=== PATIENT | male | born 1975 | race Caucasian/White ===

== ENCOUNTER → 2022-05-25 | Outpatient (CLI) | payer MEDICAID, SELFPAY ==
--- NOTE | 2022-05-25 08:06 | CPS ---
ATTEMPTED DLCO X SEVERAL ATTEMPTS BUT PT UNABLE TO PERFORM PROPER TECHNIQUE.
--- NOTE | 2022-05-25 12:24 | PFT ---
INTRODUCTION: The patient is a 46-year-old male that presents for pulmonary function studies secondary to a diagnosis of COPD. Respiratory therapy reported that the patient had difficulty with testing. Multiple attempts were made to obtain DLCO. However, that it was unable to be obtained. INTERPRETATION: Forced expiration spirometry demonstrated no evidence of a large airways obstructive ventilatory defect with a postbronchodilator FEV1/FVC of 73%. Spirograms are of suboptimal quality and terminate prior to 6 seconds, which could underestimate FVC. Body plethysmography was performed and revealed an elevated RV to 173% of predicted, indicative of underlying air trapping. Diffusing capacity was unable to be obtained. IMPRESSION: No obstruction based on spirometric values. However, there is evidence of air trapping. Diffusing capacity was unable to be obtained. Due to patient difficulty with testing, results should be viewed with caution.
== END | disposition home or self-care (01) ==
LOC: PSN 07:06
PROVIDERS: PCP Family Medicine; Referring Provider Internal Medicine; Visit Provider Internal Medicine
DX: J44.9 Chronic obstructive pulmonary disease, unspecified (principal); F17.200 Nicotine dependence, unspecified, uncomplicated
CPT/HCPCS: 94060; 94726

== ENCOUNTER → 2022-06-12 | Outpatient (CLI) | payer MEDICAID, SELFPAY | END | disposition home or self-care (01) | LOC: SL 20:08 | PROVIDERS: PCP Family Medicine; Referring Provider Internal Medicine; Visit Provider Internal Medicine | DX: G47.10 Hypersomnia, unspecified (principal) | CPT/HCPCS: 95810 ==

== ENCOUNTER → 2022-06-16 | Outpatient (CLI) | payer MEDICAID, SELFPAY ==
--- NOTE | 2022-06-16 19:10 | CT_ITS ---
STUDY: CTA HEAD AND NECK WITH CONTRAST REASON FOR EXAM: Male, 46 years old. Hemoptysis with negative bronchoscopy RADIATION DOSAGE (If Supplied By Facility): CTDIvol = ( 24.67 ) mGy, DLP = ( 1696.35 ) mGycm TECHNIQUE: CT angiography was performed with a multi-detector CT scanner. Data acquisition was obtained from the skull base through the vertex following intravenous administration of IV 75mL Isovue-370. MIP images were reconstructed from the axial data set. Post-processing of the angiographic images was performed, with multiplanar reformation and 3D reconstruction. Individualized dose optimization techniques were used for this CT. COMPARISON: No relevant priors. FINDINGS: Normal bilateral petrous carotid arteries. Normal right cavernous carotid artery with a normal supraclinoid bifurcation. Normal left cavernous carotid artery with a normal supraclinoid bifurcation. Normal right A1 segments of the anterior cerebral artery. Normal left A1 segments of the anterior cerebral artery. Normal intact anterior communicating artery (ACOM). Normal bilateral A2 segments of the anterior cerebral arteries. Normal right M1 and M2 segments of the middle cerebral arteries, with a normal M1 bifurcation. Normal left M1 and M2 segments of the middle cerebral arteries, with a normal M1 bifurcation. There is a persistent origin of the right posterior cerebral artery with absence of the posterior communicating artery (PCOM). Normal left posterior communicating artery (PCOM). Normal right vertebral artery. Hypoplastic left vertebral artery terminates as the left posterior inferior cerebellar artery. Normal basilar artery with a normal basilar bifurcation. The visualized bilateral superior cerebellar (SCA) arteries are normal. Normal bilateral P1, P2 and visualized P3 segments of the posterior cerebral arteries. There is no demonstrated aneurysm of the [place]. There is no demonstrated abnormality of the visualized brain. AORTIC ARCH: There is a bovine origin of the great vessels arising from the aortic arch with a common origin of the brachiocephalic and left common carotid artery. Normal origin of the left subclavian artery. Normal origins of the brachiocephalic, left common carotid, and left subclavian arteries. RIGHT CAROTID ARTERIES: Normal right common carotid artery (CCA). There is mild atherosclerotic plaque formation with minimal narrowing of the right carotid bulb. Normal origin of the right internal carotid (ICA) artery without a hemodynamically significant stenosis. Normal visualized cervical portion of the right internal carotid artery. Normal origin of the right external carotid artery (ECA). LEFT CAROTID ARTERIES: Normal left common carotid artery (CCA). There is mild atherosclerotic plaque formation with minimal narrowing of the left carotid bulb. Normal origin of the left internal carotid (ICA) artery without a hemodynamically significant stenosis. Normal visualized cervical portion of the left internal carotid artery. Normal origin of the left external carotid artery (ECA). VERTEBRAL ARTERIES: There is enhancement within the bilateral vertebral arteries with a small left vertebral artery, and a dominant right vertebral artery. CT/CTA Head AND Neck W/ Contrast IMPRESSION: Normal CTA Head and neck with contrast. Electronically Signed: Randy Mercer MD at 23:49 EDT ,
--- NOTE | 2022-06-16 19:10 | CT_ITS ---
INDICATION: Hemoptysis with negative bronchoscopy EXAMINATION: CT CHEST WITH CONTRAST - CT Chest W/ Contrast Injection TECHNIQUE: Helically acquired images were obtained of the chest following IV contrast. A radiation dose optimization technique was used for this scan. IV Contrast dosage and agent: COMPARISON: None. FINDINGS: LUNGS, PLEURA AND LARGE AIRWAYS: Mild emphysema. No noncalcified nodule or mass. No pleural effusion or thickening. No pneumothorax. THYROID: No thyroid lesions. HEART AND PERICARDIUM: Heart size is normal. No pericardial effusion. VESSELS: Thoracic aorta is not dilated. No aortic dissection. No obvious central pulmonary embolism although this study was not performed with the pulmonary embolism protocol. MEDIASTINUM AND KAMI: No mediastinal or hilar adenopathy. Esophagus is unremarkable. No hiatal hernia. UPPER ABDOMEN: No acute pathology. BONES: No suspicious lytic or blastic abnormality. CT/Chest WITH Contrast IMPRESSION: Mild emphysema without pneumonia, atelectasis, nodule, or mass. Electronically Signed: Randy Mercer MD at 23:41 EDT ,
[2022-06-16 19:41] LABS: EGFR FINGERSTICK > 60.0000 mL/min (>60)
== END | disposition home or self-care (01) ==
LOC: CT 19:09
PROVIDERS: PCP Family Medicine; Referring Provider Internal Medicine; Visit Provider Internal Medicine
DX: R04.2 Hemoptysis (principal); J44.9 Chronic obstructive pulmonary disease, unspecified; F17.200 Nicotine dependence, unspecified, uncomplicated; R06.83 Snoring
CPT/HCPCS: 70496; 70498; 71260; Q9967

== ENCOUNTER → 2022-06-16 | Outpatient (CLI) | payer MEDICAID, SELFPAY | END | disposition home or self-care (01) | LOC: PSN 19:08 | PROVIDERS: PCP Family Medicine; Referring Provider Internal Medicine; Visit Provider Internal Medicine | DX: J44.9 Chronic obstructive pulmonary disease, unspecified (principal) ==

== ENCOUNTER 2022-07-10 09:54 | Emergency (ER) | payer MEDICAID, SELFPAY ==
[2022-07-10 09:55] VITALS: BP 114/76; PULSE 97; RESP 18; TEMP 36.9; O2SAT 98; BMI 31.3
--- NOTE | 2022-07-10 11:30 | EKG12_ITS ---
Test Reason : GENERAL Blood Pressure : / mmHG Vent. Rate : 086 BPM Atrial Rate : 086 BPM P-R Int : 190 ms QRS Dur : 092 ms QT Int : 352 ms P-R-T Axes : 018 048 033 degrees QTc Int : 421 ms Normal sinus rhythm Normal ECG Confirmed by SIOBHAN BUSTILLOS, HENRI ([id number]), associate entertainment editor FAUSTO ARAUJO ([id number]) on 07/12/2022 2:12:32 PM Referred By: Confirmed By:HENRI MCCANN MD
[2022-07-10] MEDS: Ondansetron 4 MG/2 ML Vial IV (11:48)
[2022-07-10] MEDS: 0.9% Normal Saline 1,000 ML 1000 ML IV (11:49)
[2022-07-10 12:00] LABS: Absolute Neutrophil Count 7.6 X10^3/uL (2.0-7.7); Basophil# 0.03 X10^3/uL; Basophil% 0.3 % (0-1); Eosinophil# 0.06 X10^3/uL; Eosinophils% 0.7 % (0-5); Hematocrit 46.5 % (40-54); Hemoglobin 15.8 g/dL (13.0-16.5); Lymphocyte % 7.9 % (19-41); Mean Corpuscular Hgb 30.8 pg (27.0-32.0); Mean Corpuscular Volume 90.6 fL (80-94); Mean Platelet Vol. 8.2 fl (6.2-12.0); Monocyte# 0.45 X10^3/uL; Monocyte% 5.1 % (0-10); NRBC Flagged by Analyzer 0 % (0-5); Neutrophil # 7.57 X10^3/uL (2.7-7.7); Neutrophil % 85.5 % (47-70); Platelet Count 251 K/mm3 (150-450); RBC Distribution Width CV 13.7 % (11.6-14.6); RBC Distribution Width SD 45.4 fl (35.1-43.9); Red Blood Count 5.13 M/mm3 (4.6-6.2); White Blood Count 8.9 K/mm3 (4.4-11.0)
--- NOTE | 2022-07-10 12:15 | RAD_ITS ---
STUDY: X-RAY CHEST REASON FOR EXAM: Male, 47 years old. Fever and cough TECHNIQUE: Single AP portable view of the chest. COMPARISON: None. FINDINGS: The lungs are clear and expanded. There is no demonstrated pleural abnormality. Normal size heart. Normal mediastinum and shorty. Normal visualized pulmonary arteries. Normal visualized aortic arch and descending thoracic aorta. Normal visualized thoracic spine. Normal visualized ribs, clavicles, and shoulders. There is no demonstrated abnormality of the visualized soft tissue structures of the upper abdomen. RAD/Chest 1 View (Portable) IMPRESSION: No acute pulmonary process Electronically Signed: Shelton Ramon MD at 13:28 EDT ,
[2022-07-10 12:18] LABS: AST(SGOT) 19 U/L (15-37); Alanine Aminotransfer ALT/SGPT 32 U/L (16-61); Albumin, Serum 3.7 g/dL (3.2-5.0); Alkaline Phosphatase 94 U/L (45-117); Anion Gap 7 (5-15); BUN 17 mg/dL (7-18); Bilirubin, Direct 0.25 mg/dL (0.00-0.30); Calcium,Total 8.8 mg/dL (8.5-10.1); Chloride 102 mmol/L (98-107); Creatinine, Serum 1.21 mg/dL (0.70-1.30); EST Glomerular Filtration Rate 68 mL/min (>60); Est Glom Filt Rate - Afr Amer 82 mL/min (>60); Estimated Creatinine Clearance 81.95 ml/min; Globulin 3.8 g/dL (2.2-4.2); Glucose 106 mg/dL (74-106); Lipase 25 U/L (13-75); Potassium 3.5 mmol/L (3.5-5.1); Protein, Total 7.5 g/dL (6.4-8.2); Sodium Level 136 mmol/L (136-145); Troponin-I HS 3 pg/mL (3.0-78.0)
[2022-07-10 13:00] VITALS: RESP 18
[2022-07-10] MEDS: 0.9% Normal Saline 1,000 ML 150 ML IV (13:46)
[2022-07-10] MEDS: Ketorolac 30 MG/ML Syringe IV (14:13)
--- NOTE | 2022-07-10 14:49 | EX.ED.DYSGE1 ---
HPI History of Present Illness Chief Complaint: Nausea/Vomiting Informant: patient Onset/Context/Timing Onset: Yesterday Narrative Narrative: Patient presents secondary to nausea and vomiting. He states yesterday during the day he had left upper chest pain with shortness of breath. He states later yesterday afternoon he started with nausea and vomiting at that time his left upper chest pain seem to dissipate. He now has nausea, vomiting, and diarrhea that has been constant since yesterday. He states he has pain all over his body and is concerned he is dehydrated. 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) Essential hypertension Family history of ischemic heart disease and other diseases of the circulatory system GERD (gastroesophageal reflux disease) Hemoptysis Hyperlipidemia Nicotine addiction Nicotine dependence, cigarettes, uncomplicated Noncompliance with medications Old myocardial infarction Pneumonia Presence of stent in coronary artery (~02/01/22) Primary snoring Stroke Unspecified systolic (congestive) heart failure Home Medications albuterol sulfate 2.5 mg/3 mL (0.083 %) solution for nebulization 2.5 mg inhalation Q4H PRN 05/22/22 [History Last Taken Unknown] albuterol sulfate 90 mcg/actuation aerosol inhaler 2 puff inhalation Q4H PRN 05/22/22 [History Last Taken Unknown] aspirin 81 mg tablet,delayed release 81 mg PO DAILY 05/22/22 [History Last Taken Unknown] budesonide 0.5 mg/2 mL suspension for nebulization 0.5 mg inhalation BID 05/22/22 [History Last Taken Unknown] clopidogrel 75 mg tablet 75 mg PO DAILY 05/22/22 [History Last Taken Unknown] magnesium oxide 250 mg PO DAILY 05/22/22 [History Last Taken Unknown] nicotine 10 mg inhalation cartridge (Nicotrol) 1 inh inhalation ONCE PRN nicotine cravings #168 ea 05/22/22 [Rx Last Taken Unknown] omeprazole 40 mg capsule,delayed release 40 mg PO DAILY 05/22/22 [History Last Taken Unknown] rosuvastatin 10 mg tablet 10 mg PO DAILY 05/22/22 [History Last Taken Unknown] carvedilol phosphate 20 mg capsule,[id number] multiphase 20 mg PO DAILY 06/15/22 [History Last Taken Unknown] hydrochlorothiazide 25 mg tablet 25 mg PO DAILY #30 tabs 06/20/22 [Rx Last Taken Unknown] dicyclomine 20 mg tablet 20 mg PO BID PRN abdominal pain #14 tabs 07/10/22 [Rx Last Taken Unknown] ondansetron 4 mg disintegrating tablet 4 mg PO Q8H PRN PRN Nausea #10 tabs 07/10/22 [Rx Last Taken Unknown] Allergy/AdvReac Type Severity Reaction Status Date / Time amlodipine AdvReac Intermediate Severe Verified 06/20/22 11:30 headache Family History Mother Cancer Ovarian Grandmother Cancer breast cancer. Heart disease Myocardial infarction Grandfather Cancer Lung Fibromyalgia Father Cancer Surgical History H/O arthroscopic knee surgery H/O hand surgery H/O inguinal hernia repair History of left heart catheterization (LHC) (~08/03/16) Presence of coronary angioplasty implant and graft (~02/01/22) Social History Smoking Status: Current every day smoker tobacco type: cigarettes alcohol intake: never substance use type: does not use caffeine: Yes (8-12 servings per day) ROS ROS ED Constitutional Constitutional ED: Denies chills or fever(s) Eyes Eyes: Denies change in vision or discharge from eye(s) ENT ENT ED: Denies discharge from eye(s), rhinorrhea or sore throat Cardiovascular Cardiovascular: Reports chest pain; Denies palpitations Respiratory/Chest Respiratory/Chest: Reports dyspnea; Denies cough Gastrointestinal Gastrointestinal: Reports abdominal pain, diarrhea, nausea and vomiting Genitourinary Genitourinary ED: Denies dysuria Musculoskeletal Musculoskeletal: Reports myalgias; Denies back pain or extremity pain Integumentary Denies Abrasions or rash Neurologic Neurologic: Reports headache(s); Denies weakness Psychiatric Psychiatric: Denies anxiety or depression Allergic/Immunologic Allergic/Immunologic ED: Denies lip swelling or urticaria EXAM Physical Exam Const Vital Signs: 07/10/22 09:55 Temperature 98.5 F Temperature Source Temporal Pulse Rate 97 Respiratory Rate 18 Blood Pressure 114/76 Blood Pressure Mean 88 Pulse Ox 98 Oxygen Delivery Method Room Air Positive well nourished and well developed General Appearance ED: well developed HEENT Reports dry mucous membranes Mouth ED: Yes dry mucous membranes Mouth: dry mucous membranes Eyes EOMs intact bilaterally Chest Wall inspection of chest normal and palpation of chest normal Resp normal respiratory effort and clear to auscultation bilaterally Cardio regular rate and regular rhythm GI GI Narrative: Abdomen soft and nondistended. Mild diffuse tenderness. No guarding or rebound. Hypoactive bowel sounds. Extremity normal to inspection Neuro oriented x3 and no sensory deficits noted Motor Exam: strength 5/5 throughout Psych mental status grossly normal MDM MDM MDM Narrative Medical decision making narrative: Patient was given IV fluids along with Zofran. He was initially ordered morphine but declined it. Labwork obtained to evaluate for leukocytosis, anemia, and electrolyte derangement. EKG obtained to evaluate for cardiac arrhythmia/ischemia. Chest x-ray obtained to evaluate for acute lung pathology, cardiac size, or mediastinal abnormality. History & Record Review Discussion w/independent historian: Patient Additional record(s) reviewed:: Prior labs Lab Data Attestation: I reviewed the patient's lab results. Labs: Laboratory Results - last 24 hr 07/10/22 07/10/22 11:45 11:45 WBC 8.9 RBC 5.13 Hgb 15.8 Hct 46.5 MCV 90.6 MCH 30.8 MCHC 34.0 RDW Std Deviation 45.4 H RDW Coeff of Zuly 13.7 Plt Count 251 MPV 8.2 Immature Gran % (Auto) 0.500 Neut % (Auto) 85.5 H Lymph % (Auto) 7.9 L [place] % (Auto) 5.1 Eos % (Auto) 0.7 Baso % (Auto) 0.3 Absolute Neuts (auto) 7.6 Absolute Lymphs (auto) 0.70 L Nucleated RBC % 0 Sodium 136 Potassium 3.5 Chloride 102 Carbon Dioxide 27.0 Anion Gap 7 BUN 17 Creatinine 1.21 Estim Creat Clear Calc 81.95 Est GFR (MDRD) Af Amer 82 Est GFR (MDRD) Non-Af 68 BUN/Creatinine Ratio 14.0 Glucose 106 Calcium 8.8 Total Bilirubin 1.30 H Direct Bilirubin 0.25 AST 19 ALT 32 Alkaline Phosphatase 94 Troponin I High Sens 3 Total Protein 7.5 Albumin 3.7 Globulin 3.8 Lipase 25 Radiography Chest X-Ray - ED: 1 View, Read by ED Physician and No Acute Disease Diagnostic Testing: Clinical Impression(s) from Imaging Studies Chest X-Ray 07/10/22 12:15 IMPRESSION: No acute pulmonary process Electronically Signed: Shelton Ramon MD at 13:28 EDT Reading Location ID and State: [facility] / [place] , Service support , EKG Initial EKG: Attestation: I personally reviewed and interpreted this EKG as follows: Interpretation: Sinus Rhythm (Sinus 86 with no acute ischemia.) Treatment and Re-Evaluation :: CBC is unremarkable with normal white count. Hemoglobin is normal at 15.8. He does have a slight left shift with 85% neutrophils. Chemistry studies reveal a creatinine of 1.21. LFTs reveal total bili 1.30, otherwise values are normal. Lipase is 25. Troponin is normal at 3. After lab work does return with normal renal function patient is given a dose of Toradol. On repeat evaluation patient does feel improved. Prescription for Zofran and Bentyl will be sent to the pharmacy for him. Return instructions are given. Discharge Plan Triage Chief Complaint: Nausea/Vomiting ED Provider: Yanet Shea Dx/Rx/DC Orders Clinical Impression: Gastroenteritis Instructions: ED Gastroenteritis, Viral (Adult) Prescriptions: New ondansetron 4 mg tablet,disintegrating 4 mg PO Q8H PRN PRN (Reason: Nausea) Qty: 10 0RF dicyclomine 20 mg tablet 20 mg PO BID PRN (Reason: abdominal pain) Qty: 14 0RF No Action omeprazole 40 mg capsule,delayed release(DR/EC) 40 mg PO DAILY clopidogrel 75 mg tablet 75 mg PO DAILY rosuvastatin 10 mg tablet 10 mg PO DAILY albuterol sulfate 90 mcg/actuation HFA aerosol inhaler 2 puff inhalation Q4H PRN albuterol sulfate 2.5 mg /3 mL (0.083 %) solution for nebulization 2.5 mg inhalation Q4H PRN budesonide 0.5 mg/2 mL suspension for nebulization 0.5 mg inhalation BID magnesium oxide 250 mg magnesium tablet 250 mg PO DAILY aspirin 81 mg tablet,delayed release (DR/EC) 81 mg PO DAILY Nicotrol 10 mg cartridge 1 inh inhalation ONCE PRN (Reason: nicotine cravings) Qty: 168 8RF carvedilol phosphate 20 mg capsule, ER multiphase 24 hr 20 mg PO DAILY Rx Instructions: must administer with a meal/food hydrochlorothiazide 25 mg tablet 25 mg PO DAILY Qty: 30 11RF Primary Care Provider: Care Physician,No Primary Referrals: Denise Banks, [Med Staff - Industrial Health And Safety Professor] - As Needed Care Physician,No Primary [Primary Care Provider] - Disposition Disposition: Home, Self Care
[2022-07-10 15:03] VITALS: RESP 18
== END 2022-07-10 15:15 | disposition home or self-care (01) ==
PROVIDERS: Emergency Provider Emergency Medicine; Visit Provider Emergency Medicine
DX: K52.9 Noninfective gastroenteritis and colitis, unspecified (principal); J43.9 Emphysema, unspecified; I10 Essential (primary) hypertension; I25.10 Atherosclerotic heart disease of native coronary artery without angina pectoris; Z79.899 Other long term (current) drug therapy; F17.210 Nicotine dependence, cigarettes, uncomplicated; R07.9 Chest pain, unspecified; R06.00 Dyspnea, unspecified
CPT/HCPCS: 71045; 80048; 80076; 83690; 84484; 85025; 93005; 96361; 96374; 96375; 99284; J7030; J2405

== ENCOUNTER → 2022-07-10 | Outpatient (CLI) | payer MEDICAID, SELFPAY | END | disposition home or self-care (01) | LOC: SL 09:57 | PROVIDERS: PCP Family Medicine; Visit Provider Internal Medicine | DX: G47.10 Hypersomnia, unspecified (principal); R06.83 Snoring ==

== ENCOUNTER → 2022-07-12 | Outpatient (CLI) | payer MEDICAID, SELFPAY ==
[2022-07-12 15:31] LABS: Anion Gap 7 (5-15); BUN 12 mg/dL (7-18); Calcium,Total 9.5 mg/dL (8.5-10.1); Chloride 106 mmol/L (98-107); EST Glomerular Filtration Rate 69 mL/min (>60); Est Glom Filt Rate - Afr Amer 83 mL/min (>60); Glucose 98 mg/dL (74-106); Potassium 3.4 mmol/L (3.5-5.1); Sodium Level 140 mmol/L (136-145)
== END | disposition home or self-care (01) ==
LOC: LAB 13:26
PROVIDERS: Referring Provider Internal Medicine Cardiovascular Disease; Visit Provider Internal Medicine Cardiovascular Disease
DX: I11.0 Hypertensive heart disease with heart failure (principal); I50.20 Unspecified systolic (congestive) heart failure
CPT/HCPCS: 36415; 80048

== ENCOUNTER → 2022-07-18 | Outpatient (CLI) | payer MEDICAID, SELFPAY ==
--- NOTE | 2022-07-18 06:07 | ECHOD_ITS ---
Reason For Study: HEART DISEASE Procedure This was a 2D Doppler, Color Flow transthoracic echocardiogram. Exam performed in department. Left Ventricle Normal size and thickness. The left ventricular ejection fraction is 55 %. Normal diastololic function. Right Ventricle Normal right ventricle. Atria The left and right atria are normal. Mitral Valve The mitral valve is structurally normal. No prolapse or stenosis seen. Tricuspid Valve Trivial tricuspid valve insufficiency. Unable to estimate RV systolic pressure due to insufficient tricuspid regurgitant envelope. Aortic Valve Normal aortic valve. Pulmonic Valve The pulmonic valve is not well visualized. Great Vessels Normal sized aortic root. Pericardium/Pleural No pericardial effusion. MMode/2D Measurements & Calculations LVIDd: 4.9 cm IVSd: 0.90 cm Ao root diam: 3.1 cm LVIDs: 3.7 cm LVPWd: 1.0 cm RVDd: 2.6 cm FS: 25.0 % LAV(MOD-bp): 42.9 ml LVAd ap4: 34.6 cm2 SV(MOD-sp4): 52.1 ml LAV(MOD-bp) Indexed: 19.3 ml/m2 LVLd ap4: 9.2 cm LAV(MOD-sp2): 58.3 ml EDV(MOD-sp4): 108.1 ml LAV(MOD-sp4): 30.2 ml EDV(sp4-el): 110.2 ml LVAs ap4: 22.3 cm2 LVLs ap4: 7.7 cm ESV(MOD-sp4): 56.0 ml ESV(sp4-el): 55.2 ml EF(MOD-sp4): 48.2 % EF(sp4-el): 49.9 % SV(sp4-el): 55.1 ml LA A4 area: 13.9 cm2 LA dimension(2D): 3.0 cm RA A4 area: 14.5 cm2 TAPSE: 2.5 cm Time Measurements MV dec time: 0.20 sec Doppler Measurements & Calculations MV E max dale: 70.1 cm/sec Lat Peak E' [place]: 11.4 cm/sec Med Peak E' [place]: 7.7 cm/sec MV A max dale: 59.2 cm/sec E/E' lat: 6.1 E/E' med: 9.1 MV E/A: 1.2 MV V2 max: 94.8 cm/sec Ao V2 max: 119.1 cm/sec MV max P.6 mmHg MV dec slope: 360.1 cm/sec2 Ao max P.7 mmHg MV V2 mean: 61.3 cm/sec Ao V2 mean: 83.2 cm/sec MV mean P.6 mmHg Ao mean P.1 mmHg MV V2 VTI: 32.0 cm Ao V2 VTI: 25.3 cm AV (velocity ratio): 0.73 LV V1 max: 85.5 cm/sec PA V2 max: 92.4 cm/sec LV V1 max P.9 mmHg PA V2 mean: 59.8 cm/sec LV V1 mean P.6 mmHg LV V1 mean: 58.1 cm/sec LV V1 VTI: 18.6 cm ECHO/Echo Complete Interpretation Summary The left ventricular ejection fraction is 55 %. Ordering Physician: Bria Olsen Referring Physician: LUISA PCP Performed By: Debo Agarwal RCS
--- NOTE | 2022-07-18 09:06 | STRESSREP ---
Stress Test Report Date: 07/18/2022 Procedure: Pharmacologic stress nuclear imaging study Indications: Chest pain Consent: Per the patient Procedure: The patient underwent pharmacologic (Regadenoson 0.4mg ) evaluation with a peak heart rate of 86 beats per minute (50%predicted maximal heart rate) and a peak blood pressure of 124/74 mmHg. The baseline ECG demonstrated normal sinus rhythm. The peak pharmacologic ECG demonstrated no ischemic changes. The patient was initially walked on the treadmill according to the Rito protocol however the test was changed to Lexiscan after he failed to achieve the target heart rate. On the treadmill, he exercised according to the Rito protocol for 2 minutes and 42 seconds achieving a work level of 4.6 METS. The heart rate vinita to 137 bpm representing 79% of the maximal age-predicted heart rate. Resting blood pressure vinita to a maximum of 140/72 mmHg. The protocol was changed to Rito protocol secondary to dyspnea and failure to achieve target heart rate. There were no cardiac dysrhythmias pretest, during pharmacologic infusion, or recovery. The patient complained of mild chest tightness with infusion of Lexiscan. The patient was injected with 14.7 millicuries of technetium 99m Cardiolite and subsequently rest SPECT Cardiolite nuclear imaging was obtained in the horizontal long, vertical long, and short axis views. The patient underwent pharmacologic (Regadenoson) evaluation. The patient was injected with 44.1 millicuries of technetium 99m Cardiolite and subsequently stress SPECT Cardiolite nuclear imaging was obtained in the horizontal long, vertical long, and short axis views. A gated Cardiolite study at peak stress was obtained. The examination was stopped secondary to completion of protocol. Rest and stress SPECT Cardiolite nuclear imaging status post realignment, normalization, and attenuation correction demonstrate mildly decreased perfusion at the apex which remains unchanged. There is end systolic thickening and brightening. The gated Cardiolite study demonstrates myocardial thickening and inward wall motion. The reported LVEF is 59%. Impression: 1. Pharmacologic (Regadenoson) evaluation 2. Peak pharmacologic ECG with no ischemic changes. 3. There were no cardiac dysrhythmias pretest, during pharmacologic infusion, or recovery. 5. Mildly reduced tracer uptake at the apex both at rest as well as post pharmacologic infusion, likely representing apical thinning. 6. The gated Cardiolite study reports an LVEF of 59%. This note was generated with Dragon dictation software. It may contain incorrect words, spelling, and punctuation that were not noted in checking the note before signing.
== END | disposition home or self-care (01) ==
PROVIDERS: Visit Provider Internal Medicine Cardiovascular Disease
DX: I25.10 Atherosclerotic heart disease of native coronary artery without angina pectoris (principal); Z95.5 Presence of coronary angioplasty implant and graft; E78.5 Hyperlipidemia, unspecified; I10 Essential (primary) hypertension
CPT/HCPCS: 78452; 93017; 93306; A9500; A4216; J2785

== ENCOUNTER → 2022-08-14 | Outpatient (CLI) | payer MEDICAID, SELFPAY ==
--- NOTE | 2022-08-15 08:26 | PFT ---
INTRODUCTION: The patient is a 47-year-old male that presents for pulmonary function studies secondary to a diagnosis of COPD. Respiratory therapy reported that the patient was extremely short of breath and struggled to do most of the testing. He was unable to do DLCO. INTERPRETATION: Forced expiration spirometry demonstrated the presence of a severe obstructive ventilatory impairment based off of a postbronchodilator FEV1/FVC of 67% and a postbronchodilator FEV1 of 44% predicted. However, the patient gave variable, inconsistent effort with testing. Body plethysmography demonstrated a decreased TLC to 5.57 L, 76% of predicted, indicative of a mild restrictive ventilatory impairment. Diffusing capacity was unable to be obtained. IMPRESSION: Spirometry was suggestive of an obstructive ventilatory impairment. However, the patient gave inconsistent, variable effort with testing. Lung volumes was suggestive of a mild restrictive ventilatory impairment. Results should be viewed with caution.
== END | disposition home or self-care (01) ==
PROVIDERS: Referring Provider Internal Medicine; Visit Provider Internal Medicine
DX: J44.9 Chronic obstructive pulmonary disease, unspecified (principal)
CPT/HCPCS: 94060; 94726; 94729

== ENCOUNTER → 2022-09-13 | Outpatient (CLI) | payer MEDICAID, SELFPAY ==
[2022-09-13 13:30] LABS: Hematocrit 45.9 % (40-54); Hemoglobin 16.4 g/dL (13.0-16.5); Mean Corp Hgb Conc 35.7 g/dL (32-36); Mean Corpuscular Hgb 32.5 pg (27.0-32.0); Mean Corpuscular Volume 91.1 fL (80-94); Mean Platelet Vol. 8.3 fl (6.2-12.0); Platelet Count 299 K/mm3 (150-450); RBC Distribution Width CV 13.4 % (11.6-14.6); RBC Distribution Width SD 44.6 fl (35.1-43.9); Red Blood Count 5.04 M/mm3 (4.6-6.2)
[2022-09-13 13:44] LABS: Prothrombin Time (Protime)PT. 12.7 SECONDS (11.7-14.9)
[2022-09-13 13:45] LABS: Partial Thromboplast Time 30.4 Seconds (24.1-36.2)
[2022-09-13 14:17] LABS: Anion Gap 7 (5-15); BUN 15 mg/dL (7-18); BUN/Creat Ratio 11.9 RATIO (10-20); Calcium,Total 9.7 mg/dL (8.5-10.1); Chloride 105 mmol/L (98-107); Creatinine, Serum 1.26 mg/dL (0.70-1.30); EST Glomerular Filtration Rate 65 mL/min (>60); Est Glom Filt Rate - Afr Amer 79 mL/min (>60); Glucose 92 mg/dL (74-106); Potassium 3.9 mmol/L (3.5-5.1); Sodium Level 137 mmol/L (136-145)
== END | disposition home or self-care (01) ==
LOC: LAB 12:30
PROVIDERS: Referring Provider Internal Medicine Cardiovascular Disease; Visit Provider Internal Medicine Cardiovascular Disease
DX: I25.10 Atherosclerotic heart disease of native coronary artery without angina pectoris (principal); Z95.5 Presence of coronary angioplasty implant and graft; R07.9 Chest pain, unspecified
CPT/HCPCS: 36415; 80048; 85027; 85610; 85730

== ENCOUNTER → 2022-09-25 | Day surgery (SDC) | payer MEDICAID, SELFPAY ==
[2022-09-18 07:34] VITALS: BMI 31.1
--- NOTE | 2022-09-25 11:10 | CL.D_ITS ---
Patient Name: MARIBELL MAZARIEGOS Study Date: 09/25/2022 Performing: Griffin Howell MD Ht: 72 inches 182.88 cm : 1975 Wt: 230.01 lbs 104.33 kg Age: 47 Gender: male BSA: 2.26 PROCEDURE(S) PERFORMED [id number])LHC/COR/LV CLINICAL PROFILE AND INDICATIONS Indications: Stable Known CAD Heart Failure: None Stress/Imaging Stress/Image Study Performed: No CAD Presentations: Stable angina. CONCLUSIONS Known coronary artery disease previously stented LAD ramus intermedius and right coronary artery. Patent stents. No high-grade stenosis noted. Preserved ejection fraction. RECOMMENDATIONS Medical therapy DESCRIPTION OF PROCEDURE The patient arrived to the procedure lab. The risks and benefits of the procedure as well as a full description of our services here and current unavailability of surgical backup were fully explained to the patient and/or their significant other prior to the catheterization. The Timeout was completed, verifying the correct patient and procedure. The patient's procedural site was prepped and draped in the usual fashion. Local anesthetic was given subcutaneously to right groin region with Lidocaine 2%. Using a modified Seldinger technique, arterial access was obtained via the right radial artery, a 6Fr sheath was inserted. Left Coronary Artery selective angiography was performed in multiple views using a 5 Fr. 4.0 [place] catheter. Right Coronary Artery selective angiography was then performed in multiple views using a 5 Fr. 4.0 [place] catheter. Left Ventriculography was performed in MCCULLOUGH projection using a 5 Fr. Pigtail catheter. LV to AO pullback pressures were then recorded.The arterial sheath was pulled and a TR Band was applied for hemostasis - 15CC AIR CORONARY ANGIOGRAPHY DOMINANCE: Right Dominant LEFT HEART ASSESSMENT Left Ventricular Ejection Fraction: by LV Gram 60 % Normal LV wall motion Normal Left Ventricular systolic function LEFT MAIN: Angiographically normal LEFT ANTERIOR DESCENDING ARTERY: Mild luminal irregularities less than 30% CIRCUMFLEX ARTERY: Mild disease noted proximally and then an area of aneurysmal dilatation and then the vessel goes on with mild luminal irregularities present. RAMUS: Previously placed stent is patent. RIGHT CORONARY ARTERY: Previously stented vessel is patent with no evidence of significant stenosis and mild distal disease present. COMPLICATIONS No Complications PROCEDURE MEDICATIONS Fentanyl 50 mcg IV Versed 1 mg IV Versed 1 mg IV Fentanyl 25 mcg IV Oxygen: 2 L/min via nasal cannula Baby Aspirin (81mg) 1 Tabs PO @ 09/25/2022 07:37:36 Heparin given IA 09/25/2022 10:14:34 Plavix 75 mg PO 09/25/2022 07:37:24 Verapamil 2.5mg, Ntg 100mcgs, 3000 units of Heparin given IA 09/25/2022 10:14:34 SUMMARY OF HEMODYNAMIC DATA Time AIR REST ECG 07:36:52 AO 80/57 (68) SA 10:18:01 LV 105/7, 13 10:22:49 LV 99/1, 5 10:22:55 LV 104/3, 8 10:23:25 LVp 98/7, 8 10:23:27 LV 101/3, 8 10:23:31 AOp 100/54 (75) 10:23:32 Signed By Griffin Howell MD On 09/25/2022 11:09:59 Griffin Howell MD
== END | disposition home or self-care (01) ==
PROVIDERS: Referring Provider Internal Medicine Cardiovascular Disease; Visit Provider Internal Medicine Cardiovascular Disease
DX: I25.10 Atherosclerotic heart disease of native coronary artery without angina pectoris (principal); J44.9 Chronic obstructive pulmonary disease, unspecified; Z95.5 Presence of coronary angioplasty implant and graft; E78.5 Hyperlipidemia, unspecified; K21.9 Gastro-esophageal reflux disease without esophagitis; I10 Essential (primary) hypertension; F17.200 Nicotine dependence, unspecified, uncomplicated; F41.9 Anxiety disorder, unspecified; I25.2 Old myocardial infarction; Z86.73 Personal history of transient ischemic attack (TIA), and cerebral infarction without residual deficits; Z79.82 Long term (current) use of aspirin; Z82.49 Family history of ischemic heart disease and other diseases of the circulatory system
CPT/HCPCS: 93458; 99152; 99153; J7040; Q9967; C1769; C1894

== ENCOUNTER → 2022-10-05 | Outpatient (CLI) | payer MEDICAID, SELFPAY ==
[2022-10-05 09:56] LABS: Hematocrit 44.8 % (40-54); Hemoglobin 15.8 g/dL (13.0-16.5); Mean Corp Hgb Conc 35.3 g/dL (32-36); Mean Corpuscular Volume 90.9 fL (80-94); Mean Platelet Vol. 8.1 fl (6.2-12.0); Platelet Count 279 K/mm3 (150-450); RBC Distribution Width CV 13.5 % (11.6-14.6); RBC Distribution Width SD 44.8 fl (35.1-43.9); Red Blood Count 4.93 M/mm3 (4.6-6.2); White Blood Count 8.6 K/mm3 (4.4-11.0)
[2022-10-08 12:07] LABS: Alternaria alternata <0.10 kU/L (Class 0); Bermuda Grass <0.10 kU/L (Class 0); Bluegrass, Kentucky <0.10 kU/L (Class 0); Cat Hair/Dander, Standard <0.10 kU/L (Class 0); D farinae Mite <0.10 kU/L (Class 0); D pteronyssinus <0.10 kU/L (Class 0); Dog Epithelia <0.10 kU/L (Class 0); Elm, American White <0.10 kU/L (Class 0); Mouse Urine <0.10 kU/L (Class 0); Oak, White <0.10 kU/L (Class 0); Plantain, English <0.10 kU/L (Class 0); Ragweed, Short/Common <0.10 kU/L (Class 0)
[2022-10-08 21:07] LABS: Aspirgillus flavus Negative (Neg:<1:1); Aspirgillus fumigatus Negative (Neg:<1:1); Aspirgillus niger Negative (Neg:<1:1); Cytoplasmic Ab (C-ANCA) <1:20 titer (Neg:<1:20); Immunoglobulin E 22 IU/mL (6-495); Perinuclear Ab (P-ANCA) <1:20 titer (Neg:<1:20)
== END | disposition home or self-care (01) ==
PROVIDERS: Referring Provider Nurse Practitioner Acute Care; Visit Provider Nurse Practitioner Acute Care
DX: R05.3 Chronic cough (principal); J30.9 Allergic rhinitis, unspecified
CPT/HCPCS: 36415; 82785; 85027; 86003; 86256; 86606; 87070; 87205

== ENCOUNTER → 2022-11-10 | Outpatient (CLI) | payer MEDICAID, SELFPAY ==
--- NOTE | 2022-11-10 13:04 | VDUE_ITS ---
Reason For Study: Pain LUE Right Proximal Left Proximal Right subclavian vein is spontaneous, widely Left jugular vein is spontaneous, widely patent, phasic, with no intraluminal patent, phasic, with no intraluminal echogenicity noted. echogenicity noted. Left subclavian vein is spontaneous, widely patent, phasic, with no intraluminal echogenicity noted. Left Arm Left axillary vein is spontaneous, patent, phasic, competent, compressible and demonstrates augmentation. Left brachial vein is compressible. Left cephalic vein is compressible. Left basilic vein is compressible. Left Lower Arm Left radial vein is compressible. Left ulnar vein is compressible. VL/Venous Duplex US, Unilateral Interpretation Summary Deep veins of the left upper extremity are patent and compressible segmentally. There is no evidence of deep vein thrombosis. Superficial veins of the left upper extremity are patent and compressible segme ntally. There is no evidence of superficial vein thrombosis. Ordering Physician: Bria Olsen Referring Physician: Bria Olsen Performed By: Kanika Villegas, GARO, RVT ???
== END | disposition home or self-care (01) ==
LOC: CVS 13:04
PROVIDERS: Referring Provider Internal Medicine Cardiovascular Disease; Visit Provider Internal Medicine Cardiovascular Disease
DX: M79.602 Pain in left arm (principal); I25.10 Atherosclerotic heart disease of native coronary artery without angina pectoris; Z95.5 Presence of coronary angioplasty implant and graft
CPT/HCPCS: 93971

== ENCOUNTER → 2023-01-22 | Outpatient (CLI) | payer MEDICAID, SELFPAY ==
--- NOTE | 2023-01-22 14:33 | RAD_ITS ---
INDICATION: SOB, cough EXAMINATION/TECHNIQUE: X-RAY - XR Chest 2 Views COMPARISON: Prior study dated: 07/10/2022 FINDINGS: LINES/DEVICES: None. LUNGS: Mild linear atelectasis or scarring in the right lower lung. No focal infiltrate is seen. No evidence of pleural effusions. MEDIASTINUM AND CARDIOVASCULAR STRUCTURES: Cardiac silhouette not enlarged. Central airways and mediastinal contour are unremarkable. BONES AND SOFT TISSUES: Unremarkable. RAD/Chest PA and Lateral IMPRESSION: No radiographic evidence of acute cardiopulmonary disease. Electronically Signed: Glen Alston MD at 22:05 EST ,
[2023-01-22 14:55] LABS: Absolute Lymphocyte Count 2.43 X10^3/uL (0.83-4.51); Absolute Neutrophil Count 7.4 X10^3/uL (2.0-7.7); Basophil# 0.04 X10^3/uL; Basophil% 0.4 % (0-1); Eosinophil# 0.26 X10^3/uL; Eosinophils% 2.3 % (0-5); Hematocrit 43.9 % (40-54); Hemoglobin 14.8 g/dL (13.0-16.5); Lymphocyte # 2.43 X10^3/ul (0.83-4.51); Lymphocyte % 21.8 % (19-41); Mean Corp Hgb Conc 33.7 g/dL (32-36); Mean Corpuscular Hgb 30.8 pg (27.0-32.0); Mean Corpuscular Volume 91.3 fL (80-94); Monocyte# 0.96 X10^3/uL; Monocyte% 8.6 % (0-10); NRBC Flagged by Analyzer 0 % (0-5); Neutrophil # 7.41 X10^3/uL (2.7-7.7); Neutrophil % 66.5 % (47-70); Platelet Count 301 K/mm3 (150-450); RBC Distribution Width CV 13.2 % (11.6-14.6); RBC Distribution Width SD 44.1 fl (35.1-43.9); Red Blood Count 4.81 M/mm3 (4.6-6.2); White Blood Count 11.1 K/mm3 (4.4-11.0)
[2023-01-22 15:08] LABS: BNP,B-Type NATRIURETIC PEPTIDE 11.8 pg/mL (0-100)
[2023-01-22 15:12] LABS: Amylase 53 U/L (25-115); Anion Gap 5 (5-15); BUN 14 mg/dL (7-18); BUN/Creat Ratio 12.4 RATIO (10-20); Calcium,Total 9.2 mg/dL (8.5-10.1); Chloride 108 mmol/L (98-107); Creatinine, Serum 1.13 mg/dL (0.70-1.30); EST Glomerular Filtration Rate 73 mL/min (>60); Est Glom Filt Rate - Afr Amer 89 mL/min (>60); Glucose 85 mg/dL (74-106); Lipase 33 U/L (13-75); Magnesium 2.2 mg/dL (1.6-2.6); Potassium 3.9 mmol/L (3.5-5.1); Sodium Level 140 mmol/L (136-145); Troponin-I HS 7 pg/mL (3.0-78.0)
[2023-01-22 17:05] LABS: D-Dimer Quantitative (DVT/PE) < 0.27 FEU/ug/m (0.27-0.49)
== END | disposition home or self-care (01) ==
PROVIDERS: Referring Provider Nurse Practitioner Family; Visit Provider Nurse Practitioner Family
DX: R06.09 Other forms of dyspnea (principal); R07.9 Chest pain, unspecified; Z95.5 Presence of coronary angioplasty implant and graft
CPT/HCPCS: 71046; 80048; 82150; 83690; 83735; 83880; 84484; 85025; 85379

== ENCOUNTER 2023-01-24 01:57 | Emergency (ER) | payer MEDICAID, SELFPAY ==
[2023-01-24 01:58] VITALS: BP 128/67; PULSE 79; RESP 24; TEMP 36; O2SAT 99; BMI 31.4
--- NOTE | 2023-01-24 02:20 | CT_ITS ---
STUDY: CTA CHEST REASON FOR EXAM: Male, 47 years old with chest pain. TECHNIQUE: CT angiogram of chest was performed with the intravenous administration of 100 ml Isovue-370. Post-processing of the angiographic images was performed, with MIP and MPR reconstructions. Individualized dose optimization techniques were used for this CT. COMPARISON: Contrast enhanced chest CT from 06/16/2022 FINDINGS: PULMONARY ARTERIES: No pulmonary arterial filling defects identified. AORTA AND VISUALIZED GREAT VESSELS: Atherosclerosis with no thoracic aortic aneurysm or dissection. Great vessels are patent. HEART AND PERICARDIUM: Normal size heart with coronary arterial calcifications and stents. No significant pericardial effusion. MEDIASTINUM AND KAMI: No mediastinal or hilar adenopathy. Esophagus is unremarkable. LUNGS, PLEURA AND LARGE AIRWAYS: Moderate centrilobular and paraseptal emphysematous changes. Mild bilateral atelectatic changes. Mild scarring lingular segment left upper lobe. No pulmonary mass or consolidation. No pleural effusion or thickening. No pneumothorax. BONES: Intact with no suspicious osseous lesion. CHEST WALL: No chest wall mass or acute findings. VISUALIZED ABDOMEN: No acute findings. CT/CTA Chest W/WO Contrast IMPRESSION: 1. No pulmonary embolus identified. 2. Atherosclerotic disease and pulmonary emphysema. Electronically Signed: Malcom Corrales MD at 3:30 EST ,
[2023-01-24] MEDS: Ketorolac 30 MG/ML Syringe IV (02:26)
[2023-01-24] MEDS: 0.9% Normal Saline (1000mL) 1,000 ML 999 ML IV (02:26)
[2023-01-24 02:31] LABS: Absolute Lymphocyte Count 2.62 X10^3/uL (0.83-4.51); Absolute Neutrophil Count 7.3 X10^3/uL (2.0-7.7); Basophil# 0.04 X10^3/uL; Basophil% 0.4 % (0-1); Eosinophil# 0.22 X10^3/uL; Hematocrit 43.7 % (40-54); Hemoglobin 14.9 g/dL (13.0-16.5); Lymphocyte # 2.62 X10^3/ul (0.83-4.51); Lymphocyte % 23.9 % (19-41); Mean Corp Hgb Conc 34.1 g/dL (32-36); Mean Corpuscular Hgb 30.8 pg (27.0-32.0); Mean Corpuscular Volume 90.5 fL (80-94); Mean Platelet Vol. 9.4 fl (6.2-12.0); Monocyte# 0.75 X10^3/uL; Monocyte% 6.8 % (0-10); NRBC Flagged by Analyzer 0 % (0-5); Neutrophil # 7.27 X10^3/uL (2.7-7.7); Neutrophil % 66.4 % (47-70); POSITIVE COUNT YES; Platelet Count 274 K/mm3 (150-450); RBC Distribution Width SD 42.6 fl (35.1-43.9); Red Blood Count 4.83 M/mm3 (4.6-6.2)
[2023-01-24 02:35] VITALS: BP 128/79; PULSE 65; RESP 12; O2SAT 96
[2023-01-24 02:36] LABS: Differential Indicated SCAN CRITERIA MET
[2023-01-24 02:37] LABS: International Normalized Ratio 0.9; Partial Thromboplast Time 24.4 Seconds (24.1-36.2)
--- NOTE | 2023-01-24 02:38 | EDS_ITS ---
HPI History of Present Illness Chief Complaint: Chest Pain Informant: patient Narrative Narrative: Patient is a 47-year-old male with past medical history of hypertension hyperlipidemia and coronary artery disease status post stent placement. He reports that he has been having chest pain/discomfort for the past 3 weeks that seems to be worse at night when he tries to lay down and sleep. He had a heart cath in September of this year which showed clean coronaries and patent stents. He was evaluated by cardiology 2 days ago and had outpatient chest x-ray and basic blood work obtained which revealed no acute findings. 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) Essential hypertension Family history of ischemic heart disease and other diseases of the circulatory system GERD (gastroesophageal reflux disease) Hemoptysis Hyperlipidemia Mild sleep apnea Nicotine addiction Nicotine dependence Nicotine dependence, cigarettes, uncomplicated Noncompliance with medications Old myocardial infarction Pneumonia Presence of stent in coronary artery (~02/01/22) Primary snoring Stroke Unspecified systolic (congestive) heart failure Home Medications albuterol sulfate 2.5 mg/3 mL (0.083 %) solution for nebulization 2.5 mg inhal ation Q4H PRN shortness of breath or wheezing 05/22/22 [History Last Taken Unknown] albuterol sulfate 90 mcg/actuation aerosol inhaler 2 puff inhalation Q4H PRN shortness of breath or wheezing 05/22/22 [History Last Taken Unknown] aspirin 81 mg tablet,delayed release 81 mg PO DAILY 05/22/22 [History Last Taken Unknown] clopidogrel 75 mg tablet 75 mg PO DAILY 05/22/22 [History Last Taken Unknown] magnesium oxide 250 mg PO DAILY 05/22/22 [History Last Taken Unknown] omeprazole 40 mg capsule,delayed release 40 mg PO DAILY 05/22/22 [History Last Taken Unknown] rosuvastatin 10 mg tablet 10 mg PO DAILY 05/22/22 [History Last Taken Unknown] carvedilol phosphate 20 mg capsule,[id number] multiphase 20 mg PO DAILY 06/15/22 [History Last Taken Unknown] hydrochlorothiazide 25 mg tablet 25 mg PO DAILY #30 tabs 06/20/22 [Rx Last Taken Unknown] potassium chloride 20 mEq tablet,extended release 20 meq PO DAILY #30 tabs 07/18/22 [Rx Last Taken Unknown] bupropion HCl 150 mg 24 hr tablet, extended release 150 mg PO QAM 09/13/22 [History Last Taken Unknown] montelukast 10 mg tablet 10 mg PO QPM #90 tabs 01/08/23 [Rx Last Taken Unknown] budesonide-formoterol HFA 160 mcg-4.5 mcg/actuation aerosol inhaler (Symbicort) 2 puff inhalation BID #1 ea 01/22/23 [Rx Last Taken Unknown] tiotropium bromide 2.5 mcg/actuation mist for inhalation (Spiriva Respimat) 2 inh inhalation QDAY #1 ea 01/22/23 [Rx Last Taken Unknown] isosorbide mononitrate 30 mg tablet,extended release 24 hr 30 mg PO DAILY #30 tabs 01/23/23 [Rx Last Taken Unknown] budesonide 0.5 mg/2 mL suspension for nebulization 0.5 mg inhalation 01/24/23 [History Last Taken Unknown] potassium chloride 20 mEq tablet,extended release(part/cryst) 20 meq PO DAILY 01/24/23 [History Last Taken Unknown] Allergy/AdvReac Type Severity Reaction Status Date / Time amlodipine AdvReac Intermediate Severe Verified 01/24/23 02:03 headache Family History Mother Cancer Ovarian Grandmother Cancer breast cancer. Heart disease Myocardial infarction Grandfather Cancer Lung Fibromyalgia Father Cancer Surgical History H/O arthroscopic knee surgery H/O hand surgery H/O inguinal hernia repair History of left heart catheterization (LHC) (~09/25/22) Presence of coronary angioplasty implant and graft (~02/01/22) Social History Smoking Status: Current every day smoker tobacco type: cigarettes alcohol intake: never substance use type: does not use caffeine: Yes (8-12 servings per day) ROS ROS ED Constitutional Constitutional ED: Denies chills or fever(s) ENT ENT ED: Denies sore throat Cardiovascular Cardiovascular: Reports chest pain; Denies palpitations or racing heartbeat Respiratory/Chest Respiratory/Chest: Denies cough or dyspnea Gastrointestinal Gastrointestinal: Denies abdominal pain, diarrhea, nausea or vomiting Genitourinary Genitourinary ED: Denies dysuria Musculoskeletal Musculoskeletal: Denies myalgias Integumentary Denies rash Neurologic Neurologic: Denies headache(s) Hematologic/Lymphatic Hematologic/Lymphatic: Reports easy bleeding and easy bruising EXAM Physical Exam Const Vital Signs: 01/24/23 01:58 01/24/23 02:02 01/24/23 02:35 Temperature 96.8 F L Temperature Source Temporal Pulse Rate 79 65 Respiratory Rate 24 H 12 Respiratory Effort Normal Non-Labored Blood Pressure 128/67 H 128/79 H Blood Pressure Mean 87 95 Pulse Ox 99 96 Oxygen Delivery Method Room Air Room Air 01/24/23 03:34 Temperature Temperature Source Pulse Rate 76 Respiratory Rate 16 Respiratory Effort Blood Pressure 121/67 H Blood Pressure Mean 85 Pulse Ox 95 Oxygen Delivery Method Room Air Positive well nourished and well developed General Appearance ED: well developed; Negative for pallor HEENT HEENT Narrative: Normocephalic atraumatic Eyes PERRL and EOMs intact bilaterally General Eye ED: Negative for scleral icterus Neck supple and no JVD Neck Narrative: No nuchal rigidity or meningeal signs noted Chest Wall palpation of chest normal Chest Narrative: No bony deformity or crepitance palpated Resp normal respiratory effort Resp Narrative: Breath sounds are diminished throughout with faint expiratory wheeze in the bilateral lower lobes but no nasal flaring retractions tachypnea or accessory muscle use Cardio regular rate and regular rhythm Rate: other Other Details: Heart is regular rate and rhythm without murmurs rubs or gallops Radial and carotid pulses are equal and symmetric GI normal to inspection, nondistended, normoactive bowel sounds, non-tender, non- distended and no masses GI Narrative: No voluntary guarding or rigidity No pulsatile mass or fluid wave Auscultation: normoactive bowel sounds Palpation: soft Back/Spine Back/Spine Narrative: No overlying soft tissue changes to the back or chest wall to suggest infection or trauma Extremity normal to inspection Extremity Narrative: No asymmetric edema no pitting edema negative Homans' sign bilaterally Neuro oriented x3, CN's II-XII intact bilaterally and no sensory deficits noted Sensorium / Orientation: alert Motor Exam: strength 5/5 throughout Psych Psych Narrative: Patient has a nervous/anxious affect Skin no rashes or lesions noted General Skin Exam: Negative for jaundice or pallor MDM MDM MDM Narrative Medical decision making narrative: Patient presented to the ER with stable vitals and reported 3 weeks of persistent chest discomfort. He was recently seen by cardiology and had o utpatient labs and a chest x-ray which were reviewed and showed no acute findings. He also had a heart cath in September of this year which was reviewed and showed no signs of significant occlusion. Differential diagnosis for his persistent symptoms are acute coronary syndrome versus pulmonary embolus versus pneumonia versus pneumothorax or pneumomediastinum versus potential abdominal pathology such as biliary colic or acute pancreatitis. Basic blood work was obtained as well as a CTA of the chest as the patient had a recent normal chest x-ray. Lab work showed no clinically significant findings with a troponin of 4 which was similar nature to the 1 obtained 2 days ago at 7 indicating no signs of acute coronary syndrome. CTA also showed no signs of dissection pericardial effusion or pulmonary embolus. At this time the patient's vitals are stable his workup regarding acute coronary syndrome is negative and CTA does not show any type of thoracic pathology such as PE dissection pneumonia pneumothorax or pneumomediastinum. Therefore at this time as his workup is negative and his vitals are stable there is no need for admission to the hospital and he can have this worked up further on an outpatient basis History & Record Review Discussion w/independent historian: Patient Lab Data Attestation: I reviewed the patient's lab results. Labs: Laboratory Results - last 24 hr 01/24/23 02:11 WBC 11.0 RBC 4.83 Hgb 14.9 Hct 43.7 MCV 90.5 MCH 30.8 MCHC 34.1 RDW Std Deviation 42.6 RDW Coeff of Zuly 13.0 Plt Count 274 MPV 9.4 Immature Gran % (Auto) 0.500 Neut % (Auto) 66.4 Lymph % (Auto) 23.9 Cass % (Auto) 6.8 Eos % (Auto) 2.0 Baso % (Auto) 0.4 Absolute Neuts (auto) 7.3 Absolute Lymphs (auto) 2.62 Nucleated RBC % 0 Differential Comment SCANNED Platelet Estimate ADEQUATE PT 12.0 INR 0.9 APTT 24.4 Sodium 138 Potassium 4.1 Chloride 105 Carbon Dioxide 25.0 Anion Gap 8 BUN 18 Creatinine 1.16 Estim Creat Clear Calc 85.48 Est GFR (MDRD) Af Amer 86 Est GFR (MDRD) Non-Af 71 BUN/Creatinine Ratio 15.5 Glucose 119 H Calcium 9.0 Total Bilirubin 0.50 Direct Bilirubin 0.07 AST 22 ALT 21 Alkaline Phosphatase 96 Troponin I High Sens 4 Total Protein 7.6 Albumin 3.6 Globulin 4.0 Lipase 38 Radiography Diagnostic Testing: Clinical Impression(s) from Imaging Studies Chest CTA 01/24/23 02:20 IMPRESSION: 1. No pulmonary embolus identified. 2. Atherosclerotic disease and pulmonary emphysema. Electronically Signed: Malcom Corrales MD at 3:30 EST , Discharge Plan Triage Chief Complaint: Chest Pain ED Provider: Jose R Schmitz Dx/Rx/DC Orders Clinical Impression: Nonspecific chest pain, COPD (chronic obstructive pulmonary disease), CAD (coronary artery disease), Essential hypertension Instructions: COPD: Wheezing and Chest Tightness Prescriptions: No Action omeprazole 40 mg capsule,delayed release(DR/EC) 40 mg PO DAILY clopidogrel 75 mg tablet 75 mg PO DAILY rosuvastatin 10 mg tablet 10 mg PO DAILY albuterol sulfate 90 mcg/actuation HFA aerosol inhaler 2 puff inhalation Q4H PRN (Reason: shortness of breath or wheezing) albuterol sulfate 2.5 mg /3 mL (0.083 %) solution for nebulization 2.5 mg inhalation Q4H PRN (Reason: shortness of breath or wheezing) magnesium oxide 250 mg magnesium tablet 250 mg PO DAILY aspirin 81 mg tablet,delayed release (DR/EC) 81 mg PO DAILY carvedilol phosphate 20 mg capsule, ER multiphase 24 hr 20 mg PO DAILY Rx Instructions: must administer with a meal/food bupropion HCl 150 mg tablet extended release 24 hr 150 mg PO QAM montelukast 10 mg tablet 10 mg PO QPM Qty: 90 3RF budesonide 0.5 mg/2 mL suspension for nebulization 0.5 mg inhalation potassium chloride 20 mEq tablet,ER particles/crystals 20 meq PO DAILY hydrochlorothiazide 25 mg tablet 25 mg PO DAILY Qty: 30 11RF potassium chloride 20 mEq tablet extended release 20 meq PO DAILY Qty: 30 12RF budesonide-formoterol [Symbicort] 160-4.5 mcg/actuation HFA aerosol inhaler 2 puff inhalation BID Qty: 1 3RF Rx Instructions: administer with spacer, rinse mouth after each use Spiriva Respimat 2.5 mcg/actuation mist 2 inh inhalation QDAY Qty: 1 6RF Rx Instructions: administer at approximately the same time(s) each day isosorbide mononitrate 30 mg tablet extended release 24 hr 30 mg PO DAILY Qty: 30 11RF Primary Care Provider: LORI ALVARADO Referrals: LORI ALVARADO [Other] Activity Restrictions/Additional Instructions: Your workup today showed no sign of heart damage and no sign of blood clot. It did document lung changes consistent with COPD but no pneumonia or hole in your lung. Continue all of your medication as directed by your doctor and return to the ER should you have any further concerns Disposition Disposition: Home, Self Care
[2023-01-24 03:24] LABS: AST(SGOT) 22 U/L (15-37); Alanine Aminotransfer ALT/SGPT 21 U/L (16-61); Albumin, Serum 3.6 g/dL (3.2-5.0); Alkaline Phosphatase 96 U/L (45-117); Anion Gap 8 (5-15); BUN 18 mg/dL (7-18); BUN/Creat Ratio 15.5 RATIO (10-20); Bilirubin, Direct 0.07 mg/dL (0.00-0.30); Chloride 105 mmol/L (98-107); Creatinine, Serum 1.16 mg/dL (0.70-1.30); EST Glomerular Filtration Rate 71 mL/min (>60); Est Glom Filt Rate - Afr Amer 86 mL/min (>60); Estimated Creatinine Clearance 85.48 ml/min; Glucose 119 mg/dL (74-106); Lipase 38 U/L (13-75); Potassium 4.1 mmol/L (3.5-5.1); Protein, Total 7.6 g/dL (6.4-8.2); Sodium Level 138 mmol/L (136-145); Troponin-I HS 4 pg/mL (3.0-78.0)
[2023-01-24 03:27] LABS: Differential Comment SCANNED; Platelet Estimate ADEQUATE (ADEQ)
[2023-01-24 03:34] VITALS: BP 121/67; PULSE 76; RESP 16; O2SAT 95
[2023-01-24 03:58] VITALS: BP 118/74; PULSE 73; RESP 16; O2SAT 99
== END 2023-01-24 04:00 | disposition home or self-care (01) ==
PROVIDERS: Emergency Provider Emergency Medicine; Visit Provider Emergency Medicine
DX: R07.9 Chest pain, unspecified (principal); J44.9 Chronic obstructive pulmonary disease, unspecified; I11.0 Hypertensive heart disease with heart failure; I50.20 Unspecified systolic (congestive) heart failure; E78.5 Hyperlipidemia, unspecified; F17.210 Nicotine dependence, cigarettes, uncomplicated; I25.10 Atherosclerotic heart disease of native coronary artery without angina pectoris; Z95.5 Presence of coronary angioplasty implant and graft; I25.2 Old myocardial infarction; Z86.73 Personal history of transient ischemic attack (TIA), and cerebral infarction without residual deficits; Z79.899 Other long term (current) drug therapy; Z79.82 Long term (current) use of aspirin; Z79.02 Long term (current) use of antithrombotics/antiplatelets; K21.9 Gastro-esophageal reflux disease without esophagitis; F32.A Depression, unspecified; Z79.51 Long term (current) use of inhaled steroids
CPT/HCPCS: 71275; 80048; 80076; 83690; 84484; 85025; 85610; 85730; 93005; 96361; 96374; 99283; J7030; Q9967; A4216

== ENCOUNTER → 2023-04-25 | Outpatient (CLI) | payer MEDICAID, SELFPAY ==
[2023-04-25 12:47] VITALS: PULSE 86; PULSE 89; PULSE 90; PULSE 93; PULSE 95; PULSE 96; PULSE 98; O2SAT 95; O2SAT 96; O2SAT 97; O2SAT 98
--- OUTSIDE RECORDS SUMMARY | 2023-04-25 14:04 | XMS RPT_ITS | CCD ---
Author Name Unknown Address [address] [place] [address] Organization [facility] Care Team Providers Care Microwave Technician Name Role Phone Sherita, Dylan Unavailable Unavailable Sherita, Dylan Unavailable Unavailable Prashant Flores . Unavailable Unavailable Sherita, Dylan Unavailable Unavailable Sherita, Dylan Unavailable Unavailable Bowen, Nile Unavailable Unavailable NELLY, BETTY Unavailable Unavailable Sherita, Dylan Unavailable Unavailable Sherita, Dylan Unavailable Unavailable NO REFERRING DR Unavailable Unavailable [employer] Unavailable Unavailable UNKNOWN, PROVIDER Unavailable Unavailable Danilo Forrest DO Primary Care Provider [phone] MO GARAY MD Attending MO Torres MD Primary Care UnavailMO Van MD Admitting DANILO Morris DO Consulting Unavailable PROVIDER, UNKNOWN Consulting Unavailable CHRISTIANO BUSTILLOS, DR SANDOVAL Primary Care Physician Monroe Love Attending Unavailable MO GARAY MD Attending DR DANILO Morris MD Primary Care Unavailable JEANNIE GARNETT DO Attending Unavailable DR DANILO FORREST MD Primary Care Unavailable ELDA HUNTER MD Attending Unavailable DR DANILO FORREST MD Primary Care Unavailable Medications Current Medications Medication Drug Class(es) Dates Sig (Normalized) Sig (Original) Albuterol (6 sources) beta2-Adrenergic Agonist Start: 10-28-2021 albuterol Continuous Inhalation Soln See Instructions, 0 Refill(s), 99.8 Start Date: 10/28/21 Status: Ordered Completed/Discontinued Medications Medication Drug Class(es) Dates Sig (Normalized) Sig (Original) acetaminophen 650 mg oral tablet (4 sources) take 650 mg by mouth every four hours as needed ACETAMINOPHEN (TYLENOL ORAL) Take 650 mg by mouth every 4 hours as needed. 0 Active Problems Active Problems Problem Classification Problem Date Documented Date Episodic/Chronic Acute myocardial infarction (2 sources) ST elevation (STEMI) myocardial infarction of unspecified site; Translations: [ST elevation (STEMI) myocardial infarction of unsp site] Onset: 11-20-2016 Chronic Asthma (2 sources) Unspecified asthma, uncomplicated; Translations: [Unspecified asthma, uncomplicated] Onset: 11-20-2016 Chronic Chronic obstructive pulmonary disease and bronchiectasis (9 sources) Chronic obstructive pulmonary disease, unspecified; Translations: [Emphysema, unspecified] Onset: 11-20-2016 Chronic Coronary atherosclerosis and other heart disease (13 sources) Atherosclerotic heart disease of [place] coronary artery with unspecified angina pectoris; Translations: [Old myocardial infarction] Onset: 09-19-2016 Chronic Disorders of lipid metabolism (3 sources) Hyperlipidemia, unspecified; Translations: [Hyperlipidemia, unspecified] Onset: 08-06-2016 Chronic Esophageal disorders (2 sources) Gastro-esophageal reflux disease without esophagitis; Translations: [Gastro-esophageal reflux disease without esophagitis] Onset: 11-20-2016 Chronic Essential hypertension (4 sources) Essential (primary) hypertension; Translations: [Hypertensive disorder] Onset: 11-20-2016 12-29-2021 Chronic Other connective tissue disease (1 source) Pain in left arm; Translations: [Pain in left arm] Onset: 10-17-2022 Episodic Other hereditary and degenerative nervous system conditions (2 sources) Restless legs syndrome; Translations: [Restless legs syndrome] Onset: 11-20-2016 Chronic Other infections; including parasitic (5 sources) Personal history of other infectious and parasitic diseases; Translations: [History of 2019 novel coronavirus disease (COVID-19)] Onset: 08-31-2021 Episodic Other lower respiratory disease (5 sources) Hemoptysis; Translations: [Hemoptysis] Onset: 08-31-2021 Episodic Other lower respiratory disease (5 sources) Dyspnea on exertion; Translations: [Shortness of breath] Onset: 08-31-2021 Episodic Other male genital disorders (2 sources) Male erectile dysfunction, unspecified; Translations: [Male erectile dysfunction, unspecified] Onset: 11-20-2016 Chronic Other nervous system disorders (1 source) Paresthesia; Translations: [Paresthesia of skin] Onset: 10-17-2022 Episodic Residual codes; unclassified (5 sources) Tobacco user; Translations: [Tobacco use] Onset: 08-31-2021 Episodic Residual codes; unclassified (2 sources) Noncompliance with medication regimen 01-13-2020 Episodic Substance-related disorders (5 sources) Nicotine dependence, cigarettes, uncomplicated; Translations: [Nicotine dependence, unspecified, uncomplicated] Onset: 08-06-2016 Chronic Past or Other Problems Problem Classification Problem Date Documented Da te Episodic/Chronic Abdominal pain (3 sources) Right lower quadrant pain; Translations: [RIGHT LOWER QUADRANT MARILEE] Onset: 08-06-2016 Episodic Allergic reactions (2 sources) Allergy status to other drugs, medicaments and biological substances status; Translations: [Allergy status to oth drug/meds/biol subst status] Onset: 11-20-2016 Episodic Coronary atherosclerosis and other heart disease (4 sources) Coronary angioplasty status; Translations: [Presence of coronary angioplasty implant and graft] Onset: 09-19-2016 Episodic Nonspecific chest pain (4 sources) Chest pain, unspecified; Translations: [Other chest pain] Onset: 11-20-2016 Episodic Other aftercare (3 sources) 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; Translations: [Encounter for change or removal of surgical wound dressing] Onset: 08-06-2016 Episodic Unclassified (6 sources) Family history of other specified conditions; Translations: [Family history of ischemic heart disease and other diseases of the circulatory system] Onset: 09-19-2016 Episodic Results Test Name Value Interpretation Reference Range Facil ity Vital Signs Date Time Vital Sign Value Performing Clinician Facility 10-17-2022 20:13-0400 Body height 182.9 cm [facility] [employer] [facility] 10-17-2022 20:13-0400 Body temperature 98.24 [degF] [facility] [employer] [facility] 10-17-2022 20:13-0400 Body weight 103 kg [facility] [employer] [facility] 10-17-2022 20:13-0400 Diastolic Blood Pressure Non-Invasive 83 1 [facility] [employer] [facility] 10-17-2022 20:13-0400 Heart rate 76 /min [facility] 10-17-2022 20:13-0400 Respiratory rate 16 /min [facility] 10-17-2022 20:13-0400 Systolic Blood Pressure Non-Invasive 134 1 [facility] 02-01-2022 19:01-0500 Diastolic Blood Pressure Non-Invasive 60 1 MO GARAY MD [facility] 02-01-2022 19:01-0500 Heart rate 78 /min MO GARAY MD [facility] 02-01-2022 19:01-0500 Systolic Blood Pressure Non-Invasive 106 1 MO GARAY MD [facility] 02-01-2022 16:59-0500 Heart rate 77 /min MO GARAY MD [facility] 02-01-2022 15:12-0500 Heart rate 78 /min MO GARAY MD [facility] 02-01-2022 13:53-0500 Diastolic Blood Pressure Non-Invasive 60 1 MO GARAY MD [facility] 02-01-2022 13:53-0500 Systolic Blood Pressure Non-Invasive 101 1 MO GARAY MD [facility] 02-01-2022 13:17-0500 Diastolic Blood Pressure Non-Invasive 60 1 MO GARAY MD [facility] 02-01-2022 13:17-0500 Respiratory rate 16 /min MO GARAY MD [facility] 02-01-2022 13:17-0500 Systolic Blood Pressure Non-Invasive 103 1 MO GARAY MD [address] 02-01-2022 12:32-0500 Blood Pressure Cuff Size MO GARAY MD [address] [place] [address] 02-01-2022 12:32-0500 Blood Pressure Location MO GARAY MD [address] [place] [address] 02-01-2022 12:32-0500 Blood Pressure Method MO GARAY MD [address] [place] [address] 02-01-2022 12:32-0500 Reason For Taking VItal Signs MO GARAY MD [address] [place] [address] 02-01-2022 12:32-0500 Respiratory rate 16 /min MO GARAY MD [address] [place] [address] 02-01-2022 11:53-0500 Blood Pressure Cuff Size MO GARAY MD [address] [place] [address] 02-01-2022 11:53-0500 Blood Pressure Location MO GARAY MD [address] [place] [address] 02-01-2022 11:53-0500 Blood Pressure Method MO GARAY MD [address] [place] [address] 02-01-2022 11:53-0500 Reason For Taking VItal Signs MO GARAY MD [address] [place] [address] 02-01-2022 05:44-0500 Blood Pressure Cuff Size MO GARAY MD [address] 02-01-2022 05:44-0500 Blood Pressure Location MO GARAY MD [address] [place] [address] 02-01-2022 05:44-0500 Blood Pressure Method MO GARAY MD [facility] 02-01-2022 05:44-0500 Body height 185.4 cm MO GARAY MD [address] [place] [address] 02-01-2022 05:44-0500 Body temperature 97.88 [degF] MO GARAY MD [facility] 02-01-2022 05:44-0500 Body weight 96.8 kg MO GARAY MD [facility] 02-01-2022 05:44-0500 Body weight 28.16 kg/m2 MO GARAY MD [facility] 08-31-2021 12:11-0400 Body height 182.9 cm Yony Goodson DO Work Phone: [facility] 08-31-2021 12:11-0400 Body weight 100.7 kg Yony Goodson DO Work Phone: [facility] 08-31-2021 12:11-0400 Diastolic blood pressure 79 mm[Hg] Yony Goodson DO Work Phone: [facility] 08-31-2021 12:11-0400 Heart rate 84 /min Yony Goodson DO Work Phone: [facility] 08-31-2021 12:11-0400 SaO2% (BldA) [Mass fraction] 95 % Yony Goodson DO Work Phone: [facility] 08-31-2021 12:11-0400 Systolic blood pressure 118 mm[Hg] Yony Goodson DO Work Phone: [facility] Encounters Encounter Date Encounter Type Care Provider Facility Start: 10-17-2022 End: 10-17-2022 Emergency department patient visit JEANNIE GARNETT DO Facility:B Start: 10-17-2022 End: 10-17-2022 Emergency department patient visit JEANNIE GARNETT DO [facility] Start: 05-05-2022 ambulatory EDLA HUNTER MD Fac ility:B Start: 02-01-2022 End: 02-01-2022 ambulatory MO GARAY MD Facility:A Start: 02-01-2022 End: 02-01-2022 SAME DAY STAY MO GARAY MD [facility] Start: 01-26-2022 ambulatory Monroe Love Facility :[facility] Start: 01-16-2022 End: 01-16-2022 [facility]ulatory [facility] Start: 09-06-2021 End: 09-06-2021 Subsequent hospital visit by physician Provider [facility] Procedures Date Procedure Procedure Detail Performing Clinician Start: 08-03-2016 Cardiac catheterization MO GARAY MD Plan of Treatment Date Care Activity Detail Author Start: 10-20-2021 Influenza vaccination INFLUENZA (#1) [facility] Start: 08-07-2019 DIABETES SCREEN DIABETES SCREEN [facility] Start: 07-05-2019 COLOGUARD (FIT-DNA) COLOGUARD (FIT-DNA) [facility] Start: 07-05-2019 Colonoscopy COLONOSCOPY [facility] Start: 07-05-2019 COLORECTAL CANCER SCREENING COLORECTAL CANCER SCREENING [facility] Start: 07-05-[address] COLONOGRAPHY [facility] Start: 07-05-2019 FECAL OCCULT BLOOD FECAL OCCULT BLOOD [facility] Start: 07-05-2019 SIGMOIDOSCOPY SIGMOIDOSCOPY [facility] Start: 05-02-2019 LIPID SCREEN LIPID SCREEN [facility] Start: 05-02-2015 Hepatitis B surface antibody level LDL CHOLESTEROL [facility] Start: 1993 Urine microalbumin profile DTAP,TDAP,TD (1 - Tdap) [facility] Start: 1992 ANNUAL PCP TEAM CHRONIC DISEASE VISIT ANNUAL PCP TEAM CHRONIC DISEASE VISIT [facility] Start: 1992 HEPATITIS C SCREENING HEPATITIS C SCREENING [facility] Start: 1992 HIV SCREENING HIV SCREENING [facility] Start: 1992 SPIROMETRY SPIROMETRY [facility] Start: 1986 Adult depression screening assessment DEPRESSION SCREENING [facility] Start: 1980 PNEUMOCOCCAL (1 - PCV) PNEUMOCOCCAL (1 - PCV) [facility] Start: 01-04-1975 COVID-19 VACCINE (#1) COVID-19 VACCINE (#1) [facility] End: 09-30-2022 BRONCHOSCOPY BRONCHOSCOPY Endoscopy Routine Hemoptysis 1 Occurrences starting 08/31/2021 until 09/30/2022 [facility] Work Phone: Payers Date Payer Category Payer Unknown [id number] 2022 Self-pay 2022 Unknown [id number] 2021 Unknown [employer] P[employer] [id number] 2021-Present [phone] [address] [place] [address] PPO [id number] 1974 Unknown [id number] 1974 Unknown [id number] 1974 Unknown [id number] 1974 Unknown [id number] Unknown Unknown [id number] Social History Date Type Detail Facility [facility] Start: 02-20-1996 History of tobacco use Smoker [facility] Start: 08-31-2021 Cigarettes smoked current (pack per day) - Reported 2 [facility] Start: 08-31-2021 Tobacco use and exposure Smokeless tobacco non-user [facility] Start: 08-31-2021 Alcohol intake Ex-drinker (finding) [facility] Start: 08-31-2021 Tobacco Comment now down to 1. 5 packs daily 08/31/2021 [facility] Start: 1975 Sex Assigned At Not on file C [facility] Start: 08-21-2021 End: 08-31-2021 Exposure to SARS-CoV-2 (event) Not sure [facility] Start: 12-28-2021 Tobacco smoking status Heavy t obacco smoker (finding) [facility] Sex Assigned At Male [facility] Functional Status Date Assessment Result Facility 10-17-2022 Functional Status Standard Safet y ID band on, Call device within reach, Bed in low position, Wheels locked, Upper/Half-Length side-rails up, Bedside Cart Locked, Safety level maintained [facility] 02-01-2022 Functional Status Ambulating in bahena, Ambulating in room [facility] 02-01-2022 Functional Status [facility] 02-01-2022 Functional Status Standard Safet y Safety level maintained [facility] 02-01-2022 Functional Status [facility] 02-01-2022 Functional Status Maintained [facility] Mental Status Date Assessment Result [facility] 10-17-2022 Mental Status Orientation Oriented x 4 [facility] 02-01-2022 Mental Status Orientation Oriented x 4 [facility] 02-01-2022 Mental Status [facility] 02-01-2022 Mental Status [facility] Clinical Notes 08-31-2021 to 10-17-2022 Note Date & Type Note Facility 10-17-2022 Hospital Discharg e instructions Patient Education 10/17/2022 20:15:40 Paraesthesias Paraesthesias Paraesthesia is a burning or prickling sensation that is sometimes felt in the hands, arms, legs or feet. It can also occur in other parts of the body. It can also feel like tingling or numbness, skin crawling, or itching. The feeling is not comfortable, but it is not painful. (The pins and needles feeling that happens when a foot or hand falls asleep is a temporary paraesthesia.) Paraesthesias that last or come and go may be caused by medical issues that need to be treated. These include stroke, a bulging disk pressing on a nerve, a trapped nerve, vitamin deficiencies, uncontrolled diabetes, alcohol abuse, or even certain medicines. Tests are often done. These tests may include blood tests, X-ray, CT (computerized tomography) scan, nerve conduction studies (NCS), or a muscle test (electromyography). Depending on the cause, treatment may include physical therapy. Home care Tell your healthcare provider about all medicines you take. This includes prescription and yjhm-oib-julbpna medicines, vitamins, and herbs. Ask if any of the medicines may be causing your problems. Don't make any changes to prescription medicines without talking to your healthcare provider first. You may be prescribed medicines to help relieve the tingling feeling or for pain. Take all medicines as directed. A numb hand or foot may be more prone to injury. To help protect it: oAlways use oven mitts. oTest water with an unaffected hand or foot. oUse caution when trimming nails. File sharp areas. oWear shoes that fit well to avoid pressure points, blisters, and ulcers. oInspect your hands and feet carefully (including the soles of your feet and between your toes) daily. If you see red areas, sores, or other problems, tell your healthcare provider. Follow-up care Follow up with your doctor, or as advised. You may need further testing or evaluation. When to seek medical advice Call your healthcare provider right away if any of the following occur: Numbness or weakness of the face, one arm, or one leg Slurred speech, confusion, trouble speaking, walking, or seeing Severe headache, fainting spell, dizziness, or seizure Chest, arm, neck, or upper back pain Loss of bladder or bowel control Open wound with redness, swelling, or pus [phone] [employer]. [address] [place] [address]. All rights reserved. This information is not intended as a substitute for professional medical care. Always follow your healthcare professional's instructions. Follow Up Care 10/17/2022 20:03:40 With:Go to emergency room if symptoms worsen Address:Unknown When:2-4 days With:DANILO FORREST MD Address: [address] [place] [address]- When:2-4 days [facility] 10-17-2022 Emergency department Discharge summary Discharge Instructions Thank you for allowing [facility] to assist you with your healthcare needs. The following is important discharge information regarding your hospital visit. Diagnosis from Today's Visit Arm pain Pain in left arm Paresthesia What to Do Next Instructions from Your Care Team Take Tylenol and or Motrin as needed for pain. Not exceed the recommended dose. Take Flexeril only as needed for severe pain. Do not exceed the recommended dose. Do not take Flexeril before operating heavy machinery. Follow-up for ultrasound left arm to rule out blood clot. Follow-up with your primary care provider. If continued tingling may need follow-up with neurologist for EMG or further testing. Discharge ED Outpatient Vascular Lab - Ordered -- Test Requested: venous doppler left arm, Upper extremity, Left, Test Reason: Injury to arm, Mon-Fri 8am-4:30pm: Call [phone] at 7:30am to schedule a same day appointment for testing. Please be aware there may be a short wait time. Post Acute Orders No qualifying data available. You Need to Schedule the Following Appointments Follow Up with Go to emergency room if symptoms worsen When Within 2-4 days Follow Up with DANILO FORREST MD When Within 2-4 days Where: [address] [place] [address]- Allergies No Known Medication Allergies Medications Please ask your primary doctor or pharmacist before taking any other medication not listed, including over the counter drugs, herbal medications, vitamins and or supplements as they may interact with your home medications. What How Much When Instructions Last Dose New cyclobenzaprine (cyclobenzaprine 10 mg oral tablet) 1 tab(s) by mouth Three (3) times a day Duration: 5 Days Printed Prescription Unchanged albuterol (albuterol Continuous Inhalation Soln) See instructions Unchanged aspirin (aspirin 81 mg oral delayed release tablet) 1 tab(s) by mouth Every day Unchanged atorvastatin (atorvastatin 40 mg oral tablet) 1 tab(s) by mouth Once a day Unchanged budesonide/ formoterol/ glycopyrrolate (Breztri Aerosphere inhalation aerosol) 2 puff(s) by inhalation Two (2) times a day rinse mouth and throat after use Unchanged carvedilol (carvedilol 3.125 mg oral tablet) 1 tab(s) by mouth Twice daily with meals Unchanged clopidogrel (Plavix 75 mg oral tablet) 1 tab(s) by mouth Once a day Unchanged nitroGLYcerin (nitroglycerin 0.4 mg sublingual tablet) 1 tab(s) under the tongue Every 5 minutes as needed for for chest pain Unchanged omeprazole (omeprazole 40 mg oral delayed release capsule) 1 cap by mouth Once a day Please take this list to your next doctor s visit. Bring all medications you take, including over the counter medications, herbals and other supplements with you to your doctor s visit. Patients and families are reminded to discard old lists and to update any records with all medication providers or retail pharmacies. Education Materials Paraesthesias Paraesthesia is a burning or prickling sensation that is sometimes felt in the hands, arms, legs or feet. It can also occur in other parts of the body. It can also feel like tingling or numbness, skin crawling, or itching. The feeling is not comfortable, but it is not painful. (The pins and needles feeling that happens when a foot or hand falls asleep is a temporary paraesthesia.) Paraesthesias that last or come and go may be caused by medical issues that need to be treated. These include stroke, a bulging disk pressing on a nerve, a trapped nerve, vitamin deficiencies, uncontrolled diabetes, alcohol abuse, or even certain medicines. Tests are often done. These tests may include blood tests, X-ray, CT (computerized tomography) scan, nerve conduction studies (NCS), or a muscle test (electromyography). Depending on the cause, treatment may include physical therapy. Home care Tell your healthcare provider about all medicines you take. This includes prescription and ghak-mqd-vnwzwwy medicines, vitamins, and herbs. Ask if any of the medicines may be causing your problems. Don't make any changes to prescription medicines without talking to your healthcare provider first. You may be prescribed medicines to help relieve the tingling feeling or for pain. Take all medicines as directed. A numb hand or foot may be more prone to injury. To help protect it: oAlways use oven mitts. oTest water with an unaffected hand or foot. oUse caution when trimming nails. File sharp areas. oWear shoes that fit well to avoid pressure points, blisters, and ulcers. oInspect your hands and feet carefully (including the soles of your feet and between your toes) daily. If you see red areas, sores, or other problems, tell your healthcare provider. Follow-up care Follow up with your doctor, or as advised. You may need further testing or evaluation. When to seek medical advice Call your healthcare provider right away if any of the following occur: Numbness or weakness of the face, one arm, or one leg Slurred speech, confusion, trouble speaking, walking, or seeing Severe headache, fainting spell, dizziness, or seizure Chest, arm, neck, or upper back pain Loss of bladder or bowel control Open wound with redness, swelling, or pus [phone] [employer]. [address] [place] [address], [place] [address]. All rights reserved. This information is not intended as a substitute for professional medical care. Always follow your healthcare professional's instructions. Additional Information VACCINATE! IT SAVES LIVES! Members of the community who have not yet received the COVID-19 vaccine and would like to receive it can visit one of [facility] vaccine clinics. There are many vaccine clinic locations within the [facility]. For locations and available times, please visit [email or web address] [email or web address] It is important to note that some COVID mobile vaccine clinics are held outdoors and may be canceled in rainy or stormy conditions. To learn more about pediatric vaccinations (ages 5-11), we invite you to visit the [employer] [facility] webpage. https://[email or web address].org/p [email or web address]-Freq [email or web address]-Afqcfwzsz.html To learn more about the COVID-19 vaccine, we invite you to visit the CDC website for a list of frequently asked questions. https://www.cdc.gov/coronavirus/ 2019-ncov/vaccines/faq.html [facility] Patient Portal Access Instructions: Stay connected with your healthcare team and access your personal medical information anytime with the [facility] Patient Portal. If you would like a full copy of your medical records please contact the [facility] Medical Records Department Sunday through Sunday between 8a.m. and 4:30p.m. Please follow the directions below to access the portal: 1.Access the email account you provided upon registration to the hospital.2.Look for an invitation email from [facility].3.Open the email and access the invitation link: Accept Invitation to [facility].Fill in the required cosme to create your account. Sign into [email or web address] with your username and password that you created in the above steps to stay up to date. You can then view a summary of results, a summary of your visits, and the ability to download your summaries to your computer or send the information securely to a physician. Remember that your healthcare information is confidential, so carefully consider who you will allow to register on the [employer] Patient Portal for access to your information. You can also access the [employer] Patient Portal on the [employer] june. Simply click on Health Records under Health Data and then click on the V[employer] logo. HOW TO SAFELY DISPOSE OF PRESCRIPTION MEDICATIONS Please use one of the following methods to safely dispose of your unused medications. 1.Use a drug disposal kit: the drug disposal pouch allows you to safely discard your old and unused drugs. Ask your nurse to give you one when you are discharged.2.Visit a local take-back location: Many local pharmacies and police departments have programs that collect old and unwanted prescription drugs. Call your local pharmacy or go to http://Novatris.Forsitec/4U6Op6z to find one close to you.3.Make use of household items: Use cat litter or old coffee grounds to dispose medications if other options are not available. Mix your drugs with these household products, seal them in an airtight container and throw it into the garbage. Call [facility]: [phone] to be sure your drugs can be disposed of in this way. Some medicines may require a different approach.4.Never flush your medications down the toilet. IF YOU HAVE BEEN PRESCRIBED AN OPIOIDS FOR PAIN If you have been prescribed an opioid (such as hydrocodone, oxycodone or morphine), it is critical to understand the possible side effects and risks of opioid pain medications. Even when taken as directed, opioids can have several side effects including: Tolerance, meaning you might need to take more of a medication for the same pain relief. Nausea, vomiting and/or constipation. Sleepiness, dizziness, dry mouth, confusion, depression or itching. Physical dependence, meaning you have withdrawal symptoms when a medication is stopped ? this can develop within a few days. KNOW YOUR RESPONSIBILITIES It is important to know exactly how much and how often to take the opioid pain medications you are prescribed. Never take opioids in higher amounts or more often than prescribed. Do not combine opioids with alcohol or other drugs that cause drowsiness, such as benzodiazepines, also known as benzos, including diazepam and alprazolam, muscle relaxants or sleep aids. Never sell or share prescription opioids. This is illegal. Store opioids in a secure place and out of reach of others (including children, family, friends and visitors). The last page(s) of this document has been signed and retained as a CHART COPY Signatures Patient Education Materials Para[employer] Medication Leaflets My discharge plan and instructions have been reviewed and explained to me and I,MARIBELL MAZARIEGOS understand my current condition and have read and understand these discharge instructions. I have received a written copy of the plan/instructions. If I have questions, I am aware that I should contact my doctor. 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: Date/Time: Relationship to Patient: Witness Name/Signature: Date/Time: [facility] 02-01-2022 Hospital Discharg e instructions Patient Education 02/01/2022 18:22:07 3- Heart Cath/PCI groin (11/2017) (CUSTOM) HEART CATHETERIZATION/PCI (groin) Discharge Instructions DIET INSTRUCTIONS Drink plenty of fluids for the next 48 hours to help your kidneys flush the heart cath dye out of your system ACTIVITIES May go up and down stairs CAREFULLY Do not drive car FOR 24 HOURS No heavy lifting GREATER THAN 10 POUNDS or pushing or straining FOR 3 DAYS Someone must stay with you at home after the procedure until the morning. BATHING/SHOWERING May shower tomorrow May tub bathe in 1 week WOUND CARE You will go home with a dressing over your heart cath site. Keep a dressing on for the next 24 hours and then leave open to air. Some degree of bruising and tenderness is normal around the heart cath site. It will take a while for any bruising to completely resolve. Keep your site clean and dry. You need to report the following to your senior c software developer: Any draining or oozing from the site Any swelling at the site Any increased pain or tenderness at the site Any numbness in your leg where the procedure was done Any signs of infection IMPORTANT! CALL 911 FOR ANY BLEEDING OR SWELLING AT THE PROCEDURE SITE If there is any large amount of bleeding, you or someone else need to apply direct pressure to the site (just like the nurse did in the heart lab after your procedure). It is very important that you hold constant pressure. Do not release the pressure to check if the bleeding has stopped. You then need to be transported to the nearest emergency room. WATCH FOR SIGNS OF INFECTION (Usually appears 36-48 hours after surgery) A temperature above 100.5 Redness or swelling Increased pain Foul odor or drainage If you have any questions, please call your doctor at the number listed on your follow up instructions. Follow all instructions given to you by your physician Document Released: 02/05/2006 Document Revised: 01/22/2013 Document Reviewed: 02/06/2014 [facility] [place] Patient Information 2015 [employer]. This information is not intended to replace advice given to you by your health care provider. Make sure you discuss any questions you have with your health care provider. 02/01/2022 18:21:32 Moderate Conscious Sedation, Adult, Care After Moderate Conscious Sedation, Adult, Care After These instructions provide you with information about caring for yourself after your procedure. Your health care provider may also give you more specific instructions. Your treatment has been planned according to current medical practices, but problems sometimes occur. Call your health care provider if you have any problems or questions after your procedure. What can I expect after the procedure? After your procedure, it is common: To feel sleepy for several hours. To feel clumsy and have poor balance for several hours. To have poor judgment for several hours. To vomit if you eat too soon. Follow these instructions at home: For at least 24 hours after the procedure: Do not: ?Participate in activities where you could fall or become injured. ?Drive. ?Use heavy machinery. ?Drink alcohol. ?Take sleeping pills or medicines that cause drowsiness. ?Make important decisions or sign legal documents. ?Take care of children on your own. Rest. Eating and drinking Follow the diet recommended by your health care provider. If you vomit: ?Drink water, juice, or soup when you can drink without vomiting. ?Make sure you have little or no nausea before eating solid foods. General instructions Have a responsible adult stay with you until you are awake and alert. Take dhkj-wcb-nacqtgu and prescription medicines only as told by your health care provider. If you smoke, do not smoke without supervision. Keep all follow-up visits as told by your health care provider. This is important. Contact a health care provider if: You keep feeling nauseous or you keep vomiting. You feel light-headed. You develop a rash. You have a fever. Get help right away if: You have trouble breathing. This information is not intended to replace advice given to you by your health care provider. Make sure you discuss any questions you have with your health care provider. Document Released: 11/26/2013 Document Revised: 01/18/2018 Document Reviewed: 05/27/2016 [employer] Patient Education 2020 [employer]. Follow Up Care 01/27/2022 13:32:16 With:ELDA HUNTER MD Address: [address] [place] [address]- When:03/27/2022 15:30:00 Comments:THIS APPOINTMENT WILL BE WITH DR. GARAY [facility] 02-01-2022 Summary of episod e note Discharge Instructions Thank you for allowing [facility] to assist you with your healthcare needs. The following is important discharge information regarding your hospital visit. Your Care Team DANILO FORREST MD What to do next Scheduled Follow-Up Appointments Appointment Type When Where Contact InformationCV OV 03/27/2022 03:30 PM EST [facility] Follow Up Appointments Follow Up with ELDA HUNTER MD When 03/27/2022 03:30 PM EST Why: THIS APPOINTMENT WILL BE WITH DR. GARAY Where: [address] [place] [address]- The Following Activity and Diet Have Been Ordered for You Discharge Activity - Ordered -- Lifting Restricted less than 10 pounds, Follow the post-operative/post-procedure activity instructions provided by your physician's office., 02/01/22 17:07:00 EST Discharge Diet - Ordered -- Follow the post-operative/post-procedure diet instructions provided by your physician's office., 02/01/22 17:07:00 EST Allergies No Known Medication Allergies Medications Please ask your primary doctor or pharmacist before taking any other medication not listed, including over the counter drugs, herbal medications, vitamins and or supplements as they may interact with your home medications. What How Much When Instructions Last Dose New clopidogrel (Plavix 75 mg oral tablet) 1 tab(s) by mouth Once a day Refills: 11 Pickup at [facility] Unchanged albuterol (albuterol Continuous Inhalation Soln) See instructions Unchanged aspirin (aspirin 81 mg oral delayed release tablet) 1 tab(s) by mouth Every day Unchanged atorvastatin (atorvastatin 40 mg oral tablet) 1 tab(s) by mouth Once a day Unchanged budesonide/ formoterol/ glycopyrrolate (Breztri Aerosphere inhalation aerosol) 2 puff(s) by inhalation Two (2) times a day rinse mouth and throat after use Unchanged carvedilol (carvedilol 3.125 mg oral tablet) 1 tab(s) by mouth Twice daily with meals Unchanged nitroGLYcerin (nitroglycerin 0.4 mg sublingual tablet) 1 tab(s) under the tongue Every 5 minutes as needed for for chest pain Unchanged omeprazole (omeprazole 40 mg oral delayed release capsule) 1 cap by mouth Once a day Pharmacy Information [facility]: [id number] [id number] [phone] Please take this list to your next doctor s visit. Bring all medications you take, including over the counter medications, herbals and other supplements with you to your doctor s visit. Patients and families are reminded to discard old lists and to update any records with all medication providers or retail pharmacies. Medication Leaflets clopidogrel (kloe PID oh grel) Plavix What is the most important information I should know about clopidogrel? You should not use this medicine if you have any active bleeding such as a stomach ulcer or bleeding in the brain. Clopidogrel increases your risk of bleeding, which can be severe or life-threatening. Call your doctor or seek emergency medical attention if you have bleeding that will not stop, if you have blood in your urine, black or bloody stools, or if you cough up blood or vomit that looks like coffee grounds. Do not stop taking clopidogrel without first talking to your doctor, even if you have signs of bleeding. Stopping clopidogrel may increase your risk of a heart attack or stroke. What is clopidogrel? Clopidogrel is used to lower your risk of having a stroke, blood clot, or serious heart problem after you've had a heart attack, severe chest pain (angina), or circulation problems. Clopidogrel may also be used for purposes not listed in this medication guide. What should I discuss with my healthcare provider before taking clopidogrel? You should not use clopidogrel if you are allergic to it, or if you have: any active bleeding; or a stomach ulcer or bleeding in the brain (such as from a head injury). Tell your doctor if you have ever had: an ulcer in your stomach or intestines; or a bleeding disorder or blood clotting disorder. Clopidogrel may not work as well if you have certain genetic factors that affect the breakdown of this medicine in your body. Your doctor may perform a blood test to make sure clopidogrel is right for you. This medicine is not expected to harm an unborn baby. However, taking clopidogrel within 1 week before childbirth can cause bleeding in the mother. Tell your doctor if you are or plan to become . You should not breastfeed while using this medicine. How should I take clopidogrel? Follow all directions on your prescription label and read all medication guides or instruction sheets. Use these medicines exactly as directed. Clopidogrel can be taken with or without food. Clopidogrel is sometimes taken together with aspirin. Take aspirin only if your doctor tells you to. Clopidogrel keeps your blood from coagulating (clotting) and can make it easier for you to bleed, even from a minor injury. Contact your doctor or seek emergency medical attention if you have any bleeding that will not stop. You may need to stop using clopidogrel for a short time before a surgery, medical procedure, or dental work. Any healthcare provider who treats you should know that you are taking clopidogrel. Do not stop taking clopidogrel without first talking to your doctor, even if you have signs of bleeding. Stopping the medicine could increase your risk of a heart attack or stroke. Store at room temperature away from moisture and heat. What happens if I miss a dose? Take the medicine as soon as you can, but skip the missed dose if it is almost time for your next dose. Do not take two doses at one time. What happens if I overdose? Seek emergency medical attention or call the Poison Help line at . Overdose can cause excessive bleeding. What should I avoid while taking clopidogrel? Avoid alcohol. It can increase your risk of stomach bleeding. Avoid activities that may increase your risk of bleeding or injury. Use extra care to prevent bleeding while shaving or brushing your teeth. If you also take aspirin: Ask a doctor or pharmacist before using medicines for pain, fever, swelling, or cold/flu symptoms. They may contain ingredients similar to aspirin (such as salicylates, ibuprofen, ketoprofen, or naproxen). Taking these products together can increase your risk of bleeding. What are the possible side effects of clopidogrel? Get emergency medical help if you have signs of an allergic reaction: hives; difficult breathing; swelling of your face, lips, tongue, or throat. Clopidogrel increases your risk of bleeding, which can be severe or life-threatening. Call your doctor or seek emergency medical attention if you have bleeding that will not stop, if you have blood in your urine, black or bloody stools, or if you cough up blood or vomit that looks like coffee grounds. Also call your doctor at once if you have: nosebleeds, pale skin, easy bruising, purple spots under your skin or in your mouth; jaundice (yellowing of your skin or eyes); fast heartbeats, shortness of breath; headache, fever, weakness, feeling tired; little or no urination; a seizure; low blood sugar--headache, hunger, sweating, irritability, dizziness, fast heart rate, and feeling anxious or shaky; or signs of a blood clot--sudden numbness or weakness, confusion, problems with vision or speech. Common side effects may include: bleeding. This is not a complete list of side effects and others may occur. Call your doctor for medical advice about side effects. You may report side effects to FDA at 8-947-CUE-0644. What other drugs will affect clopidogrel? Sometimes it is not safe to use certain medications at the same time. Some drugs can affect your blood levels of other drugs you take, which may increase side effects or make the medications less effective. Tell your doctor about all your other medicines, especially: a stomach acid nurse aide such as omeprazole, Nexium, or Prilosec; an antidepressant such as citalopram, fluoxetine, sertraline, Cymbalta, Effexor, Lexapro, Pristiq, or Prozac; rifampin; a blood thinner--warfarin, Coumadin, Jantoven; or NSAIDs (nonsteroidal anti-inflammatory drugs)--aspirin, ibuprofen (Advil, Motrin), naproxen (Aleve), celecoxib, diclofenac, indomethacin, meloxicam, and others. This list is not complete. Other drugs may affect clopidogrel, including prescription and njqh-tzb-zdagniq medicines, vitamins, and herbal products. Not all possible drug interactions are listed here. Where can I get more information? Your pharmacist can provide more information about clopidogrel. Remember, keep this and all other medicines out of the reach of children, never share your medicines with others, and use this medication only for the indication prescribed. Every effort has been made to ensure that the information provided by [employer]. ('[employer]') is accurate, up-to-date, and complete, but no guarantee is made to that effect. Drug information contained herein may be time sensitive. [employer] information has been compiled for use by healthcare practitioners and consumers in the [place] and therefore [employer] does not warrant that uses outside of the [place] are appropriate, unless specifically indicated otherwise. [employer] drug information does not endorse drugs, diagnose patients or recommend therapy. [employer] drug information is an informational resource designed to assist licensed healthcare practitioners in caring for their patients and/or to serve consumers viewing this service as a supplement to, and not a substitute for, the expertise, skill, knowledge and judgment of healthcare practitioners. The absence of a warning for a given drug or drug combination in no way should be construed to indicate that the drug or drug combination is safe, effective or appropriate for any given patient. [employer] does not assume any responsibility for any aspect of healthcare administered with the aid of information [employer] provides. The information contained herein is not intended to cover all possible uses, directions, precautions, warnings, drug interactions, allergic reactions, or adverse effects. If you have questions about the drugs you are taking, check with your doctor, nurse or pharmacist. Copyright 1995-1320 [employer]. Version: 18.01. Revision Date: 05/19/2020. Education Materials HEART CATHETERIZATION/PCI (groin) Discharge Instructions DIET INSTRUCTIONS Drink plenty of fluids for the next 48 hours to help your kidneys flush the heart cath dye out of your system ACTIVITIES May go up and down stairs CAREFULLY Do not drive car FOR 24 HOURS No heavy lifting GREATER THAN 10 POUNDS or pushing or straining FOR 3 DAYS Someone must stay with you at home after the procedure until the morning. BATHING/SHOWERING May shower tomorrow May tub bathe in 1 week WOUND CARE You will go home with a dressing over your heart cath site. Keep a dressing on for the next 24 hours and then leave open to air. Some degree of bruising and tenderness is normal around the heart cath site. It will take a while for any bruising to completely resolve. Keep your site clean and dry. You need to report the following to your senior c software developer: Any draining or oozing from the site Any swelling at the site Any increased pain or tenderness at the site Any numbness in your leg where the procedure was done Any signs of infection IMPORTANT! CALL 911 FOR ANY BLEEDING OR SWELLING AT THE PROCEDURE SITE If there is any large amount of bleeding, you or someone else need to apply direct pressure to the site (just like the nurse did in the heart lab after your procedure). It is very important that you hold constant pressure. Do not release the pressure to check if the bleeding has stopped. You then need to be transported to the nearest emergency room. WATCH FOR SIGNS OF INFECTION (Usually appears 36-48 hours after surgery) A temperature above 100.5 Redness or swelling Increased pain Foul odor or drainage If you have any questions, please call your doctor at the number listed on your follow up instructions. Follow all instructions given to you by your physician Document Released: 02/05/2006 Document Revised: 01/22/2013 Document Reviewed: 02/06/2014 ExitCare Patient Information 2015 [email or web address], [employer]. This information is not intended to replace advice given to you by your health care provider. Make sure you discuss any questions you have with your health care provider. Moderate Conscious Sedation, Adult, Care After These instructions provide you with information about caring for yourself after your procedure. Your health care provider may also give you more specific instructions. Your treatment has been planned according to current medical practices, but problems sometimes occur. Call your health care provider if you have any problems or questions after your procedure. What can I expect after the procedure? After your procedure, it is common: To feel sleepy for several hours. To feel clumsy and have poor balance for several hours. To have poor judgment for several hours. To vomit if you eat too soon. Follow these instructions at home: For at least 24 hours after the procedure: Do not: ? Participate in activities where you could fall or become injured. ? Drive. ? Use heavy machinery. ? Drink alcohol. ? Take sleeping pills or medicines that cause drowsiness. ? Make important decisions or sign legal documents. ? Take care of children on your own. Rest. Eating and drinking Follow the diet recommended by your health care provider. If you vomit: ? Drink water, juice, or soup when you can drink without vomiting. ? Make sure you have little or no nausea before eating solid foods. General instructions Have a responsible adult stay with you until you are awake and alert. Take vecq-omh-ozoouyv and prescription medicines only as told by your health care provider. If you smoke, do not smoke without supervision. Keep all follow-up visits as told by your health care provider. This is important. Contact a health care provider if: You keep feeling nauseous or you keep vomiting. You feel light-headed. You develop a rash. You have a fever. Get help right away if: You have trouble breathing. This information is not intended to replace advice given to you by your health care provider. Make sure you discuss any questions you have with your health care provider. Document Released: 11/26/2013 Document Revised: 01/18/2018 Document Reviewed: 05/27/2016 [employer] Patient Education 2020 [employer]. Additional Information VACCINATE! IT SAVES LIVES! Members of the community who have not yet received the COVID-19 vaccine and would like to receive it can visit one of [facility] vaccine clinics. There are many vaccine clinic locations within the [facility]. For locations and available times, please visit [email or web address] It is important to note that some COVID mobile vaccine clinics are held outdoors and may be canceled in rainy or stormy conditions. To learn more about pediatric vaccinations (ages 5-11), we invite you to visit the [facility] webpage. [email or web address] [email or web address] To learn more about the COVID-19 vaccine, we invite you to visit the [facility] website for a list of frequently asked questions. [email or web address] [facility] Access Instructions: Stay connected with your healthcare team and access your personal medical information anytime with the [facility] Patient Portal.If you would like a full copy of your medical records, please contact the [facility] Medical Records Department, Sunday through Sunday between 8a.m. and 4:30p.m. Please follow the directions below to access the portal: 1.Access the email account you provided upon registration to the the [facility].2.Look for an invitation email from [facility].3.Open the email and access the invitation link: Accept Invitation to [facility]4.Fill in the required cosme to create your account. Sign into [email or web address] with your username and password that you created in the above steps to stay up to date. You can then view a summary of results, a summary of your visits, and the ability to download your summaries to your computer or send the information securely to a physician. Remember that your healthcare information is confidential, so carefully consider who you will allow to register on the [facility] Patient Portal for access to your information. You can also access the [facility] Patient Portal on the [employer] june. Simply click on Health Records under Health Data and then click on the [employer] logo. HOW TO SAFELY DISPOSE OF PRESCRIPTION MEDICATIONS Please use one of the following methods to safely dispose of your unused medications. 1.Use a drug disposal kit: the drug disposal pouch allows you to safely discard your old and unused drugs. Ask your nurse to give you one when you are discharged.2.Visit a local take-back location: Many local pharmacies and police departments have programs that collect old and unwanted prescription drugs. Call your local pharmacy or go to http://bit.Forsitec/8W5Hg3h to find one close to you.3.Make use of household items: Use cat litter or old coffee grounds to dispose medications if other options are not available. Mix your drugs with these household products, seal them in an airtight container and throw it into the garbage. Call [facility]: [phone] to be sure your drugs can be disposed of in this way. Some medicines may require a different approach.4.Never flush your medications down the toilet. IF YOU HAVE BEEN PRESCRIBED AN OPIOID FOR PAIN If you have been prescribed an opioid (such as hydrocodone, oxycodone or morphine), it is critical to understand the possible side effects and risks of opioid pain medications. Even when taken as directed, opioids can have several side effects including: Tolerance, meaning you might need to take more of a medication for the same pain relief. Nausea, vomiting and/or constipation. Sleepiness, dizziness, dry mouth, confusion, depression or itching. Physical dependence, meaning you have withdrawal symptoms when a medication is stopped, can develop within a few days. KNOW YOUR RESPONSIBILITIES It is important to know exactly how much and how often to take the opioid pain medications you are prescribed. Never take opioids in higher amounts or more often than prescribed. Do not combine opioids with alcohol or other drugs that cause drowsiness, such as benzodiazepines, also known as benzos, including diazepam and alprazolam, muscle relaxants or sleep aids. Never sell or share prescription opioids. This is illegal. Store opioids in a secure place and out of reach of others (including children, family, friends and visitors). The last page of this document has been signed and retained as a CHART COPY. Signatures Patient Education Materials 3- Heart Cath/PCI groin (11/2017) (CUSTOM) Moderate Conscious Sedation, Adult, Care After Medication Leaflets clopidogrel My discharge plan and instructions have been reviewed and explained to me and I,MARIBELL MAZARIEGOS understand my current condition and have read and understand these discharge instructions. I have received a written copy of the plan/instructions. If I have questions, I am aware that I should contact my doctor. 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 Currently denies having any chest pain. We will proceed with a left heart catheterization. Patient already had a bronchoscopy done that did not show any active bleeding. As per pulmonology is okay for dual antiplatelet therapy if needed. Addendum by ELDA HUNTER MD on February 01, 2022 12:00:54 EST I have personally seen, examined, and evaluated the patient on the encounter date. I have reviewed the fellow s documentation and agree with the fellow s findings and plan as documented, unless otherwise stated. Patient has baseline risk and benefits of catheterization possible coronary venture understands all the risk and benefits willing to proceed further decisions in patient's management based on results of heart catheterization. Future Appointments Appointment Date:03/27/2022 03:30:00 PM Scheduled Provider: Location:[facility] Appointment Type:[facility] Future Scheduled Tests Laboratory* Lipid Profile 12/28/21 Radiology* NM Myocardial Spect Rest/Stress 12/28/21 [facility] 12-14-2022 History and physical note Date of Service 02/01/22 Chief Complaint CP History of Present Illness Patient is a 46 year old male with history of CAD, tobacco use coming in for follow up He was 24 years old, he states he had CT presenting as chest heaviness and had PCI (likely LAD stent)in [place]. He then had another NSTEMI described as burning sensation in 2015 and had PCI of ramus in September and presented with angina in Jan, same year and had PCI of proximal RCA His last cath was in 07/2016 in [facility] for chest pain. He had patent RCA and LAD stents. Has 40% stenosis in Left circ and 40% in proximal RCA. iFR of RCA and left circ were within normal limits. EF was 50-55% with moderate hypokinesis of the anterolateral myocardium. He had visits then in the for chest pain that year but left AMA twice. He was started on nitro patch with minimal improvement of symptoms. Deemed chest pain was noncardiac in etiology. He was on aspirin clopidogrel, nitro patch, coreg and rosuvastatin which he all discontinued since 2016. He also continues to smoke 2 PPD. He established care with me in December 2019 and was ordered for stress test but lost to follow up and never had the stress test done He was last seen in May 2020 and complained of chest pain then. Stress test was negative for inducible ischemia but still had symptoms then, cath was scheduled but declined this. He states he had COVID in February and was intubated for 3 weeks. He was seen by Dr. Goodson in June for hemoptysis and for bronchoscopy. He did not have covid test required 3 days prior and so this procedure was not done Has constant chest pain that has been going on for several months now. It is there at rest and on exertion. It is always worse when laying dowon Has shortness of breath with stairs. No PND, orthopnea Never tested for sleep apnea. Still has hemoptysis. She states it is a lot but can't really quantify it. He was last seen in ED in [place] last month for chest pain. EKG showed NSR. Review of Systems Review of systems negative unless stated otherwise Physical Exam Vitals and Measurements T: 36.6 C (Oral) HR: 78 BP: 119/79 HT: 185.4 cm WT: 96.8 kg BMI: 28.16 BMI: 28.16 Weight Dosing Weight: 96.8 kg (02/01/22) General Appearance: Alert and oriented x3 Head: No visible trauma EENT: Bilateral equal pupil no ptosis Neck: No JVD on examination. Cardiac: S1-S2, regular rate and rhythm Lungs: Bilateral equal air entry Abdomen: Distended but not tender. Musculoskeletal: No complaints of muscular pain Extremities: No lower extremity edema Neurological: Alert and oriented no focal neurological deficit Skin: No rash Psychiatric: Mood is normal Lab Results 02/01 06:02 WBC: 10.2 Hgb: 14.4 Hct: 41.4 Platelet: 295 Neutrophil %: 70.1 Protime: 11.7 PT International Ratio: 1.0 Glucose Level: 109 Sodium Level: 137 Potassium Level: 4.3 BUN: 9.0 Creatinine Lvl (s): 1.04 Assessment/Plan #History of coronary artery disease #History of hemoptysis recent bronchoscopy did not show any bleeding #History of noncompliance with medication #Chest pain Plan -Patient came for left heart catheterization. Currently denies having any chest pain. We will proceed with a left heart catheterization. Patient already had a bronchoscopy done that did not show any active bleeding. As per pulmonology is okay for dual antiplatelet therapy if needed. Problem List/Past Medical History Ongoing CAD in [place] artery Hypertension Noncompliance with medications Historical No qualifying data Procedure/Surgical History Cardiac catheterization: 08/03/16 History of repair of inguinal hernia History of right total knee replacement Medications Home Medications (7) Active albuterol Continuous Inhalation Soln See Instructions aspirin 81 mg oral delayed release tablet 81 mg = 1 tab(s), Oral, Daily atorvastatin 40 mg oral tablet 40 mg = 1 tab(s), Oral, qDay Breztri Aerosphere inhalation aerosol 2 puff(s), Inhalation, BID carvedilol 3.125 mg oral tablet 3.125 mg = 1 tab(s), Oral, BIDM nitroglycerin 0.4 mg sublingual tablet 0.4 mg = 1 tab(s), PRN, Sublingual, q5min omeprazole 40 mg oral delayed release capsule 40 mg = 1 cap(s), Oral, qDay Allergies No Known Medication Allergies Social History Alcohol Use: None., 01/07/2020 Nutrition/Health Caffeine intake amount: 8-12 servings per day., 01/12/2020 Substance Abuse Use: Never., 01/07/2020 Tobacco Nicotine Use: 10 or more cigarettes (1/2 pack or more)/day in last 30 days. Type: Cigarettes. Tobacco use per day: 20., 12/28/2021 Family History Cancer: Father. Heart attack: Grandparent. Immunizations No qualifying data available. Code Status No qualifying data available. Digitally Signed by NETTIE BARNEY MD on 02/01/2022 08:15 AM [id number] History and physical note Date of Service 02/01/22 Chief Complaint CP History of Present Illness Patient is a 46 year old male with history of CAD, tobacco use coming in for follow up He was 24 years old, he states he had CT presenting as chest heaviness and had PCI (likely LAD stent)in [place]. He then had another NSTEMI described as burning sensation in 2015 and had PCI of ramus in September and presented with angina in Jan, same year and had PCI of proximal RCA His last cath was in 07/2016 in [facility] for chest pain. He had patent RCA and LAD stents. Has 40% stenosis in Left circ and 40% in proximal RCA. iFR of RCA and left circ were within normal limits. EF was 50-55% with moderate hypokinesis of the anterolateral myocardium. He had visits then in the for chest pain that year but left AMA twice. He was started on nitro patch with minimal improvement of symptoms. Deemed chest pain was noncardiac in etiology. He was on aspirin clopidogrel, nitro patch, coreg and rosuvastatin which he all discontinued since 2016. He also continues to smoke 2 PPD. He established care with me in December 2019 and was ordered for stress test but lost to follow up and never had the stress test done He was last seen in May 2020 and complained of chest pain then. Stress test was negative for inducible ischemia but still had symptoms then, cath was scheduled but declined this. He states he had COVID in February and was intubated for 3 weeks. He was seen by Dr. Goodson in June for hemoptysis and for bronchoscopy. He did not have covid test required 3 days prior and so this procedure was not done Has constant chest pain that has been going on for several months now. It is there at rest and on exertion. It is always worse when laying dowon Has shortness of breath with stairs. No PND, orthopnea Never tested for sleep apnea. Still has hemoptysis. She states it is a lot but can't really quantify it. He was last seen in ED in [place] last month for chest pain. EKG showed NSR. Review of Systems Review of systems negative unless stated otherwise Physical Exam Vitals and Measurements T: 36.6 C (Oral) HR: 78 BP: 119/79 HT: 185.4 cm WT: 96.8 kg BMI: 28.16 BMI: 28.16 Weight Dosing Weight: 96.8 kg (02/01/22) General Appearance: Alert and oriented x3 Head: No visible trauma EENT: Bilateral equal pupil no ptosis Neck: No JVD on examination. Cardiac: S1-S2, regular rate and rhythm Lungs: Bilateral equal air entry Abdomen: Distended but not tender. Musculoskeletal: No complaints of muscular pain Extremities: No lower extremity edema Neurological: Alert and oriented no focal neurological deficit Skin: No rash Psychiatric: Mood is normal Lab Results 02/01 06:02 WBC: 10.2 Hgb: 14.4 Hct: 41.4 Platelet: 295 Neutrophil %: 70.1 Protime: 11.7 PT International Ratio: 1.0 Glucose Level: 109 Sodium Level: 137 Potassium Level: 4.3 BUN: 9.0 Creatinine Lvl (s): 1.04 Assessment/Plan #History of coronary artery disease #History of hemoptysis recent bronchoscopy did not show any bleeding #History of noncompliance with medication #Chest pain Plan -Patient came for left heart catheterization. Currently denies having any chest pain. We will proceed with a left heart catheterization. Patient already had a bronchoscopy done that did not show any active bleeding. As per pulmonology is okay for dual antiplatelet therapy if needed. Problem List/Past Medical History Ongoing CAD in [place] artery Hypertension Noncompliance with medications Historical No qualifying data Procedure/Surgical History Cardiac catheterization: 08/03/16 History of repair of inguinal hernia History of right total knee replacement Medications Home Medications (7) Active albuterol Continuous Inhalation Soln See Instructions aspirin 81 mg oral delayed release tablet 81 mg = 1 tab(s), Oral, Daily atorvastatin 40 mg oral tablet 40 mg = 1 tab(s), Oral, qDay Breztri Aerosphere inhalation aerosol 2 puff(s), Inhalation, BID carvedilol 3.125 mg oral tablet 3.125 mg = 1 tab(s), Oral, BIDM nitroglycerin 0.4 mg sublingual tablet 0.4 mg = 1 tab(s), PRN, Sublingual, q5min omeprazole 40 mg oral delayed release capsule 40 mg = 1 cap(s), Oral, qDay Allergies No Known Medication Allergies Social History Alcohol Use: None., 01/07/2020 Nutrition/Health Caffeine intake amount: 8-12 servings per day., 01/12/2020 Substance Abuse Use: Never., 01/07/2020 Tobacco Nicotine Use: 10 or more cigarettes (1/2 pack or more)/day in last 30 days. Type: Cigarettes. Tobacco use per day: 20., 12/28/2021 Family History Cancer: Father. Heart attack: Grandparent. Immunizations No qualifying data available. Code Status No qualifying data available. Digitally Signed by NETTIE BARNEY MD on 02/01/2022 08:15 AM [facility] [id number] Evaluation + Plan note Future Scheduled Tests Laboratory* Lipid Profile 12/28/21 Radiology* NM Myocardial Spect Rest/Stress 12/28/21 [facility] 07-14-2022 Miscellaneous Notes* Telephone Encounter - Nadine Craig - 09/01/2021 4:35 PM EDT Patient notified * Telephone Encounter - Yolanda Cerda MA - 09/01/2021 4:23 PM EDT Attempted to call patient but there was no answer. Left a message on Zympi requesting a return call. Yolanda Cerda MA * Telephone Encounter - Yony Goodson DO - 09/01/2021 2:20 PM EDT I d/w ambulatory surgery. They will accept a pharmacy reported covid test result 3 days prior * Telephone Encounter - Yolanda Cerda MA - 09/01/2021 2:15 PM EDT Patient is still not agreeable. He states that he is not able to get the Covid test 3 days beforehand at all because he works and his only days off are Sunday and wednesdays. He would like to know if there is anything else testing reese he can do. Yolanda Cerda MA * Telephone Encounter - Yony Goodson DO - 09/01/2021 10:06 AM EDT Can reschedule, but will be ~2-3 weeks * Telephone Encounter - Yolanda Cerda MA - 09/01/2021 9:58 AM EDT Patient states that he will be out of town for the Covid test. He will be in [place]. Is there anything else he can do or should he be rescheduled? Please advise, thanks. Yolanda Cerda MA * Telephone Encounter - Yolanda Cerda MA - 09/01/2021 9:39 AM EDT Patient scheduled for Bronch on 09/06/2021 at 7:30 am. He has his Covid test on 09/03/2021 at 8:20 am at [facility] lab. Faxed orders. Left message for patient to call back. Can I get this Covid order signed? Thanks. Yolanda Cerda MA documented in [facility]22 Miscellaneous Notes* [facility] 3:36 PM EDT Smoking Cessation Navigation Outcome of contact: Left Message Comments: A voicemail has been left for this patient regarding Tobacco Cessation support options. If this patient has any further questions they can email us at [email or web address] or call us at [phone]. ealth Shuttle Driver/Smoking Cessation Navigator: Cristinse [facility] documented in this encounterAdena Health System07-13-2022 NoteHNO ID: [id number] Author: Yony Goodson, DO Service: ? Author Type: Physician Type: Progress Notes Filed: 08/31/2021 12:51 PM Note Text: [facility] Department of Pulmonary AND Sleep Medicine Yony Goodson DO Pulmonary Consult Note - Smoker SERVICE DATE: 08/31/2021 SERVICE TIME: 12:00 PM REASON FOR CONSULT: Hemoptysis. HISTORY OF PRESENT ILLNESS: Maribell Mazariegos is a 46 year old male, with a history of hemoptysis. Patient states that he has been coughing up blood since November/December of last year. Patient was not ill at that point in time. He was diagnosed with Covid in February and Covid pneumonia. He takes a baby aspirin daily. Patient did seek treatment for this, it took awhile because he did not have one at the time. Patient states that when he coughs it is in clots. His chest gets tight. He is diagnosed with COPD. Patient is a current smoker. At the heaviest he smoked 2 PPD, now he is down to 1.5 PPD. He is currently on nicotine patches, states they are not working. Agreeable to Chantix. Patient uses albuterol and Breztri along with a nebulizer. He doesn't feel any different with these. 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 No exotic animals. Denies any exposure to TB that he is aware of. History of lung cancer in his family with his father, aunt and uncle. He states that is is constantly short of breath. Will move forward with bronchoscopy. Follow up after. Advised to stop aspirin. No hemoptysis, chest pain, pleurisy, wasting syndrome or weight loss. I, Yolanda Cerda MA, transcribing for Yony Goodson DO. HISTORY PAST MEDICAL HISTORY Diagnosis Date - Anxiety state - Asthma - Benign essential hypertension - CAD (coronary artery disease) - Chest pain - COPD (chronic obstructive pulmonary disease) ([facility]) - Coronary arteriosclerosis NON -CRITICAL DISEASE - Depression - Dyspnea - Erectile dysfunction c/o - GERD (gastroesophageal reflux disease) - Heart attack ([facility]) - Hyperlipidemia - Neuropathy - Pneumonia, viral - Restless legs - Stroke (cerebrum) ([facility]) PAST SURGICAL HISTORY Procedure Laterality Date - HAND - INGUINAL HERNIA REPAIR HX - KNEE ARTHROSCOPY/SURGERY - RT/LT HEART CATHETERS Social History Tobacco Use - Smoking status: Current Every Day Smoker Packs/day: 2.00 Start date: 1996 - Smokeless tobacco: Never Used - Tobacco comment: now down to 1.5 packs daily 08/31/2021 Vaping Use - Vaping Use: Never used Substance Use Topics - Alcohol use: Not Currently - Drug use: Not Currently ALLERGIES: ALLERGIES No Known Allergies MEDICATIONS: Current Outpatient Medications Medication Sig - carvedilol (COREG) 3.125 mg tablet Take 6.25 mg by mouth. - ADULT LOW DOSE ASPIRIN ORAL Take 81 mg by mouth once daily. - ALBUTEROL SULFATE INHALATION Inhale 1-2 Puffs as instructed every 6 hours as needed. - atorvastatin (LIPITOR) 40 mg tablet Take 40 mg by mouth daily at bedtime. - metoprolol tartrate, short acting, (LOPRESSOR) 25 mg tablet Take 25 mg by mouth every 12 hours. - nicotine (NICODERM) 21 mg/24 hr Apply 1 Patch as directed every 24 hours. - nitroglycerin sublingual (NITROQUICK) 0.4 mg SL tablet Dissolve 0.4 mg under the tongue every 5 minutes as needed for Chest Pain. - ACETAMINOPHEN (TYLENOL ORAL) Take 650 mg by mouth every 4 hours as needed. - BREZTRI AEROSPHERE 160-9-4.8 mcg/actuation HFA aerosol inhaler INHALE 2 PUFFS INTO LUNGS TWICE DAILY - omeprazole (PRILOSEC) 40 mg capsule TAKE 1 CAPSULE BY MOUTH 30 MINUTES BEFORE MORNING MEAL ONCE DAILY - testosterone (ANDRODERM) 2 mg/24 hour Apply 1 Patch as directed once daily. (Patient not taking: Reported on 08/31/2021) - OMEGA-3 ACID ETHYL ESTERS (LOVAZA ORAL) Take by mouth once daily. (Patient not taking: Reported on 08/31/2021 ) - OMEPRAZOLE (PRILOSEC ORAL) Take by mouth once daily. (Patient not taking: Reported on 08/31/2021 ) - ROPINIROLE HCL (REQUIP ORAL) Take by mouth daily at bedtime. (Patient not taking: Reported on 08/31/2021 ) No current facility-administered medications for this visit. IMMUNIZATIONS: There is no immunization history on file for this patient. FAMILY HISTORY Problem Relation Age of Onset - Coronary Artery Disease Father - Heart Father - Coronary Artery Disease Paternal Grandmother - Heart Paternal Grandmother - Coronary Artery Disease Other uncle - Diabetes Other aunt - Diabetes Other uncle - Heart Other uncle I have personally reviewed the patients past medical history including social, family, surgical, diagnostics, and medications./WS REVIEW OF SYSTEMS Review of Systems Constitutional: Negative. HENT: Positive for congestion. Eyes: Negative. Respiratory: Positive for cough, chest tightness, shortness of breath and wheezing. Cardiovascular: Negative. Gastrointestinal: Negative. Endocrine: Negative. Genitourinary: Negative. Musculoskeletal: Negative. Sk (more content not included)...[facility]07-13-2022 Instructions* Patient Instructions* Yolanda Cerda MA - 08/31/2021 12:39 PM EDT Please hold you aspirin starting today (August 31, 2021). Will call with date and time of Lung scope (Bronchoscopy), will make follow up at this time. documented in this encounterAdena Health System07-13-2022 History of Present illness Narrative* Yony Goodson DO - 08/31/2021 12:00 PM EDT [facility] Department of Pulmonary & Sleep Medicine Yony Goodson DO Pulmonary Consult Note - Smoker SERVICE DATE: 08/31/2021 SERVICE TIME: 12:00 PM REASON FOR CONSULT: Hemoptysis. HISTORY OF PRESENT ILLNESS: Maribell Mazariegos is a 46 year old male, with a history of hemoptysis. Patient states that he has been coughing up blood since November/December of last year. Patient was not ill at that point in time. He was diagnosed with Covid in February and Covid pneumonia. He takes a baby aspirin daily. Patient did seek treatment for this, it took awhile because he did not have one at the time. Patient states that when he coughs it is in clots. His chest gets tight. He is diagnosed with COPD. Patient is a current smoker. At the heaviest he smoked 2 PPD, now he is down to 1.5 PPD. He iscurrently on nicotine patches, states they are not working. Agreeable to Chantix. Patient uses albut ambrocio and Breztri along with a nebulizer. He doesn't feel any different with these. 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 No exotic animals. Denies any exposure to TB that he is aware of. History of lung cancer in his family with his father, aunt and uncle. He states that is is constantly short of breath.Will move forward with bronchoscopy. Follow up after. Advised to stop aspirin. No hemoptysis, chestpain, pleurisy, wasting syndrome or weight loss. I, Yolanda Cerda MA, transcribing for Yony Goodson DO. HISTORY PAST MEDICAL HISTORY Diagnosis Date Anxiety state Asthma Benign essential hypertension CAD (coronary artery disease) Chest pain COPD (chronic obstructive pulmonary disease) (H[facility]) Coronary arteriosclerosis NON -CRITICAL DISEASE Depression Dyspnea Erectile dysfunction c/o GERD (gastroesophageal reflux disease) Heart attack (HCC) Hyperlipidemia Neuropathy Pneumonia, viral Restless legs Stroke (cerebrum) (HCC) PAST SURGICAL HISTORY Procedure Laterality Date HAND INGUINAL HERNIA REPAIR HX KNEE ARTHROSCOPY/SURGERY RT/LT HEART CATHETERS Social History Tobacco Use Smoking status: Current Every Day Smoker Packs/day: 2.00 Start date: 1996 Smokeless tobacco: Never Used Tobacco comment: now down to 1.5 packs daily 08/31/2021 Vaping Use Vaping Use: Never used Substance Use Topics Alcohol use: Not Currently Drug use: Not Currently ALLERGIES: ALLERGIES No Known Allergies MEDICATIONS: Current Outpatient Medications Medication Sig carvedilol (COREG) 3.125 mg tablet Take 6.25 mg by mouth. ADULT LOW DOSE ASPIRIN ORAL Take 81 mg by mouth once daily. ALBUTEROL SULFATE INHALATION Inhale 1-2 Puffs as instructed every 6 hours as needed. atorvastatin (LIPITOR) 40 mg tablet Take 40 mg by mouth daily at bedtime. metoprolol tartrate, short acting, (LOPRESSOR) 25 mg tablet Take 25 mg by mouth every 12 hours. nicotine (NICODERM) 21 mg/24 hr Apply 1 Patch as directed every 24 hours. nitroglycerin sublingual (NITROQUICK) 0.4 mg SL tablet Dissolve 0.4 mg under the tongue every 5 minutes as needed for Chest Pain. ACETAMINOPHEN (TYLENOL ORAL) Take 650 mg by mouth every 4 hours as needed. BREZTRI AEROSPHERE 160-9-4.8 mcg/actuation HFA aerosol inhaler INHALE 2 PUFFS INTO LUNGS TWICE DAILY omeprazole (PRILOSEC) 40 mg capsule TAKE 1 CAPSULE BY MOUTH 30 MINUTES BEFORE MORNING MEAL ONCE DAILY testosterone (ANDRODERM) 2 mg/24 hour Apply 1 Patch as directed once daily. (Patient not taking: Reported on 08/31/2021) OMEGA-3 ACID ETHYL ESTERS (LOVAZA ORAL) Take by mouth once daily. (Patient not taking: Reported on 08/31/2021 ) OMEPRAZOLE (PRILOSEC ORAL) Take by mouth once daily. (Patient not taking: Reported on 08/31/2021 ) ROPINIROLE HCL (REQUIP ORAL) Take by mouth daily at bedtime. (Patient not taking: Reported on 08/31/2021 ) No current facility-administered medications for this visit. IMMUNIZATIONS: There is no immunization history on file for this patient. FAMILY HISTORY Problem Relation Age of Onset Coronary Artery Disease Father Heart Father Coronary Artery Disease Paternal Grandmother Heart Paternal Grandmother Coronary Artery Disease Other uncle Diabetes Other aunt Diabetes Other uncle Heart Other uncle I have personally reviewed the patients past medical history including social, family, surgical, diagnostics, and medications./WS REVIEW OF SYSTEMS Review of Systems Constitutional: Negative. HENT: Positive for congestion. Eyes: Negative. Respiratory: Positive for cough, chest tightness, shortness of breath and wheezing. Cardiovascular: Negative. Gastrointestinal: Negative. Endocrine: Negative. Genitourinary: Negative. Musculoskeletal: Negative. Skin: Negative. Allergic/Immunologic: Negative. Neurological: Negative. Hematological: Negative. Psychiatric/Behavioral: Negative. Vital Signs: BP 118/79 Pulse 84 Ht 6' .008 (1.83m) Wt 222 lb (100.7kg) SpO2 95% BMI 30.10 kg/(m^2). SMOKING CESSATION COUNSELING Smoking cessation methods including Nicotine Replacement Therapies, Bupropion, Varenicline, and Behavior Modification were discussed with the patient and assistance offered. The medical conditions adversely affected by cigarette use include:Lung Cancer. The patient is currently ready to quit. I personally spent greater than 3 minutes in counseling. Quit date 08/31/22. PHYSICAL EXAM: Vitals: BP 118/79 Pulse 84 Ht 6' .008 (1.83m) Wt 222 lb (100.7kg) SpO2 95% BMI 30.10 kg/(m^2). Const: Appears appropriate for age, well-developed, well-hydrated, well- nourished and pleasant. No signs of acute distress present and no signs of respiratory distress present. Breasts are examined. External genitalia and rectal exams were not performed. Head/Face: Normal on inspection. Symmetric facies. Eyes: Pupils equal round and reactive to light and accommodation. Visual acuity grossly intact. ENMT: External ears wnl. Tympanic membranes translucent, with good landmarks bilaterally. Nasal mucosa is pink and moist. Septum is in the midline. Inferior turbinate hypertrophy. Scattered, poor teeth. Oropharynx: Appears normal. Tongue appears normal. Mallampati Score: Class III: Soft palate, base of uvula are wnl. No oral lesions, or candidiasis. Neck: Supple and symmetric. Palpation reveals no lymphadenopathy. Trachea midline. Thyroid is normal size. No JVD. Carotids: 2+upstroke and equal bilaterally, without bruits. Resp: AP diameter is unremarkable. Respiration rate is normal. No use of accessory muscles noted. No wheezing. Percussion is resonant and equal. Lungs are clear bilaterally. Voice resonance is clear.Chest is normal to inspection and palpation. No extranneous sounds, wheeze, rale, rhonchi, rub, dullness to percussion, or egophony. No bronchial breath sounds, or pectoriloquy. No laryngeal stridor. CV: S1 is normal. S2 is normal. No murmur, clicks, gallops or rub. Capillary refill is normal. No LV or RV heave. No gross pulse deficits. Abdomen: Positive bowel sounds. No bruits. No tenderness over the abdomen on percussion. No pulsatile masses present. No palpable hepatosplenomegaly. No pulsatile mass, bruit, and inguinal adenopathy, or femoral bruits. Lymph: No palpable or visual regional lymphadenopathy. Musculo: Upper Extremities: Normal muscle tone bilaterally. Normal ROM bilaterally. Lower Extremities: Normal muscle tone. Full ROM bilaterally. No digital clubbing, cyanosis , lymphedema, or pittingedema. Skin: Skin warm and dry with no evidence of unusual rashes or suspicious lesions. No obvious decubiti, or active synovitis. Neuro: Alert and oriented 3. Achilles and patellar DTR's are brisk and symmetrical. Coordination normal. Good mobility of all extremities. Cranial nerves grossly intact. Psych: Affect is normal. Thought process appears clear and appropriate. M.Obese. DATA REVIEW Chest X-rays: 03/03/2021 Bibasilar atelectasis or infiltrates slightly greater on the right. No pneumothorax or significant pleural effusion. Cardiac and mediastinal silhouettes unremarkable. No acute osseous abnormality. Telemetry leads overlie the chest. CTA chest: 03/03/2021 1. No pulmonary embolus. 2. Bibasilar atelectasis or infiltrates. Echo: 06/08/2020 EF 50-55%. Estimated right ventricular systolic pressure is 30 mm Hg. Spirometry here today shows a restrictive pattern: (Fev1=1.8L) Oximetry : 95% saturated at rest on room air. ASSESSMENT/PLAN: 1. Hemoptysis - ICD9: 786.30, ICD10: R04.2 (primary diagnosis) Hold aspirin. Bronchoscopy . 2. Tobacco use current - ICD9: 305.1, ICD10: Z72.0 - Cessation encouraged. - Physiologic and physical aspects of tobacco addiction as well as strategies for quitting were discussed. - Counseling was given focusing on the harmful effects of this addiction especially given the patient's medical condition(s) which will be worsened because of the chemicals in tobacco. - CONSULT TO SMOKING CESSATION 3. Chronic obstructive pulmonary disease, unspecified COPD type (HCC) - ICD9: 496, ICD10: J44.9 Breztri/Ventolin 4. SOB (shortness of breath) on exertion - ICD9: 786.05, ICD10: R06.02 5. 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 History of 2019 novel coronavirus disease (COVID-19) - ICD9: V12.09, ICD10: Z86.16 Yony Goodson (Electronically signed expedite mailing) FOLLOW UP: Return in about 2 weeks (around 09/14/2021). I have discussed the recommended treatment, alternative treatments and other treatment options in detail. I have discussed the risks, benefits and side effects of the recommended treatment in detail as well. I have attempted to answer all their questions to their satisfaction, and understanding of the explanation has been voiced. With approval we will pursue the recommended treatment. I, Yony Goodson, have reviewed and agree with the information in the medical record transcribed by Yolanda Cerda MA. 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 History of 2019 novel coronavirus disease (COVID-19) documented in this encounter [facility] course Narrative No data available for this section [facility] Note* SYSTEM: SIGN SYSTEM: SIGN, MODIFY SYSTEM: MODIFY, SIGN SYSTEM: SIGN, MODIFY SYSTEM: MODIFY, VERIFY Event Display: Cardiac Catheterization -CV Authored Date: [id number] [facility] Reason for referral (narrative)* Outpatient Procedure (Routine) - Pending Review Specialty Diagnoses / Procedures Referred By Sully lopez Ref[facility] Diagnoses SOB (shortness of breath) on exertion Procedures SPIROMETRY BASELINE ONLY SPMTRY W/VC EXPIRATORY ZACKARY W/WO MXML VOL VNTJ Hamzah Yony Trent, DO [address] [place] [id number] [facility] [address] [place] [address] Referral ID Status Reason Start Date Expiration Date Visits Requested Visits Authorized [id number] Pending Review Auto-Generat ed Referral 08/31/2021 09/30/2022 1 1 * Outpatient Procedure (Routine) - Pending Review Specialty Diagnoses / Procedures Referred By Sully lopez Referred To Contact [facility] Diagnoses Hemoptysis Procedures BRONCHOSCOPY BRNCC INCL FLUOR GDNCE DX W/CELL WASHG SPX Yony Goodson, DO [address] [place] [phone] [facility] [address] [place], [place] [phone] Referral ID Status Reason Start Date Expiration Date Visits Requested Visits Authorized [id number] Pending Review Auto-Generat ed Referral 08/31/2021 09/30/2022 1 1 [facility] Summary Purpose Family History No Family History Records FoundNo Family History Records FoundNo Family History Records FoundNo Family History Records FoundNo Family History Records FoundNo Family History Records Found No data available for this section No Family History Records Found Advance Directives No Advanced Directives Records FoundNo Advanced Directives Records FoundNo Advanced Directives Records FoundNo Advanced Directives Records FoundNo Advanced Directives Records FoundNo Advanced Directives Records FoundNo Advanced Directives Records Found Additional Source Comments (unrecognized sect ion and content) No Status Records FoundNo Status Records FoundNo Status Records FoundNo Status Records FoundNo Status Records FoundNo Status Records FoundNo Status Records Found INFORMATION SOURCE (unrecogn ized section and content) DATE CREATED AUTHOR AUTHOR'S ORGANIZ ATION 08/15/2017 [facility] DATE CREATED AUTHOR AUTHOR'S ORGANIZ ATION 05/13/2021 [facility] DATE CREATED AUTHOR AUTHOR'S ORGANIZ ATION 09/07/2021 [facility] DATE CREATED AUTHOR AUTHOR'S ORGANIZ ATION 01/16/2022 [facility] DATE CREATED AUTHOR AUTHOR'S ORGANIZ ATION 03/26/2022 [facility] DATE CREATED AUTHOR AUTHOR'S ORGANIZ ATION 10/18/2022 [facility] ([place]) Source Comments (unrecognize d section and content) In the event this informatio n is protected by the Federal Confidentiality of Alcohol and Drug Abuse Patient Records regulations: The Federal rules restrict any use of the information to criminally investigate or prosecute any alcohol or drug abuse patient.[facility] System[facility] the event this information is protected by the Federal Confidentiality of Alcohol and Drug Abuse Patient Records regulations: The Federal rules restrict any use of the information to criminally investigate or prosecute any alcohol or drug abuse patient.[facility] SystemIn the event this information is protected by the Federal Confidentiality of Alcohol and Drug Abuse Patient Records regulations: The Federal rules restrict any use of the information to criminally investigate or prosecute any alcohol or drug abuse patient.[facility] SystemIn the event this information is protected by the Federal Confidentiality of Alcohol and Drug Abuse Patient Records regulations: The Federal rules restrict any use of the information to criminally investigate or prosecute any alcohol or drug abuse patient.[facility] Reason for Visit (unrecogniz ed section and content) Reason Comments Smoking Cessation Reason Comments Procedure Care Teams (unrecognized sec tion and content) Microwave Technician Relationship Specialty Start Date End Date Danilo Forrest, [address] [address] PCP - General Family Practice 08/31/21 Microwave Technician Relationship Specialty Start Date End Date Danilo Forrest, [address] [address] PCP - General Family Practice 08/31/21 Microwave Technician Relationship Specialty Start Date End Date Danilo Forrest [address] [address] PCP - General Family Practice 08/31/21 Care Team (unrecognized sect ion and content) Care Team Personnel Name: DANILO FORREST MD Member Role: Primary Care Physician Address: Address: [address] [id number]- Care Team Related Persons Name: KO CHOWDHURY FOR RECORDS PERTAINING TO PATIENTS WHO ARE OR HAVE BEEN ENROLLED IN A CHEMICAL DEPENDENCY/SUBSTANCEABUSE PROGRAM, SOME INFORMATION MAY BE OMITTED. This clinical summary was aggregated from multiple sources. Caution should be exercised in using it in the provision of clinical care. This summary normalizes information from multiple sources, and as a consequence, information in this document may materially change the coding, format and clinical context of patient data. In addition, data may be omitted in some cases. CLINICAL DECISIONS SHOULD BE BASED ON THE PRIMARY CLINICAL RECORDS. [facility] [email or web address] [facility]. provides no warranty or guarantee of the accuracy or completeness of information in this document.
--- NOTE | 2023-04-26 08:56 | PCM.PSN.6M ---
PSN 6 Minute Walk Test 6 Minute Walk Test 6 Minute Walk Test: 6 Minute Walk Test PSN:6-Minute Walk Test Start: 04/25/23 12:47 Freq: Status: Active Protocol: RESP.6MINW Document 04/25/23 12:47 LINO (Rec: 04/25/23 12:50 LINO [id number]) 6 Minute Walk Test Date Performed 04/25/23 Time Performed 12:30 Height 6 ft Weight: 220 lb Weight in Pounds 220.[address]: Bahman Forrest Assistive device used: None Pre-test Oxygen Delivery Method Room Air Pulse Ox 95 Pulse Rate (60-100) 89 Dyspnea Fausto Scale (0-10) 2 Exertion Fausto Scale (6-20) 6 1st minute Oxygen Delivery Method Room Air Pulse Ox 97 Pulse Rate (60-100) 96 2nd minute Oxygen Delivery Method Room Air Pulse Ox 98 Pulse Rate (60-100) 98 Number of Rests Taken 1 Reported Symptoms Increased Work of Breathing, Dizziness 3rd minute Oxygen Delivery Method Room Air Pulse Ox 96 Pulse Rate (60-100) 90 4th minute Oxygen Delivery Method Room Air Pulse Ox 96 Pulse Rate (60-100) 96 5th minute Oxygen Delivery Method Room Air Pulse Ox 96 Pulse Rate (60-100) 93 6th minute Oxygen Delivery Method Room Air Pulse Ox 98 Pulse Rate (60-100) 95 Dyspnea Fausto Scale (0-10) 4 Exertion Fausto Scale (6-20) 14 Post-test Oxygen Delivery Method Room Air Pulse Ox 97 Pulse Rate (60-100) 86 Full Laps Walked 12 Partial Lap, Number of Tiles Walked 2 Total Distance Walked (ft) 710 Interpretation Interpretation: The patient ambulated 710 feet over the course of 6 minutes beginning on room air without assistive devices. Pretesting oxygen saturation was noted to be 95% on room air. With ambulation, the mustapha oxygen saturation was 96%. There was no significant exertional oxygen desaturation. Recommendations Recommendations: There is no indication for the use of supplemental oxygen at this time.
== END | disposition home or self-care (01) ==
LOC: PSN 12:32
PROVIDERS: Referring Provider Internal Medicine Critical Care Medicine; Visit Provider Internal Medicine Critical Care Medicine
DX: J44.9 Chronic obstructive pulmonary disease, unspecified (principal)
CPT/HCPCS: 94618

== ENCOUNTER 2023-06-20 07:58 | Outpatient (CLI) | payer MEDICAID, SELFPAY ==
--- NOTE | 2023-06-20 08:00 | ART_ITS ---
Reason For Study: BLE Pain Procedure A bilateral lower extremity continuous wave Doppler with analog waveform analysis and ankle brachial indexes. Left Segmental Pressures Left brachial= 135mmHg. Left posterior tibial artery = 154mmHg. Left dorsalis pedis artery = 157mmHg. Left digit = 143 mmHg. The left posterior tibial artery waveforms are triphasic. The left dorsalis pedis waveforms are triphasic. Right Segmental Pressures Right brachial= 138mmHg. Right posterior tibial artery = 163mmHg. Right dorsalis pedis artery = 160mmHg. Right digit = 117 mmHg. The right posterior tibial artery waveforms are triphasic. The right dorsalis pedis waveforms are triphasic. Indices The right ankle brachial index by the posterior tibial artery is 1.18. The right ankle brachial index by the dorsalis pedis is 1.16. The right digital-brachial index is 0.85. The left ankle brachial index by the posterior tibial artery is 1.12. The left ankle brachial index by the dorsalis pedis is 1.14. The left digital-brachial index is 1.04. VL/Ankle Brachial Index Interpretation Summary Triphasic Doppler waveforms are noted at ankle level bilaterally. Pulse-volume recordings appear satisfactory at ankle and digital levels bilaterally. Resting ankle-brachial in dices are normal bilaterally. Digital-brachial indices are normal bilaterally. There is no evidence of significant arterial occlusive disease in the lower ext remities bilaterally. Ordering Physician: LORI ALVARADO Referring Physician: Rona Olsen Performed By: Lyle Grove RVT and Student
== END 2023-06-20 23:59 | disposition home or self-care (01) ==
DX: M79.604 Pain in right leg (principal); M79.605 Pain in left leg
CPT/HCPCS: 93922

== ENCOUNTER → 2023-09-19 | Outpatient (CLI) | payer MEDICAID, SELFPAY ==
[2023-09-19 09:48] LABS: Absolute Lymphocyte Count 2.65 X10^3/uL (0.83-4.51); Absolute Neutrophil Count 7.7 X10^3/uL (2.0-7.7); Basophil# 0.06 X10^3/uL; Basophil% 0.5 % (0-1); Eosinophil# 0.25 X10^3/uL; Eosinophils% 2.2 % (0-5); Hematocrit 46.3 % (40-54); Hemoglobin 15.8 g/dL (13.0-16.5); Lymphocyte # 2.65 X10^3/ul (0.83-4.51); Lymphocyte % 22.9 % (19-41); Mean Corp Hgb Conc 34.1 g/dL (32-36); Mean Corpuscular Hgb 30.6 pg (27.0-32.0); Mean Corpuscular Volume 89.6 fL (80-94); Mean Platelet Vol. 8.2 fl (6.2-12.0); Monocyte# 0.92 X10^3/uL; Monocyte% 7.9 % (0-10); NRBC Flagged by Analyzer 0 % (0-5); Neutrophil # 7.67 X10^3/uL (2.7-7.7); Neutrophil % 66.2 % (47-70); Platelet Count 306 K/mm3 (150-450); RBC Distribution Width CV 13.4 % (11.6-14.6); RBC Distribution Width SD 43.7 fl (35.1-43.9); Red Blood Count 5.17 M/mm3 (4.6-6.2); White Blood Count 11.6 K/mm3 (4.4-11.0)
== END | disposition home or self-care (01) ==
LOC: PAVLAB 09:19
PROVIDERS: PCP Nurse Practitioner Family; Referring Provider Nurse Practitioner Acute Care; Visit Provider Nurse Practitioner Acute Care
DX: R05.3 Chronic cough (principal)
CPT/HCPCS: 36415; 85025

== ENCOUNTER → 2023-11-20 | Outpatient (CLI) | payer MEDICAID, SELFPAY ==
--- NOTE | 2023-11-20 06:47 | MRI_ITS ---
STUDY: MRI LUMBAR SPINE WITH AND WITHOUT CONTRAST REASON FOR EXAM: Male, 48 years old. LEG PAIN TECHNIQUE: Standardized fat and water weighted pulse sequences were obtained in the sagittal and axial planes. IV 19ml clariscan was administered for the contrast portion of the examination. COMPARISON: None FINDINGS: T12-L1: Normal endplates. Normal disc height, hydration and morphology. Normal bilateral facet joints. Normal central canal and bilateral lateral recesses. Normal bilateral intervertebral neural foramina. Normal lumbar lordosis. There is no substantial scoliosis. Normal conus medullaris that terminates at T12-L1 L1-2: Normal endplates. Normal disc height, hydration and morphology. Normal bilateral facet joints. Normal central canal and bilateral lateral recesses. Normal bilateral intervertebral neural foramina. L2-3: Normal endplates. Normal disc height, desiccation and normal morphology. Normal bilateral facet joints. Normal central canal and bilateral lateral recesses. Normal bilateral intervertebral neural foramina. L3-4: Normal endplates. Normal disc height, desiccation and tiny right foraminal disc protrusion. Normal bilateral facet joints. Normal central canal and bilateral lateral recesses. Mild right neural foraminal encroachment. L4-5: Schmorl''s node of the superior endplate of L5. Normal disc height, desiccation and small left foraminal disc protrusion. Mild facet arthropathy. Normal central canal and bilateral lateral recesses. Mild right neural foraminal encroachment and moderate narrowing of the left.. L5-S1: Normal endplates. Normal disc height, desiccation and minimal annular bulge with tiny central/left posterolateral disc protrusion impinging upon the descending left S1 nerve root.. Normal bilateral facet joints. Normal central canal and bilateral lateral recesses. Mild bilateral neural foraminal encroachment Normal visualized sacral ala. Normal visualized paraspinous soft tissue structures. MRI/Spine Lumbar W/WO Contrast IMPRESSION: No evidence for acute fracture is fixation.. Multilevel disc degeneration and spinal stenosis secondary to disc disease and facet arthropathy more pronounced on the left at L4-5 Findings as above Electronically Signed: Kurtsi Guzman MD at 23:08 EDT ,
[2023-11-20 07:17] LABS: CREATININE FINGERSTICK < 1.0 mg/dL (0.70-1.30); EGFR FINGERSTICK > 60.0000 mL/min (>60)
== END | disposition home or self-care (01) ==
LOC: MRI 06:43
PROVIDERS: PCP Nurse Practitioner Family
DX: M79.606 Pain in leg, unspecified (principal)
CPT/HCPCS: 72158; A9575

== ENCOUNTER → 2024-01-21 | Outpatient (CLI) | payer MEDICAID, SELFPAY ==
[2024-01-21 11:30] LABS: Amphetamine Urine VISTA NEGATIVE (<1000 ng/mL); Barbiturate Urine VISTA NEGATIVE (< 200 ng/mL); Benzodiazepine Urine VISTA NEGATIVE (< 200 ng/mL); Cocaine Urine VISTA NEGATIVE (< 300 ng/mL); Ecstacy Urine VISTA NEGATIVE (< 500 ng/mL); Methadone Urine VISTA NEGATIVE (< 300 ng/mL); PCP Urine VISTA NEGATIVE (< 25 ng/mL); THC Urine VISTA NEGATIVE (< 50 ng/mL); Vista UDS pH Range 5
== END | disposition home or self-care (01) ==
PROVIDERS: PCP Nurse Practitioner Family; Referring Provider Anesthesiology Pain Medicine; Visit Provider Anesthesiology Pain Medicine
DX: F11.20 Opioid dependence, uncomplicated (principal)
CPT/HCPCS: 80307

== ENCOUNTER → 2024-02-19 | Outpatient (CLI) | payer MEDICAID, SELFPAY ==
--- NOTE | 2024-02-19 13:33 | RAD_ITS ---
STUDY: X-RAY CHEST REASON FOR EXAM: Male, 48 years old. shortness of breath, history of COPD and asthma TECHNIQUE: PA and lateral views of the chest. COMPARISON: None. FINDINGS: The lungs are clear and expanded. There is no demonstrated pleural abnormality. Normal size heart. Normal mediastinum and shorty. Normal visualized pulmonary arteries. Normal visualized aortic arch and descending thoracic aorta. Normal visualized thoracic spine. Normal visualized ribs, clavicles, and shoulders. There is no demonstrated abnormality of the visualized soft tissue structures of the upper abdomen. RAD/Chest PA and Lateral IMPRESSION: Normal x-ray examination of the chest. Electronically Signed: Randy Mercer MD at 23:55 EST ,
== END | disposition home or self-care (01) ==
LOC: RAD 13:30
PROVIDERS: PCP Nurse Practitioner Family; Referring Provider Nurse Practitioner Family; Visit Provider Nurse Practitioner Family
DX: R06.02 Shortness of breath (principal)
CPT/HCPCS: 71046

== ENCOUNTER → 2024-02-21 | Outpatient (CLI) | payer MEDICAID, SELFPAY | END | disposition home or self-care (01) | LOC: PSN 08:45 | PROVIDERS: PCP Nurse Practitioner Family; Referring Provider Nurse Practitioner Family; Visit Provider Nurse Practitioner Family | DX: J43.9 Emphysema, unspecified (principal) | CPT/HCPCS: 94060; 94726 ==

== ENCOUNTER → 2024-02-26 | Outpatient (CLI) | payer MEDICAID, SELFPAY ==
--- NOTE | 2024-03-03 08:59 | STRESSREP_ITS ---
Stress Test Report Date: 02/26/2024 Procedure: Pharmacologic stress nuclear imaging study Indications: CAD Consent: Per the patient Procedure: The patient underwent pharmacologic (Regadenoson 0.4mg ) evaluation with a peak heart rate of 107 beats per minute (62%predicted maximal heart rate) and a peak blood pressure of 122/70 mmHg. The baseline ECG demonstrated sinus rhythm. The peak pharmacologic ECG demonstrated no ischemic changes. There were no cardiac dysrhythmias pretest, during pharmacologic infusion, or recovery. There was no complaint of chest discomfort during pharmacologic infusion or recovery. The patient was injected with 10.6 millicuries of technetium 99m Cardiolite and subsequently rest SPECT Cardiolite nuclear imaging was obtained in the horizontal long, vertical long, and short axis views. The patient underwent pharmacologic (Regadenoson) evaluation. The patient was injected with 36.0 millicuries of technetium 99m Cardiolite and subsequently stress SPECT Cardiolite nuclear imaging was obtained in the horizontal long, vertical long, and short axis views. A gated Cardiolite study at peak stress was obtained. The examination was stopped secondary to completion of protocol. Rest and stress SPECT Cardiolite nuclear imaging status post realignment, normalization, and attenuation correction demonstrate no fixed or reversible perfusion defects. There is end systolic thickening and brightening. The gated Cardiolite study demonstrates myocardial thickening and inward wall motion. The reported LVEF is 59%. Impression: 1. Pharmacologic (Regadenoson) evaluation 2. Peak pharmacologic ECG with no diagnostic ischemic changes. 3. There were no cardiac dysrhythmias pretest, during pharmacologic infusion, or recovery. 5. Rest and stress SPECT Cardiolite nuclear imaging demonstrate relative uniform tracer uptake and myocardial perfusion appearing within normal limits. 6. The gated Cardiolite study reports an LVEF of 59%. This note was generated with Detectentation software. It may contain incorrect words, spelling, and punctuation that were not noted in checking the note before signing.
== END | disposition home or self-care (01) ==
LOC: CVS 07:05
PROVIDERS: PCP Nurse Practitioner Family; Referring Provider Nurse Practitioner Family; Visit Provider Nurse Practitioner Family
DX: R06.09 Other forms of dyspnea (principal); Z95.5 Presence of coronary angioplasty implant and graft; R07.89 Other chest pain; I10 Essential (primary) hypertension; E78.2 Mixed hyperlipidemia
CPT/HCPCS: 78452; 93017; A9500; A4216; J2785

== ENCOUNTER → 2024-05-14 | Outpatient (CLI) | payer MEDICAID, SELFPAY ==
--- NOTE | 2024-05-14 11:59 | CT_ITS ---
PROCEDURE: CHEST WITHOUT CONTRAST 05/14/2024 REASON FOR EXAM: CHRONIC COUGH TECHNIQUE: Chest CT without contrast. Coronal and Sagittal reconstruction series were provided. One or more dose reduction techniques were used (e.g., Automated exposure control, adjustment of the mA and/or kV according to patient size, use of iterative reconstruction technique RADIATION DOSE SUMMARY: CTDlvol: 18.15 mGy DLP: 594.10 mGycm COMPARISON: 12/01/2023 FINDINGS: The central airways appear patent. Moderate centrilobular and paraseptal upper zone predominant pulmonary emphysema again noted. Bandlike area of scar at the lingula again seen. Bilateral dependent areas of atelectasis. No focal consolidation, pulmonary nodule or mass identified. No axillary, mediastinal, subcarinal or hilar adenopathy identified. The thoracic aorta appears within limits on noncontrast imaging. Mild atherosclerotic calcification of the arch. Three-vessel coronary calcification and/or stents appears greatest right coronary. No pericardial or pleural effusion. Limited images upper abdomen appear within limits. Cystic change at the lateral right humeral head possible related to calcific tendinosis again noted. Small sclerotic focus right humeral head also again noted, nonspecific, and unchanged, possible bone island. CT/Chest without Contrast IMPRESSION: The central airways appear patent. Moderate centrilobular and paraseptal upper zone predominant pulmonary emphysema again noted. Bandlike area of scar at the lingula again seen. Bilateral dependent areas of atelectasis. No focal consolidation, pulmonary nodule or mass identified. Presence of emphysematous change and a smoker may consider annual low-dose ches t CT screening. Three-vessel coronary calcification and/or stents appears greatest right ndiaye ry. Reading Location: [id number]
[2024-05-16 16:09] LABS: Angiotensin Convert Enzyme 73 U/L (14-82)
== END | disposition home or self-care (01) ==
LOC: CT 11:51
PROVIDERS: PCP Nurse Practitioner Family; Referring Provider Nurse Practitioner Family; Visit Provider Nurse Practitioner Family
DX: J43.9 Emphysema, unspecified (principal)
CPT/HCPCS: 36415; 71250; 82164

== ENCOUNTER 2024-09-04 05:30 | Day surgery (SDC) | payer OTHER, SELFPAY ==
--- NOTE | 2024-09-02 17:04 | PAT.ANE_ITS ---
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 When Was Last Pacemaker Check QUESTION #4 FULL TEXT: You/Your Family Experience fever (hyperthermia) with Anesthesia Last Oral Intake Last Oral intake: Last Oral Intake NPO since Meds taken in AM with sips of water? Meds patient instructed to take am of surgery PONV PONV - certified medical coding specialist: PONV - certified medical coding specialist Female No 09/02/24 09:31 HX of Motion Sickness No 09/02/24 09:31 HX of N/V After Surgery No 09/02/24 09:31 Non-Smoker No 09/02/24 09:31 Duration of Surgery greater No 09/02/24 09:31 than 60 minutes Number of Risk Factors PONV Score Height & Weight Height & Weight: Anesthesia: Height & Weight Height 6 ft 04/11/24 06:09 Respiratory Assessment Respiratory Assessment - certified medical coding specialist: Respiratory Tract Infection Hx - certified medical coding specialist Hx Respiratory Tract Infection No 09/02/24 09:31 STOP Sleep Apnea STOP Sleep Apnea - certified medical coding specialist: STOP Sleep Apnea - certified medical coding specialist Hx Hypertension Yes 09/02/24 09:31 Hx Sleep Apnea No 09/02/24 09:31 CPAP BIPAP Do you snore loudly (louder No 09/02/24 09:31 than talking or can be heard Do you often feel tired/ No 09/02/24 09:31 fatigued/ sleepy during daytime? Has anyone observed you stop No 09/02/24 09:31 breathing during sleep? STOP Results Negative 09/02/24 09:31 QUESTION #5 FULL TEXT : Do you snore loudly (louder than talking or can be heard through closed doors)? 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 Specify any problems Hx of Preganancy in last 3 N/A 09/02/24 09:31 Months Nurse Filling Out Transfusion VLEHMAN 09/02/24 09:31 & Questions: Date: 09/02/24 09/02/24 09:31 Time: 09:38 09/02/24 09:31 Patient unable to answer at this time (ie. confused, unrespo /Reproduction History /Reproductive History - certified medical coding specialist: /Reproductive Hx- certified medical coding specialist Hx Now No 09/02/24 09:31 Gestational Age (in weeks): EDC: Hx Hx Para Hx Section SAB No 09/02/24 09:31 [facility] Medical History (Updated 09/02/24 @ 09:38 by Soraya Freed) Wears dentures Wears glasses Arthritis High cholesterol Injury of head and neck Injury of back History of IBS Gastric reflux Smoker CPAP (continuous positive airway pressure) dependence Sleep apnea On home oxygen therapy Emphysema, unspecified Shortness of breath on exertion Cardiology follow-up encounter History of stress test History of irregular heartbeat RLQ abdominal pain GI bleed Mild sleep apnea Chronic cough Nicotine dependence Family history of ischemic heart disease and other diseases of the circulatory system Presence of stent in coronary artery (~02/01/22) Old myocardial infarction Primary snoring Nicotine addiction Hemoptysis Nicotine dependence, cigarettes, uncomplicated Abdominal distension (gaseous) Unspecified systolic (congestive) heart failure Hyperlipidemia Atherosclerosis of coronary artery of [place] heart without angina pectoris Chest pain Noncompliance with medications Essential hypertension Stroke Pneumonia GERD (gastroesophageal reflux disease) COPD (chronic obstructive pulmonary disease) Depression Anxiety Asthma Emphysema, unspecified CAD (coronary artery disease) Encounter for 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) Home Medications ?Medication ?Instructions ?Recorded ?Last Taken ?Type albuterol sulfate 2.5 mg/3 mL 2.5 mg inhalation Q4H VT N 05/22/22 Unknown History (0.083 %) solution for nebulization shortness of breat h or wheezing albuterol sulfate 90 mcg/actuation 2 puff inhalation Q 4H PRN 05/22/22 Unknown History aerosol inhaler shortness of breath or wheez ing aspirin 81 mg tablet,delayed 81 mg PO DAILY 05/22/22 U nknown History release magnesium oxide 250 mg PO DAILY 05/22/22 Unk nown History omeprazole 40 mg capsule,delayed 40 mg PO DAILY Unknown History release rosuvastatin 10 mg tablet 10 mg PO DAILY 05/22/22 Unkn own History carvedilol phosphate 20 mg 20 mg PO DAILY 06/15/22 Unk nown History capsule,[id number] multiphase montelukast 10 mg tablet 10 mg PO QPM #90 tabs Unknown Rx budesonide 0.5 mg/2 mL suspension 0.5 mg inhalation Q1 2H BREATHING 01/24/23 Unknown History for nebulization potassium chloride 20 mEq 20 meq PO DAILY 01/24/23 Unk nown History tablet,extended release(part/cryst) hydrochlorothiazide 25 mg tablet 25 mg PO DAILY #30 ta bs 05/25/23 Unknown Rx nitroglycerin 0.4 mg sublingual 0.4 mg sublingual Q5-1 5M PRN chest 09/17/23 Unknown History tablet pain ranolazine 500 mg tablet,extended 500 mg PO BID #60 ta bs 09/17/23 Unknown Rx release,12 hr benralizumab 30 mg/mL subcutaneous 30 mg subcut Q8W #1 mL 09/19/23 Unknown Rx auto-injector (Fasenra Pen) bupropion HCl (smoking deter) 150 150 mg PO BID #60 ta bs 11/06/23 Unknown Rx mg tablet,12 hr sustained-release(smoking deterrent) clopidogrel 75 mg tablet 75 mg PO DAILY #90 tabs 10/2008/31/24 Rx amantadine HCl (bulk) ea miscellaneous 01/14/24 Un known History ipratropium 0.5 mg-albuterol 3 mg 1.5 ml inhalation Q6 H BREATHING 01/14/24 Unknown History (2.5 mg base)/3 mL nebulization soln trazodone 100 mg tablet 100 mg PO QHS PRN insomnia # 30 tabs 02/19/24 Unknown Rx umeclidinium 62.5 mcg-vilanterol 1 inh inhalation Q24H #60 ea 03/12/24 Unknown Rx 25 mcg/actuation powdr for inhalation (Anoro Ellipta) prazosin 1 mg capsule 1 mg PO QHS #30 caps 5 Unknown Rx fluticasone furoate 200 1 inh inhalation Q24H #30 ea 04/28/24 Unknown Rx mcg/actuation blister powder for inhalation (Arnuity Ellipta) Allergy/AdvReac Type Severity Reaction Status Date / Time isosorbide Allergy Severe Severe Verified 09/02/24 09:24 headaches amlodipine AdvReac Intermediate Severe Verified 09/02/24 09:24 headache Family History Mother Cancer Ovarian Grandmother Cancer breast cancer. Heart disease Myocardial infarction Grandfather Cancer Lung Fibromyalgia Father Cancer Surgical History (Updated 09/02/24 @ 09:38 by Soraya Freed) History of cardiac catheterization History of left heart catheterization (LHC) (~09/25/22) Presence of coronary angioplasty implant and graft (~02/01/22) H/O inguinal hernia repair H/O arthroscopic knee surgery H/O hand surgery Social History Smoking Status: Current some day smoker tobacco type: cigarettes alcohol intake: never substance use type: does not use caffeine: Yes Type: coffee Number of servings: 3 Audit: Pertinent Findings Pertinent Findings EKG Perinent findings: January 24, 2023. Normal sinus rhythm. Stress test pertinent findings: 03/03/2024. EF of 59%. Rest and stress SPECT nuclear imaging demonstrate uniform tracer uptake and myocardial perfusion. Echo (EF%) pertinent findings: 07/18/2022. EF of 55%. No aortic stenosis noted. Heart catheterization pertinent findings: 09/25/2022. Previously stented ramus intermedius and right coronary artery?patent stents. No high-grade stenosis noted. EF of 60%. Consult pertinent findings: 03/28/2024. [facility] [employer]. 1. Dyspnea on exertion?chronic-feels this is baseline. Patient will follow-up with pulmonology for ongoing evaluation. Patient has goal to quit smoking. 2. Chest pain?chronic-most recent cardiac cath 10/11 Showed patent stents. And preserved ejection fraction. Last stress in 2024 was negative for ischemia. With ongoing chest pain it was discussed to repeat heart catheterization-he declines today. Consider if symptoms progress or worsen. 3. Stents x 2 in coronary arteries. Chronic. Continue aspirin, Plavix, carvedilol, Crestor. 4. Hypertension?chronic?well-controlled. Recommendation Anesthesia Recommendation Anesthesia recommendation: OPTIMIZED for anesthesia
[2024-09-04] VITALS (8 sets, daily range): BP systolic 94–108; BP diastolic 63–80; PULSE 71–77; RESP 16–18; TEMP 36.2–36.9; O2SAT 93–97; BMI 30.2
--- OUTSIDE RECORDS SUMMARY | 2024-09-04 05:37 | XMS RPT_ITS | CCD ---
Author Organization [facility] Care Team Providers Care Caterer Helper Name Role Phone Sherita, Dylan Unavailable Unavailable Sherita, Dylan Unavailable Unavailable Prashant Flores Unavailable Unavailable Sherita, Dylan Unavailable Unavailable Sherita, Dylan Unavailable Unavailable Bowen, Nile Unavailable Unavailable NELLY, MERLY Unavailable Unavailable Sherita, Dylan Unavailable Unavailable Sherita, Dylan Unavailable Unavailable NO REFERRING DR Unavailable Unavailable [facility] Unavailable Unavailable UNKNOWN, PROVIDER Unavailable Unavailable Danilo Alvarado DO Primary Care Provider [phone] [address] DANILO ALVARADO MD Primary Care Physician Monroe Love Attending Unavailable Dr. Jonh Boyd Attending Provider Justine Vaz Attending Provider Unavailable Dr. Jonh Boyd Referring Provider Dr. Jonh Boyd Other Provider Dr. Mark Alvarado Primary Care Provider Dr. Bahman Alvarado Attending Provider Dr. Mark Alvarado Referring Provider Dr. Bria Olsen Attending Provider Dr. Bria Olsen Other Provider DANILO ALVARADO Primary Care Provider DANILO ALVARADO Primary Care Provider DANILO ALVARADO Primary Care Provider Unavailpradip GARAY MD, [place] Attending UnavailDR DANILO Cox MD Primary Care Unavailable JEANNIE GARNETT DO Attending Unavailable DR DANILO ALVARADO MD Primary Care Unavailable ELDA HUNTER MD Attending Unavailable DR DANILO ALVARADO MD Primary Care Unavailable Shila CORPORATE TRAVEL MANAGER, CORPORATE TRAVEL MANAGER-C Frances Attending Provider [phone] Dr. Bria Olsen Attending Provider Dr. Estevan Dixon Attending Provider Dr. Bria Olsen Referring Provider Dr. Tim Alvarado Primary Care Provider Dr. Tim Alvarado Referring Provider [place] Doctor, Out of Primary Care Provider [facility] Doctor, Out of Referring Provider Unavailab le Roof CORPORATE TRAVEL MANAGER, CORPORATE TRAVEL MANAGER-C Elda Leal Attending Provider Shila CORPORATE TRAVEL MANAGER, CORPORATE TRAVEL MANAGER-C Frances Attending Provider Dr. Tim Alvarado Primary Care Provider Dr. Tim Alvarado Referring Provider [facility] Doctor, Out of Primary Care Provider [facility] Doctor, Out of Referring Provider Unavailab le Roof CORPORATE TRAVEL MANAGER, CORPORATE TRAVEL MANAGER-C Elda Leal Attending Provider DANILO ALVARADO Primary Care Provider Unavailabl e Dr. Bahman Alvarado Attending Provider Dr. Bahman Alvarado Referring Provider Dr. Bahman Alvarado Other Provider DANILO ALVARADO Primary Care Provider [facility] Doctor, Out of Referring Provider Unavailab le Roof CORPORATE TRAVEL MANAGER, CORPORATE TRAVEL MANAGER-C Elda Leal Attending Provider Dylan Magallon Primary Care Provider MUMTAZ HOLLEY DO Admitting Unavailable MUMTAZ HOLLEY DO Attending Unavailable MUMTAZ HOLLEY DO Primary Care Unavailable ELPIDIO OJEDA-JEWELRY FACER, JEANNIE Primary Care Physician DYLAN MAGALLON Primary Care Unavailable NONE, PCP Referring Unavailable ACACIA, KAMAL Admitting Unavailable ACACIA, KAMAL Attending Unavailable ELPIDIO INSTRUMENT SHOP SUPERVISOR-JEWELRY FACER, JEANNIE Primary Care Nevaeh WARREN INSTRUMENT SHOP SUPERVISOR-JEWELRY FACER, LAURA Attending Unavai lable ELPIDIO INSTRUMENT SHOP SUPERVISOR-JEWELRY FACER, JEANNIE Primary Care Unavai lable ELPIDIO INSTRUMENT SHOP SUPERVISOR-JEWELRY FACER, JEANNIE Attending Unavai lable ELPIDIO INSTRUMENT SHOP SUPERVISOR-JEWELRY FACER, JEANNIE Attending Unavai lable ELPIDIO INSTRUMENT SHOP SUPERVISOR-JEWELRY FACER, JEANNIE Primary Care Unavai lable ELPIDIO INSTRUMENT SHOP SUPERVISOR-JEWELRY FACER, JEANNIE Attending Unavai lable ELPIDIO INSTRUMENT SHOP SUPERVISOR-JEWELRY FACER, JEANNIE Primary Care Unavai lable ELPIDIO INSTRUMENT SHOP SUPERVISOR-JEWELRY FACER, JEANNIE Primary Care Unavai lable OSCAR INSTRUMENT SHOP SUPERVISOR - JEWELRY FACER, MICHELLE Almanza Attending U navailable ELPIDIO, JEANNIE Primary Care Unavailable ELPIDIO, JEANNIE Referring Unavailable Raina Orozco Attending Unavailable ELPIDIO, JEANNIE Primary Care Unavailable Alba Bernal Attending Unavailable Roof CORPORATE TRAVEL MANAGER, Elda Leal Consulting Unavailable ELPIDIO, JEANNIE Primary Care Unavailable Roof CORPORATE TRAVEL MANAGER, Elda Leal Referring Unavailable RaúlBria portillo Attending Unavailable ELPIDIO, JEANNIE Primary Care Unavailable Alba Bernal Attending Unavailable ELPIDIO, JEANNIE Primary Care Unavailable Roof CORPORATE TRAVEL MANAGER, Elda Leal Attending Unavailable ELPIDIO, JEANNIE Primary Care Unavailable Ra Romerohsaan Attending Unavailable ELPIDIO, JEANNIE Primary Care Unavailable Roof CORPORATE TRAVEL MANAGER, Edla Leal Referring Unavailable Roof CORPORATE TRAVEL MANAGER, Elda Leal Attending Unavailable ELPIDIO, JEANNIE Primary Care Unavailable ELPIDIO, JEANNIE Referring Unavailable Fuchs CORPORATE TRAVEL MANAGER, Frances Attending Unavailable ELPIDIO, JEANNIE Primary Care Unavailable Roof CORPORATE TRAVEL MANAGER, Elda Leal Referring Unavailable Bria Olsen Attending Unavailable Alba Bernal Attending Unavailable ELPIDIO, JEANNIE Primary Care Unavailable ELPIDIO, JEANNIE Referring Unavailable Roof CORPORATE TRAVEL MANAGER, Elda Leal Attending Unavailable ELPIDIO, JEANNIE Primary Care Unavailable ELPIDIO, JEANNIE Referring Unavailable Fuchs CORPORATE TRAVEL MANAGER, Frances Attending Unavailable ELPIDIO, JEANNIE Primary Care Unavailable ELPIDIO, JEANNIE Referring Unavailable Roof CORPORATE TRAVEL MANAGER, Elda Leal Attending Unavailable ELPIDIO, JEANNIE Primary Care Unavailable Alba Bernal Attending Unavailable ELPIDIO, JEANNIE Primary Care Unavailable ELPIDIO, JEANNIE Referring Unavailable Delores Pablo Attending Unavailable ELPIDIO, JEANNIE Primary Care Unavailable Delores Pablo Referring Unavailable Delores Pablo Attending Unavailable ELPIDIO, JEANNIE Primary Care Unavailable Elizabeth Azar Referring Unavailable Elizabeth Azar Attending Unavailable ELPIDIO, JEANNIE Primary Care Unavailable Fuchs CORPORATE TRAVEL MANAGER, Frances Referring Unavailable Shila CORPORATE TRAVEL MANAGER, Frances Attending Unavailable ELPIDIO, JEANNIE Primary Care Unavailable Delores Pablo Referring Unavailable Delores Palbo Attending Unavailable ELPIDIO, JEANNIE Primary Care Unavailable ELPIDIO, JEANNIE Referring Unavailable RuDelores haddad Attending Unavailable ELPIDIO, JEANNIE Primary Care Unavailable DEBI, ERI1 Referring Unavailable DEBI, ERI1 Attending Unavailable ELPIDIO, JEANNIE Primary Care Unavailable Delores Pablo Referring Unavailable Delores Pablo Attending Unavailable ELPIDIO, JEANNIE Primary Care Unavailable Alba Bernal Attending Unavailable ELPIDIO, JEANNIE Primary Care Unavailable ELPIDIO, JEANNIE Referring Unavailable Shila CORPORATE TRAVEL MANAGER, Frances Attending Unavailable ELPIDIO, JEANNIE Primary Care Unavailable Alba Bernal Attending Unavailable ELPIDIO, JEANNIE Primary Care Unavailable ELPIDIO, JEANNIE Referring Unavailable Delores Pablo Attending Unavailable Allergies Allergy Classification Reported Allergen(s) Allergy Type Date of Onset Reaction(s) Facility (11 sources) amLODIPine Drug Allergy 3 Severe headache [facility] (2 sources) atorvastatin Drug Allergy 7 Other [facility] (2 sources) Isosorbide Drug Allergy 7 Other [facility] (1 source) amLODIPine Drug Allergy 5 [facility] (1 source) Isosorbide Drug Allergy 5 [facility] Medications Current Medications Medication Drug Class(es) Dates Sig (Normalized) Sig (Original) Albuterol (Eqv-ProAir HFA) 90 mcg/inh inhalation aerosol (5 sources) Start: 06-13-2024 take 1 dose by inhalation every four hours as needed for wheezing Albuterol (Eqv-ProAir HFA) 90 mcg/inh inhalation aerosol Dose = 2 puff(s), Inhalation, q4h, PRN as needed for wheezing, # 54 gram(s), 3 Refill(s), Pharmacy: [facility], 181.5, cm, 03/19/24 8:27:00 EST, Height, kg, 03/19/24 8:27:00 EST, Dosing Weight Start Date: 06/13/24 Status: Ordered Quantity: 54.0 Unit: g Repeat number: 4 Start: 09-12-2023 take 1 dose by inhal ation every six hours as needed for wheezing Albuterol (Eqv-ProAir HFA) 90 mcg/inh inhalation aerosol Dose = 2 puff(s), Inhalation, q6hr, PRN as needed for wheezing, # 18 gram(s), 1 Refill(s), Pharmacy: [facility], 183, cm, 09/12/23 7:34:00 EDT, Height, kg, 09/12/23 7:34:00 EDT, Dosing Weight Start Date: 09/12/23 Status: Ordered albuterol 0.833 mg/ml / ipratropium bromide 0.167 mg/ml inhalation solution (5 sources) Anticholinergic, beta2-Adrenergic Agonist Start: 03-19-2024 End: 09-15-2024 albuterol-ipratropium 2.5 mg-0.5 mg/3 mL inhalation solution Dose = 3 mL, Nebulized, QID, PRN as needed for shortness of breath or wheezing, # 540 mL, 1 Refill(s), Pharmacy: [facility], 181.5, cm, 03/19/24 8:27:00 EST, Height, kg, 03/19/24 8:27:00 EST, Dosing Weight Start Date: 03/19/24 Stop Date: 09/15/24 Status: Ordered Quantity: 540.0 Unit: mL Repeat number: 2 Start: 09-12-2023 End: 03-10-2024 albuterol-ipratropium 2.5 mg -0.5 mg/3 mL inhalation solution Dose = 3 mL, Nebulized, QID, PRN as needed for shortness of breath or wheezing, # 90 mL, 1 Refill(s), Pharmacy: [facility], 183, cm, 09/12/23 7:34:00 EDT, Height, kg, 09/12/23 7:34:00 EDT, Dosing Weight Start Date: 09/12/23 Stop Date: 03/10/24 Status: Ordered Anoro Ellipta 62.5 mcg-25 mcg/inh inhalation powder (4 sources) Start: 03-19-2024 take 1 dose by inhalation once daily Anoro Ellipta 62.5 mcg-25 mcg/inh inhalation powder Dose = 1 puff(s), Inhalation, qDay, 0 Refill(s) Start Date: 03/19/24 Status: Ordered Repeat number: 1 Arnuity Ellipta 200 mcg inhalation powder (4 sources) Start: 03-19-2024 take 1 puff(s) by mouth every twenty-four hours Arnuity Ellipta 200 mcg inhalation powder INHALE 1 PUFF BY MOUTH EVERY 24 HOURS Start Date: 03/19/24 Status: Ordered Repeat number: 1 aspirin 81 mg delayed release oral tablet (20 sources) Platelet Aggregation Inhibitor, Nonsteroidal Anti-inflammatory Drug Start: 11-29-2023 End: 12-01-2023 aspirin 81 mg oral delayed release tablet Dose : 81 mg = 1 tab(s), Oral, Daily, # 90 tab(s), 3 Refill(s), Pharmacy: [facility], 183, cm, 09/12/23 7:34:00 EDT, Height, kg, 09/12/23 7:34:00 EDT, Dosing Weight Start Date: 11/29/23 Status: Ordered Quantity: 90.0 Unit: tab(s) Repeat number: 4 Start: 10-04-2020 take 81 mg by mouth once daily Aspirin Active 81 MG PO DAILY May 22, 2022 12:00am take 81 mg by mouth once daily A DULT LOW DOSE ASPIRIN ORAL Take 81 mg by mouth once daily. 0 Active Comment on above: Take 81 mg by mouth once daily. atorvastatin 40 mg oral tablet (6 sources) HMG-CoA Reductase Inhibitor Start: 10-28-2021 atorvastatin 40 mg oral tablet Dose : 40 mg = 1 tab(s), Oral, qDay, # 90 tab(s), 0 Refill(s) Start Date: 10/28/21 Status: Ordered take 1 tablet by rosie th once daily at bedtime atorvastatin (LIPITOR) 40 mg tablet Take 40 mg by mouth daily at bedtime. 0 Active Comment on above: Take 40 mg by mouth daily at bedtime. 1 ml benralizumab 30 mg/ml auto-injector (6 sources) Interleukin-5 Receptor alpha-directed Cytolytic Antibody Start: 03-19-2024 Fasenra Pen 30 mg/mL subcutaneous solution 0 Refill(s) Start Date: 03/19/24 Status: Ordered Repeat number: 1 benralizumab (Fa senra) 30 MG/ML injection Inject 30 mg under the skin every 8 (eight) weeks. Active Breztri Aerosphere 160 mcg-9 mcg-4.8 mcg/inh inhalation aerosol (1 source) Start: 12-03-2023 take 1 dose by mouth twice daily Breztri Aerosphere 160 mcg-9 mcg-4.8 mcg/inh inhalation aerosol Dose = 2 puff(s), Inhalation, BID, rinse mouth and throat after use, # 10.7 gram(s), 5 Refill(s), Pharmacy: [facility], History of COPD, 183, cm, 09/12/23 7:34:00 EDT, Height, kg, 09/12/23 7:34:00 EDT, Dosing Weight Start Date: 12/03/23 Status: Ordered Breztri Aerosphere inhalation aerosol (2 sources) Start: 10-28-2021 take 1 dose by mouth twice daily Breztri Aerosphere inhalation aerosol Dose = 2 puff(s), Inhalation, BID, rinse mouth and throat after use, # 5.9 gram(s), 0 Refill(s) Start Date: 10/28/21 Status: Ordered budesonide 0.25 mg/ml inhalation suspension (15 sources) Corticosteroid Start: 01-24-2023 Budesonide Act maia 0.5 MG INHALATION January 24, 2023 1:00am Start: 05-22-2022 End: 01-08-2023 take 0.5 mg by inhalation twice daily Budesonide Discontinued 0.5 MG INHALATION TWICE A DAY May 22, 2022 12:00am January 08, 2023 9:31am Budesonide-Formoterol (4 sources) Corticosteroid, beta2-Adrenergic Agonist Start: 01-22-2023 take 1 puff(s) by mouth twice daily Budesonide-Formoterol (Symbicort) 160-4.5 mcg/actuation HFA aerosol inhaler Active 2 PUFF INHALATION TWICE A DAY January 22, 2023 1:00am administer with spacer, rinse mouth after each use Start: 01-22-2023 take 1 puff(s) by mo ut twice daily Budesonide-Formoterol (Symbicort) 160-4.5 mcg/actuation HFA aerosol inhaler Active 2 PUFF INHALATION TWICE A DAY January 22, 2023 12:00am administer with spacer, rinse mouth after each use BUDESONIDE-FORMOTEROL FUMARATE IN (2 sources) Start: 01-22-2023 take 2 puff(s) by mouth in the morning BUDESONIDE-FORMOTEROL FUMARATE IN Take 2 puffs by mouth in the morning and 2 puffs in the evening. 01/22/2023 Active BuPROPion (Eqv-Wellbutrin SR) 150 mg/12 hours oral tablet, extended release (5 sources) Start: 03-19-2024 End: 09-15-2024 BuPROPion (Eqv-Wellbutrin SR) 150 mg/12 hours oral tablet, extended release Dose : 150 mg = 1 tab(s), Oral, BID, # 180 tab(s), 1 Refill(s), Pharmacy: [facility], 181.5, cm, 03/19/24 8:27:00 EST, Height, kg, 03/19/24 8:27:00 EST, Dosing Weight Start Date: 03/19/24 Stop Date: 09/15/24 Status: Ordered Quantity: 180.0 Unit: tab(s) Repeat number: 2 Start: 12-03-2023 End: 01-02-2024 BuPROPion (Eqv-Wellbutrin SR ) 150 mg/12 hours oral tablet, extended release Dose : 150 mg = 1 tab(s), Oral, BID, # 60 tab(s), 0 Refill(s), Pharmacy: [facility], 183, cm, 09/12/23 7:34:00 EDT, Height, kg, 09/12/23 7:34:00 EDT, Dosing Weight Start Date: 12/03/23 Stop Date: 01/02/24 Status: Ordered 24 hr carvedilol phosphate 20 mg extended release oral capsule (20 sources) alpha-Adrenergic Hola, beta-Adrenergic Hola Start: 03-19-2024 End: 09-15-2024 carvedilol 20 mg oral capsule, extended release Dose : 20 mg = 1 cap(s), Oral, qAM, # 90 cap(s), 1 Refill(s), Pharmacy: [facility], 181.5, cm, 03/19/24 8:27:00 EST, Height, kg, 03/19/24 8:27:00 EST, Dosing Weight Start Date: 03/19/24 Stop Date: 09/15/24 Status: Ordered Quantity: 90.0 Unit: cap(s) Repeat number: 2 Start: 12-03-2023 carvedilol 20 mg oral capsule, extended release Dose : 20 mg = 1 cap(s), Oral, qAM, # 30 cap(s), 0 Refill(s), Pharmacy: [facility], 183, cm, 09/12/23 7:34:00 EDT, Height, kg, 09/12/23 7:34:00 EDT, Dosing Weight Start Date: 12/03/23 Status: Ordered Start: 12-01-2023 End: 12-01-2023 Start: 06-15-2022 take 20 mg by mouth once daily at mealtime Carvedilol Phosphate Active 20 MG PO DAILY June 15, 2022 12:00am must administer with a meal/food Start: 05-22-2022 End: 06-15-2022 take 3.125 mg by mouth once at mealtime Carvedilol Discontinued 3.125 MG PO ONCE May 22, 2022 12:00am June 15, 2022 10:11am must administer with a meal/food Start: 10-28-2021 carvedilol 3.1 25 mg oral tablet Dose : 3.125 mg = 1 tab(s), Oral, BIDM, 0 Refill(s) Start Date: 10/28/21 Status: Ordered Start: 01-02-2017 carvedilol (CO REG) 3.125 mg tablet Take 6.25 mg by mouth. 0 01/02/2017 Active Comment on above: Take 6.25 mg by mout h. clopidogrel 75 mg oral tablet (20 sources) [id number] Platelet Inhibitor Start: 12-03-2023 Plavix 75 mg oral tablet Dose : 75 mg = 1 tab(s), Oral, qDay, # 30 tab(s), 11 Refill(s), Pharmacy: [facility], 183, cm, 09/12/23 7:34:00 EDT, Height, kg, 09/12/23 7:34:00 EDT, Dosing Weight Start Date: 12/03/23 Status: Ordered Quantity: 30.0 Unit: tab(s) Repeat number: 12 Start: 02-01-2022 End: 12-01-2023 cyclobenzaprine hydrochloride 5 mg oral tablet (3 sources) Muscle Relaxant Start: 12-01-2023 End: 12-11-2023 take 1 tablet by mouth three times daily as needed for muscle spasms cyclobenzaprine (Flexeril) 5 MG tablet Take 1 tablet (5 mg) by mouth 3 times daily as needed for muscle spasms for up to 10 days. 30 tablet 12/01/2023 12/11/2023 Active Start: 10-17-2022 End: 10-22-2022 cyclobenzaprine 10 mg oral t ablet Dose : 10 mg = 1 tab(s), Oral, TID, X 5 day(s), # 15 tab(s), 0 Refill(s), 10/22/22 8:16:00 PM EDT Start Date: 10/17/22 Stop Date: 10/22/22 Status: Ordered dexamethasone 6 mg oral tablet (1 source) Corticosteroid Start: 07-28-2024 End: 08-04-2024 dexAMETHasone 6 mg oral tablet Dose : 6 mg = 1 tab(s), Oral, qDay, X 7 day(s), # 7 tab(s), 0 Refill(s), 08/04/24 11:57:00 AM EDT, Pharmacy: [facility], COPD with exacerbation Wheezing on auscultation, 182, cm, 07/28/24 11:30:00 EDT, Height, kg, 07/28/24 11:30:00 EDT, Dosing Weight Start Date: 07/28/24 Stop Date: 08/04/24 Status: Ordered Quantity: 7.0 Unit: tab(s) Repeat number: 1 Indications: Wheezing; Chronic obstructive pulmonary disease with (acute) exacerbation; doxycycline hyclate 100 mg oral capsule (2 sources) Tetracycline-class Drug Start: 07-28-2024 End: 08-11-2024 doxycycline hyclate 100 mg oral capsule Dose : 100 mg = 1 cap(s), Oral, BID, X 14 day(s), # 28 cap(s), 0 Refill(s), 08/11/24 11:56:00 AM EDT, Pharmacy: [facility], Acute bronchitis, bacterial Pertussis pneumonia, 182, cm, 07/28/24 11:30:00 EDT, Height, 100.5, kg, 07/28/24 11:30:00 EDT, Dosing Weight Start Date: 07/28/24 Stop Date: 08/11/24 Status: Ordered Quantity: 28.0 Unit: cap(s) Repeat number: 1 Indications: Acute bronchitis due to other specified organisms; Whooping cough, unspecified species with pneumonia; Start: 12-19-2023 End: 12-29-2023 doxycycline monohydrate 100 mg oral capsule Dose : 100 mg = 1 cap(s), Oral, BID, X 10 day(s), # 20 cap(s), 0 Refill(s), 12/29/23 4:46:00 PM EST, Pharmacy: [facility], Bronchitis, 181.51, cm, 12/19/23 15:46:00 EDT, Height, 102.2, kg, 12/19/23 15:46:00 EDT, Dosing Weight Start Date: 12/19/23 Stop Date: 12/29/23 Status: Ordered 12 hr guaiFENesin 1200 mg extended release oral tablet (2 sources) Start: 07-28-2024 End: 08-07-2024 guaiFENesin 1200 mg oral tab let, extended release Dose : 1,200 mg = 1 tab(s), Oral, q12h, X 10 day(s), # 20 tab(s), 0 Refill(s), 08/07/24 11:57:00 AM EDT, Pharmacy: [facility], Cough productive of purulent sputum, 182, cm, 07/28/24 11:30:00 EDT, Height, kg, 07/28/24 11:30:00 EDT, Dosing Weight Start Date: 07/28/24 Stop Date: 08/07/24 Status: Ordered Quantity: 20.0 Unit: tab(s) Repeat number: 1 Indications: Other specified cough; Start: 12-19-2023 End: 12-29-2023 Mucinex 600 mg oral tablet, extended release Dose : 600 mg = 1 tab(s), Oral, q12h, X 10 day(s), # 20 tab(s), 0 Refill(s), 12/29/23 4:47:00 PM EST, Pharmacy: [facility], Bronchitis, 181.51, cm, 12/19/23 15:46:00 EDT, Height, kg, 12/19/23 15:46:00 EDT, Dosing Weight Start Date: 12/19/23 Stop Date: 12/29/23 Status: Ordered hydroCHLOROthiazide 25 mg oral tablet (19 sources) Thiazide Diuretic Start: 03-19-2024 End: 09-15-2024 hydroCHLOROthiazide 25 mg oral tablet Dose : 25 mg = 1 tab(s), Oral, qDay, # 90 tab(s), 1 Refill(s), Pharmacy: [facility], 181.5, cm, 03/19/24 8:27:00 EST, Height, kg, 03/19/24 8:27:00 EST, Dosing Weight Start Date: 03/19/24 Stop Date: 09/15/24 Status: Ordered Quantity: 90.0 Unit: tab(s) Repeat number: 2 Start: 12-03-2023 hydroCHLOROthi azide 25 mg oral tablet Dose : 25 mg = 1 tab(s), Oral, qDay, # 30 tab(s), 0 Refill(s), Pharmacy: [facility], 183, cm, 09/12/23 7:34:00 EDT, Height, kg, 09/12/23 7:34:00 EDT, Dosing Weight Start Date: 12/03/23 Status: Ordered Start: 12-01-2023 End: 12-01-2023 Start: 06-20-2022 End: 05-25-2023 take 25 mg by mouth once daily Hydrochlorothiazide Active 25 MG PO DAILY May 25, 2023 9:35am 24 hr isosorbide mononitrate 30 mg extended release oral tablet (9 sources) Nitrate Vasodilator Start: 02-18-2024 isosorbide mononitrate 30 mg oral tablet, extended release Dose : 30 mg = 1 tab(s), Oral, qAM, # 90 tab(s), 1 Refill(s), Pharmacy: [facility], 181.51, cm, 12/19/23 15:46:00 EDT, Height, kg, 12/19/23 15:46:00 EDT, Dosing Weight Start Date: 02/18/24 Status: Ordered Quantity: 90.0 Unit: tab(s) Repeat number: 2 Start: 12-03-2023 isosorbide mon onitrate 30 mg oral tablet, extended release Dose : 30 mg = 1 tab(s), Oral, qAM, # 30 tab(s), 0 Refill(s), Pharmacy: [facility], 183, cm, 09/12/23 7:34:00 EDT, Height, kg, 09/12/23 7:34:00 EDT, Dosing Weight Start Date: 12/03/23 Status: Ordered Start: 01-23-2023 take 30 mg by mouth once daily Isosorbide Mononitrate Active 30 MG PO DAILY January 23, 2023 1:00am Magnesium (2 sources) take 1 capsule by mouth once daily Magnesium 250 MG capsule Take 250 mg by mouth daily. Active magnesium oxide 250 mg oral tablet (16 sources) Start: 03-19-2024 End: 09-15-2024 Magnesium 250 mg tablet Dose : 250 mg = 1 tab(s), Oral, qDay, X 90 day(s), # 90 tab(s), 1 Refill(s), 09/15/24 9:32:00 AM EDT, Pharmacy: [facility], 181.5, cm, 03/19/24 8:27:00 EST, Height, kg, 03/19/24 8:27:00 EST, Dosing Weight Start Date: 03/19/24 Stop Date: 09/15/24 Status: Ordered Quantity: 90.0 Unit: tab(s) Repeat number: 2 Start: 05-22-2022 Magnesium 250 mg tablet Dose : 250 mg = 1 tab(s), Oral, qDay, 0 Refill(s) Start Date: 06/20/23 Status: Ordered montelukast 10 mg oral tablet (13 sources) Leukotriene Receptor Antagonist Start: 07-25-2024 End: 01-21-2025 Singulair 10 mg oral tablet Dose : 10 mg = 1 tab(s), Oral, qDay, # 90 tab(s), 1 Refill(s), Pharmacy: [facility], 182, cm, 07/25/24 11:13:00 EDT, Height, kg, 07/25/24 11:13:00 EDT, Dosing Weight Start Date: 07/25/24 Stop Date: 01/21/25 Status: Ordered Quantity: 90.0 Unit: tab(s) Repeat number: 2 Start: 12-01-2023 End: 12-01-2023 Start: 12-01-2023 End: 12-01-2023 Start: 01-08-2023 End: 03-10-2024 Singulair 10 mg oral tablet Dose : 10 mg = 1 tab(s), Oral, qDay, # 90 tab(s), 1 Refill(s), Pharmacy: [facility], 183, cm, 09/12/23 7:34:00 EDT, Height, kg, 09/12/23 7:34:00 EDT, Dosing Weight Start Date: 09/12/23 Stop Date: 03/10/24 Status: Ordered Quantity: 90.0 Unit: tab(s) Repeat number: 2 nicotine 4 mg inhalation solution (20 sources) Cholinergic Nicotinic Agonist Start: 03-19-2024 nicotine 10 mg inhalation device 10 mg Dose = 1 EA, Inhalation, q2h, PRN as needed for smoking cessation, # 1 EA, 3 Refill(s), Pharmacy: [facility], Smokes 1 pack of cigarettes per day, 181.5, cm, 03/19/24 8:27:00 EST, Height, kg, 03/19/24 8:27:00 EST, Dosing Weight Start Date: 03/19/24 Status: Ordered Quantity: 1.0 Unit: EA Repeat number: 4 Indications: Nicotine dependence, cigarettes, uncomplicated; Start: 03-19-2024 apply 1 dose transde rmal route once daily Nicoderm CQ patch 14-7mg TAPER (Disch Rx) Dose = 1 patch(es), Transdermal, Daily, # 56 patch(es), 0 Refill(s), see Order Comments for use directions, Pharmacy: [facility], Smokes 1 pack of cigarettes per day, 181.5, cm, 03/19/24 8:27:00 EST, Height, kg, 03/19/24 8:27:00 EST, Dosing Weight Start Date: 03/19/24 Status: Ordered Quantity: 56.0 Unit: patch(es) Repeat number: 1 Indications: Nicotine dependence, cigarettes, uncomplicated; Start: 12-01-2023 End: 12-01-2023 nicotine (Nicoderm, Step 1) 21 MG/24HR patch 1 patch Start: 05-22-2022 End: 09-22-2022 take 10 mg by inhalation once Nicotine (Nicotrol) 10 m g cartridge Discontinued 1 INH INHALATION ONCE 168 May 22, 2022 12:00am September 22, 2022 9:46am apply 1 dose transde rmal route every twenty-four hours nicotine (NICODERM) 21 mg/24 hr Apply 1 Patch as directed every 24 hours. 0 Active Comment on above: Apply 1 Patch as dir ected every 24 hours. nitroglycerin 0.4 mg sublingual tablet (13 sources) Nitrate Vasodilator Start: 03-24-2024 nitroglycerin 0.4 mg sublingual tablet 0.4 mg Dose = 1 tab(s), Sublingual, q5min, PRN for chest pain, # 25 tab(s), 3 Refill(s), Pharmacy: [facility], 181.5, cm, 03/19/24 8:27:00 EST, Height, kg, 03/19/24 8:27:00 EST, Dosing Weight Start Date: 03/24/24 Status: Ordered Quantity: 25.0 Unit: tab(s) Repeat number: 4 Start: 11-29-2023 nitroglycerin 0.4 mg sublingual tablet 0.4 mg Dose = 1 tab(s), Sublingual, q5min, PRN for chest pain, # 25 tab(s), 3 Refill(s), Pharmacy: [facility], 183, cm, 09/12/23 7:34:00 EDT, Height, kg, 09/12/23 7:34:00 EDT, Dosing Weight Start Date: 11/29/23 Status: Ordered Start: 12-28-2021 nitroglycerin 0.4 mg sublingual tablet 0.4 mg Dose = 1 tab(s), Sublingual, q5min, PRN for chest pain, # 450 tab(s), 3 Refill(s), Pharmacy: [facility], 182.9, cm, 12/28/21 16:06:00 EST, Height, kg, 12/28/21 16:06:00 EST, Dosing Weight Start Date: 12/28/21 Status: Ordered nitroglycerin (N itrostat) 0.[address] 0.4 mg under the tongue every 5 minutes as needed for chest pain. Active Comment on above: Dissolve 0.4 mg unde r the tongue every 5 minutes as needed for Chest Pain. omeprazole 40 mg delayed release oral capsule (20 sources) Proton Pump Inhibitor Start: 04-21-2024 omeprazole 40 mg oral delayed release capsule Dose : 40 mg = 1 cap(s), Oral, qDay, # 30 cap(s), 3 Refill(s), Pharmacy: [facility], 181.5, cm, 03/19/24 8:27:00 EST, Height, kg, 03/19/24 8:27:00 EST, Dosing Weight Start Date: 04/21/24 Status: Ordered Quantity: 30.0 Unit: cap(s) Repeat number: 4 Start: 12-03-2023 omeprazole 40 mg oral delayed release capsule Dose : 40 mg = 1 cap(s), Oral, qDay, # 30 cap(s), 0 Refill(s), Pharmacy: [facility], 183, cm, 09/12/23 7:34:00 EDT, Height, kg, 09/12/23 7:34:00 EDT, Dosing Weight Start Date: 12/03/23 Status: Ordered Start: 06-02-2021 take 40 mg by mouth once daily Omeprazole Active 40 MG PO DAILY May 22, 2022 12:00am OMEPRAZOLE (PRIL OSEC ORAL) Take by mouth once daily. 0 Active Comment on above: Take by mouth once d aily. TAKE 1 CAPSULE BY [facility] 30 MINUTES BEFORE MORNING MEAL ONCE DAILY oxyCODONE hydrochloride 5 mg oral tablet (4 sources) Opioid Agonist Start: 12-01-2023 End: 12-06-2023 take 1 tablet by mouth every six hours as needed for pain oxyCODONE (Roxicodone) 5 MG immediate release tablet Indications: Fall, initial encounter Take 1 tablet (5 mg) by mouth every 6 hours as needed for severe pain (7-10) for up to 5 days. 15 tablet 12/01/2023 12/06/2023 Active Start: 12-01-2023 End: 12-01-2023 take 1 tablet by mouth every four hours as needed for pain oxyCODONE (Roxicodone) immediate release tablet 2.5 mg Potassium Chloride (20 sources) Start: 03-19-2024 End: 09-15-2024 Potassium Chloride (Eqv-Klor -Con M20) 20 mEq oral tablet, extended release Dose : 20 mEq = 1 tab(s), Oral, qDay, # 90 tab(s), 1 Refill(s), Pharmacy: [facility], 181.5, cm, 03/19/24 8:27:00 EST, Height, kg, 03/19/24 8:27:00 EST, Dosing Weight Start Date: 03/19/24 Stop Date: 09/15/24 Status: Ordered Quantity: 90.0 Unit: tab(s) Repeat number: 2 Start: 12-03-2023 Potassium Chlo ride (Tgq-Xhdz-Hfe M20) 20 mEq oral tablet, extended release Dose : 20 mEq = 1 tab(s), Oral, qDay, # 30 tab(s), 0 Refill(s), Pharmacy: [facility], 183, cm, 09/12/23 7:34:00 EDT, Height, kg, 09/12/23 7:34:00 EDT, Dosing Weight Start Date: 12/03/23 Status: Ordered Start: 12-01-2023 End: 12-01-2023 Start: 01-24-2023 take 20 mEq by mouth once daily Potassium Chloride Active 20 MEQ PO DAILY January 24, 2023 1:00am Start: 07-18-2022 End: 03-01-2023 take 20 mEq by mouth once daily Potassium Chloride Discontinued 20 MEQ PO DAILY July 18, 2022 3:58pm March 01, 2023 3:02pm rosuvastatin calcium 40 mg oral tablet (20 sources) HMG-CoA Reductase Inhibitor Start: 07-25-2024 rosuvastatin 40 mg oral tablet Dose : 40 mg = 1 tab(s), Oral, qDay, # 90 tab(s), 0 Refill(s), Pharmacy: [facility], 182, cm, 07/25/24 11:13:00 EDT, Height, kg, 07/25/24 11:13:00 EDT, Dosing Weight Start Date: 07/25/24 Status: Ordered Quantity: 90.0 Unit: tab(s) Repeat number: 1 Start: 03-19-2024 End: 09-15-2024 rosuvastatin 10 mg oral tabl et Dose : 10 mg = 1 tab(s), Oral, qDay, # 90 tab(s), 1 Refill(s), Pharmacy: [facility], 181.5, cm, 03/19/24 8:27:00 EST, Height, kg, 03/19/24 8:27:00 EST, Dosing Weight Start Date: 03/19/24 Stop Date: 09/15/24 Status: Ordered Quantity: 90.0 Unit: tab(s) Repeat number: 2 Start: 05-22-2022 End: 03-10-2024 rosuvastatin 10 mg oral tabl et Dose : 10 mg = 1 tab(s), Oral, qDay, # 90 tab(s), 1 Refill(s), Pharmacy: [id number], 183, cm, 09/12/23 7:34:00 EDT, Height, kg, 09/12/23 7:34:00 EDT, Dosing Weight Start Date: 09/12/23 Stop Date: 03/10/24 Status: Ordered traZODone hydrochloride 50 mg oral tablet (9 sources) Serotonin Reuptake Inhibitor Start: 06-13-2024 traZODone 50 mg oral tablet Dose : 50 mg = 1 tab(s), Oral, qHS, # 30 tab(s), 3 Refill(s), Pharmacy: [facility], 181.5, cm, 03/19/24 8:27:00 EST, Height, kg, 03/19/24 8:27:00 EST, Dosing Weight Start Date: 06/13/24 Status: Ordered Quantity: 30.0 Unit: tab(s) Repeat number: 4 Start: 12-03-2023 traZODone 50 m g oral tablet Dose : 50 mg = 1 tab(s), Oral, qHS, # 30 tab(s), 0 Refill(s), Pharmacy: [facility], 183, cm, 09/12/23 7:34:00 EDT, Height, kg, 09/12/23 7:34:00 EDT, Dosing Weight Start Date: 12/03/23 Status: Ordered Start: 12-01-2023 End: 12-01-2023 Start: 12-01-2023 End: 12-01-2023 take 1 tablet by rosie th once daily traZODone (Desyrel) 50 MG tablet Take 50 mg by mouth Nightly. Active Completed/Discontinued Medications Medication Drug Class(es) Dates Sig (Normalized) Sig (Original) acetaminophen 500 mg oral tablet (8 sources) Start: 12-01-2023 End: 12-01-2023 take 1 dose by mouth four times daily, then take 4000 mg by mouth every twenty-four hours 1,000 mg, Oral, Every 6 hours scheduled (4 times per day), First dose on 12/01/23 at 1230, Maximum dose of acetaminophen is 4000 mg from all sources in 24 hours. Start: 12-01-2023 End: 12-01-2023 1,000 mg, Oral, Once, On 12/01/23 at 0650, For 1 dose, Maximum dose of acetaminophen is 4000 mg from all sources in 24 hours. take 650 mg by mouth every four hours as needed ACETAMINOPHEN (TYLENOL ORAL) Take 650 mg by mouth every 4 hours as needed. 0 Active Comment on above: Take 650 mg by mouth every 4 hours as needed. [id number] 200 actuat albuter ol 0.09 mg/actuat metered dose inhaler (20 sources) beta2-Adrenergic Agonist Start: 12-01-2023 End: 12-01-2023 Start: 05-22-2022 take 2.5 mg by inhal ation every four hours Albuterol Sulfate Active 2.5 MG INHALATION Q4H May 22, 2022 12:00am Start: 05-22-2022 take 1 puff(s) by in halation every four hours Albuterol Sulfate Active 2 PUFF INHALATION Q4H May 22, 2022 12:00am Start: 10-28-2021 albuterol Cont inuous Inhalation Soln See Instructions, 0 Refill(s), 99.8 Start Date: 10/28/21 Status: Ordered Repeat number: 1 Start: 10-28-2021 albuterol Cont inuous Inhalation Soln See Instructions, 0 Refill(s), 99.8 Start Date: 10/28/21 Status: Ordered take 2 puff(s) by in halation every six hours as needed albuterol 108 (90 Base) MCG/ACT inhaler Inhale 2 puffs every 6 hours as needed. Active take 1-2 puff(s) by inhalation every six hours as needed ALBUTEROL SULFATE INHALATION Inhale 1-2 Puffs as instructed every 6 hours as needed. 0 Active Comment on above: Inhale 1-2 Puffs as instructed every 6 hours as needed. amLODIPine 5 mg oral tablet (20 sources) Dihydropyridine Calcium Channel Hola Start: 06-16-19 End: 06-21-19 take 5 mg by mouth once daily Amlodipine Discontinued 5 MG PO DAILY June 15, 2022 10:40am June 20, 2022 11:29am bacitracin 0.5 unt/mg topical ointment (2 sources) Start: 12-01-19 End: 12-01-19 apply 1 dose topically once Topical, Once, On 12/01/23 at 0750, For 1 dose, Apply to right scalp abrasion Budesonide-Glycopy r-Formoterol (8 sources) Corticosteroid, beta2-Adrenergic Agonist Start: 01-09-20 End: 01-23-20 Budesonide-Glycopyr -Formoterol (Breztri Aerosphere) 160-9-4.8 mcg/actuation HFA aerosol inhaler Discontinued 2 INH INHALATION TWICE A DAY 10.January 08, 2023 1:00am January 22, 2023 2:37pm Start: 01-08-2023 End: 01-22-2023 Hwkkwqilne-Tselpwzj-Covtneos ol (Breztri Aerosphere) 160-9-4.8 mcg/actuation HFA aerosol inhaler Discontinued 2 INH INHALATION TWICE A DAY .January 08, 2023 12:00am January 22, 2023 1:37pm Start: 07-19-2021 take 2 puff(s) by inhalation twice daily BREZTRI AEROSPHERE 160-9-4.8 mcg/actuati on HFA aerosol inhaler INHALE 2 PUFFS INTO LUNGS TWICE DAILY 0 07/19/2021 Active Comment on above: INHALE 2 PUFFS INTO LUNGS TWICE DAILY 24 hr buPROPion hydrochloride 150 mg extended release oral tablet (10 sources) Aminoketone Start: 12-01-2023 End: 12-01-2023 take 150 mg by mouth once daily 150 mg, Oral, Daily, First dose on 12/01/23 at 1130, Do not crush, chew, or split. Start: 03-01-2023 take 150 mg by mouth once keri y Bupropion Hcl (Smoking Deter) Active 150 MG PO DAILY March 01, 2023 1:00am Start: 09-13-2022 End: 03-01-2023 take 150 mg by mouth once daily in the morning Bupropion Hcl Discontinued 150 MG PO EVERY MORNING September 13, 2022 12:00am March 01, 2023 3:00pm take 1 tablet by rosie th twice daily buPROPion SR (Wellbutrin SR) 150 MG 12 hr tablet Take 150 mg by mouth 2 times daily. Do not crush, chew, or split. Active cephalexin 500 mg oral capsule (4 sources) Cephalosporin Antibacterial Start: 10-20-2022 End: 01-08-2023 take 500 mg by mouth three times daily Cephalexin Discontinued 500 MG PO THREE TIMES A DAY October 20, 2022 12:00am January 08, 2023 8:51am dicyclomine hydrochloride 20 mg oral tablet (11 sources) Anticholinergic Start: 07-10-2022 End: 01-08-2023 take 20 mg by mouth twice daily Dicyclomine Discontinued 20 MG PO TWICE A DAY November 06, 2022 2:28pm January 08, 2023 8:51am 0.4 ml enoxaparin sodium 100 mg/ml prefilled syringe (2 sources) Low Molecular Weight Heparin Start: 12-01-2023 End: 12-01-2023 60 actuat formoterol fumarate 0.005 mg/actuat / mometasone furoate 0.2 mg/actuat metered dose inhaler (2 sources) Corticosteroid, beta2-Adrenergic Agonist Start: 12-01-2023 End: 12-01-2023 iopamidol (Isovue-370) 76 % injection 100 mL (2 sources) Start: 12-01-2023 End: 12-01-2023 take 100 mL intravenously once as needed 100 mL, IntraVENous, IMG once PRN, contrast, Starting on 12/01/23 at 0434, For 1 dose lidocaine 0.04 mg/mg medicated patch (2 sources) Antiarrhythmic, Amide Local Anesthetic Start: 12-01-2023 End: 12-01-2023 apply 1 dose transdermal route once daily, then apply 1 dose transdermal route every twelve hours 1 patch, TransDERmal, Administer over 12 Hours, Daily, First dose on 12/01/23 at 0900, Apply patch to where pain is most severe. Patch may remain in place for up to 12 hours in any 24 hour period. melatonin 3 mg oral tablet (2 sources) Start: 12-01-2023 End: 12-01-2023 10 ml methocarbamol 100 mg/ml injection (2 sources) Muscle Relaxant Start: 12-01-2023 End: 12-01-2023 1,000 mg, IntraVENous, Administer over 5 Minutes, Once, On 12/01/23 at 0650, For 1 dose, Maximum dose: 3 g/day for no more than 3 consecutive days metoprolol tartrate 25 mg oral tablet (4 sources) beta-Adrenergic Hola take 1 tablet by mouth every twelve hours metoprolol tartrate, short acting, (LOPRESSOR) 25 mg tablet Take 25 mg by mouth every 12 hours. 0 Active Comment on above: Take 25 mg by mouth every 12 hours. 1 ml naloxone hydrochloride 0.4 mg/ml injection (2 sources) Opioid Antagonist Start: 12-01-2023 End: 12-01-2023 0.4 mg, IntraVENous, Every 5 min PRN, opioid reversal, respiratory depression, Starting on 12/01/23 at 0907, +++ For RR nystatin 347110 unt/ml oral suspension (11 sources) Polyene Antifungal Start: 05-22-2022 End: 06-15-2022 take 1 [tsp_us] by mouth three times daily Nystatin Discontinued 1 ML PO THREE TIMES A DAY May 22, 2022 12:00am June 15, 2022 10:09am take 1 tsp swish, gargle and swallow by mouth, 3 times daily x 1 week. OMEGA-3 ACID ETHYL ESTERS (LOVAZA ORAL) (4 sources) OMEGA-3 ACID ETHYL ESTERS (LOVAZA ORAL) Take by mouth once daily. 0 Active Comment on above: Take by mouth once d aily. ondansetron 4 mg disintegrating oral tablet (7 sources) Serotonin-3 Receptor Antagonist Start: 07-10-2022 End: 11-20-2023 take 4 mg by mouth every eight hours as needed Ondansetron Discontinued 4 MG PO EVERY 8 HOURS NEEDED July 10, 2022 12:00am January 08, 2023 8:51am ondansetron ODT (Zofran-ODT) disintegrating tablet 4 mg (2 sources) Start: 12-01-2023 End: 12-01-2023 take 1 tablet by mouth every eight hours as needed for nausea and vomiting ondansetron ODT (Zofran-ODT) disintegrating tablet 4 mg pantoprazole 40 mg delayed release oral tablet (2 sources) Proton Pump Inhibitor Start: 12-01-2023 End: 12-01-2023 polyethylene glycol 3350 [id number] mg powder for oral solution (2 sources) Osmotic Laxative Start: 12-01-2023 End: 12-01-2023 take 17 g by mouth every twenty-four hours as needed for constipation prazosin 1 mg oral capsule (9 sources) alpha-Adrenergic Hola Start: 12-01-2023 End: 12-01-2023 Start: 12-01-2023 End: 12-01-2023 Start: 09-12-2023 prazosin 1 mg oral capsule 0 Refill(s) Start Date: 09/12/23 Status: Ordered Repeat number: 1 predniSONE 20 mg oral tablet (16 sources) Start: 08-28-2022 End: 09-13-2022 take 20 mg by mouth once daily Prednisone Discontinued 20 MG PO DAILY August 28, 2022 12:00am September 13, 2022 11:25am Start: 05-29-2022 End: 06-15-2022 take 4 tablets by mouth once daily in the morning, then take 3 tablets by mouth once daily, then take 2 tablets by mouth once daily, then take 1 tablet by mouth once daily Prednisone Discontinued 10 MG PO As Directed 48 May 29, 2022 12:00am June 15, 2022 10:09am Take 4 tablets daily in the morning by mouth x3 days, then 3 tablets daily for 3 days, then 2 tablets daily for 3 days, then 1 tablet daily until gone. 12 hr ranolazine 500 mg extended release oral tablet (4 sources) Anti-anginal Start: 12-01-2023 End: 12-01-2023 rOPINIRole (4 sources) Nonergot Dopamine Agonist ROPINIROLE HCL (REQUIP ORAL) Take by mouth daily at bedtime. 0 Active Comment on above: Take by mouth daily at bedtime. 24 hr testosterone 0.0833 mg/hr transdermal system (4 sources) Androgen apply 1 dose transdermal route once daily testosterone (ANDRODERM) 2 mg/24 hour Apply 1 Patch as directed once daily. 0 Active Comment on above: Apply 1 Patch as dir ected once daily. 10 actuat tiotropium 0.0025 mg/actuat inhalation spray (11 sources) Anticholinergic Start: 12-01-2023 End: 12-01-2023 Start: 01-22-2023 take 2.5 ug by inhal ation once daily Tiotropium [place] (Spiriva Respimat) 2.5 mcg/actuation mist Active 2 INH INHALATION daily January 22, 2023 1:00am administer at approximately the same time(s) each day Start: 08-28-2022 End: 10-05-2022 take 1 puff(s) by inhalation once daily Tiotropium [place] (Spiriva Respimat) 2.5 mcg/actuation mist Discontinued 2 PUFF INHALATION DAILY August 28, 2022 12:00am October 05, 2022 8:45am Start: 08-28-2022 End: 10-05-2022 take 1 puff(s) by inhalation once daily Tiotropium [place] (Spiriva Respimat) 2.5 mcg/actuation mist Discontinued 2 PUFF INHALATION DAILY August 27, 2022 11:00pm October 05, 2022 7:45am Start: 08-28-2022 take 1 puff(s) by in halation once daily Tiotropium [place] (Spiriva Respimat) 2.5 mcg/actuation mist Active 2 PUFF INHALATION DAILY August 28, 2022 12:00am varenicline 0.5 mg oral tablet (4 sources) Partial Cholinergic Nicotinic Agonist Start: 08-31-2021 take 1 tablet by mouth once daily varenicline (CHANTIX STARTING MONTH BOX) 0.5 mg (11)- 1 mg (42) tablet Indications: Tobacco use current Take 0.5 mg by mouth once daily on Days 1 through 3, THEN 0.5 mg twice daily on Days 4 through 7, THEN 1 mg twice daily on Day 8 and thereafter 53 tablet 0 08/31/2021 Active Comment on above: Take 0.5 mg by mouth once daily on Days 1 through 3, THEN 0.5 mg twice daily on Days 4 through 7, THEN 1 mg twice daily on Day 8 and thereafter Problems Active Problems Problem Classification Problem Date Documented Da te Episodic/Chronic Acute myocardial infarction (4 sources) ST elevation (STEMI) myocardial infarction of unspecified site; Translations: [Myocardial infarction] Onset: 6 12-05-2021 Chronic Anxiety disorders (20 sources) Anxiety; Translations: [Anxiety disorder, unspecified] 05-12-2022 Chronic Asthma (3 sources) Unspecified asthma, uncomplicated; Translations: [Unspecified asthma, uncomplicated] Onset: 7 Chronic Blindness and vision defects (2 sources) Blurring of visual image 07-25-2024 Episodic Chronic kidney disease (4 sources) Chronic kidney disease stage 3A 03-19-2024 Chronic Chronic obstructive pulmonary disease and bronchiectasis (20 sources) Chronic obstructive pulmonary disease, unspecified; Translations: [Emphysema, unspecified] Onset: 7 Chronic Congestive heart failure; nonhypertensive (11 sources) Congestive heart failure; Translations: [Unspecified systolic (congestive) heart failure] 05-19-2022 Chronic Coronary atherosclerosis and other heart disease (20 sources) Atherosclerotic heart disease of [place] coronary artery with unspecified angina pectoris; Translations: [Old myocardial infarction] Onset: 6 Chronic Disorders of lipid metabolism (20 sources) Hyperlipidemia, unspecified; Translations: [Hyperlipidemia] Onset: 7 05-19-2022 Chronic E Codes: Fall (10 sources) Fall; Translations: [Unspecified fall, initial encounter] Onset: 4 12-01-2023 Episodic Esophageal disorders (13 sources) Gastro-esophageal reflux disease without esophagitis; Translations: [Gastroesophageal reflux disease] Onset: 7 05-19-2022 Chronic Essential hypertension (20 sources) Essential (primary) hypertension; Translations: [Hypertensive disorder] Onset: 7 12-29-2021 Chronic Fluid and electrolyte disorders (4 sources) Hypokalemia 03-19-2024 Episodic Gastroduodenal ulcer (except hemorrhage) (5 sources) H/O: gastric ulcer 06-20-2023 Episodic Gastrointestinal hemorrhage (2 sources) Gastrointestinal hemorrhage, unspecified; Translations: [Melena] Onset: 5 Episodic Headache; including migraine (2 sources) Headache 07-25-2024 Episodic Intracranial injury (4 sources) Concussion injury of body structure; Translations: [Concussion] Onset: 4 12-01-2023 Episodic Malaise and fatigue (4 sources) Fatigue 03-19-2024 Episodic Mood disorders (11 sources) Depressive disorder; Translations: [Depression] 05-12-2022 Chronic Noninfectious gastroenteritis (7 sources) Gastroenteritis; Translations: [Noninfective gastroenteritis and colitis, unspecified] 07-18-2022 Episodic Other circulatory disease (5 sources) History of cerebrovascular accident 06-20-2023 Episodic Other connective tissue disease (5 sources) Pain in left arm; Translations: [Pain in left arm] Onset: 3 Episodic Other connective tissue disease (2 sources) Pain in left arm; Translations: [Pain in limb] 11-06-2022 Episodic Other connective tissue disease (5 sources) Pain in lower limb 06-20-2023 Episodic Other fractures (1 source) Collapsed vertebra, not elsewhere classified, lumbar region, initial encounter for fracture; Translations: [Collapsed vertebra, not elsewhere classified, lumbar region, initial encounter for fracture] Onset: 5 Episodic Other gastrointestinal disorders (1 source) Constipation, unspecified; Translations: [Constipation, unspecified] Onset: 5 Episodic Other hereditary and degenerative nervous system conditions (2 sources) Restless legs syndrome; Translations: [Restless legs syndrome] Onset: 7 Chronic Other hereditary and degenerative nervous system conditions (2 sources) Restless legs; Translations: [Restless legs syndrome] Onset: 5 12-05-2021 Chronic Other infections; including parasitic (5 sources) Personal history of other infectious and parasitic diseases; Translations: [History of 2019 novel coronavirus disease (COVID-19)] Onset: 2 Episodic Other lower respiratory disease (16 sources) Hemoptysis; Translations: [Hemoptysis] Onset: 2 Episodic Other lower respiratory disease (9 sources) Dyspnea on exertion; Translations: [Shortness of breath] Onset: 2 Episodic Other lower respiratory disease (11 sources) Snoring; Translations: [Snoring] 05-29-2022 Episodic Other lower respiratory disease (15 sources) Hemoptysis; Translations: [Hemoptysis, unspecified] 05-22-2022 Episodic Other lower respiratory disease (14 sources) Snoring; Translations: [Other respiratory abnormalities] 05-22-2022 Episodic Other lower respiratory disease (5 sources) History of chronic obstructive airway disease 06-20-2023 Episodic Other male genital disorders (5 sources) Male erectile dysfunction, unspecified; Translations: [Impotence of organic origin] Onset: 7 12-05-2021 Chronic Other nervous system disorders (2 sources) Neuropathy; Translations: [Polyneuropathy, unspecified] Onset: 5 12-05-2021 Chronic Other nervous system disorders (1 source) Paresthesia; Translations: [Paresthesia of skin] Onset: Episodic Other nutritional; endocrine; and metabolic disorders (5 sources) Body mass index 30+ - obesity 09-12-2023 Chronic Other nutritional; endocrine; and metabolic disorders (4 sources) Hypomagnesemia 03-19-2024 Chronic Other screening for suspected conditions (not mental disorders or infectious disease) (12 sources) Cardiovascular stress test abnormal; Translations: [Abnormal result of other cardiovascular function study] Onset: 5 05-24-2022 Episodic Peripheral and visceral atherosclerosis (1 source) Atherosclerosis of renal artery; Translations: [Atherosclerosis of renal artery] Onset: Chronic Residual codes; unclassified (5 sources) Sleep apnea; Translations: [Sleep apnea, unspecified] 08-28-2022 Chronic Residual codes; unclassified (1 source) Sleep apnea, unspecified; Translations: [Unspecified sleep apnea] 08-28-2022 Chronic Residual codes; unclassified (4 sources) Obstructive sleep apnea syndrome 03-19-2024 Chronic Residual codes; unclassified (7 sources) Noncompliance with medication regimen 01-13-2020 Episodic Residual codes; unclassified (11 sources) FH: Cardiovascular disease; Translations: [Family history of ischemic heart disease and other diseases of the circulatory system] 05-24-2022 Episodic Spondylosis; intervertebral disc disorders; other back problems (6 sources) Backache; Translations: [Dorsalgia, unspecified] Onset: 5 12-01-2023 Episodic Substance-related disorders (20 sources) Nicotine dependence, cigarettes, uncomplicated; Translations: [Nicotine dependence, unspecified, uncomplicated] Onset: 7 05-29-2022 Chronic Unclassified (5 sources) Patient encounter status 09-12-2023 Unclassified (1 source) Eosinophilia, unspecified; Translations: [Eosinophilia, unspecified] Onset: Past or Other Problems Problem Classification Problem Date Documented Da te Episodic/Chronic Abdominal pain (3 sources) Right lower quadrant pain; Translations: [RIGHT LOWER QUADRANT MARILEE] Onset: 08-06-2016 Episodic Administrative/social admission (12 sources) Administrative reason for encounter; Translations: [Encounter for other administrative examinations] Onset: 04-11-2024 05-19-2022 Episodic Allergic reactions (2 sources) Allergy status to other drugs, medicaments and biological substances status; Translations: [Allergy status to oth drug/meds/biol subst status] Onset: 11-20-2016 Episodic Coronary atherosclerosis and other heart disease (20 sources) Coronary angioplasty status; Translations: [Presence of coronary angioplasty implant and graft] Onset: 04-18-2016 05-24-2022 Episodic Nonspecific chest pain (20 sources) Chest pain, unspecified; Translations: [Other chest pain] Onset: 11-20-2016 05-19-2022 Episodic Other aftercare (3 sources) residential (current) use of aspirin; Translations: [Encounter for change or removal of surgical wound dressing] Onset: 08-06-2016 Episodic Other connective tissue disease (1 source) Pain in leg, unspecified; Translations: [Pain in leg, unspecified] Onset: 12-12-2023 Episodic Other lower respiratory disease (12 sources) Chronic cough; Translations: [Chronic cough] Onset: 04-11-2024 08-28-2022 Episodic Other lower respiratory disease (7 sources) Other forms of dyspnea; Translations: [Other respiratory abnormalities] Onset: 03-21-2024 01-22-2023 Episodic Other lower respiratory disease (1 source) Shortness of breath; Translations: [Shortness of breath] Onset: 03-13-2024 Episodic Other non-traumatic joint disorders (2 sources) Pain in elbow; Translations: [Pain in unspecified elbow] Onset: 10-02-2014 12-05-2021 Episodic Residual codes; unclassified (7 sources) Tobacco user; Translations: [Tobacco use] Onset: 10-26-2015 Episodic Residual codes; unclassified (11 sources) History of cardiac catheterization; Translations: [Other specified postprocedural states] Onset: 07-20-2016 05-24-2022 Episodic Unclassified (6 sources) Family history of other specified conditions; Translations: [Family history of ischemic heart disease and other diseases of the circulatory system] Onset: 09-19-2016 Episodic Results Test Name Value Interpretation Reference Range Facility XR CHEST 2 VIEWSon XR CHEST 2 VIEWS ORIGINAL EXAMINATION: TWO XRAY VIEWS OF THE CHEST 07/28/2024 12:47 pm COMPARISON: 12/19/2023 HISTORY: ORDERING SYSTEM PROVIDED HISTORY: Reason for Exam: Shortness of breath for 2 days. FINDINGS: The lungs are without acute focal process. There is no effusion or pneumothorax. The cardiomediastinal silhouette is without acute process. The osseous structures are without acute process. IMPRESSION: No acute process. Interpreted by: Diomedes Gracia DO Preliminary Report By: Diomedes Gracia DO Electronically signed By Diomedes Gracia DO Dictated Date: 08/01/2024 8:19:35 AM Prelim Date: 08/01/2024 8:20:59 AM Sign Date: 08/01/2024 8:20:59 AM Ordering Provider: MICHELLE Batista [facility] .Auto Diffon 07-28-2024 Basophil, Absolute 0.0 10 3/mcL Normal 0.0-0.3 [facility] Comment on above: Performed By: #### C MP, CRP, CBC, ANEU, GFR, ADIFF ####[facility] [place] [facility] [place], [place] [address] Basophils/100 WBC (Bld) 0.1 % Normal 0.0-2.5 [facility] Comment on above: Performed By: #### C MP, CRP, CBC, ANEU, GFR, ADIFF ####[facility] [place] [facility] [place], [place] [address] Eosinophil, Absolute 0.0 10 3/mcL Normal 0.0-0.7 [facility] Comment on above: Performed By: #### C MP, CRP, CBC, ANEU, GFR, ADIFF ####[address] [address] [address] Eosinophils/100 WBC (Bld) 0.1 % Normal 0.0-6.0 [facility] Comment on above: Performed By: #### C MP, CRP, CBC, ANEU, GFR, ADIFF ####[place] [address] [place], [place] [address] Lymphocyte, Absolute 2.4 10 3/mcL Normal 0.9-4.3 [facility] Comment on above: Performed By: #### C MP, CRP, CBC, ANEU, GFR, ADIFF ####[place] [address] [place], [place] [address] Lymphocytes/100 WBC (Bld) 20.4 % Normal 20.0-40.0 [facility] Comment on above: Performed By: #### C MP, CRP, CBC, ANEU, GFR, ADIFF ####[address] [address] Monocyte, Absolute 1.0 10 3/mcL Normal 0.1-1.4 [facility] Comment on above: Performed By: #### C MP, CRP, CBC, ANEU, GFR, ADIFF ####[address] [address] Monocytes/100 WBC (Bld) 8.6 % Normal 2.0-13.0 [facility] Comment on above: Performed By: #### C MP, CRP, CBC, ANEU, GFR, ADIFF ####[place] [address] [place], [place] [address] Neutrophils/100 WBC (Bld) 70.8 % Normal 50.0-75.0 [facility] Comment on above: Performed By: #### C MP, CRP, CBC, ANEU, GFR, ADIFF ####[address] [place], [place] [address] .GFRon 07-28-2024 Estimated Glomerular Filtration Rate 73 ml/min/1.73sqm Normal [facility] Comment on above: Result Comment: Stages of Chronic Kidney Disease (CKD) Stage Description eGFR(ml/min/1.73 sq.m.) CKD 1 Normal kidney function or >=90 normal kindney function with possible kidney damage (ex. Proteinuria) CKD 2 Kidney damage with mild loss 60-89 of kidney function CKD 3a Mild to moderate loss of kidney 45-59 function CKD 3b Moderate to severe loss of 30-44 of kindey function CKD 4 Severe loss of kidney function 15-29 CKD 5 Kidney failure <15 Note: (go live 2024) the eGFR calculation was updated to the 2020 CKD-EPI creatinine equation without a race factor to calculate the eGFR results. Performed By: #### C MP, CRP, CBC, ANEU, GFR, ADIFF ####[address] [address] [place], [place] [address] .NEUABSon 07-28-2024 Neutrophil, Absolute 8.5 10 3/mcL High 2.3-8.1 [facility] Comment on above: Performed By: #### C MP, CRP, CBC, ANEU, GFR, ADIFF ####[address] [address] CBCon 07-28-2024 Erythrocyte distribution width (RBC) [Ratio] 13.5 % Normal 11.5-15.5 [facility] Comment on above: Performed By: #### C MP, CRP, CBC, ANEU, GFR, ADIFF #### [address] [address] Hematocrit (Bld) [Volume fraction] 42.6 % Normal 40.0-52.0 [facility] Comment on above: Performed By: #### C MP, CRP, CBC, ANEU, GFR, ADIFF #### [address] [address] Hgb 14.7 G/dL Normal 13.0-17.5 [facility] Comment on above: Performed By: #### C MP, CRP, CBC, ANEU, GFR, ADIFF #### [address] [address] MCH (RBC) [Entitic mass] 30.9 pg Normal 27.0-33.0 [facility] Comment on above: Performed By: #### C MP, CRP, CBC, ANEU, GFR, ADIFF #### [address] [address] MCHC 34.5 G/dL Normal 32.0-36.0 [facility] Comment on above: Performed By: #### C MP, CRP, CBC, ANEU, GFR, ADIFF #### [address] [address] MCV (RBC) [Entitic vol] 89.6 fL Normal 81.0-100.0 [facility] Comment on above: Performed By: #### C MP, CRP, CBC, ANEU, GFR, ADIFF #### [address] [address] Platelet 341 10 3/mcL Normal 150-450 [facility] Comment on above: Performed By: #### C MP, CRP, CBC, ANEU, GFR, ADIFF #### [address] [address] Platelet mean volume (Bld) [Entitic vol] 6.3 fL Low 6.4-10.5 [facility] Comment on above: Performed By: #### C MP, CRP, CBC, ANEU, GFR, ADIFF #### [address] [address] RBC 4.76 10 6/mcL Normal 4.50-6.00 [facility] Comment on above: Performed By: #### C MP, CRP, CBC, ANEU, GFR, ADIFF #### [address] [address] WBC 12.0 10 3/mcL High 4.5-10.8 [facility] Comment on above: Performed By: #### C MP, CRP, CBC, ANEU, GFR, ADIFF #### [address] [address] CMPon 07-28-2024 Albumin Level 3.7 G/dL Normal 3.5-5.0 [facility] Comment on above: Performed By: #### C MP, CRP, CBC, ANEU, GFR, ADIFF ####[address] [address] Albumin/Globulin [Mass ratio] 0.9 {ratio} Low 1.1-2.5 [facility] Comment on above: Performed By: #### C MP, CRP, CBC, ANEU, GFR, ADIFF ####[address] [address] ALP [Catalytic activity/Vol] 122 U/L Normal 40-135 [facility] Comment on above: Performed By: #### C MP, CRP, CBC, ANEU, GFR, ADIFF ####[place] [address] ALT [Catalytic activity/Vol] 21 U/L Normal 16-63 [facility] Comment on above: Performed By: #### C MP, CRP, CBC, ANEU, GFR, ADIFF ####[place] [id number] AST [Catalytic activity/Vol] 13 U/L Normal 10-40 [facility] Comment on above: Performed By: #### C MP, CRP, CBC, ANEU, GFR, ADIFF ####[place] [address] Bili Total 0.6 mg/dL Normal 0.2-1.0 [facility] Comment on above: Result Comment: Use of this assay is not recommended for patients undergoing treatment with eltrombopag due to the potential for falsely elevated results. Performed By: #### C MP, CRP, CBC, ANEU, GFR, ADIFF ####[place] [id number] BUN/Creatinine Ratio 12 ratio Normal 7-27 [facility] Comment on above: Performed By: #### C MP, CRP, CBC, ANEU, GFR, ADIFF ####[place] [id number] Calcium [Mass/Vol] 9.8 mg/dL Normal 8.4-10.2 [facility] Comment on above: Performed By: #### C MP, CRP, CBC, ANEU, GFR, ADIFF ####[address] [address] Chloride [Moles/Vol] 103 mmol/L Normal 98-107 [facility] Comment on above: Performed By: #### C MP, CRP, CBC, ANEU, GFR, ADIFF ####[place] [id number] CO2 [Moles/Vol] 25 mmol/L Normal 22-29 [facility] Comment on above: Performed By: #### C MP, CRP, CBC, ANEU, GFR, ADIFF ####[place] [address] Creatinine [Mass/Vol] 1.21 mg/dL High 0.67-1.17 [facility] Comment on above: Performed By: #### C MP, CRP, CBC, ANEU, GFR, ADIFF ####[place] [address] Electrolyte Balance 12.0 mEq/L Normal 4.0-15.0 [facility] Comment on above: Performed By: #### C MP, CRP, CBC, ANEU, GFR, ADIFF ####[place] [address] Globulin 4.0 G/dL Normal 2.7-4.4 [facility] Comment on above: Performed By: #### C MP, CRP, CBC, ANEU, GFR, ADIFF ####[place] [address] Glucose [Mass/Vol] 96 mg/dL Normal 70-105 [facility] Comment on above: Performed By: #### C MP, CRP, CBC, ANEU, GFR, ADIFF ####[place] [address] Potassium [Moles/Vol] 4.2 mmol/L Normal 3.5-5.1 [facility] Comment on above: Performed By: #### C MP, CRP, CBC, ANEU, GFR, ADIFF ####[place] [address] Sodium [Moles/Vol] 140 mmol/L Normal 136-145 [facility] Comment on above: Performed By: #### C MP, CRP, CBC, ANEU, GFR, ADIFF ####[address] [place], [place] [address] Total Protein 7.7 G/dL Normal 6.4-8.2 [facility] Comment on above: Performed By: #### C MP, CRP, CBC, ANEU, GFR, ADIFF ####[address] [place], [place] [address] Urea nitrogen [Mass/Vol] 14 mg/dL Normal 7-18 [facility] Comment on above: Performed By: #### C MP, CRP, CBC, ANEU, GFR, ADIFF ####[address] [place], [place] [address] CRPon 07-28-2024 C-Reactive Protein 3.3 mg/dL High 0.0-0.3 [facility] Comment on above: Performed By: #### C MP, CRP, CBC, ANEU, GFR, ADIFF ####[facility] [place] [facility] [place], [place] [address] LABORATORYOrdered By: SYSTEM SYSTEM on 07-28-2024 Albumin BCP dye [Mass/Vol] 3.7 G/dL Normal 3 .5 - 5.0 G/dL AO ADM SS Albumin/Globulin [Mass ratio] 0.9 {ratio} Low 1.1 - 2.5 ratio AO ADM SS ALP [Catalytic activity/Vol] 122 U/L Normal 40 - 135 U/L AO ADM SS ALT With P-5'-P [Catalytic activity/Vol] 21 U/L Normal 16 - 63 U/L AO ADM SS AST With P-5'-P [Catalytic activity/Vol] 13 U/L Normal 10 - 40 U/L AO ADM SS Basophils (Bld) [#/Vol] 0.0 103/mcL Normal 0.0 - 0.3 10^3/mcL AO Workflow SS Basophils/100 WBC (Bld) 0.1 % Normal 0.0 - 2.5 % AO Workflow SS Bilirubin [Mass/Vol] 0.6 mg/dL Normal 0.2 - 1 .0 mg/dL AO ADM SS Comment on above: Interpretive Data: U se of this assay is not recommended for patients undergoing treatment with eltrombopag due to the potential for falsely elevated results. Calcium [Mass/Vol] 9.8 mg/dL Normal 8.4 - 10. 2 mg/dL AO ADM SS Chloride [Moles/Vol] 103 mmol/L Normal 98 - 10 7 mmol/L AO ADM SS CO2 [Moles/Vol] 25 mmol/L Normal 22 - 29 mmol/L AO ADM SS Creatinine [Mass/Vol] 1.21 mg/dL High 0.67 - 1.17 mg/dL AO ADM SS CRP [Mass/Vol] 3.3 mg/dL High 0.0 - 0.3 mg/dL AO ADM SS Electrolyte Balance 12.0 mEq/L Normal 4.0 - 15 .0 mEq/L AO ADM SS Eosinophil, Absolute 0.0 103/mcL Normal 0.0 - 0 .7 10^3/mcL AO Workflow SS Eosinophils/100 WBC (Bld) 0.1 % Normal 0. 0 - 6.0 % AO Workflow SS Erythrocyte distribution width (RBC) [Ratio] 13.5 % Normal 11.5 - 15.5 % AO Workflow SS Estimated Glomerular Filtration Rate 73 ml/min/1.73sqm Invalid Interpretation Code AO Chemistry S Comment on above: Interpretive Data: Stages of Chronic Kidney Disease (CKD) Stage Description eGFR(ml/min/1.73 sq.m.) CKD 1 Normal kidney function or >=90 normal kindney function with possible kidney damage (ex. Proteinuria) CKD 2 Kidney damage with mild loss 60-89 of kidney function CKD 3a Mild to moderate loss of kidney 45-59 function CKD 3b Moderate to severe loss of 30-44 of kindey function CKD 4 Severe loss of kidney function 15-29 CKD 5 Kidney failure <15 Note: (go live 2024) the eGFR calculation was updated to the 2020 CKD-EPI creatinine equation without a race factor to calculate the eGFR results. Globulin 4.0 G/dL Normal 2.7 - 4.4 G/dL AO ADM SS Glucose [Mass/Vol] 96 mg/dL Normal 70 - 105 mg/dL AO ADM SS Hematocrit (Bld) [Volume fraction] 42.6 % Normal 40.0 - 52.0 % AO Workflow SS Hemoglobin (Bld) [Mass/Vol] 14.7 G/dL Normal 13.0 - 17.5 G/dL AO Workflow SS Lymphocytes (Bld) [#/Vol] 2.4 103/mcL Normal 0. 9 - 4.3 10^3/mcL AO Workflow SS Lymphocytes/100 WBC (Bld) 20.4 % Normal 20 .0 - 40.0 % AO Workflow SS MCH (RBC) [Entitic mass] 30.9 pg Normal 27. 0 - 33.0 pg AO Workflow SS MCHC 34.5 G/dL Normal 32.0 - 36.0 G/dL AO Workflow SS MCV (RBC) [Entitic vol] 89.6 fL Normal 81.0 - 100.0 fL AO Workflow SS Monocytes (Bld) [#/Vol] 1.0 103/mcL Normal 0.1 - 1.4 10^3/mcL AO Workflow SS Monocytes/100 WBC (Bld) 8.6 % Normal 2.0 - 13.0 % AO Workflow SS Neutrophils (Bld) [#/Vol] 8.5 103/mcL High 2. 3 - 8.1 10^3/mcL AO Workflow SS Neutrophils/100 WBC (Bld) 70.8 % Normal 50 .0 - 75.0 % AO Workflow SS Platelet mean volume (Bld) [Entitic vol] 6.3 fL Low 6.4 - 10.5 fL AO Workflow SS Platelets (Bld) [#/Vol] 341 103/mcL Normal 150 - 450 10^3/mcL AO Workflow SS Potassium [Moles/Vol] 4.2 mmol/L Normal 3.5 - 5.1 mmol/L AO ADM SS Protein [Mass/Vol] 7.7 G/dL Normal 6.4 - 8.2 G/dL AO ADM SS RBC (Bld) [#/Vol] 4.76 106/mcL Normal 4.50 - 6.00 10^6/mcL AO Workflow SS Sodium [Moles/Vol] 140 mmol/L Normal 136 - 145 mmol/L AO ADM SS Urea nitrogen [Mass/Vol] 14 mg/dL Normal 7 - 18 mg/dL AO ADM SS Urea nitrogen/Creatinine [Mass ratio] 12 ratio Normal 7 - 27 ratio AO ADM SS WBC (Bld) [#/Vol] 12.0 103/mcL High 4.5 - 10.8 10^3/mcL AO Workflow SS CT HEAD OR BRAIN W/O CONTRAS Ton 07-25-2024 CT HEAD OR BRAIN W/O CONTRAST ORIGINAL HISTORY: TIA COMPARISON: No TECHNIQUE: Routine noncontrast head CT, with sagittal and coronal reconstructions. This exam was performed according to our departmental dose optimization program, and includes the following measures where applicable: automated exposure control, adjustment of the mAs and/or kVp according to patient size and/or exam, and an iterative reconstruction algorithm. FINDINGS: The ventricles and sulci are normal in size and configuration. There are no abnormal intra or extra-axial fluid collections. [place]-white matter differentiation is maintained. The calvaria and the bones of the base of the skull are intact. IMPRESSION: Negative. Interpreted by: Joel Romero MD Preliminary Report By: Joel Romero MD Electronically signed By Joel Romero MD Dictated Date: 07/25/2024 2:31:53 PM Prelim Date: 07/25/2024 2:32:39 PM Sign Date: 07/25/2024 2:32:39 PM Ordering Provider: JEANNIE Batista [facility] Gastroenterology Visit Repor [facility] 06-27-2024 Gastroenterology Visit Report [facility] Gastroenterology [address] [facility] [place] [address] OFFICE VISIT Date of Service: 06/27/24 MR#: [id number] Acct: [id number] Name: DONTAE PARRA Rep #: [id number] : 1975 Provider: JOEL vega Age/Sex: 48/M Location: [facility] [place] Status: Signed Intake Vital Signs 04/11/24 06:09 Height 6 ft Weight: 226 lb BMI 30.6 BP 135/81 H Blood Pressure Location Rt brachial Position Sitting Respiration 20 H Pulse 83 Pulse Source Monitor Temp 97.3 F L Pulse Oximetry (%) 97 Oxygen Delivery Method room air Intake Visit Reasons: GI Bleed Chief Complaint: Constipation, Rectal bleeding Allergies isosorbide Allergy (Severe, Verified 06/27/24 08:38) Severe headaches amlodipine Adverse Reaction (Intermediate, Verified 06/27/24 08:38) Severe headache Medications ???Medication ???Instructions ???Recorded ???Confirmed ???Type albuterol sulfate 2.5 mg/3 mL 2.5 mg inhalation Q4H PRN 05/22/22 06/26/24 History (0.083 %) solution for nebulization shortness of breath or wheezing albuterol sulfate 90 mcg/actuation 2 puff inhalation Q4H PRN 06/26/24 History aerosol inhaler shortness of breath or wheezing aspirin 81 mg tablet,delayed 81 mg PO DAILY 05/22/22 06/26/24 H istory release magnesium oxide 250 mg PO DAILY 05/22/22 06/26/24 History omeprazole 40 mg capsule,delayed 40 mg PO DAILY 05/22/22 06/26/24 H istory release rosuvastatin 10 mg tablet 10 mg PO DAILY 05/22/22 06/26/24 H istory carvedilol phosphate 20 mg 20 mg PO DAILY 06/15/22 06/26/24 H istory capsule,[id number] hr multiphase montelukast 10 mg tablet 10 mg PO QPM #90 tabs 01/08/2310/13 Rx budesonide 0.5 mg/2 mL suspension 0.5 mg inhalation 01/24/23 History for nebulization potassium chloride 20 mEq 20 meq PO DAILY 01/24/23 06/26/24 History tablet,extended release(part/cryst) hydrochlorothiazide 25 mg tablet 25 mg PO DAILY #30 tabs 05/25/23 0 06/27/24 Rx nitroglycerin 0.4 mg sublingual 0.4 mg sublingual Q5-15M 09/17/23 06/26/24 History tablet ranolazine 500 mg tablet,extended 500 mg PO BID #60 tabs 09/17/23 0 04/11/24 Rx release,12 hr benralizumab 30 mg/mL subcutaneous 30 mg subcut Q8W #1 mL 09/19/23 06/26/24 Rx auto-injector (Fasenra Pen) bupropion HCl (smoking deter) 150 150 mg PO BID #60 tabs 11/06/23 0 06/26/24 Rx mg tablet,12 hr sustained-release(smo usha deterrent) clopidogrel 75 mg tablet 75 mg PO DAILY #90 tabs 11/08/23 0 06/26/24 Rx amantadine HCl (bulk) ea miscellaneous 01/14/24 04/11/24 History ipratropium 0.5 mg-albuterol 3 mg ml inhalation 01/14/24 06/26/24 H istory (2.5 mg base)/3 mL nebulization soln sertraline 50 mg tablet 50 mg PO QDAY #30 tabs 02/19/24 Rx trazodone 100 mg tablet 100 mg PO QHS PRN insomnia #30 tab s 02/19/24 06/26/24 Rx prednisone 10 mg tablet 10 mg PO QDAY #30 tabs 02/29/24 Rx umeclidinium 62.5 mcg-vilanterol 1 inh inhalation Q24H #60 ea 03/1206/26/24 Rx 25 mcg/actuation powdr for inhalation (Anoro Ellipta) guaifenesin 1,200 mg tablet, 1,200 mg PO .QD #30 tabs 04/11/24 04/11/24 Rx extended release 12 hr (Mucinex) prazosin 1 mg capsule 1 mg PO QHS #30 caps 04/22/24 0510/13 Rx fluticasone furoate 200 1 inh inhalation Q24H #30 ea 04/2806/26/24 Rx mcg/actuation blister powder for inhalation (Arnuity Ellipta) isosorbide mononitrate 30 mg 30 mg PO QAM 06/26/24 06/26/24 His tory tablet,extended release 24 hr PFSH Medical History RLQ abdominal pain GI bleed Mild sleep apnea Chronic cough Nicotine dependence Family history of ischemic heart disease and other diseases of the circulatory system Presence of stent in coronary artery ( 02/01/22) Old myocardial infarction Primary snoring Nicotine addiction Hemoptysis Nicotine dependence, cigarettes, uncomplicated Abdominal distension (gaseous) Unspecified systolic (congestive) heart failure Hyperlipidemia Atherosclerosis of coronary artery of [place] heart without angina pectoris Chest pain Noncompliance with medications Essential hypertension Stroke Pneumonia GERD (gastroesophageal reflux disease) COPD (chronic obstructive pulmonary disease) Depression Anxiety Asthma Emphysema, unspecified CAD (coronary artery disease) Encounter for 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 Normal [facility] .Auto Diffon 06-19-2024 Basophil, Absolute 0.0 10 3/mcL Normal 0.0-0.3 [facility] Comment on above: Performed By: #### A ANTONIO CRUZ, CBC #### [address] [address] Lymphocyte, Absolute 2.8 10 3/mcL Normal 0.9-4.3 [facility] Comment on above: Performed By: #### A ANTONIO CRUZ, CBC #### [address] [address] Monocyte, Absolute 0.6 10 3/mcL Normal 0.1-1.4 [facility] Comment on above: Performed By: #### A ANTONIO CRUZ, CBC #### [address] [address] .Auto DiffOrdered By: SYSTEM SYSTEM on 06-19-2024 Basophils/100 WBC (Bld) 0.2 % Normal 0.0-2.5 A O Workflow SS Comment on above: Performed By: #### A ANTONIO CRUZ, CBC #### [address] [address] Eosinophil, Absolute 0.0 103/mcL Normal 0.0-0.7 AO Workflow SS Comment on above: Performed By: #### A ANTONIO CRUZ, CBC #### [address] [address] Eosinophils/100 WBC (Bld) 0.3 % Normal 0.0-6.0 AO Workflow SS Comment on above: Performed By: #### A ANTONIO CRUZ, CBC #### [address] [address] Lymphocytes/100 WBC (Bld) 27.2 % Normal 20.0-40.0 AO Workflow SS Comment on above: Performed By: #### A ANTONIO CRUZ, CBC #### [address] [address] Monocytes/100 WBC (Bld) 6.2 % Normal 2.0-13.0 A O Workflow SS Comment on above: Performed By: #### A ANTONIO CRUZ, CBC #### [address] [address] Neutrophils/100 WBC (Bld) 66.1 % Normal 50.0-75.0 AO Workflow SS Comment on above: Performed By: #### A ANTONIO CRUZ, CBC #### [address] [address] .NEUABSon 06-19-2024 Neutrophil, Absolute 6.9 10 3/mcL Normal 2.3-8.1 [facility] Comment on above: Performed By: #### A ANTONIO CRUZ, CBC #### [address] [address] CBCOrdered By: SYSTEM SYSTEM on 06-19-2024 Erythrocyte distribution width (RBC) [Ratio] 14.1 % Normal 11.5-15.5 AO Workflow SS Comment on above: Performed By: #### A ANTONIO CRUZ, CBC #### [address] [address] Hematocrit (Bld) [Volume fraction] 44.3 % Normal 40.0-52.0 AO Workflow SS Comment on above: Performed By: #### A ANTONIO CRUZ, CBC #### [address] [address] MCH (RBC) [Entitic mass] 31.1 pg Normal 27.0-33.0 AO Workflow SS Comment on above: Performed By: #### A ANTONIO CRUZ, CBC #### [address] [address] MCHC 34.7 G/dL Normal 32.0-36.0 AO Workflow SS Comment on above: Performed By: #### A ANTONIO CRUZ, CBC #### [address] [address] MCV (RBC) [Entitic vol] 89.6 fL Normal 81.0-100.0 A O Workflow SS Comment on above: Performed By: #### A ANTONIO CRUZ, CBC #### [address] [address] Platelet mean volume (Bld) [Entitic vol] 6.3 fL Low 6.4-10.5 AO Workflow SS Comment on above: Performed By: #### A ANTONIO CRUZ, CBC #### [address] [address] CBCon 06-19-2024 Hgb 15.4 G/dL Normal 13.0-17.5 [facility] Comment on above: Performed By: #### A ANTONIO CRUZ, CBC #### [address] [address] Platelet 315 10 3/mcL Normal 150-450 [facility] Comment on above: Performed By: #### A ANTONIO CRUZ, CBC #### [address] [address] RBC 4.94 10 6/mcL Normal 4.50-6.00 [facility] Comment on above: Performed By: #### A ANTONIO CRUZ, CBC #### [address] [address] WBC 10.4 10 3/mcL Normal 4.5-10.8 [facility] Comment on above: Performed By: #### A ANTONIO CRUZ, CBC #### [address] [address] LABORATORYOrdered By: SYSTEM SYSTEM on 06-19-2024 Basophils (Bld) [#/Vol] 0.0 103/mcL Normal 0.0 - 0.3 10^3/mcL AO Workflow SS Hemoglobin (Bld) [Mass/Vol] 15.4 G/dL Normal 13.0 - 17.5 G/dL AO Workflow SS Lymphocytes (Bld) [#/Vol] 2.8 103/mcL Normal 0. 9 - 4.3 10^3/mcL AO Workflow SS Monocytes (Bld) [#/Vol] 0.6 103/mcL Normal 0.1 - 1.4 10^3/mcL AO Workflow SS Neutrophils (Bld) [#/Vol] 6.9 103/mcL Normal 2. 3 - 8.1 10^3/mcL AO Workflow SS Platelets (Bld) [#/Vol] 315 103/mcL Normal 150 - 450 10^3/mcL AO Workflow SS RBC (Bld) [#/Vol] 4.94 106/mcL Normal 4.50 - 6.00 10^6/mcL AO Workflow SS WBC (Bld) [#/Vol] 10.4 103/mcL Normal 4.5 - 10.8 10^3/mcL AO Workflow SS .GFRon 06-18-2024 Estimated Glomerular Filtration Rate 84 ml/min/1.73sqm Normal [facility] Comment on above: Result Comment: Stages of Chronic Kidney Disease (CKD) Stage Description eGFR(ml/min/1.73 sq.m.) CKD 1 Normal kidney function or >=90 normal kindney function with possible kidney damage (ex. Proteinuria) CKD 2 Kidney damage with mild loss 60-89 of kidney function CKD 3a Mild to moderate loss of kidney 45-59 function CKD 3b Moderate to severe loss of 30-44 of kindey function CKD 4 Severe loss of kidney function 15-29 CKD 5 Kidney failure <15 Note: (go live 2024) the eGFR calculation was updated to the 2020 CKD-EPI creatinine equation without a race factor to calculate the eGFR results. Performed By: #### Anne Marie ROSS, CMP #### [address] [address] CMPon 06-18-2024 Albumin Level 4.1 G/dL Normal 3.5-5.0 [facility] Comment on above: Performed By: #### Anne Marie , CMP #### [address] [address] Albumin/Globulin [Mass ratio] 1.1 {ratio} Normal 1.1-2.5 [facility] Comment on above: Performed By: #### Anne Marie ROSS, CMP #### [address] [address] ALP [Catalytic activity/Vol] 118 U/L Normal 40-135 [facility] Comment on above: Performed By: #### Anne Marie ROSS, CMP #### [address] [address] ALT [Catalytic activity/Vol] 35 U/L Normal 16-63 [facility] Comment on above: Performed By: #### G , CMP #### [address] [address] AST [Catalytic activity/Vol] 17 U/L Normal 10-40 [facility] Comment on above: Performed By: #### G , CMP #### [address] [address] Bili Total 0.9 mg/dL Normal 0.2-1.0 [facility] Comment on above: Result Comment: Use of this assay is not recommended for patients undergoing treatment with eltrombopag due to the potential for falsely elevated results. Performed By: #### Anne Marie ROSS, CMP #### [place] [address] BUN/Creatinine Ratio 13 ratio Normal 7-27 [facility] Comment on above: Performed By: #### G , CMP #### [address] [address] Calcium [Mass/Vol] 9.8 mg/dL Normal 8.4-10.2 [facility] Comment on above: Performed By: #### G , CMP #### [address] [address] Chloride [Moles/Vol] 101 mmol/L Normal 98-107 [facility] Comment on above: Performed By: #### G FR, CMP #### [address] [address] CO2 [Moles/Vol] 28 mmol/L Normal 22-29 [facility] Comment on above: Performed By: #### G FR, CMP #### [address] [address] Creatinine [Mass/Vol] 1.08 mg/dL Normal 0.67-1.17 [facility] Comment on above: Performed By: #### G FR, CMP #### [address] [address] Electrolyte Balance 8.0 mEq/L Normal 4.0-15.0 [facility] Comment on above: Performed By: #### G FR, CMP #### [address] [address] Globulin 3.6 G/dL Normal 2.7-4.4 [facility] Comment on above: Performed By: #### G FR, CMP #### [address] [address] Glucose [Mass/Vol] 100 mg/dL Normal 70-105 [facility] Comment on above: Performed By: #### G FR, CMP #### [address] [address] Potassium [Moles/Vol] 3.8 mmol/L Normal 3.5-5.1 [facility] Comment on above: Performed By: #### G FR, CMP #### [address] [address] Sodium [Moles/Vol] 137 mmol/L Normal 136-145 [facility] Comment on above: Performed By: #### G FR, CMP #### [address] [address] Total Protein 7.7 G/dL Normal 6.4-8.2 [facility] Comment on above: Performed By: #### G FR, CMP #### [address] [address] Urea nitrogen [Mass/Vol] 14 mg/dL Normal 7-18 [facility] Comment on above: Performed By: #### G FR, CMP #### [address] [address] [address] ABD/PELVIS W/ IV CONTRAST ONLYon 06-18-2024 CT ABD/PELVIS W/ IV CONTRAST ONLY ORIGINAL EXAMINATION: CT OF THE ABDOMEN AND PELVIS WITH CONTRAST 06/18/2024 4:43 pm TECHNIQUE: CT of the abdomen and pelvis was performed with the administration of intravenous contrast. Multiplanar reformatted images are provided for review. Automated exposure control, iterative reconstruction, and/or weight based adjustment of the mA/kV was utilized to reduce the radiation dose to as low as reasonably achievable. COMPARISON: None. HISTORY: ORDERING SYSTEM PROVIDED HISTORY: Reason for Exam: Right lower quadrant pain, GI bleed FINDINGS: Lower Chest: Coronary calcifications and/or stents. Normal heart size. Dependent atelectasis bilaterally. No focal consolidation or pleural effusion. Organs: The liver appears mildly low density and possibly mildly nodular. And biliary tract appears normal. The spleen appears normal. The pancreas appears normal. The adrenal glands appear normal. The kidneys enhance symmetrically with no evidence of nephrolithiasis or hydronephrosis. GI/Bowel: There is no evidence of obstruction. The appendix is normal. Pelvis: The pelvic organs appear normal. Peritoneum/Retroperit oneum: There is no intraperitoneal free air or ascites. Atherosclerosis of the aorta and major branches without aneurysm is noted. The infrarenal aorta demonstrates ulcerated soft plaque. No lymphadenopathy is identified. Bones/Soft Tissues: Age-indeterminate compression deformity of the L1 vertebral body with approximately 50% height loss anteriorly. Degenerative changes are noted in the spine and sacroiliac joints.. No focal soft tissue abnormality is identified. IMPRESSION: 1. No acute intra-abdominal or pelvic abnormality. 2. Age-indeterminate compression deformity of the L1 vertebral body with approximately 50% height loss anteriorly. 3. The liver appears mildly low density and possibly mildly nodular. Steatosis and/or early cirrhosis not excluded. 4. Atherosclerotic disease including ulcerated soft plaque in the infrarenal aorta. Interpreted by: Levon Pascual Preliminary Report By: Levon Pascual Electronically signed By Levon Pascual Dictated Date: 06/18/2024 6:03:53 PM Prelim Date: 06/18/2024 6:15:42 PM Sign Date: 06/18/2024 6:15:42 PM Ordering Provider: JEANNIE Batista [facility] LABORATORYOrdered By: SYSTEM SYSTEM on 06-18-2024 Albumin BCP dye [Mass/Vol] 4.1 G/dL Normal 3 .5 - 5.0 G/dL AO ADM SS Albumin/Globulin [Mass ratio] 1.1 {ratio} Normal 1.1 - 2.5 ratio AO ADM SS ALP [Catalytic activity/Vol] 118 U/L Normal 40 - 135 U/L AO ADM SS ALT With P-5'-P [Catalytic activity/Vol] 35 U/L Normal 16 - 63 U/L AO ADM SS AST With P-5'-P [Catalytic activity/Vol] 17 U/L Normal 10 - 40 U/L AO ADM SS Bilirubin [Mass/Vol] 0.9 mg/dL Normal 0.2 - 1 .0 mg/dL AO ADM SS Comment on above: Interpretive Data: U se of this assay is not recommended for patients undergoing treatment with eltrombopag due to the potential for falsely elevated results. Calcium [Mass/Vol] 9.8 mg/dL Normal 8.4 - 10. 2 mg/dL AO ADM SS Chloride [Moles/Vol] 101 mmol/L Normal 98 - 10 7 mmol/L AO ADM SS CO2 [Moles/Vol] 28 mmol/L Normal 22 - 29 mmol/L AO ADM SS Creatinine [Mass/Vol] 1.08 mg/dL Normal 0.67 - 1.17 mg/dL AO ADM SS Electrolyte Balance 8.0 mEq/L Normal 4.0 - 15 .0 mEq/L AO ADM SS Estimated Glomerular Filtration Rate 84 ml/min/1.73sqm Invalid Interpretation Code AO Chemistry S Comment on above: Interpretive Data: Stages of Chronic Kidney Disease (CKD) Stage Description eGFR(ml/min/1.73 sq.m.) CKD 1 Normal kidney function or >=90 normal kindney function with possible kidney damage (ex. Proteinuria) CKD 2 Kidney damage with mild loss 60-89 of kidney function CKD 3a Mild to moderate loss of kidney 45-59 function CKD 3b Moderate to severe loss of 30-44 of kindey function CKD 4 Severe loss of kidney function 15-29 CKD 5 Kidney failure <15 Note: (go live 2024) the eGFR calculation was updated to the 2020 CKD-EPI creatinine equation without a race factor to calculate the eGFR results. Globulin 3.6 G/dL Normal 2.7 - 4.4 G/dL AO ADM SS Glucose [Mass/Vol] 100 mg/dL Normal 70 - 105 mg/dL AO ADM SS Potassium [Moles/Vol] 3.8 mmol/L Normal 3.5 - 5.1 mmol/L AO ADM SS Protein [Mass/Vol] 7.7 G/dL Normal 6.4 - 8.2 G/dL AO ADM SS Sodium [Moles/Vol] 137 mmol/L Normal 136 - 145 mmol/L AO ADM SS Urea nitrogen [Mass/Vol] 14 mg/dL Normal 7 - 18 mg/dL AO ADM SS Urea nitrogen/Creatinine [Mass ratio] 13 ratio Normal 7 - 27 ratio AO ADM SS Lipid Profileon 05-26-2024 TRIG Normal [facility] Comment on above: Result Comment: PT L EFT COMING BACK ANOTHER DAY The drugs N-Acetylcysteine and Metamizole may falsely depress this assay. Performed By: #### L 500.4100, L500.3400 ####[facility] [address] [place], [address] CHOL Normal <=200 [facility] Comment on above: Result Comment: PT L EFT COMING BACK ANOTHER DAY Performed By: #### L 500.4100, L500.3400 ####[facility] [address] [place], [address] CHOL:HDL Normal [facility] Comment on above: Result Comment: PT L EFT COMING BACK ANOTHER DAY Performed By: #### L 500.4100, L500.3400 ####[facility] [address] [place], [address] CLDL Normal [facility] Comment on above: Result Comment: PT L EFT COMING BACK ANOTHER DAY Performed By: #### L 500.4100, L500.3400 ####[facility] [address] [place], [address] HDL Normal [facility] Comment on above: Result Comment: PT L EFT COMING BACK ANOTHER DAY Performed By: #### L 500.4100, L500.3400 ####[facility] [address] [place], [address] VLDL Normal 5-40 [facility] Comment on above: Result Comment: PT L EFT COMING BACK ANOTHER DAY Performed By: #### L 500.4100, L500.3400 ####[facility] [address] [place], [address] Liver Profileon 05-26-2024 ALB Normal 3.5-5.0 [facility] Comment on above: Result Comment: PT L EFT COMING BACK ANOTHER DAY Performed By: #### L 500.4100, L500.3400 ####[facility] [address] [place], [address] ALK PHOS Normal 40-129 [facility] Comment on above: Result Comment: PT L EFT COMING BACK ANOTHER DAY Performed By: #### L 500.4100, L500.3400 ####[facility] [address] [place], [address] ALT Normal <=46 [facility] Comment on above: Result Comment: PT L EFT COMING BACK ANOTHER DAY Performed By: #### L 500.4100, L500.3400 ####[facility] [address] [place], [address] AST Normal <=37 [facility] Comment on above: Result Comment: PT L EFT COMING BACK ANOTHER DAY Performed By: #### L 500.4100, L500.3400 ####[facility] [address] [place], [address] D BILI Normal 0.00-0.30 [facility] Comment on above: Result Comment: PT L EFT COMING BACK ANOTHER DAY Performed By: #### L 500.4100, L500.3400 ####[facility] [address] [place], [address] T BILI Normal 0.00-1.30 [facility] Comment on above: Result Comment: PT L EFT COMING BACK ANOTHER DAY Performed By: #### L 500.4100, L500.3400 ####[facility] [address] [place], [address] T PROT Normal 5.9-8.4 [facility] Comment on above: Result Comment: PT L EFT COMING BACK ANOTHER DAY Performed By: #### L 500.4100, L500.3400 ####[facility] [address] [place], [place], [address] Angiotensin Convert Enzymeon 05-16-2024 ANGIOT-CONV.ENZ 73 U/L Normal 14-82 [facility] Comment on above: Result Comment: Perf ormed at: - [facility] [address] [id number] Miller Head Assistant Wet Process: Trent Live PhD, Phone: [phone] Performed By: #### L 310.6907 ####[facility] [address] [place], [place], [address] Chest without Contraston Chest without Contrast [facility] Imaging Services [address] [place], [place] [address] Chest without Contrast MR#: [id number] Acct: [id number] Name: DONTAE PARRA Rep #: [id number] : 1975 M 48 From: Jeyson Dahl MD PCP: JEANNIE HERNANDEZ CORPORATE TRAVEL MANAGER-Valery Status: REG CLI Study: Chest without Contrast Date of Exam: 05/14/24 Exam# [id number] Ordering Dr: Delores Pablo CORPORATE TRAVEL MANAGER- C PROCEDURE: CHEST WITHOUT CONTRAST 05/14/2024 REASON FOR EXAM: CHRONIC COUGH TECHNIQUE: Chest CT without contrast. Coronal and Sagittal reconstruction series were provided. One or more dose reduction techniques were used (e.g., Automated exposure control, adjustment of the mA and/or kV according to patient size, use of iterative reconstruction technique RADIATION DOSE SUMMARY: CTDlvol: 18.15 mGy DLP: 594.10 mGycm COMPARISON: 12/01/2023 FINDINGS: The central airways appear patent. Moderate centrilobular and paraseptal upper zone predominant pulmonary emphysema again noted. Bandlike area of scar at the lingula again seen. Bilateral dependent areas of atelectasis. No focal consolidation, pulmonary nodule or mass identified. No axillary, mediastinal, subcarinal or hilar adenopathy identified. The thoracic aorta appears within limits on noncontrast imaging. Mild atherosclerotic calcification of the arch. Three-vessel coronary calcification and/or stents appears greatest right coronary. No pericardial or pleural effusion. Limited images upper abdomen appear within limits. Cystic change at the lateral right humeral head possible related to calcific tendinosis again noted. Small sclerotic focus right humeral head also again noted, nonspecific, and unchanged, possible bone island. CT/Chest without Contrast IMPRESSION: The central airways appear patent. Moderate centrilobular and paraseptal upper zone predominant pulmonary emphysema again noted. Bandlike area of scar at the lingula again seen. Bilateral dependent areas of atelectasis. No focal consolidation, pulmonary nodule or mass identified. Presence of emphysematous change and a smoker may consider annual low-dose chest CT screening. Three-vessel coronary calcification and/or stents appears greatest right coronary. Reading Location: [id number] CC: JEANNIE MALDONADO ELPIDIO; Delores Pablo NP Equal Opportunity Officer: Signed Normal [facility] Pulmonary Visit Reporton Pulmonary Visit Report [facility] of [address] [place] [address] OFFICE VISIT Date of Service: 04/11/24 MR#: [id number] Acct: [id number] Name: DONTAE PARRA Rep #: [id number] : 1975 Provider: Delores Pablo NP Age/Sex: 48/M Location: [facility] Status: Signed Assessment and Plan Assessment and Plan (1) COPD (chronic obstructive pulmonary disease): Status: Chronic Qualifiers: COPD type: emphysema Emphysema type: unspecified Qualified Code(s): J43.9 - Emphysema, unspecified Comment: Severe asthma overlap syndrome Plan: The patient continues to be symptomatically suboptimally controlled. I plan to look for additional etiologies that would be contributing to current respiratory symptoms. Continue with use of triple therapy for now. (2) Nicotine dependence, cigarettes, uncomplicated: Status: Chronic Plan: Complete smoking cessation is recommended. I plan to reevaluate on follow-up as his quit date is planned for April 19. The patient does not want to proceed with pharmacological intervention to help with smoking cessation at this time. He understands that this practice is willing to assist him in this manner if he would like to proceed. (3) Chronic cough: Status: Chronic Plan: Await BRIAN and sputum for fungus on follow up, aspergillus has been negative and P-ANCA negative as well, sarcoidosis and non-Aspergillus fungi is in the differential. Planning for CT scan. Differential diagnosis includes tracheobronchomalacia , further testing may include bronchoscopy. I have added guaifenesin for the sputum that the patient is reporting as thick. The patient understands that he needs to increase his fluid status. I have recommended drink a full glass of water when he takes the guaifenesin. I have also recommended that he utilize this dose at bedtime. (4) Eosinophilia: Status: Acute Qualifiers: Eosinophilia type: unspecified eosinophilia Qualified Code(s): D72.10 - Eosinophilia, unspecified Comment: Total eosinophil count 255.2 Plan: Fasenra has helped improve cough noticed by others, at this point I recommend that he continue with this regimen. (5) Mild sleep apnea: Status: Chronic Comment: AHI of 8.6 with 20 during REM sleep and 16 during supine sleep. Plan: The patient understands that use of supplement oxygen alone does not adequately treat sleep apnea. For now, he is willing to use 2.5 L of supplemental oxygen at night. I have recommended adding humidification to his regimen. Orders: Orders Fungus Stain ([facility]) Today R05.3 - Chronic cough Angiotensin Convert Enzyme Today R05.3 - Chronic cough Chest without Contrast Today J43.9 - Emphysema, unspecified Medications: New guaifenesin ER (Mucinex) 1,200 mg PO .QD 30 tabs 5RF J43.9 - Emphysema, unspecified Plan Details Follow Up: 4 to 6 weeks (LMR) HPI HPI Comments Details: This 48-year-old male patient presents to the office today to follow up for COPD. He is ambulatory and currently on room air. He was treated with prednisone at last evaluation and reports that the prednisone was beneficial after he completed the course and that it improved his symptoms for approximately 1 week after and now his symptoms have worsened again. He continues to have shortness of breath and reports that his cough is worsening. He reports that he awakens in the morning with so much phlegm in my throat that I cannot get my air. He reports that he is forced to cough so hard that he will have emesis and this will allow for the air to move. He reports that he experiences chest tightness when he is unable to move air in and out of his chest. There are times where his cough is so forceful that his legs will feel wobbly, go numb and tingle. He denies sinus congestion. Cold air is a known trigger that worsens both shortness of breath and cough. Albuterol does improve his symptoms. He denies any fever, chills or body aches. He reports that his symptoms are so problematic that it causes him difficulty in being able to be physically active, he is able to recover when the activity is stopped, a few minutes after resting. He did trial Trelegy but the insurance would not pay for it so then he was placed on Anoro and Arnuity. He is uncertain whether this has given him any benefit. He does report rinsing his mouth out after each use. He denies any medication side effect such as sore throat or thrush. He is also compliant with Singulair daily. He is using albuterol rescue inhaler 3-4 times throughout the day, he does use a nebulizer with budesonide and albuterol as well. He reports use of budesonide nebulized 2-3 times per day. He continues on Fasenra and reports that this has been tolerated without side effect. He has had no injection site reaction. He does continue to smoke cigarettes and is currently smo (more content not included)... Normal [facility] Cardiology Visit Reporton Cardiology Visit Report [facility] [address] [place] [address] OFFICE VISIT Date of Service: 03/28/24 MR#: [id number] Acct: [id number] Name: DONTAE PARRA Rep #: [id number] : 1975 Provider: JOEL delcid Age/Sex: 48/M Location: [facility] Status: Signed HPI HPI History of Present Illness Details: This is a 48-year-old male who presents the office today for a cardiovascular outpatient follow-up. He has an extensive history of coronary artery disease with multiple percutaneous interventions. He has had stents placed to his LAD, ramus intermedius and right coronary artery. Echocardiogram on 07/18/2022 showed ejection fraction of 55% and no significant valvular abnormalities. Heart catheterization on 09/25/2022 via radial approach showed patent stents and no high-grade stenosis. Ejection fraction was preserved at 60%. He also has a past medical history of hypertension, hyperlipidemia, COPD, tobacco abuse, and PTSD. Last night he noted left sided chest pain while lying in bed. He noted numbness to his left hand. He vomited and symptoms improved. When he woke the pain was improve back to baseline. He acknowledges palpitations that he relates to anxiety. He describes this as fast. He acknowledges bilateral lower extremity edema. He denies claudication. He acknowledges shortness of breath with activity and shortness of breath at rest. He denies orthopnea, cough, or PND. He acknowledges lightheadedness when he first stands up. He denies dizziness, near-syncope, or syncope. He continues with fatigue. 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 Is patient in pain?: No Allergies isosorbide Allergy (Severe, Verified 03/28/24 09:55) Severe headaches amlodipine Adverse Reaction (Intermediate, Verified 03/28/24 09:55) Severe headache Medications ???Medication ???Instructions ???Recorded ???Confirmed ???Type albuterol sulfate 2.5 mg/3 mL 2.5 mg inhalation Q4H PRN 05/22/22 03/28/24 History (0.083 %) solution for nebulization shortness of breath or wheezing albuterol sulfate 90 mcg/actuation 2 puff inhalation Q4H PRN 03/28/24 History aerosol inhaler shortness of breath or wheezing aspirin 81 mg tablet,delayed 81 mg PO DAILY 05/22/22 03/28/24 H istory release magnesium oxide 250 mg PO DAILY 05/22/22 03/28/24 History omeprazole 40 mg capsule,delayed 40 mg PO DAILY 05/22/22 03/28/24 H istory release rosuvastatin 10 mg tablet 10 mg PO DAILY 05/22/22 03/28/24 H istory carvedilol phosphate 20 mg 20 mg PO DAILY 06/15/22 03/28/24 H istory capsule,[id number] hr multiphase montelukast 10 mg tablet 10 mg PO QPM #90 tabs 01/08/2309/12 Rx budesonide 0.5 mg/2 mL suspension 0.5 mg inhalation 01/24/23 History for nebulization potassium chloride 20 mEq 20 meq PO DAILY 01/24/23 03/28/24 History tablet,extended release(part/cryst) hydrochlorothiazide 25 mg tablet 25 mg PO DAILY #30 tabs 05/25/23 0 03/28/24 Rx nitroglycerin 0.4 mg sublingual 0.4 mg sublingual Q5-15M 09/17/23 03/28/24 History tablet ranolazine 500 mg tablet,extended 500 mg PO BID #60 tabs 09/17/23 0 03/28/24 Rx release,12 hr benralizumab 30 mg/mL subcutaneous 30 mg subcut Q8W #1 mL 09/19/23 03/28/24 Rx auto-injector (Fasenra Pen) bupropion HCl (smoking deter) 150 150 mg PO BID #60 tabs 11/06/23 0 03/28/24 Rx mg tablet,12 hr sustained-release(smo usha deterrent) clopidogrel 75 mg tablet 75 mg PO DAILY #90 tabs 11/08/23 0 03/28/24 Rx amantadine HCl (bulk) ea miscellaneous 01/14/24 03/28/24 History ipratropium 0.5 mg-albuterol 3 mg ml inhalation 01/14/24 03/28/24 H istory (2.5 mg base)/3 mL nebulization soln prazosin 1 mg capsule 1 mg PO QHS #30 caps 02/19/2409/12 Rx sertraline 50 mg tablet 50 mg PO QDAY #30 tabs 02/19/24 Rx trazodone 100 mg tablet 100 mg PO QHS PRN insomnia #30 tab s 02/19/24 03/28/24 Rx prednisone 10 mg tablet 10 mg PO QDAY #30 tabs 02/29/24 Rx fluticasone furoate 200 1 inh inhalation Q24H #30 ea 03/1203/28/24 Rx mcg/actuation blister powder for inhalation (Arnuity Ellipta) umeclidinium 62.5 mcg-vilanterol 1 inh inhalation Q24H #60 ea 03/1203/28/24 Rx 25 mcg/actuation powdr for inhalation (Anoro Ellipta) Nurse's Note: no medication list, patient has no idea what he is taking [facility] Medical History Mild sleep apnea Chronic (more content not included)... Normal [facility] Stress Reporton 03-03-2024 Stress Report [facility] [address] [place] [address] MR#: [id number] Acct: [id number] Name: DONTAE PARRA Rep #: [id number] : 1975 48 From: Bria Olsen MD Primary Care: JEANNIE HERNANDEZ CORPORATE TRAVEL MANAGER-C Status: REG CLI Referring Dr: Elda Villegas NP CORPORATE TRAVEL MANAGER-C Sex: M C Stress Test Report Date: 02/26/2024 Procedure: Pharmacologic stress nuclear imaging study Indications: CAD Consent: Per the patient Procedure: The patient underwent pharmacologic (Regadenoson 0.4mg ) evaluation with a peak heart rate of 107 beats per minute (62%predicted maximal heart rate) and a peak blood pressure of 122/70 mmHg. The baseline ECG demonstrated sinus rhythm. The peak pharmacologic ECG demonstrated no ischemic changes. There were no cardiac dysrhythmias pretest, during pharmacologic infusion, or recovery. There was no complaint of chest discomfort during pharmacologic infusion or recovery. The patient was injected with 10.6 millicuries of technetium 99m Cardiolite and subsequently rest SPECT Cardiolite nuclear imaging was obtained in the horizontal long, vertical long, and short axis views. The patient underwent pharmacologic (Regadenoson) evaluation. The patient was injected with 36.0 millicuries of technetium 99m Cardiolite and subsequently stress SPECT Cardiolite nuclear imaging was obtained in the horizontal long, vertical long, and short axis views. A gated Cardiolite study at peak stress was obtained. The examination was stopped secondary to completion of protocol. Rest and stress SPECT Cardiolite nuclear imaging status post realignment, normalization, and attenuation correction demonstrate no fixed or reversible perfusion defects. There is end systolic thickening and brightening. The gated Cardiolite study demonstrates myocardial thickening and inward wall motion. The reported LVEF is 59%. Impression: 1. Pharmacologic (Regadenoson) evaluation 2. Peak pharmacologic ECG with no diagnostic ischemic changes. 3. There were no cardiac dysrhythmias pretest, during pharmacologic infusion, or recovery. 5. Rest and stress SPECT Cardiolite nuclear imaging demonstrate relative uniform tracer uptake and myocardial perfusion appearing within normal limits. 6. The gated Cardiolite study reports an LVEF of 59%. This note was generated with Interactivo dictation software. It may contain incorrect words, spelling, and punctuation that were not noted in checking the note before signing. 03/03/24 0900 Date Bria Olsen MD CC: JOEL Villegas; JEANNIE MALDONADO ELPIDIO Date Dictated: 03/03/2459 Date Transcribed: 03/03/24858 Equal Opportunity Officer: JAIRO Signed Normal [facility] Pulmonary Visit Reporton Pulmonary Visit Report [facility] Pulmonary Medicine of [address] [place] [address] OFFICE VISIT Date of Service: 02/29/24 MR#: [id number] Acct: [id number] Name: DELILAHDONTAE MARVA Rep #: [id number] : 1975 Provider: Delores Pablo NP Age/Sex: 48/M Location: [facility].PMW Status: Signed Assessment and Plan Assessment and Plan (1) COPD (chronic obstructive pulmonary disease): Status: Chronic Qualifiers: COPD type: emphysema Emphysema type: unspecified Qualified Code(s): J43.9 - Emphysema, unspecified Comment: Severe asthma overlap syndrome Plan: Resolution of pneumonia per PA/Lat chest xray. NIOX was not a helpful indicator today as patient was not able to adequately complete the test as there was liquid detected in the device. COPD exace rbation with bronchospasm present and will treat with prednisone. Unfortunately PFT continues to show significant reversibility with beta agonist. I have discussed this case with Dr. Alvarado today. [facility]. Patient has been given samples and instruction for use. He has been educated on oral care. (2) Nicotine dependence, cigarettes, uncomplicated: Status: Chronic Plan: reassess cessation on follow up. Patient is strongly encouraged to plan a quit date and he reports he is ready to proceed. Encourage complete smoking cessation, this is likely contributing to symptoms. Patient declined pharmacological therapy for support. (3) Chronic cough: Status: Chronic Plan: I'm concerned that the cough syncopal episodes are not improving and have recommended stricter control of GERD. GERD needs to be optimized as patient is taking PPI in the evening with other medications. He understands that this should be taken 30 min prior to breakfast on an empty stomach. He has an increased vasovagal response which he is following with cardiology. Allergic rhinitis is not active. I will consider BRIAN and sputum for fungus on follow up, aspergillus has been negative and P-ANCA negative as well. On follow up I will consider repeating CT scan. Differential diagnosis includes tracheobronchomalacia , further testing may include bronchoscopy. (4) Eosinophilia: Status: Acute Qualifiers: Eosinophilia type: unspecified eosinophilia Qualified Code(s): D72.10 - Eosinophilia, unspecified Comment: Total eosinophil count 255.2 Plan: Fasenra has helped improve cough noticed by others, at this point I recommend that he continue with this regimen and will reassess on follow up. (5) Mild sleep apnea: Status: Chronic Comment: AHI of 8.6 with 20 during REM sleep and 16 during supine sleep. Plan: The patient understands that use of supplement oxygen alone does not adequately treat sleep apnea. For now, he has chosen to use 2.5 L of supplemental oxygen at night. This will improve his baseline saturation, as recent nocturnal oximetry was completed on room air. Orders: Orders NIOX 02/29/24 J43.9 - Emphysema, unspecified Medications: New fluticasone-umeclidin -vilanter 200-62.5-25 mcg (Trelegy Ellipta) 1 inh inhalation Q24H 60 ea 5RF J43.9 - Emphysema, unspecified prednisone take 4 tabs for three days, then 3 tabs for three days, then 2 tabs for three days, then 1 tab for 3 days 10 mg PO QDAY 30 tabs 0RF J43.9 - Emphysema, unspecified fluticasone-umeclidin -vilanter 200-62.5-25 mcg (Trelegy Ellipta) 1 inh inhalation Q24H 60 ea 5RF J43.9 - Emphysema, unspecified Discontinued fxafwkhfeh-gycsuswv-n ormoterol 160-9-4.8 mcg/actuation (Breztri Aerosphere) Discontinued Reason: Order Changed inhalation Plan Details Follow Up: 6 Weeks (LMR) HPI HPI Comments Details: This 48-year-old male patient presents to the office today for follow-up to discuss results of recent testing with a history of COPD. He is ambulatory and currently on room air. He has not needed prednisone or antibiotics since last follow up but reports that his respiratory symptoms have worsened since last evaluation. He has had worsening shortness of breath and cough. He has not been feeling well, his mom recently . He reports constant SOB, frequent wheezing, frequent dry and moist cough with thick yellow sputum no foul taste or smell. He reports having coughing fits with emesis. He indicates that with emesis he has significant sputum first and then particles. He has frequent CP and tightness, for which he is following with cardiology and reports a recent stress test. He is awaiting results. He has frequent headache. He denies sinus congestion. Cold air is a known trigger that worsens both shortness of breath and cough. He is experiencing left mid lumbar thoracic back pain for which he is following with [facility] for plan and management. He reports occasional chest tightness and wheezing. Albuterol does improve his symptoms. (more content not included)... [facility] Chest PA and Lateralon 02-18 Chest PA and Lateral [facility] Imaging Services [address] [place], [place] [id number] Chest PA and Lateral MR#: [id number] Acct: [id number] Name: DONTAE PARRA Rep #: [id number] : 1975 M 48 From: Michelle Mercer MD PCP: JEANNIE HERNANDEZ CORPORATE TRAVEL MANAGERGustavo Status: REG CLI Study: Chest PA and Lateral Date of Exam: 02/19/24 Exam# [id number] Ordering Dr: Delores Pablo [id number] STUDY: X-RAY CHEST REASON FOR EXAM: Male, 48 years old. shortness of breath, history of COPD and asthma TECHNIQUE: PA and lateral views of the chest. COMPARISON: None. FINDINGS: The lungs are clear and expanded. There is no demonstrated pleural abnormality. Normal size heart. Normal mediastinum and shorty. Normal visualized pulmonary arteries. Normal visualized aortic arch and descending thoracic aorta. Normal visualized thoracic spine. Normal visualized ribs, clavicles, and shoulders. There is no demonstrated abnormality of the visualized soft tissue structures of the upper abdomen. RAD/Chest PA and Lateral IMPRESSION: Normal x-ray examination of the chest. Electronically Signed: Michelle Mercer MD at 23:55 EST , CC: JEANNIE NIXONLER; Delores Pablo NP Equal Opportunity Officer: Signed [facility] MR/BMS.BPon 02-19-2024 MR/BMS.BP [facility], [address] [place] [id number] OFFICE VISIT Date of Service: 02/19/24 MR#: [id number] Acct: [id number] Name: DONTAE PARRA Rep #: [id number] : 1975 Provider: JOEL naranjo Age/Sex: 48/M Location: [facility]. Status: Signed Intake Vital Signs 01/08/24 14:09 01/14/24 09:29 02/19/24 12:49 Height 6 ft 6 ft 6 ft Weight: 226 lb 226 lb BMI 30.6 30.6 BP 153/83 H 125/81 H 114/74 Blood Pressure Location Rt brachial Lt brachial Lt brachial Position Sitting Sitting Sitting Respiration 16 18 16 Pulse 80 83 98 Pulse Source Monitor Monitor Monitor Temp 98.0 F Temperature Source Temporal Artery Pulse Oximetry (%) 97 Oxygen Delivery Method room air BP Intake Visit Reasons: 6wfu Accompanied by: Self Allergies isosorbide Allergy (Severe, Verified 02/19/24 12:55) Severe headaches amlodipine Adverse Reaction (Intermediate, Verified 02/19/24 12:55) Severe headache Medications ???Medication ???Instructions ???Recorded ???Confirmed ???Type albuterol sulfate 2.5 mg/3 mL 2.5 mg inhalation Q4H PRN 05/22/22 02/19/24 History (0.083 %) solution for nebulization shortness of breath or wheezing albuterol sulfate 90 mcg/actuation 2 puff inhalation Q4H PRN 05/22/22 02/19/24 History aerosol inhaler shortness of breath or wheezing aspirin 81 mg tablet,delayed 81 mg PO DAILY 05/22/22 02/19/24 History release magnesium oxide 250 mg PO DAILY 05/22/22 02/19/24 History omeprazole 40 mg capsule,delayed 40 mg PO DAILY 05/22/22 02/19/24 History release rosuvastatin 10 mg tablet 10 mg PO DAILY 05/22/22 02/19/24 History carvedilol phosphate 20 mg 20 mg PO DAILY 06/15/22 02/19/24 History capsule,ext.[id number] hr multiphase montelukast 10 mg tablet 10 mg PO QPM #90 tabs 01/08/23 02/19/24 Rx budesonide 0.5 mg/2 mL suspension 0.5 mg inhalation 01/24/23 02/19/24 History for nebulization potassium chloride 20 mEq 20 meq PO DAILY 01/24/23 02/19/24 History tablet,extended release(part/cryst) hydrochlorothiazide 25 mg tablet 25 mg PO DAILY #30 tabs 05/25/23 02/19/24 Rx nitroglycerin 0.4 mg sublingual 0.4 mg sublingual Q5-15M 09/17/23 02/19/24 History tablet ranolazine 500 mg tablet,extended 500 mg PO BID #60 tabs 09/17/23 02/19/24 Rx release,12 hr benralizumab 30 mg/mL subcutaneous 30 mg subcut Q8W #1 mL 09/19/23 02/19/24 Rx auto-injector (Fasenra Pen) bupropion HCl (smoking deter) 150 150 mg PO BID #60 tabs 11/06/23 02/19/24 Rx mg tablet,12 hr sustained-release(smo usha deterrent) clopidogrel 75 mg tablet 75 mg PO DAILY #90 tabs 11/08/23 02/19/24 Rx amantadine HCl (bulk) ea miscellaneous 01/14/24 02/19/24 History budesonide 160 mcg-glycopyr 9 inh inhalation 01/14/24 02/19/24 History mcg-formot 4.8 mcg/actuation HFA inhaler (Breztri Aerosphere) ipratropium 0.5 mg-albuterol 3 mg ml inhalation 01/14/24 02/19/24 History (2.5 mg base)/3 mL nebulization soln isosorbide mononitrate 30 mg 30 mg PO QDAY 01/14/24 02/19/24 History tablet,extended release 24 hr prazosin 1 mg capsule 1 mg PO QHS #30 caps 02/19/24 02/19/24 Rx sertraline 50 mg tablet 50 mg PO QDAY #30 tabs 02/19/24 02/19/24 Rx trazodone 100 mg tablet 100 mg PO QHS PRN insomnia #30 tabs 02/19/24 02/19/24 Rx PFSH Medical History Mild sleep apnea Chronic cough Nicotine dependence Family history of ischemic heart disease and other diseases of the circulatory system Presence of stent in coronary artery ( 02/01/22) Old myocardial infarction Primary snoring Nicotine addiction Hemoptysis Nicotine dependence, cigarettes, uncomplicated Abdominal distension (gaseous) Unspecified systolic (congestive) heart failure Hyperlipidemia Atherosclerosis of coronary artery of [place] heart without angina pectoris Chest pain Noncompliance with medications Essential hypertension Stroke Pneumonia GERD (gastroesophageal reflux disease) COPD (chronic obstructive pulmonary disease) Depression Anxiety Asthma Emphysema, unspecified CAD (coronary artery disease) 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 Heart disease Myocardial infarction Grandfather Cancer Lung Fibromyalgia Father Cancer Social History Smoking Status: Current every day smoker tobacc (more content not included)... Normal [facility] Urine Drug Screen (VISTA)on 01-21-2024 AMPHETAMINES Negative Normal <1000 ng/mL [facility] Comment on above: Order Comment: MEDTO X Performed By: #### L 505.5000 #### [facility] [address] [facility] [address] BARBITIURATES Negative Normal < 200 ng/mL [facility] Comment on above: Order Comment: MEDTO X Performed By: #### L 505.5000 #### [facility] [address] [facility] [address] BENZODIAZIPINE Negative Normal < 200 ng/mL [facility] Comment on above: Order Comment: MEDTO X Performed By: #### L 505.5000 #### [facility] [address] [facility] [address] COCAINE Negative Normal < 300 ng/mL [facility] Comment on above: Order Comment: MEDTO X Performed By: #### L 505.5000 #### [facility] [address] [facility] [address] ECSTACY Negative Normal < 500 ng/mL [facility] Comment on above: Order Comment: MEDTO X Performed By: #### L 505.5000 #### [facility] [address] [facility] [address] METHADONE Negative Normal < 300 ng/mL [facility] Comment on above: Order Comment: MEDTO X Performed By: #### L 505.5000 #### [facility] [address] [place], [address] OPIATES Negative Normal < 300 ng/mL [facility] Comment on above: Order Comment: MEDTO X Performed By: #### L 505.5000 #### [facility] [address] [place], [address] PCP Negative Normal < 25 ng/mL [facility] Comment on above: Order Comment: MEDTO X Performed By: #### L 505.5000 #### [facility] [address] [place], [address] THC Negative Normal < 50 ng/mL [facility] Comment on above: Order Comment: MEDTO X Performed By: #### L 505.5000 #### [facility] [address] [place], [address] VISTA UDS PH 5 Normal [facility] Comment on above: Order Comment: MEDTO X Performed By: #### L 505.5000 #### [facility] [address] [place], [address] Pulmonary Visit Reporton Pulmonary Visit Report [facility] Pulmonary Medicine of [address] [place] [address] OFFICE VISIT Date of Service: 01/14/24 MR#: [id number] Acct: [id number] Name: DONTAE PARRA Rep #: [id number] : 1975 Provider: Delores Pablo NP Age/Sex: 48/M [facility] Status: Signed Assessment and Plan Assessment and Plan (1) COPD (chronic obstructive pulmonary disease): Status: Chronic Qualifiers: COPD type: emphysema Emphysema type: unspecified Qualified Code(s): J43.9 - Emphysema, unspecified Comment: Severe asthma overlap syndrome Plan: Follow up PA and Lat chest xray to determine if pneumonia has resolved and to continue to evaluate for etiologies that would produce dyspnea. Jade PA/Lat xray to be pushed to [facility]. I did follow-up with Elda Villegas, Cardiology JEWELRY FACER who is planning to discuss a stress test with the patient. Continue with use of Breztri 2 inhalations twice daily. Continue with use of Fasenra. PFT on follow-up in 6 weeks. (2) Nicotine dependence, cigarettes, uncomplicated: Status: Chronic Plan: Encourage complete smoking cessation, this is likely contributing to symptoms. Patient decline pharmacological therapy for support. Patient understands the importance of smoking cessation. 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 I will consider BRIAN and sputum for fungus on follow up, pending PFT. Patient declined sputum culture today stating, that was already done. Sputum culture from 09/2022 showed 4+ gram positive cocci. Patient was recently on doxycycline which would cover gram positive cocci. (4) Eosinophilia: Status: Acute Qualifiers: Eosinophilia type: unspecified eosinophilia Qualified Code(s): D72.10 - Eosinophilia, unspecified Comment: Total eosinophil count 255.2 Plan: Fasenra has helped improve cough, await PFT and reassess in 6 weeks or less. Patient was offered prednisone taper today but has declined because I need to wait until it gets colder because my symptoms worsen then. (5) Mild sleep apnea: Status: Chronic Comment: AHI of 8.6 with 20 during REM sleep and 16 during supine sleep. Plan: Nocturnal oximetry on follow-up. He is encouraged to increase use of PAP therapy. Obtain compliance download for follow-up. Orders: Orders Influenza Immunization Today J43.9 - Emphysema, unspecified, J45.909 - Unspecified asthma, uncomplicated NIOX Today J43.9 - Emphysema, unspecified Pulmonary Function Test (Comp) 02/04/24 J43.9 - Emphysema, unspecified Chest PA and Lateral Today R06.09 - Other forms of dyspnea HPI HPI Comments Details: This patient presents to the office today for follow-up of his COPD. He is ambulatory and currently on room air. He was seen by PCP office on December 19, 2023 for sinusitis and was given doxycycline and Mucinex and a PA and lateral chest x-ray was ordered. Medrol Dosepak was available to the patient (by orthopedist) and he did utilize this. He tested negative for COVID. The patient indicated that the PA and lateral chest x-ray showed early signs of pneumonia. He reports that he is now back to his baseline. He continues with use of Breztri, 2 puffs twice daily. He does report rinsing his mouth out after each use. He denies any medication side effect such as sore throat or thrush. He is also compliant with Singulair daily. He is using albuterol rescue inhaler 3-4 times throughout the day, he does use a nebulizer with budesonide and albuterol as well. He reports use of budesonide nebulized 2-3 times per day. At last visit he was started on Fasenra and reports that this has been tolerated without side effect. He has had no injection site reaction. His last dose of Fasenra was December 06, and he will be due for the next dose January 31. He continues to experience a cough although using Fasenra has reduced the cough, specifically noticed by his family. Cold air is a known trigger that worsens both shortness of breath and cough. He continues to have shortness of breath with exertion. He is experiencing left mid lumbar thoracic back pain for which he is following with [facility] for plan and management. He reports an MRI was obtained this morning. The cough occurs several times throughout the day. Sometimes it is so severe it causes him to gag and at times even vomit, which he indicates occurred with last PFT. He reports that the cough is productive with clear to yellow sputum. He reports occasional sharp chest pain which is why I am on my heart medication -patient reports. He indicates that this is at baseline and has not worsened. He reports occasional chest tightness and wheezing. Albuterol does improve his symptoms. He denies any fever, chills or body aches. He reports that his symptoms are so problematic that it causes him difficulty in being able to b (more content not included)... Normal [facility] MR/BMS.BPon 01-08-2024 MR/BMS.BP [facility] [facility], [address] [place] [address] OFFICE VISIT Date of Service: 01/08/24 MR#: [id number] Acct: [id number] Name: DONTAE PARRA Rep #: [id number] : 1975 Provider: JOEL naranjo Age/Sex: 48/M Location: [facility].BP Status: Signed Intake Vital Signs 11/06/23 09:59 01/08/24 14:09 Height 6 ft 6 ft Weight: 226 lb 226 lb BMI 30.6 30.6 BP 129/79 H 153/83 H Blood Pressure Location Rt brachial Rt brachial Position Sitting Sitting Respiration 16 Pulse 77 80 Pulse Source Monitor Monitor Pulse Oximetry (%) 98 Oxygen Delivery Method room air BP Intake Visit Reasons: follow up Accompanied by: Self Allergies isosorbide Allergy (Severe, Verified 01/08/24 14:11) Severe headaches amlodipine Adverse Reaction (Intermediate, Verified 01/08/24 14:11) Severe headache Medications ???Medication ???Instructions ???Recorded ???Confirmed ???Type albuterol sulfate 2.5 mg/3 mL 2.5 mg inhalation Q4H PRN 05/22/22 01/08/24 History (0.083 %) solution for nebulization shortness of breath or wheezing albuterol sulfate 90 mcg/actuation 2 puff inhalation Q4H PRN 05/22/22 01/08/24 History aerosol inhaler shortness of breath or wheezing aspirin 81 mg tablet,delayed 81 mg PO DAILY 05/22/22 01/08/24 History release magnesium oxide 250 mg PO DAILY 05/22/22 01/08/24 History omeprazole 40 mg capsule,delayed 40 mg PO DAILY 05/22/22 01/08/24 History release rosuvastatin 10 mg tablet 10 mg PO DAILY 05/22/22 01/08/24 History carvedilol phosphate 20 mg 20 mg PO DAILY 06/15/22 01/08/24 History capsule,ext.[id number] hr multiphase montelukast 10 mg tablet 10 mg PO QPM #90 tabs 01/08/23 01/08/24 Rx budesonide 0.5 mg/2 mL suspension 0.5 mg inhalation 01/24/23 01/08/24 History for nebulization potassium chloride 20 mEq 20 meq PO DAILY 01/24/23 01/08/24 History tablet,extended release(part/cryst) hydrochlorothiazide 25 mg tablet 25 mg PO DAILY #30 tabs 05/25/23 01/08/24 Rx nitroglycerin 0.4 mg sublingual 0.4 mg sublingual Q5-15M 09/17/23 01/08/24 History tablet ranolazine 500 mg tablet,extended 500 mg PO BID #60 tabs 09/17/23 01/08/24 Rx release,12 hr benralizumab 30 mg/mL subcutaneous 30 mg subcut Q8W #1 mL 09/19/23 01/08/24 Rx auto-injector (Fasenra Pen) bupropion HCl (smoking deter) 150 150 mg PO BID #60 tabs 11/06/23 01/08/24 Rx mg tablet,12 hr sustained-release(smo usha deterrent) clopidogrel 75 mg tablet 75 mg PO DAILY #90 tabs 11/08/23 01/08/24 Rx prazosin 1 mg capsule 1 mg PO QHS #30 caps 01/08/24 01/08/24 Rx sertraline 50 mg tablet 50 mg PO QDAY #30 tabs 01/08/24 01/08/24 Rx trazodone 100 mg tablet 100 mg PO QHS PRN insomnia #30 tabs 01/08/24 01/08/24 Rx PFSH Medical History Mild sleep apnea Chronic cough Nicotine dependence Family history of ischemic heart disease and other diseases of the circulatory system Presence of stent in coronary artery ( 02/01/22) Old myocardial infarction Primary snoring Nicotine addiction Hemoptysis Nicotine dependence, cigarettes, uncomplicated Abdominal distension (gaseous) Unspecified systolic (congestive) heart failure Hyperlipidemia Atherosclerosis of coronary artery of [place] heart without angina pectoris Chest pain Noncompliance with medications Essential hypertension Stroke Pneumonia GERD (gastroesophageal reflux disease) COPD (chronic obstructive pulmonary disease) Depression Anxiety Asthma Emphysema, unspecified CAD (coronary artery disease) 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 Heart disease Myocardial infarction Grandfather Cancer Lung Fibromyalgia Father Cancer Social History Smoking Status: Current every day smoker tobacco type: cigarettes alcohol intake: never substance use type: does not use caffeine: Yes Type: coffee Number of servings: 3 HPI History of Present Illness History provided by: patient HPI: Dontae Parra is a 48 year old male patient presenting today for a follow up evaluation. Patient reports he is doing well but feels tired. Does feel more tired in the winter months. 3-4 hours per night on a good night. Does struggle more often to fall asleep than to stay asleep. Does not feel like he has energy. Does report a lack of motivation. Admits to fe (more content not included)... Normal [facility] XR CHEST 2 VIEWSon 4 XR CHEST 2 VIEWS ORIGINAL EXAMINATION: TWO XRAY VIEWS OF THE CHEST12/19/2023 5:04 pm CHEST AP/PA and LATERAL EXAM DESCRIPTION: COMPARISON: CTA chest, March 03, 2021 HISTORY: ORDERING SYSTEM PROVIDED HISTORY: Reason for Exam: Cough, chills FINDINGS: PA and lateral radiographs of the chest were obtained. The lungs are clear without evidence of focal consolidation, mass, pleural effusion, or pneumothorax. The cardiomediastinal silhouette is unremarkable. The bones and soft tissues are unremarkable. IMPRESSION: No acute cardiopulmonary disease. Interpreted by: Mumtaz Wise MD Preliminary Report By: Mumtaz Wise MD Electronically signed By Mumtaz Wise MD Dictated Date: 12/19/2023 5:22:00 PM Prelim Date: 12/19/2023 5:22:25 PM Sign Date: 12/19/2023 5:22:25 PM Ordering Provider: LAURA WARREN [facility] FACILITY CODING SUMMARYon FACILITY CODING SUMMARY Facility Coding Facility Coding Summary [address] [address] [id number] 11/30/2023 Patient: DONTAE PARRA Sex: Male : 1975 Age: 48y Providers: Mumtaz Holley D.O. DIAGNOSTIC WORKUP Chief Complaint BACK INJURY. -- Mumtaz Holley D.O. Fell out of a tree stand approximately 15 ft. Struck the right side of his head. Questionable loss of consciousness. Does complain of thoracic and lumbar region back pain. -- Mumtaz Holley D.O. Principal Diagnosis Acute traumatic thoracic back pain. -- Mumtaz Holley D.O. Fall from tree. -- Mumtaz Holley D.O. ICD-10 Codes M54.6: Pain in thoracic spine M54.9: Dorsalgia, unspecified W14.xxxA: Fall from tree, initial encounter PROCEDURES Procedures from Providers: EKG (Insufficient documentation to return CPT code.) -- Mumtaz Holley D.O. Procedures from Nurses/Facility: Blood Draw (CPT: 74198) 1 of 2 Facility Coding IV Hydration (CPT: 24251 X3) IV Push MORPHine IVP (CPT: 88914) IV Push Zofran IVP (CPT: 72374) IV Push Zofran IVP (CPT: 65317) IV Push Dilaudid IVP (CPT: 16842) IV Infusion CeFAZolin IVPB 1g/50ml PREMIX (CPT: 98534) SUPPLIES [facility] 66591-29 This is a partial abstract of information documented in the full record. Inside Sales Territory Manager must use independent judgment in selecting codes. CPT copyright 2022 [employer]. All Rights Reserved. 2 of 2 Normal [facility] MED ADMINISTRATION DETAILon 12-06-2023 MED ADMINISTRATION DETAIL [facility] Medication Administration Record [address] [address] [id number] 11/30/2023 Patient: DONTAE PARRA Sex: Male : 1975 Age: 48y MEASUREMENTS: Wt: 98.9 kg, Ht/Sae: 72.0 in, BMI: 29.57 ALLERGIES: isosorbide Medication Ordered Medication Administration Date/Time IV NS 0.9 % 1000 21:11/29 IV NS 0.9 % 1000 mL started in bag#1 1000 mL at Started mL (NOW x1) 999 mL/hr via Site# 1. Allergies verified and confirmed 5 rights. IV 21:11/30/2023 patency established. IV site checked: no pain, redness, or swelling. Lucas Escalante R.N. IV flushed thoroughly pre-medication administration. Information Stopped reviewed with patient. - 21:20 Suzanne AdamsNGabino 00:51 12/01/2023 Lucas Escalante R.NGabino 00:51 11/30 Medication Discontinued: bag #1 completed upon Scanned transfer. Total amount infused: 1000 mL. IV patency established. IV site checked: no pain, redness, or swelling. IV flushed thoroughly post-medication administration. - 01:16 Lucas Escalante R.Carson. CeFAZolin IVPB 21:22 10 CeFAZolin IVPB 1g/50ml PREMIX 1 g started at 100 Started 1g/50ml PREMIX 1 g mL/hr via Site# 1. Allergies verified and confirmed 5 rights. IV 21:22 11/30/2023 at 100 mL/hr (NOW patency established. IV site checked: no pain, redness, or swelling. Lucas Escalante R.N. x1) IV flushed thoroughly pre-medication administration. Information Stopped reviewed with patient. - 21:22 Lucas Escalante R.N. 21:56 11/30/2023 Lucas Escalante R.NGabino 21:56 11/29 Medication Discontinued: IV completed. Total amount Scanned infused: 50 mL. IV patency established. IV site checked: no pain, redness, or swelling. IV flushed thoroughly post-medication administration. - 22:12 Lucas Escalante R.N. 1 of 2 [place] [facility] Medication Ordered Medication Administration Date/Time Dilaudid IVP 1 mg 21:16 11/29 Dilaudid IVP 1 mg given via Site# 1. Confirmed 5 Given (NOW x1) rights. IV patency established. IV site checked: no pain, redness, or 21:16 11/30/2023 swelling. IV flushed thoroughly pre-medication administration. IVP Lucas Escalante R.NGabino given by nurse. Information reviewed with patient. - 21:17 Lucas Escalante R.Andre 21:57 11/29 Medication Response: Pain is improving. - 01:17 Lucas Escalante RKarlene Zofran IVP 4 mg 21:17 11/29 Zofran IVP 4 mg given via Site# 1. Allergies verified Given (NOW x1) and confirmed 5 rights. IV patency established. IV site checked: no 21:17 11/30/2023 pain, redness, or swelling. IV flushed thoroughly pre-medication Lucas Ava, R.N. administration. IVP given by nurse. Information reviewed with Scanned patient. - 21:17 Lucas Ava, R.N. MORPHine IVP 4 01:06 11/30 MORPHine IVP 4 mg given via Site# 1. Allergies Given mg (NOW x1, HIGH verified and confirmed 5 rights. IV patency established. IV site 01:06 12/01/2023 ALERT checked: no pain, redness, or swelling. IV flushed thoroughly Lucas Ava, R.N. MEDICATION) pre-medication administration. IVP given by nurse. Information Scanned reviewed with patient including sedative warning. - 01:08 Lucas Ava, R.N. Zofran IVP 4 mg 01:04 11/30 Zofran IVP 4 mg given via Site# 1. Allergies verified Given (NOW x1) and confirmed 5 rights. IV patency established. IV site checked: no 01:04 12/01/2023 pain, redness, or swelling. IV flushed thoroughly pre-medication Lucas Ava, R.N. administration. Information reviewed with patient. - 01:06 Lucas Scanned Ava, R.N. 2 of 2 Normal [facility] NURSES CLINICAL REPORT (NOTE S)on 12-06-2023 NURSES CLINICAL REPORT (NOTES) Nurse Narrative Nurse Clinical [address] [address] [id number] 11/30/2023 Patient: DONTAE PARRA Sex: Male : 1975 Age: 48y Disposition: Transfer to [facility] Disposition Decision Time: 00:02 12/01/2023 Departure Time: 01:25 12/01/2023 TRIAGE Measurements: 19:43 11/30/23 Wt: 98.9 kg, Ht/Sae: 72.0 in, BMI: 29.57 -- 19:43 11/30/23 EDT Lexii Huffman R.N. 19:39 11/30/23. Site #1 started prior to arrival by EMS via IV in the left antecubital space with an 18g angiocath; 1 attempt. Saline lock flushed with 5 mL saline. -- 19:39 11/30/23 JIM Huffman R.N. Medications: albuterol sulfate 90 mcg/actuation breath activated powder inhaler: as needed. -- 19:56 11/30/23 JIM Huffman R.N. Breztri Aerosphere 160 mcg-9mcg-4.8mcg/actua tion HFA aerosol inhaler: as needed. -- 19:56 11/30/23 JIM Huffman R.N. Fasenra Pen 30 mg/mL subcutaneous auto-injector: 30 mg weekly . -- 19:58 11/30/23 JIM Huffman R.N. nitroglycerin 0.4 mg sublingual tablet: as needed. -- 19:59 11/30/23 JIM Huffman R.N. traZODone 50 mg tablet: at bedtime . -- 19:59 11/30/23 JIM Huffman R.N. prazosin 1 mg capsule: once a day . -- 19:59 11/30/23 JIM Huffman R.N. montelukast 10 mg tablet: once a day . -- 20:00 11/30/23 JIM Huffman R.N. ranolazine ER 500 mg tablet,extended release,12 hr: 500 mg twice a day . -- 20:01 11/30/23 JIM Huffman R.N. potassium chloride 20 mEq oral packet: once a day . -- 20:01 11/30/23 JIM Huffman R.N. 1 of 6 Nurse Narrative hydroCHLOROthiazide 25 mg tablet: once a day . -- 20:02 11/30/23 JIM Huffman R.N. buPROPion HCL XL 150 mg 24 hr tablet, extended release: once a day . -- 20:02 11/30/23 JIM Huffman R.N. omeprazole 40 mg capsule,delayed release: once a day . -- 20:03 11/30/23 JIM Huffman R.N. clopidogreL 75 mg tablet: once a day . -- 20:03 11/30/23 JIM Huffman R.N. carvediloL 25 mg tablet: once a day . -- 20:03 11/30/23 EDT Lexii Huffman R.N. rosuvastatin 10 mg tablet: at bedtime . -- 20:04 11/30/23 EDT Lexii Huffman R.N. aspirin 81 mg capsule: once a day . -- 20:04 11/30/23 WAYNET Lexii Huffman R.N. Allergies: isosorbide -- 19:40 11/30/23 WAYNET Lexii Huffman R.N. Problems: Hypertension -- 19:40 11/30/23 WAYNET Lexii Huffman R.N. CVA - Cerebrovascular Accident -- 19:40 11/30/23 EDT Lexii Huffman R.N. Myocardial Infarction -- 19:41 11/30/23 EDT Lexii Huffman R.N. Asthma -- 19:55 11/30/23 WAYNET Lexii Huffman R.N. COPD - Chronic Obstructive Pulmonary Disease -- 19:55 11/30/23 EDT Lexii Huffman R.N. 19:36 11/30/23. Preferred pharmacy: [facility] -- 19:48 11/30/23 EDT Lexii Huffman R.N. ADDITIONAL SURGERIES: Cardiac Procedures -- 19:41 11/30/23 WAYNET Lexii Huffman R.N. Major Trauma History Arrived by EMS. Historian: patient. Acuity: LEVEL 2. 19:36 11/30/23. Triage time: 19:36 11/30/2023. Mechanism of injury: Fell: (from tree stand approx 17-15 feet). Occurred 18:30 11/30/2023. Patient is on anticoagulation (blood thinner) therapy: includes plavix. EMS Treatment CUSTOMER ASSOCIATE: 2 of 6 Nurse Narrative EMS report reviewed. See report. SOCIAL HX: History of tobacco use (02/20). No alcohol use or drug use. The patient has not traveled outside the [place] ABUSE ASSESSMENT: The patient answered yes to the question(s) Do you feel safe in your home? and no to the question(s) Are you afraid to go home?. Identification band and allergy band on patient. SELF HARM ASSESSMENT: Self harm assessment was performed. The patient answered no to the question(s) Have you recently felt down, depressed, or hopeless? and Do you have thoughts of harming or killing yourself?. FALL RISK ASSESSMENT: Fall risk assessment completed. Risk factors identified include severe pain. -- 19:48 11/30/23 EDT Lexii Huffman R.N. 19:49 11/30/23. SOCIAL HX: Current every day heavy tobacco smoker (cigarette)- 1-2 packs per day. The patient has not traveled outside the [place] Infectious disease exposure: No infectious disease exposure. -- 19:49 11/30/23 EDT Lexii Huffman R.N. Primary Survey: 19:36 11/30/23. Alert. No acute distress. ( pt fell approx 15-17ft from tree stand. pt did have loc. struck head, pt takes multiple blood thinners. unable to provide medication information on arrival). Airway patent. Breathing spontaneous. Pulses present. Skin color within normal limits and warm and dry to touch. Minimal external bleeding present. C-spine immobolized. Hard c-collar placed on arrival. Severe vertebral pain in mid C-spine. Patient alert. SEPSIS SCREEN: NEGATIVE. SIRS criteria negative. No possible sources of infection. -- 19:48 11/30/23 EDT Lexii Huffman R.N. 19:42 11/30/23. BP: 145/78 MAP: 100. HR: 92. RR: 18. O2 saturation: 96% Temperature: 98 F. Pain leve (more content not included)... Normal [facility] ORDER SHEET (CPOE ONLY)on ORDER SHEET (CPOE ONLY) Order Sheet Order Sheet [address] [address] [id number] 11/30/2023 Patient: DONTAE PARRA Sex: Male : 1975 Age: 48y MEASUREMENTS: Wt: 98.9 kg, Ht/Sae: 72.0 in, BMI: 29.57 ALLERGIES: isosorbide MEDICATION/IV/DRIP/FL UID ORDERS Order Description Priority Entered Acknowledged Completed IV NS 0.9 %1000 mL (NOW x1) 20:23 11/30/2023 20:57 21:20 Mumtaz Holley D.O. 11/30/2023 11/30/2023 Daija Adams, R.N. CeFAZolin IVPB 1g/50ml 20:23 11/30/2023 20:57 21:22 PREMIX1 g at 100 mL/hr (NOW Mumtaz Holley D.O. 11/30/2023 11/30/2023 x1) Daija Adams RGabinoN. Tdap IM DIPTH/TETANUS/PERT 20:25 11/30/2023 Cancelled: Treatment not > 7yr and older0.5 mL (NOW x1) Mumtaz Holley D.O. Indicated, pt UTD on Tdap 21:22 EDT Lucas Escalante R.N. Dilaudid IVP1 mg (NOW x1) 20:40 11/30/2023 20:57 21:17 Mumtaz Holley D.O. 11/30/2023 11/30/2023 Daija Adams R.N. Zofran IVP4 mg (NOW x1) 20:40 11/30/2023 20:57 21:17 Mumtaz Holley D.O. 11/30/2023 11/30/2023 Daija Adams, R.N. 1 of 4 Order Sheet Reason for ordering with alerts: Clinical consideration given --20:40 11/30/2023 Mumtaz Holley D.O. MORPHine IVP4 mg (NOW x1, 01:02 12/01/2023 01:02 01:08 HIGH ALERT MEDICATION) Mumtaz Holley D.O. 12/01/2023 12/01/2023 Daija Adams, R.N. Reason for ordering with alerts: Clinical consideration given --01:02 12/01/2023 Mumtaz Holley D.O. Zofran IVP4 mg (NOW x1) 01:02 12/01/2023 01:02 01:06 Mumtaz Holley D.O. 12/01/2023 12/01/2023 Daija Adams, R.N. Reason for ordering with alerts: Clinical consideration given --01:02 12/01/2023 Mumtaz Holley D.O. LAB ORDERS Order Description Priority Entered Acknowledged Collected Completed CBC w Diff Stat Stat 20:23 11/30/2023 20:47 11/30/2023 21:18 11/30/2023 Paul Lopez R.N. Seth Lapp R.NGabino CMP Stat Stat 20:23 11/30/2023 20:47 11/30/2023 21:18 11/30/2023 Paul Lopez R.N. Seth Lapp R.NGabino Urinalysis Stat Stat 20:23 11/30/2023 Cancelled: Unable to Collect Mumtaz Holley D.O. 01:14 EDT Lucas Escalante R.N. Lipase Stat Stat 20:23 11/30/2023 20:47 11/30/2023 21:18 11/30/2023 Paul Lopez R.N. Seth Lapp R.N. Troponin-I (Sched: q3h Stat 20:25 11/30/2023 20:47 11/30/2023 21:19 11/30/2023 X2); Stat 1 of 2 Paul Lopez R.N. Seth Lapp R.NGabino Troponin-I (Sched: q3h Stat 20:25 11/30/2023 20:47 11/30/2023 00:44 12/01/2023 X2); Stat 2 of 2 Paul Lopez R.N. Seth Lapp, R.NGabino 2 of 4 Order Sheet DIAGNOSTIC STUDY ORDERS Order Description Priority Entered Acknowledged Completed CT Brain wo IV Cont Stat Stat 20:23 11/30/2023 20:47 21:19 Mumtaz Holley D.O. 11/30/2023 11/30/2023 Daija Adams, R.N. Reason for Study: Head Injury CT C-Spine wo IV Cont Stat Stat 20:23 11/30/2023 20:47 21:19 Mumtaz Holley D.O. 11/30/2023 11/30/2023 Lucas Escalante R.N. Lucas Whaleyp, R.N. Reason for Study: Trauma/Injury CT CAP w IV Cont Stat Stat 20:23 11/30/2023 20:47 21:19 Mumtaz Holley D.O. 11/30/2023 11/30/2023 Lucas Escalante, RGabinoN. Lucas Whaleyp, R.N. Reason for Study: Trauma/Injury STAFF ORDERS Order Description Priority Entered Acknowledged Collected Completed Pulse Oximeter 20:23 11/30/2023 20:47 11/30/2023 21:18 11/30/2023 Paul Lopez, R.N. Lucas Escalante, R.N. Timber Management Professor 20:23 11/30/2023 20:47 11/30/2023 21:18 11/30/2023 Paul Lopez, SuzanneN. Lucas Escalante, R.N. Oxygen in ER 20:23 11/30/2023 20:47 11/30/2023 21:19 11/30/2023 Paul Lopez, RGabinoN. Lucas Whaleyp, R.N. EKG 20:25 11/30/2023 20:47 11/30/2023 21:19 11/30/2023 Paul Lopez, RGabinoN. Lucas Whaleyp, R.N. 3 of 4 Order Sheet [Electronically signed by Mumtaz Holley D.O. (12/06/2023 21:04 EDT)] 4 of 4 Normal [facility] PHYS CLINICAL REPORT AND ADD ENon 12-06-2023 PHYS CLINICAL REPORT AND ADDEN Narrative Physician Clinical [address] [address] [id number] 11/30/2023 Patient: DONTAE PARRA Sex: Male : 1975 Age: 48y Disposition: Transfer to [facility] Disposition Decision Time: 00:02 12/01/2023 Departure Time: 01:25 12/01/2023 Measurements Wt: 98.9 kg, Ht/Sae: 72.0 in, BMI: 29.57 Initial Vital Sign Measured Time BP MAP HR RR O2Sat ETCO2 Temp Pain GCS RTS 19:42 11/30/2023 145/78 100 92 18 96% 98.0 F 8 Time Seen: 21:29 11/30/2023. Arrived- By ambulance. HISTORY OF PRESENT ILLNESS Chief Complaint: BACK INJURY. Fell out of a tree stand approximately 15 ft. Struck the right side of his head. Questionable loss of consciousness. Does complain of thoracic and lumbar region back pain. It is described as being severe and in the area of the lower thoracic spine and upper lumbar spine. The quality is noted to be sharp. Onset was just prior to arrival and it is still present. No bladder dysfunction, bowel dysfunction, sensory loss or motor loss. Patient also notes injury to the head and neck. Similar symptoms previously. None. Recent medical care: Not recently seen/assessed. Narrative REVIEW OF SYSTEMS CVS: The patient has had chest pain. : No difficulty with urination, urinary frequency or hematuria. CONSTITUTIONAL: No fever or chills. THROAT: No sore throat. RESPIRATORY: No cough. The patient has had difficulty breathing. NEUROLOGICAL: The patient has had a headache. PSYCHIATRIC: No depression. GI: The patient has had abdominal pain and nausea. No vomiting, diarrhea or black stools. PAST HISTORY Hypertension. Heart disease. Lung disease. Asthma COPD - Chronic Obstructive Pulmonary Disease CVA - Cerebrovascular Accident Hypertension Myocardial Infarction Surgeries: Cardiac Procedures Medications: albuterol sulfate 90 mcg/actuation breath activated powder inhaler: as needed. aspirin 81 mg capsule: once a day . Breztri Aerosphere 160 mcg-9mcg-4.8mcg/actua tion HFA aerosol inhaler: as needed. buPROPion HCL XL 150 mg 24 hr tablet, extended release: once a day . carvediloL 25 mg tablet: once a day . clopidogreL 75 mg tablet: once a day . Fasenra Pen 30 mg/mL subcutaneous auto-injector: 30 mg weekly . hydroCHLOROthiazide 25 mg tablet: once a day . montelukast 10 mg tablet: once a day . nitroglycerin 0.4 mg sublingual tablet: as needed. omeprazole 40 mg capsule,delayed release: once a day . potassium chloride 20 mEq oral packet: once a day . prazosin 1 mg capsule: once a day . ranolazine ER 500 mg tablet,extended release,12 hr: 500 mg twice a day . rosuvastatin 10 mg tablet: at bedtime . traZODone 50 mg tablet: at bedtime . 2 of 14 Narrative Allergies: isosorbide SOCIAL HISTORY Heavy tobacco smoker (cigarette)- less than 1 pack per day. No alcohol use or drug use. Is a local resident. Resides in a house. The patient lives with spouse. ADDITIONAL NOTES The nursing notes have been reviewed. PHYSICAL EXAM Appearance: Alert. Anxious. Appears to be in pain. Patient in moderate distress. Eyes: Pupils equal, round and reactive to light. ENT: Ears normal. Pharynx normal. (Skin avulsion/ abrasion approximately 1 cm in length noted to the right parietal scalp. Bleeding controlled. Palpably tender.). Neck: Normal inspection. Neck nontender. Painless ROM. CVS: Heart sounds normal. Pulses normal. Respiratory: No respiratory distress. Painless inspiration. Breath sounds normal. Abdomen: No visible injury. Soft and nontender. Bowel sounds normal. No organomegaly. Femoral pulses equal. Back: Vertebral point tenderness. Soft tissue tenderness. Limited ROM in the back. Skin: Skin warm and dry. Normal skin color. Extremities: Extremities exhibit normal ROM. Extremities nontender. Neuro: Oriented X 3. Mood/affect normal. No motor deficit. No sensory deficit. LABS, X-RAYS, AND EKG 12-LEAD EKG: EKG time: 21:25 11/30/2023. No acute ischemia. Normal EKG. Normal sinus rhythm. Rate: 98. Normal P waves. Interpretation time: 21:26 11/30/2023. CT C-Spine: No acute findings. No fracture. CT Abdomen, Pelvis: Abdominal aortic aneurysm present (3.2 cm abdominal aortic aneurysm. Abdominal aorta intact.). No fracture. Note - Tests: (CT scan of the chest showed a contour abnormality of the aortic arch. Since there is no fracture I am assuming this is what is causing his back pain. CT scan of the brain showed no skull fracture. No acute intracranial hemorrhage.). 3 of 14 Narrative Laboratory Tests: CBC + DIFF Final WATSON: 11/30/2023 20:40:00 EDT MsgRcvd: 11/30/2023 21:46 EDT Lab Test Result Reference Status Received Comments 11/30/2023 21:46 CBC-COMPLETE CBC + DIFF Final EDT BLOOD COUNT 11/30/2023 21:46 WBC 10.6 x 10/UL 4.5 - 10.8 Final EDT 10 (more content not included)... [facility] PHYS CODING SUMMARY SLIME PLANT OPERATOR AB Pastor 12-06-2023 PHYS CODING SUMMARY SLIME PLANT OPERATOR ABST Coding Summary Coding Summary [place] [address] [place] [address] [id number] 11/30/2023 Patient: DONTAE PARRA Sex: Male : 1975 Age: 48y ICD-10 Codes M54.9: Dorsalgia, unspecified M54.6: Pain in thoracic spine W14.xxxA: Fall from tree, initial encounter CPT Codes EKG (Insufficient documentation to return CPT code.) This is a partial abstract of information documented in the full record. Inside Sales Territory Manager must use independent judgment in selecting codes. CPT copyright 2022 [employer]. All Rights Reserved. 1 of 1 Normal [facility] SUPER BILLon 12-06-2023 SUPER BILL [place] [id number] [facility] [place] [address] [id number] 11/30/2023 Patient: DONTAE PARRA Sex: Male : 1975 Age: 48y Facility Professional Category Item Description Code Code Quantity Fee Total Drugs Normal Saline 121009 1 $0.00 $0.00 1000cc (008264) Nurse/E/M EMERGENCY 124507 1 $0.00 $0.00 DEPT VISIT HIGH SEVERITYFUNCJ (44446-01) Nurse/IV/IM/Infusions Drip/IVPB initial 243378 1 $0.00 $0.00 (47931) Nurse/IV/IM/Infusions Hydration 615095 3 $0.00 $0.00 additional hour (33277) Nurse/IV/IM/Infusions IVP additional 406448 3 $0.00 $0.00 push (64055) Nurse/IV/IM/Infusions IVP same med 317018 1 $0.00 $0.00 (31 min apart) (72934) Grand $0.00 Total 1 of 2 [facility] Providers Mumtaz Holley D.O. Chief Complaint BACK INJURY. Fell out of a tree stand approximately 15 ft. Struck the right side of his head. Questionable loss of consciousness. Does complain of thoracic and lumbar region back pain. Principal Diagnosis Acute traumatic thoracic back pain. Fall from tree. ICD-10 Codes M54.9: Dorsalgia, unspecified M54.6: Pain in thoracic spine W14.xxxA: Fall from tree, initial encounter 2 of 2 Normal [facility] VISIT SUMMARYon 12-06-2023 VISIT SUMMARY Visit Overview Visit Overview [facility] [address] [place] [address] [phone] 11/30/2023 Patient: DONTAE PARRA Sex: Male : 1975 Age: 48y 12/06/2023 09:04 PM EDT ED Arrival:19:27 11/30/2023 EDT Status: Recent Travel:no Language:eng Adv Directive: Isolation Status: Ethnicity:N Fall Risk:risk Infectious Disease Exposure:no Measurements:6' / 182.9 Self-Harm Status:risk Sepsis Screen:negative cm 218.0 lb / 98.9 kg Chief Complaint: ALLERGIES isosorbide HOME MEDICATIONS albuterol sulfate 90 mcg/actuation breath activated powder inhaler: as needed. aspirin 81 mg capsule: once a day . Breztri Aerosphere 160 mcg-9mcg-4.8mcg/actua tion HFA aerosol inhaler: as needed. buPROPion HCL XL 150 mg 24 hr tablet, extended release: once a day . carvediloL 25 mg tablet: once a day . clopidogreL 75 mg tablet: once a day . Fasenra Pen 30 mg/mL subcutaneous auto-injector: 30 mg weekly . hydroCHLOROthiazide 25 mg tablet: once a day . 1 of 4 Visit Overview montelukast 10 mg tablet: once a day . nitroglycerin 0.4 mg sublingual tablet: as needed. omeprazole 40 mg capsule,delayed release: once a day . potassium chloride 20 mEq oral packet: once a day . prazosin 1 mg capsule: once a day . ranolazine ER 500 mg tablet,extended release,12 hr: 500 mg twice a day . rosuvastatin 10 mg tablet: at bedtime . traZODone 50 mg tablet: at bedtime . PAST MEDICAL HISTORY / PROBLEMS Asthma COPD - Chronic Obstructive Pulmonary Disease CVA - Cerebrovascular Accident Heart disease Hypertension Lung disease Myocardial Infarction PAST SURGICAL HISTORY Cardiac Procedures SOCIAL HISTORY Smoking status: Yes Alcohol use: No Drug use: No ED COURSE MEDICATIONS GIVEN IN EMERGENCY DEPARTMENT 21:16 11/30/23 Dilaudid IVP 1 mg 21:17 11/30/23 Zofran IVP 4 mg 21:19 11/30/23 IV NS 0.9 % 1000 mL 999 mL/hr 21:22 11/30/23 CeFAZolin IVPB 1g/50ml PREMIX 1 g 100 mL/hr 01:04 12/01/23 Zofran IVP 4 mg 01:06 12/01/23 MORPHine IVP 4 mg 2 of 4 Visit Overview IV SITE INFORMATION 19:39 11/30/23 Site #1 left AC, 18g. Saline lock. INTAKE OUTPUT Total Urine 200 mL TOTAL OUTPUT 200 mL REASSESMENT (most recent) 22:35 11/30/23. Overall patient status is the same- the patient states feels the same. VITAL SIGNS First Vitals Last Vitals Temp 19:42 11/30/23 98.0 F Temp 01:10 12/01/23 BP 19:42 11/30/23 145/78 BP 01:10 12/01/23 HR 19:42 11/30/23 92 HR 01:10 12/01/23 93 RR 19:42 11/30/23 18 RR 01:10 12/01/23 O2 Sat 19:42 11/30/23 96% O2 Sat 01:10 12/01/23 90% Pain 19:42 11/30/23 8 Pain 01:10 12/01/23 ETCO2 19:42 11/30/23 ETCO2 01:10 12/01/23 GCS 19:42 11/30/23 GCS 01:10 12/01/23 RTS 19:42 11/30/23 RTS 01:10 12/01/23 PROCEDURES NURSING INTERVENTIONS LABS / STUDIES LABS / STUDIES ORDERED CBC w Diff CMP CT Brain wo IV Cont CT C-Spine wo IV Cont CT CAP w IV Cont Lipase Troponin-I Troponin-I 3 of 4 Visit Overview CLINICAL IMPRESSION ACUTE TRAUMATIC THORACIC BACK PAIN FALL FROM TREE POSSIBLE THORACIC AORTIC ANEURYSM WITH DISSECTION POSSIBLE THORACIC AORTIC DISSECTION 4 of 4 Normal [facility] CBC W Auto Differential pane l (Bld)on 12-01-2023 Basophils (Bld) [#/Vol] 0.0 10*3/uL 0.0 - 0.2 10*3/uL [facility] Basophils/100 WBC (Bld) 0.1 % 0.0 - 2.0 % [facility] Eosinophils (Bld) [#/Vol] 0.0 10*3/uL 0. 0 - 0.5 10*3/uL [facility] Eosinophils/100 WBC (Bld) 0.3 % 0. 0 - 6.0 % [facility] Erythrocyte distribution width (RBC) [Ratio] 14.0 % 11.5 - 15.0 % [facility] Hematocrit (Bld) [Volume fraction] 38.9 % Low 40.0 - 52.0 % [facility] Hemoglobin (Bld) [Mass/Vol] 13.5 g/dL 13.0 - 18.0 g/dL [facility] Immature granulocytes (Bld) [#/Vol] 0.0 10*3/uL NINF - 0.1 10*3/uL [facility] Immature granulocytes/100 WBC (Bld) 0.4 % 0.0 - 2.0 % [facility] Interpretation and review of laboratory results Abnormal [place] [facility] Lymphocytes (Bld) [#/Vol] 1.3 10*3/uL 1. 0 - 4.3 10*3/uL [facility] Lymphocytes/100 WBC (Bld) 16.4 % 15 .0 - 45.0 % [facility] MCH (RBC) [Entitic mass] 30.8 pg 26. 0 - 34.0 pg [facility] MCHC (RBC) [Mass/Vol] 34.7 % 30.5 - 36.0 % [facility] MCV (RBC) [Entitic vol] 88.6 fL 77.0 - 99.0 fL [facility] Monocytes (Bld) [#/Vol] 0.6 10*3/uL 0.0 - 0.9 10*3/uL [facility] Monocytes/100 WBC (Bld) 7.4 % 5.0 - 13.0 % [facility] Neutrophils (Bld) [#/Vol] 5.8 10*3/uL 1. 8 - 7.5 10*3/uL [facility] Neutrophils/100 WBC (Bld) 75.4 % 38 .0 - 82.0 % [facility] Nucleated RBC/100 WBC (Bld) [Ratio] 0.0 % [facility] Platelet mean volume (Bld) [Entitic vol] 8.5 fL Low 9.0 - 12.7 fL [facility] Platelets (Bld) [#/Vol] 212 10*3/uL 140 - 440 10*3/uL [facility] RBC (Bld) [#/Vol] 4.39 10*6/uL Low 4.40 - 5.90 10*6/uL [facility] WBC (Bld) [#/Vol] 7.7 10*3/uL 3.6 - 10.7 10*3/uL [facility] CBC WITH AUTO DIFFERENTIALon 12-01-2023 Basophils (Bld) [#/Vol] 0.0 10*3/uL Normal 0.0-0.2 [facility] Comment on above: Performed By: #### L [id number] #### Shoelace Tipping Machine Operator: NEISHA DELGADO ([id number]) [facility] ([facility]) [address] [place] [address] Basophils/100 WBC (Bld) 0.1 % Normal 0.0-2.0 [facility] Comment on above: Performed By: #### L [id number] #### Shoelace Tipping Machine Operator: NEISHA DELGADO ([id number]) [facility] ([facility]) [address] [place] [address] [place] Eosinophils (Bld) [#/Vol] 0.0 10*3/uL Normal 0.0-0.5 [facility] Comment on above: Performed By: #### L [id number] #### Shoelace Tipping Machine Operator: NEISHA DELGADO ([id number]) [facility] ([facility]) [address] [place] [address] Eosinophils/100 WBC (Bld) 0.3 % Normal 0.0-6.0 [facility] Comment on above: Performed By: #### L [id number] #### Shoelace Tipping Machine Operator: NEISHA DELGADO ([id number]) [facility] ([facility]) [address] [place] [address] Erythrocyte distribution width (RBC) [Ratio] 14.0 % Normal 11.5-15.0 [facility] Comment on above: Performed By: #### L [id number] #### Shoelace Tipping Machine Operator: NEISHA DELGADO ([id number]) [facility]) [address] [place] [address] Hematocrit (Bld) [Volume fraction] 38.9 % Low 40.0-52.0 [facility] Comment on above: Performed By: #### L [id number] #### Shoelace Tipping Machine Operator: NEISHA DELGADO ([id number]) [facility] ([facility]) [address] [place] [address] Hemoglobin (Bld) [Mass/Vol] 13.5 g/dL Normal 13.0-18.0 [facility] Comment on above: Performed By: #### L [id number] #### Shoelace Tipping Machine Operator: NEISHA DELGADO ([id number]) [facility]) [address] [place] [address] IMMATURE GRANS % 0.4 % Normal 0.0-2.0 [facility] Comment on above: Performed By: #### L [id number] #### Shoelace Tipping Machine Operator: NEISHA DELGADO ([id number]) [facility]) [address] [place] [address] IMMATURE GRANS ABSOLUTE 0.0 10*3/uL Normal <0.1 [facility] Comment on above: Performed By: #### L [id number] #### Shoelace Tipping Machine Operator: NEISHA DELGADO ([id number]) [facility]) [address] [place] [address] Lymphocytes (Bld) [#/Vol] 1.3 10*3/uL Normal 1.0-4.3 [facility] Comment on above: Performed By: #### L [id number] #### Shoelace Tipping Machine Operator: NEISHA DELGADO ([id number]) [facility]) [address] [place] [address] Lymphocytes/100 WBC (Bld) 16.4 % Normal 15.0-45.0 [facility] Comment on above: Performed By: #### L [id number] #### Shoelace Tipping Machine Operator: NEISHA DELGADO ([id number]) [facility] ([facility]) [address] [place] [address] MCH (RBC) [Entitic mass] 30.8 pg Normal 26.0-34.0 [facility] Comment on above: Performed By: #### L [id number] #### Shoelace Tipping Machine Operator: NEISHA DELGADO ([id number]) [facility] ([facility]) [address] [place] [address] MCHC 34.7 % Normal 30.5-36.0 [facility] Comment on above: Performed By: #### L [id number] #### Shoelace Tipping Machine Operator: NEISHA DELGADO ([id number]) [facility] ([facility]) [address] [place] [address] MCV (RBC) [Entitic vol] 88.6 fL Normal 77.0-99.0 [facility] Comment on above: Performed By: #### L [id number] #### Shoelace Tipping Machine Operator: NEISHA DELGADO ([id number]) [facility] ([facility]) [address] [place] [address] Monocytes (Bld) [#/Vol] 0.6 10*3/uL Normal 0.0-0.9 [facility] Comment on above: Performed By: #### L [id number] #### Shoelace Tipping Machine Operator: NEISHA DELGADO ([id number]) [facility] ([facility]) [address] [place] [address] Monocytes/100 WBC (Bld) 7.4 % Normal 5.0-13.0 [facility] Comment on above: Performed By: #### L [id number] #### Shoelace Tipping Machine Operator: NEISHA DELGADO ([id number]) [facility] ([facility]) [address] [place] [address] NEUTROPHILS ABSOLUTE 5.8 10*3/uL Normal 1.8-7.5 [facility] Comment on above: Performed By: #### L [id number] #### Shoelace Tipping Machine Operator: NEISHA DELGADO ([id number]) [facility] ([facility]) [address] [place] [address] Neutrophils/100 WBC (Bld) 75.4 % Normal 38.0-82.0 [facility] Comment on above: Performed By: #### L [id number] #### Shoelace Tipping Machine Operator: NEISHA DELGADO ([id number]) [facility] ([facility]) [address] [place] [address] NRBC 0.0 /100 WBCs Normal 0.0-2.0 [facility] Comment on above: Performed By: #### L [id number] #### Shoelace Tipping Machine Operator: NEISHA DELGADO ([id number]) [facility] ([facility]) [address] [place] [address] Platelet mean volume (Bld) [Entitic vol] 8.5 fL Low 9.0-12.7 [facility] Comment on above: Performed By: #### L [id number] #### Shoelace Tipping Machine Operator: NEISHA DELGADO ([id number]) [facility] ([facility]) [address] [place] [address] Platelets (Bld) [#/Vol] 212 10*3/uL Normal 140-440 [facility] Comment on above: Performed By: #### L [id number] #### Shoelace Tipping Machine Operator: NEISHA DELGADO ([id number])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 documents including previous family medicine notes. Per chart review, patient has been followed for or diagnosed with COPD, HLD in the past. Will consider these factors in evaluation and management for today's care. Discussed plan with patient who agrees with current plan. Diagnostics interpreted by me: Per below I personally discussed the patient's management with other clinicians: Trauma consult, orthopedic consult End of visit medical decision making Patient was reassessed. Resting comfortably. No acute distress. Independently reviewed and interpreted the lab results which demonstrated the following: No significant leukocytosis, no significant anemia, all electrolytes within normal limits Independently reviewed the reports of other imaging which demonstrated the following: Marked thick plaque deposition abdominal aorta without aneurysm. 2. Unremarkable aortic arch except for atherosclerosis with bovine type branching pattern with no definite traumatic injury pattern (no mediastinal hematoma seen). Moderate bibasilar areas of infiltrate/atelectasi s with underlying marked centrilobular emphysema. Response to medical management provided in the ED: improving (Consults) Discussed care with: trauma, orthoedpics Discussed all results with patient and/or family members. They verbalize understanding. Offered admission for further management. Discussed risks, benefits and alternatives for further management in the hospital. Due to high risk of morbidity and mortality of the stated findings and results, patient will be admitted for further management and care. Patient is agreeable to the plan. Discussed patient, presentation and workup with admitting team. Admitting team is agreeable to current workup and evaluation. They will admit the patient and provide further care. Pending results to be followed by primary admitting team. Patient will need med level of care and not appropriate for lower acuity location of care due to risk of morbidity and mortality Patient's condition and/or care was impacted by recent fall, copd Patient's condition and/or care was significantly impacted by social determinants of health including: n/a All diagnostic, treatment, and disposition decisions were made by myself in conjunction with the Resident. I also supervised potter portions of any procedures performed by the Resident. For all further details of the patient's emergency department visit, please see their documentation. (Comment: Please note this report has been produced using speech recognition software and may contain errors related to that sys (more content not included)... [facility] Nursing Noteon 12-01-2023 Nursing Note Pt discharging at this time. All belongings collected. Discharge packet reviewed with all questions answered. [facility] XR Ankle - left 3 Viewson Patient Name: DONTAE PARRA : 1975 Exam Date/Time: 12/01/2023 05:57 Procedure: XR ANKLE 3+ VIEWS LEFT Ordering Provider: THOMAS AKASH Reason For Exam: Trauma HISTORY: Trauma three views left ankle shows no evidence of fracture. Report Dictated on Electronically Signed By: Yony Rogers MD Electronically Signed Date/Time: 12/01/2023 6:08 AM EDT [facility] Yony Rogers MD - 12/01/2023 Patient Name: DONTAE PARRA : 1975 Exam Date/Time: 12/01/2023 05:57 Procedure: XR ANKLE 3+ VIEWS LEFT Ordering Provider: THOMAS AKASH Reason For Exam: Trauma HISTORY: Trauma three views left ankle shows no evidence of fracture. Report Dictated on Electronically Signed By: Yony Rogers MD Electronically Signed Date/Time: 12/01/2023 6:08 AM EDT [facility] Radiology Study observation (narrative) [facility] XR Shoulder - right 2 Viewso n 12-01-2023 1. Negative examination of the right shoulder. Report Dictated on Electronically Signed By: Yony Rogers MD Electronically Signed Date/Time: 12/01/2023 6:08 AM EDT [facility] Patient Name: DONTAE PARRA : 1975 Exam Date/Time: 12/01/2023 05:56 Procedure: XR SHOULDER 2+ VIEWS RIGHT Ordering Provider: THOMAS AKASH Reason For Exam: Trauma CLINICAL INFORMATION: Trauma Frontal, axillary and Y views of the right shoulder were obtained. Bone density appears normal. No fracture or dislocation is noted. The joint spaces are within normal limits. There are no significant soft tissue abnormalities. [facility] Yony Rogers MD - 12/01/2023 [facility] Name: [facility] 1975 [id number] Exam Date/Time: 12/01/2023 05:56 Procedure: XR SHOULDER 2+ VIEWS RIGHT Ordering Provider: THOMAS AKASH Reason For Exam: Trauma CLINICAL INFORMATION: Trauma Frontal, axillary and Y views of the right shoulder were obtained. Bone density appears normal. No fracture or dislocation is noted. The joint spaces are within normal limits. There are no significant soft tissue abnormalities. IMPRESSION: 1. Negative examination of the right shoulder. Report Dictated on Electronically Signed By: Yony Rogers MD Electronically Signed Date/Time: 12/01/2023 6:08 AM EDT [facility] Radiology Study observation (narrative) [facility] CBC + DIFFon 11-30-2023 Baso # 0.03 x10EE3/UL Normal 0.00 - 0.10 [facility] Comment on above: Performed By: #### 2 [id number] ####[facility],[address] [place] [address] 19259 Basophils/100 WBC (Bld) 0.3 % Normal 0.0 - 2.0 [facility] Comment on above: Performed By: #### 2 59263 ####[facility],[address] [place] [address] 04635 CBC + DIFF Normal [facility] Comment on above: Result Comment: CBC- COMPLETE BLOOD COUNT Performed By: #### 2 20952 ####[facility],[address] [place] [address] 73275 EO # 0.04 x10EE3/UL Normal 0.00 - 0.50 [facility] Comment on above: Performed By: #### 2 73467 ####[facility],[address] [place] [address] 64112 Eosinophils/100 WBC (Bld) 0.4 % Normal 0.0 - 7.0 [facility] Comment on above: Performed By: #### 2 58341 ####[facility],[address] [place] [address] Erythrocyte distribution width (RBC) [Ratio] 13.5 % Normal 12.0 - 15.6 [facility] Comment on above: Performed By: #### 2 20018 ####[facility],[address] [place] [address] Hematocrit (Bld) [Volume fraction] 43.5 % Normal 40.0 - 52.0 [facility] Comment on above: Performed By: #### 2 38654 ####[facility],[address] [place] [address] Hemoglobin (Bld) [Mass/Vol] 14.7 g/dL Normal 13.0 - 17.5 [facility] Comment on above: Performed By: #### 2 81889 ####[place] [address] Lymph # 1.47 x10EE3/UL Normal 0.80 - 2.80 [facility] Comment on above: Performed By: #### 2 99623 ####[place] [address] Lymphocytes/100 WBC (Bld) 13.9 % Low 20 .0 - 45.0 [facility] Comment on above: Performed By: #### 2 67689 ####[place] [id number] MANUAL DIFF N/A Normal [facility] Comment on above: Performed By: #### 2 71028 ####[place] [id number] MCH (RBC) [Entitic mass] 31 pg Normal 27 - 33 [facility] Comment on above: Performed By: #### 2 47142 ####[place] [address] MCHC 34 X10 3 Normal 32 - 36 [facility] Comment on above: Performed By: #### 2 69418 ####[facility],[address] [place] [address] 14815 MCV (RBC) [Entitic vol] 91 fL Normal 81 - 98 [facility] Comment on above: Performed By: #### 2 37359 ####[facility],[address] [place] [address] 90278 Holmes # 0.70 x10EE3/UL Normal 0.20 - 1.00 [facility] Comment on above: Performed By: #### 2 00681 ####[facility],[address] [place] [address] 32761 MONOS % 6.6 % Normal 0.0 - 10.0 [facility] Comment on above: Performed By: #### 2 45730 ####[facility],[address] [place] [address] 81873 Morphology Nakul (Bld) [Interp] SEE BELOW Normal [facility] Comment on above: Performed By: #### 2 66353 ####[facility],[address] [place] [address] 76070 Neut # 8.37 x10EE3/UL High 1.50 - 7.10 [facility] Comment on above: Performed By: #### 2 11831 ####[facility],[address] [place] [address] 51759 Neutrophils/100 WBC (Bld) 78.9 % High 46 .0 - 76.0 [facility] Comment on above: Performed By: #### 2 70952 ####[facility],[address] [place] [address] 44090 PLATELET 236 x10EE3/UL Normal 150 - 450 [facility] Comment on above: Performed By: #### 2 59328 ####[facility],[address] [place] [address] 44896 Platelet mean volume (Bld) [Entitic vol] 6.1 fL Low 6.4 - 10.5 [facility] Comment on above: Result Comment: AUTO MATED DIFFERENTIAL Performed By: #### 2 09022 ####[facility],[address] [place] [address] 85819 PLT EST NORMAL Normal [facility] Comment on above: Performed By: #### 2 05571 ####[facility],[address] [place] [address] 87620 RBC 4.78 x 10EE6/UL Normal 4.50 - 6.00 [facility] Comment on above: Performed By: #### 2 77659 ####[facility],[address] [place] [address] 92974 WBC 10.6 x 10EE3/UL Normal 4.5 - 10.8 [facility] Comment on above: Performed By: #### 2 07844 ####[facility],[address] [place] [address] 30521 CMP with eGFRon 11-30-2023 AGE 48 years Normal [facility] Comment on above: Performed By: #### 2 95518 ####[facility],[address] [place] [address] 93333 Albumin [Mass/Vol] 3.7 g/dL Normal 3.4 - 5.0 [facility] Comment on above: Performed By: #### 2 40832 ####[facility],[address] [place] [address] 79762 Albumin/Globulin [Mass ratio] 1.1 {ratio} Normal 0.9 - 1.6 [facility] Comment on above: Performed By: #### 2 38905 ####[facility],[address] [place] [address] 70381 ALK PHOS 91 U/L Normal 46 - 116 [facility] Comment on above: Performed By: #### 2 42001 ####[facility],[address] [place] [address] 98176 ALT [Catalytic activity/Vol] 32 U/L Normal 16 - 63 [facility] Comment on above: Performed By: #### 2 37491 ####[facility],[address] [place] [address] 31645 Anion gap [Moles/Vol] 9 mmol/L Low 10 - 20 [facility] Comment on above: Performed By: #### 2 15685 ####[facility],[address] [place] [address] 94962 AST [Catalytic activity/Vol] 25 U/L Normal 15 - 37 [facility] Comment on above: Performed By: #### 2 66396 ####[facility],[address] [place] [address] 97217 B/C RATIO 13 ratio Normal 0 - 30 [facility] Comment on above: Performed By: #### 2 42668 ####[facility],[address] [place] [address] 71244 Bilirubin [Mass/Vol] 0.6 mg/dL Normal 0.2 - 1.0 [facility] Comment on above: Performed By: #### 2 84091 ####[facility],[address] [place] [address] 74968 Calcium [Mass/Vol] 9.0 mg/dL Normal 8.5 - 10.1 [facility] Comment on above: Performed By: #### 2 00251 ####[facility],[address] [place] [address] 99709 Chloride [Moles/Vol] 105 mmol/L Normal 98 - 107 [facility] Comment on above: Performed By: #### 2 73146 ####[facility],[address] [place] [address] 65449 CMP with eGFR Normal [facility] Comment on above: Result Comment: COMP REHENSIVE METABOLIC PANEL Performed By: #### 2 26361 ####[facility],[address] [place] [address] 35122 CO2 [Moles/Vol] 28.6 mmol/L Normal 21.0 - 32.0 [facility] Comment on above: Performed By: #### 2 74301 ####[facility],[address] [place] [address] 30414 Creatinine [Mass/Vol] 1.40 mg/dL High 0.70 - 1.30 [facility] Comment on above: Performed By: #### 2 37396 ####[facility],[address] [place] [address] 94669 eGFR 54 ML/MINUTE Low 60 - 999 [facility] Comment on above: Performed By: #### 2 10103 ####[facility],[address] [place] [address] 63880 GFR/1.73 sq M.predicted among non-blacks MDRD (S/P/Bld) [Vol rate/Area] mL/min/{1.73_m2} Normal 60 - 999 [facility] Comment on above: Result Comment: ACCO RDING TO THE NATIONAL KIDNEY DISEASE EDUCATION PROGRAM(NKDE), A NORMAL eGFR IS A VALUE GREATER THAN OR EQUAL TO 60 ML/MIN/1.73 SQ METERS. CHRONIC KIDNEY DISEASE: <60mL/MIN/1.73 SQ METERS KIDNEY FAILURE: <15mL/MIN/1.73 SQ METERS THIS TEST SHOULD ONLY BE USED FOR PATIENTS 18 YEARS OF AGE AND OLDER. Performed By: #### 2 20909 ####[facility],[address] [place] [address] 26084 Globulin (S) [Mass/Vol] 3.4 g/dL Normal 1.5 - 3.8 [facility] Comment on above: Performed By: #### 2 19004 ####[facility],[address] [place] [address] 24325 Glucose [Mass/Vol] 100 mg/dL Normal 74 - 106 [facility] Comment on above: Performed By: #### 2 50130 ####[facility],[address] [place] [address] 05713 Potassium [Moles/Vol] 3.8 mmol/L Normal 3.5 - 5.1 [facility] Comment on above: Performed By: #### 2 78205 ####[facility],[address] [place] [address] 15441 Protein [Mass/Vol] 7.1 g/dL Normal 6.4 - 8.2 [facility] Comment on above: Performed By: #### 2 75319 ####[facility],[address] [place] [address] 12453 Sodium [Moles/Vol] 139 mmol/L Normal 136 - 145 [facility] Comment on above: Performed By: #### 2 30687 ####[facility],[address] [place] [address] 77681 Urea nitrogen [Mass/Vol] 18 mg/dL Normal 7 - 18 [facility] Comment on above: Performed By: #### 2 02261 ####[facility],[address] [place], [place] [id number] CT BRAIN W/O CONTRAST 11-19 CT BRAIN W/O CONTRAST [place] [address] Patient: DONTAE PARRA Phone#: : 1975 Age: 48 Gender: M Pt. Type: ER Account: [id number] Location: [facility] Ordering: MUMTAZ HOLLEY Exam Date: 11/30/2023/20:55 Family Phys: Charge Code: [id number] Physician: Crook Order #: [id number] Dose#: [id number] PROCEDURE: CT BRAIN WITHOUT CONTRAST COMPARISON: None. INDICATIONS: trauma TECHNIQUE: CT images were obtained without contrast material. All CT scans at this facility use dose modulation, iterative reconstruction, and/or weight based dosing when appropriate to reduce radiation dose to as low as reasonably achievable. IV CONTRAST: No IV contrast used,ml TOTAL DOSE: 52.3 CTDIvol(mGy) FINDINGS: CEREBRUM: No edema, hemorrhage, mass, acute infarction, or inappropriate atrophy. CEREBELLUM: No edema, hemorrhage, mass, acute infarction, or inappropriate atrophy. BRAINSTEM: No edema, hemorrhage, mass, acute infarction, or inappropriate atrophy. CSF SPACES: Ventricles, cisterns, and sulci are appropriate for age. No hydrocephalus, subarachnoid hemorrhage, or mass. SKULL: THERE IS A RIGHT POSTERIOR PARIETAL SCALP HEMATOMA. SINUSES: Mucosal thickening in the sphenoid sinuses. ORBITS: Limited views are unremarkable. OTHER: Negative. CONCLUSION: 1. Of acute intracranial abnormality. Dictated by: Christina Londono MD on 12/02/2023 at 18:30 Approved by: Christina Londono MD on 12/02/2023 at 18:31 Normal [facility] CT CERVICAL W/O CONTRASTon 1 CT CERVICAL W/O CONTRAST [place] [address] Patient: DONTAE PARRA Phone#: : 1975 Age: 48 Gender: M Pt. Type: ER Account: [id number] Location: [facility] Ordering: MUMTAZ HOLLEY Exam Date: 11/30/2023/20:55 Family Phys: Charge Code: [id number] Physician: Crook Order #: [id number] Dose#: 14.7 PROCEDURE: CT CERVICAL WITHOUT CONTRAST COMPARISON: None. INDICATIONS: Trauma TECHNIQUE: Multi-planar CT images were created without intravenous contrast. All CT scans at this facility use dose modulation, iterative reconstruction, and/or weight-based dosing when appropriate to reduce radiation dose to as low as reasonably achievable. IV CONTRAST: No IV contrast used,ml TOTAL DOSE: 14.7 CTDIvol(mGy) FINDINGS: CRANIOCERVICAL AREA: Normal foramen magnum with no Chiari malformation. PARASPINAL AREA: Normal with no visible mass. BONES: No fracture, pars defect, or osseous lesion. CERVICAL DISC LEVELS: C2-C3: No significant disc/facet abnormality, spinal stenosis, or foraminal stenosis. C3-C4: Mild bony hypertrophy is present. There is foraminal narrowing. C4-C5: No significant disc/facet abnormality, spinal stenosis, or foraminal stenosis. C5-C6: Mild endplate hypertrophy. There is bilateral foraminal narrowing. C6-C7: No significant disc/facet abnormality, spinal stenosis, or foraminal stenosis. C7-T1: No significant disc/facet abnormality, spinal stenosis, or foraminal stenosis. CONCLUSION: 1. Mild degenerative changes are present. 2. There is no evidence of acute fracture or subluxation. Dictated by: Christina Londono MD on 12/02/2023 at 18:45 Approved by: Christina Londono MD on 12/02/2023 at 18:48 Normal [facility] CT CHEST/ABD/PELVIS C+on CT CHEST/ABD/PELVIS C+ [place] [address] Patient: DONTAE PARRA Phone#: : 1975 Age: 48 Gender: M Pt. Type: ER Account: [id number] Location: [facility] Ordering: MUMTAZ HOLLEY Exam Date: 11/30/2023/21:02 Family Phys: Charge Code: [id number] Physician: Crook Order #: [id number] Dose#: 31.4 PROCEDURE: CT CHEST/ABD/PELVIS W COMPARISON: None. INDICATIONS: Trauma TECHNIQUE: After obtaining the patient's consent, CT images were obtained with intravenous contrast material. All CT scans at this facility use dose modulation, iterative reconstruction, and/or weight based dosing when appropriate to reduce radiation dose to as low as reasonably achievable. IV CONTRAST: Omnipaque 350,80ml CHEST DOSE: 11.2 CTDIvol(mGy) ABDOMEN DOSE: 20.20 CTDIvol(mGy) FINDINGS: LUNGS: A few bulla are present in the apices. No visible pulmonary disease. VASCULATURE: Normal. No visible pulmonary arterial thrombus or attenuation. SHORTY: Normal. No mass or adenopathy. MEDIASTINUM: Nonspecific paratracheal lymph nodes are present. CARDIAC: Coronary artery calcification is present. PLEURA: Normal. No mass or effusion. CHEST WALL: Normal. No mass or axillary adenopathy. LIVER: Normal. No enlargement, atrophy, abnormal density, or significant focal lesion. BILIARY: Normal. No visible dilatation or calcification. PANCREAS: Normal. No lesion, fluid collection, ductal dilatation, or atrophy. SPLEEN: Normal. No enlargement or focal lesion. KIDNEYS: Normal. No mass, obstruction, or calcification. ADRENALS: Normal. No mass or enlargement. AORTA/VASCULAR: There is no evidence of aneurysmal dilatation or dissection. However at the arch there is contour abnormality laterally, series 2/image 18, and is of questionable etiology. It is uncertain if this represents acute versus chronic Continued Report - Page 2 of 2 Patient: DONTAE PARRA Phone#: : 1975 Age: 48 Gender: M Pt. Type: ER Account: [id number] Location: 052 Ordering: MUMTAZ HOLLEY Exam Date: 11/30/2023/21:02 Family Phys: Charge Code: [id number] Physician: Crook Order #: [id number] Dose#: 31.4 etiology. At the L3-4 level circumferential thrombus is present with aortic dimensions of 2.8 x 3.3 centimeters. RETROPERITONEUM: Normal. No mass or adenopathy. BOWEL/MESENTERY: Normal. No visible mass, obstruction, or bowel wall thickening. ABDOMINAL WALL: Normal. No mass or hernia. URINARY BLADDER: Normal. No visible focal wall thickening, lesion, or calculus. PELVIC NODES: Normal. No adenopathy. PELVIC ORGANS: Normal. No visible mass. Pelvic organs appropriate for patient age. BONES: Mild degenerative changes of the spine are present.. No bony lesion or fracture. OTHER: Negative. CONCLUSION: 1. Focal contour abnormality involving the lateral aorta at the arch and is of questionable etiology. 2. Mild aneurysmal dilatation of the aorta at the L3-4 level with diameter 3.3 centimeters. 3. No other acute thoracic, abdominal pelvic abnormality is identified. Dictated by: Christina Londono MD on 12/03/2023 at 10:54 Approved by: Christina Londono MD on 12/03/2023 at 11:03 Normal [facility] LIPASEon 11-30-2023 Lipase [Catalytic activity/Vol] 26.0 U/L Normal 15.0 - 78.0 [facility] Comment on above: Result Comment: *PLE ASE NOTE THAT RANGES FOR LIPASE HAVE CHANGED OF 02/16/23 DUE TO AN ASSAY UPDATE BY THE COMPLIANCE MONITOR.THE NEW ASSAY RANGE IS 6-250 U/L, WITH A REFERENCE RANGE OF 16-77 U/L. Performed By: #### 2 [id number] #### [facility],[address] [place] [address] TROPONINon 11-30-2023 HS TROPONIN <4.0 Normal 0.0 - 76.2 [facility] Comment on above: Performed By: #### 2 37557 #### [facility],[address] [place] [address] CREATININE FINGERSTICKon CREATININE WB < 1.0 Normal 0.70-1.30 [facility] Comment on above: Performed By: #### L 9100.0200 #### [facility] [address] [place], [address] EGFR WB > 60.0000 Normal >60 [facility] Comment on above: Performed By: #### L 9100.0200 #### [facility] [address] [place], [address] Spine Lumbar W/WO Contraston 11-20-2023 Spine Lumbar W/WO Contrast [facility] Services [address] [place] [address] Spine Lumbar W/WO Contrast MR#: [id number] Acct: [id number] Name: DONTAE PARRA MARVA Rep #: [id number] : 1975 M 48 From: Kurtis Guzman MD PCP: JEANNIE HERNANDEZ 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 LEG PAIN TECHNIQUE: Standardized fat and water weighted pulse sequences were obtained in the sagittal and axial planes. IV 19ml clariscan was administered for the contrast portion of the examination. COMPARISON: None FINDINGS: T12-L1: Normal endplates. Normal disc height, hydration and morphology. Normal bilateral facet joints. Normal central canal and bilateral lateral recesses. Normal bilateral intervertebral neural foramina. Normal lumbar lordosis. There is no substantial scoliosis. Normal conus medullaris that terminates at T12-L1 L1-2: Normal endplates. Normal disc height, hydration and morphology. Normal bilateral facet joints. Normal central canal and bilateral lateral recesses. Normal bilateral intervertebral neural foramina. L2-3: Normal endplates. Normal disc height, desiccation and normal morphology. Normal bilateral facet joints. Normal central canal and bilateral lateral recesses. Normal bilateral intervertebral neural foramina. L3-4: Normal endplates. Normal disc height, desiccation and tiny right foraminal disc protrusion. Normal bilateral facet joints. Normal central canal and bilateral lateral recesses. Mild right neural foraminal encroachment. L4-5: Schmorl''s node of the superior endplate of L5. Normal disc height, desiccation and small left foraminal disc protrusion. Mild facet arthropathy. Normal central canal and bilateral lateral recesses. Mild right neural foraminal encroachment and moderate narrowing of the left.. L5-S1: Normal endplates. Normal disc height, desiccation and minimal annular bulge with tiny central/left posterolateral disc protrusion impinging upon the descending left S1 nerve root.. Normal bilateral facet joints. Normal central canal and bilateral lateral recesses. Mild bilateral neural foraminal encroachment Normal visualized sacral ala. Normal visualized paraspinous soft tissue structures. MRI/Spine Lumbar W/WO Contrast IMPRESSION: No evidence for acute fracture is fixation.. Multilevel disc degeneration and spinal stenosis secondary to disc disease and facet arthropathy more pronounced on the left at L4-5 Findings as above Electronically Signed: Kurtis Guzman MD at 23:08 EDT Reading Location ID and State: [facility] / [place] Tel , Service support , CC: JEANNIE HERNANDEZ; JOSE NAPIER Equal Opportunity Officer: Signed Normal [facility] MR/BMS.BPon 11-06-2023 MR/BMS.BP [facility] [address], [address] [place] [address] OFFICE VISIT Date of Service: 11/06/23 MR#: [id number] Acct: [id number] Name: DONTAE PARRA Rep #: [id number] : 1975 Provider: JOEL naranjo Age/Sex: 48/M Location: [facility].BP Status: Signed Intake Vital Signs 10/08/23 10:58 10/11/23 13:40 11/06/23 09:59 Height 6 ft 6 ft 6 ft Weight: 226 lb BMI 30.6 BP 129/79 H Blood Pressure Location Rt brachial Position Sitting Pulse 77 Pulse Source Monitor Pulse Oximetry (%) 98 Oxygen Delivery Method room air BP Intake Visit Reasons: 4wfu Is patient in pain?: Yes (Generalized) Allergies isosorbide Allergy (Severe, Verified 11/06/23 10:04) Severe headaches amlodipine Adverse Reaction (Intermediate, Verified 11/06/23 10:04) Severe headache Medications ???Medication ???Instructions ???Recorded ???Confirmed ???Type albuterol sulfate 2.5 mg/3 mL 2.5 mg inhalation Q4H PRN 05/22/22 11/06/23 History (0.083 %) solution for nebulization shortness of breath or wheezing albuterol sulfate 90 mcg/actuation 2 puff inhalation Q4H PRN 05/22/22 11/06/23 History aerosol inhaler shortness of breath or wheezing aspirin 81 mg tablet,delayed 81 mg PO DAILY 05/22/22 11/06/23 History release clopidogrel 75 mg tablet 75 mg PO DAILY 05/22/22 11/06/23 History magnesium oxide 250 mg PO DAILY 05/22/22 11/06/23 History omeprazole 40 mg capsule,delayed 40 mg PO DAILY 05/22/22 11/06/23 History release rosuvastatin 10 mg tablet 10 mg PO DAILY 05/22/22 11/06/23 History carvedilol phosphate 20 mg 20 mg PO DAILY 06/15/22 11/06/23 History capsule,ext.[id number] hr multiphase montelukast 10 mg tablet 10 mg PO QPM #90 tabs 01/08/23 11/06/23 Rx budesonide 0.5 mg/2 mL suspension 0.5 mg inhalation 01/24/23 11/06/23 History for nebulization potassium chloride 20 mEq 20 meq PO DAILY 01/24/23 11/06/23 History tablet,extended release(part/cryst) hydrochlorothiazide 25 mg tablet 25 mg PO DAILY #30 tabs 05/25/23 11/06/23 Rx nitroglycerin 0.4 mg sublingual 0.4 mg sublingual Q5-15M 09/17/23 11/06/23 History tablet ranolazine 500 mg tablet,extended 500 mg PO BID #60 tabs 09/17/23 11/06/23 Rx release,12 hr benralizumab 30 mg/mL subcutaneous 30 mg subcut Q8W #1 mL 09/19/23 11/06/23 Rx auto-injector (Fasenra Pen) bupropion HCl (smoking deter) 150 150 mg PO BID #60 tabs 11/06/23 11/06/23 Rx mg tablet,12 hr sustained-release(smo usha deterrent) prazosin 2 mg capsule 2 mg PO QHS #30 caps 11/06/23 11/06/23 Rx trazodone 50 mg tablet 50 mg PO QHS PRN insomnia #30 tabs 11/06/23 11/06/23 Rx Nurse's Note: Stopped lexapro d/t interaction with blood thinner and bupropion. Pt unaware of who initially prescribed lexapro. [facility] Medical History Mild sleep apnea Chronic cough Nicotine dependence Family history of ischemic heart disease and other diseases of the circulatory system Presence of stent in coronary artery ( 02/01/22) Old myocardial infarction Primary snoring Nicotine addiction Hemoptysis Nicotine dependence, cigarettes, uncomplicated Abdominal distension (gaseous) Unspecified systolic (congestive) heart failure Hyperlipidemia Atherosclerosis of coronary artery of [place] heart without angina pectoris Chest pain Noncompliance with medications Essential hypertension Stroke Pneumonia GERD (gastroesophageal reflux disease) COPD (chronic obstructive pulmonary disease) Depression Anxiety Asthma Emphysema, unspecified CAD (coronary artery disease) 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 Heart disease Myocardial infarction Grandfather Cancer Lung Fibromyalgia Father Cancer Social History Smoking Status: Current every day smoker tobacco type: cigarettes alcohol intake: never substance use type: does not use caffeine: Yes Type: coffee Number of servings: 3 HPI History of Present Illness History provided by: patient HPI: Dontae Parra is a 48 year old male patient presenting today for a follow up evaluation. Did feel he was tired all the time and was nauseous and throwing up while he was taking escitalopram. Patient has discontinued use of escitalopram since seeing someone in pulmonology who recommended he discontinued use. Still is struggling with feelin (more content not included)... Normal [facility] Office Visit Reporton 2023 Office Visit Report [facility] [address] [place] [address] OFFICE VISIT Date of Service: 10/11/23 MR#: [id number] Acct: [id number] Patient: DONTAE PARRA Rep #: [id number] : 1975 Provider: JOEL Fuchs Age/Sex: 48/M Location: [facility] Status: Signed Intake Vital Signs 10/08/23 10:58 10/11/23 13:40 10/11/23 14:15 10/11/23 14:54 10/11/23 15:37 Height 6 ft 6 ft Weight: 221 lb BMI 29.9 BP 121/76 H 128/83 H 117/72 116/65 119/70 Blood Pressure Location Rt brachial Rt brachial Rt brachial Rt brachial Rt brachial Position Sitting Sitting Sitting Sitting Sitting Respiration 18 18 18 18 Pulse 79 73 79 74 73 Pulse Source Monitor Monitor Monitor Monitor Monitor Temp 97.4 F L 97.5 F L 97.8 F 97.2 F L Temp Source Temporal Temporal Temporal Temporal Pulse Oximetry (%) 95 97 95 96 Oxygen Delivery Method room air room air room air room air Intake Visit Reasons: Asthma follow-up Senior Maintenance Mechanic Required: No Accompanied by: Self Is patient in pain?: No Allergies isosorbide Allergy (Severe, Verified 10/11/23 13:42) Severe headaches amlodipine Adverse Reaction (Intermediate, Verified 10/11/23 13:42) Severe headache Medications ???Medication ???Instructions ???Recorded ???Confirmed ???Type albuterol sulfate 2.5 mg/3 mL 2.5 mg inhalation Q4H PRN 05/22/22 10/11/23 History (0.083 %) solution for nebulization shortness of breath or wheezing albuterol sulfate 90 mcg/actuation 2 puff inhalation Q4H PRN 05/22/22 10/11/23 History aerosol inhaler shortness of breath or wheezing aspirin 81 mg tablet,delayed 81 mg PO DAILY 05/22/22 10/11/23 History release clopidogrel 75 mg tablet 75 mg PO DAILY 05/22/22 10/11/23 History magnesium oxide 250 mg PO DAILY 05/22/22 10/11/23 History omeprazole 40 mg capsule,delayed 40 mg PO DAILY 05/22/22 10/11/23 History release rosuvastatin 10 mg tablet 10 mg PO DAILY 05/22/22 10/11/23 History carvedilol phosphate 20 mg 20 mg PO DAILY 06/15/22 10/11/23 History capsule,ext.[id number] hr multiphase montelukast 10 mg tablet 10 mg PO QPM #90 tabs 01/08/23 10/11/23 Rx budesonide 0.5 mg/2 mL suspension 0.5 mg inhalation 01/24/23 10/11/23 History for nebulization potassium chloride 20 mEq 20 meq PO DAILY 01/24/23 10/11/23 History tablet,extended release(part/cryst) hydrochlorothiazide 25 mg tablet 25 mg PO DAILY #30 tabs 05/25/23 10/11/23 Rx prazosin 1 mg capsule 1 mg PO QHS #30 caps 09/10/23 10/11/23 Rx trazodone 50 mg tablet 50 mg PO QHS PRN insomnia #30 tabs 09/10/23 10/11/23 Rx bupropion HCl (smoking deter) 150 150 mg PO BID 09/17/23 10/11/23 History mg tablet,12 hr sustained-release(smo usha deterrent) nitroglycerin 0.4 mg sublingual 0.4 mg sublingual Q5-15M 09/17/23 10/11/23 History tablet ranolazine 500 mg tablet,extended 500 mg PO BID #60 tabs 09/17/23 10/11/23 Rx release,12 hr benralizumab 30 mg/mL subcutaneous 30 mg subcut Q8W #1 mL 09/19/23 10/11/23 Rx auto-injector (Fasenra Pen) escitalopram oxalate 5 mg tablet 5 mg PO QDAY 10/08/23 10/11/23 History Have you fallen in the past year?: No Office Procedures Asthma Injection Procedure: Details:: Patient presented for Fasenra injection. Patient tolerated treatment well. The patient was monitored for 120 minutes after treatment. Patient shows no signs of adverse reaction. Reviewed signs and symptoms of reaction. Patient instructed to call the office with new or worsening symptoms. Patient advised to report to the emergency department during after hours if necessary. Patient departed from the office with no signs of distress. patient was instructed and demonstrated how to safely/properly administer medication to do home injections. voiced understanding. Injections Medication Given: Yes Is this a patient provided medication?: Yes Office Meds benralizumab 30 mg/mL subcutaneous syringe Performing Provider: Frances Fuchs CORPORATE TRAVEL MANAGER, CORPORATE TRAVEL MANAGER-C Performing Location: [facility] Administered by: Chely Yang on 10/11/23 14:05 Dose Route Admin Location Dispensed Lot Number Expiration Date NDC Man ufacturer 30 mg subcut right arm 1 mL [id number] 10/20/25 0289-2991-72 [employer] Assessment and Plan Assessment and Plan (1) Asthma: Orders: Orders Fasenra Injection Today D72.10 - Eosinophilia, unspecified Clinical Quality Measures Falls Risk Screening/Assistive Devices Have you fallen in the past year?: No 10/11/23 1546 Date Frances Gillespie Signature: Date (if applicable) CC: Normal [facility] MR/BMS.BPon 10-08-2023 MR/BMS.BP [place] [address], [address] [place] [id number] OFFICE VISIT Date of Service: 10/08/23 MR#: [id number] Acct: [id number] Name: DONTAE PARRA Rep #: [id number] : 1975 Provider: JOEL naranjo Age/Sex: 48/M Location: [facility].BP Status: Signed Intake Vital Signs 09/10/23 11:14 09/19/23 07:37 10/08/23 10:56 10/08/23 10:58 Height 6 ft 6 ft 6 ft 6 ft Weight: 225 lb BMI 30.5 BP 128/85 H 121/76 H Blood Pressure Location Lt brachial Rt brachial Position Sitting Sitting Respiration 16 Pulse 71 79 Pulse Source Monitor Monitor Temp 97.3 F L Temperature Source Temporal Artery Pulse Oximetry (%) 95 Oxygen Delivery Method room air BP Intake Visit Reasons: 1 M FU Senior Maintenance Mechanic Required: No Accompanied by: Self Is patient in pain?: No Allergies isosorbide Allergy (Severe, Verified 10/08/23 10:59) Severe headaches amlodipine Adverse Reaction (Intermediate, Verified 10/08/23 10:59) Severe headache Medications ???Medication ???Instructions ???Recorded ???Confirmed ???Type albuterol sulfate 2.5 mg/3 mL 2.5 mg inhalation Q4H PRN 05/22/22 10/08/23 History (0.083 %) solution for nebulization shortness of breath or wheezing albuterol sulfate 90 mcg/actuation 2 puff inhalation Q4H PRN 05/22/22 10/08/23 History aerosol inhaler shortness of breath or wheezing aspirin 81 mg tablet,delayed 81 mg PO DAILY 05/22/22 10/08/23 History release clopidogrel 75 mg tablet 75 mg PO DAILY 05/22/22 10/08/23 History magnesium oxide 250 mg PO DAILY 05/22/22 10/08/23 History omeprazole 40 mg capsule,delayed 40 mg PO DAILY 05/22/22 10/08/23 History release rosuvastatin 10 mg tablet 10 mg PO DAILY 05/22/22 10/08/23 History carvedilol phosphate 20 mg 20 mg PO DAILY 06/15/22 10/08/23 History capsule,ext.[id number] hr multiphase montelukast 10 mg tablet 10 mg PO QPM #90 tabs 01/08/23 10/08/23 Rx budesonide 0.5 mg/2 mL suspension 0.5 mg inhalation 01/24/23 10/08/23 History for nebulization potassium chloride 20 mEq 20 meq PO DAILY 01/24/23 10/08/23 History tablet,extended release(part/cryst) hydrochlorothiazide 25 mg tablet 25 mg PO DAILY #30 tabs 05/25/23 10/08/23 Rx prazosin 1 mg capsule 1 mg PO QHS #30 caps 09/10/23 10/08/23 Rx trazodone 50 mg tablet 50 mg PO QHS PRN insomnia #30 tabs 09/10/23 10/08/23 Rx bupropion HCl (smoking deter) 150 150 mg PO BID 09/17/23 10/08/23 History mg tablet,12 hr sustained-release(smo usha deterrent) nitroglycerin 0.4 mg sublingual 0.4 mg sublingual Q5-15M 09/17/23 10/08/23 History tablet ranolazine 500 mg tablet,extended 500 mg PO BID #60 tabs 09/17/23 10/08/23 Rx release,12 hr benralizumab 30 mg/mL subcutaneous 30 mg subcut Q8W #1 mL 09/19/23 10/08/23 Rx auto-injector (Fasenra Pen) escitalopram oxalate 5 mg tablet 5 mg PO QDAY 10/08/23 10/08/23 History Current gender identity: male Nurse's Note: Presents to the office today for follow up. [facility] Medical History Mild sleep apnea Chronic cough Nicotine dependence Family history of ischemic heart disease and other diseases of the circulatory system Presence of stent in coronary artery ( 02/01/22) Old myocardial infarction Primary snoring Nicotine addiction Hemoptysis Nicotine dependence, cigarettes, uncomplicated Abdominal distension (gaseous) Unspecified systolic (congestive) heart failure Hyperlipidemia Atherosclerosis of coronary artery of [place] heart without angina pectoris Chest pain Noncompliance with medications Essential hypertension Stroke Pneumonia GERD (gastroesophageal reflux disease) COPD (chronic obstructive pulmonary disease) Depression Anxiety Asthma Emphysema, unspecified CAD (coronary artery disease) 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 Heart disease Myocardial infarction Grandfather Cancer Lung Fibromyalgia Father Cancer Social History Smoking Status: Current every day smoker tobacco type: cigarettes alcohol intake: never substance use type: does not use caffeine: Yes Type: coffee Number of servings: 3 HPI History of Present Illness History provided by: patient HPI: Dontae Parra is a 48 year old male patient presenting today for a follow up evaluation. Feels sleep is hit or miss. Feels average is still the same and is get (more content not included)... Normal [facility] CBC W/Diff, Automatedon 08-21 Absolute Lymph 2.65 X10 3/uL Normal 0.83-4.51 [facility] Comment on above: Performed By: #### L 100.0100 #### [facility] [address] [place], [address] Absolute Neut 7.7 X10 3/uL Normal 2.0-7.7 [facility] Comment on above: Performed By: #### L 100.0100 #### [facility] [address] [place], [address] Basophils/100 WBC (Bld) 0.5 % Normal 0-1 [facility] Comment on above: Performed By: #### L 100.0100 #### [facility] [address] [place], [address] Eosinophils/100 WBC (Bld) 2.2 % Normal 0-5 [facility] Comment on above: Performed By: #### L 100.0100 #### [facility] [address] [place], [address] Erythrocyte distribution width (RBC) [Ratio] 13.4 % Normal 11.6-14.6 [facility] Comment on above: Performed By: #### L 100.0100 #### [facility] [address] [place], [address] Hematocrit (Bld) [Volume fraction] 46.3 % Normal 40-54 [facility] Comment on above: Performed By: #### L 100.0100 #### [facility] [address] [place], [address] Hemoglobin (Bld) [Mass/Vol] 15.8 g/dL Normal 13.0-16.5 [facility] Comment on above: Performed By: #### L 100.0100 #### [facility] [address] [place], [address] IG% 0.300 Normal 0.0-0.9 [facility] Comment on above: Result Comment: IG% - Immature Granulocytes (promyelocytes, myelocytes and metamyelocytes) > 1% indicates that a LEFT SHIFT is Present. Performed By: #### L 100.0100 #### [facility] [address] [place], [address] Lymphocytes/100 WBC (Bld) 22.9 % Normal 19-41 [facility] Comment on above: Performed By: #### L 100.0100 #### [facility] [address] [place], [address] MCH (RBC) [Entitic mass] 30.6 pg Normal 27.0-32.0 [facility] Comment on above: Performed By: #### L 100.0100 #### [facility] [address] [place], [address] MCHC (RBC) [Mass/Vol] 34.1 g/dL Normal 32-36 [facility] Comment on above: Performed By: #### L 100.0100 #### [facility] [address] [place], [address] MCV (RBC) [Entitic vol] 89.6 fL Normal 80-94 [facility] Comment on above: Performed By: #### L 100.0100 #### [facility] [address] [place], [address] Monocytes/100 WBC (Bld) 7.9 % Normal 0-10 [facility] Comment on above: Performed By: #### L 100.0100 #### [facility] [address] [place], [address] Neutrophils/100 WBC (Bld) 66.2 % Normal 47-70 [facility] Comment on above: Performed By: #### L 100.0100 #### [facility] [address] [place], [address] Nucleated RBC (Bld) [#/Vol] 0 10*3/uL Normal 0-5 [facility] Comment on above: Performed By: #### L 100.0100 #### [facility] [address] [place], [address] Platelet mean volume (Bld) [Entitic vol] 8.2 fL Normal 6.2-12.0 [facility] Comment on above: Performed By: #### L 100.0100 #### [facility] [address] [place], [address] Platelets (Bld) [#/Vol] 306 10*3/uL Normal 150-450 [facility] Comment on above: Performed By: #### L 100.0100 #### [facility] [address] [place], [address] RBC (Bld) [#/Vol] 5.17 10*6/uL Normal 4.6-6.2 [facility] Comment on above: Performed By: #### L 100.0100 #### [facility] [address] [place], [address] RDW SD 43.7 fl Normal 35.1-43.9 [facility] Comment on above: Performed By: #### L 100.0100 #### [facility] [address] [place], [address] WBC (Bld) [#/Vol] 11.6 10*3/uL High 4.4-11.0 [facility] Comment on above: Performed By: #### L 100.0100 #### [facility] [address] [place], [address] Pulmonary Visit Reporton Pulmonary Visit Report [facility] [place] [address] [place], [place] [address] OFFICE VISIT Date of Service: 09/19/23 MR#: [id number] Acct: [id number] Name: PARRADONTAE Angela MARVA Rep #: [id number] : 1975 Provider: JOEL Fuchs Age/Sex: 48/M Location: [facility] Status: Signed Assessment and Plan Assessment and Plan (1) COPD (chronic obstructive pulmonary disease): Status: Chronic Qualifiers: COPD type: emphysema Emphysema type: unspecified Qualified Code(s): J43.9 - Emphysema, unspecified Plan: On triple therapy. Not ordering antibiotics or steroids today. Will proceed with trying to optimize his care by placing him on Fasenra for severe asthma overlap syndrome. Follow-up in 3 [facility] to evaluate response to therapy. (2) Nicotine dependence, cigarettes, uncomplicated: Status: Chronic Plan: Encourage complete smoking cessation. 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 (4) Eosinophilia: Status: Acute Qualifiers: Eosinophilia type: unspecified eosinophilia Qualified Code(s): D72.10 - Eosinophilia, unspecified Comment: Total eosinophil count 255.2 Plan: Likely the cause of the chronic cough. Blood work today reveals elevated eosinophil count at 255.2. I believe the patient would benefit from a biologic to reduce the number of eosinophils. Beginning the process to have the patient approved for Fasenra. He is agreeable with this plan. Follow-up in the office in 3 months to evaluate his response to therapy. Orders: Orders CBC W/Diff, Automated Today R05.3 - Chronic cough Medications: New benralizumab (Fasenra Pen) 30 mg subcut Q8W 1 mL 6RF D72.10 - Eosinophilia, unspecified benralizumab (Fasenra Pen) x3 doses for loading 30 mg subcut Q4W 1 mL 0RF D72.10 - Eosinophilia, unspecified Plan Details Follow Up: 3 Months ([facility]) HPI 6 M FU Chief Complaint: Routine follow-up HPI Comments Details: This patient presents to the office today for follow-up of his COPD. He is ambulatory and currently on room air. He has not recently been seen in the ED or urgent care for any respiratory illness. Has not required any antibiotics or prednisone for any breathing problems. He reports that his primary care doctor recently put him back on Breztri. He started Breztri 2 days ago. He is compliant with 2 puffs twice daily. He does report rinsing his mouth out after each use. He does not believe he has any medication side effect such as sore throat or thrush. He is also compliant with Singulair daily. He is using albuterol rescue inhaler frequently daily. He continues to experience a persistent dry cough. He cannot describe any particular trigger that causes the cough. The cough occurs several times throughout the day. Sometimes it is so severe it causes him to gag and at times even vomit. He denies any difficulty with chest tightness or chest pain. He does have occasional wheezing. He also notices shortness of breath. He denies any fever, chills or body aches. He reports that his symptoms are so problematic that it causes him difficulty in being able to run and enjoy my children. Test results personally with patient: Walking oximetry completed on April 25, 2023. Patient was able to ambulate total of 710 feet over the course of 6 minutes. He did not become hypoxic and does not currently require any supplemental oxygen. Intake Vital Signs 03/21/23 06:21 09/17/23 08:37 09/19/23 07:37 Height 6 ft 6 ft 6 ft Weight: 225 lb BMI 30.5 BP 128/85 H Blood Pressure Location Lt brachial Position Sitting Respiration 16 Pulse 71 Pulse Source Monitor Temp 97.3 F L Temperature Source Temporal Artery Pulse Oximetry (%) 95 Oxygen Delivery Method room air Intake Visit Reasons: 6 M FU Chief Complaint: Routine FU Senior Maintenance Mechanic Required: No DME Vendor: ANA CRISTINA Accompanied by: Self Is patient in pain?: No Allergies isosorbide Allergy (Severe, Verified 09/19/23 08:48) Severe headaches amlodipine Adverse Reaction (Intermediate, Verified 09/19/23 08:48) Severe headache Medications ???Medication ???Instructions ???Recorded ???Confirmed ???Type albuterol sulfate 2.5 mg/3 mL 2.5 mg inhalation Q4H PRN 05/22/22 09/19/23 History (0.083 %) solution for nebulization shortness of breath or wheezing albuterol sulfate 90 mcg/actuation 2 puff inhalation Q4H PRN 05/22/22 09/19/23 History aerosol inhaler shortness of breath or wheezing aspirin 81 mg tablet,delayed 81 mg PO DAILY 05/22/22 09/19/23 History release clopidogrel 75 mg tablet 75 mg PO DAILY 05/22/22 09/19/23 History magnesium oxide 250 mg PO DAILY 05/22/22 09/19/23 History omeprazole 40 mg capsule,delayed 40 mg PO DAILY 05/22/22 09/19/23 History release rosuvastatin 10 mg t (more content not included)... Normal [facility] Cardiology Visit Reporton Cardiology Visit Report [facility] [address] [place] [address] OFFICE VISIT Date of Service: 09/17/23 MR#: [id number] Acct: [id number] Name: DONTAE PARRA Rep #: [id number] : 1975 Provider: JOEL delcid Age/Sex: 48/M Location: [facility] Status: Signed [facility] History of Present Illness Details: This is a 48-year-old male who presents the office today for a cardiovascular outpatient follow-up. He has an extensive history of coronary artery disease with multiple percutaneous interventions. He has had stents placed to his LAD, ramus intermedius and right coronary artery. Echocardiogram on 07/18/2022 showed ejection fraction of 55% and no significant valvular abnormalities. Heart catheterization on 09/25/2022 showed patent stents and no high-grade stenosis. Ejection fraction was preserved at 60%. He also has a past medical history of hypertension, hyperlipidemia, COPD, tobacco abuse, and PTSD. He acknowledges continuous sharp chest discomfort. This is located left side of his chest. He acknowledges palpitations that he relates to anxiety. He describes this as fast. He acknowledges bilateral lower extremity edema. He denies claudication. He acknowledges shortness of breath with activity and shortness of breath at rest. He denies orthopnea, cough, or PND. He acknowledges lightheadedness when he first stands up. He denies dizziness, near-syncope, or syncope. He continues with fatigue. Intake Vital Signs 03/01/23 13:58 04/25/23 12:47 09/10/23 11:14 09/17/23 08:35 09/17/23 08:37 Height 6 ft 6 ft 6 ft 6 ft 6 ft Weight: 222 lb BMI 30.1 BP 116/65 Blood Pressure Location Lt brachial Position Sitting Respiration 16 Pulse 67 Pulse Source NIBP Intake Visit Reasons: 6 M FU Senior Maintenance Mechanic Required: No Is patient in pain?: Yes Allergies isosorbide Allergy (Severe, Verified 09/17/23 08:46) Severe headaches amlodipine Adverse Reaction (Intermediate, Verified 09/17/23 08:46) Severe headache Medications ???Medication ???Instructions ???Recorded ???Confirmed ???Type albuterol sulfate 2.5 mg/3 mL 2.5 mg inhalation Q4H PRN 05/22/22 09/17/23 History (0.083 %) solution for nebulization shortness of breath or wheezing albuterol sulfate 90 mcg/actuation 2 puff inhalation Q4H PRN 05/22/22 09/17/23 History aerosol inhaler shortness of breath or wheezing aspirin 81 mg tablet,delayed 81 mg PO DAILY 05/22/22 09/17/23 History release clopidogrel 75 mg tablet 75 mg PO DAILY 05/22/22 09/17/23 History magnesium oxide 250 mg PO DAILY 05/22/22 09/17/23 History omeprazole 40 mg capsule,delayed 40 mg PO DAILY 05/22/22 09/17/23 History release rosuvastatin 10 mg tablet 10 mg PO DAILY 05/22/22 09/17/23 History carvedilol phosphate 20 mg 20 mg PO DAILY 06/15/22 09/17/23 History capsule,[id number] hr multiphase montelukast 10 mg tablet 10 mg PO QPM #90 tabs 01/08/23 09/17/23 Rx budesonide-formoterol HFA 160 2 puff inhalation BID #1 ea 01/22/23 09/17/23 Rx mcg-4.5 mcg/actuation aerosol inhaler (Symbicort) tiotropium bromide 2.5 2 inh inhalation QDAY #1 ea 01/22/23 09/17/23 Rx mcg/actuation mist for inhalation (Spiriva Respimat) budesonide 0.5 mg/2 mL suspension 0.5 mg inhalation 01/24/23 09/17/23 History for nebulization potassium chloride 20 mEq 20 meq PO DAILY 01/24/23 09/17/23 History tablet,extended release(part/cryst) hydrochlorothiazide 25 mg tablet 25 mg PO DAILY #30 tabs 05/25/23 09/17/23 Rx prazosin 1 mg capsule 1 mg PO QHS #30 caps 09/10/23 09/17/23 Rx trazodone 50 mg tablet 50 mg PO QHS PRN insomnia #30 tabs 09/10/23 09/17/23 Rx bupropion HCl (smoking deter) 150 150 mg PO BID 09/17/23 09/17/23 History mg tablet,12 hr sustained-release(smo usha deterrent) nitroglycerin 0.4 mg sublingual 0.4 mg sublingual Q5-15M 09/17/23 09/17/23 History tablet ranolazine 500 mg tablet,extended 500 mg PO BID #60 tabs 09/17/23 09/17/23 Rx release,12 hr Ejection fraction %: 55 Have you fallen in the past year?: No PFSH Medical History Mild sleep apnea Chronic cough Nicotine dependence Family history of ischemic heart disease and other diseases of the circulatory system Presence of stent in coronary artery ( 02/01/22) Old myocardial infarction Primary snoring Nicotine addiction Hemoptysis Nicotine dependence, cigarettes, uncomplicated Abdominal distension (gaseous) Unspecified systolic (congestive) heart failure Hyperlipidemia Atherosclerosis of coronary artery of [place] heart without angina pectoris Chest pain Noncompliance with medications Essential hypertension Stroke Pneumonia GERD (gastroesophageal reflux disease) COPD (chronic obstructive pulmonary disease) Depression Anxiety Asthma Emp (more content not included)... Normal [facility] MR/BMS.BPon 09-10-2023 MR/BMS.BP [address], [address] [place] [address] OFFICE VISIT Date of Service: 09/10/23 MR#: [id number] Acct: [id number] Name: DONTAE PARRA Rep #: [id number] : 1975 Provider: JOEL naranjo Age/Sex: 48/M Location: 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 Accompanied by: Self Is patient in pain?: No Allergies amlodipine Adverse Reaction (Intermediate, Verified 09/10/23 11:14) Severe headache Medications ???Medication ???Instructions ???Recorded ???Confirmed ???Type albuterol sulfate 2.5 mg/3 mL 2.5 mg inhalation Q4H PRN 05/22/22 09/10/23 History (0.083 %) solution for nebulization shortness of breath or wheezing albuterol sulfate 90 mcg/actuation 2 puff inhalation Q4H PRN 05/22/22 09/10/23 History aerosol inhaler shortness of breath or wheezing aspirin 81 mg tablet,delayed 81 mg PO DAILY 05/22/22 09/10/23 History release clopidogrel 75 mg tablet 75 mg PO DAILY 05/22/22 09/10/23 History magnesium oxide 250 mg PO DAILY 05/22/22 09/10/23 History omeprazole 40 mg capsule,delayed 40 mg PO DAILY 05/22/22 09/10/23 History release rosuvastatin 10 mg tablet 10 mg PO DAILY 05/22/22 09/10/23 History carvedilol phosphate 20 mg 20 mg PO DAILY 06/15/22 09/10/23 History capsule,[id number] hr multiphase montelukast 10 mg tablet 10 mg PO QPM #90 tabs 01/08/23 09/10/23 Rx budesonide-formoterol HFA 160 2 puff inhalation BID #1 ea 01/22/23 09/10/23 Rx mcg-4.5 mcg/actuation aerosol inhaler (Symbicort) tiotropium bromide 2.5 2 inh inhalation QDAY #1 ea 01/22/23 09/10/23 Rx mcg/actuation mist for inhalation (Spiriva Respimat) isosorbide mononitrate 30 mg 30 mg PO DAILY #30 tabs 01/23/23 09/10/23 Rx tablet,extended release 24 hr budesonide 0.5 mg/2 mL suspension 0.5 mg inhalation 01/24/23 09/10/23 History for nebulization potassium chloride 20 mEq 20 meq PO DAILY 01/24/23 09/10/23 History tablet,extended release(part/cryst) bupropion HCl (smoking deter) 150 150 mg PO DAILY 03/01/23 09/10/23 History mg tablet,12 hr sustained-release(smo usha deterrent) hydrochlorothiazide 25 mg tablet 25 mg PO DAILY #30 tabs 05/25/23 09/10/23 Rx prazosin 1 mg capsule 1 mg PO QHS #30 caps 09/10/23 09/10/23 Rx trazodone 50 mg tablet 50 mg PO QHS PRN insomnia #30 tabs 09/10/23 09/10/23 Rx Current gender identity: male Nurse's Note: Presents to the office today to establish new patient care. [facility] Medical History Mild sleep apnea Chronic cough Nicotine dependence Family history of ischemic heart disease and other diseases of the circulatory system Presence of stent in coronary artery ( 02/01/22) Old myocardial infarction Primary snoring Nicotine addiction Hemoptysis Nicotine dependence, cigarettes, uncomplicated Abdominal distension (gaseous) Unspecified systolic (congestive) heart failure Hyperlipidemia Atherosclerosis of coronary artery of [place] heart without angina pectoris Chest pain Noncompliance with medications Essential hypertension Stroke Pneumonia GERD (gastroesophageal reflux disease) COPD (chronic obstructive pulmonary disease) Depression Anxiety Asthma Emphysema, unspecified CAD (coronary artery disease) 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 Heart disease Myocardial infarction Grandfather Cancer Lung Fibromyalgia Father Cancer Social History Smoking Status: Current every day smoker tobacco type: cigarettes alcohol intake: never substance use type: does not use caffeine: Yes (1-3) HPI History of Present Illness History provided by: patient Chief complaint: PTSD HPI: Dontae Parra is a 48 year old male patient presenting today for an intake evaluation. Is struggling with sleep and has a nightmare every night. Feels his health is deteriorating and will cough until he passes out and can't work because of this. Sleep: Struggles to sleep due to nightmares. Is getting 2-3 hours per night. Denies napping. Is able to fall asleep asleep but unab (more content not included)... Normal [facility] Absolute lymphocyte countOrd ered By: Jose R Schmitz on 01-24-2023 Lymphocytes Auto (Unsp spec) [#/Vol] 2.62 10*3/uL 0.83-4.51 [facility] Basophil percentageOrdered B y: Jose R Schmitz on 01-24-2023 Basophils/100 WBC (Bld) 0.4 % 0-1 [facility] Bilirubin [Mass/Vol] 0.50 mg/dL 0.20-1.00 [facility] Comment on above: For patients on eltr ombopag therapy, use of Dimension Mantador TBIL is not recommended. Chloride [Moles/Vol] 105 mmol/L 98-107 [facility] Eosinophils/100 WBC (Bld) 2.0 % 0-5 [facility] Glucose [Mass/Vol] 119 mg/dL 74-106 [facility] Comment on above: Fasting Glucose resu lt from 100 to 125 mg/dL suggests IMPAIRED HOMEOSTASIS per A.D.A. criteria. Neutrophils (Bld) [#/Vol] 7.3 10*3/uL 2.0-7.7 [facility] Neutrophils/100 WBC (Bld) 66.4 % 47-70 [facility] Potassium [Moles/Vol] 4.1 mmol/L 3.5-5.1 [facility] Comment on above: Moderate Hemolysis, Result may be falsely increased. Protein [Mass/Vol] 7.6 g/dL 6.4-8.2 [facility] Sodium [Moles/Vol] 138 mmol/L 136-145 [facility] WBC (Bld) [#/Vol] 11.0 10*3/uL 4.4-11.0 [facility] Blood erythrocytes count (nu mber/volume)Ordered By: Jose R Schmitz on 01-24-2023 RBC (Bld) [#/Vol] 4.83 10*6/uL 4.6-6.2 [facility] Blood hemoglobin measurement (mass/volume)Ordered By: Jose R Schmitz on 01-24-2023 Hemoglobin (Bld) [Mass/Vol] 14.9 g/dL 13.0-16.5 [facility] Blood lymphocytes/100 leukoc ytesOrdered By: Jose R Schmitz on 01-24-2023 Lymphocytes/100 WBC (Bld) 23.9 % 19-41 [facility] Blood manual differential co mment interpretation (narrative result)Ordered By: Jose R Schmitz on 01-24-2023 Manual differential comment Nakul (Bld) [Interp] SCANNED [facility] Blood monocytes/100 leukocyt esOrdered By: Jose R Schmitz on 01-24-2023 Monocytes/100 WBC (Bld) 6.8 % 0-10 [facility] Blood platelet adequacy dete ction by light microscopyOrdered By: Jose R Schmitz on 01-24-2023 Platelets LM Ql (Bld) ADEQUATE ADEQ [facility] Blood platelet mean volumeOr dered By: Jose R Schmitz on 01-24-2023 Platelet mean volume (Bld) [Entitic vol] 9.4 fL 6.2-12.0 [facility] Determination of erythrocyte mean corpuscular volume (MCV)Ordered By: Jose R Schmitz on 01-24-2023 MCV (RBC) [Entitic vol] 90.5 fL 80-94 [facility] Direct bilirubinOrdered By: Jose R Schmitz on 01-24-2023 Bilirubin.direct [Mass/Vol] 0.07 mg/dL 0.00-0.30 [facility] Hematocrit Auto (Bld) [Volum e fraction]Ordered By: Jose R Schmitz on 01-24-2023 Hematocrit (Bld) [Volume fraction] 43.7 % 40-54 [facility] INR in Blood by Coagulation assayOrdered By: Jose R Schmitz on 01-24-2023 INR Coag (Bld) [Relative time] 0.9 {INR} [facility] - Chemistry and C hemistry - challengeOrdered By: Jose R Schmitz on 01-24-2023 ALP [Catalytic activity/Vol] 96 U/L 45-117 [facility] ALT [Catalytic activity/Vol] 21 U/L 16-61 [facility] CO2 [Moles/Vol] 25.0 mmol/L 21.0-32.0 [facility] Globulin (S) [Mass/Vol] 4.0 g/dL 2.2-4.2 [facility] Lipase [Catalytic activity/Vol] 38 U/L 13-75 [facility] Comment on above: Please note:LIPASE r evised reference range effective 22. New Lipase methodology. Expected to produce lower values than the previous assay method. NEW Reference Range: 13 - 75 U/L Urea nitrogen/Creatinine [Mass ratio] 15.5 mg/mg 10-20 [facility] - CoagulationOrde red By: Jose R Schmitz on 01-24-2023 aPTT Coag (Bld) [Time] 24.4 s 24.1-36.2 [facility] PT Coag (PPP) [Time] 12.0 s 11.7-14.9 [facility] - Hematology and Cell countsOrdered By: Jose R Schmitz on 01-24-2023 Erythrocyte distribution width (RBC) [Entitic vol] 42.6 fL 35.1-43.9 [facility] Erythrocyte distribution width (RBC) [Ratio] 13.0 % 11.6-14.6 [facility] Immature granulocytes/100 WBC (Bld) 0.500 % 0.0-0.9 [facility] Comment on above: IG% - Immature Granu locytes (promyelocytes, myelocytes and metamyelocytes) > 1% indicates that a LEFT SHIFT is Present. MCH (RBC) [Entitic mass] 30.8 pg 27.0-32.0 [facility] Nucleated RBC/100 WBC (Bld) [Ratio] 0 % 0-5 [facility] MCHC Auto (RBC) [Mass/Vol]Or dered By: Jose R Schmitz on 01-24-2023 MCHC (RBC) [Mass/Vol] 34.1 g/dL 32-36 [facility] No Panel InformationOrdered By: Jose R Schmitz on 01-24-2023 Estimated Creatinine Clearance Calc 85.48 ml/min [facility] Estimated GFR (MDRD) Amer 86 mL/min >60 [facility] Comment on above: GFR Calc Estimated GFR (MDRD) Non-Af Amer 71 mL/min >60 [facility] Comment on above: Non- GFR Calc Troponin I High Sensitivity 4 pg/mL 3.0-78.0 [facility] Comment on above: Please Note: New Rajni t Units and Gender Specific Reference Ranges. For more information see Policy Stat Procedure [facility] High Sensitivity Troponin (TNIH) and attachments. Platelets bldOrdered By: Alireza Schmitz on 01-24-2023 Platelets (Bld) [#/Vol] 274 10*3/uL 150-450 [facility] Serum or plasma albumin sherwin urement (mass/volume)Ordered By: Jose R Schmitz on 01-24-2023 Albumin [Mass/Vol] 3.6 g/dL 3.2-5.0 [facility] Serum or plasma calcium sherwin urement (mass/volume)Ordered By: Jose R Schmitz on 01-24-2023 Calcium [Mass/Vol] 9.0 mg/dL 8.5-10.1 [facility] Serum or plasma creatinine m easurement (mass/volume)Ordered By: Jose R Schmitz on 01-24-2023 Creatinine [Mass/Vol] 1.16 mg/dL 0.70-1.30 [facility] Comment on above: The validity of the calculated GFR & GFRAA in patients over 70 years has not been determined. Clinical correlation is essential. Serum or plasma urea nitroge n measurement (mass/volume)Ordered By: Jose R Schmitz on 01-24-2023 Urea nitrogen [Mass/Vol] 18 mg/dL 7-18 [facility] Thin prep Papanicolaou smear with manual screeningOrdered By: Jose R Schmitz on 01-24-2023 Thin prep Papanicolaou smear with manual screening 22 U/L 15-37 [facility] Comment on above: Moderate Hemolysis, Result may be falsely increased. Thin prep Papanicolaou smear with manual screening 8 5-15 [facility] Absolute lymphocyte countOrd ered By: Elda Villegas on 01-22-2023 Lymphocytes Auto (Unsp spec) [#/Vol] 2.43 10*3/uL 0.83-4.51 [facility] Basophil percentageOrdered B y: Elda Villegas on 01-22-2023 Amylase [Catalytic activity/Vol] 53 U/L 25-115 [facility] Basophils/100 WBC (Bld) 0.4 % 0-1 [facility] Chloride [Moles/Vol] 108 mmol/L 98-107 [facility] Eosinophils/100 WBC (Bld) 2.3 % 0-5 [facility] Glucose [Mass/Vol] 85 mg/dL 74-106 [facility] Neutrophils (Bld) [#/Vol] 7.4 10*3/uL 2.0-7.7 [facility] Neutrophils/100 WBC (Bld) 66.5 % 47-70 [facility] Potassium [Moles/Vol] 3.9 mmol/L 3.5-5.1 [facility] Sodium [Moles/Vol] 140 mmol/L 136-145 [facility] WBC (Bld) [#/Vol] 11.1 10*3/uL 4.4-11.0 [facility] Blood erythrocytes count (nu mber/volume)Ordered By: Elda Villegas on 01-22-2023 RBC (Bld) [#/Vol] 4.81 10*6/uL 4.6-6.2 [facility] Blood hemoglobin measurement (mass/volume)Ordered By: Elda Villegas on 01-22-2023 Hemoglobin (Bld) [Mass/Vol] 14.8 g/dL 13.0-16.5 [facility] Blood lymphocytes/100 leukoc ytesOrdered By: Elda Villegas on 01-22-2023 Lymphocytes/100 WBC (Bld) 21.8 % 19-41 [facility] Blood monocytes/100 leukocyt esOrdered By: Elda Villegas on 01-22-2023 Monocytes/100 WBC (Bld) 8.6 % 0-10 [facility] Blood platelet mean volumeOr dered By: Elda Villegas on 01-22-2023 Platelet mean volume (Bld) [Entitic vol] 8.0 fL 6.2-12.0 [facility] Determination of erythrocyte mean corpuscular volume (MCV)Ordered By: Elda Villegas on 01-22-2023 MCV (RBC) [Entitic vol] 91.3 fL 80-94 [facility] Hematocrit Auto (Bld) [Volum e fraction]Ordered By: Elda Villegas on 01-22-2023 Hematocrit (Bld) [Volume fraction] 43.9 % 40-54 [facility] Laboratory - Chemistry and C hemistry - challengeOrdered By: Elda Villegas on 01-22-2023 CO2 [Moles/Vol] 27.0 mmol/L 21.0-32.0 [facility] Lipase [Catalytic activity/Vol] 33 U/L 13-75 [facility] Comment on above: Please note:LIPASE r evised reference range effective 22. New Lipase methodology. Expected to produce lower values than the previous assay method. NEW Reference Range: 13 - 75 U/L Magnesium [Mass/Vol] 2.2 mg/dL 1.6-2.6 [facility] Natriuretic peptide B (Bld) [Mass/Vol] 11.8 pg/mL 0-100 [facility] Urea nitrogen/Creatinine [Mass ratio] 12.4 mg/mg 10-20 [facility] Laboratory - Hematology and Cell countsOrdered By: Elda Villegas on 01-22-2023 Erythrocyte distribution width (RBC) [Entitic vol] 44.1 fL 35.1-43.9 [facility] Erythrocyte distribution width (RBC) [Ratio] 13.2 % 11.6-14.6 [facility] Immature granulocytes/100 WBC (Bld) 0.400 % 0.0-0.9 [facility] Comment on above: IG% - Immature Granu locytes (promyelocytes, myelocytes and metamyelocytes) > 1% indicates that a LEFT SHIFT is Present. MCH (RBC) [Entitic mass] 30.8 pg 27.0-32.0 [facility] Nucleated RBC/100 WBC (Bld) [Ratio] 0 % 0-5 [facility] MCHC Auto (RBC) [Mass/Vol]Or dered By: Elda Villegas on 01-22-2023 MCHC (RBC) [Mass/Vol] 33.7 g/dL 32-36 [facility] No Panel InformationOrdered By: Elda Villegas on 01-22-2023 D-Dimer Quantitative (PE/DVT) < 0.27 FEU/ug/m 0.27-0.49 [facility] Comment on above: NORMAL D-Dimer level (<0.50) indicates no DVT or PE. Estimated GFR (MDRD) Amer 89 mL/min >60 [facility] Comment on above: GFR Calc Estimated GFR (MDRD) Non-Af Amer 73 mL/min >60 [facility] Comment on above: Non- GFR Calc Troponin I High Sensitivity 7 pg/mL 3.0-78.0 [facility] Comment on above: Please Note: New Rajni t Units and Gender Specific Reference Ranges. For more information see Policy Stat Procedure [facility] High Sensitivity Troponin (TNIH) and attachments. Platelets bldOrdered By: Jatin Villegas on 01-22-2023 Platelets (Bld) [#/Vol] 301 10*3/uL 150-450 [facility] Serum or plasma calcium sherwin urement (mass/volume)Ordered By: Elda Villegas on 12-04-2023 Calcium [Mass/Vol] 9.2 mg/dL 8.5-10.1 [facility] Serum or plasma creatinine m easurement (mass/volume)Ordered By: Elda Villegas on 01-22-2023 Creatinine [Mass/Vol] 1.13 mg/dL 0.70-1.30 [facility] Comment on above: The validity of the calculated GFR & GFRAA in patients over 70 years has not been determined. Clinical correlation is essential. Serum or plasma urea nitroge n measurement (mass/volume)Ordered By: Elda Villegas on 01-22-2023 Urea nitrogen [Mass/Vol] 14 mg/dL 7-18 [facility] Thin prep Papanicolaou smear with manual screeningOrdered By: Elda Villegas on 01-22-2023 Thin prep Papanicolaou smear with manual screening 5 5-15 [facility] Alternaria alternata IgE ser umOrdered By: Frances Fuchs on 10-05-2022 A. alternata IgE Qn (S) <0.10 kU/L Class 0 [facility] Atypical perinuclear antineu trophil cytoplasmic antibodies measurementOrdered By: Frances Fuchs on 10-05-2022 Neutrophil cytoplasmic Ab.perinuclear.atypical IF (S) [Titer] <1:20 titer Neg:<1:20 [facility] Comment on above: The atypical pANCA p attern has been observed in asignificant percentage of patients with ulcerative colitis,primary sclerosing cholangitis and autoimmune hepatitis. Basophil percentageOrdered B y: Frances Fuchs on 10-05-2022 WBC (Bld) [#/Vol] 8.6 10*3/uL 4.4-11.0 [facility] Blood erythrocytes count (nu mber/volume)Ordered By: Frances Fuchs on 10-05-2022 RBC (Bld) [#/Vol] 4.93 10*6/uL 4.6-6.2 [facility] Blood hemoglobin measurement (mass/volume)Ordered By: Frances Fuchs on 10-05-2022 Hemoglobin (Bld) [Mass/Vol] 15.8 g/dL 13.0-16.5 [facility] Blood platelet mean volumeOr dered By: Frances Fuchs on 10-05-2022 Platelet mean volume (Bld) [Entitic vol] 8.1 fL 6.2-12.0 [facility] Determination of erythrocyte mean corpuscular volume (MCV)Ordered By: Frances Fuchs on 10-05-2022 MCV (RBC) [Entitic vol] 90.9 fL 80-94 [facility] Gram stain for investigation of transfusion reactionOrdered By: Frances Fuchs on 10-05-2022 Microscopic observation Gram stain Nom (Unsp spec) [facility] Hematocrit Auto (Bld) [Volum e fraction]Ordered By: Frances Fuchs on 10-05-2022 Hematocrit (Bld) [Volume fraction] 44.8 % 40-54 [facility] Laboratory - Hematology and Cell countsOrdered By: Frances Fuchs on 10-05-2022 Erythrocyte distribution width (RBC) [Entitic vol] 44.8 fL 35.1-43.9 [facility] Erythrocyte distribution width (RBC) [Ratio] 13.5 % 11.6-14.6 [facility] MCH (RBC) [Entitic mass] 32.0 pg 27.0-32.0 [facility] Laboratory - Miscellaneous t estsOrdered By: Frances Fuchs on 10-05-2022 Service comment (Unsp spec) [Interp] Comment . [facility] Comment on above: Levels of Specific I gE Class Description of Class ----- < 0.10 0 Negative 0.10 - 0.31 0/I Equivocal/Low 0.32 - 0.55 I Low 0.56 - 1.40 II Moderate 1.41 - 3.90 III High 3.91 - 19.00 IV Very High 19.01 - 100.00 V Very High >100.00 [facility] MCHC Auto (RBC) [Mass/Vol]Or dered By: Frances Fuchs on 10-05-2022 MCHC (RBC) [Mass/Vol] 35.3 g/dL 32-36 [facility] Microbial respiratory cultur eOrdered By: Frances Fuchs on 10-05-2022 Bacteria identified Respiratory culture Nom (Unsp spec) [facility] No Panel InformationOrdered By: Frances Fuchs on 10-05-2022 Common Ragweed (Short) Allergen <0.10 kU/L Class 0 [facility] Slovak Plantain Allergen (RAST) <0.10 kU/L Class 0 [facility] Immunoglobulin E 22 IU/mL 6-495 [facility] Comment on above: Performed at: [employer] [id number] [place], [place] [id number] Director: Trent Live PhD, Phone: [phone] at: [employer] [facility] [address] [id number] Director: Court Thorpe MD, Phone: [phone] Mouse Urine Allergen IgE Antibody <0.10 kU/L Class 0 [facility] Comment on above: Performed at: [facility] [address] [id number] Director: Court Thorpe MD, Phone: [phone] Platelets bldOrdered By: Kristin Fuchs on 10-05-2022 Platelets (Bld) [#/Vol] 279 10*3/uL 150-450 [facility] Serum Aspergillus flavus ant ibody detection by immunodiffusionOrdered By: Frances Fuchs on 10-05-2022 A. flavus Ab Immune diff Ql (S) Negative Neg:<1:1 [facility] Serum Aspergillus fumigatus antibody detection by immunodiffusionOrdered By: Frances Fuchs on 10-05-2022 A. fumigatus Ab Immune diff Ql (S) Negative Neg:<1:1 [facility] Serum Aspergillus niger anti body detection by immunodiffusionOrdered By: Frances Fuchs on 10-05-2022 A. niger Ab Immune diff Ql (S) Negative Neg:<1:1 [facility] Serum Bermuda grass IgE anti body assay (units/volume)Ordered By: Frances Fuchs on 10-05-2022 Bermuda grass IgE Qn (S) <0.10 kU/L Class 0 [facility] Serum Dermatophagoides farin ae specific IgE antibody assay (units/volume)Ordered By: Frances Fuchs on 10-05-2022 Martiniquais house dust mite IgE Qn (S) <0.10 kU/L Class 0 [facility] Serum house dust mi te IgE antibody assay (units/volume)Ordered By: Frances Fuchs on 10-05-2022 house dust mite IgE Qn (S) <0.10 kU/L Class 0 [facility] Serum [place] blue grass Ig E antibody assay (units/volume)Ordered By: Frances Fuchs on 10-05-2022 [place] blue grass IgE Qn (S) <0.10 kU/L Class 0 [facility] Serum cat dander IgE antibod y assay (units/volume)Ordered By: Frances Fuchs on 10-05-2022 Cat dander IgE Qn (S) <0.10 kU/L Class 0 [facility] Serum classic neutrophil cyt oplasmic antibody assay (units/volume)Ordered By: Frances Fuchs on 10-05-2022 Neutrophil cytoplasmic Ab.classic Qn (S) <1:20 titer Neg:<1:20 [facility] Serum dog epithelium IgE ant ibody assay (units/volume)Ordered By: Frances Fuchs on 10-05-2022 Dog epithelium IgE Qn (S) <0.10 kU/L Class 0 [facility] Serum perinuclear neutrophil cytoplasmic antibody titer by immunofluorescenceOrdered By: Frances Fuchs on 10-05-2022 Neutrophil cytoplasmic Ab.perinuclear IF (S) [Titer] <1:20 titer Neg:<1:20 [facility] Comment on above: The presence of posi tive fluorescence exhibiting P-ANCA orC-ANCA patterns alone is not specific for the diagnosis ofWegener's Granulomatosis (WG) or microscopic polyangiitis.Decisions about treatment should not be based solely onANCA IFA results. The International ANCA Group Consensusrecommends follow up testing of positive sera with both SC-3 and MPO-ANCA enzyme immunoassays. As many as 5% serumsamples are positive only by EIA. Ref. AM J Clin [id number];111:507-513. Serum white elm IgE antibody assay (units/volume)Ordered By: Frances Fuchs on 10-05-2022 White Elm IgE Qn (S) <0.10 kU/L Class 0 [facility] Serum white oak IgE antibody assay (units/volume)Ordered By: Frances Fuchs on 10-05-2022 Inkom IgE Qn (S) <0.10 kU/L Class 0 [facility] Basophil percentageOrdered B y: Dr. Olsen on 07-12-2022 Chloride [Moles/Vol] 106 mmol/L 98-107 [facility] Glucose [Mass/Vol] 98 mg/dL 74-106 [facility] Potassium [Moles/Vol] 3.4 mmol/L 3.5-5.1 [facility] Sodium [Moles/Vol] 140 mmol/L 136-145 [facility] Laboratory - Chemistry and C hemistry - challengeOrdered By: Dr. Olsen on 07-12-2022 CO2 [Moles/Vol] 27.0 mmol/L 21.0-32.0 [facility] Urea nitrogen/Creatinine [Mass ratio] 10.0 mg/mg 10-20 [facility] No Panel InformationOrdered By: Dr. Olsen on 07-12-2022 Estimated GFR (MDRD) Amer 83 mL/min >60 [facility] Comment on above: GFR Calc Estimated GFR (MDRD) Non-Af Amer 69 mL/min >60 [facility] Comment on above: Non- GFR Calc Serum or plasma calcium sherwin urement (mass/volume)Ordered By: Dr. Olsen on 07-12-2022 Calcium [Mass/Vol] 9.5 mg/dL 8.5-10.1 [facility] Serum or plasma creatinine m easurement (mass/volume)Ordered By: Dr. Olsen on 07-12-2022 Creatinine [Mass/Vol] 1.20 mg/dL 0.70-1.30 [facility] Comment on above: The validity of the calculated GFR & GFRAA in patients over 70 years has not been determined. Clinical correlation is essential. Serum or plasma urea nitroge n measurement (mass/volume)Ordered By: Dr. Olsen on 07-12-2022 Urea nitrogen [Mass/Vol] 12 mg/dL 7-18 [facility] Thin prep Papanicolaou smear with manual screeningOrdered By: Dr. Olsen on 07-12-2022 Thin prep Papanicolaou smear with manual screening 7 5-15 [facility] Absolute lymphocyte countOrd ered By: Dr. Shea on 07-10-2022 Lymphocytes Auto (Unsp spec) [#/Vol] 0.70 10*3/uL 0.83-4.51 [facility] Basophil percentageOrdered B y: Dr. Shea on 07-10-2022 Basophils/100 WBC (Bld) 0.3 % 0-1 [facility] Bilirubin [Mass/Vol] 1.30 mg/dL 0.20-1.00 [facility] Comment on above: For patients on eltr ombopag therapy, use of Dimension [facility] TBIL is not recommended. Chloride [Moles/Vol] 102 mmol/L 98-107 [facility] Eosinophils/100 WBC (Bld) 0.7 % 0-5 [facility] Glucose [Mass/Vol] 106 mg/dL 74-106 [facility] Comment on above: Fasting Glucose resu lt from 100 to 125 mg/dL suggests IMPAIRED HOMEOSTASIS per A.D.A. criteria. Neutrophils (Bld) [#/Vol] 7.6 10*3/uL 2.0-7.7 [facility] Neutrophils/100 WBC (Bld) 85.5 % 47-70 [facility] Potassium [Moles/Vol] 3.5 mmol/L 3.5-5.1 [facility] Protein [Mass/Vol] 7.5 g/dL 6.4-8.2 [facility] Sodium [Moles/Vol] 136 mmol/L 136-145 [facility] WBC (Bld) [#/Vol] 8.9 10*3/uL 4.4-11.0 [facility] Blood erythrocytes count (nu mber/volume)Ordered By: Dr. Shea on 07-10-2022 RBC (Bld) [#/Vol] 5.13 10*6/uL 4.6-6.2 [facility] Blood hemoglobin measurement (mass/volume)Ordered By: Dr. Shea on 07-10-2022 Hemoglobin (Bld) [Mass/Vol] 15.8 g/dL 13.0-16.5 [facility] Blood lymphocytes/100 leukoc ytesOrdered By: Dr. Shea on 07-10-2022 Lymphocytes/100 WBC (Bld) 7.9 % 19-41 [facility] Blood monocytes/100 leukocyt esOrdered By: Dr. Shea on 07-10-2022 Monocytes/100 WBC (Bld) 5.1 % 0-10 [facility] Blood platelet mean volumeOr dered By: Dr. Shea on 07-10-2022 Platelet mean volume (Bld) [Entitic vol] 8.2 fL 6.2-12.0 [facility] Determination of erythrocyte mean corpuscular volume (MCV)Ordered By: Dr. Shea on 07-10-2022 MCV (RBC) [Entitic vol] 90.6 fL 80-94 [facility] Direct bilirubinOrdered By: Dr. Shea on 07-10-2022 Bilirubin.direct [Mass/Vol] 0.25 mg/dL 0.00-0.30 [facility] Hematocrit Auto (Bld) [Volum e fraction]Ordered By: Dr. Shea on 07-10-2022 Hematocrit (Bld) [Volume fraction] 46.5 % 40-54 [facility] Laboratory - Chemistry and C hemistry - challengeOrdered By: Dr. Shea on 07-10-2022 ALP [Catalytic activity/Vol] 94 U/L 45-117 [facility] ALT [Catalytic activity/Vol] 32 U/L 16-61 [facility] CO2 [Moles/Vol] 27.0 mmol/L 21.0-32.0 [facility] Globulin (S) [Mass/Vol] 3.8 g/dL 2.2-4.2 [facility] Lipase [Catalytic activity/Vol] 25 U/L 13-75 [facility] Comment on above: Please note:LIPASE r evised reference range effective 22. New Lipase methodology. Expected to produce lower values than the previous assay method. NEW Reference Range: 13 - 75 U/L Urea nitrogen/Creatinine [Mass ratio] 14.0 mg/mg 10-20 [facility] Laboratory - Hematology and Cell countsOrdered By: Dr. Shea on 07-10-2022 Erythrocyte distribution width (RBC) [Entitic vol] 45.4 fL 35.1-43.9 [facility] Erythrocyte distribution width (RBC) [Ratio] 13.7 % 11.6-14.6 [facility] Immature granulocytes/100 WBC (Bld) 0.500 % 0.0-0.9 [facility] Comment on above: IG% - Immature Granu locytes (promyelocytes, myelocytes and metamyelocytes) > 1% indicates that a LEFT SHIFT is Present. MCH (RBC) [Entitic mass] 30.8 pg 27.0-32.0 [facility] Nucleated RBC/100 WBC (Bld) [Ratio] 0 % 0-5 [facility] MCHC Auto (RBC) [Mass/Vol]Or dered By: Dr. Shea on 07-10-2022 MCHC (RBC) [Mass/Vol] 34.0 g/dL 32-36 [facility] No Panel InformationOrdered By: Dr. Shea on 07-10-2022 Estimated Creatinine Clearance Calc 81.95 ml/min [facility] Estimated GFR (MDRD) Amer 82 mL/min >60 [facility] Comment on above: GFR Calc Estimated GFR (MDRD) Non-Af Amer 68 mL/min >60 [facility] Comment on above: Non- GFR Calc Troponin I High Sensitivity 3 pg/mL 3.0-78.0 [facility] Comment on above: Please Note: New Rajni t Units and Gender Specific Reference Ranges. For more information see Policy Stat Procedure [facility] High Sensitivity Troponin (TNIH) and attachments. Platelets bldOrdered By: Dr. Shea on 07-10-2022 Platelets (Bld) [#/Vol] 251 10*3/uL 150-450 [facility] Serum or plasma albumin sherwin urement (mass/volume)Ordered By: Dr. Shea on 07-10-2022 Albumin [Mass/Vol] 3.7 g/dL 3.2-5.0 [facility] Serum or plasma calcium sherwin urement (mass/volume)Ordered By: Dr. Shea on 07-10-2022 Calcium [Mass/Vol] 8.8 mg/dL 8.5-10.1 [facility] Serum or plasma creatinine m easurement (mass/volume)Ordered By: Dr. Shea on 07-10-2022 Creatinine [Mass/Vol] 1.21 mg/dL 0.70-1.30 [facility] Comment on above: The validity of the calculated GFR & GFRAA in patients over 70 years has not been determined. Clinical correlation is essential. Serum or plasma urea nitroge n measurement (mass/volume)Ordered By: Dr. hSea on 07-10-2022 Urea nitrogen [Mass/Vol] 17 mg/dL 7-18 [facility] Thin prep Papanicolaou smear with manual screeningOrdered By: Dr. Shea on 07-10-2022 Thin prep Papanicolaou smear with manual screening 19 U/L 15-37 [facility] Thin prep Papanicolaou smear with manual screening 7 5-15 [facility] Basophil percentageOrdered B y: Dr. Boyd on 06-16-2022 Creatinine [Mass/Vol] 1.0 mg/dL 0.70-1.30 [facility] No Panel InformationOrdered By: Dr. Boyd on 06-16-2022 Bedside Estimated GFR (eGFR) > 60.0000 mL/min >60 [facility] .Auto Diffon 02-01-2022 Basophil, Absolute 0.1 10 3/mcL Normal 0.0-0.3 [facility] ([place]) Comment on above: Performed By: #### P RO, GFR, BMP #### [address] [address] Basophils/100 WBC (Bld) 0.5 % Normal 0.0-2.5 [facility] ([place]) Comment on above: Performed By: #### P RO, GFR, BMP #### [address] [address] Eosinophil, Absolute 0.3 10 3/mcL Normal 0.0-0.7 [facility] ([place]) Comment on above: Performed By: #### P RO, GFR, BMP #### [address] [address] Eosinophils/100 WBC (Bld) 2.9 % Normal 0.0-6.0 [facility] ([place]) Comment on above: Performed By: #### P RO, GFR, BMP #### [address] [address] Lymphocyte, Absolute 1.9 10 3/mcL Normal 0.9-4.3 [facility] ([place]) Comment on above: Performed By: #### P RO, GFR, BMP #### [address] [address] Lymphocytes/100 WBC (Bld) 18.5 % Low 20.0-40.0 [facility] ([place]) Comment on above: Performed By: #### P RO, GFR, BMP #### [address] [address] Monocyte, Absolute 0.8 10 3/mcL Normal 0.1-1.4 [facility] ([place]) Comment on above: Performed By: #### P RO, GFR, BMP #### [address] [address] Monocytes/100 WBC (Bld) 8.0 % Normal 2.0-13.0 [facility] ([place]) Comment on above: Performed By: #### P RO, GFR, BMP #### [address] [address] Neutrophils/100 WBC (Bld) 70.1 % Normal 50.0-75.0 [facility] ([place]) Comment on above: Performed By: #### P RO, GFR, BMP #### [address] [address] .GFRon 02-01-2022 GFR Non- >60 Normal [facility] ([place]) Comment on above: Result Comment: GFR Population mean for , Non- Americans Ages 20-29 = 116 mL/min/1.73 sq.m. Ages 30-39 = 107 mL/min/1.73 sq.m. Ages 40-49 = 99 mL/min/1.73 sq.m. Ages 50-59 = 93 mL/min/1.73 sq.m. Ages 60-69 = 85 mL/min/1.73 sq.m. Ages 70+ = 75 mL/min/1.73 sq.m. Chronic Kidney Disease: Less than 60 mL/min/1.73 square meters End Stage Renal Disease: Less than 15 mL/min/1.73 square meters Performed By: #### P RO, GFR, BMP #### [address] [address] GFR >60 Normal [facility] ([place]) Comment on above: Result Comment: GFR Population mean for , Non- Americans Ages 20-29 = 116 mL/min/1.73 sq.m. Ages 30-39 = 107 mL/min/1.73 sq.m. Ages 40-49 = 99 mL/min/1.73 sq.m. Ages 50-59 = 93 mL/min/1.73 sq.m. Ages 60-69 = 85 mL/min/1.73 sq.m. Ages 70+ = 75 mL/min/1.73 sq.m. Chronic Kidney Disease: Less than 60 mL/min/1.73 square meters End Stage Renal Disease: Less than 15 mL/min/1.73 square meters Performed By: #### P RO, GFR, BMP #### [address] [address] .NEUABSon 02-01-2022 Neutrophil, Absolute 7.1 10 3/mcL Normal 2.3-8.1 [facility] ([place]) Comment on above: Performed By: #### P RO, GFR, BMP #### [place] [id number] BMPon 02-01-2022 BUN/Creatinine Ratio 8.7 ratio Low 10.0-22.0 [facility] ([place]) Comment on above: Performed By: #### P RO, GFR, BMP #### [place] [address] Calcium [Mass/Vol] 10.0 mg/dL Normal 8.7-10.4 [facility] ([place]) Comment on above: Performed By: #### P RO, GFR, BMP #### [address] [address] Chloride [Moles/Vol] 107 mmol/L Normal 98-110 [facility] ([place]) Comment on above: Performed By: #### P RO, GFR, BMP #### [address] [address] CO2 [Moles/Vol] 29 mmol/L Normal 22-32 [facility] ([place]) Comment on above: Performed By: #### P RO, GFR, BMP #### [place] [id number] Creatinine [Mass/Vol] 1.04 mg/dL Normal 0.60-1.40 [facility] ([place]) Comment on above: Performed By: #### P RO, GFR, BMP #### [address] [address] Electrolyte Balance 1.0 mEq/L Low 4.0-15.0 [facility] ([place]) Comment on above: Performed By: #### P RO, GFR, BMP #### [address] [address] Glucose [Mass/Vol] 109 mg/dL Normal 70-110 [facility] ([place]) Comment on above: Performed By: #### P RO, GFR, BMP #### [address] [address] Potassium [Moles/Vol] 4.3 mmol/L Normal 3.5-5.0 [facility] ([place]) Comment on above: Performed By: #### P RO, GFR, BMP #### [address] [address] Sodium [Moles/Vol] 137 mmol/L Normal 136-145 [facility] ([place]) Comment on above: Performed By: #### P RO, GFR, BMP #### [address] [address] Urea nitrogen [Mass/Vol] 9.0 mg/dL Normal 8.0-22.0 [facility] ([place]) Comment on above: Performed By: #### P RO, GFR, BMP #### [address] [address] CBCon 02-01-2022 Erythrocyte distribution width (RBC) [Ratio] 13.7 % Normal 11.5-15.5 [facility] ([place]) Comment on above: Performed By: #### P RO, GFR, BMP #### [address] [address] Hematocrit (Bld) [Volume fraction] 41.4 % Normal 40.0-52.0 [facility] ([place]) Comment on above: Performed By: #### P RO, GFR, BMP #### [address] [address] Hgb 14.4 G/dL Normal 13.0-17.5 [facility] ([place]) Comment on above: Performed By: #### P RO, GFR, BMP #### [place] [id number] MCH (RBC) [Entitic mass] 31.4 pg Normal 27.0-33.0 [facility] ([place]) Comment on above: Performed By: #### P RO, GFR, BMP #### [place] [id number] MCHC 34.7 G/dL Normal 32.0-36.0 [facility] ([place]) Comment on above: Performed By: #### P RO, GFR, BMP #### [place] [address] MCV (RBC) [Entitic vol] 90.6 fL Normal 81.0-100.0 A [facility] ([place]) Comment on above: Performed By: #### P RO, GFR, BMP #### [place] [address] Platelet 295 10 3/mcL Normal 150-450 [facility] ([place]) Comment on above: Performed By: #### P RO, GFR, BMP #### [place] [address] Platelet mean volume (Bld) [Entitic vol] 6.5 fL Normal 6.4-10.5 [facility] ([place]) Comment on above: Performed By: #### P RO, GFR, BMP #### [place] [address] RBC 4.57 10 6/mcL Normal 4.50-6.00 [facility] ([place]) Comment on above: Performed By: #### P RO, GFR, BMP #### [place] [id number] WBC 10.2 10 3/mcL Normal 4.5-10.8 [facility] ([place]) Comment on above: Performed By: #### P RO, GFR, BMP #### [place] [id number] Histoplasma Galactomannan AG on 02-01-2022 Histoplasma galacto source Bronchial wash Normal () [facility] Comment on above: Performed By: #### H ISTO GAL #### [facility] [address] [place], [place] [address] Histoplasma galactomannan AG 0.80 ng/mL Abnormal () [facility] Comment on above: Result Comment: Refe rence Interval: None Detected Reportable Range: Positive Results reported in ng/mL from 0.20 ng/mL to 20.00 ng/mL Positive results above 20.00 ng/mL are reported as Above the Limit of Quantification This test was developed and its performance characteristics determined by [facility]. It has not been cleared or approved by the FDA; however, FDA clearance or approval is not currently required for clinical use. The results are not intended to be used as the sole means for clinical diagnosis or patient management decisions. This document contains confidential privileged information. The recipient of the information is prohibited from disclosing the contents to another libertarian without authorization. If you are not the intended recipient, you are hereby notified that the disclosure of the contents is strictly prohibited. Please notify [facility] immediately if you received this information in error. Freight Associate: Mandie Silverman MD, [place] [address] Cross-reactions occur with Blastomyces spp., Coccidioides spp., and Paracoccidioides brasiliensis. ALQ = Above the limit of Quantification Performed At: [facility] [address] [place] [address] Shoelace Tipping Machine Operator: Mandie Silverman [place] Number: [id number] Performed By: #### H ISTO GAL #### [facility] [employer] [address] [place], [place] [address] LABORATORYOrdered By: SYSTEM SYSTEM on 02-01-2022 Basophils (Bld) [#/Vol] 0.1 103/mcL Invalid Interpretation Code 0.0 - 0.3 10^3/mcL AH Workflow SS Basophils/100 WBC (Bld) 0.5 % Invalid Interpretation Code 0.0 - 2.5 % Workflow SS Calcium [Mass/Vol] 10.0 mg/dL Invalid Interpretation Code 8.7 - 10.4 mg/dL ADM SS Chloride [Moles/Vol] 107 mmol/L Invalid Interpretation Code 98 - 110 mEq/L ADM SS CO2 [Moles/Vol] 29 mmol/L Invalid Interpretation Code 22 - 32 mEq/L ADM SS Creatinine [Mass/Vol] 1.04 mg/dL Invalid Interpretation Code 0.60 - 1.40 mg/dL ADM SS Electrolyte Balance 1.0 mEq/L Invalid Interpretation Code 4.0 - 15.0 mEq/L ADM SS Eosinophils (Bld) [#/Vol] 0.3 103/mcL Invali d Interpretation Code 0.0 - 0.7 10^3/mcL Workflow SS Eosinophils/100 WBC (Bld) 2.9 % Invali d Interpretation Code 0.0 - 6.0 % Workflow SS Erythrocyte distribution width (RBC) [Ratio] 13.7 % Invalid Interpretation Code 11.5 - 15.5 % Workflow SS GFR/1.73 sq M.predicted among blacks MDRD (S/P/Bld) [Vol rate/Area] ml/min/1.73sqm Invalid Interpretation Code Chemistry S GFR/1.73 sq M.predicted among non-blacks MDRD (S/P/Bld) [Vol rate/Area] ml/min/1.73sqm Invalid Interpretation Code Chemistry S Glucose [Mass/Vol] 109 mg/dL Invalid Interpretation Code 70 - 110 mg/dL ADM SS Hematocrit (Bld) [Volume fraction] 41.4 % Invalid Interpretation Code 40.0 - 52.0 % Workflow SS Hemoglobin (Bld) [Mass/Vol] 14.4 G/dL Invalid Interpretation Code 13.0 - 17.5 G/dL Workflow SS Lymphocytes (Bld) [#/Vol] 1.9 103/mcL Invali d Interpretation Code 0.9 - 4.3 10^3/mcL Workflow SS Lymphocytes/100 WBC (Bld) 18.5 % Invali d Interpretation Code 20.0 - 40.0 % Workflow SS MCH (RBC) [Entitic mass] 31.4 pg Invalid Interpretation Code 27.0 - 33.0 pg Workflow SS MCHC 34.7 G/dL Invalid Interpretation Code 32.0 - 36.0 G/dL AH Workflow SS MCV (RBC) [Entitic vol] 90.6 fL Invalid Interpretation Code 81.0 - 100.0 fL AH Workflow SS Monocytes (Bld) [#/Vol] 0.8 103/mcL Invalid Interpretation Code 0.1 - 1.4 10^3/mcL AH Workflow SS Monocytes/100 WBC (Bld) 8.0 % Invalid Interpretation Code 2.0 - 13.0 % AH Workflow SS Neutrophils (Bld) [#/Vol] 7.1 103/mcL Invali d Interpretation Code 2.3 - 8.1 10^3/mcL AH Workflow SS Neutrophils/100 WBC (Bld) 70.1 % Invali d Interpretation Code 50.0 - 75.0 % AH Workflow SS Platelet mean volume (Bld) [Entitic vol] 6.5 fL Invalid Interpretation Code 6.4 - 10.5 fL AH Workflow SS Platelets (Bld) [#/Vol] 295 103/mcL Invalid Interpretation Code 150 - 450 10^3/mcL AH Workflow SS Potassium [Moles/Vol] 4.3 mmol/L Invalid Interpretation Code 3.5 - 5.0 mEq/L ADM SS RBC (Bld) [#/Vol] 4.57 106/mcL Invalid Interpretation Code 4.50 - 6.00 10^6/mcL AH Workflow SS Sodium [Moles/Vol] 137 mmol/L Invalid Interpretation Code 136 - 145 mEq/L AH ADM SS Urea nitrogen [Mass/Vol] 9.0 mg/dL Invalid Interpretation Code 8.0 - 22.0 mg/dL AH ADM SS Urea nitrogen/Creatinine [Mass ratio] 8.7 ratio Invalid Interpretation Code 10.0 - 22.0 ratio AH ADM SS WBC (Bld) [#/Vol] 10.2 103/mcL Invalid Interpretation Code 4.5 - 10.8 10^3/mcL AH Workflow SS LABORATORYOrdered By: Daniel Escobar on 02-01-2022 INR Coag (PPP) [Relative time] 1.0 {INR} Invalid Interpretation Code AH Auto Coag SS PT Coag (PPP) [Time] 11.7 s Invalid Interpretation Code 9.0 - 14.9 seconds AH Auto Coag SS PROon 02-01-2022 INR Coag (PPP) [Relative time] 1.0 {INR} Normal [facility] ([place]) Comment on above: Result Comment: The [employer] (CHEST, 1992, 102:312S-25S) recommended therapeutic range for oral anticoagulant therapy is: LOW RISK: Prophylaxis of venous thrombosis INR: 2.0-3.0 Treatment of pulmonary embolism 2.0-3.0 Prevention of systemic embolism 2.0-3.0 HIGH RISK: Mechanical prosthetic valves 2.5-3.5 Performed By: #### P RO, GFR, BMP #### [facility] [address] [place] [address] PT Coag (PPP) [Time] 11.7 s Normal 9.0-14.9 [facility] ([place]) Comment on above: Result Comment: Effe ctive 09/03/07, Protime results may be affected by some antibiotics (i.e. Ciprofloxacin, Azithromycin, Bactrim) which may potentiate the action of oral anticoagulants, with further increases in Protime/INR. Performed By: #### P RO, GFR, BMP #### [place] [address] [place] [address] AFB DIRECT SMEARon 2 AFB DIRECT SMEAR - -------- RUN DATE: 01/27/22 Laboratory LIVE PAGE 1 RUN TIME: 1347 Specimen Inquiry RUN USER: INTERFACE -------- [facility] Department of Laboratories [address] [place], [place] [id number] PATIENT: DONTAE PARRA LOC: [facility] #: [id number] HOME PHONE: AGE/SX: 46/M ROOM: RE01/26/[address]: Monroe Love : 73 BED: DIS: STATUS: REG REF LAB O/S: -------- Specimen: [id number] Collected: 01/26/22- Status: COMP Req#: [id number] Received: 01/27/22 Source: BRONCH Sp Desc: BRONCHIAL Subm Dr: Monroe Love Ordered: AFB DIRECT SMR -------- Procedure Result Verified -------- > AFB DIRECT SMEAR Final 01/27/22 FLUORESCENT ACID FAST STAIN: NO AFB SEEN ON UNCONCENTRATED SMEAR VIA FLUORESCENT METHOD -------- END OF REPORT Normal [facility] Comment on above: Performed By: #### S ESTHER #### [facility] [address] [address] FUNGUS SMEAR (PAOLO)on FUNGUS SMEAR (PAOLO) - -------- RUN DATE: 01/27/22 Laboratory LIVE PAGE 1 RUN TIME: 1332 Specimen Inquiry RUN USER: INTERFACE -------- [facility] Department of Laboratories [address] [place], [place] [id number] PATIENT: DONTAE PARRA LOC: [facility] U #: [id number] HOME PHONE: AGE/SX: 46/M ROOM: RE01/26/[address]: Monroe Love D.O.B.: 73 BED: DIS: STATUS: REG REF LAB O/S: -------- Specimen: [id number] Collected: 01/26/22-UNK Status: COMP Req#: [id number] Received: 01/27/22-1199 Source: BRONCH Sp Desc: BRONCHIAL Subm Dr: Monroe Love Ordered: MONE SMR (PAOLO) -------- Procedure Result Verified -------- > FUNGUS SMEAR (PAOLO) Final 01/27/22 NO FUNGAL ELEMENTS FOUND ON DIRECT PAOLO PREP -------- END OF REPORT Normal [facility] Comment on above: Performed By: #### S JOSUE #### [facility] [address] [address] Fungal Cultureon 01-26-2022 Fungal Culture - -------- RUN DATE: 03/26/22 Laboratory LIVE PAGE 1 RUN TIME: 100 Specimen Inquiry RUN USER: INTERFACE -------- [facility] Department of Laboratories [address] [place] [address] PATIENT: DONTAE PARRA LOC: [facility] U #: [id number] HOME PHONE: AGE/SX: 46/M ROOM: RE01/26/[address]: Monroe Love : 73 BED: DIS: STATUS: REG REF LAB O/S: -------- Specimen: [id number] Collected: 01/26/22-UNK Status: COMP Req#: [id number] Received: 01/27/22 Source: BRONCH Sp Desc: BRONCHIAL Subm Dr: Monroe Love Ordered: AFB Cult/Stain, Fungal Culture -------- Procedure Result Verified -------- > AFB Stain Final 03/26/22 SEE NOTE Negative for Acid Fast Bacteria. > Acid-Fast Bacillus Cult Final 03/26/22 SEE NOTE Culture negative for acid fast bacilli Performed By: [facility] [address] [place] [address] Freight Associate: Cuong Wray MD, PHD > Fungal Culture Final 02/27/22 SEE NOTE Culture POSITIVE for Yeast not Cryptococcus species No further workup Performed By: [facility] [address] [place] [address] Freight Associate: Cuong Wray MD, PHD -------- END OF REPORT Normal [facility] Comment on above: Performed By: #### C SUJATHA #### [facility] [address] [address] GRAM STAINon 01-26-2022 Microscopic observation Gram stain Nom (Unsp spec) -------- RUN DATE: 01/29/22 Laboratory LIVE PAGE 1 RUN TIME: 942 Specimen Inquiry RUN USER: INTERFACE -------- [facility] Department of Laboratories [address] [place] [address] PATIENT: DONTAE PARRA LOC: [facility] U #: [id number] HOME PHONE: AGE/SX: 46/M ROOM: RE01/26/[address]: Monroe Love : 73 BED: DIS: STATUS: REG REF LAB O/S: -------- Specimen: [id number] Collected: 01/26/22-UNK Status: COMP Req#: [id number] Received: 01/27/22 Source: BRONCH Sp Desc: BRONCHIAL Subm Dr: Monroe Love Ordered: GRAM STAIN, RESPIRATORY CUL -------- Procedure Result Verified -------- > GRAM STAIN Final 01/27/22-1409 FEW SEGMENTED WBC'S MODERATE GRAM POSITIVE COCCI > RESPIRATORY CULTURE Final 01/29/22-0943 MODERATE GROWTH OF NORMAL MCKINLEY -------- END OF REPORT Normal [facility] Comment on above: Performed By: #### S MAXINE DICKEY #### [facility] [address] [address] NONGYN CYTOLOGYon 01-26-2022 NONGYN CYTOLOGY - -------- RUN DATE: 01/30/22 Laboratory LIVE PAGE 1 RUN TIME: 1333 Specimen Inquiry RUN USER: INTERFACE -------- [facility] Department of Laboratories [address] [place] [address] PATIENT: DONTAE PARRA LOC: [facility] Sol #: [id number] HOME PHONE: AGE/SX: 46/M ROOM: RE01/26/[address] [facility] [address]: Monroe Love : 73 BED: DIS: STATUS: REG REF LAB O/S: -------- Specimen : [id number] Date Collected: 01/26/22 Surgeon : Monroe Love Date Received : 01/27/22 Date Reported : 01/30/22 Physician : Danilo Alvarado DIAGNOSIS 1. LUNG, BILATERAL, THINPREP, BRONCHIAL WASHINGS: NO MALIGNANT CELLS IDENTIFIED. PAUCICELLULAR SPECIMEN CONSISTS OF RARE ALVEOLAR MACROPHAGES, RARE BRONCHIAL EPITHELIAL CELLS, SQUAMOUS CELLS, AND MIXED INFLAMMATORY CELLS. GMS STAIN IS NEGATIVE FOR FUNGAL ORGANISMS. 2. LUNG, RIGHT LOWER LOBE, THINPREP, BRONCHIAL BRUSHING: NO MALIGNANT CELLS IDENTIFIED. SPECIMEN CONSISTS OF ALVEOLAR MACROPHAGES, BRONCHIAL EPITHELIAL CELLS, SQUAMOUS CELLS, AND SCATTERED GIANT CELLS. Britt Swenson M.D. Pathologist 01/30/22 COMMENT: @ OP BW SPECIMEN: BRONCHIAL WASHINGS - BILATERAL LUNG WASHINGS AND RIGHT LOWER LOBE BRUSHINGS, LUNG CONTINUED ON NEXT PAGE -------- RUN DATE: 01/30/22 Laboratory LIVE PAGE 2 RUN TIME: 1333 Specimen Inquiry RUN USER: INTERFACE -------- SPEC #: [id number] PATIENT: DONTAE PARRA Wayne #[id number] (Continued) -------- Specimen : [id number] Date Collected: 01/26/22 Surgeon : Monroe Love Date Received : 01/27/22 Date Reported : 01/30/22 Physician : Danilo Alvarado SPECIMEN DESCRIPTION: Number of slides: 2 1. The specimen is labeled bilateral lung washings and consists of approximately 5ml red tinged mucoid fluid. 2. The specimen is labeled right lower lobe brushings and consists of one cytobrush received in approximately 30ml cytolyt fixative. CLINICAL DIAGNOSIS: HEMOPTYSIS Signed-Out: Britt Swenson (signature on file) 01/30/22 My electronic signature is attestation that I have personally reviewed the submitted material(s) and the final report reflects that evaluation. -------- END OF REPORT Normal [facility] Comment on above: Performed By: #### N G #### [facility] [place] [id number] [facility] 09-01-2021 CNPN Telephone ([facility]) DONTAE PARRA ([id number]) 1975 M Date Time Provider Department 09/01/21 [facility] During your visit today, we recorded the following information about you: Sabra Chapman MA 09/01/2021 9:49 AM Signed Patient scheduled for Bronch on 09/06/2021 at 7:30 am. He has his Covid test on 09/03/2021 at 8:20 am at [facility] lab. Faxed orders. Left message for patient to call back. Can I get this Covid order signed? Thanks. NADIA Linn MA 09/01/2021 9:59 AM Signed Patient states that he will be out of town for the Covid test. He will be in [place]. Is there anything else he can do or should he be rescheduled? Please advise, thanks. NADIA Linn DO 09/01/2021 10:06 AM Signed Can reschedule, but will be ~2-3 weeks Sabra Chapman MA 09/01/2021 2:16 PM Signed Patient is still not agreeable. He states that he is not able to get the Covid test 3 days beforehand at all because he works and his only days off are Sunday and wednesdays. He would like to know if there is anything else testing reese he can do. NADIA Linn DO 09/01/2021 2:25 PM Signed I d/w ambulatory surgery. They will accept a pharmacy reported covid test result 3 days prior Sabra Chapman MA 09/01/2021 4:23 PM Signed Attempted to call patient but there was no answer. Left a message on [employer] requesting a return call. NADIA Linn 09/01/2021 4:36 PM Signed Patient notified Allergies As of Date: 09/01/2021 (No Known Allergies) Date Reviewed: 08/31/2021 Reviewed by: Yony Frias DO - Fully Assessed Reason for Visit: Procedure [88] Prescriptions as of 09/02/2021 - BREZTRI AEROSPHERE 160-9-4.8 mcg/actuation HFA aerosol inhaler INHALE 2 PUFFS INTO LUNGS TWICE DAILY - carvedilol (COREG) 3.125 mg tablet Take 6.25 mg by mouth. - omeprazole (PRILOSEC) 40 mg capsule TAKE 1 CAPSULE BY MOUTH 30 MINUTES BEFORE MORNING MEAL ONCE DAILY - varenicline (CHANTIX STARTING MONTH BOX) 0.5 mg (11)- 1 mg (42) tablet Take 0.5 mg by mouth once daily on Days 1 through 3, THEN 0.5 mg twice daily on Days 4 through 7, THEN 1 mg twice daily on Day 8 and thereafter - ADULT LOW DOSE ASPIRIN ORAL Take 81 mg by mouth once daily. - ALBUTEROL SULFATE INHALATION Inhale 1-2 Puffs as instructed every 6 hours as needed. - testosterone (ANDRODERM) 2 mg/24 hour Apply 1 Patch as directed once daily. - atorvastatin (LIPITOR) 40 mg tablet Take 40 mg by mouth daily at bedtime. - OMEGA-3 ACID ETHYL ESTERS (LOVAZA ORAL) Take by mouth once daily. - metoprolol tartrate, short acting, (LOPRESSOR) 25 mg tablet Take 25 mg by mouth every 12 hours. - nicotine (NICODERM) 21 mg/24 hr Apply 1 Patch as directed every 24 hours. - nitroglycerin sublingual (NITROQUICK) 0.4 mg SL tablet Dissolve 0.4 mg under the tongue every 5 minutes as needed for Chest Pain. - OMEPRAZOLE (PRILOSEC ORAL) Take by mouth once daily. - ROPINIROLE HCL (REQUIP ORAL) Take by mouth daily at bedtime. - ACETAMINOPHEN (TYLENOL ORAL) Take 650 mg by mouth every 4 hours as needed. Problem List As Of Date 09/01/2021 Noted Resolved Hemoptysis [R04.2] 08/31/2021 Tobacco use current [Z72.0] 08/31/2021 Chronic obstructive pulmonary disease (HCC) [J4*08/31/2021 SOB (shortness of breath) on exertion [R06.02] 08/31/2021 Coronary artery disease involving [place] ndiaye*08/31/2021 History of 2019 novel coronavirus disease (COVI*08/31/2021 Encounter Status:Closed by SABRA CHAPMAN [facility] DONTAE PARRA ([id number]) 1975 M Date Time Provider Department 09/01/21 SHANEL RAMIREZ During your visit today, we recorded the following information about you[facility] 3[facility]37 PM Signed Smoking Cessation Navigation Outcome of contact: Left Message Comments: A voicemail has been left for this patient regarding Tobacco Cessation support options. If this patient has any further questions they can email us at or call us at [phone]. [employer]iju Curriculum Director/Smoking Cessation Navigator: [facility] Allergies As of Date: 09/01/2021 (No Known Allergies) Date Reviewed: 08/31/2021 Reviewed by: Yony Frias DO - Fully Assessed Reason for Visit: Smoking Cessation [1387] Prescriptions as of 09/01/2021 - BREZTRI AEROSPHERE 160-9-4.8 mcg/actuation HFA aerosol inhaler INHALE 2 PUFFS INTO LUNGS TWICE DAILY - carvedilol (COREG) 3.125 mg tablet Take 6.25 mg by mouth. - omeprazole (PRILOSEC) 40 mg capsule TAKE 1 CAPSULE BY MOUTH 30 MINUTES BEFORE MORNING MEAL ONCE DAILY - varenicline (CHANTIX STARTING MONTH BOX) 0.5 mg (11)- 1 mg (42) tablet Take 0.5 mg by mouth once daily on Days 1 through 3, THEN 0.5 mg twice daily on Days 4 through 7, THEN 1 mg twice daily on Day 8 and thereafter - ADULT LOW DOSE ASPIRIN ORAL Take 81 mg by mouth once daily. - ALBUTEROL SULFATE INHALATION Inhale 1-2 Puffs as instructed every 6 hours as needed. - testosterone (ANDRODERM) 2 mg/24 hour Apply 1 Patch as directed once daily. - atorvastatin (LIPITOR) 40 mg tablet Take 40 mg by mouth daily at bedtime. - OMEGA-3 ACID ETHYL ESTERS (LOVAZA ORAL) Take by mouth once daily. - metoprolol tartrate, short acting, (LOPRESSOR) 25 mg tablet Take 25 mg by mouth every 12 hours. - nicotine (NICODERM) 21 mg/24 hr Apply 1 Patch as directed every 24 hours. - nitroglycerin sublingual (NITROQUICK) 0.4 mg SL tablet Dissolve 0.4 mg under the tongue every 5 minutes as needed for Chest Pain. - OMEPRAZOLE (PRILOSEC ORAL) Take by mouth once daily. - ROPINIROLE HCL (REQUIP ORAL) Take by mouth daily at bedtime. - ACETAMINOPHEN (TYLENOL ORAL) Take 650 mg by mouth every 4 hours as needed. Problem List As Of Date 09/01/2021 Noted Resolved Hemoptysis [R04.2] 08/31/2021 Tobacco use current [Z72.0] 08/31/2021 Chronic obstructive pulmonary disease (HCC) [J4*08/31/2021 SOB (shortness of breath) on exertion [R06.02] 08/31/2021 Coronary artery disease involving [place] ndiaye*08/31/2021 History of 2019 novel coronavirus disease (COVI*08/31/2021 Encounter Status:Closed by SHANEL RAMIREZ on 09/01/21 Normal [facility] CNOVon 08-31-2021 CNOV Office Visit (P[facility] ) DONTAE PARRA ([id number]) 1975 M Date Time Provider Department 08/31/21 12:00 PM YONY FRIAS [facility] During your visit today, we recorded the following information about you: Pulse Blood pressure Weight Height 84/minute 118/79 100.7 kg 1.829 m Yony Frias DO 08/31/2021 12:51 PM Signed [facility] Department of Pulmonary AND Sleep Medicine Yony Frias DO Pulmonary Consult Note - Smoker SERVICE DATE: 08/31/2021 SERVICE TIME: 12:00 PM REASON FOR CONSULT: Hemoptysis. HISTORY OF PRESENT ILLNESS: Dontae Parra is a 46 year old male, with a history of hemoptysis. Patient states that he has been coughing up blood since of last year. Patient was not ill [...] pleurisy, wasting syndrome or weight loss. I, Sabra Chapman MA, transcribing for Yony Frias DO. HISTORY PAST MEDICAL HISTORY Diagnosis Date - Anxiety state - Asthma - Benign essential hypertension - CAD (coronary artery disease) - Chest pain - COPD (chronic obstructive pulmonary disease) ([facility]) - Coronary arteriosclerosis NON -CRITICAL DISEASE - Depression - Dyspnea - Erectile dysfunction c/o - GERD (gastroesophageal reflux disease) - Heart attack ([facility]) - Hyperlipidemia - Neuropathy - Pneumonia, viral - Restless legs - Stroke (cerebrum) ([facility]) PAST SURGICAL HISTORY Procedure Laterality Date - [...] of Systems Constitutional: Negative. HENT: Positive for (more content not included)... Normal [facility] CBC w/Auto Differentialon Basophils Abs. # 0.02 K/uL Normal 0.00-0.10 [facility] Comment on above: Performed By: #### C BCS #### [facility] [address] [place] [address] Basophils/100 WBC (Bld) 0.2 % Normal 0.2-1.0 C [facility] Comment on above: Performed By: #### C BCS #### [facility] [address] [place] [address] Eosinophils (Bld) [#/Vol] 0.10 10*3/uL Normal 0.00-0.2 0 [facility] Comment on above: Performed By: #### C BCS #### [facility] [address] [place] [address] Eosinophils/100 WBC (Bld) 1.3 % Normal 0.9-2.9 [facility] Comment on above: Performed By: #### C BCS #### [place] [id number] [place] [address] Erythrocyte distribution width (RBC) [Ratio] 13.5 % Normal 11.5-14.5 [facility] Comment on above: Performed By: #### C BCS #### [place] [id number] [place] [address] Hematocrit (Bld) [Volume fraction] 44.2 % Normal 36.7-50.6 [facility] Comment on above: Performed By: #### C BCS #### [facility] [address] [place] [address] Hemoglobin (Bld) [Mass/Vol] 14.9 g/dL Normal 12.4-17.3 [facility] Comment on above: Performed By: #### C BCS #### [facility] [address] [place] [address] Imm Grans % 0.40 % Normal 0.00-1.00 [facility] Comment on above: Performed By: #### C BCS #### [place] [address] [place] [address] Imm Grans Absolute # 0.04 K/uL Normal 0.00-0.10 [facility] Comment on above: Performed By: #### C BCS #### [facility] [address] [place] [address] Lymphocytes (Bld) [#/Vol] 2.30 10*3/uL Normal 1.30-2.9 0 [facility] Comment on above: Performed By: #### C BCS #### [facility] [address] [place] [address] Lymphocytes/100 WBC (Bld) 23.9 % Normal 17.0-45.5 [facility] Comment on above: Performed By: #### C BCS #### [facility] [address] [place] [address] MCH (RBC) [Entitic mass] 30.7 pg Normal 27.0-31.0 [facility] Comment on above: Performed By: #### C BCS #### [facility] [address] [place] [address] MCHC (RBC) [Mass/Vol] 33.7 g/dL Normal 33.0-37.0 [facility] Comment on above: Performed By: #### C BCS #### [facility] [address] [place] [address] MCV (RBC) [Entitic vol] 90.9 fL Normal 80.0-94.0 [facility] Comment on above: Performed By: #### C BCS #### [facility] [address] [place] [address] Monocytes (Bld) [#/Vol] 0.50 10*3/uL Normal 0.30-0.80 [facility] Comment on above: Performed By: #### C BCS #### [facility] [address] [place] [address] Monocytes/100 WBC (Bld) 5.3 % Low 5.5-11.7 [facility] Comment on above: Performed By: #### C BCS #### [facility] [address] [facility] [place] [address] Neutrophils Abs. # 6.48 K/uL High 2.20-4.80 [facility] Comment on above: Performed By: #### C BCS #### [facility] [address] [facility] [place] [address] Neutrophils/100 WBC (Bld) 68.9 % High 43.0-65.0 [facility] [facility] Comment on above: Performed By: #### C BCS #### [facility] [address] [facility] [place] [address] Platelet mean volume (Bld) [Entitic vol] 8.3 fL Normal 7.4-10.4 [facility] Comment on above: Performed By: #### C BCS #### [facility] [address] [facility] [place] [address] Platelets (Bld) [#/Vol] 204 10*3/uL Normal 148-402 [facility] Comment on above: Performed By: #### C BCS #### [facility] [address] [place] [address] RBC (Bld) [#/Vol] 4.86 10*6/uL Normal 4.13-5.69 [facility] Comment on above: Performed By: #### C BCS #### [facility] [address] [place] [address] WBC (Bld) [#/Vol] 9.4 10*3/uL Normal 3.6-10.8 [facility] Comment on above: Performed By: #### C BCS #### [facility] [address] [place] [address] CHEST APon 03-03-2021 CHEST AP EXAMINATION: ONE XRAY VIEW OF THE CHEST 03/03/2021 11:53 am COMPARISON: February 22, 2021 HISTORY: ORDERING SYSTEM PROVIDED HISTORY: covid/dyspnea FINDINGS: Bibasilar atelectasis or infiltrates slightly greater on the right. No pneumothorax or significant pleural effusion. Cardiac and mediastinal silhouettes unremarkable. No acute osseous abnormality. Telemetry leads overlie the chest. IMPRESSION: Bibasilar atelectasis or infiltrates. Normal [facility] CTA CHEST Won 03-03-2021 CTA CHEST W EXAMINATION: CTA OF THE CHEST 03/03/2021 1:07 pm TECHNIQUE: CTA of the chest was performed after the administration of intravenous contrast. Multiplanar reformatted images are provided for review. MIP images are provided for review. Dose modulation, iterative reconstruction, and/or weight based adjustment of the mA/kV was utilized to reduce the radiation dose to as low as reasonably achievable. COMPARISON: None. HISTORY: ORDERING SYSTEM PROVIDED HISTORY: dyspnea/covid FINDINGS: Pulmonary Arteries: Pulmonary arteries are adequately opacified for evaluation. No evidence of intraluminal filling defect to suggest pulmonary embolism. Main pulmonary artery is normal in caliber. Mediastinum: No evidence of mediastinal lymphadenopathy. The heart and pericardium demonstrate no acute abnormality. There is no acute abnormality of the thoracic aorta. Lungs/pleura: Moderate centrilobular emphysema. Bibasilar atelectasis or infiltrates. No pneumothorax or pleural effusion. Upper Abdomen: Limited images of the upper abdomen are unremarkable. Soft Tissues/Bones: No acute bone or soft tissue abnormality. IMPRESSION: 1. No pulmonary embolus. 2. Bibasilar atelectasis or infiltrates. RECOMMENDATIONS: Unavailable Normal [facility] Comprehensive Metabolic Pane shilo 03-03-2021 Albumin [Mass/Vol] 3.5 g/dL Normal 3.4-5.0 [facility] Comment on above: Performed By: #### C MP #### [place] [address] [address] Albumin/Globulin [Mass ratio] 1.1 {ratio} Normal 1.1-2.5 [facility] Comment on above: Result Comment: CO RRECTED REPORT: Previous result was 1.0 at 12:02 on 03/03/21 Performed By: #### C MP #### [facility] [address] [facility] [place] [address] ALP [Catalytic activity/Vol] 93 U/L Normal 54-112 [facility] Comment on above: Performed By: #### C MP #### [facility] [address] [place] [address] ALT [Catalytic activity/Vol] 48 U/L Normal 13-66 [facility] Comment on above: Performed By: #### C MP #### [facility] [address] [place] [address] Anion gap [Moles/Vol] 11.8 mmol/L Normal 8.0-16.0 [facility] Comment on above: Performed By: #### C MP #### [facility] [address] [place] [address] AST [Catalytic activity/Vol] 21 U/L Normal 3-39 [facility] Comment on above: Performed By: #### C MP #### [facility] [address] [place] [address] Bilirubin [Mass/Vol] 0.92 mg/dL Normal 0.00-0.99 [facility] Comment on above: Performed By: #### C MP #### [facility] [address] [place] [address] Calcium [Mass/Vol] 8.3 mg/dL Normal 8.2-10.0 [facility] Comment on above: Performed By: #### C MP #### [facility] [address] [place] [address] Chloride [Moles/Vol] 106 mmol/L Normal 94-110 [facility] Comment on above: Performed By: #### C MP #### [facility] [address] [place] [address] CO2 [Moles/Vol] 26 mmol/L Normal 21-34 [facility] Comment on above: Performed By: #### C MP #### [facility] [address] [place] [address] Creatinine [Mass/Vol] 0.93 mg/dL Normal 0.50-1.17 [facility] Comment on above: Performed By: #### C MP #### [facility] [address] [place] [address] EGFR Other Races >60 Normal >60 [facility] Comment on above: Performed By: #### C MP #### [facility] [address] [place] [address] GFR/1.73 sq M.predicted among blacks MDRD (S/P/Bld) [Vol rate/Area] mL/min/{1.73_m2} Normal >60 [facility] Comment on above: Result Comment: Clinical Project Manager ceci Kidney Disease less than 60 mL/min/1.73 m2 Kidney Failure less than 15 mL/min/1.73 m2 Average estimated GFR by age: 40-49 years 99 mL/min/1.73 m2 Performed By: #### C MP #### [facility] [address] [place] [address] Globulin (S) [Mass/Vol] 3.3 g/dL Normal 1.5-4.5 [facility] Comment on above: Performed By: #### C MP #### [facility] [address] [place] [address] Glucose [Mass/Vol] 124 mg/dL High 65-100 [facility] Comment on above: Performed By: #### C MP #### [facility] [address] [place] [address] Potassium [Moles/Vol] 3.8 mmol/L Normal 3.3-5.1 [facility] Comment on above: Performed By: #### C MP #### [facility] [address] [place] [address] Protein [Mass/Vol] 6.8 g/dL Normal 6.1-8.2 [facility] Comment on above: Performed By: #### C MP #### [facility] [address] [place] [address] Sodium [Moles/Vol] 140 mmol/L Normal 132-145 [facility] Comment on above: Performed By: #### C MP #### [facility] [address] [place] [address] Urea nitrogen [Mass/Vol] 13.4 mg/dL Normal 3.2-26.9 [facility] Comment on above: Performed By: #### C MP #### [facility] [address] [place] [address] Urea nitrogen/Creatinine [Mass ratio] 14 mg/mg Normal 6-20 [facility] Comment on above: Performed By: #### C MP #### [facility] [address] [place] [address] D-Dimeron 03-03-2021 D-Dimer 0.28 mg/L FEU Normal 0.00-0.49 [facility] Comment on above: Result Comment: Nega tive Predictive Value = <0.50 mg/L FEU This D-dimer assay may be used in conjunction with a non-high clinical pretest probability (PTP) assessment model to exclude pulmonary embolism (PE) disease. In addition, it is indicated as an aid in the exclusion of deep vein thrombosis (DVT). The measurement of D-dimer should not be used as an aid in the diagnosis of venous thromboembolism (VTE), in a patients with: -Therapeutic dose anticoagulant therapy > 24 hours -Fibrinolytic therapy within previous 7 days -Trauma or surgery within previous 4 weeks -Disseminated malignancies -Aortic aneurysm -Sepsis, severe infections, pneumonia, severe skin infections -Liver cirrhosis - Performed By: #### D [facility] #### [facility] [address] [address] EMERGENCY DEPARTMENTon 03-03 EMERGENCY DEPARTMENT [address] [address] HEALTH INFORMATION MANAGEMENT EMERGENCY DEPARTMENT : [phone] Signed Patient: DONTAE PARRA Acct:[id number] MRUN: M [id number] : 1975 Sex: M Loc: ED ADM Date: Room/Bed: DISC Date: History of Present Illness - General Chief Complaint: Short of Breath Stated Complaint: SOB COVID + Symptom onset: 3 days HPI: PATIENT STATES COVID POSITIVE ON SUNDAY. MAIA BEEN SHORT OF BREATH FOR 3 DAYS NOW. I JUST FEEL LIKE I CANT GET A FULL BREATH IN AND I CANT GET MY HEAD RIGHT. PATIENT ALSO REPORTS DIZZINESS. Denies any injury or fall. No chest pain. No pain or swelling of extremities. Not vaccinated for COVID. Sick contacts at home with COVID. No congestion/fever/chil ls/rash. No blood in stool/vomitus or urine. NO LOC/Syncope. No headache/neck pain/chest pain or abdominal pain. No s peech or vision problems. No numbness/tingling or paresthesia. No unilateral weakness in face or ext remities Time Seen by Provider: 03/03/21 11:18 Mode of Transport: Wheelchair - History of Present Illness C O Chest Pain?: No - Related Data Home Medications Medication Instructions Recorded Confirmed Albuterol Sulfate [Proair Hfa] 8.5 gm IH QID #1 hfa.aer.ad 02/22/21 Azithromycin [Zithromax 250 mg 250 mg PO DAILY #4 tablet 02/22/21 Tablet] Dexamethasone [Decadron 4 mg 8 mg PO DAILY #10 tablet 02/22/21 Tablet] Albuterol Sulfate [Ventolin (Pro 8.5 gm IH QID PRN #1 aero 03/03/21 Air) Hfa Inhaler] Amoxicillin/Potassium Clav 1 each PO BID #20 tablet 03/03/21 [Augmentin 875-125 Tablet] Prednisone [Prednisone 20 mg 60 mg PO DAILY #15 tablet 03/03/21 Tablet] Review of System - Constitutional Constitutional: Present: see HPI, Well developed, Well nourished, Non-toxic, malaise. Absent: chills, diaphoresis, fever, weakness, Lethargic - Nose,Throat,Mouth Nose (ROS): Present: congestion. Absent: pain Throat: Present: no symptoms reported. Absent: pain, swelling, discharge Mouth: Present: no symptoms reported. Absent: pain, swelling - Respiratory Respiratory: Present: see HPI, cough, short of breath. Absent: sputum, orthopnea, stridor, wheezing, hemoptysis, night sweats - CV Cardiology: Present: no symptoms reported. Absent: chest pain, edema - GI Gastrointestinal/Abdo carmen: Present: no symptoms reported. Absent: abdominal pain, diarrhea, nausea, vomiting - Genitourinary Symptoms: Present: no symptoms reported. Absent: dysuria - Neuro Neurological: Present: no symptoms reported. Absent: headache, weakness - Muskuloskeletal Musculoskeletal: Present: no symptoms reported. Absent: back pain, joint pain, joint swelling - Integumentary Skin: Absent: lesions, rash - Allergic/Immunologic Immunological/Allergi c: Present: no symptoms reported - Hematologic Hematologic/Lymphatic : Absent: easy bleeding, easy bruising, swollen glands - Endocrine Endocrine: Present: no symptoms reported - Psychiatric Psychiatric: Present: Normal Affect, Normal Mood. Absent: Depressed - All Others/Exceptions All Other Systems: Reviewed and Negative Except Where Noted in Documentation ED PMH/Social HX/Family HX - Respiratory Hx Respiratory Disorders: No - Cardiovascular Hx Cardiac Disorders: Yes PMH--Cardiovascular: Heart Attack, HTN, Hypercholesterolemia PSH-Cardiac: Stent Other CV PSH: stent x3 - Neurological Hx Neurological Disorder: No - Endocrine Hx Endocrine Disorders: No - Gastrointestinal Hx Gastrointestinal Disorders: No - Genitourinary Hx Genitourinary Disorders: No - Musculoskeletal Hx Musculoskeletal Disorders: No - Psychological Hx Psychosocial Problems: No - HEENT Hx Ear, Nose Throat Disorders: No - Cancer Hx Cancer: No - Social History Able to Read: Yes Able to Write: Yes Smoking Status: Heavy Smoker (>10 cig/day) Hx Chewing Tobacco Use: No Alcohol Use: Never Any recreational drug use reported?: No Feels Threatened In Home Environment: No Feels Threatened In a Relationship: No - [place]/Gender ID What is your current Gender Identity? Choose all that Apply: Male - [place]-Suicide Severity Rating Scale 1) Wish to be :: No 2) Suicidal Thoughts:: No 3) Suicidal Thoughts with Method:: No 4) Suicidal Intent (WITHOUT Specific Plan):: No 5) Suicidal Intent (WITH Specific Plan):: No 6) Suicidal Behavior Question (A): LIFETIME: No 6) Suicidal Behavior Question (B): PAST 3 MONTHS: No Patient Safety Strategies Initiated?: No General Exam - General Limitations: Complains of: no limitations Constitutional: Present: Well developed, Well nourished, well hydrated, Non-toxic. Absent: chills, diaphoresis, fever, malaise, weakness, Lethargic - Head (more content not included)... Normal [facility] High Sensitivity TNIon 03-03 Abs Change hsTnI 1 ng/L Normal [facility] Comment on above: Performed By: #### H STNI #### [facility] [address] [place], [place] [id number] [place] % hsTnI 8 % Normal [facility] Comment on above: Performed By: #### H STNI #### [facility] [address] [place] [address] High Sensitivity TNI 13 ng/L Normal 0-76 [facility] Comment on above: Result Comment: Inte rpretation comment: High-sensitivity troponin I (hsTnI) assay can reliably detect low troponin concentrations relative to conventional troponin assays. It is the preferred marker of myocardial necrosis as recommended by the Fourth [place] Definition of Myocardial Infarction Guidelines. The diagnosis of acute myocardial infarction (AMI) is made based on a rise or fall of troponin with at least one measurement exceeding the laboratory's upper limit of normal (indicating myocardial injury), in the context of reasonable suspicion for coronary ischemia (e.g. typical symptoms, changes on ECG, evidence for loss of myocardial infarction or demonstration of obstructive coronary artery disease). Note: Although abnormal hsTnI values reflect injury to myocardial cells, an elevated hsTnI does not indicate the cause of injury (i.e. ischemia versus non-ischemic disease). In some cases, myocardial injury is chronic and relatively stable such that hsTnI values remain elevated but do not change substantially over hours to days (examples include chronic kidney disease, heart failure or advanced patient age). When determining whether there has been a significant rise or fall of troponin on serial sampling, absolute change in troponin concentration has greater diagnostic accuracy for AMI then relative change criteria. A change of >7 ng/L over a 2-hour interval or a change of >10 ng/L over a 3-hour interval is suggested as a significant change. If the initial hsTnI is below or at the 99th percentile upper reference limit, a 50% change from the baseline is considered significant. If the initial hsTnI is above the 99th percentile upper reference limit, a 20% change from the baseline value is considered significant. Performed By: #### H STNI #### [address] [address] High Sensitivity TNI 12 ng/L Normal 0-76 [facility] Comment on above: Result Comment: Inte rpretation comment: High-sensitivity troponin I (hsTnI) assay can reliably detect low troponin concentrations relative to conventional troponin assays. It is the preferred marker of myocardial necrosis as recommended by the Fourth [place] Definition of Myocardial Infarction Guidelines. The diagnosis of acute myocardial infarction (AMI) is made based on a rise or fall of troponin with at least one measurement exceeding the laboratory's upper limit of normal (indicating myocardial injury), in the context of reasonable suspicion for coronary ischemia (e.g. typical symptoms, changes on ECG, evidence for loss of myocardial infarction or demonstration of obstructive coronary artery disease). Note: Although abnormal hsTnI values reflect injury to myocardial cells, an elevated hsTnI does not indicate the cause of injury (i.e. ischemia versus non-ischemic disease). In some cases, myocardial injury is chronic and relatively stable such that hsTnI values remain elevated but do not change substantially over hours to days (examples include chronic kidney disease, heart failure or advanced patient age). When determining whether there has been a significant rise or fall of troponin on serial sampling, absolute change in troponin concentration has greater diagnostic accuracy for AMI then relative change criteria. A change of >7 ng/L over a 2-hour interval or a change of >10 ng/L over a 3-hour interval is suggested as a significant change. If the initial hsTnI is below or at the 99th percentile upper reference limit, a 50% change from the baseline is considered significant. If the initial hsTnI is above the 99th percentile upper reference limit, a 20% change from the baseline value is considered significant. Performed By: #### H STNI ####[facility] [place] [address] NT Pro-BNPon 03-03-2021 Natriuretic peptide B (Bld) [Mass/Vol] 45 pg/mL Normal 0-125 [facility] Comment on above: Result Comment: NOTE -Dietary supplements containing high biotin levels may cause significant interference with affected lab tests, including cardiovascular diagnostic tests and hormone tests that use biotin technology. Incorrect test results may be generated if there is biotin in the patients specimen. Performed By: #### P BNPG #### [facility] [address] [place], [place] [id number] PTTon 03-03-2021 aPTT Coag (Bld) [Time] 24.7 s Normal 19.5-32.1 [facility] Comment on above: Result Comment: New Reference Ranges effective 2017. Performed By: #### P TT #### [facility] [address] [place], [place] [id number] Prothrombin Timeon INR Coag (PPP) [Relative time] 0.93 {INR} Normal [facility] Comment on above: Result Comment: 2.0 - 3.0 Group A 2.5 - 3.5 Group B Group A indications: Prophylaxis and treatment of venous thrombosis. Treatment of pulmonary embolism. Prevention of systemic embolism. Tissue heart valves. Acute myocardial infarction. Valvular heart disease. Atrial fibrillation. Group B indications: Mechanical prosthetic valves. . Performed By: #### P T ####[facility] [address] [place] [address] PT Coag (PPP) [Time] 9.0 s Normal 8.9-12.2 [facility] Comment on above: Result Comment: New Reference Ranges effective 2017. Performed By: #### P T ####[facility] [place] [address] 2018 Novel Coronavirus (CoVI D-19), NAAon 02-23-2021 SARS-CoV-2 (COVID-19) RNA [place]+probe Ql (Unsp spec) Detected Abnormal Not Detected [facility] Comment on above: Result Comment: Stefanie ents who have a positive COVID-19 test result may now have treatment options. Treatment options are available for patients with mild to moderate symptoms and for hospitalized patients. Visit our website at [email or web address] for resources and information. This nucleic acid amplification test was developed and its performance characteristics determined by [employer]. Nucleic acid amplification tests include RT-PCR and TMA. This test has not been FDA cleared or approved. This test has been authorized by FDA under an Emergency Use Authorization (EUA). This test is only authorized for the duration of time the declaration that circumstances exist justifying the authorization of the emergency use of in vitro diagnostic tests for detection of SARS-CoV-2 virus and/or diagnosis of COVID-19 infection under section 564(b)(1) of the Act, 21 U.S.C. 360bbb-3(b) (1), unless the authorization is terminated or revoked sooner. When diagnostic testing is negative, the possibility of a false negative result should be considered in the context of a patient's recent exposures and the presence of clinical signs and symptoms consistent with COVID-19. An individual without symptoms of COVID-19 and who is not shedding SARS-CoV-2 virus would expect to have a negative (not detected) result in this assay. Performed at: [facility] [address], [place], [place] [id number] Miller Head Assistant Wet Process: [employer] PhD, Phone: [phone] Performed By: #### L COV #### [place] [address] CHEST APon 02-22-2021 CHEST AP EXAMINATION: ONE XRAY VIEW OF THE CHEST 02/22/2021 11:50 am COMPARISON: None. HISTORY: ORDERING SYSTEM PROVIDED HISTORY: cough FINDINGS: Cardiomediastinal silhouette: No cardiomegaly or obvious acute process is identified. Lungs/pleura: No acute pulmonary infiltrate, pleural effusion, or pneumothorax is identified. Other: No additional acute abnormality. IMPRESSION: No acute cardiopulmonary process is identified by PA chest x-ray. Normal [facility] EMERGENCY DEPARTMENTon 02-22 [place] [address] HEALTH INFORMATION MANAGEMENT EMERGENCY DEPARTMENT : [phone] Signed Patient: DONTAE PARRA Acct:[id number] MRUN: Lolly [id number] : 1975 Sex: M Loc: ED ADM Date: Room/Bed: DISC Date: HPI - General Chief Complaint: Respiratory Distress Stated Complaint: COVID + SOB FEVER HEADACHE Symptom onset: onset last at 2100 vomiting general malaise fatigue fever painful inspira HPI: stated he feels like he is unable to takea deep breath also stated he feels as if his throat will not realx and allow him to breathe Time Seen by Provider: 02/22/21 11:26 Nurses Notes Reviewed and Agreed With?: Yes Source: Patient Mode of Transport: Ambulatory - History of Present Illness Initial Comments: 45-year-old male who presents with cough congestion. Patient states he recently had a Covid test done which was a home-based and it was positive. Patient wants retested. Patient states he is unable to take deep breath states he feels like his throat will not relax and allow him to breathe. Patient is a smoker. Patient denies any chest pain. Patient has productive cough. Patient denies any loss of taste or smell. Patient is unvaccinated. Onset/Timin -: days(s) Associated S/S: chills, fever questionable, headache, lightheadedness, myalgias, nasal congestion, pain-other, shortness of breath, sore throat, vomiting, wheezing. denies: chest pain, dizziness, earache, facial pain Pain severity: mild, moderate Pain severity scale: 5 Pain quality: aching Pain consistency: intermittent Cough quality/degree: moderate, dry cough, non-productive Context: getting worse, Hx COPD, illness exposure, smoke exposure, unknown cause Treatments CUSTOMER ASSOCIATE: none - Related Data Home medications and allergies reviewed: Yes Review of System - Constitutional Constitutional: Present: see HPI, Well developed, Well nourished, Non-toxic, chills, fever, malaise, other (cough/covid) - Nose,Throat,Mouth Nose (ROS): Present: see HPI, congestion. Absent: pain Throat: Present: see HPI, pain. Absent: swelling, discharge Mouth: Present: no symptoms reported. Absent: pain, swelling - Respiratory Respiratory: Present: see HPI, cough, short of breath, wheezing. Absent: sputum - CV Cardiology: Present: see HPI. Absent: chest pain, edema - GI Gastrointestinal/Abdo carmen: Present: see HPI, nausea, vomiting. Absent: abdominal pain, other - Genitourinary Symptoms: Absent: dysuria, pain - Neuro Neurological: Present: see HPI, anxiety - Muskuloskeletal Musculoskeletal: Absent: back pain, joint pain, joint swelling - Integumentary Skin: Absent: lesions, rash - Allergic/Immunologic Immunological/Allergi c: Present: no symptoms reported - Hematologic Hematologic/Lymphatic : Absent: easy bleeding, easy bruising, swollen glands - Endocrine Endocrine: Present: no symptoms reported - Psychiatric Psychiatric: Present: Normal Affect, Normal Mood, Anxious, Oriented. Absent: Depressed - All Others/Exceptions All Other Systems: Reviewed and Negative Except Where Noted in Documentation ED PMH/Social HX/Family HX - Respiratory Hx Respiratory Disorders: No - Cardiovascular PMH--Cardiovascular: Heart Attack, HTN, Hypercholesterolemia - Neurological Hx Neurological Disorder: No - Gastrointestinal Hx Gastrointestinal Disorders: No - Genitourinary Hx Genitourinary Disorders: No - Musculoskeletal Hx Musculoskeletal Disorders: No - Psychological Hx Psychosocial Problems: No - HEENT Hx Ear, Nose Throat Disorders: No - Cancer Hx Cancer: No - Social History Able to Read: Yes Able to Write: Yes Smoking Status: Heavy Smoker (>10 cig/day) Hx Chewing Tobacco Use: No Alcohol Use: Never Any recreational drug use reported?: No Feels Threatened In Home Environment: No Feels Threatened In a Relationship: No - [place]/Gender ID What is your current Gender Identity? Choose all that Apply: Male - [place]-Suicide Severity Rating Scale 1) Wish to be :: No 2) Suicidal Thoughts:: No 6) Suicidal Behavior Question (A): LIFETIME: No 6) Suicidal Behavior Question (B): PAST 3 MONTHS: No General Exam - General Limitations: Complains of: no limitations Constitutional: Present: see HPI, Well developed, Well nourished, well hydrated, Non-toxic, chills, fever, malaise, other (cough/covid) - Head Head exam: Present: atraumatic, normocephalic, normal inspection - Eye Eye exam: Present: normal apperance, normal accomodation, EOMI Pupils: Present: PERRL - ENT ENT exam: Present: normal orophraynx, TMs clear w/ good light reflex, mucous membranes moist, No Nasal Discharge, normal external ear exam, Posterior Pharynx Erethemetous - Nec (more content not included)... Normal [facility] SARS Antigen (Rapid)on 02-22 SARS Antigen Negative Normal Negative [facility] Comment on above: Result Comment: The Gala 2 SARS Antigen [place] is a lateral flow immunofluorescent sandwich assay that is used with the Gala 2 instrument intended for the qualitative detection of the nucleocapsid protein antigen from SARS-CoV-2 in nasopharyngeal (CORPORATE TRAVEL MANAGER) and nasal (NS) swab specimens directly or after the swabs have been added to viral transport media from individuals who are suspected of COVID-19 by their healthcare provider. Testing is limited to laboratories certified under the Clinical Laboratory Improvement Amendments of 1988 (CLIA), 42 U.S.C. ?263a, that meet the requirements to perform moderate, high or waived complexity tests. This test is authorized for use at the Point of Care (POC), i.e., in patient care settings operating under a CLIA Certificate of Waiver, Certificate of Compliance, or Certificate of Accreditation. The SARS Antigen [place] does not differentiate between SARS-CoV and SARS-CoV-2. Results are for the identification of SARS-CoV-2 nucleocapsid protein antigen. Antigen is generally detectable in upper respiratory specimens during the acute phase of infection. Positive results indicate the presence of viral antigens, but clinical correlation with patient history and other diagnostic information is necessary to determine infection status. Positive results do not rule out bacterial infection or co-infection with other viruses. The agent detected may not be the definite cause of disease. Negative results should be treated as presumptive and confirmed with a molecular assay, if necessary for patient management. Negative results do not rule out COVID-19 and should not be used as the sole basis for treatment or patient management decisions, including infection control decisions. Negative results should be considered in the context of a patient?s recent exposures, history and the presence of clinical signs and symptoms consistent with COVID-19. Performed By: #### [facility] #### [place] [address] Echo Stress Echo w/wo Jovanny pastor 12-20-2016 Echo Stress Echo w/wo Contrast Patient Name: DONTAE PARRA Ultrasound Exam Date/Time 12/20/2016 14:13:30 EDT Exam Echo Stress Echo w/wo Contrast Ordering Physician VAUGHN VILLEGAS CAYLA Accession Number [id number] Reason For Exam angina Report STRESS ECHOCARDIOGRAM Rito Protocol PATIENT: Dontae Parra STUDY DATE: 12/20/2016 : 1975 AGE: 41 HT/WT: 182.9 cm (72 98.9 kg in) (217.5 lb) GENDER: M BP: LOCATION: [facility] and PATIENT Outpatient [place] STATUS: *ORDERING PHYSICIAN: * Merly Villegas *SUPERVISING PHYSICIAN: * Jimbo *RN: * Mike Howard RN Olinger, Redle, MD Debra *READING PHYSICIAN: * Jimbo Butler MD *EDUCATIONAL SPEECH LANGUAGE CLINICIAN: * Rosalva Mack --- INDICATIONS: Angina decubitus (I20.8). --- HISTORY: Dyslipidemia. Asthma. Chronic obstructive pulmonary disease. Myocardial infarction. Palpitations and chest pain with exertion resolves with rest and/or SL NTG Tobacco use current CAD, GERD Hypertension treated The last beta hola was taken by the patient on 12/20/2016 06:00 AM. Medications: Aspirin. Carvedilol (Coreg). Clopidogrel (Plavix). Lisinopril (Zestril). Pravastatin (Crestor, Pravachol). Omeprazole (Prilosec). Allergies: Atorvastatin, Isosorbide Patient is NPO per policy. Catheterization (2016). There was a stenosis which was treated with a stent. --- CONCLUSIONS SUMMARY: 1. Left ventricle: Systolic function is normal by visual assessment. The estimated ejection fraction is 60%. 2. Stress: Functional capacity is good. 13 METS achieved. 3. Stress ECG conclusions: Degroot scoring: exercise time of 12 min; maximum ST deviation of 0 mm; angina present but did not limit exercise; resulting score is 8. This score predicts a low risk of cardiac events. 4. Stress echo: Left ventricular ejection fraction was normal at rest and with stress. There is no evidence for stress-induced ischemia. 5. Normal study after maximal exercise. --- STUDY DATA: Stress echocardiogram. Procedure: Initial setup. A baseline ECG was recorded. Surface ECG leads and blood pressure measurements were monitored. Treadmill exercise testing was performed using the Rito protocol. The patient exercised for 12 min, to a maximal work rate of 13 mets. Exercise was terminated due to moderate chest discomfort and moderate fatigue. Post-stress images were obtained within 90 seconds of peak stress. Transthoracic stress echocardiography. Images were captured at baseline and peak exercise. Exercise was terminated when the patient's Fausto scale was 17. M-mode, limited 2D, limited spectral Doppler, and color flow Doppler images were acquired and archived for permanent storage and are available for subsequent review. Study status: Routine. Patient status: Outpatient. Pre pain assessment is 0 out of 10. Post pain assessment is 0 out of 10. Location: Echo laboratory. Consent: The procedure was reviewed with the patient and the patient voices understanding. Study completion: The patient tolerated the procedure well. There were no complications. Discharge: Discharge instructions given The patient was discharged to homewhile ambulatory. --- FINDINGS LEFT VENTRICLE: The cavity size is normal. Wall thickness is normal. Systolic function is normal by visual assessment. The estimated ejection fraction is 60%. RIGHT VENTRICLE: The cavity size is normal. Wall thickness is normal. Systolic function is normal. Right ventricular systolic pressure is within the normal range. MITRAL VALVE: Structurally normal valve. Doppler: There is no regurgitation. AORTIC VALVE: Structurally normal valve. Trileaflet. Doppler: There is no regurgitation. TRICUSPID VALVE: Structurally normal valve. Doppler: There is trivial, less than 1+ regurgitation. PERICARDIUM: There is no pericardial effusion. BASELINE ECG: Normal sinus rhythm. STRESS PROTOCOL: + +---+-- + +-- --------+ !Stage !HR !BP (mmHg) !Symptoms !Comments ! + +---+-- + +-- --------+ !Rest !83 !118/80 (93) !None !O2 sat 98%! + +---+-- + +-- --------+ !Peak stress !179!166/92 (117)!3 out of 10 chest discomfort! ! + +---+-- + +-- --------+ !Recovery !133!160/80 (107)!Subsiding ! ! + +---+-- + +-- --------+ !Late recovery!100!132/78 (96) !None ! ! + +---+-- + +-- --------+ STRESS RESULTS: Peak heart rate during stress was 179 bpm (101% of maximal predicted heart rate). The maximal predicted heart rate was 178 bpm.The target heart rate was achieved. The heart rate recovery at one minute is normal. The heart rate at 1 minute into recovery was 133 bpm. The heart rate response to stress was normal. There is an appropriate response to stress. The rate-pressure product for the peak heart rate and blood pressure was 26034 mm Hg/min. 3 out of 10 stress-induced chest pain which resolved spontaneously. Functional capacity is good. STRESS ECG: Degroot scoring: exercise time of 12 min; maximum ST deviation of 0 mm; angina present but did not limit exercise; resulting score is 8. This score predicts a low risk of cardiac events. No stress induced ECG changes suggestive of ischemia. Baseline: LV size is normal. LV global systolic function is normal. Normal wall motion; no LV regional wall motion abnormalities. Wall motion score: 1.00. Peak stress: LV size is normal. LV global systolic function is normal. Normal wall motion; no LV regional wall motion abnormalities. No evidence for new LV regional wall motion abnormalities. Wall motion score: 1.00. STRESS ECHO RESULTS: Left ventricular ejection fraction was normal at rest and with stress. There is no evidence for stress-induced ischemia. --- Measurements Left ventricle Value 10/20/2015 Reference LV ID, ED 4.9 cm 4.7 4.2 - 5.9 LV ID, ES 3.6 cm 3.6 --------- LV PW thickness, ED 0.6 cm 0.9 0.6 - 1.0 LV end-diastolic volume, 1-p A4C 150 ml 141 67 - 155 LV end-systolic volume, 1-p A4C 49 ml 80 22 - 58 LV end-diastolic volume, 2-p 132 ml 144 67 - 155 LV end-systolic volume, 2-p 52 ml 65 22 - 58 LV ejection fraction, 2-p 60 % 50 >=55 Ventricular septum Value 10/20/2015 Reference IVS thickness, ED 0.9 cm 1.0 0.6 - 1.0 Legend: (L) and (H) malcom values outside specified reference range. Electronically signed by Jimbo Butler MD 12/20/2016 16:36 Final Dictated: 12/20/2016 4:36 pm Dictating Physician: JIMBO BUTLER Signed Date and Time: 12/20/2016 4:36 pm Signed by: JIMBO BUTLER [facility] CR Chest Portableon 11-21-19 CR Chest Portable Patient Name: DONTAE PARRA Diagnostic Radiology Exam Date/Time 11/20/2016 21:47:24 EDT Exam CR Chest Portable Ordering Physician BERTO CALERO SCOTT Accession Number [id number] CPT4 Codes 44574 () Reason For Exam chest pain Report Indication: Chest pain. A frontal view of the chest timed 2130 is compared to the study dated 09/19/2016. The heart is not enlarged. The mediastinum and pulmonary vascularity are within normal limits. Mild atelectatic changes are identified in the bilateral lower lungs. There are no areas of consolidation. There are no pleural effusions. IMPRESSION: 1. No evidence of consolidation. Mild bibasilar atelectatic changes. Report Dictated on Final Dictated: 11/20/2016 9:54 pm Dictating Physician: DO MITCHELL ANTHONY Signed Date and Time: 11/20/2016 9:55 pm Signed by: DO MITCHELL ANTHONY Transcribed Date and Time: 11/20/2016 9:54 Normal [facility] CTA Chest/Abdomen/Pelvis w/ + w/o contraon 11-20-2016 CTA Chest/Abdomen/Pelvis w/ + w/o contra Patient Name: DONTAE PARRA CT Exam Date/Time 11/20/2016 20:56:40 EDT Exam CTA Chest/Abdomen/Pelvis w/ + w/o contra Ordering Physician MD JANET, MURPHY Accession Number [id number] CPT4 Codes Q9967 (), 64098 (), 84620 () Reason For Exam chest/abdominal pain. concern for dissection Report CLINICAL INFORMATION: Chest and abdominal pain. Evaluate for aortic dissection. CTA CHEST WITH INTRAVENOUS CONTRAST WITH 3-D RECONSTRUCTIONS: Contrast: Isovue-370, [address] images were obtained from the thoracic inlet to the upper abdomen in the usual fashion before and following intravenous contrast administration with axial, sagittal and coronal 2-D reconstructions. Additional 3-D survey surface shaded images of the thoracic aorta and pulmonary arteries were concurrently generated by me on the [employer] workstation to better visualize gross vascular anatomy. No filling defects are seen in the main, right or left pulmonary arteries or their major branches. There is no evidence of pulmonary embolic disease. No mediastinal or hilar mass or lymphadenopathy is seen. There are irregular parenchymal densities in the dependent portions of both lower lobes most likely dependent atelectasis. There are centrilobular emphysematous changes throughout both lungs with multiple small subpleural blebs or small bulla in the periphery of both upper lobes. There are additional irregular parenchymal densities in both lower lobes most likely chronic fibrosis. There is no evidence of thoracic aortic aneurysm or dissection. IMPRESSION: 1. No evidence of thoracic aortic aneurysm or dissection. 2. No evidence of pulmonary embolic disease. 3. Centrilobular emphysematous changes with multiple bilateral upper lobe subpleural blebs or small bulla. Number four irregular parenchymal densities in both lower lobes most likely scarring and dependent atelectasis. CTA ABDOMEN AND PELVIS WITH INTRAVENOUS CONTRAST WITH 3-D RECONSTRUCTIONS: Contrast: Omnipaque 350, 75 mL. ABDOMEN: Volume acquisition CT images are obtained from diaphragm to iliac crests following intravenous contrast administration with axial, coronal and sagittal 2-D reconstructions. Additional multiprojection surface shaded 3-D images of the abdominal aorta were generated by me on the [employer] workstation. There is no evidence for abdominal aortic aneurysm or dissection. There is mild minimally calcified atherosclerotic plaque of the distal abdominal aorta. No fluid or blood is seen in the retroperitoneum. The liver, spleen, pancreas and kidneys are grossly unremarkable in size, configuration and density. There is no hydronephrosis. There is no gross abnormality of the gallbladder. No ascites or retroperitoneal lymphadenopathy is seen. No focal mass, fluid collection or inflammatory changes are identified. PELVIS: Volume acquisition CT images were obtained from the iliac crests to the symphysis pubis following intravenous contrast administration with axial, coronal and sagittal 2-D reconstructions. Additional multiprojection surface shaded 3-D images of the distal abdominal aorta and iliac arteries were generated by me on the [employer] workstation. There is no evidence for common, internal or external iliac artery aneurysm. There is no evidence of pelvic hematoma. No free fluid or blood is seen within the pelvis. There is an incompletely distended unopacified urinary bladder without gross abnormality. No focal mass or fluid collection is seen. There is no iliac or inguinal lymphadenopathy. No inflammatory changes are identified. IMPRESSION: 1. No evidence for abdominal aortic aneurysm or dissection. 2. No evidence of iliac artery aneurysm or dissection. 3. Mild minimally calcified distal abdominal aortic atherosclerotic plaque. 4. No evidence of mass, lymphadenopathy or inflammatory changes. Report Dictated on Final Dictated: 11/20/2016 9:54 pm Dictating Physician: MD WASHINGTON HARLAN Signed Date and Time: 11/20/2016 10:03 pm Signed by: MD WASHINGTON HARLAN Transcribed Date and Time: 11/20/2016 9:54 Normal [facility] Comp Metabolic Panelon 11-20 Anion gap 10 mmol/L Normal [facility] Comment on above: Performed By: #### H DOEG CMP3, TROPN ####[address] [address] Alkaline phosphatase (ALP) 92 U/L Normal 45-117 [facility] Comment on above: Performed By: #### H LESLY CMP3, TROPN ####[address] [address] Protein 7.0 g/dL Normal 6.4-8.2 [facility] Comment on above: Performed By: #### H CATHY GRACE3, TROPN ####[address] [place] [address] Bilirubin (total) 0.6 mg/dL Normal 0.2-1.0 [facility] Comment on above: Performed By: #### H CATHY GRACE3, TROPN ####[address] [place] [address] Alanine aminotransferase (ALT) 22 U/L Normal 12-78 [facility] Comment on above: Performed By: #### H CATHY GRACE3, TROPN ####[address] [place] [address] Aspartate aminotransferase (AST) 13 U/L Low 15-37 [facility] Comment on above: Result Comment: Slig htly hemolysed, interpret with caution. Performed By: #### H CTAHY GRACE3, TROPN ####[address] [place] [address] Creatinine 1.09 mg/dL Normal 0.55-1.40 [facility] Comment on above: Performed By: #### H CATHY GRACE3, TROPN ####[address] [place] [address] eGFR (black) mL/min/{1.73_m2} Normal >60 [facility] Comment on above: Performed By: #### H CATHY GRACE3, TROPN ####[address] [place] [address] eGFR (non-black) mL/min/{1.73_m2} Normal >60 [facility] Comment on above: Result Comment: Sour ce- MDRD equation with creatinine calibration to IDMS(NKDEP)eGFR not recommended for drug dose adjustment Performed By: #### H LESLY CMP3, TROPN ####[address] [place] [address] Albumin 3.7 g/dL Normal 3.4-5.0 [facility] Comment on above: Performed By: #### H EMOAnne Marie, CMP3, TROPN ####[place] [place] [place] [address] Chloride 106 mmol/L Normal 98-109 [facility] Comment on above: Performed By: #### H EMOG, CMP3, TROPN ####[address] [place] [address] Glucose mass conc 160 mg/dL High 70-100 [facility] Comment on above: Performed By: #### H EMOAnne Marie, CMP3, TROPN ####[address] [place] [address] Potassium molar conc 3.5 mmol/L Normal 3.5-5.1 [facility] Comment on above: Result Comment: Slig htly hemolysed, interpret with caution. Performed By: #### H LESLY, CMP3, TROPN ####[address] [place] [address] Sodium 142 mmol/L Normal 135-145 [facility] Comment on above: Performed By: #### H LESLY CMP3, TROPN ####[address] [place] [address] Urea nitrogen 14 mg/dL Normal 7-25 [facility] Comment on above: Performed By: #### H EMOAnne Marie, CMP3, TROPN ####[address] [place] [address] Calcium 9.0 mg/dL Normal 8.2-10.1 [facility] Comment on above: Performed By: #### H LESLY CMP3, TROPN ####[address] [place] [address] CO2 26 mmol/L Normal 21-32 [facility] Comment on above: Performed By: #### H EMOAnne Marie CMP3, TROPN ####[address] [place] [address] Hemogramon 11-20-2016 Erythrocyte distribution width Auto Ratio (RBC) 13.4 % Normal 11.5-14.5 [facility] Comment on above: Performed By: #### H EMOAnne Marie CMP3, TROPN ####[address] [address] Erythrocytes (RBC) 5.01 10*6/uL Normal 4.40-5.90 [facility] Comment on above: Performed By: #### H EMOG, CMP3, TROPN ####[address] [address] Hematocrit (HCT) 44.6 % Normal 40.0-52.[address] [facility] Comment on above: Performed By: #### H EMOG, CMP3, TROPN ####[address] [address] Hemoglobin mass conc (Bld) 15.3 g/dL Normal 13.0-18.0 [facility] Comment on above: Performed By: #### H EMOAnne Marie, CMP3, TROPN ####[address] [address] MCH 30.5 pg Normal 26.0-34.0 [facility] Comment on above: Performed By: #### H EMOG, CMP3, TROPN ####[address] [address] MCHC mass conc (RBC) 34.3 % Normal 32.0-36.0 [facility] Comment on above: Performed By: #### H EMOG, CMP3, TROPN ####[address] [address] MCV 88.9 fL Normal 80.0-98.0 [facility] Comment on above: Performed By: #### H EMOG, CMP3, TROPN ####[address] [address] Platelet mean volume (PMV) 6.8 fL Low 7.4-10.4 [facility] Comment on above: Performed By: #### H EMOG, CMP3, TROPN ####[address] [address] Platelets 323 10*3/uL Normal 140-440 [facility] Comment on above: Performed By: #### H EMOG, CMP3, TROPN ####[place] [address] WBC (Leukocytes) 8.9 10*3/uL Normal 3.6-10.7 [facility] Comment on above: Performed By: #### H EMOAnne Marie CMP3, TROPN ####[place] [address] Troponin Ion 11-20-2016 Troponin I.cardiac mass conc ng/mL Normal 0.000-0.04 5 [facility] Comment on above: Result Comment: 0.04 6 - 0.400 = Indeterminate> 0.400 = Consider Myocardial Injury Performed By: #### H LESLY CMP3, TROPN ####[place] [address] Basic Metabolic Panelon 08-0 Anion gap 9 mmol/L Normal [facility] Comment on above: Performed By: #### H EMDF, BMP3, TROPN ####[place] [address] Creatinine 1.14 mg/dL Normal 0.55-1.40 [facility] Comment on above: Performed By: #### H EMDF, BMP3, TROPN ####[place] [address] eGFR (black) mL/min/{1.73_m2} Normal >60 [facility] Comment on above: Performed By: #### H EMDF, BMP3, TROPN ####[place] [address] eGFR (non-black) mL/min/{1.73_m2} Normal >60 [facility] Comment on above: Result Comment: Sour ce- MDRD equation with creatinine calibration to IDMS(NKDEP)eGFR not recommended for drug dose adjustment Performed By: #### H EMDF, BMP3, TROPN ####[place] [address] Glucose mass conc 98 mg/dL Normal 70-100 [facility] Comment on above: Performed By: #### H EMDF, BMP3, TROPN ####[address] [address] CO2 27 mmol/L Normal 21-32 [facility] Comment on above: Performed By: #### H EMDF, BMP3, TROPN ####[address] [address] Urea nitrogen 11 mg/dL Normal 7-25 [facility] Comment on above: Performed By: #### H EMDF, BMP3, TROPN ####[address] [address] Calcium 9.4 mg/dL Normal 8.2-10.1 [facility] Comment on above: Performed By: #### H EMDF, BMP3, TROPN ####[address] [address] Chloride 106 mmol/L Normal 98-109 [facility] Comment on above: Performed By: #### H EMDF, BMP3, TROPN ####[address] [address] Potassium molar conc 3.8 mmol/L Normal 3.5-5.1 [facility] Comment on above: Result Comment: Slig htly hemolysed, interpret with caution. Performed By: #### H EMDF, BMP3, TROPN ####[address] [address] Sodium 142 mmol/L Normal 135-145 [facility] Comment on above: Performed By: #### H EMDF, BMP3, TROPN ####[address] [address] CR Chest PA/LATon 09-19-2016 CR Chest PA/LAT Patient Name: DONTAE PARRA Diagnostic Radiology Exam Date/Time 09/19/2016 09:05:22 EDT Exam CR Chest PA/LAT Ordering Physician NESSA NGUYEN, CARLY Accession Number [id number] CPT4 Codes 75489 () Reason For Exam CP Report Clinical indication: Chest pain Comparison: 04/09/2016 The cardiac silhouette and mediastinal contours are not enlarged. The lungs are clear. No pleural effusions are noted. The osseous structures appear grossly intact. IMPRESSION: NO ACUTE RADIOGRAPHIC ABNORMALITY IS NOTED IN THE CHEST. Report Dictated on Final Dictated: 09/19/2016 9:41 am Dictating Physician: MD DHILLON DIANE Signed Date and Time: 09/19/2016 9:42 am Signed by: MD DHILLON DIANE Transcribed Date and Time: 09/19/2016 9:41 Normal [facility] Hemogram w/ Autodiffon 09-19 Abs Baso Cnt 0.0 10*3/uL Normal 0.0-0.2 [facility] Comment on above: Performed By: #### H EMDF BMP3, TROPN ####[address] [address] Basophils/100 WBC Auto (Bld) 0.5 % Normal [facility] Comment on above: Performed By: #### H EMDF, BMP3, TROPN ####[address] [address] Eosinophils 0.1 10*3/uL Normal 0.0-0.5 [facility] Comment on above: Performed By: #### H EMDF, BMP3, TROPN ####[address] [address] Eosinophils/100 leukocytes 1.9 % Normal [facility] Comment on above: Performed By: #### H EMDF, BMP3, TROPN ####[address] [address] Erythrocyte distribution width Auto Ratio (RBC) 13.3 % Normal 11.5-14.5 [facility] Comment on above: Performed By: #### H EMDF, BMP3, TROPN ####[address] [address] Erythrocytes (RBC) 5.06 10*6/uL Normal 4.40-5.90 [facility] Comment on above: Performed By: #### H EMDF, BMP3, TROPN ####[address] [address] Granulocytes/100 WBC (Bld) 68.6 % Normal [facility] Comment on above: Performed By: #### H EMDF, BMP3, TROPN ####[place] [address] Hematocrit (HCT) 44.5 % Normal 40.0-52.0 [facility] Comment on above: Performed By: #### H EMDF, BMP3, TROPN ####[place] [address] Hemoglobin mass conc (Bld) 15.2 g/dL Normal 13.0-18.0 [facility] Comment on above: Performed By: #### H EMDF, BMP3, TROPN ####[place] [address] Lymphocytes 1.8 10*3/uL Normal 1.0-4.3 [facility] Comment on above: Performed By: #### H EMDF, BMP3, TROPN ####[place] [address] Lymphocytes/100 leukocytes 22.6 % Normal [facility] Comment on above: Performed By: #### H EMDF, BMP3, TROPN ####[place] [address] MCH 30.1 pg Normal 26.0-34.0 [facility] Comment on above: Performed By: #### H EMDF, BMP3, TROPN ####[place] [address] MCHC mass conc (RBC) 34.2 % Normal 32.0-36.0 [facility] Comment on above: Performed By: #### H EMDF, BMP3, TROPN ####[place] [address] MCV 87.9 fL Normal 80.0-98.0 [facility] Comment on above: Performed By: #### H EMDF, BMP3, TROPN ####[place] [address] Monocytes 0.5 10*3/uL Normal 0.0-0.8 [facility] Comment on above: Performed By: #### H EMDF, BMP3, TROPN ####[address] [place] [address] Monocytes/100 leukocytes 6.4 % Normal [facility] Comment on above: Performed By: #### H EMDF, BMP3, TROPN ####[address] [place] [address] Neutrophils 5.5 10*3/uL Normal 1.8-7.0 [facility] Comment on above: Performed By: #### H EMDF, BMP3, TROPN ####[address] [place] [address] Platelet mean volume (PMV) 6.7 fL Low 7.4-10.4 [facility] Comment on above: Performed By: #### H EMDF, BMP3, TROPN ####[address] [address] Platelets 281 10*3/uL Normal 140-440 [facility] Comment on above: Performed By: #### H EMDF, BMP3, TROPN ####[address] [place] [address] WBC (Leukocytes) 8.1 10*3/uL Normal 3.6-10.7 [facility] Comment on above: Performed By: #### H EMDF, BMP3, TROPN ####[address] [place] [address] Troponin Ion 09-19-2016 Troponin I.cardiac mass conc 0.061 ng/mL High 0.000-0.04 5 [facility] Comment on above: Result Comment: 0.04 6 - 0.400 = Indeterminate> 0.400 = Consider Myocardial Injury Performed By: #### H EMDF, BMP3, TROPN ####[address] [place] [address] Vital Signs Date Time Vital Sign Value Performing Clinician Facility 12-01-2023 11:28-0400 SaO2% (BldA) [Mass fraction] 92 % Cabrera Thomas DO Work Phone: [facility] 12-01-2023 10:30-0400 Body temperature 98.4 [degF] Cabrera Thomas DO Work Phone: [facility] [employer] 12-01-2023 10:30-0400 Diastolic blood pressure 69 mm[Hg] Cabrera Thomas DO Work Phone: [facility] [employer] 12-01-2023 10:30-0400 Heart rate 78 /min Cabrera Thomas DO Work Phone: [facility] [employer] 12-01-2023 10:30-0400 Systolic blood pressure 116 mm[Hg] Cabrera Thomas DO Work Phone: [facility] [employer] 12-01-2023 08:12-0400 Respiratory rate 20 /min Cabrera Thomas DO Work Phone: [facility] [employer] 12-01-2023 02:57-0400 Body height 182.9 cm Cabrera Thomas DO Work Phone: [facility] [employer] 12-01-2023 02:57-0400 Body mass index (BMI) [Ratio] 29.16 kg/m2 Cabrera Thomas DO Work Phone: [facility] [employer] 12-01-2023 02:57-0400 Body weight 97.52 kg Cabrera Thomas DO Work Phone: [facility] 04-25-2023 12:47-0500 Body height 182.[address] Tim Alvarado Work Phone: [facility] 04-25-2023 12:47-0500 Body weight 99.[address] Tim Alvarado Work Phone: [facility] 04-25-2023 12:47-0500 Heart rate 89 /min Dr. Tim Alvarado Work Phone: [facility] 04-25-2023 12:47-0500 SaO2% (BldA) [Mass fraction] 95 % Dr. Tim Alvarado Work Phone: [facility] 03-21-2023 06:21-0500 Body mass index (BMI) [Ratio] 30.9 kg/m2 Dr. Tim Alvarado Work Phone: [facility] 03-21-2023 06:21-0500 Body temperature 97.1 [degF] Dr. Tim Alvarado Work Phone: [facility] 03-21-2023 06:21-0500 Body weight 103.[address] Tim Alvarado Work Phone: [facility] 03-21-2023 06:21-0500 Diastolic blood pressure 81 mm[Hg] Dr. Tim Alvarado Work Phone: [facility] 03-21-2023 06:21-0500 Heart rate 80 /min Dr. Tim Alvarado Work Phone: [facility] 03-21-2023 06:21-0500 Respiratory rate 20 /min Dr. Tim Alvarado Work Phone: [facility] 03-21-2023 06:21-0500 SaO2% (BldA) [Mass fraction] 94 % Dr. Tim Alvarado Work Phone: [facility] 03-21-2023 06:21-0500 Systolic blood pressure 123 mm[Hg] Dr. Tim Alvarado Work Phone: [facility] 03-01-2023 13:55-0500 Body mass index (BMI) [Ratio] 31.4 kg/m2 Dr. Tim Alvarado Work Phone: [facility] 03-01-2023 13:55-0500 Body weight 105.[address] Tim Alvarado Work Phone: [facility] 03-01-2023 13:55-0500 Diastolic blood pressure 69 mm[Hg] Dr. Tim Alvarado Work Phone: [facility] 03-01-2023 13:55-0500 Heart rate 82 /min Dr. Tim Alvarado Work Phone: [facility] 03-01-2023 13:55-0500 Respiratory rate 18 /min Dr. Tim Alvarado Work Phone: [facility] 03-01-2023 13:55-0500 Systolic blood pressure 116 mm[Hg] Dr. Tim Alvarado Work Phone: [facility] 01-24-2023 03:58-0500 Diastolic blood pressure 74 mm[Hg] Dr. Bria Olsen Work Phone: [facility] 01-24-2023 03:58-0500 Heart rate 73 /min Dr. Bria Olsen Work Phone: [facility] 01-24-2023 03:58-0500 Respiratory rate 16 /min Dr. Bria Olsen Work Phone: [facility] 01-24-2023 03:58-0500 SaO2% (BldA) [Mass fraction] 99 % Dr. Bria Olsen Work Phone: [facility] 01-24-2023 03:58-0500 Systolic blood pressure 118 mm[Hg] Dr. Bria Olsen Work Phone: [facility] 01-24-2023 01:58-0500 Body height 182.[address] Bria Olsen Work Phone: [facility] 01-24-2023 01:58-0500 Body mass index (BMI) [Ratio] 31.4 kg/m2 Dr. Bria Olsen Work Phone: [facility] 01-24-2023 01:58-0500 Body temperature 96.8 [degF] Dr. Bria Olsen Work Phone: [facility] 01-24-2023 01:58-0500 Body weight [address] Bria Olsen Work Phone: [facility] 01-22-2023 13:32-0500 Body mass index (BMI) [Ratio] 31.7 kg/m2 Dr. Bria Olsen Work Phone: [facility] 01-22-2023 13:32-0500 Body weight 106.[address] Bria Olsen Work Phone: [facility] 01-22-2023 13:32-0500 Diastolic blood pressure 80 mm[Hg] Dr. Bria Olsen Work Phone: [facility] 01-22-2023 13:32-0500 Heart rate 88 /min Dr. Bria lOsen Work Phone: [facility] 01-22-2023 13:32-0500 Respiratory rate 20 /min Dr. Bria Olsen Work Phone: [facility] 01-22-2023 13:32-0500 Systolic blood pressure 125 mm[Hg] Dr. Bria Olsen Work Phone: [facility] 01-08-2023 07:43-0500 Body mass index (BMI) [Ratio] 30.7 kg/m2 Dr. Bria Olsen Work Phone: [facility] 01-08-2023 07:43-0500 Body temperature 97.4 [degF] Dr. Bria Olsen Work Phone: [facility] 01-08-2023 07:43-0500 Body weight 102.[address] Bria Olsen Work Phone: [facility] 01-08-2023 07:43-0500 Diastolic blood pressure 76 mm[Hg] Dr. Bria Olsen Work Phone: [facility] 01-08-2023 07:43-0500 Heart rate 74 /min Dr. Bria Olsen Work Phone: [facility] 01-08-2023 07:43-0500 Respiratory rate 28 /min Dr. Bria Olsen Work Phone: [facility] 01-08-2023 07:43-0500 SaO2% (BldA) [Mass fraction] 96 % Dr. Bria Olsen Work Phone: [facility] 01-08-2023 07:43-0500 Systolic blood pressure 112 mm[Hg] Dr. Bria Olsen Work Phone: [facility] 11-06-2022 14:27-0400 Body mass index (BMI) [Ratio] 31.4 kg/m2 Dr. Bria Olsen Work Phone: [facility] 11-06-2022 14:27-0400 Body weight 105.[address] Bria Olsen Work Phone: [facility] 11-06-2022 14:27-0400 Diastolic blood pressure 84 mm[Hg] Dr. Bria Olsen Work Phone: [facility] 11-06-2022 14:27-0400 Heart rate 91 /min Dr. Bria Olsen Work Phone: [facility] 11-06-2022 14:27-0400 Respiratory rate 18 /min Dr. Bria Olsen Work Phone: [facility] 11-06-2022 14:27-0400 Systolic blood pressure 136 mm[Hg] Dr. Bria Olsen Work Phone: [facility] 10-17-2022 20:13-0400 Body height 182.9 cm JEANNIE REICHFIELD DO [facility] 10-17-2022 20:13-0400 Body temperature 98.24 [degF] JEANNIE REICHFIELD DO [facility] 10-17-2022 20:13-0400 Body weight 103 kg JEANNIE REICHFIELD DO [facility] 10-17-2022 20:13-0400 Diastolic Blood Pressure Non-Invasive 83 1 JEANNIE REICHFIELD DO [facility] 10-17-2022 20:13-0400 Heart rate 76 /min JEANNIE REICHFIELD DO [facility] 10-17-2022 20:13-0400 Respiratory rate 16 /min JEANNIE REICHFIELD DO [facility] 10-17-2022 20:13-0400 Systolic Blood Pressure Non-Invasive 134 1 JEANNIE GARNETT DO [facility] 10-05-2022 08:23-0400 Body mass index (BMI) [Ratio] 31.1 kg/m2 Dr. Bria Olsen Work Phone: [facility] 10-05-2022 08:23-0400 Body temperature 97.5 [degF] Dr. Bria Olsen Work Phone: [facility] 10-05-2022 08:23-0400 Body weight 104.[address] Bria Olsen Work Phone: [facility] 10-05-2022 08:23-0400 Diastolic blood pressure 77 mm[Hg] Dr. Bria Olsen Work Phone: [facility] 10-05-2022 08:23-0400 Heart rate 74 /min Dr. Bria Olsen Work Phone: [facility] 10-05-2022 08:23-0400 Respiratory rate 18 /min Dr. Bria Olsen Work Phone: [facility] 10-05-2022 08:23-0400 SaO2% (BldA) [Mass fraction] 96 % Dr. Bria Olsen Work Phone: [facility] 10-05-2022 08:23-0400 Systolic blood pressure 119 mm[Hg] Dr. Bria Olsen Work Phone: [facility] 08-28-2022 10:43-0400 Body height 182.[address] Jonh Boyd Work Phone: [facility] 08-28-2022 10:40-0400 Body mass index (BMI) [Ratio] 31.6 kg/m2 Dr. Jonh Boyd Work Phone: [facility] 08-28-2022 10:40-0400 Body temperature 98.4 [degF] Dr. Jonh Boyd Work Phone: [facility] 08-28-2022 10:40-0400 Body weight 105.[address] Jonh Boyd Work Phone: [facility] 08-28-2022 10:40-0400 Diastolic blood pressure 72 mm[Hg] Dr. Jonh Boyd Work Phone: [facility] 08-28-2022 10:40-0400 Heart rate 74 /min Dr. Jonh Boyd Work Phone: [facility] 08-28-2022 10:40-0400 Respiratory rate 22 /min Dr. Jonh Boyd Work Phone: [facility] 08-28-2022 10:40-0400 SaO2% (BldA) [Mass fraction] 95 % Dr. Jonh Boyd Work Phone: [facility] 08-28-2022 10:40-0400 Systolic blood pressure 116 mm[Hg] Dr. Jonh Boyd Work Phone: [facility] 07-10-2022 15:03-0400 Respiratory rate 18 /min Dr. Jonh Boyd Work Phone: [facility] 07-10-2022 09:55-0400 Body height 182.[address] Jonh Boyd Work Phone: [facility] 07-10-2022 09:55-0400 Body mass index (BMI) [Ratio] 31.3 kg/m2 Dr. Jonh Boyd Work Phone: [facility] 07-10-2022 09:55-0400 Body temperature 98.5 [degF] Dr. Jonh Boyd Work Phone: [facility] 07-10-2022 09:55-0400 Body weight 104.[address] Jonh Boyd Work Phone: [facility] 07-10-2022 09:55-0400 Diastolic blood pressure 76 mm[Hg] Dr. Jonh Boyd Work Phone: [facility] 07-10-2022 09:55-0400 Heart rate 97 /min Dr. Jonh Boyd Work Phone: [facility] 07-10-2022 09:55-0400 SaO2% (BldA) [Mass fraction] 98 % Dr. Jonh Boyd Work Phone: [facility] 07-10-2022 09:55-0400 Systolic blood pressure 114 mm[Hg] Dr. Jonh Boyd Work Phone: [facility] 06-15-2022 10:07-0400 Body height 182.[address] Jonh Boyd Work Phone: [facility] 06-15-2022 10:07-0400 Body mass index (BMI) [Ratio] 31.6 kg/m2 Dr. Jonh Boyd Work Phone: [facility] 06-15-2022 10:07-0400 Body weight 105.[address] Jonh Boyd Work Phone: [facility] 06-15-2022 10:07-0400 Diastolic blood pressure 77 mm[Hg] Dr. Jonh Boyd Work Phone: [facility] 06-15-2022 10:07-0400 Heart rate 74 /min Dr. Jonh Boyd Work Phone: [facility] 06-15-2022 10:07-0400 Respiratory rate 16 /min Dr. Jonh Boyd Work Phone: [facility] 06-15-2022 10:07-0400 Systolic blood pressure 126 mm[Hg] Dr. Jonh Boyd Work Phone: [facility] 05-29-2022 10:16-0400 Body height 182.[address] Jonh Boyd Work Phone: [facility] 05-29-2022 10:13-0400 Body mass index (BMI) [Ratio] 30.9 kg/m2 Dr. Jonh Boyd Work Phone: [facility] 05-29-2022 10:13-0400 Body temperature 97.4 [degF] Dr. Jonh Boyd Work Phone: [facility] 05-29-2022 10:13-0400 Body weight 103.[address] Jonh Boyd Work Phone: [facility] 05-29-2022 10:13-0400 Diastolic blood pressure 81 mm[Hg] Dr. Jonh Boyd Work Phone: [facility] 05-29-2022 10:13-0400 Heart rate 79 /min Dr. Jonh Boyd Work Phone: [facility] 05-29-2022 10:13-0400 Respiratory rate 22 /min Dr. Jonh Boyd Work Phone: [facility] 05-29-2022 10:13-0400 SaO2% (BldA) [Mass fraction] 97 % Dr. Jonh Boyd Work Phone: [facility] 05-29-2022 10:13-0400 Systolic blood pressure 133 mm[Hg] Dr. Jonh Boyd Work Phone: [facility] 05-22-2022 09:06-0400 SaO2% (BldA) [Mass fraction] 98 % Dr. Jonh Boyd Work Phone: [facility] 05-22-2022 07:58-0400 Body mass index (BMI) [Ratio] 30.1 kg/m2 Dr. Jonh Boyd Work Phone: [facility] 05-22-2022 07:58-0400 Body temperature 97.6 [degF] Dr. Jonh Boyd Work Phone: [facility] 05-22-2022 07:58-0400 Body weight 100.[address] Jonh Boyd Work Phone: [facility] 05-22-2022 07:58-0400 Diastolic blood pressure 74 mm[Hg] Dr. Jonh Boyd Work Phone: [facility] 05-22-2022 07:58-0400 Heart rate 77 /min Dr. Jonh Boyd Work Phone: [facility] 05-22-2022 07:58-0400 Respiratory rate 18 /min Dr. Jonh Boyd Work Phone: [facility] 05-22-2022 07:58-0400 Systolic blood pressure 107 mm[Hg] Dr. Jonh Boyd Work Phone: [facility] 02-01-2022 19:01-0500 Diastolic Blood Pressure Non-Invasive 60 1 MO GARAY MD [address] 02-01-2022 19:01-0500 Heart rate 78 /min MO GARAY MD [address] 02-01-2022 19:01-0500 Systolic Blood Pressure Non-Invasive 106 1 MO GARAY MD [facility] 02-01-2022 16:59-0500 Heart rate 77 /min MO GARAY MD [facility] 02-01-2022 15:12-0500 Heart rate 78 /min MO GARAY MD [facility] 02-01-2022 13:53-0500 Diastolic Blood Pressure Non-Invasive 60 1 MO GARAY MD [facility] 02-01-2022 13:53-0500 Systolic Blood Pressure Non-Invasive 101 1 MO GARAY MD [facility] 02-01-2022 13:17-0500 Diastolic Blood Pressure Non-Invasive 60 1 MO GARAY MD [facility] 02-01-2022 13:17-0500 Respiratory rate 16 /min MO GARAY MD [address] 02-01-2022 13:17-0500 Systolic Blood Pressure Non-Invasive 103 1 MO GARAY MD [address] [place] [address] 02-01-2022 12:32-0500 Blood Pressure Cuff Size MO GARAY MD [address] [place] [address] 02-01-2022 12:32-0500 Blood Pressure Location MO GARAY MD [address] 02-01-2022 12:32-0500 Blood Pressure Method MO GARAY MD [address] [place] [address] 02-01-2022 12:32-0500 Reason For Taking VItal Signs MO GARAY MD [address] [place] [address] 02-01-2022 12:32-0500 Respiratory rate 16 /min MO GARAY MD [address] [place] [address] 02-01-2022 11:53-0500 Blood Pressure Cuff Size MO GARAY MD [address] 02-01-2022 11:53-0500 Blood Pressure Location MO GARAY MD [address] [place] [address] 02-01-2022 11:53-0500 Blood Pressure Method MO GARAY MD [address] [place] [address] 02-01-2022 11:53-0500 Reason For Taking VItal Signs MO GARAY MD [address] 02-01-2022 05:44-0500 Blood Pressure Cuff Size MO GARAY MD [address] 02-01-2022 05:44-0500 Blood Pressure Location MO GARAY MD [address] [place] [address] 02-01-2022 05:44-0500 Blood Pressure Method MO GARAY MD [address] [place] [address] 02-01-2022 05:44-0500 Body height 185.4 cm MO GARAY MD [facility] 02-01-2022 05:44-0500 Body temperature 97.88 [degF] MO GARAY MD [facility] 02-01-2022 05:44-0500 Body weight 96.8 kg MO GARAY MD [facility] 02-01-2022 05:44-0500 Body weight 28.16 kg/m2 MO GARAY MD [facility] 08-31-2021 12:11-0400 Body height 182.9 cm Yony Spencerr DO Work Phone: [facility] 08-31-2021 12:11-0400 Body weight 100.7 kg Oyny Swoger DO Work Phone: [facility] 08-31-2021 12:11-0400 Diastolic blood pressure 79 mm[Hg] Yony Swoger DO Work Phone: [facility] 08-31-2021 12:11-0400 Heart rate 84 /min Yony Swoger DO Work Phone: [facility] 08-31-2021 12:11-0400 SaO2% (BldA) [Mass fraction] 95 % Yony Swoger DO Work Phone: [facility] 08-31-2021 12:11-0400 Systolic blood pressure 118 mm[Hg] Yony Swoger DO Work Phone: [facility] Encounters Encounter Date Encounter Type Care Provider Facility Start: 09-04-2024 ambulatory JEANNIE HERNANDEZ Facilit y:[facility] Start: 07-28-2024 End: 07-28-2024 ambulatory JEANNIE HERNANDEZ [employer] Facility:[facility] Start: 07-28-2024 End: 07-28-2024 Patient encounter procedure MICHELLE MOORE [employer]UMENT [employer] [facility] Start: 07-25-2024 End: 07-25-2024 ambulatory JEANNIE ELPIDIO [employer] Facility:[facility] Start: 07-25-2024 End: 07-25-2024 Patient encounter procedure JEANNIE ELPIDIO [employer]UMENT [employer]EL[employer] [facility] Start: 06-27-2024 End: 06-27-2024 ambulatory JEANNIE ELPIDIO Facility:[facility] Start: 06-19-2024 End: 06-19-2024 ambulatory JEANNIE ELPIDIO [employer] Facility:[facility] Start: 06-19-2024 End: 06-19-2024 Patient encounter procedure JEANNIE ELPIDIO [employer] [facility] Start: 06-18-2024 End: 06-18-2024 ambulatory JEANNIE ELPIDIO [employer] Facility:[facility] Start: 06-18-2024 End: 06-18-2024 Patient encounter procedure JEANNIE ELPIDIO [employer] [facility] Start: 05-14-2024 End: 05-14-2024 ambulatory JEANNIE ELPIDIO Facility:[facility] Start: 04-17-2024 ambulatory JEANNIE ELPIDIO Facilit y:[facility] Start: 04-11-2024 End: 04-11-2024 ambulatory JEANNIE ELPIDIO Facility:[facility] Start: 04-09-2024 ambulatory JEANNIE ELPIDIO Facilit y:[facility] Start: 03-28-2024 End: 03-28-2024 ambulatory JEANNIE ELPIDIO Facility:[facility] Start: 03-03-2024 ambulatory Elda Villegas NP Facility :[facility] Start: 02-29-2024 End: 02-29-2024 ambulatory JEANNIE ELPIDIO Facility:[facility] Start: 02-26-2024 End: 02-26-2024 ambulatory JEANNIE ELPIDIO Facility:[facility] Start: 02-21-2024 End: 02-21-2024 ambulatory JEANNIE ELPIDIO Facility:[facility] Start: 02-19-2024 End: 02-19-2024 ambulatory JEANNIE ELPIDIO Facility:[facility] Start: 02-19-2024 End: 02-19-2024 ambulatory JEANNIE ELPIDIO Facility:[facility] Start: 01-21-2024 End: 01-21-2024 ambulatory JEANNIE ELPIDIO Facility:[facility] Start: 01-14-2024 End: 01-14-2024 ambulatory JEANNIE ELPIDIO Facility:[facility] Start: 01-08-2024 End: 01-08-2024 ambulatory JEANNIE ELPIDIO Facility:[facility] Start: 12-25-2023 ambulatory JEANNIE ELPIDIO Facilit y:[facility] Start: 12-19-2023 End: 12-19-2023 ambulatory JEANNIE ELPIDIO [employer] Facility:[facility] Start: 12-19-2023 End: 12-19-2023 Patient encounter procedure LAURA WARREN [employer]UMENT [employer] [facility] Start: 12-01-2023 End: 12-01-2023 Evaluation and management of inpatient Cabrera Thomas DO Work Phone: [facility] Respiratory Unit 7W Comment on above: Fall, initial encoun ter (Primary Dx) Start: 11-30-2023 End: 12-01-2023 Emergency department patient visit MUMTAZ ESCALANTE [facility] Start: 11-20-2023 End: 11-20-2023 ambulatory JEANNIE ELPIDIO Facility:[facility] Start: 11-06-2023 End: 11-06-2023 ambulatory JEANNIE ELPIDIO Facility:[facility] Start: 10-11-2023 End: 10-11-2023 ambulatory JEANNIE ELPIDIO Facility:[facility] Start: 10-08-2023 End: 10-08-2023 ambulatory JEANNIE ELPIDIO Facility:[facility] Start: 09-19-2023 End: 09-19-2023 ambulatory JEANNIE ELPIDIO Facility:[facility] Start: 09-19-2023 End: 09-19-2023 ambulatory JEANNIE ELPIDIO Facility:[facility] Start: 09-17-2023 End: 09-17-2023 ambulatory JEANNIE ELPIDIO Facility:[facility] Start: 09-10-2023 End: 09-10-2023 ambulatory [facility] Facility:[facility] Start: 06-20-2023 End: 06-20-2023 ambulatory Out of Town Doctor [facility] Work Phone: Start: 06-20-2023 End: 06-20-2023 Patient encounter procedure Out Town Doctor [facility] Work Phone: Start: 04-26-2023 Non-patient / Non-visit Dr. Ortega Work Phone: [facility] Start: 04-25-2023 End: 04-25-[address] Tim Alvarado Work Phone: [facility] Work Phone: Start: 04-25-2023 End: 04-25-[address] Tim Alvarado Work Phone: [facility]Pulmonary Services/Neurology Work Phone: Start: 03-21-2023 End: 03-21-[address] Tim Alvarado Work Phone: [facility] Work Phone: Start: 03-01-2023 End: 03-01-[address] Tim Alvarado Work Phone: [facility] Work Phone: Start: 01-24-2023 End: 01-24-2023 Emergency department patient visit Dr. Bria Olsen Work Phone: [facility]Emergency Department Work Phone: Start: 01-22-2023 End: 01-22-[address] Bria Olsen Work Phone: [facility] Work Phone: Start: 01-22-2023 End: 01-22-[address] Bria Olsen Work Phone: [facility]-Radiology, [facility] Work Phone: Start: 01-08-2023 End: 01-08-[address] [facility] Work Phone: Start: 11-10-2022 Non-patient / Non-visit Dr. Jairo Olsen Work Phone: [facility] Start: 11-10-2022 End: 11-10-[address] [facility] Start: 11-06-2022 End: 11-06-[address] Bria Olsen Work Phone: [facility] Work Phone: Start: 10-17-2022 End: 10-17-2022 Emergency department patient visit [facility] Facility:[facility] Start: 10-17-2022 End: 10-17-2022 Emergency department patient visit [facility] Start: 10-05-2022 End: 10-05-[address] Bria [facility]lsen [facility] Work Phone: Start: 08-28-2022 End: 08-28-[address] Jonh Boyd [facility] Work Phone: Start: 08-15-2022 Non-patient / Non-visit Dr. Frazier Work Phone: [facility] Start: 08-14-2022 End: 08-14-[address] Jonh Boyd Work Phone: [facility] Work Phone: Start: 08-14-2022 End: 08-14-[address] Jonh Boyd Work Phone: [facility]-Pulmonary Services/Neurology Work Phone: Start: 07-18-2022 Non-patient / Non-visit Dr. Frazier Work Phone: [facility] Start: 07-18-2022 End: 07-18-[address] Jonh Boyd Work Phone: [facility] Work Phone: Start: 07-18-2022 End: 07-18-[address] Jonh Boyd Work Phone: [facility]-Cardiovascula r Services Start: 07-12-2022 End: 07-12-[address] Jnoh Boyd Work Phone: [facility] Work Phone: Start: 07-12-2022 End: 07-12-[address] Jonh Boyd Work Phone: [facility]-Laboratory Start: 07-10-2022 End: 07-10-[address] Jonh Boyd Work Phone: [facility]-Sleep Lab Start: 07-10-2022 End: 07-10-2022 Emergency department patient visit Dr. Jonh Boyd Work Phone: [facility]-Emergency Department Start: 06-16-2022 End: 06-16-[address] Jonh Boyd Work Phone: [facility] Work Phone: Start: 06-16-2022 End: 06-16-[address] Jonh Boyd Work Phone: [facility]-Pulmonary Services/Neurology Start: 06-15-2022 End: 06-15-[address] Jonh Boyd Work Phone: [facility] Start: 06-12-2022 End: 06-12-[address] Jonh Boyd Work Phone: [facility] Work Phone: Start: 06-12-2022 End: 06-12-[address] Jonh Boyd Work Phone: [facility]-Sleep Lab Start: 05-29-2022 End: 05-29-[address] [facility] Start: 05-25-2022 Non-patient / Non-visit Dr. Frazier Work Phone: [facility] Start: 05-25-2022 End: 05-25-[address] Jonh Boyd Work Phone: [facility] Work Phone: Start: 05-25-2022 End: 05-25-[address] Jonh Boyd Work Phone: [facility]-Pulmonary Services/Neurology Start: 05-24-2022 Non-patient / Non-visit Dr. Frazier Work Phone: [facility] Start: 05-22-2022 End: 05-22-[address] [facility] Start: 05-05-2022 ambulatory ELDA HUNTER MD Fac ility:B Start: 02-01-2022 End: 02-01-2022 ambulatory MO GARAY MD Facility:A Start: 02-01-2022 End: 02-01-2022 SAME DAY STAY MO GARAY MD [facility] Start: 01-26-2022 ambulatory Monroe Saludes Facility :[facility] Start: 09-06-2021 End: 09-06-2021 Subsequent hospital visit by physician Provider [facility] Comment on above: HEMOPTYSIS, CHRONIC OBSTRUCTIVE PULMONARY DISEASE Start: 09-01-2021 Telephone encounter Shanel Xena [facility] [place] Comment on above: Smoking Cessation Procedure Start: 08-31-2021 End: 08-31-2021 Patient encounter procedure Yony Newman Kjliamtl DO Work Phone: [facility] Pulmonary/Sleep/[facility] Comment on above: Hemoptysis (Primary Dx); Tobacco use current; Chronic obstructive pulmonary disease, unspecified COPD type (HCC); SOB (shortness of breath) on exertion; Coronary artery disease involving [place] coronary artery of [place] heart without angina pectoris; History of 2019 novel coronavirus disease (COVID-19) Start: 12-20-2016 Ambulatory MERLY NELLY [facility] Start: 11-20-2016 Ambulatory Dylan Sherita [facility] Start: 09-19-2016 Ambulatory Dylan Sherita [facility] Start: 08-06-2016 End: 08-07-2016 Emergency department patient visit NO REFERRING DR Facility:[facility] Procedures Date Procedure Procedure Detail Performing Clinician Start: 12-01-2023 Comprehensive metabo lic panel Tonya Perkins DO Work Phone: Start: 12-01-2023 End: 12-01-2023 Radex shoulder complete minimum 2 views Ranyd Benavidez MD Work Phone: Start: 12-01-2023 Ct angio abd&plvis c ntrst mtrl w/wo cntrst img Missy Jones DO Work Phone: Start: 01-24-2023 CT angiography of ch est with contrast Dr. Bria Olsen Work Phone: Start: 01-22-2023 Plain chest X-ray Dr. Wayne Olsen Work Phone: Start: 10-05-2022 Investigation of tra nsfusion reaction Dr. Bria Olsen Work Phone: Start: 10-05-2022 Respiratory microbia l culture Dr. Bria Olsen Work Phone: Start: 07-18-2022 Cardiovascular stres s test using pharmacologic stress agent Dr. Jonh Boyd Work Phone: Start: 07-10-2022 Plain chest X-ray Dr. Amy Boyd Work Phone: Start: 06-16-2022 CT angiography of he ad and neck Dr. Jonh Boyd Work Phone: Start: 06-16-2022 CT of thorax with contrast Dr. Jonh Boyd Work Phone: Start: 08-03-2016 Cardiac catheterization MO GARAY MD Comment on above: Has 8 stents per PCP note History of repair of inguinal hernia MO GARAY MD History of right tot al knee replacement MO GARAY MD Plan of Treatment Date Care Activity Detail Author Start: 2034 RSV Immunization age d 60 or older (1 - 1-dose 60+ series) RSV Immunization aged 60 or older (1 - 1-dose 60+ series) [facility] [employer] Start: 11-30-2024 Creatinine measurement Creatinine Le laura [facility] [employer] Start: 11-30-2024 Potassium measurement Potassium Leve l [facility] [employer] Start: 2024 Zoster Vaccines (1 of 2) Zoste r Vaccines (1 of 2) [facility] [employer] Start: 10-21-2023 COVID-19 Vaccine ( season) COVID-19 Vaccine ( season) [facility] [employer] Start: 10-21-2023 Influenza vaccination Influenza Vacc ine (#1) [facility] Start: 01-24-2023 [facility] Start: 10-20-2021 Influenza vaccination INFLUENZA (#1) [facility] Start: 02-10-2020 Pneumococcal Vaccine : Pediatrics (0 to 5 Years) and At-Risk Patients (6 to 64 Years) (2 of 2 - PPSV23 or PCV20) Pneumococcal Vaccine: Pediatrics (0 to 5 Years) and At-Risk Patients (6 to 64 Years) (2 of 2 - PPSV23 or PCV20) [facility] Start: 08-07-2019 DIABETES SCREEN DIABETES SCREEN [facility] Start: 07-05-2019 COLOGUARD (FIT-DNA) COLOGUARD (FIT-D NA) [facility] Start: 07-05-2019 Colonoscopy COLONOSCOPY [facility] Start: 07-05-2019 COLORECTAL CANCER SCREENING COLORECTAL CANCER SCREENING [facility] Start: 07-05-[address] COLONOGRAPHY [facility] Start: 07-05-2019 FECAL OCCULT BLOOD FECAL OCCULT BLOO D [facility] Start: 07-05-2019 SIGMOIDOSCOPY SIGMOIDOSCOPY [facility] Start: 05-02-2019 LIPID SCREEN LIPID SCREEN [facility] Start: 05-02-2015 Hepatitis B surface antibody level LDL CHOLESTEROL [facility] Start: 1993 DTaP/Tdap/Td Vaccine s (1 - Tdap) DTaP/Tdap/Td Vaccines (1 - Tdap) [facility] Start: 1993 Hepatitis B Vaccines (1 of 3 - 19+ 3-dose series) Hepatitis B Vaccines (1 of 3 - 19+ 3-dose series) [facility] Start: 1993 Urine microalbumin profile DTAP,TDAP ,TD (1 - Tdap) [facility] Start: 1992 ANNUAL PCP TEAM NBA [employer]ER CECI DISEASE VISIT ANNUAL PCP TEAM CHRONIC DISEASE VISIT [facility] Start: 1992 Diabetes mellitus screening Diabetes Screening [facility] Start: 1992 HEPATITIS C SCREENING HEPATITIS C [facility] Start: 1992 Hepatitis C screening Hepatitis C [facility] Start: 1992 HIV SCREENING HIV SCREENING [facility] Start: 1992 SPIROMETRY SPIROMETRY [facility] Start: 1986 Adult depression scr eening assessment DEPRESSION SCREENING [facility] Start: 1986 Depression Monitoring Depression [facility] Start: 1980 PNEUMOCOCCAL (1 - PCV) PNEUMOCOCCAL (1 - PCV) [facility] Start: 07-05-1975 MMR Vaccines (1 of 1 - Standard series) MMR Vaccines (1 of 1 - Standard series) [facility] Start: 01-04-1975 COVID-19 VACCINE (#1) COVID-19 VACCI NE (#1) [facility] Start: 1974 Echocardiography Echocardiogram [facility] Start: 1974 HIV screening HIV Screening [facility] Start: 1974 Lip[address]id Panel [facility] Start: 1974 Screening for malign ant neoplasm of colon [facility] End: 09-30-2022 BRONCHOSCOPY BRONCHOSCOPY Endoscopy Routine Hemoptysis 1 Occurrences starting 08/31/2021 until 09/30/2022 [facility] Work Phone: Comment on above: 1 Occurrences starti ng 08/31/2021 until 09/30/2022 CT Chest W contrast [facility] CTA Head vessels and Neck vessels W contrast IV [facility] Inhalation challenge test report Document --W methacholine inhaled [facility] Patient Education [facility] Work Phone: Patient referral [facility] Work Phone: Radionuclide imaging of perfusion of myocardium under exercise stress [facility] End: 09-30-2022 SPIROMETRY BASELINE ONLY SPIROMETRY BASELINE ONLY PFT Routine SOB (shortness of breath) on exertion 1 Occurrences starting 08/31/2021 until 09/30/2022 [facility] Work Phone: Comment on above: 1 Occurrences starti ng 08/31/2021 until 09/30/2022 Tobacco use cessatio n education [facility] Immunizations Immunization Date Immunization Notes Care Provider Klaudia lai 12-02-2023 influenza vaccine tiss-cult subunt (Flucelvax) STANDARD-DOSE injection 0.5 mL [employer] DO Work Phone: [facility] [employer] 12-16-2019 influenza virus vacc ine, unspecified formulation [employer] DO Work Phone: [facility] [employer] Payers Date Payer Category Payer Medicare [id number] 2024 Private Health Insurance [id number] 2024 Medicare [id number] 2024 Private Health Insurance [id number] 2023 Unknown 2022 Self-pay 2022 Medicaid [id number] 2022 Medicaid [id number] 2022 Unknown [id number] 2021 Unknown [employer] PPO [id number] 2021-Present [phone] [address] [place] [address] PPO [id number] 1974 Unknown [id number] 2.16.840.1.230285.3.579.2.6 27 1974 Unknown [id number] 2.16.840.1.685051.3.579.2.6 27 1974 Unknown [id number] 2.16.840.1.187941.3.579.2.6 27 1974 Unknown [id number] 2.16.840.1.819276.3.579.2.6 1974 Unknown [id number] 2.16.840.1.406343.3.579.2.6 27 1974 Unknown [id number] 2.16.840.1.624028.3.579.2.6 27 1974 Unknown [id number] 2.16.840.1.244570.3.579.2.6 27 1974 Unknown [id number] 2.16.840.1.019846.3.579.2.6 1974 Unknown [id number] 2.16.840.1.341556.3.579.2.6 27 Unknown [id number] Unknown [id number] 2.16.840.1.642998.3.579.2.4 62 Unknown [id number] 2.16.840.1.408194.3.579.2.4 62 Unknown [id number] 2.16.840.1.655640.3.579.2.4 62 Unknown [id number] 2.16.840.1.157426.3.579.2.4 62 Unknown [id number] 2.16.840.1.282303.3.579.2.4 62 Unknown [id number] 2.16.840.1.290347.3.579.2.4 62 Unknown [id number] 2.16.840.1.010998.3.579.2.4 62 Unknown [id number] 2.16.840.1.026175.3.579.2.4 62 Unknown [id number] 2.16.840.1.248024.3.579.2.4 62 Unknown [id number] 2.16.840.1.154578.3.579.2.4 62 Unknown [id number] 2.16.840.1.220875.3.579.2.4 62 Unknown [id number] 2.16.840.1.157291.3.579.2.4 62 Unknown [id number] 2.16.840.1.327326.3.579.2.4 62 Unknown [id number] 2.16.840.1.245263.3.579.2.4 62 Unknown [id number] 2.16.840.1.235457.3.579.2.4 62 Unknown [id number] 2.16.840.1.014771.3.579.2.4 62 Unknown [id number] 2.16.840.1.479257.3.579.2.4 62 Unknown [id number] 2.16.840.1.368357.3.579.2.4 62 Unknown [id number] 2.16.840.1.638860.3.579.2.4 62 Unknown [id number] 2.16.840.1.992412.3.579.2.4 62 Unknown [id number] 2.16.840.1.854704.3.579.2.4 62 Unknown [id number] 2.16.840.1.268737.3.579.2.4 62 Unknown [id number] 2.16.840.1.307940.3.579.2.4 62 Unknown [id number] 2.16.840.1.496624.3.579.2.4 62 Unknown [id number] 2.16.840.1.009324.3.579.2.4 62 Unknown [id number] 2.16.840.1.794576.3.579.2.4 62 Social History Date Type Detail Facility Start: 02-20-1996 Tobacco smoking stat us NDIS Smokes tobacco daily [facility] Start: 02-20-1996 History of tobacco use Smoker [facility] Start: 08-31-2021 End: 12-01-2023 Cigarettes smoked current (pack per day) - Reported 2 [facility] Start: 08-31-2021 Tobacco use and exposure Smokeless tobacco non-user [facility] Start: 08-31-2021 Alcohol intake Ex-drinker (finding) [facility] Start: 08-31-2021 Tobacco Comment now down to 1. 5 packs daily 08/31/2021 [facility] Start: 1975 Sex Assigned At Not on file [facility] Start: 08-21-2021 End: 08-31-2021 Exposure to SARS-CoV-2 (event) Not sure [facility] Start: 12-28-2021 Tobacco smoking status Heavy t obacco smoker (finding) [facility] Start: 1975 Sex Assigned At Male A [facility] Start: 05-29-2022 End: 03-21-2023 Tobacco smoking status NHIS Unknown if ever smoked [facility] End: 10-19-2015 History of tobacco use Cigarette Smoker [facility] [employer] Start: 01-02-2017 Alcoholic beverage intake Current non-drinker of alcohol (finding) [facility] [employer] Start: 12-01-2023 [facility] Utilities Lillie Luevano [facility] Has the [employer], [employer], [email or web address], or water company threatened to shut off services in your home in past 12Mo No [facility] How often to you hav e a drink containing alcohol? Never [facility] How many standard drinks containing alcohol do you have on a typical day? Patient does not drink [facility] (I/We) worried whe er (my/our) food would run out before (I/we) got money to buy more. Never true [facility] Tobacco Nicotine Use: 1 pack daily. Type: Cigarettes. Tobacco use per day: 20. [facility] Tobacco smoking status [facility] Start: 03-12-2019 Sex Male (finding) [facility] Functional Status Date Assessment Result Facility 10-17-2022 Functional Status Standard Safet y ID band on, Call device within reach, Bed in low position, Wheels locked, Upper/Half-Length side-rails up, Bedside Cart Locked, Safety level maintained [facility] 02-01-2022 Functional Status Ambulating in bahena, Ambulating in room [facility] 02-01-2022 Functional Status [facility] 02-01-2022 Functional Status Standard Safet y Safety level maintained [facility] 02-01-2022 Functional Status [facility] 02-01-2022 Functional Status Maintained [facility] Mental Status Date Assessment Result Facility 01-24-2023 Cognitive function Voice/Name [facility] Work Phone: 10-17-2022 Mental Status Orientation Oriented x 4 [facility] 02-01-2022 Mental Status Orientation Oriented x 4 [facility] 02-01-2022 Mental Status [facility] 02-01-2022 Mental Status [facility] Clinical Notes 08-31-2021 to 07-25-2024 Note Date & Type Note Facility 07-25-2024 Note Exam Date Time Procedure Performing Provider Status 07/25/24 1:[address] Head or Brain w/o Contrast NIVIA ROMERO MD; Auth (Verified) [id number] ORIGINAL HISTORY: TIA COMPARISON: No TECHNIQUE: Routine noncontrast head CT, with sagittal and coronal reconstructions. This exam was performed according to our departmental dose optimization program, and includes the following measures where applicable: automated exposure control, adjustment of the mAs and/or kVp according to patient size and/or exam, and an iterative reconstruction algorithm. FINDINGS: The ventricles and sulci are normal in size and configuration. There are no abnormal intra or extra-axial fluid collections. [place]-white matter differentiation is maintained. The calvaria and the bones of the base of the skull are intact. IMPRESSION: Negative. Interpreted by: Joel Romero MD Preliminary Report By: Joel Romero MD Electronically signed By Joel Romero MD Dictated Date: 07/25/2024 2:31:53 PM Prelim Date: 07/25/2024 2:32:39 PM Sign Date: 07/25/2024 2:32:39 PM Ordering Provider: [facility]04-30-2025 Note* Exam Date Time Procedure Performing Provider Status 06/18/24 4:[address] Abd/Pelvis w/ IV Contrast Only LEVON PASCUAL MD; Auth (Verified) [id number] ORIGINAL EXAMINATION: CT OF THE ABDOMEN AND PELVIS WITH CONTRAST 06/18/2024 4:43 pm TECHNIQUE: CT of the abdomen and pelvis was performed with the administration of intravenous contrast. Multiplanar reformatted images are provided for review. Automated exposure control, iterative reconstruction, and/or weight based adjustment of the mA/kV was utilized to reduce the radiation dose to as low as reasonably achievable. COMPARISON: None. HISTORY: ORDERING SYSTEM PROVIDED HISTORY: Reason for Exam: Right lower quadrant pain, GI bleed FINDINGS: Lower Chest: Coronary calcifications and/or stents. Normal heart size. Dependent atelectasis bilaterally. No focal consolidation or pleural effusion. Organs: The liver appears mildly low density and possibly mildly nodular. And biliary tract appears normal. The spleen appears normal. The pancreas appears normal. The adrenal glands appear normal. The kidneys enhance symmetrically with no evidence of nephrolithiasis or hydronephrosis. GI/Bowel: There is no evidence of obstruction. The appendix is normal. Pelvis: The pelvic organs appear normal. Peritoneum/Retroperitoneum: There is no intraperitoneal free air or ascites. Atherosclerosis of the aorta and major branches without aneurysm is noted. The infrarenal aorta demonstrates ulcerated soft plaque. No lymphadenopathy is identified. Bones/Soft Tissues: Age-indeterminate compression deformity of the L1 vertebral body with approximately 50% height loss anteriorly. Degenerative changes are noted in the spine and sacroiliac joints.. No focal soft tissue abnormality is identified. IMPRESSION: 1. No acute intra-abdominal or pelvic abnormality. 2. Age-indeterminate compression deformity of the L1 vertebral body with approximately 50% height loss anteriorly. 3. The liver appears mildly low density and possibly mildly nodular. Steatosis and/or early cirrhosis not excluded. 4. Atherosclerotic disease including ulcerated soft plaque in the infrarenal aorta. Interpreted by: Levon Pascual Preliminary Report By: Levon Pascual Electronically signed By Levon Pascual Dictated Date: 06/18/2024 6:03:53 PM Prelim Date: 06/18/2024 6:15:42 PM Sign Date: 06/18/2024 6:15:42 PM Ordering Provider: JEANNIE HERNANDEZ [facility]10-30-2024 Note ORIGINAL EXAMINATION: TWO XRAY VIEWS OF THE CHEST12/19/2023 5:04 pm CHEST AP/PA and LATERAL EXAM DESCRIPTION: COMPARISON: CTA chest, March 03, 2021 HISTORY: ORDERING SYSTEM PROVIDED HISTORY: Reason for Exam: Cough, chills FINDINGS: PA and lateral radiographs of the chest were obtained. The lungs are clear without evidence of focal consolidation, mass, pleural effusion, or pneumothorax. The cardiomediastinal silhouette is unremarkable. The bones and soft tissues are unremarkable. IMPRESSION: No acute cardiopulmonary disease. Interpreted by: Mumtaz Wise MD Preliminary Report By: Mumtaz Wise MD Electronically signed By Mumtaz Wise MD Dictated Date: 12/19/2023 5:22:00 PM Prelim Date: 12/19/2023 5:22:25 PM Sign Date: 12/19/2023 5:22:25 PM Ordering Provider: LAURA [facility]10-17-2024 NoteDischarge Instructions Discharge Summary [address] [place] [address] [id number] 11/30/2023 Patient: DONTAE PARRA Sex: Male : 1975 Age: 48y Thank you for visiting [facility]. You have been evaluated today by Mumtaz Holley D.O. for the following condition(s): Principal Diagnosis Acute traumatic thoracic back pain. Fall from tree. Patient Signature Facility Program Rep Date/Time General Instructions with ExitWriter [facility] [address] [place] [address] [id number] 11/30/2023 Patient: DONTAE PARRA Sex: Male : 1975 Age: 48y Thank you for visiting [facility]. You have been evaluated today by Mumtaz Holley D.O. for the following condition(s): 1 of 2 Discharge Instructions Principal Diagnosis Acute traumatic thoracic back pain. Fall from tree. [address]10-12-2024 Nurse Note* Maurilio Johnston RN - 12/01/2023 2:34 PM EDT Pt discharging at this time. All belongings collected. Discharge packet reviewed with all questionsanswered. [id number]* Maurilio Johnston RN - 12/01/2023 2:34 PM EDT Pt discharging at this time. All belongings collected. Discharge packet reviewed with all questionsanswered. documented in this [facility]10-12-2024 Note Attestation with edits by Julio Cesar Alaniz MD at 01/10/2024 2:55 PM Patient seen & examined on day of discharge. >30 minutes was spent coordinating this discharge. Please refer to note dated on the day of discharge (12/01/2023) for associated attestation, exam, and plan. My personal highlights or additions below noted in Green. Internal Medicine: Med Team Discharge Summary Dontae Parra : 1975 ADMIT DATE: 12/01/2023 DISCHARGE DATE: 12/01/23 PCP: Dylan Magallon Visit Status: Observation Code Status: FULL CODE Primary Discharge Diagnosis: 15 foot fall with suspected concussion Secondary Discharge Diagnoses: RUBIA - resolved COPD Emphysema CAD s/p PCI w/ RICHY to mid and proximal RCA (2015) HTN HLD Reason for Admission & Hospital Course: Dontae Parra is a 48 y.o. male that presented to [facility] on 12/01/2023 and was admitted for pain control after a fall Patient reportedly fell ~ 15 feet while putting up a tree stand. Fall was mechanical in nature with no concern for syncopal event. Unclear if patient lost consciousness on impact, states he was just very out of it afterwards. Was noted at [facility] to have possible aortic aneurysm vs trauma so was transferred to [facility] for further management. EKG, CT head, and C spine were unremarkable. CTA chest performed at [facility] did not show any evidence of aortic injury or aneurysm. Patient was started on pain regimen and was well controlled. Shared decision making was utilized between our team, patient, and , as patient was requesting to leave today. Prescriptions for short term oxycodone and flexeril sent to pharmacy, -and plans were to monitor by family closely for any recurring symptoms and close follow up with outpatient providers. Disposition: Home Activity: No restriction. Diet: No diet orders on file Discharge Medications: Medication List START taking these medications cyclobenzaprine 5 MG tablet Commonly known as: Flexeril Take 1 tablet (5 mg) by mouth 3 times daily as needed for muscle spasms for up to 10 days. oxyCODONE 5 MG immediate release tablet Commonly known as: Roxicodone Take 1 tablet (5 mg) by mouth every 6 hours as needed for severe pain (7-10) for up to 5 days. CONTINUE taking these medications albuterol 108 (90 Base) MCG/ACT inhaler benralizumab 30 MG/ML injection Commonly known as: Fasenra BUDESONIDE-FORMOTEROL FUMARATE IN buPROPion SR 150 MG 12 hr tablet Commonly known as: Wellbutrin SR carvedilol CR 20 MG 24 hr capsule Commonly known as: Coreg CR clopidogrel 75 MG tablet Commonly known as: Plavix hydroCHLOROthiazide 25 MG tablet Commonly known as: HYDRODiuril Magnesium 250 MG capsule montelukast 10 MG tablet Commonly known as: Singulair nitroglycerin 0.4 MG SL tablet Commonly known as: Nitrostat omeprazole [address] capsule Commonly known as: PriLOSEC potassium chloride CR 20 MEQ ER tablet Commonly known as: Klor-Con M20 prazosin 1 MG capsule Commonly known as: Minipress ranolazine 500 MG 12 hr tablet Commonly known as: Ranexa rosuvastatin 10 MG tablet Commonly known as: Crestor traZODone 50 MG tablet Commonly known as: Desyrel Where to Get Your Medications These medications were sent to [facility]/pharmacy [id number] [place] [address] AT ACROSS FROM [place] [address] Hours: 24-hours cyclobenzaprine 5 MG tablet oxyCODONE 5 MG immediate release tablet Notable Medication Changes & Reasoning: N/a Consultants PT/OT Procedures Performed N/a Significant Laboratory/Radiographic Data: Creatinine 1.4 on admission, improved to 1.1 by next AM with baseline ~ 1 Pending Results at Time of Discharge N/a Follow Up Appointment(s): Follow up with PCP within 1 week Items to Address at Followup Visit: Symptom resolution Abrasion healing [facility]10-12-2024 Emergency department Note* Jaz Ayoub RN - 12/01/2023 9:52 AM EDT Patient ambulatory to bathroom with steady gait Jaz Ayoub RN 12/01/23 0952 [id number] Emergency department Note* Jza Ayoub RN - 12/01/2023 9:52 AM EDT Patient ambulatory to bathroom with steady gait Jaz Ayoub RN 12/01/23 0952 * Jaz Ayoub RN - 12/01/2023 8:34 AM EDT Provider at bedside for eval Jaz Ayoub RN 12/01/23 0834 * Jaz Ayoub RN - 12/01/2023 8:04 AM EDT Patient sat up eating breakfast at this time, provided with extra juice per request, family at bedside, denies current needs at this time, call bernal within reach, care is ongoing Jaz Ayoub RN 12/01/23 0805 * Jaz Ayoub RN - 12/01/2023 7:[address] Jones at bedside Jaz Ayoub RN 12/01/23 0742 * Missy Jones DO - 12/01/2023 2:48 AM EDT EMERGENCY DEPARTMENT ENCOUNTER Pt Name: Dontae Parra Birthdate 1975 Date of evaluation: 12/01/2023 ED Provider: Missy Jones DO CHIEF COMPLAINT Chief Complaint Patient presents with Abdominal Injury Transfer from [place] for trauma consult. Fall from tree stand 15-17 feet. 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 I wore appropriate PPE for the entirety of this encounter. HPI Dontae Parra is a 48 y.o. who presents to the emergency department as a transfer from outside emergency department with concern for fall and aortic arch abnormality on imaging. Patient fell from a tree stand which was approximately 15 to 17 feet from the ground in the evening of 11/29. He confirms back pain. Nursing Notes were reviewed. Limitations to history: None Outside historians: None REVIEW OF SYSTEMS Review of Systems Pertinent positives and negatives as per HPI. PAST MEDICAL HISTORY Past Medical History: Diagnosis Date Acid reflux Asthma CAD (coronary artery disease) COPD (chronic obstructive pulmonary disease) ([facility]) Emphysema of lung ([facility]) 2010 Erectile dysfunction GERD (gastroesophageal reflux disease) History of echocardiogram 10/20/2015 EF 50%, trivial MR History of percutaneous coronary intervention 02/11/2016 RICHY - prox RCA, RICHY - mid RCA, patent ramus stent, EF 50-55% Hyperlipidemia Hypertension Hypotestosteronism Presence of stent in coronary artery Restless leg STEMI (ST elevation myocardial infarction) ([facility]) 09/2015 posterior wall Tobacco use disorder SURGICAL HISTORY Past Surgical History: Procedure Laterality Date CARDIAC CATHETERIZATION Left 08/03/2016 CORONARY ANGIOPLASTY 10/19/2015 RICHY to proximal ramus CORONARY ANGIOPLASTY 02/11/2016 RICHY to prox & mid RCA HAND SURGERY HERNIA REPAIR KNEE SURGERY CURRENT MEDICATIONS Previous Medications ALBUTEROL 108 (90 BASE) MCG/ACT INHALER Inhale 2 puffs every 6 hours as needed. BENRALIZUMAB (FASENRA) 30 MG/ML INJECTION Inject 30 mg under the skin every 8 (eight) weeks. BUDESONIDE-FORMOTEROL FUMARATE IN Take 2 puffs by mouth in the morning and 2 puffs in the evening. BUPROPION SR (WELLBUTRIN SR) 150 MG 12 HR TABLET Take 150 mg by mouth 2 times daily. Do not crush, chew, or split. CARVEDILOL CR (COREG CR) 20 MG 24 HR CAPSULE Take 20 mg by mouth daily. Do not crush or chew. CLOPIDOGREL (PLAVIX) 75 MG TABLET Take 75 mg by mouth daily. HYDROCHLOROTHIAZIDE (HYDRODIURIL) 25 MG TABLET Take 25 mg by mouth daily. MAGNESIUM 250 MG CAPSULE Take 250 mg by mouth daily. MONTELUKAST (SINGULAIR) 10 MG TABLET Take 10 mg by mouth Nightly. NITROGLYCERIN (NITROSTAT) 0.[address] 0.4 mg under the tongue every 5 minutes as needed for chest pain. OMEPRAZOLE (PRILOSEC) [address] CAPSULE Take 40 mg by mouth every morning (before breakfast). Do notcrush or chew. POTASSIUM CHLORIDE CR (KLOR-CON M20) 20 MEQ ER TABLET Take 20 mEq by mouth daily. Do not crush or chew. PRAZOSIN (MINIPRESS) 1 MG CAPSULE Take 1 mg by mouth Nightly. RANOLAZINE (RANEXA) 500 MG 12 HR TABLET Take 500 mg by mouth 2 times daily. Do not crush, chew, or split. ROSUVASTATIN (CRESTOR) 10 MG TABLET Take 10 mg by mouth daily. TRAZODONE (DESYREL) 50 MG TABLET Take 50 mg by mouth Nightly. ALLERGIES Amlodipine, Atorvastatin, and Isosorbide FAMILY HISTORY Family History Problem Relation Name Age of Onset No Known Problems Mother Cancer Father Heart attack Maternal Grandmother SOCIAL HISTORY Social History Socioeconomic History Marital status: Tobacco Use Smoking status: Every Day Current packs/day: 0.00 Types: Cigarettes Last attempt to quit: 10/19/2015 Years since quittin.1 Smokeless tobacco: Never Tobacco comments: Quit smoking: He continues to smoke 1ppd. He plans to start Chantix soon Substance and Sexual Activity Alcohol use: No Drug use: No SCREENINGS PHYSICAL EXAM ED Triage Vitals [12/01/23 0257] Temp Heart Rate Resp BP 36.6 C (97.9 F) 83 18 108/66 SpO2 Temp Source Heart Rate Source Patient Position 94 % Oral -- -- BP Location FiO2 (%) -- -- Physical Exam PRIMARY SURVEY: Vital signs: reviewed, as documented Airway: patent, patient talking, no hoarse or muffled voice Pulmonary: spontaneous respiration, bilateral breath sounds Cardiovascular: Regular rate, peripheral pulses intact Disability: GCS 15 gross motor intact upper and lower extremities gross sensory intact upper and lower extremities SECONDARY SURVEY: General: Awake and alert, oriented x3 Head: normocephalic, small superficial abrasion, no cephalohematoma or lacerations, no facial deformity Eyes: PERRL, pupils 3 mm b/l, EOMI, no signs of trauma Ears: Grossly normal Nose: no blood in nares bilaterally, no fluid drainage, no septal hematoma Face: midface stable and nontender Mouth: oropharynx clear, no fractured teeth Neck: cervical collar in place, trachea midline with no masses, no midline tenderness Chest: nontender, no crepitance, lungs CTA bilaterally Abdomen: soft, non-tender, non-distended Pelvis: stable to compression and nontender Musculoskeletal: Right Arm: no obvious deformity, strength and sensation grossly intact, distal pulses intact Left Arm: no obvious deformity, strength and sensation grossly intact, distal pulses intact Right Leg: no obvious deformity, strength and sensation grossly intact, distal pulses intact Left Leg: no obvious deformity, strength and sensation grossly intact, distal pulses intact Back: Midline T-spine tenderness without bony step-offs or deformities, no midline tenderness, no step-offs Integumentary: warm, dry DIAGNOSTIC RESULTS RADIOLOGY (Per Emergency Physician): Interpretation per the Radiologist below, if available at the time of this note: XR ankle 3+ views left Final Result XR shoulder 2+ views right Final Result 1. Negative examination of the right shoulder. Report Dictated on Electronically Signed By: Yony Rogers MD Electronically Signed Date/Time: 12/01/2023 6:08 AM EDT CTA chest abdomen pelvis angiogram w and/or wo contrast Final Result 1. Marked thick plaque deposition abdominal aorta without aneurysm. 2. Unremarkable aortic arch except for atherosclerosis with bovine type branching pattern with no definite traumatic injury pattern (no mediastinal hematoma seen). Moderate bibasilar areas of infiltrate/atelectasis with underlying marked centrilobular emphysema. Report Dictated on Electronically Signed By: Yony Rogers MD Electronically Signed Date/Time: 12/01/2023 5:02 AM EDT LABS: Labs Reviewed - No data to display All other labs were within normal range or not returned as of this dictation. EMERGENCY DEPARTMENT COURSE and DIFFERENTIAL DIAGNOSIS/MDM: Vitals: Vitals: 12/01/23 0257 12/01/23 0547 12/01/23 0649 BP: 108/66 120/68 111/67 Pulse: 83 85 78 Resp: 18 18 21 Temp: 36.6 C (97.9 F) TempSrc: Oral SpO2: 94% 95% 94% Weight: 97.5 kg (215 lb) Height: 1.829 m (6') The patient presented with a chief complaint of fall. Vitals reviewed. The differential diagnosis associated with this patient's presentation includes acute fracture or dislocation, aortic abnormality. Our workup consisted of ordering/reviewing imaging obtained at outside hospital as well as CTA chest abdomen pelvis obtained here. CTA here shows plaque deposition of abdominal aorta and unremarkable aortic arch. Trauma surgery saw and evaluated the patient at bedside and consulted orthopedic surgery with concern for T-spine tenderness on exam. Orthopedic surgery recommending no acute surgical intervention or further imaging. Given Tylenol, lidocaine patch, and Robaxin in the emergency department. He was given IV narcotics at outside hospital prior to transfer as well. Of note, patient states he sees pulmonology and his oxygen saturation runs in the 70s to 80s at baseline and he was supposed to start supplemental oxygen but does not have access at home currently. He is on 4 L nasal cannula here satting 94%. To be admitted for further evaluation and management. Patient understands and is in agreement with this plan. ED Course as of 12/01/23728 Sat Dec 01, 2023 0711 [place] to see. Medical admission for pain control and chronic hypoxic respiratory failure. [RP] ED Course User Index [RP] Beatriz Wilson MD Diagnoses as of 12/01/23728 Fall, initial encounter External records reviewed: Outside hospital notes and imaging Diagnostics interpreted by me: none Discussions with other clinicians: [facility] trauma surgery Chronic conditions impacting care: none Social determinants of health affecting care: none ED Medications managed: Medications Lidocaine 4 % patch 1 patch (has no administration in time range) iopamidol (Isovue-370) 76 % injection 100 mL (100 mL IntraVENous Given 12/01/23 0435) acetaminophen (Tylenol) tablet 1,000 mg (1,000 mg Oral Given 12/01/23656) methocarbamol (Robaxin) injection 1,000 mg (1,000 mg IntraVENous Given 12/01/23656) Prescription drugs considered: None PROCEDURES: Unless otherwise noted below, none Procedures FINAL IMPRESSION 1. Fall, initial encounter DISPOSITION Admit PATIENT REFERRED TO: [facility] - [address] [facility] [address] Schedule an appointment as soon as possible for a visit As needed Dylan Farooqore [address] [place] [address] Schedule an appointment as soon as possible for a visit Timi Valderrama MD [address] [facility] [place] [address] [facility] [address] Follow up in 2 week(s) Hospital Follow Up DISCHARGE MEDICATIONS: New Prescriptions No medications on file (Comment: Please note this report has been produced using speech recognition software and may contain errors related to that system including errors in grammar, punctuation, and spelling, as well as words and phrases that may be inappropriate. If there are any questions or concerns please feel freeto contact the dictating provider for clarification.) Missy Jones DO (electronically signed) Emergency Medicine Provider Missy Jones DO Resident 12/01/23 0731 * Cabrera Thomas DO - 12/01/2023 2:48 AM EDT Emergency Department Encounter [facility] Patient: Dontae Parra : 1975 Date of Evaluation: 12/01/2023 ED Supervising Physician: Cabrera Thomas DO I personally evaluated Dontae Parra and made/approved the management plan and take responsibility for the patient management. This will serve as my Supervisory note and shared attestation. I did perform a substantive portion of the visit including all aspects of the Medical Decision Making. I wore appropriate PPE for the entirety of this encounter. In brief, Dontae Parra is a 48 y.o. that presents to the emergency department with complaints of back pain. Patient was transferred here from outside hospital. Patient fell 15 to 17 feet, landed on his back, positive head strike, negative loss of consciousness. Patient was worked up at outside facility showed no acute traumatic injury on CT imaging however cortical irregularity to the aortic arch.Patient was transferred here for further evaluation. Additionally patient continues to have back pain. Denies any loss of bladder or bowel control, saddle anesthesia, vision changes, chest pain, shortness of breath, dysuria, hematuria. Focused exam: On exam, vitals stable. Gen: Nontoxic appearing. Head: NC, abrasion to the posterior right scalp with hemostasis CV: RRR. Resp: CTA bilaterally. Abd: Abd soft and notender. Back: Generalized tenderness to palpation Ext: No obvious deformity or abnormalities of bilat UE and LE, Pulses 2+ bilateral UE and LE. Neuro: No focal neurologic deficit. Skin: No obvious rashes, warm, dry Brief ED course/MDM: Patient with presents to the ED with a chief complaint of back pain. Additional information found above and also refer to susie/resident note for further details. On exam, vitals stable. Per above. Otherwise per above Additional information found above and also refer to susie/resident note for further details. (Differential diagnosis) With consideration of age, sex/gender, risk factors, to evaluate patient for high risk causes of morbidity and mortality such as, but not limited to, fracture vs strain vs contusion vs other Today we will obtain repeat CT angio for further evaluation of aortic arch Diagnostic tests considered but not performed: n/a Independently reviewed external documents including previous family medicine notes. Per chart review, patient has been followed for or diagnosed with COPD, HLD in the past. Will consider these factors in evaluation and management for today's care. Discussed plan with patient who agrees with current plan. Diagnostics interpreted by me: Per below I personally discussed the patient's management with other clinicians: Trauma consult, orthopedic consult End of visit medical decision making Patient was reassessed. Resting comfortably. No acute distress. Independently reviewed and interpreted the lab results which demonstrated the following: No significant leukocytosis, no significant anemia, all electrolytes within normal limits Independently reviewed the reports of other imaging which demonstrated the following: Marked thick plaque deposition abdominal aorta without aneurysm. 2. Unremarkable aortic arch except for atherosclerosis with bovine type branching pattern with no definite traumatic injury pattern (no mediastinal hematoma seen). Moderate bibasilar areas of infiltrate/atelectasis with underlying marked centrilobular emphysema. Response to medical management provided in the ED: improving (Consults) Discussed care with: trauma, orthoedpics Discussed all results with patient and/or family members. They verbalize understanding. Offered admission for further management. Discussed risks, benefits and alternatives for further management in the hospital. Due to high risk of morbidity and mortality of the stated findings and results, patient will be admitted for further management and care. Patient is agreeable to the plan. Discussed patient, presentation and workup with admitting team. Admitting team is agreeable to current workup and evaluation. They will admit the patient and provide further care. Pending results to be followed by primary admitting team. Patient will need med level of care and not appropriate for lower acuity location of care due to risk of morbidity and mortality Patient's condition and/or care was impacted by recent fall, copd Patient's condition and/or care was significantly impacted by social determinants of health including: n/a All diagnostic, treatment, and disposition decisions were made by myself in conjunction with the Resident. I also supervised potter portions of any procedures performed by the Resident. For all further details of the patient's emergency department visit, please see their documentation. (Comment: Please note this report has been produced using speech recognition software and may contain errors related to that system including errors in grammar, punctuation, and spelling, as well as words and phrases that may be inappropriate. If there are any questions or concerns please feel freeto contact the dictating provider for clarification.) Cabrera Thomas DO Acute Care [facility] Cabrera Thomas DO 12/01/23 6360 documented in this [facility]10-12-2024 Emergency department Note* Jaz Ayoub RN - 12/01/2023 8:34 AM EDT Provider at bedside for eval Jaz Ayoub RN 12/01/23 0834 [id number] Emergency department Note* Jaz Ayoub RN - 12/01/2023 8:04 AM EDT Patient sat up eating breakfast at this time, provided with extra juice per request, family at bedside, denies current needs at this time, call bernal within reach, care is ongoing Jaz Ayoub RN 12/01/23 0805 [id number] Emergency department Note* Jaz Ayoub RN - 12/01/2023 7:[address] Jones at bedside Jaz Ayoub RN 12/01/23 0742 [id number] History and physical note* Tonya Perkins, - 12/01/2023 7:20 AM EDT Internal Medicine: Med Team Initial History and Physical Dontae Parra : 1975(48 y.o.) Date: December 01, 2023 TEAM: Julio César Attending: Dr. Alaniz Subjective: Chief Complaint: fall from tree stand HPI Dontae Parra is a 48 y.o. male with PMH CAD with hx of STEMI with PCI with RICHY in proximal RCA and mid RCA (2015), HTN, COPD/emphysema, HLD that presented to [facility] on 12/01/2023 from outside facility ([facility]) Patient reportedly fell from tree stand to the ground, about 15-17 feet. Unclear how fall happened,but came to consciousness on the ground and had landed on his back and hit the R side of his head. Son and found him and felt he seemed concussed on scene. CT with no acute intracranial process.Underwent CT chest at [place] which showed possible aortic aneurysm vs trauma and was transferred to [facility] for further workup In ED, CTA performed which does not show any aortic arch aneurysm. Labs at [place] include CBC andCMP, both of which are grossly unremarkable besides a creatinine of 1.4 (most recent in our system is 0.93 in 02/2021). Patient with no new motor deficits, does have prior sensory and motor deficits to bilateral ring and pinky fingers due to a prior accident. Cleared by ortho and trauma, ED requesting medical admit for pain control. Patient saturating mid 90s on 2L, per has been trying to getO2 set up at home but has been unsuccessful On eval, patient has just received dose of robaxin and is very sleepy after this. Majority of history gathered from . Per , he was setting up tree stand and fell off of ladder, fall sounds mechanical in nature. Unclear if there was true loss of consciousness, states he was just very out of it afterwards. Discussed that this admission will likely be guided by how he is feeling. Patient would like to be full code at this time. Agree with resident/student history, independently interviewed, in addition: I saw Mr. Parra in the ER after Dr. Perkins. At this time, both and son at bedside. Mr. Parra is slightly sleepy (received IV muscle relaxer) but is able to answer questions. also provides collateral history. and son and talked and the mechanism of the fall was mechanical, in that he had reach to place something on the tree spot to place a harness and lost his balance. Denies cardiopulmonary symptoms, does not feel short of breath, and does not have any neurological deficits. I did speak and examine Mr. Parra later in the afternoon, please see separate documentation in the attestation. Review of Systems Respiratory: Negative for shortness of breath. Cardiovascular: Negative for chest pain. Gastrointestinal: Negative for abdominal distention and abdominal pain. Skin: Positive for wound (abrasion on back of R side of head). Agree with resident/student ROS, independently interviewed. Past Medical History: Diagnosis Date Acid reflux Asthma CAD (coronary artery disease) COPD (chronic obstructive pulmonary disease) ([facility]) Emphysema of lung ([facility]) 2010 Erectile dysfunction GERD (gastroesophageal reflux disease) History of echocardiogram 10/20/2015 EF 50%, trivial MR History of percutaneous coronary intervention 02/11/2016 RICHY - prox RCA, RICHY - mid RCA, patent ramus stent, EF 50-55% Hyperlipidemia Hypertension Hypotestosteronism Presence of stent in coronary artery Restless leg STEMI (ST elevation myocardial infarction) ([facility]) 09/2015 posterior wall Tobacco use disorder Past Surgical History: Procedure Laterality Date CARDIAC CATHETERIZATION Left 08/03/2016 CORONARY ANGIOPLASTY 10/19/2015 RICHY to proximal ramus CORONARY ANGIOPLASTY 02/11/2016 RICHY to prox & mid RCA HAND SURGERY HERNIA REPAIR KNEE SURGERY Family History Problem Relation Name Age of Onset No Known Problems Mother Cancer Father Heart attack Maternal Grandmother Social History Tobacco Use Smoking Status Every Day Current packs/day: 0.00 Types: Cigarettes Last attempt to quit: 10/19/2015 Years since quittin.1 Smokeless Tobacco Never Tobacco Comments Quit smoking: He continues to smoke 1ppd. He plans to start Chantix soon Social History Substance and Sexual Activity Alcohol Use No Social History Substance and Sexual Activity Drug Use No Allergies Allergen Reactions Amlodipine Other Reaction(s): Severe headache Atorvastatin Other Myalgias and diarrhea Isosorbide Other Severe headache Prior to Admission medications Medication Sig Start Date End Date Taking? Authorizing Provider BUDESONIDE-FORMOTEROL FUMARATE IN Take 2 puffs by mouth in the morning and 2 puffs in the evening. 01/22/23 Yes Historical Provider, montelukast (Singulair) 10 MG tablet Take 10 mg by mouth Nightly. 01/08/23 Yes Historical Provider, albuterol 108 (90 Base) MCG/ACT inhaler Inhale 2 puffs every 6 hours as needed. Historical Provider, benralizumab (Fasenra) 30 MG/ML injection Inject 30 mg under the skin every 8 (eight) weeks. Historical Provider, buPROPion SR (Wellbutrin SR) 150 MG 12 hr tablet Take 150 mg by mouth 2 times daily. Do not crush, chew, or split. Historical Provider, carvedilol CR (Coreg CR) 20 MG 24 hr capsule Take 20 mg by mouth daily. Do not crush or chew. Historical Provider, clopidogrel (Plavix) 75 MG tablet Take 75 mg by mouth daily. Historical Provider, hydroCHLOROthiazide (HYDRODiuril) 25 MG tablet Take 25 mg by mouth daily. Historical Provider, Magnesium 250 MG capsule Take 250 mg by mouth daily. Historical Provider, nitroglycerin (Nitrostat) 0.[address] 0.4 mg under the tongue every 5 minutes as needed for chest pain. Historical Provider, omeprazole (PriLOSEC) [address] capsule Take 40 mg by mouth every morning (before breakfast). Do notcrush or chew. Historical Provider, potassium chloride CR (Klor-Con M20) 20 MEQ ER tablet Take 20 mEq by mouth daily. Do not crush or chew. Historical Provider, prazosin (Minipress) 1 MG capsule Take 1 mg by mouth Nightly. Historical Provider, ranolazine (Ranexa) 500 MG 12 hr tablet Take 500 mg by mouth 2 times daily. Do not crush, chew, or split. Historical Provider, rosuvastatin (Crestor) 10 MG tablet Take 10 mg by mouth daily. Historical Provider, traZODone (Desyrel) 50 MG tablet Take 50 mg by mouth Nightly. Historical Provider, Objective: Vitals: 12/01/23 0257 12/01/23 0547 12/01/23 0649 BP: 108/66 120/68 111/67 Pulse: 83 85 78 Resp: 18 18 21 Temp: 36.6 C (97.9 F) TempSrc: Oral SpO2: 94% 95% 94% Weight: 215 lb (97.5 kg) Height: 6' (1.829 m) Physical Exam Constitutional: General: He is sleeping. HENT: Head: Abrasion (posterior R side) present. Eyes: Pupils: Pupils are equal, round, and reactive to light. Cardiovascular: Rate and Rhythm: Normal rate and regular rhythm. Pulses: Normal pulses. Heart sounds: Normal heart sounds. Pulmonary: Effort: Pulmonary effort is normal. Breath sounds: Normal breath sounds. Abdominal: General: Bowel sounds are normal. Palpations: Abdomen is soft. Tenderness: There is no abdominal tenderness. Musculoskeletal: General: No signs of injury. Skin: General: Skin is warm and dry. Neurological: Mental Status: He is easily aroused. Agree with resident/student physical, independently examined, in addition: Nonfocal neuro exam, normal cardiopulmonary exam with no acute respiratory distress. [facility] within last 24 hours No results found for: WBC, HGB, HCT, PLT, MCV No results found for: NA, K, CL, CO2, BUN, CREATININE, GLUCOSE, CALCIUM, MG, PHOS No results found for: AST, ALT, PROT, BILITOT, ALKPHOS, INR, APTT, LIPASE No results found for: CKTOTAL, CKMB, TROPONINI No results found for: PROCAL, CHOL, TRIG, HDL, TSH, VITD25, HGBA1C, VANCOTROUGH Assessment and Plan: Active Problems: Concussion Back pain Fall Fall from 15 feet ? Concussion - CT head + C spine at [place] clear - CTA at [facility] with no evidence of aortic aneurysm that was seen on CT chest at [place] [facility] - Continue to monitor mental status, avoid sedating drugs as much as possible - 1000mg Tylenol q6h scheduled for pain control - 2.5mg/5mg oxycodone q4h PRN - Can add muscle relaxer if still having significant pain as patient got a lot of relief from this in the ED, but would like to avoid this if possible as patient was also very sedated after receivingRobaxin - PT/OT to see, discharge likely pending their recs ? RUBIA vs CKD - creatinine 1.4 at [place], unknown baseline - Last creatinine in our system is 0.9 from 02/2021 - Will recheck CMP this AM and see if it has improved COPD/emphysema - Continue home albuterol PRN, singulair 10mg nightly - Will replace Breztri with spiriva/dulera as we do not have Breztri on formulary - CTA showing severe emphysema - May need home O2 eval prior to discharge CAD s/p PCI w/ RICHY to mid + proximal RCA (2015) - Continue daily aspirin/plavix - Continue ranolaxine 500mg BID HTN - BP well controlled so far on admission - Coreg 12.5mg BID substituted for 20mg ER daily - Continue home hydrochlorothiazide 25mg daily - Continue prazosin 1mg nightly HLD - Continue Crestor 10mg daily - Goals of Care: FULL CODE - DVT Prophylaxis: Lovenox 40 q24hr - CrCl >30 - GI Prophylaxis: Not Indicated - Diet: General - BMI Classification: Body mass index is 29.16 kg/m . Overweight (BMI 25-29.9) - Disposition: Admit to F. - Given the signs and symptoms associated with his primary diagnosis in the setting of his comorbidconditions, he is expected to require >48 hrs of hospital care (i.e. inpatient level care). Associated attestation - Julio Cesar Alaniz MD - 12/01/2023 1:58 PM EDT Attending Physician Statement I have discussed the care of Dontae Parra, including pertinent history and exam findings, with the resident/student. I have seen and examined the patient and the potter elements of all parts of the encounter have been performed by me. I agree with the resident/student note with my corrections and additions (in blue). (GC Modifier) I had a discussion with Mr. Parra and family on the afternoon of November 30, on the floor after he had been admitted. At this time Mr. Parra was much more awake and was asking to be discharged, adamantly. Bedside RN was also present. We discussed Mr. Parra's fall, both sons are present and and all agreed that this was a mechanical fall due to tripping and he has had no cardiopulmonary symptoms or neurological deficits. We discussed negative workup at outside hospital as well as here,. We alsodiscussed lab work which initially showed an RUBIA but on repeat check was normalized. I did a neurological and cardiopulmonary exam at bedside which did not show any new findings. He has also been ambu lating and O2 sats have much improved and he is no longer requiring oxygen. I talked to Mr. Parra and explained that although he is medically stable, his fall was a significantone and it would be recommended to watch him overnight to ensure he does not develop any new neurological issues from likely concussion or any other uncontrolled medical problems. Both Mr. Parra and family feel that it would be best for him to go home, as he is ambulating fine and does not have any issues. They are asking for some medications to help with pain and muscle aches which we will be able to provide. I discussed shared decision making that if Mr. Parra were to develop any changes to hismental status, severe headache, neurological deficits, cardiopulmonary symptoms, or vision changes,this would be a reason to call 911 and bring him back to the hospital right away. They are understanding of this and are planning to watch him very closely for at least the next 24 hours if not longer. I discussed concussion safety including following up with his primary care doctor and avoiding any possible repeat injuries and watching out for severe headache. They are understanding of this planand elect for discharge today. Mr. Parra reports he has had a tetanus shot in the last 5 years, so declines repeat immunization. Medications were sent to nearby open pharmacy. [facility] [id number] Note Attestation with edits by Julio Cesar Alaniz MD at 12/01/2023 1:58 PM Attending Physician Statement I have discussed the care of Dontae Parra, including pertinent history and exam findings, with the resident/student. I have seen and examined the patient and the potter elements of all parts of the encounter have been performed by me. I agree with the resident/student note with my corrections and additions (in blue). (GC Modifier) I had a discussion with Mr. Parra and family on the afternoon of November 30, on the floor after he had been admitted. At this time Mr. Parra was much more awake and was asking to be discharged, adamantly. Bedside RN was also present. We discussed Mr. Parra's fall, both sons are present and and all agreed that this was a mechanical fall due to tripping and he has had no cardiopulmonary symptoms or neurological deficits. We discussed negative workup at outside hospital as well as here,. We also discussed lab work which initially showed an RUBIA but on repeat check was normalized. I did a neurological and cardiopulmonary exam at bedside which did not show any new findings. He has also been ambulating and O2 sats have much improved and he is no longer requiring oxygen. I talked to Mr. Parra and explained that although he is medically stable, his fall was a significant one and it would be recommended to watch him overnight to ensure he does not develop any new neurological issues from likely concussion or any other uncontrolled medical problems. Both Mr. Parra and family feel that it would be best for him to go home, as he is ambulating fine and does not have any issues. They are asking for some medications to help with pain and muscle aches which we will be able to provide. I discussed shared decision making that if Mr. Parra were to develop any changes to his mental status, severe headache, neurological deficits, cardiopulmonary symptoms, or vision changes, this would be a reason to call 911 and bring him back to the hospital right away. They are understanding of this and are planning to watch him very closely for at least the next 24 hours if not longer. I discussed concussion safety including following up with his primary care doctor and avoiding any possible repeat injuries and watching out for severe headache. They are understanding of this plan and elect for discharge today. Mr. Parra reports he has had a tetanus shot in the last 5 years, so declines repeat immunization. Medications were sent to nearby open pharmacy. Internal Medicine: Med Team Initial History and Physical Dontae Parra : 1975(48 y.o.) Date: December 01, 2023 TEAM: Julio César Attending: Dr. Alaniz Subjective: Chief Complaint: fall from tree stand HPI Dontae Parra is a 48 y.o. male with PMH CAD with hx of STEMI with PCI with RICHY in proximal RCA and mid RCA (2015), HTN, COPD/emphysema, HLD that presented to [facility] on 12/01/2023 from outside facility ([facility]) Patient reportedly fell from tree stand to the ground, about 15-17 feet. Unclear how fall happened, but came to consciousness on the ground and had landed on his back and hit the R side of his head. Son and found him and felt he seemed concussed on scene. CT with no acute intracranial process. Underwent CT chest at [place] which showed possible aortic aneurysm vs trauma and was transferred to [facility] for further workup In ED, CTA performed which does not show any aortic arch aneurysm. Labs at [place] include CBC and CMP, both of which are grossly unremarkable besides a creatinine of 1.4 (most recent in our system is 0.93 in 02/2021). Patient with no new motor deficits, does have prior sensory and motor deficits to bilateral ring and pinky fingers due to a prior accident. Cleared by ortho and trauma, ED requesting medical admit for pain control. Patient saturating mid 90s on 2L, per has been trying to get O2 set up at home but has been unsuccessful On eval, patient has just received dose of robaxin and is very sleepy after this. Majority of history gathered from . Per , he was setting up tree stand and fell off of ladder, fall sounds mechanical in nature. Unclear if there was true loss of consciousness, states he was just very out of it afterwards. Discussed that this admission will likely be guided by how he is feeling. Patient would like to be full code at this time. Agree with resident/student history, independently interviewed, in addition: I saw Mr. Parra in the ER after Dr. Perkins. At this time, both and son at bedside. Mr. Parra is slightly sleepy (received IV muscle relaxer) but is able to answer questions. also provides collateral history. and son and celestina (more content not included)...[id number] History and physical note* Tonya Perkins, DO - 12/01/2023 7:20 AM EDT Internal Medicine: Med Team Initial History and Physical Dontae Parra : 1975(48 y.o.) Date: December 01, 2023 TEAM: Julio César Attending: Dr. Alaniz Subjective: Chief Complaint: fall from tree stand HPI Dontae Parra is a 48 y.o. male with PMH CAD with hx of STEMI with PCI with RICHY in proximal RCA and mid RCA (2015), HTN, COPD/emphysema, HLD that presented to [facility] on 12/01/2023 from outside facility ([facility]) Patient reportedly fell from tree stand to the ground, about 15-17 feet. Unclear how fall happened,but came to consciousness on the ground and had landed on his back and hit the R side of his head. Son and found him and felt he seemed concussed on scene. CT with no acute intracranial process.Underwent CT chest at [place] which showed possible aortic aneurysm vs trauma and was transferred to [facility] for further workup In ED, CTA performed which does not show any aortic arch aneurysm. Labs at [place] include CBC andCMP, both of which are grossly unremarkable besides a creatinine of 1.4 (most recent in our system is 0.93 in 02/2021). Patient with no new motor deficits, does have prior sensory and motor deficits to bilateral ring and pinky fingers due to a prior accident. Cleared by ortho and trauma, ED requesting medical admit for pain control. Patient saturating mid 90s on 2L, per has been trying to getO2 set up at home but has been unsuccessful On eval, patient has just received dose of robaxin and is very sleepy after this. Majority of history gathered from . Per , he was setting up tree stand and fell off of ladder, fall sounds mechanical in nature. Unclear if there was true loss of consciousness, states he was just very out of it afterwards. Discussed that this admission will likely be guided by how he is feeling. Patient would like to be full code at this time. Agree with resident/student history, independently interviewed, in addition: I saw Mr. Parra in the ER after Dr. Perkins. At this time, both and son at bedside. Mr. Parra is slightly sleepy (received IV muscle relaxer) but is able to answer questions. also provides collateral history. and son and talked and the mechanism of the fall was mechanical, in that he had reach to place something on the tree spot to place a harness and lost his balance. Denies cardiopulmonary symptoms, does not feel short of breath, and does not have any neurological deficits. I did speak and examine Mr. Parra later in the afternoon, please see separate documentation in the attestation. Review of Systems Respiratory: Negative for shortness of breath. Cardiovascular: Negative for chest pain. Gastrointestinal: Negative for abdominal distention and abdominal pain. Skin: Positive for wound (abrasion on back of R side of head). Agree with resident/student ROS, independently interviewed. Past Medical History: Diagnosis Date Acid reflux Asthma CAD (coronary artery disease) COPD (chronic obstructive pulmonary disease) ([facility]) Emphysema of lung ([facility]) 2010 Erectile dysfunction GERD (gastroesophageal reflux disease) History of echocardiogram 10/20/2015 EF 50%, trivial MR History of percutaneous coronary intervention 02/11/2016 RICHY - prox RCA, RICHY - mid RCA, patent ramus stent, EF 50-55% Hyperlipidemia Hypertension Hypotestosteronism Presence of stent in coronary artery Restless leg STEMI (ST elevation myocardial infarction) ([facility]) 09/2015 posterior wall Tobacco use disorder Past Surgical History: Procedure Laterality Date CARDIAC CATHETERIZATION Left 08/03/2016 CORONARY ANGIOPLASTY 10/19/2015 RICHY to proximal ramus CORONARY ANGIOPLASTY 02/11/2016 RICHY to prox & mid RCA HAND SURGERY HERNIA REPAIR KNEE SURGERY Family History Problem Relation Name Age of Onset No Known Problems Mother Cancer Father Heart attack Maternal Grandmother Social History Tobacco Use Smoking Status Every Day Current packs/day: 0.00 Types: Cigarettes Last attempt to quit: 10/19/2015 Years since quittin.1 Smokeless Tobacco Never Tobacco Comments Quit smoking: He continues to smoke 1ppd. He plans to start Chantix soon Social History Substance and Sexual Activity Alcohol Use No Social History Substance and Sexual Activity Drug Use No Allergies Allergen Reactions Amlodipine Other Reaction(s): Severe headache Atorvastatin Other Myalgias and diarrhea Isosorbide Other Severe headache Prior to Admission medications Medication Sig Start Date End Date Taking? Authorizing Provider BUDESONIDE-FORMOTEROL FUMARATE IN Take 2 puffs by mouth in the morning and 2 puffs in the evening. 01/22/23 Yes Historical Provider, montelukast (Singulair) 10 MG tablet Take 10 mg by mouth Nightly. 01/08/23 Yes Historical Provider, albuterol 108 (90 Base) MCG/ACT inhaler Inhale 2 puffs every 6 hours as needed. Historical Provider, benralizumab (Fasenra) 30 MG/ML injection Inject 30 mg under the skin every 8 (eight) weeks. Historical Provider, buPROPion SR (Wellbutrin SR) 150 MG 12 hr tablet Take 150 mg by mouth 2 times daily. Do not crush, chew, or split. Historical Provider, carvedilol CR (Coreg CR) 20 MG 24 hr capsule Take 20 mg by mouth daily. Do not crush or chew. Historical Provider, clopidogrel (Plavix) 75 MG tablet Take 75 mg by mouth daily. Historical Provider, hydroCHLOROthiazide (HYDRODiuril) 25 MG tablet Take 25 mg by mouth daily. Historical Provider, Magnesium 250 MG capsule Take 250 mg by mouth daily. Historical Provider, nitroglycerin (Nitrostat) 0.[address] 0.4 mg under the tongue every 5 minutes as needed for chest pain. Historical Provider, omeprazole (PriLOSEC) [address] capsule Take 40 mg by mouth every morning (before breakfast). Do notcrush or chew. Historical Provider, potassium chloride CR (Klor-Con M20) 20 MEQ ER tablet Take 20 mEq by mouth daily. Do not crush or chew. Historical Provider, prazosin (Minipress) 1 MG capsule Take 1 mg by mouth Nightly. Historical Provider, ranolazine (Ranexa) 500 MG 12 hr tablet Take 500 mg by mouth 2 times daily. Do not crush, chew, or split. Historical Provider, rosuvastatin (Crestor) 10 MG tablet Take 10 mg by mouth daily. Historical Provider, traZODone (Desyrel) 50 MG tablet Take 50 mg by mouth Nightly. Historical Provider, Objective: Vitals: 12/01/23 0257 12/01/23 0547 12/01/23 0649 BP: 108/66 120/68 111/67 Pulse: 83 85 78 Resp: 18 18 21 Temp: 36.6 C (97.9 F) TempSrc: Oral SpO2: 94% 95% 94% Weight: 215 lb (97.5 kg) Height: 6' (1.829 m) Physical Exam Constitutional: General: He is sleeping. HENT: Head: Abrasion (posterior R side) present. Eyes: Pupils: Pupils are equal, round, and reactive to light. Cardiovascular: Rate and Rhythm: Normal rate and regular rhythm. Pulses: Normal pulses. Heart sounds: Normal heart sounds. Pulmonary: Effort: Pulmonary effort is normal. Breath sounds: Normal breath sounds. Abdominal: General: Bowel sounds are normal. Palpations: Abdomen is soft. Tenderness: There is no abdominal tenderness. Musculoskeletal: General: No signs of injury. Skin: General: Skin is warm and dry. Neurological: Mental Status: He is easily aroused. Agree with resident/student physical, independently examined, in addition: Nonfocal neuro exam, normal cardiopulmonary exam with no acute respiratory distress. [facility] within last 24 hours No results found for: WBC, HGB, HCT, PLT, MCV No results found for: NA, K, CL, CO2, BUN, CREATININE, GLUCOSE, CALCIUM, MG, PHOS No results found for: AST, ALT, PROT, BILITOT, ALKPHOS, INR, APTT, LIPASE No results found for: CKTOTAL, CKMB, TROPONINI No results found for: PROCAL, CHOL, TRIG, HDL, TSH, VITD25, HGBA1C, VANCOTROUGH Assessment and Plan: Active Problems: Concussion Back pain Fall Fall from 15 feet ? Concussion - CT head + C spine at [place] clear - CTA at [facility] with no evidence of aortic aneurysm that was seen on CT chest at [place] -EKG without acute changes from [place] - Continue to monitor mental status, avoid sedating drugs as much as possible - 1000mg Tylenol q6h scheduled for pain control - 2.5mg/5mg oxycodone q4h PRN - Can add muscle relaxer if still having significant pain as patient got a lot of relief from this in the ED, but would like to avoid this if possible as patient was also very sedated after receivingRobaxin - PT/OT to see, discharge likely pending their recs ? RUBIA vs CKD - creatinine 1.4 at [place], unknown baseline - Last creatinine in our system is 0.9 from 02/2021 - Will recheck CMP this AM and see if it has improved COPD/emphysema - Continue home albuterol PRN, singulair 10mg nightly - Will replace Breztri with spiriva/dulera as we do not have Breztri on formulary - CTA showing severe emphysema - May need home O2 eval prior to discharge CAD s/p PCI w/ RICHY to mid + proximal RCA (2015) - Continue daily aspirin/plavix - Continue ranolaxine 500mg BID HTN - BP well controlled so far on admission - Coreg 12.5mg BID substituted for 20mg ER daily - Continue home hydrochlorothiazide 25mg daily - Continue prazosin 1mg nightly HLD - Continue Crestor 10mg daily - Goals of Care: FULL CODE - DVT Prophylaxis: Lovenox 40 q24hr - CrCl >30 - GI Prophylaxis: Not Indicated - Diet: General - BMI Classification: Body mass index is 29.16 kg/m . Overweight (BMI 25-29.9) - Disposition: Admit to F. - Given the signs and symptoms associated with his primary diagnosis in the setting of his comorbidconditions, he is expected to require >48 hrs of hospital care (i.e. inpatient level care). Associated attestation - Julio Cesar Alaniz MD - 12/01/2023 1:58 PM EDT Attending Physician Statement I have discussed the care of Dontae Parra, including pertinent history and exam findings, with the resident/student. I have seen and examined the patient and the potter elements of all parts of the encounter have been performed by me. I agree with the resident/student note with my corrections and additions (in blue). (GC Modifier) I had a discussion with Mr. Parra and family on the afternoon of November 30, on the floor after he had been admitted. At this time Mr. Parra was much more awake and was asking to be discharged, adamantly. Bedside RN was also present. We discussed Mr. Parra's fall, both sons are present and and all agreed that this was a mechanical fall due to tripping and he has had no cardiopulmonary symptoms or neurological deficits. We discussed negative workup at outside hospital as well as here,. We alsodiscussed lab work which initially showed an RUBIA but on repeat check was normalized. I did a neurological and cardiopulmonary exam at bedside which did not show any new findings. He has also been ambu lating and O2 sats have much improved and he is no longer requiring oxygen. I talked to Mr. Parra and explained that although he is medically stable, his fall was a significantone and it would be recommended to watch him overnight to ensure he does not develop any new neurological issues from likely concussion or any other uncontrolled medical problems. Both Mr. Parra and family feel that it would be best for him to go home, as he is ambulating fine and does not have any issues. They are asking for some medications to help with pain and muscle aches which we will be able to provide. I discussed shared decision making that if Mr. Parra were to develop any changes to hismental status, severe headache, neurological deficits, cardiopulmonary symptoms, or vision changes,this would be a reason to call 911 and bring him back to the hospital right away. They are understanding of this and are planning to watch him very closely for at least the next 24 hours if not longer. I discussed concussion safety including following up with his primary care doctor and avoiding any possible repeat injuries and watching out for severe headache. They are understanding of this planand elect for discharge today. Mr. Parra reports he has had a tetanus shot in the last 5 years, so declines repeat immunization. Medications were sent to nearby open pharmacy. documented in this [place] [id number] Hospital Discharge instructions* Discharge Instructions* Baldo Gastelum MD - 12/01/2023 6:27 AM EDT Images from the original note were not included. Orthopaedic Surgery Discharge Instructions: -Weight bearing as tolerated -Activity as tolerated, except avoid heavy lifting/pulling/otherwise strenuous activity -Follow-up outpatient with Dr. Akins. The office contact information is provided in your paperwork. -IF you experience SEVERE worsening of pain in short period of time and/or significant numbness/weakness in extremities or new loss of bowel or bladder function please call the office or return to the emergency department -Take medications as prescribed by the hospital doctors * Discharge Instr - Other Orders* Kathya Crockett APRN - JEWELRY FACER - 12/01/2023 6:29 AM EDT Behavioral Health Resources for Trauma Survivors After experiencing a traumatic event, some people may find that they experience psychological distress that can impact their daily functioning and relationships. Common reactions to traumatic events include having unwanted memories or dreams of the event, feeling upset when reminded of the event, tr fanny to avoid things that may remind you of the event, or experiencing changes in your thinking, relationships, and behaviors that negatively impact your life. There are resources, including counseling and medications, that can help you to talk about and adjust to the traumatic event and limit its impact on your life. Please consider calling one of the following behavioral health agencies for support: [facility] [address], [facility] [phone] [facility] [address], [facility] [phone] [facility] [address], [facility] [phone] Should you be out of the [facility] area, you can use this resource to locate local mental health agencies: Find[employer] Victim Assistance Program- provides resources and support to victims of violent crimes, offers victim advocates for those involved in legal proceedings [phone] Should you need immediate help in coping with symptoms or should you feel at risk of harming yourself or others, please use the following crisis resources: Crisis Hotline: 306 Crisis Text Helpine: Text 4HOPE to 677896 Call 911 or go to your nearest emergency department * Discharge Instr - DANTE* Maurilio Johnston RN - 12/01/2023 2:10 PM EDT * Attachments The following attachments cannot be sent through Care Everywhere. * Concussion Discharge Instructions, Adult (Slovak) documented in this [facility]10-12-2024 Consult note* Jimbo Calvillo MD - 12/01/2023 5:40 AM EDTAssociated Order(s): IP CONSULT TO ORTHOPAEDIC SURGERY Images from the original note were not included. Ortho Spine Consult Patient: Dontae Parra Date of : 1975 Acct: [id number] PCP: Dylan Magallon Date of Admission: 12/01/2023 Date of Service: Pt seen/examined on 12/01/2023 Chief Complaint: Low back pain History Of Present Illness: 48 y.o. male who presents with low back pain after a fall of 15 feet off of a ladder while putting his tree stand up. His son is present and states that a lot of the patients weight fell onto him before the patient hit the ground. The patient does not remember the circumstances of the fall. The son states that when the patient fell he landed mostly on his low back andbutt. At this time the patient is endorsing some midline low back pain as well as pain in the lumbar paraspinal musculature. He denies any new numbness and tingling. He states that he has previous sensory and motor deficits to his ring and pinky fingers on both hands from previous accidents and has no new upper extremity symptoms. He states that he feels a little weaker in his legs but that he thinks it is because of the pain in his back. He does have chronic left lower extremity radicular pain that is largely unchanged since his fall. His main complaint is his low back. He denies any bowel incontinence or urinary retention. Denies saddle anesthesia. Prior to falling he notes chronic back pain. His back mostly hurts when initially starting to walk but then loosens up. Patient denies alcohol or drug use. He states he does smoke cigarettes. He has a significant heart history with multiple stenting procedures. Hx from chart and/or Pt. Patient ambulation status: no difficulty. Antiplatelets/Anticoagulation includes: Aspirin and Plavix . Past Medical History: Past Medical History: Diagnosis Date Acid reflux Asthma CAD (coronary artery disease) COPD (chronic obstructive pulmonary disease) ([facility]) Emphysema of lung ([facility]) 2010 Erectile dysfunction GERD (gastroesophageal reflux disease) History of echocardiogram 10/20/2015 EF 50%, trivial MR History of percutaneous coronary intervention 02/11/2016 RICHY - prox RCA, RICHY - mid RCA, patent ramus stent, EF 50-55% Hyperlipidemia Hypertension Hypotestosteronism Presence of stent in coronary artery Restless leg STEMI (ST elevation myocardial infarction) ([facility]) 09/2015 posterior wall Tobacco use disorder Past Surgical History: Recent Surgeries in Orthopedic Surgery No cases to display Home Medications: Prior to Admission medications Medication Sig Start Date End Date Taking? Authorizing Provider BUDESONIDE-FORMOTEROL FUMARATE IN Take 2 puffs by mouth in the morning and 2 puffs in the evening. 01/22/23 Yes Historical Provider, montelukast (Singulair) 10 MG tablet Take 10 mg by mouth Nightly. 01/08/23 Yes Historical Provider, albuterol 108 (90 Base) MCG/ACT inhaler Inhale 2 puffs every 6 hours as needed. Historical Provider, benralizumab (Fasenra) 30 MG/ML injection Inject 30 mg under the skin every 8 (eight) weeks. Historical Provider, nitroglycerin (Nitrostat) 0.[address] 0.4 mg under the tongue every 5 minutes as needed for chest pain. Historical Provider, prazosin (Minipress) 1 MG capsule Take 1 mg by mouth Nightly. Historical Provider, ranolazine (Ranexa) 500 MG 12 hr tablet Take 500 mg by mouth 2 times daily. Do not crush, chew, or split. Historical Provider, traZODone (Desyrel) 50 MG tablet Take 50 mg by mouth Nightly. Historical Provider, Current Hospital Medications: No current facility-administered medications for this encounter. Current Outpatient Medications: BUDESONIDE-FORMOTEROL FUMARATE IN, Take 2 puffs by mouth in the morning and 2 puffs in the evening., Disp: , Rfl: montelukast (Singulair) 10 MG tablet, Take 10 mg by mouth Nightly., Disp: , Rfl: albuterol 108 (90 Base) MCG/ACT inhaler, Inhale 2 puffs every 6 hours as needed., Disp: , Rfl: benralizumab (Fasenra) 30 MG/ML injection, Inject 30 mg under the skin every 8 (eight) weeks., Disp: , Rfl: nitroglycerin (Nitrostat) 0.4 MG SL tablet, Place 0.4 mg under the tongue every 5 minutes as neededfor chest pain., Disp: , Rfl: prazosin (Minipress) 1 MG capsule, Take 1 mg by mouth Nightly., Disp: , Rfl: ranolazine (Ranexa) 500 MG 12 hr tablet, Take 500 mg by mouth 2 times daily. Do not crush, chew, orsplit., Disp: , Rfl: traZODone (Desyrel) 50 MG tablet, Take 50 mg by mouth Nightly., Disp: , Rfl: Allergies: Amlodipine, Atorvastatin, and Isosorbide Social History: Social History Socioeconomic History Marital status: Spouse name: Not on file Number of children: Not on file Years of education: Not on file Highest education level: Not on file Occupational History Not on file Tobacco Use Smoking status: Every Day Current packs/day: 0.00 Types: Cigarettes Last attempt to quit: 10/19/2015 Years since quittin.1 Smokeless tobacco: Never Tobacco comments: Quit smoking: He continues to smoke 1ppd. He plans to start Chantix soon Substance and Sexual Activity Alcohol use: No Drug use: No Sexual activity: Not on file Other Topics Concern Not on file Social History Narrative Not on file Social Determinants of Health Financial Resource Strain: Not on file Food Insecurity: Not on file Transportation Needs: Not on file Physical Activity: Not on file Stress: Not on file Social Connections: Not on file Intimate Partner Violence: Not on file Housing Stability: Not on file Family History: Family History Problem Relation Name Age of Onset No Known Problems Mother Cancer Father Heart attack Maternal Grandmother Further Family History is noncontributory to this injury. REVIEW OF SYSTEMS: Review of Systems - General ROS: negative for - chills, fatigue, fever, malaise or night sweats Psychological ROS: negative Ophthalmic ROS: negative ENT ROS: negative for - headaches or sore throat Hematological and Lymphatic ROS: negative for - bleeding problems or blood clots Respiratory ROS: no cough, shortness of breath, or wheezing Cardiovascular ROS: no chest pain or dyspnea on exertion Gastrointestinal ROS: negative Musculoskeletal ROS: See HPI Neurological ROS: See HPI All other systems reviewed and are negative PHYSICAL EXAM: BP 108/66 Pulse 83 Temp 36.6 C (97.9 F) (Oral) Resp 18 Ht 1.829 m (6') Wt 97.5 kg (215 lb) SpO2 94% BMI 29.16 kg/m GENERAL APPEARANCE: Awake and oriented x3. No acute distress, except appropriate to injury. MOOD AND AFFECT: Appropriate to situation GAIT AND STATION: Patient is in bed and unable to ambulate secondary to known injury. COORDINATION and BALANCE: Patient is grossly coordinated unable to ambulate secondary to known injury. Spine Exam: * Exam was limited due to pain: Yes, int he lower extremities Direct Spine Inspection: TTP was present in lumbar spine and the lumbar paraspinal musculature SA EF WE EE WF GS HI RUE 5 5 5 5 5 5 4 Sensation: Intact C3-T1 with normal sensation in all distributions except the C8 and T1 dermatomes in the hand. This is a chronic deficit from previous accident. Radial pulse: Palpable TTP in the following areas: Shoulder. Hand intrinsic strength decreased in the little and ring fingers from previous accident. SA EF WE EE WF GS HI LUE 5 5 5 5 5 5 4 Sensation: Intact C3-T1 with normal sensation in all distributions except the C8 and T1 dermatomes in the hand. This is a chronic deficit from previous accident. Radial pulse: Palpable TTP in the following areas: nontender throughout extremity. Hand intrinsic strength decreased in the little and ring fingers from previous accident. HF KE DF EHL PF RLE 4 4 5 4 4 Motor exam limited by low back pain Sensation: Intact L2-S1 with normal sensation Pulses: DP Palpable TTP in the following areas: Nontender throughout remainder of extremity Pain w Straight leg raise: Yes HF KE DF EHL PF LLE 4 4 5 4 4 Motor exam limited by low back pain Sensation: Intact L2-S1 with normal sensation Pulses: DP Palpable TTP in the following areas: Tender over the lateral mall Pain w Straight leg raise: Yes Deep Tendon Reflexes: Right Bicep: 2+ Left Bicep: 2+ Right Brachioradialis: 2+ Left Brachioradialis: 2+ Antonio: absent Right Knee: 2+ Left Knee: 2+ Right Ankle: 2+ Left Ankle: 2+ Right Ankle Clonus: absent Left Ankle Clonus: absent Babinski: downgoing Rectal Exam: Tone: present Sensation present Able to differentiate sharp/dull: present Labs: No results for input(s): WBC, HGB, HCT, PLT in the last 72 hours. No results for input(s): NA, K, CL, CO2, BUN, CREATININE, CALCIUM, PHOS in the last72 hours. No lab exists for component: MAGNES No results for input(s): INR in the last 72 hours. No results for input(s): SEDRATE, CRP in the last 72 hours. No results for input(s): HCG in the last 72 hours. The above labs were reviewed by me. Radiology: The following images were independently reviewed and interpreted XR: Left ankle No acute fracture or dislocation. Degenerative changes noted Right shoulder No acute fracture or dislocation. CT: C-spine No acute fracture or dislocation. Vertebral body heights are well-maintained. Mild cervical spondylosis noted. Facet joints are congruent bilaterally. Significant on bilateral are patent. Chest abdomen pelvis No acute fracture or dislocation of the visualized rectal lumbar spine. Facet joints are congruent bilaterally. Central canal is patent. Bilateral foramen are patent. No fractures about the pelvis. No fractures about the femoral necks. MRI: N/A Radiology report reviewed. ASSESSMENT: 48 y.o. male with acute on chronic low/mid back pain with left lower extremity radiculopathy s/p fall from tree stand PLAN: -wD/W Dr. Akins -No acute surgical intervention as he is neurointact without fracture -Bracing not required -WBAT -Activity as tolerated -Neurovascular checks -Skin checks -Follow-up outpatient -Dispo per ED -Orthopaedic surgery will sign off. Please page monotype mechanic orthopaedic resident for questions or concerns. Baldo Gastelum MD PGY-2 Orthopedic Surgery 12/01/2023 7:14 AM Jimbo Calvillo MD Orthopaedic Surgery, PGY-3 12/01/2023 7:21 AM [facility] Work Phone: [phone] 816-769110-12-2024 Consult note* Jimbo Calvillo MD - 12/01/2023 5:40 AM EDTAssociated Order(s): IP CONSULT TO ORTHOPAEDIC SURGERY Images from the original note were not included. Ortho Spine Consult Patient: Dontae Parra Date of : 1975 Acct: [id number] PCP: Dylan Magallon Date of Admission: 12/01/2023 Date of Service: Pt seen/examined on 12/01/2023 Chief Complaint: Low back pain History Of Present Illness: 48 y.o. male who presents with low back pain after a fall of 15 feet off of a ladder while putting his tree stand up. His son is present and states that a lot of the patients weight fell onto him before the patient hit the ground. The patient does not remember the circumstances of the fall. The son states that when the patient fell he landed mostly on his low back andbutt. At this time the patient is endorsing some midline low back pain as well as pain in the lumbar paraspinal musculature. He denies any new numbness and tingling. He states that he has previous sensory and motor deficits to his ring and pinky fingers on both hands from previous accidents and has no new upper extremity symptoms. He states that he feels a little weaker in his legs but that he thinks it is because of the pain in his back. He does have chronic left lower extremity radicular pain that is largely unchanged since his fall. His main complaint is his low back. He denies any bowel incontinence or urinary retention. Denies saddle anesthesia. Prior to falling he notes chronic back pain. His back mostly hurts when initially starting to walk but then loosens up. Patient denies alcohol or drug use. He states he does smoke cigarettes. He has a significant heart history with multiple stenting procedures. Hx from chart and/or Pt. Patient ambulation status: no difficulty. Antiplatelets/Anticoagulation includes: Aspirin and Plavix . Past Medical History: Past Medical History: Diagnosis Date Acid reflux Asthma CAD (coronary artery disease) COPD (chronic obstructive pulmonary disease) ([facility]) Emphysema of lung ([facility]) 2010 Erectile dysfunction GERD (gastroesophageal reflux disease) History of echocardiogram 10/20/2015 EF 50%, trivial MR History of percutaneous coronary intervention 02/11/2016 RICHY - prox RCA, RICHY - mid RCA, patent ramus stent, EF 50-55% Hyperlipidemia Hypertension Hypotestosteronism Presence of stent in coronary artery Restless leg STEMI (ST elevation myocardial infarction) ([facility]) 09/2015 posterior wall Tobacco use disorder Past Surgical History: Recent Surgeries in Orthopedic Surgery No cases to display Home Medications: Prior to Admission medications Medication Sig Start Date End Date Taking? Authorizing Provider BUDESONIDE-FORMOTEROL FUMARATE IN Take 2 puffs by mouth in the morning and 2 puffs in the evening. 01/22/23 Yes Historical Provider, montelukast (Singulair) 10 MG tablet Take 10 mg by mouth Nightly. 01/08/23 Yes Historical Provider, albuterol 108 (90 Base) MCG/ACT inhaler Inhale 2 puffs every 6 hours as needed. Historical Provider, benralizumab (Fasenra) 30 MG/ML injection Inject 30 mg under the skin every 8 (eight) weeks. Historical Provider, nitroglycerin (Nitrostat) 0.[address] 0.4 mg under the tongue every 5 minutes as needed for chest pain. Historical Provider, prazosin (Minipress) 1 MG capsule Take 1 mg by mouth Nightly. Historical Provider, ranolazine (Ranexa) 500 MG 12 hr tablet Take 500 mg by mouth 2 times daily. Do not crush, chew, or split. Historical Provider, traZODone (Desyrel) 50 MG tablet Take 50 mg by mouth Nightly. Historical Provider, Current Hospital Medications: No current facility-administered medications for this encounter. Current Outpatient Medications: BUDESONIDE-FORMOTEROL FUMARATE IN, Take 2 puffs by mouth in the morning and 2 puffs in the evening., Disp: , Rfl: montelukast (Singulair) 10 MG tablet, Take 10 mg by mouth Nightly., Disp: , Rfl: albuterol 108 (90 Base) MCG/ACT inhaler, Inhale 2 puffs every 6 hours as needed., Disp: , Rfl: benralizumab (Fasenra) 30 MG/ML injection, Inject 30 mg under the skin every 8 (eight) weeks., Disp: , Rfl: nitroglycerin (Nitrostat) 0.4 MG SL tablet, Place 0.4 mg under the tongue every 5 minutes as neededfor chest pain., Disp: , Rfl: prazosin (Minipress) 1 MG capsule, Take 1 mg by mouth Nightly., Disp: , Rfl: ranolazine (Ranexa) 500 MG 12 hr tablet, Take 500 mg by mouth 2 times daily. Do not crush, chew, orsplit., Disp: , Rfl: traZODone (Desyrel) 50 MG tablet, Take 50 mg by mouth Nightly., Disp: , Rfl: Allergies: Amlodipine, Atorvastatin, and Isosorbide Social History: Social History Socioeconomic History Marital status: Spouse name: Not on file Number of children: Not on file Years of education: Not on file Highest education level: Not on file Occupational History Not on file Tobacco Use Smoking status: Every Day Current packs/day: 0.00 Types: Cigarettes Last attempt to quit: 10/19/2015 Years since quittin.1 Smokeless tobacco: Never Tobacco comments: Quit smoking: He continues to smoke 1ppd. He plans to start Chantix soon Substance and Sexual Activity Alcohol use: No Drug use: No Sexual activity: Not on file Other Topics Concern Not on file Social History Narrative Not on file Social Determinants of Health Financial Resource Strain: Not on file Food Insecurity: Not on file Transportation Needs: Not on file Physical Activity: Not on file Stress: Not on file Social Connections: Not on file Intimate Partner Violence: Not on file Housing Stability: Not on file Family History: Family History Problem Relation Name Age of Onset No Known Problems Mother Cancer Father Heart attack Maternal Grandmother Further Family History is noncontributory to this injury. REVIEW OF SYSTEMS: Review of Systems - General ROS: negative for - chills, fatigue, fever, malaise or night sweats Psychological ROS: negative Ophthalmic ROS: negative ENT ROS: negative for - headaches or sore throat Hematological and Lymphatic ROS: negative for - bleeding problems or blood clots Respiratory ROS: no cough, shortness of breath, or wheezing Cardiovascular ROS: no chest pain or dyspnea on exertion Gastrointestinal ROS: negative Musculoskeletal ROS: See HPI Neurological ROS: See HPI All other systems reviewed and are negative PHYSICAL EXAM: BP 108/66 Pulse 83 Temp 36.6 C (97.9 F) (Oral) Resp 18 Ht 1.829 m (6') Wt 97.5 kg (215 lb) SpO2 94% BMI 29.16 kg/m GENERAL APPEARANCE: Awake and oriented x3. No acute distress, except appropriate to injury. MOOD AND AFFECT: Appropriate to situation GAIT AND STATION: Patient is in bed and unable to ambulate secondary to known injury. COORDINATION and BALANCE: Patient is grossly coordinated unable to ambulate secondary to known injury. Spine Exam: * Exam was limited due to pain: Yes, int he lower extremities Direct Spine Inspection: TTP was present in lumbar spine and the lumbar paraspinal musculature SA EF WE EE WF GS HI RUE 5 5 5 5 5 5 4 Sensation: Intact C3-T1 with normal sensation in all distributions except the C8 and T1 dermatomes in the hand. This is a chronic deficit from previous accident. Radial pulse: Palpable TTP in the following areas: Shoulder. Hand intrinsic strength decreased in the little and ring fingers from previous accident. SA EF WE EE WF GS HI LUE 5 5 5 5 5 5 4 Sensation: Intact C3-T1 with normal sensation in all distributions except the C8 and T1 dermatomes in the hand. This is a chronic deficit from previous accident. Radial pulse: Palpable TTP in the following areas: nontender throughout extremity. Hand intrinsic strength decreased in the little and ring fingers from previous accident. HF KE DF EHL PF RLE 4 4 5 4 4 Motor exam limited by low back pain Sensation: Intact L2-S1 with normal sensation Pulses: DP Palpable TTP in the following areas: Nontender throughout remainder of extremity Pain w Straight leg raise: Yes HF KE DF EHL PF LLE 4 4 5 4 4 Motor exam limited by low back pain Sensation: Intact L2-S1 with normal sensation Pulses: DP Palpable TTP in the following areas: Tender over the lateral mall Pain w Straight leg raise: Yes Deep Tendon Reflexes: Right Bicep: 2+ Left Bicep: 2+ Right Brachioradialis: 2+ Left Brachioradialis: 2+ Antonio: absent Right Knee: 2+ Left Knee: 2+ Right Ankle: 2+ Left Ankle: 2+ Right Ankle Clonus: absent Left Ankle Clonus: absent Babinski: downgoing Rectal Exam: Tone: present Sensation present Able to differentiate sharp/dull: present Labs: No results for input(s): WBC, HGB, HCT, PLT in the last 72 hours. No results for input(s): NA, K, CL, CO2, BUN, CREATININE, CALCIUM, PHOS in the last72 hours. No lab exists for component: MAGNES No results for input(s): INR in the last 72 hours. No results for input(s): SEDRATE, CRP in the last 72 hours. No results for input(s): HCG in the last 72 hours. The above labs were reviewed by me. Radiology: The following images were independently reviewed and interpreted XR: Left ankle No acute fracture or dislocation. Degenerative changes noted Right shoulder No acute fracture or dislocation. CT: C-spine No acute fracture or dislocation. Vertebral body heights are well-maintained. Mild cervical spondylosis noted. Facet joints are congruent bilaterally. Significant on bilateral are patent. Chest abdomen pelvis No acute fracture or dislocation of the visualized rectal lumbar spine. Facet joints are congruent bilaterally. Central canal is patent. Bilateral foramen are patent. No fractures about the pelvis. No fractures about the femoral necks. MRI: N/A Radiology report reviewed. ASSESSMENT: 48 y.o. male with acute on chronic low/mid back pain with left lower extremity radiculopathy s/p fall from tree stand PLAN: -wD/W Dr. Akins -No acute surgical intervention as he is neurointact without fracture -Bracing not required -WBAT -Activity as tolerated -Neurovascular checks -Skin checks -Follow-up outpatient -Dispo per ED -Orthopaedic surgery will sign off. Please page monotype mechanic orthopaedic resident for questions or concerns. Baldo Gastelum MD PGY-2 Orthopedic Surgery 12/01/2023 7:14 AM Jimbo Calvillo MD Orthopaedic Surgery, PGY-3 12/01/2023 7:21 AM documented in this [facility]10-12-2024 Physician Emergency department Note* Missy Jones DO - 12/01/2023 2:48 AM EDT EMERGENCY DEPARTMENT ENCOUNTER Pt Name: Dontae Parra Birthdate 1975 Date of evaluation: 12/01/2023 ED Provider: Missy Jones DO CHIEF COMPLAINT Chief Complaint Patient presents with Abdominal Injury Transfer from [place] for trauma consult. Fall from tree stand 15-17 feet. 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 I wore appropriate PPE for the entirety of this encounter. HPI Dontae Parra is a 48 y.o. who presents to the emergency department as a transfer from outside emergency department with concern for fall and aortic arch abnormality on imaging. Patient fell from a tree stand which was approximately 15 to 17 feet from the ground in the evening of 11/29. He confirms back pain. Nursing Notes were reviewed. Limitations to history: None Outside historians: None REVIEW OF SYSTEMS Review of Systems Pertinent positives and negatives as per HPI. PAST MEDICAL HISTORY Past Medical History: Diagnosis Date Acid reflux Asthma CAD (coronary artery disease) COPD (chronic obstructive pulmonary disease) ([facility]) Emphysema of lung ([facility]) 2010 Erectile dysfunction GERD (gastroesophageal reflux disease) History of echocardiogram 10/20/2015 EF 50%, trivial MR History of percutaneous coronary intervention 02/11/2016 RICHY - prox RCA, RICHY - mid RCA, patent ramus stent, EF 50-55% Hyperlipidemia Hypertension Hypotestosteronism Presence of stent in coronary artery Restless leg STEMI (ST elevation myocardial infarction) ([facility]) 09/2015 posterior wall Tobacco use disorder SURGICAL HISTORY Past Surgical History: Procedure Laterality Date CARDIAC CATHETERIZATION Left 08/03/2016 CORONARY ANGIOPLASTY 10/19/2015 R[facility]Y to proximal ramus CORONARY ANGIOPLASTY 02/11/2016 R[facility]Y to prox & mid RCA HAND SURGERY HERNIA REPAIR KNEE SURGERY CURRENT MEDICATIONS Previous Medications ALBUTEROL 108 (90 BASE) MCG/ACT INHALER Inhale 2 puffs every 6 hours as needed. BENRALIZUMAB (FASENRA) 30 MG/ML INJECTION Inject 30 mg under the skin every 8 (eight) weeks. BUDESONIDE-FORMOTEROL FUMARATE IN Take 2 puffs by mouth in the morning and 2 puffs in the evening. BUPROPION SR (WELLBUTRIN SR) 150 MG 12 HR TABLET Take 150 mg by mouth 2 times daily. Do not crush, chew, or split. CARVEDILOL CR (COREG CR) 20 MG 24 HR CAPSULE Take 20 mg by mouth daily. Do not crush or chew. CLOPIDOGREL (PLAVIX) 75 MG TABLET Take 75 mg by mouth daily. HYDROCHLOROTHIAZIDE (HYDRODIURIL) 25 MG TABLET Take 25 mg by mouth daily. MAGNESIUM 250 MG CAPSULE Take 250 mg by mouth daily. MONTELUKAST (SINGULAIR) 10 MG TABLET Take 10 mg by mouth Nightly. NITROGLYCERIN (NITROSTAT) 0.[address] 0.4 mg under the tongue every 5 minutes as needed for chest pain. OMEPRAZOLE (PRILOSEC) [address] CAPSULE Take 40 mg by mouth every morning (before breakfast). Do notcrush or chew. POTASSIUM CHLORIDE CR (KLOR-CON M20) 20 MEQ ER TABLET Take 20 mEq by mouth daily. Do not crush or chew. PRAZOSIN (MINIPRESS) 1 MG CAPSULE Take 1 mg by mouth Nightly. RANOLAZINE (RANEXA) 500 MG 12 HR TABLET Take 500 mg by mouth 2 times daily. Do not crush, chew, or split. ROSUVASTATIN (CRESTOR) 10 MG TABLET Take 10 mg by mouth daily. TRAZODONE (DESYREL) 50 MG TABLET Take 50 mg by mouth Nightly. ALLERGIES Amlodipine, Atorvastatin, and Isosorbide FAMILY HISTORY Family History Problem Relation Name Age of Onset No Known Problems Mother Cancer Father Heart attack Maternal Grandmother SOCIAL HISTORY Social History Socioeconomic History Marital status: Tobacco Use Smoking status: Every Day Current packs/day: 0.00 Types: Cigarettes Last attempt to quit: 10/19/2015 Years since quittin.1 Smokeless tobacco: Never Tobacco comments: Quit smoking: He continues to smoke 1ppd. He plans to start Chantix soon Substance and Sexual Activity Alcohol use: No Drug use: No SCREENINGS PHYSICAL EXAM ED Triage Vitals [12/01/23 0257] Temp Heart Rate Resp BP 36.6 C (97.9 F) 83 18 108/66 SpO2 Temp Source Heart Rate Source Patient Position 94 % Oral -- -- BP Location FiO2 (%) -- -- Physical Exam PRIMARY SURVEY: Vital signs: reviewed, as documented Airway: patent, patient talking, no hoarse or muffled voice Pulmonary: spontaneous respiration, bilateral breath sounds Cardiovascular: Regular rate, peripheral pulses intact Disability: GCS 15 gross motor intact upper and lower extremities gross sensory intact upper and lower extremities SECONDARY SURVEY: General: Awake and alert, oriented x3 Head: normocephalic, small superficial abrasion, no cephalohematoma or lacerations, no facial deformity Eyes: PERRL, pupils 3 mm b/l, EOMI, no signs of trauma Ears: Grossly normal Nose: no blood in nares bilaterally, no fluid drainage, no septal hematoma Face: midface stable and nontender Mouth: oropharynx clear, no fractured teeth Neck: cervical collar in place, trachea midline with no masses, no midline tenderness Chest: nontender, no crepitance, lungs CTA bilaterally Abdomen: soft, non-tender, non-distended Pelvis: stable to compression and nontender Musculoskeletal: Right Arm: no obvious deformity, strength and sensation grossly intact, distal pulses intact Left Arm: no obvious deformity, strength and sensation grossly intact, distal pulses intact Right Leg: no obvious deformity, strength and sensation grossly intact, distal pulses intact Left Leg: no obvious deformity, strength and sensation grossly intact, distal pulses intact Back: Midline T-spine tenderness without bony step-offs or deformities, no midline tenderness, no step-offs Integumentary: warm, dry DIAGNOSTIC RESULTS RADIOLOGY (Per Emergency Physician): Interpretation per the Radiologist below, if available at the time of this note: XR ankle 3+ views left Final Result XR shoulder 2+ views right Final Result 1. Negative examination of the right shoulder. Report Dictated on Electronically Signed By: Yony Rogers MD Electronically Signed Date/Time: 12/01/2023 6:08 AM EDT CTA chest abdomen pelvis angiogram w and/or wo contrast Final Result 1. Marked thick plaque deposition abdominal aorta without aneurysm. 2. Unremarkable aortic arch except for atherosclerosis with bovine type branching pattern with no definite traumatic injury pattern (no mediastinal hematoma seen). Moderate bibasilar areas of infiltrate/atelectasis with underlying marked centrilobular emphysema. Report Dictated on Electronically Signed By: Yony Rogers MD Electronically Signed Date/Time: 12/01/2023 5:02 AM EDT LABS: Labs Reviewed - No data to display All other labs were within normal range or not returned as of this dictation. EMERGENCY DEPARTMENT COURSE and DIFFERENTIAL DIAGNOSIS/MDM: Vitals: Vitals: 12/01/23 0257 12/01/23 0547 12/01/23 0649 BP: 108/66 120/68 111/67 Pulse: 83 85 78 Resp: 18 18 21 Temp: 36.6 C (97.9 F) TempSrc: Oral SpO2: 94% 95% 94% Weight: 97.5 kg (215 lb) Height: 1.829 m (6') The patient presented with a chief complaint of fall. Vitals reviewed. The differential diagnosis associated with this patient's presentation includes acute fracture or dislocation, aortic abnormality. Our workup consisted of ordering/reviewing imaging obtained at outside hospital as well as CTA chest abdomen pelvis obtained here. CTA here shows plaque deposition of abdominal aorta and unremarkable aortic arch. Trauma surgery saw and evaluated the patient at bedside and consulted orthopedic surgery with concern for T-spine tenderness on exam. Orthopedic surgery recommending no acute surgical intervention or further imaging. Given Tylenol, lidocaine patch, and Robaxin in the emergency department. He was given IV narcotics at outside hospital prior to transfer as well. Of note, patient states he sees pulmonology and his oxygen saturation runs in the 70s to 80s at baseline and he was supposed to start supplemental oxygen but does not have access at home currently. He is on 4 L nasal cannula here satting 94%. To be admitted for further evaluation and management. Patient understands and is in agreement with this plan. ED Course as of 12/01/23728 Sat Dec 01, 2023 0711 [place] to see. Medical admission for pain control and chronic hypoxic respiratory failure. [RP] ED Course User Index [RP] Beatriz Wilson MD Diagnoses as of 12/01/23728 Fall, initial encounter External records reviewed: Outside hospital notes and imaging Diagnostics interpreted by me: none Discussions with other clinicians: [facility] trauma surgery Chronic conditions impacting care: none Social determinants of health affecting care: none ED Medications managed: Medications Lidocaine 4 % patch 1 patch (has no administration in time range) iopamidol (Isovue-370) 76 % injection 100 mL (100 mL IntraVENous Given 12/01/23 0435) acetaminophen (Tylenol) tablet 1,000 mg (1,000 mg Oral Given 12/01/23656) methocarbamol (Robaxin) injection 1,000 mg (1,000 mg IntraVENous Given 12/01/23656) Prescription drugs considered: None PROCEDURES: Unless otherwise noted below, none Procedures FINAL IMPRESSION 1. Fall, initial encounter DISPOSITION Admit PATIENT REFERRED TO: [facility] - [address] [facility] [address] Schedule an appointment as soon as possible for a visit As needed Dylan Magallon [address] [place] [phone] Schedule an appointment as soon as possible for a visit Timi Valderrama MD [address] [place] [address] Follow up in 2 week(s) Hospital Follow Up DISCHARGE MEDICATIONS: New Prescriptions No medications on file (Comment: Please note this report has been produced using speech recognition software and may contain errors related to that system including errors in grammar, punctuation, and spelling, as well as words and phrases that may be inappropriate. If there are any questions or concerns please feel freeto contact the dictating provider for clarification.) Missy Jones DO (electronically signed) Emergency Medicine Provider Missy Jones DO Resident 12/01/23 0731 [facility] Phone: 1(148) 828-886110-12-2024 Physician Emergency department Note* Cabrera Thomas DO - 12/01/2023 2:48 AM EDT Emergency Department Encounter [facility] Patient: Dontae Parra : 1975 Date of Evaluation: 12/01/2023 ED Supervising Physician: Cabrera Thomas DO I personally evaluated Dontae Parra and made/approved the management plan and take responsibility for the patient management. This will serve as my Supervisory note and shared attestation. I did perform a substantive portion of the visit including all aspects of the Medical Decision Making. I wore appropriate PPE for the entirety of this encounter. In brief, Dontae Parra is a 48 y.o. that presents to the emergency department with complaints of back pain. Patient was transferred here from outside hospital. Patient fell 15 to 17 feet, landed on his back, positive head strike, negative loss of consciousness. Patient was worked up at outside facility showed no acute traumatic injury on CT imaging however cortical irregularity to the aortic arch.Patient was transferred here for further evaluation. Additionally patient continues to have back pain. Denies any loss of bladder or bowel control, saddle anesthesia, vision changes, chest pain, shortness of breath, dysuria, hematuria. Focused exam: On exam, vitals stable. Gen: Nontoxic appearing. Head: NC, abrasion to the posterior right scalp with hemostasis CV: RRR. Resp: CTA bilaterally. Abd: Abd soft and notender. Back: Generalized tenderness to palpation Ext: No obvious deformity or abnormalities of bilat UE and LE, Pulses 2+ bilateral UE and LE. Neuro: No focal neurologic deficit. Skin: No obvious rashes, warm, dry Brief ED course/MDM: Patient with presents to the ED with a chief complaint of back pain. Additional information found above and also refer to susie/resident note for further details. On exam, vitals stable. Per above. Otherwise per above Additional information found above and also refer to susie/resident note for further details. (Differential diagnosis) With consideration of age, sex/gender, risk factors, to evaluate patient for high risk causes of morbidity and mortality such as, but not limited to, fracture vs strain vs contusion vs other Today we will obtain repeat CT angio for further evaluation of aortic arch Diagnostic tests considered but not performed: n/a Independently reviewed external documents including previous family medicine notes. Per chart review, patient has been followed for or diagnosed with COPD, HLD in the past. Will consider these factors in evaluation and management for today's care. Discussed plan with patient who agrees with current plan. Diagnostics interpreted by me: Per below I personally discussed the patient's management with other clinicians: Trauma consult, orthopedic consult End of visit medical decision making Patient was reassessed. Resting comfortably. No acute distress. Independently reviewed and interpreted the lab results which demonstrated the following: No significant leukocytosis, no significant anemia, all electrolytes within normal limits Independently reviewed the reports of other imaging which demonstrated the following: Marked thick plaque deposition abdominal aorta without aneurysm. 2. Unremarkable aortic arch except for atherosclerosis with bovine type branching pattern with no definite traumatic injury pattern (no mediastinal hematoma seen). Moderate bibasilar areas of infiltrate/atelectasis with underlying marked centrilobular emphysema. Response to medical management provided in the ED: improving (Consults) Discussed care with: trauma, orthoedpics Discussed all results with patient and/or family members. They verbalize understanding. Offered admission for further management. Discussed risks, benefits and alternatives for further management in the hospital. Due to high risk of morbidity and mortality of the stated findings and results, patient will be admitted for further management and care. Patient is agreeable to the plan. Discussed patient, presentation and workup with admitting team. Admitting team is agreeable to current workup and evaluation. They will admit the patient and provide further care. Pending results to be followed by primary admitting team. Patient will need med level of care and not appropriate for lower acuity location of care due to risk of morbidity and mortality Patient's condition and/or care was impacted by recent fall, copd Patient's condition and/or care was significantly impacted by social determinants of health including: n/a All diagnostic, treatment, and disposition decisions were made by myself in conjunction with the Resident. I also supervised potter portions of any procedures performed by the Resident. For all further details of the patient's emergency department visit, please see their documentation. (Comment: Please note this report has been produced using speech recognition software and may contain errors related to that system including errors in grammar, punctuation, and spelling, as well as words and phrases that may be inappropriate. If there are any questions or concerns please feel freeto contact the dictating provider for clarification.) Cabrera Thomas DO [employer] Cabrera Thomas DO 12/01/232239 [facility] [employer] Phone: [phone] Procedure [facility] 10-17-2022 Hospital Discharge instructions Patient Education 10/17/2022 20:15:40 Paraesthesias Paraesthesias Paraesthesia is a burning or prickling sensation that is sometimes felt in the hands, arms, legs orfeet. It can also occur in other parts [...] medicines you take. This includes prescription and itjb-dyd-eqfaddf medicines, vitamins, and herbs. Ask if any [...] Open wound with redness, swelling, or pus [id number] [employer]. [address] [place] [address]. All rights reserved. This information is not intended as a substitute for professional medical care. Always follow yourhealthcare professional's instructions. Follow Up Care 10/17/2022 20:03:40 With:Go to emergency room if symptoms worsen Address:Unknown When:2-4 days With:DANILO ALVARADO MD Address: [address] [place] [address]- When:2-4 days [facility] 08-29-2023 Emergency department Discharge summary Discharge Instructions Thank you for allowing [facility] to assist you with your healthcare needs. The following is importantdischarge information regarding your hospital visit. Diagnosis from Today's Visit Arm pain Pain in left arm Paresthesia What to Do Next Instructions from Your Care Team Take Tylenol and or Motrin as needed for pain. Not exceed the recommended dose. Take Flexeril only as needed for severe pain. Do not exceed the recommended dose. Do not take Flexeril before operatingheavy machinery. Follow-up for ultrasound left arm to rule out blood clot. Follow-up with your primary care provider. If continued tingling may need follow-up with neurologist for EMG or further testing. Discharge ED Outpatient Vascular Lab - Ordered -- Test Requested: venous doppler left arm, Upper extremity, Left, Test Reason: Injury to arm, Mon-Fri 8am-4:30pm: Call [phone] at 7:30am to schedule a same day appointment for testing. Please be aware there may be a short wait time. Post Acute Orders No qualifying data available. You Need to Schedule the Following Appointments Follow Up with Go to emergency room if symptoms worsen When Within 2-4 days Follow Up with DANILO ALVARADO MD When Within 2-4 days Where: [address] [place] [address]- Allergies No Known Medication Allergies Medications Please ask your primary doctor or pharmacist before taking any other medication not listed, including over the counter drugs, herbal medications, vitamins and or supplements as they may interact withyour home medications. What How Much When Instructions [...] sometimes felt in the hands, arms, legs orfeet. It can also occur in other parts [...] medicines you take. This includes prescription and jtfc-upf-gbfsvqs medicines, vitamins, and herbs. Ask if any [...] Open wound with redness, swelling, or pus [phone] [employer]. [address] [place] [address]. All rights reserved. This information is not intended as a substitute for professional medical care. Always follow yourhealthcare professional's instructions. Additional Information VACCINATE! IT SAVES LIVES! Members of the community who have not yet received the COVID-19 vaccine and would like to receive it can visit one of [facility] vaccine clinics. There are many vaccine clinic locations within the [facility]. For locations and available times, please visit www.gettheshot.coronavirus.[place].gov/. It is important to note that some COVID mobile vaccine clinics are held outdoors and may be canceled in rainy or stormy conditions. To learn more about pediatric vaccinations (ages 5-11), we invite you to visit the [facility] webpage. https://www.[facility].org/pages/2603-Enhns-Dxtyzesqyjx-Kgbmfvlgqw-Axgid-Xow stions.htmlTo learn more about the COVID-19 vaccine, we invite you to visit the CDC website for a list of frequently asked questions. https://www.cdc.gov/coronavirus/2019-ncov/vaccines/faq.html [facility] Access Instructions: Stay connected with your healthcare team and access your personal medical information anytime with the [facility] Patient Portal. If you would like a full copy of your medical records please contact the [facility] Medical Records Department Sunday through Sunday between 8a.m. and 4:30p.m. Please follow the directions below to access the portal: 1.Access the email account you provided upon registration to the [facility].2.Look for an invitation email from [facility].3.Open the email and access the invitation link: Accept Invitation to [email or web address].Fill in the required cosme to create your account. Sign into [email or web address] with your username and password that you [...] you will allow to register on the [facility] Patient Portal for access to your information. You can also access the [email or web address] Patient Portal on the Rewarding Return. Simply click on Health Records under [employer]Sw[employer] and then click on the [facility] logo. HOW TO SAFELY DISPOSE OF PRESCRIPTION MEDICATIONS Please use one of the following methods to safely dispose of your unused medications. 1.Use a drug disposal kit: the drug disposal pouch allows you to safely discard your old and unuseddrugs. Ask your nurse to give you one when you are discharged.2.Visit a local take-back location: Many local pharmacies and police departments have programs that collect old and unwanted prescriptiondrugs. Call your local pharmacy or go to http://Crystalplex.Knottykart/0U3Ao5c to find one close to you.3.Make use of household items: Use cat litter or old coffee grounds to dispose medications if other options arenot available. Mix your drugs with these household products, seal them in an airtight container andthrow it into the garbage. Call [facility]: [phone] to be sure your drugs can be [...] drowsiness, such as benzodiazepines, also known as benzos,including diazepam and alprazolam, muscle relaxants or sleep aids. Never sell or share prescriptionopioids. This is illegal. Store opioids in a secure place and out of reach of others (including children, family, friends and visitors). The last page(s) of this document has been signed and retained as a CHART COPY Signatures Patient Education Materials Paraesthesias Medication Leaflets My discharge plan and instructions have been reviewed and explained to me and I,DONTAE PARRA understand my current condition and have read and understand these discharge instructions. I have received awritten copy of the plan/instructions. If I have questions, I am aware that I should contact my doctor. Patient/Program Rep Signature: Date/Time: Relationship to Patient: Witness Name/Signature: Date/Time: [facility]06-27-2023 Procedure [facility]04-06-2023 Procedure [facility]12-14-2022 Hospital Discharge instructions Patient Education 02/01/2022 18:22:07 3- Heart [...] need to report the following to your fine craft artist: Any draining or oozing from the site [...] Document Reviewed: 02/06/2014 [employer]Care Patient Information 2015 [employer]. This information is not intended to replace advicegiven to you by your health care provider. Make sure you discuss any questions you have with your health care provider. 02/01/2022 18:21:32 Moderate Conscious Sedation, Adult, Care After Moderate Conscious Sedation, Adult, Care After These instructions provide you with information about caring for yourself after your procedure. Your health care provider may also give you more specific instructions. Your treatment has been plannedaccording to current medical practices, but problems sometimes [...] until you are awake and alert. Take pqtb-ctr-jcbogcx and prescription medicines only as told by [...] 11/26/2013 Document Revised: 01/18/2018 Document Reviewed: 05/27/2016 [employer] Patient Education 2020 [employer]. Follow Up Care 01/27/2022 13:32:16 With:ELDA HUNTER MD [address] [place] [address]- When:03/27/2022 15:30:00 Comments:THIS APPOINTMENT WILL BE WITH DR. TANISHA Hansen [facility] 12-14-2022 Summary of episode note Discharge Instructions Thank you for allowing [facility] to assist you with your healthcare needs. The following is importantdischarge information regarding your hospital visit. Your Care Team DANILO ALVARADO MD What to do next Scheduled Follow-Up Appointments Appointment Type When Where Contact InformationCV OV 03/27/2022 03:30 PM EST [facility] Follow Up Appointments Follow Up with ELDA HUNTER MD When 03/27/2022 03:30 PM EST Why: THIS APPOINTMENT WILL BE WITH DR. GARAY Where: [address] [facility] [place] [address]- The Following Activity and Diet Have Been Ordered for You Discharge Activity - Ordered -- Lifting Restricted less than 10 pounds, Follow the post-operative/post-procedure activity instructions provided by your physician's office., 02/01/22 17:07:00 EST Discharge Diet - Ordered -- Follow the post-operative/post-procedure diet instructions provided by your physician's office.,02/01/22 17:07:00 EST Allergies No Known Medication Allergies Medications Please ask your primary doctor or pharmacist before taking any other medication not listed, including over the counter drugs, herbal medications, vitamins and or supplements as they may interact withyour home medications. What How Much When Instructions Last Dose New clopidogrel (Plavix 75 mg oral tablet) 1 tab(s) by mouth Once a day Refills: 11 Pickup at [facility] Unchanged albuterol (albuterol Continuous Inhalation Soln) [...] by mouth Once a day Pharmacy Information [facility] [address]: [address] [place] [phone] Please take this list to your next [...] of bleeding, which can be severe or life- threatening. Call your doctor or seek emergency medical [...] Poison Help line at . Overdose can causeexcessive bleeding. What should I avoid while taking [...] of bleeding, which can be severe or life- threatening. Call your doctor or seek emergency medical [...] may report side effects to FDA at 1-615-AXF-1088. What other drugs will affect clopidogrel? Sometimes it is not safe to use certain medications at the same time. Some drugs can affect your blood levels of other drugs you take, which may increase side effects or make the medications less effective. Tell your doctor about all your other medicines, especially: a stomach acid commercial solar sales consultant such as omeprazole, Nexium, or Prilosec; an antidepressant such as citalopram, fluoxetine, sertraline, Cymbalta, Effexor, Lexapro, Pristiq, or Prozac; rifampin; a blood thinner--warfarin, Coumadin, Jantoven; or NSAIDs (nonsteroidal anti-inflammatory drugs)--aspirin, ibuprofen (Advil, Motrin), naproxen (Aleve), celecoxib, diclofenac, indomethacin, meloxicam, and others. This list is not complete. Other drugs may affect clopidogrel, including prescription and ylqk-kfx-euaubis medicines, vitamins, and herbal products. Not all [...] to ensure that the information provided by scroll kit. ('[employer]ator[employer]') is accurate, up-to-date, and complete, but no guarantee is made to that effect. Drug information contained herein may be time sensitive. The [employer] information has been compiled for use by healthcare practitioners and consumers in the [place] and therefore The [employer] does not warrant that uses outside of the [place] are appropriate, unless specifically indicated otherwise. [employer] drug information does not endorse drugs, diagnose patients or recommend therapy. [employer] drug information isan informational resource designed to assist licensed healthcare practitioners in caring for their p atients and/or to serve consumers viewing this service as a supplement to, and not a substitute for, the expertise, skill, knowledge and judgment of healthcare practitioners. The absence of a warningfor a given drug or drug combination in no way should be construed to indicate that the drug or drug combination is safe, effective or appropriate for any given patient. [employer] does not assume any responsibility for any aspect of healthcare administered with the aid of information The [employer] provides. The information contained herein is not intended to cover all possible uses, directions, precautions, warnings, drug interactions, allergic reactions, or adverse effects. If you have questions about the drugs you are taking, check with your doctor, nurse or pharmacist. Copyright 8023-6657 scroll kit. Version: 18.01. Revision Date: 05/19/2020. Education Materials [...] need to report the following to your fine craft artist: Any draining or oozing from the site [...] Document Reviewed: 02/06/2014 ExitCare Patient Information 2015 REQQI. This information is not intended to replace advicegiven to you by your health care provider. Make sure you discuss any questions you have with your health care provider. Moderate Conscious Sedation, Adult, Care After These instructions provide you with information about caring for yourself after your procedure. Your health care provider may also give you more specific instructions. Your treatment has been plannedaccording to current medical practices, but problems sometimes [...] until you are awake and alert. Take zvss-kvv-difsbzz and prescription medicines only as told by [...] 11/26/2013 Document Revised: 01/18/2018 Document Reviewed: 05/27/2016 Elsevier Patient Education 2020 [employer] Additional Information VACCINATE! IT SAVES LIVES! Members of the community who have not yet received the COVID-19 vaccine and would like to receive it can visit one of [facility] vaccine clinics. There are many vaccine clinic locations within the [facility]. For locations and available times, please visit [email or web address]/. It is important to note that some COVID mobile vaccine clinics are held outdoors and may be canceled in rainy or stormy conditions. To learn more about pediatric vaccinations (ages 5-11), we invite you to visit the [facility] webpage. [email or web address]/[email or web address]-Pjzfe-Knsmngbkbit-Ogldpjjssl-Euiuk-Dzr stions.htmlTo learn more about the COVID-19 vaccine, we invite you to visit the [employer] website for a list of frequently asked questions. [email or web address]-[email or web address]-Itnmxwn-Kvizubhoip _[email or web address]-Questions.pdf [email or web address] Patient Portal Access Instructions: Stay connected with your healthcare team and access your personal medical information anytime with the [email or web address] Patient Portal.If you would like a full copy of your medical records, please contact the [facility] Medical Records Department, Sunday through Sunday between 8a.m. and 4:30p.m. Please follow the directions below to access the portal: 1.Access the email account you provided upon registration to the [facility].2.Look for an invitation email from [facility].3.Open the email and access the invitation link: Accept Invitation to [email or web address].Fill in the required cosme to create your account. Sign into [email or web address] with your username and password that you [...] you will allow to register on the [email or web address] Patient Portal for access to your information. You can also access the [email or web address] Patient Portal on the [place] susie. Simply click on Health Records under HipSwap and then click on the [facility]ade logo. HOW TO SAFELY DISPOSE OF PRESCRIPTION MEDICATIONS Please use one of the following methods to safely dispose of your unused medications. 1.Use a drug disposal kit: the drug disposal pouch allows you to safely discard your old and unuseddrugs. Ask your nurse to give you one when you are discharged.2.Visit a local take-back location: Many local pharmacies and police departments have programs that collect old and unwanted prescriptiondrugs. Call your local pharmacy or go to http://Crystalplex.Knottykart/5A6Ac3v to find one close to you.3.Make use of household items: Use cat litter or old coffee grounds to dispose medications if other options arenot available. Mix your drugs with these household products, seal them in an airtight container andthrow it into the garbage. Call [facility]: [phone] to be sure your drugs can be [...] been reviewed and explained to me and IDELILAH SEAN understand my current condition and have read and understand these discharge instructions. I have received awritten copy of the plan/instructions. If I have questions, I am aware that I should contact my doctor. Patient/Program Rep Signature: Date/Time: Relationship to Patient: Witness Name/Signature: Date/Time: [id number] Evaluation + Plan noteExtracted from: Title:History and Physical Author:GUS BARNEY MD Date:02/01/22 #History of coronary artery disease #History of [...] Appointments Appointment Date:03/27/2022 03:30:00 PM Scheduled Provider: Location:[facility] Appointment Type:CV OV Future Scheduled Tests Laboratory* Lipid Profile 12/28/21 Radiology* NM Myocardial Spect Rest/Stress 12/28/21 [facility] 12-14-2022 History and physical note Date of Service 02/01/22 Chief Complaint CP History of Present Illness Patient is a 46 year old male with history of CAD, tobacco use coming in for follow up He was 24 years old, he states he had SD presenting as chest heaviness and had PCI (likely LAD stent)in [place]. He then had another NSTEMI described as burning sensation in 2015 and had PCI of ramus in September and presented with angina in Jan, same year and had PCI of proximal RCA His last cath was in 07/2016 in [facility] for chest pain. He had patent RCA [...] 3 weeks. He was seen by Dr. Frias in June for hemoptysis and for bronchoscopy. [...] He was last seen in ED in [place] last month for chest pain. EKG showed [...] Problem List/Past Medical History Ongoing CAD in [place] artery Hypertension Noncompliance with medications Historical No [...] NETTIE BARNEY MD on 02/01/2022 08:15 AM [facility] [id number] History and physical note Date of Service 02/01/22 Chief Complaint CP History of Present Illness Patient is a 46 year old male with history of CAD, tobacco use coming in for follow up He was 24 years old, he states he had SD presenting as chest heaviness and had PCI (likely LAD stent)in [place]. He then had another NSTEMI described as burning sensation in 2015 and had PCI of ramus in September and presented with angina in Jan, same year and had PCI of proximal RCA His last cath was in 07/2016 in [facility] for chest pain. He had patent RCA [...] 3 weeks. He was seen by Dr. Frias in June for hemoptysis and for bronchoscopy. [...] He was last seen in ED in [place] last month for chest pain. EKG showed [...] Problem List/Past Medical History Ongoing CAD in [place] artery Hypertension Noncompliance with medications Historical No [...] NETTIE BARNEY MD on 02/01/2022 08:15 AM [facility] [id number] Evaluation note* Diagnosis Onset Date Resolution Status Chest pain chronic Dyspnea on exertion chronic Essential hypertension chron ic Hyperlipidemia chronic Presence of stent in coronary artery January, chronic COPD (chronic obstructive pulmonary disease) chronic Nicotine dependence, cigarettes, uncomplicated chronic [facility] Work Phone: [phone]) 132-477711-09-2022 Evaluation + Plan note Future Scheduled Tests Laboratory* Lipid Profile 12/28/21 Radiology* NM Myocardial Spect Rest/Stress 12/28/21 [facility] 07-14-2022 Miscellaneous Notes* Telephone Encounter - Nadine Craig - 09/01/2021 4:35 PM EDT Patient notified * Telephone Encounter - Sabra Chapman MA - 09/01/2021 4:23 PM EDT Attempted to call patient but there was no answer. Left a message on [employer] Mediam[employer] requesting a return call. Sabra Chapman MA * Telephone Encounter - Yony Frias DO - 09/01/2021 2:20 PM EDT I d/w ambulatory surgery. They will accept a pharmacy reported covid test result 3 days prior * Telephone Encounter - Sabra Chapman MA - 09/01/2021 2:15 PM EDT Patient is still not agreeable. He states that he is not able to get the Covid test 3 days beforehand at all because he works and his only days off are Sunday and wednesdays. He would like to know if there is anything else testing reese he can do. Sabra Chapman MA * Telephone Encounter - Yony Frias DO - 09/01/2021 10:06 AM EDT Can reschedule, but will be ~2-3 weeks * Telephone Encounter - Sabra Chapman MA - 09/01/2021 9:58 AM EDT Patient states that he will be out of town for the Covid test. He will be in [place]. Is there anything else he can do or should he be rescheduled? Please advise, thanks. Sabra Chapman MA * Telephone Encounter - Sabra Chapman MA - 09/01/2021 9:39 AM EDT Patient scheduled for Bronch on 09/06/2021 at 7:30 am. He has his Covid test on 09/03/2021 at 8:20 am at [facility] lab. Faxed orders. Left message for patient to call back. Can I get this Covid order signed? Thanks. Sabra Chapman MA documented [facility] Miscellaneous Notes* [facility] 09/01/2021 3:36 PM EDT Smoking Cessation Navigation Outcome of contact: Left Message Comments: A voicemail has been left for this patient regarding Tobacco Cessation support options. If this patient has any further questions they can email us at or call us at [phone]. DEQealth Curriculum Director/Smoking Cessation Navigator: [facility] Electronically signed by [facility] at 09/01/2021 3:37 PM EDT documented in this encounterMari[facility]07-13-2022 NoteHNO ID: [id number] Author: Yony Frias DO Service: ? Author Type: Physician Type: Progress Notes Filed: 08/31/2021 12:51 PM Note Text: [facility] Department of Pulmonary AND Sleep Medicine Yony Frias DO Pulmonary Consult Note - Smoker SERVICE DATE: 08/31/2021 SERVICE TIME: 12:00 PM REASON FOR CONSULT: Hemoptysis. HISTORY OF PRESENT ILLNESS: Dontae Parra is a 46 year old male, with [...] pain, pleurisy, wasting syndrome or weight loss. Sabra Kunz MA, transcribing for Yony Frias DO. HISTORY PAST MEDICAL HISTORY Diagnosis Date - Anxiety state - Asthma - Benign essential hypertension - CAD (coronary artery disease) - Chest pain - COPD (chronic obstructive pulmonary disease) ([facility]) - Coronary arteriosclerosis NON -CRITICAL DISEASE - Depression - Dyspnea - Erectile dysfunction c/o - GERD (gastroesophageal reflux disease) - Heart attack ([facility]) - Hyperlipidemia - Neuropathy - Pneumonia, viral - Restless legs - Stroke (cerebrum) ([facility]) PAST SURGICAL HISTORY Procedure Laterality Date - [...] Negative. Musculoskeletal: Negative. Sk (more content not included)...[facility]07-13-2022 Instructions* Patient Instructions* Sabra Chapman MA - 08/31/2021 12:39 PM EDT Please hold you aspirin starting today (August 31, 2021). Will call with date and time of Lung scope (Bronchoscopy), will make follow up at this time. documented in this encounterMari[facility]07-13-2022 History of Present illness Narrative* Yony Frias DO - 08/31/2021 12:00 PM EDT [facility] Department of Pulmonary & Sleep Medicine Yony Frias DO Pulmonary Consult Note - Smoker SERVICE DATE: 08/31/2021 SERVICE TIME: 12:00 PM REASON FOR CONSULT: Hemoptysis. HISTORY OF PRESENT ILLNESS: Dontae Parra is a 46 year old male, with [...] pleurisy, wasting syndrome or weight loss. I, Sabra Chapman MA, transcribing for Yony Frias DO. HISTORY PAST MEDICAL HISTORY Diagnosis Date [...] ICD10: R06.02 5. Coronary artery disease involving [place] coronary artery of [place] heart without angina pectoris- ICD9: 414.01, ICD10: I25.10 6. History of 2019 novel coronavirus disease (COVID-19) - ICD9: V12.09, ICD10: Z86.16 Yony Frias (Electronically signed expedite mailing) FOLLOW UP: Return [...] will pursue the recommended treatment. I, Yony Frias, have reviewed and agree with the information in the medical record transcribed by Sabra Chapman MA. Yony Frias DO documented in this encounterM[facility] ClinicD[facility] summary Author Jose R Schmitz [facility] January 24, 2023 3:53am Note Date/Time January 24, 2023 2 :43am [facility] Medical Records Department [address] [address] Emergency Department Summary 01/24/23 MR#: [id number] Acct: [id number] Name: DONTAE PARRA Rep #:[id number] : 1975 47 From: Jose R Schmitz DO PCP: DANILO ALVARADO Status:REG ER Location: ED HPI History of Present Illness Chief Complaint: Chest Pain Informant: patient Narrative Narrative: Patient is a 47-year-old male with past medical history of hypertension hyperlipidemia and coronary artery disease status post stent placement. He reports that he has been having chest pain/discomfort for the past 3 weeks that seems to be worse at night when he tries to lay down and sleep. He had a heart cath in September of this year which showed clean coronaries and patent stents. Hewas evaluated by cardiology 2 days ago and had outpatient chest x-ray and basic blood work obtained which revealed no acute findings. 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) Essential hypertension Family history of ischemic heart disease and other diseases of the circulatory system GERD (gastroesophageal reflux disease) Hemoptysis Hyperlipidemia Mild sleep apnea Nicotine addiction Nicotine dependence Nicotine dependence, cigarettes, uncomplicated Noncompliance with medications Old myocardial infarction Pneumonia Presence of stent in coronary artery (~02/01/22) Primary snoring Stroke Unspecified systolic (congestive) heart failure Home Medications albuterol sulfate 2.5 mg/3 mL (0.083 %) solution for nebulization 2.5 mg inhalation Q4H PRN shortness of breath or wheezing 05/22/22 [History Last Taken Unknown] albuterol sulfate 90 mcg/actuation aerosol inhaler 2 puff inhalation Q4H PRN shortness of breath or wheezing 05/22/22 [History Last Taken Unknown] aspirin 81 mg tablet,delayed release 81 mg PO DAILY 05/22/22 [History Last Taken Unknown] clopidogrel 75 mg tablet 75 mg PO DAILY 05/22/22 [History Last Taken Unknown] magnesium oxide 250 mg PO DAILY 05/22/22 [History Last Taken Unknown] omeprazole 40 mg capsule,delayed release 40 mg PO DAILY 05/22/22 [History Last Taken Unknown] rosuvastatin 10 mg tablet 10 mg PO DAILY 05/22/22 [History Last Taken Unknown] carvedilol phosphate 20 mg capsule,ext.bjvvkit08gm multiphase 20 mg PO DAILY 06/15/22 [History Last Taken Unknown] hydrochlorothiazide 25 mg tablet 25 mg PO DAILY #30 tabs 06/20/22 [Rx Last Taken Unknown] potassium chloride 20 mEq tablet,extended release 20 meq PO DAILY #30 tabs 07/18/22 [Rx Last Taken Unknown] bupropion HCl 150 mg 24 hr tablet, extended release 150 mg PO QAM 09/13/22 [History Last Taken Unknown] montelukast 10 mg tablet 10 mg PO QPM #90 tabs 01/08/23 [Rx Last Taken Unknown] budesonide-formoterol HFA 160 mcg-4.5 mcg/actuation aerosol inhaler (Symbicort) 2 puff inhalation BID #1 ea 01/22/23 [Rx Last Taken Unknown] tiotropium bromide 2.5 mcg/actuation mist for inhalation (Spiriva Respimat) 2 inh inhalation QDAY #1 ea 01/22/23 [Rx Last Taken Unknown] isosorbide mononitrate 30 mg tablet,extended release 24 hr 30 mg PO DAILY #30 tabs 01/23/23 [Rx Last Taken Unknown] budesonide 0.5 mg/2 mL suspension for nebulization 0.5 mg inhalation 01/24/23 [History Last Taken Unknown] potassium chloride 20 mEq tablet,extended release(part/cryst) 20 meq PO DAILY 01/24/23 [History Last Taken Unknown] Allergy/AdvReac Type Severity Reaction Status Date / Time amlodipine AdvReac Intermediate Severe Verified 01/24/23 02:03 headache Family History Mother Cancer Ovarian Grandmother Cancer breast cancer. Heart disease Myocardial infarction Grandfather Cancer Lung Fibromyalgia Father Cancer Surgical History H/O arthroscopic knee surgery H/O hand surgery H/O inguinal hernia repair History of left heart catheterization (LHC) (~09/25/22) Presence of coronary angioplasty implant and graft (~02/01/22) Social History Smoking Status: Current every day smoker tobacco type: cigarettes alcohol intake: never substance use type: does not use caffeine: Yes (8-12 servings per day) ROS ROS ED Constitutional Constitutional ED: Denies chills or fever(s) ENT ENT ED: Denies sore throat Cardiovascular Cardiovascular: Reports chest pain; Denies palpitations or racing heartbeat Respiratory/Chest Respiratory/Chest: Denies cough or dyspnea Gastrointestinal Gastrointestinal: Denies abdominal pain, diarrhea, nausea or vomiting Genitourinary Genitourinary ED: Denies dysuria Musculoskeletal Musculoskeletal: Denies myalgias Integumentary Denies rash Neurologic Neurologic: Denies headache(s) Hematologic/Lymphatic Hematologic/Lymphatic: Reports easy bleeding and easy bruising EXAM Physical Exam Const Vital Signs: 01/24/23 01:58 01/24/23 02:02 01/24/23 02:35 Temperature 96.8 F L Temperature Source Temporal Pulse Rate 79 65 Respiratory Rate 24 H 12 Respiratory Effort Normal Non-Labored Blood Pressure 128/67 H 128/79 H Blood Pressure Mean 87 95 Pulse Ox 99 96 Oxygen Delivery Method Room Air Room Air 01/24/23 03:34 Temperature Temperature Source Pulse Rate 76 Respiratory Rate 16 Respiratory Effort Blood Pressure 121/67 H Blood Pressure Mean 85 Pulse Ox 95 Oxygen Delivery Method Room Air Positive well nourished and well developed General Appearance ED: well developed; Negative for pallor HEENT HEENT Narrative: Normocephalic atraumatic Eyes PERRL and EOMs intact bilaterally General Eye ED: Negative for scleral icterus Neck supple and no JVD Neck Narrative: No nuchal rigidity or meningeal signs noted Chest Wall palpation of chest normal Chest Narrative: No bony deformity or crepitance palpated Resp normal respiratory effort Resp Narrative: Breath sounds are diminished throughout with faint expiratory wheeze in the bilateral lower lobes but no nasal flaring retractions tachypnea or accessory muscle use Cardio regular rate and regular rhythm Rate: other Other Details: Heart is regular rate and rhythm without murmurs rubsor gallops Radial and carotid pulses are equal and symmetric GI normal to inspection, nondistended, normoactive bowel sounds, non-tender, non-distended and no masses GI Narrative: No voluntary guarding or rigidity No pulsatile mass or fluid wave Auscultation: normoactive bowel sounds Palpation: soft Back/Spine Back/Spine Narrative: No overlying soft tissue changes to the back or chest wall to suggest infection or trauma Extremity normal to inspection Extremity Narrative: No asymmetric edema no pitting edema negative Homans' sign bilaterally Neuro oriented x3, CN's II-XII intact bilaterally and no sensory deficits noted Sensorium / Orientation: alert Motor Exam: strength 5/5 throughout Psych Psych Narrative: Patient has a nervous/anxious affect Skin no rashes or lesions noted General Skin Exam: Negative for jaundice or pallor MDM MDM MDM Narrative Medical decision making narrative: Patient presented to the ER with stable vitals and reported 3 weeks of persistent chest discomfort. He was recently seen by cardiology and had outpatient labs and a chest x-ray which were reviewed and showed no acute findings. He also had a heart cath in September of this year which was reviewed and showed no signs of significant occlusion. Differential diagnosis for his persistent symptoms are acute coronary syndrome versus pulmonary embolus versus pneumonia versus pneumothorax or pneumomediastinum versus potential abdominal pathology such as biliary colic or acute pancreatitis. Basic blood work was obtained as well as a CTA of the chest as the patient had a recent normal chest x-ray. Lab work showed no clinically significant findings with a troponin of 4 which was similar nature to the 1 obtained 2 days ago at 7 indicating no signs of acute coronary syndrome. CTA also showed no signs of dissection pericardial effusion or pulmonary embolus. At this time the patient's vitals are stable hisworkup regarding acute coronary syndrome is negative and CTA does not show any type of thoracic pathology such as PE dissection pneumonia pneumothorax or pneumomediastinum. Therefore at this time as his workup is negative and his vitalsare stable there is no need for admission to the hospital and he can have this worked up further on an outpatient basis History & Record Review Discussion w/independent historian: Patient Lab Data Attestation: I reviewed the patient's lab results. Labs: Laboratory Results - last 24 hr 01/24/23 02:11 WBC 11.0 RBC 4.83 Hgb 14.9 Hct 43.7 MCV 90.5 MCH 30.8 MCHC 34.1 RDW Std Deviation 42.6 RDW Coeff of Zuly 13.0 Plt Count 274 MPV 9.4 Immature Gran % (Auto) 0.500 Neut % (Auto) 66.4 Lymph % (Auto) 23.9 Holmes % (Auto) 6.8 Eos % (Auto) 2.0 Baso % (Auto) 0.4 Absolute Neuts (auto) 7.3 Absolute Lymphs (auto) 2.62 Nucleated RBC % 0 Differential Comment SCANNED Platelet Estimate ADEQUATE PT 12.0 INR 0.9 APTT 24.4 Sodium 138 Potassium 4.1 Chloride 105 Carbon Dioxide 25.0 Anion Gap 8 BUN 18 Creatinine 1.16 Estim Creat Clear Calc 85.48 Est GFR (MDRD) Af Amer 86 Est GFR (MDRD) Non-Af 71 BUN/Creatinine Ratio 15.5 Glucose 119 H Calcium 9.0 Total Bilirubin 0.50 Direct Bilirubin 0.07 AST 22 ALT 21 Alkaline Phosphatase 96 Troponin I High Sens 4 Total Protein 7.6 Albumin 3.6 Globulin 4.0 Lipase 38 Radiography Diagnostic Testing: Clinical Impression(s) from Imaging Studies Chest CTA 01/24/23 02:20 IMPRESSION: 1. No pulmonary embolus identified. 2. Atherosclerotic disease and pulmonary emphysema. Electronically Signed: Malcom Corrales MD at 3:30 EST , Discharge Plan Triage Chief Complaint: Chest Pain ED Provider: Jose R Schmitz Dx/Rx/DC Orders Clinical Impression: Nonspecific chest pain, COPD (chronic obstructive pulmonary disease), CAD (coronary artery disease), Essential hypertension Instructions: COPD: Wheezing and Chest Tightness Prescriptions: No Action omeprazole 40 mg capsule,delayed release(DR/EC) 40 mg PO DAILY clopidogrel 75 mg tablet 75 mg PO DAILY rosuvastatin 10 mg tablet 10 mg PO DAILY albuterol sulfate 90 mcg/actuation HFA aerosol inhaler 2 puff inhalation Q4H PRN (Reason: shortness of breath or wheezing) albuterol sulfate 2.5 mg /3 mL (0.083 %) solution for nebulization 2.5 mg inhalation Q4H PRN (Reason: shortness of breath or wheezing) magnesium oxide 250 mg magnesium tablet 250 mg PO DAILY aspirin 81 mg tablet,delayed release (DR/EC) 81 mg PO DAILY carvedilol phosphate 20 mg capsule, ER multiphase 24 hr 20 mg PO DAILY Rx Instructions: must administer with a meal/food bupropion HCl 150 mg tablet extended release 24 hr 150 mg PO QAM montelukast 10 mg tablet 10 mg PO QPM Qty: 90 3RF budesonide 0.5 mg/2 mL suspension for nebulization 0.5 mg inhalation potassium chloride 20 mEq tablet,ER particles/crystals 20 meq PO DAILY hydrochlorothiazide 25 mg tablet 25 mg PO DAILY Qty: 30 11RF potassium chloride 20 mEq tablet extended release 20 meq PO DAILY Qty: 30 12RF budesonide-formoterol [Symbicort] 160-4.5 mcg/actuation HFA aerosol inhaler 2 puff inhalation BID Qty: 1 3RF Rx Instructions: administer with spacer, rinse mouth after each use Spiriva Respimat 2.5 mcg/actuation mist 2 inh inhalation QDAY Qty: 1 6RF Rx Instructions: administer at approximately the same time(s) each day isosorbide mononitrate 30 mg tablet extended release 24 hr 30 mg PO DAILY Qty: 30 11RF Primary Care Provider: DANILO ALVARADO Referrals: DANILO ALVARADO [Other] Activity Restrictions/Additional Instructions: Your workup today showed no sign of heart damage and no sign of blood clot. It did document lung changes consistent with COPD but no pneumonia or hole in your lung. Continue all of your medication as directed by your doctor and return to the ER should you have any further concerns Disposition Disposition: Home, Self Care What to do if you have Problems For any increased pain, shortness of breath, bleeding, nausea or vomiting, chest pain, or any unexpected problems, contact your Primary Care Provider. Call [facility] ([phone]) or report to the closest Emergency Room. Call 911 if necessary. 01/24/23 0353 <Electronically signed by Jose R Schmitz DO> Cosigner Signature (if applicable): CC: DANILO CHRISTIANO ~ Signed [facility] Work Phone: Evaluation + Plan note Future Appointments Appointment Date:03/19/2024 07:00:00 AM Scheduled Provider:JEANNIE HERNANDEZ APRNGenVaultVAUGHN Location:[facility] Appointment Type:PC OV Future Scheduled Tests Laboratory* Lipid Profile 03/14/24 * Lipid Profile 09/20/23 * Albumin/Creatinine Ratio, Random Urine 09/12/23 * Complete Metabolic Panel 03/14/24 * Complete Metabolic Panel 09/20/23 [facility] Evaluation + Plan note Future Appointments Appointment Date:09/17/2024 09:00:00 AM Scheduled Provider:JEANNIE HERNANDEZ [employer]AU[facility]N Location:[facility] Appointment Type:PC OV Future Scheduled Tests Laboratory* Magnesium Level 09/16/24 * Testosterone Level Total 09/16/24 * Lipid Profile 03/14/24 * Lipid Profile 09/20/23 * Lipid Profile 09/16/24 * Albumin/Creatinine Ratio, Random Urine 09/12/23 * Albumin/Creatinine Ratio, Random Urine 09/16/24 * Complete Metabolic Panel 03/14/24 * Complete Metabolic Panel 09/20/23 * Complete Metabolic Panel 09/16/24 [facility] Evaluation + Plan note Future Appointments Appointment Date:09/17/2024 09:00:00 AM Scheduled Provider:JEANNIE HERNANDEZ [employer] Location:[facility] Appointment Type:PC OV Future Scheduled Tests Laboratory* Magnesium Level 09/16/24 * Testosterone Level Total 09/16/24 * Complete Blood Count 12/18/24 * Lipid Profile 03/14/24 * Lipid Profile 09/20/23 * Lipid Profile 09/16/24 * Albumin/Creatinine Ratio, Random Urine 09/12/23 * Albumin/Creatinine Ratio, Random Urine 09/16/24 * Complete Metabolic Panel 03/14/24 * Complete Metabolic Panel 09/20/23 * Complete Metabolic Panel 09/16/24 [facility] Evaluation + Plan note Future Appointments Appointment Date:09/17/2024 09:00:00 AM Scheduled Provider:JEANNIE HERNANDEZ Location:[facility] Appointment Type:PC OV Future Scheduled Tests Laboratory* Throat Culture 07/28/24 * Magnesium Level 09/16/24 * Testosterone Level Total 09/16/24 * Lipid Profile 03/14/24 * Lipid Profile 09/20/23 * Lipid Profile 09/16/24 * Albumin/Creatinine Ratio, Random Urine 09/12/23 * Albumin/Creatinine Ratio, Random Urine 09/16/24 * Complete Metabolic Panel 03/14/24 * Complete Metabolic Panel 09/20/23 * Complete Metabolic Panel 09/16/24 * COVID/FLU/RSV PCR Screen 07/28/24 [facility] Evaluation note* Diagnosis Hemoptysis- Primary Hemoptysis, unspecified Tobacco use current Chronic obstructive pulmonary disease, unspecified COPD type (HCC) SOB (shortness of breath) on exertion Shortness of breath Coronary artery disease involving [place] coronary artery of [place] heart without angina pectoris History of 2019 novel coronavirus disease (COVID-19) [facility] Diagnosis Onset Date Resolution Status Hemoptysis acute Nicotine addiction acute Primary snoring acute Atherosclerosis of coronary artery of [place] heart without angina pectoris chronic COPD (chronic obstructive pulmonary disease) chronic Hemoptysis acute Nicotine addiction acute Primary snoring acute COPD (chronic obstructive pulmonary disease) [facility] Work Phone: Evaluation note* Diagnosis Onset Date Resolution Status Hemoptysis acute Nicotine addiction acute Primary snoring acute Atherosclerosis of coronary artery of [place] heart without angina pectoris chronic COPD (chronic obstructive pulmonary disease) chronic Hemoptysis acute Nicotine addiction acute Primary snoring acute COPD (chronic obstructive pulmonary disease) chronic Anxiety chronic CAD (coronary artery disease) chronic COPD (chronic obstructive pulmonary disease) chronic Essential hypertension chron ic Hyperlipidemia chronic Nicotine dependence chronic Presence of stent in coronary artery January, [facility] Work Phone: Evaluation note* Diagnosis Onset Date Resolution Status Primary snoring acute Atherosclerosis of coronary artery of [place] heart without angina pectoris chronic COPD (chronic obstructive pulmonary disease) chronic Hemoptysis chronic Nicotine addiction chronic Primary snoring acute COPD (chronic obstructive pulmonary disease) chronic Hemoptysis chronic Nicotine addiction chronic Anxiety chronic CAD (coronary artery disease) chronic COPD (chronic obstructive pulmonary disease) chronic Essential hypertension chron ic Hyperlipidemia chronic Nicotine dependence chronic Presence of stent in coronary artery January, chronic Mild sleep apnea acute Chronic cough chronic Hemoptysis chronic Nicotine addiction [facility] Work Phone: Evaluation note* Diagnosis Onset Date Resolution Status Chronic cough chronic Left arm pain acute Anxiety chronic CAD (coronary artery disease) chronic COPD (chronic obstructive pulmonary disease) chronic Essential hypertension chron ic Hyperlipidemia chronic Nicotine dependence chronic Presence of stent in coronary artery January, chronic Chronic cough chronic COPD (chronic obstructive pulmonary disease) chronic Chest pain acute Dyspnea on exertion acute Essential hypertension chron ic Hyperlipidemia chronic Presence of stent in coronary artery January, [facility] Work Phone: Evaluation note* Diagnosis Onset Date Resolution Status Chronic cough chronic COPD (chronic obstructive pulmonary disease) chronic Chest pain chronic Dyspnea on exertion chronic Essential hypertension chron ic Hyperlipidemia chronic Presence of stent in coronary artery January, chronic Chest pain chronic Dyspnea on exertion chronic Essential hypertension chron ic Hyperlipidemia chronic Presence of stent in coronary artery January, chronic COPD (chronic obstructive pulmonary disease) chronic Nicotine dependence, cigarettes, uncomplicated chronic [facility] Work Phone: Evaluation note* Diagnosis Fall, initial encounter- Primary Fall, initial encounter Concussion Unspecified concussion Back pain Unspecified backache [facility] Narrative No data available for this section [facility] Hospital Discharge instructions Additional Instructions Your workup today showed no sign of heart damage and no sign of blood clot. It did document lung changes consistent with COPD but no pneumonia or hole in your lung. Continue all of your medication as directed by your doctor and return to the ER should [facility] have any [facility] Hospital Discharge instructions No data available for this section [facility] Note* SYSTEM: SIGN SYSTEM: SIGN, MODIFY SYSTEM: MODIFY, SIGN SYSTEM: SIGN, MODIFY SYSTEM: MODIFY, VERIFY Event Display: Cardiac Catheterization -CV Authored Date: [id number] [facility] Progress note No data available for this section [facility] Reason for referral (narrative)* Outpatient Procedure (Routine) - Pending Review Specialty Diagnoses / Procedures Referred By Contac t Referred To Contact [facility] Diagnoses SOB (shortness of breath) on exertion Procedures SPIROMETRY BASELINE ONLY SPMTRY W/VC EXPIRATORY ZACKARY W/WO MXML VOL VNTJ Yony Frias, [place] [address] [facility] [place] [address] [place], [place] [id number] Referral ID Status Reason Start Date Expiration Date Visits Requested Visits Authorized [id number] Pending Review Auto-Generat ed Referral 08/31/2021 09/30/2022 1 1 * Outpatient Procedure (Routine) - Pending Review Specialty Diagnoses / Procedures Referred By Contac t Referred To Contact [facility] Diagnoses Hemoptysis Procedures [facility]OSCOPY [facility] INCL FLUOR GDNCE DX W/CELL WASHG SPX Yony Frias, [place] [address] [facility] [place] [address] [place] [address] Referral ID Status Reason Start Date Expiration Date Visits Requested Visits Authorized [id number] Pending Review Auto-Generat ed Referral 08/31/2021 09/30/2022 1 1 [facility] Summary Purpose Family History No Family History Records Found Relationship Condition Age at Onset Recorded Date/T milind mother Malignant neoplasm Unknown grandmother Malignant neoplasm Unknown Cardiac disease Unknown Myocardial infarction Unknown grandfather Malignant neoplasm Unknown Fibromyalgia Unknown father Malignant neoplasm Unknown Advance Directives No Advanced Directives Records Found Advance Directive Response Recorded Date/ Time Living Will No July 10, 2022 1 1:29am Power of Loan Review Analyst No July 10, 2022 11:29am Advance Directive Response Recorded Date/ Time Advance Directives No September 25, 2 023 6:35am Living Will No January 24 2:02am Power of Loan Review Analyst No January 24, 2023 2:02am Advance Directive Response Recorded Date/ Time Advance Directives No September 25, 2 023 7:35am Living Will No January 24 3:02am Power of Loan Review Analyst No January 24, 2023 3:02am Documents on File Type Date Recorded Patient Program Rep Expl anation Code Documentation 10/19/2015 Date Activated Date Inactivated Comments 12/01/2023 9:01 AM 12/01/2023 4:57 PM Chief Complaint and Reason for Visit Chief Complaint COPD Amb Documentation COPD COPD 1 W FU Reason for Visit Hemoptysis Nicotine addiction Primary snoring Atherosclerosis of coronary artery of [place] heart without angina pectoris COPD (chronic obstructive pulmonary disease) Hemoptysis Nicotine addiction Primary snoring COPD (chronic obstructive pulmonary disease) Chief Complaint COPD Amb Documentation COPD COPD 1 W FU Hypersomnia, unspecified SD,STENTS (SELF REF) Reason for Visit Hemoptysis Nicotine addiction Primary snoring Atherosclerosis of coronary artery of [place] heart without angina pectoris COPD (chronic obstructive pulmonary disease) Hemoptysis Nicotine addiction Primary snoring COPD (chronic obstructive pulmonary disease) Anxiety CAD (coronary artery disease) COPD (chronic obstructive pulmonary disease) Essential hypertension Hyperlipidemia Nicotine dependence Presence of stent in coronary artery Chief Complaint COPD Amb Documentation COPD COPD 1 W FU Hypersomnia, unspecified SD,STENTS (SELF REF) COPD COPD/HEMOPTYSIS Reason for Visit Hemoptysis Nicotine addiction Primary snoring Atherosclerosis of coronary artery of [place] heart without angina pectoris COPD (chronic obstructive pulmonary disease) Hemoptysis Nicotine addiction Primary snoring COPD (chronic obstructive pulmonary disease) Anxiety CAD (coronary artery disease) COPD (chronic obstructive pulmonary disease) Essential hypertension Hyperlipidemia Nicotine dependence Presence of stent in coronary artery Chief Complaint COPD Amb Documentation COPD COPD 1 W FU Hypersomnia, unspecified SD,STENTS (SELF REF) COPD COPD/HEMOPTYSIS nv DHARMESH; AUTO CPAP *DEVICE TAGGED INT LABS HEART DISEASE HEART DISEASE Reason for Visit Hemoptysis Nicotine addiction Primary snoring Atherosclerosis of coronary artery of [place] heart without angina pectoris COPD (chronic obstructive pulmonary disease) Hemoptysis Nicotine addiction Primary snoring COPD (chronic obstructive pulmonary disease) Anxiety CAD (coronary artery disease) COPD (chronic obstructive pulmonary disease) Essential hypertension Hyperlipidemia Nicotine dependence Presence of stent in coronary artery Chief Complaint COPD Amb Documentation COPD COPD 1 W FU Hypersomnia, unspecified SD,STENTS (SELF REF) COPD COPD/HEMOPTYSIS nv DHARMESH; AUTO CPAP *DEVICE TAGGED INT LABS HEART DISEASE HEART DISEASE COPD COPD Reason for Visit Hemoptysis Nicotine addiction Primary snoring Atherosclerosis of coronary artery of [place] heart without angina pectoris COPD (chronic obstructive pulmonary disease) Hemoptysis Nicotine addiction Primary snoring COPD (chronic obstructive pulmonary disease) Anxiety CAD (coronary artery disease) COPD (chronic obstructive pulmonary disease) Essential hypertension Hyperlipidemia Nicotine dependence Presence of stent in coronary artery Chief Complaint COPD Amb Documentation COPD COPD 1 W FU Hypersomnia, unspecified SD,STENTS (SELF REF) COPD COPD/HEMOPTYSIS nv DHARMESH; AUTO CPAP *DEVICE TAGGED INT LABS HEART DISEASE HEART DISEASE COPD COPD 3 M FU Reason for Visit Primary snoring Atherosclerosis of coronary artery of [place] heart without angina pectoris COPD (chronic obstructive pulmonary disease) Hemoptysis Nicotine addiction Primary snoring COPD (chronic obstructive pulmonary disease) Hemoptysis Nicotine addiction Anxiety CAD (coronary artery disease) COPD (chronic obstructive pulmonary disease) Essential hypertension Hyperlipidemia Nicotine dependence Presence of stent in coronary artery Mild sleep apnea Chronic cough Hemoptysis Nicotine addiction Chief Complaint Follow up after Pred nisone 6 wk FU Pain in left arm 2 M FU Chest tightness, HTN L.Maurilio MELENDEZ cp Reason for Visit Chronic cough Left arm pain Anxiety CAD (coronary artery disease) COPD (chronic obstructive pulmonary disease) Essential hypertension Hyperlipidemia Nicotine dependence Presence of stent in coronary artery Chronic cough COPD (chronic obstructive pulmonary disease) Chest pain Dyspnea on exertion Essential hypertension Hyperlipidemia Presence of stent in coronary artery Chief Complaint 2 M FU Chest tightness, HTN L.Maurilio MELENDEZ cp 4 wk fu per [facility] 2 M FU CHRONIC OBSTRUCTIVE PULMONARY DISEASE CHRONIC OBSTRUCTIVE PULMONARY DISEASE Reason for Visit Chronic cough COPD (chronic obstructive pulmonary disease) Chest pain Dyspnea on exertion Essential hypertension Hyperlipidemia Presence of stent in coronary artery Chest pain Dyspnea on exertion Essential hypertension Hyperlipidemia Presence of stent in coronary artery COPD (chronic obstructive pulmonary disease) Nicotine dependence, cigarettes, uncomplicated Chief Complaint 4 wk fu per [facility] 2 M FU CHRONIC OBSTRUCTIVE PULMONARY DISEASE CHRONIC OBSTRUCTIVE PULMONARY DISEASE R/L LEG PAIN Reason for Visit Chest pain Dyspnea on exertion Essential hypertension Hyperlipidemia Presence of stent in coronary artery COPD (chronic obstructive pulmonary disease) Nicotine dependence, cigarettes, uncomplicated Additional Source Comments (unrecognized sect ion and content) No Status Records FoundNo Status Records FoundNo Status Records FoundNo Status Records FoundNo Status Records FoundNo Status Records FoundNo Status Records FoundNo Status Records FoundNo Status Records FoundNo Status Records Found INFORMATION SOURCE (unrecogn ized section and content) DATE CREATED AUTHOR 08/14/2017 [facility] DATE CREATED AUTHOR AUTHOR'S ORGANIZ ATION 08/15/2017 [facility] DATE CREATED AUTHOR AUTHOR'S ORGANIZ ATION 05/13/2021 [facility] DATE CREATED AUTHOR AUTHOR'S ORGANIZ ATION 09/07/2021 [facility] DATE CREATED AUTHOR AUTHOR'S ORGANIZ ATION 03/26/2022 [facility] DATE CREATED AUTHOR AUTHOR'S ORGANIZ ATION 10/18/2022 [facility] ([place] DATE CREATED AUTHOR AUTHOR'S ORGANIZ ATION 12/09/2023 [facility] DATE CREATED AUTHOR AUTHOR'S ORGANIZ ATION 01/13/2024 [facility] DATE CREATED AUTHOR AUTHOR'S ORGANIZ ATION 08/04/2024 [facility] DATE CREATED AUTHOR AUTHOR'S ORGANIZ ATION 09/01/2024 [facility] Source Comments (unrecognize d section and content) In the event this informatio n is protected by the Federal Confidentiality of Alcohol and Drug Abuse Patient Records regulations: The Federal rules restrict any use of the information to criminally investigate or prosecute any alcohol or drug abuse patient.[facility] the event this information is protected by the Federal Confidentiality of Alcohol and Drug Abuse Patient Records regulations: The Federal rules restrict any use of the information to criminally investigate or prosecute any alcohol or drug abuse patient.[facility] the event this information is protected by the Federal Confidentiality of Alcohol and Drug Abuse Patient Records regulations: The Federal rules restrict any use of the information to criminally investigate or prosecute any alcohol or drug abuse patient.[facility] the event this information is protected by the Federal Confidentiality of Alcohol and Drug Abuse Patient Records regulations: The Federal rules restrict any use of the information to criminally investigate or prosecute any alcohol or drug abuse patient.[facility] Reason for Visit (unrecogniz ed section and content) Reason Comments New Patient Reason Comments Smoking Cessation Reason Comments Procedure Reason Comments Abdominal Injury Transfer from [facility] for trauma consult. Fall from tree stand 15-17 feet. 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 Julio Cesar Alaniz MD [address] [address] [address] [place] [address] Referral ID Status Reason Start Date Expiration Date Visits Re quested Visits Authorized [id number] 1 1 Care Teams (unrecognized sec tion and content) Team Status: Active Member Role Status Dates DANILO ALVARADO Primary Care Provider Active Team Status: Inactive Member Role Status Dates Dr. Jonh Boyd MD Attending Provider Active Team Status: Inactive Member Role Status Dates Dr. Bria Olsen MD Attending Provider Active Dr. Mark Alvarado MD Primary Care Provider, Referring Provider Active Team Status: Inactive Member Role Status Dates Dr. Jonh Boyd MD Attending Provider Active Dr. Mark Alvarado MD Primary Care Provider, Referring Provider Active Team Status: Active Member Role Status Dates Justine Vaz Attending Provider Active Team Status: Active Member Role Status Dates Dr. Jonh Boyd MD Referring Provider, Other Pro vider Active Dr. Mark Alvarado MD Primary Care Provider Active Dr. Bahman Alvarado DO Attending Provider Active Team Status: Active Member Role Status Dates Dr. Bria Olsen MD Attending Provider, Other Provid er Active CHRISTIANO SANDOVAL Primary Care Provider Active Team Status: Inactive Member Role Status Dates Dr. Jonh Boyd MD Attending Provider, Referring Provider Active Dr. Mark Alvarado MD Primary Care Provider Active Team Status: Inactive Member Role Status Dates Dr. Mark Alvarado MD Primary Care Provider Active Dr. Jonh Boyd MD Attending Provider, Referring Provider Active Team Status: Active Member Role Status Dates Dr. Bria Olsen MD Attending Provider Active CHRISTIANO SANDOVAL Primary Care Provider Active Team Status: Inactive Member Role Status Dates Dr. Mark Alvarado MD Primary Care Provider Active Dr. Jonh Boyd MD Attending Provider Active Team Status: Inactive Member Role Status Dates Dr. Yanet Seha MD Attending Provider, Emergency Provider Active SUNDEEP SANDOVAL Primary Care Provider Active Team Status: Inactive Member Role Status Dates SUNDEEP SANDOVAL Primary Care Provider Active Dr. Bria Olsen MD Attending Provider, Referring Pr ovider Active Caterer Helper Relationship Specialty Start Date End Date Danilo Alvarado [address] [address] PCP - General Family Practice 08/31/21 Caterer Helper Relationship Specialty Start Date End Date Danilo Alvarado [address] [address] PCP - General Family Practice 08/31/21 Caterer Helper Relationship Specialty Start Date End Date Danilo Alvarado DO [address] [place] [address] PCP - General Family Practice 08/31/21 Caterer Helper Relationship Specialty Start Date End Date Danilo Alvarado DO [address] [place] [address] PCP - General Family Practice 08/31/21 Team Status: Active Member Role Status Dates Dr. Mark Alvarado MD Primary Care Provider Active Team Status: Active Member Role Status Dates Dr. Mark Alvarado MD Primary Care Provider Active Dr. Jonh Boyd MD Attending Provider, Referring Provider Active Team Status: Active Member Role Status Dates Dr. Jonh Boyd MD Referring Provider, Other Pro vider Active DANILO [facility] Primary Care Provider Active Dr. Bahman Alvarado DO Attending Provider Active Team Status: Inactive Member Role Status Dates Dr. Jonh Boyd MD Attending Provider, Referring Provider Active [facility] Primary Care Provider Active Team Status: Inactive Member Role Status Dates Dr. Mark Alvarado MD Referring Provider Active Dr. Jonh Boyd MD Attending Provider [facility] Active Team Status: Inactive Member Role Status Dates Dr. Bria Olsen MD Attending Provider Active [facility] Primary Care Provider Active Team Status: Inactive Member Role Status Dates Frances Fuchs CORPORATE TRAVEL MANAGER, CORPORATE TRAVEL MANAGER-C Attending Provider Active Team Status: Inactive Member Role Status Dates Frances Fuchs CORPORATE TRAVEL MANAGER, CORPORATE TRAVEL MANAGER-C Attending Provider Active Dr. Tim Alvarado DO Primary Care Provider, Referr ing Provider Active Team Status: Inactive Member Role Status Dates Dr. Bria Olsen MD Attending Provider Active Team Status: Active Member Role Status Dates Dr. Estevan Dixon MD Attending Provider Active Dr. Bria Olesn MD Referring Provider Active Team Status: Inactive Member Role Status Dates Out of [facility] Doctor Primary Care Provider, Referring Pr ovider Active Elda Villegas CORPORATE TRAVEL MANAGER, CORPORATE TRAVEL MANAGER-C Attending Provider Active Team Status: Inactive Member Role Status Dates Frances Fuchs CORPORATE TRAVEL MANAGER, CORPORATE TRAVEL MANAGER-C Attending Provider, Referrin g Provider Active DANILO, [facility] Primary Care Provider Active Team Status: Inactive Member Role Status Dates Dr. Bria Olsen MD Attending Provider, Referring Pr ovider Active Team Status: Active Member Role Status Dates Elda Villegas CORPORATE TRAVEL MANAGER, CORPORATE TRAVEL MANAGER-C Attending Provider, Referring Pro vider Active CHRISTIANO SANDOVAL Primary Care Provider Active Team Status: Inactive Member Role Status Dates Dr. Jose R Schmitz DO Emergency Provider Active CHRISTIANO SANDOVAL Primary Care Provider Active Team Status: Inactive Member Role Status Dates Elda Villegas CORPORATE TRAVEL MANAGER, CORPORATE TRAVEL MANAGER-C Attending Provider, Referring Pro vider Active CHRISTIANO SANDOVAL Primary Care Provider Active Team Status: Inactive Member Role Status Dates Out of [facility] Doctor Referring Provider Active Dr. Bahman Alvarado DO Attending Provider Active Team Status: Inactive Member Role Status Dates Out of [facility] Doctor Referring Provider Active Elda Villegas CORPORATE TRAVEL MANAGER, CORPORATE TRAVEL MANAGER-C Attending Provider Active CHRISTIANO SANDOVAL Primary Care Provider Active Team Status: Active Member Role Status Dates Dr. Bahman Alvarado DO Attending Provider, Referring Provider, Other Provider Active CHRISTIANO SANDOVAL Primary Care Provider Active Team Status: Inactive Member Role Status Dates Dr. Jose R Schmitz DO Attending Provider, Emergency Pr ovider Active CHRISTIANO SANDOVAL Primary Care Provider Active Team Status: Inactive Member Role Status Dates Dr. Bahman Alvarado DO Attending Provider, Referring Pro vider Active CHRISTIANO SANDOVAL Primary Care Provider Active Team Status: Inactive Member Role Status Dates CHRISTIANO SANDOVAL Primary Care Provide r, Attending Provider, Referring Provider Active Caterer Helper Relationship Specialty Start Date End Date SheritaDylan arreola [address] [facility] [address] [place] [address] PCP - General 04/18/16 Care Team (unrecognized sect ion and content) Care Team Personnel Name: DANILO ALVARADO MD Member Role: Primary Care Physician Address: Address: [address] Care Team Related Persons Name: KO CHOWDHURY Goals (unrecognized section and content) Goals may be documented in a n alternate section Scheduled Active and Recently Administ ered Medications (unrecognized section and content) Medication Order 11/29/2023 11/30/2023 12/01/2023 acetaminophen (Tylenol) tablet 1,000 mg (COMPLETED) 1,000 mg, Oral, Once, On 12/01/23 at 0650, For 1 dose, Maximum dose of acetaminophen is 4000 mg from all sources in 24 hours. 0657 (Given - Provid er: Thu Calvo RN) acetaminophen (Tylenol) tablet 1,000 mg 1,000 mg, Oral, Every 6 hours scheduled (4 times per day), First dose on 12/01/23 at 1230, Maximum dose of acetaminophen is 4000 mg from all sources in 24 hours. 1301 (Given - Provid er: Maurilio Johnston RN) aspirin EC tablet 81 mg 81 mg, Oral, Daily, First dose on 12/01/23 at 1045, Do not crush, chew, or split. bacitracin ointment (COMPLETED) Topical, Once, On 12/01/23 at 0750, For 1 dose, Apply to right scalp abrasion 0753 (Given - Provid er: Jaz Ayoub RN) buPROPion XL (Wellbutrin XL) 24 hr tablet 150 mg 150 mg, Oral, Daily, First dose on 12/01/23 at 1130, Do not crush, chew, or split. carvedilol (Coreg) tablet 12.5 mg 12.5 mg, Oral, 2 times daily with meals, First dose on 12/01/23 at 1200, Substituted for Carvedilol ER (COREG CR) 1200 (Not Given - Pr ovider: Maurilio Johnston RN - Reason: Patient/family refused - Comment: Pt states he takes his medication at [facility]. states she will bring in home meds if he ends up staying) clopidogrel (Plavix) tablet 75 mg 75 mg, Oral, Daily, First dose on 12/01/23 at 1045 enoxaparin (Lovenox) syringe 40 mg 40 mg, SubCUTAneous, Every 24 hours scheduled (Daily), First dose on 12/01/23 at 1045, Indication of Use: Prophylaxis-DVT/PE, Indications: Prophylaxis of Venous Thromboembolism 1045 (Not Given - Pr ovider: Maurilio Johnston RN - Reason: Patient/family refused) hydroCHLOROthiazide (HYDRODiuril) tablet 25 mg 25 mg, Oral, Daily, First dose on 12/01/23 at 1045 influenza vaccine tiss-cult subunt (Flucelvax) STANDARD-DOSE injection 0.5 mL 0.5 mL, IntraMUSCular, Once, On 12/02/23 at 0900, For 1 dose Lidocaine 4 % patch 1 patch 1 patch, TransDERmal, Administer over 12 Hours, Daily, First dose on 12/01/23 at 0900, Apply patch to where pain is most severe. Patch may remain in place for up to 12 hours in any 24 hour period. 0757 (Medication Susie lied - Provider: Jaz Ayoub RN)1452 (Due: Medication Removed - Provider: Automatic Discharge Provider - Comment: Time automatically adjusted from order being discontinued) methocarbamol (Robaxin) injection 1,000 mg (COMPLETED) 1,000 mg, IntraVENous, Administer over 5 Minutes, Once, On 12/01/23 at 0650, For 1 dose, Maximum dose: 3 g/day for no more than 3 consecutive days 0657 (Given - Provid er: Thu Calvo RN) mometasone-formoterol (Dulera 200) 200-5 MCG/ACT inhaler 2 puff 2 puff, Inhalation, 2 times daily, First dose on 12/01/23 at 0905, Rinse mouth with water after use to reduce aftertaste and incidence of candidiasis. Do not swallow. 09 (Not Given - Pr ovider: Jaz Ayoub RN - Reason: Medication not available) montelukast (Singulair) tablet 10 mg 10 mg, Oral, Nightly, First dose on 12/01/23 at 2100 nicotine (Nicoderm, Step 1) 21 MG/24HR patch 1 patch(Linked Group 1) 1 patch, TransDERmal, Administer over 24 Hours, Daily, First dose on 12/01/23 at 0905, For 42 days, Apply new patch to nonhairy, clean, dry skin on the upper body or upper outer arm. Rotate patch sites. Notify Pharmacy if patient or provider prefers patch to be removed at bedtime and replaced in the morning. 09 (Not Given - Pr ovider: Maurilio Johnston RN - Reason: Patient/family refused) nicotine (Nicoderm, Step 2) 14 MG/24HR patch 1 patch(Linked Group 1) 1 patch, TransDERmal, Administer over 24 Hours, Daily, First dose on 01/12/24 at 0900, For 14 days, Apply new patch to nonhairy, clean, dry skin on the upper body or upper outer arm. Rotate patch sites. Notify Pharmacy if patient or provider prefers patch to be removed at bedtime and replaced in the morning. nicotine (Nicoderm, Step 3) 7 MG/24HR patch 1 patch(Linked Group 1) 1 patch, TransDERmal, Administer over 24 Hours, Daily, First dose on 01/26/24 at 0900, For 14 days, Apply new patch to nonhairy, clean, dry skin on the upper body or upper outer arm. Rotate patch sites. Notify Pharmacy if patient or provider prefers patch to be removed at bedtime and replaced in the morning. pantoprazole (ProtoNix) EC tablet 40 mg 40 mg, Oral, Daily before breakfast, First dose on 12/01/23 at 1100, Substituted for omeprazole (Prilosec). Do not crush, chew, or split. 1100 (Not Given - Pr ovider: Maurilio Johnston RN - Reason: Patient/family refused) potassium chloride CR (Klor-Con M10) ER tablet 20 mEq 20 mEq, Oral, Daily, First dose on 12/01/23 at 1045, Best given with food and plenty of water to minimize gastric irritation. Do not crush or chew. prazosin (Minipress) capsule 1 mg 1 mg, Oral, Nightly, First dose on 12/01/23 at 2100 ranolazine (Ranexa) 12 hr tablet 500 mg 500 mg, Oral, 2 times daily, First dose on 12/01/23 at 1045, Do not crush, chew, or split. 1045 (Not Given - Pr ovider: Maurilio Johnston RN - Reason: Patient/family refused - Comment: Says he only takes once at night) rosuvastatin (Crestor) tablet 10 mg 10 mg, Oral, Daily, First dose on 12/01/23 at 1045 tiotropium (Spiriva Respimat) 2.5 MCG/ACT inhaler 2 puff 2 puff, Inhalation, Daily, First dose on 12/01/23 at 1045, Instruct to hold breath for 10 seconds after each inhalation. Before first use, prime inhaler by actuating until aerosal cloud is seen, then actuating 3 more times. 1045 (Not Given - Pr ovider: Maurilio Johnston RN - Reason: Patient/family refused - Comment: Pt states they are not on this) traZODone (Desyrel) tablet 50 mg 50 mg, Oral, Nightly, First dose on 12/01/23 at 2100 PRN Medication Order 11/29/2023 11/30/2023 12/01/2023 albuterol 108 (90 Base) MCG/ACT inhaler 2 puff 2 puff, Inhalation, Every 6 hours PRN, shortness of breath, Starting on 12/01/23 at 1032 iopamidol (Isovue-370) 76 % injection 100 mL (COMPLETED) 100 mL, IntraVENous, IMG once PRN, contrast, Starting on 12/01/23 at 0434, For 1 dose 0435 (Given - Provid er: Heydi Vallejo, Learning Coach) melatonin tablet 3 mg 3 mg, Oral, Nightly PRN, sleep, Starting on 12/01/23 at 0901 naloxone (Narcan) injection 0.4 mg 0.4 mg, IntraVENous, Every 5 min PRN, opioid reversal, respiratory depression, Starting on 12/01/23 at 0907, +++ For RR <10, pinpoint pupils, over sedation for opioid reversal - MUST notify monotype mechanic provider immediately after first dose, may give IM or SQ if no IV access +++ ondansetron (Zofran) injection 4 mg(Linked Group 2) 4 mg, IntraVENous, Every 6 hours PRN, nausea, vomiting, Starting on 12/01/23 at 0901, 1st Line. Give IV if patient is unable to take orally. If inadequate response within 60 minutes, proceed to next-line agent or contact provider if no further options ordered. ondansetron ODT (Zofran-ODT) disintegrating tablet 4 mg(Linked Group 2) 4 mg, Oral, Every 8 hours PRN, nausea, vomiting, Starting on 12/01/23 at 0901, 1st Line. If inadequate response within 60 minutes, proceed to next-line agent or contact provider if no further options ordered. Patient should allow tablet to dissolve on tongue. Do not remove from blister pack until just before administering. oxyCODONE (Roxicodone) immediate release tablet 2.5 mg(Linked Group 3) 2.5 mg, Oral, Every 4 hours PRN, moderate pain (4-6), Starting on 12/01/23 at 0901 oxyCODONE (Roxicodone) immediate release tablet 5 mg(Linked Group 3) 5 mg, Oral, Every 4 hours PRN, severe pain (7-10), Starting on 12/01/23 at 0901 polyethylene glycol (PEG) 3350 (Miralax) packet 17 g 17 g, Oral, Daily PRN, constipation, Starting on 12/01/23 at 0901, 1st line for treatment of constipation - give scheduled if no bowel movement in past 24 hours. Linked Groups Order Group 1: nicotine (Nicoderm, Step 1) 21 MG/24HR patch 1 patchJump to med 1 patch, TransDERmal, Administer over 24 Hours, Daily, First dose on 12/01/23 at 0905, For 42 days, Apply new patch to nonhairy, clean, dry skin on the upper body or upper outer arm. Rotate patch sites. Notify Pharmacy if patient or provider prefers patch to be removed at bedtime and replaced in the morning. Followed by nicotine (Nicoderm, Step 2) 14 MG/24HR patch 1 patchJump to med 1 patch, TransDERmal, Administer over 24 Hours, Daily, First dose on 01/12/24 at 0900, For 14 days, Apply new patch to nonhairy, clean, dry skin on the upper body or upper outer arm. Rotate patch sites. Notify Pharmacy if patient or provider prefers patch to be removed at bedtime and replaced in the morning. Followed by nicotine (Nicoderm, Step 3) 7 MG/24HR patch 1 patchJump to med 1 patch, TransDERmal, Administer over 24 Hours, Daily, First dose on 01/26/24 at 0900, For 14 days, Apply new patch to nonhairy, clean, dry skin on the upper body or upper outer arm. Rotate patch sites. Notify Pharmacy if patient or provider prefers patch to be removed at bedtime and replaced in the morning. Group 2: ondansetron ODT (Zofran-ODT) disintegrating tablet 4 mgJump to med 4 mg, Oral, Every 8 hours PRN, nausea, vomiting, Starting on 12/01/23 at 0901, 1st Line. If inadequate response within 60 minutes, proceed to next-line agent or contact provider if no further options ordered. Patient should allow tablet to dissolve on tongue. Do not remove from blister pack until just before administering. Or ondansetron (Zofran) injection 4 mgJump to med 4 mg, IntraVENous, Every 6 hours PRN, nausea, vomiting, Starting on 12/01/23 at 0901, 1st Line. Give IV if patient is unable to take orally. If inadequate response within 60 minutes, proceed to next-line agent or contact provider if no further options ordered. Group 3: oxyCODONE (Roxicodone) immediate release tablet 2.5 mgJump to med 2.5 mg, Oral, Every 4 hours PRN, moderate pain (4-6), Starting on 12/01/23 at 0901 Or oxyCODONE (Roxicodone) immediate release tablet 5 mgJump to med 5 mg, Oral, Every 4 hours PRN, severe pain (7-10), Starting on 12/01/23 at 0901 FOR RECORDS PERTAINING TO PATIENTS WHO ARE [...] BE BASED ON THE PRIMARY CLINICAL RECORDS. [facility]ly [facility]. provides no warranty or guarantee of the accuracy or completeness of information in this document.
[2024-09-04] MEDS: Lactated Ringers 1,000 ML 15 ML IV (06:08)
--- NOTE | 2024-09-04 06:27 | PRE.ANES_ITS ---
ASA Classification* ASA Classification ASA Classification: 3 Assessment & Plan Anesthesia* Anesthesia Assessment Anesthesia Assessment: Discussed sedation and/or anesthesia options, risks, benefits, and alternatives with patient/parents/legal guardian/POA. Questions invited. The patient/parents/legal guardian/POA seems to understand and agrees to proceed with anesthesia plan. Reviewed the physical assessment, medical history, allergy history and patient home medications list prior to surgery/procedure/anesthetic and documented any changes. Performed airway and anesthesia risk assessments. Anesthesia Type Anesthesia Type: MAC History Source History Obtained from:: Patient, Chart and Significant Other Anesthesia Focused Assessment* Temperature: 98.4 F Pulse Rate: 72 Blood Pressure: 108/63 Respiratory Rate: 16 Pulse Ox: 96 Oxygen Delivery Method: Room Air Airway Assessment Mouth opens: >3 cm Mallampati Score: II Teeth Condition: Chipped/Broken (No upper teeth. Lower teeth few missing and poor shape. Denies loose teeth ) Neck Range of motion (ROM): Full ROM Labs Anesthesia Preop lab: CBC WBC 11.6 K/mm3 (4.4-11.0) H 09/19/23 09:24 4 RBC 5.17 M/mm3 (4.6-6.2) 09/19/23 09:24 09/19/23 Hgb 15.8 g/dL (13.0-16.5) 09/19/23 09:24 09/19/23 Hct 46.3 % (40-54) 09/19/23 09:24 09/19/23 Plt Count 306 K/mm3 (150-450) 09/19/23 09:24 09/19/23 CHEMISTRY Potassium 4.1 mmol/L (3.5-5.1) 01/24/23 02:11 01/24/23 Sodium 138 mmol/L (136-145) 01/24/23 02:11 01/24/23 Magnesium 2.2 mg/dL (1.6-2.6) 01/22/23 14:43 01/22/23 BUN 18 mg/dL (7-18) 01/24/23 02:11 01/24/23 Creatinine 1.16 mg/dL (0.70-1.30) 01/24/23 02:11 01/24/23 Glucose 119 mg/dL (74-106) H 01/24/23 02:11 01/24/23 COAG PT 12.0 SECONDS (11.7-14.9) 01/24/23 02:11 Pre-Assessment Diagnosis/Proposed Procedure Planned Operative Procedure(s): COLONOSCOPY Anesthesia History Anesthesia History - 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 When Was Last Pacemaker Check QUESTION #4 FULL TEXT: You/Your Family Experience fever (hyperthermia) with Anesthesia Last Oral Intake Last Oral intake: Last Oral Intake NPO since 02:30 09/04/24 06:04 Meds taken in AM with sips of No 09/04/24 06:04 water? Meds patient instructed to take am of surgery PONV PONV - non destructive testing technician: PONV - non destructive testing technician Female No 09/02/24 09:31 HX of Motion Sickness No 09/02/24 09:31 HX of N/V After Surgery No 09/02/24 09:31 Non-Smoker No 09/02/24 09:31 Duration of Surgery greater No 09/02/24 09:31 than 60 minutes Number of Risk Factors PONV Score Height & Weight Height & Weight: Anesthesia: Height & Weight Height 6 ft 09/04/24 06:04 Weight: 100.9 kg 09/04/24 06:04 Body Mass Index (BMI) 30.2 09/04/24 06:04 Respiratory Assessment Respiratory Assessment - non destructive testing technician: Respiratory Tract Infection Hx - non destructive testing technician Hx Respiratory Tract Infection No 09/02/24 09:31 STOP Sleep Apnea STOP Sleep Apnea - non destructive testing technician: STOP Sleep Apnea - non destructive testing technician Hx Hypertension Yes 09/02/24 09:31 Hx Sleep Apnea No 09/02/24 09:31 CPAP BIPAP Do you snore loudly (louder No 09/02/24 09:31 than talking or can be heard Do you often feel tired/ No 09/02/24 09:31 fatigued/ sleepy during daytime? Has anyone observed you stop No 09/02/24 09:31 breathing during sleep? STOP Results Negative 09/02/24 09:31 QUESTION #5 FULL TEXT : Do you snore loudly (louder than talking or can be heard through closed doors)? 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 Specify any problems Hx of Preganancy in last 3 N/A 09/02/24 09:31 Months Nurse Filling Out Transfusion [place] 09/02/24 09:31 & Questions: Date: 09/02/24 09/02/24 09:31 Time: 09:38 09/02/24 09:31 Patient unable to answer at this time (ie. confused, unrespo /Reproduction History /Reproductive History - non destructive testing technician: /Reproductive Hx- non destructive testing technician Hx Now No 09/02/24 09:31 Gestational Age (in weeks): EDC: Hx Hx Para Hx Section SAB No 09/02/24 09:31 Active Medications Active Medications: Current Medications Generic Name Dose Route Start Last Admin Trade Name Freq PRN Reason Stop Dose Admin Lactated Ringer's 1,000 mls @ 15 mls/hr 09/04/24 05:45 09/04/24 06:08 IV 15 mls/hr .Q48H RENNY Administration PFSH Medical History (Updated 09/02/24 @ 09:38 by Soraya Freed) Wears dentures Wears glasses Arthritis High cholesterol Injury of head and neck Injury of back History of IBS Gastric reflux Smoker CPAP (continuous positive airway pressure) dependence Sleep apnea On home oxygen therapy Emphysema, unspecified Shortness of breath on exertion Cardiology follow-up encounter History of stress test History of irregular heartbeat RLQ abdominal pain GI bleed Mild sleep apnea Chronic cough Nicotine dependence Family history of ischemic heart disease and other diseases of the circulatory system Presence of stent in coronary artery (~02/01/22) Old myocardial infarction Primary snoring Nicotine addiction Hemoptysis Nicotine dependence, cigarettes, uncomplicated Abdominal distension (gaseous) Unspecified systolic (congestive) heart failure Hyperlipidemia Atherosclerosis of coronary artery of [place] heart without angina pectoris Chest pain Noncompliance with medications Essential hypertension Stroke Pneumonia GERD (gastroesophageal reflux disease) COPD (chronic obstructive pulmonary disease) Depression Anxiety Asthma Emphysema, unspecified CAD (coronary artery disease) Encounter for 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) Home Medications ?Medication ?Instructions ?Recorded ?Last Taken ?Type albuterol sulfate 2.5 mg/3 mL 2.5 mg inhalation Q4H IN N 05/22/22 Unknown History (0.083 %) solution for nebulization shortness of breat h or wheezing albuterol sulfate 90 mcg/actuation 2 puff inhalation Q 4H PRN 05/22/22 Unknown History aerosol inhaler shortness of breath or wheez ing aspirin 81 mg tablet,delayed 81 mg PO DAILY 05/22/22 U nknown History release magnesium oxide 250 mg PO DAILY 05/22/22 Unk nown History omeprazole 40 mg capsule,delayed 40 mg PO DAILY Unknown History release rosuvastatin 10 mg tablet 10 mg PO DAILY 05/22/22 Unkn own History carvedilol phosphate 20 mg 20 mg PO DAILY 06/15/22 Unk nown History capsule,[id number] multiphase montelukast 10 mg tablet 10 mg PO QPM #90 tabs Unknown Rx budesonide 0.5 mg/2 mL suspension 0.5 mg inhalation Q1 2H BREATHING 01/24/23 Unknown History for nebulization potassium chloride 20 mEq 20 meq PO DAILY 01/24/23 Unk nown History tablet,extended release(part/cryst) hydrochlorothiazide 25 mg tablet 25 mg PO DAILY #30 ta bs 05/25/23 Unknown Rx nitroglycerin 0.4 mg sublingual 0.4 mg sublingual Q5-1 5M PRN chest 09/17/23 Unknown History tablet pain ranolazine 500 mg tablet,extended 500 mg PO BID #60 ta bs 09/17/23 Unknown Rx release,12 hr benralizumab 30 mg/mL subcutaneous 30 mg subcut Q8W #1 mL 09/19/23 Unknown Rx auto-injector (Fasenra Pen) bupropion HCl (smoking deter) 150 150 mg PO BID #60 ta bs 11/06/23 Unknown Rx mg tablet,12 hr sustained-release(smoking deterrent) clopidogrel 75 mg tablet 75 mg PO DAILY #90 tabs 10/2008/31/24 Rx amantadine HCl (bulk) ea miscellaneous 01/14/24 Un known History ipratropium 0.5 mg-albuterol 3 mg 1.5 ml inhalation Q6 H BREATHING 01/14/24 Unknown History (2.5 mg base)/3 mL nebulization soln trazodone 100 mg tablet 100 mg PO QHS PRN insomnia # 30 tabs 02/19/24 Unknown Rx umeclidinium 62.5 mcg-vilanterol 1 inh inhalation Q24H #60 ea 03/12/24 Unknown Rx 25 mcg/actuation powdr for inhalation (Anoro Ellipta) prazosin 1 mg capsule 1 mg PO QHS #30 caps 5 Unknown Rx fluticasone furoate 200 1 inh inhalation Q24H #30 ea 04/28/24 Unknown Rx mcg/actuation blister powder for inhalation (Arnuity Ellipta) Allergy/AdvReac Type Severity Reaction Status Date / Time isosorbide Allergy Severe Severe Verified 09/04/24 06:02 headaches amlodipine AdvReac Intermediate Severe Verified 09/04/24 06:02 headache Family History Mother Cancer Ovarian Grandmother Cancer breast cancer. Heart disease Myocardial infarction Grandfather Cancer Lung Fibromyalgia Father Cancer Surgical History (Updated 09/02/24 @ 09:38 by Soraya Freed) History of cardiac catheterization History of left heart catheterization (LHC) (~09/25/22) Presence of coronary angioplasty implant and graft (~02/01/22) H/O inguinal hernia repair H/O arthroscopic knee surgery H/O hand surgery Social History Smoking Status: Current some day smoker tobacco type: cigarettes alcohol intake: never substance use type: does not use caffeine: Yes Type: coffee Number of servings: 3 Review of Systems (Anesthesia) ROS Narrative System reviewed and no additional complaints, except as documented.
--- NOTE | 2024-09-04 06:30 | COLBX_PTH ---
PATIENT: MARIBELL MAZARIEGOS LOC: [facility] U#:[id number] AGE/SX: 49/M ROOM: RE09/04/[address]: Dr. Calvin Jasso DO : 1975 BED: DIS: 09/04/2024 SPEC #: [id number] RECD: 09/04/24 09:34 STATUS: MIKE ECTOR #: [id number] WATSON: 09/04/24 06:[address]: Calvin Jasso DEPT: SURGICAL PATHOLOGY RECD BY: Ester Arrieta ENTERED: 09/04/24 10:11 SP TYPE: COLON BX TASHA DR: JEANNIE MAGALLANES, GSE MECHANIC-Valery Tissues: Sigmoid colon biopsy Procedures: Surgery Specimen Level IV HEADER OPERATION: Colonoscopy, Biopsy PRE-OP DIAGNOSIS: Hematochezia, Acute Constipation TISSUE SUBMITTED: Sigmoid Colon Biopsy MICROSCOPIC DIAGNOSIS A. Colon, sigmoid, biopsy: - No specific pathologic change. MICROSCOPIC DESCRIPTION Slides are reviewed. GROSS DESCRIPTION A. Received in formalin labeled with the patient's name and date of . Designated as sigmoid colon BX are 2 [place] tissue fragments, 0.2 cm and 0.3 cm. Entirely submitted in 1 cassette. [place] 09/04/2024 CPT: 24075
--- NOTE | 2024-09-04 06:52 | HP.PCM_ITS ---
[facility] - General General Date of Admission: 09/04/24 Date of Service: 09/04/24 Chief Complaint: Screening colonoscopy, change in bowel habits and lower GI bleeding [facility] Narrative MARIBELL MAZARIEGOS, is a 49 M who presents with the Chief Complaint: Constipation, Rectal bleeding Hx of tobacco use, HLD, stroke, PNA, GERD, COPD, anx/dep, asthma, CAD, emphysema, HTN, eosinophilia. He reports constipation for 5 days with abdominal distention and pain; tried Miralax without results; saw his PCP who recommended magnesium citrate. He said he didn't care at that point and just took the whole bottle in one shot on Sunday night and by Sunday at 2a he had to get up to have a BM. He denied the stool being of significant caliber at the beginning, it was mostly like water with a lot of blood in it. He provided a picture from Sunday morning of very small drips of bright blood in the toilet water. He denies bleeding since. He reports sharp lower abdominal cramping that signals his need for BM and once BM is complete the cramp goes away. He denies rectal pressure and tenesmus. He states that his BMs are daily and complete now. He reports taking omeprazole 40mg daily for reflux and heartburn and without it he has severe nausea. He denies difficulty chewing and swallowing, throat clearing, sinus drainage, emesis, abdominal bloating, diarrhea, and melena. He denies knowing pertinent family history regarding colon cancer and autoimmune disorders . He reports nightly use of oxygen at 3 lpm. COUNTS INCLUDE 234 BEDS AT THE [facility] Medical History Wears dentures Wears glasses Arthritis High cholesterol Injury of head and neck Injury of back History of IBS Gastric reflux Smoker CPAP (continuous positive airway pressure) dependence Sleep apnea On home oxygen therapy Emphysema, unspecified Shortness of breath on exertion Cardiology follow-up encounter History of stress test History of irregular heartbeat RLQ abdominal pain GI bleed Mild sleep apnea Chronic cough Nicotine dependence Family history of ischemic heart disease and other diseases of the circulatory system Presence of stent in coronary artery (~02/01/22) Old myocardial infarction Primary snoring Nicotine addiction Hemoptysis Nicotine dependence, cigarettes, uncomplicated Abdominal distension (gaseous) Unspecified systolic (congestive) heart failure Hyperlipidemia Atherosclerosis of coronary artery of inupiat heart without angina pectoris Chest pain Noncompliance with medications Essential hypertension Stroke Pneumonia GERD (gastroesophageal reflux disease) COPD (chronic obstructive pulmonary disease) Depression Anxiety Asthma Emphysema, unspecified CAD (coronary artery disease) Encounter for 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) Home Medications ?Medication ?Instructions ?Recorded ?Last Taken ?Type albuterol sulfate 2.5 mg/3 mL 2.5 mg inhalation Q4H IL N 05/22/22 Unknown History (0.083 %) solution for nebulization shortness of breat h or wheezing albuterol sulfate 90 mcg/actuation 2 puff inhalation Q 4H PRN 05/22/22 Unknown History aerosol inhaler shortness of breath or wheez ing aspirin 81 mg tablet,delayed 81 mg PO DAILY 05/22/22 U nknown History release magnesium oxide 250 mg PO DAILY 05/22/22 Unk nown History omeprazole 40 mg capsule,delayed 40 mg PO DAILY Unknown History release rosuvastatin 10 mg tablet 10 mg PO DAILY 05/22/22 Unkn own History carvedilol phosphate 20 mg 20 mg PO DAILY 06/15/22 Unk nown History capsule,[id number] multiphase montelukast 10 mg tablet 10 mg PO QPM #90 tabs Unknown Rx budesonide 0.5 mg/2 mL suspension 0.5 mg inhalation Q1 2H BREATHING 01/24/23 Unknown History for nebulization potassium chloride 20 mEq 20 meq PO DAILY 01/24/23 Unk nown History tablet,extended release(part/cryst) hydrochlorothiazide 25 mg tablet 25 mg PO DAILY #30 ta bs 05/25/23 Unknown Rx nitroglycerin 0.4 mg sublingual 0.4 mg sublingual Q5-1 5M PRN chest 09/17/23 Unknown History tablet pain ranolazine 500 mg tablet,extended 500 mg PO BID #60 ta bs 09/17/23 Unknown Rx release,12 hr benralizumab 30 mg/mL subcutaneous 30 mg subcut Q8W #1 mL 09/19/23 Unknown Rx auto-injector (Fasenra Pen) bupropion HCl (smoking deter) 150 150 mg PO BID #60 ta bs 11/06/23 Unknown Rx mg tablet,12 hr sustained-release(smoking deterrent) clopidogrel 75 mg tablet 75 mg PO DAILY #90 tabs 10/2008/31/24 Rx amantadine HCl (bulk) ea miscellaneous 01/14/24 Un known History ipratropium 0.5 mg-albuterol 3 mg 1.5 ml inhalation Q6 H BREATHING 01/14/24 Unknown History (2.5 mg base)/3 mL nebulization soln trazodone 100 mg tablet 100 mg PO QHS PRN insomnia # 30 tabs 02/19/24 Unknown Rx umeclidinium 62.5 mcg-vilanterol 1 inh inhalation Q24H #60 ea 03/12/24 Unknown Rx 25 mcg/actuation powdr for inhalation (Anoro Ellipta) prazosin 1 mg capsule 1 mg PO QHS #30 caps 5 Unknown Rx fluticasone furoate 200 1 inh inhalation Q24H #30 ea 04/28/24 Unknown Rx mcg/actuation blister powder for inhalation (Arnuity Ellipta) Allergy/AdvReac Type Severity Reaction Status Date / Time isosorbide Allergy Severe Severe Verified 09/04/24 06:02 headaches amlodipine AdvReac Intermediate Severe Verified 09/04/24 06:02 headache Family History Mother Cancer Ovarian Grandmother Cancer breast cancer. Heart disease Myocardial infarction Grandfather Cancer Lung Fibromyalgia Father Cancer Surgical History History of cardiac catheterization History of left heart catheterization (LHC) (~09/25/22) Presence of coronary angioplasty implant and graft (~02/01/22) H/O inguinal hernia repair H/O arthroscopic knee surgery H/O hand surgery Social History Smoking Status: Current some day smoker tobacco type: cigarettes alcohol intake: never substance use type: does not use caffeine: Yes Type: coffee Number of servings: 3 ROS Constitutional Constitutional: Denies fatigue, fever(s), poor appetite, weight gain or weight loss Gastrointestinal Gastrointestinal: Denies belching, bloating, change in bowel habits, change in stool character, chewing difficulty, coffee ground emesis, constipation, cramping, diarrhea, dyspepsia, dysphagia, early satiety, excessive flatus, fecal incontinence, heartburn, hematemesis, hematochezia, hemorrhoids, loose stools, melena, nausea, odynophagia, rectal bleeding, tenesmus, vomiting or weight changes Vital Signs Vital Signs Vital Signs: 09/04/24 06:04 09/04/24 06:04 09/04/24 06:35 Temperature 98.4 F 98.4 F Temperature Source Temporal Pulse Rate 72 72 Respiratory Rate 16 16 Respiratory Pattern Normal Blood Pressure 108/63 108/63 Blood Pressure Mean 78 Blood Pressure Source Monitor Blood Pressure Position Sitting Blood Pressure Location Right Arm Pulse Ox 96 96 Oxygen Delivery Method Room Air Room Air Weight Weight: 222 lb 7.143 oz Body Mass Index (BMI) 30.2 Physical Exam Const alert, oriented x3, no apparent distress and healthy appearing General Appearance: cooperative GI normal to inspection, nondistended, normoactive bowel sounds, soft to palpation, non-tender and non-distended Percussion: normal to percussion Rectal Exam: deferred Assessment & Plan Assessment/Plan (1) Constipation: QUALIFIERS: Constipation type: unspecified constipation type Qualified Code(s): K59.00 - Constipation, unspecified (2) Hematochezia: PLAN: Assessment and Plan Assessment and Plan (1) Hematochezia: Status: Acute (2) Constipation: Status: Acute Qualifiers: Constipation type: unspecified constipation type Qualified Code(s): K59.00 - Constipation, unspecified Plan MARIBELL MAZARIEGOS, is a 48 M who presents to the office today for establishment with [facility] for concerns of lower GI bleeding and sudden constipation. Differential diagnoses include: IBS, idiopathic constipation, IBD. Discussed care plan with him. Advised for large amounts of melissa rectal bleeding with associated increased fatigue, shortness of breath, dizzy or lightheadedness to seek care at nearest ER. * schedule colonoscopy * psyllium husk 1tsp PO daily * polyethylene glycol powder 17gm PO QHS PRN constipation * office FU for results
--- NOTE | 2024-09-04 07:29 | OP.COLON_ITS ---
Patient Name: Dontae Parra Procedure Date: 09/04/2024 6:59 AM Date of : 1975 Age: 49 Procedure: Colonoscopy Indications: Hematochezia Providers: Calvin Jasso DO Referring MD: Jesse Love Medicines: Monitored Anesthesia Care Patient Profile: This is a 49 year old male. Refer to note in patient chart for documentation of history and physical. Last Colonoscopy: more than 10 years ago. Complications: No immediate complications. Procedure: Pre-Anesthesia Assessment: - Prior to the procedure, a History and Physical was performed, and patient medications and allergies were reviewed. The patient is competent. The risks and benefits of the procedure and the sedation options and risks were discussed with the patient. All questions were answered and informed consent was obtained. Patient identification and proposed procedure were verified by the physician in the pre-procedure area. Mental Status Examination: alert and oriented. Airway Examination: normal oropharyngeal airway and neck mobility. Respiratory Examination: clear to auscultation. CV Examination: normal. Prophylactic Antibiotics: The patient does not require prophylactic antibiotics. Prior Anticoagulants: The patient has taken no anticoagulant or antiplatelet agents. ASA Grade Assessment: II - A patient with mild systemic disease. After reviewing the risks and benefits, the patient was deemed in satisfactory condition to undergo the procedure. The anesthesia plan was to use moderate sedation / analgesia (conscious sedation). Immediately prior to administration of medications, the patient was re-assessed for adequacy to receive sedatives. The heart rate, respiratory rate, oxygen saturations, blood pressure, adequacy of pulmonary ventilation, and response to care were monitored throughout the procedure. The physical status of the patient was re-assessed after the procedure. After I obtained informed consent, the scope was passed under direct vision. Throughout the procedure, the patient's blood pressure, pulse, and oxygen saturations were monitored continuously. The colonoscope was introduced through the anus and advanced to the terminal ileum. The colonoscopy was performed without difficulty. The patient tolerated the procedure well. The quality of the bowel preparation was adequate. The terminal ileum, ileocecal valve, appendiceal orifice, and rectum were photographed. Scope In: 7:05:09 AM Scope Withdrawal Time 0 hours 9 minutes 29 seconds Scope Out: 7:20:06 AM Total Procedure Duration Time 0 hours 14 minutes 57 seconds Findings: An area of mildly congested mucosa was found in the recto-sigmoid colon. Biopsies were taken with a cold forceps for histology. Verification of patient identification for the specimen was done. Estimated blood loss was minimal. Semi-liquid stool was found at the splenic flexure and in the transverse colon, precluding visualization. Non-bleeding external and internal hemorrhoids were found during retroflexion and during perianal exam. The hemorrhoids were Grade II (internal hemorrhoids that prolapse but reduce spontaneously). Impression: - Congested mucosa in the recto-sigmoid colon. Biopsied. - Stool at the splenic flexure and in the transverse colon. Recommendation: - Discharge patient to home. - Resume previous diet. - Continue present medications. - Await pathology results. - Repeat colonoscopy in 5 years for surveillance. Procedure Code(s): --- Professional --- 33900, Colonoscopy, flexible; with biopsy, single or multiple CPT copyright 2021 [employer]. All rights reserved. The codes documented in this report are preliminary and upon medical lab assistant review may be revised to meet current compliance requirements. Calvin Jasso DO 09/04/2024 7:28:35 AM This report has been signed electronically. Number of Addenda: 0 Note Initiated On: 09/04/2024 6:59 AM
--- NOTE | 2024-09-04 07:29 | OP.CCLET_ITS ---
09/04/2024 Jesse Love Re : Colonoscopy procedure for Dontae Parra Dear David This procedure was performed on August. My impressions and recommendations are as follows: Impressions : - Congested mucosa in the recto-sigmoid colon. Biopsied. - Stool at the splenic flexure and in the transverse colon. Recommendations : - Discharge patient to home. - Resume previous diet. - Continue present medications. - Await pathology results. - Repeat colonoscopy in 5 years for surveillance. My findings are described in the full procedure note, which is enclosed. If I can be of further assistance, please feel free to contact me at . Sincerely, Calvin Jasso, 09/04/2024 7:28:35 AM This report has been signed electronically.
--- NOTE | 2024-09-04 07:30 | PCM.POST.ANE ---
Anesthesia: Postop Eval I Current Vital Signs Temperature: 97.2 F Pulse Rate: 77 Blood Pressure: 94/71 Respiratory Rate: 18 Pulse Ox: 95 Oxygen Delivery Method: Room Air Assessment Airway patent: Yes Spontaneous unlabored respirations: Yes Mental status: Asleep nausea: No Vomiting: No Anesthesia Complication: No Fluid Hydration Crystalloid volume administer (ml): 700 Total IV fluid infused: 700 Progress Note Anesthesia document: Postop Eval 1 completed: Yes
--- NOTE | 2024-09-04 09:52 | PCM.POSTANE2 ---
Anesthesia Postop Eval I Sum Postop Eval Completion status Anesthesia document: Postop Eval 1 completed: Yes Anesthesia Postop Eval I Summary Anesthesia Postop Eval I Summary: Anesthesia Postop Eval I: Assessment Summary Airway patent Yes 09/04/24 07:32 [email or web address] Spontaneous unlabored Yes 09/04/24 07:32 [email or web address] respirations Mental status Asleep 09/04/24 07:32 [email or web address] nausea No 09/04/24 07:32 [email or web address] Vomiting No 09/04/24 07:32 [email or web address] Anesthesia Postop Eval I: Fluid Summary Crystalloid volume administer 700 09/04/24 07:32 [email or web address] (ml) Colloids volume administered ( ml) Blood Product volume administered (ml) Total IV fluid infused 700 09/04/24 07:32 [email or web address] Anesthesia Postop Eval I: Summary Notes Anesthesia Complication No 09/04/24 07:32 [email or web address] Anesthesia Complication Comment: Post-operative progress note Anesthesia: Postop Eval II Evaluation Mental status: Awake and Calm Pain Level: 1 nausea: No Vomiting: No
== END 2024-09-04 08:15 | disposition home or self-care (01) ==
LOC: EN 05:33 → AC 05:35
PROVIDERS: PCP Nurse Practitioner Family; Referring Provider Nurse Practitioner Family; Visit Provider Internal Medicine Gastroenterology
PROC: 0DJD8ZZ Inspection of Lower Intestinal Tract, Via Natural or Artificial Opening Endoscopic (ICD-10-PCS; CPT 45378; principal; 2024-09-04 06:25)
DX: Z12.11 Encounter for screening for malignant neoplasm of colon (principal); I11.0 Hypertensive heart disease with heart failure; I50.20 Unspecified systolic (congestive) heart failure; J82.81 Chronic eosinophilic pneumonia; J44.9 Chronic obstructive pulmonary disease, unspecified; Z79.51 Long term (current) use of inhaled steroids; K64.1 Second degree hemorrhoids; K59.00 Constipation, unspecified; K21.9 Gastro-esophageal reflux disease without esophagitis; Z79.899 Other long term (current) drug therapy; K62.5 Hemorrhage of anus and rectum; I25.10 Atherosclerotic heart disease of native coronary artery without angina pectoris; Z79.02 Long term (current) use of antithrombotics/antiplatelets; Z86.73 Personal history of transient ischemic attack (TIA), and cerebral infarction without residual deficits; E78.00 Pure hypercholesterolemia, unspecified; I25.2 Old myocardial infarction; Z79.82 Long term (current) use of aspirin; F32.A Depression, unspecified; Z98.61 Coronary angioplasty status; F17.210 Nicotine dependence, cigarettes, uncomplicated; K31.89 Other diseases of stomach and duodenum; Z99.89 Dependence on other enabling machines and devices
CPT/HCPCS: 45380; 88305; J2405

== ENCOUNTER → 2024-11-04 | Outpatient (CLI) | payer OTHER, SELFPAY ==
--- NOTE | 2024-11-04 17:05 | MRI_ITS ---
PROCEDURE: SPINE CERVICAL (ROUTINE) 11/04/2024 REASON FOR EXAM: WORSENING DEXTERITY X3 MONTHS TECHNIQUE: Procedure Code: MRISP Modality: MR Procedure: SPINE CERVICAL (ROUTINE) Multiplanar and multisequence images were obtained without IV contrast administration. COMPARISON: Cervical spine x-ray 11/30/2023. FINDINGS: Vertebrae: Cervical vertebral body heights are preserved. Bone marrow signal is unremarkable. Alignment: Normal. No spondylolisthesis. Spinal Cord: Cervical spinal cord is of normal size and signal intensities. Structures at the foramen magnum are unremarkable. C2-3: Facet joints arthropathy. A 2 mm disc osteophyte complex. No foraminal or canal stenosis. C3-4: Disc osteophyte complex. Facet joint arthropathy. Left uncovertebral hypertrophy. Severe left and mild right foramina stenosis. No significant canal stenosis. C4-5: Disc osteophyte complex. Uncovertebral hypertrophy. Moderate bilateral foramina stenosis. Mild canal stenosis. C5-6: Disc osteophyte complex. Uncovertebral hypertrophy. Facet joint arthropathy. Mild bilateral foramina stenosis. Moderate canal stenosis. C6-7: No significant foraminal or canal stenosis. A 2 mm disc osteophyte complex. C7-T1: Unremarkable MRI/Spine Cervical (Routine) IMPRESSION: Degenerate changes predominantly at C4-C5 where there is moderate bilateral for roel stenosis and mild canal stenosis. Severe left foramina stenosis at C3-C4 from facet joint arthropathy and ligamen terrell flavum hypertrophy. Reading Location: [facility]
--- OUTSIDE RECORDS SUMMARY | 2024-11-04 23:14 | XMS RPT_ITS | CCD ---
Author Organization [facility] Care Team Providers Care Certified Master Safecracker Name Role Phone Sherita, Dylan Unavailable Unavailable Sherita, Dylan Unavailable Unavailable Prashant Flores Unavailable Unavailable Sherita, Dylan Unavailable Unavailable Sherita, Dylan Unavailable Unavailable Bowen, Nile Unavailable Unavailable NELLY, MERLY Unavailable Unavailable Sherita, Dylan Unavailable Unavailable Sherita, Dylan Unavailable Unavailable NO REFERRING Unavailable Unavailable [facility] Unavailable Unavailable UNKNOWN, PROVIDER Unavailable Unavailable Danilo Alvarado DO Primary Care Provider DR DANILO ALVARADO MD Primary Care Physician [...] Care Provider DANILO ALVARADO Primary Care Provider UnavailMO Van MD Attending UnavailDR DANILO Cox MD Primary Care Unavailable JEANNIE GARNETT DO Attending Unavailable DR DANILO ALVARADO MD Primary Care Unavailable ELDA HUNTER MD Attending Unavailable DR DANILO ALVARADO MD Primary Care Unavailable Shila BIOLOGICAL TECHNICAL OFFICER, BIOLOGICAL TECHNICAL OFFICER-C Frances Attending Provider Dr. Bria Olsen Attending Provider Dr. Estevan Dixon Attending Provider Dr. Bria Olsen Referring Provider Dr. Tim Alvarado Primary Care Provider Dr. Tim Alvarado Referring Provider [facility] Doctor, Out of Primary Care Provider [facility] Doctor, Out of Referring Provider Unavailab le Roof BIOLOGICAL TECHNICAL OFFICER, BIOLOGICAL TECHNICAL OFFICER-Valery Leal Attending Provider Shila SZYMANSKI, BIOLOGICAL TECHNICAL OFFICER-C Frances Attending Provider Dr. Tim Alvarado Primary Care Provider Dr. Tim Alvarado Referring Provider [facility] Doctor, Out of Primary Care Provider [facility] Doctor, Out of Referring Provider Unavailab le Roof BIOLOGICAL TECHNICAL OFFICER, BIOLOGICAL TECHNICAL OFFICER-Valery Leal Attending Provider ADNILO ALVARADO Primary Care Provider Unavailabl e Dr. Bahman Alvarado Attending Provider Dr. Bahman Alvarado Referring Provider Dr. Bahman Alvarado Other Provider [facility] Primary Care Provider [phone] [facility] Doctor, Out of Referring Provider Unavailab le Roof BIOLOGICAL TECHNICAL OFFICER, BIOLOGICAL TECHNICAL OFFICER-Valery Leal Attending Provider [phone] Dylan Magallon Primary Care Provider MUMTAZ HOLLEY DO Admitting Unavailable DIDMUMTAZ TRUJILLO DO Attending Unavailable MUMTAZ HOLLEY DO Primary Care Unavailable ELPIDIO HARVESTING MANAGER-BANQUET HOUSEPERSON, JEANNIE Primary Care Physician DYLAN MAGALLON Primary Care Unavailable NONE, PCP Referring Unavailable ACACIA, KAMAL Admitting Unavailable ACACIA, KAMAL Attending Unavailable Delores Pablo Attending Unavailable ELPIDIO, JEANNIE Referring Unavailable ELPIDIO, JEANNIE Primary Care Unavailable Delores Pablo Attending Unavailable ELPIDIO, JEANNIE Primary Care Unavailable ELPIDIO, JEANNIE Referring Unavailable Roof BIOLOGICAL TECHNICAL OFFICER, Elda Leal Attending Unavailable ELPIDIO, JEANNIE Primary Care Unavailable ELPIDIO, JEANNIE Referring Unavailable ELPIDIO, JEANNIE Referring Unavailable RuDelores haddad Attending Unavailable ELPIDIO, JEANNIE Primary Care Unavailable Roof BIOLOGICAL TECHNICAL OFFICER, Elda Leal Referring Unavailable Roof BIOLOGICAL TECHNICAL OFFICER, Elda Leal Attending Unavailable ELPIDIO, JEANNIE Primary Care Unavailable Bria Olsen Attending Unavailable Roof BIOLOGICAL TECHNICAL OFFICER, Elda Leal Consulting Unavailable Roof BIOLOGICAL TECHNICAL OFFICER, Elda Leal Referring Unavailable ELPIDIO, JEANNIE Primary Care Unavailable ELPIDIO, JEANNIE Referring Unavailable Friend, Calvin Attending Unavailable Friend, Calvin Consulting Unavailable ELPIDIO, JEANNIE Primary Care Unavailable ELPIDIO, JEANNIE Primary Care Unavailable Alba Bernal Attending Unavailable ELPIDIO, JEANNIE Primary Care Unavailable Alba Bernal Attending Unavailable ELPIDIO, JEANNIE Referring Unavailable Roof BIOLOGICAL TECHNICAL OFFICER, Elda Leal Attending Unavailable ELPIDIO, JEANNIE Primary Care Unavailable AnikaMacrina Referring Unavailable AnikaMacrina Attending Unavailable ELPIDIO, JEANNIE Primary Care Unavailable WANGELAL Referring Unavailable WANGCLEVELANDYAN Attending Unavailable ELPIDIO, JEANNIE Primary Care Unavailable Delores Pablo Attending Unavailable Delores Pablo Referring Unavailable ELPIDIO, JEANNIE Primary Care Unavailable Delores Pablo Attending Unavailable Delores Pablo Referring Unavailable ELPIDIO, JEANNIE Primary Care Unavailable ELPIDIO, JEANNIE Referring Unavailable Macrina Donaldson Attending Unavailable ELPIDIO, JEANNIE Primary Care Unavailable Griffin Howell Attending Unavailable ELPIDIO, JEANNIE Primary Care Unavailable ELPIDIO, JEANNIE Referring Unavailable Frances Fuchs Attending Unavailable ELPIDIO, JEANNIE Primary Care Unavailable ELPIDIO, JEANNIE Primary Care Unavailable Elizabeth Azar Referring Unavailable Elizabeth Azar Attending Unavailable FriendCalvin Attending Unavailable ELPIDIO, JEANNIE Referring Unavailable ELPIDIO, JEANNIE Primary Care Unavailable Delores Pablo Referring Unavailable Delores Pablo Attending Unavailable ELPIDIO, JEANNIE Primary Care Unavailable Roof BIOLOGICAL TECHNICAL OFFICER, Elda Leal Attending Unavailable ELPIDIO, JEANNIE Primary Care Unavailable ELPIDIO, JEANNIE Referring Unavailable RufenDelores simms Attending Unavailable ELPIDIO, JEANNIE Primary Care Unavailable ELPIDIO, JEANNIE Referring Unavailable ELPIDIO, JEANNIE Primary Care Unavailable Raina Orozco Attending Unavailable ELPIDIO, JEANNIE Primary Care Unavailable Alba Bernal Attending Unavailable ELPIDIO, JEANNIE Referring Unavailable ELPIDIO, JEANNIE Primary Care Unavailable Frances Fuchs Attending Unavailable ELPIDIO, JEANNIE Primary Care Unavailable Alba Bernal Attending Unavailable Bria Olsen Attending Unavailable Roof Elda SZYMANSKI Referring Unavailable ELPIDIO, JEANNIE Primary Care Unavailable Delores Pablo Attending Unavailable ELPIDIO, JEANNIE Primary Care Unavailable ELPIDIO, JEANNIE Referring Unavailable ELPIDIO HARVESTING MANAGER-BANQUET HOUSEPERSON, JEANNIE Primary Care Unavai lable ELPIDOI HARVESTING MANAGER-BANQUET HOUSEPERSON, JEANNIE Attending Unavai lable BRIANA HARVESTING MANAGER-BANQUET HOUSEPERSON, LAURA Attending Unavai lable ELPIDIO HARVESTING MANAGER-BANQUET HOUSEPERSON, JEANNIE Primary Care Unavai lable ELPIDIO HARVESTING MANAGER-BANQUET HOUSEPERSON, JEANNIE Attending Unavai lable ELPIDIO HARVESTING MANAGER-BANQUET HOUSEPERSON, JEANNIE Primary Care Unavai lable ELPIDIO HARVESTING MANAGER-BANQUET HOUSEPERSON, JEANNIE Attending Unavai lable ELPIDIO HARVESTING MANAGER-BANQUET HOUSEPERSON, JEANNIE Primary Care Unavai lable ELPIDIO HARVESTING MANAGER-BANQUET HOUSEPERSON, JEANNIE Attending Unavai lable ELPIDIO HARVESTING MANAGER-BANQUET HOUSEPERSON, JEANNIE Primary Care Unavai lable ELPIDIO HARVESTING MANAGER-BANQUET HOUSEPERSON, JEANNIE Primary Care Unavai lable OSCAR HARVESTING MANAGER - BANQUET HOUSEPERSON, MICHELLE Almanza Attending U rosy Allergies Allergy Classification Reported Allergen(s) Allergy Type Date of Onset Reaction(s) Facility (11 sources) amLODIPine Drug Allergy 3 Severe headache [facility] (2 sources) atorvastatin Drug Allergy 7 Other [facility] (2 sources) Isosorbide Drug Allergy 7 Other [facility] (1 source) amLODIPine Drug Allergy 5 [facility] (1 source) Isosorbide Drug Allergy 5 [facility] Medications Current Medications Medication Drug Class(es) Dates Sig (Normalized) Sig (Original) Albuterol (Eqv-ProAir HFA) 90 mcg/inh inhalation aerosol (6 sources) Start: 06-13-2024 take 1 dose by inhalation every four hours as needed for wheezing Albuterol (Eqv-ProAir HFA) 90 mcg/inh inhalation aerosol Dose = 2 puff(s), Inhalation, q4h, PRN as needed for wheezing, # 54 gram(s), 3 Refill(s), Pharmacy: [facility], 181.5, cm, 03/19/24 8:27:00 EST, Height, kg, 03/19/24 8:27:00 EST, Dosing Weight Start Date: 06/13/24 Status: Ordered Medication Dispense Status: Completed Quantity: 54.0 Unit: g Total Allowed Fills: 4 Fills Dispensed: 0 Start: 06-13-2024 take 1 dose by inhal ation every four hours as needed for wheezing Albuterol (Eqv-ProAir HFA) 90 mcg/inh inhalation aerosol Dose = 2 puff(s), Inhalation, q4h, PRN as needed for wheezing, # 54 gram(s), 3 Refill(s), Pharmacy: [facility], 181.5, cm, 03/19/24 8:27:00 EST, [...] wheezing, # 18 gram(s), 1 Refill(s), Pharmacy: [facility], 183, cm, 09/12/23 7:34:00 EDT, Height, kg, 09/12/23 7:34:00 EDT, Dosing Weight Start Date: 09/12/23 Status: Ordered Anoro Ellipta 62.5 mcg-25 mcg/inh inhalation powder (5 sources) Start: 09-17-2024 End: 03-11-2026 take 1 dose by inhalation once daily Anoro Ellipta 62.5 mcg-25 mcg/inh inhalation powder Dose = 1 puff(s), Inhalation, qDay, # 1 EA, 5 Refill(s), Pharmacy: [facility], 182, cm, 09/17/24 9:01:00 EDT, Height, kg, 09/17/24 9:01:00 EDT, Dosing Weight Start Date: 09/17/24 Stop Date: 03/11/26 Status: Ordered Medication Dispense Status: Completed Quantity: 1.0 Unit: EA Total Allowed Fills: 6 Fills Dispensed: 0 Start: 03-19-2024 take 1 dose by inhal ation once daily Anoro Ellipta 62.5 mcg-25 mcg/inh [...] Platelet Aggregation Inhibitor, Nonsteroidal Anti-inflammatory Drug Start: 09-17-2024 aspirin 81 mg oral delayed release tablet Dose : 81 mg = 1 tab(s), Oral, Daily, # 90 tab(s), 1 Refill(s), Pharmacy: [facility], 182, cm, 09/17/24 9:01:00 EDT, Height, kg, 09/17/24 9:01:00 EDT, Dosing Weight Start Date: 09/17/24 Status: Ordered Medication Dispense Status: Completed Quantity: 90.0 Unit: tab(s) Total Allowed Fills: 2 Fills Dispensed: 0 Start: 11-29-2023 End: 12-01-2023 aspirin 81 mg oral delayed r elease tablet Dose : 81 mg = 1 tab(s), Oral, Daily, # 90 tab(s), 3 Refill(s), Pharmacy: [facility], 183, cm, 09/12/23 7:34:00 EDT, [...] Status: Ordered take 1 tablet by rosie once daily at bedtime atorvastatin (LIPITOR) 40 [...] use, # 10.7 gram(s), 5 Refill(s), Pharmacy: [facility], History of COPD, 183, cm, [...] Start: 01-22-2023 take 1 puff(s) by mo uth twice daily Budesonide-Formoterol (Symbicort) 160-4.5 mcg/actuation HFA [...] 150 mg/12 hours oral tablet, extended release (6 sources) Start: 09-17-2024 End: 03-16-2025 BuPROPion (Eqv-Wellbutrin SR) 150 mg/12 hours oral tablet, extended release Dose : 150 mg = 1 tab(s), Oral, BID, # 180 tab(s), 1 Refill(s), Pharmacy: [facility], 182, cm, 09/17/24 9:01:00 EDT, Height, kg, 09/17/24 9:01:00 EDT, Dosing Weight Start Date: 09/17/24 Stop Date: 03/16/25 Status: Ordered Medication Dispense Status: Completed Quantity: 180.0 Unit: tab(s) Total Allowed Fills: 2 Fills Dispensed: 0 Start: 03-19-2024 End: 09-15-2024 BuPROPion (Eqv-Wellbutrin SR ) 150 mg/12 hours oral tablet, extended release Dose : 150 mg = 1 tab(s), Oral, BID, # 180 tab(s), 1 Refill(s), Pharmacy: [facility], 181.5, cm, 03/19/24 8:27:00 EST, Height, kg, 03/19/24 8:27:00 EST, Dosing Weight Start Date: 03/19/24 Stop Date: 09/15/24 Status: Ordered Quantity: 180.0 Unit: tab(s) Repeat number: 2 Start: 12-03-2023 End: 01-02-2024 BuPROPion (Eqv-Wellbutrin SR ) 150 mg/12 hours oral tablet, extended release Dose : 150 mg = 1 tab(s), Oral, BID, # 60 tab(s), 0 Refill(s), Pharmacy: [facility], 183, cm, 09/12/23 7:34:00 EDT, Height, kg, 09/12/23 7:34:00 EDT, Dosing Weight Start Date: 12/03/23 Stop Date: 01/02/24 Status: Ordered 24 hr carvedilol phosphate 20 mg extended release oral capsule (20 sources) alpha-Adrenergic Hola, beta-Adrenergic Hola Start: 09-17-2024 End: 03-16-2025 carvedilol 20 mg oral capsule, extended release Dose : 20 mg = 1 cap(s), Oral, qAM, # 90 cap(s), 1 Refill(s), Pharmacy: [facility], 182, cm, 09/17/24 9:01:00 EDT, Height, kg, 09/17/24 9:01:00 EDT, Dosing Weight Start Date: 09/17/24 Stop Date: 03/16/25 Status: Ordered Medication Dispense Status: Completed Quantity: 90.0 Unit: cap(s) Total Allowed Fills: 2 Fills Dispensed: 0 Start: 03-19-2024 End: 09-15-2024 carvedilol 20 mg oral capsul e, extended release Dose : 20 mg = 1 cap(s), Oral, qAM, # 90 cap(s), 1 Refill(s), Pharmacy: [facility], 181.5, cm, 03/19/24 8:27:00 EST, Height, kg, 03/19/24 8:27:00 EST, Dosing Weight Start Date: 03/19/24 Stop Date: 09/15/24 Status: Ordered Quantity: 90.0 Unit: cap(s) Repeat number: 2 Start: 12-03-2023 carvedilol 20 mg oral capsule, extended release Dose : 20 mg = 1 cap(s), Oral, qAM, # 30 cap(s), 0 Refill(s), Pharmacy: [facility], 183, cm, 09/12/23 7:34:00 EDT, [...] tablet (20 sources) [id number] Platelet Inhibitor Start: 09-17-2024 End: 03-16-2025 Plavix 75 mg oral tablet Dose : 75 mg = 1 tab(s), Oral, qDay, # 90 tab(s), 1 Refill(s), Pharmacy: [facility], 182, cm, 09/17/24 9:01:00 EDT, Height, kg, 09/17/24 9:01:00 EDT, Dosing Weight Start Date: 09/17/24 Stop Date: 03/16/25 Status: Ordered Medication Dispense Status: Completed Quantity: 90.0 Unit: tab(s) Total Allowed Fills: 2 Fills Dispensed: 0 Start: 12-03-2023 Plavix 75 mg o ral tablet Dose : 75 mg = 1 tab(s), Oral, qDay, # 30 tab(s), 11 Refill(s), Pharmacy: [facility], 183, cm, 09/12/23 7:34:00 EDT, [...] 0 Refill(s), 08/04/24 11:57:00 AM EDT, Pharmacy: [facility], COPD with exacerbation Wheezing on auscultation, 182, [...] 0 Refill(s), 08/11/24 11:56:00 AM EDT, Pharmacy: [facility], Acute bronchitis, bacterial Pertussis pneumonia, 182, cm, [...] 0 Refill(s), 12/29/23 4:46:00 PM EST, Pharmacy: [facility], Bronchitis, 181.51, cm, 12/19/23 15:46:00 [...] 0 Refill(s), 08/07/24 11:57:00 AM EDT, Pharmacy: [facility], Cough productive of purulent sputum, [...] 0 Refill(s), 12/29/23 4:47:00 PM EST, Pharmacy: [facility], Bronchitis, 181.51, cm, 12/19/23 15:46:00 EDT, Height, kg, 12/19/23 15:46:00 EDT, Dosing Weight Start Date: 12/19/23 Stop Date: 12/29/23 Status: Ordered 24 hr isosorbide mononitrate 30 mg extended release oral tablet (9 sources) Nitrate Vasodilator Start: 02-18-2024 isosorbide mononitrate 30 mg oral tablet, extended release Dose : 30 mg = 1 tab(s), Oral, qAM, # 90 tab(s), 1 Refill(s), Pharmacy: [facility], 181.51, cm, 12/19/23 15:46:00 EDT, Height, kg, 12/19/23 15:46:00 EDT, Dosing Weight Start Date: 02/18/24 Status: Ordered Quantity: 90.0 Unit: tab(s) Repeat number: 2 Start: 12-03-2023 isosorbide mon onitrate 30 mg oral tablet, extended release Dose : 30 mg = 1 tab(s), Oral, qAM, # 30 tab(s), 0 Refill(s), Pharmacy: [facility], 183, cm, 09/12/23 7:34:00 EDT, [...] 1 Refill(s), 09/15/24 9:32:00 AM EDT, Pharmacy: [facility], 181.5, cm, 03/19/24 8:27:00 EST, Height, kg, 03/19/24 8:27:00 EST, Dosing Weight Start Date: 03/19/24 Stop Date: 09/15/24 Status: Ordered Quantity: 90.0 Unit: tab(s) Repeat number: 2 Start: 05-22-2022 Magnesium 250 mg tablet Dose : 250 mg = 1 tab(s), Oral, qDay, 0 Refill(s) Start Date: 06/20/23 Status: Ordered montelukast 10 mg oral tablet (14 sources) Leukotriene Receptor Antagonist Start: 07-25-2024 End: 03-16-2025 Singulair 10 mg oral tablet Dose : 10 mg = 1 tab(s), Oral, qDay, # 90 tab(s), 1 Refill(s), Pharmacy: [facility], 182, cm, 09/17/24 9:01:00 EDT, Height, kg, 09/17/24 9:01:00 EDT, Dosing Weight Start Date: 09/17/24 Stop Date: 03/16/25 Status: Ordered Medication Dispense Status: Completed Quantity: 90.0 Unit: tab(s) Total Allowed Fills: 2 Fills Dispensed: 0 Start: 12-01-2023 End: 12-01-2023 Start: 12-01-2023 End: 12-01-2023 Start: 01-08-2023 End: 03-10-2024 Singulair 10 mg oral tablet Dose : 10 mg = 1 tab(s), Oral, qDay, # 90 tab(s), 1 Refill(s), Pharmacy: [facility], 183, cm, 09/12/23 7:34:00 EDT, Height, kg, [...] cessation, # 1 EA, 3 Refill(s), Pharmacy: [facility], Smokes 1 pack of cigarettes [...] see Order Comments for use directions, Pharmacy: [facility], Smokes 1 pack of cigarettes [...] 24 hours. nitroglycerin 0.4 mg sublingual tablet (14 sources) Nitrate Vasodilator Start: 03-24-2024 nitroglycerin 0.4 mg sublingual tablet 0.4 mg Dose = 1 tab(s), Sublingual, q5min, PRN for chest pain, # 25 tab(s), 3 Refill(s), Pharmacy: [facility], 181.5, cm, 03/19/24 8:27:00 EST, Height, kg, 03/19/24 8:27:00 EST, Dosing Weight Start Date: 03/24/24 Status: Ordered Medication Dispense Status: Completed Quantity: 25.0 Unit: tab(s) Total Allowed Fills: 4 Fills Dispensed: 0 Start: 11-29-2023 nitroglycerin 0.4 mg sublingual tablet 0.4 mg Dose = 1 tab(s), Sublingual, q5min, PRN for chest pain, # 25 tab(s), 3 Refill(s), Pharmacy: [facility], 183, cm, 09/12/23 7:34:00 EDT, Height, kg, 09/12/23 7:34:00 EDT, Dosing Weight Start Date: 11/29/23 Status: Ordered Start: 12-28-2021 nitroglycerin 0.4 mg sublingual tablet 0.4 mg Dose = 1 tab(s), Sublingual, q5min, PRN for chest pain, # 450 tab(s), 3 Refill(s), Pharmacy: [facility], 182.9, cm, 12/28/21 16:06:00 EST, [...] capsule (20 sources) Proton Pump Inhibitor Start: 09-17-2024 End: 03-16-2025 omeprazole 40 mg oral delayed release capsule Dose : 40 mg = 1 cap(s), Oral, qDay, # 90 cap(s), 1 Refill(s), Pharmacy: [facility], 182, cm, 09/17/24 9:01:00 EDT, Height, kg, 09/17/24 9:01:00 EDT, Dosing Weight Start Date: 09/17/24 Stop Date: 03/16/25 Status: Ordered Medication Dispense Status: Completed Quantity: 90.0 Unit: cap(s) Total Allowed Fills: 2 Fills Dispensed: 0 Start: 04-21-2024 omeprazole 40 mg oral delayed release capsule Dose : 40 mg = 1 cap(s), Oral, qDay, # 30 cap(s), 3 Refill(s), Pharmacy: [facility], 181.5, cm, 03/19/24 8:27:00 EST, Height, kg, 03/19/24 8:27:00 EST, Dosing Weight Start Date: 04/21/24 Status: Ordered Quantity: 30.0 Unit: cap(s) Repeat number: 4 Start: 12-03-2023 omeprazole 40 mg oral delayed release capsule Dose : 40 mg = 1 cap(s), Oral, qDay, # 30 cap(s), 0 Refill(s), Pharmacy: [facility], 183, cm, 09/12/23 7:34:00 EDT, Height, kg, 09/12/23 7:34:00 EDT, Dosing Weight Start Date: 12/03/23 Status: Ordered Start: 06-02-2021 take 40 mg by mouth once daily Omeprazole Active 40 MG PO DAILY May 22, 2022 12:00am OMEPRAZOLE (PRIL OSEC ORAL) Take by mouth once daily. 0 Active Comment on above: Take by mouth once d aily. TAKE [address] [facility] 30 MINUTES BEFORE MORNING MEAL ONCE DAILY [...] 2.5 mg Potassium Chloride (20 sources) Start: 09-17-2024 End: 03-16-2025 Potassium Chloride (Eqv-Klor -Con M20) 20 mEq oral tablet, extended release Dose : 20 mEq = 1 tab(s), Oral, qDay, # 90 tab(s), 1 Refill(s), Pharmacy: [facility], 182, cm, 09/17/24 9:01:00 EDT, Height, kg, 09/17/24 9:01:00 EDT, Dosing Weight Start Date: 09/17/24 Stop Date: 03/16/25 Status: Ordered Medication Dispense Status: Completed Quantity: 90.0 Unit: tab(s) Total Allowed Fills: 2 Fills Dispensed: 0 Start: 03-19-2024 End: 09-15-2024 Potassium Chloride (Eqv-Klor -Con M20) 20 mEq oral tablet, extended release Dose : 20 mEq = 1 tab(s), Oral, qDay, # 90 tab(s), 1 Refill(s), Pharmacy: [facility], 181.5, cm, 03/19/24 8:27:00 EST, Height, kg, 03/19/24 8:27:00 EST, Dosing Weight Start Date: 03/19/24 Stop Date: 09/15/24 Status: Ordered Quantity: 90.0 Unit: tab(s) Repeat number: 2 Start: 12-03-2023 Potassium Chlo ride (Xiw-Xtmt-Oez M20) 20 mEq oral tablet, extended release Dose : 20 mEq = 1 tab(s), Oral, qDay, # 30 tab(s), 0 Refill(s), Pharmacy: [facility], 183, cm, 09/12/23 7:34:00 EDT, [...] tablet (20 sources) HMG-CoA Reductase Inhibitor Start: 09-17-2024 rosuvastatin 40 mg oral tablet Dose : 40 mg = 1 tab(s), Oral, qDay, # 90 tab(s), 1 Refill(s), Pharmacy: [facility], 182, cm, 09/17/24 9:01:00 EDT, Height, kg, 09/17/24 9:01:00 EDT, Dosing Weight Start Date: 09/17/24 Status: Ordered Medication Dispense Status: Completed Quantity: 90.0 Unit: tab(s) Total Allowed Fills: 2 Fills Dispensed: 0 Start: 07-25-2024 rosuvastatin 4 0 mg oral tablet Dose : 40 mg = 1 tab(s), Oral, qDay, # 90 tab(s), 0 Refill(s), Pharmacy: [facility], 182, cm, 07/25/24 11:13:00 EDT, Height, kg, 07/25/24 11:13:00 EDT, Dosing Weight Start Date: 07/25/24 Status: Ordered Quantity: 90.0 Unit: tab(s) Repeat number: 1 Start: 03-19-2024 End: 09-15-2024 rosuvastatin 10 mg oral tabl et Dose : 10 mg = 1 tab(s), Oral, qDay, # 90 tab(s), 1 Refill(s), Pharmacy: [facility], 181.5, cm, 03/19/24 8:27:00 EST, Height, kg, 03/19/24 8:27:00 EST, Dosing Weight Start Date: 03/19/24 Stop Date: 09/15/24 Status: Ordered Quantity: 90.0 Unit: tab(s) Repeat number: 2 Start: 05-22-2022 End: 03-10-2024 rosuvastatin 10 mg oral tabl et Dose : 10 mg = 1 tab(s), Oral, qDay, # 90 tab(s), 1 Refill(s), Pharmacy: [facility], 183, cm, 09/12/23 7:34:00 EDT, Height, kg, 09/12/23 7:34:00 EDT, Dosing Weight Start Date: 09/12/23 Stop Date: 03/10/24 Status: Ordered traZODone hydrochloride 50 mg oral tablet (9 sources) Serotonin Reuptake Inhibitor Start: 06-13-2024 traZODone 50 mg oral tablet Dose : 50 mg = 1 tab(s), Oral, qHS, # 30 tab(s), 3 Refill(s), Pharmacy: [facility], 181.5, cm, 03/19/24 8:27:00 EST, Height, kg, 03/19/24 8:27:00 EST, Dosing Weight Start Date: 06/13/24 Status: Ordered Quantity: 30.0 Unit: tab(s) Repeat number: 4 Start: 12-03-2023 traZODone 50 m g oral tablet Dose : 50 mg = 1 tab(s), Oral, qHS, # 30 tab(s), 0 Refill(s), Pharmacy: [facility], 183, cm, 09/12/23 7:34:00 EDT, [...] by mouth every 4 hours as needed. [id number] 200 actuat albuter ol 0.09 mg/actuat metered [...] as instructed every 6 hours as needed. albuterol 0.833 mg/ml / ipratropium bromide 0.167 mg/ml inhalation solution (6 sources) Anticholinergic, beta2-Adrenergic Agonist Start: 03-19-2024 End: 09-15-2024 albuterol-ipratropium 2.5 mg-0.5 mg/3 mL inhalation solution Dose = 3 mL, Nebulized, QID, PRN as needed for shortness of breath or wheezing, # 540 mL, 1 Refill(s), Pharmacy: [facility], 181.5, cm, 03/19/24 8:27:00 EST, Height, kg, 03/19/24 8:27:00 EST, Dosing Weight Start Date: 03/19/24 Stop Date: 09/15/24 Status: Ordered Medication Dispense Status: Completed Quantity: 540.0 Unit: mL Total Allowed Fills: 2 Fills Dispensed: 0 Start: 09-12-2023 End: 03-10-2024 albuterol-ipratropium 2.5 mg -0.5 mg/3 mL inhalation solution Dose = 3 mL, Nebulized, QID, PRN as needed for shortness of breath or wheezing, # 90 mL, 1 Refill(s), Pharmacy: [facility], 183, cm, 09/12/23 7:34:00 EDT, Height, kg, 09/12/23 7:34:00 EDT, Dosing Weight Start Date: 09/12/23 Stop Date: 03/10/24 Status: Ordered amLODIPine 5 mg oral tablet (20 sources) Dihydropyridine Calcium Channel Hola Start: 06-15-2022 End: 06-20-2022 take 5 mg by mouth once daily Amlodipine Discontinued 5 MG PO DAILY June 15, 2022 10:40am June 20, 2022 11:29am bacitracin 0.5 unt/mg topical ointment (2 sources) Start: 12-01-2023 End: 12-01-2023 apply 1 dose topically once Topical, Once, On 12/01/23 at 0750, For 1 dose, Apply to right scalp abrasion Budesonide-Glyco pyr-Formoterol (8 sources) Corticosteroid, beta2-Adrenergic Agonist Start: 01-08-2023 End: 01-22-2023 Budesonide-Glycop yr-Formoterol (Breztri Aerosphere) 160-9-4.8 mcg/actuation HFA aerosol inhaler Discontinued 2 INH INHALATION TWICE A DAY 10.7 January 08, 2023 1:00am January 22, 2023 2:37pm Start: 01-08-2023 End: 01-22-2023 Btlihpmglf-Kudlqbxb-Zcqjnlet ol (Breztri Aerosphere) 160-9-4.8 mcg/actuation HFA aerosol inhaler Discontinued 2 INH INHALATION TWICE A DAY 10.7 January 08, 2023 12:00am January 22, 2023 1:37pm [...] Corticosteroid, beta2-Adrenergic Agonist Start: 12-01-2023 End: 12-01-2023 hydroCHLOROthiazide 25 mg oral tablet (20 sources) Thiazide Diuretic Start: 03-19-2024 End: 09-15-2024 hydroCHLOROthiazide 25 mg oral tablet Dose : 25 mg = 1 tab(s), Oral, qDay, # 90 tab(s), 1 Refill(s), Pharmacy: [facility], 181.5, cm, 03/19/24 8:27:00 EST, Height, kg, 03/19/24 8:27:00 EST, Dosing Weight Start Date: 03/19/24 Stop Date: 09/15/24 Status: Ordered Medication Dispense Status: Completed Quantity: 90.0 Unit: tab(s) Total Allowed Fills: 2 Fills Dispensed: 0 Start: 12-03-2023 hydroCHLOROthi azide 25 mg oral tablet Dose : 25 mg = 1 tab(s), Oral, qDay, # 30 tab(s), 0 Refill(s), Pharmacy: [facility], 183, cm, 09/12/23 7:34:00 EDT, Height, kg, 09/12/23 7:34:00 EDT, Dosing Weight Start Date: 12/03/23 Status: Ordered Start: 12-01-2023 End: 12-01-2023 Start: 06-20-2022 End: 05-25-2023 take 25 mg by mouth once daily Hydrochlorothiazide Active 25 MG PO DAILY May 25, 2023 9:35am iopamidol (Isovue-370) 76 % injection 100 mL [...] 12/01/23 at 0907, +++ For RR nystatin 134301 unt/ml oral suspension (11 sources) Polyene Antifungal Start: 05-22-2022 End: 06-15-2022 take 1 [tsp_us] by mouth three times daily Nystatin Discontinued 1 ML PO THREE TIMES A DAY May 22, 2022 12:00am June 15, 2022 10:09am take 1 tsp swish, gargle and swallow by mouth, 3 times daily x 1 week. OMEGA-3 ACID ETHYL ESTERS (LOVAZA ORAL) (4 sources) OMEGA-3 ACID ETH YL ESTERS (LOVAZA ORAL) Take by mouth once daily. 0 Active Comment on above: Take by mouth once d aily. ondansetron 4 mg disintegrating oral tablet (7 sources) Serotonin-3 Receptor Antagonist Start: 07-10-2022 End: 01-08-2023 take 4 mg by mouth every eight [...] Start: 12-01-2023 End: 12-01-2023 polyethylene glycol 3350 53652 mg powder for oral solution (2 sources) Osmotic Laxative Start: 12-01-2023 End: 12-01-2023 take 17 g by mouth every twenty-four hours as needed for constipation prazosin 1 mg oral capsule (9 sources) alpha-Adrenergi c Hola Start: 12-01-2023 End: 12-01-2023 Start: 12-01-2023 [...] Prednisone Discontinued 10 MG PO As Directed May 29, 2022 12:00am June 15, 2022 [...] ug by inhal ation once daily Tiotropium Perry (Spiriva Respimat) 2.5 mcg/actuation mist Active 2 INH INHALATION daily January 22, 2023 1:00am administer at approximately the same time(s) each day Start: 08-28-2022 End: 10-05-2022 take 1 puff(s) by inhalation once daily Tiotropium Perry (Spiriva Respimat) 2.5 mcg/actuation mist Discontinued 2 PUFF INHALATION DAILY August 28, 2022 12:00am October 05, 2022 8:45am Start: 08-28-2022 End: 10-05-2022 take 1 puff(s) by inhalation once daily Tiotropium Perry (Spiriva Respimat) 2.5 mcg/actuation mist Discontinued 2 PUFF INHALATION DAILY August 27, 2022 11:00pm October 05, 2022 7:45am Start: 08-28-2022 take 1 puff(s) by in halation once daily Tiotropium Perry (Spiriva Respimat) 2.5 mcg/actuation mist Active 2 [...] of unspecified site; Translations: [Myocardial infarction] Onset: 01-26-2016 12-05-2021 Chronic Anxiety disorders (20 sources) Anxiety; Translations: [Anxiety disorder, unspecified] 05-12-2022 Chronic Asthma (4 sources) Unspecified asthma, uncomplicated; Translations: [Severe persistent asthma, uncomplicated] Onset: 11-20-2016 Chronic Blindness and vision defects (3 sources) Blurring of visual image 07-25-2024 Episodic Chronic kidney disease (5 sources) Chronic kidney disease stage 3A 03-19-2024 Chronic Chronic kidney disease (2 sources) Chronic kidney disease; Translations: [Chronic kidney disease, stage 3a] Onset: 10-28-2024 Chronic obstructive pulmonary disease and bronchiectasis (20 sources) Chronic obstructive pulmonary disease, unspecified; Translations: [Emphysema, unspecified] Onset: 02-25-2016 Chronic Congestive heart failure; nonhypertensive (11 sources) Congestive heart failure; Translations: [Unspecified systolic (congestive) heart failure] 05-19-2022 Chronic Coronary atherosclerosis and other heart disease (20 sources) Atherosclerotic heart disease of [place] coronary artery with unspecified angina pectoris; Translations: [Old myocardial infarction] Onset: 10-26-2015 Chronic Coronary atherosclerosis and other heart disease (20 sources) Coronary angioplasty status; Translations: [Presence of coronary angioplasty implant and graft] Onset: 04-18-2016 05-24-2022 Episodic Disorders of lipid metabolism (20 sources) Hyperlipidemia, unspecified; Translations: [Hyperlipidemia] Onset: 02-25-2016 05-19-2022 Chronic E Codes: Fall (10 sources) Fall; Translations: [Unspecified fall, initial encounter] Onset: 12-01-2023 12-01-2023 Episodic Esophageal disorders (13 sources) Gastro-esophageal reflux disease without esophagitis; Translations: [Gastroesophageal reflux disease] Onset: 11-20-2016 05-19-2022 Chronic Essential hypertension (20 sources) Essential (primary) hypertension; Translations: [Hypertensive disorder] Onset: 04-18-2016 12-29-2021 Chronic Fluid and electrolyte disorders (7 sources) Hypokalemia; Translations: [Hypokalemia] Onset: 10-28-2024 03-19-2024 Episodic Gastroduodenal ulcer (except hemorrhage) (6 sources) H/O: gastric ulcer 06-20-2023 Episodic Headache; including migraine (3 sources) Headache 07-25-2024 Episodic Intracranial injury (4 sources) Concussion injury of body structure; Translations: [Concussion] Onset: 12-01-2023 12-01-2023 Episodic Malaise and fatigue (7 sources) Fatigue; Translations: [Other fatigue] Onset: 10-28-2024 03-19-2024 Episodic Mood disorders (11 sources) Depressive disorder; Translations: [Depression] 05-12-2022 Chronic Noninfectious gastroenteritis (7 sources) Gastroenteritis; Translations: [Noninfective gastroenteritis and colitis, unspecified] 07-18-2022 Episodic Other circulatory disease (6 sources) History of cerebrovascular accident 06-20-2023 Episodic Other connective tissue disease (5 sources) Pain in left arm; Translations: [Pain in left arm] Onset: 10-17-2022 Episodic Other connective tissue disease (2 sources) Pain in left arm; Translations: [Pain in limb] 11-06-2022 Episodic Other connective tissue disease (6 sources) Pain in lower limb 06-20-2023 Episodic Other gastrointestinal disorders (2 sources) Constipation, unspecified; Translations: [Constipation, unspecified] Onset: 07-09-2024 Episodic Other hereditary and degenerative nervous system conditions (2 sources) Restless legs syndrome; Translations: [Restless legs syndrome] Onset: 11-20-2016 Chronic Other hereditary and degenerative nervous system conditions (2 sources) Restless legs; Translations: [Restless legs syndrome] Onset: 10-02-2014 12-05-2021 Chronic Other infections; including parasitic (5 sources) Personal history of other infectious and parasitic diseases; Translations: [History of 2019 novel coronavirus disease (COVID-19)] Onset: 08-31-2021 Episodic Other lower respiratory disease (16 sources) Hemoptysis; Translations: [Hemoptysis] Onset: 08-31-2021 Episodic Other lower respiratory disease (9 sources) Dyspnea on exertion; Translations: [Shortness of breath] Onset: 08-31-2021 Episodic Other lower respiratory disease (11 sources) Snoring; Translations: [Snoring] 05-29-2022 Episodic Other lower respiratory disease (15 sources) Hemoptysis; Translations: [Hemoptysis, unspecified] 05-22-2022 Episodic Other lower respiratory disease (14 sources) Snoring; Translations: [Other respiratory abnormalities] 05-22-2022 Episodic Other lower respiratory disease (12 sources) Chronic cough; Translations: [Chronic cough] Onset: 09-05-2024 08-28-2022 Episodic Other lower respiratory disease (6 sources) History of chronic obstructive airway disease 06-20-2023 Episodic Other male genital disorders (5 sources) Male erectile dysfunction, unspecified; Translations: [Impotence of organic origin] Onset: 04-18-2016 12-05-2021 Chronic Other nervous system disorders (2 sources) Neuropathy; Translations: [Polyneuropathy, unspecified] Onset: 10-02-2014 12-05-2021 Chronic Other nervous system disorders (1 source) Disease of spinal cord, unspecified; Translations: [Disease of spinal cord, unspecified] Onset: 10-31-2024 Chronic Other nervous system disorders (1 source) Paresthesia; Translations: [Paresthesia of skin] Onset: 10-17-2022 Episodic Other nutritional; endocrine; and metabolic disorders (6 sources) Body mass index 30+ - obesity 09-12-2023 Chronic Other nutritional; endocrine; and metabolic disorders (6 sources) Hypomagnesemia; Translations: [Hypomagnesemia] Onset: 10-28-2024 03-19-2024 Chronic Other nutritional; endocrine; and metabolic disorders (1 source) Hypomagnesemia; Translations: [Hypomagnesemia] Onset: 10-28-2024 Chronic Peripheral and visceral atherosclerosis (1 source) Atherosclerosis of renal artery; Translations: [Atherosclerosis of renal artery] Onset: 06-18-2024 Chronic Residual codes; unclassified (5 sources) Sleep apnea; Translations: [Sleep apnea, unspecified] 08-28-2022 Chronic Residual codes; unclassified (1 source) Sleep apnea, unspecified; Translations: [Unspecified sleep apnea] 08-28-2022 Chronic Residual codes; unclassified (5 sources) Obstructive sleep apnea syndrome 03-19-2024 Chronic Residual codes; unclassified (8 sources) Noncompliance with medication regimen 01-13-2020 Episodic Residual codes; unclassified (11 sources) FH: Cardiovascular disease; Translations: [Family history of ischemic heart disease and other diseases of the circulatory system] 05-24-2022 Episodic Residual codes; unclassified (1 source) Increased body mass index 09-17-2024 Episodic Spondylosis; intervertebral disc disorders; other back problems (8 sources) Backache; Translations: [Dorsalgia, unspecified] Onset: 10-02-2014 12-01-2023 Episodic Substance-related disorders (20 sources) Nicotine dependence, cigarettes, uncomplicated; Translations: [Nicotine dependence, unspecified, uncomplicated] Onset: 04-18-2016 05-29-2022 Chronic Unclassified (6 sources) Patient encounter status 09-12-2023 Past or Other Problems Problem Classification Problem [...] oth drug/meds/biol subst status] Onset: 11-20-2016 Episodic Gastrointestinal hemorrhage (3 sources) Melena; Translations: [Gastrointestinal hemorrhage, unspecified] Onset: 06-19-2024 Episodic Nonspecific chest pain (20 sources) Chest pain, unspecified; Translations: [Other chest pain] Onset: 11-20-2016 05-19-2022 Episodic Other aftercare (3 sources) intermediate manager (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) use of aspirin; Translations: [Encounter for change or removal of surgical wound dressing] Onset: 08-06-2016 Episodic Other connective tissue disease (1 source) Pain in leg, unspecified; Translations: [Pain in leg, unspecified] Onset: 12-12-2023 Episodic Other fractures (1 source) Collapsed vertebra, not elsewhere classified, lumbar region, initial encounter for fracture; Translations: [Collapsed vertebra, not elsewhere classified, lumbar region, initial encounter for fracture] Onset: 06-18-2024 Episodic Other lower respiratory disease (7 sources) Other forms of dyspnea; Translations: [Other respiratory abnormalities] Onset: 03-21-2024 01-22-2023 Episodic Other lower respiratory disease (1 source) Shortness of breath; Translations: [Shortness of breath] Onset: 03-13-2024 Episodic Other non-traumatic joint disorders (2 sources) Pain in elbow; Translations: [Pain in unspecified elbow] Onset: 10-02-2014 12-05-2021 Episodic Other screening for suspected conditions (not mental disorders or infectious disease) (13 sources) Cardiovascular stress test abnormal; Translations: [Abnormal result of other cardiovascular function study] Onset: 06-18-2024 05-24-2022 Episodic Residual codes; unclassified (7 sources) Tobacco [...] Test Name Value Interpretation Reference Range Facility Pulmonary Visit Reporton Pulmonary Visit Report [facility] Pulmonary Medicine [address] [place] [address] OFFICE VISIT Date of Service: 10/31/24 MR#: [id number] Acct: [id number] Name: DELILAHDONTAECarson DURHAM Rep #: [id number] : 1975 Provider: Delores Pablo NP Age/Sex: 49/M Location: [facility] Status: Signed Assessment and Plan Assessment and Plan (1) COPD (chronic obstructive pulmonary disease): Status: Chronic Qualifiers: COPD type: emphysema Emphysema type: unspecified Qualified Code(s): J43.9 - Emphysema, unspecified Comment: Severe asthma overlap syndrome Plan: He has returned to baseline after recent exacerbation. Biologic change has occurred and he is now using Nucala. He has received 1 injection and the next injection is due next week. Await response to this therapy. He should continue with compliant use of Anoro and Arnuity. His symptoms have improved since he has restarted his inhaled therapy. He should notify this practice if he has worsening respiratory symptoms. I have discussed the importance of smoking cessation at this time. It is impacting his chronic respiratory symptoms. (2) Nicotine dependence, cigarettes, uncomplicated: Status: Chronic Plan: Complete smoking cessation is recommended and encouraged today. (3) Chronic cough: Status: Chronic Plan: Await EGD and response to Nucala and oral prednisone. Sarcoidosis and non-Aspergillus fungi are in the differential along with tracheobronchomalacia , further testing may include bronchoscopy. [...] unspecified Comment: Total eosinophil count 255.2 Plan: Nucala has been initiated. It appears that the patient had some localized response which can be expected. It is unclear whether there were systemic side effects to this biologic. I have recommended that he continue with this regimen and he should notify this practice if the symptoms continue to occur with biologic use. I am suspecting that the symptoms that he was experiencing the day that the biologic was given were due to other factors such as no dietary intake. (5) Mild sleep apnea: Status: Chronic Comment: AHI of 8.6 with 20 during REM sleep and 16 during supine sleep. Plan: The patient understands that use of supplement oxygen alone does not adequately treat sleep apnea. He has chosen not to use PAP therapy and also to increase his supplemental oxygen to 3 L/min instead of 2.5 L/min of nocturnal use. (6) Smoking greater than 40 pack years: Status: Acute Plan: Current smoker. LDCT is recommended in April 2025. He fits the criteria for the screening program. The CT was previously ordered. Plan I am concerned that the patient has suboptimal control of GERD symptoms and have recommended that he follow-up with GI at this time. I have discussed the correlation between active GI symptoms and uncontrolled asthma. Plan Details Follow Up: April 2025 (LMR) HPI HPI Comments Details: This 49-year-old male patient presents to the office today to follow up for COPD. He is ambulatory and currently on room air. He has not had recent respiratory illness requiring prednisone or antibiotics since the last time he was evaluated at this practice and received a oral prednisone burst. He reports that it was helpful to him. He did use Mucinex during that illness and it did not help with his chest symptoms as well. He did complete a colonoscopy but has not had an EGD. He reports that he struggles with acid reflux symptoms to the point that he has to induce vomiting. Shortness of breath will occur with exposure to cold air. He reports that this has been occurring especially in the morning since the weather has changed. A cough is present with yellow sputum. He reports that he is always wheezing . He indicates that he has chest tightness. The recommendation was for him to utilize 2-1/2 L of supplemental oxygen at night but he has increased it to 3 L to feel the flow and reports that this does improve his respiratory symptoms in the morning. He reports that he has been using Anoro and Arnuity. He does report rinsing his mouth out after each use. He denies any medication side effect such as sore throat or thrush. He is also compliant with Singulair daily. He is using albuterol rescue inhaler 3-4 times throughout the day, he does use a nebulizer with budesonide and albuterol as well. He did receive his first Nucala injection. He reported that it felt like a bee sting . He had some re (more content not included)... Normal [facility] .GFRon 10-28-2024 Estimated Glomerular Filtration Rate 86 ml/min/1.73sqm Normal [facility] Comment on above: Result Comment: Stages [...] calculate the eGFR results. Performed By: #### G , LIPID, CMP, MG #### [address] [address] #### TESTO #### [address] [address] CMPon 10-28-2024 Albumin Level 3.8 G/dL Normal 3.5-5.0 [facility] Comment on above: Performed By: #### G FR, LIPID, CMP, MG #### [place] [address] #### TESTO #### [address] [address] Albumin/Globulin [Mass ratio] 1.1 {ratio} Normal 1.1-2.5 [facility] Comment on above: Performed By: #### G FR, LIPID, CMP, MG #### [place] [address] #### TESTO #### [address] [address] ALP [Catalytic activity/Vol] 119 U/L Normal 40-135 [facility] Comment on above: Performed By: #### G FR, LIPID, CMP, MG #### [place] [address] #### TESTO #### [address] [address] ALT [Catalytic activity/Vol] 25 U/L Normal 16-63 [facility] Comment on above: Performed By: #### G FR, LIPID, CMP, MG #### [address] [address] #### TESTO #### [address] [address] AST [Catalytic activity/Vol] 14 U/L Normal 10-40 [facility] Comment on above: Performed By: #### G FR, LIPID, CMP, MG #### [address] [address] #### TESTO #### [address] [address] Bili Total 0.6 mg/dL Normal 0.2-1.0 [facility] Comment on above: Result Comment: Use of this assay is not recommended for patients undergoing treatment with eltrombopag due to the potential for falsely elevated results. Performed By: #### G FR, LIPID, CMP, MG #### [place] [address] #### TESTO #### [place] [address] BUN/Creatinine Ratio 8 ratio Normal 7-27 [facility] Comment on above: Performed By: #### G FR, LIPID, CMP, MG #### [place] [address] #### TESTO #### [place] [address] Calcium [Mass/Vol] 9.7 mg/dL Normal 8.4-10.2 [facility] Comment on above: Performed By: #### G FR, LIPID, CMP, MG #### [place] [address] #### TESTO #### [place] [id number] Chloride [Moles/Vol] 105 mmol/L Normal 98-107 [facility] Comment on above: Performed By: #### G FR, LIPID, CMP, MG #### [place] [address] #### TESTO #### [address] [address] CO2 [Moles/Vol] 30 mmol/L High 22-29 [facility] Comment on above: Performed By: #### G FR, LIPID, CMP, MG #### [place] [address] #### TESTO #### [address] [address] Creatinine [Mass/Vol] 1.06 mg/dL Normal 0.67-1.17 [facility] Comment on above: Performed By: #### G FR, LIPID, CMP, MG #### [address] [address] #### TESTO #### [address] [address] Electrolyte Balance 8.0 mEq/L Normal 4.0-15.0 [facility] Comment on above: Performed By: #### G FR, LIPID, CMP, MG #### [address] [address] #### TESTO #### [address] [address] Globulin 3.6 G/dL Normal 2.7-4.4 [facility] Comment on above: Performed By: #### G FR, LIPID, CMP, MG #### [address] [address] #### TESTO #### [address] [address] Glucose [Mass/Vol] 119 mg/dL High 70-105 [facility] Comment on above: Performed By: #### G FR, LIPID, CMP, MG #### [address] [address] #### TESTO #### [address] [address] Potassium [Moles/Vol] 4.3 mmol/L Normal 3.5-5.1 [facility] Comment on above: Performed By: #### G FR, LIPID, CMP, MG #### [address] [address] #### TESTO #### [address] [address] Sodium [Moles/Vol] 143 mmol/L Normal 136-145 [facility] Comment on above: Performed By: #### G FR, LIPID, CMP, MG #### [address] [address] #### TESTO #### [address] [address] Total Protein 7.4 G/dL Normal 6.4-8.2 [facility] Comment on above: Performed By: #### G FR, LIPID, CMP, MG #### [address] [address] #### TESTO #### [facility] [address] [place] [address] Urea nitrogen [Mass/Vol] 8 mg/dL Normal 7-18 [facility] Comment on above: Performed By: #### G FR, LIPID, CMP, MG #### [place] [address] [place], [place] [address] #### TESTO #### [facility] [address] [place] [id number] LABORATORYOrdered By: SYSTEM SYSTEM on 10-28-2024 Albumin BCP dye [Mass/Vol] 3.8 G/dL Normal 3 .5 - 5.0 G/dL AO ADM SS Albumin/Globulin [Mass ratio] 1.1 {ratio} Normal 1.1 - 2.5 ratio AO ADM SS ALP [Catalytic activity/Vol] 119 U/L Normal 40 - 135 U/L AO ADM SS ALT With P-5'-P [Catalytic activity/Vol] 25 U/L Normal 16 - 63 U/L AO ADM SS AST With P-5'-P [Catalytic activity/Vol] 14 U/L Normal 10 - 40 U/L AO ADM SS Bilirubin [Mass/Vol] 0.6 mg/dL Normal 0.2 - 1 .0 mg/dL AO ADM SS Comment on above: Interpretive Data: U se of this assay is not recommended for patients undergoing treatment with eltrombopag due to the potential for falsely elevated results. Calcium [Mass/Vol] 9.7 mg/dL Normal 8.4 - 10. 2 mg/dL AO ADM SS Chloride [Moles/Vol] 105 mmol/L Normal 98 - 10 7 mmol/L AO ADM SS CO2 [Moles/Vol] 30 mmol/L High 22 - 29 mmol/L AO ADM SS Creatinine [Mass/Vol] 1.06 mg/dL Normal 0.67 - 1.17 mg/dL AO ADM SS Electrolyte Balance 8.0 mEq/L Normal 4.0 - 15 .0 mEq/L AO ADM SS Estimated Glomerular Filtration Rate 86 ml/min/1.73sqm Invalid Interpretation Code AO Chemistry S [...] 4.4 G/dL AO ADM SS Glucose [Mass/Vol] 119 mg/dL High 70 - 105 mg/dL AO ADM SS Magnesium [Mass/Vol] 2.0 mg/dL Normal 1.8 - 2 .4 mg/dL AO ADM SS Potassium [Moles/Vol] 4.3 mmol/L Normal 3.5 - 5.1 mmol/L AO ADM SS Protein [Mass/Vol] 7.4 G/dL Normal 6.4 - 8.2 G/dL AO ADM SS Sodium [Moles/Vol] 143 mmol/L Normal 136 - 145 mmol/L AO ADM SS Testosterone [Mass/Vol] 440.88 ng/dL Normal 86.9 8 - 780.10 ng/dL AH ADM SS Comment on above: Interpretive Data: N ormal Reference Ranges for Females: Female Premenopause [id number] ng/dL Female Postmenopause [id number]<7.00-45.62 ng/dL Urea nitrogen [Mass/Vol] 8 mg/dL Normal 7 - 18 mg/dL AO ADM SS Urea nitrogen/Creatinine [Mass ratio] 8 ratio Normal 7 - 27 ratio AO ADM SS LABORATORYOrdered By: Nazia lCifford on 10-28-2024 Cholesterol [Mass/Vol] 252 mg/dL High 0 - 2 00 mg/dL AO ADM SS Comment on above: Interpretive Data: C holesterol Reference Interval: Less than 200 Desirable 200-239 Borderline high risk 240 and above High risk Cholesterol in HDL [Mass/Vol] 30 mg/dL Low 40 - 60 mg/dL AO ADM SS Cholesterol in LDL [Mass/Vol] 159 mg/dL High 0 - 130 mg/dL AO ADM SS Triglyceride [Mass/Vol] 317 mg/dL High 0 - 150 mg/dL AO ADM SS Comment on above: Interpretive Data: T riglyceride Reference Interval: Less than 150 Normal 150-199 Borderline high risk 200-499 High risk 500 or higher Very high risk LIPIDon 10-28-2024 Cholesterol [Mass/Vol] 252 mg/dL High 0-200 [facility] Comment on above: Result Comment: Chol esterol Reference Interval: Less than 200 Desirable 200-239 Borderline high risk 240 and above High risk Performed By: #### G FR, LIPID, CMP, MG #### [address] [address] #### TESTO #### [address] [address] Cholesterol in HDL [Mass/Vol] 30 mg/dL Low 40-60 [facility] Comment on above: Performed By: #### G FR, LIPID, CMP, MG #### [address] [address] #### TESTO #### [address] [address] Cholesterol in LDL [Mass/Vol] 159 mg/dL High 0-130 [facility] Comment on above: Performed By: #### G FR, LIPID, CMP, MG #### [address] [address] #### TESTO #### [address] [address] Triglyceride [Mass/Vol] 317 mg/dL High 0-150 [facility] Comment on above: Result Comment: Trig lyceride Reference Interval: Less than 150 Normal 150-199 Borderline high risk 200-499 High risk 500 or higher Very high risk Performed By: #### G FR, LIPID, CMP, MG #### [address] [address] #### TESTO #### [address] [address] MGon 10-28-2024 Magnesium [Mass/Vol] 2.0 mg/dL Normal 1.8-2.4 [facility] Comment on above: Performed By: #### G FR, LIPID, CMP, MG #### [address] [place], [place] [address] #### TESTO #### [address] [address] TESTOon 10-28-2024 Testosterone Lvl 440.88 ng/dL Normal 86.98-780. 10 [facility] Comment on above: Result Comment: Norm al Reference Ranges for Females: Female Premenopause Age 21-60 9.01-47.94 ng/dL Female Postmenopause Age 45-89 <7.00-45.62 ng/dL Performed By: #### G FR, LIPID, CMP, MG #### [address] [address] #### TESTO #### [address] [address] Office Visit Reporton 2024 Office Visit Report [facility] [address] [place] [address] OFFICE VISIT Date of Service: 10/08/24 MR#: [id number] Acct: [id number] Patient: DONTAE PRARA Rep #: [id number] : 1975 Provider: JOEL Fuchs Age/Sex: 49/M Location[place] [facility] Status: Signed Intake Vital Signs 09/29/24 08:34 10/08/24 09:14 10/08/24 09:50 10/08/24 10:27 10/08/24 11:00 Height 6 ft 6 ft 6 ft 6 ft 6 ft Weight: 222 lb 223 lb BMI 30.1 30.2 BP 117/72 114/73 109/73 106/71 Blood Pressure Location Rt brachial Lt brachial Lt brachial Lt brachial Position Sitting Sitting Sitting Sitting Respiration 18 18 18 18 Pulse 76 76 64 70 Pulse Source Monitor Monitor Monitor Monitor Temp 97.3 F L 97.4 F L 97.4 F L 97.4 F L Temp Source Temporal Temporal Temporal Temporal Pulse Oximetry (%) 96 96 97 97 Oxygen Delivery Method room air room air room air room air Intake Visit Reasons: Asthma- Severe Persistent Asthma , Injection administration 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 Required: No Accompanied by: Self Allergies isosorbide Allergy (Severe, Verified 10/08/24 09:24) Severe headaches amlodipine Adverse Reaction (Intermediate, Verified 10/08/24 09:24) Severe headache Medications ???Medication ???Instructions ???Recorded ???Confirmed ???Type albuterol sulfate 2.5 mg/3 mL 2.5 mg inhalation Q4H PRN 05/22/22 10/08/24 History (0.083 %) solution for nebulization shortness of breath or wheezing aspirin 81 mg tablet,delayed 81 mg PO DAILY 05/22/22 10/08/24 H istory release magnesium oxide 250 mg PO DAILY 05/22/22 10/08/24 History omeprazole 40 mg capsule,delayed 40 mg PO DAILY 05/22/22 10/08/24 H istory release carvedilol phosphate 20 mg 20 mg PO DAILY 06/15/22 10/08/24 H istory capsule,ext. hr multiphase potassium chloride 20 mEq 20 meq PO DAILY 01/24/23 10/08/24 History tablet,extended release(part/cryst) hydrochlorothiazide 25 mg tablet 25 mg PO DAILY #30 tabs 05/25/23 0 10/08/24 Rx nitroglycerin 0.4 mg sublingual 0.4 mg sublingual Q5-15M PRN chest 09/17/23 10/08/24 History tablet pain ranolazine 500 mg tablet,extended 500 mg PO BID #60 tabs 09/17/23 0 10/08/24 Rx release,12 hr bupropion HCl (smoking deter) 150 150 mg PO BID #60 tabs 11/06/23 0 10/08/24 Rx mg tablet,12 hr sustained-release(smo usha deterrent) clopidogrel 75 mg tablet 75 mg PO DAILY #90 tabs 11/08/23 0 10/08/24 Rx prazosin 1 mg capsule 1 mg PO QHS #30 caps 04/22/24 08/ Rx albuterol sulfate 90 mcg/actuation 2 puff inhalation Q4H PRN 10/08/24 Rx aerosol inhaler shortness of breath or wheezing #8.5 grams budesonide 0.5 mg/2 mL suspension 0.5 mg (2 mL) inhalation Q12H 10/08/24 Rx for nebulization BREATHING #60 mL fluticasone furoate 200 1 inh inhalation Q24H #30 ea 09/0510/08/24 Rx mcg/actuation blister powder for inhalation (Arnuity Ellipta) ipratropium 0.5 mg-albuterol 3 mg 3 ml inhalation Q6H BREATHING #18 0 09/05/24 10/08/24 Rx (2.5 mg base)/3 mL nebulization mL soln mepolizumab 100 mg/mL subcutaneous 100 mg subcut Q4W #1 mL 09/05/24 10/08/24 Rx auto-injector (Nucala) montelukast 10 mg tablet 10 mg PO QPM #90 tabs 09/05/24 Rx prednisone 10 mg tablet 10 mg PO QDAY #30 tabs 09/05/24 Rx umeclidinium 62.5 mcg-vilanterol 1 inh inhalation Q24H #60 ea 09/0510/08/24 Rx 25 mcg/actuation powdr for inhalation (Anoro Ellipta) rosuvastatin 40 mg tablet 40 mg PO QDAY 10/08/24 10/08/24 [facility] Office Procedures Asthma Injection Procedure: Details:: Patient presented for Nucala injection. Patient tolerated treatment well. The patient was monitored for 120 minutes after treatment. Patient shows no signs of adverse reaction. Reviewed signs and symptoms of reaction. Patient instructed to call the office with new or worsening symptoms. Patient advised to report to the emergency department during after hours if necessary. Patient departed from the office with no signs of distress. Patient provided via specialty pharmacy. Injections Procedure performed by: Raina Briggs Site of injection: Sub-Q (right arm) Medication Given: Yes Is this a patient provided medication?: Yes Office Meds Nucala 100 mg subcutaneous solution Performing Provider: Frances Fuchs BIOLOGICAL TECHNICAL OFFICER, BIOLOGICAL TECHNICAL OFFICER-C Performing Location: [facility] Administered by: Raina Briggs LPN on 10/08/24 09:28 Dose Route Admin Location Dispensed Lot Number Expiration Date [facility] Man ufacturer 100 mg subcut Right arm 1 ea AS6S 11/18/26 9874-4343-16 MIKEDayron NINI Mel NDIAYE Assessment and Plan Assessment and Plan Orders: Orders Nucala Injection Today J45.50 - Severe persistent asthma, uncomplicated 10/08/24 1544 Date (more content not included)... Normal [facility] Cerv Spine 4 or 5 Viewson Cerv Spine 4 or 5 Views [facility] [address] [place] [address] Cerv Spine 4 or 5 Views MR#: [id number] Acct: [id number] Name: DONTAE PARRA Rep #: [id number] : 1975 M 49 From: Joseph Morillo MD PCP: JOEL CANTOR Status: [facility] Study: Cerv Spine 4 or 5 Views Date of Exam: 09/29/24 Exam# [id number] Ordering Dr: Macrina Donaldson PROCEDURE: CERV SPINE 4 OR 5 VIEWS 09/29/2024 REASON FOR EXAM: NECK PAIN TECHNIQUE: CERV SPINE 4 OR 5 VIEWS COMPARISON: CTA neck 06/16/2022. FINDINGS: No evidence of fracture or subluxation. Vertebral body heights are preserved. No abnormal movement elicited on flexion and extension maneuvers. Mild multilevel spondylotic changes with endplate sclerosis and small anterior endplate osteophytes, and hypertrophic facet arthropathy. No prevertebral soft tissue swelling. Carotid artery atherosclerotic calcifications in the neck laterally. RAD/Cerv Spine 4 or 5 Views IMPRESSION: No evidence of fracture or malalignment. Mild spondylotic changes. Reading Location: [id number] CC: BIOLOGICAL TECHNICAL OFFICER-C JEANNIE HERNANDEZ; BERTO Austin Administrative Assistant Data Entry: Signed Normal [facility] L/S Spine Min 4 Viewson 09-19 L/S Spine Min 4 Views [facility] Services [address] [place] [address] L/S Spine Min 4 Views MR#: [id number] Acct: [id number] Name: DONTAE PARRA Rep #: [id number] : 1975 M 49 From: Jenifer Padgett PCP: JOEL CANTOR Status: DEP [facility] Study: L/S Spine Min 4 Views Date of Exam: 09/29/24 Exam# [id number] Ordering Dr: Macrina Donaldson PROCEDURE: L/S SPINE MIN 4 VIEWS 09/29/2024 REASON FOR EXAM: BACK PAIN TECHNIQUE: L/S SPINE MIN 4 VIEWS COMPARISON: None FINDINGS: Four views of the lumbosacral spine were obtained and demonstrate very mild diffuse osteopenia of the osseous structures are There are 5 lumbar-type vertebral bodies below the last set of paired ribs. There is a decrease in height of the anterior aspect of the L1 vertebral body by a proximally 15%. This most likely represents an osteoporotic compression fracture. The age of which is indeterminate. There is slight increased sclerosis of the anterior superior endplate of the L4 vertebral body. Remaining vertebral heights and alignment are within normal limits. There is no spondylolisthesis. Mild spondylosis is noted involving the lumbar spine. The intervertebral disc spaces appear to be well-maintained with the exception of very slight narrowing of the posterior aspect of the L1-L2 and L5-S1 disc space. There appears to be minimal bony encroachment on the neural foramina at these levels. No sacral fractures are seen. A moderate amount of stool and gas is present throughout a nondistended colon. Psoas muscles are well outlined. Renal outlines are partially obscured by overlying bowel gas and fecal material within the colon. RAD/L/S Spine Min 4 Views IMPRESSION: Slight decrease in height of the L1 vertebral body as described above. This may be related to an osteoporotic compression fracture. Degenerative disease involving the L1-L2 and L5-S1 discs. Reading Location: [facility] CC: JOEL HERNANDEZ; BERTO Austin Administrative Assistant Data Entry: Signed Normal [facility] Orthopedic Visit Reporton Orthopedic Visit Report [facility] [address] [place] [address] [place] [address] OFFICE VISIT Date of Service: 09/29/24 MR#: [id number] Acct: [id number] Name: DONTAE PARRA Rep #: [id number] : 1975 Provider: BERTO Austin Age/Sex: 49/M Location: [facility] Status: Signed Intake Vital Signs 09/05/24 05:07 09/25/24 09:11 09/29/24 08:34 Height 6 ft 6 ft 6 ft Weight: 226 lb 222 lb 222 lb BMI 30.6 30.1 30.1 BP 119/75 115/78 Blood Pressure Location Rt brachial Lt brachial Position Sitting Sitting Respiration 16 16 Pulse 75 71 Pulse Source Monitor NIBP Temp 97.5 F L Pulse Oximetry (%) 97 Oxygen Delivery Method room air Intake Visit Reasons: LUMABR SPINE Chief Complaint: lumbar spine Accompanied by: Self Is patient in pain?: Yes (lumbar spine) Pain scale (1-10): 7 Allergies isosorbide Allergy (Severe, Verified 09/29/24 08:35) Severe headaches amlodipine Adverse Reaction (Intermediate, Verified 09/29/24 08:35) Severe headache Medications ???Medication ???Instructions ???Recorded ???Confirmed ???Type albuterol sulfate 2.5 mg/3 mL 2.5 mg inhalation Q4H PRN 05/22/22 09/29/24 History (0.083 %) solution for nebulization shortness of breath or wheezing aspirin 81 mg tablet,delayed 81 mg PO DAILY 05/22/22 09/29/24 H istory release magnesium oxide 250 mg PO DAILY 05/22/22 09/29/24 History omeprazole 40 mg capsule,delayed 40 mg PO DAILY 05/22/22 09/29/24 H istory release rosuvastatin 10 mg tablet 10 mg PO DAILY 05/22/22 09/29/24 H istory carvedilol phosphate 20 mg 20 mg PO DAILY 06/15/22 09/29/24 H istory capsule,ext. hr multiphase potassium chloride 20 mEq 20 meq PO DAILY 01/24/23 09/29/24 History tablet,extended release(part/cryst) hydrochlorothiazide 25 mg tablet 25 mg PO DAILY #30 tabs 05/25/23 0 09/29/24 Rx nitroglycerin 0.4 mg sublingual 0.4 mg sublingual Q5-15M PRN chest 09/17/23 09/29/24 History tablet pain ranolazine 500 mg tablet,extended 500 mg PO BID #60 tabs 09/17/23 0 09/29/24 Rx release,12 hr bupropion HCl (smoking deter) 150 150 mg PO BID #60 tabs 11/06/23 0 09/29/24 Rx mg tablet,12 hr sustained-release(smo usha deterrent) clopidogrel 75 mg tablet 75 mg PO DAILY #90 tabs 11/08/23 0 09/29/24 Rx prazosin 1 mg capsule 1 mg PO QHS #30 caps 04/22/2409/19 Rx albuterol sulfate 90 mcg/actuation 2 puff inhalation Q4H PRN 09/29/24 Rx aerosol inhaler shortness of breath or wheezing #8.5 grams budesonide 0.5 mg/2 mL suspension 0.5 mg (2 mL) inhalation Q12H 09/29/24 Rx for nebulization BREATHING #60 mL fluticasone furoate 200 1 inh inhalation Q24H #30 ea 09/0509/29/24 Rx mcg/actuation blister powder for inhalation (Arnuity Ellipta) ipratropium 0.5 mg-albuterol 3 mg 3 ml inhalation Q6H BREATHING #18 0 09/05/24 09/29/24 Rx (2.5 mg base)/3 mL nebulization mL soln mepolizumab 100 mg/mL subcutaneous 100 mg subcut Q4W #1 mL 09/05/24 09/29/24 Rx auto-injector (Nucala) montelukast 10 mg tablet 10 mg PO QPM #90 tabs 09/05/2401/13 Rx prednisone 10 mg tablet 10 mg PO QDAY #30 tabs 09/05/24 Rx umeclidinium 62.5 mcg-vilanterol 1 inh inhalation Q24H #60 ea 09/0509/29/24 Rx 25 mcg/actuation powdr for inhalation (Anoro Ellipta) [facility] Medical History Wears dentures Wears glasses Arthritis High cholesterol Injury of head and neck Injury of back History of IBS Gastric reflux Smoker CPAP (continuous positive airway pressure) dependence Sleep apnea On home oxygen therapy Emphysema, unspecified Shortness of breath on exertion Cardiology follow-up encounter History of stress test History of irregular heartbeat RLQ abdominal pain GI bleed Mild sleep apnea Chronic cough Nicotine dependence Family history of ischemic heart disease and other diseases of the circulatory system Presence of stent in coronary artery ( 02/01/22) Old myocardial infarction Primary snoring Nicotine addiction Hemoptysis Nicotine dependence, cigarettes, uncomplicated Abdominal distension (gaseous) Unspecified systolic (congestive) heart failure Hyperlipidemia Atherosclerosis of coronary artery of [place] heart without angina pectoris Chest pain Noncompliance with medications Essential hypertension Stroke Pneumonia GERD (gastroesophageal reflux disease) COPD (chronic obstructive pulmonary disease) Depression Anxiety Asthma Emphysema, unspecified CAD (coronary artery disease) Encounter for 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 Normal [facility] Cardiology Visit Reporton Cardiology Visit Report [facility] [address] [place] [address] OFFICE VISIT Date of Service: 09/25/24 MR#: [id number] Acct: [id number] Name: DONTAE PARRA Rep #: [id number] : 1975 Provider: JOEL delcid Age/Sex: 49/M Location: [facility] Status: Signed HPI HPI History of Present Illness Details: This is a 49-year-old male who presents the office today for [...] COPD, tobacco abuse, and PTSD. He acknowledges random midsternal and left-sided chest discomfort. He describes this as a sharp and pressure sensation. This occurs a few days per week. There is no specific aggravating factor. This can occur with activity and occur at rest. This improves with position changes and at times nitroglycerin. He denies palpitations or bilateral lower extreme edema. He continues with shortness of breath at rest, shortness with activity, and orthopnea. He denies PND. He denies lightheadedness, dizziness, near-syncope, or weakness. He continues with fatigue that is unchanged from previous. 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 Required: No Is patient in pain?: No Allergies isosorbide Allergy (Severe, Verified 09/25/24 09:14) Severe headaches amlodipine Adverse Reaction (Intermediate, Verified 09/25/24 09:14) Severe headache Medications ???Medication ???Instructions ???Recorded ???Confirmed ???Type albuterol sulfate 2.5 mg/3 mL 2.5 mg inhalation Q4H PRN 05/22/22 09/25/24 History (0.083 %) solution for nebulization shortness of breath or wheezing aspirin 81 mg tablet,delayed 81 mg PO DAILY 05/22/22 09/25/24 H istory release magnesium oxide 250 mg PO DAILY 05/22/22 09/25/24 History omeprazole 40 mg capsule,delayed 40 mg PO DAILY 05/22/22 09/25/24 H istory release rosuvastatin 10 mg tablet 10 mg PO DAILY 05/22/22 09/25/24 H istory carvedilol phosphate 20 mg 20 mg PO DAILY 06/15/22 09/25/24 H istory capsule,[id number] hr multiphase potassium chloride 20 mEq 20 meq PO DAILY 01/24/23 09/25/24 History tablet,extended release(part/cryst) hydrochlorothiazide 25 mg tablet 25 mg PO DAILY #30 tabs 05/25/23 0 09/25/24 Rx nitroglycerin 0.4 mg sublingual 0.4 mg sublingual Q5-15M PRN chest 09/17/23 09/25/24 History tablet pain ranolazine 500 mg tablet,extended 500 mg PO BID #60 tabs 09/17/23 0 09/25/24 Rx release,12 hr bupropion HCl (smoking deter) 150 150 mg PO BID #60 tabs 11/06/23 0 09/25/24 Rx mg tablet,12 hr sustained-release(smo usha deterrent) clopidogrel 75 mg tablet 75 mg PO DAILY #90 tabs 11/08/23 0 09/25/24 Rx prazosin 1 mg capsule 1 mg PO QHS #30 caps 04/22/24 0809/12 Rx albuterol sulfate 90 mcg/actuation 2 puff inhalation Q4H PRN 09/25/24 Rx aerosol inhaler shortness of breath or wheezing #8.5 grams budesonide 0.5 mg/2 mL suspension 0.5 mg (2 mL) inhalation Q12H 09/25/24 Rx for nebulization BREATHING #60 mL fluticasone furoate 200 1 inh inhalation Q24H #30 ea 09/0509/25/24 Rx mcg/actuation blister powder for inhalation (Arnuity Ellipta) ipratropium 0.5 mg-albuterol 3 mg 3 ml inhalation Q6H BREATHING #18 0 09/05/24 09/25/24 Rx (2.5 mg base)/3 mL nebulization mL soln mepolizumab 100 mg/mL subcutaneous 100 mg subcut Q4W #1 mL 09/05/24 09/25/24 Rx auto-injector (Nucala) montelukast 10 mg tablet 10 mg PO QPM #90 tabs 09/05/2409/12 Rx prednisone 10 mg tablet 10 mg PO QDAY #30 tabs 09/05/24 Rx umeclidinium 62.5 mcg-vilanterol 1 inh inhalation Q24H #60 ea 09/0509/25/24 Rx 25 mcg/actuation powdr for inhalation (Anoro Ellipta) Ejection fraction %: 55 Have you fallen in the past year?: Yes [facility] Medical History Wears dentures Wears glasses Arthritis High cholesterol Injury of head and neck Injury of back History of IBS Gastric reflux Smoker CPAP (continuous positive airway pressure) dependence Sleep apnea On home oxygen therapy Emphysema, unspecified (more content not included)... Normal [facility] Pulmonary Visit Reporton Pulmonary Visit Report [facility] [address] [place] [address] OFFICE VISIT Date of Service: 09/05/24 MR#: [id number] Acct: [id number] Name: DONTAE PARRA Rep #: [id number] : 1975 Provider: Delores Pablo NP Age/Sex: 49/M Location[place] [facility] Status: Signed Assessment and Plan Assessment and Plan (1) COPD (chronic obstructive pulmonary disease): Status: Chronic Qualifiers: COPD type: emphysema Emphysema type: unspecified Qualified Code(s): J43.9 - Emphysema, unspecified Comment: Severe asthma overlap syndrome Plan: Exacerbating, uncontrolled. Patient should begin a course of oral prednisone. Biologic change is warranted. I do believe that he is exacerbating due to environmental factors and gap in inhaled therapy. The patient has been prescribed with his maintenance and as needed inhalers and solutions. He should continue with compliant use of our Anoro and Arnuity. Even without a gap in this maintenance therapy the patient was suboptimally controlled. He is to follow-up in 8 weeks. (2) Nicotine dependence, cigarettes, uncomplicated: Status: Chronic Plan: Complete smoking cessation is recommended and encouraged today. Recent CT imaging did not show evidence of nodules or masses. There is atelectasis present and I believe that this could be due to the poorly controlled asthma/COPD lung disease that is present. (3) Chronic cough: Status: Chronic Plan: Await EGD and response to Nucala and oral prednisone. Sarcoidosis and non-Aspergillus fungi are in the differential along with tracheobronchomalacia , further testing may include bronchoscopy. [...] Fasenra has helped improve cough noticed by others but it did not maintain the same consistent benefit until the next dosing was needed. I have recommended that he transition to Nucala at this time. The patient is agreeable to this. He understands that he will need to be monitored for 2 hours at this practice with his first injection. Nucala will be a monthly injection. (5) Mild sleep apnea: Status: Chronic Comment: AHI of 8.6 with 20 during REM sleep and 16 during supine sleep. Plan: The patient understands that use of supplement oxygen alone does not adequately treat sleep apnea. He has chosen not to use PAP therapy. 2.5 L of supplemental oxygen is being used at night. (6) Smoking greater than 40 pack years: Status: Acute Plan: Current smoker. LDCT is recommended in April 2025. He fits the criteria for the screening program. Orders: Orders NIOX Today R05.3 - Chronic cough Low Dose CT Lung Screening 04/20/25 F17.210 - Nicotine dependence, cigarettes, uncomplicated Medications: New albuterol sulfate 90 mcg/actuation 2 puffs inhalation Q4H PRN 8.5 grams 0RF shortness of breath or wheezing R05.3 - Chronic cough budesonide 0.5 mg (2 mL) inhalation Q12H 60 mL 11RF BREATHING R05.3 - Chronic cough ipratropium-albuterol 0.5 mg-3 mg(2.5 mg base)/3 mL 1.5 mL inhalation Q6H 180 mL 5RF BREATHING R05.3 - Chronic cough mepolizumab (Nucala) 100 mg subcut Q4W 1 mL 11RF R05.3 - Chronic cough prednisone take 4 tabs for three days, then 3 tabs for three days, then 2 tabs for three days, then 1 tab for 3 days 10 mg PO QDAY 30 tabs 0RF guaifenesin ER (Mucinex) 1,200 mg PO BID 60 tabs 3RF R05.9 - Cough, unspecified Changed From ipratropium-albuterol 0.5 mg-3 mg(2.5 mg base)/3 mL 1.5 mL inhalation Q6H 180 mL 5RF BREATHING R05.3 - Chronic cough To ipratropium-albuterol 0.5 mg-3 mg(2.5 mg base)/3 mL 3 mL inhalation Q6H 180 mL 5RF BREATHING R05.3 - Chronic cough Refilled fluticasone furoate 200 mcg/actuation (Arnuity Ellipta) 1 inh inhalation Q24H 30 ea 11RF R05.3 - Chronic cough umeclidinium-vilanter ol 62.5-25 mcg/actuation (Anoro Ellipta) 1 inh inhalation Q24H 60 ea 5RF R05.3 - Chronic cough montelukast 10 mg PO QPM 90 tabs 3RF R05.3 - Chronic cough umeclidinium-vilanter ol 62.5-25 mcg/actuation (Anoro Ellipta) 1 inh inhalation Q24H 60 ea 5RF R05.3 - Chronic cough montelukast 10 mg PO QPM 90 tabs 3RF R05.3 - Chronic cough fluticasone furoate 200 mcg/actuation (Arnuity Ellipta) 1 inh inhalation Q24H 30 ea 11RF R05.3 - Chronic cough albuterol sulfate 90 mcg/actuation 2 puffs inhalation Q4H PRN 8.5 grams 0RF shortness of breath or wheezing R05.3 - Chronic cough budesonide 0.5 mg (2 mL) inhalation Q12H 6 (more content not included)... Normal [facility] Colonoscopy Reporton 025 Colonoscopy Report [facility] Medical Records Department [address] [place] [address] Colonoscopy Report MR#: [id number] Acct: [id number] Name: DONTAE PARRA Rep #: [id number] : 1975 49 From: Calvin Jasso DO PCP: JOEL CANTOR Status:[facility] Patient Name: Dontae Parra Procedure Date: 09/04/2024 6:59 AM Date of : 1975 Age: 49 Procedure: Colonoscopy Indications: Hematochezia Providers: Calvin Jasso DO Referring MD: Joel Cantor Medicines: Monitored Anesthesia Care Patient Profile: This is a 49 year old male. Refer to note in patient chart for documentation of history and physical. Last Colonoscopy: more than 10 years ago. Complications: No immediate complications. Procedure: Pre-Anesthesia Assessment: - Prior to the procedure, a History and Physical was performed, and patient medications and allergies were reviewed. The patient is competent. The risks and benefits of the procedure and the sedation options and risks were discussed with the patient. All questions were answered and informed consent was obtained. Patient identification and proposed procedure were verified by the physician in the pre-procedure area. Mental Status Examination: alert and oriented. Airway Examination: normal oropharyngeal airway and neck mobility. Respiratory Examination: clear to auscultation. CV Examination: normal. Prophylactic Antibiotics: The patient does not require prophylactic antibiotics. Prior Anticoagulants: The patient has taken no anticoagulant or antiplatelet agents. ASA Grade Assessment: II - A patient with mild systemic disease. After reviewing the risks and benefits, the patient was deemed in satisfactory condition to undergo the procedure. The anesthesia plan was to use moderate sedation / analgesia (conscious sedation). Immediately prior to administration of medications, the patient was re-assessed for adequacy to receive sedatives. The heart rate, respiratory rate, oxygen saturations, blood pressure, adequacy of pulmonary ventilation, and response to care were monitored throughout the procedure. The physical status of the patient was re-assessed after the procedure. After I obtained informed consent, the scope was passed under direct vision. Throughout the procedure, the patient's blood pressure, pulse, and oxygen saturations were monitored continuously. The colonoscope was introduced through the anus and advanced to the terminal ileum. The colonoscopy was performed without difficulty. The patient tolerated the procedure well. The quality of the bowel preparation was adequate. The terminal ileum, ileocecal valve, appendiceal orifice, and rectum were photographed. Scope In: 7:05:09 AM Scope Withdrawal Time 0 hours 9 minutes 29 seconds Scope Out: 7:20:06 AM Total Procedure Duration Time 0 hours 14 minutes 57 seconds Findings: An area of mildly congested mucosa was found in the recto-sigmoid colon. Biopsies were taken with a cold forceps for histology. Verification of patient identification for the specimen was done. Estimated blood loss was minimal. Semi-liquid stool was found at the splenic flexure and in the transverse colon, precluding visualization. Non-bleeding external and internal hemorrhoids were found during retroflexion and during perianal exam. The hemorrhoids were Grade II (internal hemorrhoids that prolapse but reduce spontaneously). Impression: - Congested mucosa in the recto-sigmoid colon. Biopsied. - Stool at the splenic flexure and in the transverse colon. Recommendation: - Discharge patient to home. - Resume previous diet. - Continue present medications. - Await pathology results. - Repeat colonoscopy in 5 years for surveillance. Procedure Code(s): --- Professional --- 16436, Colonoscopy, flexible; with biopsy, single or multiple CPT copyright 2021 [employer]. All rights reserved. The codes documented in this report are preliminary and upon toy assembly supervisor review may be revised to meet current compliance requirements. Calvin Jasso DO 09/04/2024 7:28:35 AM This report has been signed electronically. Number of Addenda: 0 Note Initiated On: 09/04/2024 6:59 AM 09/04/24728 Date Calvin Jasso DO Cosigner Signature: Date (if indicated) CC: JOEL Jasso DO Date Dictated: 09/04/2459 Date Transcribed: Administrative Assistant Data Entry: LUIS Signed [facility] MR/POSTOP.SNEHA 09-04-2024 MR/POSTOP.[facility] Medical Records Department [address] [place] [address] Anesthesia Postop Eval I 09/04/24729 MR#: [id number] Acct: [id number] Name: DONTAE PARRA Rep #: [id number] : 1975 49 From: Mike Melgar PCP: JOEL CANTOR Status:REG SDC Y Race: C Location: [place] [address] Anesthesia: Postop Eval I Current Vital Signs Temperature: 97.2 F Pulse Rate: 77 Blood Pressure: 94/71 Respiratory Rate: 18 Pulse Ox: 95 Oxygen Delivery Method: Room Air Assessment Airway patent: Yes Spontaneous unlabored respirations: Yes Mental status: Asleep nausea: No Vomiting: No Anesthesia Complication: No Fluid Hydration Crystalloid volume administer (ml): 700 Total IV fluid infused: 700 Progress Note Anesthesia document: Postop Eval 1 completed: Yes 09/04/24 07 Date Mike Gillespie Signature: Date CC: Signed Normal [facility] MR/[id number] 09-04-2024 [facility] Medical Records Department [address] [facility] [place] [address] Anesthesia Postop Eval II 09/04/24 0952 MR#: [id number] Acct: [id number] Name: DONTAE PARRA Rep #: [id number] : 1975 49 From: Brian Griffiths MD PCP: JOEL CANTOR Status:[facility] Y Race: C Location: [place] Anesthesia Postop Eval I Sum Postop Eval Completion status Anesthesia document: Postop Eval 1 completed: Yes Anesthesia Postop Eval I Summary Anesthesia Postop Eval I Summary: Anesthesia Postop Eval I: Assessment Summary Airway patent Yes 09/04/24 07:32 [email or web address] Spontaneous unlabored Yes 09/04/24 07:32 [email or web address] respirations Mental status Asleep 09/04/24 07:32 [email or web address] nausea No 09/04/24 07:32 [email or web address] Vomiting No 09/04/24 07:32 [email or web address] Anesthesia Postop Eval I: Fluid Summary Crystalloid volume administer 700 09/04/24 07:32 [email or web address] (ml) Colloids volume administered ( ml) Blood Product volume administered (ml) Total IV fluid infused 700 09/04/24 07:32 [email or web address] Anesthesia Postop Eval I: Summary Notes Anesthesia Complication No 09/04/24 07:32 [email or web address] Anesthesia Complication Comment: Post-operative progress note Anesthesia: Postop Eval II Evaluation Mental status: Awake and Calm Pain Level: 1 nausea: No Vomiting: No 09/04/24951 Date Brian Griffiths MD Cosign Signature: CC: Signed Normal [facility] Surgery Specimen Level Ben 09-04-2024 Surgery Specimen Level IV ------- -------- Patient Age/Sex Location Account Attending Physician -------- DONTAE PARRA 49/M EN [id number] Calvin Jasso, DO -------- Specimen: [id number] Received: 09/04/24 Status: MIKE Tomas Num: [id number] Spec Type: COLON BX Subm Dr: Calvin Jasso DO HEADER OPERATION: Colonoscopy, Biopsy PRE-OP DIAGNOSIS: Hematochezia, Acute Constipation TISSUE SUBMITTED: Sigmoid Colon Biopsy -------- MICROSCOPIC DIAGNOSIS A. Colon, sigmoid, biopsy: - No specific pathologic change. MICROSCOPIC DESCRIPTION Slides are reviewed. GROSS DESCRIPTION A. Received in formalin labeled with the patient's name and date of . Designated as sigmoid colon BX are 2 [place] tissue fragments, 0.2 cm and 0.3 cm. Entirely submitted in 1 cassette. TN 09/04/2024 CPT: 51558 -------- Patient Age/Sex Location Account Attending Physician -------- DONTAE PARRA/M EN [id number] Calvin Jasso DO -------- Signed (signature on file) Dr. Roseann Farias MD 09/05/24 1556 -------- Normal [facility] Comment on above: Performed By: #### P SUIV ####[facility] [address] [place], [address] MR/PATPerla 09-02-2024 MR/PAT.[facility] Medical Records Department [address] [place] [address] PAT - Anesthesia 09/02/24 1704 MR#: [id number] Acct: [id number] Name: DONTAE PARRA Rep #: [id number] : 1975 49 From: Rush Lal MD PCP: JOEL CANTOR Status:PRE [facility] Y Race: C Location: EN Pre-Assessment Diagnosis/Proposed Procedure Planned Operative Procedure(s): COLONOSCOPY Anesthesia History 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 When Was Last Pacemaker Check QUESTION #4 FULL TEXT: You/Your Family Experience fever (hyperthermia) with Anesthesia Last Oral Intake Last Oral intake: Last Oral Intake NPO since Meds taken in AM with sips of water? Meds patient instructed to take am of surgery PONV PONV - radio division officer: PONV - radio division officer Female No 09/02/24 09:31 HX of Motion Sickness No 09/02/24 09:31 HX of N/V After Surgery No 09/02/24 09:31 Non-Smoker No 09/02/24 09:31 Duration of Surgery greater No 09/02/24 09:31 than 60 minutes Number of Risk Factors PONV Score Height Weight Height Weight: Anesthesia: Height Weight Height 6 ft 04/11/24 06:09 Respiratory Assessment Respiratory Assessment - radio division officer: Respiratory Tract Infection Hx - radio division officer Hx Respiratory Tract Infection No 09/02/24 09:31 STOP Sleep Apnea STOP Sleep Apnea - radio division officer: STOP Sleep Apnea - radio division officer Hx Hypertension Yes 09/02/24 09:31 Hx Sleep Apnea No 09/02/24 09:31 CPAP BIPAP Do you snore loudly (louder No 09/02/24 09:31 than talking or can be heard Do you often feel tired/ No 09/02/24 09:31 fatigued/ sleepy during daytime? Has anyone observed you stop No 09/02/24 09:31 breathing during sleep? STOP Results Negative 09/02/24 09:31 QUESTION #5 FULL TEXT : Do you snore loudly (louder than talking or can be heard through closed doors)? 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 Specify any problems Hx of Preganancy in last 3 N/A 09/02/24 09:31 Months Nurse Filling Out Transfusion APURVA 09/02/24 09:31 Questions: Date: 09/02/24 09/02/24 09:31 Time: 09:38 09/02/24 09:31 Patient unable to answer at this time (ie. confused, unrespo /Reproductio n History /Reproductiv e History - radio division officer: /Reproductiv e Hx- radio division officer Hx Now No 09/02/24 09:31 Gestational Age (in weeks): EDC: Hx Hx Para Hx Section SAB No 09/02/24 09:31 [facility] Medical History (Updated 09/02/24 @ 09:38 by Soraya Freed) Wears dentures Wears glasses Arthritis High cholesterol Injury of head and neck Injury of back History of IBS Gastric reflux Smoker CPAP (continuous positive airway pressure) dependence Sleep apnea On home oxygen therapy Emphysema, unspecified Shortness of breath on exertion Cardiology follow-up encounter History of stress test History of irregular heartbeat RLQ abdominal pain GI bleed Mild sleep apnea Chronic cough Nicotine dependence Family history of ischemic heart disease and other diseases of the circulatory system Presence of stent in coronary artery ( 02/01/22) Old myocardial infarction Primary snoring Nicotine addiction Hemoptysis Nicotine dependence, cigarettes, uncomplicated Abdominal distension (gaseous) Unspecified systolic (congestive) heart failure Hyperlipidemia Atherosclerosis of coronary artery of [place] heart without angina pectoris Chest pain Noncompliance with medications Essential hypertens (more content not included)... Normal [facility] XR CHEST 2 VIEWSon XR CHEST 2 [...] Date: 08/01/2024 8:20:59 AM Ordering Provider: MICHELLE MOORE Normal [facility] .Auto Diffon 07-28-2024 Basophil, Absolute 0.0 10 3/mcL Normal 0.0-0.3 [facility] Comment on above: Performed By: #### C MP, CRP, CBC, ANEU, GFR, ADIFF ####[place] [address] [address] Basophils/100 WBC (Bld) 0.1 % Normal 0.0-2.5 [facility] Comment on above: Performed By: #### C MP, CRP, CBC, ANEU, GFR, ADIFF ####[address] [address] Eosinophil, Absolute 0.0 10 3/mcL Normal 0.0-0.7 [facility] Comment on above: Performed By: #### C MP, CRP, CBC, ANEU, GFR, ADIFF ####[address] [address] Eosinophils/100 WBC (Bld) 0.1 % Normal 0.0-6.0 [facility] Comment on above: Performed By: #### C MP, CRP, CBC, ANEU, GFR, ADIFF ####[address] [address] Lymphocyte, Absolute 2.4 10 3/mcL Normal 0.9-4.3 [facility] Comment on above: Performed By: #### C MP, CRP, CBC, ANEU, GFR, ADIFF ####[address] [address] Lymphocytes/100 WBC (Bld) 20.4 % Normal 20.0-40.0 [facility] Comment on above: Performed By: #### C MP, CRP, CBC, ANEU, GFR, ADIFF ####[address] [address] Monocyte, Absolute 1.0 10 3/mcL Normal 0.1-1.4 [facility] Comment on above: Performed By: #### C MP, CRP, CBC, ANEU, GFR, ADIFF ####[address] [address] Monocytes/100 WBC (Bld) 8.6 % Normal 2.0-13.0 [facility] Comment on above: Performed By: #### C MP, CRP, CBC, ANEU, GFR, ADIFF ####[place] [address] [place], [place] [address] Neutrophils/100 WBC (Bld) 70.8 % Normal 50.0-75.0 [facility] Comment on above: Performed By: #### C MP, CRP, CBC, ANEU, GFR, ADIFF ####[facility] [place], [place] [address] .GFRon 07-28-2024 Estimated Glomerular Filtration Rate 73 ml/min/1.73sqm Normal [facility] Comment on above: Result Comment: Stages [...] C MP, CRP, CBC, ANEU, GFR, ADIFF ####[facility] [place], [place] [address] .NEUABSon 07-28-2024 Neutrophil, Absolute 8.5 10 3/mcL High 2.3-8.1 [facility] Comment on above: Performed By: #### C MP, CRP, CBC, ANEU, GFR, ADIFF ####[facility] [place], [place] [address] CBCon 07-28-2024 Erythrocyte distribution width (RBC) [Ratio] 13.5 % Normal 11.5-15.5 [facility] Comment on above: Performed By: #### C MP, CRP, CBC, ANEU, GFR, ADIFF ####[facility] [place], [place] [address] Hematocrit (Bld) [Volume fraction] 42.6 % Normal 40.0-52.0 [facility] Comment on above: Performed By: #### C MP, CRP, CBC, ANEU, GFR, ADIFF ####[address] [address] Hgb 14.7 G/dL Normal 13.0-17.5 [facility] Comment on above: Performed By: #### C MP, CRP, CBC, ANEU, GFR, ADIFF ####[address] [address] MCH (RBC) [Entitic mass] 30.9 pg Normal 27.0-33.0 [facility] Comment on above: Performed By: #### C MP, CRP, CBC, ANEU, GFR, ADIFF ####[place] [address] [place] [address] MCHC 34.5 G/dL Normal 32.0-36.0 [facility] Comment on above: Performed By: #### C MP, CRP, CBC, ANEU, GFR, ADIFF ####[address] [address] MCV (RBC) [Entitic vol] 89.6 fL Normal 81.0-100.0 [facility] Comment on above: Performed By: #### C MP, CRP, CBC, ANEU, GFR, ADIFF ####[address] [address] Platelet 341 10 3/mcL Normal 150-450 [facility] Comment on above: Performed By: #### C MP, CRP, CBC, ANEU, GFR, ADIFF ####[address] [address] Platelet mean volume (Bld) [Entitic vol] 6.3 fL Low 6.4-10.5 [facility] Comment on above: Performed By: #### C MP, CRP, CBC, ANEU, GFR, ADIFF ####[address] [address] RBC 4.76 10 6/mcL Normal 4.50-6.00 [facility] Comment on above: Performed By: #### C MP, CRP, CBC, ANEU, GFR, ADIFF ####[address] [place], [place] [address] WBC 12.0 10 3/mcL High 4.5-10.8 [facility] Comment on above: Performed By: #### C MP, CRP, CBC, ANEU, GFR, ADIFF ####[address] [place], [place] [address] CMPon 07-28-2024 Albumin Level 3.7 G/dL Normal 3.5-5.0 [facility] Comment on above: Performed By: #### C MP, CRP, CBC, ANEU, GFR, ADIFF ####[place] [address] [place], [place] [address] Albumin/Globulin [Mass ratio] 0.9 {ratio} Low 1.1-2.5 [facility] Comment on above: Performed By: #### C MP, CRP, CBC, ANEU, GFR, ADIFF ####[address] [address] ALP [Catalytic activity/Vol] 122 U/L Normal 40-135 [facility] Comment on above: Performed By: #### C MP, CRP, CBC, ANEU, GFR, ADIFF ####[place] [address] [place], [place] [address] ALT [Catalytic activity/Vol] 21 U/L Normal 16-63 [facility] Comment on above: Performed By: #### C MP, CRP, CBC, ANEU, GFR, ADIFF ####[address] [place], [place] [address] AST [Catalytic activity/Vol] 13 U/L Normal 10-40 [facility] Comment on above: Performed By: #### C MP, CRP, CBC, ANEU, GFR, ADIFF ####[place] [address] [place], [place] [address] Bili Total 0.6 mg/dL Normal 0.2-1.0 [facility] Comment on above: Result Comment: Use of this assay is not recommended for patients undergoing treatment with eltrombopag due to the potential for falsely elevated results. Performed By: #### C MP, CRP, CBC, ANEU, GFR, ADIFF ####[address] [address] BUN/Creatinine Ratio 12 ratio Normal 7-27 [facility] Comment on above: Performed By: #### C MP, CRP, CBC, ANEU, GFR, ADIFF ####[address] [address] Calcium [Mass/Vol] 9.8 mg/dL Normal 8.4-10.2 [facility] Comment on above: Performed By: #### C MP, CRP, CBC, ANEU, GFR, ADIFF ####[place] [address] Chloride [Moles/Vol] 103 mmol/L Normal 98-107 [facility] Comment on above: Performed By: #### C MP, CRP, CBC, ANEU, GFR, ADIFF ####[place] [address] CO2 [Moles/Vol] 25 mmol/L Normal 22-29 [facility] Comment on above: Performed By: #### C MP, CRP, CBC, ANEU, GFR, ADIFF ####[place] [id number] Creatinine [Mass/Vol] 1.21 mg/dL High 0.67-1.17 [facility] Comment on above: Performed By: #### C MP, CRP, CBC, ANEU, GFR, ADIFF ####[address] [address] Electrolyte Balance 12.0 mEq/L Normal 4.0-15.0 [facility] Comment on above: Performed By: #### C MP, CRP, CBC, ANEU, GFR, ADIFF ####[address] [address] Globulin 4.0 G/dL Normal 2.7-4.4 [facility] Comment on above: Performed By: #### C MP, CRP, CBC, ANEU, GFR, ADIFF ####[address] [place], [place] [address] Glucose [Mass/Vol] 96 mg/dL Normal 70-105 [facility] Comment on above: Performed By: #### C MP, CRP, CBC, ANEU, GFR, ADIFF ####[address] [place], [place] [address] Potassium [Moles/Vol] 4.2 mmol/L Normal 3.5-5.1 [facility] Comment on above: Performed By: #### C MP, CRP, CBC, ANEU, GFR, ADIFF ####[address] [address] [place], [place] [address] Sodium [Moles/Vol] 140 mmol/L Normal 136-145 [facility] Comment on above: Performed By: #### C MP, CRP, CBC, ANEU, GFR, ADIFF ####[address] [address] [place], [place] [address] Total Protein 7.7 G/dL Normal 6.4-8.2 [facility] Comment on above: Performed By: #### C MP, CRP, CBC, ANEU, GFR, ADIFF ####[address] [address] [place], [place] [address] Urea nitrogen [Mass/Vol] 14 mg/dL Normal 7-18 [facility] Comment on above: Performed By: #### C MP, CRP, CBC, ANEU, GFR, ADIFF ####[address] [place], [place] [address] CRPon 07-28-2024 C-Reactive Protein 3.3 mg/dL High 0.0-0.3 [facility] Comment on above: Performed By: #### C MP, CRP, CBC, ANEU, GFR, ADIFF ####[address] [address] [place], [place] [address] LABORATORYOrdered By: SYSTEM SYSTEM on 07-28-2024 Albumin [...] 07/25/2024 2:32:39 PM Ordering Provider: JEANNIE Batista [facility] Gastroenterology Visit Repor ton 06-27-2024 Gastroenterology Visit Report [facility] Gastroenterology [address] [place] [address] OFFICE VISIT Date of Service: 06/27/24 MR#: [id number] Acct: [id number] Name: DONTAE PARRA Rep #: [id number] : 1975 Provider: JOEL vega Age/Sex: 48/M Location[place] [facility] Status: Signed Intake Vital Signs 04/11/24 06:09 [...] mg PO DAILY 06/15/22 06/26/24 H istory capsule,ext.[id number] hr multiphase montelukast 10 mg tablet 10 [...] 1 mg PO QHS #30 caps 04/22/24 05/10/13 Rx fluticasone furoate 200 1 inh inhalation [...] failure Hyperlipidemia Atherosclerosis of coronary artery of [place] heart without angina pectoris Chest pain Noncompliance [...] 06/27/24 @ (more content not included)... Normal [facility] .Auto Diffon 06-19-2024 Basophil, Absolute 0.0 10 3/mcL Normal 0.0-0.3 [facility] Comment on above: Performed By: #### C BC, ANEU, ADIFF ####[facility] [place], [place] [address] Lymphocyte, Absolute 2.8 10 3/mcL Normal 0.9-4.3 [facility] Comment on above: Performed By: #### C BC, ANEU, ADIFF ####[place] [address] [place], [place] [address] Monocyte, Absolute 0.6 10 3/mcL Normal 0.1-1.4 [facility] Comment on above: Performed By: #### C BC, ANEU, ADIFF ####[facility] [place], [place] [address] .Auto DiffOrdered By: SYSTEM SYSTEM on 06-19-2024 Basophils/100 WBC (Bld) 0.2 % Normal 0.0-2.5 [facility] Comment on above: Performed By: #### C BC, ANEU, ADIFF ####[address] [place], [place] [address] Eosinophil, Absolute 0.0 103/mcL Normal 0.0-0.7 [facility] Comment on above: Performed By: #### C BC, ANEU, ADIFF ####[address] [place], [place] [address] Eosinophils/100 WBC (Bld) 0.3 % Normal 0.0-6.0 [facility] Comment on above: Performed By: #### C BC, ANEU, ADIFF ####[address] [place], [place] [address] Lymphocytes/100 WBC (Bld) 27.2 % Normal 20.0-40.0 [facility] Comment on above: Performed By: #### C BC, ANEU, ADIFF ####[address] [place], [place] [address] Monocytes/100 WBC (Bld) 6.2 % Normal 2.0-13.0 [facility] Comment on above: Performed By: #### C BC, ANEU, ADIFF ####[address] [place], [place] [address] Neutrophils/100 WBC (Bld) 66.1 % Normal 50.0-75.0 [facility] Comment on above: Performed By: #### C BC, ANEU, ADIFF ####[address] [place], [place] [address] .NEUABSon 06-19-2024 Neutrophil, Absolute 6.9 10 3/mcL Normal 2.3-8.1 [facility] Comment on above: Performed By: #### C BC, ANEU, ADIFF ####[address] [place], [place] [address] CBCOrdered By: SYSTEM SYSTEM on 06-19-2024 Erythrocyte distribution width (RBC) [Ratio] 14.1 % Normal 11.5-15.5 [facility] Comment on above: Performed By: #### C BC, ANEU, ADIFF #### [address] [place], [place] [address] Hematocrit (Bld) [Volume fraction] 44.3 % Normal 40.0-52.0 [facility] Comment on above: Performed By: #### C BC, ANEU, ADIFF #### [address] [place], [place] [address] MCH (RBC) [Entitic mass] 31.1 pg Normal 27.0-33.0 [facility] Comment on above: Performed By: #### C BCBRAXTON, ADIFF #### [address] [address] MCHC 34.7 G/dL Normal 32.0-36.0 [facility] Comment on above: Performed By: #### C BRAXTON GAVIRIA, ADIFF #### [address] [address] MCV (RBC) [Entitic vol] 89.6 fL Normal 81.0-100.0 [facility] Comment on above: Performed By: #### C BRAXTON GAVIRIA ADIFF #### [address] [address] Platelet mean volume (Bld) [Entitic vol] 6.3 fL Low 6.4-10.5 [facility] Comment on above: Performed By: #### C BRAXTON GAVIRIA, ADIFF #### [address] [address] CBCon 06-19-2024 Hgb 15.4 G/dL Normal 13.0-17.5 [facility] Comment on above: Performed By: #### C BRAXTON GAVIRIA, ADIFF #### [address] [address] Platelet 315 10 3/mcL Normal 150-450 [facility] Comment on above: Performed By: #### C BCBRAXTON, ADIFF #### [address] [address] RBC 4.94 10 6/mcL Normal 4.50-6.00 [facility] Comment on above: Performed By: #### C BRAXTON GAVIRIA, ADIFF #### [address] [address] WBC 10.4 10 3/mcL Normal 4.5-10.8 [facility] Comment on above: Performed By: #### C BRAXTON GAVIRIA, ADIFF #### [address] [address] LABORATORYOrdered By: SYSTEM SYSTEM on 06-19-2024 Basophils [...] Estimated Glomerular Filtration Rate 84 ml/min/1.73sqm Normal [facility] Comment on above: Result Comment: Stages [...] eGFR results. Performed By: #### C MP, GFR ####[address] [place], [place] [address] CMPon 06-18-2024 Albumin Level 4.1 G/dL Normal 3.5-5.0 [facility] Comment on above: Performed By: #### C MP, GFR ####[place] [address] [place], [place] [address] Albumin/Globulin [Mass ratio] 1.1 {ratio} Normal 1.1-2.5 [facility] Comment on above: Performed By: #### C MP, GFR ####[address] [place], [place] [address] ALP [Catalytic activity/Vol] 118 U/L Normal 40-135 [facility] Comment on above: Performed By: #### C MP, GFR ####[address] [place], [place] [address] ALT [Catalytic activity/Vol] 35 U/L Normal 16-63 [facility] Comment on above: Performed By: #### C MP, GFR ####[place] [address] [place], [place] [address] AST [Catalytic activity/Vol] 17 U/L Normal 10-40 [facility] Comment on above: Performed By: #### C MP, GFR ####[place] [address] [place], [place] [address] Bili Total 0.9 mg/dL Normal 0.2-1.0 [facility] Comment on above: Result Comment: Use of this assay is not recommended for patients undergoing treatment with eltrombopag due to the potential for falsely elevated results. Performed By: #### C MP, GFR ####[address] [place], [place] [address] BUN/Creatinine Ratio 13 ratio Normal 7-27 [facility] Comment on above: Performed By: #### C MP, GFR ####[address] [place], [place] [address] Calcium [Mass/Vol] 9.8 mg/dL Normal 8.4-10.2 [facility] Comment on above: Performed By: #### C MP, GFR ####[place] [address] [place], [place] [address] Chloride [Moles/Vol] 101 mmol/L Normal 98-107 [facility] Comment on above: Performed By: #### C MP, GFR ####[address] [address] [place], [place] [address] CO2 [Moles/Vol] 28 mmol/L Normal 22-29 [facility] Comment on above: Performed By: #### C MP, GFR ####[address] [place], [place] [address] Creatinine [Mass/Vol] 1.08 mg/dL Normal 0.67-1.17 [facility] Comment on above: Performed By: #### C MP, GFR ####[address] [place], [place] [address] Electrolyte Balance 8.0 mEq/L Normal 4.0-15.0 [facility] Comment on above: Performed By: #### C MP, GFR ####[address] [address] [place], [place] [address] Globulin 3.6 G/dL Normal 2.7-4.4 [facility] Comment on above: Performed By: #### C MP, GFR ####[address] [place], [place] [address] Glucose [Mass/Vol] 100 mg/dL Normal 70-105 [facility] Comment on above: Performed By: #### C MP, GFR ####[address] [place], [place] [address] Potassium [Moles/Vol] 3.8 mmol/L Normal 3.5-5.1 [facility] Comment on above: Performed By: #### C MP, GFR ####[address] [place], [place] [address] Sodium [Moles/Vol] 137 mmol/L Normal 136-145 [facility] Comment on above: Performed By: #### C MP, GFR ####[place] [address] [place], [place] [address] Total Protein 7.7 G/dL Normal 6.4-8.2 [facility] Comment on above: Performed By: #### C MP, GFR ####[address] [place], [place] [address] Urea nitrogen [Mass/Vol] 14 mg/dL Normal 7-18 [facility] Comment on above: Performed By: #### C MP, GFR ####[facility] [place], [place] [address] CT ABD/PELVIS W/ IV CONTRAST ONLYon 06-18-2024 [...] 06/18/2024 6:15:42 PM Ordering Provider: JEANNIE Batista [facility] LABORATORYOrdered By: SYSTEM SYSTEM on 06-18-2024 [...] ADM SS Lipid Profileon 05-26-2024 TRIG Normal [facility] Comment on above: Result Comment: PT L EFT COMING BACK ANOTHER DAY The drugs N-Acetylcysteine and Metamizole may falsely depress this assay. Performed By: #### L 500.4100, L500.3400 ####[facility] [address] [place], [address] CHOL Normal <=200 [facility] Comment on above: Result Comment: PT L EFT COMING BACK ANOTHER DAY Performed By: #### L 500.4100, L500.3400 ####[facility] [address] [place], [address] CHOL:HDL Normal [facility] Comment on above: Result Comment: PT L EFT COMING BACK ANOTHER DAY Performed By: #### L 500.4100, L500.3400 ####[facility] [address] [place], [address] CLDL Normal [facility] Comment on above: Result Comment: PT L EFT COMING BACK ANOTHER DAY Performed By: #### L 500.4100, L500.3400 ####[facility] [address] [place], [address] HDL Normal [facility] Comment on above: Result Comment: PT L EFT COMING BACK ANOTHER DAY Performed By: #### L 500.4100, L500.3400 ####[facility] [address] [place], [address] VLDL Normal 5-40 [facility] Comment on above: Result Comment: PT L EFT COMING BACK ANOTHER DAY Performed By: #### L 500.4100, L500.3400 ####[facility] [address] [place], [address] Liver Profileon 05-26-2024 ALB Normal 3.5-5.0 [facility] Comment on above: Result Comment: PT L EFT COMING BACK ANOTHER DAY Performed By: #### L 500.4100, L500.3400 #### [facility] [address] [place], [address] ALK PHOS Normal 40-129 [facility] Comment on above: Result Comment: PT L EFT COMING BACK ANOTHER DAY Performed By: #### L 500.4100, L500.3400 #### [facility] [address] [place], [address] ALT Normal <=46 [facility] Comment on above: Result Comment: PT L EFT COMING BACK ANOTHER DAY Performed By: #### L 500.4100, L500.3400 #### [facility] [address] [place], [address] AST Normal <=37 [facility] Comment on above: Result Comment: PT L EFT COMING BACK ANOTHER DAY Performed By: #### L 500.4100, L500.3400 #### [facility] [address] [place], [address] D BILI Normal 0.00-0.30 [facility] Comment on above: Result Comment: PT L EFT COMING BACK ANOTHER DAY Performed By: #### L 500.4100, L500.3400 #### [facility] [address] [place], [address] T BILI Normal 0.00-1.30 [facility] Comment on above: Result Comment: PT L EFT COMING BACK ANOTHER DAY Performed By: #### L 500.4100, L500.3400 #### [facility] [address] [place], [address] T PROT Normal 5.9-8.4 [facility] Comment on above: Result Comment: PT L EFT COMING BACK ANOTHER DAY Performed By: #### L 500.4100, L500.3400 #### [facility] [address] [place], [address] Angiotensin Convert Enzymeon 05-16-2024 ANGIOT-CONV.ENZ 73 U/L Normal 14-82 [facility] Comment on above: Result Comment: Perf ormed at: CB - [facility] [address] [id number] Judge: Trent Live PhD, Phone: [phone] Performed By: #### L 2214.1234 #### [facility] [address] [place], [address] Chest without Contraston Chest without Contrast [facility] Imaging Services [address] [place] [address] Chest without Contrast MR#: [id number] Acct: [id number] Name: DONTAE PARRA Rep #: [id number] : 1975 M 48 From: Jeyson Dahl MD PCP: JEANNIE HERNANDEZ BIOLOGICAL TECHNICAL OFFICERGustavo Status: REG CLI Study: Chest without Contrast Date of Exam: 05/14/24 Exam# [id number] Ordering Dr: Delores Pablo BIOLOGICAL TECHNICAL OFFICER- C PROCEDURE: CHEST WITHOUT CONTRAST 05/14/2024 REASON [...] stents appears greatest right coronary. Reading Location: [id number] CC: JEANNIE MALDONADO ELPIDIO; Delores Pablo NP Administrative Assistant Data Entry: Signed Normal [facility] Pulmonary Visit Reporton Pulmonary Visit Report [facility] Pulmonary Medicine of [address] [place] [address] OFFICE VISIT Date of Service: 04/11/24 MR#: [id number] Acct: [id number] Name: DONTAE PARRA Rep #: [id number] : 1975 Provider: Delores Pablo NP Age/Sex: 48/M Location[place] [facility] Status: Signed Assessment and Plan Assessment and [...] to his regimen. Orders: Orders Fungus Stain ([facility]) Today R05.3 - Chronic cough Angiotensin [...] currently smo (more content not included)... Normal [facility] Cardiology Visit Reporton Cardiology Visit Report [facility] 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 hr multiphase montelukast 10 mg tablet 10 [...] 1 mg PO QHS #30 caps 02/19/24 02/09/12 Rx sertraline 50 mg tablet 50 mg [...] has no idea what he is taking [facility] Medical History Mild sleep apnea Chronic (more content not included)... Normal [facility] Stress Reporton 03-03-2024 Stress Report [facility] Cardiovascular Services [address] [place] [address] MR#: [id number] Acct: [id number] Name: PARRADONTAE MARVA Rep #: [id number] : 1975 48 From: Bria Olsen MD Primary Care: JEANNIE HERNANDEZ BIOLOGICAL TECHNICAL OFFICER-C Status: REG CLI Referring Dr: Elda Villegas NP BIOLOGICAL TECHNICAL OFFICER-C Sex: M C Stress Test Report Date: [...] of 59%. This note was generated with 3VRation software. It may contain incorrect words, spelling, and punctuation that were not noted in checking the note before signing. 03/03/24 0900 Date Bria Olsen MD CC: JOEL MALDONADO ELPIDIO Date Dictated: 03/03/24858 Date Transcribed: 03/03/24858 Administrative Assistant Data Entry: JOSE Signed Normal [facility] Pulmonary Visit Reporton Pulmonary Visit Report [facility] Pulmonary Medicine of [address] [place] [address] OFFICE VISIT Date of Service: 02/29/24 MR#: [id number] Acct: [id number] Name: DONTAE PARRA Rep #: [id number] : 1975 Provider: Delores Pablo NP Age/Sex: 48/M Location[place] [facility] Status: Signed Assessment and Plan Assessment and [...] today. I have also recommended transitioning to Trelegy from [facility]. Patient has been given samples [...] ea 5RF J43.9 - Emphysema, unspecified Discontinued nibchtmrkz-xmpzxoqz-w ormoterol 160-9-4.8 mcg/actuation ([employer]) Discontinued Reason: [...] pain for which he is following with [facility] for plan and management. He reports occasional chest tightness and wheezing. Albuterol does improve his symptoms. (more content not included)... Normal [facility] Chest PA and Lateralon 02-18 Chest PA and Lateral [facility] Imaging Services [address] [place] [address] Chest PA and Lateral MR#: [id number] Acct: [id number] Name: DONTAE PARRA Rep #: [id number] : 1975 M 48 From: Michelle Mercer MD PCP: JEANNIE HERNANDEZ Status: REG CLI Study: Chest PA and Lateral Date of Exam: 02/19/24 Exam# [id number] Ordering Dr: Delores Pablo [id number] STUDY: X-RAY CHEST REASON FOR EXAM: Male, [...] MD at 23:55 EST , CC: JEANNIE Pablo NP Administrative Assistant Data Entry: Signed Normal [facility] MR/BMS.BPon 02-19-2024 MR/BMS.BP [facility] [address], [address] [place] [address] OFFICE VISIT Date of Service: 02/19/24 MR#: [id number] Acct: [id number] Name: DONTAE PARRA Rep #: [id number] : 1975 Provider: JOEL naranjo Age/Sex: 48/M Location: [facility] Status: Signed Intake Vital Signs 01/08/24 14:09 [...] 20 mg PO DAILY 06/15/22 02/19/24 History capsule,ext.xjjgpif89 hr multiphase montelukast 10 mg tablet 10 [...] failure Hyperlipidemia Atherosclerosis of coronary artery of [place] heart without angina pectoris Chest pain Noncompliance [...] smoker tobacc (more content not included)... Normal [facility] Urine Drug Screen (VISTA)on 01-21-2024 AMPHETAMINES Negative Normal <1000 ng/mL [facility] Comment on above: Order Comment: MEDTO X Performed By: #### L 505.5000 ####[facility] [address] [place], [place], [id number] BARBITIURATES Negative Normal < 200 ng/mL [facility] Comment on above: Order Comment: MEDTO X Performed By: #### L 505.5000 ####[facility] [address] [place], [place], [id number] BENZODIAZIPINE Negative Normal < 200 ng/mL [facility] Comment on above: Order Comment: MEDTO X Performed By: #### L 505.5000 ####[facility] [address] [place], [address] COCAINE Negative Normal < 300 ng/mL [facility] Comment on above: Order Comment: MEDTO X Performed By: #### L 505.5000 ####[facility] [address] [place], [address] ECSTACY Negative Normal < 500 ng/mL [facility] Comment on above: Order Comment: MEDTO X Performed By: #### L 505.5000 ####[facility] [address] [place], [address] METHADONE Negative Normal < 300 ng/mL [facility] Comment on above: Order Comment: MEDTO X Performed By: #### L 505.5000 ####[facility] [address] [facility] [address] OPIATES Negative Normal < 300 ng/mL [facility] Comment on above: Order Comment: MEDTO X Performed By: #### L 505.5000 ####[facility] [address] [place], [address] PCP Negative Normal < 25 ng/mL [facility] Comment on above: Order Comment: MEDTO X Performed By: #### L 505.5000 ####[facility] [address] [facility] [address] THC Negative Normal < 50 ng/mL [facility] Comment on above: Order Comment: MEDTO X Performed By: #### L 505.5000 ####[facility] [address] [place], [address] VISTA UDS PH 5 Normal [facility] Comment on above: Order Comment: MEDTO X Performed By: #### L 505.5000 ####[facility] [address] [place], [address] Pulmonary Visit Reporton Pulmonary Visit Report [facility] of [place] [address] [place] [address] OFFICE VISIT Date of Service: 01/14/24 MR#: [id number] Acct: [id number] Name: DONTAE PARRA Rep #: [id number] : 1975 Provider: Delores Pablo NP Age/Sex: 48/M Location: [facility] Status: Signed Assessment and Plan Assessment and [...] Jade PA/Lat xray to be pushed to [facility]. I did follow-up with Elda Villegas, Cardiology [employer] HOUSEPERSON who is planning to discuss a stress [...] pain for which he is following with [facility] for plan and management. He reports [...] to b (more content not included)... Normal [facility] MR/BMS.BPon 01-08-2024 MR/BMS.BP [place] [address] [facility], [address] [place] [address] OFFICE VISIT Date of Service: 01/08/24 MR#: [id number] Acct: [id number] Name: DONTAE PARRA Rep #: [id number] : 1975 Provider: JOEL naranjo Age/Sex: 48/M Location: [facility]BP Status: Signed Intake Vital Signs 11/06/23 09:59 [...] 20 mg PO DAILY 06/15/22 01/08/24 History capsule,ext. hr multiphase montelukast 10 mg tablet 10 [...] failure Hyperlipidemia Atherosclerosis of coronary artery of [place] heart without angina pectoris Chest pain Noncompliance [...] to fe (more content not included)... Normal [facility] XR CHEST 2 VIEWSon 4 XR CHEST [...] 12/19/2023 5:22:25 PM Ordering Provider: LAURA WARREN [facility] FACILITY CODING SUMMARYon FACILITY CODING SUMMARY Facility Coding Facility Coding Summary [facility] [address] [place] [phone] 11/30/2023 Patient: DONTAE PARRA Sex: Male : [...] D.O. Procedures from Nurses/Facility: Blood Draw (CPT: 70141) 1 of 2 Facility Coding IV Hydration (CPT: 13530 X3) IV Push MORPHine IVP (CPT: 39117) IV Push Zofran IVP (CPT: 71879) IV Push Zofran IVP (CPT: 20179) IV Push Dilaudid IVP (CPT: 46590) IV Infusion CeFAZolin IVPB 1g/50ml PREMIX (CPT: 94458) SUPPLIES ELEVEL 78106-67 This is a partial abstract of information documented in the full record. [employer] must use independent judgment in selecting codes. CPT copyright 2022 [employer]. All Rights Reserved. 2 of 2 [facility] MED ADMINISTRATION DETAILon 12-06-2023 MED ADMINISTRATION DETAIL Cigar Packer Medication Administration Record [place] [address] [place] [phone] 11/30/2023 Patient: DONTAE PARRA Sex: Male : 1975 Age: 48y MEASUREMENTS: Wt: 98.9 kg, Ht/Sae: 72.0 in, BMI: 29.57 ALLERGIES: isosorbide Medication Ordered Medication Administration Date/Time IV NS 0.9 % 1000 21:11/29 IV NS 0.9 % 1000 mL started in bag#1 1000 mL at Started mL (NOW x1) 999 mL/hr via Site# 1. Allergies verified and confirmed 5 rights. IV 21:19 11/30/2023 patency established. IV site checked: no pain, redness, or swelling. Lucas Escalante R.N. IV flushed thoroughly pre-medication administration. Information Stopped reviewed with patient. - 21:20 Lucas Escalante R.N. 00:51 12/01/2023 Lucas Escalante, R.N. 00:51 11/30 Medication Discontinued: bag #1 completed upon Scanned transfer. Total amount infused: 1000 mL. IV patency established. IV site checked: no pain, redness, or swelling. IV flushed thoroughly post-medication administration. - 01:16 Lucas Escalante, R.N. CeFAZolin IVPB 21:11/29 CeFAZolin IVPB 1g/50ml PREMIX 1 g started at 100 Started 1g/50ml PREMIX 1 g mL/hr via Site# 1. Allergies verified and confirmed 5 rights. IV 21:11/30/2023 at 100 mL/hr (NOW patency established. IV site checked: no pain, redness, or swelling. Lucas Escalante, R.N. x1) IV flushed thoroughly pre-medication administration. Information Stopped reviewed with patient. - 21:22 Lucas Escalante R.N. 21:56 11/30/2023 Lucas Escalante R.N. 21:56 11/29 Medication Discontinued: IV completed. Total amount Scanned infused: 50 mL. IV patency established. IV site checked: no pain, redness, or swelling. IV flushed thoroughly post-medication administration. - 22:12 Lucas Escalante, R.N. 1 of 2 Cigar Packer Medication Ordered Medication Administration Date/Time Dilaudid IVP 1 mg 21:16 11/29 Dilaudid IVP 1 mg given via Site# 1. Confirmed 5 Given (NOW x1) rights. IV patency established. IV site checked: no pain, redness, or 21:16 11/30/2023 swelling. IV flushed thoroughly pre-medication administration. IVP Lucas Ava, R.N. given by nurse. Information reviewed with patient. - 21:17 Lucas Scanned Ava, R.N. 21:57 11/29 Medication Response: Pain is improving. - 01:17 Lucas Ava, R.N. Zofran IVP 4 mg 21:17 11/29 Zofran [...] Scanned Ava, R.N. 2 of 2 Normal [facility] NURSES CLINICAL REPORT (NOTE S)on 12-06-2023 NURSES CLINICAL REPORT (NOTES) Nurse Narrative Nurse Clinical [address] [place] [phone] 11/30/2023 Patient: PARRA, DONTAE Sex: Male : 1975 Age: 48y Disposition: Transfer to [facility] Disposition Decision Time: 00:02 12/01/2023 Departure Time: 01:25 12/01/2023 TRIAGE Measurements: 19:43 11/30/23 Wt: 98.9 kg, Ht/Sae: 72.0 in, BMI: 29.57 -- 19:43 11/30/23 JIM Huffman R.N. 19:39 11/30/23. Site #1 started [...] once a day . -- 20:01 11/30/23 WAYNET Lexii Huffman R.N. 1 of 6 Nurse Narrative hydroCHLOROthiazide 25 mg tablet: once a day . -- 20:02 11/30/23 WAYNET Lexii Huffman R.N. buPROPion HCL XL 150 mg 24 hr tablet, extended release: once a day . -- 20:02 11/30/23 WAYNET Lexii Huffman R.N. omeprazole 40 mg capsule,delayed release: once a day . -- 20:03 11/30/23 JIM Huffman R.N. clopidogreL 75 mg tablet: once a day . -- 20:03 11/30/23 WAYNET Lexii Huffman R.N. carvediloL 25 mg tablet: once a day . -- 20:03 11/30/23 WAYNET Lexii Huffman R.N. rosuvastatin 10 mg tablet: at bedtime . -- 20:04 11/30/23 WAYNET Lexii Huffman R.N. aspirin 81 mg capsule: once a day . -- 20:04 11/30/23 JIM Huffman R.N. Allergies: isosorbide -- 19:40 11/30/23 WAYNET Lexii Huffman R.N. Problems: Hypertension -- 19:40 11/30/23 JIM Huffman R.N. CVA - Cerebrovascular Accident -- 19:40 11/30/23 WAYNET Lexii Huffman R.N. Myocardial Infarction -- 19:41 11/30/23 WAYNET Lexii Huffman R.N. Asthma -- 19:55 11/30/23 JIM Huffman R.N. COPD - Chronic Obstructive Pulmonary Disease -- 19:55 11/30/23 WAYNET Lexii Huffman R.N. 19:36 11/30/23. Preferred pharmacy: [facility] -- 19:48 11/30/23 JIM Huffman R.N. ADDITIONAL SURGERIES: Cardiac Procedures -- 19:41 11/30/23 WAYNET Lexii Huffman R.N. Major Trauma History Arrived by EMS. Historian: patient. Acuity: LEVEL 2. 19:36 11/30/23. Triage time: 19:36 11/30/2023. Mechanism of injury: Fell: (from tree stand approx 17-15 feet). Occurred 18:30 11/30/2023. Patient is on anticoagulation (blood thinner) therapy: includes plavix. 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 -- 19:48 11/30/23 JIM Huffman R.N. 19:49 11/30/23. SOCIAL HX: Current every day heavy tobacco smoker (cigarette)- 1-2 packs per day. The patient has not traveled outside the [place] Infectious disease exposure: No infectious disease exposure. -- 19:49 11/30/23 JIM Huffman R.N. Primary Survey: 19:36 11/30/23. Alert. [...] possible sources of infection. -- 19:48 11/30/23 JIM Huffman R.N. 19:42 11/30/23. BP: 145/78 MAP: 100. HR: 92. RR: 18. O2 saturation: 96% Temperature: 98 F. Pain leve (more content not included)... Normal [facility] ORDER SHEET (CPOE ONLY)on ORDER SHEET (CPOE ONLY) Order Sheet Order Sheet [facility] [address] [place] [id number] 11/30/2023 Patient: DONTAE PARRA Sex: Male : [...] Mumtaz Holley D.O. 11/30/2023 11/30/2023 x1) Daija Adams, R.N. Tdap IM DIPTH/TETANUS/PERT 20:25 11/30/2023 Cancelled: Treatment not > 7yr and older0.5 mL (NOW x1) Mumtaz Holley D.O. Indicated, pt UTD on Tdap 21:22 EDT Lucas Escalante R.N. Dilaudid IVP1 mg (NOW x1) 20:40 11/30/2023 20:57 21:17 Mumtaz Holley D.O. 11/30/2023 11/30/2023 Suzanne AdamsNGabino Escalante, R.N. Zofran IVP4 mg (NOW x1) 20:40 11/30/2023 20:57 21:17 Mumtaz Holley D.O. 11/30/2023 11/30/2023 Daija Adams, R.N. 1 of 4 Order Sheet Reason for ordering with alerts: Clinical consideration given --20:40 11/30/2023 Mumtaz Holley D.O. MORPHine IVP4 mg (NOW x1, 01:02 12/01/2023 01:02 01:08 HIGH ALERT MEDICATION) Mumtaz Holley D.O. 12/01/2023 12/01/2023 Daija Adams R.N. Reason for ordering with alerts: Clinical consideration given --01:02 12/01/2023 Mumtaz Holley D.O. Zofran IVP4 mg (NOW x1) 01:02 12/01/2023 01:02 01:06 Mumtaz Holley D.O. 12/01/2023 12/01/2023 Daija Adams R.NGabino Reason for ordering with alerts: Clinical consideration given --01:02 12/01/2023 Mumtaz Holley D.O. LAB ORDERS Order Description Priority Entered Acknowledged Collected Completed CBC w Diff Stat Stat 20:23 11/30/2023 20:47 11/30/2023 21:18 11/30/2023 Paul Lopez R.N. Seth Lapp, R.N. CMP Stat Stat 20:23 11/30/2023 20:47 11/30/2023 21:18 11/30/2023 Paul Lopez R.N. Seth Lapp, R.N. Urinalysis Stat Stat 20:23 11/30/2023 Cancelled: Unable to Collect Mumtaz Holley D.O. 01:14 EDT Lucas Escalante R.N. Lipase Stat Stat 20:23 11/30/2023 20:47 11/30/2023 21:18 11/30/2023 Paul Lopez R.N. Seth Lapp RGabinoNGabino Troponin-I (Sched: q3h Stat 20:25 11/30/2023 20:47 11/30/2023 21:19 11/30/2023 X2); Stat 1 of 2 Paul Lopez R.N. Seth Lapp, R.NGabino Troponin-I (Sched: q3h Stat 20:25 11/30/2023 20:47 11/30/2023 00:44 12/01/2023 X2); Stat 2 of 2 Paul Lopez, RGabinoN. Lucas Escalante, R.N. 2 of 4 Order Sheet DIAGNOSTIC STUDY ORDERS Order Description Priority Entered Acknowledged Completed CT Brain wo IV Cont Stat Stat 20:23 11/30/2023 20:47 21:19 Mumtaz Holley D.O. 11/30/2023 11/30/2023 Lucas Escalante, R.N. Lucas Whaleyp, R.N. Reason for Study: Head Injury CT C-Spine wo IV Cont Stat Stat 20:23 11/30/2023 20:47 21:19 Mumtaz Holley D.O. 11/30/2023 11/30/2023 Lucas Escalante, R.N. Lucas Whaleyp, R.N. Reason for Study: Trauma/Injury CT CAP w IV Cont Stat Stat 20:23 11/30/2023 20:47 21:19 Mumtaz Holley D.O. 11/30/2023 11/30/2023 Lucas Escalante, R.N. Lucas Whaleyp, R.N. Reason for Study: Trauma/Injury STAFF ORDERS Order Description Priority Entered Acknowledged Collected Completed Pulse Oximeter 20:23 11/30/2023 20:47 11/30/2023 21:18 11/30/2023 Paul Lopez, R.N. Lucas Escalante, R.N. Neuropsychology Medical Consultant 20:23 11/30/2023 20:47 11/30/2023 21:18 11/30/2023 Paul Lopez, R.N. Lucas Escalante, R.N. Oxygen in ER 20:23 11/30/2023 20:47 11/30/2023 21:19 11/30/2023 Paul Lopez, RGabinoN. Lucas Escalante, R.N. EKG 20:25 11/30/2023 20:47 11/30/2023 21:19 11/30/2023 Paul Lopez, R.N. Lucas Escalante, R.N. 3 of 4 Order Sheet [Electronically signed by Mumtaz Holley D.O. (12/06/2023 21:04 EDT)] 4 of 4 Normal [facility] PHYS CLINICAL REPORT AND ADD ENon 12-06-2023 PHYS CLINICAL REPORT AND ANIYAH Narrative Physician Clinical Narrative [facility] [address] [place] [address] [id number] 11/30/2023 Patient: DONTAE PARRA Sex: Male : 1975 Age: 48y Disposition: Transfer to [facility] Disposition Decision Time: 00:02 12/01/2023 Departure Time: [...] None. Recent medical care: Not recently seen/assessed. 1 of 14 Narrative REVIEW OF SYSTEMS CVS: The patient [...] Final EDT 10 (more content not included)... Normal [facility] PHYS CODING SUMMARY IRON HANDLER AB Pastor 12-06-2023 PHYS CODING SUMMARY IRON HANDLER ABSVenkata Coding Summary Coding Summary [address] [address] [id number] 11/30/2023 Patient: DONTAE PARRA Sex: Male : 1975 Age: 48y ICD-10 Codes M54.9: Dorsalgia, unspecified M54.6: Pain in thoracic spine W14.xxxA: Fall from tree, initial encounter CPT Codes EKG (Insufficient documentation to return CPT code.) This is a partial abstract of information documented in the full record. [employer] must use independent judgment in selecting codes. CPT copyright 2022 [employer]. All Rights Reserved. 1 of 1 Normal [facility] SUPER BILLon 12-06-2023 [facility]ILL [facility] [address] [address] [id number] 11/30/2023 Patient: DONTAE PARRA Sex: Male : 1975 Age: 48y Facility Professional Category Item Description Code Code Quantity Fee Total Drugs Normal Saline 136625 1 $0.00 $0.00 1000cc (547655) Nurse/E/M EMERGENCY 617158 1 $0.00 $0.00 DEPT VISIT HIGH SEVERITYFUNCJ (17915-32) Nurse/IV/IM/Infusions Drip/IVPB initial 036925 1 $0.00 $0.00 (23899) Nurse/IV/IM/Infusions Hydration 182684 3 $0.00 $0.00 additional hour (99916) Nurse/IV/IM/Infusions IVP additional 549884 3 $0.00 $0.00 push (73488) Nurse/IV/IM/Infusions IVP same med 060956 1 $0.00 $0.00 (31 min apart) (00188) Grand $0.00 Total 1 of 2 [facility] Providers Mumtaz Holley D.O. Chief Complaint [...] tree, initial encounter 2 of 2 Normal [facility] VISIT SUMMARYon 12-06-2023 VISIT SUMMARY Visit Overview Visit Overview [address] [address] [id number] 11/30/2023 Patient: DONTAE PARRA Sex: Male : [...] THORACIC AORTIC DISSECTION 4 of 4 Normal [facility] CBC W Auto Differential pane l (Bld)on 12-01-2023 Basophils (Bld) [#/Vol] 0.0 10*3/uL 0.0 - 0.2 10*3/uL [employer] Basophils/100 WBC (Bld) 0.1 % 0.0 - 2.0 % [facility] [employer] Eosinophils (Bld) [#/Vol] 0.0 10*3/uL 0. 0 - 0.5 10*3/uL [facility] Eosinophils/100 WBC (Bld) 0.3 % 0. 0 - 6.0 % [facility] [employer] Erythrocyte distribution width (RBC) [Ratio] 14.0 % 11.5 - 15.0 % [facility] [employer] Hematocrit (Bld) [Volume fraction] 38.9 % Low 40.0 - 52.0 % [facility] Hemoglobin (Bld) [Mass/Vol] 13.5 g/dL 13.0 - 18.0 g/dL [facility] [employer] Immature granulocytes (Bld) [#/Vol] 0.0 10*3/uL NINF - 0.1 10*3/uL [facility] Immature granulocytes/100 WBC (Bld) 0.4 % 0.0 - 2.0 % [facility] [employer] Interpretation and review of laboratory results [facility]normal [facility] Lymphocytes (Bld) [#/Vol] 1.3 10*3/uL 1. 0 - 4.3 10*3/uL [facility] Lymphocytes/100 WBC (Bld) 16.4 % 15 .0 - 45.0 % [facility] MCH (RBC) [Entitic mass] 30.8 pg 26. 0 - 34.0 pg [facility] MCHC (RBC) [Mass/Vol] 34.7 % 30.5 - 36.0 % [facility] MCV (RBC) [Entitic vol] 88.6 fL 77.0 - 99.0 fL [facility] Monocytes (Bld) [#/Vol] 0.6 10*3/uL 0.0 - 0.9 10*3/uL [facility] Monocytes/100 WBC (Bld) 7.4 % 5.0 - 13.0 % [facility] Neutrophils (Bld) [#/Vol] 5.8 10*3/uL 1. 8 - 7.5 10*3/uL [facility] Neutrophils/100 WBC (Bld) 75.4 % 38 .0 - 82.0 % [facility] Nucleated RBC/100 WBC (Bld) [Ratio] 0.0 % [facility] Platelet mean volume (Bld) [Entitic vol] 8.5 fL Low 9.0 - 12.7 fL [facility] Platelets (Bld) [#/Vol] 212 10*3/uL 140 - 440 10*3/uL [facility] RBC (Bld) [#/Vol] 4.39 10*6/uL Low 4.40 - 5.90 10*6/uL [facility] WBC (Bld) [#/Vol] 7.7 10*3/uL 3.6 - 10.7 10*3/uL [facility] CBC WITH AUTO DIFFERENTIALon 12-01-2023 Basophils (Bld) [#/Vol] 0.0 10*3/uL Normal 0.0-0.2 [facility] Comment on above: Performed By: #### L AB17 #### [employer] Drafter: NEISHA DELGADO ([id number]) [facility] ([facility]) [address] [place] [address] Basophils/100 WBC (Bld) 0.1 % Normal 0.0-2.0 [facility] Comment on above: Performed By: #### L AB17 #### [employer] Drafter: NEISHA DELGADO ([id number]) [facility] [address] [place] [address] Eosinophils (Bld) [#/Vol] 0.0 10*3/uL Normal 0.0-0.5 [facility] Comment on above: Performed By: #### L AB17 #### [employer] Drafter: NEISHA DELGADO ([id number]) [facility]) [address] [place] [address] Eosinophils/100 WBC (Bld) 0.3 % Normal 0.0-6.0 [facility] Comment on above: Performed By: #### L AB17 #### [employer]fter: NEISHA DELGADO ([id number]) [facility]) [address] [place] [address] Erythrocyte distribution width (RBC) [Ratio] 14.0 % Normal 11.5-15.0 [facility] Comment on above: Performed By: #### L AB17 #### [employer]fter: NEISHA DELGADO ([id number]) [facility]) [address] [place] [address] Hematocrit (Bld) [Volume fraction] 38.9 % Low 40.0-52.0 [facility] Comment on above: Performed By: #### L AB17 #### [employer]fter: NEISHA DELGADO ([id number]) [facility]) [address] [place] [address] Hemoglobin (Bld) [Mass/Vol] 13.5 g/dL Normal 13.0-18.0 [facility] Comment on above: Performed By: #### L AB17 #### [employer]fter: NEISHA DELGADO ([id number]) [facility]) [address] [place] [address] IMMATURE GRANS % 0.4 % Normal 0.0-2.0 [facility] Comment on above: Performed By: #### L AB17 #### [employer] Drafter: NEISHA DELGADO ([id number]) [facility]) [address] [place] [address] IMMATURE GRANS ABSOLUTE 0.0 10*3/uL Normal <0.1 [facility] Comment on above: Performed By: #### L AB17 #### [employer] Drafter: NEISHA DELGADO ([id number]) [facility]) [address] [place] [address] Lymphocytes (Bld) [#/Vol] 1.3 10*3/uL Normal 1.0-4.3 [facility] Comment on above: Performed By: #### L AB17 #### [employer]fter: NEISHA DELGADO ([id number]) [facility]) [address] [place] [address] Lymphocytes/100 WBC (Bld) 16.4 % Normal 15.0-45.0 [facility] Comment on above: Performed By: #### L AB17 #### [employer]fter: NEISHA DELGADO ([id number]) [facility]) [address] [place] [address] MCH (RBC) [Entitic mass] 30.8 pg Normal 26.0-34.0 [facility] Comment on above: Performed By: #### L AB17 #### [employer]fter: NEISHA DELGADO ([id number]) [facility] ([facility]) [address] [place] [address] MCHC 34.7 % Normal 30.5-36.0 [facility] Comment on above: Performed By: #### L AB17 #### [employer] Drafter: NEISHA DELGADO ([id number]) [facility]) [address] [place] [address] MCV (RBC) [Entitic vol] 88.6 fL Normal 77.0-99.0 [facility] Comment on above: Performed By: #### L AB17 #### [employer] Drafter: NEISHA DELGADO ([id number]) [facility]) [address] [place] [address] Monocytes (Bld) [#/Vol] 0.6 10*3/uL Normal 0.0-0.9 [facility] Comment on above: Performed By: #### L AB17 #### [employer] Drafter: NEISHA DELGADO ([id number]) [facility] [address] [place] [address] [place] Monocytes/100 WBC (Bld) 7.4 % Normal 5.0-13.0 [facility] Comment on above: Performed By: #### L AB17 #### [employer] Drafter: NEISHA DELGADO ([id number]) [facility] [address] [place] [address] NEUTROPHILS ABSOLUTE 5.8 10*3/uL Normal 1.8-7.5 [facility] Comment on above: Performed By: #### L AB17 #### [employer] Drafter: NEISHA DELGADO ([id number]) [facility] ([facility]) [address] [place] [address] Neutrophils/100 WBC (Bld) 75.4 % Normal 38.0-82.0 [facility] Comment on above: Performed By: #### L [id number] #### [employer] Drafter: NEISHA DELGADO ([id number]) [facility] [address] [place] [address] NRBC 0.0 /100 WBCs Normal 0.0-2.0 [facility] Comment on above: Performed By: #### L AB17 #### [employer]fter: NEISHA DELGADO ([id number]) [facility] ([facility]) [address] [place] [address] Platelet mean volume (Bld) [Entitic vol] 8.5 fL Low 9.0-12.7 [facility] Comment on above: Performed By: #### L [id number] #### [employer]fter: NEISHA DELGADO ([id number]) [facility] [address] [place] [address] [place] Platelets (Bld) [#/Vol] 212 10*3/uL Normal 140-440 [facility] Comment on above: Performed By: #### L AB17 #### [employer] Drafter: NEISHA DELGADO ([id number]) [facility] ([facility]) [address] [place] [address] [place] RBC (Bld) [#/Vol] 4.39 10*6/uL Low 4.40-5.90 [facility] Comment on above: Performed By: #### L [id number] #### [employer]fter: NEISHA DELGADO ([id number]) [facility]) [address] [place] [address] WBC (Bld) [#/Vol] 7.7 10*3/uL Normal 3.6-10.7 [facility] Comment on above: Performed By: #### L AB17 #### [employer]fter: NEISHA DELGADO ([id number]) [facility]) [address] [place] [address] COMPREHENSIVE METABOLIC PANE Shilo 12-01-2023 Albumin [Mass/Vol] 4.2 g/dL Normal 3.5-5.0 [facility] Comment on above: Performed By: #### L [id number] #### [employer]fter: NEISHA DELGADO ([id number]) [facility]) [address] [place] [address] ALP [Catalytic activity/Vol] 55 U/L Normal 38-126 [facility] Comment on above: Performed By: #### L [id number] #### [employer] Drafter: NEISHA DELGADO ([id number]) [facility]) [address] [place] [address] ALT [Catalytic activity/Vol] 25 U/L Normal 0-49 [facility] Comment on above: Performed By: #### L [id number] #### [employer]fter: NEISHA DELGADO ([id number]) [facility]) [address] [place] [address] Anion gap [Moles/Vol] 7 mmol/L Normal 3-13 [facility] Comment on above: Performed By: #### L AB17 #### [employer] Drafter: NEISHA DELGADO ([id number]) [facility]) [address] [place] [address] AST [Catalytic activity/Vol] 32 U/L Normal 15-46 [facility] Comment on above: Performed By: #### L [id number] #### [employer] Drafter: NEISHA DELGADO ([id number]) [facility] ([facility]) [address] [place] [address] [place] Bilirubin [Mass/Vol] 1.7 mg/dL High 0.2-1.3 [facility] Comment on above: Performed By: #### L AB17 #### [employer]fter: NEISHA DELGADO ([id number]) [facility] ([facility]) [address] [place] [address] Calcium [Mass/Vol] 9.2 mg/dL Normal 8.4-10.4 [facility] Comment on above: Performed By: #### L AB17 #### [employer]fter: NEISHA DELGADO ([id number]) [facility] [address] [place] [address] Chloride [Moles/Vol] 104 mmol/L Normal 98-107 [facility] Comment on above: Performed By: #### L AB17 #### [employer]fter: NEISHA DELGADO ([id number]) [facility] ([facility]) [address] [place] [address] CO2 [Moles/Vol] 24 mmol/L Normal 22-30 [facility] Comment on above: Performed By: #### L AB17 #### [employer] Drafter: NEISHA DELGADO ([id number]) [facility] ([facility]) [address] [place] [address] Creatinine [Mass/Vol] 1.11 mg/dL Normal 0.66-1.25 [facility] Comment on above: Performed By: #### L AB17 #### [employer] Drafter: NEISHA DELGADO ([id number]) [facility] ([facility]) [address] [place] [address] [place] GLOMERULAR FILTRATION RATE ML/MIN/1.73 SQ M.PREDICTED 81.4 mL/min/1.73m*2 Normal >60.0 [facility] Comment on above: Result Comment: Calc ulation based on the Chronic Kidney Disease Epidemiology Collaboration (CKD-EPI) equation refit without adjustment for race ORDER COMMENTS: Slightly Hemolyzed. Interpret ALBUMIN, ALKALINE PHOSPHATASE, AST, POTASSIUM, and TOTAL PROTEIN with caution. Performed By: #### L AB17 #### [employer]fter: NEISHA DELGADO ([id number]) [facility] [address] [place] [address] Glucose [Mass/Vol] 121 mg/dL High 70-100 [facility] Comment on above: Performed By: #### L AB17 #### [employer]fter: NEISHA DELGADO ([id number]) [facility] ([facility]) [address] [place] [address] Potassium [Moles/Vol] 4.1 mmol/L Normal 3.5-5.1 [facility] Comment on above: Performed By: #### L AB17 #### [employer]fter: NEISHA DELGADO ([id number]) [facility]) [address] [place] [address] Protein [Mass/Vol] 7.2 g/dL Normal 6.3-8.2 [facility] Comment on above: Performed By: #### L AB17 #### [employer]fter: NEISHA DELGADO ([id number]) [facility] ([facility]) [address] [place] [address] Sodium [Moles/Vol] 135 mmol/L Normal 135-145 [facility] Comment on above: Performed By: #### L AB17 #### [employer]: NEISHA DELGADO ([id number]) [facility]) [address] [place] [address] Urea nitrogen [Mass/Vol] 15 mg/dL Normal 9-20 [facility] Comment on above: Performed By: #### L AB17 #### [employer]fter: NEISHA DELGADO ([id number]) [facility] ([facility]) [address] [place] [address] CT Abdomen and Pelvis W cont rast [...] Electronically Signed Date/Time: 12/01/2023 5:02 AM EDT [facility] Name[facility]E [facility] 1975 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 Noncontrast CT chest is first performed with some residual contrast gallbladder and kidneys. Comparison CTA 2016. CT scan was performed by bolus contrast-enhanced scans of the chest, abdomen and pelvis. CT angiographic studies of the thoracic aorta, abdominal aorta, ileo femoral, and major visceral vessels was performed following the acquisition of high resolution helical CT data during the bolus contrast infusion. The data set was then post processed by myself on the [employer] workstation, with reconstructed 3D volume rendered and [...] areas of infiltrate/atelectasi s. Mild fatty liver. [facility] Yony Rogers MD - 12/01/2023 Patient [...] residual contrast gallbladder and kidneys. Comparison CTA 2016. CT scan was performed by bolus contrast-enhanced scans of the chest, abdomen and pelvis. CT angiographic studies of the thoracic aorta, abdominal aorta, ileo femoral, and major visceral vessels was performed following the acquisition of high resolution helical CT data during the bolus contrast infusion. The data set was then post processed by myself on the [employer] workstation, with reconstructed 3D volume rendered and [...] Electronically Signed Date/Time: 12/01/2023 5:02 AM EDT [facility] Radiology Study observation (narrative) [facility] CT Abdomen and Pelvis W cont rast IVOrdered By: Yony Rogers on 12-01-2023 [employer] Work Phone: CT CHEST ABDOMEN PELVIS RASHID OGRAM W AND/OR WO CONTRASTon 12-01-2023 CT CHEST ABDOMEN PELVIS ANGIOGRAM W AND/OR WO CONTRAST Patient Name: DONTAE PARRA [facility] 1975 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 Noncontrast CT chest is first performed with some residual contrast gallbladder and kidneys. Comparison CTA 2016. CT scan was performed by bolus contrast-enhanced scans of the chest, abdomen and pelvis. CT angiographic studies of the thoracic aorta, abdominal aorta, ileo femoral, and major visceral vessels was performed following the acquisition of high resolution helical CT data during the bolus contrast infusion. The data set was then post processed by myself on the [employer] workstation, with reconstructed 3D volume rendered and [...] phase, repeated just the chest region. Normal [facility] Comprehensive metabolic 1998 panelon 12-01-2023 Albumin [Mass/Vol] 4.2 g/dL 3.5 - 5.0 g/dL [facility] ALP [Catalytic activity/Vol] 55 U/L 38 - 126 U/L [facility] ALT [Catalytic activity/Vol] 25 U/L 0 - 49 U/L [facility] Anion gap [Moles/Vol] 7 mmol/L 3 - 13 mmol/L [facility] AST [Catalytic activity/Vol] 32 U/L 15 - 46 U/L [facility] Bilirubin [Mass/Vol] 1.7 mg/dL High 0.2 - 1 .3 mg/dL [facility] Calcium [Mass/Vol] 9.2 mg/dL 8.4 - 10. 4 mg/dL [facility] Chloride [Moles/Vol] 104 mmol/L 98 - 10 7 mmol/L [facility] CO2 [Moles/Vol] 24 mmol/L 22 - 30 mmol/L [facility] Creatinine [Mass/Vol] 1.11 mg/dL 0.66 - 1.25 mg/dL [facility] GFR/1.73 sq M.predicted (S/P/Bld) [Vol rate/Area] 81.4 mL/min - PINF [facility] Comment on above: Calculation based on the Chronic Kidney Disease Epidemiology Collaboration (CKD-EPI) equation refit without adjustment for race Glucose [Mass/Vol] 121 mg/dL High 70 - 100 mg/dL [facility] Interpretation and review of laboratory results Abnormal [facility] Potassium [Moles/Vol] 4.1 mmol/L 3.5 - 5.1 mmol/L [facility] Protein [Mass/Vol] 7.2 g/dL 6.3 - 8.2 g/dL [facility] Sodium [Moles/Vol] 135 mmol/L 135 - 145 mmol/L [facility] Urea nitrogen [Mass/Vol] 15 mg/dL 9 - 20 mg/dL [facility] Slightly Hemolyzed. Interpret ALBUMIN, ALKALINE PHOSPHATASE, AST, POTASSIUM, and TOTAL PROTEIN with caution. [facility] Consulton 12-01-2023 Consult Ortho Spine Consult Patient: Dontae Parra Date of : 1975 Acct: [id number] PCP: Dylan Magallon Date of Admission: 12/01/2023 [...] artery disease) COPD (chronic obstructive pulmonary disease) ([facility]) Emphysema of lung ([facility]) 2010 Erectile dysfunction GERD (gastroesophageal reflux disease) History of echocardiogram 10/20/2015 EF 50%, trivial MR History of percutaneous coronary intervention 02/11/2016 RICHY - prox RCA, RICHY - mid RCA, patent ramus stent, EF 50-55% Hyperlipidemia Hypertension Hypotestosteronism Presence of stent in coronary artery Restless leg STEMI (ST elevation myocardial infarction) ([facility]) 09/2015 posterior wall Tobacco use disorder Past [...] Tobacco comments: (more content not included)... Normal [facility] ED Nursing Noteon 12-01-2023 ED Nursing Note Patient ambulatory t o bathroom with steady gait Jaz Ayoub RN 12/01/23 7236 Normal [facility] ED Nursing Note Provider at bedside for marita Jaz Ayoub RN 12/01/23 7960 Normal [facility] ED Nursing Note Patient sat up eatin g breakfast at this time, provided with extra juice per request, family at bedside, denies current needs at this time, call bernal within reach, care is ongoing Jaz Ayoub RN 12/01/23 0836 [facility] ED Nursing Note Dr. Jones at bedside Jaz Ayoub RN 12/01/23 0742 [facility] ED Provider Noteon ED Provider Note EMERGENCY DEPARTMENT ENCOUNTER Pt Name: Dontae Parra Birthdate 1975 Date of evaluation: 12/01/2023 ED Provider: Missy Jones DO CHIEF COMPLAINT Chief Complaint Patient presents with Abdominal Injury Transfer from [place] for trauma consult. Fall from tree stand 15-17 feet. 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) Emphysema of lung ([facility]) 2010 Erectile dysfunction GERD (gastroesophageal reflux disease) History of echocardiogram 10/20/2015 EF 50%, trivial MR History of percutaneous coronary intervention 02/11/2016 RICHY - prox RCA, RICHY - mid RCA, patent ramus stent, EF 50-55% Hyperlipidemia Hypertension Hypotestosteronism Presence of stent in coronary artery Restless leg STEMI (ST elevation myocardial infarction) ([facility]) 09/2015 posterior wall Tobacco use disorder SURGICAL [...] fluid drai (more content not included)... Normal [facility] ED Provider Note Emergency Department Encounter [facility] [...] to that sys (more content not included)... Normal [facility] Nursing Noteon 12-01-2023 Nursing Note Pt discharging at this time. All belongings collected. Discharge packet reviewed with all questions answered. Normal [facility] XR Ankle - left 3 Viewson Patient Name: DONTAE PARRA : 1975 Exam Date/Time: 12/01/2023 05:57 Procedure: XR ANKLE 3+ VIEWS LEFT Ordering Provider: THOMAS AKASH Reason For Exam: Trauma HISTORY: Trauma three views left ankle shows no evidence of fracture. Report Dictated on Electronically Signed By: Yony Rogers MD Electronically Signed Date/Time: 12/01/2023 6:08 AM EDT [facility] Yony Rogers MD - 12/01/2023 Patient Name: DONTAE PARRA : 1975 Exam Date/Time: 12/01/2023 05:57 Procedure: XR ANKLE 3+ VIEWS LEFT Ordering Provider: THOMAS AKASH Reason For Exam: Trauma HISTORY: Trauma three views left ankle shows no evidence of fracture. Report Dictated on Electronically Signed By: Yony Rogers MD Electronically Signed Date/Time: 12/01/2023 6:08 AM EDT [facility] Radiology Study observation (narrative) Oraliawayne lopez XR Shoulder - right 2 Viewso n 12-01-2023 1. Negative examination of the right shoulder. Report Dictated on Electronically Signed By: Yony Rogers MD Electronically Signed Date/Time: 12/01/2023 6:08 AM EDT [facility] Patient Name: DONTAE PARRA : 1975 Exam Date/Time: 12/01/2023 05:56 Procedure: XR SHOULDER 2+ VIEWS RIGHT Ordering Provider: THOMAS AKASH Reason For Exam: Trauma CLINICAL INFORMATION: Trauma Frontal, axillary and Y views of the right shoulder were obtained. Bone density appears normal. No fracture or dislocation is noted. The joint spaces are within normal limits. There are no significant soft tissue abnormalities. [facility] Yony Rogers MD - 12/01/2023 Patient [...] Signed Date/Time: 12/01/2023 6:08 AM EDT [facility] Radiology Study observation (narrative) [facility] alth CBC + DIFFon 11-30-2023 Baso # 0.03 x10EE3/UL Normal 0.00 - 0.10 [facility] Comment on above: Performed By: #### 2 37289 ####[place] [address] Basophils/100 WBC (Bld) 0.3 % Normal 0.0 - 2.0 [facility] Comment on above: Performed By: #### 2 16575 ####[place] [address] CBC + DIFF Normal [facility] Comment on above: Result Comment: CBC- COMPLETE BLOOD COUNT Performed By: #### 2 92655 ####[facility],[address] [place] [address] EO # 0.04 x10EE3/UL Normal 0.00 - 0.50 [facility] Comment on above: Performed By: #### 2 64674 ####[facility],[address] [place] [address] Eosinophils/100 WBC (Bld) 0.4 % Normal 0.0 - 7.0 [facility] Comment on above: Performed By: #### 2 31414 ####[facility],[address] [place] [address] Erythrocyte distribution width (RBC) [Ratio] 13.5 % Normal 12.0 - 15.6 [facility] Comment on above: Performed By: #### 2 88743 ####[facility],[address] [place] [address] Hematocrit (Bld) [Volume fraction] 43.5 % Normal 40.0 - 52.0 [facility] Comment on above: Performed By: #### 2 06725 ####[facility],[address] [place] [address] Hemoglobin (Bld) [Mass/Vol] 14.7 g/dL Normal 13.0 - 17.5 [facility] Comment on above: Performed By: #### 2 49626 ####[facility],[address] [place] [address] Lymph # 1.47 x10EE3/UL Normal 0.80 - 2.80 [facility] Comment on above: Performed By: #### 2 21796 ####[facility],[address] [place], [place] [address] Lymphocytes/100 WBC (Bld) 13.9 % Low 20 .0 - 45.0 [facility] Comment on above: Performed By: #### 2 22200 ####[facility],[address] [place] [address] MANUAL DIFF N/A Normal [facility] Comment on above: Performed By: #### 2 28477 ####[facility],[address] [place] [address] MCH (RBC) [Entitic mass] 31 pg Normal 27 - 33 [facility] Comment on above: Performed By: #### 2 72077 ####[facility],[address] [place] [address] MCHC 34 X10 3 Normal 32 - 36 [facility] Comment on above: Performed By: #### 2 51407 ####[facility],[address] [place] [address] MCV (RBC) [Entitic vol] 91 fL Normal 81 - 98 [facility] Comment on above: Performed By: #### 2 49854 ####[facility],[address] [place] [address] [place] # 0.70 x10EE3/UL Normal 0.20 - 1.00 [facility] Comment on above: Performed By: #### 2 50695 ####[facility],[address] [place] [address] MONOS % 6.6 % Normal 0.0 - 10.0 [facility] Comment on above: Performed By: #### 2 60767 ####[facility],[address] [place] [address] Morphology Nakul (Bld) [Interp] SEE BELOW Normal [facility] Comment on above: Performed By: #### 2 09639 ####[facility],[address] [place] [address] Neut # 8.37 x10EE3/UL High 1.50 - 7.10 [facility] Comment on above: Performed By: #### 2 42832 ####[facility],[address] [place] [address] 31258 Neutrophils/100 WBC (Bld) 78.9 % High 46 .0 - 76.0 [facility] Comment on above: Performed By: #### 2 72873 ####[facility],[address] [place] [address] 46906 PLATELET 236 x10EE3/UL Normal 150 - 450 [facility] Comment on above: Performed By: #### 2 20732 ####[facility],[address] [place] [address] 62690 Platelet mean volume (Bld) [Entitic vol] 6.1 fL Low 6.4 - 10.5 [facility] Comment on above: Result Comment: AUTO MATED DIFFERENTIAL Performed By: #### 2 44787 ####[facility],[address] [place] [address] 72447 PLT EST NORMAL Normal [facility] Comment on above: Performed By: #### 2 35511 ####[facility],[address] [place] [address] 78321 RBC 4.78 x 10EE6/UL Normal 4.50 - 6.00 [facility] Comment on above: Performed By: #### 2 68826 ####[facility],[address] [place] [address] 66946 WBC 10.6 x 10EE3/UL Normal 4.5 - 10.8 [facility] Comment on above: Performed By: #### 2 03357 ####[facility],[address] [place] [address] 07540 CMP with eGFRon 11-30-2023 AGE 48 years Normal [facility] Comment on above: Performed By: #### 2 87336 ####[facility],[address] [place] [address] 63390 Albumin [Mass/Vol] 3.7 g/dL Normal 3.4 - 5.0 [facility] Comment on above: Performed By: #### 2 27585 ####[facility],[address] [place] [address] 29584 Albumin/Globulin [Mass ratio] 1.1 {ratio} Normal 0.9 - 1.6 [facility] Comment on above: Performed By: #### 2 86204 ####[facility],[address] [place] [address] 82235 ALK PHOS 91 U/L Normal 46 - 116 [facility] Comment on above: Performed By: #### 2 51116 ####[facility],[address] [place] [address] 06234 ALT [Catalytic activity/Vol] 32 U/L Normal 16 - 63 [facility] Comment on above: Performed By: #### 2 23762 ####[facility],[address] [place] [address] 01347 Anion gap [Moles/Vol] 9 mmol/L Low 10 - 20 [facility] Comment on above: Performed By: #### 2 91960 ####[facility],[address] [place] [address] 43421 AST [Catalytic activity/Vol] 25 U/L Normal 15 - 37 [facility] Comment on above: Performed By: #### 2 62766 ####[facility],[address] [place] [address] 68963 B/C RATIO 13 ratio Normal 0 - 30 [facility] Comment on above: Performed By: #### 2 83634 ####[facility],[address] [place] [address] 24932 Bilirubin [Mass/Vol] 0.6 mg/dL Normal 0.2 - 1.0 [facility] Comment on above: Performed By: #### 2 31978 ####[facility],[address] [place] [address] 29705 Calcium [Mass/Vol] 9.0 mg/dL Normal 8.5 - 10.1 [facility] Comment on above: Performed By: #### 2 10177 ####[facility],[address] [place] [address] 38199 Chloride [Moles/Vol] 105 mmol/L Normal 98 - 107 [facility] Comment on above: Performed By: #### 2 68972 ####[facility],[address] [place] [address] 83886 CMP with eGFR Normal [facility] Comment on above: Result Comment: COMP REHENSIVE METABOLIC PANEL Performed By: #### 2 69195 ####[facility],[address] [place] [address] 09131 CO2 [Moles/Vol] 28.6 mmol/L Normal 21.0 - 32.0 [facility] Comment on above: Performed By: #### 2 80770 ####[facility],[address] [place] [address] 64049 Creatinine [Mass/Vol] 1.40 mg/dL High 0.70 - 1.30 [facility] Comment on above: Performed By: #### 2 75670 ####[facility],[address] [place] [address] 81423 eGFR 54 ML/MINUTE Low 60 - 999 [facility] Comment on above: Performed By: #### 2 38037 ####[facility],[address] [place] [address] 77498 GFR/1.73 sq M.predicted among non-blacks MDRD (S/P/Bld) [Vol rate/Area] mL/min/{1.73_m2} Normal 60 - 999 [facility] Comment on above: Result Comment: ACCO RDING TO THE NATIONAL KIDNEY DISEASE EDUCATION PROGRAM(NKDE), A NORMAL eGFR IS A VALUE GREATER THAN OR EQUAL TO 60 ML/MIN/1.73 SQ METERS. CHRONIC KIDNEY DISEASE: <60mL/MIN/1.73 SQ METERS KIDNEY FAILURE: <15mL/MIN/1.73 SQ METERS THIS TEST SHOULD ONLY BE USED FOR PATIENTS 18 YEARS OF AGE AND OLDER. Performed By: #### 2 60543 ####[facility],[address] [place] [address] 00731 Globulin (S) [Mass/Vol] 3.4 g/dL Normal 1.5 - 3.8 [facility] Comment on above: Performed By: #### 2 82924 ####[facility],[address] [place] [address] 91040 Glucose [Mass/Vol] 100 mg/dL Normal 74 - 106 [facility] Comment on above: Performed By: #### 2 00015 ####[facility],[address] [place] [address] 00765 Potassium [Moles/Vol] 3.8 mmol/L Normal 3.5 - 5.1 [facility] Comment on above: Performed By: #### 2 92201 ####[facility],[address] [place] [address] 57185 Protein [Mass/Vol] 7.1 g/dL Normal 6.4 - 8.2 [facility] Comment on above: Performed By: #### 2 02423 ####[facility],[address] [place] [address] 89679 Sodium [Moles/Vol] 139 mmol/L Normal 136 - 145 [facility] Comment on above: Performed By: #### 2 80215 ####[facility],[address] [place] [address] 19277 Urea nitrogen [Mass/Vol] 18 mg/dL Normal 7 - 18 [facility] Comment on above: Performed By: #### 2 73773 ####[facility],[address] [place] [address] BRAIN W/O CONTRAST 11-19 CT BRAIN W/O CONTRAST [place] [address] Patient: DONTAE PARRA Phone#: : 1975 Age: 48 Gender: M Pt. Type: ER Account: [id number] Location: 052 Ordering: MUMATZ HOLLEY Exam Date: 11/30/2023/20:55 Family Phys: Charge Code: 039165 Physician: Kent Order #: [id number] Dose#: 52.3 PROCEDURE: CT BRAIN WITHOUT CONTRAST [...] Londono MD on 12/02/2023 at 18:31 Normal [facility] CT CERVICAL W/O CONTRASTon 1 CT CERVICAL W/O CONTRAST [place] [address] Patient: DONTAE PARRA Phone#: : 1975 Age: 48 Gender: M Pt. Type: ER Account: [id number] Location: 052 Ordering: MUMTAZ HOLLEY Exam Date: 11/30/2023/20:55 Family Phys: Charge Code: 138231 Physician: Kent Order #: [id number] Dose#: 14.7 PROCEDURE: CT CERVICAL WITHOUT CONTRAST [...] Londono MD on 12/02/2023 at 18:48 Normal [facility] CT CHEST/ABD/PELVIS C+on CT CHEST/ABD/PELVIS C+ [place] [address] Patient: DONTAE PARRA Phone#: : 1975 Age: 48 Gender: M Pt. Type: ER Account: [id number] Location: [facility] Ordering: MUMTAZ HOLLEY Exam Date: 11/30/2023/21:02 Family Phys: Charge Code: 789274 Physician: Kent Order #: [id number] Dose#: 31.4 PROCEDURE: CT CHEST/ABD/PELVIS W COMPARISON: [...] 48 Gender: M Pt. Type: ER Account: [id number] Location: [facility] Ordering: MUMTAZ HOLLEY Exam Date: 11/30/2023/21:02 Family Phys: Charge Code: 366019 Physician: Kent Order #: [id number] Dose#: 31.4 etiology. At the L3-4 level [...] MD on 12/03/2023 at 10:54 Approved by: Chrisitna Londono MD on 12/03/2023 at 11:03 Normal [facility] LIPASEon 11-30-2023 Lipase [Catalytic activity/Vol] 26.0 U/L Normal 15.0 - 78.0 [facility] Comment on above: Result Comment: *PLE ASE NOTE THAT RANGES FOR LIPASE HAVE CHANGED OF 02/16/23 DUE TO AN ASSAY UPDATE BY THE SPOOL CLEANER HAND.THE NEW ASSAY RANGE IS 6-250 U/L, WITH A REFERENCE RANGE OF 16-77 U/L. Performed By: #### 2 32291 #### [facility],[address] [place] [address] 74909 TROPONINon 11-30-2023 HS TROPONIN <4.0 Normal 0.0 - 76.2 [facility] Comment on above: Performed By: #### 2 24478 #### [facility],[address] [place] [address] 10538 CREATININE FINGERSTICKon CREATININE WB < 1.0 Normal 0.70-1.30 [facility] Comment on above: Performed By: #### L 9100.0200 #### [facility] [address] [place], [place], [address] EGFR WB > 60.0000 Normal >60 [facility] Comment on above: Performed By: #### L 9100.0200 #### [facility] [address] [place], [address] Spine Lumbar W/WO Contraston 11-20-2023 Spine Lumbar W/WO Contrast [facility] [address] [place], [place] [address] Spine Lumbar W/WO Contrast MR#: [id number] Acct: [id number] Name: DONTAE PARRA Rep #: [id number] : 1975 M 48 From: Kurtis Guzman MD PCP: JEANNIE HERNANDEZ Status: REG CLI Study: Spine Lumbar W/WO Contrast Date of Exam: 03/14 Exam# [id number] Ordering Dr: JOSE NAPIER [id number] STUDY: MRI LUMBAR SPINE WITH AND WITHOUT [...] 23:08 EDT Reading Location ID and State: [facility] / [place] Tel , Service support , CC: JEANNIE HERNANDEZ; JOSE NAPIER Administrative Assistant Data Entry: Signed Normal [facility] MR/BMS.BPon 11-06-2023 MR/BMS.BP [address], [address] [place] [address] OFFICE VISIT Date of Service: 11/06/23 MR#: [id number] Acct: [id number] Name: DONTAE PARRA Rep #: [id number] : 1975 Provider: JOEL naranjo Age/Sex: 48/M Location: [facility] Status: Signed Intake Vital Signs 10/08/23 10:58 [...] 20 mg PO DAILY 06/15/22 11/06/23 History capsule,ext.[id number] hr multiphase montelukast 10 mg tablet 10 [...] Pt unaware of who initially prescribed lexapro. PFSH Medical History Mild sleep apnea Chronic cough Nicotine dependence Family history of ischemic heart disease and other diseases of the circulatory system Presence of stent in coronary artery ( 02/01/22) Old myocardial infarction Primary snoring Nicotine addiction Hemoptysis Nicotine dependence, cigarettes, uncomplicated Abdominal distension (gaseous) Unspecified systolic (congestive) heart failure Hyperlipidemia Atherosclerosis of coronary artery of [place] heart without angina pectoris Chest pain Noncompliance [...] with feelin (more content not included)... Normal [facility] Absolute lymphocyte countOrd ered By: Jose R Schmitz on 01-24-2023 Lymphocytes Auto (Unsp spec) [#/Vol] 2.62 10*3/uL 0.83-4.51 [facility] Basophil percentageOrdered B y: Jose R Schmitz on 01-24-2023 Basophils/100 WBC (Bld) 0.4 % 0-1 [facility] Bilirubin [Mass/Vol] 0.50 mg/dL 0.20-1.00 [facility] Comment on above: For patients on eltr ombopag therapy, use of Dimension [place] TBIL is not recommended. Chloride [Moles/Vol] 105 mmol/L 98-107 [facility] Eosinophils/100 WBC (Bld) 2.0 % 0-5 [facility] Glucose [Mass/Vol] 119 mg/dL 74-106 [facility] Comment on above: Fasting Glucose resu lt from 100 to 125 mg/dL suggests IMPAIRED HOMEOSTASIS per A.D.A. criteria. Neutrophils (Bld) [#/Vol] 7.3 10*3/uL 2.0-7.7 [facility] Neutrophils/100 WBC (Bld) 66.4 % 47-70 [facility] Potassium [Moles/Vol] 4.1 mmol/L 3.5-5.1 [facility] Comment on above: Moderate Hemolysis, Result may be falsely increased. Protein [Mass/Vol] 7.6 g/dL 6.4-8.2 [facility] Sodium [Moles/Vol] 138 mmol/L 136-145 [facility] WBC (Bld) [#/Vol] 11.0 10*3/uL 4.4-11.0 [facility] Blood erythrocytes count (nu mber/volume)Ordered By: Jose R Schmitz on 01-24-2023 RBC (Bld) [#/Vol] 4.83 10*6/uL 4.6-6.2 [facility] Blood hemoglobin measurement (mass/volume)Ordered By: Jose R Schmitz on 01-24-2023 Hemoglobin (Bld) [Mass/Vol] 14.9 g/dL 13.0-16.5 [facility] Blood lymphocytes/100 leukoc ytesOrdered By: Jose R Schmitz on 01-24-2023 Lymphocytes/100 WBC (Bld) 23.9 % 19-41 [facility] Blood manual differential co mment interpretation (narrative result)Ordered By: Jose R Schmitz on 01-24-2023 Manual differential comment Nakul (Bld) [Interp] SCANNED [place] [facility] Blood monocytes/100 leukocyt esOrdered By: Jose R Schmitz on 01-24-2023 Monocytes/100 WBC (Bld) 6.8 % 0-10 [facility] Blood platelet adequacy dete ction by light microscopyOrdered By: Jose R Schmitz on 01-24-2023 Platelets LM Ql (Bld) ADEQUATE ADEQ [facility] Blood platelet mean volumeOr dered By: Jose R Schmitz on 01-24-2023 Platelet mean volume (Bld) [Entitic vol] 9.4 fL 6.2-12.0 [facility] Determination of erythrocyte mean corpuscular volume (MCV)Ordered By: Jose R Schmitz on 01-24-2023 MCV (RBC) [Entitic vol] 90.5 fL 80-94 [facility] Direct bilirubinOrdered By: Jose R Schmitz on 01-24-2023 Bilirubin.direct [Mass/Vol] 0.07 mg/dL 0.00-0.30 [facility] Hematocrit Auto (Bld) [Volum e fraction]Ordered By: Jose R Schmitz on 01-24-2023 Hematocrit (Bld) [Volume fraction] 43.7 % 40-54 [facility] INR in Blood by Coagulation assayOrdered By: Jose R Schmitz on 01-24-2023 INR Coag (Bld) [Relative time] 0.9 {INR} [facility] Laboratory - Chemistry and C hemistry - challengeOrdered By: Jose R Schmitz on 01-24-2023 ALP [Catalytic activity/Vol] 96 U/L 45-117 [facility] ALT [Catalytic activity/Vol] 21 U/L 16-61 [facility] CO2 [Moles/Vol] 25.0 mmol/L 21.0-32.0 [facility] Globulin (S) [Mass/Vol] 4.0 g/dL 2.2-4.2 [facility] Lipase [Catalytic activity/Vol] 38 U/L 13-75 [facility] Comment on above: Please note:LIPASE r evised reference range effective 22. New Lipase methodology. Expected to produce lower values than the previous assay method. NEW Reference Range: 13 - 75 U/L Urea nitrogen/Creatinine [Mass ratio] 15.5 mg/mg 10-20 [facility] Laboratory - CoagulationOrde red By: Jose R Schmitz on 01-24-2023 aPTT Coag (Bld) [Time] 24.4 s 24.1-36.[address] [facility] PT Coag (PPP) [Time] 12.0 s 11.7-14.9 [facility] - Hematology and Cell countsOrdered By: Jose R Schmitz on 01-24-2023 Erythrocyte distribution width (RBC) [Entitic vol] 42.6 fL 35.1-43.9 [facility] Erythrocyte distribution width (RBC) [Ratio] 13.0 % 11.6-14.6 [facility] Immature granulocytes/100 WBC (Bld) 0.500 % 0.0-0.9 [facility] Comment on above: IG% - Immature Granu locytes (promyelocytes, myelocytes and metamyelocytes) > 1% indicates that a LEFT SHIFT is Present. MCH (RBC) [Entitic mass] 30.8 pg 27.0-32.0 [facility] Nucleated RBC/100 WBC (Bld) [Ratio] 0 % 0-5 [facility] MCHC Auto (RBC) [Mass/Vol]Or dered By: Jose R Schmitz on 01-24-2023 MCHC (RBC) [Mass/Vol] 34.1 g/dL 32-36 [facility] No Panel InformationOrdered By: Jose R Schmitz on 01-24-2023 Estimated Creatinine Clearance Calc 85.48 ml/min [facility] Estimated GFR (MDRD) Amer 86 mL/min >60 [facility] Comment on above: GFR Calc Estimated GFR (MDRD) Non-Af Amer 71 mL/min >60 [facility] Comment on above: Non- GFR Calc Troponin I High Sensitivity 4 pg/mL 3.0-78.0 [facility] Comment on above: Please Note: New Rajni t Units and Gender Specific Reference Ranges. For more information see Policy Stat Procedure [place] High Sensitivity Troponin (TNIH) and attachments. Platelets bldOrdered By: Alireza Schmitz on 01-24-2023 Platelets (Bld) [#/Vol] 274 10*3/uL 150-450 [facility] Serum or plasma albumin sherwin urement (mass/volume)Ordered By: Jose R Schmitz on 01-24-2023 Albumin [Mass/Vol] 3.6 g/dL 3.2-5.0 [facility] Serum or plasma calcium sherwin urement (mass/volume)Ordered By: Jose R Schmitz on 01-24-2023 Calcium [Mass/Vol] 9.0 mg/dL 8.5-10.1 [facility] Serum or plasma creatinine m easurement (mass/volume)Ordered By: Jose R Schmitz on 01-24-2023 Creatinine [Mass/Vol] 1.16 mg/dL 0.70-1.30 [facility] Comment on above: The validity of the calculated GFR & GFRAA in patients over 70 years has not been determined. Clinical correlation is essential. Serum or plasma urea nitroge n measurement (mass/volume)Ordered By: Jose R Schmitz on 01-24-2023 Urea nitrogen [Mass/Vol] 18 mg/dL 7-18 [facility] Thin prep Papanicolaou smear with manual screeningOrdered By: Jose R Schmitz on 01-24-2023 Thin prep Papanicolaou smear with manual screening 22 U/L 15-37 [facility] Comment on above: Moderate Hemolysis, Result may be falsely increased. Thin prep Papanicolaou smear with manual screening 8 5-15 [facility] Absolute lymphocyte countOrd ered By: Elda Villegas on 01-22-2023 Lymphocytes Auto (Unsp spec) [#/Vol] 2.43 10*3/uL 0.83-4.51 [facility] Basophil percentageOrdered B y: Elda Villegas on 01-22-2023 Amylase [Catalytic activity/Vol] 53 U/L 25-115 [facility] Basophils/100 WBC (Bld) 0.4 % 0-1 [facility] Chloride [Moles/Vol] 108 mmol/L 98-107 [facility] Eosinophils/100 WBC (Bld) 2.3 % 0-5 [facility] Glucose [Mass/Vol] 85 mg/dL 74-106 [facility] Neutrophils (Bld) [#/Vol] 7.4 10*3/uL 2.0-7.7 [facility] Neutrophils/100 WBC (Bld) 66.5 % 47-70 [facility] Potassium [Moles/Vol] 3.9 mmol/L 3.5-5.1 [facility] Sodium [Moles/Vol] 140 mmol/L 136-145 [facility] WBC (Bld) [#/Vol] 11.1 10*3/uL 4.4-11.0 [facility] Blood erythrocytes count (nu mber/volume)Ordered By: Elda Villegas on 01-22-2023 RBC (Bld) [#/Vol] 4.81 10*6/uL 4.6-6.2 [facility] Blood hemoglobin measurement (mass/volume)Ordered By: Elda Villegas on 01-22-2023 Hemoglobin (Bld) [Mass/Vol] 14.8 g/dL 13.0-16.5 [facility] Blood lymphocytes/100 leukoc ytesOrdered By: Elda Villegas on 01-22-2023 Lymphocytes/100 WBC (Bld) 21.8 % 19-41 [facility] Blood monocytes/100 leukocyt esOrdered By: Elda Villegas on 01-22-2023 Monocytes/100 WBC (Bld) 8.6 % 0-10 [facility] Blood platelet mean volumeOr dered By: Elda Villegas on 01-22-2023 Platelet mean volume (Bld) [Entitic vol] 8.0 fL 6.2-12.0 [facility] Determination of erythrocyte mean corpuscular volume (MCV)Ordered By: Elda Villegas on 01-22-2023 MCV (RBC) [Entitic vol] 91.3 fL 80-94 [facility] Hematocrit Auto (Bld) [Volum e fraction]Ordered By: Elda Villegas on 01-22-2023 Hematocrit (Bld) [Volume fraction] 43.9 % 40-54 [facility] Laboratory - Chemistry and C hemistry - challengeOrdered By: Elda Villegas on 01-22-2023 CO2 [Moles/Vol] 27.0 mmol/L 21.0-32.0 [facility] Lipase [Catalytic activity/Vol] 33 U/L 13-75 [facility] Comment on above: Please note:LIPASE r evised reference range effective 22. New Lipase methodology. Expected to produce lower values than the previous assay method. NEW Reference Range: 13 - 75 U/L Magnesium [Mass/Vol] 2.2 mg/dL 1.6-2.6 [facility] Natriuretic peptide B (Bld) [Mass/Vol] 11.8 pg/mL 0-100 [facility] Urea nitrogen/Creatinine [Mass ratio] 12.4 mg/mg 10-20 [facility] Laboratory - Hematology and Cell countsOrdered By: Elda Villegas on 01-22-2023 Erythrocyte distribution width (RBC) [Entitic vol] 44.1 fL 35.1-43.9 [facility] Erythrocyte distribution width (RBC) [Ratio] 13.2 % 11.6-14.6 [facility] Immature granulocytes/100 WBC (Bld) 0.400 % 0.0-0.9 [facility] Comment on above: IG% - Immature Granu locytes (promyelocytes, myelocytes and metamyelocytes) > 1% indicates that a LEFT SHIFT is Present. MCH (RBC) [Entitic mass] 30.8 pg 27.0-32.0 [facility] Nucleated RBC/100 WBC (Bld) [Ratio] 0 % 0-5 [facility] [facility] MCHC Auto (RBC) [Mass/Vol]Or dered By: Elda Villegas on 01-22-2023 MCHC (RBC) [Mass/Vol] 33.7 g/dL 32-36 [facility] No Panel InformationOrdered By: Elda Villegas on 01-22-2023 D-Dimer Quantitative (PE/DVT) < 0.27 FEU/ug/m 0.27-0.49 [facility] Comment on above: NORMAL D-Dimer level (<0.50) indicates no DVT or PE. Estimated GFR (MDRD) Amer 89 mL/min >60 [facility] Comment on above: GFR Calc Estimated GFR (MDRD) Non-Af Amer 73 mL/min >60 [facility] Comment on above: Non- GFR Calc Troponin I High Sensitivity 7 pg/mL 3.0-78.0 [facility] Comment on above: Please Note: New Rajni t Units and Gender Specific Reference Ranges. For more information see Policy Stat Procedure [place] High Sensitivity Troponin (TNIH) and attachments. Platelets bldOrdered By: Jatin Villegas on 01-22-2023 Platelets (Bld) [#/Vol] 301 10*3/uL 150-450 [facility] Serum or plasma calcium sherwin urement (mass/volume)Ordered By: Elda Villegas on 01-22-2023 Calcium [Mass/Vol] 9.2 mg/dL 8.5-10.1 [facility] Serum or plasma creatinine m easurement (mass/volume)Ordered By: Elda Villegas on 01-22-2023 Creatinine [Mass/Vol] 1.13 mg/dL 0.70-1.30 [facility] Comment on above: The validity of the calculated GFR & GFRAA in patients over 70 years has not been determined. Clinical correlation is essential. Serum or plasma urea nitroge n measurement (mass/volume)Ordered By: Elda Villegas on 01-22-2023 Urea nitrogen [Mass/Vol] 14 mg/dL 7-18 [facility] Thin prep Papanicolaou smear with manual screeningOrdered By: Elda Villegas on 01-22-2023 Thin prep Papanicolaou smear with manual screening 5 5-15 [facility] Alternaria alternata IgE ser umOrdered By: Frances Fuchs on 10-05-2022 A. alternata IgE Qn (S) <0.10 kU/L Class 0 [facility] Atypical perinuclear antineu trophil cytoplasmic antibodies measurementOrdered By: Frances Fuchs on 10-05-2022 Neutrophil cytoplasmic Ab.perinuclear.atypical IF (S) [Titer] <1:20 titer Neg:<1:20 [facility] Comment on above: The atypical pANCA p attern has been observed in asignificant percentage of patients with ulcerative colitis,primary sclerosing cholangitis and autoimmune hepatitis. Basophil percentageOrdered B y: Frances Fuchs on 10-05-2022 WBC (Bld) [#/Vol] 8.6 10*3/uL 4.4-11.0 [facility] Blood erythrocytes count (nu mber/volume)Ordered By: Frances Fuchs on 10-05-2022 RBC (Bld) [#/Vol] 4.93 10*6/uL 4.6-6.2 [facility] Blood hemoglobin measurement (mass/volume)Ordered By: Frances Fuchs on 10-05-2022 Hemoglobin (Bld) [Mass/Vol] 15.8 g/dL 13.0-16.5 [facility] Blood platelet mean volumeOr dered By: Frances Fuchs on 10-05-2022 Platelet mean volume (Bld) [Entitic vol] 8.1 fL 6.2-12.0 [facility] Determination of erythrocyte mean corpuscular volume (MCV)Ordered By: Frances Fuchs on 10-05-2022 MCV (RBC) [Entitic vol] 90.9 fL 80-94 [facility] Gram stain for investigation of transfusion reactionOrdered By: Frances Fuchs on 10-05-2022 Microscopic observation Gram stain Nom [facility] Hematocrit Auto (Bld) [Volum e fraction]Ordered By: Frances Fuchs on 10-05-2022 Hematocrit (Bld) [Volume fraction] 44.8 % 40-54 [facility] Laboratory - Hematology and Cell countsOrdered By: Frances Fuchs on 10-05-2022 Erythrocyte distribution width (RBC) [Entitic vol] 44.8 fL 35.1-43.9 [facility] Erythrocyte distribution width (RBC) [Ratio] 13.5 % 11.6-14.6 [facility] MCH (RBC) [Entitic mass] 32.0 pg 27.0-32.0 [facility] Laboratory - Miscellaneous t estsOrdered By: Frances Fuchs on 10-05-2022 Service comment ([facility] spec) [Interp] Comment . [facility] Comment on above: Levels of Specific I [...] 10-05-2022 MCHC (RBC) [Mass/Vol] 35.3 g/dL 32-36 [facility] Microbial respiratory cultur eOrdered By: Frances Fuchs on 10-05-2022 Bacteria identified Respiratory culture Nom (Unsp spec) [facility] No Panel InformationOrdered By: Frances Fuchs on 10-05-2022 Common Ragweed (Short) Allergen <0.10 kU/L Class 0 [facility] Greek Plantain Allergen (RAST) <0.10 kU/L Class 0 [facility] Immunoglobulin E 22 IU/mL 6-495 [facility] Comment on above: Performed at: [facility] [address] [id number] Director: Trent Live PhD, Phone: [phone] at: [employer] [id number] Director: Court Thorpe MD, Phone: [phone] Mouse Urine Allergen IgE Antibody <0.10 kU/L Class 0 [facility] Comment on above: Performed at: [employer] [address] [id number] Director: Court Thorpe MD, Phone: [phone] Platelets bldOrdered By: Kristin Fuchs on 10-05-2022 Platelets (Bld) [#/Vol] 279 10*3/uL 150-450 [facility] Serum Aspergillus flavus ant ibody detection by immunodiffusionOrdered By: Frances Fuchs on 10-05-2022 A. flavus Ab Immune diff Ql (S) Negative Neg:<1:1 [facility] Serum Aspergillus fumigatus antibody detection by immunodiffusionOrdered By: Frances Fuchs on 10-05-2022 A. fumigatus Ab Immune diff Ql (S) Negative Neg:<1:1 [facility] Serum Aspergillus niger anti body detection by immunodiffusionOrdered By: Frances Fuchs on 10-05-2022 A. niger Ab Immune diff Ql (S) Negative Neg:<1:1 [facility] Serum Bermuda grass IgE anti body assay (units/volume)Ordered By: Frances Fuchs on 10-05-2022 Bermuda grass IgE Qn (S) <0.10 kU/L Class 0 [facility] Serum Dermatophagoides farin ae specific IgE antibody assay (units/volume)Ordered By: Frances Fuchs on 10-05-2022 Greek house dust mite IgE Qn (S) <0.10 kU/L Class 0 [facility] Serum house dust mi te IgE antibody assay (units/volume)Ordered By: Frances Fuchs on 10-05-2022 house dust mite IgE Qn (S) <0.10 kU/L Class 0 [facility] Serum [place] blue grass Ig E antibody assay (units/volume)Ordered By: Frances Fuchs on 10-05-2022 [place] blue grass IgE Qn (S) <0.10 kU/L Class 0 [facility] Serum cat dander IgE antibod y assay (units/volume)Ordered By: Frances Fuchs on 10-05-2022 Cat dander IgE Qn (S) <0.10 kU/L Class 0 [facility] Serum classic neutrophil cyt oplasmic antibody assay (units/volume)Ordered By: Frances Fuchs on 10-05-2022 Neutrophil cytoplasmic Ab.classic Qn (S) <1:20 titer Neg:<1:20 [facility] Serum dog epithelium IgE ant ibody assay (units/volume)Ordered By: Frances Fuchs on 10-05-2022 Dog epithelium IgE Qn (S) <0.10 kU/L Class 0 [facility] Serum perinuclear neutrophil cytoplasmic antibody titer by immunofluorescenceOrdered By: Frances Fuchs on 10-05-2022 Neutrophil cytoplasmic Ab.perinuclear IF (S) [Titer] <1:20 titer Neg:<1:20 [facility] Comment on above: The presence of posi tive fluorescence exhibiting P-ANCA orC-ANCA patterns alone is not specific for the diagnosis ofWegener's Granulomatosis (WG) or microscopic polyangiitis.Decisions about treatment should not be based solely onANCA IFA results. The International ANCA Group Consensusrecommends follow up testing of positive sera with both DC-3 and MPO-ANCA enzyme immunoassays. As many as 5% serumsamples are positive only by EIA. Ref. AM J Clin Zuehel0498;111:507-513. Serum white elm IgE antibody assay (units/volume)Ordered By: Frances Fuchs on 10-05-2022 [place] IgE Qn (S) <0.10 kU/L Class 0 [facility] Serum white oak IgE antibody assay (units/volume)Ordered By: Frances Fuchs on 10-05-2022 [place] IgE Qn (S) <0.10 kU/L Class 0 [facility] Basophil percentageOrdered B y: Dr. Olsen on 07-12-2022 Chloride [Moles/Vol] 106 mmol/L 98-107 [facility] Glucose [Mass/Vol] 98 mg/dL 74-106 [facility] Potassium [Moles/Vol] 3.4 mmol/L 3.5-5.1 [facility] Sodium [Moles/Vol] 140 mmol/L 136-145 [facility] Laboratory - Chemistry and C hemistry - challengeOrdered By: Dr. Olsen on 07-12-2022 CO2 [Moles/Vol] 27.0 mmol/L 21.0-32.0 [facility] Urea nitrogen/Creatinine [Mass ratio] 10.0 mg/mg 10-20 [facility] No Panel InformationOrdered By: Dr. Olsen on 07-12-2022 Estimated GFR (MDRD) Amer 83 mL/min >60 [facility] Comment on above: GFR Calc Estimated GFR (MDRD) Non-Af Amer 69 mL/min >60 [facility] Comment on above: Non- GFR Calc Serum or plasma calcium sherwin urement (mass/volume)Ordered By: Dr. Olsen on 07-12-2022 Calcium [Mass/Vol] 9.5 mg/dL 8.5-10.1 [facility] Serum or plasma creatinine m easurement (mass/volume)Ordered By: Dr. Olsen on 07-12-2022 Creatinine [Mass/Vol] 1.20 mg/dL 0.70-1.30 [facility] Comment on above: The validity of the calculated GFR & GFRAA in patients over 70 years has not been determined. Clinical correlation is essential. Serum or plasma urea nitroge n measurement (mass/volume)Ordered By: Dr. Olsen on 07-12-2022 Urea nitrogen [Mass/Vol] 12 mg/dL 7-18 [facility] Thin prep Papanicolaou smear with manual screeningOrdered By: Dr. Olsen on 07-12-2022 Thin prep Papanicolaou smear with manual screening 7 5-15 [facility] Absolute lymphocyte countOrd ered By: Dr. Ndiaye on 07-10-2022 Lymphocytes Auto (Unsp spec) [#/Vol] 0.70 10*3/uL 0.83-4.51 [facility] Basophil percentageOrdered B y: Dr. Ndiaye on 07-10-2022 Basophils/100 WBC (Bld) 0.3 % 0-1 [facility] Bilirubin [Mass/Vol] 1.30 mg/dL 0.20-1.00 [facility] Comment on above: For patients on eltr ombopag therapy, use of Dimension [place] TBIL is not recommended. Chloride [Moles/Vol] 102 mmol/L 98-107 [facility] Eosinophils/100 WBC (Bld) 0.7 % 0-5 [facility] Glucose [Mass/Vol] 106 mg/dL 74-106 [facility] Comment on above: Fasting Glucose resu lt from 100 to 125 mg/dL suggests IMPAIRED HOMEOSTASIS per A.D.A. criteria. Neutrophils (Bld) [#/Vol] 7.6 10*3/uL 2.0-7.7 [facility] Neutrophils/100 WBC (Bld) 85.5 % 47-70 [facility] Potassium [Moles/Vol] 3.5 mmol/L 3.5-5.1 [facility] Protein [Mass/Vol] 7.5 g/dL 6.4-8.2 [facility] Sodium [Moles/Vol] 136 mmol/L 136-145 [facility] WBC (Bld) [#/Vol] 8.9 10*3/uL 4.4-11.0 [facility] Blood erythrocytes count (nu mber/volume)Ordered By: Dr. Ndiaye on 07-10-2022 RBC (Bld) [#/Vol] 5.13 10*6/uL 4.6-6.2 [facility] Blood hemoglobin measurement (mass/volume)Ordered By: Dr. Ndiaye on 07-10-2022 Hemoglobin (Bld) [Mass/Vol] 15.8 g/dL 13.0-16.5 [facility] Blood lymphocytes/100 leukoc ytesOrdered By: Dr. Ndiaye on 07-10-2022 Lymphocytes/100 WBC (Bld) 7.9 % 19-41 [facility] Blood monocytes/100 leukocyt esOrdered By: Dr. Ndiaye on 07-10-2022 Monocytes/100 WBC (Bld) 5.1 % 0-10 [facility] Blood platelet mean volumeOr dered By: Dr. Ndiaye on 07-10-2022 Platelet mean volume (Bld) [Entitic vol] 8.2 fL 6.2-12.0 [facility] Determination of erythrocyte mean corpuscular volume (MCV)Ordered By: Dr. Ndiaye on 07-10-2022 MCV (RBC) [Entitic vol] 90.6 fL 80-94 [facility] Direct bilirubinOrdered By: Dr. Ndiaye on 07-10-2022 Bilirubin.direct [Mass/Vol] 0.25 mg/dL 0.00-0.30 [facility] Hematocrit Auto (Bld) [Volum e fraction]Ordered By: Dr. Ndiaye on 07-10-2022 Hematocrit (Bld) [Volume fraction] 46.5 % 40-54 [facility] Laboratory - Chemistry and C hemistry - challengeOrdered By: Dr. Ndiaye on 07-10-2022 ALP [Catalytic activity/Vol] 94 U/L 45-117 [facility] ALT [Catalytic activity/Vol] 32 U/L 16-61 [facility] CO2 [Moles/Vol] 27.0 mmol/L 21.0-32.0 [facility] Globulin (S) [Mass/Vol] 3.8 g/dL 2.2-4.2 [facility] Lipase [Catalytic activity/Vol] 25 U/L 13-75 [facility] Comment on above: Please note:LIPASE r evised reference range effective 22. New Lipase methodology. Expected to produce lower values than the previous assay method. NEW Reference Range: 13 - 75 U/L Urea nitrogen/Creatinine [Mass ratio] 14.0 mg/mg 10-20 [facility] Laboratory - Hematology and Cell countsOrdered By: Dr. Ndiaye on 07-10-2022 Erythrocyte distribution width (RBC) [Entitic vol] 45.4 [facility]L 35[facility]1-[facility] (RBC) [Ratio] 13.7 % 11.6-14.6 [facility] Immature granulocytes/100 WBC (Bld) 0.500 % 0.0-0.9 [facility] Comment on above: IG% - Immature Granu locytes (promyelocytes, myelocytes and metamyelocytes) > 1% indicates that a LEFT SHIFT is Present. MCH (RBC) [Entitic mass] 30.8 pg 27.0-32.0 [facility] Nucleated RBC/100 WBC (Bld) [Ratio] 0 % 0-5 [facility] MCHC Auto (RBC) [Mass/Vol]Or dered By: Dr. Ndiaye on 07-10-2022 MCHC (RBC) [Mass/Vol] 34.0 g/dL 32-36 [facility] No Panel InformationOrdered By: Dr. Ndiaye on 07-10-2022 Estimated Creatinine Clearance Calc 81.95 ml/min [facility] Estimated GFR (MDRD) Amer 82 mL/min >60 [facility] Comment on above: GFR Calc Estimated GFR (MDRD) Non-Af Amer 68 mL/min >60 [facility] Comment on above: Non- GFR Calc Troponin I High Sensitivity 3 pg/mL 3.0-78.0 [facility] Comment on above: Please Note: New Rajni t Units and Gender Specific Reference Ranges. For more information see Policy Stat Procedure [place] High Sensitivity Troponin (TNIH) and attachments. Platelets bldOrdered By: Dr. Ndiaye on 07-10-2022 Platelets (Bld) [#/Vol] 251 10*3/uL 150-450 [facility] Serum or plasma albumin sherwin urement (mass/volume)Ordered By: Dr. Ndiaye on 07-10-2022 Albumin [Mass/Vol] 3.7 g/dL 3.2-5.0 [facility] Serum or plasma calcium sherwin urement (mass/volume)Ordered By: Dr. Ndiaye on 07-10-2022 Calcium [Mass/Vol] 8.8 mg/dL 8.5-10.1 [facility] Serum or plasma creatinine m easurement (mass/volume)Ordered By: Dr. Ndiaye on 07-10-2022 Creatinine [Mass/Vol] 1.21 mg/dL 0.70-1.30 [facility] Comment on above: The validity of the calculated GFR & GFRAA in patients over 70 years has not been determined. Clinical correlation is essential. Serum or plasma urea nitroge n measurement (mass/volume)Ordered By: Dr. Ndiaye on 07-10-2022 Urea nitrogen [Mass/Vol] 17 mg/dL 7-18 [facility] Thin prep Papanicolaou smear with manual screeningOrdered By: Dr. Ndiaye on 07-10-2022 Thin prep Papanicolaou smear with manual screening 19 U/L 15-37 [facility] Thin prep Papanicolaou smear with manual screening 7 5-15 [facility] Basophil percentageOrdered B y: Dr. Boyd on 06-16-2022 Creatinine [Mass/Vol] 1.0 mg/dL 0.70-1.30 [facility] No Panel InformationOrdered By: Dr. Boyd on 06-16-2022 Bedside Estimated GFR (eGFR) > 60.0000 mL/min >60 [facility] .Auto Diffon 02-01-2022 Basophil, Absolute 0.1 10 3/mcL Normal 0.0-0.3 [facility] ([place]) Comment on above: Performed By: #### P RO, GFR, BMP #### [address] [address] Basophils/100 WBC (Bld) 0.5 % Normal 0.0-2.5 [facility] ([place]) Comment on above: Performed By: #### P RO, GFR, BMP #### [address] [address] Eosinophil, Absolute 0.3 10 3/mcL Normal 0.0-0.7 [facility] ([place]) Comment on above: Performed By: #### P RO, GFR, BMP #### [address] [address] Eosinophils/100 WBC (Bld) 2.9 % Normal 0.0-6.0 [facility] ([place]) Comment on above: Performed By: #### P RO, GFR, BMP #### [address] [address] Lymphocyte, Absolute 1.9 10 3/mcL Normal 0.9-4.3 [facility] ([place]) Comment on above: Performed By: #### P RO, GFR, BMP #### [address] [address] Lymphocytes/100 WBC (Bld) 18.5 % Low 20.0-40.0 [facility] ([place] Comment on above: Performed By: #### P RO, GFR, BMP #### [address] [address] Monocyte, Absolute 0.8 10 3/mcL Normal 0.1-1.4 [facility] ([place]) Comment on above: Performed By: #### P RO, GFR, BMP #### [address] [address] Monocytes/100 WBC (Bld) 8.0 % Normal 2.0-13.0 [facility] ([place]) Comment on above: Performed By: #### P RO, GFR, BMP #### [address] [address] Neutrophils/100 WBC (Bld) 70.1 % Normal 50.0-75.0 [facility] ([place] Comment on above: Performed By: #### P RO, GFR, BMP #### [address] [address] .GFRon 02-01-2022 GFR Non- >60 Normal [facility] ([place] Comment on above: Result Comment: GFR Population [...] By: #### P RO, GFR, BMP #### [address] [address] GFR >60 Normal [facility] ([place]) Comment on above: Result Comment: GFR Population [...] By: #### P RO, GFR, BMP #### [address] [address] .NEUABSon 02-01-2022 Neutrophil, Absolute 7.1 10 3/mcL Normal 2.3-8.1 [facility] ([place] Comment on above: Performed By: #### P RO, GFR, BMP #### [address] [address] BMPon 02-01-2022 BUN/Creatinine Ratio 8.7 ratio Low 10.0-22.0 [facility] ([place] Comment on above: Performed By: #### P RO, GFR, BMP #### [address] [address] Calcium [Mass/Vol] 10.0 mg/dL Normal 8.7-10.4 [facility] Comment on above: Performed By: #### P RO, GFR, BMP #### [address] [address] Chloride [Moles/Vol] 107 mmol/L Normal 98-110 [facility] ([place] Comment on above: Performed By: #### P RO, GFR, BMP #### [address] [address] CO2 [Moles/Vol] 29 mmol/L Normal 22-32 [facility] ([place] Comment on above: Performed By: #### P RO, GFR, BMP #### [address] [address] Creatinine [Mass/Vol] 1.04 mg/dL Normal 0.60-1.40 [facility] Comment on above: Performed By: #### P RO, GFR, BMP #### [address] [address] Electrolyte Balance 1.0 mEq/L Low 4.0-15.0 [facility] ([place]) Comment on above: Performed By: #### P RO, GFR, BMP #### [address] [address] Glucose [Mass/Vol] 109 mg/dL Normal 70-110 [facility] [place] Comment on above: Performed By: #### P RO, GFR, BMP #### [address] [address] Potassium [Moles/Vol] 4.3 mmol/L Normal 3.5-5.0 [facility] Comment on above: Performed By: #### P RO, GFR, BMP #### [address] [address] Sodium [Moles/Vol] 137 mmol/L Normal 136-145 [facility] [place] Comment on above: Performed By: #### P RO, GFR, BMP #### [address] [address] Urea nitrogen [Mass/Vol] 9.0 mg/dL Normal 8.0-22.0 [facility] ([place] Comment on above: Performed By: #### P RO, GFR, BMP #### [address] [address] CBCon 02-01-2022 Erythrocyte distribution width (RBC) [Ratio] 13.7 % Normal 11.5-15.5 [facility] ([place] Comment on above: Performed By: #### P RO, GFR, BMP #### [address] [address] Hematocrit (Bld) [Volume fraction] 41.4 % Normal 40.0-52.0 [facility] ([place] Comment on above: Performed By: #### P RO, GFR, BMP #### [place] [address] Hgb 14.4 G/dL Normal 13.0-17.5 [facility] ([place] Comment on above: Performed By: #### P RO, GFR, BMP #### [place] [address] MCH (RBC) [Entitic mass] 31.4 pg Normal 27.0-33.0 [facility] ([place] Comment on above: Performed By: #### P RO, GFR, BMP #### [place] [address] MCHC 34.7 G/dL Normal 32.0-36.0 [facility] ([place] Comment on above: Performed By: #### P RO, GFR, BMP #### [place] [address] MCV (RBC) [Entitic vol] 90.6 fL Normal 81.0-100.0 [facility] ([place]) Comment on above: Performed By: #### P RO, GFR, BMP #### [place] [address] Platelet 295 10 3/mcL Normal 150-450 [facility] ([place] Comment on above: Performed By: #### P RO, GFR, BMP #### [place] [address] Platelet mean volume (Bld) [Entitic vol] 6.5 fL Normal 6.4-10.5 [facility] ([place] Comment on above: Performed By: #### P RO, GFR, BMP #### [place] [address] RBC 4.57 10 6/mcL Normal 4.50-6.00 [facility] ([place] Comment on above: Performed By: #### P RO, GFR, BMP #### [place] [address] WBC 10.2 10 3/mcL Normal 4.5-10.8 [facility] ([place]) Comment on above: Performed By: #### P RO, GFR, BMP #### [facility] [address] [place] [address] Histoplasma Galactomannan AG on 02-01-2022 Histoplasma galacto source Bronchial wash Normal () [facility] Comment on above: Performed By: #### H ISTO GAL #### [facility] [address] [place], [place] [id number] Histoplasma galactomannan AG 0.80 ng/mL Abnormal () [facility] Comment on above: Result Comment: Refe rence Interval: None Detected Reportable Range: Positive Results reported in ng/mL from 0.20 ng/mL to 20.00 ng/mL Positive results above 20.00 ng/mL are reported as Above the Limit of Quantification This test was developed and its performance characteristics determined by [facility]. It has not been cleared or approved by the FDA; however, FDA clearance or approval is not currently required for clinical use. The results are not intended to be used as the sole means for clinical diagnosis or patient management decisions. This document contains confidential privileged information. The recipient of the information is prohibited from disclosing the contents to another constitution party without authorization. If you are not the intended recipient, you are hereby notified that the disclosure of the contents is strictly prohibited. Please notify [facility] immediately if you received this information in error. Trust Operations Assistant: Mandie Silverman [place], [place]([facility]) [address] [place] [address] Cross-reactions occur with Blastomyces spp., Coccidioides spp., and Paracoccidioides brasiliensis. ALQ = Above the limit of Quantification Performed At: [facility] [address] [place] [address] [employer] Drafter: Mandie MCCLENDON Number: [id number] Performed By: #### H ISTO GAL #### [facility] [address] [place], [place] [address] LABORATORYOrdered By: SYSTEM SYSTEM on 02-01-2022 Basophils (Bld) [#/Vol] 0.1 103/mcL Invalid Interpretation Code 0.0 - 0.3 10^3/mcL Workflow SS Basophils/100 WBC (Bld) 0.5 % Invalid Interpretation Code 0.0 - 2.5 % AH Workflow SS Calcium [Mass/Vol] 10.0 mg/dL Invalid [...] Invalid Interpretation Code 27.0 - 33.0 pg AH Workflow SS MCHC 34.7 G/dL Invalid Interpretation [...] Invalid Interpretation Code 3.5 - 5.0 mEq/L AH ADM SS RBC (Bld) [#/Vol] 4.57 106/mcL [...] Coag (PPP) [Relative time] 1.0 {INR} Normal [facility] ([place]) Comment on above: Result Comment: The [employer] (CHEST, 1992, 102:312S-[id number]) recommended therapeutic range for oral anticoagulant therapy is: LOW RISK: Prophylaxis of venous thrombosis INR: 2.0-3.0 Treatment of pulmonary embolism 2.0-3.0 Prevention of systemic embolism 2.0-3.0 HIGH RISK: Mechanical prosthetic valves 2.5-3.5 Performed By: #### P RO, GFR, BMP #### [facility] [address] [place] [id number] PT Coag (PPP) [Time] 11.7 s Normal 9.0-14.9 [facility] ([place]) Comment on above: Result Comment: Effe ctive 09/03/07, Protime results may be affected by some antibiotics (i.e. Ciprofloxacin, Azithromycin, Bactrim) which may potentiate the action of oral anticoagulants, with further increases in Protime/INR. Performed By: #### P RO, GFR, BMP #### [facility] [address] [place] [address] AFB DIRECT SMEARon 2 AFB DIRECT SMEAR - -------- RUN DATE: 01/27/22 Laboratory LIVE PAGE 1 RUN TIME: 1347 Specimen Inquiry RUN USER: INTERFACE -------- [facility] Department of Laboratories [address] [place] [address] PATIENT: DONTAE PARRA LOC: ENOC U #: [id number] HOME PHONE: AGE/SX: 46/M ROOM: RE01/26/[address]: Monroe LoveO.B.: [birth year] BED: DIS: STATUS: REG REF LAB O/S: -------- Specimen: [id number] Collected: 01/26/22-UNK Status: COMP Req#: [id number] Received: 01/27/22 Source: BRONCH Sp Desc: BRONCHIAL Subm Dr: Monroe Love Ordered: AFB DIRECT SMR -------- Procedure Result Verified -------- > AFB DIRECT SMEAR Final 01/27/22 FLUORESCENT ACID FAST STAIN: NO AFB SEEN ON UNCONCENTRATED SMEAR VIA FLUORESCENT METHOD -------- END OF REPORT Normal [facility] Comment on above: Performed By: #### S ESTHER #### [facility] [address] [address] FUNGUS SMEAR (PAOLO)on FUNGUS SMEAR (PAOLO) - -------- RUN DATE: 01/27/22 Laboratory LIVE PAGE 1 RUN TIME: 1334 Specimen Inquiry RUN USER: INTERFACE -------- [facility] Department of Laboratories [address] [place] [address] PATIENT: DONTAE PARRA LOC: ENOC U #: [id number] HOME PHONE: AGE/SX: 46/M ROOM: RE01/26/[address]: Monroe Love D.O.B.: 73 BED: DIS: STATUS: REG REF LAB O/S: -------- Specimen: [id number] Collected: 01/26/22- Status: JOSE LUIS Relynette#: [id number] Received: 01/27/22-1200 Source: BRONCH Sp Desc: BRONCHIAL Subm Dr: Monroe Love Ordered: MONE SMR (PAOLO) -------- Procedure Result Verified -------- > FUNGUS SMEAR (PAOLO) Final 01/27/22 NO FUNGAL ELEMENTS FOUND ON DIRECT PAOLO PREP -------- END OF REPORT Normal [facility] Comment on above: Performed By: #### S JOSUE #### [facility] [address] [address] Fungal Cultureon 01-26-2022 Fungal Culture - -------- RUN DATE: 03/26/22 Laboratory LIVE PAGE 1 RUN TIME: 100 Specimen Inquiry RUN USER: INTERFACE -------- [facility] Department of Laboratories [address] [place] [address] PATIENT: DONTAE PARRA LOC: ENOC U #: [id number] HOME PHONE: AGE/SX: 46/M ROOM: RE01/26/22 [facility] DR: Monroe Love : 73 BED: DIS: STATUS: REG REF LAB O/S: -------- Specimen: [id number] Collected: 01/26/22-UNK Status: COMP Req#: [id number] Received: 01/27/22 Source: BRONCH Sp Desc: BRONCHIAL Subm Dr: Monroe Love Ordered: AFB Cult/Stain, Fungal Culture -------- Procedure Result Verified -------- > AFB Stain Final 03/26/22 SEE NOTE Negative for Acid Fast Bacteria. > Acid-Fast Bacillus Cult Final 03/26/22 SEE NOTE Culture negative for acid fast bacilli Performed By: [facility] [address] [place] [address] Trust Operations Assistant: Cuong Wray MD, PHD > Fungal Culture Final 02/27/22 SEE NOTE Culture POSITIVE for Yeast not Cryptococcus species No further workup Performed By: [facility] [address] [place] [address] Trust Operations Assistant: Cuong Wray MD, PHD -------- END OF REPORT Normal [facility] Comment on above: Performed By: #### C SUJATHA #### [facility] [address] [address] GRAM STAINon 01-26-2022 Microscopic observation Gram stain Nom (Unsp spec) -------- RUN DATE: 01/29/22 Laboratory LIVE PAGE 1 RUN TIME: 942 Specimen Inquiry RUN USER: INTERFACE -------- [facility] Department of Laboratories [address] [place] [address] PATIENT: DONTAE PARRA LOC: ENOC U #: [id number] HOME PHONE: AGE/SX: 46/M ROOM: RE01/26/[address]: Monroe Love : 73 BED: DIS: STATUS: REG REF LAB O/S: -------- Specimen: [id number] Collected: 01/26/22- Status: COMP Req#: [id number] Received: 01/27/22 Source: BRONCH Sp Desc: BRONCHIAL Subm Dr: Monroe Love Ordered: GRAM STAIN, RESPIRATORY CUL -------- Procedure Result Verified -------- > GRAM STAIN Final 01/27/22-1409 FEW SEGMENTED WBC'S MODERATE GRAM POSITIVE COCCI > RESPIRATORY CULTURE Final 01/29/22-942 MODERATE GROWTH OF NORMAL MCKINLEY -------- END OF REPORT Normal [facility] Comment on above: Performed By: #### S MAXINE DICKEY #### [facility] [place] [id number] NONGYN CYTOLOGYon 01-26-2022 NONGYN CYTOLOGY - -------- RUN DATE: 01/30/22 Laboratory LIVE PAGE 1 RUN TIME: 8553 Specimen Inquiry RUN USER: INTERFACE -------- [facility] Department of Laboratories [address] [place] [address] PATIENT: DONTAE PARRA LOC: ENOC Sol #: [id number] HOME PHONE: AGE/SX: 46/M ROOM: RE01/26/22 [facility] DR: Monroe Love : 73 BED: [...] -------- SPEC #: [id number] PATIENT: DONTAE PARRA #[id number] (Continued) -------- Specimen : [id number] Date Collected: [...] evaluation. -------- END OF REPORT Normal [facility] Comment on above: Performed By: #### N G #### [facility] [place] [id number] Radha 09-01-2021 DAVID Telephone (PULKAMILA) DONTAE PARRA ([id number]) 1975 M Date Time Provider Department 09/01/21 YONY FRIAS During your visit today, we recorded the following information about you: Sabra Chapman MA 09/01/2021 9:49 AM Signed Patient scheduled for Bronch on 09/06/2021 at 7:30 am. He has his Covid test on 09/03/2021 at 8:20 am at [facility] lab. Faxed orders. Left message for patient to call back. Can I get this Covid order signed? Thanks. NADIA Linn MA 09/01/2021 9:59 AM Signed Patient states that he will be out of town for the Covid test. He will be in [place]. Is there anything else he can do [...] was no answer. Left a message on [employer]almic [employer] requesting a return call. 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 If this patient has any further questions they can email us at or call us at [phone]. eal Cardiology Technologist/Smoking Cessation Navigator: [facility] Allergies As of Date: 09/01/2021 (No Known [...] exertion [R06.02] 08/31/2021 Coronary artery disease involving chickahominy indian tribe ndiaye*08/31/2021 History of 2019 novel coronavirus disease (COVI*08/31/2021 Encounter Status:Closed by SHANEL RAMIREZ on 09/01/[address] [facility] CNOVon 08-31-2021 CNOV Office Visit (PULMUP ) DONTAE PARRA ([id number]) 1975 M Date Time Provider Department 08/31/21 12:00 PM YONY FRIAS PULMUP During your visit today, we recorded the following information about you: Pulse Blood pressure Weight Height 84/minute 118/79 100.7 kg 1.829 m Yony Frias DO 08/31/2021 12:51 PM Signed [facility] Department of Pulmonary AND Sleep [...] pain - COPD (chronic obstructive pulmonary disease) ([facility]) - Coronary arteriosclerosis NON -CRITICAL DISEASE - Depression - Dyspnea - Erectile dysfunction c/o - GERD (gastroesophageal reflux disease) - Heart attack ([facility]) - Hyperlipidemia - Neuropathy - Pneumonia, viral - Restless legs - Stroke (cerebrum) ([facility]) PAST SURGICAL HISTORY Procedure Laterality Date - [...] Positive for (more content not included)... Normal [facility] CBC w/Auto Differentialon Basophils Abs. # 0.02 K/uL Normal 0.00-0.10 [facility] Comment on above: Performed By: #### C BCS #### [facility] [address] [place] [address] Basophils/100 WBC (Bld) 0.2 % Normal 0.2-1.0 C [facility] Comment on above: Performed By: #### C BCS #### [facility] [place] [address] [facility] [place] [address] Eosinophils (Bld) [#/Vol] 0.10 10*3/uL Normal 0.00-0.2 0 [facility] Comment on above: Performed By: #### C BCS #### [facility] [address] [place] [address] Eosinophils/100 WBC (Bld) 1.3 % Normal 0.9-2.9 [facility] Comment on above: Performed By: #### C BCS #### [facility] [address] [place] [address] Erythrocyte distribution width (RBC) [Ratio] 13.5 % Normal 11.5-14.5 [facility] Comment on above: Performed By: #### C BCS #### [facility] [address] [place] [address] Hematocrit (Bld) [Volume fraction] 44.2 % Normal 36.7-50.6 [facility] Comment on above: Performed By: #### C BCS #### [facility] [address] [place] [address] Hemoglobin (Bld) [Mass/Vol] 14.9 g/dL Normal 12.4-17.3 [facility] Comment on above: Performed By: #### C BCS #### [facility] [address] [place] [address] Imm Grans % 0.40 % Normal 0.00-1.00 [facility] Comment on above: Performed By: #### C BCS #### [facility] [address] [place] [address] Imm Grans Absolute # 0.04 K/uL Normal 0.00-0.10 [facility] Comment on above: Performed By: #### C BCS #### [facility] [address] [place] [address] Lymphocytes (Bld) [#/Vol] 2.30 10*3/uL Normal 1.30-2.9 0 [facility] Comment on above: Performed By: #### C BCS #### [facility] [address] [place] [address] Lymphocytes/100 WBC (Bld) 23.9 % Normal 17.0-45.5 [facility] Comment on above: Performed By: #### C BCS #### [facility] [address] [place] [address] MCH (RBC) [Entitic mass] 30.7 pg Normal 27.0-31.0 [facility] Comment on above: Performed By: #### C BCS #### [facility] [address] [place] [address] MCHC (RBC) [Mass/Vol] 33.7 g/dL Normal 33.0-37.0 [facility] Comment on above: Performed By: #### C BCS #### [facility] [address] [place] [address] MCV (RBC) [Entitic vol] 90.9 fL Normal 80.0-94.0 [facility] Comment on above: Performed By: #### C BCS #### [facility] [address] [place] [address] Monocytes (Bld) [#/Vol] 0.50 10*3/uL Normal 0.30-0.80 [facility] Comment on above: Performed By: #### C BCS #### [facility] [address] [place] [address] Monocytes/100 WBC (Bld) 5.3 % Low 5.5-11.7 C [facility] Comment on above: Performed By: #### C BCS #### [facility] [place] [address] [facility] [place] [address] Neutrophils Abs. # 6.48 K/uL High 2.20-4.80 [facility] Comment on above: Performed By: #### C BCS #### [facility] [place] [address] [facility] [place] [address] Neutrophils/100 WBC (Bld) 68.9 % High 43.0-65.0 [facility] Comment on above: Performed By: #### C BCS #### [facility] [place] [address] [facility] [place] [address] Platelet mean volume (Bld) [Entitic vol] 8.3 fL Normal 7.4-10.4 [facility] Comment on above: Performed By: #### C BCS #### [facility] [place] [address] [facility] [place] [address] Platelets (Bld) [#/Vol] 204 10*3/uL Normal 148-402 [facility] Comment on above: Performed By: #### C BCS #### [facility] [place] [address] [facility] [place] [address] RBC (Bld) [#/Vol] 4.86 10*6/uL Normal 4.13-5.69 [facility] Comment on above: Performed By: #### C BCS #### [facility] [place] [address] [facility] [place] [address] WBC (Bld) [#/Vol] 9.4 10*3/uL Normal 3.6-10.8 [facility] Comment on above: Performed By: #### C BCS #### [facility]ri[facility] [address] [address] CHEST APon 03-03-2021 CHEST AP EXAMINATION: ONE XRAY VIEW OF THE CHEST 03/03/2021 11:53 am COMPARISON: February 22, 2021 HISTORY: ORDERING SYSTEM PROVIDED HISTORY: covid/dyspnea FINDINGS: Bibasilar atelectasis or infiltrates slightly greater on the right. No pneumothorax or significant pleural effusion. Cardiac and mediastinal silhouettes unremarkable. No acute osseous abnormality. Telemetry leads overlie the chest. IMPRESSION: Bibasilar atelectasis or infiltrates. Normal [facility] CTA CHEST Won 03-03-2021 CTA CHEST W [...] Bibasilar atelectasis or infiltrates. RECOMMENDATIONS: Unavailable Normal [facility] Comprehensive Metabolic Pane shilo 03-03-2021 Albumin [Mass/Vol] 3.5 g/dL Normal 3.4-5.0 [facility] Comment on above: Performed By: #### C MP #### [address] [address] Albumin/Globulin [Mass ratio] 1.1 {ratio} Normal 1.1-2.5 [facility] Comment on above: Result Comment: CO RRECTED REPORT: Previous result was 1.0 at 12:02 on 03/03/21 Performed By: #### C MP #### [facility] [place] [address] [facility] [place] [address] ALP [Catalytic activity/Vol] 93 U/L Normal 54-112 [facility] Comment on above: Performed By: #### C MP #### [facility] [place] [address] [facility] [place] [address] ALT [Catalytic activity/Vol] 48 U/L Normal 13-66 [facility] Comment on above: Performed By: #### C MP #### [facility] [place] [address] [facility] [place] [address] Anion gap [Moles/Vol] 11.8 mmol/L Normal 8.0-16.0 [facility] Comment on above: Performed By: #### C MP #### [facility] [place] [address] [facility] [place] [address] AST [Catalytic activity/Vol] 21 U/L Normal 3-39 [facility] Comment on above: Performed By: #### C MP #### [facility] [place] [address] [facility] [place] [address] Bilirubin [Mass/Vol] 0.92 mg/dL Normal 0.00-0.99 [facility] Comment on above: Performed By: #### C MP #### [facility] [place] [address] [facility] [address] Calcium [Mass/Vol] 8.3 mg/dL Normal 8.2-10.0 [facility] Comment on above: Performed By: #### C MP #### [facility] [place] [address] [facility] [place] [address] Chloride [Moles/Vol] 106 mmol/L Normal 94-110 [facility] Comment on above: Performed By: #### C MP #### [facility] [address] [place] [address] CO2 [Moles/Vol] 26 mmol/L Normal 21-34 [facility] Comment on above: Performed By: #### C MP #### [facility] [address] [place] [address] Creatinine [Mass/Vol] 0.93 mg/dL Normal 0.50-1.17 [facility] Comment on above: Performed By: #### C MP #### [facility] [address] [place] [address] EGFR Other Races >60 Normal >60 [facility] Comment on above: Performed By: #### C MP #### [facility] [address] [place] [address] GFR/1.73 sq M.predicted among blacks MDRD (S/P/Bld) [Vol rate/Area] mL/min/{1.73_m2} Normal >60 [facility] Comment on above: Result Comment: Metal Gauge Maker ceci Kidney Disease less than 60 mL/min/1.73 m2 Kidney Failure less than 15 mL/min/1.73 m2 Average estimated GFR by age: 40-49 years 99 mL/min/1.73 m2 Performed By: #### C MP #### [facility] [address] [place] [address] Globulin (S) [Mass/Vol] 3.3 g/dL Normal 1.5-4.5 [facility] Comment on above: Performed By: #### C MP #### [facility] [address] [place] [address] Glucose [Mass/Vol] 124 mg/dL High 65-100 [facility] Comment on above: Performed By: #### C MP #### [facility] [address] [place] [address] Potassium [Moles/Vol] 3.8 mmol/L Normal 3.3-5.1 [facility] Comment on above: Performed By: #### C MP #### [facility] [address] [place] [address] Protein [Mass/Vol] 6.8 g/dL Normal 6.1-8.2 [facility] Comment on above: Performed By: #### C MP #### [facility] [address] [place] [address] Sodium [Moles/Vol] 140 mmol/L Normal 132-145 [facility] Comment on above: Performed By: #### C MP #### [facility] [address] [place] [address] Urea nitrogen [Mass/Vol] 13.4 mg/dL Normal 3.2-26.9 [facility] Comment on above: Performed By: #### C MP #### [facility] [address] [place] [address] Urea nitrogen/Creatinine [Mass ratio] 14 mg/mg Normal 6-20 [facility] Comment on above: Performed By: #### C MP #### [facility] [address] [place] [address] D-Dimeron 03-03-2021 D-Dimer 0.28 mg/L FEU Normal 0.00-0.49 [facility] Comment on above: Result Comment: Nega tive [...] -Liver cirrhosis - Performed By: #### D [facility] #### [facility] [address] [address] EMERGENCY DEPARTMENTon 03-03 EMERGENCY DEPARTMENT [address] [address] HEALTH INFORMATION MANAGEMENT EMERGENCY DEPARTMENT : [phone] Signed Patient: DONTAE PARRA Acct:[id number] MRUN: Lolly [id number] : 1975 Sex: M Loc: ED ADM [...] Feels Threatened In a Relationship: No - [place]/Gender ID What is your current Gender Identity? Choose all that Apply: Male - [place]-Suicide Severity Rating Scale 1) Wish to be [...] - Head (more content not included)... Normal [facility] High Sensitivity TNIon 03-03 Abs Change hsTnI 1 ng/L Normal [facility] Comment on above: Performed By: #### H STNI #### [facility] [address] [place] [address] Delta % hsTnI 8 % Normal [facility] Comment on above: Performed By: #### H STNI #### [facility] [address] [place] [address] High Sensitivity TNI 13 ng/L Normal 0-76 [facility] Comment on above: Result Comment: Inte rpretation comment: High-sensitivity troponin I (hsTnI) assay can reliably detect low troponin concentrations relative to conventional troponin assays. It is the preferred marker of myocardial necrosis as recommended by the Fourth [place] Definition of Myocardial Infarction Guidelines. The diagnosis [...] significant. Performed By: #### H STNI #### [facility] [address] [place] [address] High Sensitivity TNI 12 ng/L Normal 0-76 [facility] Comment on above: Result Comment: Inte rpretation comment: High-sensitivity troponin I (hsTnI) assay can reliably detect low troponin concentrations relative to conventional troponin assays. It is the preferred marker of myocardial necrosis as recommended by the Fourth [place] Definition of Myocardial Infarction Guidelines. The diagnosis [...] considered significant. Performed By: #### H STNI ####[facility] [place], [place] [id number] NT Pro-BNPon 03-03-2021 Natriuretic peptide B (Bld) [Mass/Vol] 45 pg/mL Normal 0-125 [facility] Comment on above: Result Comment: NOTE -Dietary supplements containing high biotin levels may cause significant interference with affected lab tests, including cardiovascular diagnostic tests and hormone tests that use biotin technology. Incorrect test results may be generated if there is biotin in the patients specimen. Performed By: #### P BNPG #### [facility] [address] [place], [place] [address] PTTon 03-03-2021 aPTT Coag (Bld) [Time] 24.7 s Normal 19.5-32.1 [facility] Comment on above: Result Comment: New Reference Ranges effective 2017. Performed By: #### P TT #### [facility] [address] [place] [address] Prothrombin Timeon 2 INR Coag (PPP) [Relative time] 0.93 {INR} Normal [facility] Comment on above: Result Comment: 2.0 - 3.0 Group A 2.5 - 3.5 Group B Group A indications: Prophylaxis and treatment of venous thrombosis. Treatment of pulmonary embolism. Prevention of systemic embolism. Tissue heart valves. Acute myocardial infarction. Valvular heart disease. Atrial fibrillation. Group B indications: Mechanical prosthetic valves. . Performed By: #### P T ####[facility] [place] [address] PT Coag (PPP) [Time] 9.0 s Normal 8.9-12.2 [facility] Comment on above: Result Comment: New Reference Ranges effective 2017. Performed By: #### P T ####[facility] [place] [address] 2018 Novel Coronavirus (CoVI D-19), NAAon 02-23-2021 SARS-CoV-2 (COVID-19) RNA [place]+probe Ql (Unsp spec) Detected Abnormal Not Detected [facility] Comment on above: Result Comment: Stefanie ents who have a positive COVID-19 test result may now have treatment options. Treatment options are available for patients with mild to moderate symptoms and for hospitalized patients. Visit our website at [email or web address] for resources and information. This nucleic acid amplification test was developed and its performance characteristics determined by [employer]. Nucleic acid amplification tests include RT-PCR and [...] detected) result in this assay. Performed at: [facility] [id number] Judge: Trent Live PhD, Phone: [phone] Performed By: #### L COV #### [facility] [address] [address] CHEST APon 02-22-2021 CHEST AP EXAMINATION: ONE XRAY VIEW OF THE CHEST 02/22/2021 11:50 am COMPARISON: None. HISTORY: ORDERING SYSTEM PROVIDED HISTORY: cough FINDINGS: Cardiomediastinal silhouette: No cardiomegaly or obvious acute process is identified. Lungs/pleura: No acute pulmonary infiltrate, pleural effusion, or pneumothorax is identified. Other: No additional acute abnormality. IMPRESSION: No acute cardiopulmonary process is identified by PA chest x-ray. 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 Choose all that Apply: Male - [place]-Suicide Severity Rating Scale 1) Wish to be [...] - Nec (more content not included)... Normal [facility] SARS Antigen (Rapid)on 02-22 SARS Antigen Negative Normal Negative [facility] Comment on above: Result Comment: The Gala 2 SARS Antigen [place] is a lateral flow immunofluorescent sandwich assay that is used with the Gala 2 instrument intended for the qualitative detection of the nucleocapsid protein antigen from SARS-CoV-2 in nasopharyngeal (BIOLOGICAL TECHNICAL OFFICER) and nasal (NS) swab specimens directly or [...] consistent with COVID-19. Performed By: #### C OVAG #### [address] [address] Echo Stress Echo w/wo Jovanny pastor 12-20-2016 Echo Stress Echo w/wo Contrast Patient Name: DONTAE PARRA Ultrasound Exam Date/Time 12/20/2016 14:13:30 EDT Exam Echo Stress Echo w/wo Contrast Ordering Physician VAUGHN VILLEGAS CAYLA Accession Number [id number] Reason For Exam angina Report STRESS ECHOCARDIOGRAM Rito Protocol PATIENT: Dontae Parra STUDY DATE: 12/20/2016 : 1975 AGE: 41 HT/WT: 182.9 cm (72 98.9 kg in) (217.5 lb) GENDER: M BP: LOCATION: [facility] and PATIENT Outpatient [place] STATUS: *ORDERING PHYSICIAN: * Merly Villegas *SUPERVISING PHYSICIAN: * Jimbo *RN: * Mike Howard RN Olinger, Redle, MD Debra *READING PHYSICIAN: * Jimbo Butler MD *TRAPPER ANIMAL: * Rosalva Mack --- INDICATIONS: Angina decubitus [...] peak heart rate and blood pressure was 33891 mm Hg/min. 3 out of 10 stress-induced [...] 12/20/2016 4:36 pm Signed by: JIMBO BUTLER [facility] CR Chest Portableon 11-21-19 CR Chest Portable Patient Name: DONTAE PARRA Diagnostic Radiology Exam Date/Time 11/20/2016 21:47:24 EDT Exam CR Chest Portable Ordering Physician BERTO CALERO SCOTT Accession Number [id number] CPT4 Codes 75714 () Reason For Exam chest pain Report [...] Transcribed Date and Time: 11/20/2016 9:54 Normal [facility] CTA Chest/Abdomen/Pelvis w/ + w/o contraon 11-20-2016 CTA Chest/Abdomen/Pelvis w/ + w/o contra Patient Name: DONTAE PARRA CT Exam Date/Time 11/20/2016 20:56:40 EDT Exam CTA Chest/Abdomen/Pelvis w/ + w/o contra Ordering Physician MD JANET, JEFFERSON Accession Number [id number] CPT4 Codes Q9967 (), 84002 (), 42707 () Reason For Exam chest/abdominal pain. concern [...] and pulmonary arteries were concurrently generated by ks on the [employer] workstation to better visualize gross vascular anatomy. [...] aorta were generated by me on the [employer] workstation. There is no evidence for abdominal [...] arteries were generated by me on the [employer] workstation. There is no evidence for common, [...] Transcribed Date and Time: 11/20/2016 9:54 Normal [facility] Comp Metabolic Panelon 11-20 Anion gap 10 mmol/L Normal [facility] Comment on above: Performed By: #### H EMOG, CMP3, TROPN ####[place] [address] Alkaline phosphatase (ALP) 92 U/L Normal 45-117 [facility] Comment on above: Performed By: #### H EMOG, CMP3, TROPN ####[address] [address] Protein 7.0 g/dL Normal 6.4-8.2 [facility] Comment on above: Performed By: #### H EMOG, CMP3, TROPN ####[address] [address] Bilirubin (total) 0.6 mg/dL Normal 0.2-1.0 [facility] Comment on above: Performed By: #### H EMOG, CMP3, TROPN ####[address] [address] Alanine aminotransferase (ALT) 22 U/L Normal 12-78 [facility] Comment on above: Performed By: #### H EMOG, CMP3, TROPN ####[address] [address] Aspartate aminotransferase (AST) 13 U/L Low 15-37 [facility] Comment on above: Result Comment: Slig htly hemolysed, interpret with caution. Performed By: #### H EMOAnne Marie, CMP3, TROPN ####[address] [address] Creatinine 1.09 mg/dL Normal 0.55-1.40 [facility] Comment on above: Performed By: #### H EMOAnne Marie, CMP3, TROPN ####[address] [address] eGFR (black) mL/min/{1.73_m2} Normal >60 [facility] Comment on above: Performed By: #### H EMOG, CMP3, TROPN ####[address] [address] eGFR (non-black) mL/min/{1.73_m2} Normal >60 [facility] Comment on above: Result Comment: Sour ce- MDRD equation with creatinine calibration to IDMS(NKDEP)eGFR not recommended for drug dose adjustment Performed By: #### H EMOG, CMP3, TROPN ####[address] [address] [place] [address] Albumin 3.7 g/dL Normal 3.4-5.0 [facility] Comment on above: Performed By: #### H CATHY GRACE3, TROPN ####[address] [address] [place] [address] Chloride 106 mmol/L Normal 98-109 [facility] Comment on above: Performed By: #### H LESLY CMP3, TROPN ####[address] [address] [place] [address] Glucose mass conc 160 mg/dL High 70-100 [facility] Comment on above: Performed By: #### H CATHY GRACE3, TROPN ####[address] [address] [place] [address] Potassium molar conc 3.5 mmol/L Normal 3.5-5.1 [facility] Comment on above: Result Comment: Slig htly hemolysed, interpret with caution. Performed By: #### H LESLY CMP3, TROPN ####[address] [address] [place] [address] Sodium 142 mmol/L Normal 135-145 [facility] Comment on above: Performed By: #### H LESLY CMP3, TROPN ####[address] [address] [place] [address] Urea nitrogen 14 mg/dL Normal 7-25 [facility] Comment on above: Performed By: #### H LESLY CMP3, TROPN ####[address] [address] [place] [address] Calcium 9.0 mg/dL Normal 8.2-10.1 [facility] Comment on above: Performed By: #### H LESLY CMP3, TROPN ####[address] [address] [place] [address] CO2 26 mmol/L Normal 21-32 [facility] Comment on above: Performed By: #### H LESLY CMP3, TROPN ####[address] [address] [place] [address] Hemogramon 11-20-2016 Erythrocyte distribution width Auto Ratio (RBC) 13.4 % Normal 11.5-14.5 [facility] Comment on above: Performed By: #### H CATHY GRACE3, TROPN ####[address] [address] Erythrocytes (RBC) 5.01 10*6/uL Normal 4.40-5.90 [facility] Comment on above: Performed By: #### H CATHY GRACE3, TROPN ####[address] [address] Hematocrit (HCT) 44.6 % Normal 40.0-52.0 [facility] Comment on above: Performed By: #### H CATHY GRACE3, TROPN ####[address] [address] Hemoglobin mass conc (Bld) 15.3 g/dL Normal 13.0-18.0 [facility] Comment on above: Performed By: #### H LESLY CMP3, TROPN ####[address] [address] MCH 30.5 pg Normal 26.0-34.0 [facility] Comment on above: Performed By: #### H CATHY GRACE3, TROPN ####[address] [address] MCHC mass conc (RBC) 34.3 % Normal 32.0-36.0 [facility] Comment on above: Performed By: #### H LESLY CMP3, TROPN ####[address] [address] MCV 88.9 fL Normal 80.0-98.0 [facility] Comment on above: Performed By: #### H LESLY CMP3, TROPN ####[address] [address] Platelet mean volume (PMV) 6.8 fL Low 7.4-10.4 [facility] Comment on above: Performed By: #### H LESLY CMP3, TROPN ####[address] [place] [address] Platelets 323 10*3/uL Normal 140-440 [facility] Comment on above: Performed By: #### H CATHY GRACE3, TROPN ####[place] [address] WBC (Leukocytes) 8.9 10*3/uL Normal 3.6-10.7 [facility] Comment on above: Performed By: #### H LESLY CMP3, TROPN ####[place] [address] Troponin Ion 11-20-2016 Troponin I.cardiac mass conc ng/mL Normal 0.000-0.04 5 [facility] Comment on above: Result Comment: 0.04 6 - 0.400 = Indeterminate> 0.400 = Consider Myocardial Injury Performed By: #### H CATHY GRACE3, TROPN ####[place] [address] Basic Metabolic Panelon 08-0 Anion gap 9 mmol/L Normal [facility] Comment on above: Performed By: #### H EMDF BMP3, TROPN ####[place] [address] Creatinine 1.14 mg/dL Normal 0.55-1.40 [facility] Comment on above: Performed By: #### H EMDF BMP3, TROPN ####[place] [address] eGFR (black) mL/min/{1.73_m2} Normal >60 [facility] Comment on above: Performed By: #### H EMDF, BMP3, TROPN ####[place] [address] eGFR (non-black) mL/min/{1.73_m2} Normal >60 [facility] Comment on above: Result Comment: Sour ce- MDRD equation with creatinine calibration to IDMS(NKDEP)eGFR not recommended for drug dose adjustment Performed By: #### H EMDF, BMP3, TROPN ####[place] [address] Glucose mass conc 98 mg/dL Normal 70-100 [facility] Comment on above: Performed By: #### H EMDF, BMP3, TROPN ####[address] [address] CO2 27 mmol/L Normal 21-32 [facility] Comment on above: Performed By: #### H EMDF, BMP3, TROPN ####[address] [place] [address] Urea nitrogen 11 mg/dL Normal 7-25 [facility] Comment on above: Performed By: #### H EMDF, BMP3, TROPN ####[address] [address] Calcium 9.4 mg/dL Normal 8.2-10.1 [facility] Comment on above: Performed By: #### H EMDF, BMP3, TROPN ####[address] [address] Chloride 106 mmol/L Normal 98-109 [facility] Comment on above: Performed By: #### H EMDF, BMP3, TROPN ####[address] [address] Potassium molar conc 3.8 mmol/L Normal 3.5-5.1 [facility] Comment on above: Result Comment: Slig htly hemolysed, interpret with caution. Performed By: #### H EMDF, BMP3, TROPN ####[address] [place] [address] Sodium 142 mmol/L Normal 135-145 [facility] Comment on above: Performed By: #### H EMDF, BMP3, TROPN ####[address] [address] CR Chest PA/LATon 09-19-2016 CR Chest PA/LAT Patient Name: DONTAE PARRA Diagnostic Radiology Exam Date/Time 09/19/2016 09:05:22 EDT Exam CR Chest PA/LAT Ordering Physician NESSA NGUYEN, PERRY SEPULVEDA Accession Number [id number] CPT4 Codes 99046 () Reason For Exam CP Report Clinical [...] Transcribed Date and Time: 09/19/2016 9:41 Normal [facility] Hemogram w/ Autodiffon 09-19 Abs Baso Cnt 0.0 10*3/uL Normal 0.0-0.2 [facility] Comment on above: Performed By: #### H EMDF, BMP3, TROPN ####[address] [address] Basophils/100 WBC Auto (Bld) 0.5 % Normal [facility] Comment on above: Performed By: #### H EMDF, BMP3, TROPN ####[address] [address] Eosinophils 0.1 10*3/uL Normal 0.0-0.5 [facility] Comment on above: Performed By: #### H EMDF, BMP3, TROPN ####[address] [address] Eosinophils/100 leukocytes 1.9 % Normal [facility] Comment on above: Performed By: #### H EMDF, BMP3, TROPN ####[address] [address] Erythrocyte distribution width Auto Ratio (RBC) 13.3 % Normal 11.5-14.5 [facility] Comment on above: Performed By: #### H EMDF, BMP3, TROPN ####[address] [address] Erythrocytes (RBC) 5.06 10*6/uL Normal 4.40-5.90 [facility] Comment on above: Performed By: #### H EMDF, BMP3, TROPN ####[address] [address] Granulocytes/100 WBC (Bld) 68.6 % Normal [facility] Comment on above: Performed By: #### H EMDF, BMP3, TROPN ####[address] [address] Hematocrit (HCT) 44.5 % Normal 40.0-52.0 [facility] Comment on above: Performed By: #### H EMDF, BMP3, TROPN ####[address] [address] Hemoglobin mass conc (Bld) 15.2 g/dL Normal 13.0-18.0 [facility] Comment on above: Performed By: #### H EMDF, BMP3, TROPN ####[address] [address] Lymphocytes 1.8 10*3/uL Normal 1.0-4.3 [facility] Comment on above: Performed By: #### H EMDF, BMP3, TROPN ####[address] [address] Lymphocytes/100 leukocytes 22.6 % Normal [facility] Comment on above: Performed By: #### H EMDF, BMP3, TROPN ####[address] [address] MCH 30.1 pg Normal 26.0-34.0 [facility] Comment on above: Performed By: #### H EMDF, BMP3, TROPN ####[address] [address] MCHC mass conc (RBC) 34.2 % Normal 32.0-36.0 [facility] Comment on above: Performed By: #### H EMDF, BMP3, TROPN ####[address] [address] MCV 87.9 fL Normal 80.0-98.0 [facility] Comment on above: Performed By: #### H EMDF, BMP3, TROPN ####[address] [address] Monocytes 0.5 10*3/uL Normal 0.0-0.8 [facility] Comment on above: Performed By: #### H EMDF, BMP3, TROPN ####[address] [address] Monocytes/100 leukocytes 6.4 % Normal [facility] Comment on above: Performed By: #### H EMDF, BMP3, TROPN ####[address] [address] Neutrophils 5.5 10*3/uL Normal 1.8-7.0 [facility] Comment on above: Performed By: #### H EMDF, BMP3, TROPN ####[address] [address] Platelet mean volume (PMV) 6.7 fL Low 7.4-10.4 [facility] Comment on above: Performed By: #### H EMDF, BMP3, TROPN ####[address] [address] Platelets 281 10*3/uL Normal 140-440 [facility] Comment on above: Performed By: #### H EMDF, BMP3, TROPN ####[address] [address] WBC (Leukocytes) 8.1 10*3/uL Normal 3.6-10.7 [facility] Comment on above: Performed By: #### H EMDF, BMP3, TROPN ####[address] [address] Troponin Ion 09-19-2016 Troponin I.cardiac mass conc 0.061 ng/mL High 0.000-0.04 5 [facility] Comment on above: Result Comment: 0.04 6 - 0.400 = Indeterminate> 0.400 = Consider Myocardial Injury Performed By: #### H EMDF, BMP3, TROPN ####[address] [address] Vital Signs Date Time Vital Sign Value Performing Clinician Facility 12-01-2023 11:28-0400 SaO2% (BldA) [Mass fraction] 92 % Cabrera Thomas DO Work Phone: [facility] 12-01-2023 10:30-0400 Body temperature 98.4 [degF] Cabrera Thomas DO Work Phone: [facility] 12-01-2023 10:30-0400 Diastolic blood pressure 69 mm[Hg] Cabrera Thomas DO Work Phone: [facility] 12-01-2023 10:30-0400 Heart rate 78 /min Cabrera Thomas DO Work Phone: [facility] 12-01-2023 10:30-0400 Systolic blood pressure 116 mm[Hg] Cabrera Thomas DO Work Phone: [facility] 12-01-2023 08:12-0400 Respiratory rate 20 /min Cabrera Thomas DO Work Phone: [facility] 12-01-2023 02:57-0400 Body height 182.9 cm Cabrera Thomas DO Work Phone: [facility] 12-01-2023 02:57-0400 Body mass index (BMI) [Ratio] 29.16 kg/m2 Cabrera Thomas DO Work Phone: [facility] 12-01-2023 02:57-0400 Body weight 97.52 kg Cabrera Thomas DO Work Phone: [facility] 04-25-2023 12:47-0500 Body height 182.[address] Tim Alvarado Work Phone: [facility] 04-25-2023 12:47-0500 Body weight 99.[address] Tim Alvarado Work Phone: [facility] 04-25-2023 12:47-0500 Heart rate 89 /min Dr. Tim Alvarado Work Phone: [facility] 04-25-2023 12:47-0500 SaO2% (BldA) [Mass fraction] 95 % Dr. Tim Alvarado Work Phone: [facility] 03-21-2023 06:21-0500 Body mass index (BMI) [Ratio] 30.9 kg/m2 Dr. Tim Alvarado Work Phone: [facility] 03-21-2023 06:21-0500 Body temperature 97.1 [degF] Dr. Tim Alvarado Work Phone: [facility] 03-21-2023 06:21-0500 Body weight 103.[address] Tim Alvarado Work Phone: [facility] 03-21-2023 06:21-0500 Diastolic blood pressure 81 mm[Hg] Dr. Tim Alvarado Work Phone: [facility] 03-21-2023 06:21-0500 Heart rate 80 /min Dr. Tim Alvarado Work Phone: [facility] 03-21-2023 06:21-0500 Respiratory rate 20 /min Dr. Tim Alvarado Work Phone: [facility] 03-21-2023 06:21-0500 SaO2% (BldA) [Mass fraction] 94 % Dr. Tim Alvarado Work Phone: [facility] 03-21-2023 06:21-0500 Systolic blood pressure 123 mm[Hg] Dr. Tim Alvarado Work Phone: [facility] 03-01-2023 13:55-0500 Body mass index (BMI) [Ratio] 31.4 kg/m2 Dr. Tim Alvarado Work Phone: [facility] 03-01-2023 13:55-0500 Body weight 105.[address] Tim Alvarado Work Phone: [facility] 03-01-2023 13:55-0500 Diastolic blood pressure 69 mm[Hg] Dr. Tim Alvarado Work Phone: [facility] 03-01-2023 13:55-0500 Heart rate 82 /min Dr. Tim Alvarado Work Phone: [facility] 03-01-2023 13:55-0500 Respiratory rate 18 /min Dr. Tim Alvarado Work Phone: [facility] 03-01-2023 13:55-0500 Systolic blood pressure 116 mm[Hg] Dr. Tim Alvarado Work Phone: [facility] 01-24-2023 03:58-0500 Diastolic blood pressure 74 mm[Hg] Dr. Bria Olsen Work Phone: [facility] 01-24-2023 03:58-0500 Heart rate 73 /min Dr. Bria Olsen Work Phone: [facility] 01-24-2023 03:58-0500 Respiratory rate 16 /min Dr. Bria Olsen Work Phone: [facility] 01-24-2023 03:58-0500 SaO2% (BldA) [Mass fraction] 99 % Dr. Bria Olsen Work Phone: [facility] 01-24-2023 03:58-0500 Systolic blood pressure 118 mm[Hg] Dr. Bria Olsen Work Phone: [facility] 01-24-2023 01:58-0500 Body height 182.[address] Bria Olsen Work Phone: [facility] 01-24-2023 01:58-0500 Body mass index (BMI) [Ratio] 31.4 kg/m2 Dr. Bria Olsen Work Phone: [facility] 01-24-2023 01:58-0500 Body temperature 96.8 [degF] Dr. Bria Olsen Work Phone: [facility] 01-24-2023 01:58-0500 Body weight [address] Bria Olsen Work Phone: [facility] 01-22-2023 13:32-0500 Body mass index (BMI) [Ratio] 31.7 kg/m2 Dr. Bria Olsen Work Phone: [facility] 01-22-2023 13:32-0500 Body weight 106.[address] Bria Olsen Work Phone: [facility] 01-22-2023 13:32-0500 Diastolic blood pressure 80 mm[Hg] Dr. Bria Olsen Work Phone: [facility] 01-22-2023 13:32-0500 Heart rate 88 /min Dr. Bria Olsen Work Phone: [facility] 01-22-2023 13:32-0500 Respiratory rate 20 /min Dr. Bria Olsen Work Phone: [facility] 01-22-2023 13:32-0500 Systolic blood pressure 125 mm[Hg] Dr. Bria Olsen Work Phone: [facility] 01-08-2023 07:43-0500 Body mass index (BMI) [Ratio] 30.7 kg/m2 Dr. Bria Olsen Work Phone: [facility] 01-08-2023 07:43-0500 Body temperature 97.4 [degF] Dr. Bria Olsen Work Phone: [facility] 01-08-2023 07:43-0500 Body weight 102.[address] Bria Olsen Work Phone: [facility] 01-08-2023 07:43-0500 Diastolic blood pressure 76 mm[Hg] Dr. Bria Olsen Work Phone: [facility] 01-08-2023 07:43-0500 Heart rate 74 /min Dr. Bria Olsen Work Phone: [facility] 01-08-2023 07:43-0500 Respiratory rate 28 /min Dr. Bria Olsen Work Phone: [facility] 01-08-2023 07:43-0500 SaO2% (BldA) [Mass fraction] 96 % Dr. Bria Olsen Work Phone: [facility] 01-08-2023 07:43-0500 Systolic blood pressure 112 mm[Hg] Dr. Bria Olsen Work Phone: [facility] 11-06-2022 14:27-0400 Body mass index (BMI) [Ratio] 31.4 kg/m2 Dr. Bria Olsen Work Phone: [facility] 11-06-2022 14:27-0400 Body weight 105.[address] Bria Olsen Work Phone: [facility] 11-06-2022 14:27-0400 Diastolic blood pressure 84 mm[Hg] Dr. Bria Olsen Work Phone: [facility] 11-06-2022 14:27-0400 Heart rate 91 /min Dr. Bria Olsen Work Phone: [facility] 11-06-2022 14:27-0400 Respiratory rate 18 /min Dr. Bria Olsen Work Phone: [facility] 11-06-2022 14:27-0400 Systolic blood pressure 136 mm[Hg] Dr. Bria Olsen Work Phone: [facility] 10-17-2022 20:13-0400 Body height 182.9 cm [employer] DO [facility] 10-17-2022 20:13-0400 Body temperature 98.24 [degF] JEANNIE REICHPhyscient DO [facility] 10-17-2022 20:13-0400 Body weight 103 kg JEANNIE REICHPhyscient DO [facility] 10-17-2022 20:13-0400 Diastolic Blood Pressure Non-Invasive 83 1 JEANNIE REICHPhyscient DO [facility] 10-17-2022 20:13-0400 Heart rate 76 /min JEANNIE REICHPhyscient DO [facility] 10-17-2022 20:13-0400 Respiratory rate 16 /min JEANNIE GARNETT DO [facility] 10-17-2022 20:13-0400 Systolic Blood Pressure Non-Invasive 134 1 [facility] 10-05-2022 08:23-0400 Body mass index (BMI) [Ratio] 31.1 kg/m2 Dr. Bria Olsen Work Phone: [facility] 10-05-2022 08:23-0400 Body temperature 97.5 [degF] Dr. Bria Olsen Work Phone: [facility] 10-05-2022 08:23-0400 Body weight 104.[address] Bria Olsen Work Phone: [facility] 10-05-2022 08:23-0400 Diastolic blood pressure 77 mm[Hg] Dr. Bria Olsen Work Phone: [facility] 10-05-2022 08:23-0400 Heart rate 74 /min Dr. Bria Olsen Work Phone: [facility] 10-05-2022 08:23-0400 Respiratory rate 18 /min Dr. Bria Olsen Work Phone: [facility] 10-05-2022 08:23-0400 SaO2% (BldA) [Mass fraction] 96 % Dr. Bria Olsen Work Phone: [facility] 10-05-2022 08:23-0400 Systolic blood pressure 119 mm[Hg] Dr. Bria Olsen Work Phone: [facility] 08-28-2022 10:43-0400 Body height 182.[address] Jonh Boyd Work Phone: [facility] 08-28-2022 10:40-0400 Body mass index (BMI) [Ratio] 31.6 kg/m2 Dr. Jonh Boyd Work Phone: [facility] 08-28-2022 10:40-0400 Body temperature 98.4 [degF] Dr. Jonh Boyd Work Phone: [facility] 08-28-2022 10:40-0400 Body weight 105.[address] Jonh Boyd Work Phone: [facility] 08-28-2022 10:40-0400 Diastolic blood pressure 72 mm[Hg] Dr. Jonh Boyd Work Phone: [facility] 08-28-2022 10:40-0400 Heart rate 74 /min Dr. Jonh Boyd Work Phone: [facility] 08-28-2022 10:40-0400 Respiratory rate 22 /min Dr. Jonh Boyd Work Phone: [facility] 08-28-2022 10:40-0400 SaO2% (BldA) [Mass fraction] 95 % Dr. Jonh Boyd Work Phone: [facility] 08-28-2022 10:40-0400 Systolic blood pressure 116 mm[Hg] Dr. Jonh Boyd Work Phone: [facility] 07-10-2022 15:03-0400 Respiratory rate 18 /min Dr. Jonh Boyd Work Phone: [facility] 07-10-2022 09:55-0400 Body height 182.[address] Jonh Boyd Work Phone: [facility] 07-10-2022 09:55-0400 Body mass index (BMI) [Ratio] 31.3 kg/m2 Dr. Jonh Boyd Work Phone: [facility] 07-10-2022 09:55-0400 Body temperature 98.5 [degF] Dr. Jonh Boyd Work Phone: [facility] 07-10-2022 09:55-0400 Body weight 104.[address] Jonh Boyd Work Phone: [facility] 07-10-2022 09:55-0400 Diastolic blood pressure 76 mm[Hg] Dr. Jonh Boyd Work Phone: [facility] 07-10-2022 09:55-0400 Heart rate 97 /min Dr. Jonh Boyd Work Phone: [facility] 07-10-2022 09:55-0400 SaO2% (BldA) [Mass fraction] 98 % Dr. Jonh Boyd Work Phone: [facility] 07-10-2022 09:55-0400 Systolic blood pressure 114 mm[Hg] Dr. Jonh Boyd Work Phone: [facility] 06-15-2022 10:07-0400 Body height 182.[address] Jonh Boyd Work Phone: [facility] 06-15-2022 10:07-0400 Body mass index (BMI) [Ratio] 31.6 kg/m2 Dr. Jonh Boyd Work Phone: [facility] 06-15-2022 10:07-0400 Body weight 105.[address] Jonh Boyd Work Phone: [facility] 06-15-2022 10:07-0400 Diastolic blood pressure 77 mm[Hg] Dr. Jonh Boyd Work Phone: [facility] 06-15-2022 10:07-0400 Heart rate 74 /min Dr. Jonh Boyd Work Phone: [facility] 06-15-2022 10:07-0400 Respiratory rate 16 /min Dr. Jonh Boyd Work Phone: [facility] 06-15-2022 10:07-0400 Systolic blood pressure 126 mm[Hg] Dr. Jonh Boyd Work Phone: [facility] 05-29-2022 10:16-0400 Body height 182.[address] Jonh Boyd Work Phone: [facility] 05-29-2022 10:13-0400 Body mass index (BMI) [Ratio] 30.9 kg/m2 Dr. Jonh Boyd Work Phone: [facility] 05-29-2022 10:13-0400 Body temperature 97.4 [degF] Dr. Jonh Boyd Work Phone: [facility] 05-29-2022 10:13-0400 Body weight 103.[address] Jonh Boyd Work Phone: [facility] 05-29-2022 10:13-0400 Diastolic blood pressure 81 mm[Hg] Dr. Jonh Boyd Work Phone: [facility] 05-29-2022 10:13-0400 Heart rate 79 /min Dr. Jonh Boyd Work Phone: [facility] 05-29-2022 10:13-0400 Respiratory rate 22 /min Dr. Jonh Boyd Work Phone: [facility] 05-29-2022 10:13-0400 SaO2% (BldA) [Mass fraction] 97 % Dr. Jonh Boyd Work Phone: [facility] 05-29-2022 10:13-0400 Systolic blood pressure 133 mm[Hg] Dr. Jonh Boyd Work Phone: [facility] 05-22-2022 09:06-0400 SaO2% (BldA) [Mass fraction] 98 % Dr. Jonh Boyd Work Phone: [facility] 05-22-2022 07:58-0400 Body mass index (BMI) [Ratio] 30.1 kg/m2 Dr. Jonh Boyd Work Phone: [facility] 05-22-2022 07:58-0400 Body temperature 97.6 [degF] Dr. Jonh Boyd Work Phone: [facility] 05-22-2022 07:58-0400 Body weight 100.[address] Jonh Boyd Work Phone: [facility] 05-22-2022 07:58-0400 Diastolic blood pressure 74 mm[Hg] Dr. Jonh Boyd Work Phone: [facility] 05-22-2022 07:58-0400 Heart rate 77 /min Dr. Jonh Boyd Work Phone: [facility] 05-22-2022 07:58-0400 Respiratory rate 18 /min Dr. Jonh Boyd Work Phone: [facility] 05-22-2022 07:58-0400 Systolic blood pressure 107 mm[Hg] Dr. Jonh Boyd Work Phone: [facility] 02-01-2022 19:01-0500 Diastolic Blood Pressure Non-Invasive 60 1 MO GARAY MD [facility] 02-01-2022 19:01-0500 Heart rate 78 /min MO GARAY MD [facility] 02-01-2022 19:01-0500 Systolic Blood Pressure Non-Invasive 106 1 MO GARAY MD [facility] 02-01-2022 16:59-0500 Heart rate 77 /min MO GARAY MD [facility] 02-01-2022 15:12-0500 Heart rate 78 /min MO GARAY MD [facility] 02-01-2022 13:53-0500 Diastolic Blood Pressure Non-Invasive 60 1 MO GARAY MD [facility] 02-01-2022 13:53-0500 Systolic Blood Pressure Non-Invasive 101 1 MO GARAY MD [facility] 02-01-2022 13:17-0500 Diastolic Blood Pressure Non-Invasive 60 1 MO GARAY MD [address] 02-01-2022 13:17-0500 Respiratory rate 16 /min MO GARAY MD [address] [place] [address] 02-01-2022 13:17-0500 Systolic Blood Pressure Non-Invasive 103 1 MO GARAY MD [address] [place] [address] 02-01-2022 12:32-0500 Blood Pressure Cuff Size OM GARAY MD [address] 02-01-2022 12:32-0500 Blood Pressure Location MO GARAY MD [address] [place] [address] 02-01-2022 12:32-0500 Blood Pressure Method MO GARAY MD [address] [place] [address] 02-01-2022 12:32-0500 Reason For Taking VItal Signs MO GARAY MD [address] 02-01-2022 12:32-0500 Respiratory rate 16 /min MO GARAY MD [address] [place] [address] 02-01-2022 11:53-0500 Blood Pressure Cuff Size MO GARAY MD [address] [place] [address] 02-01-2022 11:53-0500 Blood Pressure Location MO GARAY MD [address] 02-01-2022 11:53-0500 Blood Pressure Method MO GARAY MD [address] 02-01-2022 11:53-0500 Reason For Taking VItal Signs MO GARAY MD [address] 02-01-2022 05:44-0500 Blood Pressure Cuff Size MO GARAY MD [address] 02-01-2022 05:44-0500 Blood Pressure Location MO GARAY MD [address] 02-01-2022 05:44-0500 Blood Pressure Method MO GARAY MD [facility] 02-01-2022 05:44-0500 Body height 185.4 cm MO GARAY MD [facility] 02-01-2022 05:44-0500 Body temperature 97.88 [degF] MO GARAY MD [facility] 02-01-2022 05:44-0500 Body weight 96.8 kg MO GARAY MD [facility] 02-01-2022 05:44-0500 Body weight 28.16 kg/m2 MO GARAY MD [facility] 08-31-2021 12:11-0400 Body height 182.9 cm Yony Frias DO Work Phone: [place] 08-31-2021 12:11-0400 Body weight 100.7 kg Yony Frias DO Work Phone: [place] 08-31-2021 12:11-0400 Diastolic blood pressure 79 mm[Hg] Yony Frias DO Work Phone: [place] 08-31-2021 12:11-0400 Heart rate 84 /min Yony Frias DO Work Phone: [place] 08-31-2021 12:11-0400 SaO2% (BldA) [Mass fraction] 95 % Yony Frias DO Work Phone: [place] 08-31-2021 12:11-0400 Systolic blood pressure 118 mm[Hg] Yony Frias DO Work Phone: [place] Encounters Encounter Date Encounter Type Care Provider Facility Start: 10-31-2024 End: 10-31-2024 ambulatory JEANNIE ELPIDIO Facility:[facility] Start: 10-28-2024 End: 11-01-2024 ambulatory JEANNIE ELPIDIO HARVESTING MANAGER-BANQUET HOUSEPERSON Facility:[facility] Start: 10-28-2024 End: 11-01-2024 Outreach Lab JEANNIE ELPIDIO HARVESTING MANAGER-BANQUET HOUSEPERSON [facility] Start: 10-08-2024 End: 10-08-2024 ambulatory JEANNIE ELPIDIO Facility:[facility] Start: 09-29-2024 End: 09-29-2024 ambulatory JEANNIE ELPIDIO Facility:[facility] Start: 09-25-2024 End: 09-25-2024 ambulatory JEANNIE ELPIDIO Facility:[facility] Start: 09-05-2024 End: 09-05-2024 ambulatory JEANNIE ELPIDIO Facility:[facility] Start: 09-04-2024 ambulatory JEANNIE ELPIDIO Facilit y:[facility] Start: 09-04-2024 End: 09-04-2024 ambulatory Calvin Friend Facility:[facility] Start: 07-28-2024 End: 07-28-2024 ambulatory JEANNIE ELPIDIO HARVESTING MANAGER-BANQUET HOUSEPERSON [facility] Start: 07-28-2024 End: 07-28-2024 Patient encounter procedure MICHELLE MOORE HARVESTING MANAGER - BANQUET HOUSEPERSON [facility] Start: 07-25-2024 End: 07-25-2024 ambulatory JEANNIE ELPIDIO HARVESTING MANAGER-BANQUET HOUSEPERSON [facility] Start: 07-25-2024 End: 07-25-2024 Patient encounter procedure JEANNIE ELPIDIO HARVESTING MANAGER-BANQUET HOUSEPERSON [facility] Start: 06-27-2024 End: 06-27-2024 ambulatory JEANNIE ELPIDIO Facility:[facility] Start: 06-19-2024 End: 06-19-2024 ambulatory JEANNIE ELPIDIO HARVESTING MANAGER-BANQUET HOUSEPERSON [facility] Start: 06-19-2024 End: 06-19-2024 Patient encounter procedure JEANNIE ELPIDIO HARVESTING MANAGER-BANQUET HOUSEPERSON [facility] Start: 06-18-2024 End: 06-18-2024 ambulatory JEANNIE ELPIDIO HARVESTING MANAGER-BANQUET HOUSEPERSON [facility] Start: 06-18-2024 End: 06-18-2024 Patient encounter procedure JEANNIE ELPIDIO HARVESTING MANAGER-BANQUET HOUSEPERSON [facility] Start: 05-14-2024 End: 05-14-2024 ambulatory Delores Pablo Facility:[facility] Start: 04-17-2024 ambulatory Elda Villegas BIOLOGICAL TECHNICAL OFFICER Facility :[facility] Start: 04-11-2024 End: 04-11-2024 ambulatory Delores Pablo Facility:[facility] Start: 04-09-2024 ambulatory JEANNIE ELPIDIO Facilit y:[facility] Start: 03-28-2024 End: 03-28-2024 ambulatory Elda H Roof BIOLOGICAL TECHNICAL OFFICER Facility:[facility] Start: 03-03-2024 ambulatory Bria Olsen [facility] Start: 02-29-2024 End: 02-29-2024 ambulatory Delores Pablo Facility:[facility] Start: 02-26-2024 End: 02-26-2024 ambulatory Elda H Nelly BIOLOGICAL TECHNICAL OFFICER Facility:[facility] Start: 02-21-2024 End: 02-21-2024 ambulatory Delores Pablo Facility:[facility] Start: 02-19-2024 End: 02-19-2024 ambulatory JEANNIE ELPIDIO Facility:[facility] Start: 02-19-2024 End: 02-19-2024 ambulatory Delores Pablo Facility:[facility] Start: 01-21-2024 End: 01-21-2024 ambulatory JEANNIE ELPIDIO Facility:[facility] Start: 01-14-2024 End: 01-14-2024 ambulatory Delores Pablo Facility:[facility] Start: 01-08-2024 End: 01-08-2024 ambulatory JEANNIE ELPIDIO Facility:[facility] Start: 12-25-2023 ambulatory JEANNIE ELPIDIO Facilit y:[facility] Start: 12-19-2023 End: 12-19-2023 ambulatory LAURA WARREN HARVESTING MANAGER-BANQUET HOUSEPERSON Facility:[facility] Start: 12-19-2023 End: 12-19-2023 Patient encounter procedure LAURA WARREN HARVESTING MANAGER-BANQUET HOUSEPERSON [facility] Start: 12-01-2023 End: 12-01-2023 Evaluation and management of inpatient Cabrera Thomas DO Work Phone: [facility] Res[facility] Unit 7W Comment on above: Fall, initial encoun ter (Primary Dx) Start: 11-30-2023 End: 12-01-2023 Emergency department patient visit MUMTAZ BERMUDEZ LEYDI [facility] Start: 11-20-2023 End: 11-20-2023 ambulatory SATHYANARAYAN WANG Facility:[facility] Start: 11-06-2023 End: 11-06-2023 ambulatory JEANNIE HERNANDEZ [facility] Start: 06-20-2023 End: 06-20-2023 ambulatory Out of Town Doctor [facility] Work Phone: Start: 06-20-2023 End: 06-20-2023 Patient encounter procedure Out Town Doctor [facility]-Cardiovascul ar Services Work Phone: Start: 04-26-2023 Non-patient / Non-visit Dr. Tim Alvarado Work Phone: [facility] Start: 04-25-2023 End: 04-25-[address] Tim Alvarado Work Phone: [facility] Work Phone: Start: 04-25-2023 End: 04-25-[address] Tim Alvarado Work Phone: [facility]-Pulmonary Services/Neurology Work Phone: Start: 03-21-2023 End: 03-21-[address] Tim Alvarado Work Phone: [facility]-Pulmonary Medicine [facility] Work Phone: Start: 03-01-2023 End: 03-01-[address] Tim Alvarado Work Phone: [facility] Work Phone: Start: 01-24-2023 End: 01-24-2023 Emergency department patient visit Dr. Bria Olsen Work Phone: [facility]-Emergency Department Work Phone: Start: 01-22-2023 End: 01-22-[address] Bria Olsen Work Phone: [facility] Work Phone: Start: 01-22-2023 End: 01-22-[address] Bria Olsen Work Phone: [facility]-Radiology, [facility] Work Phone: Start: 01-08-2023 End: 01-08-[address] Bria Olsen Work Phone: [facility]-Pulmonary Medicine [facility] Work Phone: Start: 11-10-2022 Non-patient / Non-visit Dr. Bria Olsen Work Phone: [facility] Start: 11-10-2022 End: 11-10-[address] Bria Olsen Work Phone: [facility]Cardiovascul [facility] Services Work Phone: Start: 11-06-2022 End: 11-06-[address] Bria Olsen Work Phone: [facility] Work Phone: Start: 10-17-2022 End: 10-17-2022 Emergency department patient visit [facility] Facility:[facility] Start: 10-17-2022 End: 10-17-2022 Emergency department patient visit [facility] Start: 10-05-2022 End: 10-05-[address] Bria Olsen Work Phone: [facility] Work Phone: Start: 08-28-2022 End: 08-28-[address] Jonh Boyd Work Phone: [facility] Work Phone: Start: 08-15-2022 Non-patient / Non-visit Dr. Jonh Boyd Work Phone: [facility] Start: 08-14-2022 End: 08-14-[address] Jonh Boyd Work Phone: [facility] Work Phone: Start: 08-14-2022 End: 08-14-[address] Jonh Boyd Work Phone: [facility]-Pulmonary Services/Neurology Work Phone: Start: 07-18-2022 Non-patient / Non-visit Dr. Jonh Boyd Work Phone: [facility] Start: 07-18-2022 End: 07-18-[address] Jonh Boyd Work Phone: [facility] Work Phone: Start: 07-18-2022 End: 07-18-[address] Jonh Boyd Work Phone: [facility]Cardiovascul [facility] Services Start: 07-12-2022 End: 07-12-[address] Jonh Boyd Work Phone: [facility] Work Phone: Start: 07-12-2022 End: 07-12-[address] Jonh Boyd Work Phone: [facility]-Laboratory Start: 07-10-2022 End: 07-10-[address] Jonh Boyd Work Phone: [facility]-Sleep Lab Start: 07-10-2022 End: 07-10-2022 Emergency department patient visit Dr. John Boyd Work Phone: [facility]-Emergency Department Start: 06-16-2022 End: 06-16-[address] Jonh Boyd Work Phone: [facility] Work Phone: Start: 06-16-2022 End: 06-16-[address] Jonh Boyd Work Phone: [facility]-Pulmonary Services/Neurology Start: 06-15-2022 End: 06-15-[address] Jonh Boyd Work Phone: [facility] Start: 06-12-2022 End: 06-12-[address] Jonh Boyd Work Phone: [facility] Work Phone: Start: 06-12-2022 End: 06-12-[address] Jonh Boyd Work Phone: [facility]-Sleep Lab Start: 05-29-2022 End: 05-29-[address] [facility] Start: 05-25-2022 Non-patient / Non-visit Dr. Jonh Boyd Work Phone: [facility] Start: 05-25-2022 End: 05-25-[address] Jonh Boyd Work Phone: [facility] Work Phone: Start: 05-25-2022 End: 05-25-[address] Jonh Boyd Work Phone: [facility]-Pulmonary Services/Neurology Start: 05-24-2022 Non-patient / Non-visit Dr. Jonh Boyd Work Phone: [facility] Start: 05-22-2022 End: 05-22-[address] Jonh Boyd Work Phone: [facility]-Pulmonary Medicine [facility] Start: 05-05-2022 ambulatory ELDA HUNTER MD Fac ility:[facility] Start: 02-01-2022 End: 02-01-2022 ambulatory MO GARAY MD Facility:[facility] Start: 02-01-2022 End: 02-01-2022 SAME DAY STAY MO GARAY MD [facility] Start: 01-26-2022 [facility] Start: 09-06-2021 End: 09-06-2021 Subsequent hospital visit by physician Provider [facility] Comment on above: HEMOPTYSIS, CHRONIC OBSTRUCTIVE PULMONARY DISEASE Start: 09-01-2021 [facility] Comment on above: Smoking Cessation Procedure Start: 08-31-2021 End: 08-31-2021 Patient encounter procedure Yony Frias DO Work Phone: [facility]monary/[facility] Comment on above: Hemoptysis (Primary Dx); Tobacco use current; Chronic obstructive pulmonary disease, unspecified COPD type (HCC); SOB (shortness of breath) on exertion; Coronary artery disease involving [place] coronary artery of [place] tribe heart without angina pectoris; History of 2019 novel coronavirus disease (COVID-19) Start: 12-20-2016 Ambulatory MERLY VILLEGAS [facility] Start: 11-20-2016 Ambulatory Dylan Sherita [facility] Start: 09-19-2016 Ambulatory Dylan Sherita [facility] Start: 08-06-2016 End: 08-07-2016 Emergency department patient visit NO REFERRING DR Facility:[facility] Procedures Date Procedure Procedure Detail Performing Clinician Start: 12-01-2023 Comprehensive metabo lic panel Tonya Perkins DO Work Phone: Start: 12-01-2023 End: 12-01-2023 Radex shoulder complete minimum 2 views Randy Benavidez MD Work Phone: Start: 12-01-2023 Ct [...] or older (1 - 1-dose 60+ series) [employer] Start: 11-30-2024 Creatinine measurement Creatinine Le laura [employer] Start: 11-30-2024 Potassium measurement Potassium Leve l [employer] Start: 11-04-2024 ambulatory Ambulatory Facility:[facility] Start: 2024 Zoster Vaccines (1 of 2) Zoste r Vaccines (1 of 2) [facility] Start: 10-21-2023 COVID-19 Vaccine ( season) COVID-19 Vaccine ( season) [facility] Start: 10-21-2023 Influenza vaccination Influenza Vacc ine (#1) [facility] Start: 01-24-2023 [facility] Start: 10-20-2021 Influenza vaccination INFLUENZA (#1) [place] Start: 02-10-2020 Pneumococcal Vaccine : Pediatrics (0 to 5 Years) and At-Risk Patients (6 to 64 Years) (2 of 2 - PPSV23 or PCV20) Pneumococcal Vaccine: Pediatrics (0 to 5 Years) and At-Risk Patients (6 to 64 Years) (2 of 2 - PPSV23 or PCV20) [facility] Start: 08-07-2019 DIABETES SCREEN DIABETES SCREEN [facility] Start: 07-05-2019 COLOGUARD (FIT-DNA) COLOGUARD (FIT-D NA) [place] Start: 07-05-2019 Colonoscopy COLONOSCOPY [place] Start: 07-05-2019 COLORECTAL CANCER SCREENING COLORECTAL CANCER SCREENING [place] Start: 07-05-[address] COLONOGRAPHY [facility] Start: 07-05-2019 FECAL OCCULT BLOOD FECAL OCCULT BLOO D [place] Start: 07-05-2019 SIGMOIDOSCOPY SIGMOIDOSCOPY [facility] Start: 05-02-2019 LIPID SCREEN LIPID SCREEN [place] Start: 05-02-2015 Hepatitis B surface antibody level LDL CHOLESTEROL [place] Start: 1993 DTaP/Tdap/Td Vaccine s (1 - Tdap) DTaP/Tdap/Td Vaccines (1 - Tdap) [facility] Start: 1993 Hepatitis B Vaccines (1 of 3 - 19+ 3-dose series) Hepatitis B Vaccines (1 of 3 - 19+ 3-dose series) [facility] Start: 1993 Urine microalbumin profile DTAP,TDAP ,TD (1 - Tdap) [place] Start: 1992 ANNUAL PCP TEAM LOAD OUT PERSON CECI DISEASE VISIT ANNUAL PCP TEAM CHRONIC DISEASE VISIT [place] Start: 1992 Diabetes mellitus screening Diabetes Screening [facility] Start: 1992 HEPATITIS C SCREENING HEPATITIS C SC [facility] Start: 1992 Hepatitis C screening Hepatitis C [facility] Start: 1992 HIV SCREENING HIV SCREENING [facility] Start: 1992 SPIROMETRY SPIROMETRY [place] Start: 1986 Adult depression scr eening assessment DEPRESSION SCREENING [place] Start: 1986 Depression Monitoring Depression Mon itoring [facility] Start: 1980 PNEUMOCOCCAL (1 - PCV) PNEUMOCOCCAL (1 - PCV) [place] Start: 07-05-1975 MMR Vaccines (1 of 1 - Standard series) MMR Vaccines (1 of 1 - Standard series) [facility] Start: 01-04-1975 COVID-19 VACCINE (#1) COVID-19 VACCI NE (#1) [place] Start: 1974 Echocardiography Echocardiogram [facility] Start: 1974 HIV screening HIV Screening [facility] Start: 1974 Lipid panel Lipid Panel [facility] Start: 1974 Screening for malign ant neoplasm of colon [facility] End: 09-30-2022 BRONCHOSCOPY BRONCHOSCOPY Endoscopy Routine Hemoptysis 1 Occurrences starting 08/31/2021 until 09/30/2022 [facility] Work Phone: Comment on above: 1 Occurrences starti ng 08/31/2021 until 09/30/2022 CT Chest W contrast IV [facility] CTA Head vessels and Neck vessels W contrast IV [facility] Inhalation challenge test report Document --W methacholine inhaled [facility] Patient Education [facility] Work Phone: Patient referral [facility] Work Phone: Radionuclide imaging of perfusion of myocardium under exercise stress [facility] End: 09-30-2022 SPIROMETRY BASELINE ONLY SPIROMETRY BASELINE ONLY PFT Routine SOB (shortness of breath) on exertion 1 Occurrences starting 08/31/2021 until 09/30/2022 [facility] Work Phone: Comment on above: 1 Occurrences starti ng 08/31/2021 until 09/30/2022 Tobacco use cessatio n education [facility] US Heart [facility] Immunizations Immunization Date Immunization Notes Care Provider Klaudia lai 12-02-2023 influenza vaccine tiss-cult subunt (Flucelvax) STANDARD-DOSE injection 0.5 mL Cabrera Thomas DO Work Phone: [employer] 12-16-2019 influenza virus vacc ine, unspecified formulation Cabrera Thomas DO Work Phone: [facility] [employer] Payers Date Payer Category Payer Medicare [id number] 2024 Private Health Insurance [id number] 2024 Private Health Insurance [id number] 2023 Unknown 2022 Self-pay 2022 Medicaid [id number] 2022 Medicaid [id number] 2022 Unknown [id number] 2021 Unknown [employer] PPO [id number] 2021-Present [phone] [address] [place] [address] PPO [id number] 1974 Unknown [id number] 2.840.1.323805.3.579.2.6 27 1974 Unknown [id number] 2.16840.1.062019.3.579.2.6 27 1974 Unknown [id number] 2.16.840.1.217397.3.579.2.6 27 1974 Unknown [id number] 2.16840.1.640689.3.579.2.6 51 1974 Unknown [id number] 2.16.840.1.121317.3.579.2.6 27 1974 Unknown [id number] 2.16.840.1.697298.3.579.2.6 27 1974 Unknown [id number] 2.16.840.1.006606.3.579.2.6 27 1974 Unknown [id number] 2..840.1.332143.3.579.2.6 27 1974 Unknown [id number] 2.16.840.1.135792.3.579.2.6 27 1974 Unknown [id number] 2..840.1.716622.3.579.2.6 27 Unknown [id number] Unknown [id number] 2..840.1.536548.3.579.2.4 62 Unknown [id number] 2..840.1.330382.3.579.2.4 62 Unknown [id number] 2.16.840.1.655442.3.579.2.4 62 Unknown [id number] 2..840.1.016904.3.579.2.4 62 Unknown [id number] 2..840.1.401763.3.579.2.4 62 Unknown [id number] 2..840.1.407901.3.579.2.4 62 Unknown [id number] 2.16.840.1.153632.3.579.2.4 62 Unknown [id number] 2.16.840.1.981731.3.579.2.4 62 Unknown [id number] 2.16.840.1.851608.3.579.2.4 62 Unknown [id number] 2.16.840.1.761782.3.579.2.4 62 Unknown [id number] 2.16.840.1.251716.3.579.2.4 62 Unknown [id number] 2.16.840.1.333458.3.579.2.4 62 Unknown [id number] 2.16.840.1.476520.3.579.2.4 62 Unknown [id number] 2.16.840.1.251796.3.579.2.4 62 Unknown [id number] 2.16.840.1.939511.3.579.2.4 62 Unknown [id number] 2.16.840.1.359041.3.579.2.4 62 Unknown [id number] 2.16.840.1.432512.3.579.2.4 62 Unknown [id number] 2.16.840.1.574732.3.579.2.4 62 Unknown [id number] 2.16.840.1.164817.3.579.2.4 62 Unknown [id number] 2.16.840.1.903173.3.579.2.4 62 Unknown [id number] 2.16.840.1.490523.3.579.2.4 62 Unknown [id number] 2.16.840.1.936417.3.579.2.4 62 Unknown [id number] 2.16.840.1.073027.3.579.2.4 62 Unknown [id number] 2.16.840.1.797206.3.579.2.4 62 Unknown [id number] 2.16.840.1.522785.3.579.2.4 62 Unknown [id number] 2.16.840.1.925559.3.579.2.4 62 Unknown [id number] 2.16.840.1.687472.3.579.2.4 62 Unknown [id number] 2.16.840.1.221935.3.579.2.4 62 Social History Date Type Detail Facility [facility] [place] Start: 02-20-1996 History of tobacco use Smoker [place] Start: 08-31-2021 End: 12-01-2023 Cigarettes smoked current (pack per day) - Reported 2 [facility] Start: 08-31-2021 Tobacco use and exposure Smokeless tobacco non-user [place] Start: 08-31-2021 Alcohol intake Ex-drinker (finding) [place] Start: 08-31-2021 Tobacco Comment now down to 1. 5 packs daily 08/31/2021 [place] Start: 1975 Sex Assigned At Not on file C [facility] Start: 08-21-2021 End: 08-31-2021 Exposure to SARS-CoV-2 (event) Not sure [place] Start: 12-28-2021 Tobacco smoking status Heavy t obacco smoker (finding) [facility] Start: 1975 Sex Assigned At Male A [facility] Start: 05-29-2022 End: 03-21-2023 Tobacco smoking status NHIS Unknown if ever smoked [facility] End: 10-19-2015 History of tobacco use Cigarette Smoker [facility] Start: 01-02-2017 Alcoholic beverage intake Current non-drinker of alcohol (finding) [facility] Start: 12-01-2023 [facility] Utilities [facility] Has the [employer], [employer], [employer], or water company threatened to shut off services in your home in past 12Mo No [facility] How often to you hav e a drink containing alcohol? Never [facility] How many standard drinks containing alcohol do you have on a typical day? Patient does not drink [facility] (I/We) worried reynold er (my/our) food would run out before (I/we) got money to buy more. Never true [facility] Tobacco Nicotine Use: 1 pack daily. Type: Cigarettes. Tobacco use per day: 20. [facility] Tobacco smoking status [facility] Start: 03-12-2019 Sex Male (finding) [facility] Functional Status Date Assessment Result Facility 10-17-2022 Functional Status Standard Safet y ID band on, Call device within reach, Bed in low position, Wheels locked, Upper/Half-Length side-rails up, Bedside Cart Locked, Safety level maintained [facility] 02-01-2022 Functional Status Ambulating in bahena, Ambulating in room [facility] 02-01-2022 Functional Status [facility] 02-01-2022 Functional Status Standard Safet y Safety level maintained [facility] 02-01-2022 Functional Status [facility] 02-01-2022 Functional Status Maintained [facility] Mental Status Date Assessment Result Facility 01-24-2023 Cognitive function Voice/Name [facility] Work Phone: 10-17-2022 Mental Status Orientation Oriented x 4 [facility] 02-01-2022 Mental Status Orientation Oriented x 4 [facility] 02-01-2022 Mental Status [facility] 02-01-2022 Mental Status [facility] Clinical Notes 08-31-2021 to 09-04-2024 Note Date & Type Note Facility 09-04-2024 Note [facility] Medical Records Department [address] [place] [address] History Physical Exam 09/04/24 0652 MR#: [id number] Acct: [id number] Name: DONTAE PARRA Rep #: [id number] : 1975 49 From: Calvin Jasso DO PCP: JOEL CATNOR Status:[facility] Location: [place] [address] HPI - General General Date of Admission: 09/04/24 Date of Service: 09/04/24 Chief Complaint: Screening colonoscopy, change in bowel habits and lower GI bleeding HPI Narrative DONTAE PARRA, is a 49 M who presents with the Chief Complaint: Constipation, Rectal bleeding Hx of tobacco use, HLD, stroke, PNA, GERD, COPD, anx/dep, asthma, CAD, emphysema, HTN, eosinophilia. He reports constipation for 5 days with abdominal distention and pain; tried Miralax without results; saw his PCP who recommended magnesium citrate. He said he didn't care at that point and just took the whole bottle in one shot on Sunday night and by Sunday at 2a he had to get up to have a BM. He denied the stool being of significant caliber at the beginning, it was mostly like water with a lot of blood in it. He provided a picture from Sunday morning of very small drips of bright blood in the toilet water. He denies bleeding since. He reports sharp lower abdominal cramping that signals his need for BM and once BM is complete the cramp goes away. He denies rectal pressure and tenesmus. He states that his BMs are daily and complete now. He reports taking omeprazole 40mg daily for reflux and heartburn and without it he has severe nausea. He denies difficulty chewing and swallowing, throat clearing, sinus drainage, emesis, abdominal bloating, diarrhea, and melena. He denies knowing pertinent family history regarding colon cancer and autoimmune disorders. He reports nightly use of oxygen at 3 lpm. [facility] Medical History Wears dentures Wears glasses Arthritis High cholesterol Injury of head and neck Injury of back History of IBS Gastric reflux Smoker CPAP (continuous positive airway pressure) dependence Sleep apnea On home oxygen therapy Emphysema, unspecified Shortness of breath on exertion Cardiology follow-up encounter History of stress test History of irregular heartbeat RLQ abdominal pain GI bleed Mild sleep apnea Chronic cough Nicotine dependence Family history of ischemic heart disease and other diseases of the circulatory system Presence of stent in coronary artery ( 02/01/22) Old myocardial infarction Primary snoring Nicotine addiction Hemoptysis Nicotine dependence, cigarettes, uncomplicated Abdominal distension (gaseous) Unspecified systolic (congestive) heart failure Hyperlipidemia Atherosclerosis of coronary artery of [place] heart without angina pectoris Chest pain Noncompliance with medications Essential hypertension Stroke Pneumonia GERD (gastroesophageal reflux disease) COPD (chronic obstructive pulmonary disease) Depression Anxiety Asthma Emphysema, unspecified CAD (coronary artery disease) Encounter for 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) Home Medications ???Medication ???Instructions ???Recorded ???Last Taken ???Type albuterol sulfate 2.5 mg/3 mL 2.5 mg inhalation Q4H PRN 05/22/22 Unknown History (0.083 %) solution for nebulization shortness of breath or wheezing albuterol sulfate 90 mcg/actuation 2 puff inhalation Q4H PRN Unknown History aerosol inhaler shortness of breath or wheezing aspirin 81 mg tablet,delayed 81 mg PO DAILY 05/22/22 Unknown Hi story release magnesium oxide 250 mg PO DAILY 05/22/22 Unknown H istory omeprazole 40 mg capsule,delayed 40 mg PO DAILY 05/22/22 Unknown Hi story release rosuvastatin 10 mg tablet 10 mg PO DAILY 05/22/22 Unknown Hi story carvedilol phosphate 20 mg 20 mg PO DAILY 06/15/22 Unknown Hi story capsule,ext.keonpaf97vy multiphase montelukast 10 mg tablet 10 mg PO QPM #90 tabs 01/08/23 Unk nown Rx budesonide 0.5 mg/2 mL suspension 0.5 mg inhalation Q12H BREATHING 01/24/23 Unknown History for nebulization potassium chloride 20 mEq 20 meq PO DAILY 01/24/23 Unknown H istory tablet,extended release(part/cryst) hydrochlorothiazide 25 mg tablet 25 mg PO DAILY #30 tabs 05/25/23 U nknown Rx nitroglycerin 0.4 mg sublingual 0.4 mg sublingual Q5-15M PRN chest 09/17/23 Unknown History tablet pain ranolazine 500 mg tablet,extended 500 mg PO BID #60 tabs 09/17/23 U nknown Rx release,12 hr benralizumab 30 mg/mL subcutaneous 30 mg subcut Q8W #1 mL 09/19/23 Unknown Rx auto-injector (Fasenra Pen) bupropion HCl (smoking deter) 150 150 mg PO BID #60 tabs 11/06/23 U nknown Rx mg tablet,12 hr sustained-release(smoking deterrent) clopidogrel 75 mg tablet 75 mg PO DAILY #90 tabs 11/08/23 (more content not included)... [facility] 07-25-2024 Note Exam Date Time Procedure Performing Provider Status 07/25/24 1:[address] Head or Brain w/o Contrast NIVIA ROMERO MD; Auth (Verified) [id number] ORIGINAL HISTORY: TIA COMPARISON: No TECHNIQUE: Routine [...] Date: 07/25/2024 2:32:39 PM Ordering Provider: JEANNIE [facility]04-30-2025 Note* Exam Date Time Procedure Performing Provider Status 06/18/24 4:[address] Abd/Pelvis w/ IV Contrast Only LEVON PASCUAL MD; Auth (Verified) [id number] ORIGINAL EXAMINATION: CT OF THE ABDOMEN AND [...] 06/18/2024 6:15:42 PM Ordering Provider: JEANNIE HERNANDEZ [facility]10-30-2024 Note ORIGINAL EXAMINATION: TWO XRAY VIEWS [...] Sign Date: 12/19/2023 5:22:25 PM Ordering Provider: [facility]10-17-2024 NoteDischarge Instructions Discharge Summary [address] [address] [id number] 11/30/2023 Patient: DONTAE PARRA Sex: Male : 1975 Age: 48y Thank you for visiting [facility]. You have been evaluated today by Mumtaz Holley D.O. for the following condition(s): Principal Diagnosis Acute traumatic thoracic back pain. Fall from tree. 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 You have been evaluated today by Mumtaz Holley D.O. for the following condition(s): 1 of 2 Discharge Instructions Principal Diagnosis Acute traumatic thoracic back pain. Fall from tree. [address] [place], [place] 4638210-12-2024 Nurse Note* Maurilio Johnston RN - 12/01/2023 2:34 PM EDT Pt discharging at this time. All belongings collected. Discharge packet reviewed with all questionsanswered. [id number] Nurse Note* Maurilio Johnston RN - 12/01/2023 2:34 PM EDT Pt discharging at this time. All belongings collected. Discharge packet reviewed with all questionsanswered. documented in this [facility]10-12-2024 Note Attestation with edits by Julio Cesar [...] a 48 y.o. male that presented to [facility] on 12/01/2023 and was admitted for pain control after a fall Patient reportedly fell ~ 15 feet while putting up a tree stand. Fall was mechanical in nature with no concern for syncopal event. Unclear if patient lost consciousness on impact, states he was just very out of it afterwards. Was noted at [facility] to have possible aortic aneurysm vs trauma so was transferred to [facility] for further management. EKG, CT head, and C spine were unremarkable. CTA chest performed at [facility] did not show any evidence of aortic [...] Your Medications These medications were sent to [facility]/pharmacy #[id number] - [place], [place] - [address] [address] FROM [address] [address] Hours: 24-hours cyclobenzaprine 5 MG tablet oxyCODONE [...] at Followup Visit: Symptom resolution Abrasion healing [facility]10-12-2024 Emergency department Note* Jaz Ayoub RN - 12/01/2023 9:52 AM EDT Patient ambulatory to bathroom with steady gait Jaz Ayoub RN 12/01/23 0952 [id number] Emergency department Note* Jaz Ayoub RN - [...] Jaz Ayoub RN 12/01/23 0742 * Missy Jnoes DO - 12/01/2023 2:48 AM EDT EMERGENCY DEPARTMENT ENCOUNTER Pt Name: Dontae Parra Birthdate 1975 Date of evaluation: 12/01/2023 ED Provider: Missy Jones DO CHIEF COMPLAINT Chief Complaint Patient presents with Abdominal Injury Transfer from [place] for trauma consult. Fall from tree stand 15-17 feet. 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) Emphysema of lung ([facility]) 2010 Erectile dysfunction GERD (gastroesophageal reflux disease) History of echocardiogram 10/20/2015 EF 50%, trivial MR History of percutaneous coronary intervention 02/11/2016 RICHY - prox RCA, RICHY - mid RCA, patent ramus stent, EF 50-55% Hyperlipidemia Hypertension Hypotestosteronism Presence of stent in coronary artery Restless leg STEMI (ST elevation myocardial infarction) (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 Chronic conditions impacting care: none [...] initial encounter DISPOSITION Admit PATIENT REFERRED TO: [facility] Trauma - [address] [facility] [address] Schedule an appointment as soon as possible for a visit As needed Dylan Magallon [address] [facility] [address] [facility] [phone] Schedule an appointment as soon as possible for a visit Tiim Valderrama MD [address] [facility] [address] Follow up in 2 week(s) Hospital [...] Jones DO (electronically signed) Emergency Medicine Provider iMssy Jones DO Resident 12/01/23 0731 * Cabrera Thomas DO - 12/01/2023 2:48 AM EDT Emergency Department Encounter [facility] Patient: Dontae Parra : [...] DO [employer] Cabrera Thomas DO 12/01/23 2240 documented in this [facility]10-12-2024 Emergency department Note* Jaz Ayoub RN - 12/01/2023 8:34 AM EDT Provider at bedside for constanzaal Jaz Ayoub RN 12/01/23 0834 [id number] Emergency department Note* Jaz Ayoub RN - 12/01/2023 8:04 AM EDT Patient sat up eating breakfast at this time, provided with extra juice per request, family at bedside, denies current needs at this time, call bernal within reach, care is ongoing Jaz Ayoub RN 12/01/23 0805 [id number] Emergency department Note* Jaz Ayoub RN - 12/01/2023 7:[address] Jones at bedside Jaz Ayoub RN 12/01/23 0742 [address]Viiqwe01-99-0198 History and physical note* Tonya Perkins DO - 12/01/2023 7:20 AM EDT Internal [...] (2015), HTN, COPD/emphysema, HLD that presented to [facility] on 12/01/2023 from outside facility ([facility]) Patient reportedly fell from tree stand to the ground, about 15-17 feet. Unclear how fall happened,but came to consciousness on the ground and had landed on his back and hit the R side of his head. Son and found him and felt he seemed concussed on scene. CT with no acute intracranial process.Underwent CT chest at [place] which showed possible aortic aneurysm vs trauma and was transferred to [facility] for further workup In ED, CTA performed which does not show any aortic arch aneurysm. Labs at [facility] include CBC andCMP, both of which are [...] artery disease) COPD (chronic obstructive pulmonary disease) ([facility]) Emphysema of lung ([facility]) 2010 Erectile dysfunction GERD (gastroesophageal reflux disease) History of echocardiogram 10/20/2015 EF 50%, trivial MR History of percutaneous coronary intervention 02/11/2016 RICHY - prox RCA, RICHY - mid RCA, patent ramus stent, EF 50-55% Hyperlipidemia Hypertension Hypotestosteronism Presence of stent in coronary artery Restless leg STEMI (ST elevation myocardial infarction) ([facility]) 09/2015 posterior wall Tobacco use disorder Past [...] - CT head + C spine at [place] clear - CTA at [facility] with no evidence of aortic aneurysm that was seen on CT chest at [place] -EKG without acute changes from [facility] - Continue to monitor mental status, avoid [...] RUBIA vs CKD - creatinine 1.4 at [place], unknown baseline - Last creatinine in our [...] Medications were sent to nearby open pharmacy. [facility] [id number] Note Attestation with edits by Julio Cesar [...] (2015), HTN, COPD/emphysema, HLD that presented to [facility] on 12/01/2023 from outside facility ([facility]) Patient reportedly fell from tree stand to the ground, about 15-17 feet. Unclear how fall happened, but came to consciousness on the ground and had landed on his back and hit the R side of his head. Son and found him and felt he seemed concussed on scene. CT with no acute intracranial process. Underwent CT chest at [place] which showed possible aortic aneurysm vs trauma and was transferred to [facility] for further workup In ED, CTA performed which does not show any aortic arch aneurysm. Labs at [place] include CBC and CMP, both of which [...] and son and celestina (more content not included)...[facility]10-12-2024 History and physical note* Tonya Perkins, DO - 12/01/2023 7:20 AM EDT Internal Medicine: Med Team Initial History and Physical Dontae Parra : 1975(48 y.o.) Date: December 01, 2023 TEAM: B Attending: Dr. Alaniz Subjective: Chief Complaint: fall from tree stand HPI Dontae Parra is a 48 y.o. male with PMH CAD with hx of STEMI with PCI with RICHY in proximal RCA and mid RCA (2015), HTN, COPD/emphysema, HLD that presented to [facility] on 12/01/2023 from outside facility ([facility]) Patient reportedly fell from tree stand to the ground, about 15-17 feet. Unclear how fall happened,but came to consciousness on the ground and had landed on his back and hit the R side of his head. Son and found him and felt he seemed concussed on scene. CT with no acute intracranial process.Underwent CT chest at [place] which showed possible aortic aneurysm vs trauma and was transferred to [facility] for further workup In ED, CTA performed which does not show any aortic arch aneurysm. Labs at [place] include CBC andCMP, both of which are [...] time, both and son at bedside. Mr. Prara is slightly sleepy (received IV muscle relaxer) [...] artery disease) COPD (chronic obstructive pulmonary disease) ([facility]) Emphysema of lung ([facility]) 2010 Erectile dysfunction GERD (gastroesophageal reflux disease) History of echocardiogram 10/20/2015 EF 50%, trivial MR History of percutaneous coronary intervention 02/11/2016 RICHY - prox RCA, RICHY - mid RCA, patent ramus stent, EF 50-55% Hyperlipidemia Hypertension Hypotestosteronism Presence of stent in coronary artery Restless leg STEMI (ST elevation myocardial infarction) ([facility]) 09/2015 posterior wall Tobacco use disorder Past [...] - CT head + C spine at [place] clear - CTA at [facility] with no evidence of aortic aneurysm that was seen on CT chest at [place] -EKG without acute changes from [facility] - Continue to monitor mental status, avoid [...] RUBIA vs CKD - creatinine 1.4 at [place], unknown baseline - Last creatinine in our [...] to nearby open pharmacy. documented in this [facility]10-12-2024 Hospital Discharge instructions* Discharge Instructions* Baldo Gastelum [...] doctors * Discharge Instr - Other Orders* LYNETTE López CNP - 12/01/2023 6:29 AM EDT Behavioral Health [...] the following behavioral health agencies for support: [facility] [address] [facility] [address], [facility] [address] [facility] [address] [facility] [address], [facility] [phone] [address], [facility] [phone] Should you be out of the [facility] area, you can use this resource to locate local mental health agencies: Findtreatment[employer]gov Victim Assistance Program- provides resources and support to victims of violent crimes, offers victim advocates for those involved in legal proceedings 489-489-9924 Should you need immediate help in coping with symptoms or should you feel at risk of harming yourself or others, please use the following crisis resources: Crisis Hotline: 988 Crisis Text Helpine: Text 9DUCD to 749730 Call 911 or go to your nearest emergency department * Discharge Instr - DANTE* Maurilio Johnston RN - 12/01/2023 2:10 PM EDT * Attachments The following attachments cannot be sent through Care Everywhere. * Concussion Discharge Instructions, Adult (Greek) documented in this [facility]10-12-2024 Consult note* Jimbo Calvillo MD - 12/01/2023 5:40 AM EDTAssociated Order(s): IP CONSULT TO ORTHOPAEDIC SURGERY Images from the original note were not included. Ortho Spine Consult Patient: Dontae Parra Date of : 1975 Acct: [id number] PCP: Dylan Magallon Date of Admission: 12/01/2023 [...] artery disease) COPD (chronic obstructive pulmonary disease) (HCC) Emphysema of lung ([facility]) 2010 Erectile dysfunction GERD (gastroesophageal reflux disease) History of echocardiogram 10/20/2015 EF 50%, trivial MR History of percutaneous coronary intervention 02/11/2016 RICHY - prox RCA, RICHY - mid RCA, patent ramus stent, EF 50-55% Hyperlipidemia Hypertension Hypotestosteronism Presence of stent in coronary artery Restless leg STEMI (ST elevation myocardial infarction) ([facility]) 09/2015 posterior wall Tobacco use disorder Past [...] last72 hours. No lab exists for component: ROLY No results for input(s): INR in the [...] -Orthopaedic surgery will sign off. Please page stoner hand orthopaedic resident for questions or concerns. Baldo Gastelum MD PGY-2 Orthopedic Surgery 12/01/2023 7:14 AM Jimbo Calvillo MD Orthopaedic Surgery, PGY-3 12/01/2023 7:21 AM [employer] Phone: 1(380) 882-260310-12-2024 Consult note* Jimbo Calvillo MD - 12/01/2023 5:40 AM EDTAssociated Order(s): IP CONSULT TO ORTHOPAEDIC SURGERY Images from the original note were not included. Ortho Spine Consult Patient: Dontae Parra Date of : 1975 Acct: [id number] PCP: Dylan Magallon Date of Admission: 12/01/2023 [...] artery disease) COPD (chronic obstructive pulmonary disease) ([facility]) Emphysema of lung ([facility]) 2010 Erectile dysfunction GERD (gastroesophageal reflux disease) History of echocardiogram 10/20/2015 EF 50%, trivial MR History of percutaneous coronary intervention 02/11/2016 RICHY - prox RCA, RICHY - mid RCA, patent ramus stent, EF 50-55% Hyperlipidemia Hypertension Hypotestosteronism Presence of stent in coronary artery Restless leg STEMI (ST elevation myocardial infarction) ([facility]) 09/2015 posterior wall Tobacco use disorder Past [...] -Orthopaedic surgery will sign off. Please page stoner hand orthopaedic resident for questions or concerns. Baldo Gastelum MD PGY-2 Orthopedic Surgery 12/01/2023 7:14 AM Jimbo Calvillo MD Orthopaedic Surgery, PGY-3 12/01/2023 7:21 AM documented in this [facility]10-12-2024 Physician Emergency department Note* Missy Jones DO - 12/01/2023 2:48 AM EDT EMERGENCY DEPARTMENT ENCOUNTER Pt Name: Dontae Parra Birthdate 1975 Date of evaluation: 12/01/2023 ED Provider: Missy Jones DO CHIEF COMPLAINT Chief Complaint Patient presents with Abdominal Injury Transfer from [place] for trauma consult. Fall from tree stand 15-17 feet. 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) Emphysema of lung ([facility]) 2010 Erectile dysfunction GERD (gastroesophageal reflux disease) History of echocardiogram 10/20/2015 EF 50%, trivial MR History of percutaneous coronary intervention 02/11/2016 RICHY - prox RCA, RICHY - mid RCA, patent ramus stent, EF 50-55% Hyperlipidemia Hypertension Hypotestosteronism Presence of stent in coronary artery Restless leg STEMI (ST elevation myocardial infarction) (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 Chronic conditions impacting care: none [...] initial encounter DISPOSITION Admit PATIENT REFERRED TO: [facility] Trauma - [place] [address] [facility] [address] Schedule an appointment as soon as possible for a visit As needed Dylan Magallon [address] [facility] [address] [place] [phone] Schedule an appointment as soon as possible for a visit Timi Valderrama MD [address] [facility] [address] [facility] [address] Follow up in 2 week(s) Hospital [...] Provider Missy Jones DO Resident 12/01/23 0731 [employer] Phone: 1(913) 133-873510-12-2024 Physician Emergency department Note* Cabrera Thomas DO [...] DO [employer] Cabrera Thomas DO 12/01/23 4498 [facility] Phone: 1(327) 668-264303-07-2024 Procedure [facility] 10-17-2022 Hospital Discharge instructions Patient Education 10/17/2022 [...] medicines you take. This includes prescription and gxmp-uin-kesmoih medicines, vitamins, and herbs. Ask if any [...] Open wound with redness, swelling, or pus [phone] [employer]. [address] [place] [address]. All rights reserved. This information is not intended as a substitute for professional medical care. Always follow yourhealthcare professional's instructions. Follow Up Care 10/17/2022 20:03:40 With:Go to emergency room if symptoms worsen Address:Unknown When:2-4 days With:DANILO ALVARADO MD Address: [address] [place] [address]- When:2-4 days [facility] [facility] 08[facility]23 Emergency department Discharge summary Discharge Instructions Thank you for allowing [facility] to assist you with your healthcare needs. [...] Reason: Injury to arm, Mon-Fri 8am-4:30pm: Call [phone] at 7:30am to schedule a same day appointment for testing. Please be aware there may be a short wait time. Post Acute Orders No qualifying data available. You Need to Schedule the Following Appointments Follow Up with Go to emergency room if symptoms worsen When Within 2-4 days Follow Up with DANILO ALVARADO MD When Within 2-4 days Where: [address] [place] [address]- Allergies No Known Medication Allergies Medications Please [...] medicines you take. This includes prescription and fxvj-ywt-khoqhjd medicines, vitamins, and herbs. Ask if any [...] Open wound with redness, swelling, or pus [id number] [employer]. [address] [place] [address], [place] [address]. All rights reserved. This information is not intended as a substitute for professional medical care. Always follow yourhealthcare professional's instructions. Additional Information VACCINATE! IT SAVES LIVES! Members of the community who have not yet received the COVID-19 vaccine and would like to receive it can visit one of [facility] vaccine clinics. There are many vaccine clinic locations within the [facility]. For locations and available times, please visit www.gettheshot.coronavirus.[place].gov/. It is important to note that some COVID mobile vaccine clinics are held outdoors and may be canceled in rainy or stormy conditions. To learn more about pediatric vaccinations (ages 5-11), we invite you to visit the [facility] webpage. https://www.[facility].org/pages/3143-Vhnzy-Xyhmuinftsp-Uisyauuwja-Gocey-Wsn stions.htmlTo learn more about the COVID-19 vaccine, we invite you to visit the CDC website for a list of frequently asked questions. https://www.cdc.gov/coronavirus/2019-ncov/vaccines/faq.html [facility] Patient Portal Access Instructions: Stay connected with your healthcare team and access your personal medical information anytime with the [facility] Patient Portal. If you would like a full copy of your medical records please contact the [facility] Medical Records Department Sunday through Sunday between 8a.m. and 4:30p.m. Please follow the directions below to access the portal: 1.Access the email account you provided upon registration to the hospital.2.Look for an invitation email from [facility].3.Open the email and access the invitation link: Accept Invitation to [facility]4.Fill in the required cosme to create your account. Sign into www.BigTent [employer] with your username and password that you [...] you will allow to register on the [email or web address] Patient Portal for access to your information. You can also access the [facility] Patient Portal on the [employer] susie. Simply click on Health Records under CyberX and then click on the SeoPult logo. HOW TO SAFELY DISPOSE OF PRESCRIPTION [...] Call your local pharmacy or go to http://CompBlue.Stylistpick/2Q0Fo1p to find one close to you.3.Make use of household items: Use cat litter or old coffee grounds to dispose medications if other options arenot available. Mix your drugs with these household products, seal them in an airtight container andthrow it into the garbage. Call [facility]: [phone] to be sure your drugs can be [...] aware that I should contact my doctor. 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 This information is not intended to replace [...] until you are awake and alert. Take igkg-hhg-zgiahzb and prescription medicines only as told by [...] 11/26/2013 Document Revised: 01/18/2018 Document Reviewed: 05/27/2016 [employer] Patient Education 2020 [employer]. Follow Up Care 01/27/2022 13:32:16 With:ELDA HUNTER MD Address: [address] [place] [address]- When:03/27/2022 15:30:00 Comments:THIS APPOINTMENT WILL BE WITH DR. GARAY [facility] 12-14-2022 Summary of episode note Discharge Instructions Thank you for allowing [facility] to assist you with your healthcare needs. The following is importantdischarge information regarding your hospital visit. Your Care Team DANILO ALVARADO MD What to do next Scheduled Follow-Up Appointments Appointment Type When Where Contact InformationCV OV 03/27/2022 03:30 PM EST [facility] Follow Up Appointments Follow Up with ELDA HUNTER MD When 03/27/2022 03:30 PM EST Why: THIS APPOINTMENT WILL BE WITH DR. GARAY Where: [address] [place] [address]- The Following Activity and Diet Have Been Ordered for You Discharge Activity - Ordered -- Lifting Restricted less than 10 pounds, Follow the post-operative/post-procedure activity instructions provided by your physician's office., 02/01/22 17:07:00 EST Discharge Diet - Ordered -- Follow the post-operative/post-procedure diet instructions provided by your physician's office.,12/14/22 17:07:00 EST Allergies No Known Medication Allergies [...] Once a day Refills: 11 Pickup at [facility] 1937 Unchanged albuterol (albuterol Continuous Inhalation Soln) [...] by mouth Once a day Pharmacy Information [facility] 1937: [address] [place], [place] [id number] [phone] Please take this list to your next [...] may report side effects to FDA at 2-055-FGU-2010. What other drugs will affect clopidogrel? Sometimes it is not safe to use certain medications at the same time. Some drugs can affect your blood levels of other drugs you take, which may increase side effects or make the medications less effective. Tell your doctor about all your other medicines, especially: a stomach acid computer compositor such as omeprazole, Nexium, or Prilosec; an antidepressant such as citalopram, fluoxetine, sertraline, Cymbalta, Effexor, Lexapro, Pristiq, or Prozac; rifampin; a blood thinner--warfarin, Coumadin, Jantoven; or NSAIDs (nonsteroidal anti-inflammatory drugs)--aspirin, ibuprofen (Advil, Motrin), naproxen (Aleve), celecoxib, diclofenac, indomethacin, meloxicam, and others. This list is not complete. Other drugs may affect clopidogrel, including prescription and wmbk-jcs-amspluz medicines, vitamins, and herbal products. Not all [...] to ensure that the information provided by [facility]. ('[employer]') is accurate, up-to-date, and complete, but no guarantee is made to that effect. Drug information contained herein may be time sensitive. [employer]Share information has been compiled for use by healthcare practitioners and consumers in the [place] and therefore [employer]Share does not warrant that uses outside of the [place] are appropriate, unless specifically indicated otherwise. [employer] drug information does not endorse drugs, diagnose patients or recommend therapy. [employer] drug information isan informational resource designed to [...] effective or appropriate for any given patient. [employer] does not assume any responsibility for any aspect of healthcare administered with the aid of information MarketShare provides. The information contained herein is not intended to cover all possible uses, directions, precautions, warnings, drug interactions, allergic reactions, or adverse effects. If you have questions about the drugs you are taking, check with your doctor, nurse or pharmacist. Copyright 6572-4755 [facility]. Version: 18.. Revision Date: 05/19/2020. Education Materials HEART CATHETERIZATION/PCI [...] need to report the following to your scientist/engineer: Any draining or oozing from the site [...] 02/05/2006 Document Revised: 01/22/2013 Document Reviewed: 02/06/2014 [facility] Patient Information 2015 [employer]. This information is not intended to replace [...] until you are awake and alert. Take zcfb-qqa-hsoevhq and prescription medicines only as told by [...] 11/26/2013 Document Revised: 01/18/2018 Document Reviewed: 05/27/2016 Whooch Patient Education 2020 [employer]. Additional Information VACCINATE! IT SAVES LIVES! Members of the community who have not yet received the COVID-19 vaccine and would like to receive it can visit one of [facility] vaccine clinics. There are many vaccine clinic locations within the [facility]. For locations and available times, please visit https://gettheshot.coronavirus.[place].gov/. It is important to note that some COVID mobile vaccine clinics are held outdoors and may be canceled in rainy or stormy conditions. To learn more about pediatric vaccinations (ages 5-11), we invite you to visit the [facility] webpage. https://www.[facility].org/pages/1025-Hlvbz-Thkrelbkglz-Xwvsproqxe-Kaqim-Cur stions.htmlTo learn more about the COVID-19 vaccine, we invite you to visit the [employer] website for a list of frequently asked questions. https://[employer].Vaimicom/assets/Fzuvwhcw-lem-Wpxyidap/nwdct-Pmbvbqe-Ogctyonkcs _Asked-Questions.pdf [facility] Patient Portal Access Instructions: Stay connected with your healthcare team and access your personal medical information anytime with the [facility] Patient Portal.If you would like a full copy of your medical records, please contact the [facility] Medical Records Department, Sunday through Sunday between 8a.m. and 4:30p.m. Please follow the directions below to access the portal: 1.Access the email account you provided upon registration to the [facility].2.Look for an invitation email from [facility].3.Open the email and access the invitation link: Accept Invitation to [facility]4.Fill in the required cosme to create your account. Sign into www.BigTent Design with your username and password that you [...] you will allow to register on the [facility] Patient Portal for access to your information. You can also access the [facility] Patient Portal on the [employer] susie. Simply click on Health Records under SMS Assistta and then click on the [facility] logo. [...] Call your local pharmacy or go to http://bit.ly/3O4Ji4k to find one close to you.3.Make use of household items: Use cat litter or old coffee grounds to dispose medications if other options arenot available. Mix your drugs with these household products, seal them in an airtight container andthrow it into the garbage. Call [facility]: [phone] to be sure your drugs can be [...] aware that I should contact my doctor. 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: Date/Time: Relationship to Patient: Witness Name/Signature: Date/Time: [id number] Evaluation + Plan noteExtracted from: Title:History and [...] Appointments Appointment Date:03/27/2022 03:30:00 PM [facility]uled [facility] Type[facility] Future Scheduled Tests Laboratory* Lipid Profile 12/28/21 Radiology* NM Myocardial Spect Rest/Stress 12/28/21 [facility] 12-14-2022 History and physical note Date of Service 02/01/22 Chief Complaint CP History of Present Illness Patient is a 46 year old male with history of CAD, tobacco use coming in for follow up He was 24 years old, he states he had [place] presenting as chest heaviness and had PCI (likely LAD stent)in [place]. He then had another NSTEMI described as burning sensation in 2015 and had PCI of ramus in September and presented with angina in Jan, same year and had PCI of proximal RCA His last cath was in 07/2016 in [facility] for chest pain. He had [...] He was last seen in ED in [place] last month for chest pain. EKG showed [...] Problem List/Past Medical History Ongoing CAD in chick[place]om[place] ind[place] tribe artery Hypertension Noncompliance with medications Historical No [...] NETTIE BARNEY MD on 02/01/2022 08:15 AM [id number] History and physical note Date of Service 02/01/22 Chief Complaint CP History of Present Illness Patient is a 46 year old male with history of CAD, tobacco use coming in for follow up He was 24 years old, he states he had [place] presenting as chest heaviness and had PCI (likely LAD stent)in [place]. He then had another NSTEMI described as burning sensation in 2015 and had PCI of ramus in September and presented with angina in Jan, same year and had PCI of proximal RCA His last cath was in 07/2016 in [facility] for chest pain. He had [...] smoke 2 PPD. He established care with [facility] in December 2019 and was ordered for [...] He was last seen in ED in [place] last month for chest pain. EKG showed [...] rash Psychiatric: Mood is normal Lab Results 12/14 06:02 WBC: 10.2 Hgb: 14.4 Hct: 41.4 [...] Problem List/Past Medical History Ongoing CAD in [place]om[place] ind[place] tribe artery Hypertension Noncompliance with medications Historical No [...] NETTIE BARNEY MD on 02/01/2022 08:15 AM [facility] [id number] Evaluation note* Diagnosis Onset Date Resolution Status Chest pain chronic Dyspnea on exertion chronic Essential hypertension chron ic Hyperlipidemia chronic Presence of stent in coronary artery January, chronic COPD (chronic obstructive pulmonary disease) chronic Nicotine dependence, cigarettes, uncomplicated chronic [facility] Work Phone: [phone] 335-480111-09-2022 Evaluation + Plan note Future Scheduled Tests Laboratory* Lipid Profile 12/28/21 Radiology* NM Myocardial Spect Rest/Stress 12/28/21 [facility] 07-14-2022 Miscellaneous Notes* Telephone Encounter - Nadine Craig - 09/01/2021 4:35 PM EDT Patient notified * Telephone Encounter - Sabra Chapman MA - 09/01/2021 4:23 PM EDT Attempted to call patient but there was no answer. Left a message on Primordialil requesting a return call. Sabra Chapman MA [...] the Covid test. He will be in [place]. Is there anything else he can do or should he be rescheduled? Please advise, thanks. Sabra Chapman MA * Telephone Encounter - Sabra Chapman MA - 09/01/2021 9:39 AM EDT Patient scheduled for Bronch on 09/06/2021 at 7:30 am. He has his Covid test on 09/03/2021 at 8:20 am at [facility] lab. Faxed orders. Left message for patient to call back. Can I get this Covid order signed? Thanks. Sabra Chapman MA documented in this [place]Centerville07-14-2022 Miscellaneous Notes* [facility]01/[facility]21 3:36 PM EDT Smoking Cessation Navigation Outcome of contact: Left Message Comments: A voicemail has been left for this patient regarding Tobacco Cessation support options. If this patient has any further questions they can email us at [email or web address] or call us at [phone]. [facility] Cardiology Technologist/Smoking Cessation Navigator: Shanel Reynolds [facility] documented in this encounterCenterville07-13-2022 NoteHNO ID: [id number] Author: Yony Frias DO Service: ? Author Type: Physician Type: Progress Notes Filed: 08/31/2021 12:51 PM Note Text: [facility] Department of Pulmonary AND Sleep [...] pain - COPD (chronic obstructive pulmonary disease) (HCC) - Coronary arteriosclerosis NON -CRITICAL DISEASE - Depression - Dyspnea - Erectile dysfunction c/o - GERD (gastroesophageal reflux disease) - Heart attack (HCC) - Hyperlipidemia - Neuropathy - Pneumonia, viral - Restless legs - Stroke (cerebrum) (HCC) PAST SURGICAL HISTORY Procedure Laterality Date - [...] Negative. Musculoskeletal: Negative. Sk (more content not included)...[facility]07-13-2022 Instructions* Patient Instructions* Sabra Chapman MA - 08/31/2021 12:39 PM EDT Please hold you aspirin starting today (August 31, 2021). Will call with date and time of Lung scope (Bronchoscopy), will make follow up at this time. documented in this encounterCenterville07-13-2022 History of Present illness Narrative* Yony Frias DO - 08/31/2021 12:00 PM EDT [facility] Department of Pulmonary & Sleep [...] ICD10: R06.02 5. Coronary artery disease involving chickahom[place] indian tribe coronary artery of chick[place]ominy indian tribe heart without angina pectoris- ICD9: 414.01, ICD10: [...] MA. Yony Frias DO documented in this encounterCentervilleDiscooley [facility] summary Author Jose R Schmitz [facility] January 24, 2023 3:53am Note Date/Time January 24, 2023 2 :43am [facility] Medical Records Department [address] [place] [address] Emergency Department Summary 01/24/23 MR#: [id number] Acct: [id number] Name: DONTAE PARRA Rep #:[id number] : 1975 47 From: Jose R Schmitz [...] secondary to this comes in for evaluation [facility] Medical History Abdominal distension (gaseous) Anxiety Asthma Atherosclerosis of coronary artery of chickahominy indian tribe heart without angina pectoris CAD (coronary artery [...] Last Taken Unknown] carvedilol phosphate 20 mg capsule,ext.ruegvlw79la multiphase 20 mg PO DAILY 06/15/22 [History [...] % (Auto) 66.4 Lymph % (Auto) 23.9 [place] % (Auto) 6.8 Eos % (Auto) 2.0 [...] your Primary Care Provider. Call [facility] ([phone]) or report to the closest Emergency Room. Call 911 if necessary. 01/24/23 0353 <Electronically signed by Jose R Schmitz DO> Cosigner Signature (if applicable): CC: DANILO ALVARADO ~ Signed [facility] Work Phone: Evaluation + Plan note Future Appointments Appointment Date:03/19/2024 07:00:00 AM Scheduled Provider:JEANNIE HERNANDEZ Location:[facility] Appointment Type:PC OV Future Scheduled Tests Laboratory* Lipid Profile 03/14/24 * Lipid Profile 09/20/23 * Albumin/Creatinine Ratio, Random Urine 09/12/23 * Complete Metabolic Panel 03/14/24 * Complete Metabolic Panel 09/20/23 [facility] Evaluation + Plan note Future Appointments Appointment Date:09/17/2024 09:00:00 AM Scheduled Provider:JEANNIE HERNANDEZ APRNApplitoolsVAUGHN Location:[email or web address] Appointment Type:PC OV Future Scheduled Tests Laboratory* Magnesium Level 09/16/24 * Testosterone Level Total 09/16/24 * Lipid Profile 03/14/24 * Lipid Profile 09/20/23 * Lipid Profile 09/16/24 * Albumin/Creatinine Ratio, Random Urine 09/12/23 * Albumin/Creatinine Ratio, Random Urine 09/16/24 * Complete Metabolic Panel 03/14/24 * Complete Metabolic Panel 09/20/23 * Complete Metabolic Panel 09/16/24 [facility] Evaluation + Plan note Future Appointments Appointment Date:09/17/2024 09:00:00 AM Scheduled Provider:JEANNIE HERNANDEZ APRNBestcake Location:[email or web address] Appointment Type: OV Future Scheduled Tests Laboratory* Magnesium Level 09/16/24 * Testosterone Level Total 09/16/24 * Complete Blood Count 12/18/24 * Lipid Profile 03/14/24 * Lipid Profile 09/20/23 * Lipid Profile 09/16/24 * Albumin/Creatinine Ratio, Random Urine 09/12/23 * Albumin/Creatinine Ratio, Random Urine 09/16/24 * Complete Metabolic Panel 03/14/24 * Complete Metabolic Panel 09/20/23 * Complete Metabolic Panel 09/16/24 [facility] Evaluation + Plan note Future Appointments Appointment Date:09/17/2024 09:00:00 AM Scheduled Provider:JEANNIE HERNANDEZ APRNApplitoolsVAUGHN Location:[email or web address] Appointment Type:PC OV Future Scheduled Tests [...] Panel 09/16/24 * COVID/FLU/RSV PCR Screen 07/28/24 [facility] Evaluation + Plan note Future Appointments Appointment Date:03/18/2025 08:30:00 AM Scheduled Provider:JEANNIE HERNANDEZ Location:[facility] Appointment Type: OV Future Scheduled Tests Laboratory* TSH with Reflex to FT4 10/29/24 * Throat Culture 07/28/24 * Lipid Profile 03/14/24 * Albumin/Creatinine Ratio, Random Urine 09/16/24 * Vitamin D Level 10/29/24 * Complete Metabolic Panel 03/14/24 * COVID/FLU/RSV PCR Screen 07/28/24 [facility] Evaluation note* Diagnosis Hemoptysis- Primary Hemoptysis, unspecified Tobacco use current Chronic obstructive pulmonary disease, unspecified COPD type (HCC) SOB (shortness of breath) on exertion Shortness of breath Coronary artery disease involving chick[place]om[place] indian tribe coronary artery of chick[place]om[place]ian tribe heart without angina pectoris History of 2019 novel coronavirus disease (COVID-19) documented in this encounter [place] note* Diagnosis Onset Date Resolution Status Hemoptysis acute Nicotine addiction acute Primary snoring acute Atherosclerosis of coronary artery of chick[place]om[place] indian tribe heart without angina pectoris chronic COPD (chronic obstructive pulmonary disease) chronic Hemoptysis acute Nicotine addiction acute Primary snoring acute COPD (chronic obstructive pulmonary disease) [facility] Work Phone: Evaluation note* Diagnosis Onset Date Resolution Status Hemoptysis acute Nicotine addiction acute Primary snoring acute Atherosclerosis of coronary artery of chick[place]ian tribe heart without angina pectoris chronic COPD (chronic obstructive pulmonary disease) chronic Hemoptysis acute Nicotine addiction acute Primary snoring acute COPD (chronic obstructive pulmonary disease) chronic Anxiety chronic CAD (coronary artery disease) chronic COPD (chronic obstructive pulmonary disease) chronic Essential hypertension chron ic Hyperlipidemia chronic Nicotine dependence chronic Presence of stent in coronary artery January, [facility] Work Phone: Evaluation note* Diagnosis Onset Date Resolution Status Primary snoring acute Atherosclerosis of coronary artery of chick[place] tribe heart without angina pectoris chronic COPD (chronic [...] Chronic cough chronic Hemoptysis chronic Nicotine addiction [facility] Work Phone: Evaluation note* Diagnosis Onset [...] Presence of stent in coronary artery January, [facility] Work Phone: Evaluation note* Diagnosis Onset [...] disease) chronic Nicotine dependence, cigarettes, uncomplicated chronic [facility] Work Phone: Evaluation note* Diagnosis Fall, initial encounter- Primary Fall, initial encounter Concussion Unspecified concussion Back pain Unspecified backache [facility] Narrative No data available for this section [facility] Hospital Discharge instructions Additional Instructions Your workup today showed no sign of heart damage and no sign of blood clot. It did document lung changes consistent with COPD but no pneumonia or hole in your lung. Continue all of your medication as directed by your doctor and return to the ER should you have any [facility] Work Phone: Hospital Discharge instructions No data available for this section [facility] Note* SYSTEM: SIGN SYSTEM: SIGN, MODIFY SYSTEM: MODIFY, SIGN SYSTEM: SIGN, MODIFY SYSTEM: MODIFY, VERIFY Event Display: Cardiac Catheterization -CV Authored Date: [id number] [facility] Progress note No data available for this section [facility] Reason for referral (narrative)* Outpatient Procedure (Routine) - Pending Review Specialty Diagnoses / Procedures Referred By Sully lopez Referred To [facility] Diagnoses SOB (shortness of breath) on exertion Procedures SPIROMETRY BASELINE ONLY SPMTRY W/VC EXPIRATORY ZACKARY W/WO MXML VOL VNTJ Yony Frias, [address] [address] [facility] [place] [address] [place] [address] Referral ID Status Reason Start Date Expiration Date Visits Requested Visits Authorized [id number] Pending Review Auto-Generat ed Referral 08/31/2021 09/30/2022 1 1 * Outpatient Procedure (Routine) - Pending Review Specialty Diagnoses / Procedures Referred By Sully lopez Referred To Contact [facility] Diagnoses Hemoptysis Procedures BRONCHOSCOPY BRNCHSC INCL FLUOR GDNCE DX W/CELL WASHG SPX Yony Frias, [address] [address] [facility] [address] [place] [address] Referral ID Status Reason Start Date Expiration Date Visits Requested Visits Authorized [id number] Pending Review Auto-Generat ed Referral 08/31/2021 09/30/2022 1 1 [place] Summary Purpose Family History No Family History [...] July 10, 2022 1 1:29am Power of Pharmacy Ancillary No July 10, 2022 11:29am Advance Directive Response Recorded Date/ Time Advance Directives No September 25, 2 023 6:35am Living Will No January 24 2:02am Power of Pharmacy Ancillary No January 24, 2023 2:02am Advance Directive Response Recorded Date/ Time Advance Directives No September 25, 2 023 7:35am Living Will No January 24 3:02am Power of Pharmacy Ancillary No January 24, 2023 3:02am Documents on File Type Date 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 Documentation 10/19/2015 Date Activated Date Inactivated Comments 12/01/2023 9:01 AM 12/01/2023 4:57 PM Chief Complaint and Reason for Visit Chief Complaint COPD Amb Documentation COPD COPD 1 W FU Reason for Visit Hemoptysis Nicotine addiction Primary snoring Atherosclerosis of coronary artery of [place] heart without angina pectoris COPD (chronic obstructive pulmonary disease) Hemoptysis Nicotine addiction Primary snoring COPD (chronic obstructive pulmonary disease) Chief Complaint COPD Amb Documentation COPD COPD 1 W FU Hypersomnia, unspecified [place],STENTS (SELF REF) Reason for Visit Hemoptysis Nicotine addiction Primary snoring Atherosclerosis of coronary artery of [place] heart without angina pectoris COPD (chronic obstructive pulmonary disease) Hemoptysis Nicotine addiction Primary snoring COPD (chronic obstructive pulmonary disease) Anxiety CAD (coronary artery disease) COPD (chronic obstructive pulmonary disease) Essential hypertension Hyperlipidemia Nicotine dependence Presence of stent in coronary artery Chief Complaint COPD Amb Documentation COPD COPD 1 W FU Hypersomnia, unspecified [place],STENTS (SELF REF) COPD COPD/HEMOPTYSIS Reason for Visit Hemoptysis Nicotine addiction Primary snoring Atherosclerosis of coronary artery of [place] heart without angina pectoris COPD (chronic obstructive pulmonary disease) Hemoptysis Nicotine addiction Primary snoring COPD (chronic obstructive pulmonary disease) Anxiety CAD (coronary artery disease) COPD (chronic obstructive pulmonary disease) Essential hypertension Hyperlipidemia Nicotine dependence Presence of stent in coronary artery Chief Complaint COPD Amb Documentation COPD COPD 1 W FU Hypersomnia, unspecified [place],STENTS (SELF REF) COPD COPD/HEMOPTYSIS nv DHARMESH; AUTO CPAP *DEVICE TAGGED INT LABS HEART DISEASE HEART DISEASE Reason for Visit Hemoptysis Nicotine addiction Primary snoring Atherosclerosis of coronary artery of [place] heart without angina pectoris COPD (chronic obstructive pulmonary disease) Hemoptysis Nicotine addiction Primary snoring COPD (chronic obstructive pulmonary disease) Anxiety CAD (coronary artery disease) COPD (chronic obstructive pulmonary disease) Essential hypertension Hyperlipidemia Nicotine dependence Presence of stent in coronary artery Chief Complaint COPD Amb Documentation COPD COPD 1 W FU Hypersomnia, unspecified [place],STENTS (SELF REF) COPD COPD/HEMOPTYSIS nv DHARMESH; AUTO CPAP *DEVICE TAGGED INT LABS HEART DISEASE HEART DISEASE COPD COPD Reason for Visit Hemoptysis Nicotine addiction Primary snoring Atherosclerosis of coronary artery of [place] heart without angina pectoris COPD (chronic obstructive pulmonary disease) Hemoptysis Nicotine addiction Primary snoring COPD (chronic obstructive pulmonary disease) Anxiety CAD (coronary artery disease) COPD (chronic obstructive pulmonary disease) Essential hypertension Hyperlipidemia Nicotine dependence Presence of stent in coronary artery Chief Complaint COPD Amb Documentation COPD COPD 1 W FU Hypersomnia, unspecified [place],STENTS (SELF REF) COPD COPD/HEMOPTYSIS nv DHARMESH; AUTO CPAP *DEVICE TAGGED INT LABS HEART DISEASE HEART DISEASE COPD COPD 3 M FU Reason for Visit Primary snoring Atherosclerosis of coronary artery of [place] heart without angina pectoris COPD (chronic obstructive [...] arm 2 M FU Chest tightness, HTN LAlexey MELENDEZ cp Reason for Visit Chronic cough Left arm pain Anxiety CAD (coronary artery disease) COPD (chronic obstructive pulmonary disease) Essential hypertension Hyperlipidemia Nicotine dependence Presence of stent in coronary artery Chronic cough COPD (chronic obstructive pulmonary disease) Chest pain Dyspnea on exertion Essential hypertension Hyperlipidemia Presence of stent in coronary artery Chief Complaint 2 M FU Chest tightness, HTN Christopher MELENDEZ cp 4 wk fu per [facility] [...] section and content) DATE CREATED AUTHOR 08/14/2017 [facility] DATE CREATED AUTHOR AUTHOR'S ORGANIZ ATION 08/15/2017 [facility] DATE CREATED AUTHOR AUTHOR'S ORGANIZ ATION 05/13/2021 [facility] DATE CREATED AUTHOR AUTHOR'S ORGANIZ ATION 09/07/2021 [facility] DATE CREATED AUTHOR AUTHOR'S ORGANIZ ATION 03/26/2022 [facility] DATE CREATED AUTHOR AUTHOR'S ORGANIZ ATION 10/18/[address] [facility] ([facility]) DATE CREATED AUTHOR AUTHOR'S ORGANIZ ATION 12/09/2023 [facility] DATE CREATED AUTHOR AUTHOR'S ORGANIZ ATION 01/13/2024 [facility] [employer] [facility] DATE CREATED AUTHOR AUTHOR'S ORGANIZ ATION 11/02/2024 [facility] DATE CREATED AUTHOR AUTHOR'S ORGANIZ ATION 11/03/2024 [facility] Source Comments (unrecognize d section and content) In the event this informatio n is protected by the Federal Confidentiality of Alcohol and Drug Abuse Patient Records regulations: The Federal rules restrict any use of the information to criminally investigate or prosecute any alcohol or drug abuse patient.[place] the event this information is protected by the Federal Confidentiality of Alcohol and Drug Abuse Patient Records regulations: The Federal rules restrict any use of the information to criminally investigate or prosecute any alcohol or drug abuse patient.[place] the event this information is protected by the Federal Confidentiality of Alcohol and Drug Abuse Patient Records regulations: The Federal rules restrict any use of the information to criminally investigate or prosecute any alcohol or drug abuse patient.[place] the event this information is protected by the Federal Confidentiality of Alcohol and Drug Abuse Patient Records regulations: The Federal rules restrict any use of the information to criminally investigate or prosecute any alcohol or drug abuse patient.[place] Reason for Visit (unrecogniz ed section and content) Reason Comments New Patient Reason Comments Smoking Cessation Reason Comments Procedure Reason Comments Abdominal Injury Transfer from [facility] for trauma consult. Fall from tree stand 15-17 feet. 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 Julio Cesar Alaniz MD [address] [address] [address] [place] [address] Referral ID Status Reason Start Date Expiration Date Visits Re quested Visits Authorized [id number] 1 1 Care Teams (unrecognized sec tion and content) Team Status: Active Member Role Status Dates DANILO ALVARADO Primary Care Provider Active Team Status: Inactive Member Role Status Dates Dr. Jonh Boyd MD Attending Provider Active Team Status: Inactive Member Role Status Dates Dr. Bria Olsen MD Attending Provider Active Dr. Makr Alvarado MD Primary Care Provider, Referring Provider [...] Inactive Member Role Status Dates Dr. Yanet Ndiaye MD Attending Provider, Emergency Provider Active SUNDEEP SANDOVAL Primary Care Provider Active Team Status: Inactive Member Role Status Dates SUNDEEP SANDOVAL Primary Care Provider Active Dr. Bria Olsen MD Attending Provider, Referring Pr ovider Active Certified Master Safecracker Relationship Specialty Start Date End Date Danilo Alvarado [address] [address] PCP - General Family Practice 08/31/21 Certified Master Safecracker Relationship Specialty Start Date End Date Xiomara Alvaradort Harleen [address] [address] PCP - General Family Practice 08/31/21 Certified Master Safecracker Relationship Specialty Start Date End Date Danilo Alvarado DO [address] [place] [address] PCP - General Family Practice 08/31/21 Certified Master Safecracker Relationship Specialty Start Date End Date Danilo Alvarado DO [address] [place] [address] PCP - General Family Practice 08/31/21 Team Status: Active Member Role Status Dates Dr. Mark Alvarado MD Primary Care Provider Active Team Status: Active Member Role Status Dates Dr. Mark Alvarado MD Primary Care Provider Active Dr. Jonh Boyd MD Attending Provider, Referring Provider Active Team Status: Active Member Role Status Dates Dr. Jonh Boyd MD Referring Provider, Other Pro vider Active CHRISTIANO SANDOVAL Primary Care Provider Active Dr. Bahman Alvarado DO Attending Provider Active Team Status: Inactive Member Role Status Dates Dr. Jonh Boyd MD Attending Provider, Referring Provider Active DANILOCHRISTIANO BOSE Primary Care Provider Active Team Status: Inactive Member Role Status Dates Dr. Mark Alvarado MD Referring Provider Active Dr. Jonh Boyd MD Attending Provider Active CHRISTIANO SANDOVAL Primary Care Provider Active Team Status: Inactive Member Role Status Dates Dr. Bria Olsen MD Attending Provider Active CHRISTIANO SANDOVAL Primary Care Provider Active Team Status: Inactive Member Role Status Dates Frances Fuchs BIOLOGICAL TECHNICAL OFFICER, BIOLOGICAL TECHNICAL OFFICER-C Attending Provider Active Team Status: Inactive Member Role Status Dates Frances Fucsh BIOLOGICAL TECHNICAL OFFICER, BIOLOGICAL TECHNICAL OFFICER-C Attending Provider Active Dr. Tim Alvarado DO Primary Care Provider, Referr ing Provider Active Team Status: Inactive Member Role Status Dates Dr. Bria Olsen MD Attending Provider Active Team Status: Active Member Role Status Dates Dr. Estevan Dixon MD Attending Provider Active Dr. Bria Olsen MD Referring Provider Active Team Status: Inactive Member Role Status Dates Out of Town Doctor Primary Care Provider, Referring Pr ovider Active Elda Villegas BIOLOGICAL TECHNICAL OFFICER, BIOLOGICAL TECHNICAL OFFICER-C Attending Provider Active Team Status: Inactive Member Role Status Dates Frances Fuchs BIOLOGICAL TECHNICAL OFFICER, BIOLOGICAL TECHNICAL OFFICER-C Attending Provider, Referrin g Provider Active CHRISTIANO SANDOVAL Primary Care Provider Active Team Status: Inactive Member Role Status Dates Dr. Bria Olsen MD Attending Provider, Referring Pr ovider Active Team Status: Active Member Role Status Dates Elda Villegas BIOLOGICAL TECHNICAL OFFICER, BIOLOGICAL TECHNICAL OFFICER-C Attending Provider, Referring Pro vider Active CHRISTIANO SANDOVAL Primary Care Provider Active Team Status: Inactive Member Role Status Dates Dr. Jose R Schmitz DO Emergency Provider Active CHRISTIANO SANDOVAL Primary Care Provider Active Team Status: Inactive Member Role Status Dates Elda Villegas BIOLOGICAL TECHNICAL OFFICER, BIOLOGICAL TECHNICAL OFFICER-C Attending Provider, Referring Pro vider Active CHRISTIANO SANDOVAL Primary Care Provider Active Team Status: Inactive Member Role Status Dates Out of [facility] Doctor Referring Provider Active Dr. Bahman Alvarado DO Attending Provider Active Team Status: Inactive Member Role Status Dates Out [facility] Doctor Referring Provider Active Elda Villegas BIOLOGICAL TECHNICAL OFFICER, BIOLOGICAL TECHNICAL OFFICER-C Attending Provider Active CHRISTIANO SANDOVAL Primary Care [...] Provide r, Attending Provider, Referring Provider Active Certified Master Safecracker Relationship Specialty Start Date End Date Dylan Magallon [address] [facility] [address] [place] [address] PCP - General 04/18/16 Care Team (unrecognized sect ion and content) Care Team Personnel Name: DANILO ALVARADO MD Member Role: Primary Care Physician Address: Address: [address] [place] [address]- Care Team Related Persons Name: KO CHOWDHURY [...] 0.5 mL 0.5 mL, IntraMUSCular, Once, On 12/01/24 at 0900, For 1 dose Lidocaine 4 [...] and incidence of candidiasis. Do not swallow. 904 (Not Given - Pr ovider: Jaz Ayoub [...] at bedtime and replaced in the morning. 904 (Not Given - Pr ovider: Maurilio Johnston [...] 0435 (Given - Provid er: Heydi Vallejo, Algology Teacher) melatonin tablet 3 mg 3 mg, Oral, Nightly PRN, sleep, Starting on 12/01/23 at 0901 naloxone (Narcan) injection 0.4 mg 0.4 mg, IntraVENous, Every 5 min PRN, opioid reversal, respiratory depression, Starting on 12/01/23 at 0907, +++ For RR <10, pinpoint pupils, over sedation for opioid reversal - MUST notify stoner hand provider immediately after first dose, may give [...] BE BASED ON THE PRIMARY CLINICAL RECORDS. [employer] [facility]. provides no warranty or guarantee of the accuracy or completeness of information in this document.
== END | disposition home or self-care (01) ==
LOC: MRI 16:59
PROVIDERS: PCP Nurse Practitioner Family; Referring Provider Student in an Organized Health Care Education/Training Program; Visit Provider Student in an Organized Health Care Education/Training Program
DX: G95.9 Disease of spinal cord, unspecified (principal)
CPT/HCPCS: 72141

== ENCOUNTER 2024-12-15 06:38 | Day surgery (SDC) | payer OTHER, SELFPAY ==
--- NOTE | 2024-12-12 15:46 | PAT.ANESEVAL ---
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 When Was Last Pacemaker Check QUESTION #4 FULL TEXT: You/Your Family Experience fever (hyperthermia) with Anesthesia Last Oral Intake Last Oral intake: Last Oral Intake NPO since Meds taken in AM with sips of water? Meds patient instructed to take am of surgery PONV PONV - distribution engineer: PONV - distribution engineer Female No 12/12/24 09:50 HX of Motion Sickness No 12/12/24 09:50 HX of N/V After Surgery No 12/12/24 09:50 Non-Smoker No 12/12/24 09:50 Duration of Surgery greater No 12/12/24 09:50 than 60 minutes Number of Risk Factors PONV Score Height & Weight Height & Weight: Anesthesia: Height & Weight Height 6 ft 10/31/24 05:43 Respiratory Assessment Respiratory Assessment - distribution engineer: Respiratory Tract Infection Hx - distribution engineer Hx Respiratory Tract Infection No 12/12/24 09:50 STOP Sleep Apnea STOP Sleep Apnea - distribution engineer: STOP Sleep Apnea - distribution engineer Hx Hypertension Yes: CONTROLLED WITH MED 12/12/24 09:50 Hx Sleep Apnea Yes 12/12/24 09:50 CPAP Yes: NONCOMPLIANT/O2 3L AT 12/12/24 09:50 NIGHT BIPAP No 12/12/24 09:50 Do you snore loudly (louder No 12/12/24 09:50 than talking or can be heard Do you often feel tired/ No 12/12/24 09:50 fatigued/ sleepy during daytime? Has anyone observed you stop No 12/12/24 09:50 breathing during sleep? STOP Results Positive 12/12/24 09:50 QUESTION #5 FULL TEXT : Do you snore loudly (louder than talking or can be heard through closed doors)? Tobacco Use History Tobacco Use History - distribution engineer: Tobacco Use History - distribution engineer Tobacco Use Smoking Status Current some day smoker 12/12/24 09:50 Hx Tobacco Use Yes 12/12/24 09:50 Years Smoking Packs Smoked per Day Smoking Cessation Date was within the last 15 years Hx Smoking Cessation Date Hx Smoking Cessation No 12/12/24 09:50 Counseling Hematologic Medial History Hematologic Hx - distribution engineer: Hematologic Medical Hx - product assurance engineer Hx of Blood Transfusion No 12/12/24 09:50 Hx of Transfusion in last 3 No 12/12/24 09:50 Months Date of Last Transfusion (if within last 3 months) Ever experience any problems No 12/12/24 09:50 with transfusion(s)? Specify any problems Hx of Preganancy in last 3 N/A 12/12/24 09:50 Months Nurse Filling Out Transfusion DSCHRIBER 12/12/24 09:50 & Questions: Date: 12/12/24 12/12/24 09:50 Time: 09:51 12/12/24 09:50 Patient unable to answer at this time (ie. confused, unrespo /Reproduction History /Reproductive History - distribution engineer: /Reproductive Hx- distribution engineer Hx Now No 12/12/24 09:50 Gestational Age (in weeks): EDC: Hx Hx Para Hx Section SAB No 12/12/24 09:50 PFSH Medical History (Updated 12/12/24 @ 09:56 by Kourtney Mckeon) History of echocardiogram Wears dentures Wears glasses Arthritis High cholesterol Injury of head and neck Injury of back History of IBS Gastric reflux Smoker CPAP (continuous positive airway pressure) dependence On home oxygen therapy Emphysema, unspecified Shortness of breath on exertion Cardiology follow-up encounter History of stress test History of irregular heartbeat RLQ abdominal pain GI bleed Chronic cough Family history of ischemic heart disease and other diseases of the circulatory system Presence of stent in coronary artery (~02/01/22) Old myocardial infarction Nicotine addiction Abdominal distension (gaseous) Unspecified systolic (congestive) heart failure Atherosclerosis of coronary artery of [place] heart without angina pectoris Noncompliance with medications Essential hypertension COPD (chronic obstructive pulmonary disease) Asthma CAD (coronary artery disease) Home Medications Medication Instructions Recorded Last Taken Type albuterol sulfate 2.5 mg/3 mL 2.5 mg inhalation Q4H PRN 05/22/22 Unknown History (0.083 %) solution for nebulization shortness of breath or wheezing aspirin 81 mg tablet,delayed 81 mg PO DAILY 05/22/22 12/10/24 History release magnesium oxide 250 mg PO DAILY 05/22/22 Unknown History omeprazole 40 mg capsule,delayed 40 mg PO DAILY 05/22/22 Unknown History release carvedilol phosphate 20 mg 20 mg PO DAILY 06/15/22 Unknown History capsule,[id number] multiphase potassium chloride 20 mEq 20 meq PO DAILY 01/24/23 Unknown History tablet,extended release(part/cryst) hydrochlorothiazide 25 mg tablet 25 mg PO DAILY #30 tabs 05/25/23 Unknown Rx nitroglycerin 0.4 mg sublingual 0.4 mg sublingual Q5-15M PRN chest 09/17/23 Unknown History tablet pain ranolazine 500 mg tablet,extended 500 mg PO BID #60 tabs 09/17/23 Unknown Rx release,12 hr bupropion HCl (smoking deter) 150 150 mg PO BID #60 tabs 11/06/23 Unknown Rx mg tablet,12 hr sustained-release(smoking deterrent) clopidogrel 75 mg tablet 75 mg PO DAILY #90 tabs 11/08/23 12/10/24 Rx prazosin 1 mg capsule 1 mg PO QHS #30 caps 04/22/24 Unknown Rx albuterol sulfate 90 mcg/actuation 2 puff inhalation Q4H PRN 09/05/24 Unknown Rx aerosol inhaler shortness of breath or wheezing #8.5 grams budesonide 0.5 mg/2 mL suspension 0.5 mg (2 mL) inhalation Q12H 09/05/24 Unknown Rx for nebulization BREATHING #60 mL fluticasone furoate 200 1 inh inhalation Q24H #30 ea 09/05/24 Unknown Rx mcg/actuation blister powder for inhalation (Arnuity Ellipta) ipratropium 0.5 mg-albuterol 3 mg 3 ml inhalation Q6H BREATHING #180 09/05/24 Unknown Rx (2.5 mg base)/3 mL nebulization mL soln mepolizumab 100 mg/mL subcutaneous 100 mg subcut Q4W #1 mL 09/05/24 Unknown Rx auto-injector (Nucala) montelukast 10 mg tablet 10 mg PO QPM #90 tabs 09/05/24 Unknown Rx umeclidinium 62.5 mcg-vilanterol 1 inh inhalation Q24H #60 ea 09/05/24 Unknown Rx 25 mcg/actuation powdr for inhalation (Anoro Ellipta) rosuvastatin 40 mg tablet 40 mg PO QDAY 10/08/24 Unknown History Allergy/AdvReac Type Severity Reaction Status Date / Time isosorbide Allergy Severe Severe Verified 12/12/24 09:47 headaches amlodipine AdvReac Intermediate Severe Verified 12/12/24 09:47 headache Family History Mother Cancer Ovarian Grandmother Cancer breast cancer. Heart disease Myocardial infarction Grandfather Cancer Lung Fibromyalgia Father Cancer Surgical History (Updated 12/12/24 @ 09:56 by Kourtney Mckeon) H/O colonoscopy History of cardiac catheterization History of left heart catheterization (LHC) (~09/25/22) Presence of coronary angioplasty implant and graft (~02/01/22) H/O inguinal hernia repair H/O arthroscopic knee surgery H/O hand surgery Social History Smoking Status: Current some day smoker tobacco type: cigarettes quit status: has quit before alcohol intake: never substance use type: does not use caffeine: Yes Type: coffee Number of servings: 3 Audit: Pertinent Findings Pertinent Findings EKG Perinent findings: January 24, 2023. Normal sinus rhythm. Stress test pertinent findings: 03/03/2024. EF of 59%. Uniform uptake in the rest and stress nuclear imaging. Echo (EF%) pertinent findings: 07/18/2022. EF of 55%. No aortic stenosis noted. Heart catheterization pertinent findings: 09/25/2022. Known CAD with previously stented LAD ramus intermedius and RCA. Patent stents. No high-grade stenosis noted. Preserved EF of 60%. Recommend medical therapy. Consult pertinent findings: 09/25/2024. Nelly RUDDC. 1. Dyspnea on exertion-patient feels this is baseline. Follow-up with pulmonology. Patient continues to smoke. 2. Chest pain-last cath in September 2022 showed patent stents and preserved ejection fraction. Last stress March 15 negative for ischemia. Patient declines further assessment with cardiac cath at this time. 3. Coronary artery stents-RICHY in the proximal RCA and mid distal RCA. RICHY to the proximal ramus. Patent as of cath 2022. Continue meds Plavix carvedilol and Crestor. 4. [id number] Recommendation Anesthesia Recommendation Anesthesia recommendation: OPTIMIZED for anesthesia
[2024-12-15] VITALS (8 sets, daily range): BP systolic 98–120; BP diastolic 67–77; PULSE 77–90; RESP 14–16; TEMP 36.1–36.3; O2SAT 93–98; BMI 29.8
--- OUTSIDE RECORDS SUMMARY | 2024-12-15 06:44 | XMS RPT_ITS | CCD ---
Author Organization [facility] Care Team Providers Care Talent Scout Name Role Phone Sherita, Dylan Unavailable Unavailable Sherita, Dylan Unavailable Unavailable Prashant Flores Unavailable Unavailable Sherita, Dylan Unavailable Unavailable Sherita, Dylan Unavailable Unavailable Bowen, Nile Unavailable Unavailable NELLY, MERLY Unavailable Unavailable Sherita, Dylan Unavailable Unavailable Sherita, Dylan Unavailable Unavailable NO REFERRING DR Unavailable Unavailable [facility] Unavailable Unavailable UNKNOWN, PROVIDER Unavailable Unavailable Danilo Alvarado DO Primary Care Provider [phone] DR DANILO ALVARADO MD Primary Care Physician Monroe Love Attending Unavailable Dr. Jonh Boyd Attending Provider Justine Vaz Attending Provider Unavailable Dr. Jonh Boyd Referring Provider [phone] Dr. Jonh Boyd Other Provider Dr. Mark Alvarado Primary Care Provider Dr. Bahman Alvarado Attending Provider Dr. Mark Alvarado Referring Provider Dr. Bria Olsen Attending Provider Dr. Bria Olsen Other Provider DANILO ALVARADO Primary Care Provider DANILO ALVARADO Primary Care Provider [phone] DANILO ALVARADO Primary Care Provider Unavailpradip GARAY MD, [place] Attending UnavailDR DANILO Cox MD Primary Care Unavailable JEANNIE GARNETT DO Attending Unavailable DR DANILO ALVARADO MD Primary Care Unavailable ELDA HUNTER MD Attending Unavailable DR DANILO ALVARADO MD Primary Care Unavailable Shila PHOTOGRAPH PRINTER, PHOTOGRAPH PRINTER-C Frances Attending Provider Dr. Bria Olsen Attending Provider Dr. Estevan Dixon Attending Provider Dr. Bria Olsen Referring Provider Dr. Tim Alvarado Primary Care Provider Dr. Tim Alvarado Referring Provider [facility] Doctor, Out of Primary Care Provider [facility] Doctor, Out of Referring Provider Unavailab le Roof PHOTOGRAPH PRINTER, PHOTOGRAPH PRINTER-C Elda Leal Attending Provider Shila PHOTOGRAPH PRINTER, PHOTOGRAPH PRINTER-C Frances Attending Provider Dr. Tim Alvarado Primary Care Provider Dr. Tim Alvarado Referring Provider [facility] Doctor, Out of Primary Care Provider [facility] Doctor, Out of Referring Provider Unavailab le Roof PHOTOGRAPH PRINTER, PHOTOGRAPH PRINTER-C Elda Leal Attending Provider DANILO ALVARADO Primary Care Provider Unavailabl e Dr. Bahman Alvarado Attending Provider Dr. Bahman Alvarado Referring Provider Dr. Bahman Alvarado Other Provider DANILO ALVARADO Primary Care Provider [phone] [facility] Doctor, Out of Referring Provider Unavailab le Roof PHOTOGRAPH PRINTER, PHOTOGRAPH PRINTER-C Elda Leal Attending Provider Dylan Magallon Primary Care Provider MUMTAZ HOLLEY DO Admitting Unavailable DIDMUMTAZ TRUJILLO DO Attending Unavailable MUMTAZ HOLLEY DO Primary Care Unavailable ELPIDIO METER/RELAY CRAFTSMAN-BABBITT SPINNER, JEANNIE Primary Care Physician DYLAN MAGALLON Primary Care Unavailable NONE, PCP Referring Unavailable ACACIA, KAMAL Admitting Unavailable ACACIA, KAMAL Attending Unavailable ELPIDIO METER/RELAY CRAFTSMAN-BABBITT SPINNER, JEANNIE Primary Care Nevaeh HERNANDEZ METER/RELAY CRAFTSMAN-BABBITT SPINNER, JEANNIE Attending Nevaeh WARREN METER/RELAY CRAFTSMAN-BABBITT SPINNER, LAURA Attending Unavai lable ELPIDIO METER/RELAY CRAFTSMAN-BABBITT SPINNER, JEANNIE Primary Care Unavai lable ELPIDIO METER/RELAY CRAFTSMAN-BABBITT SPINNER, JEANNIE Attending Unavai lable ELPIDIO METER/RELAY CRAFTSMAN-BABBITT SPINNER, JEANNIE Primary Care Unavai lable ELPIDIO METER/RELAY CRAFTSMAN-BABBITT SPINNER, JEANNIE Attending Unavai lable ELPIDIO METER/RELAY CRAFTSMAN-BABBITT SPINNER, JEANNIE Primary Care Unavai lable ELPIDIO METER/RELAY CRAFTSMAN-BABBITT SPINNER, JEANNIE Attending Unavai lable ELPIDIO METER/RELAY CRAFTSMAN-BABBITT SPINNER, JEANNIE Primary Care Unavai lable ELPIDIO METER/RELAY CRAFTSMAN-BABBITT SPINNER, JEANNIE Primary Care Unavai lable OSCAR METER/RELAY CRAFTSMAN - BABBITT SPINNER, MICHELLE Almanza Attending U Delores Mccallum Attending Unavailable ELPIDIO, JEANNIE Referring Unavailable ELPIDIO, JEANNIE Primary Care Unavailable Roof PHOTOGRAPH PRINTER, Elda Leal Attending Unavailable ELPIDIO, JEANNIE Referring Unavailable ELPIDIO, JEANNIE Primary Care Unavailable Bria Olsen Attending Unavailable Roof PHOTOGRAPH PRINTER, Elda Leal Consulting Unavailable Roof PHOTOGRAPH PRINTER, Elda Leal Referring Unavailable ELPIDIO, JEANNIE Primary Care Unavailable Friend, Calvin Attending Unavailable FriendCalvin Consulting Unavailable ELPIDIO, JEANNIE Primary Care Unavailable ELPIDIO, JEANNIE Referring Unavailable ELPIDIO, JEANNIE Primary Care Unavailable Macrina Donaldson Attending Unavailable Macrina Donaldson Referring Unavailable Roof PHOTOGRAPH PRINTER, Elda Leal Attending Unavailable ELPIDIO, JEANNIE Primary Care Unavailable ELPIDIO, JEANNIE Referring Unavailable Friend, Calvin Attending Unavailable ELPIDIO, JEANNIE Primary Care Unavailable FriendCalvin Attending Unavailable ELPIDIO, JEANNIE Primary Care Unavailable ELPIDIO, JEANNIE Referring Unavailable Delores Pablo Attending Unavailable Delores Pablo Referring Unavailable ELPIDIO, JEANNIE Primary Care Unavailable ELPIDIO, JEANNIE Referring Unavailable Delores Pablo Attending Unavailable ELPIDIO, JEANNIE Primary Care Unavailable ELPIDIO, JEANNIE Referring Unavailable ELPIDIO, JEANNIE Primary Care Unavailable Macrina Donaldson Attending Unavailable ELPIDIO, JEANNIE Referring Unavailable Roof PHOTOGRAPH PRINTER, Elda Leal Attending Unavailable ELPIDIO, JEANNIE Primary Care Unavailable ELPIDIO, JEANNIE Primary Care Unavailable Elizabeth Azar Attending Unavailable Elizabeth Azar Referring Unavailable Delores Pablo Attending Unavailable Delores Pablo Referring Unavailable ELPIDIO, JEANNIE Primary Care Unavailable Roof PHOTOGRAPH PRINTER, Elda H Referring Unavailable Roof PHOTOGRAPH PRINTER, Elda Leal Attending Unavailable ELPIDIO, JEANNIE Primary Care Unavailable Delores Pablo Referring Unavailable Delores Pablo Attending Unavailable ELPIDIO, JEANNIE Primary Care Unavailable Raina Orozco Attending Unavailable ELPIDIO, JEANNIE Primary Care Unavailable ELPIDIO, JEANNIE Referring Unavailable ELPIDIO, JEANNIE Referring Unavailable ELPIDIO, JEANNIE Primary Care Unavailable Jenna Munroe Attending Unavailable ELPIDIO, JEANNIE Referring Unavailable RufenDelores simms Attending Unavailable ELPIDIO, JEANNIE Primary Care Unavailable RufenerDelores Attending Unavailable ELPIDIO, JEANNIE Primary Care Unavailable ELPIDIO, JEANNIE Referring Unavailable RufenDelores simms Attending Unavailable ELPIDIO, JEANNIE Primary Care Unavailable ELPIDIO, JEANNIE Referring Unavailable ELPIDIO, JEANNIE Primary Care Unavailable Alba Bernal Attending Unavailable ELPIDIO, JEANNIE Primary Care Unavailable Frances Fuchs NP Attending Unavailable ELPIDIO, JEANNIE Referring Unavailable Alba Bernal Attending Unavailable ELPIDIO, JEANNIE Primary Care Unavailable Bria Olsen Attending Unavailable Roof PHOTOGRAPH PRINTER, Elda Leal Referring Unavailable ELPIDIO, JEANNIE Primary Care Unavailable ELPIDIO, JEANNIE Primary Care Unavailable Alba Bernal Attending Unavailable ELPIDIO, JEANNIE Referring Unavailable ELPIDIO, JEANNIE Primary Care Unavailable Shila SZYMANSKI, Frances Attending Unavailable ELPIDIO, JEANNIE Primary Care Unavailable Lynda, [place] Attending Unavailable Allergies Allergy Classification Reported Allergen(s) Allergy Type Date of Onset Reaction(s) Facility (11 sources) amLODIPine Drug Allergy 3 Severe headache [facility] (2 sources) atorvastatin Drug Allergy 7 Other [facility] (2 sources) Isosorbide Drug Allergy 7 Other [facility] (1 source) amLODIPine Drug Allergy 5 [facility] Repository (1 source) Isosorbide Drug Allergy 5 [facility] Repository Medications Current Medications Medication Drug Class(es) Dates Sig (Normalized) Sig (Original) Albuterol (Eqv-ProAir HFA) 90 mcg/inh inhalation aerosol (6 sources) Start: 06-13-2024 take 1 dose by inhalation every four hours as needed for wheezing Albuterol (Eqv-ProAir HFA) 90 mcg/inh inhalation aerosol Dose = 2 puff(s), Inhalation, q4h, PRN as needed for wheezing, # 54 gram(s), 3 Refill(s), Pharmacy: [facility], 181.5, cm, 03/19/24 8:27:00 EST, [...] wheezing, # 54 gram(s), 3 Refill(s), Pharmacy: [facility], 181.5, cm, 03/19/24 8:27:00 EST, [...] wheezing, # 18 gram(s), 1 Refill(s), Pharmacy: [facility], 183, cm, 09/12/23 7:34:00 EDT, Height, kg, 09/12/23 7:34:00 EDT, Dosing Weight Start Date: 09/12/23 Status: Ordered Anoro Ellipta 62.5 mcg-25 mcg/inh inhalation powder (5 sources) Start: 09-17-2024 End: 03-11-2026 take 1 dose by inhalation once daily Anoro Ellipta 62.5 mcg-25 mcg/inh inhalation powder Dose = 1 puff(s), Inhalation, qDay, # 1 EA, 5 Refill(s), Pharmacy: [facility], 182, sam, 09/17/24 9:01:00 EDT, Height, kg, 09/17/24 9:01:00 [...] Daily, # 90 tab(s), 1 Refill(s), Pharmacy: [facility], 182, sam, 09/17/24 9:01:00 EDT, Height, kg, 09/17/24 9:01:00 EDT, Dosing Weight Start Date: 09/17/24 Status: Ordered Medication Dispense Status: Completed Quantity: 90.0 Unit: tab(s) Total Allowed Fills: 2 Fills Dispensed: 0 Start: 11-29-2023 End: 12-01-2023 aspirin 81 mg oral delayed r elease tablet Dose : 81 mg = 1 tab(s), Oral, Daily, # 90 tab(s), 3 Refill(s), Pharmacy: [facility], 183, sam, 09/12/23 7:34:00 EDT, Height, kg, 09/12/23 7:34:00 [...] use, # 10.7 gram(s), 5 Refill(s), Pharmacy: [facility], History of COPD, 183, cm, [...] BID, # 180 tab(s), 1 Refill(s), Pharmacy: [facility], 182, cm, 09/17/24 9:01:00 EDT, Height, [...] BID, # 180 tab(s), 1 Refill(s), Pharmacy: [facility], 181.5, cm, 03/19/24 8:27:00 EST, Height, kg, 03/19/24 8:27:00 EST, Dosing Weight Start Date: 03/19/24 Stop Date: 09/15/24 Status: Ordered Quantity: 180.0 Unit: tab(s) Repeat number: 2 Start: 12-03-2023 End: 01-02-2024 BuPROPion (Eqv-Wellbutrin SR ) 150 mg/12 hours oral tablet, extended release Dose : 150 mg = 1 tab(s), Oral, BID, # 60 tab(s), 0 Refill(s), Pharmacy: [facility], 183, cm, 09/12/23 7:34:00 EDT, [...] qAM, # 90 cap(s), 1 Refill(s), Pharmacy: [facility], 182, cm, 09/17/24 9:01:00 EDT, Height, kg, 09/17/24 9:01:00 EDT, Dosing Weight Start Date: 09/17/24 Stop Date: 03/16/25 Status: Ordered Medication Dispense Status: Completed Quantity: 90.0 Unit: cap(s) Total Allowed Fills: 2 Fills Dispensed: 0 Start: 03-19-2024 End: 09-15-2024 carvedilol 20 mg oral capsul e, extended release Dose : 20 mg = 1 cap(s), Oral, qAM, # 90 cap(s), 1 Refill(s), Pharmacy: [facility], 181.5, cm, 03/19/24 8:27:00 EST, Height, kg, 03/19/24 8:27:00 EST, Dosing Weight Start Date: 03/19/24 Stop Date: 09/15/24 Status: Ordered Quantity: 90.0 Unit: cap(s) Repeat number: 2 Start: 12-03-2023 carvedilol 20 mg oral capsule, extended release Dose : 20 mg = 1 cap(s), Oral, qAM, # 30 cap(s), 0 Refill(s), Pharmacy: [facility], 183, cm, 09/12/23 7:34:00 EDT, [...] qDay, # 90 tab(s), 1 Refill(s), Pharmacy: [facility], 182, cm, 09/17/24 9:01:00 EDT, Height, kg, 09/17/24 9:01:00 EDT, Dosing Weight Start Date: 09/17/24 Stop Date: 03/16/25 Status: Ordered Medication Dispense Status: Completed Quantity: 90.0 Unit: tab(s) Total Allowed Fills: 2 Fills Dispensed: 0 Start: 12-03-2023 Plavix 75 mg o ral tablet Dose : 75 mg = 1 tab(s), Oral, qDay, # 30 tab(s), 11 Refill(s), Pharmacy: [facility], 183, cm, 09/12/23 7:34:00 EDT, [...] 0 Refill(s), 08/04/24 11:57:00 AM EDT, Pharmacy: [facility], COPD with exacerbation Wheezing [...] 0 Refill(s), 08/11/24 11:56:00 AM EDT, Pharmacy: [facility], Acute bronchitis, bacterial Pertussis [...] 0 Refill(s), 12/29/23 4:46:00 PM EST, Pharmacy: [facility], Bronchitis, 181.51, cm, 12/19/23 [...] 0 Refill(s), 08/07/24 11:57:00 AM EDT, Pharmacy: [facility], Cough productive of purulent sputum, 182, cm, [...] 0 Refill(s), 12/29/23 4:47:00 PM EST, Pharmacy: [facility], Bronchitis, 181.51, cm, 12/19/23 15:46:00 EDT, Height, kg, 12/19/23 15:46:00 EDT, Dosing Weight Start Date: 12/19/23 Stop Date: 12/29/23 Status: Ordered 24 hr isosorbide mononitrate 30 mg extended release oral tablet (9 sources) Nitrate Vasodilator Start: 02-18-2024 isosorbide mononitrate 30 mg oral tablet, extended release Dose : 30 mg = 1 tab(s), Oral, qAM, # 90 tab(s), 1 Refill(s), Pharmacy: [facility], 181.51, cm, 12/19/23 15:46:00 EDT, Height, kg, 12/19/23 15:46:00 EDT, Dosing Weight Start Date: 02/18/24 Status: Ordered Quantity: 90.0 Unit: tab(s) Repeat number: 2 Start: 12-03-2023 isosorbide mon onitrate 30 mg oral tablet, extended release Dose : 30 mg = 1 tab(s), Oral, qAM, # 30 tab(s), 0 Refill(s), Pharmacy: [facility], 183, cm, 09/12/23 7:34:00 EDT, [...] 1 Refill(s), 09/15/24 9:32:00 AM EDT, Pharmacy: [facility], 181.5, cm, 03/19/24 8:27:00 EST, [...] qDay, # 90 tab(s), 1 Refill(s), Pharmacy: [facility], 182, cm, 09/17/24 9:01:00 EDT, Height, [...] qDay, # 90 tab(s), 1 Refill(s), Pharmacy: [facility], 183, cm, 09/12/23 7:34:00 [...] cessation, # 1 EA, 3 Refill(s), Pharmacy: [facility], Smokes 1 pack of [...] see Order Comments for use directions, Pharmacy: [facility], Smokes 1 pack of [...] pain, # 25 tab(s), 3 Refill(s), Pharmacy: [facility], 181.5, cm, 03/19/24 8:27:00 EST, Height, kg, 03/19/24 8:27:00 EST, Dosing Weight Start Date: 03/24/24 Status: Ordered Medication Dispense Status: Completed Quantity: 25.0 Unit: tab(s) Total Allowed Fills: 4 Fills Dispensed: 0 Start: 11-29-2023 nitroglycerin 0.4 mg sublingual tablet 0.4 mg Dose = 1 tab(s), Sublingual, q5min, PRN for chest pain, # 25 tab(s), 3 Refill(s), Pharmacy: [facility], 183, cm, 09/12/23 7:34:00 EDT, Height, kg, 09/12/23 7:34:00 EDT, Dosing Weight Start Date: 11/29/23 Status: Ordered Start: 12-28-2021 nitroglycerin 0.4 mg sublingual tablet 0.4 mg Dose = 1 tab(s), Sublingual, q5min, PRN for chest pain, # 450 tab(s), 3 Refill(s), Pharmacy: [facility], 182.9, cm, 12/28/21 16:06:00 [...] qDay, # 90 cap(s), 1 Refill(s), Pharmacy: [facility], 182, cm, 09/17/24 9:01:00 EDT, Height, kg, 09/17/24 9:01:00 EDT, Dosing Weight Start Date: 09/17/24 Stop Date: 03/16/25 Status: Ordered Medication Dispense Status: Completed Quantity: 90.0 Unit: cap(s) Total Allowed Fills: 2 Fills Dispensed: 0 Start: 04-21-2024 omeprazole 40 mg oral delayed release capsule Dose : 40 mg = 1 cap(s), Oral, qDay, # 30 cap(s), 3 Refill(s), Pharmacy: [facility], 181.5, cm, 03/19/24 8:27:00 EST, Height, kg, 03/19/24 8:27:00 EST, Dosing Weight Start Date: 04/21/24 Status: Ordered Quantity: 30.0 Unit: cap(s) Repeat number: 4 Start: 12-03-2023 omeprazole 40 mg oral delayed release capsule Dose : 40 mg = 1 cap(s), Oral, qDay, # 30 cap(s), 0 Refill(s), Pharmacy: [facility], 183, cm, 09/12/23 7:34:00 EDT, Height, kg, 09/12/23 7:34:00 EDT, Dosing Weight Start Date: 12/03/23 Status: Ordered Start: 06-02-2021 take 40 mg by mouth once daily Omeprazole Active 40 MG PO DAILY May 22, 2022 12:00am OMEPRAZOLE (PRIL OSEC ORAL) Take by mouth once daily. 0 Active Comment on above: Take by mouth once d aily. TAKE 1 CAPSULE BY [facility] 30 MINUTES BEFORE MORNING MEAL ONCE [...] qDay, # 90 tab(s), 1 Refill(s), Pharmacy: [facility], 182, cm, 09/17/24 9:01:00 EDT, Height, [...] qDay, # 90 tab(s), 1 Refill(s), Pharmacy: [facility], 181.5, cm, 03/19/24 8:27:00 EST, Height, kg, 03/19/24 8:27:00 EST, Dosing Weight Start Date: 03/19/24 Stop Date: 09/15/24 Status: Ordered Quantity: 90.0 Unit: tab(s) Repeat number: 2 Start: 12-03-2023 Potassium Chlo ride (Zka-Acpi-Bso M20) 20 mEq oral tablet, extended release Dose : 20 mEq = 1 tab(s), Oral, qDay, # 30 tab(s), 0 Refill(s), Pharmacy: [facility], 183, cm, 09/12/23 7:34:00 EDT, [...] qDay, # 90 tab(s), 1 Refill(s), Pharmacy: [facility], 182, cm, 09/17/24 9:01:00 EDT, Height, kg, 09/17/24 9:01:00 EDT, Dosing Weight Start Date: 09/17/24 Status: Ordered Medication Dispense Status: Completed Quantity: 90.0 Unit: tab(s) Total Allowed Fills: 2 Fills Dispensed: 0 Start: 07-25-2024 rosuvastatin 4 0 mg oral tablet Dose : 40 mg = 1 tab(s), Oral, qDay, # 90 tab(s), 0 Refill(s), Pharmacy: [facility], 182, cm, 07/25/24 11:13:00 EDT, Height, kg, 07/25/24 11:13:00 EDT, Dosing Weight Start Date: 07/25/24 Status: Ordered Quantity: 90.0 Unit: tab(s) Repeat number: 1 Start: 03-19-2024 End: 09-15-2024 rosuvastatin 10 mg oral tabl et Dose : 10 mg = 1 tab(s), Oral, qDay, # 90 tab(s), 1 Refill(s), Pharmacy: [facility], 181.5, cm, 03/19/24 8:27:00 EST, Height, kg, 03/19/24 8:27:00 EST, Dosing Weight Start Date: 03/19/24 Stop Date: 09/15/24 Status: Ordered Quantity: 90.0 Unit: tab(s) Repeat number: 2 Start: 05-22-2022 End: 03-10-2024 rosuvastatin 10 mg oral tabl et Dose : 10 mg = 1 tab(s), Oral, qDay, # 90 tab(s), 1 Refill(s), Pharmacy: [facility], 183, cm, 09/12/23 7:34:00 EDT, Height, kg, 09/12/23 7:34:00 EDT, Dosing Weight Start Date: 09/12/23 Stop Date: 03/10/24 Status: Ordered traZODone hydrochloride 50 mg oral tablet (9 sources) Serotonin Reuptake Inhibitor Start: 06-13-2024 traZODone 50 mg oral tablet Dose : 50 mg = 1 tab(s), Oral, qHS, # 30 tab(s), 3 Refill(s), Pharmacy: [facility], 181.5, cm, 03/19/24 8:27:00 EST, Height, kg, 03/19/24 8:27:00 EST, Dosing Weight Start Date: 06/13/24 Status: Ordered Quantity: 30.0 Unit: tab(s) Repeat number: 4 Start: 12-03-2023 traZODone 50 m g oral tablet Dose : 50 mg = 1 tab(s), Oral, qHS, # 30 tab(s), 0 Refill(s), Pharmacy: [facility], 183, cm, 09/12/23 7:34:00 EDT, [...] by mouth every 4 hours as needed. [id number] 200 actuat albuter ol 0.09 mg/actuat metered [...] wheezing, # 540 mL, 1 Refill(s), Pharmacy: [facility], 181.5, cm, 03/19/24 8:27:00 EST, [...] wheezing, # 90 mL, 1 Refill(s), Pharmacy: [facility], 183, cm, 09/12/23 7:34:00 [...] 22, 2023 2:37pm Start: 01-08-2023 End: 01-22-2023 Suodxdyzix-Dlkblgdu-Kldtxqrn ol (Breztri Aerosphere) 160-9-4.8 mcg/actuation HFA aerosol [...] 2023 3:00pm take 1 tablet by rosie twice daily buPROPion SR (Wellbutrin SR) 150 [...] qDay, # 90 tab(s), 1 Refill(s), Pharmacy: [facility], 181.5, cm, 03/19/24 8:27:00 EST, Height, kg, 03/19/24 8:27:00 EST, Dosing Weight Start Date: 03/19/24 Stop Date: 09/15/24 Status: Ordered Medication Dispense Status: Completed Quantity: 90.0 Unit: tab(s) Total Allowed Fills: 2 Fills Dispensed: 0 Start: 12-03-2023 hydroCHLOROthi azide 25 mg oral tablet Dose : 25 mg = 1 tab(s), Oral, qDay, # 30 tab(s), 0 Refill(s), Pharmacy: [facility], 183, cm, 09/12/23 7:34:00 EDT, [...] 12/01/23 at 0907, +++ For RR nystatin [id number] unt/ml oral suspension (11 sources) Polyene Antifungal [...] Start: 12-01-2023 End: 12-01-2023 polyethylene glycol 3350 [id number] mg powder for oral solution (2 sources) [...] ug by inhal ation once daily Tiotropium [place] (Spiriva Respimat) 2.5 mcg/actuation mist Active 2 INH INHALATION daily January 22, 2023 1:00am administer at approximately the same time(s) each day Start: 08-28-2022 End: 10-05-2022 take 1 puff(s) by inhalation once daily Tiotropium [place] (Spiriva Respimat) 2.5 mcg/actuation mist Discontinued 2 PUFF INHALATION DAILY August 28, 2022 12:00am October 05, 2022 8:45am Start: 08-28-2022 End: 10-05-2022 take 1 puff(s) by inhalation once daily Tiotropium [place] (Spiriva Respimat) 2.5 mcg/actuation mist Discontinued 2 PUFF INHALATION DAILY August 27, 2022 11:00pm October 05, 2022 7:45am Start: 08-28-2022 take 1 puff(s) by in halation once daily Tiotropium [place] (Spiriva Respimat) 2.5 mcg/actuation mist Active 2 [...] uncomplicated; Translations: [Severe persistent asthma, uncomplicated] Onset: 7 Chronic Blindness and vision defects (3 sources) Blurring of visual image 07-25-2024 Episodic Chronic kidney disease (5 sources) Chronic kidney disease stage 3A 03-19-2024 Chronic Chronic kidney disease (2 sources) Chronic kidney disease; Translations: [Chronic kidney disease, stage 3a] Onset: 5 Chronic obstructive pulmonary disease and bronchiectasis (20 sources) Chronic obstructive pulmonary disease, unspecified; Translations: [Emphysema, unspecified] Onset: 7 Chronic Congestive heart failure; nonhypertensive (11 sources) Congestive heart failure; Translations: [Unspecified systolic (congestive) heart failure] 05-19-2022 Chronic Coronary atherosclerosis and other heart disease (20 sources) Atherosclerotic heart disease of [place] coronary artery with unspecified angina pectoris; Translations: [Old myocardial infarction] Onset: 6 Chronic Coronary atherosclerosis and other heart disease (20 sources) Coronary angioplasty status; Translations: [Presence of coronary angioplasty implant and graft] Onset: 7 05-24-2022 Episodic Disorders of lipid metabolism (20 [...] 7 12-29-2021 Chronic Fluid and electrolyte disorders (7 sources) Hypokalemia; Translations: [Hypokalemia] Onset: 5 03-19-2024 Episodic Gastroduodenal ulcer (except hemorrhage) (6 sources) H/O: gastric ulcer 06-20-2023 Episodic Gastrointestinal hemorrhage (3 sources) Gastrointestinal hemorrhage, unspecified; Translations: [Melena] Onset: 5 Episodic Headache; including migraine (3 sources) Headache 07-25-2024 Episodic Intracranial injury (4 sources) Concussion injury of body structure; Translations: [Concussion] Onset: 4 12-01-2023 Episodic Malaise and fatigue (7 sources) Fatigue; Translations: [Other fatigue] Onset: 5 03-19-2024 Episodic Mood disorders (11 sources) Depressive [...] sources) Constipation, unspecified; Translations: [Constipation, unspecified] Onset: 5 [...] abnormalities] 05-22-2022 Episodic Other lower respiratory disease (6 sources) [...] Translations: [Disease of spinal cord, unspecified] Onset: 5 Chronic Other nervous system disorders (1 source) Paresthesia; Translations: [Paresthesia of skin] Onset: 3 Episodic Other nutritional; endocrine; and metabolic disorders (6 sources) Body mass index 30+ - obesity 09-12-2023 Chronic Other nutritional; endocrine; and metabolic disorders (6 sources) Hypomagnesemia; Translations: [Hypomagnesemia] Onset: 5 03-19-2024 Chronic Other nutritional; endocrine; and metabolic disorders (1 source) Hypomagnesemia; Translations: [Hypomagnesemia] Onset: 5 Chronic Other screening for suspected conditions (not [...] (8 sources) Backache; Translations: [Dorsalgia, unspecified] Onset: 5 12-01-2023 Episodic Substance-related disorders (20 sources) Nicotine dependence, cigarettes, uncomplicated; Translations: [Nicotine dependence, unspecified, uncomplicated] Onset: 7 05-29-2022 Chronic Unclassified (6 sources) Patient encounter status 09-12-2023 Past or Other Problems Problem Classification Problem Date Documented Date Episodic/Chronic Abdominal pain (3 sources) Right lower quadrant pain; Translations: [RIGHT LOWER QUADRANT MARILEE] Onset: 08-06-2016 Episodic Administrative/social admission (12 sources) Administrative reason for encounter; Translations: [Encounter for other administrative examinations] Onset: 04-11-2024 05-19-2022 Episodic Allergic reactions (2 sources) Allergy status to other drugs, medicaments and biological substances status; Translations: [Allergy status to oth drug/meds/biol subst status] Onset: 11-20-2016 Episodic Nonspecific chest pain (20 sources) Chest pain, unspecified; Translations: [Other chest pain] Onset: 11-20-2016 05-19-2022 Episodic Other aftercare (3 sources) longterm (current) use of aspirin; Translations: [Encounter for change or removal of surgical wound dressing] Onset: 08-06-2016 Episodic Other fractures (1 source) Collapsed vertebra, not elsewhere classified, lumbar region, initial encounter for fracture; Translations: [Collapsed vertebra, not elsewhere classified, lumbar region, initial encounter for fracture] Onset: 06-18-2024 Episodic Other lower respiratory disease (12 sources) Chronic cough; Translations: [Chronic cough] Onset: 09-05-2024 08-28-2022 Episodic Other lower respiratory disease (7 [...] Test Name Value Interpretation Reference Range Facility MR/PAT.SNEHAnixon 12-12-2024 MR/PAT.SNEHA [facility] Medical Records Department [address] [place] [address] PAT - Anesthesia 12/12/24 1546 MR#: [id number] Acct: [id number] Name: DONTAE PARRA Rep #: [id number] : 1975 49 From: Rush Lal MD PCP: JOEL CANTOR Status:PRE [facility] Y Race: C Location: EN Pre-Assessment Diagnosis/Proposed Procedure Planned Operative Procedure(s): EGD Anesthesia History Anesthesia History - active directory administrator: Anesthesia History - active directory administrator Hx Hospitalization No 12/12/24 09:50 Any Problems With Anesthesia No 12/12/24 09:50 Cholinesterase deficiency No 12/12/24 09:50 You/Your Family Experience No 12/12/24 09:50 fever (hyperthermia) with Relationship Recent Exposure to Contagious No 09/04/24 06:04 Disease Does patient have nerve No 12/12/24 09:50 stimulator Patient instructed to have device shut off --Does patient have Pacemaker or ICD? When Was Last Pacemaker Check QUESTION #4 FULL TEXT: You/Your Family Experience fever (hyperthermia) with Anesthesia Last Oral Intake Last Oral intake: Last Oral Intake NPO since Meds taken in AM with sips of water? Meds patient instructed to take am of surgery PONV PONV - active directory administrator: PONV - active directory administrator Female No 12/12/24 09:50 HX of Motion Sickness No 12/12/24 09:50 HX of N/V After Surgery No 12/12/24 09:50 Non-Smoker No 12/12/24 09:50 Duration of Surgery greater No 12/12/24 09:50 than 60 minutes Number of Risk Factors PONV Score Height Weight Height Weight: Anesthesia: Height Weight Height 6 ft 10/31/24 05:43 Respiratory Assessment Respiratory Assessment - active directory administrator: Respiratory Tract Infection Hx - active directory administrator Hx Respiratory Tract Infection No 12/12/24 09:50 STOP Sleep Apnea STOP Sleep Apnea - active directory administrator: STOP Sleep Apnea - active directory administrator Hx Hypertension Yes: CONTROLLED WITH MED 12/12/24 09:50 Hx Sleep Apnea Yes 12/12/24 09:50 CPAP Yes: NONCOMPLIANT/O2 3L AT 12/12/24 09:50 NIGHT BIPAP No 12/12/24 09:50 Do you snore loudly (louder No 12/12/24 09:50 than talking or can be heard Do you often feel tired/ No 12/12/24 09:50 fatigued/ sleepy during daytime? Has anyone observed you stop No 12/12/24 09:50 breathing during sleep? STOP Results Positive 12/12/24 09:50 QUESTION #5 FULL TEXT : Do you snore loudly (louder than talking or can be heard through closed doors)? Tobacco Use History Tobacco Use History - active directory administrator: Tobacco Use History - active directory administrator Tobacco Use Smoking Status Current some day smoker 12/12/24 09:50 Hx Tobacco Use Yes 12/12/24 09:50 Years Smoking Packs Smoked per Day Smoking Cessation Date was within the last 15 years Hx Smoking Cessation Date Hx Smoking Cessation No 12/12/24 09:50 Counseling Hematologic Medial History Hematologic Hx - active directory administrator: Hematologic Medical Hx - documentation lead Hx of Blood Transfusion No 12/12/24 09:50 Hx of Transfusion in last 3 No 12/12/24 09:50 Months Date of Last Transfusion (if within last 3 months) Ever experience any problems No 12/12/24 09:50 with transfusion(s)? Specify any problems Hx of Preganancy in last 3 N/A 12/12/24 09:50 Months Nurse Filling Out Transfusion DSCHRIBER 12/12/24 09:50 Questions: Date: 12/12/24 12/12/24 09:50 Time: 09:51 12/12/24 09:50 Patient unable to answer at this time (ie. confused, unrespo /Reproductio n History /Reproductiv e History - active directory administrator: /Reproductiv e Hx- active directory administrator Hx Now No 12/12/24 09:50 Gestational Age (in weeks): EDC: Hx Hx Para Hx Section SAB No 12/12/24 09:50 [facility] Medical History (Updated 12/12/24 @ 09:56 by Kourtney Mckeon) History of echocardiogram Wears dentures Wears glasses Arthritis High cholesterol Injury of head and neck Injury of back History of IBS Gastric reflux Smoker CPAP (continuous positive airway pressure) dependence On home oxygen therapy Emphysema, unspecified Shortness of breath on exertion Cardiology follow-up encounter History of stress test History of irregular heartbeat RLQ abdominal pain GI bleed Chronic cough Family history of ischemic heart disease and other diseases of the circulatory system Presence of stent in coronary artery ( 02/01/22) Old myocardial infarction Nicotine addiction Abdominal distension (gaseous) Unspecified systolic (congestive) heart failure Atherosclerosis of coronary artery of [place] heart without angina pectoris Noncompliance with medications Essential hypertension COPD (chronic obstructive pul (more content not included)... Normal [facility] Gastroenterology Visit Repor ton 11-18-2024 Gastroenterology Visit Report [facility] Gastroenterology [address] [place] [address] OFFICE VISIT Date of Service: 11/18/24 MR#: [id number] Acct: [id number] Name: DONTAE PARRA Rep #: [id number] : 1975 Provider: BERTO Oquendo Age/Sex: 49/M Location: [facility] Status: Signed Intake Vital Signs 10/31/24 05:43 Height 6 ft Weight: 225 lb BMI 30.5 BP 128/77 H Blood Pressure Location Lt brachial Position Sitting Respiration 18 Pulse 79 Pulse Source Monitor Temp 97.4 F L Pulse Oximetry (%) 95 Oxygen Delivery Method room air Intake Visit Reasons: FU-Constipation Chief Complaint: GERD Parking Control Officer Required: No Accompanied by: Is patient in pain?: No Allergies isosorbide Allergy (Severe, Verified 11/18/24 11:02) Severe headaches amlodipine Adverse Reaction (Intermediate, Verified 11/18/24 11:02) Severe headache Medications ???Medication ???Instructions ???Recorded ???Confirmed ???Type albuterol sulfate 2.5 mg/3 mL 2.5 mg inhalation Q4H PRN 05/22/22 11/18/24 History (0.083 %) solution for nebulization shortness of breath or wheezing aspirin 81 mg tablet,delayed 81 mg PO DAILY 05/22/22 11/18/24 H istory release magnesium oxide 250 mg PO DAILY 05/22/22 11/18/24 History omeprazole 40 mg capsule,delayed 40 mg PO DAILY 05/22/22 11/18/24 H istory release carvedilol phosphate 20 mg 20 mg PO DAILY 06/15/22 11/18/24 H istory capsule,ext. hr multiphase potassium chloride 20 mEq 20 meq PO DAILY 01/24/23 11/18/24 History tablet,extended release(part/cryst) hydrochlorothiazide 25 mg tablet 25 mg PO DAILY #30 tabs 05/25/23 0 11/18/24 Rx nitroglycerin 0.4 mg sublingual 0.4 mg sublingual Q5-15M PRN chest 09/17/23 11/18/24 History tablet pain ranolazine 500 mg tablet,extended 500 mg PO BID #60 tabs 09/17/23 0 11/18/24 Rx release,12 hr bupropion HCl (smoking deter) 150 150 mg PO BID #60 tabs 11/06/23 0 11/18/24 Rx mg tablet,12 hr sustained-release(smo usha deterrent) clopidogrel 75 mg tablet 75 mg PO DAILY #90 tabs 11/08/23 0 11/18/24 Rx prazosin 1 mg capsule 1 mg PO QHS #30 caps 04/22/2410/22 Rx albuterol sulfate 90 mcg/actuation 2 puff inhalation Q4H PRN 11/18/24 Rx aerosol inhaler shortness of breath or wheezing #8.5 grams budesonide 0.5 mg/2 mL suspension 0.5 mg (2 mL) inhalation Q12H 11/18/24 Rx for nebulization BREATHING #60 mL fluticasone furoate 200 1 inh inhalation Q24H #30 ea 09/0511/18/24 Rx mcg/actuation blister powder for inhalation (Arnuity Ellipta) ipratropium 0.5 mg-albuterol 3 mg 3 ml inhalation Q6H BREATHING #18 0 09/05/24 11/18/24 Rx (2.5 mg base)/3 mL nebulization mL soln mepolizumab 100 mg/mL subcutaneous 100 mg subcut Q4W #1 mL 09/05/24 11/18/24 Rx auto-injector (Nucala) montelukast 10 mg tablet 10 mg PO QPM #90 tabs 09/05/24 Rx umeclidinium 62.5 mcg-vilanterol 1 inh inhalation Q24H #60 ea 09/0511/18/24 Rx 25 mcg/actuation powdr for inhalation (Anoro Ellipta) rosuvastatin 40 mg tablet 40 mg PO QDAY 10/08/24 11/18/24 Hi story PFSH Medical History Wears dentures Wears glasses Arthritis [...] failure Hyperlipidemia Atherosclerosis of coronary artery of [place] heart without angina pectoris Chest pain Noncompliance with medications Essential hypertension Stroke Pneumonia GERD (gastroesophageal reflux disease) COPD (chronic obstructive pulmonary disease) Depression Anxiety Asthma Emphysema, unspecified CAD (coronary artery disease) Encounter for 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) Surgical History H/O colonoscopy History of cardiac catheterization History of left heart catheterization (LHC) ( 09/25/22) Presence of coronary angioplasty implant and graft ( 02/01/22) H/O inguinal hernia repair H/O arthroscopic knee surgery H/O hand surgery Family (more content not included)... Normal [facility] Spine Cervical (Routine)on 0 11-04-2024 Spine Cervical (Routine) [facility] Imaging Services [address] [place], [place] [id number] Spine Cervical (Routine) MR#: [id number] Acct: [id number] Name: DONTAE PARRA Rep #: [id number] : 1975 M 49 From: Manjinder Valdovinos MD PCP: JOEL CANTOR Status: REG CLI Study: Spine Cervical (Routine) Date of Exam: Exam# [id number] Ordering Dr: Macrina Donaldson PROCEDURE: SPINE CERVICAL (ROUTINE) 11/04/2024 REASON FOR EXAM: WORSENING DEXTERITY X3 MONTHS TECHNIQUE: Procedure Code: MRISP Modality: MR Procedure: SPINE CERVICAL (ROUTINE) Multiplanar and multisequence images were obtained without IV contrast administration. COMPARISON: Cervical spine x-ray 11/30/2023. FINDINGS: Vertebrae: Cervical vertebral body heights are preserved. Bone marrow signal is unremarkable. Alignment: Normal. No spondylolisthesis. Spinal Cord: Cervical spinal cord is of normal size and signal intensities. Structures at the foramen magnum are unremarkable. C2-3: Facet joints arthropathy. A 2 mm disc osteophyte complex. No foraminal or canal stenosis. C3-4: Disc osteophyte complex. Facet joint arthropathy. Left uncovertebral hypertrophy. Severe left and mild right foramina stenosis. No significant canal stenosis. C4-5: Disc osteophyte complex. Uncovertebral hypertrophy. Moderate bilateral foramina stenosis. Mild canal stenosis. C5-6: Disc osteophyte complex. Uncovertebral hypertrophy. Facet joint arthropathy. Mild bilateral foramina stenosis. Moderate canal stenosis. C6-7: No significant foraminal or canal stenosis. A 2 mm disc osteophyte complex. C7-T1: Unremarkable MRI/Spine Cervical (Routine) IMPRESSION: Degenerate changes predominantly at C4-C5 where there is moderate bilateral foramina stenosis and mild canal stenosis. Severe left foramina stenosis at C3-C4 from facet joint arthropathy and ligamentum flavum hypertrophy. Reading Location: [facility] CC: JEOL HERNANDEZ; BERTO Austin Converting Technician: Signed Normal [facility] Pulmonary Visit Reporton Pulmonary Visit Report [facility] [place] [address] [place] [address] OFFICE VISIT Date of Service: 10/31/24 MR#: [id number] Acct: [id number] Name: DONTAE PARRA Rep #: [id number] : 1975 Provider: Delores Pablo NP Age/Sex: 49/M Location: [facility] Status: Signed Assessment and Plan Assessment and [...] yellow sputum. He reports that he is "always wheezing ". He indicates that he has chest tightness. [...] that it felt like a bee sting ". He had some re (more content not included)... Normal [facility] .GFRon 10-28-2024 Estimated Glomerular Filtration Rate 86 ml/min/1.73sqm Normal [facility] Comment on above: Result Comment: Stages of [...] the eGFR results. Performed By: #### G FR, LIPID, CMP, MG #### [place] [address] [place], [place] [address] #### TESTO #### [facility] [place] [address] [place] [address] [facility] Albumin Level 3.8 G/dL Normal 3.5-5.0 [facility] Comment on above: Performed By: #### G FR, LIPID, CMP, MG #### [place] [address] #### TESTO #### [address] [address] Albumin/Globulin [Mass ratio] 1.1 {ratio} Normal 1.1-2.5 [facility] Comment on above: Performed By: #### G FR, LIPID, CMP, MG #### [place] [address] #### TESTO #### [address] [address] ALP [Catalytic activity/Vol] 119 U/L Normal 40-135 [facility] Comment on above: Performed By: #### G FR, LIPID, CMP, MG #### [place] [address] #### TESTO #### [place] [address] ALT [Catalytic activity/Vol] 25 U/L Normal 16-63 [facility] Comment on above: Performed By: #### G FR, LIPID, CMP, MG #### [place] [address] #### TESTO #### [place] [address] AST [Catalytic activity/Vol] 14 U/L Normal 10-40 [facility] Comment on above: Performed By: #### G FR, LIPID, CMP, MG #### [place] [address] #### TESTO #### [place] [address] Bili Total 0.6 mg/dL Normal 0.2-1.0 [facility] Comment on above: Result Comment: Use of this assay is not recommended for patients undergoing treatment with eltrombopag due to the potential for falsely elevated results. Performed By: #### G FR, LIPID, CMP, MG #### [place] [address] #### TESTO #### [place] [address] BUN/Creatinine Ratio 8 ratio Normal 7-27 [facility] Comment on above: Performed By: #### G FR, LIPID, CMP, MG #### [place] [address] #### TESTO #### [address] [address] Calcium [Mass/Vol] 9.7 mg/dL Normal 8.4-10.2 [facility] Comment on above: Performed By: #### G FR, LIPID, CMP, MG #### [place] [address] #### TESTO #### [place] [address] Chloride [Moles/Vol] 105 mmol/L Normal 98-107 [facility] Comment on above: Performed By: #### G FR, LIPID, CMP, MG #### [place] [address] #### TESTO #### [place] [address] CO2 [Moles/Vol] 30 mmol/L High 22-29 [facility] Comment on above: Performed By: #### G FR, LIPID, CMP, MG #### [place] [address] #### TESTO #### [address] [address] Creatinine [Mass/Vol] 1.06 mg/dL Normal 0.67-1.17 [facility] Comment on above: Performed By: #### G FR, LIPID, CMP, MG #### [place] [address] #### TESTO #### [address] [address] Electrolyte Balance 8.0 mEq/L Normal 4.0-15.0 [facility] Comment on above: Performed By: #### G FR, LIPID, CMP, MG #### [place] [address] #### TESTO #### [address] [address] Globulin 3.6 G/dL Normal 2.7-4.4 [facility] Comment on above: Performed By: #### G FR, LIPID, CMP, MG #### [address] [address] #### TESTO #### [address] [address] Glucose [Mass/Vol] 119 mg/dL High 70-105 [facility] Comment on above: Performed By: #### G FR, LIPID, CMP, MG #### [place] [address] #### TESTO #### [address] [address] Potassium [Moles/Vol] 4.3 mmol/L Normal 3.5-5.1 [facility] Comment on above: Performed By: #### G FR, LIPID, CMP, MG #### [place] [address] #### TESTO #### [address] [address] Sodium [Moles/Vol] 143 mmol/L Normal 136-145 [facility] Comment on above: Performed By: #### G FR, LIPID, CMP, MG #### [place] [address] #### TESTO #### [address] [address] Total Protein 7.4 G/dL Normal 6.4-8.2 [facility] Comment on above: Performed By: #### G FR, LIPID, CMP, MG #### [address] [address] #### TESTO #### [address] [address] Urea nitrogen [Mass/Vol] 8 mg/dL Normal 7-18 [facility] Comment on above: Performed By: #### G FR, LIPID, CMP, MG #### [place] [address] [place], [place] [address] #### TESTO #### [address] [address] LABORATORYOrdered By: SYSTEM SYSTEM on 10-28-2024 Albumin [...] ormal Reference Ranges for Females: Female Premenopause Mjp16-399.01-47.94 ng/dL Female Postmenopause Hui92-55<7.00-45.62 ng/dL Urea nitrogen [Mass/Vol] 8 mg/dL Normal 7 - 18 mg/dL AO ADM SS Urea nitrogen/Creatinine [Mass ratio] 8 ratio Normal 7 - 27 ratio AO ADM SS LABORATORYOrdered By: Nazia Clifford on 10-28-2024 Cholesterol [Mass/Vol] 252 mg/dL High [...] 10-28-2024 Cholesterol [Mass/Vol] 252 mg/dL High 0-200 [facility] Comment on above: Result Comment: Chol esterol Reference Interval: Less than 200 Desirable 200-239 Borderline high risk 240 and above High risk Performed By: #### G FR, LIPID, CMP, MG #### [address] [address] #### TESTO #### [address] [address] Cholesterol in HDL [Mass/Vol] 30 mg/dL Low 40-60 [facility] Comment on above: Performed By: #### G FR, LIPID, CMP, MG #### [place] [address] #### TESTO #### [address] [address] Cholesterol in LDL [Mass/Vol] 159 mg/dL High 0-130 [facility] Comment on above: Performed By: #### G FR, LIPID, CMP, MG #### [place] [address] #### TESTO #### [address] [address] Triglyceride [Mass/Vol] 317 mg/dL High 0-150 [facility] Comment on above: Result Comment: Trig lyceride Reference Interval: Less than 150 Normal 150-199 Borderline high risk 200-499 High risk 500 or higher Very high risk Performed By: #### G FR, LIPID, CMP, MG #### [place] [address] #### TESTO #### [address] [address] MGon 10-28-2024 Magnesium [Mass/Vol] 2.0 mg/dL Normal 1.8-2.4 [facility] Comment on above: Performed By: #### G FR, LIPID, CMP, MG #### [place] [address] #### TESTO #### [address] [address] TESTOon 10-28-2024 Testosterone Lvl 440.88 ng/dL Normal 86.98-780. 10 [facility] Comment on above: Result Comment: Norm al Reference Ranges for Females: Female Premenopause Age 21-60 9.01-47.94 ng/dL Female Postmenopause Age 45-89 <7.00-45.62 ng/dL Performed By: #### G FR, LIPID, CMP, MG #### [facility] [address] [place], [place] [address] #### TESTO #### [facility] [address] [place] [address] Office Visit Reporton 2024 Office Visit Report [facility] [address] [place] [address] OFFICE VISIT Date of Service: 10/08/24 MR#: [id number] Acct: [id number] Patient: DONTAE PARRA Rep #: [id number] : 1975 Provider: JOEL Fuchs Age/Sex: 49/M Location: [facility] Status: Signed Intake Vital Signs 09/29/24 08:34 [...] , Injection administration Chief Complaint: lumbar spine Parking Control Officer Required: No Accompanied by: Self Allergies isosorbide [...] mg PO DAILY 06/15/22 10/08/24 H istory capsule,ext.snrlamo63 hr multiphase potassium chloride 20 mEq 20 [...] tablet 40 mg PO QDAY 10/08/24 10/08/24 Hi story Office Procedures Asthma Injection Procedure: Details:: Patient [...] mg subcutaneous solution Performing Provider: Frances Fuchs PHOTOGRAPH PRINTER, PHOTOGRAPH PRINTER-C Performing Location: [facility] Administered by: Raina Briggs LPN on 10/08/24 09:28 Dose Route Admin Location Dispensed Lot Number Expiration Date [facility] Man ufacturer 100 mg subcut Right arm 1 ea AS6S 11/18/26 3044-4265-26 [facility] Assessment and Plan Assessment and Plan Orders: Orders Nucala Injection Today J45.50 - Severe persistent asthma, uncomplicated 10/08/24 1544 Date (more content not included)... Normal [facility] Cerv Spine 4 or 5 Viewson Cerv Spine 4 or 5 Views [facility] Imaging Services [address] [place] [address] Cerv Spine 4 or 5 Views MR#: [id number] Acct: [id number] Name: DONTAE PARRA Rep #: [id number] : 1975 M 49 From: Joseph Morillo MD PCP: JOEL CANTOR Status: DEP AMB Study: Cerv Spine 4 or 5 Views Date of Exam: 09/29/24 Exam# [id number] Ordering Dr: Macrina Donaldson PROCEDURE: CERV SPINE [...] or malalignment. Mild spondylotic changes. Reading Location: [id number] CC: JOEL HERNANDEZ; BERTO Austin Converting Technician: Signed Normal [facility] L/S Spine Min 4 Viewson 09-19 L/S Spine Min 4 Views [facility] Imaging Services [address] [place] [id number] L/S Spine Min 4 Views MR#: [id number] Acct: [id number] Name: DONTAE PARRA Rep #: [id number] : 1975 M 49 From: Jenifer Padgett PCP: JOEL CANTOR Status: DEP AMB Study: L/S Spine Min 4 Views Date of Exam: 09/29/24 Exam# [id number] Ordering Dr: Macrina Donaldson PROCEDURE: L/S SPINE [...] the L1-L2 and L5-S1 discs. Reading Location: [id number] CC: JOEL HERNANDEZ; BERTO Austin Converting Technician: Signed Normal [facility] Orthopedic Visit Reporton Orthopedic Visit Report [facility] [address] [place] [address] OFFICE VISIT Date of Service: 09/29/24 MR#: [id number] Acct: [id number] Name: DONTAE PARRA MARVA Rep #: [id number] : 1975 Provider: BERTO Austin Age/Sex: 49/M Location: [facility] Status: Signed Intake Vital Signs 09/05/24 05:07 [...] mg PO DAILY 06/15/22 09/29/24 H istory capsule,ext.vapvmpr52 hr multiphase potassium chloride 20 mEq 20 [...] 25 mcg/actuation powdr for inhalation (Anoro Ellipta) PFSH Medical History Wears dentures Wears glasses Arthritis [...] failure Hyperlipidemia Atherosclerosis of coronary artery of [place] heart without angina pectoris Chest pain Noncompliance with medications Essential hypertension Stroke Pneumonia GERD (gastroesophageal reflux disease) COPD (chronic obstructive pulmonary disease) Depression Anxiety Asthma Emphysema, unspecified CAD (coronary artery disease) Encounter for 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 Normal [facility] Cardiology Visit Reporton Cardiology Visit Report [facility] [address] [place] [address] OFFICE VISIT Date of Service: 09/25/24 MR#: [id number] Acct: [id number] Name: DONTAE PARRA Rep #: [id number] : 1975 Provider: JOEL delcid Age/Sex: 49/M Location: [facility] [place] Status: Signed HPI HPI History of Present [...] Intake Vital Signs 03/28/24 09:55 09/05/24 05:07 08/07/25 09:11 Height 6 ft 6 ft 6 ft Weight: 222 lb BMI 30.1 BP 115/78 Blood Pressure Location Lt brachial Position Sitting Respiration 16 Pulse 71 Pulse Source NIBP Intake Visit Reasons: 6 M FU Parking Control Officer Required: No Is patient in pain?: No [...] mg PO DAILY 06/15/22 09/25/24 H istory capsule,ext.swsnpow00 hr multiphase potassium chloride 20 mEq 20 [...] 1 mg PO QHS #30 caps 04/22/24 08/09/12 Rx albuterol sulfate 90 mcg/actuation 2 puff [...] you fallen in the past year?: Yes [facility] Medical History Wears dentures Wears glasses Arthritis High cholesterol Injury of head and neck Injury of back History of IBS Gastric reflux Smoker CPAP (continuous positive airway pressure) dependence Sleep apnea On home oxygen therapy Emphysema, unspecified (more content not included)... Normal [facility] Pulmonary Visit Reporton Pulmonary Visit Report [facility] [place] [address] [place] [address] OFFICE VISIT Date of Service: 09/05/24 MR#: [id number] Acct: [id number] Name: DONTAE PARRA Rep #: [id number] : 1975 Provider: Delores Pablo NP Age/Sex: 49/M [facility]: [facility] [facility] Status: Signed Assessment and Plan Assessment and [...] Q12H 6 (more content not included)... Normal [facility] Colonoscopy Reporton 025 Colonoscopy Report [facility] Medical Records Department [address] [place] [address] Colonoscopy Report MR#: [id number] Acct: [id number] Name: DONTAE PARRA Rep #: [id number] : 1975 49 From: Calvin Jasso DO PCP: JOEL CANTOR Status:REG MDC Patient Name: Dontae Parra Procedure Date: 09/04/2024 [...] for surveillance. Procedure Code(s): --- Professional --- 32897, Colonoscopy, flexible; with biopsy, single or multiple CPT copyright 2021 [employer]. All rights reserved. The codes documented in this report are preliminary and upon computer information systems instructor review may be revised to meet current compliance requirements. Calvin Jasso DO 09/04/2024 7:28:35 AM This report has been signed electronically. Number of Addenda: 0 Note Initiated On: 09/04/2024 6:59 AM 09/04/24728 Date Calvin Andrade Signature: Date (if indicated) CC: PHOTOGRAPH PRINTERGustavo HERNANDEZ; Calvin Jasso DO Date Dictated: 09/04/2459 Date Transcribed: Converting Technician: LUIS Signed [facility] MR/POSTOP.[facility] 09-04-2024 MR/POSTOP.[facility] Medical Records Department [address] [place] [address] Anesthesia Postop Eval I 09/04/24729 MR#: [id number] Acct: [id number] Name: DONTAE PARRA MARVA Rep #: [id number] : 1975 49 From: Mike Melgar PCP: JOEL CANTOR Status:REG SDC Y Race: C Location: [place] [address] Anesthesia: Postop Eval I Current Vital Signs [...] Anesthesia document: Postop Eval 1 completed: Yes 09/04/24731 Date Mike Gillespie Signature: Date CC: Signed Normal [facility] MR/[id number] 09-04-2024 MR/POSTOPAN2 [facility] Medical Records Department [address] [place] [address] Anesthesia Postop Eval II 09/04/24951 MR#: [id number] Acct: [id number] Name: DONTAE PARRA Rep #: [id number] : 1975 49 From: Brian Griffiths MD PCP: JOEL CANTOR Status:[facility] Y Race: C Location: [place] Anesthesia Postop [...] Vomiting: No 09/04/24951 Date Brian Griffiths MD Cosigner Signature: Date CC: Signed Normal [facility] Surgery Specimen Level Ben 09-04-2024 Surgery Specimen Level IV ------- -------- Patient Age/Sex Location Account Attending Physician -------- DONTAE PARRA 49/M EN [id number] Calvin Jasso DO -------- Specimen: [id number] Received: 09/04/24 Status: MIKE Tomas Num: [id number] Spec Type: COLON BX Subm Dr: Calvin Jasso, DO HEADER OPERATION: Colonoscopy, Biopsy PRE-OP DIAGNOSIS: Hematochezia, Acute Constipation TISSUE SUBMITTED: Sigmoid Colon Biopsy -------- MICROSCOPIC DIAGNOSIS A. Colon, sigmoid, biopsy: - No specific pathologic change. MICROSCOPIC DESCRIPTION Slides are reviewed. GROSS DESCRIPTION A. Received in formalin labeled with the patient's name and date of . Designated as " sigmoid colon BX" are 2 [place] tissue fragments, 0.2 cm and 0.3 cm. Entirely submitted in 1 cassette. DC 09/04/2024 CPT: 47372 -------- Patient Age/Sex Location Account Attending Physician -------- DONTAE PARRA 49/M EN [id number] Calvin Jasso DO -------- Signed (signature on file) Dr. Roseann Farias MD 09/05/24 1556 -------- Normal [facility] Comment on above: Performed By: #### P SUIV ####[facility] [address] [place], [address] MR/PAT.SNEHAon 09-02-2024 MR/PAT.SNEHA [facility] Medical Records Department [address] [place] [address] PAT - Anesthesia 09/02/24 1704 MR#: [id number] Acct: [id number] Name: DONTAE PARRA Rep #: [id number] : 1975 49 From: Rush Lal MD PCP: JOEL CANTOR Status:PRE [facility] Y Race: C Location: EN Pre-Assessment Diagnosis/Proposed Procedure Planned Operative Procedure(s): COLONOSCOPY Anesthesia History Anesthesia History - active directory administrator: Anesthesia History - active directory administrator Hx Hospitalization No 09/02/24 09:31 Any Problems [...] take am of surgery PONV PONV - active directory administrator: PONV - active directory administrator Female No 09/02/24 09:31 HX of Motion Sickness No 09/02/24 09:31 HX of N/V After Surgery No 09/02/24 09:31 Non-Smoker No 09/02/24 09:31 Duration of Surgery greater No 09/02/24 09:31 than 60 minutes Number of Risk Factors PONV Score Height Weight Height Weight: Anesthesia: Height Weight Height 6 ft 04/11/24 06:09 Respiratory Assessment Respiratory Assessment - active directory administrator: Respiratory Tract Infection Hx - active directory administrator Hx Respiratory Tract Infection No 09/02/24 09:31 STOP Sleep Apnea STOP Sleep Apnea - active directory administrator: STOP Sleep Apnea - active directory administrator Hx Hypertension Yes 09/02/24 09:31 Hx Sleep [...] Tobacco Use History Tobacco Use History - active directory administrator: Tobacco Use History - active directory administrator Tobacco Use Smoking Status Current some day smoker 09/02/24 09:31 Hx Tobacco Use Yes 09/02/24 09:31 Years Smoking Packs Smoked per Day Smoking Cessation Date was within the last 15 years Hx Smoking Cessation Date Hx Smoking Cessation No 09/02/24 09:31 Counseling Hematologic Medial History Hematologic Hx - active directory administrator: Hematologic Medical Hx - documentation lead Hx of Blood Transfusion No 09/02/24 09:31 Hx of Transfusion in last 3 No 09/02/24 09:31 Months Date of Last Transfusion (if within last 3 months) Ever experience any problems No 09/02/24 09:31 with transfusion(s)? Specify any problems Hx of Preganancy in last 3 N/A 09/02/24 09:31 Months Nurse Filling Out Transfusion [facility] 09/02/24 09:31 Questions: Date: 09/02/24 09/02/24 09:31 Time: 09:38 09/02/24 09:31 Patient unable to answer at this time (ie. confused, unrespo /Reproductio n History /Reproductiv e History - active directory administrator: /Reproductiv e Hx- active directory administrator Hx Now No 09/02/24 09:31 Gestational Age (in weeks): EDC: Hx Hx Para Hx Section SAB No 09/02/24 09:31 PFS Medical History (Updated 09/02/24 @ 09:38 by [...] failure Hyperlipidemia Atherosclerosis of coronary artery of [place] heart without angina pectoris Chest pain Noncompliance with medications Essential hypertens (more content not included)... Normal [facility] XR CHEST 2 VIEWSon XR CHEST 2 [...] by: Diomedes Gracia DO Preliminary Report By: Diomdees Gracia DO Electronically signed By Diomedes Gracia DO Dictated Date: 08/01/2024 8:19:35 AM Prelim Date: 08/01/2024 8:20:59 AM Sign Date: 08/01/2024 8:20:59 AM Ordering Provider: MICHELLE MOORE Normal [facility] .Auto Diffon 07-28-2024 Basophil, Absolute 0.0 10 3/mcL Normal 0.0-0.3 [facility] Comment on above: Performed By: #### C MP, CRP, CBC, ANEU, GFR, ADIFF ####[place] [address] [place], [place] [address] Basophils/100 WBC (Bld) 0.1 % Normal 0.0-2.5 [facility] Comment on above: Performed By: #### C MP, CRP, CBC, ANEU, GFR, ADIFF ####[place] [place], [place] [address] Eosinophil, Absolute 0.0 10 3/mcL Normal 0.0-0.7 [facility] Comment on above: Performed By: #### C MP, CRP, CBC, ANEU, GFR, ADIFF ####[place] [address] [place], [place] [address] Eosinophils/100 WBC (Bld) 0.1 % Normal 0.0-6.0 [facility] Comment on above: Performed By: #### C MP, CRP, CBC, ANEU, GFR, ADIFF ####[place] [address] [place], [place] [address] Lymphocyte, Absolute 2.4 10 3/mcL Normal 0.9-4.3 [facility] Comment on above: Performed By: #### C MP, CRP, CBC, ANEU, GFR, ADIFF ####[place] [address] [place], [place] [address] Lymphocytes/100 WBC (Bld) 20.4 % Normal 20.0-40.0 [facility] Comment on above: Performed By: #### C MP, CRP, CBC, ANEU, GFR, ADIFF ####[place] [address] [place], [place] [address] Monocyte, Absolute 1.0 10 3/mcL Normal 0.1-1.4 [facility] Comment on above: Performed By: #### C MP, CRP, CBC, ANEU, GFR, ADIFF ####[facility] [place] [address] Monocytes/100 WBC (Bld) 8.6 % Normal 2.0-13.0 [facility] Comment on above: Performed By: #### C MP, CRP, CBC, ANEU, GFR, ADIFF ####[address] [address] Neutrophils/100 WBC (Bld) 70.8 % Normal 50.0-75.0 [facility] Comment on above: Performed By: #### C MP, CRP, CBC, ANEU, GFR, ADIFF ####[facility] [place], [place] [address] .GFRon 07-28-2024 Estimated Glomerular Filtration Rate 73 ml/min/1.73sqm Normal [facility] Comment on above: Result Comment: Stages of [...] C MP, CRP, CBC, ANEU, GFR, ADIFF ####[place] [address] [place], [place] [address] .NEUABSon 07-28-2024 Neutrophil, Absolute 8.5 10 3/mcL High 2.3-8.1 [facility] Comment on above: Performed By: #### C MP, CRP, CBC, ANEU, GFR, ADIFF ####[place] [address] [place], [place] [address] CBCon 07-28-2024 Erythrocyte distribution width (RBC) [Ratio] 13.5 % Normal 11.5-15.5 [facility] Comment on above: Performed By: #### C MP, CRP, CBC, ANEU, GFR, ADIFF ####[address] [address] Hematocrit (Bld) [Volume fraction] 42.6 % Normal 40.0-52.0 [facility] Comment on above: Performed By: #### C MP, CRP, CBC, ANEU, GFR, ADIFF ####[address] [address] Hgb 14.7 G/dL Normal 13.0-17.5 [facility] Comment on above: Performed By: #### C MP, CRP, CBC, ANEU, GFR, ADIFF ####[address] [address] MCH (RBC) [Entitic mass] 30.9 pg Normal 27.0-33.0 [facility] Comment on above: Performed By: #### C MP, CRP, CBC, ANEU, GFR, ADIFF ####[facility] [place], [place] [address] MCHC 34.5 G/dL Normal 32.0-36.0 [facility] Comment on above: Performed By: #### C MP, CRP, CBC, ANEU, GFR, ADIFF ####[place] [address] [place], [place] [address] MCV (RBC) [Entitic vol] 89.6 fL Normal 81.0-100.0 [facility] Comment on above: Performed By: #### C MP, CRP, CBC, ANEU, GFR, ADIFF ####[address] [address] Platelet 341 10 3/mcL Normal 150-450 [facility] Comment on above: Performed By: #### C MP, CRP, CBC, ANEU, GFR, ADIFF ####[address] [address] Platelet mean volume (Bld) [Entitic vol] 6.3 fL Low 6.4-10.5 [facility] Comment on above: Performed By: #### C MP, CRP, CBC, ANEU, GFR, ADIFF ####[place] [place], [place] [address] RBC 4.76 10 6/mcL Normal 4.50-6.00 [facility] Comment on above: Performed By: #### C MP, CRP, CBC, ANEU, GFR, ADIFF ####[address] [address] WBC 12.0 10 3/mcL High 4.5-10.8 [facility] Comment on above: Performed By: #### C MP, CRP, CBC, ANEU, GFR, ADIFF ####[place] [place], [place] [address] CMPon 07-28-2024 Albumin Level 3.7 G/dL Normal 3.5-5.0 [facility] Comment on above: Performed By: #### C MP, CRP, CBC, ANEU, GFR, ADIFF ####[address] [address] Albumin/Globulin [Mass ratio] 0.9 {ratio} Low 1.1-2.5 [facility] Comment on above: Performed By: #### C MP, CRP, CBC, ANEU, GFR, ADIFF ####[address] [address] ALP [Catalytic activity/Vol] 122 U/L Normal 40-135 [facility] Comment on above: Performed By: #### C MP, CRP, CBC, ANEU, GFR, ADIFF ####[address] [address] ALT [Catalytic activity/Vol] 21 U/L Normal 16-63 [facility] Comment on above: Performed By: #### C MP, CRP, CBC, ANEU, GFR, ADIFF ####[address] [address] AST [Catalytic activity/Vol] 13 U/L Normal 10-40 [facility] Comment on above: Performed By: #### C MP, CRP, CBC, ANEU, GFR, ADIFF ####[address] [address] Bili Total 0.6 mg/dL Normal 0.2-1.0 [facility] Comment on above: Result Comment: Use of this assay is not recommended for patients undergoing treatment with eltrombopag due to the potential for falsely elevated results. Performed By: #### C MP, CRP, CBC, ANEU, GFR, ADIFF ####[address] [address] BUN/Creatinine Ratio 12 ratio Normal 7-27 [facility] Comment on above: Performed By: #### C MP, CRP, CBC, ANEU, GFR, ADIFF ####[address] [address] Calcium [Mass/Vol] 9.8 mg/dL Normal 8.4-10.2 [facility] Comment on above: Performed By: #### C MP, CRP, CBC, ANEU, GFR, ADIFF ####[address] [address] Chloride [Moles/Vol] 103 mmol/L Normal 98-107 [facility] Comment on above: Performed By: #### C MP, CRP, CBC, ANEU, GFR, ADIFF ####[place] [address] [address] CO2 [Moles/Vol] 25 mmol/L Normal 22-29 [facility] Comment on above: Performed By: #### C MP, CRP, CBC, ANEU, GFR, ADIFF ####[place] [address] [place], [place] [address] Creatinine [Mass/Vol] 1.21 mg/dL High 0.67-1.17 [facility] Comment on above: Performed By: #### C MP, CRP, CBC, ANEU, GFR, ADIFF ####[address] [address] Electrolyte Balance 12.0 mEq/L Normal 4.0-15.0 [facility] Comment on above: Performed By: #### C MP, CRP, CBC, ANEU, GFR, ADIFF ####[place] [address] [address] Globulin 4.0 G/dL Normal 2.7-4.4 [facility] Comment on above: Performed By: #### C MP, CRP, CBC, ANEU, GFR, ADIFF ####[place] [address] Glucose [Mass/Vol] 96 mg/dL Normal 70-105 [facility] Comment on above: Performed By: #### C MP, CRP, CBC, ANEU, GFR, ADIFF ####[address] [address] Potassium [Moles/Vol] 4.2 mmol/L Normal 3.5-5.1 [facility] Comment on above: Performed By: #### C MP, CRP, CBC, ANEU, GFR, ADIFF ####[facility] [place], [place] [address] Sodium [Moles/Vol] 140 mmol/L Normal 136-145 [facility] Comment on above: Performed By: #### C MP, CRP, CBC, ANEU, GFR, ADIFF ####[place] [address] [place] [id number] Total Protein 7.7 G/dL Normal 6.4-8.2 [facility] Comment on above: Performed By: #### C MP, CRP, CBC, ANEU, GFR, ADIFF ####[place] [address] [place] [id number] Urea nitrogen [Mass/Vol] 14 mg/dL Normal 7-18 [facility] Comment on above: Performed By: #### C MP, CRP, CBC, ANEU, GFR, ADIFF ####[address] [place], [place] [address] CRPon 07-28-2024 C-Reactive Protein 3.3 mg/dL High 0.0-0.3 [facility] Comment on above: Performed By: #### C MP, CRP, CBC, ANEU, GFR, ADIFF ####[address] [place] [place], [place] [address] LABORATORYOrdered By: SYSTEM SYSTEM on 07-28-2024 Albumin [...] 07/25/2024 2:32:39 PM Ordering Provider: JEANNIE Batista [facility] Gastroenterology Visit Repor ton 06-27-2024 Gastroenterology Visit Report [facility] Gastroenterology [address] [place] [address] OFFICE VISIT Date of Service: 06/27/24 MR#: [id number] Acct: [id number] Name: DONTAE PARRA Rep #: [id number] : 1975 Provider: JOEL vega Age/Sex: 48/M Location: [facility] Status: Signed Intake Vital Signs 04/11/24 06:09 [...] mg PO DAILY 06/15/22 06/26/24 H istory capsule,ext.[id number] hr multiphase montelukast 10 mg tablet 10 [...] 1 mg PO QHS #30 caps 04/22/24 05/0 10/13 Rx fluticasone furoate 200 1 inh inhalation [...] failure Hyperlipidemia Atherosclerosis of coronary artery of [place] heart without angina pectoris Chest pain Noncompliance [...] 06/27/24 @ (more content not included)... Normal [facility] .Auto Diffon 06-19-2024 Basophil, Absolute 0.0 10 3/mcL Normal 0.0-0.3 [facility] Comment on above: Performed By: #### C BC, ANEU, ADIFF ####[place] [address] [place], [place] [address] Lymphocyte, Absolute 2.8 10 3/mcL Normal 0.9-4.3 [facility] Comment on above: Performed By: #### C BC ANEU, ADIFF ####[place] [address] [place], [place] [address] Monocyte, Absolute 0.6 10 3/mcL Normal 0.1-1.4 [facility] Comment on above: Performed By: #### C BC, ANEU, ADIFF ####[place] [address] [place], [place] [address] .Auto DiffOrdered By: SYSTEM SYSTEM on 06-19-2024 Basophils/100 WBC (Bld) 0.2 % Normal 0.0-2.5 [facility] Comment on above: Performed By: #### C BC, ANEU, ADIFF ####[place] [address] [place], [place] [address] Eosinophil, Absolute 0.0 103/mcL Normal 0.0-0.7 [facility] Comment on above: Performed By: #### C BC, ANEU, ADIFF ####[place] [address] [place], [place] [address] Eosinophils/100 WBC (Bld) 0.3 % Normal 0.0-6.0 [facility] Comment on above: Performed By: #### C BC, ANEU, ADIFF ####[place] [address] [place], [place] [address] Lymphocytes/100 WBC (Bld) 27.2 % Normal 20.0-40.0 [facility] Comment on above: Performed By: #### C BCBRAXTON, ADIFF ####[place] [address] [address] Monocytes/100 WBC (Bld) 6.2 % Normal 2.0-13.0 [facility] Comment on above: Performed By: #### C BCBRAXTON, ADIFF ####[place] [address] [address] Neutrophils/100 WBC (Bld) 66.1 % Normal 50.0-75.0 [facility] Comment on above: Performed By: #### C BCBRAXTON, ADIFF ####[address] [address] .NEUABSon 06-19-2024 Neutrophil, Absolute 6.9 10 3/mcL Normal 2.3-8.1 [facility] Comment on above: Performed By: #### C BRAXTON GAVIRIA, ADIFF ####[address] [address] CBCOrdered By: SYSTEM SYSTEM on 06-19-2024 Erythrocyte distribution width (RBC) [Ratio] 14.1 % Normal 11.5-15.5 [facility] Comment on above: Performed By: #### C BCBRAXTON, ADIFF #### [place] [address] [address] Hematocrit (Bld) [Volume fraction] 44.3 % Normal 40.0-52.0 [facility] Comment on above: Performed By: #### C BCBRAXTON, ADIFF #### [place] [address] [address] MCH (RBC) [Entitic mass] 31.1 pg Normal 27.0-33.0 [facility] Comment on above: Performed By: #### C BCBRAXTON, ADIFF #### [place] [address] [address] MCHC 34.7 G/dL Normal 32.0-36.0 [facility] Comment on above: Performed By: #### C BCBRAXTON, ADIFF #### [address] [address] MCV (RBC) [Entitic vol] 89.6 fL Normal 81.0-100.0 [facility] Comment on above: Performed By: #### C BRAXTON GAVIRIA, ADIFF #### [address] [address] Platelet mean volume (Bld) [Entitic vol] 6.3 fL Low 6.4-10.5 [facility] Comment on above: Performed By: #### C BRAXTON GAVIRIA, ADIFF #### [address] [address] CBCon 06-19-2024 Hgb 15.4 G/dL Normal 13.0-17.5 [facility] Comment on above: Performed By: #### C BRAXTON GAVIRIA, ADIFF #### [address] [address] Platelet 315 10 3/mcL Normal 150-450 [facility] Comment on above: Performed By: #### C BRAXTON GAVIRIA, ADIFF #### [address] [address] RBC 4.94 10 6/mcL Normal 4.50-6.00 [facility] Comment on above: Performed By: #### C BRAXTON GAVIRIA, ADIFF #### [address] [address] WBC 10.4 10 3/mcL Normal 4.5-10.8 [facility] Comment on above: Performed By: #### C BRAXTON GAVIRIA, ADIFF #### [address] [address] LABORATORYOrdered By: SYSTEM SYSTEM on 06-19-2024 Basophils [...] Estimated Glomerular Filtration Rate 84 ml/min/1.73sqm Normal [facility] Comment on above: Result Comment: Stages of [...] results. Performed By: #### C MP, GFR ####[place] [address] [place], [place] [address] CMPon 06-18-2024 Albumin Level 4.1 G/dL Normal 3.5-5.0 [facility] Comment on above: Performed By: #### C MP, GFR ####[place] [address] [place], [place] [address] Albumin/Globulin [Mass ratio] 1.1 {ratio} Normal 1.1-2.5 [facility] Comment on above: Performed By: #### C MP, GFR ####[facility] [place], [place] [address] ALP [Catalytic activity/Vol] 118 U/L Normal 40-135 [facility] Comment on above: Performed By: #### C MP, GFR ####[place] [address] [place], [place] [address] ALT [Catalytic activity/Vol] 35 U/L Normal 16-63 [facility] Comment on above: Performed By: #### C MP, GFR ####[place] [address] [place], [place] [address] AST [Catalytic activity/Vol] 17 U/L Normal 10-40 [facility] Comment on above: Performed By: #### C MP, GFR ####[place] [address] [place], [place] [address] Bili Total 0.9 mg/dL Normal 0.2-1.0 [facility] Comment on above: Result Comment: Use of this assay is not recommended for patients undergoing treatment with eltrombopag due to the potential for falsely elevated results. Performed By: #### C MP, GFR ####[place] [address] [place], [place] [address] BUN/Creatinine Ratio 13 ratio Normal 7-27 [facility] Comment on above: Performed By: #### C MP, GFR ####[place] [address] [place], [place] [address] Calcium [Mass/Vol] 9.8 mg/dL Normal 8.4-10.2 [facility] Comment on above: Performed By: #### C MP, GFR ####[place] [address] [place], [place] [address] Chloride [Moles/Vol] 101 mmol/L Normal 98-107 [facility] Comment on above: Performed By: #### C MP, GFR ####[place] [address] [place], [place] [address] CO2 [Moles/Vol] 28 mmol/L Normal 22-29 [facility] Comment on above: Performed By: #### C MP, GFR ####[place] [address] [place], [place] [address] Creatinine [Mass/Vol] 1.08 mg/dL Normal 0.67-1.17 [facility] Comment on above: Performed By: #### C MP, GFR ####[place] [address] [place], [place] [address] Electrolyte Balance 8.0 mEq/L Normal 4.0-15.0 [facility] Comment on above: Performed By: #### C MP, GFR ####[place] [address] [place], [place] [address] Globulin 3.6 G/dL Normal 2.7-4.4 [facility] Comment on above: Performed By: #### C MP, GFR ####[place] [address] [place], [place] [address] Glucose [Mass/Vol] 100 mg/dL Normal 70-105 [facility] Comment on above: Performed By: #### C MP, GFR ####[place] [address] [place], [place] [address] Potassium [Moles/Vol] 3.8 mmol/L Normal 3.5-5.1 [facility] Comment on above: Performed By: #### C MP, GFR ####[place] [address] [place], [place] [address] Sodium [Moles/Vol] 137 mmol/L Normal 136-145 [facility] Comment on above: Performed By: #### C MP, GFR ####[place] [place], [place] [address] Total Protein 7.7 G/dL Normal 6.4-8.2 [facility] Comment on above: Performed By: #### C MP, GFR ####[place] [address] [place], [place] [address] Urea nitrogen [Mass/Vol] 14 mg/dL Normal 7-18 [facility] Comment on above: Performed By: #### C MP, GFR ####[place] [address] [place], [place] [address] CT ABD/PELVIS W/ IV CONTRAST ONLYon 06-18-2024 [...] 06/18/2024 6:15:42 PM Ordering Provider: JEANNIE Batista [facility] LABORATORYOrdered By: SYSTEM SYSTEM on 06-18-2024 Albumin [...] ADM SS Lipid Profileon 05-26-2024 TRIG Normal [facility] Comment on above: Result Comment: PT L EFT COMING BACK ANOTHER DAY The drugs N-Acetylcysteine and Metamizole may falsely depress this assay. Performed By: #### L 500.4100, L500.3400 ####[facility] [address] [place], [address] CHOL Normal <=200 [facility] Comment on above: Result Comment: PT L EFT COMING BACK ANOTHER DAY Performed By: #### L 500.4100, L500.3400 ####[facility] [address] [place], [address] CHOL:HDL Normal [facility] Comment on above: Result Comment: PT L EFT COMING BACK ANOTHER DAY Performed By: #### L 500.4100, L500.3400 ####[facility] [address] [place], [address] CLDL Normal [facility] Comment on above: Result Comment: PT L EFT COMING BACK ANOTHER DAY Performed By: #### L 500.4100, L500.3400 ####[facility] [address] [place], [address] HDL Normal [facility] Comment on above: Result Comment: PT L EFT COMING BACK ANOTHER DAY Performed By: #### L 500.4100, L500.3400 ####[facility] [address] [place], [address] VLDL Normal 5-40 [facility] Comment on above: Result Comment: PT L EFT COMING BACK ANOTHER DAY Performed By: #### L 500.4100, L500.3400 ####[facility] [address] [place], [address] Liver Profileon 05-26-2024 ALB Normal 3.5-5.0 [facility] Comment on above: Result Comment: PT L EFT COMING BACK ANOTHER DAY Performed By: #### L 500.4100, L500.3400 #### [facility] Laboratory [address] [place], [address] ALK PHOS Normal 40-129 [facility] Comment on above: Result Comment: PT L EFT COMING BACK ANOTHER DAY Performed By: #### L 500.4100, L500.3400 #### [facility] [address] [place], [address] ALT Normal <=46 [facility] Comment on above: Result Comment: PT L EFT COMING BACK ANOTHER DAY Performed By: #### L 500.4100, L500.3400 #### [facility] Laboratory [address] [place], [address] AST Normal <=37 [facility] Comment on above: Result Comment: PT L EFT COMING BACK ANOTHER DAY Performed By: #### L 500.4100, L500.3400 #### [facility] [address] [place], [address] D BILI Normal 0.00-0.30 [facility] Comment on above: Result Comment: PT L EFT COMING BACK ANOTHER DAY Performed By: #### L 500.4100, L500.3400 #### [facility] Laboratory [address] [place], [address] T BILI Normal 0.00-1.30 [facility] Comment on above: Result Comment: PT L EFT COMING BACK ANOTHER DAY Performed By: #### L 500.4100, L500.3400 #### [facility] Laboratory [address] [place], [address] T PROT Normal 5.9-8.4 [facility] Comment on above: Result Comment: PT L EFT COMING BACK ANOTHER DAY Performed By: #### L 500.2480, L500.6960 #### [facility] Laboratory [address] [place], [place], [address] Angiotensin Convert Enzymeon 05-16-2024 ANGIOT-CONV.ENZ 73 U/L Normal 14-82 [facility] Comment on above: Result Comment: Perf ormed at: CB - [facility] [address] [id number] Caregiver Services Home: Trent Live PhD, Phone: [phone] Performed By: #### L 4902.7392 #### [facility] Laboratory [address] [place], [place], [address] Chest without Contraston Chest without Contrast [facility] Imaging Services [address] [place], [place] [address] Chest without Contrast MR#: [id number] Acct: [id number] Name: DONTAE PARRA Rep #: [id number] : 1975 M 48 From: Jeyson Dahl MD PCP: JEANNIE HERNANDEZ PHOTOGRAPH PRINTERGustavo Status: REG CLI Study: Chest without Contrast Date of Exam: 05/14/24 Exam# [id number] Ordering Dr: Delores Pablo PHOTOGRAPH PRINTER- C PROCEDURE: CHEST WITHOUT CONTRAST 05/14/2024 REASON [...] stents appears greatest right coronary. Reading Location: [id number] CC: JEANNIE MALDONADO ELPIDIO; Delores Pablo NP Converting Technician: Signed Normal [facility] Pulmonary Visit Reporton Pulmonary Visit Report [facility] [place] [address] [place] [address]. [address] [place] [address] OFFICE VISIT Date of Service: 04/11/24 MR#: [id number] Acct: [id number] Name: DONTAE PARRA Rep #: [id number] : 1975 Provider: Delores Pablo NP Age/Sex: 48/M Location: [facility] Status: Signed Assessment and Plan Assessment and [...] to his regimen. Orders: Orders Fungus Stain ([facility]) Today R05.3 - Chronic cough Angiotensin Convert [...] that he awakens in the morning with "so much phlegm in my throat that I cannot get my air". He reports that he is forced to cough so hard that he will have emesis and this will allow for the air to move. He reports that he experiences chest tightness when he is unable to move air in and out of his chest. There are times where his cough is so forceful that his legs will "feel wobbly, go numb and tingle". He denies sinus congestion. Cold air is [...] currently smo (more content not included)... Normal [facility] Cardiology Visit Reporton Cardiology Visit Report [facility] 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 Normal [facility] Stress Reporton 03-03-2024 Stress Report [facility] Cardiovascular Services [address] [place] [address] MR#: [id number] Acct: [id number] Name: DONTAE PARRA Rep #: [id number] : 1975 48 From: Bria Olsen MD Primary Care: JEANNIE HERNANDEZ PHOTOGRAPH PRINTER-C Status: REG CLI Referring Dr: Elda Villegas PHOTOGRAPH PRINTER PHOTOGRAPH PRINTER-C Sex: M C Stress Test Report Date: [...] of 59%. This note was generated with Guomaiation software. It may contain incorrect words, spelling, and punctuation that were not noted in checking the note before signing. 03/03/24 0900 Date Bria Olsen MD CC: JOEL HERNANDEZ Date Dictated: 03/03/24858 Date Transcribed: 03/03/24858 Converting Technician: JAIRO Signed Normal [facility] Pulmonary Visit Reporton Pulmonary Visit Report [facility] Pulmonary Medicine of [address] [place] [address] OFFICE VISIT Date of Service: 02/29/24 MR#: [id number] Acct: [id number] Name: DELILAHDONTAECarson DURHAM Rep #: [id number] : 1975 Provider: Delores Pablo NP Age/Sex: 48/M Location: [facility] Status: Signed Assessment and Plan Assessment and [...] today. I have also recommended transitioning to [facility] from [facility]. Patient has been given samples [...] ea 5RF J43.9 - Emphysema, unspecified Discontinued wwusmbymgi-utbznuvi-x ormoterol 160-9-4.8 mcg/actuation ([employer]) Discontinued Reason: [...] pain for which he is following with [place] [facility] for plan and management. He reports occasional chest tightness and wheezing. Albuterol does improve his symptoms. (more content not included)... Normal [facility] Chest PA and Lateralon 02-18 Chest PA and Lateral [facility] Imaging Services [address] [place] [address] Chest PA and Lateral MR#: [id number] Acct: [id number] Name: DONTAE PARRA Rep #: [id number] : 1975 M 48 From: Michelle Mercer MD PCP: JEANNIE HERNANDEZ Status: REG CLI Study: Chest PA and Lateral Date of Exam: 02/19/24 Exam# [id number] Ordering Dr: Delores Pablo [id number] STUDY: X-RAY CHEST REASON FOR EXAM: Male, [...] 23:55 EST , CC: JEANNIE Pablo NP Converting Technician: Signed Normal [facility] MR/BMS.BPon 02-19-2024 MR/BMS.BP [address], [address] [place] [address] OFFICE VISIT Date of Service: 02/19/24 MR#: [id number] Acct: [id number] Name: DELILAHDONTAE Rep #: [id number] : 1975 Provider: JOEL naranjo Age/Sex: 48/M Location: [facility].BP Status: Signed Intake Vital Signs 01/08/24 14:09 [...] 20 mg PO DAILY 06/15/22 02/19/24 History capsule,ext.irsyttz23 hr multiphase montelukast 10 mg tablet 10 [...] failure Hyperlipidemia Atherosclerosis of coronary artery of [place] heart without angina pectoris Chest pain Noncompliance [...] smoker tobacc (more content not included)... Normal [facility] Urine Drug Screen (VISTA)on 01-21-2024 AMPHETAMINES Negative Normal <1000 ng/mL [facility] Comment on above: Order Comment: MEDTO X Performed By: #### L 505.5000 ####[facility] [address] [place], [address] BARBITIURATES Negative Normal < 200 ng/mL [facility] Comment on above: Order Comment: MEDTO X Performed By: #### L 505.5000 ####[facility] [address] [place], [address] BENZODIAZIPINE Negative Normal < 200 ng/mL [facility] Comment on above: Order Comment: MEDTO X Performed By: #### L 505.5000 ####[facility] [address] [place], [address] COCAINE Negative Normal < 300 ng/mL [facility] Comment on above: Order Comment: MEDTO X Performed By: #### L 505.5000 ####[facility] [address] [place], [address] ECSTACY Negative Normal < 500 ng/mL [facility] Comment on above: Order Comment: MEDTO X Performed By: #### L 505.5000 ####[facility] [address] [place], [address] METHADONE Negative Normal < 300 ng/mL [facility] Comment on above: Order Comment: MEDTO X Performed By: #### L 505.5000 ####[facility] [address] [place], [address] OPIATES Negative Normal < 300 ng/mL [facility] Comment on above: Order Comment: MEDTO X Performed By: #### L 505.5000 ####[facility] [address] [place], [address] PCP Negative Normal < 25 ng/mL [facility] Comment on above: Order Comment: MEDTO X Performed By: #### L 505.5000 ####[facility] [address] [facility] [address] THC Negative Normal < 50 ng/mL [facility] Comment on above: Order Comment: MEDTO X Performed By: #### L 505.5000 ####[facility] [address] [place], [address] VISTA UDS PH 5 Normal [facility] Comment on above: Order Comment: MEDTO X Performed By: #### L 505.5000 ####[facility] [address] [place], [address] Pulmonary Visit Reporton Pulmonary Visit Report [facility] [place] [address] [place] [address] OFFICE VISIT Date of Service: 01/14/24 MR#: [id number] Acct: [id number] Name: DONTAE PARRA Rep #: [id number] : 1975 Provider: Delores Pablo NP Age/Sex: 48/M Location: [facility] Status: Signed Assessment and Plan Assessment and Plan (1) COPD (chronic obstructive pulmonary disease): Status: Chronic Qualifiers: COPD type: emphysema Emphysema type: unspecified Qualified Code(s): J43.9 - Emphysema, unspecified Comment: Severe asthma overlap syndrome Plan: Follow up PA and Lat chest xray to determine if pneumonia has resolved and to continue to evaluate for etiologies that would produce dyspnea. Lona PA/Lat xray to be pushed to [facility]. I did follow-up with Elda Villegas, Cardiology [employer] who is planning to discuss a stress [...] sputum culture today stating, that was already done". Sputum culture from 09/2022 showed 4+ gram [...] prednisone taper today but has declined because "I need to wait until it gets colder because my symptoms worsen then". (5) Mild sleep apnea: Status: Chronic Comment: [...] pain for which he is following with [place] [facility] for plan and management. He reports an MRI was obtained this morning. The cough occurs several times throughout the day. Sometimes it is so severe it causes him to gag and at times even vomit, which he indicates occurred with last PFT. He reports that the cough is productive with clear to yellow sputum. He reports occasional sharp chest pain "which is why I am on my heart medication "-patient reports. He indicates that this is at baseline and has not worsened. He reports occasional chest tightness and wheezing. Albuterol does improve his symptoms. He denies any fever, chills or body aches. He reports that his symptoms are so problematic that it causes him difficulty in being able to b (more content not included)... Normal [facility] MR/BPon 01-08-2024 MR/BMS.BP [facility] [address] [facility] [place], [address] [place] [address] OFFICE VISIT Date of Service: 01/08/24 MR#: [id number] Acct: [id number] Name: DONTAE PARRA Rep #: [id number] : 1975 Provider: JOEL naranjo Age/Sex: 48/M Location: [facility].BP Status: Signed Intake Vital Signs 11/06/23 09:59 [...] 20 mg PO DAILY 06/15/22 01/08/24 History capsule,ext.wofgkdc69 hr multiphase montelukast 10 mg tablet 10 [...] failure Hyperlipidemia Atherosclerosis of coronary artery of [place] heart without angina pectoris Chest pain Noncompliance [...] to fe (more content not included)... Normal [facility] XR CHEST 2 VIEWSon XR CHEST 2 [...] 12/19/2023 5:22:25 PM Ordering Provider: LAURA WARREN [facility] FACILITY CODING SUMMARYon FACILITY CODING SUMMARY Facility Coding Facility Coding Summary [address] [address] [id number] 11/30/2023 Patient: DONTAE PARRA Sex: Male : [...] D.O. Procedures from Nurses/Facility: Blood Draw (CPT: 97748) 1 of 2 Facility Coding IV Hydration (CPT: 23843 X3) IV Push MORPHine IVP (CPT: 89969) IV Push Zofran IVP (CPT: 48907) IV Push Zofran IVP (CPT: 62718) IV Push Dilaudid IVP (CPT: 37229) IV Infusion CeFAZolin IVPB 1g/50ml PREMIX (CPT: 18073) SUPPLIES [facility] [address]-51 This is a partial abstract of information documented in the full record. Human Resources Benefits Manager must use independent judgment in selecting codes. CPT copyright 2022 [employer]. All Rights Reserved. 2 of 2 Normal [facility] MED ADMINISTRATION DETAILon 12-06-2023 MED ADMINISTRATION DETAIL Handkerchief Presser Medication Administration Record [address] [place] [address] [id number] 11/30/2023 Patient: DONTAE PARRA Sex: Male : 1975 Age: 48y MEASUREMENTS: Wt: 98.9 kg, Ht/Sae: 72.0 in, BMI: 29.57 ALLERGIES: isosorbide Medication Ordered Medication Administration Date/Time IV NS 0.9 % 1000 21:19 11/29 IV NS 0.9 % 1000 mL started in bag#1 1000 mL at Started mL (NOW x1) 999 mL/hr via Site# 1. Allergies verified and confirmed 5 rights. IV 21:19 11/30/2023 patency established. IV site checked: no pain, redness, or swelling. Javier Adams.Andre IV flushed thoroughly pre-medication administration. Information Stopped reviewed with patient. - 21:20 Javier Adams.NGabino 00:51 12/01/2023 Javier Adams.NGabino 00:51 10 Medication Discontinued: bag #1 completed upon Scanned transfer. Total amount infused: 1000 mL. IV patency established. IV site checked: no pain, redness, or swelling. IV flushed thoroughly post-medication administration. - 01:16 Lucas Escalante R.N. CeFAZolin IVPB 21:22 11/29 CeFAZolin IVPB 1g/50ml PREMIX 1 g started [...] 22:12 Lucas Escalante R.N. 1 of 2 Handkerchief Presser Medication Ordered Medication Administration Date/Time Dilaudid IVP 1 mg 21:16 11/29 Dilaudid IVP 1 mg given via Site# 1. Confirmed 5 Given (NOW x1) rights. IV patency established. IV site checked: no pain, redness, or 21:16 11/30/2023 swelling. IV flushed thoroughly pre-medication administration. IVP Suzanne AdamsNGabino given by nurse. Information reviewed with patient. - 21:17 Lucas Escalante R.N. 21:57 11/29 Medication Response: Pain is improving. - 01:17 Javier Adams.N. Zofran IVP 4 mg 21:17 11/29 Zofran [...] Scanned Ava, R.N. 2 of 2 Normal [facility] NURSES CLINICAL REPORT (NOTE S)on 12-06-2023 NURSES CLINICAL REPORT (NOTES) Nurse Narrative Nurse Clinical [address] [address] [phone] 11/30/2023 Patient: DONTAE PARRA Sex: Male : 1975 Age: 48y Disposition: Transfer to [facility] Disposition Decision Time: 00:02 12/01/2023 Departure Time: [...] 30 mg weekly . -- 19:58 11/30/23 IJM Huffman R.N. nitroglycerin 0.4 mg sublingual tablet: [...] -- 20:03 11/30/23 EDT Lexii Huffman R.N. clopidogreL 75 mg tablet: once a day . -- 20:03 11/30/23 EDT Lexii Huffman R.N. carvediloL 25 mg tablet: once a day . -- 20:03 11/30/23 EDT Lexii Huffman R.N. rosuvastatin 10 mg tablet: at bedtime . -- 20:04 11/30/23 EDT Lexii Huffman R.N. aspirin 81 mg capsule: once a day . -- 20:04 11/30/23 EDT Lexii Huffman R.N. Allergies: isosorbide -- 19:40 11/30/23 EDT Lexii Huffman R.N. Problems: Hypertension -- 19:40 11/30/23 WAYNET Lexii Huffman R.N. CVA - Cerebrovascular Accident -- 19:40 11/30/23 EDT Lexii Huffman R.N. Myocardial Infarction -- 19:41 11/30/23 EDT Lexii Huffman R.N. Asthma -- 19:55 11/30/23 EDT Lexii Huffman R.N. COPD - Chronic Obstructive Pulmonary Disease -- 19:55 11/30/23 EDT Lexii Huffman R.N. 19:36 11/30/23. Preferred pharmacy: [facility] -- 19:48 11/30/23 EDT Lexii Huffman R.N. ADDITIONAL SURGERIES: Cardiac Procedures -- 19:41 11/30/23 EDT Lexii Huffman R.N. Major Trauma History Arrived by EMS. Historian: patient. Acuity: LEVEL 2. 19:36 11/30/23. Triage time: 19:36 11/30/2023. Mechanism of injury: Fell: (from tree stand approx 17-15 feet). Occurred 18:30 11/30/2023. Patient is on anticoagulation (blood thinner) therapy: includes plavix. EMS Treatment PRIMARY CLASS TEACHER: 2 of 6 Nurse Narrative EMS report reviewed. See report. SOCIAL HX: History of tobacco use (02/20). No alcohol use or drug use. The patient has not traveled outside the [place] ABUSE ASSESSMENT: The patient answered "yes" to the question(s) "Do you feel safe in your home?" and "no" to the question(s) "Are you afraid to go home?". Identification band and allergy band on patient. SELF HARM ASSESSMENT: Self harm assessment was performed. The patient answered "no" to the question(s) "Have you recently felt down, depressed, or hopeless?" and "Do you have thoughts of harming or killing yourself?". FALL RISK ASSESSMENT: Fall risk assessment completed. [...] Pain leve (more content not included)... Normal [facility] ORDER SHEET (CPOE ONLY)on ORDER SHEET (CPOE ONLY) Order Sheet Order Sheet [address] [place] [address] [id number] 11/30/2023 Patient: DONTAE PARRA Sex: Male : 1975 Age: 48y MEASUREMENTS: Wt: 98.9 kg, Ht/Sae: 72.0 in, BMI: 29.57 ALLERGIES: isosorbide MEDICATION/IV/DRIP/FL UID ORDERS Order Description Priority Entered Acknowledged Completed IV NS 0.9 %1000 mL (NOW x1) 20:23 11/30/2023 20:57 21:20 Mumtaz Holley D.O. 11/30/2023 11/30/2023 Daija Adams R.N. CeFAZolin IVPB 1g/50ml 20:23 11/30/2023 20:57 21:22 PREMIX1 g at 100 mL/hr (NOW Mumtaz Holley D.O. 11/30/2023 11/30/2023 x1) Daija Adams RGabinoNGabino Tdap IM DIPTH/TETANUS/PERT 20:25 11/30/2023 Cancelled: Treatment not > 7yr and older0.5 mL (NOW x1) Mumtaz Holley D.O. Indicated, pt UTD on Tdap 21:22 EDT Lucas Escalante RGabinoNGabino Dilaudid IVP1 mg (NOW x1) 20:40 11/30/2023 20:57 21:17 Mumtaz Holley D.O. 11/30/2023 11/30/2023 Daija Adams RGabinoNGabino Zofran IVP4 mg (NOW x1) 20:40 11/30/2023 20:57 21:17 Mumtaz Holley D.O. 11/30/2023 11/30/2023 Daija Adams, R.NGabino 1 of 4 Order Sheet Reason for ordering with alerts: Clinical consideration given --20:40 11/30/2023 Mumtaz Holley D.O. MORPHine IVP4 mg (NOW x1, 01:02 12/01/2023 01:02 01:08 HIGH ALERT MEDICATION) Mumtaz Holley D.O. 12/01/2023 12/01/2023 Daija Adams, R.NGabino Reason for ordering with alerts: Clinical [...] 21:18 11/30/2023 Paul Lopez R.N. Seth Lapp RKarlene Urinalysis Stat Stat 20:23 11/30/2023 Cancelled: Unable to Collect Mumtaz Holley D.O. 01:14 EDT Lucas Escalante R.N. Lipase Stat Stat 20:23 11/30/2023 20:47 11/30/2023 21:18 11/30/2023 Paul Lopez R.N. Seth Lapp RKarlene Troponin-I (Sched: q3h Stat 20:25 11/30/2023 20:47 11/30/2023 21:19 11/30/2023 X2); Stat 1 of 2 Paul Lopez R.N. Seth Lapp RGabinoNGabino Troponin-I (Sched: q3h Stat 20:25 11/30/2023 20:47 11/30/2023 00:44 12/01/2023 X2); Stat 2 of 2 Paul Lopez R.N. Seth Lapp, R.N. 2 of 4 Order Sheet DIAGNOSTIC STUDY ORDERS Order Description Priority Entered Acknowledged Completed CT Brain wo IV Cont Stat Stat 20:23 11/30/2023 20:47 21:19 Mumtaz Holley D.O. 11/30/2023 11/30/2023 Lucas Ava, R.N. Lucas Ava, R.N. Reason for Study: Head Injury CT C-Spine wo IV Cont Stat Stat 20:23 11/30/2023 20:47 21:19 Mumtaz Holley D.O. 11/30/2023 11/30/2023 Lucas Escalante, R.N. Lucas Ava, R.N. Reason for Study: Trauma/Injury CT CAP w IV Cont Stat Stat 20:23 11/30/2023 20:47 21:19 Mumtaz Holley D.O. 11/30/2023 11/30/2023 Lucas Escalante, R.N. Lucas Ava, R.N. Reason for Study: Trauma/Injury STAFF ORDERS Order Description Priority Entered Acknowledged Collected Completed Pulse Oximeter 20:23 11/30/2023 20:47 11/30/2023 21:18 11/30/2023 Paul Lopez, R.N. Lucas Whaleyp, R.N. Slip Mixer 20:23 11/30/2023 20:47 11/30/2023 21:18 11/30/2023 Paul Lopez, R.N. Lucas Whaleyp, R.N. Oxygen in ER 20:23 11/30/2023 20:47 11/30/2023 21:19 11/30/2023 Paul Lopez, R.N. Lucas Whaleyp, R.N. EKG 20:25 11/30/2023 20:47 11/30/2023 21:19 11/30/2023 Paul Lopez, R.N. Lucas Escalante, R.N. 3 of 4 Order Sheet [Electronically signed by Mumtaz Holley D.O. (12/06/2023 21:04 EDT)] 4 of 4 Normal [facility] PHYS CLINICAL REPORT AND ADD ENon 12-06-2023 PHYS CLINICAL REPORT AND ADDEN Narrative Physician Clinical Narrative [facility] [address] [place] [address] [id number] 11/30/2023 Patient: DONTAE PARRA Sex: Male : 1975 Age: 48y Disposition: Transfer to [facility] Disposition Decision Time: 00:02 12/01/2023 Departure Time: [...] EDT 10 (more content not included)... Normal [facility] PHYS CODING SUMMARY GUEST SERVICE AGENT AB Pastor 12-06-2023 PHYS CODING SUMMARY GUEST SERVICE AGENT ABST Coding Summary Coding Summary [address] [address] [id number] 11/30/2023 Patient: DONTAE PARRA Sex: Male : 1975 Age: 48y ICD-10 Codes M54.9: Dorsalgia, unspecified M54.6: Pain in thoracic spine W14.xxxA: Fall from tree, initial encounter CPT Codes EKG (Insufficient documentation to return CPT code.) This is a partial abstract of information documented in the full record. Human Resources Benefits Manager must use independent judgment in selecting codes. CPT copyright 2022 [employer]. All Rights Reserved. 1 of 1 Normal [facility] SUPER BILLon 12-06-2023 SUPER BILL [address] [address] [id number] 11/30/2023 Patient: DONTAE PARRA Sex: Male : 1975 Age: 48y Facility Professional Category Item Description Code Code Quantity Fee Total Drugs Normal Saline 143004 1 $0.00 $0.00 1000cc (318175) Nurse/E/M EMERGENCY 320551 1 $0.00 $0.00 DEPT VISIT HIGH SEVERITYFUNCJ (21813-14) Nurse/IV/IM/Infusions Drip/IVPB initial 775937 1 $0.00 $0.00 (50591) Nurse/IV/IM/Infusions Hydration 876838 3 $0.00 $0.00 additional hour (54214) Nurse/IV/IM/Infusions IVP additional 872099 3 $0.00 $0.00 push (48993) Nurse/IV/IM/Infusions IVP same med 780985 1 $0.00 $0.00 (31 min apart) (99635) Grand $0.00 Total 1 of 2 Superbill Providers Mumtaz Holley D.O. Chief Complaint BACK [...] from tree, initial encounter 2 of 2 [facility] VISIT SUMMARYon 12-06-2023 VISIT SUMMARY Visit Overview Visit Overview [address] [place] [address] [id number] 11/30/2023 Patient: DONTAE PARRA Sex: Male : [...] THORACIC AORTIC DISSECTION 4 of 4 Normal [facility] [place] CBC W Auto Differential pane l (Bld)on 12-01-2023 Basophils (Bld) [#/Vol] 0.0 10*3/uL 0.0 - 0.2 10*3/uL [facility] Basophils/100 WBC (Bld) 0.1 % 0.0 - 2.0 % [facility] Eosinophils (Bld) [#/Vol] 0.0 10*3/uL 0. 0 - 0.5 10*3/uL [facility] Eosinophils/100 WBC (Bld) 0.3 % 0. 0 - 6.0 % [facility] Erythrocyte distribution width (RBC) [Ratio] 14.0 % 11.5 - 15.0 % [facility] Hematocrit (Bld) [Volume fraction] 38.9 % Low 40.0 - 52.0 % [facility] Hemoglobin (Bld) [Mass/Vol] 13.5 g/dL 13.0 - 18.0 g/dL [facility] Immature granulocytes (Bld) [#/Vol] 0.0 10*3/uL NINF - 0.1 10*3/uL [facility] Immature granulocytes/100 WBC (Bld) 0.4 % 0.0 - 2.0 % [facility] Interpretation and review of laboratory results Abnormal [facility] th Lymphocytes (Bld) [#/Vol] 1.3 10*3/uL 1. 0 - 4.3 10*3/uL [facility] Lymphocytes/100 WBC (Bld) 16.4 % 15 .0 - 45.0 % [facility] MCH (RBC) [Entitic mass] 30.8 pg 26. 0 - 34.0 pg [facility] MCHC (RBC) [Mass/Vol] 34.7 % 30.5 - 36.0 % [facility] MCV (RBC) [Entitic vol] 88.6 fL 77.0 - 99.0 fL [facility] Monocytes (Bld) [#/Vol] 0.6 10*3/uL 0.0 - 0.9 10*3/uL [facility] Monocytes/100 WBC (Bld) 7.4 % 5.0 - 13.0 % [facility] Neutrophils (Bld) [#/Vol] 5.8 10*3/uL 1. 8 - 7.5 10*3/uL [facility] Neutrophils/100 WBC (Bld) 75.4 % 38 .0 - 82.0 % [facility] Nucleated RBC/100 WBC (Bld) [Ratio] 0.0 % [facility] Platelet mean volume (Bld) [Entitic vol] 8.5 fL Low 9.0 - 12.7 fL [facility] Platelets (Bld) [#/Vol] 212 10*3/uL 140 - 440 10*3/uL [facility] RBC (Bld) [#/Vol] 4.39 10*6/uL Low 4.40 - 5.90 10*6/uL [facility] WBC (Bld) [#/Vol] 7.7 10*3/uL 3.6 - 10.7 10*3/uL [facility] CBC WITH AUTO DIFFERENTIALon 12-01-2023 Basophils (Bld) [#/Vol] 0.0 10*3/uL Normal 0.0-0.2 [facility] Comment on above: Performed By: #### L [id number] #### Forensics Team Director: NEISHA DELGADO ([id number]) [facility] ([facility]) [address] [place] [address] Basophils/100 WBC (Bld) 0.1 % Normal 0.0-2.0 [facility] Comment on above: Performed By: #### L [id number] #### Forensics Team Director: NEISHA DELGADO ([id number]) [facility] ([facility]) [address] [place] [address] [place] Eosinophils (Bld) [#/Vol] 0.0 10*3/uL Normal 0.0-0.5 [facility] Comment on above: Performed By: #### L [id number] #### Forensics Team Director: NEISHA DELGADO ([id number]) [facility] [address] [place] [address] [place] Eosinophils/100 WBC (Bld) 0.3 % Normal 0.0-6.0 [facility] Comment on above: Performed By: #### L [id number] #### Forensics Team Director: NEISHA DELGADO ([id number]) [facility]) [address] [place] [address] Erythrocyte distribution width (RBC) [Ratio] 14.0 % Normal 11.5-15.0 [facility] Comment on above: Performed By: #### L [id number] #### Forensics Team Director: NEISHA DELGADO ([id number]) [facility]) [address] [place] [address] Hematocrit (Bld) [Volume fraction] 38.9 % Low 40.0-52.0 [facility] Comment on above: Performed By: #### L [id number] #### Forensics Team Director: NEISHA DELGADO ([id number]) [address] Hemoglobin (Bld) [Mass/Vol] 13.5 g/dL Normal 13.0-18.0 [facility] Comment on above: Performed By: #### L [id number] #### Forensics Team Director: NEISHA DELGADO ([id number]) [facility]) [address] [place] [address] IMMATURE GRANS % 0.4 % Normal 0.0-2.0 [facility] Comment on above: Performed By: #### L [id number] #### Forensics Team Director: NEISHA DELGADO ([id number]) [facility]) [address] [place] [address] IMMATURE GRANS ABSOLUTE 0.0 10*3/uL Normal <0.1 [facility] Comment on above: Performed By: #### L AB17 #### Forensics Team Director: NEISHA DELGADO ([id number]) [facility]) [address] [place] [address] Lymphocytes (Bld) [#/Vol] 1.3 10*3/uL Normal 1.0-4.3 [facility] Comment on above: Performed By: #### L AB17 #### Forensics Team Director: NEISHA DELGADO ([id number]) [facility] ([facility]) [address] [place] [address] Lymphocytes/100 WBC (Bld) 16.4 % Normal 15.0-45.0 [facility] Comment on above: Performed By: #### L [id number] #### Forensics Team Director: NEISHA DELGADO ([id number]) [facility] ([facility]) [address] [place] [address] MCH (RBC) [Entitic mass] 30.8 pg Normal 26.0-34.0 [facility] Comment on above: Performed By: #### L [id number] #### Forensics Team Director: NEISHA DELGADO ([id number]) [facility]) [address] [place] [address] MCHC 34.7 % Normal 30.5-36.0 [facility] Comment on above: Performed By: #### L AB17 #### Forensics Team Director: NEISHA DELGADO ([id number]) [facility] ([facility]) [address] [place] [address] MCV (RBC) [Entitic vol] 88.6 fL Normal 77.0-99.0 [facility] Comment on above: Performed By: #### L [id number] #### Forensics Team Director: NEISHA DELGADO ([id number]) [facility]) [address] [place] [address] Monocytes (Bld) [#/Vol] 0.6 10*3/uL Normal 0.0-0.9 [facility] Comment on above: Performed By: #### L AB17 #### Forensics Team Director: NEISHA DELGADO ([id number]) [facility] ([facility]) [address] [place] [address] Monocytes/100 WBC (Bld) 7.4 % Normal 5.0-13.0 [facility] Comment on above: Performed By: #### L AB17 #### Forensics Team Director: NEISHA DELGADO ([id number]) [facility] ([facility]) [address] [place] [address] NEUTROPHILS ABSOLUTE 5.8 10*3/uL Normal 1.8-7.5 [facility] Comment on above: Performed By: #### L AB17 #### Forensics Team Director: NEISHA DELGADO ([phone]) [facility] ([facility]) [address] [place] [address] Neutrophils/100 WBC (Bld) 75.4 % Normal 38.0-82.0 [facility] Comment on above: Performed By: #### L [id number] #### Forensics Team Director: NEISHA DELGADO ([id number]) [facility] ([facility]) [address] [place] [address] NRBC 0.0 /100 WBCs Normal 0.0-2.0 [facility] Comment on above: Performed By: #### L [id number] #### Forensics Team Director: NEISHA DELGADO ([id number]) [facility] ([facility]) [address] [place] [address] Platelet mean volume (Bld) [Entitic vol] 8.5 fL Low 9.0-12.7 [facility] Comment on above: Performed By: #### L [id number] #### Forensics Team Director: NEISHA DELGADO ([id number]) [facility] ([facility]) [address] [place] [address] [place] Platelets (Bld) [#/Vol] 212 10*3/uL Normal 140-440 [facility] Comment on above: Performed By: #### L AB17 #### Forensics Team Director: NEISHA DELGADO ([id number]) [facility] ([facility]) [address] [place] [address] [place] RBC (Bld) [#/Vol] 4.39 10*6/uL Low 4.40-5.90 [facility] Comment on above: Performed By: #### L [id number] #### Forensics Team Director: NEISHA DELGADO ([id number]) [facility] ([facility]) [address] [place] [address] WBC (Bld) [#/Vol] 7.7 10*3/uL Normal 3.6-10.7 [facility] Comment on above: Performed By: #### L [id number] #### Forensics Team Director: NEISHA DELGADO ([id number]) [facility] ([facility]) [address] [place] [address] COMPREHENSIVE METABOLIC PANE Shilo 12-01-2023 Albumin [Mass/Vol] 4.2 g/dL Normal 3.5-5.0 [facility] Comment on above: Performed By: #### L [id number] #### Forensics Team Director: NEISHA DELGADO ([id number]) [facility]) [address] [place] [address] ALP [Catalytic activity/Vol] 55 U/L Normal 38-126 [facility] Comment on above: Performed By: #### L [id number] #### Forensics Team Director: NEISHA DELGADO ([id number]) [facility] ([facility]) [address] [place] [address] ALT [Catalytic activity/Vol] 25 U/L Normal 0-49 [facility] Comment on above: Performed By: #### L [id number] #### Forensics Team Director: NEISHA DELGADO ([id number]) [facility] ([facility]) [address] [place] [address] Anion gap [Moles/Vol] 7 mmol/L Normal 3-13 [facility] Comment on above: Performed By: #### L [id number] #### Forensics Team Director: NEISHA DELGADO ([id number]) [facility] ([facility]) [address] [place] [address] AST [Catalytic activity/Vol] 32 U/L Normal 15-46 [facility] Comment on above: Performed By: #### L [id number] #### Forensics Team Director: NEISHA DELGADO ([id number]) [facility] ([facility]) [address] [place] [address] Bilirubin [Mass/Vol] 1.7 mg/dL High 0.2-1.3 [facility] Comment on above: Performed By: #### L [id number] #### Forensics Team Director: NEISHA DELGADO ([id number]) [facility] ([facility]) [address] [place] [address] [place] Calcium [Mass/Vol] 9.2 mg/dL Normal 8.4-10.4 [facility] Comment on above: Performed By: #### L [id number] #### Forensics Team Director: NEISHA DELGADO ([id number]) [facility] [address] [place] [address] Chloride [Moles/Vol] 104 mmol/L Normal 98-107 [facility] Comment on above: Performed By: #### L AB17 #### Forensics Team Director: NEISHA DELGADO ([id number]) [facility]) [address] [place] [address] CO2 [Moles/Vol] 24 mmol/L Normal 22-30 [facility] Comment on above: Performed By: #### L AB17 #### Forensics Team Director: NEISHA DELGADO ([id number]) [facility]) [address] [place] [address] Creatinine [Mass/Vol] 1.11 mg/dL Normal 0.66-1.25 [facility] Comment on above: Performed By: #### L AB17 #### Forensics Team Director: NEISHA DELGADO ([id number]) [facility] ([facility]) [address] [place] [address] GLOMERULAR FILTRATION RATE ML/MIN/1.73 SQ M.PREDICTED 81.4 mL/min/1.73m*2 Normal >60.0 [facility] Comment on above: Result Comment: Calc ulation based on the Chronic Kidney Disease Epidemiology Collaboration (CKD-EPI) equation refit without adjustment for race ORDER COMMENTS: Slightly Hemolyzed. Interpret ALBUMIN, ALKALINE PHOSPHATASE, AST, POTASSIUM, and TOTAL PROTEIN with caution. Performed By: #### L [id number] #### Forensics Team Director: NEISHA DELGADO ([id number]) [facility] [address] [place] [address] [place] Glucose [Mass/Vol] 121 mg/dL High 70-100 [facility] Comment on above: Performed By: #### L AB17 #### Forensics Team Director: NEISHA [id number]) [facility] [address] [place] [address] Potassium [Moles/Vol] 4.1 mmol/L Normal 3.5-5.1 [facility] Comment on above: Performed By: #### L AB17 #### Forensics Team Director: NEISHA DELGADO ([id number]) [facility] ([facility]) [address] [place] [address] Protein [Mass/Vol] 7.2 g/dL Normal 6.3-8.2 [facility] Comment on above: Performed By: #### L AB17 #### Forensics Team Director: NEISHA DELGADO ([id number]) [facility] ([facility]) [address] [place] [address] Sodium [Moles/Vol] 135 mmol/L Normal 135-145 [facility] Comment on above: Performed By: #### L AB17 #### Forensics Team Director: NEISHA DELGADO ([id number]) [facility] [address] [place] [address] Urea nitrogen [Mass/Vol] 15 mg/dL Normal 9-20 [facility] Comment on above: Performed By: #### L [id number] #### Forensics Team Director: NEISHA DELGADO ([id number]) [facility] ([facility]) [address] [place] [address] CT Abdomen and Pelvis W cont rast [...] MD Electronically Signed Date/Time: 12/01/2023 5:02 AM [facility] Patient Name: DONTAE PARRA : 1975 [...] then post processed by myself on the [employer] workstation, with reconstructed 3D volume rendered and [...] 12/01/2023 [facility] 1975 [id number] Exam Date/Time: 12/01/2023 04:44 Procedure: CT CHEST [...] then post processed by myself on the [employer] workstation, with reconstructed 3D volume rendered and [...] Electronically Signed Date/Time: 12/01/2023 5:02 AM EDT [facility] Radiology Study observation (narrative) [facility] CT Abdomen and Pelvis W cont rast IVOrdered By: Yony Rogers on 12-01-2023 [facility] [employer] Work Phone: CT CHEST ABDOMEN PELVIS RASHID [...] then post processed by myself on the [employer] workstation, with reconstructed 3D volume rendered and [...] phase, repeated just the chest region. Normal [facility] Comprehensive metabolic 1998 panelon 12-01-2023 Albumin [Mass/Vol] 4.2 g/dL 3.5 - 5.0 g/dL [facility] ALP [Catalytic activity/Vol] 55 U/L 38 - 126 U/L [facility] ALT [Catalytic activity/Vol] 25 U/L 0 - 49 U/L [facility] Anion gap [Moles/Vol] 7 mmol/L 3 - 13 mmol/L [facility] AST [Catalytic activity/Vol] 32 U/L 15 - 46 U/L [facility] Bilirubin [Mass/Vol] 1.7 mg/dL High 0.2 - 1 .3 mg/dL [facility] Calcium [Mass/Vol] 9.2 mg/dL 8.4 - 10. 4 mg/dL [facility] Chloride [Moles/Vol] 104 mmol/L 98 - 10 7 mmol/L [facility] CO2 [Moles/Vol] 24 mmol/L 22 - 30 mmol/L [facility] Creatinine [Mass/Vol] 1.11 mg/dL 0.66 - 1.25 mg/dL [facility] GFR/1.73 sq M.predicted (S/P/Bld) [Vol rate/Area] 81.4 mL/min - PINF [facility] Comment on above: Calculation based on the Chronic Kidney Disease Epidemiology Collaboration (CKD-EPI) equation refit without adjustment for race Glucose [Mass/Vol] 121 mg/dL High 70 - 100 mg/dL [facility] Interpretation and review of laboratory results Abnormal [facility] Potassium [Moles/Vol] 4.1 mmol/L 3.5 - 5.1 mmol/L [facility] Protein [Mass/Vol] 7.2 g/dL 6.3 - 8.2 g/dL [facility] Sodium [Moles/Vol] 135 mmol/L 135 - 145 mmol/L [facility] Urea nitrogen [Mass/Vol] 15 mg/dL 9 - 20 mg/dL [facility] Slightly Hemolyzed. Interpret ALBUMIN, ALKALINE PHOSPHATASE, AST, POTASSIUM, and TOTAL PROTEIN with caution. [facility] Consulton 12-01-2023 Consult Ortho Spine Consult Patient: Dontae Parra Date of : 1975 Acct: [id number] PCP: Dylan Magallon Date of Admission: 12/01/2023 [...] landed mostly on his low back and butt". At this time the patient is endorsing [...] artery disease) COPD (chronic obstructive pulmonary disease) ([facility]) Emphysema of lung ([facility]) 2010 Erectile dysfunction GERD (gastroesophageal reflux disease) History of echocardiogram 10/20/2015 EF 50%, trivial MR History of percutaneous coronary intervention 02/11/2016 RICHY - prox RCA, RICHY - mid RCA, patent ramus stent, EF 50-55% Hyperlipidemia Hypertension Hypotestosteronism Presence of stent in coronary artery Restless leg STEMI (ST elevation myocardial infarction) ([facility]) 09/2015 posterior wall Tobacco use disorder Past [...] Tobacco comments: (more content not included)... Normal [facility] ED Nursing Noteon 12-01-2023 ED Nursing Note Patient ambulatory t o bathroom with steady gait Jaz Ayoub RN 12/01/23 0952 [facility] ED Nursing Note Provider at bedside for constanzaal Jaz Ayoub RN 12/01/23 0834 [facility] ED Nursing Note Patient sat up eatin g breakfast at this time, provided with extra juice per request, family at bedside, denies current needs at this time, call bernal within reach, care is ongoing Jaz Ayoub RN 12/01/23 0805 [facility] ED Nursing Note Dr. Jones at bedside Jaz Ayoub RN 12/01/23 0742 [facility] ED Provider Noteon ED Provider Note EMERGENCY DEPARTMENT ENCOUNTER Pt Name: Dontae Parra Birthdate 1975 Date of evaluation: 12/01/2023 ED Provider: Missy Jones DO CHIEF COMPLAINT Chief Complaint Patient presents with Abdominal Injury Transfer from [place] for trauma consult. Fall from tree stand 15-17 feet. 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 [facility] HISTORY OF PRESENT ILLNESS (Location/Symptom, Timing/Onset, Context/Setting, [...] artery disease) COPD (chronic obstructive pulmonary disease) ([facility]) Emphysema of lung ([facility]) 2010 Erectile dysfunction GERD (gastroesophageal reflux disease) History of echocardiogram 10/20/2015 EF 50%, trivial MR History of percutaneous coronary intervention 02/11/2016 RICHY - prox RCA, RICHY - mid RCA, patent ramus stent, EF 50-55% Hyperlipidemia Hypertension Hypotestosteronism Presence of stent in coronary artery Restless leg STEMI (ST elevation myocardial infarction) ([facility]) 09/2015 posterior wall Tobacco use disorder SURGICAL [...] fluid drai (more content not included)... Normal [facility] ED Provider Note Emergency Department Encounter [...] that sys (more content not included)... Normal [facility] Nursing Noteon 12-01-2023 Nursing Note Pt discharging at this time. All belongings collected. Discharge packet reviewed with all questions answered. Normal [facility] XR Ankle - left 3 Viewson Patient Name: DONTAE PARRA : 1975 Exam Date/Time: 12/01/2023 05:57 Procedure: XR ANKLE 3+ VIEWS LEFT Ordering Provider: THOMAS AKASH Reason For Exam: Trauma HISTORY: Trauma three views left ankle shows no evidence of fracture. Report Dictated on Electronically Signed By: Yoyn Rogers MD Electronically Signed Date/Time: 12/01/2023 6:08 AM T [facility] Yony Rogers MD - 12/01/2023 Patient Name: DONTAE PARRA : 1975 Exam Date/Time: 12/01/2023 05:57 Procedure: XR ANKLE 3+ VIEWS LEFT Ordering Provider: THOMAS AKASH Reason For Exam: Trauma HISTORY: Trauma three views left ankle shows no evidence of fracture. Report Dictated on Electronically Signed By: Yony Rogers MD Electronically Signed Date/Time: 12/01/2023 6:08 AM T [facility] Radiology Study observation (narrative) [facility] XR Shoulder - right 2 Viewso n 12-01-2023 1. Negative examination of the right shoulder. Report Dictated on Electronically Signed By: Yony Rogers MD Electronically Signed Date/Time: 12/01/2023 6:08 AM T [facility] Patient Name: DONTAE PARRA : [...] 12/01/2023 [facility] Name: [facility] 1975 [id number] Exam Date/Time: 12/01/2023 05:56 Procedure: XR SHOULDER [...] Electronically Signed Date/Time: 12/01/2023 6:08 AM EDT [facility] Radiology Study observation (narrative) [facility] CBC + DIFFon 11-30-2023 Baso # 0.03 x10EE3/UL Normal 0.00 - 0.10 [facility] [place] Comment on above: Performed By: #### 2 [id number] ####[facility] [place],[address] [place] [address]65[address] Basophils/100 WBC (Bld) 0.3 % Normal 0.0 - 2.0 [facility] Comment on above: Performed By: #### 2 [id number] ####[facility] [place],[address] [place] [address] 27171 CBC + DIFF Normal [facility] Comment on above: Result Comment: CBC- COMPLETE BLOOD COUNT Performed By: #### 2 [id number] ####[facility] [place],[address] [place] [address] 36485 EO # 0.04 x10EE3/UL Normal 0.00 - 0.50 [facility] Comment on above: Performed By: #### 2 [id number] ####[facility] [place],[address] [place], [place] [id number] Eosinophils/100 WBC (Bld) 0.4 % Normal 0.0 - 7.0 [facility] Comment on above: Performed By: #### 2 [id number] ####[facility] [place],[address] [place] [address] Erythrocyte distribution width (RBC) [Ratio] 13.5 % Normal 12.0 - 15.6 [facility] Comment on above: Performed By: #### 2 55534 ####[place] [address] Hematocrit (Bld) [Volume fraction] 43.5 % Normal 40.0 - 52.0 [facility] Comment on above: Performed By: #### 2 49005 ####[place] [address] Hemoglobin (Bld) [Mass/Vol] 14.7 g/dL Normal 13.0 - 17.5 [facility] Comment on above: Performed By: #### 2 35298 ####[place] [address] Lymph # 1.47 x10EE3/UL Normal 0.80 - 2.80 [facility] Comment on above: Performed By: #### 2 97257 ####[place] [address] Lymphocytes/100 WBC (Bld) 13.9 % Low 20 .0 - 45.0 [facility] Comment on above: Performed By: #### 2 06151 ####[place] [address] MANUAL DIFF N/A Normal [facility] Comment on above: Performed By: #### 2 81916 ####[place] [address] MCH (RBC) [Entitic mass] 31 pg Normal 27 - 33 [facility] Comment on above: Performed By: #### 2 92023 ####[facility] [place],[address] [place] [address]33 MCHC 34 X10 3 Normal 32 - 36 [facility] Comment on above: Performed By: #### 2 67774 ####[facility] [place],[address] [place] [address] 45367 MCV (RBC) [Entitic vol] 91 fL Normal 81 - 98 [facility] Comment on above: Performed By: #### 2 79884 ####[facility] [place],[address] [place] [address]83 [place] # 0.70 x10EE3/UL Normal 0.20 - 1.00 [facility] Comment on above: Performed By: #### 2 13978 ####[facility] [place],[address] [place] [address]138 MONOS % 6.6 % Normal 0.0 - 10.0 [facility] Comment on above: Performed By: #### 2 93516 ####[facility] [place],[address] [place] [address] 69203 Morphology Nakul (Bld) [Interp] SEE BELOW Normal [facility] Comment on above: Performed By: #### 2 74258 ####[facility] [place],[address] [place] [address] [id number] Neut # 8.37 x10EE3/UL High 1.50 - 7.10 [facility] [place] Comment on above: Performed By: #### 2 [id number] ####[facility] [place],[address] [place] [address] 83351 Neutrophils/100 WBC (Bld) 78.9 % High 46 .0 - 76.0 [facility] [place] Comment on above: Performed By: #### 2 65074 ####[facility] [place],[address] [place] [address] 76088 PLATELET 236 x10EE3/UL Normal 150 - 450 [facility] Comment on above: Performed By: #### 2 92762 ####[facility] [place],[address] [place] [address] 77146 Platelet mean volume (Bld) [Entitic vol] 6.1 fL Low 6.4 - 10.5 [facility] [place] Comment on above: Result Comment: AUTO MATED DIFFERENTIAL Performed By: #### 2 19085 ####[facility] [place],[address] [place] [address] 97582 PLT EST NORMAL Normal [facility] [place] Comment on above: Performed By: #### 2 16554 ####[facility] [place],[address] [place] [address] 06414 RBC 4.78 x 10EE6/UL Normal 4.50 - 6.00 [facility] [place] Comment on above: Performed By: #### 2 67668 ####[facility] [place],[address] [place] [address] 48218 WBC 10.6 x 10EE3/UL Normal 4.5 - 10.8 [facility] Comment on above: Performed By: #### 2 31484 ####[facility] [place],[address] [place] [address] 31650 CMP with eGFRon 11-30-2023 AGE 48 years Normal [facility] [place] Comment on above: Performed By: #### 2 68885 ####[facility] [place],[address] [place] [address] 81824 Albumin [Mass/Vol] 3.7 g/dL Normal 3.4 - 5.0 [facility] Comment on above: Performed By: #### 2 88404 ####[facility] [place],[address] [place] [address] 82437 Albumin/Globulin [Mass ratio] 1.1 {ratio} Normal 0.9 - 1.6 [facility] [place] Comment on above: Performed By: #### 2 60748 ####[facility] [place],[address] [place] [address] 57001 ALK PHOS 91 U/L Normal 46 - 116 [facility] [place] Comment on above: Performed By: #### 2 24955 ####[facility] [place],[address] [place] [address] 11568 ALT [Catalytic activity/Vol] 32 U/L Normal 16 - 63 [facility] [place] Comment on above: Performed By: #### 2 67478 ####[facility] [place],[address] [place] [address] 35781 Anion gap [Moles/Vol] 9 mmol/L Low 10 - 20 [facility] Comment on above: Performed By: #### 2 17015 ####[facility] [place],[address] [place] [address] 30562 AST [Catalytic activity/Vol] 25 U/L Normal 15 - 37 [facility] [place] Comment on above: Performed By: #### 2 77239 ####[facility] [place],[address] [place] [address] 80943 B/C RATIO 13 ratio Normal 0 - 30 [facility] [place] Comment on above: Performed By: #### 2 65224 ####[facility] [place],[address] [place] [address] 51126 Bilirubin [Mass/Vol] 0.6 mg/dL Normal 0.2 - 1.0 [facility] [place] Comment on above: Performed By: #### 2 45558 ####[facility] [place],[address] [place] [address] 62387 Calcium [Mass/Vol] 9.0 mg/dL Normal 8.5 - 10.1 [facility] Comment on above: Performed By: #### 2 05366 ####[facility] [place],[address] [place] [address] 00129 Chloride [Moles/Vol] 105 mmol/L Normal 98 - 107 [facility] [place] Comment on above: Performed By: #### 2 10834 ####[facility] [place],[address] [place] [address] 38800 CMP with eGFR Normal [facility] Comment on above: Result Comment: COMP REHENSIVE METABOLIC PANEL Performed By: #### 2 15978 ####[facility] [place],[address] [place] [address] 53426 CO2 [Moles/Vol] 28.6 mmol/L Normal 21.0 - 32.0 [facility] [place] Comment on above: Performed By: #### 2 01204 ####[facility] [place],[address] [place] [address] 40890 Creatinine [Mass/Vol] 1.40 mg/dL High 0.70 - 1.30 [facility] [place] Comment on above: Performed By: #### 2 87692 ####[facility] [place],[address] [place] [address] 39031 eGFR 54 ML/MINUTE Low 60 - 999 [facility] Comment on above: Performed By: #### 2 79036 ####[address] [address] GFR/1.73 sq M.predicted among non-blacks MDRD (S/P/Bld) [Vol rate/Area] mL/min/{1.73_m2} Normal 60 - 999 [facility] [place] Comment on above: Result Comment: ACCO RDING TO THE NATIONAL KIDNEY DISEASE EDUCATION PROGRAM(NKDE), A NORMAL eGFR IS A VALUE GREATER THAN OR EQUAL TO 60 ML/MIN/1.73 SQ METERS. CHRONIC KIDNEY DISEASE: <60mL/MIN/1.73 SQ METERS KIDNEY FAILURE: <15mL/MIN/1.73 SQ METERS THIS TEST SHOULD ONLY BE USED FOR PATIENTS 18 YEARS OF AGE AND OLDER. Performed By: #### 2 19065 ####[facility] [place],[address] [place] [address] 12242 Globulin (S) [Mass/Vol] 3.4 g/dL Normal 1.5 - 3.8 [facility] Comment on above: Performed By: #### 2 71151 ####[facility] [place],[address] [place] [address] 89716 Glucose [Mass/Vol] 100 mg/dL Normal 74 - 106 [facility] Comment on above: Performed By: #### 2 18240 ####[facility] [place],[address] [place] [address] 32854 Potassium [Moles/Vol] 3.8 mmol/L Normal 3.5 - 5.1 [facility] Comment on above: Performed By: #### 2 41834 ####[facility] [place],[address] [place] [address] 79814 Protein [Mass/Vol] 7.1 g/dL Normal 6.4 - 8.2 [facility] Comment on above: Performed By: #### 2 06877 ####[facility] [place],[address] [place] [address] 15677 Sodium [Moles/Vol] 139 mmol/L Normal 136 - 145 [facility] Comment on above: Performed By: #### 2 72759 ####[facility] [place],[address] [place] [address] 13199 Urea nitrogen [Mass/Vol] 18 mg/dL Normal 7 - 18 [facility] [place] Comment on above: Performed By: #### 2 64275 ####[facility] [place],[address] [place] [address] BRAIN W/O CONTRAST 11-19 CT BRAIN W/O CONTRAST [place] [address] Patient: DONTAE PARRA Phone#: : 1975 Age: 48 Gender: M Pt. Type: ER Account: [id number] Location: 052 Ordering: MUMTAZ HOLLEY Exam Date: 11/30/2023/20:55 Family Phys: Charge Code: [id number] Physician: [place] Order #: [id number] Dose#: 52.3 PROCEDURE: CT BRAIN WITHOUT CONTRAST [...] Londono MD on 12/02/2023 at 18:31 Normal [facility] [place] CT CERVICAL W/O CONTRASTon 1 CT CERVICAL W/O CONTRAST [place] [address] Patient: DONTAE PARRA Phone#: : 1975 Age: 48 Gender: M Pt. Type: ER Account: [id number] Location: [facility] Ordering: MUMTAZ HOLLEY Exam Date: 11/30/2023/20:55 Family Phys: Charge Code: [id number] Physician: [place] Order #: [id number] Dose#: 14.7 PROCEDURE: CT CERVICAL WITHOUT CONTRAST [...] Londono MD on 12/02/2023 at 18:48 Normal [facility] [place] CT CHEST/ABD/PELVIS C+on CT CHEST/ABD/PELVIS C+ [place] [address] Patient: DONTAE PARRA Phone#: : 1975 Age: 48 Gender: M Pt. Type: ER Account: [id number] Location: [facility] Ordering: MUMTAZ HOLLEY Exam Date: 11/30/2023/21:02 Family Phys: Charge Code: [id number] Physician: Prince [place] Order #: [id number] Dose#: 31.4 PROCEDURE: CT CHEST/ABD/PELVIS W COMPARISON: [...] 48 Gender: M Pt. Type: ER Account: [id number] Location: [facility] Ordering: MUMTAZ HOLLEY Exam Date: 11/30/2023/21:02 Family Phys: Charge Code: [id number] Physician: Prince [place] Order #: [id number] Dose#: 31.4 etiology. At the L3-4 level [...] Londono MD on 12/03/2023 at 11:03 Normal [facility] 11-30-2023 Lipase [Catalytic activity/Vol] 26.0 U/L Normal 15.0 - 78.0 [facility] [place] Comment on above: Result Comment: *PLE ASE NOTE THAT RANGES FOR LIPASE HAVE CHANGED OF 02/16/23 DUE TO AN ASSAY UPDATE BY THE PANTRY ATTENDANT.THE NEW ASSAY RANGE IS 6-250 U/L, WITH A REFERENCE RANGE OF 16-77 U/L. Performed By: #### 2 [id number] #### [facility] [place],[address] [place], [place] [id number] TROPONINon 11-30-2023 HS TROPONIN <4.0 Normal 0.0 - 76.2 [facility] [place] Comment on above: Performed By: #### 2 91000 #### [facility] [place],[address] [place], [place] [id number] Absolute lymphocyte countOrd ered By: Jose R Schmitz on 01-24-2023 Lymphocytes Auto (Unsp spec) [#/Vol] 2.62 10*3/uL 0.83-4.51 [facility] Basophil percentageOrdered B y: Jose R Schmitz on 01-24-2023 Basophils/100 WBC (Bld) 0.4 % 0-1 [facility] Bilirubin [Mass/Vol] 0.50 mg/dL 0.20-1.00 [facility] Comment on above: For patients on eltr ombopag therapy, use of Dimension [place] TBIL is not recommended. Chloride [Moles/Vol] 105 mmol/L 98-107 [facility] Eosinophils/100 WBC (Bld) 2.0 % 0-5 [facility] Glucose [Mass/Vol] 119 mg/dL 74-106 [facility] Comment on above: Fasting Glucose resu lt from 100 to 125 mg/dL suggests IMPAIRED HOMEOSTASIS per A.D.A. criteria. Neutrophils (Bld) [#/Vol] 7.3 10*3/uL 2.0-7.7 [facility] Neutrophils/100 WBC (Bld) 66.4 % 47-70 [facility] Potassium [Moles/Vol] 4.1 mmol/L 3.5-5.1 [facility] Comment on above: Moderate Hemolysis, Result may be falsely increased. Protein [Mass/Vol] 7.6 g/dL 6.4-8.2 [facility] Sodium [Moles/Vol] 138 mmol/L 136-145 [facility] WBC (Bld) [#/Vol] 11.0 10*3/uL 4.4-11.0 [facility] Blood erythrocytes count (nu mber/volume)Ordered By: Jose R Schmitz on 01-24-2023 RBC (Bld) [#/Vol] 4.83 10*6/uL 4.6-6.2 [facility] Blood hemoglobin measurement (mass/volume)Ordered By: Jose R Schmitz on 01-24-2023 Hemoglobin (Bld) [Mass/Vol] 14.9 g/dL 13.0-16.5 [facility] Blood lymphocytes/100 leukoc ytesOrdered By: Jose R Schmitz on 01-24-2023 Lymphocytes/100 WBC (Bld) 23.9 % 19-41 [facility] Blood manual differential co mment interpretation (narrative result)Ordered By: Jose R Schmitz on 01-24-2023 Manual differential comment Naklu (Bld) [Interp] SCANNED [facility] Blood monocytes/100 leukocyt esOrdered By: Jose R Schmitz on 01-24-2023 Monocytes/100 WBC (Bld) 6.8 % 0-10 [facility] Blood platelet adequacy dete ction by light microscopyOrdered By: Jose R Schmitz on 01-24-2023 Platelets LM Ql (Bld) ADEQUATE ADEQ [facility] Blood platelet mean volumeOr dered By: Jose R Schmitz on 01-24-2023 Platelet mean volume (Bld) [Entitic vol] 9.4 fL 6.2-12.0 [facility] Determination of erythrocyte mean corpuscular volume (MCV)Ordered By: Jose R Schmitz on 01-24-2023 MCV (RBC) [Entitic vol] 90.5 fL 80-94 [facility] Direct bilirubinOrdered By: Jose R Schmitz on 01-24-2023 Bilirubin.direct [Mass/Vol] 0.07 mg/dL 0.00-0.30 [facility] Hematocrit Auto (Bld) [Volum e fraction]Ordered By: Jose R Schmitz on 01-24-2023 Hematocrit (Bld) [Volume fraction] 43.7 % 40-54 [facility] INR in Blood by Coagulation assayOrdered By: Jose R Schmitz on 01-24-2023 INR Coag (Bld) [Relative time] 0.9 {INR} [facility] Laboratory - Chemistry and C hemistry - challengeOrdered By: Jose R Schmitz on 01-24-2023 ALP [Catalytic activity/Vol] 96 U/L 45-117 [facility] ALT [Catalytic activity/Vol] 21 U/L 16-61 [facility] CO2 [Moles/Vol] 25.0 mmol/L 21.0-32.0 [facility] Globulin (S) [Mass/Vol] 4.0 g/dL 2.2-4.2 [facility] Lipase [Catalytic activity/Vol] 38 U/L 13-75 [facility] Comment on above: Please note:LIPASE r evised reference range effective 22. New Lipase methodology. Expected to produce lower values than the previous assay method. NEW Reference Range: 13 - 75 U/L Urea nitrogen/Creatinine [Mass ratio] 15.5 mg/mg 10-20 [facility] Laboratory - CoagulationOrde red By: JoseR Schmitz on 01-24-2023 aPTT Coag (Bld) [Time] 24.4 s 24.1-36.2 [facility] PT Coag (PPP) [Time] 12.0 s 11.7-14.9 [facility] Laboratory - Hematology and Cell countsOrdered By: Jose R Schmitz on 01-24-2023 Erythrocyte distribution width (RBC) [Entitic vol] 42.6 fL 35.1-43.9 [facility] Erythrocyte distribution width (RBC) [Ratio] 13.0 % 11.6-14.6 [facility] Immature granulocytes/100 WBC (Bld) 0.500 % 0.0-0.9 [facility] Comment on above: IG% - Immature Granu locytes (promyelocytes, myelocytes and metamyelocytes) > 1% indicates that a LEFT SHIFT is Present. MCH (RBC) [Entitic mass] 30.8 pg 27.0-32.0 [facility] Nucleated RBC/100 WBC (Bld) [Ratio] 0 % 0-5 [facility] ([facility]BC) [Mass/Vol]Or dered By: Jose R Schmitz on 01-24-2023 MCHC (RBC) [Mass/Vol] 34.1 g/dL 32-36 [facility] No Panel InformationOrdered By: Jose R Schmitz on 01-24-2023 Estimated Creatinine Clearance Calc 85.48 ml/min [facility] Estimated GFR (MDRD) Amer 86 mL/min >60 [facility] Comment on above: GFR Calc Estimated GFR (MDRD) Non-Af Amer 71 mL/min >60 [facility] Comment on above: Non- GFR Calc Troponin I High Sensitivity 4 pg/mL 3.0-78.0 [facility] Comment on above: Please Note: New Rajni t Units and Gender Specific Reference Ranges. For more information see Policy Stat Procedure [place] High Sensitivity Troponin (TNIH) and attachments. Platelets bldOrdered By: Alireza Schmitz on 01-24-2023 Platelets (Bld) [#/Vol] 274 10*3/uL 150-450 [facility] Serum or plasma albumin sherwin urement (mass/volume)Ordered By: Jose R Schmitz on 01-24-2023 Albumin [Mass/Vol] 3.6 g/dL 3.2-5.0 [facility] Serum or plasma calcium sherwin urement (mass/volume)Ordered By: Jose R Schmitz on 01-24-2023 Calcium [Mass/Vol] 9.0 mg/dL 8.5-10.1 [facility] Serum or plasma creatinine m easurement (mass/volume)Ordered By: Jose R Schmitz on 01-24-2023 Creatinine [Mass/Vol] 1.16 mg/dL 0.70-1.30 [facility] Comment on above: The validity of the calculated GFR & GFRAA in patients over 70 years has not been determined. Clinical correlation is essential. Serum or plasma urea nitroge n measurement (mass/volume)Ordered By: Jose R Schmitz on 01-24-2023 Urea nitrogen [Mass/Vol] 18 mg/dL 7-18 [facility] Thin prep Papanicolaou smear with manual screeningOrdered By: Jose R Schmitz on 01-24-2023 Thin prep Papanicolaou smear with manual screening 22 U/L 15-37 [facility] Comment on above: Moderate Hemolysis, Result may be falsely increased. Thin prep Papanicolaou smear with manual screening 8 5-15 [facility] Absolute lymphocyte countOrd ered By: Elda Villegas on 01-22-2023 Lymphocytes Auto (Unsp spec) [#/Vol] 2.43 10*3/uL 0.83-4.51 [facility] Basophil percentageOrdered B y: Elda Villegas on 01-22-2023 Amylase [Catalytic activity/Vol] 53 U/L 25-115 [facility] Basophils/100 WBC (Bld) 0.4 % 0-1 [facility] Chloride [Moles/Vol] 108 mmol/L 98-107 [facility] Eosinophils/100 WBC (Bld) 2.3 % 0-5 [facility] Glucose [Mass/Vol] 85 mg/dL 74-106 [facility] Neutrophils (Bld) [#/Vol] 7.4 10*3/uL 2.0-7.7 [facility] Neutrophils/100 WBC (Bld) 66.5 % 47-70 [facility] Potassium [Moles/Vol] 3.9 mmol/L 3.5-5.1 [facility] Sodium [Moles/Vol] 140 mmol/L 136-145 [facility] WBC (Bld) [#/Vol] 11.1 10*3/uL 4.4-11.0 [facility] Blood erythrocytes count (nu mber/volume)Ordered By: Elda Villegas on 01-22-2023 RBC (Bld) [#/Vol] 4.81 10*6/uL 4.6-6.2 [facility] Blood hemoglobin measurement (mass/volume)Ordered By: Elda Villegas on 01-22-2023 Hemoglobin (Bld) [Mass/Vol] 14.8 g/dL 13.0-16.5 [facility] Blood lymphocytes/100 leukoc ytesOrdered By: Elda Villegas on 01-22-2023 Lymphocytes/100 WBC (Bld) 21.8 % 19-41 [facility] Blood monocytes/100 leukocyt esOrdered By: Elda Villegas on 12-04-2023 Monocytes/100 WBC (Bld) 8.6 % 0-10 [facility] Blood platelet mean volumeOr dered By: Elda Villegas on 01-22-2023 Platelet mean volume (Bld) [Entitic vol] 8.0 fL 6.2-12.0 [facility] Determination of erythrocyte mean corpuscular volume (MCV)Ordered By: Elda Villegas on 01-22-2023 MCV (RBC) [Entitic vol] 91.3 fL 80-94 [facility] Hematocrit Auto (Bld) [Volum e fraction]Ordered By: Elda Villegas on 01-22-2023 Hematocrit (Bld) [Volume fraction] 43.9 % 40-54 [facility] Laboratory - Chemistry and C hemistry - challengeOrdered By: Elda Villegas on 01-22-2023 CO2 [Moles/Vol] 27.0 mmol/L 21.0-32.0 [facility] Lipase [Catalytic activity/Vol] 33 U/L 13-75 [facility] Comment on above: Please note:LIPASE r evised reference range effective 22. New Lipase methodology. Expected to produce lower values than the previous assay method. NEW Reference Range: 13 - 75 U/L Magnesium [Mass/Vol] 2.2 mg/dL 1.6-2.6 [facility] Natriuretic peptide B (Bld) [Mass/Vol] 11.8 pg/mL 0-100 [facility] Urea nitrogen/Creatinine [Mass ratio] 12.4 mg/mg 10-20 [facility] Laboratory - Hematology and Cell countsOrdered By: Elda Villegas on 01-22-2023 Erythrocyte distribution width (RBC) [Entitic vol] 44.1 fL 35.1-43.9 [facility] Erythrocyte distribution width (RBC) [Ratio] 13.2 % 11.6-14.6 [facility] Immature granulocytes/100 WBC (Bld) 0.400 % 0.0-0.9 [facility] Comment on above: IG% - Immature Granu locytes (promyelocytes, myelocytes and metamyelocytes) > 1% indicates that a LEFT SHIFT is Present. MCH (RBC) [Entitic mass] 30.8 pg 27.0-32.0 [facility] Nucleated RBC/100 WBC (Bld) [Ratio] 0 % 0-5 [facility] Auto (RBC) [Mass/Vol]Or dered By: Elda Villegas on 01-22-2023 MCHC (RBC) [Mass/Vol] 33.7 g/dL 32-36 [facility] No Panel InformationOrdered By: Elda Villegas on 01-22-2023 D-Dimer Quantitative (PE/DVT) < 0.27 FEU/ug/m 0.27-0.49 [facility] Comment on above: NORMAL D-Dimer level (<0.50) indicates no DVT or PE. Estimated GFR (MDRD) Amer 89 mL/min >60 [facility] Comment on above: GFR Calc Estimated GFR (MDRD) Non-Af Amer 73 mL/min >60 [facility] Comment on above: Non- GFR Calc Troponin I High Sensitivity 7 pg/mL 3.0-78.0 [facility] Comment on above: Please Note: New Rajni t Units and Gender Specific Reference Ranges. For more information see Policy Stat Procedure [place] High Sensitivity Troponin (TNIH) and attachments. Platelets bldOrdered By: Jatin Villegas on 01-22-2023 Platelets (Bld) [#/Vol] 301 10*3/uL 150-450 [facility] Serum or plasma calcium sherwin urement (mass/volume)Ordered By: Elad Villegas on 01-22-2023 Calcium [Mass/Vol] 9.2 mg/dL 8.5-10.1 [facility] Serum or plasma creatinine m easurement (mass/volume)Ordered By: Elda Villegas on 01-22-2023 Creatinine [Mass/Vol] 1.13 mg/dL 0.70-1.30 [facility] Comment on above: The validity of the calculated GFR & GFRAA in patients over 70 years has not been determined. Clinical correlation is essential. Serum or plasma urea nitroge n measurement (mass/volume)Ordered By: Elda Villegas on 01-22-2023 Urea nitrogen [Mass/Vol] 14 mg/dL 7-18 [facility] Thin prep Papanicolaou smear with manual screeningOrdered By: Elda Villegas on 01-22-2023 Thin prep Papanicolaou smear with manual screening 5 5-15 [facility] Alternaria alternata IgE ser umOrdered By: Frances Fuchs on 10-05-2022 A. alternata IgE Qn (S) <0.10 kU/L Class 0 W [facility] Atypical perinuclear antineu trophil cytoplasmic antibodies measurementOrdered By: Frances Fuchs on 10-05-2022 Neutrophil cytoplasmic Ab.perinuclear.atypical IF (S) [Titer] <1:20 titer Neg:<1:20 [facility] Comment on above: The atypical pANCA p attern has been observed in asignificant percentage of patients with ulcerative colitis,primary sclerosing cholangitis and autoimmune hepatitis. Basophil percentageOrdered B y: Frances Fuchs on 10-05-2022 WBC (Bld) [#/Vol] 8.6 10*3/uL 4.4-11.0 [facility] Blood erythrocytes count (nu mber/volume)Ordered By: Frances Fuchs on 10-05-2022 RBC (Bld) [#/Vol] 4.93 10*6/uL 4.6-6.2 [facility] Blood hemoglobin measurement (mass/volume)Ordered By: Frances Fuchs on 10-05-2022 Hemoglobin (Bld) [Mass/Vol] 15.8 g/dL 13.0-16.5 [facility] Blood platelet mean volumeOr dered By: Frances Fuchs on 10-05-2022 Platelet mean volume (Bld) [Entitic vol] 8.1 fL 6.2-12.0 [facility] Determination of erythrocyte mean corpuscular volume (MCV)Ordered By: Frances Fuchs on 10-05-2022 MCV (RBC) [Entitic vol] 90.9 fL 80-94 [facility] Gram stain for investigation of transfusion reactionOrdered By: Frances Fuchs on 10-05-2022 Microscopic observation Gram stain Nom (Unsp spec) [facility] Hematocrit Auto (Bld) [Volum e fraction]Ordered By: Frances Fuchs on 10-05-2022 Hematocrit (Bld) [Volume fraction] 44.8 % 40-54 [facility] Laboratory - Hematology and Cell countsOrdered By: Frances Fuchs on 10-05-2022 Erythrocyte distribution width (RBC) [Entitic vol] 44.8 fL 35.1-43.9 [facility] Erythrocyte distribution width (RBC) [Ratio] 13.5 % 11.6-14.6 [facility] MCH (RBC) [Entitic mass] 32.0 pg 27.0-32.0 [facility] Laboratory - Miscellaneous t estsOrdered By: Frances Fuchs on 10-05-2022 Service comment (Unsp spec) [Interp] Comment . [facility] Comment on above: Levels of Specific I [...] 10-05-2022 MCHC (RBC) [Mass/Vol] 35.3 g/dL 32-36 [facility] Microbial respiratory cultur eOrdered By: Frances Fuchs on 10-05-2022 Bacteria identified Respiratory culture Nom (Unsp spec) [facility] No Panel InformationOrdered By: Frances Fuchs on 10-05-2022 Common Ragweed (Short) Allergen <0.10 kU/L Class 0 [facility] Pashto Plantain Allergen (RAST) <0.10 kU/L Class 0 [facility] Immunoglobulin E 22 IU/mL 6-495 [facility] Comment on above: Performed at: [facility] [address] [id number] Director: Trent Live PhD, Phone: [phone] at: [email or web address] [id number] Director: Court Thorpe MD, Phone: [phone] Mouse Urine Allergen IgE Antibody <0.10 kU/L Class 0 [facility] Comment on above: Performed at: [facility] [address] [id number] Director: Court Thorpe MD, Phone: [phone] Platelets bldOrdered By: Kristin gina Shila on 10-05-2022 Platelets (Bld) [#/Vol] 279 10*3/uL 150-450 [facility] Serum Aspergillus flavus ant ibody detection by immunodiffusionOrdered By: Frances Fuchs on 10-05-2022 A. flavus Ab Immune diff Ql (S) Negative Neg:<1:1 [facility] Serum Aspergillus fumigatus antibody detection by immunodiffusionOrdered By: Frances Fuchs on 10-05-2022 A. fumigatus Ab Immune diff Ql (S) Negative Neg:<1:1 [facility] Serum Aspergillus niger anti body detection by immunodiffusionOrdered By: Frances Fuchs on 10-05-2022 A. niger Ab Immune diff Ql (S) Negative Neg:<1:1 [facility] Serum Bermuda grass IgE anti body assay (units/volume)Ordered By: Frances Fuchs on 10-05-2022 Bermuda grass IgE Qn (S) <0.10 kU/L Class 0 [facility] Serum Dermatophagoides farin ae specific IgE antibody assay (units/volume)Ordered By: Frances Fuchs on 10-05-2022 [place] house dust mite IgE Qn (S) <0.10 kU/L Class 0 [facility] Serum house dust mi te IgE antibody assay (units/volume)Ordered By: Frances Fuchs on 10-05-2022 house dust mite IgE Qn (S) <0.10 kU/L Class 0 [facility] Serum [place] blue grass Ig E antibody assay (units/volume)Ordered By: Frances Fuchs on 10-05-2022 [place] blue grass IgE Qn (S) <0.10 kU/L Class 0 [facility] Serum cat dander IgE antibod y assay (units/volume)Ordered By: Frances Fuchs on 10-05-2022 Cat dander IgE Qn (S) <0.10 kU/L Class 0 [facility] Serum classic neutrophil cyt oplasmic antibody assay (units/volume)Ordered By: Frances Fuchs on 10-05-2022 Neutrophil cytoplasmic Ab.classic Qn (S) <1:20 titer Neg:<1:20 [facility] Serum dog epithelium IgE ant ibody assay (units/volume)Ordered By: Frances Fuchs on 10-05-2022 Dog epithelium IgE Qn (S) <0.10 kU/L Class 0 [facility] Serum perinuclear neutrophil cytoplasmic antibody titer by immunofluorescenceOrdered By: Frances Fuchs on 10-05-2022 Neutrophil cytoplasmic Ab.perinuclear IF (S) [Titer] <1:20 titer Neg:<1:20 [facility] Comment on above: The presence of posi tive fluorescence exhibiting P-ANCA orC-ANCA patterns alone is not specific for the diagnosis ofWegener's Granulomatosis (WG) or microscopic polyangiitis.Decisions about treatment should not be based solely onANCA IFA results. The International ANCA Group Consensusrecommends follow up testing of positive sera with both IL-3 and MPO-ANCA enzyme immunoassays. As many as 5% serumsamples are positive only by EIA. Ref. AM J Clin Abxsym4960;111:507-513. Serum white elm IgE antibody assay (units/volume)Ordered By: Frances Fuchs on 10-05-2022 White Elm IgE Qn (S) <0.10 kU/L Class 0 [facility] Serum white oak IgE antibody assay (units/volume)Ordered By: Frances Fuchs on 10-05-2022 [place] IgE Qn (S) <0.10 kU/L Class 0 [facility] Basophil percentageOrdered B y: Dr. Olsen on 07-12-2022 Chloride [Moles/Vol] 106 mmol/L 98-107 [facility] Glucose [Mass/Vol] 98 mg/dL 74-106 [facility] Potassium [Moles/Vol] 3.4 mmol/L 3.5-5.1 [facility] Sodium [Moles/Vol] 140 mmol/L 136-145 [facility] Laboratory - Chemistry and C hemistry - challengeOrdered By: Dr. Olsen on 07-12-2022 CO2 [Moles/Vol] 27.0 mmol/L 21.0-32.0 [facility] Urea nitrogen/Creatinine [Mass ratio] 10.0 mg/mg 10-20 [facility] No Panel InformationOrdered By: Dr. Olsen on 07-12-2022 Estimated GFR (MDRD) Amer 83 mL/min >60 [facility] Comment on above: GFR Calc Estimated GFR (MDRD) Non-Af Amer 69 mL/min >60 [facility] Comment on above: Non- GFR Calc Serum or plasma calcium sherwin urement (mass/volume)Ordered By: Dr. Olsen on 07-12-2022 Calcium [Mass/Vol] 9.5 mg/dL 8.5-10.1 [facility] Serum or plasma creatinine m easurement (mass/volume)Ordered By: Dr. Olsen on 07-12-2022 Creatinine [Mass/Vol] 1.20 mg/dL 0.70-1.30 [facility] Comment on above: The validity of the calculated GFR & GFRAA in patients over 70 years has not been determined. Clinical correlation is essential. Serum or plasma urea nitroge n measurement (mass/volume)Ordered By: Dr. Olsen on 07-12-2022 Urea nitrogen [Mass/Vol] 12 mg/dL 7-18 [facility] Thin prep Papanicolaou smear with manual screeningOrdered By: Dr. Olsen on 07-12-2022 Thin prep Papanicolaou smear with manual screening 7 5-15 [facility] Absolute lymphocyte countOrd ered By: Dr. Ndiaye on 07-10-2022 Lymphocytes Auto (Unsp spec) [#/Vol] 0.70 10*3/uL 0.83-4.51 [facility] Basophil percentageOrdered B y: Dr. Ndiaye on 07-10-2022 Basophils/100 WBC (Bld) 0.3 % 0-1 W [facility] Bilirubin [Mass/Vol] 1.30 mg/dL 0.20-1.00 [facility] Comment on above: For patients on eltr ombopag therapy, use of Dimension [place] TBIL is not recommended. Chloride [Moles/Vol] 102 mmol/L 98-107 [facility] Eosinophils/100 WBC (Bld) 0.7 % 0-5 [facility] Glucose [Mass/Vol] 106 mg/dL 74-106 [facility] Comment on above: Fasting Glucose resu lt from 100 to 125 mg/dL suggests IMPAIRED HOMEOSTASIS per A.D.A. criteria. Neutrophils (Bld) [#/Vol] 7.6 10*3/uL 2.0-7.7 [facility] Neutrophils/100 WBC (Bld) 85.5 % 47-70 [facility] Potassium [Moles/Vol] 3.5 mmol/L 3.5-5.1 [facility] Protein [Mass/Vol] 7.5 g/dL 6.4-8.2 [facility] Sodium [Moles/Vol] 136 mmol/L 136-145 [facility] WBC (Bld) [#/Vol] 8.9 10*3/uL 4.4-11.0 [facility] Blood erythrocytes count (nu mber/volume)Ordered By: Dr. Ndiaye on 07-10-2022 RBC (Bld) [#/Vol] 5.13 10*6/uL 4.6-6.2 [facility] Blood hemoglobin measurement (mass/volume)Ordered By: Dr. Ndiaye on 07-10-2022 Hemoglobin (Bld) [Mass/Vol] 15.8 g/dL 13.0-16.5 [facility] Blood lymphocytes/100 leukoc ytesOrdered By: Dr. Ndiaye on 07-10-2022 Lymphocytes/100 WBC (Bld) 7.9 % 19-41 [facility] Blood monocytes/100 leukocyt esOrdered By: Dr. Ndiaye on 07-10-2022 Monocytes/100 WBC (Bld) 5.1 % 0-10 W [facility] Blood platelet mean volumeOr dered By: Dr. Ndiaye on 07-10-2022 Platelet mean volume (Bld) [Entitic vol] 8.2 fL 6.2-12.0 [facility] Determination of erythrocyte mean corpuscular volume (MCV)Ordered By: Dr. Ndiaye on 07-10-2022 MCV (RBC) [Entitic vol] 90.6 fL 80-94 W [facility] Direct bilirubinOrdered By: Dr. Ndiaye on 07-10-2022 Bilirubin.direct [Mass/Vol] 0.25 mg/dL 0.00-0.30 [facility] Hematocrit Auto (Bld) [Volum e fraction]Ordered By: Dr. Ndiaye on 07-10-2022 Hematocrit (Bld) [Volume fraction] 46.5 % 40-54 [facility] Laboratory - Chemistry and C hemistry - challengeOrdered By: Dr. Ndiaye on 07-10-2022 ALP [Catalytic activity/Vol] 94 U/L 45-117 [facility] ALT [Catalytic activity/Vol] 32 U/L 16-61 [facility] CO2 [Moles/Vol] 27.0 mmol/L 21.0-32.0 [facility] Globulin (S) [Mass/Vol] 3.8 g/dL 2.2-4.2 W [facility] Lipase [Catalytic activity/Vol] 25 U/L 13-75 [facility] Comment on above: Please note:LIPASE r evised reference range effective 22. New Lipase methodology. Expected to produce lower values than the previous assay method. NEW Reference Range: 13 - 75 U/L Urea nitrogen/Creatinine [Mass ratio] 14.0 mg/mg 10-20 [facility] Laboratory - Hematology and Cell countsOrdered By: Dr. Ndiaye on 07-10-2022 Erythrocyte distribution width (RBC) [Entitic vol] 45.4 fL 35.1-43.9 [facility] Erythrocyte distribution width (RBC) [Ratio] 13.7 % 11.6-14.6 [facility] Immature granulocytes/100 WBC (Bld) 0.500 % 0.0-0.9 [facility] Comment on above: IG% - Immature Granu locytes (promyelocytes, myelocytes and metamyelocytes) > 1% indicates that a LEFT SHIFT is Present. MCH (RBC) [Entitic mass] 30.8 pg 27.0-32.0 [facility] Nucleated RBC/100 WBC (Bld) [Ratio] 0 % 0-5 [facility] MCHC Auto (RBC) [Mass/Vol]Or dered By: Dr. Ndiaye on 07-10-2022 MCHC (RBC) [Mass/Vol] 34.0 g/dL 32-36 [facility] No Panel InformationOrdered By: Dr. Ndiaye on 07-10-2022 Estimated Creatinine Clearance Calc 81.95 ml/min [facility] Estimated GFR (MDRD) Amer 82 mL/min >60 [facility] Comment on above: GFR Calc Estimated GFR (MDRD) Non-Af Amer 68 mL/min >60 [facility] Comment on above: Non- GFR Calc Troponin I High Sensitivity 3 pg/mL 3.0-78.0 [facility] Comment on above: Please Note: New Rajni t Units and Gender Specific Reference Ranges. For more information see Policy Stat Procedure [place] High Sensitivity Troponin (TNIH) and attachments. Platelets bldOrdered By: Dr. Ndiaye on 07-10-2022 Platelets (Bld) [#/Vol] 251 10*3/uL 150-450 [facility] Serum or plasma albumin sherwin urement (mass/volume)Ordered By: Dr. Ndiaye on 07-10-2022 Albumin [Mass/Vol] 3.7 g/dL 3.2-5.0 [facility] Serum or plasma calcium sherwin urement (mass/volume)Ordered By: Dr. Ndiaye on 07-10-2022 Calcium [Mass/Vol] 8.8 mg/dL 8.5-10.1 [facility] Serum or plasma creatinine m easurement (mass/volume)Ordered By: Dr. Ndiaye on 07-10-2022 Creatinine [Mass/Vol] 1.21 mg/dL 0.70-1.30 [facility] Comment on above: The validity of the calculated GFR & GFRAA in patients over 70 years has not been determined. Clinical correlation is essential. Serum or plasma urea nitroge n measurement (mass/volume)Ordered By: Dr. Ndiaye on 07-10-2022 Urea nitrogen [Mass/Vol] 17 mg/dL 7-18 [facility] Thin prep Papanicolaou smear with manual screeningOrdered By: Dr. Ndiaye on 07-10-2022 Thin prep Papanicolaou smear with manual screening 19 U/L 15-37 [facility] Thin prep Papanicolaou smear with manual screening 7 5-15 [facility] Basophil percentageOrdered B y: Dr. Boyd on 06-16-2022 Creatinine [Mass/Vol] 1.0 mg/dL 0.70-1.30 [facility] No Panel InformationOrdered By: Dr. Boyd on 06-16-2022 Bedside Estimated GFR (eGFR) > 60.0000 mL/min >60 [facility] .Auto Diffon 02-01-2022 Basophil, Absolute 0.1 10 3/mcL Normal 0.0-0.3 [facility] ([place]) Comment on above: Performed By: #### P RO, GFR, BMP #### [address] [address] Basophils/100 WBC (Bld) 0.5 % Normal 0.0-2.5 [facility] ([place]) Comment on above: Performed By: #### P RO, GFR, BMP #### [address] [address] Eosinophil, Absolute 0.3 10 3/mcL Normal 0.0-0.7 [facility] ([place]) Comment on above: Performed By: #### P RO, GFR, BMP #### [address] [address] Eosinophils/100 WBC (Bld) 2.9 % Normal 0.0-6.0 [facility] ([place]) Comment on above: Performed By: #### P RO, GFR, BMP #### [address] [address] Lymphocyte, Absolute 1.9 10 3/mcL Normal 0.9-4.3 [facility] ([place] Comment on above: Performed By: #### P RO, GFR, BMP #### [address] [address] Lymphocytes/100 WBC (Bld) 18.5 % Low 20.0-40.0 [facility] ([place] Comment on above: Performed By: #### P RO, GFR, BMP #### [address] [address] Monocyte, Absolute 0.8 10 3/mcL Normal 0.1-1.4 [facility] ([place] Comment on above: Performed By: #### P RO, GFR, BMP #### [address] [address] Monocytes/100 WBC (Bld) 8.0 % Normal 2.0-13.0 [facility] ([place] Comment on above: Performed By: #### P RO, GFR, BMP #### [address] [address] Neutrophils/100 WBC (Bld) 70.1 % Normal 50.0-75.0 [facility] ([place] Comment on above: Performed By: #### P RO, GFR, BMP #### [address] [address] .GFRon 02-01-2022 GFR Non- >60 Normal [facility] ([place] Comment on above: Result Comment: GFR Population [...] By: #### P RO, GFR, BMP #### [address] [address] GFR >60 Normal [facility] ([place] Comment on above: Result Comment: GFR Population [...] By: #### P RO, GFR, BMP #### [address] [address] .NEUABSon 02-01-2022 Neutrophil, Absolute 7.1 10 3/mcL Normal 2.3-8.1 [facility] ([place] Comment on above: Performed By: #### P RO, GFR, BMP #### [address] [address] BMPon 02-01-2022 BUN/Creatinine Ratio 8.7 ratio Low 10.0-22.0 [facility] ([place] Comment on above: Performed By: #### P RO, GFR, BMP #### [address] [address] Calcium [Mass/Vol] 10.0 mg/dL Normal 8.7-10.4 [facility] ([place]) Comment on above: Performed By: #### P RO, GFR, BMP #### [address] [address] Chloride [Moles/Vol] 107 mmol/L Normal 98-110 [facility] ([place] Comment on above: Performed By: #### P RO, GFR, BMP #### [address] [address] CO2 [Moles/Vol] 29 mmol/L Normal 22-32 [facility] ([place] Comment on above: Performed By: #### P RO, GFR, BMP #### [address] [address] Creatinine [Mass/Vol] 1.04 mg/dL Normal 0.60-1.40 [facility] ([place]) Comment on above: Performed By: #### P RO, GFR, BMP #### [address] [address] Electrolyte Balance 1.0 mEq/L Low 4.0-15.0 On license of [facility] ([place]) Comment on above: Performed By: #### P RO, GFR, BMP #### [address] [address] Glucose [Mass/Vol] 109 mg/dL Normal 70-110 [facility] ([place] Comment on above: Performed By: #### P RO, GFR, BMP #### [address] [address] Potassium [Moles/Vol] 4.3 mmol/L Normal 3.5-5.0 [facility] ([place] Comment on above: Performed By: #### P RO, GFR, BMP #### [place] [id number] Sodium [Moles/Vol] 137 mmol/L Normal 136-145 [facility] ([place]) Comment on above: Performed By: #### P RO, GFR, BMP #### [place] [address] Urea nitrogen [Mass/Vol] 9.0 mg/dL Normal 8.0-22.0 [facility] ([place] Comment on above: Performed By: #### P RO, GFR, BMP #### [place] [address] CBCon 02-01-2022 Erythrocyte distribution width (RBC) [Ratio] 13.7 % Normal 11.5-15.5 [facility] ([place] Comment on above: Performed By: #### P RO, GFR, BMP #### [place] [address] Hematocrit (Bld) [Volume fraction] 41.4 % Normal 40.0-52.0 [facility] ([place] Comment on above: Performed By: #### P RO, GFR, BMP #### [place] [address] Hgb 14.4 G/dL Normal 13.0-17.5 [facility] ([place] Comment on above: Performed By: #### P RO, GFR, BMP #### [place] [address] MCH (RBC) [Entitic mass] 31.4 pg Normal 27.0-33.0 [facility] ([place] Comment on above: Performed By: #### P RO, GFR, BMP #### [place] [address] MCHC 34.7 G/dL Normal 32.0-36.0 [facility] ([place] Comment on above: Performed By: #### P RO, GFR, BMP #### [place] [address] MCV (RBC) [Entitic vol] 90.6 fL Normal 81.0-100.0 [facility] ([place]) Comment on above: Performed By: #### P RO, GFR, BMP #### [address] [address] Platelet 295 10 3/mcL Normal 150-450 [facility] ([place] Comment on above: Performed By: #### P RO, GFR, BMP #### [address] [address] Platelet mean volume (Bld) [Entitic vol] 6.5 fL Normal 6.4-10.5 [facility] ([place] Comment on above: Performed By: #### P RO, GFR, BMP #### [address] [address] RBC 4.57 10 6/mcL Normal 4.50-6.00 [facility] ([place] Comment on above: Performed By: #### P RO, GFR, BMP #### [address] [address] WBC 10.2 10 3/mcL Normal 4.5-10.8 [facility] ([place] Comment on above: Performed By: #### P RO, GFR, BMP #### [address] [address] Histoplasma Galactomannan AG on 02-01-2022 Histoplasma galacto source Bronchial wash Normal () [facility] Comment on above: Performed By: #### H ISTO GAL #### [facility] [address] [place], [place] [id number] Histoplasma galactomannan AG 0.80 ng/mL Abnormal () [facility] Comment on above: Result Comment: Refe rence Interval: None Detected Reportable Range: Positive Results reported in ng/mL from 0.20 ng/mL to 20.00 ng/mL Positive results above 20.00 ng/mL are reported as "Above the Limit of Quantification" This test was developed and its performance characteristics determined by [employer] It has not been cleared or approved by the FDA; however, FDA clearance or approval is not currently required for clinical use. The results are not intended to be used as the sole means for clinical diagnosis or patient management decisions. This document contains confidential privileged information. The recipient of the information is prohibited from disclosing the contents to another democrat without authorization. If you are not the intended recipient, you are hereby notified that the disclosure of the contents is strictly prohibited. Please notify [employer] immediately if you received this information in error. Academic Affairs Manager: Mandie Silverman MD, [place] [address] Cross-reactions occur with Blastomyces spp., Coccidioides spp., and Paracoccidioides brasiliensis. ALQ = Above the limit of Quantification Performed At: [employer] [address] [place] [address] Forensics Team Director: Mandie Silverman [facility] Number: [id number] Performed By: #### H ISTO GAL #### [facility] [address] [place] [id number] LABORATORYOrdered By: SYSTEM SYSTEM on 02-01-2022 [...] Invalid Interpretation Code 22 - 32 mEq/L AH ADM SS Creatinine [Mass/Vol] 1.04 mg/dL Invalid Interpretation Code 0.60 - 1.40 mg/dL AH ADM SS Electrolyte Balance 1.0 mEq/L Invalid Interpretation Code 4.0 - 15.0 mEq/L AH ADM SS Eosinophils (Bld) [#/Vol] 0.3 103/mcL Invali d Interpretation Code 0.0 - 0.7 10^3/mcL AH Workflow SS Eosinophils/100 WBC (Bld) 2.9 % Invali d Interpretation Code 0.0 - 6.0 % AH Workflow SS Erythrocyte distribution width (RBC) [Ratio] 13.7 % Invalid Interpretation Code 11.5 - 15.5 % AH Workflow SS GFR/1.73 sq M.predicted among blacks [...] Invalid Interpretation Code 32.0 - 36.0 G/dL Workflow SS MCV (RBC) [Entitic vol] 90.6 fL Invalid Interpretation Code 81.0 - 100.0 fL Workflow SS Monocytes (Bld) [#/Vol] 0.8 103/mcL Invalid Interpretation Code 0.1 - 1.4 10^3/mcL Workflow SS Monocytes/100 WBC (Bld) 8.0 % Invalid Interpretation Code 2.0 - 13.0 % Workflow SS Neutrophils (Bld) [#/Vol] 7.1 103/mcL Invali d Interpretation Code 2.3 - 8.1 10^3/mcL AH Workflow SS Neutrophils/100 WBC (Bld) 70.1 % Invali d Interpretation Code 50.0 - 75.0 % Workflow SS Platelet mean volume (Bld) [Entitic [...] Invalid Interpretation Code 4.5 - 10.8 10^3/mcL Workflow SS LABORATORYOrdered By: Daniel Escobar on 02-01-2022 INR Coag (PPP) [Relative time] 1.0 {INR} Invalid Interpretation Code AH Auto Coag SS PT Coag (PPP) [Time] 11.7 s Invalid Interpretation Code 9.0 - 14.9 seconds AH Auto Coag SS PROon 02-01-2022 INR Coag (PPP) [Relative time] 1.0 {INR} Normal [facility] ([place] Comment on above: Result Comment: The [place] [employer] (CHEST, 1992, 102:312S-25S) recommended therapeutic range for oral anticoagulant therapy is: LOW RISK: Prophylaxis of venous thrombosis INR: 2.0-3.0 Treatment of pulmonary embolism 2.0-3.0 Prevention of systemic embolism 2.0-3.0 HIGH RISK: Mechanical prosthetic valves 2.5-3.5 Performed By: #### P RO, GFR, BMP #### [place] [address] PT Coag (PPP) [Time] 11.7 s Normal 9.0-14.9 [facility] ([place] Comment on above: Result Comment: Effe ctive 09/03/07, Protime results may be affected by some antibiotics (i.e. Ciprofloxacin, Azithromycin, Bactrim) which may potentiate the action of oral anticoagulants, with further increases in Protime/INR. Performed By: #### P RO, GFR, BMP #### [place] [address] AFB DIRECT SMEARon 2 AFB DIRECT SMEAR - -------- RUN DATE: 01/27/22 Laboratory LIVE PAGE 1 RUN TIME: 1347 Specimen Inquiry RUN USER: INTERFACE -------- [facility] Department of Laboratories [address] [place] [address] PATIENT: DONTAE PARRA LOC: [facility] Sol #: [id number] HOME PHONE: AGE/SX: 46/M ROOM: RE01/26/[address]: Monroe Love : 73 BED: DIS: STATUS: REG REF LAB O/S: -------- Specimen: [id number] Collected: 01/26/22-UNK Status: COMP Req#: [id number] Received: 01/27/22 Source: BRONCH Sp Desc: BRONCHIAL Subm Dr: Monroe Love Ordered: AFB DIRECT SMR -------- Procedure Result Verified -------- > AFB DIRECT SMEAR Final 01/27/22-134 FLUORESCENT ACID FAST STAIN: NO AFB SEEN ON UNCONCENTRATED SMEAR VIA FLUORESCENT METHOD -------- END OF REPORT Normal [facility] Comment on above: Performed By: #### S ESTHER #### [facility] [address] [address] FUNGUS SMEAR (PAOLO)on FUNGUS SMEAR (PAOLO) - -------- RUN DATE: 01/27/22 Laboratory LIVE PAGE 1 RUN TIME: 9979 Specimen Inquiry RUN USER: INTERFACE -------- [facility] [address] [place] [address] PATIENT: ODNTAE PARRA LOC: [facility] U #: [id number] HOME PHONE: AGE/SX: 46/M ROOM: RE01/26/[address]: Monroe Love : 73 BED: DIS: STATUS: REG REF LAB O/S: -------- Specimen: [id number] Collected: 01/26/22- Status: COMP Req#: [id number] Received: 01/27/22 Source: BRONCH Sp Desc: BRONCHIAL Subm Dr: Monroe Love Ordered: MONE SALMON (PAOLO) -------- Procedure Result Verified -------- > FUNGUS SMEAR (PAOLO) Final 01/27/22 NO FUNGAL ELEMENTS FOUND ON DIRECT PAOLO PREP -------- END OF REPORT Normal [facility] Comment on above: Performed By: #### S JOSUE #### CAROLYNL [address] [address] Fungal Cultureon 01-26-2022 Fungal Culture - -------- RUN DATE: 03/26/22 Laboratory LIVE PAGE 1 RUN TIME: 100 Specimen Inquiry RUN USER: INTERFACE -------- [facility] Department of Laboratories [address] [place] [address] PATIENT: DONTAE PARRA LOC: ENOC Sol #: [id number] HOME PHONE: AGE/SX: 46/M ROOM: RE01/26/[address]: Monroe Love : 73 BED: DIS: STATUS: REG REF LAB O/S: -------- Specimen: [id number] Collected: 01/26/22-K Status: JOSE LUIS Req#: [id number] Received: 01/27/22 Source: BRONCH Sp Desc: BRONCHIAL Subm Dr: Monroe Love Ordered: AFB Cult/Stain, Fungal Culture -------- Procedure Result Verified -------- > AFB Stain Final 03/26/22 SEE NOTE Negative for Acid Fast Bacteria. > Acid-Fast Bacillus Cult Final 03/26/22 SEE NOTE Culture negative for acid fast bacilli Performed By: [facility] [address] [place] [address] Academic Affairs Manager: Cuong Wray MD, PHD > Fungal Culture Final 02/27/22 SEE NOTE Culture POSITIVE for Yeast not Cryptococcus species No further workup Performed By: [facility] [address] [place] [id number] Academic Affairs Manager: Cuong Wray MD, PHD -------- END OF REPORT Normal [facility] Comment on above: Performed By: #### C SUJATHA #### TWL [address] [address] GRAM STAINon 01-26-2022 Microscopic observation Gram stain Nom (Unsp spec) -------- RUN DATE: 01/29/22 Laboratory LIVE PAGE 1 RUN TIME: 942 Specimen Inquiry RUN USER: INTERFACE -------- [facility] Department of Laboratories [address] [place] [id number] PATIENT: DONTAE PARRA LOC: ENOC U #: [id number] HOME PHONE: AGE/SX: 46/M ROOM: RE01/26/[address]: Monroe LoveO.B.: [birth year] BED: DIS: STATUS: REG REF LAB O/S: -------- Specimen: [id number] Collected: 01/26/22 Status: COMP Req#: [id number] Received: 01/27/22-1199 Source: BRONCH Sp Desc: BRONCHIAL Subm Dr: Monroe Love Ordered: GRAM STAIN, RESPIRATORY CUL -------- Procedure Result Verified -------- > GRAM STAIN Final 01/27/22-140 FEW SEGMENTED WBC'S MODERATE GRAM POSITIVE COCCI > RESPIRATORY CULTURE Final 01/29/22-942 MODERATE GROWTH OF NORMAL MCKINLEY -------- END OF REPORT Normal [employer] [facility] Comment on above: Performed By: #### S MAXINE DICKEY #### TWL [place] [id number] NONGYN CYTOLOGYon 01-26-2022 NONGYN CYTOLOGY - -------- RUN DATE: 01/30/22 Laboratory LIVE PAGE 1 RUN TIME: 1333 Specimen Inquiry RUN USER: INTERFACE -------- [facility] Department of Laboratories [address] [place] [address] PATIENT: DONTAE PARRA LOC: ENOC U #: [id number] HOME PHONE: AGE/SX: 46/M ROOM: RE01/26/[address] [facility] [address]: Monroe LoveO.B.: 73 BED: DIS: STATUS: [...] 01/30/22 Laboratory LIVE PAGE 2 RUN TIME: 6133 Specimen Inquiry RUN USER: INTERFACE -------- SPEC #: [id number] PATIENT: DONTAE PARRA #[id number] ([facility]) -------- Specimen : [id number] Date Collected: 01/26/22 [...] that evaluation. -------- END OF REPORT Normal [facility] Comment on above: Performed By: #### N G #### TWL [address] [address] Radha 09-01-2021 DAVID Telephone (PULMUP) PARRASIMEON AngelaN ([id number]) 1975 M Date Time Provider Department 09/01/21 YONY FRIAS PULKAMILA During your visit today, we recorded the following information about you: Sabra Chapman MA 09/01/2021 9:49 AM Signed Patient scheduled for Bronch on 09/06/2021 at 7:30 am. He has his Covid test on 09/03/2021 at 8:20 am at [facility] lab. Faxed orders. Left message for patient [...] was no answer. Left a message on voiceOppexil requesting a return call. Sabra Chapman NADIA Craig 09/01/2021 4:36 PM Signed Patient notified Allergies [...] exertion [R06.02] 08/31/2021 Coronary artery disease involving sokaogon ndiaye*08/31/2021 History of 2019 novel coronavirus disease (COVI*08/31/2021 Encounter Status:Closed by SABRA CHAPMAN on 09/02/21 [facility] Telephone (WIQ) DONTAE PARRA ([id number]) 1975 M Date Time Provider Department 09/01/21 SHANEL RAMIREZ During your visit today, we recorded the following information about you: [facility] 09/01/2021 3:37 PM Signed Smoking Cessation Navigation Outcome of contact: Left Message Comments: A voicemail has been left for this patient regarding Tobacco Cessation support options. If this patient has any further questions they can email us at or call us at [phone]. [employer] [facility] [facility] Generalist/Smoking Cessation Navigator: Shanel LoveFormerly [facility] Allergies As of Date: 09/01/2021 (No Known [...] exertion [R06.02] 08/31/2021 Coronary artery disease involving sokaogon ndiaye*08/31/2021 History of 2019 novel coronavirus disease (COVI*08/31/2021 Encounter Status:Closed by SHANEL RAMIREZ on 09/01/21 [facility] 08-31-2021 CNOV Office Visit (PULMUP ) DONTAE PARRA ([id number]) 1975 M Date Time Provider Department 08/31/21 12:00 PM YONY FRIAS During your visit today, we recorded the following information about you: Pulse Blood pressure Weight Height 84/minute 118/79 100.7 kg 1.829 m Yony Frias DO 08/31/2021 12:51 PM Signed [facility] Department of Pulmonary AND Sleep Medicine Yony [...] viral - Restless legs - Stroke (cerebrum) ([facility]) PAST SURGICAL HISTORY Procedure Laterality Date - [...] Positive for (more content not included)... Normal [facility] CBC w/Auto Differentialon Basophils Abs. # 0.02 K/uL Normal 0.00-0.10 [facility] Comment on above: Performed By: #### C BCS #### [facility] [address] [place] [address] Basophils/100 WBC (Bld) 0.2 % Normal 0.2-1.0 [facility] Comment on above: Performed By: #### C BCS #### [facility] [address] [place] [address] Eosinophils (Bld) [#/Vol] 0.10 10*3/uL Normal 0.00-0.2 0 [facility] Comment on above: Performed By: #### C BCS #### [facility] [address] [place] [address] Eosinophils/100 WBC (Bld) 1.3 % Normal 0.9-2.9 [facility] Comment on above: Performed By: #### C BCS #### [facility] [address] [place] [address] Erythrocyte distribution width (RBC) [Ratio] 13.5 % Normal 11.5-14.5 [facility] Comment on above: Performed By: #### C BCS #### [facility] [address] [place] [address] Hematocrit (Bld) [Volume fraction] 44.2 % Normal 36.7-50.6 [facility] Comment on above: Performed By: #### C BCS #### [facility] [address] [place] [address] Hemoglobin (Bld) [Mass/Vol] 14.9 g/dL Normal 12.4-17.3 [facility] Comment on above: Performed By: #### C BCS #### [facility] [address] [place] [address] Imm Grans % 0.40 % Normal 0.00-1.00 [facility] Comment on above: Performed By: #### C BCS #### [place] [address] [place] [address] Imm Grans Absolute # 0.04 K/uL Normal 0.00-0.10 [facility] Comment on above: Performed By: #### C BCS #### [facility] [address] [place] [address] Lymphocytes (Bld) [#/Vol] 2.30 10*3/uL Normal 1.30-2.9 0 [facility] Comment on above: Performed By: #### C BCS #### [place] [address] [place] [address] Lymphocytes/100 WBC (Bld) 23.9 % Normal 17.0-45.5 [facility] Comment on above: Performed By: #### C BCS #### [place] [address] [place] [address] MCH (RBC) [Entitic mass] 30.7 pg Normal 27.0-31.0 [facility] Comment on above: Performed By: #### C BCS #### [facility] [address] [place] [address] MCHC (RBC) [Mass/Vol] 33.7 g/dL Normal 33.0-37.0 [facility] Comment on above: Performed By: #### C BCS #### [facility] [address] [facility] [place] [address] MCV (RBC) [Entitic vol] 90.9 fL Normal 80.0-94.0 [facility] Comment on above: Performed By: #### C BCS #### [facility] [address] [facility] [place] [address] Monocytes (Bld) [#/Vol] 0.50 10*3/uL Normal 0.30-0.80 [facility] Comment on above: Performed By: #### C BCS #### [facility] [address] [facility] [place] [address] Monocytes/100 WBC (Bld) 5.3 % Low 5.5-11.7 [facility] Comment on above: Performed By: #### C BCS #### [facility] [address] [facility] [place] [address] Neutrophils Abs. # 6.48 K/uL High 2.20-4.80 [facility] Comment on above: Performed By: #### C BCS #### [facility] [address] [facility] [place] [address] Neutrophils/100 WBC (Bld) 68.9 % High 43.0-65.0 [facility] Comment on above: Performed By: #### C BCS #### [facility] [address] [facility] [place] [address] Platelet mean volume (Bld) [Entitic vol] 8.3 fL Normal 7.4-10.4 [facility] Comment on above: Performed By: #### C BCS #### [facility] [address] [place] [address] Platelets (Bld) [#/Vol] 204 10*3/uL Normal 148-402 [facility] Comment on above: Performed By: #### C BCS #### [facility] [address] [place] [address] RBC (Bld) [#/Vol] 4.86 10*6/uL Normal 4.13-5.69 [facility] Comment on above: Performed By: #### C BCS #### [facility] [address] [place] [address] WBC (Bld) [#/Vol] 9.4 10*3/uL Normal 3.6-10.8 [facility] Comment on above: Performed By: #### C BCS #### [facility] [address] [place] [address] CHEST APon 03-03-2021 CHEST AP EXAMINATION: ONE XRAY VIEW OF THE CHEST 03/03/2021 11:53 am COMPARISON: February 22, 2021 HISTORY: ORDERING SYSTEM PROVIDED HISTORY: covid/dyspnea FINDINGS: Bibasilar atelectasis or infiltrates slightly greater on the right. No pneumothorax or significant pleural effusion. Cardiac and mediastinal silhouettes unremarkable. No acute osseous abnormality. Telemetry leads overlie the chest. IMPRESSION: Bibasilar atelectasis or infiltrates. Normal [facility] CTA CHEST Won 03-03-2021 CTA CHEST W [...] Bibasilar atelectasis or infiltrates. RECOMMENDATIONS: Unavailable Normal [facility] Comprehensive Metabolic Pane shilo 03-03-2021 Albumin [Mass/Vol] 3.5 g/dL Normal 3.4-5.0 [facility] Comment on above: Performed By: #### C MP #### [facility] [address] [place], [place] [id number] Albumin/Globulin [Mass ratio] 1.1 {ratio} Normal 1.1-2.5 [facility] Comment on above: Result Comment: CO RRECTED REPORT: Previous result was 1.0 at 12:02 on 03/03/21 Performed By: #### C MP #### [facility] [address] [place] [address] ALP [Catalytic activity/Vol] 93 U/L Normal 54-112 [facility] Comment on above: Performed By: #### C MP #### [facility] [address] [place] [address] ALT [Catalytic activity/Vol] 48 U/L Normal 13-66 [facility] Comment on above: Performed By: #### C MP #### [facility] [address] [place] [address] Anion gap [Moles/Vol] 11.8 mmol/L Normal 8.0-16.0 [facility] Comment on above: Performed By: #### C MP #### [facility] [address] [place] [address] AST [Catalytic activity/Vol] 21 U/L Normal 3-39 [facility] Comment on above: Performed By: #### C MP #### [facility] [address] [place] [address] Bilirubin [Mass/Vol] 0.92 mg/dL Normal 0.00-0.99 [facility] Comment on above: Performed By: #### C MP #### [facility] [address] [place] [address] Calcium [Mass/Vol] 8.3 mg/dL Normal 8.2-10.0 [facility] Comment on above: Performed By: #### C MP #### [facility] [address] [place] [address] Chloride [Moles/Vol] 106 mmol/L Normal 94-110 [facility] Comment on above: Performed By: #### C MP #### [facility] [address] [place] [address] CO2 [Moles/Vol] 26 mmol/L Normal 21-34 [facility] Comment on above: Performed By: #### C MP #### [facility] [address] [place] [address] Creatinine [Mass/Vol] 0.93 mg/dL Normal 0.50-1.17 [facility] Comment on above: Performed By: #### C MP #### [facility] [address] [place] [address] EGFR Other Races >60 Normal >60 [facility] Comment on above: Performed By: #### C MP #### [facility] [address] [place] [address] GFR/1.73 sq M.predicted among blacks MDRD (S/P/Bld) [Vol rate/Area] mL/min/{1.73_m2} Normal >60 [facility] Comment on above: Result Comment: [employer] Delivery Driver ceci Kidney Disease less than 60 mL/min/1.73 m2 Kidney Failure less than 15 mL/min/1.73 m2 Average estimated GFR by age: 40-49 years 99 mL/min/1.73 m2 Performed By: #### C MP #### [facility] [address] [place] [address] Globulin (S) [Mass/Vol] 3.3 g/dL Normal 1.5-4.5 [facility] Comment on above: Performed By: #### C MP #### [facility] [address] [place] [address] Glucose [Mass/Vol] 124 mg/dL High 65-100 [facility] Comment on above: Performed By: #### C MP #### [facility] [address] [place] [address] Potassium [Moles/Vol] 3.8 mmol/L Normal 3.3-5.1 [facility] Comment on above: Performed By: #### C MP #### [facility] [address] [place] [address] Protein [Mass/Vol] 6.8 g/dL Normal 6.1-8.2 [facility] Comment on above: Performed By: #### C MP #### [facility] [address] [place] [address] Sodium [Moles/Vol] 140 mmol/L Normal 132-145 [facility] Comment on above: Performed By: #### C MP #### [facility] [address] [place], [place] 0[address] Urea nitrogen [Mass/Vol] 13.4 mg/dL Normal 3.2-26.9 [facility] Comment on above: Performed By: #### C MP #### [facility] [address] [place], [place] [address] Urea nitrogen/Creatinine [Mass ratio] 14 mg/mg Normal 6-20 [facility] Comment on above: Performed By: #### C MP #### [facility] [address] [place], [place] [id number] D-Dimeron 03-03-2021 D-Dimer 0.28 mg/L FEU Normal 0.00-0.49 [facility] Comment on above: Result Comment: Nega tive [...] -Liver cirrhosis - Performed By: #### D RUBEN #### [facility] [address] [place], [place] [id number] EMERGENCY DEPARTMENTon 03-03 EMERGENCY DEPARTMENT [place] [id number] HEALTH INFORMATION MANAGEMENT EMERGENCY DEPARTMENT : [phone] Signed Patient: DONTAE PARRA Acct:[id number] MRUN: Lolly [id number] : 1975 Sex: M Loc: ED ADM [...] IN AND I CANT GET MY HEAD RIGHT." PATIENT ALSO REPORTS DIZZINESS. Denies any injury [...] Feels Threatened In a Relationship: No - Childs/Gender ID What is your current Gender Identity? Choose all that Apply: Male - Wilson-Suicide Severity Rating Scale 1) Wish to be [...] - Head (more content not included)... Normal [facility] High Sensitivity TNIon 03-03 Abs Change hsTnI 1 ng/L Normal [facility] Comment on above: Performed By: #### H STNI #### [facility] [address] [place], [place] [id number] Delta % hsTnI 8 % Normal [facility] Comment on above: Performed By: #### H STNI #### [facility] [address] [place], [place] [address] High Sensitivity TNI 13 ng/L Normal 0-76 [facility] Comment on above: Result Comment: Inte rpretation comment: High-sensitivity troponin I (hsTnI) assay can reliably detect low troponin concentrations relative to conventional troponin assays. It is the preferred marker of myocardial necrosis as recommended by the Fourth [place] Definition of Myocardial Infarction Guidelines. The diagnosis [...] significant. Performed By: #### H STNI #### [facility] [address] [place] [address] High Sensitivity TNI 12 ng/L Normal 0-76 [facility] Comment on above: Result Comment: Inte rpretation comment: High-sensitivity troponin I (hsTnI) assay can reliably detect low troponin concentrations relative to conventional troponin assays. It is the preferred marker of myocardial necrosis as recommended by the Fourth [place] Definition of Myocardial Infarction Guidelines. The diagnosis [...] considered significant. Performed By: #### H STNI ####[facility] [place] [address] NT Pro-BNPon 03-03-2021 Natriuretic peptide B (Bld) [Mass/Vol] 45 pg/mL Normal 0-125 [facility] Comment on above: Result Comment: NOTE -Dietary supplements containing high biotin levels may cause significant interference with affected lab tests, including cardiovascular diagnostic tests and hormone tests that use biotin technology. Incorrect test results may be generated if there is biotin in the patients specimen. Performed By: #### P BNPG #### [facility] [address] [place] [address] PTTon 03-03-2021 aPTT Coag (Bld) [Time] 24.7 s Normal 19.5-32.1 [facility] Comment on above: Result Comment: New Reference Ranges effective 2017. Performed By: #### P TT #### [address] [address] Prothrombin Timeon 2 INR Coag (PPP) [Relative time] 0.93 {INR} Normal [facility] Comment on above: Result Comment: 2.0 - 3.0 Group A 2.5 - 3.5 Group B Group A indications: Prophylaxis and treatment of venous thrombosis. Treatment of pulmonary embolism. Prevention of systemic embolism. Tissue heart valves. Acute myocardial infarction. Valvular heart disease. Atrial fibrillation. Group B indications: Mechanical prosthetic valves. . Performed By: #### P T ####[place] [address] [place] [address] PT Coag (PPP) [Time] 9.0 s Normal 8.9-12.2 [facility] Comment on above: Result Comment: New Reference Ranges effective 2017. Performed By: #### P T ####[facility] [place] [address] 2019 Novel Coronavirus (CoVI D-19), NAAon 02-23-2021 SARS-CoV-2 (COVID-19) RNA [place]+probe Ql (Unsp spec) Detected Abnormal Not Detected [facility] Comment on above: Result Comment: Stefanie ents who have a positive COVID-19 test result may now have treatment options. Treatment options are available for patients with mild to moderate symptoms and for hospitalized patients. Visit our website at [email or web address] for resources and information. This nucleic acid amplification test was developed and its performance characteristics determined by [employer]. Nucleic acid amplification tests include RT-PCR and [...] detected) result in this assay. Performed at: [address] [id number] [facility] Home: Trent Live PhD, Phone: [phone] Performed By: #### L COV #### [facility] [address] [address] CHEST APon 02-22-2021 CHEST AP EXAMINATION: ONE XRAY VIEW OF THE CHEST 02/22/2021 11:50 am COMPARISON: None. HISTORY: ORDERING SYSTEM PROVIDED HISTORY: cough FINDINGS: Cardiomediastinal silhouette: No cardiomegaly or obvious acute process is identified. Lungs/pleura: No acute pulmonary infiltrate, pleural effusion, or pneumothorax is identified. Other: No additional acute abnormality. IMPRESSION: No acute cardiopulmonary process is identified by PA chest x-ray. Normal [facility] EMERGENCY DEPARTMENTon 02-22 EMERGENCY DEPARTMENT [place] [address] [place] [address] HEALTH INFORMATION MANAGEMENT EMERGENCY DEPARTMENT : [phone] Signed Patient: DONTAE PARRA Acct:[id number] MRUN: Lolly [id number] : 1975 Sex: M Loc: ED ADM [...] illness exposure, smoke exposure, unknown cause Treatments PRIMARY CLASS TEACHER: none - Related Data Home medications and [...] Feels Threatened In a Relationship: No - Childs/Gender ID What is your current Gender Identity? Choose all that Apply: Male - Wilson-Suicide Severity Rating Scale 1) Wish to be [...] - Nec (more content not included)... Normal [facility] SARS Antigen (Rapid)on 02-22 SARS Antigen Negative Normal Negative [facility] Comment on above: Result Comment: The Gala 2 SARS Antigen [place] is a lateral flow immunofluorescent sandwich assay that is used with the Gala 2 instrument intended for the qualitative detection of the nucleocapsid protein antigen from SARS-CoV-2 in nasopharyngeal (PHOTOGRAPH PRINTER) and nasal (NS) swab specimens directly or [...] COVID-19. Performed By: #### C OVAG #### [address] [address] Echo Stress Echo w/wo Contra ston 12-20-2016 Echo Stress Echo w/wo Contrast Patient Name: DONTAE PARRA Ultrasound Exam Date/Time 12/20/2016 14:13:30 EDT Exam Echo Stress Echo w/wo Contrast Ordering Physician VAUGHN VILLEGAS CAYLA Accession Number [id number] Reason For Exam angina Report STRESS ECHOCARDIOGRAM Rito Protocol PATIENT: Dontae Parra STUDY DATE: 12/20/2016 : 1975 AGE: 41 HT/WT: 182.9 cm (72 98.9 kg in) (217.5 lb) GENDER: M BP: LOCATION: [facility] and PATIENT Outpatient [facility] STATUS: *ORDERING PHYSICIAN: * Merly Villegas *SUPERVISING PHYSICIAN: * Jimbo *RN: * Mike Howard RN Olinger, Redle, MD Debra *READING PHYSICIAN: Omid Butler MD *SURVEILLANCE AGENT: * Rosalva Mack --- INDICATIONS: Angina decubitus [...] Isosorbide Patient is NPO per policy. Catheterization (2015). There was a stenosis which was treated [...] peak heart rate and blood pressure [place] [address] mm Hg/min. 3 out of 10 stress-induced [...] 12/20/2016 4:36 pm Signed by: JIMBO BUTLER [facility] CR Chest Portableon 11-21-19 CR Chest Portable Patient Name: DONTAE PARRA Diagnostic Radiology Exam Date/Time 11/20/2016 21:47:24 EDT Exam CR Chest Portable Ordering Physician BERTO CALERO SCOTT Accession Number [id number] CPT4 Codes 71866 () Reason For Exam chest pain Report [...] ANTHONY Transcribed Date and Time: 11/20/2016 9:54 [facility] CTA Chest/Abdomen/Pelvis w/ + w/o contraon 11-20-2016 CTA Chest/Abdomen/Pelvis w/ + w/o contra Patient Name: DONTAE PARRA CT Exam Date/Time 11/20/2016 20:56:40 EDT Exam CTA Chest/Abdomen/Pelvis w/ + w/o contra Ordering Physician MD FLORES AUSTIN Accession Number [id number] CPT4 Codes Q9967 (), 99238 (), 05054 () Reason For Exam chest/abdominal pain. concern [...] were concurrently generated by me on the [employer] workstation to better visualize gross vascular anatomy. [...] of the abdominal aorta were generated by on the [employer] workstation. There is no evidence for abdominal [...] arteries were generated by me on the [employer] workstation. There is no evidence for common, [...] Transcribed Date and Time: 11/20/2016 9:54 Normal [facility] Comp Metabolic Panelon 11-20 Anion gap 10 mmol/L Normal [facility] Comment on above: Performed By: #### H LESLY CMP3, TROPN ####[address] [address] Alkaline phosphatase (ALP) 92 U/L Normal 45-117 [facility] Comment on above: Performed By: #### H LESLY CMP3, TROPN ####[address] [address] Protein 7.0 g/dL Normal 6.4-8.2 [facility] Comment on above: Performed By: #### H EMOAnne Marie CMP3, TROPN ####[address] [address] Bilirubin (total) 0.6 mg/dL Normal 0.2-1.0 [facility] System Comment on above: Performed By: #### H EMOG, CMP3, TROPN ####[address] [address] Alanine aminotransferase (ALT) 22 U/L Normal 12-78 [facility] Comment on above: Performed By: #### H EMOG, CMP3, TROPN ####[address] [address] Aspartate aminotransferase (AST) 13 U/L Low 15-37 [facility] Comment on above: Result Comment: Slig htly hemolysed, interpret with caution. Performed By: #### H CATHY GRACE3, TROPN ####[address] [place] [address] Creatinine 1.09 mg/dL Normal 0.55-1.40 [facility] Comment on above: Performed By: #### H LESLY CMP3, TROPN ####[address] [place] [address] eGFR (black) mL/min/{1.73_m2} Normal >60 [facility] Comment on above: Performed By: #### H CATHY GRACE3, TROPN ####[address] [place] [address] eGFR (non-black) mL/min/{1.73_m2} Normal >60 [facility] Comment on above: Result Comment: Sour ce- MDRD equation with creatinine calibration to IDMS(NKDEP)eGFR not recommended for drug dose adjustment Performed By: #### H LESLY CMP3, TROPN ####[address] [place] [address] Albumin 3.7 g/dL Normal 3.4-5.0 [facility] Comment on above: Performed By: #### H LESLY CMP3, TROPN ####[address] [place] [address] Chloride 106 mmol/L Normal 98-109 [facility] Comment on above: Performed By: #### H LESLY CMP3, TROPN ####[address] [place] [address] Glucose mass conc 160 mg/dL High 70-100 [facility] Comment on above: Performed By: #### H LESLY CMP3, TROPN ####[address] [place] [address] Potassium molar conc 3.5 mmol/L Normal 3.5-5.1 [facility] Comment on above: Result Comment: Slig htly hemolysed, interpret with caution. Performed By: #### H LESLY CMP3, TROPN ####[address] [place] [address] Sodium 142 mmol/L Normal 135-145 [facility] Comment on above: Performed By: #### H EMOG, CMP3, TROPN ####[address] [place] [address] Urea nitrogen 14 mg/dL Normal 7-25 [facility] Comment on above: Performed By: #### H EMOG, CMP3, TROPN ####[address] [place] [address] Calcium 9.0 mg/dL Normal 8.2-10.1 [facility] Comment on above: Performed By: #### H EMOAnne Marie CMP3, TROPN ####[address] [place] [address] CO2 26 mmol/L Normal 21-32 [facility] Comment on above: Performed By: #### H EMOAnne Marie CMP3, TROPN ####[address] [place] [address] Hemogramon 11-20-2016 Erythrocyte distribution width Auto Ratio (RBC) 13.4 % Normal 11.5-14.5 [facility] Comment on above: Performed By: #### H EMOAnne Marie, CMP3, TROPN ####[address] [place] [address] Erythrocytes (RBC) 5.01 10*6/uL Normal 4.40-5.90 [facility] Comment on above: Performed By: #### H EMOG, CMP3, TROPN ####[address] [place] [address] Hematocrit (HCT) 44.6 % Normal 40.0-52.0 [facility] Comment on above: Performed By: #### H EMOAnne Marie, CMP3, TROPN ####[address] [place] [address] Hemoglobin mass conc (Bld) 15.3 g/dL Normal 13.0-18.0 [facility] Comment on above: Performed By: #### H EMOG, CMP3, TROPN ####[address] [address] MCH 30.5 pg Normal 26.0-34.0 [facility] Comment on above: Performed By: #### H LESLY CMP3, TROPN ####[address] [address] MCHC mass conc (RBC) 34.3 % Normal 32.0-36.0 [facility] Comment on above: Performed By: #### H LESLY CMP3, TROPN ####[address] [address] MCV 88.9 fL Normal 80.0-98.0 [facility] Comment on above: Performed By: #### H CATHY GRACE3, TROPN ####[address] [address] Platelet mean volume (PMV) 6.8 fL Low 7.4-10.4 [facility] Comment on above: Performed By: #### H LESLY CMP3, TROPN ####[address] [address] Platelets 323 10*3/uL Normal 140-440 [facility] Comment on above: Performed By: #### H LESLY CMP3, TROPN ####[address] [address] WBC (Leukocytes) 8.9 10*3/uL Normal 3.6-10.7 [facility] Comment on above: Performed By: #### H LESLY CMP3, TROPN ####[address] [address] Troponin Ion 11-20-2016 Troponin I.cardiac mass conc ng/mL Normal 0.000-0.04 5 [facility] Comment on above: Result Comment: 0.04 6 - 0.400 = Indeterminate> 0.400 = Consider Myocardial Injury Performed By: #### H LESLY CMP3, TROPN ####[address] [address] Basic Metabolic Panelon 08-0 Anion gap 9 mmol/L Normal [facility] Comment on above: Performed By: #### H EMDF, BMP3, TROPN ####[address] [place] [address] Creatinine 1.14 mg/dL Normal 0.55-1.40 [facility] Comment on above: Performed By: #### H EMDF, BMP3, TROPN ####[address] [place] [address] eGFR (black) mL/min/{1.73_m2} Normal >60 [facility] Comment on above: Performed By: #### H EMDF, BMP3, TROPN ####[address] [place] [address] eGFR (non-black) mL/min/{1.73_m2} Normal >60 [facility] Comment on above: Result Comment: Sour ce- MDRD equation with creatinine calibration to IDMS(NKDEP)eGFR not recommended for drug dose adjustment Performed By: #### H EMDF, BMP3, TROPN ####[address] [place] [address] Glucose mass conc 98 mg/dL Normal 70-100 [facility] Comment on above: Performed By: #### H EMDF, BMP3, TROPN ####[address] [place] [address] CO2 27 mmol/L Normal 21-32 [facility] Comment on above: Performed By: #### H EMDF, BMP3, TROPN ####[address] [place] [address] Urea nitrogen 11 mg/dL Normal 7-25 [facility] Comment on above: Performed By: #### H EMDF, BMP3, TROPN ####[address] [place] [address] Calcium 9.4 mg/dL Normal 8.2-10.1 [facility] Comment on above: Performed By: #### H EMDF, BMP3, TROPN ####[address] [place] [address] Chloride 106 mmol/L Normal 98-109 [facility] Comment on above: Performed By: #### H EMDF, BMP3, TROPN ####[address] [place] [address] Potassium molar conc 3.8 mmol/L Normal 3.5-5.1 [facility] Comment on above: Result Comment: Slig htly hemolysed, interpret with caution. Performed By: #### H EMDF, BMP3, TROPN ####[address] [place] [address] Sodium 142 mmol/L Normal 135-145 [facility] Comment on above: Performed By: #### H EMDF, BMP3, TROPN ####[address] [address] CR Chest PA/LATon 09-19-2016 CR Chest PA/LAT Patient Name: DONTAE PARRA Diagnostic Radiology Exam Date/Time 09/19/2016 09:05:22 EDT Exam CR Chest PA/LAT Ordering Physician NESSA NGUYEN, PERRY SEPULVEDA Accession Number [id number] CPT4 Codes 74789 () Reason For Exam CP Report Clinical [...] Transcribed Date and Time: 09/19/2016 9:41 Normal [facility] Hemogram w/ Autodiffon 09-19 Abs Baso Cnt 0.0 10*3/uL Normal 0.0-0.2 [facility] Comment on above: Performed By: #### H EMDF, BMP3, TROPN ####[address] [place] [address] Basophils/100 WBC Auto (Bld) 0.5 % Normal [facility] Comment on above: Performed By: #### H EMDF, BMP3, TROPN ####[address] [address] Eosinophils 0.1 10*3/uL Normal 0.0-0.5 [facility] Comment on above: Performed By: #### H EMDF, BMP3, TROPN ####[address] [address] Eosinophils/100 leukocytes 1.9 % Normal [facility] Comment on above: Performed By: #### H EMDF, BMP3, TROPN ####[address] [address] Erythrocyte distribution width Auto Ratio (RBC) 13.3 % Normal 11.5-14.5 [facility] Comment on above: Performed By: #### H EMDF, BMP3, TROPN ####[place] [address] Erythrocytes (RBC) 5.06 10*6/uL Normal 4.40-5.90 [facility] Comment on above: Performed By: #### H EMDF, BMP3, TROPN ####[address] [address] Granulocytes/100 WBC (Bld) 68.6 % Normal [facility] Comment on above: Performed By: #### H EMDF, BMP3, TROPN ####[place] [address] Hematocrit (HCT) 44.5 % Normal 40.0-52.0 [facility] Comment on above: Performed By: #### H EMDF, BMP3, TROPN ####[address] [address] Hemoglobin mass conc (Bld) 15.2 g/dL Normal 13.0-18.0 [facility] Comment on above: Performed By: #### H EMDF, BMP3, TROPN ####[address] [address] Lymphocytes 1.8 10*3/uL Normal 1.0-4.3 [facility] Comment on above: Performed By: #### H EMDF, BMP3, TROPN ####[address] [place] [address] Lymphocytes/100 leukocytes 22.6 % Normal [facility] Comment on above: Performed By: #### H EMDF, BMP3, TROPN ####[address] [place] [address] MCH 30.1 pg Normal 26.0-34.0 [facility] Comment on above: Performed By: #### H EMDF, BMP3, TROPN ####[address] [place] [address] MCHC mass conc (RBC) 34.2 % Normal 32.0-36.0 [facility] Comment on above: Performed By: #### H EMDF, BMP3, TROPN ####[address] [place] [address] MCV 87.9 fL Normal 80.0-98.0 [facility] Comment on above: Performed By: #### H EMDF, BMP3, TROPN ####[address] [place] [address] Monocytes 0.5 10*3/uL Normal 0.0-0.8 [facility] Comment on above: Performed By: #### H EMDF, BMP3, TROPN ####[address] [place] [address] Monocytes/100 leukocytes 6.4 % Normal [facility] Comment on above: Performed By: #### H EMDF, BMP3, TROPN ####[address] [place] [address] Neutrophils 5.5 10*3/uL Normal 1.8-7.0 [facility] Comment on above: Performed By: #### H EMDF, BMP3, TROPN ####[address] [place] [address] Platelet mean volume (PMV) 6.7 fL Low 7.4-10.4 [facility] Comment on above: Performed By: #### H EMDF, BMP3, TROPN ####[address] [place] [address] Platelets 281 10*3/uL Normal 140-440 [facility] [employer] [facility] Comment on above: Performed By: #### H EMDF, BMP3, TROPN ####[address] [address] WBC (Leukocytes) 8.1 10*3/uL Normal 3.6-10.7 [facility] Comment on above: Performed By: #### H EMDF, BMP3, TROPN ####[address] [place] [address] Troponin Ion 09-19-2016 Troponin I.cardiac mass conc 0.061 ng/mL High 0.000-0.04 5 [facility] Comment on above: Result Comment: 0.04 6 - 0.400 = Indeterminate> 0.400 = Consider Myocardial Injury Performed By: #### H EMDF, BMP3, TROPN ####[address] [place] [address] Vital Signs Date Time Vital Sign Value Performing Clinician Facility 12-01-2023 11:28-0400 SaO2% (BldA) [Mass fraction] 92 % [email or web address] Thomas DO Work Phone[facility] 12-01-2023 10:30-0400 Body temperature 98.4 [degF] [email or web address] Thomas DO Work Phone: [facility] 12-01-2023 10:30-0400 Diastolic blood pressure 69 mm[Hg] [email or web address] Thomas DO Work Phone: [facility] 12-01-2023 10:30-0400 Heart rate 78 /min [email or web address] Thomas DO Work Phone: [employer] 12-01-2023 10:30-0400 Systolic blood pressure 116 mm[Hg] [email or web address] Thomas DO Work Phone: [facility] 12-01-2023 08:12-0400 Respiratory rate 20 /min [employer] DO Work Phone: [facility] 12-01-2023 02:57-0400 Body height 182.9 cm Cabrera Whitakerel DO Work Phone: [facility] 12-01-2023 02:57-0400 Body mass index (BMI) [Ratio] 29.16 kg/m2 Cabrera Thomas DO Work Phone: [facility] 12-01-2023 02:57-0400 Body weight 97.52 kg Cabrera Whitakerel DO Work Phone: [facility] 04-25-2023 12:47-0500 Body height 182.[address] Tim Alvarado Work Phone: [facility] 04-25-2023 12:47-0500 Body weight 99.[address] Tim Alvarado Work Phone: [facility] 04-25-2023 12:47-0500 Heart rate 89 /min Dr. Tim Alvarado Work Phone: [facility] 04-25-2023 12:47-0500 SaO2% (BldA) [Mass fraction] 95 % Dr. Tim Alvarado Work Phone: [facility] 03-21-2023 06:21-0500 Body mass index (BMI) [Ratio] 30.9 kg/m2 Dr. Tim Alvarado Work Phone: [facility] 03-21-2023 06:21-0500 Body temperature 97.1 [degF] Dr. Tim Alvarado Work Phone: [facility] 03-21-2023 06:21-0500 Body weight 103.[address] Tim Alvarado Work Phone: [facility] 03-21-2023 06:21-0500 Diastolic blood pressure 81 mm[Hg] Dr. Tim Alvarado Work Phone: [facility] 03-21-2023 06:21-0500 Heart rate 80 /min Dr. Tim Alvarado Work Phone: [facility] 03-21-2023 06:21-0500 Respiratory rate 20 /min Dr. Tim Alvarado Work Phone: [facility] 03-21-2023 06:21-0500 SaO2% (BldA) [Mass fraction] 94 % Dr. Tim Alvarado Work Phone: [facility] 03-21-2023 06:21-0500 Systolic blood pressure 123 mm[Hg] Dr. Tim Alvarado Work Phone: [facility] 03-01-2023 13:55-0500 Body mass index (BMI) [Ratio] 31.4 kg/m2 Dr. Tim Alvarado Work Phone: [facility] 03-01-2023 13:55-0500 Body weight 105.[address] Tim Alvarado Work Phone: [facility] 03-01-2023 13:55-0500 Diastolic blood pressure 69 mm[Hg] Dr. Tim Alvarado Work Phone: [facility] 03-01-2023 13:55-0500 Heart rate 82 /min Dr. Tim Alvarado Work Phone: [facility] 03-01-2023 13:55-0500 Respiratory rate 18 /min Dr. Tim Alvarado Work Phone: [facility] 03-01-2023 13:55-0500 Systolic blood pressure 116 mm[Hg] Dr. Tim Alvarado Work Phone: [facility] 01-24-2023 03:58-0500 Diastolic blood pressure 74 mm[Hg] Dr. Bria Olsen Work Phone: [facility] 01-24-2023 03:58-0500 Heart rate 73 /min Dr. Bria Olsen Work Phone: [facility] 01-24-2023 03:58-0500 Respiratory rate 16 /min Dr. Bria Olsen Work Phone: [facility] 01-24-2023 03:58-0500 SaO2% (BldA) [Mass fraction] 99 % Dr. Bria Olsen Work Phone: [facility] 01-24-2023 03:58-0500 Systolic blood pressure 118 mm[Hg] Dr. Bria Olsen Work Phone: [facility] 01-24-2023 01:58-0500 Body height 182.[address] Bria Olsen Work Phone: [facility] 01-24-2023 01:58-0500 Body mass index (BMI) [Ratio] 31.4 kg/m2 Dr. Bria Olsen Work Phone: [facility] 01-24-2023 01:58-0500 Body temperature 96.8 [degF] Dr. Bria Olsen Work Phone: [facility] 01-24-2023 01:58-0500 Body weight [address] Bria Olsen Work Phone: [facility] 01-22-2023 13:32-0500 Body mass index (BMI) [Ratio] 31.7 kg/m2 Dr. Bria Olsen Work Phone: [facility] 01-22-2023 13:32-0500 Body weight 106.[address] Bria Olsen Work Phone: [facility] 01-22-2023 13:32-0500 Diastolic blood pressure 80 mm[Hg] Dr. Bria Olsen Work Phone: [facility] 01-22-2023 13:32-0500 Heart rate 88 /min Dr. Bria Olsen Work Phone: [facility] 01-22-2023 13:32-0500 Respiratory rate 20 /min Dr. Bria Olsen Work Phone: [facility] 01-22-2023 13:32-0500 Systolic blood pressure 125 mm[Hg] Dr. Bria Olsen Work Phone: [facility] 01-08-2023 07:43-0500 Body mass index (BMI) [Ratio] 30.7 kg/m2 Dr. Bria Olsen Work Phone: [facility] 01-08-2023 07:43-0500 Body temperature 97.4 [degF] Dr. Bria Olsen Work Phone: [facility] 01-08-2023 07:43-0500 Body weight 102.[address] Bria Olsen Work Phone: [facility] 01-08-2023 07:43-0500 Diastolic blood pressure 76 mm[Hg] Dr. Bria Olsen Work Phone: [facility] 01-08-2023 07:43-0500 Heart rate 74 /min Dr. Bria Olsen Work Phone: [facility] 01-08-2023 07:43-0500 Respiratory rate 28 /min Dr. Bria Olsen Work Phone: [facility] 01-08-2023 07:43-0500 SaO2% (BldA) [Mass fraction] 96 % Dr. Bria Olsen Work Phone: [facility] 01-08-2023 07:43-0500 Systolic blood pressure 112 mm[Hg] Dr. Bria Olsen Work Phone: [facility] 11-06-2022 14:27-0400 Body mass index (BMI) [Ratio] 31.4 kg/m2 Dr. Bria Olsen Work Phone: [facility] 11-06-2022 14:27-0400 Body weight 105.[address] Bria Olsen Work Phone: [facility] 11-06-2022 14:27-0400 Diastolic blood pressure 84 mm[Hg] Dr. Bria Olsen Work Phone: [facility] 11-06-2022 14:27-0400 Heart rate 91 /min Dr. Bria Olsen Work Phone: [facility] 11-06-2022 14:27-0400 Respiratory rate 18 /min Dr. Bria Olsen Work Phone: [facility] 11-06-2022 14:27-0400 Systolic blood pressure 136 mm[Hg] Dr. Bria Olsen Work Phone: [facility] 10-17-2022 20:13-0400 Body height 182.9 cm JEANNIE REICHFIELD DO [facility] 10-17-2022 20:13-0400 Body temperature 98.24 [degF] JEANNIE REICHFIELD DO [facility] 10-17-2022 20:13-0400 Body weight 103 kg JEANNIE REICHFIELD DO [facility] 10-17-2022 20:13-0400 Diastolic Blood Pressure Non-Invasive 83 1 JEANNIE REICHFIELD DO [facility] 10-17-2022 20:13-0400 Heart rate 76 /min JEANNIE REICHFIELD DO [facility] 10-17-2022 20:13-0400 Respiratory rate 16 /min JEANNIE REICHFIELD DO [facility] 10-17-2022 20:13-0400 Systolic Blood Pressure Non-Invasive 134 1 JEANNIE REICHFIELD DO [facility] 10-05-2022 08:23-0400 Body mass index (BMI) [Ratio] 31.1 kg/m2 Dr. Bria Olsen Work Phone: [facility] 10-05-2022 08:23-0400 Body temperature 97.5 [degF] Dr. Bria Olsen Work Phone: [facility] 10-05-2022 08:23-0400 Body weight 104.[address] Bria Olsen Work Phone: [facility] 08-17-2023 08:23-0400 Diastolic blood pressure 77 mm[Hg] Dr. Bria Olsen Work Phone: [facility] 10-05-2022 08:23-0400 Heart rate 74 /min Dr. Bria Olsen Work Phone: [facility] 10-05-2022 08:23-0400 Respiratory rate 18 /min Dr. Bria Olsen Work Phone: [facility] 10-05-2022 08:23-0400 SaO2% (BldA) [Mass fraction] 96 % Dr. Bria Olsen Work Phone: [facility] 10-05-2022 08:23-0400 Systolic blood pressure 119 mm[Hg] Dr. Bria Olsen Work Phone: [facility] 08-28-2022 10:43-0400 Body height 182.[address] Jonh Boyd Work Phone: [facility] 08-28-2022 10:40-0400 Body mass index (BMI) [Ratio] 31.6 kg/m2 Dr. Jonh Boyd Work Phone: [facility] 08-28-2022 10:40-0400 Body temperature 98.4 [degF] Dr. Jonh Boyd Work Phone: [facility] 08-28-2022 10:40-0400 Body weight 105.[address] Jonh Boyd Work Phone: [facility] 08-28-2022 10:40-0400 Diastolic blood pressure 72 mm[Hg] Dr. Jonh Boyd Work Phone: [facility] 08-28-2022 10:40-0400 Heart rate 74 /min Dr. Jonh Boyd Work Phone: [facility] 08-28-2022 10:40-0400 Respiratory rate 22 /min Dr. Jonh Boyd Work Phone: [facility] 08-28-2022 10:40-0400 SaO2% (BldA) [Mass fraction] 95 % Dr. Jonh Boyd Work Phone: [facility] 08-28-2022 10:40-0400 Systolic blood pressure 116 mm[Hg] Dr. Jonh Boyd Work Phone: [facility] 07-10-2022 15:03-0400 Respiratory rate 18 /min Dr. Jonh Boyd Work Phone: [facility] 07-10-2022 09:55-0400 Body height 182.[address] Jonh Boyd Work Phone: [facility] 07-10-2022 09:55-0400 Body mass index (BMI) [Ratio] 31.3 kg/m2 Dr. Jonh Boyd Work Phone: [facility] 07-10-2022 09:55-0400 Body temperature 98.5 [degF] Dr. Jonh Boyd Work Phone: [facility] 07-10-2022 09:55-0400 Body weight 104.[address] Jonh Boyd Work Phone: [facility] 07-10-2022 09:55-0400 Diastolic blood pressure 76 mm[Hg] Dr. Jnoh Boyd Work Phone: [facility] 07-10-2022 09:55-0400 Heart rate 97 /min Dr. Jonh Boyd Work Phone: [facility] 07-10-2022 09:55-0400 SaO2% (BldA) [Mass fraction] 98 % Dr. Jonh Boyd Work Phone: [facility] 07-10-2022 09:55-0400 Systolic blood pressure 114 mm[Hg] Dr. Jonh Boyd Work Phone: [facility] 06-15-2022 10:07-0400 Body height 182.[address] Jonh Boyd Work Phone: [facility] 06-15-2022 10:07-0400 Body mass index (BMI) [Ratio] 31.6 kg/m2 Dr. Jonh Boyd Work Phone: [facility] 06-15-2022 10:07-0400 Body weight 105.[address] Jonh Boyd Work Phone: [facility] 06-15-2022 10:07-0400 Diastolic blood pressure 77 mm[Hg] Dr. Jonh Boyd Work Phone: [facility] 06-15-2022 10:07-0400 Heart rate 74 /min Dr. Jonh Boyd Work Phone: [facility] 06-15-2022 10:07-0400 Respiratory rate 16 /min Dr. Jonh Boyd Work Phone: [facility] 06-15-2022 10:07-0400 Systolic blood pressure 126 mm[Hg] Dr. Jonh Boyd Work Phone: [facility] 05-29-2022 10:16-0400 Body height 182.[address] Jonh Boyd Work Phone: [facility] 05-29-2022 10:13-0400 Body mass index (BMI) [Ratio] 30.9 kg/m2 Dr. Jonh Boyd Work Phone: [facility] 05-29-2022 10:13-0400 Body temperature 97.4 [degF] Dr. Jonh Boyd Work Phone: [facility] 05-29-2022 10:13-0400 Body weight 103.[address] Jonh Boyd Work Phone: [facility] 05-29-2022 10:13-0400 Diastolic blood pressure 81 mm[Hg] Dr. Jonh Boyd Work Phone: [facility] 05-29-2022 10:13-0400 Heart rate 79 /min Dr. Jonh Boyd Work Phone: [facility] 05-29-2022 10:13-0400 Respiratory rate 22 /min Dr. Jonh Boyd Work Phone: [facility] 05-29-2022 10:13-0400 SaO2% (BldA) [Mass fraction] 97 % Dr. Jonh Boyd Work Phone: [facility] 05-29-2022 10:13-0400 Systolic blood pressure 133 mm[Hg] Dr. Jonh Boyd Work Phone: [facility] 05-22-2022 09:06-0400 SaO2% (BldA) [Mass fraction] 98 % Dr. Jonh Boyd Work Phone: [facility] 05-22-2022 07:58-0400 Body mass index (BMI) [Ratio] 30.1 kg/m2 Dr. Jonh Boyd Work Phone: [facility] 05-22-2022 07:58-0400 Body temperature 97.6 [degF] Dr. Jonh Boyd Work Phone: [facility] 05-22-2022 07:58-0400 Body weight 100.[address] Jonh Boyd Work Phone: [facility] 05-22-2022 07:58-0400 Diastolic blood pressure 74 mm[Hg] Dr. Jonh Boyd Work Phone: [facility] 05-22-2022 07:58-0400 Heart rate 77 /min Dr. Jonh Boyd Work Phone: [facility] 05-22-2022 07:58-0400 Respiratory rate 18 /min Dr. Jonh Boyd Work Phone: [facility] 05-22-2022 07:58-0400 Systolic blood pressure 107 mm[Hg] Dr. Jonh Boyd Work Phone: [facility] 02-01-2022 19:01-0500 Diastolic Blood Pressure Non-Invasive 60 1 MO GARAY MD [address] 02-01-2022 19:01-0500 Heart rate 78 /min MO GARAY MD [address] 02-01-2022 19:01-0500 Systolic Blood Pressure Non-Invasive 106 1 MO GARAY MD [address] [place] [address] 02-01-2022 16:59-0500 Heart rate 77 /min MO GARAY MD [address] [place] [address] 02-01-2022 15:12-0500 Heart rate 78 /min MO GARAY MD [address] [place] [address] 02-01-2022 13:53-0500 Diastolic Blood Pressure Non-Invasive 60 1 MO GARAY MD [address] [place] [address] 02-01-2022 13:53-0500 Systolic Blood Pressure Non-Invasive 101 1 MO GARAY MD [address] [place] [address] 02-01-2022 13:17-0500 Diastolic Blood Pressure Non-Invasive 60 1 MO GARAY MD [address] [place] [address] 02-01-2022 13:17-0500 Respiratory rate 16 /min MO GARAY MD [address] [place] [address] 02-01-2022 13:17-0500 Systolic Blood Pressure Non-Invasive 103 1 MO GARAY MD [address] [place] [address] 02-01-2022 12:32-0500 Blood Pressure Cuff Size MO GARAY MD [address] 02-01-2022 12:32-0500 Blood Pressure Location MO GARAY MD [address] [place] [address] 02-01-2022 12:32-0500 Blood Pressure Method MO GARAY MD [address] [place] [address] 02-01-2022 12:32-0500 Reason For Taking VItal Signs MO GARAY MD [address] [place] [address] 02-01-2022 12:32-0500 Respiratory rate 16 /min MO GARAY MD [address] [place] [address] 02-01-2022 11:53-0500 Blood Pressure Cuff Size MO GARAY MD [address] [place] [address] 02-01-2022 11:53-0500 Blood Pressure Location MO GARAY MD [address] [place] [address] 02-01-2022 11:53-0500 Blood Pressure Method MO GARAY MD [address] [place] [address] 02-01-2022 11:53-0500 Reason For Taking VItal Signs MO GARAY MD [address] [place] [address] 02-01-2022 05:44-0500 Blood Pressure Cuff Size MO GARAY MD [address] [place] [address] 02-01-2022 05:44-0500 Blood Pressure Location MO GARAY MD [address] [place] [address] 02-01-2022 05:44-0500 Blood Pressure Method MO GARAY MD [address] [place] [address] 02-01-2022 05:44-0500 Body height 185.4 cm MO GARAY MD [address] [place] [address] 02-01-2022 05:44-0500 Body temperature 97.88 [degF] MO GARAY MD [address] [place] [address] 02-01-2022 05:44-0500 Body weight 96.8 kg MO GARAY MD [address] [place] [address] 02-01-2022 05:44-0500 Body weight 28.16 kg/m2 MO GARAY MD [address] [place] [address] 08-31-2021 12:11-0400 Body height 182.9 cm Yony Frias DO Work Phone: [facility] 08-31-2021 12:11-0400 Body weight 100.7 kg Yony Frias DO Work Phone: [facility] 08-31-2021 12:11-0400 Diastolic blood pressure 79 mm[Hg] Yony Frias DO Work Phone: [facility] 08-31-2021 12:11-0400 Heart rate 84 /min Yony Frias DO Work Phone: [facility] 08-31-2021 12:11-0400 SaO2% (BldA) [Mass fraction] 95 % Yony Frias DO Work Phone: [facility] 08-31-2021 12:11-0400 Systolic blood pressure 118 mm[Hg] Yony Frias DO Work Phone: [facility] Encounters Encounter Date Encounter Type Care Provider Facility Start: 12-15-2024 ambulatory JEANNIE ELPIDIO Facilit y:[facility] Start: 11-18-2024 End: 11-18-2024 ambulatory JEANNIE ELPIDIO Facility:[facility] Start: 11-04-2024 End: 11-04-2024 ambulatory JEANNIE ELPIDIO Facility:[facility] Start: 10-31-2024 End: 10-31-2024 ambulatory JEANNIE ELPIDIO Facility:[facility] Start: 10-28-2024 End: 11-01-2024 ambulatory JEANNIE ELPIDIO METER/RELAY [employer]NER Facility:[facility] Start: 10-28-2024 End: 11-01-2024 Outreach Lab JEANNIE ELPIDIO METER/RELAY [employer]SM[employer] Start: 10-08-2024 End: 10-08-2024 ambulatory JEANNIE ELPIDIO Facility:[facility] Start: 09-29-2024 End: 09-29-2024 ambulatory JEANNIE ELPIDIO Facility:[facility] Start: 09-25-2024 End: 09-25-2024 ambulatory JEANNIE ELPIDIO Facility:[facility] Start: 09-05-2024 End: 09-05-2024 ambulatory JEANNIE ELPIDIO Facility:[facility] Start: 09-04-2024 ambulatory Calvin Jasso Facility :[facility] Start: 09-04-2024 End: 09-04-2024 ambulatory Calvin Jasso Facility:[facility] Start: 07-28-2024 End: 07-28-2024 ambulatory JEANNIE ELPIDIO METER/[employer]LAY [employer]NER Facility:[facility] Start: 07-28-2024 End: 07-28-2024 Patient encounter procedure MICHELLE MOORE METER/RELAY CRA[employer] - [employer] [facility] Start: 07-25-2024 End: 07-25-2024 ambulatory JEANNIE ELPIDIO METER/[employer]LAY [employer]NER Facility:[facility] Start: 07-25-2024 End: 07-25-2024 Patient encounter procedure JEANNIE ELPIDIO METER/[employer]LAY [employer]NER [facility] Start: 06-27-2024 End: 06-27-2024 ambulatory Raina Orozco Facility:[facility] Start: 06-19-2024 End: 06-19-2024 ambulatory JEANNIE ELPIDIO METER/[employer]LAY [employer]INNER Facility:[facility] Start: 06-19-2024 End: 06-19-2024 Patient encounter procedure JEANNIE ELPIDIO METER/[employer]LAY [employer]NER [facility] Start: 06-18-2024 End: 06-18-2024 ambulatory JEANNIE ELPIDIO METER/[employer]LAY [employer]NER Facility:[facility] Start: 06-18-2024 End: 06-18-2024 Patient encounter procedure JEANNIE ELPIDIO METER/[employer]LAY [employer]NER [facility] Start: 05-14-2024 End: 05-14-2024 ambulatory Delores Pablo Facility:[facility] Start: 04-17-2024 ambulatory Elda Villegas NP Facility :[facility] Start: 04-11-2024 End: 04-11-2024 ambulatory Delores Pablo Facility:[facility] Start: 04-09-2024 ambulatory Alba Bernal Facility: [facility] Start: 03-28-2024 End: 03-28-2024 ambulatory Elda Villegas NP Facility:[facility] Start: 03-03-2024 ambulatory Bria Olsen [facility] Start: 02-29-2024 End: 02-29-2024 ambulatory Delores Pablo Facility:[facility] Start: 02-26-2024 End: 02-26-2024 ambulatory Elda Villegas PHOTOGRAPH PRINTER Facility:[facility] Start: 02-21-2024 End: 02-21-2024 ambulatory Delores Pablo Facility:[facility] Start: 02-19-2024 End: 02-19-2024 ambulatory JEANNIE ZHANGETLER Facility:[facility] Start: 02-19-2024 End: 02-19-2024 ambulatory Delores Pablo Facility:[facility] Start: 01-21-2024 End: 01-21-2024 ambulatory JEANNIE ELPIDIO Facility:[facility] Start: 01-14-2024 End: 01-14-2024 ambulatory Delores Pablo Facility:[facility] Start: 01-08-2024 End: 01-08-2024 ambulatory JEANNIE ELPIDIO Facility:[facility] Start: 12-25-2023 ambulatory JEANNIE ELPIDIO Facilit y:[facility] Start: 12-19-2023 End: 12-19-2023 ambulatory LAURA WARREN METER/[employer]LAY [employer]NER Facility:[facility] Start: 12-19-2023 End: 12-19-2023 Patient encounter procedure LAURA LOPEZARCADIO METER/RELAY [employer]NER [facility] Start: 12-01-2023 End: 12-01-2023 Evaluation and management of inpatient Cabrera Thomas DO Work Phone: [facility] Respiratory Unit 7W Comment on above: Fall, initial encoun ter (Primary Dx) Start: 11-30-2023 End: 12-01-2023 Emergency department patient visit MUMTAZ ESCALANTE [facility] Start: 06-20-2023 End: 06-20-2023 ambulatory Out of Town Doctor [facility] Work Phone: Start: 06-20-2023 End: 06-20-2023 Patient encounter procedure [facility] Work Phone: Start: 04-26-2023 Non-patient / Non-visit Dr. Ortega Work Phone: [facility] Start: 04-25-2023 End: 04-25-[address] Tim Alvarado Work Phone: [facility] Work Phone: Start: 04-25-2023 End: 04-25-[address] Tim Alvarado Work Phone: [facility]-Pulmonary Services/Neurology Work Phone: Start: 03-21-2023 End: 03-21-[address] [facility] Work Phone: Start: 03-01-2023 End: 03-01-[address] Tim Alvarado Work Phone: [facility] Work Phone: Start: 01-24-2023 End: 01-24-2023 Emergency department patient visit Dr. Bria Olsen Work Phone: [facility]-Emergency Department Work Phone: Start: 01-22-2023 End: 01-22-[address] Bria Olsen Work Phone: [facility] Work Phone: Start: 01-22-2023 End: 01-22-[address] Bria Olsen Work Phone: [facility]-Radiology, [facility] Work Phone: Start: 01-08-2023 End: 01-08-[address] [facility] Work Phone: Start: 11-10-2022 Non-patient / Non-visit Dr. Jairo Olsen Work Phone: [facility] Start: 11-10-2022 End: 11-10-[address] Bria Olsen Work Phone: [facility]-Cardiovascula [facility] Services Work Phone: Start: 11-06-2022 End: 11-06-[address] Bria Olsen Work Phone: [facility] Work Phone: Start: 10-17-2022 End: 10-17-2022 [facility] Start: 10-17-2022 End: 10-17-2022 Emergency department patient visit [facility] Start: 10-05-2022 End: 10-05-[address] Bria [facility]lsen [facility] Work Phone: Start: 08-28-2022 End: 08-28-[address] Jonh Boyd [facility] Work Phone: Start: 08-15-2022 Non-patient / Non-visit Dr. Frazier Work Phone: [facility] Start: 08-14-2022 End: 08-14-[address] Jonh Boyd Work Phone: [facility] Work Phone: Start: 08-14-2022 End: 08-14-[address] Jonh Boyd Work Phone: [facility]-Pulmonary Services/Neurology Work Phone: Start: 07-18-2022 Non-patient / Non-visit Dr. Frazier Work Phone: [facility] Start: 07-18-2022 End: 07-18-[address] Jnoh Boyd Work Phone: [facility] Work Phone: Start: 07-18-2022 End: 07-18-[address] Jonh Boyd Work Phone: [facility]-Cardiovascula r Services Start: 07-12-2022 End: 07-12-[address] Jonh Boyd Work Phone: [facility] Work Phone: Start: 07-12-2022 End: 07-12-[address] Jonh Boyd Work Phone: [facility]-Laboratory Start: 07-10-2022 End: 07-10-[address] Jonh Boyd Work Phone: [facility]-Sleep Lab Start: 07-10-2022 End: 07-10-2022 Emergency department patient visit Dr. Jonh Boyd Work Phone: [facility]-Emergency Department Start: 06-16-2022 End: 06-16-[address] Jonh Boyd Work Phone: [facility] Work Phone: Start: 06-16-2022 End: 06-16-[address] Jonh Boyd Work Phone: [facility]-Pulmonary Services/Neurology Start: 06-15-2022 End: 06-15-[address] Jonh Boyd Work Phone: [facility] [facility] Start: 06-12-2022 End: 06-12-[address] Jonh Boyd Work Phone: [facility] Work Phone: Start: 06-12-2022 End: 06-12-[address] Jonh Boyd Work Phone: [facility]-Sleep Lab Start: 05-29-2022 End: 05-29-[address] [facility] Start: 05-25-2022 Non-patient / Non-visit Dr. Frazier Work Phone: [facility] Start: 05-25-2022 End: 05-25-[address] Jonh Boyd Work Phone: [facility] Work Phone: Start: 05-25-2022 End: 05-25-[address] Jonh Boyd Work Phone: [facility]-Pulmonary Services/Neurology Start: 05-24-2022 Non-patient / Non-visit Dr. Frazier Work Phone: [facility] Start: 05-22-2022 End: 05-22-[address] Jonh Boyd [facility] Start: 05-05-2022 ambulatory ELDA HUNTER MD Fac ility:[facility] Start: 02-01-2022 End: 02-01-2022 ambulatory MO GARAY MD Facility:[facility] Start: 02-01-2022 End: 02-01-2022 SAME DAY STAY MO GARAY MD [facility] Start: 01-26-2022 ambulatory Monroe Love Facility :[facility] Start: 09-06-2021 End: 09-06-2021 Subsequent hospital visit by physician Provider [facility] Comment on above: HEMOPTYSIS, CHRONIC OBSTRUCTIVE PULMONARY DISEASE Start: 09-01-2021 [facility] [place] Comment on above: Smoking Cessation Procedure Start: 08-31-2021 End: 08-31-2021 Patient encounter procedure Yony Frias DO Work Phone: [facility] Pulmonary/Sleep/[facility] Comment on above: Hemoptysis (Primary Dx); Tobacco use current; Chronic obstructive pulmonary disease, unspecified COPD type (HCC); SOB (shortness of breath) on exertion; Coronary artery disease involving sokaogon coronary artery of sokaogon heart without angina pectoris; History of 2019 novel coronavirus disease (COVID-19) Start: 12-20-2016 Ambulatory MERLY NELLY [facility] Start: 11-20-2016 Ambulatory Dylan Sherita [facility] Start: 09-19-2016 Ambulatory Dylan Sherita [facility] Start: 08-06-2016 End: 08-07-2016 Emergency department patient visit NO REFERRING DR Facility:[facility] Procedures Date Procedure Procedure Detail Performing [...] agent Dr. Jonh Boyd Work Phone: Start: 05-22-2023 Plain chest X-ray Dr. Amy Boyd Work Phone: Start: 06-16-2022 CT angiography of he ad and neck Dr. Jonh Body Work Phone: Start: 06-16-2022 CT of thorax [...] or older (1 - 1-dose 60+ series) [facility] Start: 11-30-2024 Creatinine measurement Creatinine Le laura [facility] Start: 11-30-2024 Potassium measurement Potassium Leve l [facility] Start: 2024 Zoster Vaccines (1 of 2) Zoste r Vaccines (1 of 2) [facility] Start: 10-21-2023 COVID-19 Vaccine ( season) COVID-19 Vaccine ( season) [facility] Start: 10-21-2023 Influenza vaccination Influenza Vacc ine (#1) [facility] Start: 01-24-2023 [facility] Start: 10-20-2021 Influenza vaccination INFLUENZA (#1) [facility] Start: 02-10-2020 Pneumococcal Vaccine : Pediatrics (0 to 5 Years) and At-Risk Patients (6 to 64 Years) (2 of 2 - PPSV23 or PCV20) Pneumococcal Vaccine: Pediatrics (0 to 5 Years) and At-Risk Patients (6 to 64 Years) (2 of 2 - PPSV23 or PCV20) [facility] Start: 08-07-2019 DIABETES SCREEN DIABETES SCREEN [facility] Start: 07-05-2019 COLOGUARD (FIT-DNA) COLOGUARD (FIT-D NA) [facility] Start: 07-05-2019 Colonoscopy COLONOSCOPY [facility] Start: 07-05-2019 COLORECTAL CANCER SCREENING COLORECTAL CANCER SCREENING [facility] Start: 07-05-[address] COLONOGRAPHY [facility] Start: 07-05-2019 FECAL OCCULT BLOOD FECAL OCCULT BLOO D [facility] Start: 07-05-2019 SIGMOIDOSCOPY SIGMOIDOSCOPY [facility] Start: 05-02-2019 LIPID SCREEN LIPID SCREEN [facility] Start: 05-02-2015 Hepatitis B surface antibody level LDL CHOLESTEROL [facility] Start: 1993 DTaP/Tdap/Td Vaccine s (1 - Tdap) DTaP/Tdap/Td Vaccines (1 - Tdap) [facility] Start: 1993 Hepatitis B Vaccines (1 of 3 - 19+ 3-dose series) Hepatitis B Vaccines (1 of 3 - 19+ 3-dose series) [facility] Start: 1993 Urine microalbumin profile DTAP,TDAP ,TD (1 - Tdap) [facility] Start: 1992 ANNUAL PCP TEAM HISTORIOGRAPHER CECI DISEASE VISIT ANNUAL PCP TEAM CHRONIC DISEASE VISIT [facility] Start: 1992 Diabetes mellitus screening Diabetes Screening [facility] Start: 1992 HEPATITIS C SCREENING HEPATITIS C [facility] Start: 1992 Hepatitis C screening Hepatitis C [facility] Start: 1992 HIV SCREENING HIV SCREENING [facility] Start: 1992 SPIROMETRY SPIROMETRY [facility] Start: 1986 Adult depression scr eening assessment DEPRESSION SCREENING [facility] Start: 1986 Depression Monitoring Depression Mon itoring [facility] Start: 1980 PNEUMOCOCCAL (1 - PCV) PNEUMOCOCCAL (1 - PCV) [facility] Start: 07-05-1975 MMR Vaccines (1 of 1 - Standard series) MMR Vaccines (1 of 1 - Standard series) [facility] Start: 01-04-1975 COVID-19 VACCINE (#1) COVID-19 VACCI NE (#1) [facility] Start: 1974 Echocardiography Echocardiogram [facility] Start: 1974 HIV screening HIV Screening [facility] Start: 1974 Lipid panel Lipid Panel [facility] Start: 1974 Screening for malign ant neoplasm of colon [facility] End: 09-30-2022 BRONCHOSCOPY BRONCHOSCOPY Endoscopy Routine Hemoptysis 1 Occurrences starting 08/31/2021 until 09/30/2022 [facility] Work Phone: Comment on above: 1 Occurrences starti ng 08/31/2021 until 09/30/2022 CT Chest W contrast IV [facility] CTA Head vessels and Neck vessels W contrast IV [facility] Inhalation challenge test report Document --W methacholine inhaled [facility] Patient Education [facility] Work Phone: Patient referral [facility] Work Phone: Radionuclide imaging of perfusion of myocardium under exercise stress [facility] End: 09-30-2022 SPIROMETRY BASELINE ONLY SPIROMETRY BASELINE ONLY PFT Routine SOB (shortness of breath) on exertion 1 Occurrences starting 08/31/2021 until 09/30/2022 [facility] Work Phone: Comment on above: 1 Occurrences starti ng 08/31/2021 until 09/30/2022 Tobacco use cessatio n education [facility] US Heart [facility] Immunizations Immunization Date Immunization Notes Care Provider Klaudia lai 12-02-2023 influenza vaccine tiss-cult subunt (Flucelvax) STANDARD-DOSE injection 0.5 mL Top Rops DO Work Phone: [employer] 12-16-2019 influenza virus vacc ine, unspecified formulation Qualysel DO Work Phone: [facility] [employer] Payers Date Payer Category Payer Medicare [id number] 2024 Private Health Insurance [id number] 2024 Private Health Insurance [id number] 2023 Unknown 2022 Self-pay 2022 Medicaid [id number] 2022 Medicaid [id number] 2022 Unknown [id number] 2021 Unknown [employer] PPO [id number] 2021-Present [phone] [address] [place] [address] PPO [id number] 1974 Unknown [id number] 2.16.840.1.135105.3.579.2.6 27 1974 Unknown [id number] 2.16.840.1.425668.3.579.2.6 27 1974 Unknown [id number] 2.16.840.1.503968.3.579.2.6 27 1974 Unknown [id number] 2.16.840.1.217219.3.579.2.6 51 1974 Unknown [id number] 2.16.840.1.715482.3.579.2.6 27 1974 Unknown [id number] 2.16.840.1.670366.3.579.2.6 27 1974 Unknown [id number] 2.16.840.1.244641.3.579.2.6 27 1974 Unknown [id number] 2.16.840.1.401757.3.579.2.6 27 1974 Unknown [id number] 2.16.840.1.344633.3.579.2.6 27 1974 Unknown [id number] 2.16.840.1.965590.3.579.2.6 27 Unknown [id number] Unknown [id number] 2.16.840.1.717932.3.579.2.4 62 Unknown [id number] 2.16.840.1.470443.3.579.2.4 62 Unknown [id number] 2.16.840.1.391149.3.579.2.4 62 Unknown [id number] 2.16.840.1.294844.3.579.2.4 62 Unknown [id number] 2.16.840.1.446045.3.579.2.4 62 Unknown [id number] 2.16.840.1.549314.3.579.2.4 62 Unknown [id number] 2.16.840.1.584729.3.579.2.4 62 Unknown [id number] 2.16.840.1.932553.3.579.2.4 62 Unknown [id number] 2.16.840.1.580383.3.579.2.4 62 Unknown [id number] 2.16.840.1.124434.3.579.2.4 62 Unknown [id number] 2.16.840.1.923414.3.579.2.4 62 Unknown [id number] 2.16.840.1.882859.3.579.2.4 62 Unknown [id number] 2.16.840.1.649607.3.579.2.4 62 Unknown [id number] 2.16.840.1.046620.3.579.2.4 62 Unknown [id number] 2.16.840.1.507537.3.579.2.4 62 Unknown [id number] 2.16.840.1.634050.3.579.2.4 62 Unknown [id number] 2.16.840.1.092864.3.579.2.4 62 Unknown [id number] 2.16.840.1.809721.3.579.2.4 62 Unknown [id number] 2.16.840.1.236002.3.579.2.4 62 Unknown [id number] 2.16.840.1.808391.3.579.2.4 62 Unknown [id number] 2.16.840.1.999162.3.579.2.4 62 Unknown [id number] 2.16.840.1.501974.3.579.2.4 62 Unknown [id number] 2.16.840.1.887322.3.579.2.4 62 Unknown [id number] 2.16.840.1.694235.3.579.2.4 62 Unknown [id number] 2.16.840.1.021639.3.579.2.4 62 Unknown [id number] 2.16.840.1.050244.3.579.2.4 62 Unknown [id number] 2.16.840.1.025441.3.579.2.4 62 Unknown [id number] 2.16.840.1.730794.3.579.2.4 62 Social History Date Type Detail Facility Start: 02-20-1996 Tobacco smoking stat us MOIS Smokes tobacco daily [facility] Start: 02-20-1996 History of tobacco use Smoker [facility] Start: 08-31-2021 End: 12-01-2023 Cigarettes smoked current (pack per day) - Reported 2 [facility] Start: 08-31-2021 Tobacco use and exposure Smokeless tobacco non-user [facility] Start: 08-31-2021 Alcohol intake Ex-drinker (finding) [facility] Start: 08-31-2021 Tobacco Comment now down to 1. 5 packs daily 08/31/2021 [facility] Start: 1975 Sex Assigned At Not on file C [facility] Start: 08-21-2021 End: 08-31-2021 Exposure to SARS-CoV-2 (event) Not sure [facility] Start: 12-28-2021 Tobacco smoking status Heavy t obacco smoker (finding) [facility] Start: 1975 Sex Assigned At Male A [facility] Start: 05-29-2022 End: 03-21-2023 Tobacco smoking status NHIS Unknown if ever smoked [facility] End: 10-19-2015 History of tobacco use Cigarette Smoker [facility] Start: 01-02-2017 Alcoholic beverage intake Current non-drinker of alcohol (finding) [facility]: 12-01-[address] [facility] Utilities Lillie Luevano [facility] Has the [employer], [employer], [employer], or water company threatened to shut off services in your home in past 12Mo No [facility] How often to you hav e a drink containing alcohol? Never [facility] How many standard drinks containing alcohol do you have on a typical day? Patient does not drink [facility] (I/We) worried wheth er (my/our) food would run out before (I/we) got money to buy more. Never true [facility] Tobacco Nicotine Use: 1 pack daily. Type: Cigarettes. Tobacco use per day: 20. [facility] Tobacco smoking status [facility] Start: 03-12-2019 Sex Male (finding) [facility] Functional Status Date Assessment Result Facility 10-17-2022 Functional Status Standard Safet y ID band on, Call device within reach, Bed in low position, Wheels locked, Upper/Half-Length side-rails up, Bedside Cart Locked, Safety level maintained [facility] 02-01-2022 Functional Status Ambulating in bahena, Ambulating in room [facility] 02-01-2022 Functional Status [facility] 02-01-2022 Functional Status Standard Safet y Safety level maintained [facility] 02-01-2022 Functional Status [facility] 02-01-2022 Functional Status Maintained [facility] Mental Status Date Assessment Result Facility 01-24-2023 Cognitive function Voice/Name [facility] Work Phone: 10-17-2022 Mental Status Orientation Oriented x 4 [facility] 02-01-2022 Mental Status Orientation Oriented x 4 [facility] 02-01-2022 Mental Status [facility] 02-01-2022 Mental Status [facility] Clinical Notes 08-31-2021 to 09-04-2024 Note Date & Type Note Facility 09-04-2024 Note [facility] Medical Records Department [address] [place] [address] History Physical Exam 09/04/24 0652 MR#: [id number] Acct: [id number] Name: DONTAE PARRA Rep #: [id number] : 1975 49 From: Calvin Jasso DO PCP: JOEL CANTOR Status:REG [facility] Location: [place] [address] HPI - General General Date of Admission: [...] just took the whole bottle in one shot" on Sunday night and by Sunday at 2a he had to get up to have a BM. He denied the stool being of significant caliber at the beginning, "it was mostly like water with a lot of blood in it." He provided a picture from Sunday morning [...] nightly use of oxygen at 3 lpm. [facility] Medical History Wears dentures Wears glasses Arthritis [...] failure Hyperlipidemia Atherosclerosis of coronary artery of [place] heart without angina pectoris Chest pain Noncompliance [...] mg PO DAILY 06/15/22 Unknown Hi story capsule,ext.xxzoqil60ft multiphase montelukast 10 mg tablet 10 mg [...] tablet,extended 500 mg PO BID #60 tabs 07/29/24 U nknown Rx release,12 hr benralizumab 30 mg/mL subcutaneous 30 mg subcut Q8W #1 mL 09/19/23 Unknown Rx auto-injector (Fasenra Pen) bupropion HCl (smoking deter) 150 150 mg PO BID #60 tabs 11/06/23 U nknown Rx mg tablet,12 hr sustained-release(smoking deterrent) clopidogrel 75 mg tablet 75 mg PO DAILY #90 tabs 11/08/23 (more content not included)... [facility] 07-25-2024 Note Exam Date Time Procedure Performing Provider Status 07/25/24 1:[address] Head or Brain w/o Contrast NIVIA ROMERO MD; Auth (Verified) [id number] ORIGINAL HISTORY: TIA COMPARISON: No TECHNIQUE: Routine [...] Sign Date: 07/25/2024 2:32:39 PM Ordering Provider: [facility]04-30-2025 Note* Exam Date Time Procedure Performing Provider Status 06/18/24 4:[address] Abd/Pelvis w/ IV Contrast Only LEVON PASCUAL MD; Auth (Verified) [id number] ORIGINAL EXAMINATION: CT OF THE ABDOMEN AND [...] 06/18/2024 6:15:42 PM Ordering Provider: JEANNIE HERNANDEZ [facility]10-30-2024 Note ORIGINAL EXAMINATION: TWO XRAY VIEWS [...] Sign Date: 12/19/2023 5:22:25 PM Ordering Provider: [facility]10-17-2024 NoteDischarge Instructions Discharge Summary [address] [address] [id number] 11/30/2023 Patient: DONTAE PARRA Sex: Male : 1975 Age: 48y Thank you for visiting [facility]. You have been evaluated today by Mumtaz Holley D.O. for the following condition(s): Principal Diagnosis Acute traumatic thoracic back pain. Fall from tree. 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 You have been evaluated today by Mumtaz Holley D.O. for the following condition(s): 1 of 2 Discharge Instructions Principal Diagnosis Acute traumatic thoracic back pain. Fall from tree. [address]10-12-2024 Nurse Note* Maurilio Johnston RN - 12/01/2023 2:34 PM EDT Pt discharging at this time. All belongings collected. Discharge packet reviewed with all questionsanswered. [id number] Nurse Note* Maurilio Johnston RN - 12/01/2023 2:34 PM EDT Pt discharging at this time. All belongings collected. Discharge packet reviewed with all questionsanswered. documented in this [facility]10-12-2024 Note Attestation with edits by Julio [...] w/ RICHY to mid and proximal RCA (2016) HTN HLD Reason for Admission & Hospital Course: Dontae Parra is a 48 y.o. male that presented to [facility] on 12/01/2023 and was admitted for pain control after a fall Patient reportedly fell ~ 15 feet while putting up a tree stand. Fall was mechanical in nature with no concern for syncopal event. Unclear if patient lost consciousness on impact, states he was just very out of it afterwards. Was noted at [facility] to have possible aortic aneurysm vs trauma so was transferred to [facility] for further management. EKG, CT head, and C spine were unremarkable. CTA chest performed at [facility] did not show any evidence of aortic [...] Medications These medications were sent to [facility]/pharmacy #[id number] - [place], [place] - [address] [facility] [address] [place] [id number] Hours: 24-hours cyclobenzaprine 5 MG tablet oxyCODONE [...] at Followup Visit: Symptom resolution Abrasion healing [facility]10-12-2024 Emergency department Note* Jaz Ayoub RN - 12/01/2023 9:52 AM EDT Patient ambulatory to bathroom with steady gait Jaz Ayoub RN 12/01/23 0952 [id number] Emergency department Note* Jaz Ayoub RN - [...] Patient presents with Abdominal Injury Transfer from [place] for trauma consult. Fall from tree stand 15-17 feet. 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 [facility] HISTORY OF PRESENT ILLNESS (Location/Symptom, Timing/Onset, Context/Setting, [...] artery disease) COPD (chronic obstructive pulmonary disease) ([facility]) Emphysema of lung ([facility]) 2010 Erectile dysfunction GERD (gastroesophageal reflux disease) History of echocardiogram 10/20/2015 EF 50%, trivial MR History of percutaneous coronary intervention 02/11/2016 RICHY - prox RCA, RICHY - mid RCA, patent ramus stent, EF 50-55% Hyperlipidemia Hypertension Hypotestosteronism Presence of stent in coronary artery Restless leg STEMI (ST elevation myocardial infarction) ([facility]) 09/2015 posterior wall Tobacco use disorder SURGICAL [...] by me: none Discussions with other clinicians: Internet 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 Fall, initial encounter DISPOSITION Admit PATIENT REFERRED TO: [facility] Trauma - [place] [address] [facility] [address] Schedule an appointment as soon as possible for a visit As needed Dylan Magallon [address] [facility] [address] [place] [phone] Schedule an appointment as soon as possible for a visit Timi Valderrama MD [address] [facility] [address] Follow up [...] [employer] Cabrera Thomas DO 12/01/23 8430 documented in this [facility]10-12-2024 Emergency department Note* Jaz Ayoub RN - 12/01/2023 8:34 AM EDT Provider at bedside for marita Ayoub RN 12/01/23 3772 [facility] [id number] Emergency department Note* Jaz Ayoub RN - 12/01/2023 8:04 AM EDT Patient sat up eating breakfast at this time, provided with extra juice per request, family at bedside, denies current needs at this time, call bernal within reach, care is ongoing Jaz Ayoub RN 12/01/23 0805 [facility] [id number] Emergency department Note* Jaz Ayoub RN - 12/01/2023 7:[address] Jones at bedside Jaz Ayoub RN 12/01/23 0742 [facility] [id number] History and physical note* Tonya Perkins, - [...] (2015), HTN, COPD/emphysema, HLD that presented to [facility] on 12/01/2023 from outside facility ([facility]) Patient reportedly fell from tree stand to the ground, about 15-17 feet. Unclear how fall happened,but came to consciousness on the ground and had landed on his back and hit the R side of his head. Son and found him and felt he seemed concussed on scene. CT with no acute intracranial process.Underwent CT chest at [place] which showed possible aortic aneurysm vs trauma and was transferred to [facility] for further workup In ED, CTA performed which does not show any aortic arch aneurysm. Labs at [place] include CBC andCMP, both of which are [...] artery disease) COPD (chronic obstructive pulmonary disease) ([facility]) Emphysema of lung ([facility]) 2010 Erectile dysfunction GERD (gastroesophageal reflux disease) History of echocardiogram 10/20/2015 EF 50%, trivial MR History of percutaneous coronary intervention 02/11/2016 RICHY - prox RCA, RICHY - mid RCA, patent ramus stent, EF 50-55% Hyperlipidemia Hypertension Hypotestosteronism Presence of stent in coronary artery Restless leg STEMI (ST elevation myocardial infarction) ([facility]) 09/2015 posterior wall Tobacco use disorder Past [...] last 24 hours No results found for: "WBC", "HGB", "HCT", "PLT", "MCV" No results found for: "NA", "K", "CL", "CO2", "BUN", "CREATININE", "GLUCOSE", "CALCIUM", "MG", "PHOS" No results found for: "AST", "ALT", "PROT", "BILITOT", "ALKPHOS", "INR", "APTT", "LIPASE" No results found for: "CKTOTAL", "CKMB", "TROPONINI" No results found for: "PROCAL", "CHOL", "TRIG", "HDL", "TSH", "VITD25", "HGBA1C", "VANCOTROUGH" Assessment and Plan: Active Problems: Concussion Back pain Fall Fall from 15 feet ? Concussion - CT head + C spine at [place] clear - CTA at [facility] with no evidence of aortic aneurysm that was seen on CT chest at [place] -EKG without acute changes from [facility] - Continue to monitor mental status, avoid [...] RUBIA vs CKD - creatinine 1.4 at [place], unknown baseline - Last creatinine in our [...] Medications were sent to nearby open pharmacy. [facility] [id number] Note Attestation with edits by Julio Cesar [...] (2015), HTN, COPD/emphysema, HLD that presented to [facility] on 12/01/2023 from outside facility ([facility]) Patient reportedly fell from tree stand to the ground, about 15-17 feet. Unclear how fall happened, but came to consciousness on the ground and had landed on his back and hit the R side of his head. Son and found him and felt he seemed concussed on scene. CT with no acute intracranial process. Underwent CT chest at [place] which showed possible aortic aneurysm vs trauma and was transferred to [facility] for further workup In ED, CTA performed which does not show any aortic arch aneurysm. Labs at [place] include CBC and CMP, both of which [...] and son and celestina (more content not included)...[facility]10-12-2024 History and physical note* Tonya Perkins, [...] (2015), HTN, COPD/emphysema, HLD that presented to [facility] on 12/01/2023 from outside facility ([facility]) Patient reportedly fell from tree stand to the ground, about 15-17 feet. Unclear how fall happened,but came to consciousness on the ground and had landed on his back and hit the R side of his head. Son and found him and felt he seemed concussed on scene. CT with no acute intracranial process.Underwent CT chest at [place] which showed possible aortic aneurysm vs trauma and was transferred to [facility] for further workup In ED, CTA performed which does not show any aortic arch aneurysm. Labs at [place] include CBC andCMP, both of which are [...] artery disease) COPD (chronic obstructive pulmonary disease) ([facility]) Emphysema of lung ([facility]) 2010 Erectile dysfunction GERD (gastroesophageal reflux disease) History of echocardiogram 10/20/2015 EF 50%, trivial MR History of percutaneous coronary intervention 02/11/2016 RICHY - prox RCA, RICHY - mid RCA, patent ramus stent, EF 50-55% Hyperlipidemia Hypertension Hypotestosteronism Presence of stent in coronary artery Restless leg STEMI (ST elevation myocardial infarction) ([facility]) 09/2015 posterior wall Tobacco use disorder Past [...] Take 75 mg by mouth daily. Historical ProviderMD hydroCHLOROthiazide (HYDRODiuril) 25 MG tablet Take 25 mg by mouth daily. Historical ProviderMD Magnesium 250 MG capsule Take 250 mg by mouth daily. Historical ProviderMD nitroglycerin (Nitrostat) 0.[address] 0.4 mg under the tongue every 5 minutes as needed for chest pain. Historical ProviderMD omeprazole (PriLOSEC) [address] capsule Take 40 mg by mouth every morning (before breakfast). Do notcrush or chew. Historical ProviderMD potassium chloride CR (Klor-Con M20) 20 MEQ ER tablet Take 20 mEq by mouth daily. Do not crush or chew. Historical ProviderMD prazosin (Minipress) 1 MG capsule Take 1 mg by mouth Nightly. Historical ProviderMD ranolazine (Ranexa) 500 MG 12 hr tablet Take 500 mg by mouth 2 times daily. Do not crush, chew, or split. Historical ProviderMD rosuvastatin (Crestor) 10 MG tablet Take 10 mg by mouth daily. Historical ProviderMD traZODone (Desyrel) 50 MG tablet Take 50 mg by mouth Nightly. Historical ProviderMD Objective: Vitals: 12/01/23 0257 12/01/23 0547 12/01/23 [...] last 24 hours No results found for: "WBC", "HGB", "HCT", "PLT", "MCV" No results found for: "NA", "K", "CL", "CO2", "BUN", "CREATININE", "GLUCOSE", "CALCIUM", "MG", "PHOS" No results found for: "AST", "ALT", "PROT", "BILITOT", "ALKPHOS", "INR", "APTT", "LIPASE" No results found for: "CKTOTAL", "CKMB", "TROPONINI" No results found for: "PROCAL", "CHOL", "TRIG", "HDL", "TSH", "VITD25", "HGBA1C", "VANCOTROUGH" Assessment and Plan: Active Problems: Concussion Back pain Fall Fall from 15 feet ? Concussion - CT head + C spine at [place] clear - CTA at [facility] with no evidence of aortic aneurysm that was seen on CT chest at [place] -EKG without acute changes from [facility] - Continue to monitor mental status, avoid [...] RUBIA vs CKD - creatinine 1.4 at [place], unknown baseline - Last creatinine in our [...] to nearby open pharmacy. documented in this [facility]10-12-2024 Hospital Discharge instructions* Discharge Instructions* Baldo [...] - Other Orders* Kathya Crockett APRN - VAUGHN - 12/01/2023 6:29 AM EDT Behavioral Health [...] the following behavioral health agencies for support: [facility] [address] [facility] [address], [facility] [phone] [facility] [address] [facility] [address], [facility] [phone] [facility] [address] [facility], [facility] [phone] Should you be out of the [facility] [place] area, you can use this resource to locate local mental health agencies: [employer] Victim Assistance Program- provides resources and support to victims of violent crimes, offers victim advocates for those involved in legal proceedings 386-562-8916 Should you need immediate help in coping with symptoms or should you feel at risk of harming yourself or others, please use the following crisis resources: Crisis Hotline: 988 Crisis Text Helpine: Text "4HOPE" to 912976 Call 911 or go to your nearest emergency department * Discharge Instr - DANTE* Maurilio Johnston RN - 12/01/2023 2:10 PM EDT * Attachments The following attachments cannot be sent through Care Everywhere. * Concussion Discharge Instructions, Adult (Pashto) documented in this [facility]10-12-2024 Consult note* Jimbo Calvillo MD - 12/01/2023 5:40 AM EDTAssociated Order(s): IP CONSULT TO ORTHOPAEDIC SURGERY Images from the original note were not included. Ortho Spine Consult Patient: Dontae Parra Date of : 1975 Acct: [id number] PCP: Dylan Magallon Date of Admission: 12/01/2023 [...] that when the patient fell he landed "mostly on his low back andbutt". At this time the patient is endorsing [...] artery disease) COPD (chronic obstructive pulmonary disease) ([facility]) Emphysema of lung ([facility]) 2010 Erectile dysfunction GERD (gastroesophageal reflux disease) History of echocardiogram 10/20/2015 EF 50%, trivial MR History of percutaneous coronary intervention 02/11/2016 RICHY - prox RCA, RICHY - mid RCA, patent ramus stent, EF 50-55% Hyperlipidemia Hypertension Hypotestosteronism Presence of stent in coronary artery Restless leg STEMI (ST elevation myocardial infarction) ([facility]) 09/2015 posterior wall Tobacco use disorder Past [...] sharp/dull: present Labs: No results for input(s): "WBC", "HGB", "HCT", "PLT" in the last 72 hours. No results for input(s): "NA", "K", "CL", "CO2", "BUN", "CREATININE", "CALCIUM", "PHOS" in the last72 hours. No lab exists for component: "MAGNES" No results for input(s): "INR" in the last 72 hours. No results for input(s): "SEDRATE", "CRP" in the last 72 hours. No results for input(s): "HCG" in the last 72 hours. The above [...] -Orthopaedic surgery will sign off. Please page director construction services orthopaedic resident for questions or concerns. Baldo Gastelum MD PGY-2 Orthopedic Surgery 12/01/2023 7:14 AM Jimbo Calvillo MD Orthopaedic Surgery, PGY-3 12/01/2023 7:21 AM [facility] Phone: 1(443) 242-664210-12-2024 Consult note* Jimbo Calvillo MD - 12/01/2023 5:40 AM EDTAssociated Order(s): IP CONSULT TO ORTHOPAEDIC SURGERY Images from the original note were not included. Ortho Spine Consult Patient: Dontae Parra Date of : 1975 Acct: [id number] PCP: Dylan Magallon Date of Admission: 12/01/2023 [...] that when the patient fell he landed "mostly on his low back andbutt". At this time the patient is endorsing [...] artery disease) COPD (chronic obstructive pulmonary disease) ([facility]) Emphysema of lung ([facility]) 2010 Erectile dysfunction GERD (gastroesophageal reflux disease) History of echocardiogram 10/20/2015 EF 50%, trivial MR History of percutaneous coronary intervention 02/11/2016 RICHY - prox RCA, RICHY - mid RCA, patent ramus stent, EF 50-55% Hyperlipidemia Hypertension Hypotestosteronism Presence of stent in coronary artery Restless leg STEMI (ST elevation myocardial infarction) ([facility]) 09/2015 posterior wall Tobacco use disorder Past [...] sharp/dull: present Labs: No results for input(s): "WBC", "HGB", "HCT", "PLT" in the last 72 hours. No results for input(s): "NA", "K", "CL", "CO2", "BUN", "CREATININE", "CALCIUM", "PHOS" in the last72 hours. No lab exists for component: "MAGNES" No results for input(s): "INR" in the last 72 hours. No results for input(s): "SEDRATE", "CRP" in the last 72 hours. No results for input(s): "HCG" in the last 72 hours. The above [...] -Orthopaedic surgery will sign off. Please page director construction services orthopaedic resident for questions or concerns. Baldo Gastelum MD PGY-2 Orthopedic Surgery 12/01/2023 7:14 AM Jimbo Calvillo MD Orthopaedic Surgery, PGY-3 12/01/2023 7:21 AM documented in this [facility]10-12-2024 Physician Emergency department Note* Missy Jones DO - 12/01/2023 2:48 AM EDT EMERGENCY DEPARTMENT ENCOUNTER Pt Name: Dontae Parra Birthdate 1975 Date of evaluation: 12/01/2023 ED Provider: Missy Jones DO CHIEF COMPLAINT Chief Complaint Patient presents with Abdominal Injury Transfer from [place] for trauma consult. Fall from tree stand 15-17 feet. 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 [facility] HISTORY OF PRESENT ILLNESS (Location/Symptom, Timing/Onset, Context/Setting, [...] artery disease) COPD (chronic obstructive pulmonary disease) ([facility]) Emphysema of lung ([facility]) 2010 Erectile dysfunction GERD (gastroesophageal reflux disease) History of echocardiogram 10/20/2015 EF 50%, trivial MR History of percutaneous coronary intervention 02/11/2016 RICHY - prox RCA, RICHY - mid RCA, patent ramus stent, EF 50-55% Hyperlipidemia Hypertension Hypotestosteronism Presence of stent in coronary artery Restless leg STEMI (ST elevation myocardial infarction) ([facility]) 09/2015 posterior wall Tobacco use disorder SURGICAL [...] by me: none Discussions with other clinicians: Internet Assessor trauma surgery Chronic conditions impacting care: none [...] initial encounter DISPOSITION Admit PATIENT REFERRED TO: [facility] Tra[facility] - [address] [facility] [address] Schedule an appointment as soon as possible for a visit As needed Dylan Magallon [address] [facility] [address] [facility] [phone] Schedule an appointment as soon as possible for a visit Timi Valderrama MD [address] [facility] [address] Follow up [...] Provider Missy Jones DO Resident 12/01/23 0731 [facility] Work Phone: 1(257) 385-981910-12-2024 Physician Emergency department Note* Cabrera Thomas DO [...] DO [employer] Cabrera Thomas DO 12/01/230 [employer] Phone: 1(672) 100-933703-07-2024 [facility] 10-17-2022 Hospital Discharge instructions Patient Education 10/17/2022 20:15:40 Paraesthesias Paraesthesias Paraesthesia is a burning or prickling sensation that is sometimes felt in the hands, arms, legs orfeet. It can also occur in other parts of the body. It can also feel like tingling or numbness, skin crawling, or itching. The feeling is not comfortable, but it is not painful. (The "pins and needles" feeling that happens when a foot or hand "falls asleep" is a temporary paraesthesia.) Paraesthesias that last [...] medicines you take. This includes prescription and fprl-isx-jjmzfjo medicines, vitamins, and herbs. Ask if any [...] Open wound with redness, swelling, or pus 2015-5067 [employer]. [address] [place] [address]. All rights reserved. This information is not intended as a substitute for professional medical care. Always follow yourhealthcare professional's instructions. Follow Up Care 10/17/2022 20:03:40 With:Go to emergency room if symptoms worsen Address:Unknown When:2-4 days With:DANILO ALVARADO MD Address: [address] [place] [address]- When:2-4 days [facility] 08-29-2023 Emergency department Discharge summary Discharge Instructions Thank you for allowing [facility] to assist you with your healthcare needs. [...] Reason: Injury to arm, Mon-Fri 8am-4:30pm: Call [phone] at 7:30am to schedule a same day appointment for testing. Please be aware there may be a short wait time. Post Acute Orders No qualifying data available. You Need to Schedule the Following Appointments Follow Up with Go to emergency room if symptoms worsen When Within 2-4 days Follow Up with DANILO ALVARADO MD When Within 2-4 days Where: [address] [place] [address]- Allergies No Known Medication Allergies Medications Please [...] comfortable, but it is not painful. (The "pins and needles" feeling that happens when a foot or hand "falls asleep" is a temporary paraesthesia.) Paraesthesias that last [...] medicines you take. This includes prescription and rdsv-gfe-geqgczj medicines, vitamins, and herbs. Ask if any [...] Open wound with redness, swelling, or pus 5541-2180 [employer]. [address] [place] [address], [place] [address]. All rights reserved. This information is not intended as a substitute for professional medical care. Always follow yourhealthcare professional's instructions. Additional Information VACCINATE! IT SAVES LIVES! Members of the community who have not yet received the COVID-19 vaccine and would like to receive it can visit one of [facility] vaccine clinics. There are many vaccine clinic locations within the [facility]. For locations and available times, please visit www.gettheshot.coronavirus.[place].gov/. It is important to note that some COVID mobile vaccine clinics are held outdoors and may be canceled in rainy or stormy conditions. To learn more about pediatric vaccinations (ages 5-11), we invite you to visit the [facility] webpage. https://www.[employer].org/pages/9757-Nnmee-Esgvxxwtmje-Mqpkfhafok-Qgdjt-Fik stions.htmlTo learn more about the COVID-19 vaccine, we invite you to visit the CDC website for a list of frequently asked questions. https://www.cdc.gov/coronavirus/2019-ncov/vaccines/faq.html [email or web address] Patient Portal Access Instructions: Stay connected with your healthcare team and access your personal medical information anytime with the [email or web address] Patient Portal. If you would like a full copy of your medical records please contact the [facility] Medical Records Department Sunday through Sunday between 8a.m. and 4:30p.m. Please follow the directions below to access the portal: 1.Access the email account you provided upon registration to the hospital.2.Look for an invitation email from [facility].3.Open the email and access the invitation link: Accept Invitation to [email or web address].Fill in the required cosme to create your account. Sign into [email or web address] with your username and password that you [...] you will allow to register on the [email or web address] Patient Portal for access to your information. You can also access the [email or web address] Patient Portal on the [place]. Simply click on "Health Records" under "HealthData" and then click on the BitMethod logo. HOW TO SAFELY DISPOSE OF PRESCRIPTION [...] Call your local pharmacy or go to http://InvenQuery.Puddle/7B4Dw5l to find one close to you.3.Make use of household items: Use cat litter or old coffee grounds to dispose medications if other options arenot available. Mix your drugs with these household products, seal them in an airtight container andthrow it into the garbage. Call [facility]: [phone] to be sure your drugs can be [...] been reviewed and explained to me and I,DELILAH DONTAE understand my current condition and have read and understand these discharge instructions. I have received awritten copy of the plan/instructions. If I have questions, I am aware that I should contact my doctor. 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 This information is not intended to replace [...] until you are awake and alert. Take qfsn-kac-fadcfbw and prescription medicines only as told by [...] 11/26/2013 Document Revised: 01/18/2018 Document Reviewed: 05/27/[address] Patient Education [employer]. Follow Up Care 01/27/2022 13:32:16 With:ELDA HUNTER MD Address: [address] [place] [address]- When:03/27/2022 15:30:00 Comments:THIS APPOINTMENT WILL BE WITH DR. GARAY [facility] 12-14-2022 Summary of episode note Discharge Instructions Thank you for allowing [facility] to assist you with your healthcare needs. The following is importantdischarge information regarding your hospital visit. Your Care Team DANILO ALVARADO MD What to do next Scheduled Follow-Up Appointments Appointment Type When Where Contact InformationCV OV 03/27/2022 03:30 PM EST [facility] Follow Up Appointments Follow Up with ELDA HUNTER MD When 03/27/2022 03:30 PM EST Why: THIS APPOINTMENT WILL BE WITH DR. GARAY Where: [address] [place] [address]- The Following Activity and Diet Have Been [...] and or supplements as they may interact [facility] medications. What How Much When Instructions Last Dose New clopidogrel (Plavix 75 mg oral tablet) 1 tab(s) by mouth Once a day Refills: 11 Pickup at [facility] 1936 Unchanged albuterol (albuterol Continuous Inhalation Soln) [...] by mouth Once a day Pharmacy Information [facility] 1936: [address] [place], [place] [id number] [phone] Please take this list to your next [...] may report side effects to FDA at 2-493-GLI-0301. What other drugs will affect clopidogrel? Sometimes it is not safe to use certain medications at the same time. Some drugs can affect your blood levels of other drugs you take, which may increase side effects or make the medications less effective. Tell your doctor about all your other medicines, especially: a stomach acid metal numerical tool programmer such as omeprazole, Nexium, or Prilosec; an antidepressant such as citalopram, fluoxetine, sertraline, Cymbalta, Effexor, Lexapro, Pristiq, or Prozac; rifampin; a blood thinner--warfarin, Coumadin, Jantoven; or NSAIDs (nonsteroidal anti-inflammatory drugs)--aspirin, ibuprofen (Advil, Motrin), naproxen (Aleve), celecoxib, diclofenac, indomethacin, meloxicam, and others. This list is not complete. Other drugs may affect clopidogrel, including prescription and equd-eua-epiolsk medicines, vitamins, and herbal products. Not all [...] to ensure that the information provided by [employer]. ('[employer]') is accurate, up-to-date, and complete, but no guarantee is made to that effect. Drug information contained herein may be time sensitive. [employer]healthrecord information has been compiled for use by healthcare practitioners and consumers in the [place] and therefore UShealthrecord does not warrant that uses outside of the [place] are appropriate, unless specifically indicated otherwise. [facility] drug information does not endorse drugs, diagnose patients or recommend therapy. [facility] drug information isan informational resource designed to [...] effective or appropriate for any given patient. [employer] does not assume any responsibility for any aspect of healthcare administered with the aid of information [employer]healthrecord provides. The information contained herein is not intended to cover all possible uses, directions, precautions, warnings, drug interactions, allergic reactions, or adverse effects. If you have questions about the drugs you are taking, check with your doctor, nurse or pharmacist. Copyright 7747-5781 [employer]. Version: 18.01. Revision Date: 05/19/2020. Education Materials [...] need to report the following to your fruit and vegetable packer: Any draining or oozing from the site [...] Document Reviewed: 02/06/2014 ExitCare Patient Information 2015 [employer]. This information is not intended to replace [...] until you are awake and alert. Take eujm-gtf-puqtkgt and prescription medicines only as told by [...] 11/26/2013 Document Revised: 01/18/2018 Document Reviewed: 05/27/[address] Patient Education [address] [employer] Additional Information VACCINATE! IT SAVES LIVES! Members of the community who have not yet received the COVID-19 vaccine and would like to receive it can visit one of [facility] vaccine clinics. There are many vaccine clinic locations within the [facility]. For locations and available times, please visit https://gettheshot.coronavirus.[place].gov/. It is important to note that some COVID mobile vaccine clinics are held outdoors and may be canceled in rainy or stormy conditions. To learn more about pediatric vaccinations (ages 5-11), we invite you to visit the [facility] webpage. https://www.[email or web address].org/pages/2588-Npgtu-Qkzruhjesvu-Qmnmmmbstt-Nswqv-Ewr stions.htmlTo learn more about the COVID-19 vaccine, we invite you to visit the [employer] website for a list of frequently asked questions. https://[email or web address]/Sdheqmjf-wua-Kcoozfmo/lssai-Uaxzyiq-Gtlqykushz _Asked-Questions.pdf [facility] Patient Portal Access Instructions: Stay connected with your healthcare team and access your personal medical information anytime with the [email or web address] Patient Portal.If you would like a full copy of your medical records, please contact the [facility] Medical Records Department, Sunday through Sunday between 8a.m. and 4:30p.m. Please follow the directions below to access the portal: 1.Access the email account you provided upon registration to the [facility].2.Look for an invitation email from [facility].3.Open the email and access the invitation link: Accept Invitation to [email or web address]4.Fill in the required cosme to create your account. Sign into [email or web address] with your username and password that you [...] you will allow to register on the [email or web address] Patient Portal for access to your information. You can also access the [email or web address] Patient Portal on the [place]. Simply click on "Health Records" under "HealthData" and then click on the BitMethod logo. HOW TO SAFELY DISPOSE OF PRESCRIPTION [...] Call your local pharmacy or go to http://InvenQuery.Puddle/6N5Ql7b to find one close to you.3.Make use of household items: Use cat litter or old coffee grounds to dispose medications if other options arenot available. Mix your drugs with these household products, seal them in an airtight container andthrow it into the garbage. Call [facility]: [phone] to be sure your drugs can be [...] aware that I should contact my doctor. 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: Date/Time: Relationship to Patient: Witness Name/Signature: Date/Time: [id number] Evaluation + Plan noteExtracted from: Title:History and [...] Appointment Date:03/27/2022 03:30:00 PM Scheduled Provider: Location:[facility] Appointment Type:CV OV Future Scheduled Tests Laboratory* Lipid Profile 12/28/21 Radiology* NM Myocardial Spect Rest/Stress 12/28/21 [facility] 12-14-2022 History and physical note Date of Service 02/01/22 Chief Complaint CP History of Present Illness Patient is a 46 year old male with history of CAD, tobacco use coming in for follow up He was 24 years old, he states he had NE presenting as chest heaviness and had PCI (likely LAD stent)in [place]. He then had another NSTEMI described as burning sensation in 2015 and had PCI of ramus in September and presented with angina in Jan, same year and had PCI of proximal RCA His last cath was in 07/2016 in [facility] for chest pain. He had [...] He was last seen in ED in [place] last month for chest pain. EKG showed [...] Problem List/Past Medical History Ongoing CAD in sokaogon artery Hypertension Noncompliance with medications Historical No [...] NETTIE BARNEY MD on 02/01/2022 08:15 AM [id number] History and physical note Date of Service 02/01/22 Chief Complaint CP History of Present Illness Patient is a 46 year old male with history of CAD, tobacco use coming in for follow up He was 24 years old, he states he had NE presenting as chest heaviness and had PCI (likely LAD stent)in [place]. He then had another NSTEMI described as burning sensation in 2015 and had PCI of ramus in September and presented with angina in Jan, same year and had PCI of proximal RCA His last cath was in 07/2016 in [facility] for chest pain. He had patent RCA and LAD stents. Has 40% stenosis in Left circ and 40% in proximal RCA. iFR of RCA and left circ were within normal limits. EF was 50-55% with moderate hypokinesis of the anterolateral myocardium. He had visits then in theED for chest pain that year but left AMA twice. He was started on nitro patch with minimal improvement of symptoms. Deemed chest pain was noncardiac in etiology. He was on aspirin clopidogrel, nitro patch, coreg and rosuvastatin which he all discontinued since 2016. He also continues to smoke 2 PPD. He established care with md in December 2019 and was ordered for [...] He was last seen in ED in [place] last month for chest pain. EKG showed [...] Problem List/Past Medical History Ongoing CAD in sokaogon artery Hypertension Noncompliance with medications Historical No [...] NETTIE BARNEY MD on 02/01/2022 08:15 AM [id number] Evaluation note* Diagnosis Onset Date Resolution Status Chest pain chronic Dyspnea on exertion chronic Essential hypertension chron ic Hyperlipidemia chronic Presence of stent in coronary artery January, chronic COPD (chronic obstructive pulmonary disease) chronic Nicotine dependence, cigarettes, uncomplicated chronic [facility] Work Phone: [phone]) 286-660911-09-2022 Evaluation + Plan note Future Scheduled Tests Laboratory* Lipid Profile 12/28/21 Radiology* NM Myocardial Spect Rest/Stress 12/28/21 [facility] 07-14-2022 Miscellaneous Notes* Telephone Encounter - Nadine Craig - 09/01/2021 4:35 PM EDT Patient notified * Telephone Encounter - Sabra Chapman MA - 09/01/2021 4:23 PM EDT Attempted to call patient but there was no answer. Left a message on [employer] requesting a return call. Sabra Chapman MA [...] test on 09/03/2021 at 8:20 am at [facility] lab. Faxed orders. Left message for patient to call back. Can I get this Covid order signed? Thanks. Sabra Chapman MA documented [facility] Miscellaneous Notes* [facility] - [facility]01/[facility]21 3:36 PM EDT Smoking Cessation Navigation Outcome of contact: Left Message Comments: A voicemail has been left for this patient regarding Tobacco Cessation support options. If this patient has any further questions they can email us at [email or web address] or call us at [phone]. [facility]ilingual Hr Generalist/Smoking Cessation Navigator: Shanel LoveFormerly [facility] Electronically signed by Shanel LoveFormerly [facility] at 09/01/2021 3:37 PM EDT documented in this encounterMercy [facility]07-13-2022 NoteHNO ID: [id number] Author: Yony Frias DO Service: ? Author Type: Physician Type: Progress Notes Filed: 08/31/2021 12:51 PM Note Text: [facility] Department of Pulmonary AND Sleep Medicine Yony [...] viral - Restless legs - Stroke (cerebrum) ([facility]) PAST SURGICAL HISTORY Procedure Laterality Date - [...] Negative. Musculoskeletal: Negative. Sk (more content not included)...[facility]07-13-2022 Instructions* Patient Instructions* Sabra Chapman MA - 08/31/2021 12:39 PM EDT Please hold you aspirin starting today (August 31, 2021). Will call with date and time of Lung scope (Bronchoscopy), will make follow up at this time. documented in this encounterMercy [facility]07-13-2022 History of Present illness Narrative* Yony Frias DO - 08/31/2021 12:00 PM EDT [facility] Department of Pulmonary & Sleep Medicine Yony [...] Signs: BP 118/79 Pulse 84 Ht 6' .008" (1.83m) Wt 222 lb (100.7kg) SpO2 95% [...] Vitals: BP 118/79 Pulse 84 Ht 6' .008" (1.83m) Wt 222 lb (100.7kg) SpO2 95% [...] ICD10: R06.02 5. Coronary artery disease involving sokaogon coronary artery of sokaogon heart without angina pectoris- ICD9: 414.01, ICD10: [...] MA. Yony Frias DO documented in this encounterMercy [facility] Defiance HospitalDiswil[address] hospitalr summary Author Jose R Schmitz [facility] January 24, 2023 3:53am Note Date/Time January 24, 2023 2 :43am [facility] Medical Records Department [address] [place] [address] Emergency Department Summary 01/24/23 MR#: [id number] Acct: [id number] Name: DONTAE PARRA Rep #:[id number] : 1975 47 From: Jose R Schmitz [...] secondary to this comes in for evaluation [facility] Medical History Abdominal distension (gaseous) Anxiety Asthma Atherosclerosis of coronary artery of sokaogon heart without angina pectoris CAD (coronary artery [...] Last Taken Unknown] carvedilol phosphate 20 mg capsule,ext.ergxsmj73uv multiphase 20 mg PO DAILY 06/15/22 [History [...] RDW Std Deviation 42.6 RDW Coeff of Uzly 13.0 Plt Count 274 MPV 9.4 Immature Gran % (Auto) 0.500 Neut % (Auto) 66.4 Lymph % (Auto) 23.9 [place] % (Auto) 6.8 Eos % (Auto) 2.0 [...] your Primary Care Provider. Call [facility] ([phone]) or report to the closest Emergency Room. Call 911 if necessary. 01/24/23 0353 <Electronically signed by Jose R Schmitz DO> Cosigner Signature (if applicable): CC: DANILO ALVARDAO ~ Signed [facility] Work Phone: Evaluation + Plan note Future Appointments Appointment Date:03/19/2024 07:00:00 AM Scheduled Provider:JEANNIE HERNANDEZ Location:[facility] Appointment Type:PC OV Future Scheduled Tests Laboratory* Lipid Profile 03/14/24 * Lipid Profile 09/20/23 * Albumin/Creatinine Ratio, Random Urine 09/12/23 * Complete Metabolic Panel 03/14/24 * Complete Metabolic Panel 09/20/23 [facility] Evaluation + Plan note Future Appointments Appointment Date:09/17/2024 09:00:00 AM Scheduled Provider:JEANNIE HERNANDEZ Location:[facility] Appointment Type:PC OV Future Scheduled Tests Laboratory* Magnesium Level 09/16/24 * Testosterone Level Total 09/16/24 * Lipid Profile 03/14/24 * Lipid Profile 09/20/23 * Lipid Profile 09/16/24 * Albumin/Creatinine Ratio, Random Urine 09/12/23 * Albumin/Creatinine Ratio, Random Urine 09/16/24 * Complete Metabolic Panel 03/14/24 * Complete Metabolic Panel 09/20/23 * Complete Metabolic Panel 09/16/24 [facility] Evaluation + Plan note Future Appointments Appointment Date:09/17/2024 09:00:00 AM Scheduled Provider:JEANNIE HERNANDEZ Location:[facility] Appointment Type:PC OV Future Scheduled Tests Laboratory* Magnesium Level 09/16/24 * Testosterone Level Total 09/16/24 * Complete Blood Count 12/18/24 * Lipid Profile 03/14/24 * Lipid Profile 09/20/23 * Lipid Profile 09/16/24 * Albumin/Creatinine Ratio, Random Urine 09/12/23 * Albumin/Creatinine Ratio, Random Urine 09/16/24 * Complete Metabolic Panel 03/14/24 * Complete Metabolic Panel 09/20/23 * Complete Metabolic Panel 09/16/24 [facility] Evaluation + Plan note Future Appointments Appointment Date:09/17/2024 09:00:00 AM Scheduled Provider:JEANNIE HERNANDEZ Location:[facility] Appointment Type:PC OV Future Scheduled Tests [...] Panel 09/16/24 * COVID/FLU/RSV PCR Screen 07/28/24 [facility] evaluation + Plan note Future Appointments Appointment Date:03/18/2025 08:30:00 AM Scheduled Provider:JEANNIE HERNANDEZ Location:[facility] Appointment Type: OV Future Scheduled Tests Laboratory* TSH with Reflex to FT4 10/29/24 * Throat Culture 07/28/24 * Lipid Profile 03/14/24 * Albumin/Creatinine Ratio, Random Urine 09/16/24 * Vitamin D Level 10/29/24 * Complete Metabolic Panel 03/14/24 * COVID/FLU/RSV PCR Screen 07/28/24 [facility] Evaluation note* Diagnosis Hemoptysis- Primary Hemoptysis, unspecified Tobacco use current Chronic obstructive pulmonary disease, unspecified COPD type (HCC) SOB (shortness of breath) on exertion Shortness of breath Coronary artery disease involving sokaogon coronary artery of sokaogon heart without angina pectoris History of 2019 novel coronavirus disease (COVID-19) documented in this encounter [facility]* Diagnosis Onset Date Resolution Status Hemoptysis acute Nicotine addiction acute Primary snoring acute Atherosclerosis of coronary artery of sokaogon heart without angina pectoris chronic COPD (chronic obstructive pulmonary disease) chronic Hemoptysis acute Nicotine addiction acute Primary snoring acute COPD (chronic obstructive pulmonary disease) [facility] Work Phone: Evaluation note* Diagnosis Onset Date Resolution Status Hemoptysis acute Nicotine addiction acute Primary snoring acute Atherosclerosis of coronary artery of sokaogon heart without angina pectoris chronic COPD (chronic obstructive pulmonary disease) chronic Hemoptysis acute Nicotine addiction acute Primary snoring acute COPD (chronic obstructive pulmonary disease) chronic Anxiety chronic CAD (coronary artery disease) chronic COPD (chronic obstructive pulmonary disease) chronic Essential hypertension chron ic Hyperlipidemia chronic Nicotine dependence chronic Presence of stent in coronary artery January, [facility] Work Phone: Evaluation note* Diagnosis Onset Date Resolution Status Primary snoring acute Atherosclerosis of coronary artery of sokaogon heart without angina pectoris chronic COPD (chronic [...] Chronic cough chronic Hemoptysis chronic Nicotine addiction [facility] Work Phone: Evaluation note* Diagnosis Onset [...] Presence of stent in coronary artery January, [facility] Work Phone: Evaluation note* Diagnosis Onset [...] disease) chronic Nicotine dependence, cigarettes, uncomplicated chronic [facility] Work Phone: Evaluation note* Diagnosis Fall, initial encounter- Primary Fall, initial encounter Concussion Unspecified concussion Back pain Unspecified backache [facility] Narrative No data available for this section [facility] Hospital Discharge instructions Additional Instructions Your workup today showed no sign of heart damage and no sign of blood clot. It did document lung changes consistent with COPD but no pneumonia or hole in your lung. Continue all of your medication as directed by your doctor and return to the ER should you have any further concernsWAvita Health [facility] Work Phone: Hospital Discharge instructions No data available for this section [facility] Note* SYSTEM: SIGN SYSTEM: SIGN, MODIFY SYSTEM: MODIFY, SIGN SYSTEM: SIGN, MODIFY SYSTEM: MODIFY, VERIFY Event Display: Cardiac Catheterization -CV Authored Date: [id number] [facility] [place] Progress note No data available for this section [facility] Reason for referral (narrative)* Outpatient Procedure (Routine) - Pending Review Specialty Diagnoses / Procedures Referred By Contac t Referred To Contact [facility] Diagnoses SOB (shortness of breath) on exertion Procedures SPIROMETRY BASELINE ONLY SPMTRY W/VC EXPIRATORY ZACKARY W/WO MXML VOL VNTJ Yony Frias, DO [address] [place] [id number] [facility] [place] [address] [place], [place] [id number] Referral ID Status Reason Start Date Expiration Date Visits Requested Visits Authorized [id number] Pending Review Auto-Generat ed Referral 08/31/2021 09/30/2022 1 1 * Outpatient Procedure (Routine) - Pending Review Specialty Diagnoses / Procedures Referred By Contac t Referred To Contact [facility] Diagnoses Hemoptysis Procedures [facility] INCL FLUOR GDNCE DX W/CELL WASHG SPX Yony Frias, DO [address] [place] [id number] [facility] [place] [address] [place] [phone] Referral ID Status Reason Start Date Expiration Date Visits Requested Visits Authorized [id number] Pending Review Auto-Generat ed Referral 08/31/2021 09/30/2022 1 1 [facility] Summary Purpose Family History No Family History [...] July 10, 2022 1 1:29am Power of Trial Mgr No July 10, 2022 11:29am Advance Directive Response Recorded Date/ Time Advance Directives No September 25, 2 023 6:35am Living Will No January 24 2:02am Power of Trial Mgr No January 24, 2023 2:02am Advance Directive Response Recorded Date/ Time Advance Directives No September 25, 2 023 7:35am Living Will No January 24 3:02am Power of Trial Mgr No January 24, 2023 3:02am Documents on File Type Date 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 Documentation 10/19/2015 Date Activated Date Inactivated Comments 12/01/2023 9:01 AM 12/01/2023 4:57 PM Chief Complaint and Reason for Visit Chief Complaint COPD Amb Documentation COPD COPD 1 W FU Reason for Visit Hemoptysis Nicotine addiction Primary snoring Atherosclerosis of coronary artery of [place] heart without angina pectoris COPD (chronic obstructive pulmonary disease) Hemoptysis Nicotine addiction Primary snoring COPD (chronic obstructive pulmonary disease) Chief Complaint COPD Amb Documentation COPD COPD 1 W FU Hypersomnia, unspecified NE,STENTS (SELF REF) Reason for Visit Hemoptysis Nicotine addiction Primary snoring Atherosclerosis of coronary artery of [place] heart without angina pectoris COPD (chronic obstructive pulmonary disease) Hemoptysis Nicotine addiction Primary snoring COPD (chronic obstructive pulmonary disease) Anxiety CAD (coronary artery disease) COPD (chronic obstructive pulmonary disease) Essential hypertension Hyperlipidemia Nicotine dependence Presence of stent in coronary artery Chief Complaint COPD Amb Documentation COPD COPD 1 W FU Hypersomnia, unspecified NE,STENTS (SELF REF) COPD COPD/HEMOPTYSIS Reason for Visit Hemoptysis Nicotine addiction Primary snoring Atherosclerosis of coronary artery of [place] heart without angina pectoris COPD (chronic obstructive pulmonary disease) Hemoptysis Nicotine addiction Primary snoring COPD (chronic obstructive pulmonary disease) Anxiety CAD (coronary artery disease) COPD (chronic obstructive pulmonary disease) Essential hypertension Hyperlipidemia Nicotine dependence Presence of stent in coronary artery Chief Complaint COPD Amb Documentation COPD COPD 1 W FU Hypersomnia, unspecified NE,STENTS (SELF REF) COPD COPD/HEMOPTYSIS nv DHARMESH; AUTO CPAP *DEVICE TAGGED INT LABS HEART DISEASE HEART DISEASE Reason for Visit Hemoptysis Nicotine addiction Primary snoring Atherosclerosis of coronary artery of [place] heart without angina pectoris COPD (chronic obstructive pulmonary disease) Hemoptysis Nicotine addiction Primary snoring COPD (chronic obstructive pulmonary disease) Anxiety CAD (coronary artery disease) COPD (chronic obstructive pulmonary disease) Essential hypertension Hyperlipidemia Nicotine dependence Presence of stent in coronary artery Chief Complaint COPD Amb Documentation COPD COPD 1 W FU Hypersomnia, unspecified NE,STENTS (SELF REF) COPD COPD/HEMOPTYSIS nv DHARMESH; AUTO CPAP *DEVICE TAGGED INT LABS HEART DISEASE HEART DISEASE COPD COPD Reason for Visit Hemoptysis Nicotine addiction Primary snoring Atherosclerosis of coronary artery of [place] heart without angina pectoris COPD (chronic obstructive pulmonary disease) Hemoptysis Nicotine addiction Primary snoring COPD (chronic obstructive pulmonary disease) Anxiety CAD (coronary artery disease) COPD (chronic obstructive pulmonary disease) Essential hypertension Hyperlipidemia Nicotine dependence Presence of stent in coronary artery Chief Complaint COPD Amb Documentation COPD COPD 1 W FU Hypersomnia, unspecified NE,STENTS (SELF REF) COPD COPD/HEMOPTYSIS nv DHARMESH; AUTO CPAP *DEVICE TAGGED INT LABS HEART DISEASE HEART DISEASE COPD COPD 3 M FU Reason for Visit Primary snoring Atherosclerosis of coronary artery of [place] heart without angina pectoris COPD (chronic obstructive [...] section and content) DATE CREATED AUTHOR 08/14/2017 [facility] DATE CREATED AUTHOR AUTHOR'S ORGANIZ ATION 08/15/2017 [facility] DATE CREATED AUTHOR AUTHOR'S ORGANIZ ATION 05/13/2021 [facility] DATE CREATED AUTHOR AUTHOR'S ORGANIZ ATION 09/07/2021 [facility] DATE CREATED AUTHOR AUTHOR'S ORGANIZ ATION 03/26/2022 [facility] DATE CREATED AUTHOR AUTHOR'S ORGANIZ ATION 10/18/2022 [facility] [place] DATE CREATED AUTHOR AUTHOR'S ORGANIZ ATION 12/09/2023 [facility] DATE CREATED AUTHOR AUTHOR'S ORGANIZ ATION 01/13/2024 [facility] DATE CREATED AUTHOR AUTHOR'S ORGANIZ ATION 11/03/2024 [facility] DATE CREATED AUTHOR AUTHOR'S ORGANIZ ATION 12/14/[address] [facility] Source Comments (unrecognize d section and content) In the event this informatio n is protected by the Federal Confidentiality of Alcohol and Drug Abuse Patient Records regulations: The Federal rules restrict any use of the information to criminally investigate or prosecute any alcohol or drug abuse patient.[facility] the event this information is protected by the Federal Confidentiality of Alcohol and Drug Abuse Patient Records regulations: The Federal rules restrict any use of the information to criminally investigate or prosecute any alcohol or drug abuse patient.[facility] Hospital[facility] the event this information is protected by the Federal Confidentiality of Alcohol and Drug Abuse Patient Records regulations: The Federal rules restrict any use of the information to criminally investigate or prosecute any alcohol or drug abuse patient.[facility] Hospital[facility] the event this information is protected by the Federal Confidentiality of Alcohol and Drug Abuse Patient Records regulations: The Federal rules restrict any use of the information to criminally investigate or prosecute any alcohol or drug abuse patient.[facility] Reason for Visit (unrecogniz ed section and content) Reason Comments New Patient Reason Comments Smoking Cessation Reason Comments Procedure Reason Comments Abdominal Injury Transfer from [facility] for trauma consult. Fall from tree stand 15-17 feet. 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 Julio Cesar Alaniz MD [address] [place] [address] [address] [address] [place] [address] Referral ID Status Reason Start Date Expiration Date Visits Re quested Visits Authorized [id number] 1 1 Care Teams (unrecognized sec tion and content) Team Status: Active Member Role Status Dates DANILO ALVARADO Primary Care Provider Active Team Status: Inactive Member Role Status Dates Dr. Jonh Boyd MD Attending Provider Active Team Status: Inactive Member Role Status Dates Dr. Bria Olesn MD Attending Provider Active Dr. Mark Alvarado [...] MD Attending Provider, Referring Pr ovider Active Talent Scout Relationship Specialty Start Date End Date [facility], [address] [phone] PCP - General Family Practice 08/31/21 Talent Scout Relationship Specialty Start Date End Date [facility] Harleen [address] [phone] PCP - General Family Practice 08/31/21 Talent Scout Relationship Specialty Start Date End Date Christiano Danilo K, [address] [place] [address] PCP - General Family Practice 08/31/21 Talent Scout Relationship Specialty Start Date End Date Danilo Alvarado DO [address] [place] [address] PCP - General Family Practice 08/31/21 Team Status: Active Member Role Status Dates Dr. Mark Alvarado MD Primary Care Provider Active Team Status: Active Member Role Status Dates Dr. Mark Alvarado MD Primary Care Provider Active Dr. Jonh Boyd MD Attending Provider, Referring Provider Active Team Status: Active Member Role Status Dates Dr. Jonh Boyd MD Referring Provider, Other Pro vider Active [facility] Primary Care Provider Active Dr. Bahman Alvarado DO Attending Provider Active Team Status: Inactive Member Role Status Dates Dr. Jonh Boyd MD Attending Provider, Referring Provider Active [facility] Primary Care Provider Active Team Status: Inactive Member Role Status Dates Dr. Mark Alvarado MD Referring Provider Active Dr. Jonh Boyd MD Attending Provider Active [facility] Primary Care Provider Active Team Status: Inactive Member Role Status Dates Dr. Bria Olsen MD Attending Provider Active [facility] Primary Care Provider Active Team Status: Inactive Member Role Status Dates Frances Fuchs PHOTOGRAPH PRINTER, PHOTOGRAPH PRINTER-C Attending Provider Active Team Status: Inactive Member Role Status Dates Frances Fuchs PHOTOGRAPH PRINTER, PHOTOGRAPH PRINTER-C Attending Provider Active Dr. Tim Alvarado DO Primary Care Provider, Referr ing Provider Active Team Status: Inactive Member Role Status Dates Dr. Bria Olsen MD Attending Provider Active Team Status: Active Member Role Status Dates Dr. Estevan Dixon MD Attending Provider Active Dr. Bria Olsen MD Referring Provider Active Team Status: Inactive Member Role Status Dates Out of [facility] Doctor Primary Care Provider, Referring Pr ovider Active Elda Villegas PHOTOGRAPH PRINTER, PHOTOGRAPH PRINTER-C Attending Provider Active Team Status: Inactive Member Role Status Dates Frances Fuchs PHOTOGRAPH PRINTER, PHOTOGRAPH PRINTER-C Attending Provider, Referrin g Provider Active [facility] Primary Care Provider Active Team Status: Inactive Member Role Status Dates Dr. Bria Olsen MD Attending Provider, Referring Pr ovider Active Team Status: Active Member Role Status Dates Elad Villegas PHOTOGRAPH PRINTER, PHOTOGRAPH PRINTER-C Attending Provider, Referring Pro vider Active [facility] Primary Care Provider Active Team Status: Inactive Member Role Status Dates Dr. Jose R Schmitz DO Emergency Provider Active [facility] SANDOVAL Primary Care Provider Active Team Status: Inactive Member Role Status Dates Elda Villegas PHOTOGRAPH PRINTER, PHOTOGRAPH PRINTER-C Attending Provider, Referring Pro vider Active CHRISTIANO SANDOVAL Primary Care Provider Active Team Status: Inactive Member Role Status Dates Out of [facility] Doctor Referring Provider Active Dr. Bahman Alvarado DO Attending Provider Active Team Status: Inactive Member Role Status Dates Out of [facility] Doctor Referring Provider Active Elda Villegas PHOTOGRAPH PRINTER, PHOTOGRAPH PRINTER-C Attending Provider Active [facility]RISTIANO SANDOVAL Primary Care [...] Provide r, Attending Provider, Referring Provider Active Talent Scout Relationship Specialty Start Date End Date Dylan Magallon [address] [facility] [address] [place] [address] PCP - General 04/18/16 Care Team (unrecognized sect ion and content) Care Team Personnel Name: DANILO ALVARADO MD Member Role: Primary Care Physician Address: Address: [address] Care Team Related Persons Name: KO [...] 0.5 mL 0.5 mL, IntraMUSCular, Once, On Sun12/02/23 at 0900, For 1 dose Lidocaine 4 [...] 0435 (Given - Provid er: Heydi Vallejo, Procurement Engineer) melatonin tablet 3 mg 3 mg, Oral, Nightly PRN, sleep, Starting on 12/01/23 at 0901 naloxone (Narcan) injection 0.4 mg 0.4 mg, IntraVENous, Every 5 min PRN, opioid reversal, respiratory depression, Starting on 12/01/23 at 0907, +++ For RR <10, pinpoint pupils, over sedation for opioid reversal - MUST notify director construction services provider immediately after first dose, may give [...] BE BASED ON THE PRIMARY CLINICAL RECORDS. [employer] provides no warranty or guarantee of the accuracy or completeness of information in this document.
--- NOTE | 2024-12-15 07:00 | EGD_PTH ---
PATIENT: MARIBELL MAZARIEGOS LOC: [facility] U#:[id number] AGE/SX: 49/M ROOM: RE12/15/[address]: Dr. Calvin Jasso DO : 1975 BED: DIS: 12/15/2024 SPEC #: [id number] RECD: 12/15/24 09:33 STATUS: MIKE ECTOR #: [id number] WATSON: 12/15/24 07:[address]: Calvin Jasso DEPT: SURGICAL PATHOLOGY RECD BY: Adryan Tucker ENTERED: 12/15/24 10:33 SP TYPE: EGD BIOPSY OT DR: JEANNIE MAGALLANES, [employer] Tissues: A - Gastric mucous membrane B - Esophagus, NOS Procedures: Immunohistochemical Stains Surgery Specimen Level IV HEADER OPERATION: EGD with biopsy PRE-OP DIAGNOSIS: GERD, dysphagia TISSUE SUBMITTED: A- Gastric body biopsy, B- Distal esophagus biopsy MICROSCOPIC DIAGNOSIS A. Gastric body, biopsy: - Oxyntic mucosa with slight chronic inflammation. - IHC negative for H. pylori organisms. B. Distal esophagus, biopsy: - Squamous mucosa with reactive changes. - Columnar mucosa negative for unequivocal goblet cell metaplasia. MICROSCOPIC DESCRIPTION Slides are reviewed. All matched controls reacted appropriately. These tests were developed and their performance characteristics determined by [facility]. They may not have been cleared or approved by the U.S. Food and Drug Administration. The FDA has determined that such clearance or approval is not necessary. The above immunohistochemical markers and/or special stains have been reviewed by the Pathologist. GROSS DESCRIPTION A. Received in fixative is one container labeled with the patient's name and designated "Gastric body biopsy." The specimen consists of four irregular fragments of [place] tissue that measure 0.1 to 0.5 cm. The specimen is totally submitted in one cassette. B. Received in fixative is one container labeled with the patient's name and designated "Distal esophagus biopsy." The specimen consists of four irregular fragments of [place] tissue that measure <0.1 to 0.6 cm. Smallest fragment unlikely to survive processing. The specimen is totally submitted in one cassette. [place] 12/15/2024 CPT:[id number]
[2024-12-15] MEDS: Lactated Ringers 1,000 ML 15 ML IV (07:01)
--- NOTE | 2024-12-15 07:11 | PRE.ANES_ITS ---
ASA Classification* ASA Classification ASA Classification: 3 Assessment & Plan Anesthesia* Anesthesia Assessment Anesthesia Assessment: Discussed sedation and/or anesthesia options, risks, benefits, and alternatives with patient/parents/legal guardian/POA. Questions invited. The patient/parents/legal guardian/POA seems to understand and agrees to proceed with anesthesia plan. Reviewed the physical assessment, medical history, allergy history and patient home medications list prior to surgery/procedure/anesthetic and documented any changes. Performed airway and anesthesia risk assessments. Anesthesia Type Anesthesia Type: MAC History Source History Obtained from:: Patient and Chart Anesthesia Focused Assessment* Temperature: 97.4 F Pulse Rate: 80 Blood Pressure: 120/77 Respiratory Rate: 16 Pulse Ox: 98 Oxygen Delivery Method: Room Air Airway Assessment Mouth opens: >3 cm Mallampati Score: I Teeth Condition: Dentures (Full top dentures are out.) and Missing (Patient is missing couple of bottom teeth. Rest of the teeth are tight.) Neck Range of motion (ROM): Limited ROM (Slight Decrease) Labs Anesthesia Preop lab: CBC WBC, (4.4-11.0) 11.6 K/mm3 H 09/19/23, 09:24 RBC, (4.6-6.2) 5.17 M/mm3 09/19/23, 09:24 Hgb, (13.0-16.5) 15.8 g/dL 09/19/23, 09:24 Hct, (40-54) 46.3 % 09/19/23, 09:24 Plt Count, (150-450) 306 K/mm3 09/19/23, 09:24 CHEMISTRY Potassium, (3.5-5.1) 4.1 mmol/L 01/24/23, 02:11 Sodium, (136-145) 138 mmol/L 01/24/23, 02:11 Magnesium, (1.6-2.6) 2.2 mg/dL 01/22/23, 14:43 BUN, (7-18) 18 mg/dL 01/24/23, 02:11 Creatinine, (0.70-1.30) 1.16 mg/dL 01/24/23, 02:11 Glucose, (74-106) 119 mg/dL H 01/24/23, 02:11 COAG PT, (11.7-14.9) 12.0 SECONDS 01/24/23, 02:11 Pre-Assessment Diagnosis/Proposed Procedure Planned Operative Procedure(s): EGD Anesthesia History Anesthesia History - automatic lump making machine tender: Anesthesia History - automatic lump making machine tender Hx Hospitalization No 12/12/24 09:50 Any Problems With Anesthesia No 12/12/24 09:50 Cholinesterase deficiency No 12/12/24 09:50 You/Your Family Experience No 12/12/24 09:50 fever (hyperthermia) with Relationship Recent Exposure to Contagious No 12/15/24 06:52 Disease Does patient have nerve No 12/12/24 09:50 stimulator Patient instructed to have device shut off --Does patient have Pacemaker No 12/15/24 06:52 or ICD? When Was Last Pacemaker Check QUESTION #4 FULL TEXT: You/Your Family Experience fever (hyperthermia) with Anesthesia Last Oral Intake Last Oral intake: Last Oral Intake NPO since 22:00 12/15/24 06:52 Meds taken in AM with sips of No 12/15/24 06:52 water? Meds patient instructed to take am of surgery PONV PONV - automatic lump making machine tender: PONV - automatic lump making machine tender Female No 12/12/24 09:50 HX of Motion Sickness No 12/12/24 09:50 HX of N/V After Surgery No 12/12/24 09:50 Non-Smoker No 12/12/24 09:50 Duration of Surgery greater No 12/12/24 09:50 than 60 minutes Number of Risk Factors PONV Score Height & Weight Height & Weight: Anesthesia: Height & Weight Height 6 ft 12/15/24 06:52 Weight: 99.9 kg 12/15/24 06:52 Body Mass Index (BMI) 29.8 12/15/24 06:52 Respiratory Assessment Respiratory Assessment - automatic lump making machine tender: Respiratory Tract Infection Hx - automatic lump making machine tender Hx Respiratory Tract Infection No 12/12/24 09:50 STOP Sleep Apnea STOP Sleep Apnea - automatic lump making machine tender: STOP Sleep Apnea - automatic lump making machine tender Hx Hypertension Yes: CONTROLLED WITH MED 12/12/24 09:50 Hx Sleep Apnea Yes 12/12/24 09:50 CPAP Yes: NONCOMPLIANT/O2 3L AT 12/12/24 09:50 NIGHT BIPAP No 12/12/24 09:50 Do you snore loudly (louder No 12/12/24 09:50 than talking or can be heard Do you often feel tired/ No 12/12/24 09:50 fatigued/ sleepy during daytime? Has anyone observed you stop No 12/12/24 09:50 breathing during sleep? STOP Results Positive 12/12/24 09:50 QUESTION #5 FULL TEXT : Do you snore loudly (louder than talking or can be heard through closed doors)? 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 Specify any problems Hx of Preganancy in last 3 N/A 12/12/24 09:50 Months Nurse Filling Out Transfusion DSCHRIBER 12/12/24 09:50 & Questions: Date: 12/12/24 12/12/24 09:50 Time: 09:51 12/12/24 09:50 Patient unable to answer at this time (ie. confused, unrespo /Reproduction History /Reproductive History - automatic lump making machine tender: /Reproductive Hx- automatic lump making machine tender Hx Now No 12/12/24 09:50 Gestational Age (in weeks): EDC: Hx Hx Para Hx Section SAB No 12/12/24 09:50 Active Medications Active Medications: Current Medications Generic Name Dose Route Start Last Admin Trade Name Freq PRN Reason Stop Dose Admin Lactated Ringer's 1,000 mls @ 15 mls/hr 12/15/24 07:00 12/15/24 07:01 IV 15 mls/hr .Q48H RENNY Administration PFSH Medical History History of echocardiogram Wears dentures Wears glasses Arthritis High cholesterol Injury of head and neck Injury of back History of IBS Gastric reflux Smoker CPAP (continuous positive airway pressure) dependence On home oxygen therapy Emphysema, unspecified Shortness of breath on exertion Cardiology follow-up encounter History of stress test History of irregular heartbeat RLQ abdominal pain GI bleed Chronic cough Family history of ischemic heart disease and other diseases of the circulatory system Presence of stent in coronary artery (~02/01/22) Old myocardial infarction Nicotine addiction Abdominal distension (gaseous) Unspecified systolic (congestive) heart failure Atherosclerosis of coronary artery of [place] heart without angina pectoris Noncompliance with medications Essential hypertension COPD (chronic obstructive pulmonary disease) Asthma CAD (coronary artery disease) Home Medications Medication Instructions Recorded Last Taken Type albuterol sulfate 2.5 mg/3 mL 2.5 mg inhalation Q4H ND N 05/22/22 Unknown History (0.083 %) solution for nebulization shortness of breat h or wheezing aspirin 81 mg tablet,delayed 81 mg PO DAILY 05/22/22 1 History release magnesium oxide 250 mg PO DAILY 05/22/22 Unk nown History omeprazole 40 mg capsule,delayed 40 mg PO DAILY Unknown History release carvedilol phosphate 20 mg 20 mg PO DAILY 06/15/22 Unk nown History capsule,[id number] multiphase potassium chloride 20 mEq 20 meq PO DAILY 01/24/23 Unk nown History tablet,extended release(part/cryst) hydrochlorothiazide 25 mg tablet 25 mg PO DAILY #30 ta bs 05/25/23 Unknown Rx nitroglycerin 0.4 mg sublingual 0.4 mg sublingual Q5-1 5M PRN chest 09/17/23 Unknown History tablet pain ranolazine 500 mg tablet,extended 500 mg PO BID #60 ta bs 09/17/23 Unknown Rx release,12 hr bupropion HCl (smoking deter) 150 150 mg PO BID #60 ta bs 11/06/23 Unknown Rx mg tablet,12 hr sustained-release(smoking deterrent) clopidogrel 75 mg tablet 75 mg PO DAILY #90 tabs 10/2012/10/24 Rx prazosin 1 mg capsule 1 mg PO QHS #30 caps 5 Unknown Rx albuterol sulfate 90 mcg/actuation 2 puff inhalation Q 4H PRN 09/05/24 12/15/24 Rx aerosol inhaler shortness of breath or wheez ing #8.5 grams budesonide 0.5 mg/2 mL suspension 0.5 mg (2 mL) inhala tion Q12H 09/05/24 Unknown Rx for nebulization BREATHING #60 mL fluticasone furoate 200 1 inh inhalation Q24H #30 ea 09/05/24 Unknown Rx mcg/actuation blister powder for inhalation (Arnuity Ellipta) ipratropium 0.5 mg-albuterol 3 mg 3 ml inhalation Q6H BREATHING #180 09/05/24 Unknown Rx (2.5 mg base)/3 mL nebulization mL soln mepolizumab 100 mg/mL subcutaneous 100 mg subcut Q4W # 1 mL 09/05/24 Unknown Rx auto-injector (Nucala) montelukast 10 mg tablet 10 mg PO QPM #90 tabs Unknown Rx umeclidinium 62.5 mcg-vilanterol 1 inh inhalation Q24H #60 ea 09/05/24 Unknown Rx 25 mcg/actuation powdr for inhalation (Anoro Ellipta) rosuvastatin 40 mg tablet 40 mg PO QDAY 10/08/24 Unkno wn History Allergy/AdvReac Type Severity Reaction Status Date / Time isosorbide Allergy Severe Severe Verified 12/15/24 06:50 headaches amlodipine AdvReac Intermediate Severe Verified 12/15/24 06:50 headache Family History Mother Cancer Ovarian Grandmother Cancer breast cancer. Heart disease Myocardial infarction Grandfather Cancer Lung Fibromyalgia Father Cancer Surgical History H/O colonoscopy History of cardiac catheterization History of left heart catheterization (LHC) (~09/25/22) Presence of coronary angioplasty implant and graft (~02/01/22) H/O inguinal hernia repair H/O arthroscopic knee surgery H/O hand surgery Social History Smoking Status: Current some day smoker tobacco type: cigarettes quit status: has quit before alcohol intake: never substance use type: does not use caffeine: Yes Type: coffee Number of servings: 3 Review of Systems (Anesthesia) ROS Narrative System reviewed and no additional complaints, except as documented.
--- NOTE | 2024-12-15 07:15 | PCM.HP.STD ---
HPI - General General Date of Admission: 12/15/24 Date of Service: 12/15/24 HPI Narrative MARIBELL MAZARIEGOS, is a 49 M who presents [Chief Complaint: GERD Details: MARIBELL MAZARIEGOS is a 49 M who presents to the office today for follow-up. I established 06/27/2024 with concerns for lower GI bleeding and constipation. Past medical history of tobacco use, hyperlipidemia, stroke, GERD, COPD, asthma, coronary disease, hypertension. Patient with 5 days of constipation and pain. Patient tried MiraLAX and mag citrate. This produced a bowel movement that was mostly water with blood in it. Colonoscopy 09/04/2024 - Congested mucosa in the recto-sigmoid colon. Biopsied. - Stool at the splenic flexure and in the transverse colo Pathology: No specific pathologic change OV 11/18/2024 patient no longer having blood in his stool. Patient was advised to follow-up with GI for uncontrolled GERD possibly exacerbating his pulmonary disease. Patient endorsing history of GERD for many years. He has been on a omeprazole 40 mg daily for many years. He continues to have heartburn almost daily. He has vomiting after eating and when he has an episode of coughing. Last EGD was about 6 years ago where they "scraped "his throat. Patient having difficulty swallowing solids and liquids. He is unsure how often. [facility] Medical History History of echocardiogram Wears dentures Wears glasses Arthritis High cholesterol Injury of head and neck Injury of back History of IBS Gastric reflux Smoker CPAP (continuous positive airway pressure) dependence On home oxygen therapy Emphysema, unspecified Shortness of breath on exertion Cardiology follow-up encounter History of stress test History of irregular heartbeat RLQ abdominal pain GI bleed Chronic cough Family history of ischemic heart disease and other diseases of the circulatory system Presence of stent in coronary artery (~02/01/22) Old myocardial infarction Nicotine addiction Abdominal distension (gaseous) Unspecified systolic (congestive) heart failure Atherosclerosis of coronary artery of [place] heart without angina pectoris Noncompliance with medications Essential hypertension COPD (chronic obstructive pulmonary disease) Asthma CAD (coronary artery disease) Home Medications Medication Instructions Recorded Last Taken Type albuterol sulfate 2.5 mg/3 mL 2.5 mg inhalation Q4H PRN 05/22/22 Unknown History (0.083 %) solution for nebulization shortness of breath or wheezing aspirin 81 mg tablet,delayed 81 mg PO DAILY 05/22/22 12/10/24 History release magnesium oxide 250 mg PO DAILY 05/22/22 Unknown History omeprazole 40 mg capsule,delayed 40 mg PO DAILY 05/22/22 Unknown History release carvedilol phosphate 20 mg 20 mg PO DAILY 06/15/22 Unknown History capsule,[id number] multiphase potassium chloride 20 mEq 20 meq PO DAILY 01/24/23 Unknown History tablet,extended release(part/cryst) hydrochlorothiazide 25 mg tablet 25 mg PO DAILY #30 tabs 05/25/23 Unknown Rx nitroglycerin 0.4 mg sublingual 0.4 mg sublingual Q5-15M PRN chest 09/17/23 Unknown History tablet pain ranolazine 500 mg tablet,extended 500 mg PO BID #60 tabs 09/17/23 Unknown Rx release,12 hr bupropion HCl (smoking deter) 150 150 mg PO BID #60 tabs 11/06/23 Unknown Rx mg tablet,12 hr sustained-release(smoking deterrent) clopidogrel 75 mg tablet 75 mg PO DAILY #90 tabs 11/08/23 12/10/24 Rx prazosin 1 mg capsule 1 mg PO QHS #30 caps 04/22/24 Unknown Rx albuterol sulfate 90 mcg/actuation 2 puff inhalation Q4H PRN 09/05/24 12/15/24 Rx aerosol inhaler shortness of breath or wheezing #8.5 grams budesonide 0.5 mg/2 mL suspension 0.5 mg (2 mL) inhalation Q12H 09/05/24 Unknown Rx for nebulization BREATHING #60 mL fluticasone furoate 200 1 inh inhalation Q24H #30 ea 09/05/24 Unknown Rx mcg/actuation blister powder for inhalation (Arnuity Ellipta) ipratropium 0.5 mg-albuterol 3 mg 3 ml inhalation Q6H BREATHING #180 09/05/24 Unknown Rx (2.5 mg base)/3 mL nebulization mL soln mepolizumab 100 mg/mL subcutaneous 100 mg subcut Q4W #1 mL 09/05/24 Unknown Rx auto-injector (Nucala) montelukast 10 mg tablet 10 mg PO QPM #90 tabs 09/05/24 Unknown Rx umeclidinium 62.5 mcg-vilanterol 1 inh inhalation Q24H #60 ea 09/05/24 Unknown Rx 25 mcg/actuation powdr for inhalation (Anoro Ellipta) rosuvastatin 40 mg tablet 40 mg PO QDAY 10/08/24 Unknown History Allergy/AdvReac Type Severity Reaction Status Date / Time isosorbide Allergy Severe Severe Verified 12/15/24 06:50 headaches amlodipine AdvReac Intermediate Severe Verified 12/15/24 06:50 headache Family History Mother Cancer Ovarian Grandmother Cancer breast cancer. Heart disease Myocardial infarction Grandfather Cancer Lung Fibromyalgia Father Cancer Surgical History H/O colonoscopy History of cardiac catheterization History of left heart catheterization (LHC) (~09/25/22) Presence of coronary angioplasty implant and graft (~02/01/22) H/O inguinal hernia repair H/O arthroscopic knee surgery H/O hand surgery Social History Smoking Status: Current some day smoker tobacco type: cigarettes quit status: has quit before alcohol intake: never substance use type: does not use caffeine: Yes Type: coffee Number of servings: 3 ROS Constitutional Constitutional: Denies fatigue, fever(s), poor appetite, weight gain or weight loss Gastrointestinal Gastrointestinal: Denies belching, bloating, change in bowel habits, change in stool character, chewing difficulty, coffee ground emesis, constipation, cramping, diarrhea, dyspepsia, dysphagia, early satiety, excessive flatus, fecal incontinence, heartburn, hematemesis, hematochezia, hemorrhoids, loose stools, melena, nausea, odynophagia, rectal bleeding, tenesmus, vomiting or weight changes Vital Signs Vital Signs Vital Signs: 12/15/24 06:52 12/15/24 06:52 Temperature 97.4 F L Temperature Source Temporal Pulse Rate 80 Respiratory Rate 16 Respiratory Pattern Normal Blood Pressure 120/77 Blood Pressure Mean 91 Blood Pressure Source Monitor Blood Pressure Position Semi-Fowlers Blood Pressure Location Right Arm Pulse Ox 98 Oxygen Delivery Method Room Air Weight Weight: 220 lb 3.869 oz Body Mass Index (BMI) 29.8 Physical Exam Const alert, oriented x3, no apparent distress and healthy appearing General Appearance: cooperative GI normal to inspection, nondistended, normoactive bowel sounds, soft to palpation, non-tender and non-distended Percussion: normal to percussion Rectal Exam: deferred Assessment & Plan Assessment/Plan (1) GERD (gastroesophageal reflux disease): (2) Dysphagia: PLAN: Assessment and Plan Assessment and Plan (1) GERD (gastroesophageal reflux disease): Status: Chronic Plan: Maribell is a 49-year-old male patient who established with GI office for rectal bleeding in June 2024. Colonoscopy was with normal findings. He did have internal hemorrhoids. Patient no longer having bleeding at this time. Patient was advised to follow-up with GI by his pulmonary CLINICAL TRIAL LEADER Delores Vaz for symptoms of uncontrolled GERD. Patient endorses a long history of GERD with last EGD being 6 years ago. Patient is currently on omeprazole 40 mg daily but does not completely control his symptoms. Patient also admits to difficulty swallowing both solids and liquids at times although he is unable to say how often. Patient will undergo EGD at this time to assess his upper GI tract. We will consider increasing his omeprazole or switching therapies pending results. - EGD - Consider switching PPI or increasing dosage - Follow-up after procedure
--- NOTE | 2024-12-15 07:45 | OP.PROVAT_ITS ---
12/15/2024 Jesse Love Re : Upper GI endoscopy procedure for Dontae Parra Dear David This procedure was performed on Sunday, December 15, 2024. My impressions and recommendations are as follows: Impressions : - LA Grade A reflux esophagitis with no bleeding. Biopsied. - Erythematous mucosa in the gastric body. Biopsied. - No gross lesions in the entire examined duodenum. Recommendations : - Await pathology results. - Continue present medications. My findings are described in the full procedure note, which is enclosed. If I can be of further assistance, please feel free to contact me at . Sincerely, Calvin Jasso, 12/15/2024 7:44:21 AM This report has been signed electronically.
--- NOTE | 2024-12-15 07:45 | OP.EGD_ITS ---
Patient Name: Dontae Parra Procedure Date: 12/15/2024 7:22 AM Date of : 1975 Age: 49 Procedure: Upper GI endoscopy Indications: Acute post hemorrhagic anemia, Peptic ulcer Providers: Calvin Jasso DO Referring MD: Jesse Love Medicines: Monitored Anesthesia Care Patient Profile: This is a 49 year old male. Refer to note in patient chart for documentation of history and physical. Patient has symptoms of acute epigastric abdominal pain. Complications: No immediate complications. Procedure: Pre-Anesthesia Assessment: - Prior to the procedure, a History and Physical was performed, and patient medications and allergies were reviewed. The patient is competent. The risks and benefits of the procedure and the sedation options and risks were discussed with the patient. All questions were answered and informed consent was obtained. Patient identification and proposed procedure were verified by the physician in the pre-procedure area. Mental Status Examination: alert and oriented. Airway Examination: normal oropharyngeal airway and neck mobility. Respiratory Examination: clear to auscultation. CV Examination: normal. ASA Grade Assessment: II - A patient with mild systemic disease. After reviewing the risks and benefits, the patient was deemed in satisfactory condition to undergo the procedure. The anesthesia plan was to use monitored anesthesia care (MAC). Immediately prior to administration of medications, the patient was re-assessed for adequacy to receive sedatives. The heart rate, respiratory rate, oxygen saturations, blood pressure, adequacy of pulmonary ventilation, and response to care were monitored throughout the procedure. The physical status of the patient was re-assessed after the procedure. After obtaining informed consent, the endoscope was passed under direct vision. Throughout the procedure, the patient's blood pressure, pulse, and oxygen saturations were monitored continuously. The gastroscope was introduced through the mouth, and advanced to the third part of the duodenum. Small bowel enteroscopy was deemed necessary. The upper GI endoscopy was accomplished without difficulty. The patient tolerated the procedure well. Scope In: 7:30:06 AM Scope Out: 7:35:20 AM Total Procedure Duration Time 0 hours 5 minutes 14 seconds Findings: LA Grade A (one or more mucosal breaks less than 5 mm, not extending between tops of 2 mucosal folds) esophagitis with no bleeding was found 38 to 40 cm from the incisors. Biopsies were taken with a cold forceps for histology. Verification of patient identification for the specimen was done. Estimated blood loss was minimal. Patchy mildly erythematous mucosa without bleeding was found in the gastric body. Biopsies were taken with a cold forceps for histology. Biopsies were taken with a cold forceps for Helicobacter pylori testing. No gross lesions were noted in the entire examined duodenum. Impression: - LA Grade A reflux esophagitis with no bleeding. Biopsied. - Erythematous mucosa in the gastric body. Biopsied. - No gross lesions in the entire examined duodenum. Recommendation: - Await pathology results. - Continue present medications. Procedure Code(s): --- Professional --- 79640, Small intestinal endoscopy, enteroscopy beyond second portion of duodenum, not including ileum; with biopsy, single or multiple CPT copyright 2021 [employer] [employer]. All rights reserved. The codes documented in this report are preliminary and upon office services specialist review may be revised to meet current compliance requirements. Calvin Jasso DO 12/15/2024 7:44:21 AM This report has been signed electronically. Number of Addenda: 0 Note Initiated On: 12/15/2024 7:22 AM
--- NOTE | 2024-12-15 07:46 | PCM.POST.ANE ---
Anesthesia: Postop Eval I Current Vital Signs Temperature: 97.4 F Pulse Rate: 88 Blood Pressure: 104/71 Respiratory Rate: 14 Pulse Ox: 93 Oxygen Delivery Method: Room Air Assessment Airway patent: Yes Spontaneous unlabored respirations: Yes Mental status: Asleep nausea: No Vomiting: No Anesthesia Complication: No Fluid Hydration Crystalloid volume administer (ml): 400 Total IV fluid infused: 400 Progress Note Anesthesia document: Postop Eval 1 completed: Yes
--- NOTE | 2024-12-15 12:09 | PCM.POSTANE2 ---
Anesthesia Postop Eval I Sum Postop Eval Completion status Anesthesia document: Postop Eval 1 completed: Yes Anesthesia Postop Eval I Summary Anesthesia Postop Eval I Summary: Anesthesia Postop Eval I: Assessment Summary Airway patent Yes 12/15/24 07:47 [email or web address] Spontaneous unlabored Yes 12/15/24 07:47 [email or web address] respirations Mental status Asleep 12/15/24 07:47 [email or web address] nausea No 12/15/24 07:47 [email or web address] Vomiting No 12/15/24 07:47 [email or web address] Anesthesia Postop Eval I: Fluid Summary Crystalloid volume administer 400 12/15/24 07:47 [email or web address] (ml) Colloids volume administered ( ml) Blood Product volume administered (ml) Total IV fluid infused 400 12/15/24 07:47 [email or web address] Anesthesia Postop Eval I: Summary Notes Anesthesia Complication No 12/15/24 07:47 [email or web address] Anesthesia Complication Comment: Post-operative progress note Anesthesia: Postop Eval II Evaluation Mental status: Awake and Calm Pain Level: 0 nausea: No Vomiting: No Complications Anesthesia Complication: No
== END 2024-12-15 08:23 | disposition home or self-care (01) ==
LOC: EN 06:38 → AC 06:39
PROVIDERS: PCP Nurse Practitioner Family; Referring Provider Nurse Practitioner Family; Visit Provider Internal Medicine Gastroenterology
PROC: 0DJ08ZZ Inspection of Upper Intestinal Tract, Via Natural or Artificial Opening Endoscopic (ICD-10-PCS; CPT 43235; principal; 2024-12-15 06:55)
DX: K21.00 Gastro-esophageal reflux disease with esophagitis, without bleeding (principal); I11.0 Hypertensive heart disease with heart failure; I50.20 Unspecified systolic (congestive) heart failure; J44.9 Chronic obstructive pulmonary disease, unspecified; I25.10 Atherosclerotic heart disease of native coronary artery without angina pectoris; R13.10 Dysphagia, unspecified; Z79.51 Long term (current) use of inhaled steroids; Z99.81 Dependence on supplemental oxygen; E78.00 Pure hypercholesterolemia, unspecified; Z95.5 Presence of coronary angioplasty implant and graft; I25.2 Old myocardial infarction; Z79.82 Long term (current) use of aspirin; Z79.02 Long term (current) use of antithrombotics/antiplatelets; F17.210 Nicotine dependence, cigarettes, uncomplicated; K29.50 Unspecified chronic gastritis without bleeding
CPT/HCPCS: 44361; 88305; 88342; J2405

== ENCOUNTER 2025-01-17 19:51 | Emergency (ER) | payer OTHER, SELFPAY ==
[2025-01-17 19:51] VITALS: BP 117/72; PULSE 99; RESP 25; TEMP 37; O2SAT 98; BMI 31.4
--- NOTE | 2025-01-17 20:03 | EKG12_ITS ---
Test Reason : CP Blood Pressure : */* mmHG Vent. Rate : 88 BPM Atrial Rate : 88 BPM P-R Int : 168 ms QRS Dur : 84 ms QT Int : 334 ms P-R-T Axes : 41 50 61 degrees QTcB Int : 404 ms Undetermined rhythm Otherwise normal ECG Confirmed by SARAH WAITE ([id number]), photographic editor MARY MORENO ([id number]) on 01/19/2025 6:41:59 AM Referred By: SHELLEY Confirmed By: SARAH WAITE
--- NOTE | 2025-01-17 20:12 | ED.VIS.CHEST ---
HPI History of Present Illness Chief Complaint: Chest Pain Informant: patient and spouse/S.O. Onset/Context/Timing Onset: Today and Yesterday Activity at onset: sudden Timing: Intermittent Quality: Positive for Pain and Sharp Current Severity: Gone Maximum Severity: Mild Worsened By: Nothing Relieved By: Nothing Associated Symptoms: Positive for Dyspnea and Cough; Negative for Acid Reflux or Palpitations Narrative Narrative: 49-year-old male history of CAD with 3 prior MIs and 14 stents, 2 prior strokes, COPD on oxygen at night to sleep. He has been on antibiotics 78 days for pneumonia diagnosis primary care physician's office. He did not have any testing done or x-ray. Initially thought he is feeling better last couple days he has felt worse. More short of breath. Piercing sharp intermittent chest pain. No history of DVT or PE no recent travel surgery immobilization. No hemoptysis. No pleuritic pain. No calf pain or swelling. Prior Similar Symptoms: No Recent Illness/Hospitalization: No PE Risk Factors: Negative for Recent Travel/Surgery, Recent Immobilization, Prior DVT or PE, Cancer or OCP + Smoking + >/=35 TAD Risk Factors: Negative for Marfan's Syndrome [facility] Medical History History of echocardiogram Wears dentures Wears glasses Arthritis High cholesterol Injury of head and neck Injury of back History of IBS Gastric reflux Smoker CPAP (continuous positive airway pressure) dependence On home oxygen therapy Emphysema, unspecified Shortness of breath on exertion Cardiology follow-up encounter History of stress test History of irregular heartbeat RLQ abdominal pain GI bleed Chronic cough Family history of ischemic heart disease and other diseases of the circulatory system Presence of stent in coronary artery (~02/01/22) Old myocardial infarction Nicotine addiction Abdominal distension (gaseous) Unspecified systolic (congestive) heart failure Atherosclerosis of coronary artery of [place] heart without angina pectoris Noncompliance with medications Essential hypertension COPD (chronic obstructive pulmonary disease) Asthma CAD (coronary artery disease) Home Medications ?Medication ?Instructions ?Recorded ?Last Taken ?Type albuterol sulfate 2.5 mg/3 mL 2.5 mg inhalation Q4H PRN 05/22/22 Unknown History (0.083 %) solution for nebulization shortness of breath or wheezing aspirin 81 mg tablet,delayed 81 mg PO DAILY 05/22/22 12/10/24 History release magnesium oxide 250 mg PO DAILY 05/22/22 Unknown History omeprazole 40 mg capsule,delayed 40 mg PO DAILY 05/22/22 Unknown History release carvedilol phosphate 20 mg 20 mg PO DAILY 06/15/22 Unknown History capsule,[id number] multiphase potassium chloride 20 mEq 20 meq PO DAILY 01/24/23 Unknown History tablet,extended release(part/cryst) hydrochlorothiazide 25 mg tablet 25 mg PO DAILY #30 tabs 05/25/23 Unknown Rx nitroglycerin 0.4 mg sublingual 0.4 mg sublingual Q5-15M PRN chest 09/17/23 Unknown History tablet pain clopidogrel 75 mg tablet 75 mg PO DAILY #90 tabs 11/08/23 12/10/24 Rx prazosin 1 mg capsule 1 mg PO QHS #30 caps 04/22/24 Unknown Rx albuterol sulfate 90 mcg/actuation 2 puff inhalation Q4H PRN 09/05/24 12/15/24 Rx aerosol inhaler shortness of breath or wheezing #8.5 grams budesonide 0.5 mg/2 mL suspension 0.5 mg (2 mL) inhalation Q12H 09/05/24 Unknown Rx for nebulization BREATHING #60 mL fluticasone furoate 200 1 inh inhalation Q24H #30 ea 09/05/24 Unknown Rx mcg/actuation blister powder for inhalation (Arnuity Ellipta) ipratropium 0.5 mg-albuterol 3 mg 3 ml inhalation Q6H BREATHING #180 09/05/24 Unknown Rx (2.5 mg base)/3 mL nebulization mL soln mepolizumab 100 mg/mL subcutaneous 100 mg subcut Q4W #1 mL 09/05/24 Unknown Rx auto-injector (Nucala) montelukast 10 mg tablet 10 mg PO QPM #90 tabs 09/05/24 Unknown Rx umeclidinium 62.5 mcg-vilanterol 1 inh inhalation Q24H #60 ea 09/05/24 Unknown Rx 25 mcg/actuation powdr for inhalation (Anoro Ellipta) rosuvastatin 40 mg tablet 40 mg PO QDAY 10/08/24 Unknown History bupropion HCl (smoking deter) 150 300 mg PO DAILY 01/17/25 Unknown History mg tablet,12 hr sustained-release(smoking deterrent) dexamethasone 6 mg tablet 6 mg PO DAILY 01/17/25 Unknown History doxycycline hyclate 100 mg capsule 100 mg PO BID 01/17/25 Unknown History guaifenesin 1,200 mg tablet, 1,200 mg PO Q12.TCU 01/17/25 Unknown History extended release 12 hr ranolazine 500 mg tablet,extended 500 mg PO DAILY 01/17/25 Unknown History release,12 hr trazodone 100 mg tablet 100 mg PO QHS PRN PRN insomnia 01/17/25 Unknown History Allergy/AdvReac Type Severity Reaction Status Date / Time isosorbide Allergy Severe Severe Verified 01/17/25 19:52 headaches amlodipine AdvReac Intermediate Severe Verified 01/17/25 19:52 headache Family History Mother Cancer Ovarian Grandmother Cancer breast cancer. Heart disease Myocardial infarction Grandfather Cancer Lung Fibromyalgia Father Cancer Surgical History H/O colonoscopy History of cardiac catheterization History of left heart catheterization (LHC) (~09/25/22) Presence of coronary angioplasty implant and graft (~02/01/22) H/O inguinal hernia repair H/O arthroscopic knee surgery H/O hand surgery Social History Smoking Status: Current every day smoker tobacco type: cigarettes quit status: has quit before alcohol intake: never substance use type: does not use caffeine: Yes Type: coffee Number of servings: 3 ROS ROS ED ROS Narrative Recent cough. Denies vomiting diarrhea. Denies melena. Denies calf swelling or significant pain. No hemoptysis. Constitutional Constitutional ED: Denies chills or fever(s) Eyes Eyes: Reports none ENT ENT ED: Denies ear pain Cardiovascular Cardiovascular: Reports as per HPI and chest pain Respiratory/Chest Respiratory/Chest: Reports cough and dyspnea; Denies sputum Gastrointestinal Gastrointestinal: Denies abdominal pain Genitourinary Genitourinary ED: Denies dysuria or hematuria Musculoskeletal Musculoskeletal: Denies arthralgias Integumentary Denies abscess Neurologic Neurologic: Denies headache(s) Psychiatric Psychiatric: Denies anxiety or depression Endocrine Endocrinology: Denies cold intolerance Hematologic/Lymphatic Hematologic/Lymphatic: Denies easy bleeding, easy bruising or lymphadenopathy Allergic/Immunologic Allergic/Immunologic ED: Denies mouth swelling, tongue swelling or urticaria EXAM Physical Exam Narrative Exam Narrative: 49-year-old male sitting upright in bed vital signs are stable afebrile. Pulse ox 98% on room air no signs of hypoxia. No distress. He does have a mildly elevated respiratory rate. is at bedside. H EENT exam pupils round react light. Mild dry mucous membranes. Neck nontender no JVD. No lymphadenopathy. Lungs clear to auscultation bilaterally. No rales, rhonchi or wheezing. Equal symmetrical. Heart regular rhythm rate about 90 no murmur. Chest wall ribs nontender. Back nontender. Abdomen soft nontender. Normal bowel sounds without peritoneal signs. Moving all 4 extremities. Equal symmetrical cashier associate strength. Strong radial pulse. Dorsi plantarflexion intact. Calves nontender without edema or cords. Neurologically he is awake alert. Answering questions following commands. Const Vital Signs: 01/17/25 19:51 01/17/25 20:03 01/17/25 20:08 Temperature 98.6 F Temperature Source Oral Pulse Rate 99 Respiratory Rate 25 H Respiratory Effort Short of Breath Blood Pressure 117/72 Blood Pressure Mean 87 Pulse Ox 98 Oxygen Delivery Method Room Air Room Air 01/17/25 20:51 01/17/25 20:51 Temperature 98.2 F 98.2 F Temperature Source Oral Oral Pulse Rate 85 85 Respiratory Rate 24 H 24 H Respiratory Effort Blood Pressure 141/81 H 141/81 H Blood Pressure Mean 101 101 Pulse Ox 97 97 Oxygen Delivery Method Room Air Room Air MDM MDM MDM Narrative Medical decision making narrative: 49-year-old male recently diagnosed treated as outpatient pneumonia currently on antibiotics for 7+ days I believe it is Augmentin. States has been feeling worse last couple days with atypical sharp stabbing chest pain. He has got a significant pulmonary and cardiac history. I will go through a cardiac workup with a chest x-ray. COVID flu and RSV. Currently he is not wheezing [place] needs any aerosols. Differential include pneumonia, effusion, CHF, CO excetra. He has never had a DVT or PE has no current risk factors for it. He has got no calf pain or swelling. I do not think he needs a D-dimer. Repeat exam around 9:10 PM no significant change. I went over his initial test results awaiting his CAT scan results. He will be given IV Toradol because he is driving tonight, for his chest discomfort. Repeat exam around 10:44 PM patient doing well. He is comfortable being discharged home. He still has several days of antibiotics and a follow-up with his primary care physician. He was previously on steroids which she is completely finished. We discussed all his test results. History & Record Review Discussion w/independent historian: Patient and Family Additional record(s) reviewed:: Prior outpatient record, Prior ED visit and Prior labs Lab Data Attestation: I reviewed the patient's lab results. Lab results narrative: CBC shows a white count of 15.4 H&H of 15 and 45. Platelets 342. Electrolytes show a gap of 13. BUN and creatinine are 13 and 1.1. Glucose 106. Troponin less than 6. 2-hour troponin is less than 6 also. Chest x-ray chronic changes. COVID, flu and RSV are all negative. Labs: Laboratory Results - last 24 hr 01/17/25 20:00 WBC 15.4 H RBC 4.98 Hgb 15.1 Hct 45.1 MCV 90.6 MCH 30.3 MCHC 33.5 RDW Std Deviation 48.2 H RDW Coeff of Zuly 14.7 H Plt Count 342 MPV 8.0 Immature Gran % (Auto) 1.000 H Neut % (Auto) 69.1 Lymph % (Auto) 20.7 [place] % (Auto) 8.4 Eos % (Auto) 0.5 Baso % (Auto) 0.3 Absolute Neuts (auto) 10.7 H Absolute Lymphs (auto) 3.18 Nucleated RBC % 0 Sodium 140 Potassium 4.1 Chloride 100 Carbon Dioxide 26.9 Anion Gap 13 BUN 13 Creatinine 1.14 Estim Creat Clear Calc 97.15 Est GFR (MDRD) Non-Af 78 BUN/Creatinine Ratio 11.4 Glucose 106 H Calcium 9.4 Troponin T High Sens < 6 Radiography Chest X-Ray - ED: 2 View, Read by ED Physician, Heart, Lungs, Mediastinum, Bony Structures, No Acute Disease and Chronic Changes Diagnostic Testing: Chest x-ray, 2 views, AP and lateral, interpreted by myself normal cardiac silhouette. Chronic lung changes. No obvious pneumonia. No obvious effusion. Questionable left lower lobe infiltrate. CTA being obtained. Rhythm Strip Rhythm Strip: Sinus Rhythm Rate: 88 Ectopy: None EKG Initial EKG: Attestation: I personally reviewed and interpreted this EKG as follows: Interpretation: Sinus Rhythm and No Acute Injury Pattern Comments: Normal sinus rhythm rate 88 no acute signs of CO or ischemia. Artifact in lead V3. Discharge Plan Triage Chief Complaint: Chest Pain ED Provider: Yuriy Schaefer Dx/Rx/DC Orders Clinical Impression: Chest pain, History of pneumonia, History of CO (myocardial infarction), Hx of heart artery stent Instructions: ED Chest Pain, Uncertain Cause Prescriptions: No Action omeprazole 40 mg capsule,delayed release(DR/EC) 40 mg PO DAILY albuterol sulfate 2.5 mg /3 mL (0.083 %) solution for nebulization 2.5 mg inhalation Q4H PRN (Reason: shortness of breath or wheezing) magnesium oxide 250 mg magnesium tablet 250 mg PO DAILY aspirin 81 mg tablet,delayed release (DR/EC) 81 mg PO DAILY carvedilol phosphate 20 mg capsule, ER multiphase 24 hr 20 mg PO DAILY Rx Instructions: must administer with a meal/food nitroglycerin 0.4 mg tablet, sublingual 0.4 mg sublingual Q5-15M PRN (Reason: chest pain) Nucala 100 mg/mL auto-injector 100 mg subcut Q4W Qty: 1 11RF umeclidinium-vilanterol [Anoro Ellipta] 62.5-25 mcg/actuation blister with device 1 inh inhalation Q24H Qty: 60 5RF montelukast 10 mg tablet 10 mg PO QPM Qty: 90 3RF ipratropium-albuterol 0.5 mg-3 mg(2.5 mg base)/3 mL solution for nebulization 3 ml inhalation Q6H Qty: 180 5RF Arnuity Ellipta 200 mcg/actuation blister with device 1 inh inhalation Q24H Qty: 30 11RF albuterol sulfate 90 mcg/actuation HFA aerosol inhaler 2 puff inhalation Q4H PRN (Reason: shortness of breath or wheezing) Qty: 8.5 0RF budesonide 0.5 mg/2 mL suspension for nebulization 0.5 mg inhalation Q12H Qty: 60 11RF rosuvastatin 40 mg tablet 40 mg PO QDAY potassium chloride 20 mEq tablet,ER particles/crystals 20 meq PO DAILY doxycycline hyclate 100 mg capsule 100 mg PO BID dexamethasone 6 mg tablet 6 mg PO DAILY guaifenesin 1,200 mg tablet extended release 12hr 1,200 mg PO Q12.TCU trazodone 100 mg tablet 100 mg PO QHS PRN PRN (Reason: insomnia) ranolazine 500 mg tablet extended release 12 hr 500 mg PO DAILY bupropion HCl (smoking deter) 150 mg tablet extended release 12 hr 300 mg PO DAILY hydrochlorothiazide 25 mg tablet 25 mg PO DAILY Qty: 30 11RF clopidogrel 75 mg tablet 75 mg PO DAILY Qty: 90 3RF prazosin 1 mg capsule 1 mg PO QHS Qty: 30 2RF Primary Care Provider: JEANNIE MAGALLANES Referrals: JEANNIE MAGALLANES, [employer] [Primary Care Provider, Family Practice] - 3-5 Days if not improving Activity Restrictions/Additional Instructions: Finish your current antibiotic prescription. Tylenol and/or Motrin for pain. Follow-up with your primary care provider if not improving return emergency department feeling worse. Print Language: Lithuanian Disposition Disposition: Home, Self Care
[2025-01-17 20:19] LABS: Hematocrit 45.1 % (40-54); Hemoglobin 15.1 g/dL (13.0-16.5); Immature Granulocytes Count 0.150 X10^3/uL (0.0-0.0); Mean Corp Hgb Conc 33.5 g/dL (32-36); Mean Corpuscular Volume 90.6 fL (80-94); Mean Platelet Vol. 8.0 fl (6.2-12.0); NRBC Flagged by Analyzer 0 % (0-5); Platelet Count 342 K/mm3 (150-450); RBC Distribution Width CV 14.7 % (11.6-14.6); RBC Distribution Width SD 48.2 fl (35.1-43.9); Red Blood Count 4.98 M/mm3 (4.6-6.2); White Blood Count 15.4 K/mm3 (4.4-11.0)
--- NOTE | 2025-01-17 20:24 | RAD_ITS ---
PROCEDURE: CHEST PA AND LATERAL 01/17/2025 REASON FOR EXAM: CHEST PAIN TECHNIQUE: Procedure Code: RADCXR Modality: DX Procedure: CHEST PA AND LATERAL COMPARISON: Chest x-ray 02/19/2024. FINDINGS: Hardware: Monitor electrodes overlie the chest. Heart: No cardiomegaly. Mediastinum: Unremarkable. Lungs: Clear. Bones: No acute bony abnormalities. RAD/Chest PA and Lateral IMPRESSION: Negative chest x-ray. Reading Location: [id number]
--- NOTE | 2025-01-17 20:29 | CT_ITS ---
PROCEDURE: CTA CHEST W/WO CONTRAST 01/17/2025 REASON FOR EXAM: DYSPNEA ?? LOWER LOBE PNEUMONIA ON CXR TECHNIQUE: Procedure Code: [id number] Modality: CT Procedure: CTA CHEST W/WO CONTRAST Multiplanar Sagittal and Coronal images were obtained. CONTRAST: Isovue 370 VOLUME: 75 mL One or more dose reduction techniques were used (e.g., Automated exposure control, adjustment of the mA and/or kV according to patient size, use of iterative reconstruction technique). RADIATION DOSE SUMMARY: CTDlvol: 14.53 mGy DLP: 451.36 mGycm COMPARISON: CT chest December 01, 2023. # of known CTs in the past 12 months: 0 # of known Cardiac Nuclear Medicine Studies in the past 12 months: Serum FINDINGS: Thoracic Aorta: No aneurysm. No dissection. Heart: Mild cardiomegaly. Atherosclerotic calcifications. Pulmonary Vessels: Evidence of pulmonary embolism. Hardware: None. Lymph nodes: No lymphadenopathy Lungs and Airways: Diffuse ground-glass densities concerning for CHF or pneumonia. Pleura: No pleural effusion or pneumothorax. Upper Abdomen: No acute abdominal findings. Bones: No acute bony elements. CT/CTA Chest W/WO Contrast IMPRESSION: No evidence of pulmonary embolism. Diffuse densities may represent CHF or pneumonia. Reading Location: [id number]
--- OUTSIDE RECORDS SUMMARY | 2025-01-17 20:31 | XMS RPT_ITS | CCD ---
Author Organization [facility] Care Team Providers Care Film Recordist Name Role Phone Sherita, Dylan Unavailable Unavailable [...] DANILO ALVARADO MD Primary Care Unavailable Shila CONTAMINATED LAND CONSULTANT, CONTAMINATED LAND CONSULTANT-C Frances Attending Provider Dr. Bria Olsen Attending Provider Dr. Estevan Dixon Attending Provider Dr. Bria Olsen Referring Provider Dr. Tim Alvarado Primary Care Provider Dr. Tim Alvarado Referring Provider [facility] Doctor, Out of Primary Care Provider [facility] Doctor, Out of Referring Provider Unavailab le Roof CONTAMINATED LAND CONSULTANT, CONTAMINATED LAND CONSULTANT-C Elda Leal Attending Provider Shila CONTAMINATED LAND CONSULTANT, CONTAMINATED LAND CONSULTANT-C Frances Attending Provider Dr. Tim Alvarado Primary Care Provider Dr. Tim Alvarado Referring Provider [facility] Doctor, Out of Primary Care Provider [facility] Doctor, Out of Referring Provider Unavailab le Roof CONTAMINATED LAND CONSULTANT, CONTAMINATED LAND CONSULTANT-C Elda Leal Attending Provider DANILO ALVARADO Primary Care Provider Unavailabl e Dr. Bahman Alvarado Attending Provider Dr. Bahman Alvarado Referring Provider Dr. Bahman Alvarado Other Provider DANILO ALVARADO Primary Care Provider [facility] Doctor, Out of Referring Provider Unavailab le Roof CONTAMINATED LAND CONSULTANT, CONTAMINATED LAND CONSULTANT-C Elda Leal Attending Provider Dylan Magallon Primary Care Provider MUMTAZ HOLLEY DO Admitting Unavailable DIDMUMTAZ TRUJILLO DO Attending Unavailable MUMTAZ HOLLEY DO Primary Care Unavailable DAVID SENIOR QUALITY ASSURANCE SPECIALIST-SWITCHBOARD AND CONTROL ROOM OPERATOR, JEANNIE Primary Care Physician DYLAN MAGALLON Primary Care Unavailable NONE, PCP Referring Unavailable ACACIA, KAMAL Admitting Unavailable ACACIA, KAMAL Attending Unavailable DAVID SENIOR QUALITY ASSURANCE SPECIALIST-SWITCHBOARD AND CONTROL ROOM OPERATOR, JEANNIE Primary Care Nevaeh HERNANDEZ SENIOR QUALITY ASSURANCE SPECIALIST-SWITCHBOARD AND CONTROL ROOM OPERATOR, JEANNIE Attending Nevaeh WARREN SENIOR QUALITY ASSURANCE SPECIALIST-SWITCHBOARD AND CONTROL ROOM OPERATOR, LAURA Attending Unavai lable DAVID SENIOR QUALITY ASSURANCE SPECIALIST-SWITCHBOARD AND CONTROL ROOM OPERATOR, JEANNIE Primary Care Unavai lable DAVID SENIOR QUALITY ASSURANCE SPECIALIST-SWITCHBOARD AND CONTROL ROOM OPERATOR, JEANNIE Attending Unavai lable DAVID SENIOR QUALITY ASSURANCE SPECIALIST-SWITCHBOARD AND CONTROL ROOM OPERATOR, JEANNIE Primary Care Unavai lable DAVID SENIOR QUALITY ASSURANCE SPECIALIST-SWITCHBOARD AND CONTROL ROOM OPERATOR, JEANNIE Attending Unavai lable DAVID SENIOR QUALITY ASSURANCE SPECIALIST-SWITCHBOARD AND CONTROL ROOM OPERATOR, JEANNIE Primary Care Unavai lable DAVID SENIOR QUALITY ASSURANCE SPECIALIST-SWITCHBOARD AND CONTROL ROOM OPERATOR, JEANNIE Attending Unavai lable DAVID SENIOR QUALITY ASSURANCE SPECIALIST-SWITCHBOARD AND CONTROL ROOM OPERATOR, JEANNIE Primary Care Unavai lable DAVID SENIOR QUALITY ASSURANCE SPECIALIST-SWITCHBOARD AND CONTROL ROOM OPERATOR, JEANNIE Primary Care Unavai lable OSCAR SENIOR QUALITY ASSURANCE SPECIALIST - SWITCHBOARD AND CONTROL ROOM OPERATOR, MICHELLE Almanza Attending U Delores Mccallum Attending Unavailable DAVID, JEANNIE Referring Unavailable DAVID, JEANNIE Primary Care Unavailable Roof CONTAMINATED LAND CONSULTANT, Elda Leal Attending Unavailable DAVID, JEANNIE Referring Unavailable DAVID, JEANNIE Primary Care Unavailable DAVID, JEANNIE Primary Care Unavailable Delores Pablo Attending Unavailable DAVID, JEANNIE Referring Unavailable DAVID, JEANNIE Referring Unavailable DAVID, JEANNIE Primary Care Unavailable Jenna Munroe Attending Unavailable Roof CONTAMINATED LAND CONSULTANT, Elda Leal Attending Unavailable DAVID, JEANNIE Primary Care Unavailable DAVID, JEANNIE Primary Care Unavailable Roof CONTAMINATED LAND CONSULTANT, Elda Leal Referring Unavailable Roof CONTAMINATED LAND CONSULTANT, Elda Leal Consulting Unavailable Bria Olsen Attending Unavailable Friend, Calvin Consulting Unavailable Friend, Calvin Attending Unavailable DAVID, JEANNIE Referring Unavailable DAVID, JEANNIE Primary Care Unavailable DAVID, JEANNIE Primary Care Unavailable Alba Bernal Attending Unavailable Delores Pablo Attending Unavailable DAVID, JEANNIE Primary Care Unavailable DAVID, JEANNIE Referring Unavailable Delores Pablo Attending Unavailable DAVID, JEANNIE Referring Unavailable DAVID, JEANNIE Primary Care Unavailable DAVID, JEANNIE Primary Care Unavailable Macrina Donaldson Attending Unavailable Macrina Donaldson Referring Unavailable DAVID, JEANNIE Primary Care Unavailable Delores Pablo Attending Unavailable Delores Pablo Referring Unavailable DAVID, JEANNIE Primary Care Unavailable Elizabeth Azar Attending Unavailable Elizabeth Azar Referring Unavailable DAVID, JEANNIE Primary Care Unavailable Roof CONTAMINATED LAND CONSULTANT, Elda Leal Attending Unavailable Roof CONTAMINATED LAND CONSULTANT, Elda Leal Referring Unavailable DAVID, JEANNIE Referring Unavailable DAVID, JEANNIE Primary Care Unavailable Shila CONTAMINATED LAND CONSULTANT, Frances Attending Unavailable Griffin Howell Attending Unavailable DAVID, JEANNIE Primary Care Unavailable DAVID, JEANNIE Referring Unavailable Macrina Donaldson Attending Unavailable DAVID, JEANNIE Primary Care Unavailable DAVID, JEANNIE Primary Care Unavailable Delores Pablo Referring Unavailable Delores Pablo Attending Unavailable FriendCalvin Attending Unavailable DAVID, JEANNIE Referring Unavailable DAVID, JEANNIE Primary Care Unavailable Friend, Calvin Attending Unavailable DAVID, JEANNIE Primary Care Unavailable DAVID, JEANNIE Referring Unavailable RufenerDelores M Referring Unavailable RufenerDelores Attending Unavailable DAVID, JEANNIE Primary Care Unavailable Roof CONTAMINATED LAND CONSULTANT, Elda Leal Attending Unavailable DAVID, JEANNIE Referring Unavailable DAVID, JEANNIE Primary Care Unavailable Raina Orozco Attending Unavailable DAVID, JEANNIE Primary Care Unavailable DAVID, JEANNIE Referring Unavailable RufenerDelores Attending Unavailable DAVID, JEANNIE Primary Care Unavailable DAVID, JEANNIE Referring Unavailable DAVID, JEANNIE Primary Care Unavailable Roof CONTAMINATED LAND CONSULTANT, Elda Leal Referring Unavailable Bria Olsen Attending Unavailable Alba Bernal Attending Unavailable DAVID, JEANNIE Primary Care Unavailable Friend, Calvin Consulting Unavailable Friend, Calvin Attending Unavailable DAVID, JEANNIE Primary Care Unavailable DAVID, JEANNIE Referring Unavailable Alba Bernal Attending Unavailable DAVID, JEANNIE Primary Care Unavailable Allergies Allergy Classification Reported Allergen(s) Allergy Type Date of Onset Reaction(s) Facility (11 sources) amLODIPine Drug Allergy 3 Severe headache [facility] (2 sources) atorvastatin Drug Allergy 7 Other [facility] (2 sources) Isosorbide Drug Allergy 7 Other [facility] (1 source) amLODIPine Drug Allergy 5 [facility] (1 source) Isosorbide Drug Allergy 5 [facility] Medications Current Medications Medication Drug Class(es) Dates Sig (Normalized) Sig (Original) Albuterol (Eqv-ProAir HFA) 90 mcg/inh inhalation aerosol (6 sources) Start: 06-13-2024 take 1 dose by inhalation every four hours as needed for wheezing Albuterol (Eqv-ProAir HFA) 90 mcg/inh inhalation aerosol Dose = 2 puff(s), Inhalation, q4h, PRN as needed for wheezing, # 54 gram(s), 3 Refill(s), Pharmacy: [facility], 181.5, cm, 03/19/24 8:27:00 EST, [...] wheezing, # 54 gram(s), 3 Refill(s), Pharmacy: [facility], 181.5, cm, 03/19/24 8:27:00 EST, [...] wheezing, # 18 gram(s), 1 Refill(s), Pharmacy: [facility], 183, cm, 09/12/23 7:34:00 EDT, Height, kg, 09/12/23 7:34:00 EDT, Dosing Weight Start Date: 09/12/23 Status: Ordered Anoro Ellipta 62.5 mcg-25 mcg/inh inhalation powder (5 sources) Start: 09-17-2024 End: 03-11-2026 take 1 dose by inhalation once daily Anoro Ellipta 62.5 mcg-25 mcg/inh inhalation powder Dose = 1 puff(s), Inhalation, qDay, # 1 EA, 5 Refill(s), Pharmacy: [facility], 182, cm, 09/17/24 9:01:00 EDT, Height, [...] Daily, # 90 tab(s), 1 Refill(s), Pharmacy: [facility], 182, cm, 09/17/24 9:01:00 EDT, Height, kg, 09/17/24 9:01:00 EDT, Dosing Weight Start Date: 09/17/24 Status: Ordered Medication Dispense Status: Completed Quantity: 90.0 Unit: tab(s) Total Allowed Fills: 2 Fills Dispensed: 0 Start: 11-29-2023 End: 12-01-2023 aspirin 81 mg oral delayed r elease tablet Dose : 81 mg = 1 tab(s), Oral, Daily, # 90 tab(s), 3 Refill(s), Pharmacy: [facility], 183, cm, 09/12/23 7:34:00 EDT, Height, [...] use, # 10.7 gram(s), 5 Refill(s), Pharmacy: [facility], History of COPD, 183, cm, [...] BID, # 180 tab(s), 1 Refill(s), Pharmacy: [facility], 182, cm, 09/17/24 9:01:00 EDT, Height, [...] BID, # 180 tab(s), 1 Refill(s), Pharmacy: [facility], 181.5, cm, 03/19/24 8:27:00 EST, Height, kg, 03/19/24 8:27:00 EST, Dosing Weight Start Date: 03/19/24 Stop Date: 09/15/24 Status: Ordered Quantity: 180.0 Unit: tab(s) Repeat number: 2 Start: 12-03-2023 End: 01-02-2024 BuPROPion (Eqv-Wellbutrin SR ) 150 mg/12 hours oral tablet, extended release Dose : 150 mg = 1 tab(s), Oral, BID, # 60 tab(s), 0 Refill(s), Pharmacy: [facility], 183, cm, 09/12/23 7:34:00 EDT, Height, kg, 09/12/23 7:34:00 EDT, Dosing Weight Start Date: 12/03/23 Stop Date: 01/02/24 Status: Ordered 24 hr carvedilol phosphate 20 mg extended release oral capsule (20 sources) alpha-Adrenergic Hola, beta-Adrenergic Hola Start: 09-17-2024 End: 03-16-2025 carvedilol 20 mg oral capsule, extended release Dose : 20 mg = 1 cap(s), Oral, qAM, # 90 cap(s), 1 Refill(s), Pharmacy: [facility], 182, cm, 09/17/24 9:01:00 EDT, Height, kg, 09/17/24 9:01:00 EDT, Dosing Weight Start Date: 09/17/24 Stop Date: 03/16/25 Status: Ordered Medication Dispense Status: Completed Quantity: 90.0 Unit: cap(s) Total Allowed Fills: 2 Fills Dispensed: 0 Start: 03-19-2024 End: 09-15-2024 carvedilol 20 mg oral capsul e, extended release Dose : 20 mg = 1 cap(s), Oral, qAM, # 90 cap(s), 1 Refill(s), Pharmacy: [facility], 181.5, cm, 03/19/24 8:27:00 EST, Height, kg, 03/19/24 8:27:00 EST, Dosing Weight Start Date: 03/19/24 Stop Date: 09/15/24 Status: Ordered Quantity: 90.0 Unit: cap(s) Repeat number: 2 Start: 12-03-2023 carvedilol 20 mg oral capsule, extended release Dose : 20 mg = 1 cap(s), Oral, qAM, # 30 cap(s), 0 Refill(s), Pharmacy: [facility], 183, cm, 09/12/23 7:34:00 EDT, [...] qDay, # 90 tab(s), 1 Refill(s), Pharmacy: [facility], 182, cm, 09/17/24 9:01:00 EDT, Height, kg, 09/17/24 9:01:00 EDT, Dosing Weight Start Date: 09/17/24 Stop Date: 03/16/25 Status: Ordered Medication Dispense Status: Completed Quantity: 90.0 Unit: tab(s) Total Allowed Fills: 2 Fills Dispensed: 0 Start: 12-03-2023 Plavix 75 mg o ral tablet Dose : 75 mg = 1 tab(s), Oral, qDay, # 30 tab(s), 11 Refill(s), Pharmacy: [facility], 183, cm, 09/12/23 7:34:00 EDT, Height, [...] 0 Refill(s), 08/04/24 11:57:00 AM EDT, Pharmacy: [facility], COPD with exacerbation Wheezing on [...] 0 Refill(s), 08/11/24 11:56:00 AM EDT, Pharmacy: [facility], Acute bronchitis, bacterial Pertussis pneumonia, [...] 0 Refill(s), 12/29/23 4:46:00 PM EST, Pharmacy: [facility], Bronchitis, 181.51, cm, 12/19/23 15:46:00 [...] 0 Refill(s), 08/07/24 11:57:00 AM EDT, Pharmacy: [facility], Cough productive of purulent sputum, [...] 0 Refill(s), 12/29/23 4:47:00 PM EST, Pharmacy: [facility], Bronchitis, 181.51, cm, 12/19/23 15:46:00 EDT, Height, kg, 12/19/23 15:46:00 EDT, Dosing Weight Start Date: 12/19/23 Stop Date: 12/29/23 Status: Ordered 24 hr isosorbide mononitrate 30 mg extended release oral tablet (9 sources) Nitrate Vasodilator Start: 02-18-2024 isosorbide mononitrate 30 mg oral tablet, extended release Dose : 30 mg = 1 tab(s), Oral, qAM, # 90 tab(s), 1 Refill(s), Pharmacy: [facility], 181.51, cm, 12/19/23 15:46:00 EDT, Height, kg, 12/19/23 15:46:00 EDT, Dosing Weight Start Date: 02/18/24 Status: Ordered Quantity: 90.0 Unit: tab(s) Repeat number: 2 Start: 12-03-2023 isosorbide mon onitrate 30 mg oral tablet, extended release Dose : 30 mg = 1 tab(s), Oral, qAM, # 30 tab(s), 0 Refill(s), Pharmacy: [facility], 183, cm, 09/12/23 7:34:00 EDT, [...] 1 Refill(s), 09/15/24 9:32:00 AM EDT, Pharmacy: [facility], 181.5, cm, 03/19/24 8:27:00 EST, Height, [...] qDay, # 90 tab(s), 1 Refill(s), Pharmacy: [facility], 182, cm, 09/17/24 9:01:00 EDT, Height, [...] qDay, # 90 tab(s), 1 Refill(s), Pharmacy: [facility], 183, cm, 09/12/23 7:34:00 EDT, [...] cessation, # 1 EA, 3 Refill(s), Pharmacy: [facility], Smokes 1 pack of cigarettes [...] see Order Comments for use directions, Pharmacy: [facility], Smokes 1 pack of cigarettes [...] pain, # 25 tab(s), 3 Refill(s), Pharmacy: [facility], 181.5, cm, 03/19/24 8:27:00 EST, Height, kg, 03/19/24 8:27:00 EST, Dosing Weight Start Date: 03/24/24 Status: Ordered Medication Dispense Status: Completed Quantity: 25.0 Unit: tab(s) Total Allowed Fills: 4 Fills Dispensed: 0 Start: 11-29-2023 nitroglycerin 0.4 mg sublingual tablet 0.4 mg Dose = 1 tab(s), Sublingual, q5min, PRN for chest pain, # 25 tab(s), 3 Refill(s), Pharmacy: [facility], 183, cm, 09/12/23 7:34:00 EDT, Height, kg, 09/12/23 7:34:00 EDT, Dosing Weight Start Date: 11/29/23 Status: Ordered Start: 12-28-2021 nitroglycerin 0.4 mg sublingual tablet 0.4 mg Dose = 1 tab(s), Sublingual, q5min, PRN for chest pain, # 450 tab(s), 3 Refill(s), Pharmacy: [facility], 182.9, cm, 12/28/21 16:06:00 EST, [...] qDay, # 90 cap(s), 1 Refill(s), Pharmacy: [facility], 182, cm, 09/17/24 9:01:00 EDT, Height, kg, 09/17/24 9:01:00 EDT, Dosing Weight Start Date: 09/17/24 Stop Date: 03/16/25 Status: Ordered Medication Dispense Status: Completed Quantity: 90.0 Unit: cap(s) Total Allowed Fills: 2 Fills Dispensed: 0 Start: 04-21-2024 omeprazole 40 mg oral delayed release capsule Dose : 40 mg = 1 cap(s), Oral, qDay, # 30 cap(s), 3 Refill(s), Pharmacy: [facility], 181.5, cm, 03/19/24 8:27:00 EST, Height, kg, 03/19/24 8:27:00 EST, Dosing Weight Start Date: 04/21/24 Status: Ordered Quantity: 30.0 Unit: cap(s) Repeat number: 4 Start: 12-03-2023 omeprazole 40 mg oral delayed release capsule Dose : 40 mg = 1 cap(s), Oral, qDay, # 30 cap(s), 0 Refill(s), Pharmacy: [facility], 183, cm, 09/12/23 7:34:00 EDT, Height, kg, 09/12/23 7:34:00 EDT, Dosing Weight Start Date: 12/03/23 Status: Ordered Start: 06-02-2021 take 40 mg by mouth once daily Omeprazole Active 40 MG PO DAILY May 22, 2022 12:00am OMEPRAZOLE (PRIL OSEC ORAL) Take by mouth once daily. 0 Active Comment on above: Take by mouth once d aily. TAKE 1 CAPSULE BY [facility] 30 MINUTES BEFORE MORNING MEAL ONCE [...] qDay, # 90 tab(s), 1 Refill(s), Pharmacy: [facility], 182, cm, 09/17/24 9:01:00 EDT, Height, [...] qDay, # 90 tab(s), 1 Refill(s), Pharmacy: [facility], 181.5, cm, 03/19/24 8:27:00 EST, Height, kg, 03/19/24 8:27:00 EST, Dosing Weight Start Date: 03/19/24 Stop Date: 09/15/24 Status: Ordered Quantity: 90.0 Unit: tab(s) Repeat number: 2 Start: 12-03-2023 Potassium Chlo ride (Qcf-Cffe-Lam M20) 20 mEq oral tablet, extended release Dose : 20 mEq = 1 tab(s), Oral, qDay, # 30 tab(s), 0 Refill(s), Pharmacy: [facility], 183, cm, 09/12/23 7:34:00 EDT, [...] qDay, # 90 tab(s), 1 Refill(s), Pharmacy: [facility], 182, cm, 09/17/24 9:01:00 EDT, Height, kg, 09/17/24 9:01:00 EDT, Dosing Weight Start Date: 09/17/24 Status: Ordered Medication Dispense Status: Completed Quantity: 90.0 Unit: tab(s) Total Allowed Fills: 2 Fills Dispensed: 0 Start: 07-25-2024 rosuvastatin 4 0 mg oral tablet Dose : 40 mg = 1 tab(s), Oral, qDay, # 90 tab(s), 0 Refill(s), Pharmacy: [facility], 182, cm, 07/25/24 11:13:00 EDT, Height, kg, 07/25/24 11:13:00 EDT, Dosing Weight Start Date: 07/25/24 Status: Ordered Quantity: 90.0 Unit: tab(s) Repeat number: 1 Start: 03-19-2024 End: 09-15-2024 rosuvastatin 10 mg oral tabl et Dose : 10 mg = 1 tab(s), Oral, qDay, # 90 tab(s), 1 Refill(s), Pharmacy: [facility], 181.5, cm, 03/19/24 8:27:00 EST, Height, kg, 03/19/24 8:27:00 EST, Dosing Weight Start Date: 03/19/24 Stop Date: 09/15/24 Status: Ordered Quantity: 90.0 Unit: tab(s) Repeat number: 2 Start: 05-22-2022 End: 03-10-2024 rosuvastatin 10 mg oral tabl et Dose : 10 mg = 1 tab(s), Oral, qDay, # 90 tab(s), 1 Refill(s), Pharmacy: [facility], 183, cm, 09/12/23 7:34:00 EDT, Height, kg, 09/12/23 7:34:00 EDT, Dosing Weight Start Date: 09/12/23 Stop Date: 03/10/24 Status: Ordered traZODone hydrochloride 50 mg oral tablet (9 sources) Serotonin Reuptake Inhibitor Start: 06-13-2024 traZODone 50 mg oral tablet Dose : 50 mg = 1 tab(s), Oral, qHS, # 30 tab(s), 3 Refill(s), Pharmacy: [facility], 181.5, cm, 03/19/24 8:27:00 EST, Height, kg, 03/19/24 8:27:00 EST, Dosing Weight Start Date: 06/13/24 Status: Ordered Quantity: 30.0 Unit: tab(s) Repeat number: 4 Start: 12-03-2023 traZODone 50 m g oral tablet Dose : 50 mg = 1 tab(s), Oral, qHS, # 30 tab(s), 0 Refill(s), Pharmacy: [facility], 183, cm, 09/12/23 7:34:00 EDT, [...] by mouth every 4 hours as needed. [id number] 200 actuat albuter ol 0.09 mg/actuat metered [...] wheezing, # 540 mL, 1 Refill(s), Pharmacy: [facility], 181.5, cm, 03/19/24 8:27:00 EST, Height, [...] wheezing, # 90 mL, 1 Refill(s), Pharmacy: [facility], 183, cm, 09/12/23 7:34:00 EDT, [...] 22, 2023 2:37pm Start: 01-08-2023 End: 01-22-2023 Lgnymvxayr-Qwvzpdlj-Itpmusqn ol (Breztri Aerosphere) 160-9-4.8 mcg/actuation HFA aerosol [...] 01, 2023 3:00pm take 1 tablet by twice daily buPROPion SR (Wellbutrin SR) 150 [...] tablet (11 sources) Anticholinergic Start: 07-10-2022 End: 11-20-2023 take 20 mg by mouth twice daily [...] qDay, # 90 tab(s), 1 Refill(s), Pharmacy: [facility], 181.5, cm, 03/19/24 8:27:00 EST, Height, kg, 03/19/24 8:27:00 EST, Dosing Weight Start Date: 03/19/24 Stop Date: 09/15/24 Status: Ordered Medication Dispense Status: Completed Quantity: 90.0 Unit: tab(s) Total Allowed Fills: 2 Fills Dispensed: 0 Start: 12-03-2023 hydroCHLOROthi azide 25 mg oral tablet Dose : 25 mg = 1 tab(s), Oral, qDay, # 30 tab(s), 0 Refill(s), Pharmacy: [facility], 183, cm, 09/12/23 7:34:00 EDT, [...] 12/01/23 at 0907, +++ For RR nystatin [id number] unt/ml oral suspension (11 sources) Polyene Antifungal [...] Start: 12-01-2023 End: 12-01-2023 polyethylene glycol 3350 42794 mg powder for oral solution (2 sources) [...] ug by inhal ation once daily Tiotropium [place] (Spiriva Respimat) 2.5 mcg/actuation mist Active 2 INH INHALATION daily January 22, 2023 1:00am administer at approximately the same time(s) each day Start: 08-28-2022 End: 10-05-2022 take 1 puff(s) by inhalation once daily Tiotropium [place] (Spiriva Respimat) 2.5 mcg/actuation mist Discontinued 2 PUFF INHALATION DAILY August 28, 2022 12:00am October 05, 2022 8:45am Start: 08-28-2022 End: 10-05-2022 take 1 puff(s) by inhalation once daily Tiotropium [place] (Spiriva Respimat) 2.5 mcg/actuation mist Discontinued 2 PUFF INHALATION DAILY August 27, 2022 11:00pm October 05, 2022 7:45am Start: 08-28-2022 take 1 puff(s) by in halation once daily Tiotropium [place] (Spiriva Respimat) 2.5 mcg/actuation mist Active 2 [...] disease (20 sources) 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; Translations: [Old myocardial infarction] Onset: 6 Chronic Disorders of lipid metabolism (20 sources) Hyperlipidemia, unspecified; Translations: [Hyperlipidemia] Onset: 7 05-19-2022 Chronic E Codes: Fall (10 sources) Fall; Translations: [Unspecified fall, initial encounter] Onset: 4 12-01-2023 Episodic Esophageal disorders (14 sources) Gastro-esophageal reflux disease without esophagitis; Translations: [Gastroesophageal reflux disease] Onset: 7 05-19-2022 Chronic Esophageal disorders (1 source) Esophageal disorders; Translations: [Gastro-esophageal reflux disease with esophagitis, without bleeding] Onset: 5 Essential hypertension (20 sources) Essential (primary) hypertension; [...] lower limb 06-20-2023 Episodic Other gastrointestinal disorders (1 source) Dysphagia, unspecified; Translations: [Dysphagia, unspecified] Onset: 5 Episodic Other gastrointestinal disorders (2 sources) Constipation, [...] source) Increased body mass index 09-17-2024 Episodic Substance-related disorders (20 sources) Nicotine dependence, cigarettes, uncomplicated; Translations: [Nicotine dependence, unspecified, uncomplicated] Onset: 05-29-2022 Chronic Unclassified (6 sources) Patient encounter [...] 11-20-2016 05-19-2022 Episodic Other aftercare (3 sources) manager government (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) use of 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; Translations: [Encounter for [...] specified postprocedural states] Onset: 07-20-2016 05-24-2022 Episodic Spondylosis; intervertebral disc disorders; other back problems (8 sources) Backache; Translations: [Dorsalgia, unspecified] Onset: 10-02-2014 12-01-2023 Episodic Unclassified (6 sources) Family history of other specified conditions; Translations: [Family history of ischemic heart disease and other diseases of the circulatory system] Onset: 09-19-2016 Episodic Results Test Name Value Interpretation Reference Range Facility EGD Reporton 12-15-2024 EGD Report [facility] Medical Records Department [address] [place] [id number] EGD Report MR#: [id number] Acct: [id number] Name: PARRADONTAE MARVA Rep #: [id number] : 1975 49 From: Calvin Jasso DO PCP: JOEL CANTOR Status:[facility] Patient Name: Dontae Parra Procedure Date: 12/15/2024 7:22 AM Date of : 1975 Age: 49 Procedure: Upper GI endoscopy Indications: Acute post hemorrhagic anemia, Peptic ulcer Providers: Calvin Jasso DO Referring MD: Joel Cantor Medicines: Monitored Anesthesia Care Patient Profile: This is a 49 year old male. Refer to note in patient chart for documentation of history and physical. Patient has symptoms of acute epigastric abdominal pain. Complications: No immediate complications. Procedure: Pre-Anesthesia Assessment: [...] Examination: clear to auscultation. CV Examination: normal. ASA Grade Assessment: II - A patient with mild systemic disease. After reviewing the risks and benefits, the patient was deemed in satisfactory condition to undergo the procedure. The anesthesia plan was to use monitored anesthesia care (MAC). Immediately prior to administration of medications, the patient was re-assessed for adequacy to receive sedatives. The heart rate, respiratory rate, oxygen saturations, blood pressure, adequacy of pulmonary ventilation, and response to care were monitored throughout the procedure. The physical status of the patient was re-assessed after the procedure. After obtaining informed consent, the endoscope was passed under direct vision. Throughout the procedure, the patient's blood pressure, pulse, and oxygen saturations were monitored continuously. The gastroscope was introduced through the mouth, and advanced to the third part of the duodenum. Small bowel enteroscopy was deemed necessary. The upper GI endoscopy was accomplished without difficulty. The patient tolerated the procedure well. Scope In: 7:30:06 AM Scope Out: 7:35:20 AM Total Procedure Duration Time 0 hours 5 minutes 14 seconds Findings: LA Grade A (one or more mucosal breaks less than 5 mm, not extending between tops of 2 mucosal folds) esophagitis with no bleeding was found 38 to 40 cm from the incisors. Biopsies were taken with a cold forceps for histology. Verification of patient identification for the specimen was done. Estimated blood loss was minimal. Patchy mildly erythematous mucosa without bleeding was found in the gastric body. Biopsies were taken with a cold forceps for histology. Biopsies were taken with a cold forceps for Helicobacter pylori testing. No gross lesions were noted in the entire examined duodenum. Impression: - LA Grade A reflux esophagitis with no bleeding. Biopsied. - Erythematous mucosa in the gastric body. Biopsied. - No gross lesions in the entire examined duodenum. Recommendation: - Await pathology results. - Continue present medications. Procedure Code(s): --- Professional --- 31166, Small intestinal endoscopy, enteroscopy beyond second portion of duodenum, not including ileum; with biopsy, single or multiple CPT copyright 2021 [employer]. All rights reserved. The codes documented in this report are preliminary and upon compensation director review may be revised to meet current compliance requirements. Calvin Jasso DO 12/15/2024 7:44:21 AM This report has been signed electronically. Number of Addenda: 0 Note Initiated On: 12/15/2024 7:22 AM 12/15/2444 Date Calvin Jasso DO Cosigner Signature: Date (if indicated) CC: JOEL HERNANDEZ; Calvin Jasso DO Date Dictated: 12/15/2422 Date Transcribed: Fur Stylist: LUIS Signed [facility] Immunohistochemical Stainson 12-15-2024 Immunohistochemical Stains -------- -------- Patient Age/Sex Location Account Attending Physician -------- DELILAHDONTAE MARVA 49/M EN [id number] Calvin Jasso DO -------- Specimen: [id number] Received: 12/15/24 Status: MIKE Forresterlynette Num: [id number] Spec Type: EGD BIOPSY Subm Dr: Calvin Jasso DO HEAD OPERATION: EGD with biopsy PRE-OP DIAGNOSIS: GERD, dysphagia TISSUE SUBMITTED: A- Gastric body biopsy, B- Distal esophagus biopsy -------- MICROSCOPIC DIAGNOSIS A. Gastric body, biopsy: - Oxyntic mucosa with slight chronic inflammation. - IHC negative for H. pylori organisms. B. Distal esophagus, biopsy: - Squamous mucosa with reactive changes. - Columnar mucosa negative for unequivocal goblet cell metaplasia. MICROSCOPIC DESCRIPTION Slides are reviewed. All matched controls reacted appropriately. These tests were developed and their performance characteristics determined by [facility]. They may not have been cleared or approved by the U.S. Food and Drug Administration. The FDA has determined that such clearance or approval is not necessary. The above immunohistochemical markers and/or special???stains have been reviewed by the Pathologist. GROSS DESCRIPTION A. Received in fixative is one container labeled with the patient's name and designated Gastric body biopsy. The specimen consists of four irregular fragments of [place]in[place] tissue that measure 0.1 to 0.5 cm. The specimen is totally submitted in one cassette. B. Received in fixative is one container labeled with the patient's name and designated Distal esophagus biopsy. The specimen consists of four irregular fragments of trin[place] tissue that measure <0.1 to 0.6 cm. Smallest fragment unlikely to survive processing. The specimen is totally submitted in one cassette. VT 12/15/2024 CPT:19802j5,22842 -------- Patient Age/Sex Location Account Attending Physician -------- DONTAE PARRA 49/M EN [id number] Calvin Jasso DO -------- Signed (signature on file) Dr. Roseann Farias MD 12/23/24 0959 -------- [facility] Comment on above: Performed By: #### P [facility] #### [facility] [address] [place], [id number] MR/OP.PROVATon 12-15-2024 MR/OP.PROVAT [facility] Medical Records Department [address] [place] [address] Provation Physician Letter MR#: [id number] Acct: [id number] Name: DONTAE PARRA Rep #: [id number] : 1975 49 From: Calvin Jasso DO PCP: JOEL CANTOR Status:[facility] 12/15/2024 Joel Cantor Re : Upper GI endoscopy procedure for Dontae Parra Dear David This procedure was performed on Sunday, December 15, 2024. My impressions and recommendations are as follows: Impressions : - LA Grade A reflux esophagitis with no bleeding. Biopsied. - Erythematous mucosa in the gastric body. Biopsied. - No gross lesions in the entire examined duodenum. Recommendations : - Await pathology results. - Continue present medications. My findings are described in the full procedure note, which is enclosed. If I can be of further assistance, please feel free to contact me at . Sincerely, Calvin Jasso DO 12/15/2024 7:44:21 AM This report has been signed electronically. 12/15/2444 Date Calvin Luzigndemi Signature: Date (if indicated) CC: JOEL Jasso DO Date Dictated: 12/15/2422 Date Transcribed: Fur Stylist: LUIS Signed [facility] MR/POSTOP.ANEon 12-15-2024 MR/POSTOP.ANE [facility] Medical Records Department [address] [place] [address] Anesthesia Postop Eval I 12/15/24 0746 MR#: [id number] Acct: [id number] Name: DELILAHDONTAECarson DURHAM Rep #: [id number] : 1975 49 From: Mike Melgar PCP: JOEL CANTOR Status:[facility] Y Race: C Location: [place] [address] Anesthesia: Postop Eval I Current Vital Signs Temperature: 97.4 F Pulse Rate: 88 Blood Pressure: 104/71 Respiratory Rate: 14 Pulse Ox: 93 Oxygen Delivery Method: Room Air Assessment Airway patent: Yes Spontaneous unlabored respirations: Yes Mental status: Asleep nausea: No Vomiting: No Anesthesia Complication: No Fluid Hydration Crystalloid volume administer (ml): 400 Total IV fluid infused: 400 Progress Note Anesthesia document: Postop Eval 1 completed: Yes 12/15/24 0747 Date Mike Gillespie Signature: Date CC: Signed [facility] MR/UNCPCRBJ7lc 12-15-2024 MR/POSTOPAN2 [facility] Medical Records Department [address] [place] [address] Anesthesia Postop Eval II 12/15/24 1209 MR#: [id number] Acct: [id number] Name: DONTAE PARRA Rep #: [id number] : 1975 49 From: Rush Lal MD PCP: JOEL CANTOR Status:[facility] Y Race: C Location: EN Anesthesia Postop Eval I Sum Postop Eval Completion status Anesthesia document: Postop Eval 1 completed: Yes Anesthesia Postop Eval I Summary Anesthesia Postop Eval I Summary: Anesthesia Postop Eval I: Assessment Summary Airway patent Yes 12/15/24 07:47 [email or web address] Spontaneous unlabored Yes 12/15/24 07:47 [email or web address] respirations Mental status Asleep 12/15/24 07:47 [email or web address] nausea No 12/15/24 07:47 [email or web address] Vomiting No 12/15/24 07:47 [email or web address] Anesthesia Postop Eval I: Fluid Summary Crystalloid volume administer 400 12/15/24 07:47 [email or web address] (ml) Colloids volume administered ( ml) Blood Product volume administered (ml) Total IV fluid infused 400 12/15/24 07:47 [email or web address] Anesthesia Postop Eval I: Summary Notes Anesthesia Complication No 12/15/24 07:47 [email or web address] Anesthesia Complication Comment: Post-operative progress note Anesthesia: Postop Eval II Evaluation Mental status: Awake and Calm Pain Level: 0 nausea: No Vomiting: No Complications Anesthesia Complication: No 12/15/24 1210 Date Rush Lal MD Cosigner Signature: Date CC: Signed [facility] MR/Magnus 12-12-2024 /[facility] Records Department [address] [place] [address] PAT - Anesthesia 12/12/24 1546 MR#: [id number] Acct: [id number] Name: DONTAE PARRA MARVA Rep #: [id number] : 1975 49 From: Rush Lal MD PCP: JOEL CANTOR Status:[facility] Y Race: C Location: EN Pre-Assessment Diagnosis/Proposed Procedure Planned Operative Procedure(s): EGD Anesthesia History Anesthesia History - patient care technician: Anesthesia History - patient care technician Hx Hospitalization No 12/12/24 09:50 Any Problems [...] take am of surgery PONV PONV - patient care technician: PONV - patient care technician Female No 12/12/24 09:50 HX of Motion Sickness No 12/12/24 09:50 HX of N/V After Surgery No 12/12/24 09:50 Non-Smoker No 12/12/24 09:50 Duration of Surgery greater No 12/12/24 09:50 than 60 minutes Number of Risk Factors PONV Score Height Weight Height Weight: Anesthesia: Height Weight Height 6 ft 10/31/24 05:43 Respiratory Assessment Respiratory Assessment - patient care technician: Respiratory Tract Infection Hx - patient care technician Hx Respiratory Tract Infection No 12/12/24 09:50 STOP Sleep Apnea STOP Sleep Apnea - patient care technician: STOP Sleep Apnea - patient care technician Hx Hypertension Yes: CONTROLLED WITH MED 12/12/24 [...] Tobacco Use History Tobacco Use History - patient care technician: Tobacco Use History - patient care technician Tobacco Use Smoking Status Current some day smoker 12/12/24 09:50 Hx Tobacco Use Yes 12/12/24 09:50 Years Smoking Packs Smoked per Day Smoking Cessation Date was within the last 15 years Hx Smoking Cessation Date Hx Smoking Cessation No 12/12/24 09:50 Counseling Hematologic Medial History Hematologic Hx - patient care technician: 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 [facility] Gastroenterology Visit Repor ton 11-18-2024 Gastroenterology Visit Report [facility] [address] [place] [address] OFFICE VISIT Date of Service: 11/18/24 MR#: [id number] Acct: [id number] Name: DONTAE PARRA Rep #: [id number] : 1975 Provider: BERTO Oquendo Age/Sex: 49/M [place] [facility] Status: Signed Intake Vital Signs 10/31/24 05:43 Height 6 ft Weight: 225 lb BMI 30.5 BP 128/77 H Blood Pressure Location Lt brachial Position Sitting Respiration 18 Pulse 79 Pulse Source Monitor Temp 97.4 F L Pulse Oximetry (%) 95 Oxygen Delivery Method room air Intake Visit Reasons: FU-Constipation Chief Complaint: GERD Manager Corporate Marketing Required: No Accompanied by: Is patient in [...] mg PO DAILY 06/15/22 11/18/24 H istory capsule,ext.hnabaag84 hr multiphase potassium chloride 20 mEq 20 [...] mg PO BID #60 tabs 11/06/23 0 9/30/25 Rx mg tablet,12 hr sustained-release(smo usha deterrent) clopidogrel 75 mg tablet 75 mg PO DAILY #90 tabs 11/08/23 0 11/18/24 Rx prazosin 1 mg capsule 1 mg PO QHS #30 caps 04/22/24 09/ Rx albuterol sulfate 90 mcg/actuation 2 puff [...] mg PO QDAY 10/08/24 11/18/24 Hi story [facility] Medical History Wears dentures Wears [...] failure Hyperlipidemia Atherosclerosis of coronary artery of augustine heart without angina pectoris Chest pain Noncompliance [...] surgery Family (more content not included)... [facility] Spine Cervical (Routine)on 0 11-04-2024 Spine Cervical (Routine) [facility] Imaging Services [address] [place], [place] [address] Spine Cervical (Routine) MR#: [id number] Acct: [id number] Name: DONTAE PARRA Rep #: [id number] : 1975 M 49 From: Manjinder Valdovinos MD PCP: JOEL CANTOR Status: REG CLI Study: Spine Cervical (Routine) Date of Exam: Exam# [id number] Ordering Dr: Macrina Donaldson PROCEDURE: SPINE CERVICAL [...] arthropathy and ligamentum flavum hypertrophy. Reading Location: [facility] CC: JOEL HERNANDEZ; BERTO Austin Fur Stylist: Signed [facility] Pulmonary Visit Reporton Pulmonary Visit Report [facility] of [address] [place] [address] OFFICE VISIT Date of Service: 10/31/24 MR#: [id number] Acct: [id number] Name: DONTAE PARRA Rep #: [id number] : 1975 Provider: Delores Pablo NP Age/Sex: 49/M Location[place] [facility] Status: Signed Assessment and Plan [...] some re (more content not included)... [facility] .GFRon 10-28-2024 Estimated Glomerular Filtration Rate 86 ml/min/1.73sqm Normal [facility] Comment on above: Result Comment: [...] #### G FR, LIPID, CMP, MG #### [facility] [address] [place], [place] [address] #### TESTO #### [facility] [address] [place] [address] CMPon 10-28-2024 Albumin Level 3.8 G/dL Normal 3.5-5.0 [facility] Comment on above: Performed By: #### G FR, LIPID, CMP, MG #### [place] [address] #### TESTO #### [place] [address] Albumin/Globulin [Mass ratio] 1.1 {ratio} Normal 1.1-2.5 [facility] Comment on above: Performed By: #### G FR, LIPID, CMP, MG #### [place] [address] #### TESTO #### [place] [address] ALP [Catalytic activity/Vol] 119 U/L Normal 40-135 [facility] Comment on above: Performed By: #### G FR, LIPID, CMP, MG #### [place] [address] #### TESTO #### [place] [address] ALT [Catalytic activity/Vol] 25 U/L Normal 16-63 [facility] Comment on above: Performed By: #### G FR, LIPID, CMP, MG #### [place] [address] #### TESTO #### [place] [address] AST [Catalytic activity/Vol] 14 U/L Normal 10-40 [facility] Comment on above: Performed By: #### G FR, LIPID, CMP, MG #### [place] [address] #### TESTO #### [place] [id number] Bili Total 0.6 mg/dL Normal 0.2-1.0 [facility] Comment on above: Result Comment: Use of this assay is not recommended for patients undergoing treatment with eltrombopag due to the potential for falsely elevated results. Performed By: #### G FR, LIPID, CMP, MG #### [place] [address] #### TESTO #### [place] [address] BUN/Creatinine Ratio 8 ratio Normal 7-27 [facility] Comment on above: Performed By: #### G FR, LIPID, CMP, MG #### [place] [address] #### TESTO #### [place] [address] Calcium [Mass/Vol] 9.7 mg/dL Normal 8.4-10.2 [facility] Comment on above: Performed By: #### G FR, LIPID, CMP, MG #### [place] [address] #### TESTO #### [place] [address] Chloride [Moles/Vol] 105 mmol/L Normal 98-107 [facility] Comment on above: Performed By: #### G FR, LIPID, CMP, MG #### [place] [address] #### TESTO #### [place] [address] CO2 [Moles/Vol] 30 mmol/L High 22-29 [facility] Comment on above: Performed By: #### G FR, LIPID, CMP, MG #### [place] [address] #### TESTO #### [place] [address] Creatinine [Mass/Vol] 1.06 mg/dL Normal 0.67-1.17 [facility] Comment on above: Performed By: #### G FR, LIPID, CMP, MG #### [place] [address] #### TESTO #### [place] [address] Electrolyte Balance 8.0 mEq/L Normal 4.0-15.0 [facility] Comment on above: Performed By: #### G FR, LIPID, CMP, MG #### [address] [address] #### TESTO #### [address] [address] Globulin 3.6 G/dL Normal 2.7-4.4 [facility] Comment on above: Performed By: #### G FR, LIPID, CMP, MG #### [address] [address] #### TESTO #### [address] [address] Glucose [Mass/Vol] 119 mg/dL High 70-105 [facility] Comment on above: Performed By: #### G FR, LIPID, CMP, MG #### [place] [address] #### TESTO #### [address] [address] Potassium [Moles/Vol] 4.3 mmol/L Normal 3.5-5.1 [facility] Comment on above: Performed By: #### G FR, LIPID, CMP, MG #### [address] [address] #### TESTO #### [address] [address] Sodium [Moles/Vol] 143 mmol/L Normal 136-145 [facility] Comment on above: Performed By: #### G FR, LIPID, CMP, MG #### [address] [address] #### TESTO #### [address] [address] Total Protein 7.4 G/dL Normal 6.4-8.2 [facility] Comment on above: Performed By: #### G FR, LIPID, CMP, MG #### [place] [address] #### TESTO #### [facility] [address] [place] [address] Urea nitrogen [Mass/Vol] 8 mg/dL Normal 7-18 [facility] Comment on above: Performed By: #### G FR, LIPID, CMP, MG #### [facility] [address] [place], [place] [address] #### TESTO #### [place] [address] [address] [place] [address] LABORATORYOrdered By: SYSTEM SYSTEM on 10-28-2024 Albumin [...] ormal Reference Ranges for Females: Female Premenopause Jni03-111.01-47.94 ng/dL Female Postmenopause Kam71-04<7.00-45.62 ng/dL Urea nitrogen [Mass/Vol] 8 mg/dL Normal [...] 10-28-2024 Cholesterol [Mass/Vol] 252 mg/dL High 0-200 [facility] Comment on above: Result Comment: Chol esterol Reference Interval: Less than 200 Desirable 200-239 Borderline high risk 240 and above High risk Performed By: #### G FR, LIPID, CMP, MG #### [place] [address] #### TESTO #### [address] [address] Cholesterol in HDL [Mass/Vol] 30 mg/dL Low 40-60 [facility] Comment on above: Performed By: #### G FR, LIPID, CMP, MG #### [address] [address] #### TESTO #### [address] [address] Cholesterol in LDL [Mass/Vol] 159 mg/dL High 0-130 [facility] Comment on above: Performed By: #### G FR, LIPID, CMP, MG #### [address] [address] #### TESTO #### [address] [address] Triglyceride [Mass/Vol] 317 mg/dL High 0-150 [facility] Comment on above: Result Comment: Trig lyceride Reference Interval: Less than 150 Normal 150-199 Borderline high risk 200-499 High risk 500 or higher Very high risk Performed By: #### G FR, LIPID, CMP, MG #### [place] [address] #### TESTO #### [address] [address] MGon 10-28-2024 Magnesium [Mass/Vol] 2.0 mg/dL Normal 1.8-2.4 [facility] Comment on above: Performed By: #### G FR, LIPID, CMP, MG #### [place] [address] [place], [place] [address] #### TESTO #### [address] [address] TESTOon 10-28-2024 Testosterone Lvl 440.88 ng/dL Normal 86.98-780. 10 [facility] Comment on above: Result Comment: Norm al Reference Ranges for Females: Female Premenopause Age 21-60 9.01-47.94 ng/dL Female Postmenopause Age 45-89 <7.00-45.62 ng/dL Performed By: #### G FR, LIPID, CMP, MG #### [address] [address] #### TESTO #### [address] [address] Office Visit Reporton 2024 Office Visit Report [address] [address] OFFICE VISIT Date of Service: 10/08/24 MR#: [id number] Acct: [id number] Patient: DONTAE PARRA Rep #: [id number] : 1975 Provider: JOEL Fuchs Age/Sex: 49/M [place] [facility] Status: Signed Intake Vital Signs 09/29/24 08:34 [...] , Injection administration Chief 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: lumbar spine Manager Corporate Marketing Required: No Accompanied by: Self Allergies isosorbide [...] mg PO DAILY 06/15/22 10/08/24 H istory capsule,ext.awcchoa80 hr multiphase potassium chloride 20 mEq 20 [...] tablet 40 mg PO QDAY 10/08/24 10/08/24 [facility] Office Procedures Asthma Injection Procedure: Details:: Patient [...] mg subcutaneous solution Performing Provider: Frances Fuchs CONTAMINATED LAND CONSULTANT, CONTAMINATED LAND CONSULTANT-C Performing Location: [facility] Administered by: Raina Briggs LPN on 10/08/24 09:28 Dose Route Admin Location Dispensed Lot Number Expiration Date [facility] Man ufacturer 100 mg subcut Right arm 1 ea AS6S 11/18/26 9510-2745-99 GERALD NDIAYE Assessment and Plan Assessment and Plan Orders: Orders Nucala Injection Today J45.50 - Severe persistent asthma, uncomplicated 10/08/24 1544 Date (more content not included)... [facility] Cerv Spine 4 or 5 Viewson Cerv Spine [address] [facility] Imaging Services [address] [place], [place] [id number] Cerv Spine 4 or 5 Views MR#: [id number] Acct: [id number] Name: DONTAE PARRA Rep #: [id number] : 1975 M 49 From: Joseph Morillo MD PCP: JOEL CANTOR Status: DEP AMB Study: Cerv Spine 4 or 5 Views Date of Exam: 09/29/24 Exam# [id number] Ordering Dr: Macrina Donaldson PROCEDURE: CERV SPINE [...] or malalignment. Mild spondylotic changes. Reading Location: [facility] CC: JOEL HERNANDEZ; BERTO [place] Fur Stylist: Signed [facility] L/S Spine Min 4 Viewson 09-19 L/S Spine Min 4 Views [facility] Imaging Services [address] [place] [address] L/S Spine Min 4 Views MR#: [id number] Acct: [id number] Name: DONTAE PARRA Rep #: [id number] : 1975 M 49 From: Jenifer Padgett PCP: JOEL CANTOR Status: DEP AMB Study: L/S Spine Min 4 Views Date of Exam: 09/29/24 Exam# [id number] Ordering Dr: Macrina Donaldson PROCEDURE: L/S SPINE [...] Location: [facility] CC: JOEL HERNANDEZ; BERTO Austin Fur Stylist: Signed [facility] Orthopedic Visit Reporton Orthopedic Visit Report [facility] [address] [place] [address] OFFICE VISIT Date of Service: 09/29/24 MR#: [id number] Acct: [id number] Name: DONTAE PARRA Rep #: [id number] : 1975 Provider: BERTO Austin Age/Sex: 49/M Location: [facility] Status: Signed Intake Vital Signs 09/05/24 05:07 [...] mg PO BID #60 tabs 09/17/23 0 8/11/25 Rx release,12 hr bupropion HCl (smoking deter) [...] 25 mcg/actuation powdr for inhalation (Anoro Ellipta) [facility] Medical History Wears dentures Wears [...] failure Hyperlipidemia Atherosclerosis of coronary artery of augustine heart without angina pectoris Chest pain Noncompliance with medications Essential hypertension Stroke Pneumonia GERD (gastroesophageal reflux disease) COPD (chronic obstructive pulmonary disease) Depression Anxiety Asthma Emphysema, unspecified CAD (coronary artery disease) Encounter for 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 [facility] Cardiology Visit Reporton Cardiology Visit Report [facility] [address] [place] [address] OFFICE VISIT Date of Service: 09/25/24 MR#: [id number] Acct: [id number] Name: DONTAE PARRA Rep #: [id number] : 1975 Provider: JOEL delcid Age/Sex: 49/M Location: [facility] Status: Signed HPI HPI History of [...] Source NIBP Intake Visit Reasons: 6 M Manager Corporate Marketing Required: No Is patient in pain?: No [...] mg PO DAILY 06/15/22 09/25/24 H istory capsule,ext.pchhmec46 hr multiphase potassium chloride 20 mEq 20 [...] you fallen in the past year?: Yes [facility] Medical History Wears dentures Wears glasses Arthritis High cholesterol Injury of head and neck Injury of back History of IBS Gastric reflux Smoker CPAP (continuous positive airway pressure) dependence Sleep apnea On home oxygen therapy Emphysema, unspecified (more content not included)... [facility] Pulmonary Visit Reporton Pulmonary Visit Report [facility] [place] [address] [place] [address] OFFICE VISIT Date of Service: 09/05/24 MR#: [id number] Acct: [id number] Name: DONTAE PARRA Rep #: [id number] : 1975 Provider: Delores Pablo NP Age/Sex: 49/M [place] [facility] Status: Signed Assessment and Plan [...] Q12H 6 (more content not included)... [facility] Colonoscopy Reporton 025 Colonoscopy Report [facility] Medical Records Department [address] [place] [address] Colonoscopy Report MR#: [id number] Acct: [id number] Name: DONTAE PARRA Rep #: [id number] : 1975 49 From: Calvin Jasso DO PCP: JOEL CANTOR Status:[facility] [facility] Patient Name: Dontae Parra Procedure Date: 09/04/2024 [...] for surveillance. Procedure Code(s): --- Professional --- 94753, Colonoscopy, flexible; with biopsy, single or multiple CPT copyright 2021 [employer]. All rights reserved. The codes documented in this report are preliminary and upon compensation director review may be revised to meet current compliance requirements. Calvin Jasso DO 09/04/2024 7:28:35 AM This report has been signed electronically. Number of Addenda: 0 Note Initiated On: 09/04/2024 6:59 AM 09/04/24728 Date Calvin Jasso DO Cosigner Signature: Date (if indicated) CC: CONTAMINATED LAND CONSULTANTGustavo Jasso DO Date Dictated: 09/04/2459 Date Transcribed: Fur Stylist: LUIS Signed [facility] MR/POSTOP.[facility] 09-04-2024 MR/POSTOP.[facility] Medical Records Department [address] [place] [address] Anesthesia Postop Eval I 09/04/24729 MR#: [id number] Acct: [id number] Name: DONTAE PARRA Rep #: [id number] : 1975 49 From: Mike Melgar PCP: JOEL CANTOR Status:REG SDC Y Race: C Location: [place] [address] Anesthesia: Postop Eval I Current Vital Signs [...] Anesthesia document: Postop Eval 1 completed: Yes 07/731 Mike Gillespie Signature: Date CC: Signed [facility] MR/[id number] 09-04-2024 MR/POSTOPAN2 [facility] Medical Records Department [address] [place] [address] Anesthesia Postop Eval II 09/04/24951 MR#: [id number] Acct: [id number] Name: DONTAE PARRA Rep #: [id number] : 1975 49 From: Brian Griffiths MD PCP: JOEL CANTOR Status:[facility] Y Race: C Location: EN Anesthesia [...] Level: 1 nausea: No Vomiting: No 09/04/24951 Brian Gillespie Signature: Date CC: Signed [facility] Surgery Specimen Level Ben 09-04-2024 Surgery Specimen Level IV ------- -------- Patient Age/Sex Location Account Attending Physician -------- DONTAE PARRA 49/M EN [id number] Calvin Jasso DO -------- Specimen: [id number] Received: 09/04/24 Status: MIKE Tomas Num: [id number] Spec Type: COLON BX Subm Dr: Calvin [...] 0.3 cm. Entirely submitted in 1 cassette. VT 09/04/2024 CPT: 17877 -------- Patient Age/Sex Location Account Attending Physician -------- DONTAE PARRA 49/M EN [id number] Calvin Jasso DO -------- Signed (signature on file) Dr. Roseann Farias MD 09/05/24 1556 -------- [facility] Comment on above: Performed By: #### P SUIV ####[facility] [address] [place], [address] MR/PAT.SNEHAon 09-02-2024 MR/PAT.SNEHA [facility] Medical Records Department [address] [place] [address] PAT - Anesthesia 09/02/24 1704 MR#: [id number] Acct: [id number] Name: DONTAE PARRA Rep #: [id number] : 1975 49 From: Rush Lal MD PCP: JOEL CANTOR Status:PRE [facility] Y Race: C Location: EN Pre-Assessment Diagnosis/Proposed Procedure Planned Operative Procedure(s): COLONOSCOPY Anesthesia History Anesthesia History - patient care technician: Anesthesia History - patient care technician Hx Hospitalization No 09/02/24 09:31 Any Problems [...] take am of surgery PONV PONV - patient care technician: PONV - patient care technician Female No 09/02/24 09:31 HX of Motion Sickness No 09/02/24 09:31 HX of N/V After Surgery No 09/02/24 09:31 Non-Smoker No 09/02/24 09:31 Duration of Surgery greater No 09/02/24 09:31 than 60 minutes Number of Risk Factors PONV Score Height Weight Height Weight: Anesthesia: Height Weight Height 6 ft 04/11/24 06:09 Respiratory Assessment Respiratory Assessment - patient care technician: Respiratory Tract Infection Hx - patient care technician Hx Respiratory Tract Infection No 09/02/24 09:31 STOP Sleep Apnea STOP Sleep 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 - patient care technician: STOP Sleep 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 - patient care technician Hx Hypertension Yes 09/02/24 09:31 Hx Sleep [...] Tobacco Use History Tobacco Use History - patient care technician: Tobacco Use History - patient care technician Tobacco Use Smoking Status Current some day smoker 09/02/24 09:31 Hx Tobacco Use Yes 09/02/24 09:31 Years Smoking Packs Smoked per Day Smoking Cessation Date was within the last 15 years Hx Smoking Cessation Date Hx Smoking Cessation No 09/02/24 09:31 Counseling Hematologic Medial History Hematologic Hx - patient care technician: 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 Specify any problems Hx of Preganancy in last 3 N/A 09/02/24 09:31 Months Nurse Filling Out Transfusion [facility] 09/02/24 09:31 Questions: Date: 09/02/24 09/02/24 09:31 Time: 09:38 09/02/24 09:31 Patient unable to answer at this time (ie. confused, unrespo /Reproductio n History /Reproductiv e History - patient care technician: /Reproductiv e Hx- patient care technician Hx Now No 09/02/24 09:31 Gestational Age (in weeks): EDC: Hx Hx Para Hx Section SAB No 09/02/24 09:31 [facility] Medical History (Updated 09/02/24 @ 09:38 by [...] failure Hyperlipidemia Atherosclerosis of coronary artery of augustine heart without angina pectoris Chest pain Noncompliance with medications Essential hypertens (more content not included)... [facility] XR CHEST 2 VIEWSon XR CHEST 2 [...] 8:20:59 AM Ordering Provider: MICHELLE MOORE Normal [facility] .Auto Diffon 07-28-2024 Basophil, Absolute 0.0 10 3/mcL Normal 0.0-0.3 [facility] Comment on above: Performed By: #### C MP, CRP, CBC, ANEU, GFR, ADIFF ####[place] [address] [place], [place] [address] Basophils/100 WBC (Bld) 0.1 % Normal 0.0-2.5 [facility] Comment on above: Performed By: #### C MP, CRP, CBC, ANEU, GFR, ADIFF ####[place] [address] [place], [place] [address] Eosinophil, Absolute 0.0 10 3/mcL Normal 0.0-0.7 [facility] Comment on above: Performed By: #### C MP, CRP, CBC, ANEU, GFR, ADIFF ####[place] [address] [place], [place] [address] Eosinophils/100 WBC (Bld) 0.1 % Normal 0.0-6.0 [facility] Comment on above: Performed By: #### C MP, CRP, CBC, ANEU, GFR, ADIFF ####[place] [address] [place], [place] [address] Lymphocyte, Absolute 2.4 10 3/mcL Normal 0.9-4.3 [facility] Comment on above: Performed By: #### C MP, CRP, CBC, ANEU, GFR, ADIFF ####[address] [address] Lymphocytes/100 WBC (Bld) 20.4 % Normal 20.0-40.0 [facility] Comment on above: Performed By: #### C MP, CRP, CBC, ANEU, GFR, ADIFF ####[address] [address] Monocyte, Absolute 1.0 10 3/mcL Normal 0.1-1.4 [facility] Comment on above: Performed By: #### C MP, CRP, CBC, ANEU, GFR, ADIFF ####[address] [address] Monocytes/100 WBC (Bld) 8.6 % Normal 2.0-13.0 [facility] Comment on above: Performed By: #### C MP, CRP, CBC, ANEU, GFR, ADIFF ####[place] [address] [address] Neutrophils/100 WBC (Bld) 70.8 % Normal 50.0-75.0 [facility] Comment on above: Performed By: #### C MP, CRP, CBC, ANEU, GFR, ADIFF ####[place] [address] [place], [place] [address] .GFRon 07-28-2024 Estimated Glomerular Filtration Rate 73 ml/min/1.73sqm Normal [facility] Comment on above: Result Comment: [...] C MP, CRP, CBC, ANEU, GFR, ADIFF ####[place] [address] [place], [place] [address] .NEUABSon 07-28-2024 Neutrophil, Absolute 8.5 10 3/mcL High 2.3-8.1 [facility] Comment on above: Performed By: #### C MP, CRP, CBC, ANEU, GFR, ADIFF ####[place] [address] [place], [place] [address] CBCon 07-28-2024 Erythrocyte distribution width (RBC) [Ratio] 13.5 % Normal 11.5-15.5 [facility] Comment on above: Performed By: #### C MP, CRP, CBC, ANEU, GFR, ADIFF ####[place] [address] [place], [place] [address] Hematocrit (Bld) [Volume fraction] 42.6 % Normal 40.0-52.0 [facility] Comment on above: Performed By: #### C MP, CRP, CBC, ANEU, GFR, ADIFF ####[place] [address] [place], [place] [address] Hgb 14.7 G/dL Normal 13.0-17.5 [facility] Comment on above: Performed By: #### C MP, CRP, CBC, ANEU, GFR, ADIFF ####[place] [address] [place], [place] [address] MCH (RBC) [Entitic mass] 30.9 pg Normal 27.0-33.0 [facility] Comment on above: Performed By: #### C MP, CRP, CBC, ANEU, GFR, ADIFF ####[address] [address] [place], [place] [address] MCHC 34.5 G/dL Normal 32.0-36.0 [facility] Comment on above: Performed By: #### C MP, CRP, CBC, ANEU, GFR, ADIFF ####[address] [address] [place], [place] [address] MCV (RBC) [Entitic vol] 89.6 fL Normal 81.0-100.0 [facility] Comment on above: Performed By: #### C MP, CRP, CBC, ANEU, GFR, ADIFF ####[address] [address] [place], [place] [address] Platelet 341 10 3/mcL Normal 150-450 [facility] Comment on above: Performed By: #### C MP, CRP, CBC, ANEU, GFR, ADIFF ####[place] [address] [place], [place] [address] Platelet mean volume (Bld) [Entitic vol] 6.3 fL Low 6.4-10.5 [facility] Comment on above: Performed By: #### C MP, CRP, CBC, ANEU, GFR, ADIFF ####[place] [address] [place], [place] [address] RBC 4.76 10 6/mcL Normal 4.50-6.00 [facility] Comment on above: Performed By: #### C MP, CRP, CBC, ANEU, GFR, ADIFF ####[place] [address] [place], [place] [address] WBC 12.0 10 3/mcL High 4.5-10.8 [facility] Comment on above: Performed By: #### C MP, CRP, CBC, ANEU, GFR, ADIFF ####[place] [address] [place], [place] [address] CMPon 07-28-2024 Albumin Level 3.7 G/dL Normal 3.5-5.0 [facility] Comment on above: Performed By: #### C MP, CRP, CBC, ANEU, GFR, ADIFF ####[address] [address] Albumin/Globulin [Mass ratio] 0.9 {ratio} Low 1.1-2.5 [facility] Comment on above: Performed By: #### C MP, CRP, CBC, ANEU, GFR, ADIFF ####[address] [address] ALP [Catalytic activity/Vol] 122 U/L Normal 40-135 [facility] Comment on above: Performed By: #### C MP, CRP, CBC, ANEU, GFR, ADIFF ####[place] [address] [address] ALT [Catalytic activity/Vol] 21 U/L Normal 16-63 [facility] Comment on above: Performed By: #### C MP, CRP, CBC, ANEU, GFR, ADIFF ####[address] [address] AST [Catalytic activity/Vol] 13 U/L Normal 10-40 [facility] Comment on above: Performed By: #### C MP, CRP, CBC, ANEU, GFR, ADIFF ####[place] [address] [address] Bili Total 0.6 mg/dL Normal 0.2-1.0 [facility] Comment on above: Result Comment: Use of this assay is not recommended for patients undergoing treatment with eltrombopag due to the potential for falsely elevated results. Performed By: #### C MP, CRP, CBC, ANEU, GFR, ADIFF ####[address] [address] BUN/Creatinine Ratio 12 ratio Normal 7-27 [facility] Comment on above: Performed By: #### C MP, CRP, CBC, ANEU, GFR, ADIFF ####[place] [address] [address] Calcium [Mass/Vol] 9.8 mg/dL Normal 8.4-10.2 [facility] Comment on above: Performed By: #### C MP, CRP, CBC, ANEU, GFR, ADIFF ####[place] [address] [address] Chloride [Moles/Vol] 103 mmol/L Normal 98-107 [facility] Comment on above: Performed By: #### C MP, CRP, CBC, ANEU, GFR, ADIFF ####[address] [address] [place], [place] [address] CO2 [Moles/Vol] 25 mmol/L Normal 22-29 [facility] Comment on above: Performed By: #### C MP, CRP, CBC, ANEU, GFR, ADIFF ####[address] [address] [address] Creatinine [Mass/Vol] 1.21 mg/dL High 0.67-1.17 [facility] Comment on above: Performed By: #### C MP, CRP, CBC, ANEU, GFR, ADIFF ####[address] [address] [place], [place] [address] Electrolyte Balance 12.0 mEq/L Normal 4.0-15.0 [facility] Comment on above: Performed By: #### C MP, CRP, CBC, ANEU, GFR, ADIFF ####[place] [address] [address] Globulin 4.0 G/dL Normal 2.7-4.4 [facility] Comment on above: Performed By: #### C MP, CRP, CBC, ANEU, GFR, ADIFF ####[address] [address] Glucose [Mass/Vol] 96 mg/dL Normal 70-105 [facility] Comment on above: Performed By: #### C MP, CRP, CBC, ANEU, GFR, ADIFF ####[place] [address] [place], [place] [address] Potassium [Moles/Vol] 4.2 mmol/L Normal 3.5-5.1 [facility] Comment on above: Performed By: #### C MP, CRP, CBC, ANEU, GFR, ADIFF ####[place] [place], [place] [address] Sodium [Moles/Vol] 140 mmol/L Normal 136-145 [facility] Comment on above: Performed By: #### C MP, CRP, CBC, ANEU, GFR, ADIFF ####[place] [address] [place] [address] Total Protein 7.7 G/dL Normal 6.4-8.2 [facility] Comment on above: Performed By: #### C MP, CRP, CBC, ANEU, GFR, ADIFF ####[place] [address] Urea nitrogen [Mass/Vol] 14 mg/dL Normal 7-18 [facility] Comment on above: Performed By: #### C MP, CRP, CBC, ANEU, GFR, ADIFF ####[address] [address] CRPon 07-28-2024 C-Reactive Protein 3.3 mg/dL High 0.0-0.3 [facility] Comment on above: Performed By: #### C MP, CRP, CBC, ANEU, GFR, ADIFF ####[address] [address] LABORATORYOrdered By: SYSTEM SYSTEM on 07-28-2024 Albumin [...] 07/25/2024 2:32:39 PM Ordering Provider: JEANNIE Batista [facility] Gastroenterology Visit Repor [facility] 06-27-2024 Gastroenterology Visit Report [facility] Gastroenterology [address] [place] [address] OFFICE VISIT Date of Service: 06/27/24 MR#: [id number] Acct: [id number] Name: DONTAE PARRA Rep #: [id number] : 1975 Provider: JOEL vega Age/Sex: 48/M [place] [facility] Status: Signed Intake Vital Signs 04/11/24 [...] mg PO DAILY 06/15/22 06/26/24 H istory capsule,ext. hr multiphase montelukast 10 [...] failure Hyperlipidemia Atherosclerosis of coronary artery of augustine heart without angina pectoris Chest pain Noncompliance [...] 06/27/24 @ (more content not included)... Normal [facility] .Auto Diffon 06-19-2024 Basophil, Absolute 0.0 10 3/mcL Normal 0.0-0.3 [facility] Comment on above: Performed By: #### C BC ANEU, ADIFF ####[address] [address] [place], [place] [address] Lymphocyte, Absolute 2.8 10 3/mcL Normal 0.9-4.3 [facility] Comment on above: Performed By: #### C BC, ANEU, ADIFF ####[address] [place], [place] [address] Monocyte, Absolute 0.6 10 3/mcL Normal 0.1-1.4 [facility] Comment on above: Performed By: #### C BC, ANEU, ADIFF ####[address] [address] [place], [place] [address] .Auto DiffOrdered By: SYSTEM SYSTEM on 06-19-2024 Basophils/100 WBC (Bld) 0.2 % Normal 0.0-2.5 [facility] Comment on above: Performed By: #### C BC, ANEU, ADIFF ####[address] [place], [place] [address] Eosinophil, Absolute 0.0 103/mcL Normal 0.0-0.7 [facility] Comment on above: Performed By: #### C BC, ANEU, ADIFF ####[address] [place], [place] [address] Eosinophils/100 WBC (Bld) 0.3 % Normal 0.0-6.0 [facility] Comment on above: Performed By: #### C BC ANEU, ADIFF ####[address] [place], [place] [address] Lymphocytes/100 WBC (Bld) 27.2 % Normal 20.0-40.0 [facility] Comment on above: Performed By: #### C BC ANEU, ADIFF ####[address] [address] Monocytes/100 WBC (Bld) 6.2 % Normal 2.0-13.0 [facility] Comment on above: Performed By: #### C BC ANEU, ADIFF ####[address] [address] Neutrophils/100 WBC (Bld) 66.1 % Normal 50.0-75.0 [facility] Comment on above: Performed By: #### C BCBRAXTON, ADIFF ####[address] [address] .NEUABSon 06-19-2024 Neutrophil, Absolute 6.9 10 3/mcL Normal 2.3-8.1 [facility] Comment on above: Performed By: #### C BCBRAXTON, ADIFF ####[address] [address] CBCOrdered By: SYSTEM SYSTEM on 06-19-2024 Erythrocyte distribution width (RBC) [Ratio] 14.1 % Normal 11.5-15.5 [facility] Comment on above: Performed By: #### C BC ANEU, ADIFF #### [address] [address] [address] Hematocrit (Bld) [Volume fraction] 44.3 % Normal 40.0-52.0 [facility] Comment on above: Performed By: #### C BC ANEU, ADIFF #### [place] [address] [address] MCH (RBC) [Entitic mass] 31.1 pg Normal 27.0-33.0 [facility] Comment on above: Performed By: #### C BC ANEU, ADIFF #### [address] [address] MCHC 34.7 G/dL Normal 32.0-36.0 [facility] Comment on above: Performed By: #### C BRAXTON GAVIRIA, ADIFF #### [address] [address] MCV (RBC) [Entitic vol] 89.6 fL Normal 81.0-100.0 [facility] Comment on above: Performed By: #### C BRAXTON GAVIRIA, ADIFF #### [address] [address] Platelet mean volume (Bld) [Entitic vol] 6.3 fL Low 6.4-10.5 [facility] Comment on above: Performed By: #### C BRAXTON GAVIRIA ADIFF #### [address] [address] CBCon 06-19-2024 Hgb 15.4 G/dL Normal 13.0-17.5 [facility] Comment on above: Performed By: #### C BRAXTON GAVIRIA, ADIFF #### [address] [address] Platelet 315 10 3/mcL Normal 150-450 [facility] Comment on above: Performed By: #### C BRAXTON GAVIRIA, ADIFF #### [address] [address] RBC 4.94 10 6/mcL Normal 4.50-6.00 [facility] Comment on above: Performed By: #### C BRAXTON GAVIRIA, ADIFF #### [address] [address] WBC 10.4 10 3/mcL Normal 4.5-10.8 [facility] Comment on above: Performed By: #### BRAXTON GRAY, ADIFF #### [address] [address] LABORATORYOrdered By: SYSTEM SYSTEM on 06-19-2024 Basophils [...] Estimated Glomerular Filtration Rate 84 ml/min/1.73sqm Normal [facility] Comment on above: Result Comment: [...] Performed By: #### C MP, GFR ####[address] [place], [place] [address] CMPon 06-18-2024 Albumin Level 4.1 G/dL Normal 3.5-5.0 [facility] Comment on above: Performed By: #### C MP, GFR ####[address] [place], [place] [address] Albumin/Globulin [Mass ratio] 1.1 {ratio} Normal 1.1-2.5 [facility] Comment on above: Performed By: #### C MP, GFR ####[address] [place], [place] [address] ALP [Catalytic activity/Vol] 118 U/L Normal 40-135 [facility] Comment on above: Performed By: #### C MP, GFR ####[address] [place], [place] [address] ALT [Catalytic activity/Vol] 35 U/L Normal 16-63 [facility] Comment on above: Performed By: #### C MP, GFR ####[address] [place], [place] [address] AST [Catalytic activity/Vol] 17 U/L Normal 10-40 [facility] Comment on above: Performed By: #### C MP, GFR ####[address] [place], [place] [address] Bili Total 0.9 mg/dL Normal 0.2-1.0 [facility] Comment on above: Result Comment: Use of this assay is not recommended for patients undergoing treatment with eltrombopag due to the potential for falsely elevated results. Performed By: #### C MP, GFR ####[address] [place], [place] [address] BUN/Creatinine Ratio 13 ratio Normal 7-27 [facility] Comment on above: Performed By: #### C MP, GFR ####[address] [place], [place] [address] Calcium [Mass/Vol] 9.8 mg/dL Normal 8.4-10.2 [facility] Comment on above: Performed By: #### C MP, GFR ####[address] [place], [place] [address] Chloride [Moles/Vol] 101 mmol/L Normal 98-107 [facility] Comment on above: Performed By: #### C MP, GFR ####[address] [place], [place] [address] CO2 [Moles/Vol] 28 mmol/L Normal 22-29 [facility] Comment on above: Performed By: #### C MP, GFR ####[address] [place], [place] [address] Creatinine [Mass/Vol] 1.08 mg/dL Normal 0.67-1.17 [facility] Comment on above: Performed By: #### C MP, GFR ####[address] [place], [place] [address] Electrolyte Balance 8.0 mEq/L Normal 4.0-15.0 [facility] Comment on above: Performed By: #### C MP, GFR ####[address] [place], [place] [address] Globulin 3.6 G/dL Normal 2.7-4.4 [facility] Comment on above: Performed By: #### C MP, GFR ####[address] [place], [place] [address] Glucose [Mass/Vol] 100 mg/dL Normal 70-105 [facility] Comment on above: Performed By: #### C MP, GFR ####[address] [place], [place] [address] Potassium [Moles/Vol] 3.8 mmol/L Normal 3.5-5.1 [facility] Comment on above: Performed By: #### C MP, GFR ####[address] [place], [place] [address] Sodium [Moles/Vol] 137 mmol/L Normal 136-145 [facility] Comment on above: Performed By: #### C MP, GFR ####[address] [place], [place] [address] Total Protein 7.7 G/dL Normal 6.4-8.2 [facility] Comment on above: Performed By: #### C MP, GFR ####[address] [place], [place] [address] Urea nitrogen [Mass/Vol] 14 mg/dL Normal 7-18 [facility] Comment on above: Performed By: #### C MP, GFR ####[address] [place], [place] [address] CT ABD/PELVIS W/ IV CONTRAST ONLYon 06-18-2024 [...] 06/18/2024 6:15:42 PM Ordering Provider: JEANNIE Batista [facility] LABORATORYOrdered By: SYSTEM SYSTEM on [...] ADM SS Lipid Profileon 05-26-2024 TRIG Normal [facility] Comment on above: Result Comment: PT L EFT COMING BACK ANOTHER DAY The drugs N-Acetylcysteine and Metamizole may falsely depress this assay. Performed By: #### L 500.4100, L500.3400 #### [facility] [address] [place], [address] CHOL Normal <=200 [facility] Comment on above: Result Comment: PT L EFT COMING BACK ANOTHER DAY Performed By: #### L 500.4100, L500.3400 #### [facility] [address] [place], [address] CHOL:HDL Normal [facility] Comment on above: Result Comment: PT L EFT COMING BACK ANOTHER DAY Performed By: #### L 500.4100, L500.3400 #### [facility] [address] [place], [address] CLDL Normal [facility] Comment on above: Result Comment: PT L EFT COMING BACK ANOTHER DAY Performed By: #### L 500.4100, L500.3400 #### [facility] [address] [place], [address] HDL Normal [facility] Comment on above: Result Comment: PT L EFT COMING BACK ANOTHER DAY Performed By: #### L 500.4100, L500.3400 #### [facility] [address] [place], [address] VLDL Normal 5-40 [facility] Comment on above: Result Comment: PT L EFT COMING BACK ANOTHER DAY Performed By: #### L 500.4100, L500.3400 #### [facility] [address] [place], [address] Liver Profileon 05-26-2024 ALB Normal 3.5-5.0 [facility] Comment on above: Result Comment: PT L EFT COMING BACK ANOTHER DAY Performed By: #### L 500.4100, L500.3400 #### [facility] [address] [place], [address] ALK PHOS Normal 40-129 [facility] Comment on above: Result Comment: PT L EFT COMING BACK ANOTHER DAY Performed By: #### L 500.4100, L500.3400 #### [facility] [address] [place], [address] ALT Normal <=46 [facility] Comment on above: Result Comment: PT L EFT COMING BACK ANOTHER DAY Performed By: #### L 500.4100, L500.3400 #### [facility] [address] [place], [address] AST Normal <=37 [facility] Comment on above: Result Comment: PT L EFT COMING BACK ANOTHER DAY Performed By: #### L 500.4100, L500.3400 #### [facility] [address] [place], [address] D BILI Normal 0.00-0.30 [facility] Comment on above: Result Comment: PT L EFT COMING BACK ANOTHER DAY Performed By: #### L 500.4100, L500.3400 #### [facility] [address] [place], [address] T BILI Normal 0.00-1.30 [facility] Comment on above: Result Comment: PT L EFT COMING BACK ANOTHER DAY Performed By: #### L 500.4100, L500.3400 #### [facility] [address] [place], [address] T PROT Normal 5.9-8.4 [facility] Comment on above: Result Comment: PT L EFT COMING BACK ANOTHER DAY Performed By: #### L 500.4100, L500.3400 #### [facility] [address] [place], [address] Angiotensin Convert Enzymeon 05-16-2024 ANGIOT-CONV.ENZ 73 U/L Normal 14-82 [facility] Comment on above: Result Comment: Perf ormed at: - [facility] [address] [id number] Hop Picker: Trent Live PhD, Phone: [phone] Performed By: #### L 3107.6905 ####[facility] [address] [place], [place], [address] Chest without Contraston Chest without Contrast [facility] Imaging Services [address] [place], [place] [address] Chest without Contrast MR#: [id number] Acct: [id number] Name: DONTAE PARRA Rep #: [id number] : 1975 M 48 From: Jeyson Dahl MD PCP: JEANNIE HERNANDEZ CONTAMINATED LAND CONSULTANT-Valery Status: REG CLI Study: Chest without Contrast Date of Exam: 05/14/24 Exam# [id number] Ordering Dr: Delores Pablo CONTAMINATED LAND CONSULTANT- C PROCEDURE: CHEST WITHOUT CONTRAST 05/14/2024 REASON [...] stents appears greatest right coronary. Reading Location: [id number] CC: JEANNIE NIXONLER; Delores Pablo NP Fur Stylist: Signed Normal [facility] Pulmonary Visit Reporton Pulmonary Visit Report [facility] Pulmonary Medicine of [address] [place] [address] OFFICE VISIT Date of Service: 04/11/24 MR#: [id number] Acct: [id number] Name: DONTAE PARRA Rep #: [id number] : 1975 Provider: Delores Pablo NP Age/Sex: 48/M Location[place] [facility] Status: Signed Assessment and Plan Assessment and [...] to his regimen. Orders: Orders Fungus Stain ([facility]) Today R05.3 - Chronic cough [...] currently smo (more content not included)... Normal [facility] Cardiology Visit Reporton Cardiology Visit Report [facility] 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 Normal [facility] Stress Reporton 03-03-2024 Stress Report [facility] Cardiovascular Services [address] [place] [address] MR#: [id number] Acct: [id number] Name: DONTAE PARRA Rep #: [id number] : 1975 48 From: Bria Olsen MD Primary Care: JEANNIE HERNANDEZ CONTAMINATED LAND CONSULTANT-C Status: REG CLI Referring Dr: Elda Villegas CONTAMINATED LAND CONSULTANT CONTAMINATED LAND CONSULTANT-C Sex: M C Stress Test Report Date: [...] of 59%. This note was generated with [employer] software. It may contain incorrect words, spelling, and punctuation that were not noted in checking the note before signing. 03/03/24 0900 Date Bria Olsen MD CC: JOEL MALDONADO DAVID Date Dictated: 03/03/24858 Date Transcribed: 03/03/24858 Fur Stylist: JAIRO Signed Normal [facility] Pulmonary Visit Reporton Pulmonary Visit Report [facility] Pulmonary Medicine of [address] [place] [address] OFFICE VISIT Date of Service: 02/29/24 MR#: [id number] Acct: [id number] Name: DONTAE PARRA Rep #: [id number] : 1975 Provider: Delores Pablo NP Age/Sex: 48/M Location[place] [facility] Status: Signed Assessment and Plan Assessment and [...] today. I have also recommended transitioning to [facility] from [facility]. Patient has been given samples and instruction [...] ea 5RF J43.9 - Emphysema, unspecified Discontinued blxwdnxmmy-jksvvifw-s ormoterol 160-9-4.8 mcg/actuation ([employer]) Discontinued Reason: [...] pain for which he is following with [facility] for plan and management. He reports occasional chest tightness and wheezing. Albuterol does improve his symptoms. (more content not included)... Normal [facility] Chest PA and Lateralon 02-18 Chest PA and Lateral [facility] Imaging Services [address] [place] [address] Chest PA and Lateral MR#: [id number] Acct: [id number] Name: DONTAE PARRA Rep #: [id number] : 1975 M 48 From: Michelle Mercer MD PCP: JEANNIE HERNANDEZ Status: REG CLI Study: Chest PA and Lateral Date of Exam: 02/19/24 Exam# [id number] Ordering Dr: Delores Pablo [id number] STUDY: X-RAY CHEST REASON FOR EXAM: Male, [...] 23:55 EST , CC: JEANNIE Pablo NP Fur Stylist: Signed Normal [facility] MR/BMS.BPon 02-19-2024 MR/BMS.BP [address], [address] [place] [address] OFFICE VISIT Date of Service: 02/19/24 MR#: [id number] Acct: [id number] Name: DONTAE PARRA Rep #: [id number] : 1975 Provider: JOEL naranjo Age/Sex: 48/M Location: [facility] Status: Signed Intake Vital Signs 01/08/24 14:09 [...] 20 mg PO DAILY 06/15/22 02/19/24 History capsule,ext.xgronpf57 hr multiphase montelukast 10 mg tablet 10 [...] Presence of stent in coronary artery ( 12/14/22) Old myocardial infarction Primary snoring Nicotine addiction Hemoptysis Nicotine dependence, cigarettes, uncomplicated Abdominal distension (gaseous) Unspecified systolic (congestive) heart failure Hyperlipidemia Atherosclerosis of coronary artery of augustine heart without angina pectoris Chest pain Noncompliance [...] smoker tobacc (more content not included)... Normal [facility] Urine Drug Screen (VISTA)on 01-21-2024 AMPHETAMINES Negative Normal <1000 ng/mL [facility] Comment on above: Order Comment: MEDTO X Performed By: #### L 505.5000 ####[facility] [address] [place], [place], [id number] BARBITIURATES Negative Normal < 200 ng/mL [facility] Comment on above: Order Comment: MEDTO X Performed By: #### L 505.5000 ####[facility] [address] [place], [place], [address] BENZODIAZIPINE Negative Normal < 200 ng/mL [facility] Comment on above: Order Comment: MEDTO X Performed By: #### L 505.5000 ####[facility] [address] [place], [place], [address] COCAINE Negative Normal < 300 ng/mL [facility] Comment on above: Order Comment: MEDTO X Performed By: #### L 505.5000 ####[facility] [address] [place], [address] ECSTACY Negative Normal < 500 ng/mL [facility] Comment on above: Order Comment: MEDTO X Performed By: #### L 505.5000 ####[facility] [address] [facility] [address] METHADONE Negative Normal < 300 ng/mL [facility] Comment on above: Order Comment: MEDTO X Performed By: #### L 505.5000 ####[facility] [address] [facility] [address] OPIATES Negative Normal < 300 ng/mL [facility] Comment on above: Order Comment: MEDTO X Performed By: #### L 505.5000 ####[facility] [address] [facility] [address] PCP Negative Normal < 25 ng/mL [facility] Comment on above: Order Comment: MEDTO X Performed By: #### L 505.5000 ####[facility] [address] [place], [address] THC Negative Normal < 50 ng/mL [facility] Comment on above: Order Comment: MEDTO X Performed By: #### L 505.5000 ####[facility] [address] [place], [address] VISTA UDS PH 5 Normal [facility] Comment on above: Order Comment: MEDTO X Performed By: #### L 505.5000 ####[facility] [address] [place], [address] Pulmonary Visit Reporton Pulmonary Visit Report [facility] Pulmonary Medicine of [place] [address] [place] [address] OFFICE VISIT Date of Service: 01/14/24 MR#: [id number] Acct: [id number] Name: DONTAE PARRA Rep #: [id number] : 1975 Provider: Delores Pablo NP Age/Sex: 48/M Location[place] [facility] Status: Signed Assessment and Plan [...] Lona PA/Lat xray to be pushed to [facility]. 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 He reports [...] to b (more content not included)... Normal [facility] MR/BMS.BPon 01-08-2024 MR/BMS.BP [facility] [address] [facility], [address] [place] [id number] OFFICE VISIT Date of Service: 01/08/24 MR#: [id number] Acct: [id number] Name: DONTAE PARRA Rep #: [id number] : 1975 Provider: JOEL naranjo Age/Sex: 48/M Location: [facility] Status: Signed Intake Vital Signs 11/06/23 09:59 [...] 20 mg PO DAILY 06/15/22 01/08/24 History capsule,ext.fzevpzt79 hr multiphase montelukast 10 mg tablet 10 [...] failure Hyperlipidemia Atherosclerosis of coronary artery of augustine heart without angina pectoris Chest pain Noncompliance [...] to fe (more content not included)... Normal [facility] XR CHEST 2 VIEWSon 4 XR [...] PM Ordering Provider: LAURA WARREN [facility] FACILITY CODING SUMMARYon FACILITY CODING SUMMARY Facility Coding Facility Coding Summary [address] [place] [address] [phone] 11/30/2023 Patient: DONTAE PARRA Sex: Male : [...] D.O. Procedures from Nurses/Facility: Blood Draw (CPT: 58388) 1 of 2 Facility Coding IV Hydration (CPT: 61236 X3) IV Push MORPHine IVP (CPT: 93257) IV Push Zofran IVP (CPT: 52284) IV Push Zofran IVP (CPT: 54291) IV Push Dilaudid IVP (CPT: 39292) IV Infusion CeFAZolin IVPB 1g/50ml PREMIX (CPT: 55957) SUPPLIES [facility] [address]-52 This is a partial abstract of information documented in the full record. Core Maker Helper must use independent judgment in selecting codes. CPT copyright 2022 [employer]. All Rights Reserved. 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 00:51 12/01/2023 Lucas Escalante R.NGabino 00:51 11/30 Medication Discontinued: bag #1 completed upon Scanned transfer. Total amount infused: 1000 mL. IV patency established. IV site checked: no pain, redness, or swelling. IV flushed thoroughly post-medication administration. - 01:16 Lucas Escalante R.N. CeFAZolin IVPB 21:11/29 CeFAZolin IVPB 1g/50ml PREMIX 1 g started at 100 Started 1g/50ml PREMIX 1 g mL/hr via Site# 1. Allergies verified and confirmed 5 rights. IV 21:11/30/2023 at 100 mL/hr (NOW patency established. IV site checked: no pain, redness, or swelling. Suzanne AdamsN. x1) IV flushed thoroughly pre-medication administration. Information Stopped reviewed with patient. - 21:22 Lucas Escalante R.N. 21:56 11/30/2023 Suzanne AdamsNGabino 21:56 11/29 Medication Discontinued: IV completed. Total amount Scanned infused: 50 mL. IV patency established. IV site checked: no pain, redness, or swelling. IV flushed thoroughly post-medication administration. - 22:12 Lucas Escalante R.N. 1 of 2 Strainer Mill Operator Medication Ordered Medication Administration Date/Time Dilaudid IVP [...] Scanned Ava, R.N. 2 of 2 Normal [facility] NURSES CLINICAL REPORT (NOTE S)on 12-06-2023 NURSES CLINICAL REPORT (NOTES) Nurse Narrative Nurse Clinical Narrative [address] [place] [address] [phone] 11/30/2023 Patient: DONTAE PARRA Sex: Male : 1975 Age: 48y Disposition: Transfer to [facility] Disposition Decision Time: 00:02 12/01/2023 Departure [...] once a day . -- 20:01 11/30/23 IJM Huffman R.N. 1 of 6 Nurse Narrative hydroCHLOROthiazide 25 mg tablet: once a day . -- 20:02 11/30/23 JIM Huffman R.N. buPROPion HCL XL 150 mg 24 hr tablet, extended release: once a day . -- 20:02 11/30/23 EDT Lexii Huffman R.N. omeprazole 40 mg capsule,delayed [...] Lexii Huffman R.N. 19:36 11/30/23. Preferred pharmacy: [facility] -- 19:48 11/30/23 EDT Lexii Huffman R.N. ADDITIONAL SURGERIES: Cardiac Procedures -- 19:41 11/30/23 EDT Lexii Huffman R.N. Major Trauma History Arrived by EMS. Historian: patient. Acuity: LEVEL 2. 19:36 11/30/23. Triage time: 19:36 11/30/2023. Mechanism of injury: Fell: (from tree stand approx 17-15 feet). Occurred 18:30 11/30/2023. Patient is on anticoagulation (blood thinner) therapy: includes plavix. 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 -- 19:48 11/30/23 EDVenkata Huffman R.N. 19:42 11/30/23. BP: 145/78 MAP: 100. HR: 92. RR: 18. O2 saturation: 96% Temperature: 98 F. Pain leve (more content not included)... Normal [facility] ORDER SHEET (CPOE ONLY)on ORDER SHEET (CPOE ONLY) Order Sheet Order Sheet [address] [place] [address] [phone] 11/30/2023 Patient: DONTAE PARRA Sex: Male : 1975 Age: 48y MEASUREMENTS: Wt: 98.9 kg, Ht/Sae: 72.0 in, BMI: 29.57 ALLERGIES: isosorbide MEDICATION/IV/DRIP/FL UID ORDERS Order Description Priority Entered Acknowledged Completed IV NS 0.9 %1000 mL (NOW x1) 20:23 11/30/2023 20:57 21:20 Mumtaz Holley D.O. 11/30/2023 11/30/2023 Daija Adams, R.N. CeFAZolin IVPB 1g/50ml 20:23 11/30/2023 20:57 21:22 PREMIX1 g at 100 mL/hr (NOW Mumtza Holley D.O. 11/30/2023 11/30/2023 x1) Daija Adams, R.N. Tdap IM DIPTH/TETANUS/PERT 20:25 11/30/2023 Cancelled: Treatment not > 7yr and older0.5 mL (NOW x1) Mumtaz Holley D.O. Indicated, pt UTD on Tdap 21:22 EDT Lucas Escalante R.N. Dilaudid IVP1 mg (NOW x1) 20:40 11/30/2023 20:57 21:17 Mumtaz Holley D.O. 11/30/2023 11/30/2023 Daija Adams, R.N. Zofran IVP4 mg (NOW x1) 20:40 11/30/2023 20:57 21:17 Mumtaz Holley D.O. 11/30/2023 11/30/2023 Suzanne AdamsNGabino Escalante, R.N. 1 of 4 Order Sheet Reason [...] alerts: Clinical consideration given --01:02 12/01/2023 Mumtaz Hloley D.O. LAB ORDERS Order Description Priority Entered Acknowledged Collected Completed CBC w Diff Stat Stat 20:23 11/30/2023 20:47 11/30/2023 21:18 11/30/2023 Paul Lopez, Daija Escalante RGabinoNGabino CMP Stat Stat 20:23 11/30/2023 20:47 11/30/2023 21:18 11/30/2023 Paul Lopez R.N. Seth Lapp, R.NGabino Urinalysis Stat Stat 20:23 11/30/2023 Cancelled: Unable to Collect Mumtaz Holley D.O. 01:14 EDT Lucas Escalante R.N. Lipase Stat Stat 20:23 11/30/2023 20:47 11/30/2023 21:18 11/30/2023 Paul Lopez R.N. Seth Lapp, R.NGabino Troponin-I (Sched: q3h Stat 20:25 11/30/2023 20:47 11/30/2023 21:19 11/30/2023 X2); Stat 1 of 2 Paul Lopez, Daija Escalante R.NGabino Troponin-I (Sched: q3h Stat 20:25 11/30/2023 20:47 11/30/2023 00:44 12/01/2023 X2); Stat 2 of 2 Paul Lopez, Daija Escalante, R.NGabino 2 of 4 Order Sheet DIAGNOSTIC STUDY ORDERS Order Description Priority Entered Acknowledged Completed CT Brain wo IV Cont Stat Stat 20:23 11/30/2023 20:47 21:19 Mumtaz Holley D.O. 11/30/2023 11/30/2023 Daija Adams, R.N. Reason for Study: Head Injury CT C-Spine wo IV Cont Stat Stat 20:23 11/30/2023 20:47 21:19 Mumtaz Holley D.O. 11/30/2023 11/30/2023 Daija Adams, R.N. Reason for Study: Trauma/Injury CT CAP w IV Cont Stat Stat 20:23 11/30/2023 20:47 21:19 Mumtaz Holley D.O. 11/30/2023 11/30/2023 Daija Adams, R.N. Reason for Study: Trauma/Injury STAFF ORDERS Order Description Priority Entered Acknowledged Collected Completed Pulse Oximeter 20:23 11/30/2023 20:47 11/30/2023 21:18 11/30/2023 Paul Lopez, Daija Escalante, R.N. [employer]cel [employer] Delivery 20:23 11/30/2023 20:47 11/30/2023 21:18 11/30/2023 Paul Lopez, Daija Escalante, R.N. Oxygen in ER 20:23 11/30/2023 20:47 11/30/2023 21:19 11/30/2023 Paul Lopez R.N. Seth Lapp, R.N. EKG 20:25 11/30/2023 20:47 11/30/2023 21:19 11/30/2023 Paul Lopez, Daija Escalante, R.N. 3 of 4 Order Sheet [Electronically signed by Mumtaz Holley D.O. (12/06/2023 21:04 EDT)] 4 of 4 Normal [facility] PHYS CLINICAL REPORT AND ADD ENon 12-06-2023 PHYS CLINICAL REPORT AND ADDEN Narrative Physician Clinical [facility] [address] [place] [phone] 11/30/2023 Patient: DONTAE PARRA Sex: Male : 1975 Age: 48y Disposition: Transfer to [facility] Disposition Decision Time: 00:02 12/01/2023 Departure [...] EDT 10 (more content not included)... Normal [facility] PHYS CODING SUMMARY OIL DIPPER AB Pastor 12-06-2023 PHYS CODING SUMMARY OIL DIPPER ABST Coding Summary Coding Summary [address] [address] [phone] 11/30/2023 Patient: DONTAE PARRA Sex: Male : 1975 Age: 48y ICD-10 Codes M54.9: Dorsalgia, unspecified M54.6: Pain in thoracic spine W14.xxxA: Fall from tree, initial encounter CPT Codes EKG (Insufficient documentation to return CPT code.) This is a partial abstract of information documented in the full record. Core Maker Helper must use independent judgment in selecting codes. CPT copyright 2022 [employer]. All Rights Reserved. 1 of 1 Normal [facility] SUPER BILLon 12-06-2023 SUPER BILL [address] [address] [phone] 11/30/2023 Patient: DONTAE PARRA Sex: Male : 1975 Age: 48y Facility Professional Category Item Description Code Code Quantity Fee Total Drugs Normal Saline 523188 1 $0.00 $0.00 1000cc (299852) Nurse/E/M EMERGENCY 657471 1 $0.00 $0.00 DEPT VISIT HIGH SEVERITYFUNCJ (67470-73) Nurse/IV/IM/Infusions Drip/IVPB initial 552657 1 $0.00 $0.00 (99330) Nurse/IV/IM/Infusions Hydration 657499 3 $0.00 $0.00 additional hour (65706) Nurse/IV/IM/Infusions IVP additional 003916 3 $0.00 $0.00 push (25719) Nurse/IV/IM/Infusions IVP same med 936835 1 $0.00 $0.00 (31 min apart) (18653) Grand $0.00 Total 1 of 2 [facility] Providers Mumtaz Holley D.O. Chief Complaint BACK [...] tree, initial encounter 2 of 2 Normal [facility] VISIT SUMMARYon 12-06-2023 VISIT SUMMARY Visit Overview Visit Overview [address] [place] [address] [phone] 11/30/2023 Patient: DONTAE PARRA Sex: Male : [...] THORACIC AORTIC DISSECTION 4 of 4 Normal [facility] CBC W Auto Differential pane l (Bld)on 12-01-2023 Basophils (Bld) [#/Vol] 0.0 10*3/uL 0.0 - 0.2 10*3/uL [facility] Basophils/100 WBC (Bld) 0.1 % 0.0 - 2.0 % [facility] Eosinophils (Bld) [#/Vol] 0.0 10*3/uL 0. 0 - 0.5 10*3/uL [facility] Eosinophils/100 WBC (Bld) 0.3 % 0. 0 - 6.0 % [facility] Erythrocyte distribution width (RBC) [Ratio] 14.0 % 11.5 - 15.0 % [facility] Hematocrit (Bld) [Volume fraction] 38.9 % Low 40.0 - 52.0 % [facility] Hemoglobin (Bld) [Mass/Vol] 13.5 g/dL 13.0 - 18.0 g/dL [facility] Immature granulocytes (Bld) [#/Vol] 0.0 10*3/uL NINF - 0.1 10*3/uL [facility] Health Immature granulocytes/100 WBC (Bld) 0.4 % 0.0 - 2.0 % [facility] Interpretation and review of laboratory results Abnormal [facility] th Lymphocytes (Bld) [#/Vol] 1.3 10*3/uL 1. 0 - 4.3 10*3/uL [facility] Lymphocytes/100 WBC (Bld) 16.4 % 15 .0 - 45.0 % [facility] MCH (RBC) [Entitic mass] 30.8 pg 26. 0 - 34.0 pg [facility] MCHC (RBC) [Mass/Vol] 34.7 % 30.5 - 36.0 % [facility] MCV (RBC) [Entitic vol] 88.6 fL 77.0 - 99.0 fL [facility] Monocytes (Bld) [#/Vol] 0.6 10*3/uL 0.0 - 0.9 10*3/uL [facility] Monocytes/100 WBC (Bld) 7.4 % 5.0 - 13.0 % [facility] Neutrophils (Bld) [#/Vol] 5.8 10*3/uL 1. 8 - 7.5 10*3/uL [facility] Neutrophils/100 WBC (Bld) 75.4 % 38 .0 - 82.0 % [facility] Nucleated RBC/100 WBC (Bld) [Ratio] 0.0 % [facility] Platelet mean volume (Bld) [Entitic vol] 8.5 fL Low 9.0 - 12.7 fL [facility] Platelets (Bld) [#/Vol] 212 10*3/uL 140 - 440 10*3/uL [facility] RBC (Bld) [#/Vol] 4.39 10*6/uL Low 4.40 - 5.90 10*6/uL [facility] WBC (Bld) [#/Vol] 7.7 10*3/uL 3.6 - 10.7 10*3/uL [facility] CBC WITH AUTO DIFFERENTIALon 12-01-2023 Basophils (Bld) [#/Vol] 0.0 10*3/uL Normal 0.0-0.2 [facility] Comment on above: Performed By: #### L AB17 #### Career Transition Specialist: NEISHA DELGADO ([id number]) [facility] ([facility]) [address] [place] [address] Basophils/100 WBC (Bld) 0.1 % Normal 0.0-2.0 [facility] Comment on above: Performed By: #### L AB17 #### Career Transition Specialist: NEISHA DELGADO ([id number]) [facility] [address] [place] [address] Eosinophils (Bld) [#/Vol] 0.0 10*3/uL Normal 0.0-0.5 [facility] Comment on above: Performed By: #### L AB17 #### Career Transition Specialist: NEISHA DELGADO ([id number]) [facility]) [address] [place] [address] Eosinophils/100 WBC (Bld) 0.3 % Normal 0.0-6.0 [facility] Comment on above: Performed By: #### L AB17 #### Career Transition Specialist: NEISHA DELGADO ([id number]) [facility]) [address] [place] [address] Erythrocyte distribution width (RBC) [Ratio] 14.0 % Normal 11.5-15.0 [facility] Comment on above: Performed By: #### L AB17 #### Career Transition Specialist: NEISHA DELGADO ([id number]) [address] Hematocrit (Bld) [Volume fraction] 38.9 % Low 40.0-52.0 [facility] Comment on above: Performed By: #### L AB17 #### Career Transition Specialist: NEISHA DELGADO ([id number]) [facility]) [address] [place] [address] Hemoglobin (Bld) [Mass/Vol] 13.5 g/dL Normal 13.0-18.0 [facility] Comment on above: Performed By: #### L AB17 #### Career Transition Specialist: NEISHA DELGADO ([id number]) [facility]) [address] [place] [address] IMMATURE GRANS % 0.4 % Normal 0.0-2.0 [facility] Comment on above: Performed By: #### L AB17 #### Career Transition Specialist: NEISHA DELGADO ([phone]) [facility]) [address] [place] [address] IMMATURE GRANS ABSOLUTE 0.0 10*3/uL Normal <0.1 [facility] Comment on above: Performed By: #### L AB17 #### Career Transition Specialist: NEISHA DELGADO ([phone]) [facility]) [address] [place] [address] Lymphocytes (Bld) [#/Vol] 1.3 10*3/uL Normal 1.0-4.3 [facility] Comment on above: Performed By: #### L AB17 #### Career Transition Specialist: NEISHA DELGADO ([id number]) [facility]) [address] [place] [address] Lymphocytes/100 WBC (Bld) 16.4 % Normal 15.0-45.0 [facility] Comment on above: Performed By: #### L AB17 #### Career Transition Specialist: NEISHA DELGADO ([id number]) [facility]) [address] [place] [address] MCH (RBC) [Entitic mass] 30.8 pg Normal 26.0-34.0 [facility] Comment on above: Performed By: #### L AB17 #### Career Transition Specialist: NEISHA DELGADO ([phone]) [facility]) [address] [place] [address] MCHC 34.7 % Normal 30.5-36.0 [facility] Comment on above: Performed By: #### L AB17 #### Career Transition Specialist: NEISHA DELGADO ([id number]) [facility]) [address] [place] [address] MCV (RBC) [Entitic vol] 88.6 fL Normal 77.0-99.0 [facility] Comment on above: Performed By: #### L AB17 #### Career Transition Specialist: NEISHA DELGADO ([id number]) [facility]) [address] [place] [address] Monocytes (Bld) [#/Vol] 0.6 10*3/uL Normal 0.0-0.9 [facility] Comment on above: Performed By: #### L AB17 #### Career Transition Specialist: NEISHA DELGADO ([id number]) [facility]) [address] [place] [address] Monocytes/100 WBC (Bld) 7.4 % Normal 5.0-13.0 [facility] Comment on above: Performed By: #### L AB17 #### Career Transition Specialist: NEISHA DELGADO ([phone]) [facility] ([facility]) [address] [place] [address] NEUTROPHILS ABSOLUTE 5.8 10*3/uL Normal 1.8-7.5 [facility] Comment on above: Performed By: #### L [id number] #### Career Transition Specialist: NEISHA DELGADO ([phone]) [facility] ([facility]) [address] [place] [address] Neutrophils/100 WBC (Bld) 75.4 % Normal 38.0-82.0 [facility] Comment on above: Performed By: #### L [id number] #### Career Transition Specialist: NEISHA DELGADO ([id number]) [facility] ([facility]) [address] [place] [address] NRBC 0.0 /100 WBCs Normal 0.0-2.0 [facility] Comment on above: Performed By: #### L [id number] #### Career Transition Specialist: NEISHA DELGADO ([id number]) [facility] ([facility]) [address] [place] [address] Platelet mean volume (Bld) [Entitic vol] 8.5 fL Low 9.0-12.7 [facility] Comment on above: Performed By: #### L [id number] #### Career Transition Specialist: NEISHA DELGADO ([id number]) [facility] ([facility]) [address] [place] [address] [place] Platelets (Bld) [#/Vol] 212 10*3/uL Normal 140-440 [facility] Comment on above: Performed By: #### L [id number] #### Career Transition Specialist: NEISHA DELGADO ([id number]) [facility] ([facility]) [address] [place] [address] [place] RBC (Bld) [#/Vol] 4.39 10*6/uL Low 4.40-5.90 [facility] Comment on above: Performed By: #### L [id number] #### Career Transition Specialist: NEISHA DELGADO ([phone]) [facility] ([facility]) [address] [place] [address] WBC (Bld) [#/Vol] 7.7 10*3/uL Normal 3.6-10.7 [facility] Comment on above: Performed By: #### L AB17 #### Career Transition Specialist: NEISHA DELGADO ([phone]) [facility] ([facility]) [address] [place] [address] COMPREHENSIVE METABOLIC PANE Shilo 12-01-2023 Albumin [Mass/Vol] 4.2 g/dL Normal 3.5-5.0 [facility] Comment on above: Performed By: #### L AB17 #### Career Transition Specialist: NEISHA DELGADO ([phone]) [facility] ([facility]) [address] [place] [address] ALP [Catalytic activity/Vol] 55 U/L Normal 38-126 [facility] Comment on above: Performed By: #### L [id number] #### Career Transition Specialist: NEISHA DELGADO ([phone]) [facility] ([facility]) [address] [place] [address] ALT [Catalytic activity/Vol] 25 U/L Normal 0-49 [facility] Comment on above: Performed By: #### L AB17 #### Career Transition Specialist: NEISHA DELGADO ([phone]) [facility] ([facility]) [address] [place] [address] Anion gap [Moles/Vol] 7 mmol/L Normal 3-13 [facility] Comment on above: Performed By: #### L [id number] #### Career Transition Specialist: NEISHA DELGADO ([phone]) [facility] ([facility]) [address] [place] [address] AST [Catalytic activity/Vol] 32 U/L Normal 15-46 [facility] Comment on above: Performed By: #### L [id number] #### Career Transition Specialist: NEISHA DELGADO ([phone]) [facility]) [address] [place] [address] Bilirubin [Mass/Vol] 1.7 mg/dL High 0.2-1.3 [facility] Comment on above: Performed By: #### L [id number] #### Career Transition Specialist: NEISHA DELGADO ([id number]) [facility] ([facility]) [address] [place] [address] Calcium [Mass/Vol] 9.2 mg/dL Normal 8.4-10.4 [facility] Comment on above: Performed By: #### L AB17 #### Career Transition Specialist: NEISHA DELGADO ([phone]) [facility] ([facility]) [address] [place] [address] [place] Chloride [Moles/Vol] 104 mmol/L Normal 98-107 [facility] Comment on above: Performed By: #### L [id number] #### Career Transition Specialist: NEISHA DELGADO ([id number]) [facility] ([facility]) [address] [place] [address] CO2 [Moles/Vol] 24 mmol/L Normal 22-30 [facility] Comment on above: Performed By: #### L AB17 #### Career Transition Specialist: NEISHA DELGADO ([id number]) [facility] ([facility]) [address] [place] [address] [place] Creatinine [Mass/Vol] 1.11 mg/dL Normal 0.66-1.25 [facility] Comment on above: Performed By: #### L [id number] #### Career Transition Specialist: NEISHA DELGADO ([phone]) [facility] ([facility]) [address] [place] [address] [place] GLOMERULAR FILTRATION RATE ML/MIN/1.73 SQ M.PREDICTED 81.4 mL/min/1.73m*2 Normal >60.0 [facility] Comment on above: Result Comment: Calc ulation based on the Chronic Kidney Disease Epidemiology Collaboration (CKD-EPI) equation refit without adjustment for race ORDER COMMENTS: Slightly Hemolyzed. Interpret ALBUMIN, ALKALINE PHOSPHATASE, AST, POTASSIUM, and TOTAL PROTEIN with caution. Performed By: #### L [id number] #### Career Transition Specialist: NEISHA DELGADO ([phone]) [facility] ([facility]) [address] [place] [address] [place] Glucose [Mass/Vol] 121 mg/dL High 70-100 [facility] Comment on above: Performed By: #### L [id number] #### Career Transition Specialist: NEISHA DELGADO ([phone]) [facility] ([facility]) [address] [place] [address] Potassium [Moles/Vol] 4.1 mmol/L Normal 3.5-5.1 [facility] Comment on above: Performed By: #### L AB17 #### Career Transition Specialist: NEISHA DELGADO ([phone]) [facility] ([facility]) [address] [place] [address] Protein [Mass/Vol] 7.2 g/dL Normal 6.3-8.2 [facility] Comment on above: Performed By: #### L [id number] #### Career Transition Specialist: NEISHA DELGADO ([id number]) [facility] ([facility]) [address] [place] [address] Sodium [Moles/Vol] 135 mmol/L Normal 135-145 [facility] Comment on above: Performed By: #### L [id number] #### Career Transition Specialist: NEISHA DELGADO ([phone]) [facility] ([facility]) [address] [place] [address] Urea nitrogen [Mass/Vol] 15 mg/dL Normal 9-20 [facility] Comment on above: Performed By: #### L [id number] #### Career Transition Specialist: NEISHA DELGADO ([phone]) [facility]) [address] [place] [address] CT Abdomen and Pelvis W cont rast [...] MD Electronically Signed Date/Time: 12/01/2023 5:02 AM [facility] Patient Name: DONTAE PARRA : 1975 [...] then post processed by myself on the [employer] workstation, with reconstructed 3D volume rendered and [...] of infiltrate/atelectasi s. Mild fatty liver. [facility] Yony Rogers MD - 12/01/2023 [...] then post processed by myself on the [employer] workstation, with reconstructed 3D volume rendered and [...] Electronically Signed Date/Time: 12/01/2023 5:02 AM EDT [facility] Radiology Study observation (narrative) [facility] CT Abdomen and Pelvis W cont rast IVOrdered By: Yony Rogers on 12-01-2023 [employer] Work Phone: CT CHEST ABDOMEN PELVIS RASHID [...] then post processed by myself on the [employer] workstation, with reconstructed 3D volume rendered and [...] emphysema. Report Dictated on Electronically Signed By: oYny Rogers MD Electronically Signed Date/Time: 12/01/2023 5:02 AM EDT Scan error, missed chest on contrast phase, repeated just the chest region. Normal [facility] Comprehensive metabolic 1998 panelon 12-01-2023 Albumin [Mass/Vol] 4.2 g/dL 3.5 - 5.0 g/dL [facility] ALP [Catalytic activity/Vol] 55 U/L 38 - 126 U/L [facility] ALT [Catalytic activity/Vol] 25 U/L 0 - 49 U/L [facility] Anion gap [Moles/Vol] 7 mmol/L 3 - 13 mmol/L [facility] AST [Catalytic activity/Vol] 32 U/L 15 - 46 U/L [facility] Bilirubin [Mass/Vol] 1.7 mg/dL High 0.2 - 1 .3 mg/dL [facility] Calcium [Mass/Vol] 9.2 mg/dL 8.4 - 10. 4 mg/dL [facility] Chloride [Moles/Vol] 104 mmol/L 98 - 10 7 mmol/L [facility] CO2 [Moles/Vol] 24 mmol/L 22 - 30 mmol/L [facility] Creatinine [Mass/Vol] 1.11 mg/dL 0.66 - 1.25 mg/dL [facility] GFR/1.73 sq M.predicted (S/P/Bld) [Vol rate/Area] 81.4 mL/min - PINF [facility] Comment on above: Calculation based on the Chronic Kidney Disease Epidemiology Collaboration (CKD-EPI) equation refit without adjustment for race Glucose [Mass/Vol] 121 mg/dL High 70 - 100 mg/dL [facility] Interpretation and review of laboratory results Abnormal [facility] Potassium [Moles/Vol] 4.1 mmol/L 3.5 - 5.1 mmol/L [facility] Protein [Mass/Vol] 7.2 g/dL 6.3 - 8.2 g/dL [facility] Sodium [Moles/Vol] 135 mmol/L 135 - 145 mmol/L [facility] Urea nitrogen [Mass/Vol] 15 mg/dL 9 - 20 mg/dL [facility] Slightly Hemolyzed. Interpret ALBUMIN, ALKALINE PHOSPHATASE, AST, POTASSIUM, and TOTAL PROTEIN with caution. [facility] Consulton 12-01-2023 Consult Ortho Spine Consult Patient: Dontae Parra Date of : 1975 Acct: [id number] PCP: Dylan Magallon Date of Admission: 12/01/2023 [...] artery disease) COPD (chronic obstructive pulmonary disease) ([facility]) Emphysema of lung ([facility]) 2010 Erectile dysfunction GERD (gastroesophageal reflux disease) History of echocardiogram 10/20/2015 EF 50%, trivial MR History of percutaneous coronary intervention 02/11/2016 RICHY - prox RCA, RICHY - mid RCA, patent ramus stent, EF 50-55% Hyperlipidemia Hypertension Hypotestosteronism Presence of stent in coronary artery Restless leg STEMI (ST elevation myocardial infarction) ([facility]) 09/2015 posterior wall Tobacco use disorder Past [...] Tobacco comments: (more content not included)... Normal [facility] ED Nursing Noteon 12-01-2023 ED Nursing Note Patient ambulatory t o bathroom with steady gait Jaz Ayoub RN 12/01/23 0915 [facility] ED Nursing Note Provider at bedside for marita Jaz Ayoub RN 12/01/23 0840 [facility] ED Nursing Note Patient sat up eatin g breakfast at this time, provided with extra juice per request, family at bedside, denies current needs at this time, call bernal within reach, care is ongoing Jaz Ayoub RN 12/01/23 0870 [facility] ED Nursing Note Dr. Jones at bedside Jaz Ayoub RN 12/01/23 0786 [facility] ED Provider Noteon ED Provider Note EMERGENCY DEPARTMENT ENCOUNTER Pt Name: Dontae Parra Birthdate 1975 Date of evaluation: 12/01/2023 ED Provider: Missy Jones DO CHIEF COMPLAINT Chief Complaint Patient presents with Abdominal Injury Transfer from [place] for trauma consult. Fall from tree stand 15-17 feet. 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 [facility] HISTORY OF PRESENT ILLNESS (Location/Symptom, Timing/Onset, Context/Setting, [...] artery disease) COPD (chronic obstructive pulmonary disease) ([facility]) Emphysema of lung ([facility]) 2010 Erectile dysfunction GERD (gastroesophageal reflux disease) History of echocardiogram 10/20/2015 EF 50%, trivial MR History of percutaneous coronary intervention 02/11/2016 RICHY - prox RCA, RICHY - mid RCA, patent ramus stent, EF 50-55% Hyperlipidemia Hypertension Hypotestosteronism Presence of stent in coronary artery Restless leg STEMI (ST elevation myocardial infarction) ([facility]) 09/2015 posterior wall Tobacco use disorder SURGICAL [...] fluid drai (more content not included)... Normal [facility] ED Provider Note Emergency Department Encounter [facility] [...] to that sys (more content not included)... [facility] Nursing Noteon 12-01-2023 Nursing Note Pt discharging at this time. All belongings collected. Discharge packet reviewed with all questions answered. Normal [facility] XR Ankle - left 3 Viewson Patient Name: DONTAE PARRA : 1975 Exam Date/Time: 12/01/2023 05:57 Procedure: XR ANKLE 3+ VIEWS LEFT Ordering Provider: THOMAS AKASH Reason For Exam: Trauma HISTORY: Trauma three views left ankle shows no evidence of fracture. Report Dictated on Electronically Signed By: Yony Rogers MD Electronically Signed Date/Time: 12/01/2023 6:08 AM [facility] Yony Rogers MD - 12/01/2023 Patient Name: DONTAE PARRA : 1975 Exam Date/Time: 12/01/2023 05:57 Procedure: XR ANKLE 3+ VIEWS LEFT Ordering Provider: THOMAS AKASH Reason For Exam: Trauma HISTORY: Trauma three views left ankle shows no evidence of fracture. Report Dictated on Electronically Signed By: Yony Rogers MD Electronically Signed Date/Time: 12/01/2023 6:08 AM T [facility] Radiology Study observation (narrative) Lillie Acevedo alth XR Shoulder - right 2 Viewso n 12-01-2023 1. Negative examination of the right shoulder. Report Dictated on Electronically Signed By: Yony Rogers MD Electronically Signed Date/Time: 12/01/2023 6:08 AM T [facility] Patient Name: DONTAE PARRA : 1975 [...] are no significant soft tissue abnormalities. [facility] Yony Rogers MD - 12/01/2023 [...] Signed Date/Time: 12/01/2023 6:08 AM EDT [facility] Radiology Study observation (narrative) [facility] Curtis jessica CBC + DIFFon 11-30-2023 Baso # 0.03 x10EE3/UL Normal 0.00 - 0.10 [facility] Comment on above: Performed By: #### 2 [id number] ####[facility],[address] [place] [address] Basophils/100 WBC (Bld) 0.3 % Normal 0.0 - 2.0 [facility] Comment on above: Performed By: #### 2 91926 ####[facility],[address] [place] [address] CBC + DIFF Normal [facility] Comment on above: Result Comment: CBC- COMPLETE BLOOD COUNT Performed By: #### 2 21458 ####[facility],[address] [place] [address] 78718 EO # 0.04 x10EE3/UL Normal 0.00 - 0.50 [facility] Comment on above: Performed By: #### 2 19553 ####[facility],[address] [place] [address] 01345 Eosinophils/100 WBC (Bld) 0.4 % Normal 0.0 - 7.0 [facility] Comment on above: Performed By: #### 2 57979 ####[facility],[address] [place] [address] Erythrocyte distribution width (RBC) [Ratio] 13.5 % Normal 12.0 - 15.6 [facility] Comment on above: Performed By: #### 2 92468 ####[facility],[address] [place] [address] Hematocrit (Bld) [Volume fraction] 43.5 % Normal 40.0 - 52.0 [facility] Comment on above: Performed By: #### 2 47795 ####[facility],[address] [place] [address] Hemoglobin (Bld) [Mass/Vol] 14.7 g/dL Normal 13.0 - 17.5 [facility] Comment on above: Performed By: #### 2 07413 ####[facility],[address] [place] [address] 89842 Lymph # 1.47 x10EE3/UL Normal 0.80 - 2.80 [facility] Comment on above: Performed By: #### 2 52067 ####[facility],[address] [place] [address] 58738 Lymphocytes/100 WBC (Bld) 13.9 % Low 20 .0 - 45.0 [facility] Comment on above: Performed By: #### 2 64109 ####[facility],[address] [place], [place] [address] MANUAL DIFF N/A Normal [facility] Comment on above: Performed By: #### 2 95594 ####[facility],[address] [place] [address] MCH (RBC) [Entitic mass] 31 pg Normal 27 - 33 [facility] Comment on above: Performed By: #### 2 63171 ####[facility],[address] [place] [address] MCHC 34 X10 3 Normal 32 - 36 [facility] Comment on above: Performed By: #### 2 53404 ####[facility],[address] [place] [address] MCV (RBC) [Entitic vol] 91 fL Normal 81 - 98 [facility] Comment on above: Performed By: #### 2 79694 ####[facility],[address] [place] [address] [place] # 0.70 x10EE3/UL Normal 0.20 - 1.00 [facility] Comment on above: Performed By: #### 2 54123 ####[facility],[address] [place] [address] MONOS % 6.6 % Normal 0.0 - 10.0 [facility] Comment on above: Performed By: #### 2 22170 ####[facility],[address] [place] [address] Morphology [place] (Bld) [Interp] SEE BELOW Normal [facility] Comment on above: Performed By: #### 2 32593 ####[facility],[address] [place] [address] Neut # 8.37 x10EE3/UL High 1.50 - 7.10 [facility] Comment on above: Performed By: #### 2 30417 ####[facility],[address] [place] [address] Neutrophils/100 WBC (Bld) 78.9 % High 46 .0 - 76.0 [facility] Comment on above: Performed By: #### 2 14594 ####[facility],[address] [place] [address] 31221 PLATELET 236 x10EE3/UL Normal 150 - 450 [facility] Comment on above: Performed By: #### 2 63111 ####[facility],[address] [place] [address] 09565 Platelet mean volume (Bld) [Entitic vol] 6.1 fL Low 6.4 - 10.5 [facility] Comment on above: Result Comment: AUTO MATED DIFFERENTIAL Performed By: #### 2 48331 ####[facility],[address] [place] [address] 27743 PLT EST NORMAL Normal [facility] Comment on above: Performed By: #### 2 53869 ####[facility],[address] [place] [address] 82044 RBC 4.78 x 10EE6/UL Normal 4.50 - 6.00 [facility] Comment on above: Performed By: #### 2 43185 ####[facility],[address] [place] [address] 39357 WBC 10.6 x 10EE3/UL Normal 4.5 - 10.8 [facility] Comment on above: Performed By: #### 2 19011 ####[facility],[address] [place] [address] 28196 CMP with eGFRon 11-30-2023 AGE 48 years Normal [facility] Comment on above: Performed By: #### 2 05017 ####[facility],[address] [place] [address] 77372 Albumin [Mass/Vol] 3.7 g/dL Normal 3.4 - 5.0 [facility] Comment on above: Performed By: #### 2 24154 ####[facility],[address] [place] [address] 37727 Albumin/Globulin [Mass ratio] 1.1 {ratio} Normal 0.9 - 1.6 [facility] Comment on above: Performed By: #### 2 20141 ####[facility],[address] [place] [address] 15533 ALK PHOS 91 U/L Normal 46 - 116 [facility] Comment on above: Performed By: #### 2 53877 ####[facility],[address] [place] [address] 13627 ALT [Catalytic activity/Vol] 32 U/L Normal 16 - 63 [facility] Comment on above: Performed By: #### 2 44394 ####[facility],[address] [place] [address] 20666 Anion gap [Moles/Vol] 9 mmol/L Low 10 - 20 [facility] Comment on above: Performed By: #### 2 86080 ####[facility],[address] [place] [address] 02277 AST [Catalytic activity/Vol] 25 U/L Normal 15 - 37 [facility] Comment on above: Performed By: #### 2 77397 ####[facility],[address] [place] [address] 21665 B/C RATIO 13 ratio Normal 0 - 30 [facility] Comment on above: Performed By: #### 2 23699 ####[facility],[address] [place] [address] 83800 Bilirubin [Mass/Vol] 0.6 mg/dL Normal 0.2 - 1.0 [facility] Comment on above: Performed By: #### 2 32905 ####[facility],[address] [place] [address] 41430 Calcium [Mass/Vol] 9.0 mg/dL Normal 8.5 - 10.1 [facility] Comment on above: Performed By: #### 2 94362 ####[facility],[address] [place] [address] 18246 Chloride [Moles/Vol] 105 mmol/L Normal 98 - 107 [facility] Comment on above: Performed By: #### 2 60056 ####[facility],[address] [place] [address] 07212 CMP with eGFR Normal [facility] Comment on above: Result Comment: COMP REHENSIVE METABOLIC PANEL Performed By: #### 2 26173 ####[facility],[address] [place] [address] 36106 CO2 [Moles/Vol] 28.6 mmol/L Normal 21.0 - 32.0 [facility] Comment on above: Performed By: #### 2 24021 ####[facility],[address] [place] [address] 00729 Creatinine [Mass/Vol] 1.40 mg/dL High 0.70 - 1.30 [facility] Comment on above: Performed By: #### 2 92475 ####[facility],[address] [place] [address] 14770 eGFR 54 ML/MINUTE Low 60 - 999 [facility] Comment on above: Performed By: #### 2 46174 ####[facility],[address] [place] [address] 52376 GFR/1.73 sq M.predicted among non-blacks MDRD (S/P/Bld) [Vol rate/Area] mL/min/{1.73_m2} Normal 60 - 999 [facility] Comment on above: Result Comment: ACCO RDING TO THE NATIONAL KIDNEY DISEASE EDUCATION PROGRAM(NKDE), A NORMAL eGFR IS A VALUE GREATER THAN OR EQUAL TO 60 ML/MIN/1.73 SQ METERS. CHRONIC KIDNEY DISEASE: <60mL/MIN/1.73 SQ METERS KIDNEY FAILURE: <15mL/MIN/1.73 SQ METERS THIS TEST SHOULD ONLY BE USED FOR PATIENTS 18 YEARS OF AGE AND OLDER. Performed By: #### 2 21963 ####[facility],[address] [place] [address] 10892 Globulin (S) [Mass/Vol] 3.4 g/dL Normal 1.5 - 3.8 [facility] Comment on above: Performed By: #### 2 85871 ####[facility],[address] [place] [address] 89875 Glucose [Mass/Vol] 100 mg/dL Normal 74 - 106 [facility] Comment on above: Performed By: #### 2 87953 ####[facility],[address] [place] [address] 16055 Potassium [Moles/Vol] 3.8 mmol/L Normal 3.5 - 5.1 [facility] Comment on above: Performed By: #### 2 78468 ####[facility],[address] [place] [address] 43877 Protein [Mass/Vol] 7.1 g/dL Normal 6.4 - 8.2 [facility] Comment on above: Performed By: #### 2 04595 ####[facility],[address] [place] [address] 87570 Sodium [Moles/Vol] 139 mmol/L Normal 136 - 145 [facility] Comment on above: Performed By: #### 2 35449 ####[facility],[address] [place] [address] 16458 Urea nitrogen [Mass/Vol] 18 mg/dL Normal 7 - 18 [facility] Comment on above: Performed By: #### 2 34948 ####[facility],[address] [place] [address] BRAIN W/O CONTRAST 11-19 CT BRAIN W/O CONTRAST [place] [address] Patient: DONTAE PARRA Phone#: : 1975 Age: 48 Gender: M Pt. Type: ER Account: [id number] Location: [facility] Ordering: MUMTAZ HOLLEY Exam Date: 11/30/2023/20:55 Family Phys: Charge Code: [id number] Physician: [place] Order #: [id number] Dose#: 52.3 PROCEDURE: CT BRAIN WITHOUT CONTRAST [...] Londono MD on 12/02/2023 at 18:31 Normal [facility] CT CERVICAL W/O CONTRASTon 1 CT CERVICAL W/O CONTRAST [place] [address] Patient: DONTAE PARRA Phone#: : 1975 Age: 48 Gender: M Pt. Type: ER Account: [id number] Location: [facility] Ordering: MUMTAZ HOLLEY Exam Date: 11/30/2023/20:55 Family Phys: Charge Code: [id number] Physician: [place] Order #: [id number] Dose#: 14.7 PROCEDURE: CT CERVICAL WITHOUT CONTRAST [...] Londono MD on 12/02/2023 at 18:48 Normal [facility] CT CHEST/ABD/PELVIS C+on CT CHEST/ABD/PELVIS C+ [place] [address] Patient: DONTAE PARRA Phone#: : 1975 Age: 48 Gender: M Pt. Type: ER Account: [id number] Location: [facility] Ordering: MUMTAZ HOLLEY Exam Date: 11/30/2023/21:02 Family Phys: Charge Code: [id number] Physician: [place] Order #: [id number] Dose#: 31.4 PROCEDURE: CT CHEST/ABD/PELVIS W COMPARISON: [...] 48 Gender: M Pt. Type: ER Account: [id number] Location: 052 Ordering: MUMTAZ HOLLEY Exam Date: 11/30/2023/21:02 Family Phys: Charge Code: [id number] Physician: [place] Order #: [id number] Dose#: [id number] etiology. At the L3-4 level [...] Londono MD on 12/03/2023 at 11:03 Normal [facility] LIPASEon 11-30-2023 Lipase [Catalytic activity/Vol] 26.0 U/L Normal 15.0 - 78.0 [facility] Comment on above: Result Comment: *PLE ASE NOTE THAT RANGES FOR LIPASE HAVE CHANGED OF 02/16/23 DUE TO AN ASSAY UPDATE BY THE VALUE STREAM LEADER.THE NEW ASSAY RANGE IS 6-250 U/L, WITH A REFERENCE RANGE OF 16-77 U/L. Performed By: #### 2 [id number] #### [place] [address] TROPONINon 11-30-2023 HS TROPONIN <4.0 Normal 0.0 - 76.2 [facility] Comment on above: Performed By: #### 2 13640 #### [place] [address] Absolute lymphocyte countOrd ered By: Jose R Schmitz on 01-24-2023 Lymphocytes Auto (Unsp spec) [#/Vol] 2.62 10*3/uL 0.83-4.51 [facility] Basophil percentageOrdered B y: Jose R Schmitz on 01-24-2023 Basophils/100 WBC (Bld) 0.4 % 0-1 [facility] Bilirubin [Mass/Vol] 0.50 mg/dL 0.20-1.00 [facility] Comment on above: For patients on eltr ombopag therapy, use of Dimension [place]win TBIL is not recommended. Chloride [Moles/Vol] 105 mmol/L 98-107 [facility] Eosinophils/100 WBC (Bld) 2.0 % 0-5 [facility] Glucose [Mass/Vol] 119 mg/dL 74-106 [facility] Comment on above: Fasting Glucose resu lt from 100 to 125 mg/dL suggests IMPAIRED HOMEOSTASIS per A.D.A. criteria. Neutrophils (Bld) [#/Vol] 7.3 10*3/uL 2.0-7.7 [facility] Neutrophils/100 WBC (Bld) 66.4 % 47-70 [facility] Potassium [Moles/Vol] 4.1 mmol/L 3.5-5.1 [facility] Comment on above: Moderate Hemolysis, Result may be falsely increased. Protein [Mass/Vol] 7.6 g/dL 6.4-8.2 [facility] Sodium [Moles/Vol] 138 mmol/L 136-145 [facility] WBC (Bld) [#/Vol] 11.0 10*3/uL 4.4-11.0 [facility] Blood erythrocytes count (nu mber/volume)Ordered By: Jose R Schmitz on 01-24-2023 RBC (Bld) [#/Vol] 4.83 10*6/uL 4.6-6.2 [facility] Blood hemoglobin measurement (mass/volume)Ordered By: Jose R Schmitz on 01-24-2023 Hemoglobin (Bld) [Mass/Vol] 14.9 g/dL 13.0-16.5 [facility] Blood lymphocytes/100 leukoc ytesOrdered By: Jose R Schmitz on 01-24-2023 Lymphocytes/100 WBC (Bld) 23.9 % 19-41 [facility] Blood manual differential co mment interpretation (narrative result)Ordered By: Jose R Schmitz on 01-24-2023 Manual differential comment Nakul (Bld) [Interp] SCANNED [facility] Blood monocytes/100 leukocyt esOrdered By: Jose R Schmitz on 01-24-2023 Monocytes/100 WBC (Bld) 6.8 % 0-10 [facility] Blood platelet adequacy dete ction by light microscopyOrdered By: Jose R Schmitz on 01-24-2023 Platelets LM Ql (Bld) ADEQUATE ADEQ [facility] Blood platelet mean volumeOr dered By: Jose R Schmitz on 01-24-2023 Platelet mean volume (Bld) [Entitic vol] 9.4 fL 6.2-12.0 [facility] Determination of erythrocyte mean corpuscular volume (MCV)Ordered By: Jose R Schmitz on 01-24-2023 MCV (RBC) [Entitic vol] 90.5 fL 80-94 [facility] Direct bilirubinOrdered By: Jose R Schmitz on 01-24-2023 Bilirubin.direct [Mass/Vol] 0.07 mg/dL 0.00-0.30 [facility] Hematocrit Auto (Bld) [Volum e fraction]Ordered By: Jose R Schmitz on 01-24-2023 Hematocrit (Bld) [Volume fraction] 43.7 % 40-54 [facility] INR in Blood by Coagulation assayOrdered By: Jose R Schmitz on 01-24-2023 INR Coag (Bld) [Relative time] 0.9 {INR} [facility] Laboratory - Chemistry and C hemistry - challengeOrdered By: Jose R Schmitz on 01-24-2023 ALP [Catalytic activity/Vol] 96 U/L 45-117 [facility] ALT [Catalytic activity/Vol] 21 U/L 16-61 [facility] CO2 [Moles/Vol] 25.0 mmol/L 21.0-32.0 [facility] Globulin (S) [Mass/Vol] 4.0 g/dL 2.2-4.2 [facility] Lipase [Catalytic activity/Vol] 38 U/L 13-75 [facility] Comment on above: Please note:LIPASE r evised reference range effective 22. New Lipase methodology. Expected to produce lower values than the previous assay method. NEW Reference Range: 13 - 75 U/L Urea nitrogen/Creatinine [Mass ratio] 15.5 mg/mg 10-20 [facility] - CoagulationOrde red By: Jose R Schmitz on 01-24-2023 aPTT Coag (Bld) [Time] 24.4 s 24.1-36.2 [facility] PT Coag (PPP) [Time] 12.0 s 11.7-14.9 [facility] Laboratory - Hematology and Cell countsOrdered By: Jose R Schmitz on 01-24-2023 Erythrocyte distribution width (RBC) [Entitic vol] 42.6 fL 35.1-43.9 [facility] Erythrocyte distribution width (RBC) [Ratio] 13.0 % 11.6-14.6 [facility] Immature granulocytes/100 WBC (Bld) 0.500 % 0.0-0.9 [facility] Comment on above: IG% - Immature Granu locytes (promyelocytes, myelocytes and metamyelocytes) > 1% indicates that a LEFT SHIFT is Present. MCH (RBC) [Entitic mass] 30.8 pg 27.0-32.0 [facility] Nucleated RBC/100 WBC (Bld) [Ratio] 0 % 0-5 [facility] MCHC Auto (RBC) [Mass/Vol]Or dered By: Jose R Schmitz on 01-24-2023 MCHC (RBC) [Mass/Vol] 34.1 g/dL 32-36 [facility] No Panel InformationOrdered By: Jose R Schmitz on 01-24-2023 Estimated Creatinine Clearance Calc 85.48 ml/min [facility] Estimated GFR (MDRD) Amer 86 mL/min >60 [facility] Comment on above: GFR Calc Estimated GFR (MDRD) Non-Af Amer 71 mL/min >60 [facility] Comment on above: Non- GFR Calc Troponin I High Sensitivity 4 pg/mL 3.0-78.0 [facility] Comment on above: Please Note: New Rajni t Units and Gender Specific Reference Ranges. For more information see Policy Stat Procedure [place] High Sensitivity Troponin (TNIH) and attachments. Platelets bldOrdered By: Alireza Schmitz on 01-24-2023 Platelets (Bld) [#/Vol] 274 10*3/uL 150-450 [facility] Serum or plasma albumin sherwin urement (mass/volume)Ordered By: Jose R Schmitz on 01-24-2023 Albumin [Mass/Vol] 3.6 g/dL 3.2-5.0 [facility] Serum or plasma calcium sherwin urement (mass/volume)Ordered By: Jose R Schmitz on 01-24-2023 Calcium [Mass/Vol] 9.0 mg/dL 8.5-10.1 [facility] Serum or plasma creatinine m easurement (mass/volume)Ordered By: Jose R Schmitz on 01-24-2023 Creatinine [Mass/Vol] 1.16 mg/dL 0.70-1.30 [facility] Comment on above: The validity of the calculated GFR & GFRAA in patients over 70 years has not been determined. Clinical correlation is essential. Serum or plasma urea nitroge n measurement (mass/volume)Ordered By: Jose R Schmitz on 01-24-2023 Urea nitrogen [Mass/Vol] 18 mg/dL 7-18 [facility] Thin prep Papanicolaou smear with manual screeningOrdered By: Jose R Schmitz on 01-24-2023 Thin prep Papanicolaou smear with manual screening 22 U/L 15-37 [facility] Comment on above: Moderate Hemolysis, Result may be falsely increased. Thin prep Papanicolaou smear with manual screening 8 5-15 [facility] Absolute lymphocyte countOrd ered By: Elda Villegas on 01-22-2023 Lymphocytes Auto (Unsp spec) [#/Vol] 2.43 10*3/uL 0.83-4.51 [facility] Basophil percentageOrdered B y: Elda Villegas on 01-22-2023 Amylase [Catalytic activity/Vol] 53 U/L 25-115 [facility] Basophils/100 WBC (Bld) 0.4 % 0-1 [facility] Chloride [Moles/Vol] 108 mmol/L 98-107 [facility] Eosinophils/100 WBC (Bld) 2.3 % 0-5 [facility] Glucose [Mass/Vol] 85 mg/dL 74-106 [facility] Neutrophils (Bld) [#/Vol] 7.4 10*3/uL 2.0-7.7 [facility] Neutrophils/100 WBC (Bld) 66.5 % 47-70 [facility] Potassium [Moles/Vol] 3.9 mmol/L 3.5-5.1 [facility] Sodium [Moles/Vol] 140 mmol/L 136-145 [facility] WBC (Bld) [#/Vol] 11.1 10*3/uL 4.4-11.0 [facility] Blood erythrocytes count (nu mber/volume)Ordered By: Elda Villegas on 01-22-2023 RBC (Bld) [#/Vol] 4.81 10*6/uL 4.6-6.2 [facility] Blood hemoglobin measurement (mass/volume)Ordered By: Elda Villegas on 01-22-2023 Hemoglobin (Bld) [Mass/Vol] 14.8 g/dL 13.0-16.5 [facility] Blood lymphocytes/100 leukoc ytesOrdered By: Elda Villegas on 01-22-2023 Lymphocytes/100 WBC (Bld) 21.8 % 19-41 [facility] Blood monocytes/100 leukocyt esOrdered By: Elda Villegas on 01-22-2023 Monocytes/100 WBC (Bld) 8.6 % 0-10 [facility] Blood platelet mean volumeOr dered By: Elda Villegas on 01-22-2023 Platelet mean volume (Bld) [Entitic vol] 8.0 fL 6.2-12.0 [facility] Determination of erythrocyte mean corpuscular volume (MCV)Ordered By: Elda Villegas on 01-22-2023 MCV (RBC) [Entitic vol] 91.3 fL 80-94 [facility] Hematocrit Auto (Bld) [Volum e fraction]Ordered By: Elda Villegas on 01-22-2023 Hematocrit (Bld) [Volume fraction] 43.9 % 40-54 [facility] - Chemistry and C hemistry - challengeOrdered By: Elda Villegas on 01-22-2023 CO2 [Moles/Vol] 27.0 mmol/L 21.0-32.0 [facility] Lipase [Catalytic activity/Vol] 33 U/L 13-75 [facility] Comment on above: Please note:LIPASE r evised reference range effective 22. New Lipase methodology. Expected to produce lower values than the previous assay method. NEW Reference Range: 13 - 75 U/L Magnesium [Mass/Vol] 2.2 mg/dL 1.6-2.6 [facility] Natriuretic peptide B (Bld) [Mass/Vol] 11.8 pg/mL 0-100 [facility] Urea nitrogen/Creatinine [Mass ratio] 12.4 mg/mg 10-20 [facility] - Hematology and Cell countsOrdered By: Elda Villegas on 01-22-2023 Erythrocyte distribution width (RBC) [Entitic vol] 44.1 fL 35.1-43.9 [facility] Erythrocyte distribution width (RBC) [Ratio] 13.2 % 11.6-14.6 [facility] Immature granulocytes/100 WBC (Bld) 0.400 % 0.0-0.9 [facility] Comment on above: IG% - Immature Granu locytes (promyelocytes, myelocytes and metamyelocytes) > 1% indicates that a LEFT SHIFT is Present. MCH (RBC) [Entitic mass] 30.8 pg 27.0-32.0 [facility] Nucleated RBC/100 WBC (Bld) [Ratio] 0 % 0-5 [facility] MCHC Auto (RBC) [Mass/Vol]Or dered By: Elda Villegas on 01-22-2023 MCHC (RBC) [Mass/Vol] 33.7 g/dL 32-36 [facility] No Panel InformationOrdered By: Elda Villegas on 01-22-2023 D-Dimer Quantitative (PE/DVT) < 0.27 FEU/ug/m 0.27-0.49 [facility] Comment on above: NORMAL D-Dimer level (<0.50) indicates no DVT or PE. Estimated GFR (MDRD) Amer 89 mL/min >60 [facility] Comment on above: GFR Calc Estimated GFR (MDRD) Non-Af Amer 73 mL/min >60 [facility] Comment on above: Non- GFR Calc Troponin I High Sensitivity 7 pg/mL 3.0-78.0 [facility] Comment on above: Please Note: New Rajni t Units and Gender Specific Reference Ranges. For more information see Policy Stat Procedure [facility] High Sensitivity Troponin (TNIH) and attachments. Platelets bldOrdered By: Jatin Villegas on 01-22-2023 Platelets (Bld) [#/Vol] 301 10*3/uL 150-450 [facility] Serum or plasma calcium sherwin urement (mass/volume)Ordered By: Elda Villegas on 01-22-2023 Calcium [Mass/Vol] 9.2 mg/dL 8.5-10.1 [facility] Serum or plasma creatinine m easurement (mass/volume)Ordered By: Elda Villegas on 01-22-2023 Creatinine [Mass/Vol] 1.13 mg/dL 0.70-1.30 [facility] Comment on above: The validity of the calculated GFR & GFRAA in patients over 70 years has not been determined. Clinical correlation is essential. Serum or plasma urea nitroge n measurement (mass/volume)Ordered By: Elda Villegas on 01-22-2023 Urea nitrogen [Mass/Vol] 14 mg/dL 7-18 [facility] Thin prep Papanicolaou smear with manual screeningOrdered By: Elda Villegas on 01-22-2023 Thin prep Papanicolaou smear with manual screening 5 5-15 [facility] Alternaria alternata IgE ser umOrdered By: Frances Fuchs on 10-05-2022 A. alternata IgE Qn (S) <0.10 kU/L Class 0 [facility] Atypical perinuclear antineu trophil cytoplasmic antibodies measurementOrdered By: Frances Fuchs on 10-05-2022 Neutrophil cytoplasmic Ab.perinuclear.atypical IF (S) [Titer] <1:20 titer Neg:<1:20 [facility] Comment on above: The atypical pANCA p attern has been observed in asignificant percentage of patients with ulcerative colitis,primary sclerosing cholangitis and autoimmune hepatitis. Basophil percentageOrdered B y: Frances Fuchs on 10-05-2022 WBC (Bld) [#/Vol] 8.6 10*3/uL 4.4-11.0 [facility] Blood erythrocytes count (nu mber/volume)Ordered By: Frances Fuchs on 10-05-2022 RBC (Bld) [#/Vol] 4.93 10*6/uL 4.6-6.2 [facility] Blood hemoglobin measurement (mass/volume)Ordered By: Frances Fuchs on 10-05-2022 Hemoglobin (Bld) [Mass/Vol] 15.8 g/dL 13.0-16.5 [facility] Blood platelet mean volumeOr dered By: Frances Fuchs on 10-05-2022 Platelet mean volume (Bld) [Entitic vol] 8.1 fL 6.2-12.0 [facility] Determination of erythrocyte mean corpuscular volume (MCV)Ordered By: Frances Fuchs on 10-05-2022 MCV (RBC) [Entitic vol] 90.9 fL 80-94 [facility] Gram stain for investigation of transfusion reactionOrdered By: Frances Fuchs on 10-05-2022 Microscopic observation Gram stain Nom (Unsp spec) [facility] Hematocrit Auto (Bld) [Volum e fraction]Ordered By: Frances Fuchs on 10-05-2022 Hematocrit (Bld) [Volume fraction] 44.8 % 40-54 [facility] - Hematology and Cell countsOrdered By: Frances Fuchs on 10-05-2022 Erythrocyte distribution width (RBC) [Entitic vol] 44.8 fL 35.1-43.9 [facility] Erythrocyte distribution width (RBC) [Ratio] 13.5 % 11.6-14.6 [facility] MCH (RBC) [Entitic mass] 32.0 pg 27.0-32.0 [facility] Laboratory - Miscellaneous t estsOrdered By: Frances Fuchs on 10-05-2022 Service comment (Unsp spec) [Interp] Comment . [facility] Comment on above: Levels of Specific [...] 10-05-2022 MCHC (RBC) [Mass/Vol] 35.3 g/dL 32-36 [facility] Microbial respiratory cultur eOrdered By: Frances Fuchs on 10-05-2022 Bacteria identified Respiratory culture Nom (Unsp spec) [facility] No Panel InformationOrdered By: Frances Fuchs on 10-05-2022 Common Ragweed (Short) Allergen <0.10 kU/L Class 0 [facility] Bahraini Plantain Allergen (RAST) <0.10 kU/L Class 0 [facility] Immunoglobulin E 22 IU/mL 6-495 [facility] Comment on above: Performed at: [address] [id number] Director: Trent Live PhD, Phone: [phone] at: [facility] [id number] Director: Court hTorpe MD, Phone: [phone] Mouse Urine Allergen IgE Antibody <0.10 kU/L Class 0 [facility] Comment on above: Performed at: - [facility] [address] [id number] Director: Court Thorpe MD, Phone: [phone] Platelets bldOrdered By: Kristin Fuchs on 10-05-2022 Platelets (Bld) [#/Vol] 279 10*3/uL 150-450 [facility] Serum Aspergillus flavus ant ibody detection by immunodiffusionOrdered By: Frances Fuchs on 10-05-2022 A. flavus Ab Immune diff Ql (S) Negative Neg:<1:1 [facility] Serum Aspergillus fumigatus antibody detection by immunodiffusionOrdered By: Frances Fuchs on 10-05-2022 A. fumigatus Ab Immune diff Ql (S) Negative Neg:<1:1 [facility] Serum Aspergillus niger anti body detection by immunodiffusionOrdered By: Frances Fuchs on 10-05-2022 A. niger Ab Immune diff Ql (S) Negative Neg:<1:1 [facility] Serum Bermuda grass IgE anti body assay (units/volume)Ordered By: Frances Fuchs on 10-05-2022 Bermuda grass IgE Qn (S) <0.10 kU/L Class 0 [facility] Serum Dermatophagoides farin ae specific IgE antibody assay (units/volume)Ordered By: Frances Fuchs on 10-05-2022 Gibraltarian house dust mite IgE Qn (S) <0.10 kU/L Class 0 [facility] Serum house dust mi te IgE antibody assay (units/volume)Ordered By: Frances Fuchs on 10-05-2022 house dust mite IgE Qn (S) <0.10 kU/L Class 0 [facility] Serum [place] blue grass Ig E antibody assay (units/volume)Ordered By: Frances Fuchs on 10-05-2022 [place] blue grass IgE Qn (S) <0.10 kU/L Class 0 [facility] Serum cat dander IgE antibod y assay (units/volume)Ordered By: Frances Fuchs on 10-05-2022 Cat dander IgE Qn (S) <0.10 kU/L Class 0 [facility] Serum classic neutrophil cyt oplasmic antibody assay (units/volume)Ordered By: Frances Fuchs on 10-05-2022 Neutrophil cytoplasmic Ab.classic Qn (S) <1:20 titer Neg:<1:20 [facility] Serum dog epithelium IgE ant ibody assay (units/volume)Ordered By: Frances Fuchs on 10-05-2022 Dog epithelium IgE Qn (S) <0.10 kU/L Class 0 [facility] Serum perinuclear neutrophil cytoplasmic antibody titer by immunofluorescenceOrdered By: Frances Fuchs on 10-05-2022 Neutrophil cytoplasmic Ab.perinuclear IF (S) [Titer] <1:20 titer Neg:<1:20 [facility] Comment on above: The presence of posi tive fluorescence exhibiting P-ANCA orC-ANCA patterns alone is not specific for the diagnosis ofWegener's Granulomatosis (WG) or microscopic polyangiitis.Decisions about treatment should not be based solely onANCA IFA results. The International ANCA Group Consensusrecommends follow up testing of positive sera with both WY-3 and MPO-ANCA enzyme immunoassays. As many as 5% serumsamples are positive only by EIA. Ref. AM J Clin Dwncmd9821;111:507-513. Serum white elm IgE antibody assay (units/volume)Ordered By: Frances Fuchs on 10-05-2022 [place] IgE Qn (S) <0.10 kU/L Class 0 [facility] Serum white oak IgE antibody assay (units/volume)Ordered By: Frances Fuchs on 10-05-2022 [place] IgE Qn (S) <0.10 kU/L Class 0 [facility] Basophil percentageOrdered B y: Dr. Olsen on 07-12-2022 Chloride [Moles/Vol] 106 mmol/L 98-107 [facility] Glucose [Mass/Vol] 98 mg/dL 74-106 [facility] Potassium [Moles/Vol] 3.4 mmol/L 3.5-5.1 [facility] Sodium [Moles/Vol] 140 mmol/L 136-145 [facility] Laboratory - Chemistry and C hemistry - challengeOrdered By: Dr. Olsen on 07-12-2022 CO2 [Moles/Vol] 27.0 mmol/L 21.0-32.0 [facility] Urea nitrogen/Creatinine [Mass ratio] 10.0 mg/mg 10-20 [facility] No Panel InformationOrdered By: Dr. Olsen on 07-12-2022 Estimated GFR (MDRD) Amer 83 mL/min >60 [facility] Comment on above: GFR Calc Estimated GFR (MDRD) Non-Af Amer 69 mL/min >60 [facility] Comment on above: Non- GFR Calc Serum or plasma calcium sherwin urement (mass/volume)Ordered By: Dr. Olsen on 07-12-2022 Calcium [Mass/Vol] 9.5 mg/dL 8.5-10.1 [facility] Serum or plasma creatinine m easurement (mass/volume)Ordered By: Dr. Olsen on 07-12-2022 Creatinine [Mass/Vol] 1.20 mg/dL 0.70-1.30 [facility] Comment on above: The validity of the calculated GFR & GFRAA in patients over 70 years has not been determined. Clinical correlation is essential. Serum or plasma urea nitroge n measurement (mass/volume)Ordered By: Dr. Olsen on 07-12-2022 Urea nitrogen [Mass/Vol] 12 mg/dL 7-18 [facility] Thin prep Papanicolaou smear with manual screeningOrdered By: Dr. Olsen on 07-12-2022 Thin prep Papanicolaou smear with manual screening 7 - [facility] Absolute lymphocyte countOrd ered By: Dr. Ndiaye on 07-10-2022 Lymphocytes Auto (Unsp spec) [#/Vol] 0.70 10*3/uL 0.83-4.51 [facility] Basophil percentageOrdered B y: Dr. Ndiaye on 07-10-2022 Basophils/100 WBC (Bld) 0.3 % 0-1 [facility] Bilirubin [Mass/Vol] 1.30 mg/dL 0.20-1.00 [facility] Comment on above: For patients on eltr ombopag therapy, use of Dimension [place]win TBIL is not recommended. Chloride [Moles/Vol] 102 mmol/L 98-107 [facility] Eosinophils/100 WBC (Bld) 0.7 % 0-5 [facility] Glucose [Mass/Vol] 106 mg/dL 74-106 [facility] Comment on above: Fasting Glucose resu lt from 100 to 125 mg/dL suggests IMPAIRED HOMEOSTASIS per A.D.A. criteria. Neutrophils (Bld) [#/Vol] 7.6 10*3/uL 2.0-7.7 [facility] Neutrophils/100 WBC (Bld) 85.5 % 47-70 [facility] Potassium [Moles/Vol] 3.5 mmol/L 3.5-5.1 [facility] Protein [Mass/Vol] 7.5 g/dL 6.4-8.2 [facility] Sodium [Moles/Vol] 136 mmol/L 136-145 [facility] WBC (Bld) [#/Vol] 8.9 10*3/uL 4.4-11.0 [facility] Blood erythrocytes count (nu mber/volume)Ordered By: Dr. Ndiaye on 07-10-2022 RBC (Bld) [#/Vol] 5.13 10*6/uL 4.6-6.2 [facility] Blood hemoglobin measurement (mass/volume)Ordered By: Dr. Ndiaye on 07-10-2022 Hemoglobin (Bld) [Mass/Vol] 15.8 g/dL 13.0-16.5 [facility] Blood lymphocytes/100 leukoc ytesOrdered By: Dr. Ndiaye on 07-10-2022 Lymphocytes/100 WBC (Bld) 7.9 % 19-41 [facility] Blood monocytes/100 leukocyt esOrdered By: Dr. Ndiaye on 07-10-2022 Monocytes/100 WBC (Bld) 5.1 % 0-10 [facility] Blood platelet mean volumeOr dered By: Dr. Ndiaye on 07-10-2022 Platelet mean volume (Bld) [Entitic vol] 8.2 fL 6.2-12.0 [facility] Determination of erythrocyte mean corpuscular volume (MCV)Ordered By: Dr. Ndiaye on 07-10-2022 MCV (RBC) [Entitic vol] 90.6 fL 80-94 [facility] Direct bilirubinOrdered By: Dr. Ndiaye on 07-10-2022 Bilirubin.direct [Mass/Vol] 0.25 mg/dL 0.00-0.30 [facility] Hematocrit Auto (Bld) [Volum e fraction]Ordered By: Dr. Ndiaye on 07-10-2022 Hematocrit (Bld) [Volume fraction] 46.5 % 40-54 [facility] Laboratory - Chemistry and C hemistry - challengeOrdered By: Dr. Ndiaye on 07-10-2022 ALP [Catalytic activity/Vol] 94 U/L 45-117 [facility] ALT [Catalytic activity/Vol] 32 U/L 16-61 [facility] CO2 [Moles/Vol] 27.0 mmol/L 21.0-32.0 [facility] Globulin (S) [Mass/Vol] 3.8 g/dL 2.2-4.2 [facility] Lipase [Catalytic activity/Vol] 25 U/L 13-75 [facility] Comment on above: Please note:LIPASE r evised reference range effective 22. New Lipase methodology. Expected to produce lower values than the previous assay method. NEW Reference Range: 13 - 75 U/L Urea nitrogen/Creatinine [Mass ratio] 14.0 mg/mg 10-20 [facility] - Hematology and Cell countsOrdered By: Dr. Ndiaye on 07-10-2022 Erythrocyte distribution width (RBC) [Entitic vol] 45.4 fL 35.1-43.9 [facility] Erythrocyte distribution width (RBC) [Ratio] 13.7 % 11.6-14.6 [facility] Immature granulocytes/100 WBC (Bld) 0.500 % 0.0-0.9 [facility] Comment on above: IG% - Immature Granu locytes (promyelocytes, myelocytes and metamyelocytes) > 1% indicates that a LEFT SHIFT is Present. MCH (RBC) [Entitic mass] 30.8 pg 27.0-32.0 [facility] Nucleated RBC/100 WBC (Bld) [Ratio] 0 % 0-5 [facility] MCHC Auto (RBC) [Mass/Vol]Or dered By: Dr. Ndiaye on 07-10-2022 MCHC (RBC) [Mass/Vol] 34.0 g/dL 32-36 [facility] No Panel InformationOrdered By: Dr. Ndiaye on 07-10-2022 Estimated Creatinine Clearance Calc 81.95 ml/min [facility] Estimated GFR (MDRD) Amer 82 mL/min >60 [facility] Comment on above: GFR Calc Estimated GFR (MDRD) Non-Af Amer 68 mL/min >60 [facility] Comment on above: Non- GFR Calc Troponin I High Sensitivity 3 pg/mL 3.0-78.0 [facility] Comment on above: Please Note: New Rajni t Units and Gender Specific Reference Ranges. For more information see Policy Stat Procedure [facility] High Sensitivity Troponin (TNIH) and attachments. Platelets bldOrdered By: Dr. Ndiaye on 07-10-2022 Platelets (Bld) [#/Vol] 251 10*3/uL 150-450 [facility] Serum or plasma albumin sherwin urement (mass/volume)Ordered By: Dr. Ndiaey on 07-10-2022 Albumin [Mass/Vol] 3.7 g/dL 3.2-5.0 [facility] Serum or plasma calcium sherwin urement (mass/volume)Ordered By: Dr. Nidaye on 07-10-2022 Calcium [Mass/Vol] 8.8 mg/dL 8.5-10.1 [facility] Serum or plasma creatinine m easurement (mass/volume)Ordered By: Dr. Ndiaye on 07-10-2022 Creatinine [Mass/Vol] 1.21 mg/dL 0.70-1.30 [facility] Comment on above: The validity of the calculated GFR & GFRAA in patients over 70 years has not been determined. Clinical correlation is essential. Serum or plasma urea nitroge n measurement (mass/volume)Ordered By: Dr. Ndiaye on 07-10-2022 Urea nitrogen [Mass/Vol] 17 mg/dL 7-18 [facility] Thin prep Papanicolaou smear with manual screeningOrdered By: Dr. Ndiaye on 07-10-2022 Thin prep Papanicolaou smear with manual screening 19 U/L 15-37 [facility] Thin prep Papanicolaou smear with manual screening 7 5-15 [facility] Basophil percentageOrdered B y: Dr. Boyd on 06-16-2022 Creatinine [Mass/Vol] 1.0 mg/dL 0.70-1.30 [facility] No Panel InformationOrdered By: Dr. Boyd on 04-28-2023 Bedside Estimated GFR (eGFR) > 60.0000 mL/min >60 [facility] .Auto Diffon 02-01-2022 Basophil, Absolute 0.1 10 3/mcL Normal 0.0-0.3 [facility] ([place]) Comment on above: Performed By: #### P RO, GFR, BMP #### [address] [address] Basophils/100 WBC (Bld) 0.5 % Normal 0.0-2.5 A [facility] ([place]) Comment on above: Performed By: #### P RO, GFR, BMP #### [address] [address] Eosinophil, Absolute 0.3 10 3/mcL Normal 0.0-0.7 [facility] ([place]) Comment on above: Performed By: #### P RO, GFR, BMP #### [address] [address] Eosinophils/100 WBC (Bld) 2.9 % Normal 0.0-6.0 [facility] ([place]) Comment on above: Performed By: #### P RO, GFR, BMP #### [address] [address] Lymphocyte, Absolute 1.9 10 3/mcL Normal 0.9-4.3 [facility] ([place]) Comment on above: Performed By: #### P RO, GFR, BMP #### [address] [address] Lymphocytes/100 WBC (Bld) 18.5 % Low 20.0-40.0 [facility] ([place]) Comment on above: Performed By: #### P RO, GFR, BMP #### [address] [address] Monocyte, Absolute 0.8 10 3/mcL Normal 0.1-1.4 [facility] ([place]) Comment on above: Performed By: #### P RO, GFR, BMP #### [address] [address] Monocytes/100 WBC (Bld) 8.0 % Normal 2.0-13.0 A [facility] ([place]) Comment on above: Performed By: #### P RO, GFR, BMP #### [address] [address] Neutrophils/100 WBC (Bld) 70.1 % Normal 50.0-75.0 [facility] ([place]) Comment on above: Performed By: #### P RO, GFR, BMP #### [address] [address] .GFRon 02-01-2022 GFR Non- >60 Normal [facility] ([place]) Comment on above: Result Comment: GFR Population [...] By: #### P RO, GFR, BMP #### [address] [address] GFR >60 Normal [facility] ([place]) Comment on above: Result Comment: GFR Population [...] By: #### P RO, GFR, BMP #### [address] [address] .NEUABSon 02-01-2022 Neutrophil, Absolute 7.1 10 3/mcL Normal 2.3-8.1 [facility] ([place]) Comment on above: Performed By: #### P RO, GFR, BMP #### [address] [address] BMPon 02-01-2022 BUN/Creatinine Ratio 8.7 ratio Low 10.0-22.0 [facility] ([place]) Comment on above: Performed By: #### P RO, GFR, BMP #### [address] [address] Calcium [Mass/Vol] 10.0 mg/dL Normal 8.7-10.4 [facility] ([place]) Comment on above: Performed By: #### P RO, GFR, BMP #### [address] [address] Chloride [Moles/Vol] 107 mmol/L Normal 98-110 [facility] ([place]) Comment on above: Performed By: #### P RO, GFR, BMP #### [place] [address] CO2 [Moles/Vol] 29 mmol/L Normal 22-32 [facility] ([place]) Comment on above: Performed By: #### P RO, GFR, BMP #### [place] [address] Creatinine [Mass/Vol] 1.04 mg/dL Normal 0.60-1.40 [facility] ([place]) Comment on above: Performed By: #### P RO, GFR, BMP #### [address] [address] Electrolyte Balance 1.0 mEq/L Low 4.0-15.0 [facility] ([place]) Comment on above: Performed By: #### P RO, GFR, BMP #### [place] [id number] Glucose [Mass/Vol] 109 mg/dL Normal 70-110 [facility] ([place]) Comment on above: Performed By: #### P RO, GFR, BMP #### [address] [address] Potassium [Moles/Vol] 4.3 mmol/L Normal 3.5-5.0 [facility] ([place]) Comment on above: Performed By: #### P RO, GFR, BMP #### [address] [address] Sodium [Moles/Vol] 137 mmol/L Normal 136-145 [facility] ([place]) Comment on above: Performed By: #### P RO, GFR, BMP #### [place] [address] Urea nitrogen [Mass/Vol] 9.0 mg/dL Normal 8.0-22.0 [facility] ([place]) Comment on above: Performed By: #### P RO, GFR, BMP #### [place] [id number] CBCon 02-01-2022 Erythrocyte distribution width (RBC) [Ratio] 13.7 % Normal 11.5-15.5 [facility] ([place]) Comment on above: Performed By: #### P RO, GFR, BMP #### [place] [address] Hematocrit (Bld) [Volume fraction] 41.4 % Normal 40.0-52.0 [facility] ([place]) Comment on above: Performed By: #### P RO, GFR, BMP #### [place] [address] Hgb 14.4 G/dL Normal 13.0-17.5 [facility] ([place]) Comment on above: Performed By: #### P RO, GFR, BMP #### [address] [address] MCH (RBC) [Entitic mass] 31.4 pg Normal 27.0-33.0 [facility] ([place]) Comment on above: Performed By: #### P RO, GFR, BMP #### [place] [id number] MCHC 34.7 G/dL Normal 32.0-36.0 [facility] ([place]) Comment on above: Performed By: #### P RO, GFR, BMP #### [address] [address] MCV (RBC) [Entitic vol] 90.6 fL Normal 81.0-100.0 A [facility] ([place]) Comment on above: Performed By: #### P RO, GFR, BMP #### [address] [address] Platelet 295 10 3/mcL Normal 150-450 [facility] ([place]) Comment on above: Performed By: #### P RO, GFR, BMP #### [address] [address] Platelet mean volume (Bld) [Entitic vol] 6.5 fL Normal 6.4-10.5 [facility] ([place]) Comment on above: Performed By: #### P RO, GFR, BMP #### [address] [address] RBC 4.57 10 6/mcL Normal 4.50-6.00 [facility] ([place]) Comment on above: Performed By: #### P RO, GFR, BMP #### [address] [address] WBC 10.2 10 3/mcL Normal 4.5-10.8 [facility] ([place]) Comment on above: Performed By: #### P RO, GFR, BMP #### [address] [address] Histoplasma Galactomannan AG on 02-01-2022 Histoplasma galacto source Bronchial wash Normal () [facility] Comment on above: Performed By: #### H ISTO GAL #### [facility] [address] [place], [place] [address] Histoplasma galactomannan AG 0.80 ng/mL Abnormal () [facility] Comment on above: Result Comment: Refe rence Interval: None Detected Reportable Range: Positive Results reported in ng/mL from 0.20 ng/mL to 20.00 ng/mL Positive results above 20.00 ng/mL are reported as Above the Limit of Quantification This test was developed and its performance characteristics determined by [facility]. It has not been cleared or approved by the FDA; however, FDA clearance or approval is not currently required for clinical use. The results are not intended to be used as the sole means for clinical diagnosis or patient management decisions. This document contains confidential privileged information. The recipient of the information is prohibited from disclosing the contents to another alliance party without authorization. If you are not the intended recipient, you are hereby notified that the disclosure of the contents is strictly prohibited. Please notify [facility] immediately if you received this information in error. City Auditor: Mandie Silverman MD, [place]([facility]) [address] [place] [address] Cross-reactions occur with Blastomyces spp., Coccidioides spp., and Paracoccidioides brasiliensis. ALQ = Above the limit of Quantification Performed At: [facility] [address] [place] [address] Career Transition Specialist: Mandie Silverman CLIA Number: [id number] Performed By: #### H ISTO [facility] #### [address] [id number] LABORATORYOrdered By: SYSTEM SYSTEM on 02-01-2022 Basophils (Bld) [#/Vol] 0.1 103/mcL Invalid Interpretation Code 0.0 - 0.3 10^3/mcL AH Workflow SS Basophils/100 WBC (Bld) 0.5 % Invalid Interpretation Code 0.0 - 2.5 % AH Workflow SS Calcium [Mass/Vol] 10.0 mg/dL Invalid Interpretation Code 8.7 - 10.4 mg/dL AH ADM SS Chloride [Moles/Vol] 107 mmol/L Invalid Interpretation Code 98 - 110 mEq/L AH ADM SS CO2 [Moles/Vol] 29 mmol/L Invalid [...] d Interpretation Code 2.3 - 8.1 10^3/mcL Workflow SS Neutrophils/100 WBC (Bld) 70.1 % [...] Coag (PPP) [Relative time] 1.0 {INR} Normal [facility] ([place]) Comment on above: Result Comment: The [employer] (CHEST, 1991, 102:312S-25S) recommended therapeutic range for oral anticoagulant therapy is: LOW RISK: Prophylaxis of venous thrombosis INR: 2.0-3.0 Treatment of pulmonary embolism 2.0-3.0 Prevention of systemic embolism 2.0-3.0 HIGH RISK: Mechanical prosthetic valves 2.5-3.5 Performed By: #### P RO, GFR, BMP #### [address] [address] PT Coag (PPP) [Time] 11.7 s Normal 9.0-14.9 [facility] ([place]) Comment on above: Result Comment: Effe ctive 09/03/07, Protime results may be affected by some antibiotics (i.e. Ciprofloxacin, Azithromycin, Bactrim) which may potentiate the action of oral anticoagulants, with further increases in Protime/INR. Performed By: #### P PATT LANDIS, DIVYA #### [address] [address] AFB DIRECT SMEARon 2 AFB DIRECT SMEAR - -------- RUN DATE: 01/27/22 Laboratory LIVE PAGE 1 RUN TIME: 1347 Specimen Inquiry RUN USER: INTERFACE -------- [facility] [address] [place], [place] [id number] PATIENT: DONTAE PARRA LOC: [facility] U #: [id number] HOME PHONE: AGE/SX: 46/M ROOM: RE01/26/[address]: Monroe LoveO.B.: [birth year] BED: DIS: STATUS: REG REF LAB O/S: -------- Specimen: [id number] Collected: 01/26/22-UNK Status: COMP Req#: [id number] Received: 01/27/22-1199 Source: BRONCH Sp Desc: BRONCHIAL Subm Dr: Monroe Love Ordered: AFB DIRECT SMR -------- Procedure Result Verified -------- > AFB DIRECT SMEAR Final 01/27/22 FLUORESCENT ACID FAST STAIN: NO AFB SEEN ON UNCONCENTRATED SMEAR VIA FLUORESCENT METHOD -------- END OF REPORT Normal [facility] Comment on above: Performed By: #### S ESTHER #### [facility] [address] [address] FUNGUS SMEAR (PAOLO)on FUNGUS SMEAR (PAOLO) - -------- RUN DATE: 01/27/22 Laboratory LIVE PAGE 1 RUN TIME: 1332 Specimen Inquiry RUN USER: INTERFACE -------- [facility] [address] [place] [address] PATIENT: DONTAE PARRA LOC: [facility] U #: [id number] HOME PHONE: AGE/SX: 46/M ROOM: RE01/26/[address]: Monroe Love : 73 BED: DIS: STATUS: REG REF LAB O/S: -------- Specimen: [id number] Collected: 01/26/22-UN Status: COMP Req#: [id number] Received: 01/27/22 Source: BRONCH Sp Desc: BRONCHIAL Subm Dr: Monroe Love Ordered: MONE SALMON (PAOLO) -------- Procedure Result Verified -------- > FUNGUS SMEAR (PAOLO) Final 01/27/22-1331 NO FUNGAL ELEMENTS FOUND ON DIRECT PAOLO PREP -------- END OF REPORT Normal [facility] Comment on above: Performed By: #### S JOSUE #### [facility] [address] [address] Fungal Cultureon 01-26-2022 Fungal Culture - -------- RUN DATE: 03/26/22 Laboratory LIVE PAGE 1 RUN TIME: 100 Specimen Inquiry RUN USER: INTERFACE -------- [facility] [address] [place] [address] PATIENT: DONTAE PARRA LOC: [facility] U #: [id number] HOME PHONE: AGE/SX: 46/M ROOM: RE01/26/[address]: Monroe Love : 73 BED: DIS: STATUS: REG REF LAB O/S: -------- Specimen: [id number] Collected: 01/26/22-UNK Status: COMP Req#: [id number] Received: 01/27/22 Source: BRONCH Sp Desc: BRONCHIAL Subm Dr: Monroe Love Ordered: AFB Cult/Stain, Fungal Culture -------- Procedure Result Verified -------- > AFB Stain Final 03/26/22-99 SEE NOTE Negative for Acid Fast Bacteria. > Acid-Fast Bacillus Cult Final 03/26/22 SEE NOTE Culture negative for acid fast bacilli Performed By: [facility] [address] [place] [address] City Auditor: Cuong Wray MD, PHD > Fungal Culture Final 02/27/22-919 SEE NOTE Culture POSITIVE for Yeast not Cryptococcus species No further workup Performed By: [facility] [address] [place] [address] City Auditor: Cuong Wray MD, PHD -------- END OF REPORT Normal [facility] Comment on above: Performed By: #### C SUJATHA #### [facility] [address] [address] GRAM STAINon 01-26-2022 Microscopic observation Gram stain Nom (Unsp spec) -------- RUN DATE: 01/29/22 Laboratory LIVE PAGE 1 RUN TIME: 942 Specimen Inquiry RUN USER: INTERFACE -------- [facility] [address] [place] [id number] PATIENT: DONTAE PARRA LOC: [facility] #: [id number] HOME PHONE: AGE/SX: 46/M ROOM: RE01/26/[address]: Monroe Love : 73 BED: DIS: STATUS: REG REF LAB O/S: -------- Specimen: [id number] Collected: 01/26/22- Status: COMP Req#: [id number] Received: 01/27/22 Source: BRONCH Sp Desc: BRONCHIAL Subm Dr: Monroe Love Ordered: GRAM STAIN, RESPIRATORY CUL -------- Procedure Result Verified -------- > GRAM STAIN Final 01/27/22-140 FEW SEGMENTED WBC'S MODERATE GRAM POSITIVE COCCI > RESPIRATORY CULTURE Final 01/29/22-942 MODERATE GROWTH OF NORMAL MCKINLEY -------- END OF REPORT Normal [facility] Comment on above: Performed By: #### S MAXINE DICKEY #### [facility] [address] [address] NONGYN CYTOLOGYon 01-26-2022 NONGYN CYTOLOGY - -------- RUN DATE: 01/30/22 Laboratory LIVE PAGE 1 RUN TIME: 1333 Specimen Inquiry RUN USER: INTERFACE -------- [facility] [address] [place] [id number] PATIENT: DONTAE PARRA LOC: [facility] #: [id number] HOME PHONE: AGE/SX: 46/M ROOM: RE01/26/22 [facility] DR: Monroe Love D.O.B.: 73 BED: DIS: [...] -------- SPEC #: [id number] PATIENT: DONTAE PARRA #[id number] (Continued) -------- Specimen : [id number] Date Collected: [...] that evaluation. -------- END OF REPORT Normal [facility] Comment on above: Performed By: #### N G #### [facility] [address] [address] Radha 09-01-2021 DAVID Telephone (PULMUP) DONTAE PARRA ([id number]) 1975 M Date Time Provider Department 09/01/21 YONY FRIAS During your visit today, we recorded the following information about you: Sabra Chapman MA 09/01/2021 9:49 AM Signed Patient scheduled for Bronch on 09/06/2021 at 7:30 am. He has his Covid test on 09/03/2021 at 8:20 am at [facility] lab. Faxed orders. Left message for patient to call back. Can I get this Covid order signed? Thanks. NADIA Linn MA 09/01/2021 9:59 AM Signed Patient states that he will be out of town for the Covid test. He will be in [place]. Is there anything else he can do [...] was no answer. Left a message on voiceM-Farmil requesting a return call. Sabra Chapman MA Nadine Craig 09/01/2021 4:36 PM Signed Patient notified [...] exertion [R06.02] 08/31/2021 Coronary artery disease involving augustine ndiaye*08/31/2021 History of 2019 novel coronavirus disease (COVI*08/31/2021 Encounter Status:Closed by SABRA CHAPMAN on 09/02/21 [facility] Telephone (WIQ) DONTAE PARRA ([id number]) 1975 M Date Time Provider Department 09/01/21 SHANEL RAMIREZ During your visit today, we recorded the following information about you[facility] 3:37 PM Signed Smoking Cessation Navigation Outcome of contact: Left Message Comments: A voicemail has been left for this patient regarding Tobacco Cessation support options. If this patient has any further questions they can email us at or call us at [phone]. Winerist Acid Cleaner/Smoking Cessation Navigator: [facility] Allergies As of Date: 09/01/2021 (No Known [...] exertion [R06.02] 08/31/2021 Coronary artery disease involving augustine ndiaye*08/31/2021 History of 2019 novel coronavirus disease (COVI*08/31/2021 Encounter Status:Closed by SHANEL RAMIREZ on 09/01/21 Normal [facility] CNOVon 08-31-2021 CNOV Office Visit (PULMUP ) DONTAE PARRA ([id number]) 1975 M Date Time Provider Department 08/31/21 12:00 PM YONY FRIAS During your visit today, we recorded the following information about you: Pulse Blood pressure Weight Height 84/minute 118/79 100.7 kg 1.829 m Yony Frias DO 08/31/2021 12:51 PM Signed [facility] Department of Pulmonary AND Sleep [...] pain - COPD (chronic obstructive pulmonary disease) ([facility]) - Coronary arteriosclerosis NON -CRITICAL DISEASE - Depression - Dyspnea - Erectile dysfunction c/o - GERD (gastroesophageal reflux disease) - Heart attack ([facility]) - Hyperlipidemia - Neuropathy - Pneumonia, viral - Restless legs - Stroke (cerebrum) ([facility]) PAST SURGICAL HISTORY Procedure Laterality Date [...] Positive for (more content not included)... Normal [facility] CBC w/Auto Differentialon Basophils Abs. # 0.02 K/uL Normal 0.00-0.10 [facility] Comment on above: Performed By: #### C BCS #### [facility] [address] [place] [address] Basophils/100 WBC (Bld) 0.2 % Normal 0.2-1.0 [facility] Comment on above: Performed By: #### C BCS #### [facility] [address] [place] [address] Eosinophils (Bld) [#/Vol] 0.10 10*3/uL Normal 0.00-0.2 0 [facility] Comment on above: Performed By: #### C BCS #### [facility] [address] [place] [address] Eosinophils/100 WBC (Bld) 1.3 % Normal 0.9-2.9 [facility] Comment on above: Performed By: #### C BCS #### [facility] [address] [place] [address] Erythrocyte distribution width (RBC) [Ratio] 13.5 % Normal 11.5-14.5 [facility] Comment on above: Performed By: #### C BCS #### [facility] [address] [place] [address] Hematocrit (Bld) [Volume fraction] 44.2 % Normal 36.7-50.6 [facility] Comment on above: Performed By: #### C BCS #### [facility] [address] [place] [address] Hemoglobin (Bld) [Mass/Vol] 14.9 g/dL Normal 12.4-17.3 [facility] Comment on above: Performed By: #### C BCS #### [facility] [address] [place] [address] Imm Grans % 0.40 % Normal 0.00-1.00 [facility] Comment on above: Performed By: #### C BCS #### [facility] [address] [place] [address] Imm Grans Absolute # 0.04 K/uL Normal 0.00-0.10 [facility] Comment on above: Performed By: #### C BCS #### [facility] [address] [place] [address] Lymphocytes (Bld) [#/Vol] 2.30 10*3/uL Normal 1.30-2.9 0 [facility] Comment on above: Performed By: #### C BCS #### [facility] [address] [place] [address] Lymphocytes/100 WBC (Bld) 23.9 % Normal 17.0-45.5 [facility] Comment on above: Performed By: #### C BCS #### [facility] [address] [place] [address] MCH (RBC) [Entitic mass] 30.7 pg Normal 27.0-31.0 [facility] Comment on above: Performed By: #### C BCS #### [facility] [address] [place] [address] MCHC (RBC) [Mass/Vol] 33.7 g/dL Normal 33.0-37.0 [facility] Comment on above: Performed By: #### C BCS #### [facility] [address] [place] [address] MCV (RBC) [Entitic vol] 90.9 fL Normal 80.0-94.0 [facility] Comment on above: Performed By: #### C BCS #### [facility] [address] [place] [address] Monocytes (Bld) [#/Vol] 0.50 10*3/uL Normal 0.30-0.80 [facility] Comment on above: Performed By: #### C BCS #### [facility] [address] [place] [address] Monocytes/100 WBC (Bld) 5.3 % Low 5.5-11.7 [facility] Comment on above: Performed By: #### C BCS #### [facility] [address] [place] [address] Neutrophils Abs. # 6.48 K/uL High 2.20-4.80 [facility] Comment on above: Performed By: #### C BCS #### [facility] [address] [facility] [place] [address] Neutrophils/100 WBC (Bld) 68.9 % High 43.0-65.0 [facility] Comment on above: Performed By: #### C BCS #### [facility] [address] [facility] [place] [address] Platelet mean volume (Bld) [Entitic vol] 8.3 fL Normal 7.4-10.4 [facility] Comment on above: Performed By: #### C BCS #### [facility] [address] [place] [address] Platelets (Bld) [#/Vol] 204 10*3/uL Normal 148-402 [facility] Comment on above: Performed By: #### C BCS #### [facility] [address] [place] [address] RBC (Bld) [#/Vol] 4.86 10*6/uL Normal 4.13-5.69 [facility] Comment on above: Performed By: #### C BCS #### [facility] [address] [place] [address] WBC (Bld) [#/Vol] 9.4 10*3/uL Normal 3.6-10.8 [facility] Comment on above: Performed By: #### C BCS #### [facility] [address] [place] [address] CHEST APon 03-03-2021 CHEST AP EXAMINATION: ONE XRAY VIEW OF THE CHEST 03/03/2021 11:53 am COMPARISON: February 22, 2021 HISTORY: ORDERING SYSTEM PROVIDED HISTORY: covid/dyspnea FINDINGS: Bibasilar atelectasis or infiltrates slightly greater on the right. No pneumothorax or significant pleural effusion. Cardiac and mediastinal silhouettes unremarkable. No acute osseous abnormality. Telemetry leads overlie the chest. IMPRESSION: Bibasilar atelectasis or infiltrates. Normal [facility] CTA CHEST Won 03-03-2021 CTA CHEST [...] Bibasilar atelectasis or infiltrates. RECOMMENDATIONS: Unavailable Normal [facility] Comprehensive Metabolic Pane shilo 03-03-2021 Albumin [Mass/Vol] 3.5 g/dL Normal 3.4-5.0 [facility] Comment on above: Performed By: #### C MP #### [facility] [address] [place] [address] Albumin/Globulin [Mass ratio] 1.1 {ratio} Normal 1.1-2.5 [facility] Comment on above: Result Comment: CO RRECTED REPORT: Previous result was 1.0 at 12:02 on 03/03/21 Performed By: #### C MP #### [facility] [address] [place] [address] ALP [Catalytic activity/Vol] 93 U/L Normal 54-112 [facility] Comment on above: Performed By: #### C MP #### [facility] [address] [place] [address] ALT [Catalytic activity/Vol] 48 U/L Normal 13-66 [facility] Comment on above: Performed By: #### C MP #### [facility] [address] [place] [address] Anion gap [Moles/Vol] 11.8 mmol/L Normal 8.0-16.0 [facility] Comment on above: Performed By: #### C MP #### [facility] [address] [place] [address] AST [Catalytic activity/Vol] 21 U/L Normal 3-39 [facility] Comment on above: Performed By: #### C MP #### [facility] [address] [facility] [place] [address] Bilirubin [Mass/Vol] 0.92 mg/dL Normal 0.00-0.99 [facility] Comment on above: Performed By: #### C MP #### [facility] [address] [facility] [place] [place] [address] Calcium [Mass/Vol] 8.3 mg/dL Normal 8.2-10.0 [facility] Comment on above: Performed By: #### C MP #### [facility] [address] [facility] [place] [place] [address] Chloride [Moles/Vol] 106 mmol/L Normal 94-110 [facility] Comment on above: Performed By: #### C MP #### [facility] [address] [facility] [place] [address] CO2 [Moles/Vol] 26 mmol/L Normal 21-34 [facility] Comment on above: Performed By: #### C MP #### [facility] [address] [facility] [place] [address] Creatinine [Mass/Vol] 0.93 mg/dL Normal 0.50-1.17 [facility] Comment on above: Performed By: #### C MP #### [facility] [address] [facility] [address] EGFR Other Races >60 Normal >60 [facility] Comment on above: Performed By: #### C MP #### [facility] [address] [place] [address] GFR/1.73 sq M.predicted among blacks MDRD (S/P/Bld) [Vol rate/Area] mL/min/{1.73_m2} Normal >60 [facility] Comment on above: Result Comment: Application Technical Designer ceci Kidney Disease less than 60 mL/min/1.73 m2 Kidney Failure less than 15 mL/min/1.73 m2 Average estimated GFR by age: 40-49 years 99 mL/min/1.73 m2 Performed By: #### C MP #### [facility] [address] [place] [address] Globulin (S) [Mass/Vol] 3.3 g/dL Normal 1.5-4.5 [facility] Comment on above: Performed By: #### C MP #### [facility] [address] [place] [address] Glucose [Mass/Vol] 124 mg/dL High 65-100 [facility] Comment on above: Performed By: #### C MP #### [facility] [address] [place] [address] Potassium [Moles/Vol] 3.8 mmol/L Normal 3.3-5.1 [facility] Comment on above: Performed By: #### C MP #### [facility] [address] [place] [address] Protein [Mass/Vol] 6.8 g/dL Normal 6.1-8.2 [facility] Comment on above: Performed By: #### C MP #### [facility] [address] [place] [address] Sodium [Moles/Vol] 140 mmol/L Normal 132-145 [facility] Comment on above: Performed By: #### C MP #### [facility] [address] [place] [address] Urea nitrogen [Mass/Vol] 13.4 mg/dL Normal 3.2-26.9 [facility] Comment on above: Performed By: #### C MP #### [facility] [address] [place] [address] Urea nitrogen/Creatinine [Mass ratio] 14 mg/mg Normal 6-20 [facility] Comment on above: Performed By: #### C MP #### [facility] [address] [place] [address] D-Dimeron 03-03-2021 D-Dimer 0.28 mg/L FEU Normal 0.00-0.49 [facility] Comment on above: Result Comment: Nega [...] - Performed By: #### D RUBEN #### [facility] [address] [place], [place] [id number] EMERGENCY DEPARTMENTon 03-03 EMERGENCY DEPARTMENT [place] [id number] HEALTH INFORMATION MANAGEMENT EMERGENCY DEPARTMENT : [phone] Signed Patient: SIMEON PARRACarson Black Acct:[id number] MRUN: Lolly [id number] : 1975 Sex: M Loc: ED ADM [...] Feels Threatened In a Relationship: No - [place]/Gender ID What is your current Gender Identity? Choose all that Apply: Male - [place]-Suicide Severity Rating Scale 1) Wish to be [...] - Head (more content not included)... Normal [facility] High Sensitivity TNIon 03-03 Abs Change hsTnI 1 ng/L Normal [facility] Comment on above: Performed By: #### H STNI #### [facility] [address] [place], [place] [id number] Delta % hsTnI 8 % Normal [facility] Comment on above: Performed By: #### H STNI #### [facility] [address] [place] [address] High Sensitivity TNI 13 ng/L Normal 0-76 [facility] Comment on above: Result Comment: Inte rpretation comment: High-sensitivity troponin I (hsTnI) assay can reliably detect low troponin concentrations relative to conventional troponin assays. It is the preferred marker of myocardial necrosis as recommended by the Fourth [place] Definition of Myocardial Infarction Guidelines. The diagnosis [...] significant. Performed By: #### H STNI #### [facility] [address] [place] [id number] High Sensitivity TNI 12 ng/L Normal 0-76 [facility] Comment on above: Result Comment: Inte rpretation comment: High-sensitivity troponin I (hsTnI) assay can reliably detect low troponin concentrations relative to conventional troponin assays. It is the preferred marker of myocardial necrosis as recommended by the Fourth [place] Definition of Myocardial Infarction Guidelines. The diagnosis [...] considered significant. Performed By: #### H STNI ####[facility] [place] [address] NT Pro-BNPon 03-03-2021 Natriuretic peptide B (Bld) [Mass/Vol] 45 pg/mL Normal 0-125 [facility] Comment on above: Result Comment: NOTE -Dietary supplements containing high biotin levels may cause significant interference with affected lab tests, including cardiovascular diagnostic tests and hormone tests that use biotin technology. Incorrect test results may be generated if there is biotin in the patients specimen. Performed By: #### P BNPG #### [facility] [address] [place], [place] [phone] PTTon 03-03-2021 aPTT Coag (Bld) [Time] 24.7 s Normal 19.5-32.1 [facility] Comment on above: Result Comment: New Reference Ranges effective 2017. Performed By: #### P TT #### [facility] [address] [place] [address] Prothrombin Timeon 2 INR Coag (PPP) [Relative time] 0.93 {INR} Normal [facility] Comment on above: Result Comment: 2.0 - 3.0 Group A 2.5 - 3.5 Group B Group A indications: Prophylaxis and treatment of venous thrombosis. Treatment of pulmonary embolism. Prevention of systemic embolism. Tissue heart valves. Acute myocardial infarction. Valvular heart disease. Atrial fibrillation. Group B indications: Mechanical prosthetic valves. . Performed By: #### P T ####[facility] [place] [address] PT Coag (PPP) [Time] 9.0 s Normal 8.9-12.2 [facility] Comment on above: Result Comment: New Reference Ranges effective 2017. Performed By: #### P T ####[facility] [place] [address] 2019 Novel Coronavirus (CoVI D-19), NAAon 02-23-2021 SARS-CoV-2 (COVID-19) RNA [place]+probe Ql (Unsp spec) Detected Abnormal Not Detected [facility] Comment on above: Result Comment: Stefanie ents who have a positive COVID-19 test result may now have treatment options. Treatment options are available for patients with mild to moderate symptoms and for hospitalized patients. Visit our website at [email or web address] for resources and information. This nucleic acid amplification test was developed and its performance characteristics determined by [employer]. Nucleic acid amplification tests include RT-PCR and [...] detected) result in this assay. Performed at: [address] [id number] Hop Picker: Trent Live PhD, Phone: [phone] Performed By: #### L COV #### [facility] [address] [address] CHEST APon 02-22-2021 CHEST AP [...] is identified by PA chest x-ray. Normal [facility] EMERGENCY DEPARTMENTon 02-22 EMERGENCY DEPARTMENT [address] [address] HEALTH INFORMATION MANAGEMENT EMERGENCY DEPARTMENT : [phone] Signed Patient: DONTAE PARRA Acct:[id number] MRUN: Lolly [id number] : 1975 Sex: M Loc: ED ADM [...] illness exposure, smoke exposure, unknown cause Treatments SALES APPOINTMENT COORDINATOR: none - Related Data Home medications and [...] Feels Threatened In a Relationship: No - [place]/Gender ID What is your current Gender Identity? Choose all that Apply: Male - [place]-Suicide Severity Rating Scale 1) Wish to be [...] - Nec (more content not included)... Normal [facility] SARS Antigen (Rapid)on 02-22 SARS Antigen Negative Normal Negative [facility] Comment on above: Result Comment: The Gala 2 SARS Antigen [place] is a lateral flow immunofluorescent sandwich assay that is used with the Gala 2 instrument intended for the qualitative detection of the nucleocapsid protein antigen from SARS-CoV-2 in nasopharyngeal ([employer]SULTANT) and nasal (NS) swab specimens directly or [...] COVID-19. Performed By: #### C OVAG #### [facility] [address] [place] [address] Echo Stress Echo w/wo Jovanny pastor 12-20-2016 Echo Stress Echo w/wo Contrast Patient Name: DONTAE PARRA Ultrasound Exam Date/Time 12/20/2016 14:13:30 EDT Exam Echo Stress Echo w/wo Contrast Ordering Physician VAUGHN VILLEGAS CAYLA Accession Number [id number] Reason For Exam angina Report STRESS ECHOCARDIOGRAM Rito Protocol PATIENT: Dontae Parra STUDY DATE: 12/20/2016 : 1975 AGE: 41 HT/WT: 182.9 cm (72 98.9 kg in) (217.5 lb) GENDER: M BP: LOCATION: [facility] and PATIENT Outpatient [facility] STATUS: *ORDERING PHYSICIAN: * Merly Villegas *SUPERVISING PHYSICIAN: * Jimbo *RN: * Mike Howard RN Olinger, Redle, MD Debra *READING PHYSICIAN: * Jimbo Butler MD *DIAGNOSTIC TECH: * Rosalva Mack --- INDICATIONS: Angina decubitus [...] peak heart rate and blood [place] [address] mm Hg/min. 3 out of 10 stress-induced [...] 12/20/2016 4:36 pm Signed by: JIMBO [facility]LER [facility] CR Chest Portableon 11-21-19 17 CR Chest Portable Patient Name: DONTAE PARRA Diagnostic Radiology Exam Date/Time 11/20/2016 21:47:24 EDT Exam CR Chest Portable Ordering Physician BERTO CALERO SCOTT Accession Number [id number] CPT4 Codes 83905 () Reason For Exam chest pain Report [...] ANTHONY Transcribed Date and Time: 11/20/2016 9:54 [facility] CTA Chest/Abdomen/Pelvis w/ + w/o contraon 11-20-2016 CTA Chest/Abdomen/Pelvis w/ + w/o contra Patient Name: DONTAE PARRA CT Exam Date/Time 11/20/2016 20:56:40 EDT Exam CTA Chest/Abdomen/Pelvis w/ + w/o contra Ordering Physician MD FLORES AUSTIN Accession Number [id number] CPT4 Codes Q9967 (), 69443 (), 63184 () Reason For Exam chest/abdominal pain. concern [...] were concurrently generated by me on the [employer] workstation to better visualize gross vascular anatomy. [...] aorta were generated by me on the [employer] workstation. There is no evidence for abdominal [...] arteries were generated by me on the [employer] workstation. There is no evidence for common, [...] Transcribed Date and Time: 11/20/2016 9:54 Normal [facility] Comp Metabolic Panelon 11-20 Anion gap 10 mmol/L Normal [facility] Comment on above: Performed By: #### H LESLY, CMP3, TROPN ####[address] [address] Alkaline phosphatase (ALP) 92 U/L Normal 45-117 [facility] Comment on above: Performed By: #### H EMOG, CMP3, TROPN ####[address] [address] Protein 7.0 g/dL Normal 6.4-8.2 [facility] Comment on above: Performed By: #### H EMOG, CMP3, TROPN ####[address] [address] Bilirubin (total) 0.6 mg/dL Normal 0.2-1.0 [facility] Comment on above: Performed By: #### H EMOG, CMP3, TROPN ####[address] [address] Alanine aminotransferase (ALT) 22 U/L Normal 12-78 [facility] Comment on above: Performed By: #### H EMOG, CMP3, TROPN ####[place] [address] [place] [address] Aspartate aminotransferase (AST) 13 U/L Low 15-37 [facility] Comment on above: Result Comment: Slig htly hemolysed, interpret with caution. Performed By: #### H LESLY, CMP3, TROPN ####[place] [address] [place] [address] Creatinine 1.09 mg/dL Normal 0.55-1.40 [facility] Comment on above: Performed By: #### H LESLY, CMP3, TROPN ####[place] [address] [place] [address] eGFR (black) mL/min/{1.73_m2} Normal >60 [facility] Comment on above: Performed By: #### H LESLY, CMP3, TROPN ####[place] [address] [place] [address] eGFR (non-black) mL/min/{1.73_m2} Normal >60 [facility] Comment on above: Result Comment: Sour ce- MDRD equation with creatinine calibration to IDMS(NKDEP)eGFR not recommended for drug dose adjustment Performed By: #### H CATHY GRACE3, TROPN ####[place] [address] [place] [address] Albumin 3.7 g/dL Normal 3.4-5.0 [facility] Comment on above: Performed By: #### H LESLY CMP3, TROPN ####[place] [address] [place] [address] Chloride 106 mmol/L Normal 98-109 [facility] Comment on above: Performed By: #### H LESLY, CMP3, TROPN ####[place] [address] [place] [address] Glucose mass conc 160 mg/dL High 70-100 [facility] Comment on above: Performed By: #### H EMOAnne Marie, CMP3, TROPN ####[place] [address] [place] [address] Potassium molar conc 3.5 mmol/L Normal 3.5-5.1 [facility] Comment on above: Result Comment: Slig htly hemolysed, interpret with caution. Performed By: #### H EMOG, CMP3, TROPN ####[place] [address] [place] [address] Sodium 142 mmol/L Normal 135-145 [facility] Comment on above: Performed By: #### H EMOG, CMP3, TROPN ####[place] [address] [place] [address] Urea nitrogen 14 mg/dL Normal 7-25 [facility] Comment on above: Performed By: #### H EMOG, CMP3, TROPN ####[place] [address] [place] [address] Calcium 9.0 mg/dL Normal 8.2-10.1 [facility] Comment on above: Performed By: #### H EMOG, CMP3, TROPN ####[place] [address] [place] [address] CO2 26 mmol/L Normal 21-32 [facility] Comment on above: Performed By: #### H EMOG, CMP3, TROPN ####[address] [place] [address] Hemogramon 11-20-2016 Erythrocyte distribution width Auto Ratio (RBC) 13.4 % Normal 11.5-14.5 [facility] Comment on above: Performed By: #### H EMOG, CMP3, TROPN ####[place] [address] [place] [address] Erythrocytes (RBC) 5.01 10*6/uL Normal 4.40-5.90 [facility] Comment on above: Performed By: #### H EMOG, CMP3, TROPN ####[address] [place] [address] Hematocrit (HCT) 44.6 % Normal 40.0-52.0 [facility] Comment on above: Performed By: #### H EMOG, CMP3, TROPN ####[place] [address] [place] [address] Hemoglobin mass conc (Bld) 15.3 g/dL Normal 13.0-18.0 [facility] Comment on above: Performed By: #### H EMOG, CMP3, TROPN ####[address] [address] MCH 30.5 pg Normal 26.0-34.0 [facility] Comment on above: Performed By: #### H EMOG, CMP3, TROPN ####[address] [address] MCHC mass conc (RBC) 34.3 % Normal 32.0-36.0 [facility] Comment on above: Performed By: #### H EMOG, CMP3, TROPN ####[address] [address] MCV 88.9 fL Normal 80.0-98.0 [facility] Comment on above: Performed By: #### H EMOG, CMP3, TROPN ####[place] [address] Platelet mean volume (PMV) 6.8 fL Low 7.4-10.4 [facility] Comment on above: Performed By: #### H EMOG, CMP3, TROPN ####[address] [address] Platelets 323 10*3/uL Normal 140-440 [facility] Comment on above: Performed By: #### H EMOG, CMP3, TROPN ####[address] [address] WBC (Leukocytes) 8.9 10*3/uL Normal 3.6-10.7 [facility] Comment on above: Performed By: #### H EMOG, CMP3, TROPN ####[address] [address] Troponin Ion 11-20-2016 Troponin I.cardiac mass conc ng/mL Normal 0.000-0.04 5 [facility] Comment on above: Result Comment: 0.04 6 - 0.400 = Indeterminate> 0.400 = Consider Myocardial Injury Performed By: #### H EMOG, CMP3, TROPN ####[address] [place] [address] Basic Metabolic Panelon 08-0 Anion gap 9 mmol/L Normal [facility] Comment on above: Performed By: #### H EMDF, BMP3, TROPN ####[place] [address] [place] [address] Creatinine 1.14 mg/dL Normal 0.55-1.40 [facility] Comment on above: Performed By: #### H EMDF, BMP3, TROPN ####[place] [address] [place] [address] eGFR (black) mL/min/{1.73_m2} Normal >60 [facility] Comment on above: Performed By: #### H EMDF, BMP3, TROPN ####[place] [address] [place] [address] eGFR (non-black) mL/min/{1.73_m2} Normal >60 [facility] Comment on above: Result Comment: Sour ce- MDRD equation with creatinine calibration to IDMS(NKDEP)eGFR not recommended for drug dose adjustment Performed By: #### H EMDF, BMP3, TROPN ####[place] [address] [place] [address] Glucose mass conc 98 mg/dL Normal 70-100 [facility] Comment on above: Performed By: #### H EMDF, BMP3, TROPN ####[place] [address] [place] [address] CO2 27 mmol/L Normal 21-32 [facility] Comment on above: Performed By: #### H EMDF, BMP3, TROPN ####[place] [address] [place] [address] Urea nitrogen 11 mg/dL Normal 7-25 [facility] Comment on above: Performed By: #### H EMDF, BMP3, TROPN ####[place] [address] [place] [address] Calcium 9.4 mg/dL Normal 8.2-10.1 [facility] Comment on above: Performed By: #### H EMDF, BMP3, TROPN ####[place] [address] [place] [address] Chloride 106 mmol/L Normal 98-109 [facility] Comment on above: Performed By: #### H EMDF, BMP3, TROPN ####[place] [address] [place] [address] Potassium molar conc 3.8 mmol/L Normal 3.5-5.1 [facility] Comment on above: Result Comment: Slig htly hemolysed, interpret with caution. Performed By: #### H EMDF, BMP3, TROPN ####[place] [address] [place] [address] Sodium 142 mmol/L Normal 135-145 [facility] Comment on above: Performed By: #### H EMDF, BMP3, TROPN ####[place] [address] [place] [address] CR Chest PA/LATon 09-19-2016 CR Chest PA/LAT Patient Name: DONTAE PARRA Diagnostic Radiology Exam Date/Time 09/19/2016 09:05:22 EDT Exam CR Chest PA/LAT Ordering Physician NESSA NGUYEN, CARLY Accession Number [id number] CPT4 Codes 83376 () Reason For Exam CP Report Clinical [...] Transcribed Date and Time: 09/19/2016 9:41 Normal [facility] Hemogram w/ Autodiffon 09-19 Abs Baso Cnt 0.0 10*3/uL Normal 0.0-0.2 [facility] Comment on above: Performed By: #### H EMDF, BMP3, TROPN ####[address] [address] Basophils/100 WBC Auto (Bld) 0.5 % Normal [facility] Comment on above: Performed By: #### H EMDF, BMP3, TROPN ####[address] [address] Eosinophils 0.1 10*3/uL Normal 0.0-0.5 [facility] Comment on above: Performed By: #### H EMDF, BMP3, TROPN ####[address] [address] Eosinophils/100 leukocytes 1.9 % Normal [facility] Comment on above: Performed By: #### H EMDF, BMP3, TROPN ####[address] [address] Erythrocyte distribution width Auto Ratio (RBC) 13.3 % Normal 11.5-14.5 [facility] Comment on above: Performed By: #### H EMDF, BMP3, TROPN ####[address] [address] Erythrocytes (RBC) 5.06 10*6/uL Normal 4.40-5.90 [facility] Comment on above: Performed By: #### H EMDF, BMP3, TROPN ####[address] [address] Granulocytes/100 WBC (Bld) 68.6 % Normal [facility] Comment on above: Performed By: #### H EMDF, BMP3, TROPN ####[address] [address] Hematocrit (HCT) 44.5 % Normal 40.0-52.0 [facility] Comment on above: Performed By: #### H EMDF, BMP3, TROPN ####[address] [address] Hemoglobin mass conc (Bld) 15.2 g/dL Normal 13.0-18.0 [facility] Comment on above: Performed By: #### H EMDF, BMP3, TROPN ####[address] [address] Lymphocytes 1.8 10*3/uL Normal 1.0-4.3 [facility] Comment on above: Performed By: #### H EMDF, BMP3, TROPN ####[address] [address] Lymphocytes/100 leukocytes 22.6 % Normal [facility] Comment on above: Performed By: #### H EMDF, BMP3, TROPN ####[address] [address] MCH 30.1 pg Normal 26.0-34.0 [facility] Comment on above: Performed By: #### H EMDF, BMP3, TROPN ####[address] [address] MCHC mass conc (RBC) 34.2 % Normal 32.0-36.0 [facility] Comment on above: Performed By: #### H EMDF, BMP3, TROPN ####[address] [address] MCV 87.9 fL Normal 80.0-98.0 [facility] Comment on above: Performed By: #### H EMDF, BMP3, TROPN ####[address] [address] Monocytes 0.5 10*3/uL Normal 0.0-0.8 [facility] Comment on above: Performed By: #### H EMDF, BMP3, TROPN ####[address] [address] Monocytes/100 leukocytes 6.4 % Normal [facility] Comment on above: Performed By: #### H EMDF, BMP3, TROPN ####[address] [address] Neutrophils 5.5 10*3/uL Normal 1.8-7.0 [facility] Comment on above: Performed By: #### H EMDF, BMP3, TROPN ####[address] [address] Platelet mean volume (PMV) 6.7 fL Low 7.4-10.4 [facility] Comment on above: Performed By: #### H EMDF, BMP3, TROPN ####[address] [address] Platelets 281 10*3/uL Normal 140-440 [facility] Comment on above: Performed By: #### H EMDF, BMP3, TROPN ####[address] [address] WBC (Leukocytes) 8.1 10*3/uL Normal 3.6-10.7 [facility] Comment on above: Performed By: #### H EMDF, BMP3, TROPN ####[address] [address] Troponin Ion 09-19-2016 Troponin I.cardiac mass conc 0.061 ng/mL High 0.000-0.04 5 [facility] Comment on above: Result Comment: 0.04 6 - 0.400 = Indeterminate> 0.400 = Consider Myocardial Injury Performed By: #### H EMDF, BMP3, TROPN ####[address] [address] Vital Signs Date Time Vital Sign Value Performing Clinician Facility 12-01-2023 11:28-0400 SaO2% (BldA) [Mass fraction] 92 % Joobiliel DO [facility] 12-01-2023 10:30-0400 Body temperature 98.4 [degF] Wormhole Thomas DO [facility] 12-01-2023 10:30-0400 Diastolic blood pressure 69 mm[Hg] Wormhole Thomas DO Work Phone: [employer] 12-01-2023 10:30-0400 Heart rate 78 /min Wormhole Thomas DO Work Phone[facility] 12-01-2023 10:30-0400 Systolic blood pressure 116 mm[Hg] Joobiliel DO Work Phone: [facility] 12-01-2023 08:12-0400 Respiratory rate 20 /min Cabrera Thomas DO Work Phone: [facility] 12-01-2023 02:57-0400 Body height 182.9 cm Cabrera Thomas DO Work Phone: [facility] 12-01-2023 02:57-0400 Body mass index (BMI) [Ratio] 29.16 kg/m2 Cabrera Thomas DO Work Phone: [facility] 12-01-2023 02:57-0400 Body weight 97.52 kg Cabrera Thomas DO Work Phone: [facility] 04-25-2023 12:47-0500 Body height 182.[address] Tim Alvarado Work Phone: [facility] 04-25-2023 12:47-0500 Body weight 99.[address] Tim Alvarado Work Phone: [facility] 04-25-2023 12:47-0500 Heart rate 89 /min Dr. Tim Alvarado Work Phone: [facility] 04-25-2023 12:47-0500 SaO2% (BldA) [Mass fraction] 95 % Dr. Tim Alvarado Work Phone: [facility] 03-21-2023 06:21-0500 Body mass index (BMI) [Ratio] 30.9 kg/m2 Dr. Tim Alvarado Work Phone: [facility] 03-21-2023 06:21-0500 Body temperature 97.1 [degF] Dr. Tim Alvarado Work Phone: [facility] 03-21-2023 06:21-0500 Body weight 103.[address] Tim Alvarado Work Phone: [facility] 03-21-2023 06:21-0500 Diastolic blood pressure 81 mm[Hg] Dr. Tim Alvarado Work Phone: [facility] 03-21-2023 06:21-0500 Heart rate 80 /min Dr. Tim Alvarado Work Phone: [facility] 03-21-2023 06:21-0500 Respiratory rate 20 /min Dr. Tim Alvarado Work Phone: [facility] 03-21-2023 06:21-0500 SaO2% (BldA) [Mass fraction] 94 % Dr. Tim Alvarado Work Phone: [facility] 03-21-2023 06:21-0500 Systolic blood pressure 123 mm[Hg] Dr. Tim Alvarado Work Phone: [facility] 03-01-2023 13:55-0500 Body mass index (BMI) [Ratio] 31.4 kg/m2 Dr. Tim Alvarado Work Phone: [facility] 03-01-2023 13:55-0500 Body weight 105.[address] Tim Alvarado Work Phone: [facility] 03-01-2023 13:55-0500 Diastolic blood pressure 69 mm[Hg] Dr. Tim Alvarado Work Phone: [facility] 03-01-2023 13:55-0500 Heart rate 82 /min Dr. Tim Alvarado Work Phone: [facility] 03-01-2023 13:55-0500 Respiratory rate 18 /min Dr. Tim Alvarado Work Phone: [facility] 03-01-2023 13:55-0500 Systolic blood pressure 116 mm[Hg] Dr. Tim Alvarado Work Phone: [facility] 01-24-2023 03:58-0500 Diastolic blood pressure 74 mm[Hg] Dr. Bria Olsen Work Phone: [facility] 01-24-2023 03:58-0500 Heart rate 73 /min Dr. Bria Olsen Work Phone: [facility] 01-24-2023 03:58-0500 Respiratory rate 16 /min Dr. Bria Olsen Work Phone: [facility] 01-24-2023 03:58-0500 SaO2% (BldA) [Mass fraction] 99 % Dr. Bria Olsen Work Phone: [facility] 01-24-2023 03:58-0500 Systolic blood pressure 118 mm[Hg] Dr. Bria Olsen Work Phone: [facility] 01-24-2023 01:58-0500 Body height 182.[address] Bria Olsen Work Phone: [facility] 01-24-2023 01:58-0500 Body mass index (BMI) [Ratio] 31.4 kg/m2 Dr. Bria Olsen Work Phone: [facility] 01-24-2023 01:58-0500 Body temperature 96.8 [degF] Dr. Bria Olsen Work Phone: [facility] 01-24-2023 01:58-0500 Body weight [address] Bria Olsen Work Phone: [facility] 01-22-2023 13:32-0500 Body mass index (BMI) [Ratio] 31.7 kg/m2 Dr. Bria Olsen Work Phone: [facility] 01-22-2023 13:32-0500 Body weight 106.[address] Bria Olsen Work Phone: [facility] 01-22-2023 13:32-0500 Diastolic blood pressure 80 mm[Hg] Dr. Bria Olsen Work Phone: [facility] 01-22-2023 13:32-0500 Heart rate 88 /min Dr. Bria Olsen Work Phone: [facility] 01-22-2023 13:32-0500 Respiratory rate 20 /min Dr. Bria Olsen Work Phone: [facility] 01-22-2023 13:32-0500 Systolic blood pressure 125 mm[Hg] Dr. Bria Olsen Work Phone: [facility] 01-08-2023 07:43-0500 Body mass index (BMI) [Ratio] 30.7 kg/m2 Dr. Bria Olsen Work Phone: [facility] 01-08-2023 07:43-0500 Body temperature 97.4 [degF] Dr. Bria Olsen Work Phone: [facility] 01-08-2023 07:43-0500 Body weight 102.[address] Bria Olsen Work Phone: [facility] 01-08-2023 07:43-0500 Diastolic blood pressure 76 mm[Hg] Dr. Bria Olsen Work Phone: [facility] 01-08-2023 07:43-0500 Heart rate 74 /min Dr. Bria Olsen Work Phone: [facility] 01-08-2023 07:43-0500 Respiratory rate 28 /min Dr. Bria Olsen Work Phone: [facility] 01-08-2023 07:43-0500 SaO2% (BldA) [Mass fraction] 96 % Dr. Bria Olsen Work Phone: [facility] 01-08-2023 07:43-0500 Systolic blood pressure 112 mm[Hg] Dr. Bria Olsen Work Phone: [facility] 11-06-2022 14:27-0400 Body mass index (BMI) [Ratio] 31.4 kg/m2 Dr. Bria Olsen Work Phone: [facility] 11-06-2022 14:27-0400 Body weight 105.[address] Bria Olsen Work Phone: [facility] 11-06-2022 14:27-0400 Diastolic blood pressure 84 mm[Hg] Dr. Bria Olsen Work Phone: [facility] 11-06-2022 14:27-0400 Heart rate 91 /min Dr. Bria Olsen Work Phone: [facility] 11-06-2022 14:27-0400 Respiratory rate 18 /min Dr. Bria Olsen Work Phone: [facility] 11-06-2022 14:27-0400 Systolic blood pressure 136 mm[Hg] Dr. Bria Olsen Work Phone: [facility] 10-17-2022 20:13-0400 Body height 182.9 cm JEANNIE REICHFIELD DO [facility] 10-17-2022 20:13-0400 Body temperature 98.24 [degF] JEANNIE REICHFIELD DO [facility] 10-17-2022 20:13-0400 Body weight 103 kg JEANNIE REICHFIELD DO [facility] 10-17-2022 20:13-0400 Diastolic Blood Pressure Non-Invasive 83 1 JEANNIE REICHFIELD DO [facility] 10-17-2022 20:13-0400 Heart rate 76 /min JEANNIE REICHFIELD DO [facility] 10-17-2022 20:13-0400 Respiratory rate 16 /min JEANNIE REICHFIELD DO [facility] 10-17-2022 20:13-0400 Systolic Blood Pressure Non-Invasive 134 1 JEANNIE REICHFIELD DO [facility] 10-05-2022 08:23-0400 Body mass index (BMI) [Ratio] 31.1 kg/m2 Dr. Bria Olsen Work Phone: [facility] 10-05-2022 08:23-0400 Body temperature 97.5 [degF] Dr. Bria Olsen Work Phone: [facility] 10-05-2022 08:23-0400 Body weight 104.[address] Bria Olsen Work Phone: [facility] 10-05-2022 08:23-0400 Diastolic blood pressure 77 mm[Hg] Dr. Bria Olsen Work Phone: [facility] 10-05-2022 08:23-0400 Heart rate 74 /min Dr. Bria Olsen Work Phone: [facility] 10-05-2022 08:23-0400 Respiratory rate 18 /min Dr. Bria Olsen Work Phone: [facility] 10-05-2022 08:23-0400 SaO2% (BldA) [Mass fraction] 96 % Dr. Bria Olsen Work Phone: [facility] 10-05-2022 08:23-0400 Systolic blood pressure 119 mm[Hg] Dr. Bria Olsen Work Phone: [facility] 08-28-2022 10:43-0400 Body height 182.[address] Jonh Boyd Work Phone: [facility] 08-28-2022 10:40-0400 Body mass index (BMI) [Ratio] 31.6 kg/m2 Dr. Jonh Boyd Work Phone: [facility] 08-28-2022 10:40-0400 Body temperature 98.4 [degF] Dr. Jonh Boyd Work Phone: [facility] 08-28-2022 10:40-0400 Body weight 105.[address] Jonh Boyd Work Phone: [facility] 08-28-2022 10:40-0400 Diastolic blood pressure 72 mm[Hg] Dr. Jonh Boyd Work Phone: [facility] 08-28-2022 10:40-0400 Heart rate 74 /min Dr. Jonh Boyd Work Phone: [facility] 08-28-2022 10:40-0400 Respiratory rate 22 /min Dr. Jonh Boyd Work Phone: [facility] 08-28-2022 10:40-0400 SaO2% (BldA) [Mass fraction] 95 % Dr. Jonh Boyd Work Phone: [facility] 08-28-2022 10:40-0400 Systolic blood pressure 116 mm[Hg] Dr. Jonh Boyd Work Phone: [facility] 07-10-2022 15:03-0400 Respiratory rate 18 /min Dr. Jonh Boyd Work Phone: [facility] 07-10-2022 09:55-0400 Body height 182.[address] Jonh Boyd Work Phone: [facility] 07-10-2022 09:55-0400 Body mass index (BMI) [Ratio] 31.3 kg/m2 Dr. Jonh Boyd Work Phone: [facility] 07-10-2022 09:55-0400 Body temperature 98.5 [degF] Dr. Jonh Boyd Work Phone: [facility] 07-10-2022 09:55-0400 Body weight 104.[address] Jonh Boyd Work Phone: [facility] 07-10-2022 09:55-0400 Diastolic blood pressure 76 mm[Hg] Dr. Jonh Boyd Work Phone: [facility] 07-10-2022 09:55-0400 Heart rate 97 /min Dr. Jonh Boyd Work Phone: [facility] 07-10-2022 09:55-0400 SaO2% (BldA) [Mass fraction] 98 % Dr. Jonh Boyd Work Phone: [facility] 07-10-2022 09:55-0400 Systolic blood pressure 114 mm[Hg] Dr. Jonh Boyd Work Phone: [facility] 06-15-2022 10:07-0400 Body height 182.[address] Jonh Boyd Work Phone: [facility] 06-15-2022 10:07-0400 Body mass index (BMI) [Ratio] 31.6 kg/m2 Dr. Jonh Boyd Work Phone: [facility] 06-15-2022 10:07-0400 Body weight 105.[address] Jonh Boyd Work Phone: [facility] 06-15-2022 10:07-0400 Diastolic blood pressure 77 mm[Hg] Dr. Jonh Boyd Work Phone: [facility] 06-15-2022 10:07-0400 Heart rate 74 /min Dr. Jonh Boyd Work Phone: [facility] 06-15-2022 10:07-0400 Respiratory rate 16 /min Dr. Jonh Boyd Work Phone: [facility] 06-15-2022 10:07-0400 Systolic blood pressure 126 mm[Hg] Dr. Jonh Boyd Work Phone: [facility] 05-29-2022 10:16-0400 Body height 182.[address] Jonh Boyd Work Phone: [facility] 05-29-2022 10:13-0400 Body mass index (BMI) [Ratio] 30.9 kg/m2 Dr. Jonh Boyd Work Phone: [facility] 05-29-2022 10:13-0400 Body temperature 97.4 [degF] Dr. Jonh Boyd Work Phone: [facility] 05-29-2022 10:13-0400 Body weight 103.[address] Jonh Boyd Work Phone: [facility] 05-29-2022 10:13-0400 Diastolic blood pressure 81 mm[Hg] Dr. Jonh Boyd Work Phone: [facility] 05-29-2022 10:13-0400 Heart rate 79 /min Dr. Jonh Boyd Work Phone: [facility] 05-29-2022 10:13-0400 Respiratory rate 22 /min Dr. Jonh Boyd Work Phone: [facility] 05-29-2022 10:13-0400 SaO2% (BldA) [Mass fraction] 97 % Dr. Jonh Boyd Work Phone: [facility] 05-29-2022 10:13-0400 Systolic blood pressure 133 mm[Hg] Dr. Jonh Boyd Work Phone: [facility] 05-22-2022 09:06-0400 SaO2% (BldA) [Mass fraction] 98 % Dr. Jonh Boyd Work Phone: [facility] 05-22-2022 07:58-0400 Body mass index (BMI) [Ratio] 30.1 kg/m2 Dr. Jonh Boyd Work Phone: [facility] 05-22-2022 07:58-0400 Body temperature 97.6 [degF] Dr. Jonh Boyd Work Phone: [facility] 05-22-2022 07:58-0400 Body weight 100.[address] Jonh Boyd Work Phone: [facility] 05-22-2022 07:58-0400 Diastolic blood pressure 74 mm[Hg] Dr. Jonh Boyd Work Phone: [facility] 05-22-2022 07:58-0400 Heart rate 77 /min Dr. Jonh Boyd Work Phone: [facility] 05-22-2022 07:58-0400 Respiratory rate 18 /min Dr. Jonh Boyd Work Phone: [facility] 05-22-2022 07:58-0400 Systolic blood pressure 107 mm[Hg] Dr. Jonh Boyd Work Phone: [facility] 02-01-2022 19:01-0500 Diastolic Blood Pressure Non-Invasive 60 1 MO GARAY MD [address] 02-01-2022 19:01-0500 Heart rate 78 /min MO GARAY MD [address] [place] [id number] 02-01-2022 19:01-0500 Systolic Blood Pressure Non-Invasive 106 1 MO GARAY MD [address] [place] [address] 02-01-2022 16:59-0500 Heart rate 77 /min MO GARAY MD [address] [place] [address] 02-01-2022 15:12-0500 Heart rate 78 /min MO GARAY MD [address] [place] [address] 02-01-2022 13:53-0500 Diastolic Blood Pressure Non-Invasive 60 1 MO GARAY MD [address] [place] [address] 02-01-2022 13:53-0500 Systolic Blood Pressure Non-Invasive 101 1 MO GARAY MD [address] [place] [address] 02-01-2022 13:17-0500 Diastolic Blood Pressure Non-Invasive 60 1 MO GARAY MD [address] [place] [address] 02-01-2022 13:17-0500 Respiratory rate 16 /min MO GARAY MD [address] [place] [address] 02-01-2022 13:17-0500 Systolic Blood Pressure Non-Invasive 103 1 MO GARAY MD [address] [place] [address] 02-01-2022 12:32-0500 Blood Pressure Cuff Size MO GARAY MD [address] [place] [address] 02-01-2022 12:32-0500 Blood Pressure Location MO GARAY MD [address] [place] [address] 02-01-2022 12:32-0500 Blood Pressure Method MO GARAY MD [address] [place] [address] 02-01-2022 12:32-0500 Reason For Taking VItal Signs MO GARAY MD [address] [place] [address] 02-01-2022 12:32-0500 Respiratory rate 16 /min MO GARAY MD [address] [place] [address] 02-01-2022 11:53-0500 Blood Pressure Cuff Size MO GARAY MD [address] [place] [address] 02-01-2022 11:53-0500 Blood Pressure Location MO GARAY MD [address] [place] [address] 02-01-2022 11:53-0500 Blood Pressure Method MO GARAY MD [address] [place] [address] 02-01-2022 11:53-0500 Reason For Taking VItal Signs MO GARAY MD [address] [place] [address] 02-01-2022 05:44-0500 Blood Pressure Cuff Size MO GARAY MD [address] [place] [address] 02-01-2022 05:44-0500 Blood Pressure Location MO GARAY MD [address] [place] [address] 02-01-2022 05:44-0500 Blood Pressure Method MO GARAY MD [address] [place] [address] 02-01-2022 05:44-0500 Body height 185.4 cm MO GARAY MD [address] [place] [address] 02-01-2022 05:44-0500 Body temperature 97.88 [degF] MO GARAY MD [address] [place] [address] 02-01-2022 05:44-0500 Body weight 96.8 kg MO GARAY MD [address] [place] [address] 02-01-2022 05:44-0500 Body weight 28.16 kg/m2 MO GARAY MD [address] [place] [address] 08-31-2021 12:11-0400 Body height 182.9 cm Yony Frias DO Work Phone: [facility] 08-31-2021 12:11-0400 Body weight 100.7 kg Yony Frias DO Work Phone: [facility] 08-31-2021 12:11-0400 Diastolic blood pressure 79 mm[Hg] Yony Spencerr DO Work Phone: [facility] 08-31-2021 12:11-0400 Heart rate 84 /min Yony Frias DO Work Phone: [facility] 08-31-2021 12:11-0400 SaO2% (BldA) [Mass fraction] 95 % Yony Frias DO Work Phone: [facility] 08-31-2021 12:11-0400 Systolic blood pressure 118 mm[Hg] Yony Frias DO Work Phone: [facility] Encounters Encounter Date Encounter Type Care Provider Facility Start: 12-15-2024 End: 12-15-2024 ambulatory Calvin Jasso Facility:[facility] Start: 11-18-2024 End: 11-18-2024 ambulatory JEANNIE DAVID Facility:[facility] Start: 11-04-2024 End: 11-04-2024 ambulatory JEANNIE HERNANDEZ Facility:[facility] Start: 10-31-2024 End: 10-31-2024 ambulatory Delores Pablo Facility:[facility] Start: 10-28-2024 End: 11-01-2024 ambulatory JEANNIE DAVID SENIOR QUALITY ASSURANCE SPECIALIST-SWITCHBOARD AND CONTROL ROOM OPERATOR Facility:[facility] Start: 10-28-2024 End: 11-01-2024 Outreach Lab JEANNIE DAVID SENIOR QUALITY ASSURANCE SPECIALIST-SWITCHBOARD AND CONTROL ROOM OPERATOR [facility] Start: 10-08-2024 End: 10-08-2024 ambulatory JEANNIE HERNANDEZ Facility:[facility] Start: 09-29-2024 End: 09-29-2024 ambulatory JEANNIE DAVID Facility:[facility] Start: 09-25-2024 End: 09-25-2024 ambulatory Elda Villegas NP Facility:[facility] Start: 09-05-2024 End: 09-05-2024 ambulatory Delores Pablo [facility] Start: 09-04-2024 ambulatory Calvin Jasso Facility [facility] Start: 09-04-2024 End: 09-04-2024 ambulatory Calvin Jasso Facility:[facility] Start: 07-28-2024 End: 07-28-2024 ambulatory JEANNIE DAVID SENIOR QUALITY ASSURANCE SPECIALIST-SWITCHBOARD AND CONTROL ROOM OPERATOR Facility:[facility] Start: 07-28-2024 End: 07-28-2024 Patient encounter procedure MICHELLE MOORE SENIOR QUALITY ASSURANCE SPECIALIST - SWITCHBOARD AND CONTROL ROOM OPERATOR [facility] Start: 07-25-2024 End: 07-25-2024 ambulatory JEANNIE DAVID SENIOR QUALITY ASSURANCE SPECIALIST-SWITCHBOARD AND CONTROL ROOM OPERATOR Facility:[facility] Start: 07-25-2024 End: 07-25-2024 Patient encounter procedure JEANNIE DAVID SENIOR QUALITY ASSURANCE SPECIALIST-SWITCHBOARD AND CONTROL ROOM OPERATOR [facility] Start: 06-27-2024 End: 06-27-2024 ambulatory Raina Orozco [facility] Start: 06-19-2024 End: 06-19-2024 ambulatory JEANNIE DAVID SENIOR QUALITY ASSURANCE SPECIALIST-SWITCHBOARD AND CONTROL ROOM OPERATOR Facility:[facility] Start: 06-19-2024 End: 06-19-2024 Patient encounter procedure JEANNIE DAVID SENIOR QUALITY ASSURANCE SPECIALIST-SWITCHBOARD AND CONTROL ROOM OPERATOR [facility] Start: 06-18-2024 End: 06-18-2024 ambulatory JEANNIE DAVID SENIOR QUALITY ASSURANCE SPECIALIST-SWITCHBOARD AND CONTROL ROOM OPERATOR Facility:[facility] Start: 06-18-2024 End: 06-18-2024 Patient encounter procedure JEANNIE DAVID SENIOR QUALITY ASSURANCE SPECIALIST-SWITCHBOARD AND CONTROL ROOM OPERATOR [facility] Start: 05-14-2024 End: 05-14-2024 ambulatory Delores Pablo Facility:[facility] Start: 04-17-2024 ambulatory Elda Villegas NP Facility :[facility] Start: 04-11-2024 End: 04-11-2024 ambulatory Delores Pablo [facility] Start: 04-09-2024 ambulatory Alba Bernal Facility: [facility] Start: 03-28-2024 End: 03-28-2024 ambulatory Elda Villegas CONTAMINATED LAND CONSULTANT Facility:[facility] Start: 03-03-2024 ambulatory JEANNIE DAVID Facilit y:[facility] Start: 02-29-2024 End: 02-29-2024 ambulatory JEANNIE DAVID Facility:[facility] Start: 02-26-2024 End: 02-26-2024 ambulatory JEANNIE DAVID Facility:[facility] Start: 02-21-2024 End: 02-21-2024 ambulatory JEANNIE DAVID Facility:[facility] Start: 02-19-2024 End: 02-19-2024 ambulatory JEANNIE DAVID Facility:[facility] Start: 02-19-2024 End: 02-19-2024 ambulatory JEANNIE DAVID Facility:[facility] Start: 01-21-2024 End: 01-21-2024 ambulatory JEANNIE DAVID Facility:[facility] Start: 01-14-2024 End: 01-14-2024 ambulatory Delores Pablo Facility:[facility] Start: 01-08-2024 End: 01-08-2024 ambulatory Alba Bernal Facility:[facility] Start: 12-19-2023 End: 12-19-2023 ambulatory LAURA WARREN SENIOR QUALITY ASSURANCE SPECIALIST-SWITCHBOARD AND CONTROL ROOM OPERATOR Facility:[facility] Start: 12-19-2023 End: 12-19-2023 Patient encounter procedure LAURA WARREN SENIOR QUALITY ASSURANCE SPECIALIST-SWITCHBOARD AND CONTROL ROOM OPERATOR [facility] Start: 12-01-2023 End: 12-01-2023 Evaluation and management of inpatient Cabrera Thomas DO Work Phone: [facility] Respiratory Unit 7W Comment on above: Fall, initial encoun ter (Primary Dx) Start: 11-30-2023 End: 12-01-2023 Emergency department patient visit MUMTAZ ESCALANTE [facility] Start: 06-20-2023 End: 06-20-2023 ambulatory [facility] Work Phone: Start: 06-20-2023 End: 06-20-2023 Patient encounter procedure [facility] Work Phone: Start: 04-26-2023 Non-patient / Non-visit Dr. Ortega Work Phone: [facility] Start: 04-25-2023 End: 04-25-[address] Tim Alvarado Work Phone: [facility] Work Phone: Start: 04-25-2023 End: 04-25-[address] Tim Alvarado Work Phone: [facility]-Pulmonary Services/Neurology Work Phone: Start: 03-21-2023 End: 03-21-[address] [facility] Work Phone: Start: 03-01-2023 End: 03-01-[address] Tim Alvarado Work Phone: [facility] Work Phone: Start: 01-24-2023 End: 01-24-2023 Emergency department patient visit Dr. Bria Olsen Work Phone: [facility]Emergency [facility] Work Phone: Start: 01-22-2023 End: 01-22-[address] Bria Olsen Work Phone: [facility] Work Phone: Start: 01-22-2023 End: 01-22-[address] Bria Olsen Work Phone: [facility]-Radiology, [facility] Work Phone: Start: 01-08-2023 End: 01-08-[address] Bria [facility]lsen [facility] Work Phone: Start: 11-10-2022 Non-patient / Non-visit Dr. Jairo Olsen Work Phone: [facility] Start: 11-10-2022 End: 11-10-[address] Bria Olsen Work Phone: [facility] Work Phone: Start: 11-06-2022 End: 11-06-[address] Bria Olsen Work Phone: [facility] Work Phone: Start: 10-17-2022 End: 10-17-2022 [facility] Start: 10-17-2022 End: 10-17-2022 Emergency department patient visit [facility] Start: 10-05-2022 End: 10-05-[address] Bria [facility]lsen [facility] Work Phone: Start: 08-28-2022 End: 08-28-[address] Jonh Boyd [facility] Work Phone: Start: 08-15-2022 Non-patient / Non-visit Dr. Frazier Work Phone: [facility] Start: 08-14-2022 End: 08-14-[address] Jonh Boyd Work Phone: [facility] Work Phone: Start: 08-14-2022 End: 08-14-[address] Jonh Boyd Work Phone: [facility]-Pulmonary Services/Neurology Work Phone: Start: 07-18-2022 Non-patient / Non-visit Dr. Frazier Work Phone: [facility] Start: 07-18-2022 End: 07-18-[address] Jonh Boyd Work Phone: [facility] Work Phone: Start: 07-18-2022 End: 07-18-[address] Jonh Boyd Work Phone: [facility] Start: 07-12-2022 End: 07-12-[address] Jonh Boyd Work Phone: [facility] Work Phone: Start: 07-12-2022 End: 07-12-[address] Jonh Boyd Work Phone: [facility]-Laboratory Start: 07-10-2022 End: 07-10-[address] Jonh Boyd Work Phone: [facility]-Sleep Lab Start: 07-10-2022 End: 07-10-2022 Emergency department patient visit Dr. Jonh Boyd Work Phone: [facility]-Emergency Department Start: 06-16-2022 End: 06-16-[address] Jonh Boyd Work Phone: [facility] Work Phone: Start: 06-16-2022 End: 06-16-[address] Jonh Boyd Work Phone: [facility]-Pulmonary Services/Neurology Start: 06-15-2022 End: 06-15-[address] Jonh Boyd Work Phone: [facility] Start: 06-12-2022 End: 06-12-[address] Jonh Boyd Work Phone: [facility] Work Phone: Start: 06-12-2022 End: 06-12-[address] Jonh Boyd Work Phone: [facility] Start: 05-29-2022 End: 05-29-[address] [facility] Start: 05-25-2022 Non-patient / Non-visit Dr. Frazier Work Phone: [facility] Start: 05-25-2022 End: 05-25-[address] Jonh Boyd Work Phone: [facility] Work Phone: Start: 05-25-2022 End: 05-25-[address] Jonh Boyd Work Phone: [facility]-Pulmonary Services/Neurology Start: 05-24-2022 Non-patient / Non-visit Dr. Frazier Work Phone: [facility] Start: 05-22-2022 End: 05-22-[address] [facility] Start: 05-05-2022 ambulatory ELDA HUNTER MD Fac ility:[facility] Start: 02-01-2022 End: 02-01-2022 ambulatory MO GARAY MD Facility:[facility] Start: 02-01-2022 End: 02-01-2022 SAME DAY STAY MO GARAY MD [facility] Start: 01-26-2022 ambulatory Monroe Love Facility :[facility] Start: 09-06-2021 End: 09-06-2021 Subsequent hospital visit by physician Provider [facility] Comment on above: HEMOPTYSIS, CHRONIC OBSTRUCTIVE PULMONARY DISEASE Start: 09-01-2021 Telephone encounter Shanel Re [facility] Comment on above: Smoking Cessation Procedure Start: 08-31-2021 End: 08-31-2021 Patient encounter procedure Yony Newman Hamzah DO Work Phone: [facility] Pulmonary/Sleep[facility] Comment on above: Hemoptysis (Primary Dx); Tobacco use current; Chronic obstructive pulmonary disease, unspecified COPD type (HCC); SOB (shortness of breath) on exertion; 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; History of 2019 novel coronavirus disease (COVID-19) Start: 12-20-2016 Ambulatory MERLY NELLY [facility] Start: 11-20-2016 Ambulatory Dylan Sherita [facility] Start: 09-19-2016 Ambulatory Dylan Sherita [facility] Start: 08-06-2016 End: 08-07-2016 Emergency department patient visit NO REFERRING DR Facility:[facility] Procedures Date Procedure Procedure Detail Performing [...] or older (1 - 1-dose 60+ series) [facility] Start: 11-30-2024 Creatinine measurement Creatinine Le laura [facility] Start: 11-30-2024 Potassium measurement Potassium Leve l [facility] Start: 2024 Zoster Vaccines (1 of 2) Zoste r Vaccines (1 of 2) [facility] Start: 10-21-2023 COVID-19 Vaccine (2022- season) COVID-19 Vaccine ( season) [facility] Start: 10-21-2023 Influenza vaccination Influenza Vacc ine (#1) [facility] Start: 01-24-2023 [facility] Start: 10-20-2021 Influenza vaccination INFLUENZA (#1) [facility] Start: 02-10-2020 Pneumococcal Vaccine : Pediatrics (0 to 5 Years) and At-Risk Patients (6 to 64 Years) (2 of 2 - PPSV23 or PCV20) Pneumococcal Vaccine: Pediatrics (0 to 5 Years) and At-Risk Patients (6 to 64 Years) (2 of 2 - PPSV23 or PCV20) [facility] Start: 08-07-2019 DIABETES SCREEN DIABETES SCREEN [facility] Start: 07-05-2019 COLOGUARD (FIT-DNA) COLOGUARD (FIT-D NA) [facility] Start: 07-05-2019 Colonoscopy COLONOSCOPY [facility] Start: 07-05-2019 COLORECTAL CANCER SCREENING COLORECTAL CANCER SCREENING [facility] Start: 07-05-[address] COLONOGRAPHY [facility] Start: 07-05-2019 FECAL OCCULT BLOOD FECAL OCCULT BLOO D [facility] Start: 07-05-2019 SIGMOIDOSCOPY SIGMOIDOSCOPY [facility] Start: 05-02-2019 LIPID SCREEN LIPID SCREEN [facility] Start: 05-02-2015 Hepatitis B surface antibody level LDL CHOLESTEROL [facility] Start: 1993 DTaP/Tdap/Td Vaccine s (1 - Tdap) DTaP/Tdap/Td Vaccines (1 - Tdap) [facility] Start: 1993 Hepatitis B Vaccines (1 of 3 - 19+ 3-dose series) Hepatitis B Vaccines (1 of 3 - 19+ 3-dose series) [facility] Start: 1993 Urine microalbumin profile DTAP,TDAP ,TD (1 - Tdap) [facility] Start: 1992 ANNUAL PCP TEAM HOSE BUILDER CECI DISEASE VISIT ANNUAL PCP TEAM CHRONIC DISEASE VISIT [facility] Start: 1992 Diabetes mellitus screening Diabetes Screening [facility] Start: 1992 HEPATITIS C SCREENING HEPATITIS C [facility] Start: 1992 Hepatitis C screening Hepatitis C [facility] Start: 1992 HIV SCREENING HIV SCREENING [facility] Start: 1992 SPIROMETRY SPIROMETRY [facility] Start: 1986 Adult depression scr eening assessment DEPRESSION SCREENING [facility] Start: 1986 Depression Monitoring Depression [facility] Start: 1980 PNEUMOCOCCAL (1 - PCV) PNEUMOCOCCAL (1 - PCV) [facility] Start: 07-05-1975 MMR Vaccines (1 of 1 - Standard series) MMR Vaccines (1 of 1 - Standard series) [facility] Start: 01-04-1975 COVID-19 VACCINE (#1) COVID-19 VACCI NE (#1) [facility] Start: 1974 Echocardiography Echocardiogram [facility] Start: 1974 HIV screening HIV Screening [facility] Start: 1974 Lipid panel Lipid Panel [facility] Start: 1974 Screening for malign ant neoplasm of colon [facility] End: 09-30-2022 BRONCHOSCOPY BRONCHOSCOPY Endoscopy Routine Hemoptysis 1 Occurrences starting 08/31/2021 until 09/30/2022 [facility] Work Phone: Comment on above: 1 Occurrences starti ng 08/31/2021 until 09/30/2022 CT Chest W contrast IV [facility] CTA Head vessels and Neck vessels W contrast IV [facility] Inhalation challenge test report Document --W methacholine inhaled [facility] Patient Education [facility] Work Phone: Patient referral [facility] Work Phone: Radionuclide imaging of perfusion of myocardium under exercise stress [facility] End: 09-30-2022 SPIROMETRY BASELINE ONLY SPIROMETRY BASELINE ONLY PFT Routine SOB (shortness of breath) on exertion 1 Occurrences starting 08/31/2021 until 09/30/2022 [facility] Work Phone: Comment on above: 1 Occurrences starti ng 08/31/2021 until 09/30/2022 Tobacco use cessatio n education [facility] Immunizations Immunization Date Immunization Notes Care Provider Klaudia lai 12-02-2023 influenza vaccine tiss-cult subunt (Flucelvax) STANDARD-DOSE injection 0.5 mL Swapferit DO Work Phone: [facility] 12-16-2019 influenza virus vacc ine, unspecified formulation CabreraHuodongxingel DO Work Phone: [facility] Payers Date Payer Category Payer Medicare [id number] 2024 Private Health Insurance [id number] 2024 Private Health Insurance [id number] 2023 Unknown 2022 Self-pay 2022 Medicaid [id number] 2022 Medicaid [id number] 2022 Unknown [id number] 2021 Unknown [employer] Go PPO [id number] 2021-Present [phone] [address] [place] [address] PPO [id number] 1974 Unknown [id number] 2.16.840.1.834063.3.579.2.6 27 1974 Unknown [id number] 2.16.840.1.857098.3.579.2.6 27 1974 Unknown [id number] 2.16.840.1.301670.3.579.2.6 27 1974 Unknown [id number] 2.16.840.1.741523.3.579.2.6 51 1974 Unknown [id number] 2.16.840.1.860568.3.579.2.6 27 1974 Unknown [id number] 2.16.840.1.702451.3.579.2.6 27 1974 Unknown [id number] 2.16.840.1.187653.3.579.2.6 27 1974 Unknown [id number] 2.16.840.1.930789.3.579.2.6 27 1974 Unknown [id number] 2.16.840.1.545429.3.579.2.6 27 1974 Unknown [id number] 2.16.840.1.430488.3.579.2.6 27 Unknown [id number] Unknown [id number] 2.16.840.1.795396.3.579.2.4 62 Unknown [id number] 2.16.840.1.373121.3.579.2.4 62 Unknown [id number] 2.16.840.1.167108.3.579.2.4 62 Unknown [id number] 2.16.840.1.017125.3.579.2.4 62 Unknown [id number] 2.16.840.1.625151.3.579.2.4 62 Unknown [id number] 2.16.840.1.720457.3.579.2.4 62 Unknown [id number] 2.16.840.1.885738.3.579.2.4 62 Unknown [id number] 2.16.840.1.786734.3.579.2.4 62 Unknown [id number] 2.16.840.1.464843.3.579.2.4 62 Unknown [id number] 2.16.840.1.237720.3.579.2.4 62 Unknown [id number] 2.16.840.1.615326.3.579.2.4 62 Unknown [id number] 2.16.840.1.806913.3.579.2.4 62 Unknown [id number] 2.16.840.1.455292.3.579.2.4 62 Unknown [id number] 2.16.840.1.289206.3.579.2.4 62 Unknown [id number] 2.16.840.1.454631.3.579.2.4 62 Unknown [id number] 2.16.840.1.389385.3.579.2.4 62 Unknown [id number] 2.16.840.1.301511.3.579.2.4 62 Unknown [id number] 2.16.840.1.339403.3.579.2.4 62 Unknown [id number] 2.16.840.1.102594.3.579.2.4 62 Unknown [id number] 2.16.840.1.547523.3.579.2.4 62 Unknown [id number] 2.16.840.1.830200.3.579.2.4 62 Unknown [id number] 2.16.840.1.227133.3.579.2.4 62 Unknown [id number] 2.16.840.1.413448.3.579.2.4 62 Unknown [id number] 2.16.840.1.808476.3.579.2.4 62 Unknown [id number] 2.16.840.1.661044.3.579.2.4 62 Unknown [id number] 2.16.840.1.221594.3.579.2.4 62 Unknown [id number] 2.16.840.1.636938.3.579.2.4 62 Unknown [id number] 2.16.840.1.070314.3.579.2.4 62 Social History Date Type Detail Facility Start: 02-20-[address] [facility] Start: 02-20-1996 History of tobacco use Smoker [facility] Start: 08-31-2021 End: 12-01-2023 Cigarettes smoked current (pack per day) - Reported 2 [facility] Start: 08-31-2021 Tobacco use and exposure Smokeless tobacco non-user [facility] Start: 08-31-2021 Alcohol intake Ex-drinker (finding) [facility] Start: 08-31-2021 Tobacco Comment now down to 1. 5 packs daily 08/31/2021 [facility] Start: 1975 Sex Assigned At Not on file [facility] Start: 08-21-2021 End: 08-31-2021 Exposure to SARS-CoV-2 (event) Not sure [facility] Start: 12-28-2021 Tobacco smoking status Heavy t obacco smoker (finding) [facility] Start: 1975 Sex Assigned At Male A [facility] Start: 05-29-2022 End: 03-21-2023 Tobacco smoking status NHIS Unknown if ever smoked [facility] End: 10-19-2015 History of tobacco use Cigarette Smoker [facility] Start: 01-02-2017 Alcoholic beverage intake Current non-drinker of alcohol (finding) [facility] Start: 12-01-2023 [facility] Utilities Lillie Luevano [facility] Has the [employer], [employer], or [employer] company threatened to shut off services in [...] got money to buy more. Never true [facility] Tobacco Nicotine Use: 1 pack daily. Type: Cigarettes. Tobacco use per day: 20. [facility] Tobacco smoking status [facility] Start: 03-12-2019 Sex Male (finding) [facility] Functional Status Date Assessment Result Facility 10-17-2022 Functional Status Standard Safet y ID band on, Call device within reach, Bed in low position, Wheels locked, Upper/Half-Length side-rails up, Bedside Cart Locked, Safety level maintained [facility] 02-01-2022 Functional Status Ambulating in bahena, Ambulating in room [facility] 02-01-2022 Functional Status [facility] 02-01-2022 Functional Status Standard Safet y Safety level maintained [facility] 02-01-2022 Functional Status [facility] 02-01-2022 Functional Status Maintained [facility] Mental Status Date Assessment Result Facility 01-24-2023 Cognitive function Voice/Name [facility] Work Phone: 10-17-2022 Mental Status Orientation Oriented x 4 [facility] 02-01-2022 Mental Status Orientation Oriented x 4 [facility] 02-01-2022 Mental Status [facility] 02-01-2022 Mental Status [facility] Clinical Notes 08-31-2021 to 12-15-2024 Note Date & Type Note Facility 12-15-2024 Note [facility] Medical Records Department [address] [place] [address] History Physical Exam 12/15/24 0715 MR#: [id number] Acct: [id number] Name: DONTAE PARRA Rep #: [id number] : 1975 49 From: Calvin Jasso DO PCP: JOEL CANTOR Status:[facility] Location: [place] [address] HPI - General General Date of Admission: 12/15/24 Date of Service: 12/15/24 HPI Narrative DONTAE PARRA, is a 49 M who presents [Chief Complaint: GERD Details: DONTAE PARRA is a 49 M who presents to the office today for follow-up. BGI established 06/27/2024 with concerns for lower GI bleeding and constipation. Past medical history of tobacco use, hyperlipidemia, stroke, GERD, COPD, asthma, coronary disease, hypertension. Patient with 5 days of constipation and pain. Patient tried MiraLAX and mag citrate. This produced a bowel movement that was mostly water with blood in it. Colonoscopy 09/04/2024 - Congested mucosa in the recto-sigmoid colon. Biopsied. - Stool at the splenic flexure and in the transverse colo Pathology: No specific pathologic change OV 11/18/2024 patient no longer having blood in his stool. Patient was advised to follow-up with GI for uncontrolled GERD possibly exacerbating his pulmonary disease. Patient endorsing history of GERD for many years. He has been on a omeprazole 40 mg daily for many years. He continues to have heartburn almost daily. He has vomiting after eating and when he has an episode of coughing. Last EGD was about 6 years ago where they scraped his throat. Patient having difficulty swallowing solids and liquids. He is unsure how often. [facility] Medical History History of echocardiogram Wears dentures Wears glasses [...] heart failure Atherosclerosis of coronary artery of augustine heart without angina pectoris Noncompliance with medications Essential hypertension COPD (chronic obstructive pulmonary disease) Asthma CAD (coronary artery disease) Home Medications ???Medication ???Instructions ???Recorded ???Last Taken ???Type albuterol sulfate 2.5 mg/3 mL 2.5 mg inhalation Q4H PRN 05/22/22 Unknown History (0.083 %) solution for nebulization shortness of breath or wheezing aspirin 81 mg tablet,delayed 81 mg PO DAILY 05/22/22 12/10/24 H istory release magnesium oxide 250 mg PO DAILY 05/22/22 Unknown H istory omeprazole 40 mg capsule,delayed 40 mg PO DAILY 05/22/22 Unknown Hi story release carvedilol phosphate 20 mg 20 mg PO DAILY 06/15/22 Unknown Hi story capsule,ext.[id number] multiphase potassium chloride 20 mEq 20 meq PO DAILY 01/24/23 Unknown H istory tablet,extended release(part/cryst) hydrochlorothiazide 25 mg tablet 25 mg PO DAILY #30 tabs 05/25/23 U nknown Rx nitroglycerin 0.4 mg sublingual 0.4 mg sublingual Q5-15M PRN chest 09/17/23 Unknown History tablet pain ranolazine 500 mg tablet,extended 500 mg PO BID #60 tabs 09/17/23 U nknown Rx release,12 hr bupropion HCl (smoking deter) 150 150 mg PO BID #60 tabs 11/06/23 U nknown Rx mg tablet,12 hr sustained-release(smoking deterrent) clopidogrel 75 mg tablet 75 mg PO DAILY #90 tabs 11/08/23 1 Rx prazosin 1 mg capsule 1 mg PO QHS #30 caps 04/22/24 Unkn own Rx albuterol sulfate 90 mcg/actuation 2 puff inhalation Q4H PRN 12/15/24 Rx aerosol inhaler shortness of breath or wheezing #8.5 grams budesonide 0.5 mg/2 mL suspension 0.5 mg (2 mL) inhalation Q12H Unknown Rx for nebulization BREATHING #60 mL fluticasone furoate 200 1 inh inhalation Q24H #30 ea 09/05 Unknown Rx mcg/actuation blister powder for inhalation (Arnuity Ellipta) ipratropium 0.5 mg-albuterol 3 mg 3 ml inhalation Q6H BREATHING #18 0 09/05/24 Unknown Rx (2.5 mg base)/3 mL nebulization mL soln mepolizumab 100 mg/mL subcutaneous 100 mg subcut Q4W #1 mL 09/05/24 Unknown Rx auto-injector (Nucala) montelukast 10 mg tablet 10 mg PO QPM #90 tabs 09/05/24 Unk nown Rx umeclidinium 62.5 mcg-vilanterol 1 inh inhalation Q24H #60 ea 09/05 Unknown Rx 25 mcg/actuation powdr for inhalation (Anoro Ellipta) rosuvastatin 40 mg tablet 40 mg (more content not included)... [facility] 09-04-2024 Note [facility] Medical Records Department [address] [place] [address] History Physical Exam 09/04/24 0652 MR#: [id number] Acct: [id number] Name: DONTAE PARRA Rep #: [id number] : 1975 49 From: Calvin Jasso DO PCP: JOEL CANTOR Status:[facility] Location: [place] [address] HPI - General General Date of Admission: [...] nightly use of oxygen at 3 lpm. [facility] Medical History Wears dentures Wears [...] failure Hyperlipidemia Atherosclerosis of coronary artery of augustine heart without angina pectoris Chest pain Noncompliance [...] mg PO DAILY 06/15/22 Unknown Hi story capsule,ext.[id number] multiphase montelukast 10 mg tablet 10 mg [...] #90 tabs 11/08/23 (more content not included)... [facility] 07-25-2024 Note Exam Date Time Procedure Performing Provider Status 07/25/24 1:[address] Head or Brain w/o Contrast NIVIA ROMERO MD; Auth (Verified) [id number] ORIGINAL HISTORY: TIA COMPARISON: No TECHNIQUE: Routine [...] Date: 07/25/2024 2:32:39 PM [facility]* Exam Date Time Procedure Performing Provider Status 06/18/24 4:[address] Abd/Pelvis w/ IV Contrast Only LEVON PASCUAL MD; Auth (Verified) [id number] ORIGINAL EXAMINATION: CT OF THE ABDOMEN AND [...] 06/18/2024 6:15:42 PM Ordering Provider: JEANNIE HERNANDEZ [facility]10-30-2024 Note ORIGINAL EXAMINATION: TWO XRAY VIEWS OF [...] Date: 12/19/2023 5:22:25 PM Ordering Provider: [facility] NoteDischarge Instructions Discharge Summary [address] [address] [id number] 11/30/2023 Patient: DONTAE PARRA Sex: Male : 1975 Age: 48y Thank you for visiting [facility]. You have been evaluated today by Mumtaz Holley D.O. for the following condition(s): Principal Diagnosis Acute traumatic thoracic back pain. Fall from tree. Patient Signature Facility Shopping Inspector Date/Time General Instructions with ExitWriter [address] [address] [id number] 11/30/2023 Patient: DONTAE PARRA Sex: Male : 1975 Age: 48y Thank you for visiting [facility]. You have been evaluated today by Mumtaz Holley D.O. for the following condition(s): 1 of 2 Discharge Instructions Principal Diagnosis Acute traumatic thoracic back pain. Fall from tree. [address] [place], [place] [address]10-12-2024 Nurse Note* Maurilio Johnston RN - 12/01/2023 2:34 PM EDT Pt discharging at this time. All belongings collected. Discharge packet reviewed with all questionsanswered. [id number] Nurse Note* Maurilio Johnston RN - 12/01/2023 2:34 PM EDT Pt discharging at this time. All belongings collected. Discharge packet reviewed with all questionsanswered. documented in this [facility]10-12-2024 Note Attestation with edits by Julio [...] a 48 y.o. male that presented to [facility] on 12/01/2023 and was admitted for pain control after a fall Patient reportedly fell ~ 15 feet while putting up a tree stand. Fall was mechanical in nature with no concern for syncopal event. Unclear if patient lost consciousness on impact, states he was just very out of it afterwards. Was noted at [facility] to have possible aortic aneurysm vs trauma so was transferred to [facility] for further management. EKG, CT head, and C spine were unremarkable. CTA chest performed at [facility] did not show any evidence of [...] Your Medications These medications were sent to [facility]/pharmacy #[id number] - [place], [place] - [address] FROM [place] [address] Hours: 24-hours cyclobenzaprine 5 MG tablet oxyCODONE [...] Followup Visit: Symptom resolution Abrasion healing [facility]10-12-2024 Emergency department Note* Jaz Ayoub RN - 12/01/2023 9:52 AM EDT Patient ambulatory to bathroom with steady gait Jaz Ayoub RN 12/01/23 0952 [id number] Emergency department Note* Jaz Ayoub RN - [...] Patient presents with Abdominal Injury Transfer from [place] for trauma consult. Fall from tree stand 15-17 feet. 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 [facility] HISTORY OF PRESENT ILLNESS (Location/Symptom, Timing/Onset, Context/Setting, [...] artery disease) COPD (chronic obstructive pulmonary disease) ([facility]) Emphysema of lung ([facility]) 2010 Erectile dysfunction GERD (gastroesophageal reflux disease) History of echocardiogram 10/20/2015 EF 50%, trivial MR History of percutaneous coronary intervention 02/11/2016 RICHY - prox RCA, RICHY - mid RCA, patent ramus stent, EF 50-55% Hyperlipidemia Hypertension Hypotestosteronism Presence of stent in coronary artery Restless leg STEMI (ST elevation myocardial infarction) ([facility]) 09/2015 posterior wall Tobacco use disorder SURGICAL [...] by me: none Discussions with other clinicians: [employer] Manager trauma surgery Chronic conditions impacting care: none [...] initial encounter DISPOSITION Admit PATIENT REFERRED TO: [facility] - [address] [facility] [address] Schedule an appointment as soon as possible for a visit As needed Dylan Magallon [address] [facility] [address] [facility] [phone] Schedule an appointment as soon as possible for a visit Timi Valderrama MD [address] [facility] [address] Follow up in 2 week(s) Hospital [...] Thomas DO 12/01/23 2240 documented in this [facility]10-12-2024 Emergency department Note* Jaz Ayoub RN - 12/01/2023 8:34 AM EDT Provider at bedside for constanzaal Jaz Ayoub RN 12/01/23 0834 [id number] Emergency department Note* Jaz Ayoub RN - 12/01/2023 8:04 AM EDT Patient sat up eating breakfast at this time, provided with extra juice per request, family at bedside, denies current needs at this time, call bernal within reach, care is ongoing Jaz Ayoub RN 12/01/23 0805 [id number] Emergency department Note* Jaz Ayoub RN - 12/01/2023 7:[address] Jones at bedside Jaz Ayoub RN 12/01/23 0742 [id number] History and physical note* Tonya Perkins DO [...] (2015), HTN, COPD/emphysema, HLD that presented to [facility] on 12/01/2023 from outside facility ([facility]) Patient reportedly fell from tree stand to the ground, about 15-17 feet. Unclear how fall happened,but came to consciousness on the ground and had landed on his back and hit the R side of his head. Son and found him and felt he seemed concussed on scene. CT with no acute intracranial process.Underwent CT chest at [place] which showed possible aortic aneurysm vs trauma and was transferred to [facility] for further workup In ED, CTA performed which does not show any aortic arch aneurysm. Labs at [place] include CBC andCMP, both of which are [...] artery disease) COPD (chronic obstructive pulmonary disease) ([facility]) Emphysema of lung ([facility]) 2010 Erectile dysfunction GERD (gastroesophageal reflux disease) History of echocardiogram 10/20/2015 EF 50%, trivial MR History of percutaneous coronary intervention 02/11/2016 RICHY - prox RCA, RICHY - mid RCA, patent ramus stent, EF 50-55% Hyperlipidemia Hypertension Hypotestosteronism Presence of stent in coronary artery Restless leg STEMI (ST elevation myocardial infarction) ([facility]) 09/2015 posterior wall Tobacco use disorder Past [...] - CT head + C spine at [place] clear - CTA at [facility] with no evidence of aortic aneurysm that was seen on CT chest at [place] -EKG without acute changes from [facility] - Continue to monitor mental status, avoid [...] RUBIA vs CKD - creatinine 1.4 at [place], unknown baseline - Last creatinine in our [...] Medications were sent to nearby open pharmacy. [id number] Note Attestation with edits by Julio Cesar [...] 01, 2023 TEAM: Julio César Attending: Dr. Alnaiz Subjective: Chief Complaint: fall from tree stand HPI Dontae Parra is a 48 y.o. male with PMH CAD with hx of STEMI with PCI with RICHY in proximal RCA and mid RCA (2015), HTN, COPD/emphysema, HLD that presented to [facility] on 12/01/2023 from outside facility ([facility]) Patient reportedly fell from tree stand to the ground, about 15-17 feet. Unclear how fall happened, but came to consciousness on the ground and had landed on his back and hit the R side of his head. Son and found him and felt he seemed concussed on scene. CT with no acute intracranial process. Underwent CT chest at [place] which showed possible aortic aneurysm vs trauma and was transferred to [facility] for further workup In ED, CTA performed which does not show any aortic arch aneurysm. Labs at [place] include CBC and CMP, both of which [...] and son and celestina (more content not included)...[facility]10-12-2024 History and physical note* Tonya Perkins, DO [...] (2015), HTN, COPD/emphysema, HLD that presented to [facility] on 12/01/2023 from outside facility ([facility]) Patient reportedly fell from tree stand to the ground, about 15-17 feet. Unclear how fall happened,but came to consciousness on the ground and had landed on his back and hit the R side of his head. Son and found him and felt he seemed concussed on scene. CT with no acute intracranial process.Underwent CT chest at [place] which showed possible aortic aneurysm vs trauma and was transferred to [facility] for further workup In ED, CTA performed which does not show any aortic arch aneurysm. Labs at [place] include CBC andCMP, both of which are [...] artery disease) COPD (chronic obstructive pulmonary disease) ([facility]) Emphysema of lung ([facility]) 2010 Erectile dysfunction GERD (gastroesophageal reflux disease) History of echocardiogram 10/20/2015 EF 50%, trivial MR History of percutaneous coronary intervention 02/11/2016 RICHY - prox RCA, RICHY - mid RCA, patent ramus stent, EF 50-55% Hyperlipidemia Hypertension Hypotestosteronism Presence of stent in coronary artery Restless leg STEMI (ST elevation myocardial infarction) ([facility]) 09/2015 posterior wall Tobacco use disorder Past [...] puffs in the evening. 01/22/23 Yes Historical ProviderMD montelukast (Singulair) 10 MG tablet Take 10 [...] - CT head + C spine at [place] clear - CTA at [facility] with no evidence of aortic aneurysm that was seen on CT chest at [place] -EKG without acute changes from [facility] - Continue to monitor mental status, avoid [...] RUBIA vs CKD - creatinine 1.4 at [place], unknown baseline - Last creatinine in our [...] to nearby open pharmacy. documented in this [facility]10-12-2024 Hospital Discharge instructions* Discharge Instructions* Baldo [...] the following behavioral health agencies for support: [facility] [address] [facility] [address], [facility] [phone] [facility] [address] [facility] [address], [facility] [address] [facility] [address] [facility], [facility] [phone] Should you be out of the [facility] area, you can use this resource to locate local mental health agencies: Findtreatment[employer] Victim Assistance Program- provides resources and support to victims of violent crimes, offers victim advocates for those involved in legal proceedings [phone] Should you need immediate help in coping with symptoms or should you feel at risk of harming yourself or others, please use the following crisis resources: Crisis Hotline: 408 Crisis Text Helpine: Text 0EDCU to [phone] Call 911 or go to your nearest emergency department * Discharge Instr - DANTE* Maurilio Johnston RN - 12/01/2023 2:10 PM EDT * Attachments The following attachments cannot be sent through Care Everywhere. * Concussion Discharge Instructions, Adult (Bahraini) documented in this [facility]10-12-2024 Consult note* Jimbo Calvillo MD - 12/01/2023 5:40 AM EDTAssociated Order(s): IP CONSULT TO ORTHOPAEDIC SURGERY Images from the original note were not included. Ortho Spine Consult Patient: Dontae Parra Date of : 1975 Acct: [id number] PCP: Dylan Magallon Date of Admission: 12/01/2023 [...] artery disease) COPD (chronic obstructive pulmonary disease) ([facility]) Emphysema of lung ([facility]) 2010 Erectile dysfunction GERD (gastroesophageal reflux disease) History of echocardiogram 10/20/2015 EF 50%, trivial MR History of percutaneous coronary intervention 02/11/2016 RICHY - prox RCA, RICHY - mid RCA, patent ramus stent, EF 50-55% Hyperlipidemia Hypertension Hypotestosteronism Presence of stent in coronary artery Restless leg STEMI (ST elevation myocardial infarction) ([facility]) 09/2015 posterior wall Tobacco use disorder Past [...] last72 hours. No lab exists for component: DIANNEES No results for input(s): INR in the [...] -Orthopaedic surgery will sign off. Please page contract associate manager orthopaedic resident for questions or concerns. Baldo Gastelum MD PGY-2 Orthopedic Surgery 12/01/2023 7:14 AM Jimbo Calvillo MD Orthopaedic Surgery, PGY-3 12/01/2023 7:21 AM [facility] Phone: [phone] 297-253710-12-2024 Consult note* Jimbo Calvillo MD - 12/01/2023 5:40 AM EDTAssociated Order(s): IP CONSULT TO ORTHOPAEDIC SURGERY Images from the original note were not included. Ortho Spine Consult Patient: Dontae Parra Date of : 1975 Acct: [id number] PCP: Dylan Magallon Date of Admission: 12/01/2023 [...] artery disease) COPD (chronic obstructive pulmonary disease) ([facility]) Emphysema of lung ([facility]) 2010 Erectile dysfunction GERD (gastroesophageal reflux disease) History of echocardiogram 10/20/2015 EF 50%, trivial MR History of percutaneous coronary intervention 02/11/2016 RICHY - prox RCA, RICHY - mid RCA, patent ramus stent, EF 50-55% Hyperlipidemia Hypertension Hypotestosteronism Presence of stent in coronary artery Restless leg STEMI (ST elevation myocardial infarction) ([facility]) 09/2015 posterior wall Tobacco use disorder Past [...] -Orthopaedic surgery will sign off. Please page contract associate manager orthopaedic resident for questions or concerns. Baldo Gastelum MD PGY-2 Orthopedic Surgery 12/01/2023 7:14 AM Jimbo Calvillo MD Orthopaedic Surgery, PGY-3 12/01/2023 7:21 AM documented in this [facility]10-12-2024 Physician Emergency department Note* Missy Jones DO - 12/01/2023 2:48 AM EDT EMERGENCY DEPARTMENT ENCOUNTER Pt Name: Dontae Parra Birthdate 1975 Date of evaluation: 12/01/2023 ED Provider: Missy Jones DO CHIEF COMPLAINT Chief Complaint Patient presents with Abdominal Injury Transfer from [place] for trauma consult. Fall from tree stand 15-17 feet. 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 [facility] HISTORY OF PRESENT ILLNESS (Location/Symptom, Timing/Onset, Context/Setting, [...] artery disease) COPD (chronic obstructive pulmonary disease) ([facility]) Emphysema of lung ([facility]) 2010 Erectile dysfunction GERD (gastroesophageal reflux disease) History of echocardiogram 10/20/2015 EF 50%, trivial MR History of percutaneous coronary intervention 02/11/2016 RICHY - prox RCA, RICHY - mid RCA, patent ramus stent, EF 50-55% Hyperlipidemia Hypertension Hypotestosteronism Presence of stent in coronary artery Restless leg STEMI (ST elevation myocardial infarction) ([facility]) 09/2015 posterior wall Tobacco use disorder SURGICAL [...] [RP] ED Course User Index [RP] Beatriz Wilsno MD Diagnoses as of 12/01/23728 Fall, initial encounter External records reviewed: Outside hospital notes and imaging Diagnostics interpreted by me: none Discussions with other clinicians: [employer] Manager trauma surgery Chronic conditions impacting care: none [...] initial encounter DISPOSITION Admit PATIENT REFERRED TO: [facility] - [address] [facility] [address] Schedule an appointment as soon as possible for a visit As needed Dylan Magallon [address] [facility] [address] [facility] [phone] Schedule an appointment as soon as possible for a visit Timi Valderrama MD [address] [facility] [address] Follow up in 2 week(s) Hospital [...] Provider Missy Jones DO Resident 12/01/23 0731 [facility] Phone: 1(100) 212-693010-12-2024 Physician Emergency department Note* Cabrera Thomas DO [...] for clarification.) Cabrera Thomas DO Acute Care [facility] Cabrera Thomas DO 12/01/23 2880 [facility] Phone: [phone]) 642-829903-07-2024 Procedure [facility] 10-17-2022 Hospital Discharge instructions Patient Education [...] medicines you take. This includes prescription and paok-rge-ojntggr medicines, vitamins, and herbs. Ask if any [...] Open wound with redness, swelling, or pus [phone] [employer]. [address] [place] [address]. All rights reserved. This information is not intended as a substitute for professional medical care. Always follow yourhealthcare professional's instructions. Follow Up Care 10/17/2022 20:03:40 With:Go to emergency room if symptoms worsen Address:Unknown When:2-4 days With:DANILO ALVARADO MD Address: [address] [place] [address]- When:2-4 days [facility] 08-29-2023 Emergency department Discharge summary Discharge Instructions Thank you for allowing [facility] to assist you with your healthcare needs. [...] Reason: Injury to arm, Mon-Fri 8am-4:30pm: Call [phone] at 7:30am to schedule a same day appointment for testing. Please be aware there may be a short wait time. Post Acute Orders No qualifying data available. You Need to Schedule the Following Appointments Follow Up with Go to emergency room if symptoms worsen When Within 2-4 days Follow Up with DANILO ALVARADO MD When Within 2-4 days Where: [address] [place] [address]- Allergies No Known Medication Allergies Medications Please [...] medicines you take. This includes prescription and tezx-dwr-pnijugf medicines, vitamins, and herbs. Ask if any [...] Open wound with redness, swelling, or pus [phone] [employer]. [address] [place] [address], [place] [address]. All rights reserved. This information is not intended as a substitute for professional medical care. Always follow yourhealthcare professional's instructions. Additional Information VACCINATE! IT SAVES LIVES! Members of the community who have not yet received the COVID-19 vaccine and would like to receive it can visit one of [facility] vaccine clinics. There are many vaccine clinic locations within the [facility]. For locations and available times, please visit www.gettheshot.coronavirus.[place].gov/. It is important to note that some COVID mobile vaccine clinics are held outdoors and may be canceled in rainy or stormy conditions. To learn more about pediatric vaccinations (ages 5-11), we invite you to visit the [facility] webpage. https://www.[facility].org/pages/3755-Hepbf-Srizfbewnxr-Iyokgatfci-Hrzql-Kon stions.htmlTo learn more about the COVID-19 vaccine, we invite you to visit the CDC website for a list of frequently asked questions. https://www.cdc.gov/coronavirus/2019-ncov/vaccines/faq.html [facility] Patient Portal Access Instructions: Stay connected with your healthcare team and access your personal medical information anytime with the [facility] Patient Portal. If you would like a full copy of your medical records please contact the [facility] Medical Records Department Sunday through Sunday between 8a.m. and 4:30p.m. Please follow the directions below to access the portal: 1.Access the email account you provided upon registration to the [facility].2.Look for an invitation email from [facility].3.Open the email and access the invitation link: Accept Invitation to [facility]4.Fill in the required cosme to create your account. Sign into [email or web address] with your username and password that you [...] you will allow to register on the [facility] Patient Portal for access to your information. You can also access the [employer] Patient Portal on the [employer] susie. Simply click on Health Records under [facility] medical and then click on the MyWave logo. HOW TO SAFELY DISPOSE OF PRESCRIPTION [...] Call your local pharmacy or go to http://Meme Apps.SimpleHoney/2N2Ge8x to find one close to you.3.Make use of household items: Use cat litter or old coffee grounds to dispose medications if other options arenot available. Mix your drugs with these household products, seal them in an airtight container andthrow it into the garbage. Call [facility]: [phone] to be sure your drugs can be [...] aware that I should contact my doctor. Patient/Shopping Inspector Signature: Date/Time: Relationship to Patient: Witness Name/Signature: Date/Time: [facility]06-27-2023 Procedure [facility]04-06-2023 Procedure [facility]12-14-2022 Hospital Discharge instructions Patient Education 02/01/2022 [...] need to report the following to your property consultant: Any draining or oozing from the site [...] Document Reviewed: 02/06/2014 ExitCare Patient Information 2015 [employer]. This information is not intended to replace [...] until you are awake and alert. Take btbh-oth-ajpbxsw and prescription medicines only as told by [...] 11/26/2013 Document Revised: 01/18/2018 Document Reviewed: 05/27/2016 [employer] Patient Education 2020 [employer]. Follow Up Care 01/27/2022 13:32:16 With:ELDA HUNETR MD Address: [address] [place] [address]- When:03/27/2022 15:30:00 Comments:THIS APPOINTMENT WILL BE WITH DR. GARAY [facility] 12-14-2022 Summary of episode note Discharge Instructions Thank you for allowing [facility] to assist you with your healthcare needs. The following is importantdischarge information regarding your hospital visit. Your Care Team DANILO ALVARADO MD What to do next Scheduled Follow-Up Appointments Appointment Type When Where Contact InformationCV OV 03/27/2022 03:30 PM EST [facility] Follow Up Appointments Follow Up with ELDA HUNTER MD When 03/27/2022 03:30 PM EST Why: THIS APPOINTMENT WILL BE WITH DR. GARAY Where: [address] [place] [address]- The Following Activity and Diet Have Been [...] Once a day Refills: 11 Pickup at [facility] Unchanged albuterol (albuterol Continuous Inhalation [...] by mouth Once a day Pharmacy Information [facility]: [address] [place], [place] [phone] Please take this list to your next [...] may report side effects to FDA at 5-829-ETF-5858. What other drugs will affect clopidogrel? Sometimes it is not safe to use certain medications at the same time. Some drugs can affect your blood levels of other drugs you take, which may increase side effects or make the medications less effective. Tell your doctor about all your other medicines, especially: a stomach acid head scorer such as omeprazole, Nexium, or Prilosec; an antidepressant such as citalopram, fluoxetine, sertraline, Cymbalta, Effexor, Lexapro, Pristiq, or Prozac; rifampin; a blood thinner--warfarin, Coumadin, Jantoven; or NSAIDs (nonsteroidal anti-inflammatory drugs)--aspirin, ibuprofen (Advil, Motrin), naproxen (Aleve), celecoxib, diclofenac, indomethacin, meloxicam, and others. This list is not complete. Other drugs may affect clopidogrel, including prescription and hwyv-cac-stolold medicines, vitamins, and herbal products. Not all [...] to ensure that the information provided by [employer]. ('Mult[employer]') is accurate, up-to-date, and complete, but no guarantee is made to that effect. Drug information contained herein may be time sensitive. [employer] information has been compiled for use by healthcare practitioners and consumers in the [place] and therefore [employer] does not warrant that uses outside of the [place] are appropriate, unless specifically indicated otherwise. [employer] drug information does not endorse drugs, diagnose patients or recommend therapy. [employer] drug information isan informational resource designed to [...] effective or appropriate for any given patient. [employer] does not assume any responsibility for any aspect of healthcare administered with the aid of information [employer] provides. The information contained herein is not intended to cover all possible uses, directions, precautions, warnings, drug interactions, allergic reactions, or adverse effects. If you have questions about the drugs you are taking, check with your doctor, nurse or pharmacist. Copyright 1334-3431 [employer]. Version: 18.. Revision Date: 05/19/2020. Education Materials [...] need to report the following to your property consultant: Any draining or oozing from the site [...] Document Reviewed: 02/06/2014 ExitCare Patient Information 2015 [employer]. This information is not intended to replace [...] until you are awake and alert. Take vpmt-khh-ngwxbmj and prescription medicines only as told by [...] 11/26/2013 Document Revised: 01/18/2018 Document Reviewed: 05/27/2016 [employer] Patient Education 2020 [employer] Additional Information VACCINATE! IT SAVES LIVES! Members of the community who have not yet received the COVID-19 vaccine and would like to receive it can visit one of [facility] vaccine clinics. There are many vaccine clinic locations within the [facility]. For locations and available times, please visit https://gettheshot.coronavirus.[place].gov/. It is important to note that some COVID mobile vaccine clinics are held outdoors and may be canceled in rainy or stormy conditions. To learn more about pediatric vaccinations (ages 5-11), we invite you to visit the [facility] webpage. https://www.[facility].org/pages/3198-Ojjgj-Wedwefkmcsm-Dnrimwhvxh-Mmsux-Uxm stions.htmlTo learn more about the COVID-19 vaccine, we invite you to visit the [employer] website for a list of frequently asked questions. https://Kiddies Smilz/assets/Gtjdocef-wfx-Widvrexn/rcqpl-Deqtxay-Pmclbrylco _Asked-Questions.pdf [facility] Access Instructions: Stay connected with your healthcare team and access your personal medical information anytime with the [facility] Patient Portal.If you would like a full copy of your medical records, please contact the [facility] Medical Records Department, Sunday through Sunday between 8a.m. and 4:30p.m. Please follow the directions below to access the portal: 1.Access the email account you provided upon registration to the [facility].2.Look for an invitation email from [facility].3.Open the email and access the invitation link: Accept Invitation to [facility]4.Fill in the required cosme to create your account. Sign into www.[email or web address] with your username and password that you [...] you will allow to register on the [facility] Patient Portal for access to your information. You can also access the [facility] Patient Portal on the [employer] susie. Simply click on Health Records under [facility] medical and then click on the [facility] logo. [...] Call your local pharmacy or go to http://bit.SimpleHoney/0Y2Bk4l to find one close to you.3.Make use of household items: Use cat litter or old coffee grounds to dispose medications if other options arenot available. Mix your drugs with these household products, seal them in an airtight container andthrow it into the garbage. Call [facility]: [phone] to be sure your drugs can be [...] aware that I should contact my doctor. Patient/Shopping Inspector Signature: Date/Time: Relationship to Patient: Witness Name/Signature: Date/Time: [id number] Evaluation + Plan noteExtracted from: Title:History and [...] NM Myocardial Spect Rest/Stress 12/28/21 [facility] 12-14-2022 History and physical note Date of Service 02/01/22 Chief Complaint CP History of Present Illness Patient is a 46 year old male with history of CAD, tobacco use coming in for follow up He was 24 years old, he states he had ND presenting as chest heaviness and had PCI (likely LAD stent)in [place]. He then had another NSTEMI described as burning sensation in 2015 and had PCI of ramus in September and presented with angina in Jan, same year and had PCI of proximal RCA His last cath was in 07/2016 in [facility] for chest pain. He had patent RCA [...] He was last seen in ED in [place] last month for chest pain. EKG showed [...] Problem List/Past Medical History Ongoing CAD in augustine artery Hypertension Noncompliance with medications Historical No [...] MD on 02/01/2022 08:15 AM [id number] History and physical note Date of Service 02/01/22 Chief Complaint CP History of Present Illness Patient is a 46 year old male with history of CAD, tobacco use coming in for follow up He was 24 years old, he states he had ND presenting as chest heaviness and had PCI (likely LAD stent)in [place]. He then had another NSTEMI described as burning sensation in 2015 and had PCI of ramus in September and presented with angina in Jan, same year and had PCI of proximal RCA His last cath was in 07/2016 in [facility] for chest pain. He had patent RCA [...] smoke 2 PPD. He established care with [facility] in December 2019 and was ordered for [...] He was last seen in ED in [place] last month for chest pain. EKG showed [...] Problem List/Past Medical History Ongoing CAD in augustine artery Hypertension Noncompliance with medications Historical No [...] MD on 02/01/2022 08:15 AM [id number] Evaluation note* Diagnosis Onset Date Resolution Status Chest pain chronic Dyspnea on exertion chronic Essential hypertension chron ic Hyperlipidemia chronic Presence of stent in coronary artery January, chronic COPD (chronic obstructive pulmonary disease) chronic Nicotine dependence, cigarettes, uncomplicated chronic [facility] Work Phone: 1(555) 487-161211-09-2022 Evaluation + Plan note Future Scheduled Tests Laboratory* Lipid Profile 12/28/21 Radiology* NM Myocardial Spect Rest/Stress 12/28/21 [facility] 07-14-2022 Miscellaneous Notes* Telephone Encounter - Nadine Craig - 09/01/2021 4:35 PM EDT Patient notified * Telephone Encounter - Sabra Chapman MA - 09/01/2021 4:23 PM EDT Attempted to call patient but there was no answer. Left a message on SplitSecnd requesting a return call. Sabra Chapman MA [...] the Covid test. He will be in [place]. Is there anything else he can do or should he be rescheduled? Please advise, thanks. Sabra Chapman MA * Telephone Encounter - Sabra Chapman MA - 09/01/2021 9:39 AM EDT Patient scheduled for Bronch on 09/06/2021 at 7:30 am. He has his Covid test on 09/03/2021 at 8:20 am at [facility] lab. Faxed orders. Left message for patient to call back. Can I get this Covid order signed? Thanks. Sabra Chapman MA documented in this encounterUniversity Hospitals Tripoint [facility] Center07-14-2022 Miscellaneous Notes* [facility] - [facility]/01/[facility]21 3:36 PM EDT Smoking Cessation Navigation Outcome of contact: Left Message Comments: A voicemail has been left for this patient regarding Tobacco Cessation support options. If this patient has any further questions they can email us at [email or web address] or call us at [phone]. [employer] Acid Cleaner/Smoking Cessation Navigator: [facility] documented in this encounterUniversity Hospitals Tripoint Medical Center07-13-2022 NoteHNO ID: [id number] Author: Yony Frias DO Service: ? Author Type: Physician Type: Progress Notes Filed: 08/31/2021 12:51 PM Note Text: [facility] Department of Pulmonary AND Sleep [...] pain, pleurisy, wasting syndrome or weight loss. ISabra MA, transcribing for Yony Frias DO. HISTORY [...] viral - Restless legs - Stroke (cerebrum) ([facility]) PAST SURGICAL HISTORY Procedure Laterality Date [...] Negative. Musculoskeletal: Negative. Sk (more content not included)...[facility]07-13-2022 Instructions* Patient Instructions* Sabra Chapman MA - 08/31/2021 12:39 PM EDT Please hold you aspirin starting today (August 31, 2021). Will call with date and time of Lung scope (Bronchoscopy), will make follow up at this time. documented in this encounterUniversity Hospitals Tripoint Medical Center07-13-2022 History of Present illness Narrative* Yony Frias DO - 08/31/2021 12:00 PM EDT [facility] Department of Pulmonary & Sleep [...] Neuropathy Pneumonia, viral Restless legs Stroke (cerebrum) ([facility]) PAST SURGICAL HISTORY Procedure Laterality Date HAND [...] ICD10: R06.02 5. 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- ICD9: 414.01, ICD10: [...] MA. Yony Frias DO documented in this encounterUniversity Hospitals Tripoint Medical CenterDisrutland [facility] summary Author Jose R Schmitz [facility] January 24, 2023 3:53am Note Date/Time January 24, 2023 2 :43am [facility] Medical Records Department [address] [place] [address] Emergency Department Summary 01/24/23 MR#: [id number] Acct: [id number] Name: DONTAE PARRA Rep #:[id number] : 1975 47 From: Jose R Schmitz [...] secondary to this comes in for evaluation [facility] Medical History Abdominal distension (gaseous) Anxiety Asthma Atherosclerosis of coronary artery of augustine heart without angina pectoris CAD (coronary artery [...] Last Taken Unknown] carvedilol phosphate 20 mg capsule,ext.hdhjvku20fz multiphase 20 mg PO DAILY 06/15/22 [History [...] % (Auto) 66.4 Lymph % (Auto) 23.9 [place] % (Auto) 6.8 Eos % (Auto) 2.0 [...] your Primary Care Provider. Call [facility] ([phone]) or report to the closest Emergency Room. Call 911 if necessary. 01/24/23 0353 <Electronically signed by Jose R Schmitz DO> Cosigner Signature (if applicable): CC: DANILO ALVARADO ~ Signed [facility] Work Phone: Evaluation + Plan note Future Appointments Appointment Date:03/19/2024 07:00:00 AM Scheduled Provider:JEANNIE HERNANDEZ Location:[facility] Appointment Type: OV Future Scheduled Tests Laboratory* Lipid Profile 03/14/24 * Lipid Profile 09/20/23 * Albumin/Creatinine Ratio, Random Urine 09/12/23 * Complete Metabolic Panel 03/14/24 * Complete Metabolic Panel 09/20/23 [facility] Evaluation + Plan note Future Appointments Appointment Date:09/17/2024 09:00:00 AM Scheduled Provider:JEANNIE HERNANDEZ Location:[facility] Appointment Type:PC OV Future Scheduled Tests Laboratory* Magnesium Level 09/16/24 * Testosterone Level Total 09/16/24 * Lipid Profile 03/14/24 * Lipid Profile 09/20/23 * Lipid Profile 09/16/24 * Albumin/Creatinine Ratio, Random Urine 09/12/23 * Albumin/Creatinine Ratio, Random Urine 09/16/24 * Complete Metabolic Panel 03/14/24 * Complete Metabolic Panel 09/20/23 * Complete Metabolic Panel 09/16/24 [facility] Evaluation + Plan note Future Appointments Appointment Date:09/17/2024 09:00:00 AM Scheduled Provider:JEANNIE HERNANDEZ [email or web address] Location:[facility] Appointment Type:PC OV Future Scheduled Tests Laboratory* Magnesium Level 09/16/24 * Testosterone Level Total 09/16/24 * Complete Blood Count 12/18/24 * Lipid Profile 03/14/24 * Lipid Profile 09/20/23 * Lipid Profile 09/16/24 * Albumin/Creatinine Ratio, Random Urine 09/12/23 * Albumin/Creatinine Ratio, Random Urine 09/16/24 * Complete Metabolic Panel 03/14/24 * Complete Metabolic Panel 09/20/23 * Complete Metabolic Panel 09/16/24 [facility] Evaluation + Plan note Future Appointments Appointment Date:09/17/2024 09:00:00 AM Scheduled Provider:JEANNIE HERNANDEZ Location:[facility] Appointment Type:PC OV Future Scheduled Tests [...] Panel 09/16/24 * COVID/FLU/RSV PCR Screen 07/28/24 [facility] Evaluation + Plan note Future Appointments Appointment Date:03/18/2025 08:30:00 AM Scheduled Provider:JEANNIE HERNANDEZ Location:[facility] Appointment Type: OV Future Scheduled Tests Laboratory* TSH with Reflex to FT4 10/29/24 * Throat Culture 07/28/24 * Lipid Profile 03/14/24 * Albumin/Creatinine Ratio, Random Urine 09/16/24 * Vitamin D Level 10/29/24 * Complete Metabolic Panel 03/14/24 * COVID/FLU/RSV PCR Screen 07/28/24 [facility] Evaluation note* Diagnosis Hemoptysis- Primary Hemoptysis, unspecified Tobacco use current Chronic obstructive pulmonary disease, unspecified COPD type (HCC) SOB (shortness of breath) on exertion Shortness of breath 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 History of 2019 novel coronavirus disease (COVID-19) [facility] Diagnosis Onset Date Resolution Status Hemoptysis acute Nicotine addiction acute Primary snoring acute Atherosclerosis of coronary artery of augustine heart without angina pectoris chronic COPD (chronic obstructive pulmonary disease) chronic Hemoptysis acute Nicotine addiction acute Primary snoring acute COPD (chronic obstructive pulmonary disease) [facility] Work Phone: Evaluation note* Diagnosis Onset Date Resolution Status Hemoptysis acute Nicotine addiction acute Primary snoring acute Atherosclerosis of coronary artery of augustine heart without angina pectoris chronic COPD (chronic obstructive pulmonary disease) chronic Hemoptysis acute Nicotine addiction acute Primary snoring acute COPD (chronic obstructive pulmonary disease) chronic Anxiety chronic CAD (coronary artery disease) chronic COPD (chronic obstructive pulmonary disease) chronic Essential hypertension chron ic Hyperlipidemia chronic Nicotine dependence chronic Presence of stent in coronary artery January, [facility] Work Phone: Evaluation note* Diagnosis Onset Date Resolution Status Primary snoring acute Atherosclerosis of coronary artery of augustine heart without angina pectoris chronic COPD (chronic [...] Chronic cough chronic Hemoptysis chronic Nicotine addiction [facility] Work Phone: Evaluation note* Diagnosis Onset [...] Presence of stent in coronary artery January, [facility] Work Phone: Evaluation note* Diagnosis Onset [...] disease) chronic Nicotine dependence, cigarettes, uncomplicated chronic [facility] Work Phone: Evaluation note* Diagnosis Fall, initial encounter- Primary Fall, initial encounter Concussion Unspecified concussion Back pain Unspecified backache [facility] N[facility] No data available for this section [facility] Hospital Discharge instructions Additional Instructions Your workup today showed no sign of heart damage and no sign of blood clot. It did document lung changes consistent with COPD but no pneumonia or hole in your lung. Continue all of your medication as directed by your doctor and return to the ER should [facility] any [facility] Work Phone: Hospital Discharge instructions No data available for this section [facility] Note* SYSTEM: SIGN SYSTEM: SIGN, MODIFY SYSTEM: MODIFY, SIGN SYSTEM: SIGN, MODIFY SYSTEM: MODIFY, VERIFY Event Display: Cardiac Catheterization -CV Authored Date: [id number] [facility] Progress note No data available for this section [facility] Reason for referral (narrative)* Outpatient Procedure (Routine) - Pending Review Specialty Diagnoses / Procedures Referred By Karliac t Referred To Contact [facility] Diagnoses SOB (shortness of breath) on exertion Procedures SPIROMETRY BASELINE ONLY SPMTRY W/VC EXPIRATORY ZACKARY W/WO MXML VOL VNTJ Yony Frias, [address] [address] [facility] [place] [address] [place], [place] [id number] Referral ID Status Reason Start Date Expiration Date Visits Requested Visits Authorized [id number] Pending Review Auto-Generat ed Referral 08/31/2021 09/30/2022 1 1 * Outpatient Procedure (Routine) - Pending Review Specialty Diagnoses / Procedures Referred By Sully lopez Referred To Contact [facility] Diagnoses Hemoptysis Procedures BRONCHOSCOPY [facility] INCL FLUOR GDNCE DX W/CELL WASHG SPX Yony Frias, [address] [address] [facility] [place] [address] [place], [place] [id number] Referral ID Status Reason Start Date Expiration Date Visits Requested Visits Authorized [id number] Pending Review Auto-Generat ed Referral 08/31/2021 09/30/2022 1 1 [facility] Summary Purpose Family History No Family History [...] July 10, 2022 1 1:29am Power of 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 Apprentice No July 10, 2022 11:29am Advance Directive Response Recorded Date/ Time Advance Directives No September 25, 2 023 6:35am Living Will No January 24 2:02am Power of Ironworker Apprentice No January 24, 2023 2:02am Advance Directive Response Recorded Date/ Time Advance Directives No September 25, 2 023 7:35am Living Will No January 24 3:02am Power of Ironworker Apprentice No January 24, 2023 3:02am Documents on File Type Date Recorded Patient Shopping Inspector Expl anation Code Documentation 10/19/2015 Date Activated Date Inactivated Comments 12/01/2023 9:01 AM 12/01/2023 4:57 PM Chief Complaint and Reason for Visit Chief Complaint COPD Amb Documentation COPD COPD 1 W FU Reason for Visit Hemoptysis Nicotine addiction Primary snoring Atherosclerosis of coronary artery of augustine heart without angina pectoris COPD (chronic obstructive pulmonary disease) Hemoptysis Nicotine addiction Primary snoring COPD (chronic obstructive pulmonary disease) Chief Complaint COPD Amb Documentation COPD COPD 1 W FU Hypersomnia, unspecified ND,STENTS (SELF REF) Reason for Visit Hemoptysis Nicotine addiction Primary snoring Atherosclerosis of coronary artery of augustine heart without angina pectoris COPD (chronic obstructive pulmonary disease) Hemoptysis Nicotine addiction Primary snoring COPD (chronic obstructive pulmonary disease) Anxiety CAD (coronary artery disease) COPD (chronic obstructive pulmonary disease) Essential hypertension Hyperlipidemia Nicotine dependence Presence of stent in coronary artery Chief Complaint COPD Amb Documentation COPD COPD 1 W FU Hypersomnia, unspecified ND,STENTS (SELF REF) COPD COPD/HEMOPTYSIS Reason for Visit Hemoptysis Nicotine addiction Primary snoring Atherosclerosis of coronary artery of augustine heart without angina pectoris COPD (chronic obstructive pulmonary disease) Hemoptysis Nicotine addiction Primary snoring COPD (chronic obstructive pulmonary disease) Anxiety CAD (coronary artery disease) COPD (chronic obstructive pulmonary disease) Essential hypertension Hyperlipidemia Nicotine dependence Presence of stent in coronary artery Chief Complaint COPD Amb Documentation COPD COPD 1 W FU Hypersomnia, unspecified ND,STENTS (SELF REF) COPD COPD/HEMOPTYSIS nv DHARMESH; AUTO CPAP *DEVICE TAGGED INT LABS HEART DISEASE HEART DISEASE Reason for Visit Hemoptysis Nicotine addiction Primary snoring Atherosclerosis of coronary artery of augustine heart without angina pectoris COPD (chronic obstructive pulmonary disease) Hemoptysis Nicotine addiction Primary snoring COPD (chronic obstructive pulmonary disease) Anxiety CAD (coronary artery disease) COPD (chronic obstructive pulmonary disease) Essential hypertension Hyperlipidemia Nicotine dependence Presence of stent in coronary artery Chief Complaint COPD Amb Documentation COPD COPD 1 W FU Hypersomnia, unspecified ND,STENTS (SELF REF) COPD COPD/HEMOPTYSIS nv DHARMESH; AUTO CPAP *DEVICE TAGGED INT LABS HEART DISEASE HEART DISEASE COPD COPD Reason for Visit Hemoptysis Nicotine addiction Primary snoring Atherosclerosis of coronary artery of augustine heart without angina pectoris COPD (chronic obstructive pulmonary disease) Hemoptysis Nicotine addiction Primary snoring COPD (chronic obstructive pulmonary disease) Anxiety CAD (coronary artery disease) COPD (chronic obstructive pulmonary disease) Essential hypertension Hyperlipidemia Nicotine dependence Presence of stent in coronary artery Chief Complaint COPD Amb Documentation COPD COPD 1 W FU Hypersomnia, unspecified ND,STENTS (SELF REF) COPD COPD/HEMOPTYSIS nv DHARMESH; AUTO CPAP *DEVICE TAGGED INT LABS HEART DISEASE HEART DISEASE COPD COPD 3 M FU Reason for Visit Primary snoring Atherosclerosis of coronary artery of augustine heart without angina pectoris COPD (chronic obstructive [...] Complaint 2 M FU Chest tightness, HTN LAlexey MELENDEZ cp 4 wk fu per [facility] [...] section and content) DATE CREATED AUTHOR 08/14/2017 [facility] DATE CREATED AUTHOR AUTHOR'S ORGANIZ ATION 08/15/2017 [facility] DATE CREATED AUTHOR AUTHOR'S ORGANIZ ATION 05/13/2021 [facility] DATE CREATED AUTHOR AUTHOR'S ORGANIZ ATION 09/07/2021 [facility] DATE CREATED AUTHOR AUTHOR'S ORGANIZ ATION 03/26/2022 [facility] DATE CREATED AUTHOR AUTHOR'S ORGANIZ ATION 10/18/2022 [facility] DATE CREATED AUTHOR AUTHOR'S ORGANIZ ATION 12/09/2023 [facility] DATE CREATED AUTHOR AUTHOR'S ORGANIZ ATION 01/13/2024 [facility] DATE CREATED AUTHOR AUTHOR'S ORGANIZ ATION 11/03/2024 [facility] DATE CREATED AUTHOR AUTHOR'S ORGANIZ ATION 12/30/2024 [facility] Source Comments (unrecognize d section and content) In the event this informatio n is protected by the Federal Confidentiality of Alcohol and Drug Abuse Patient Records regulations: The Federal rules restrict any use of the information to criminally investigate or prosecute any alcohol or drug abuse patient.[facility] the event this information is protected by the Federal Confidentiality of Alcohol and Drug Abuse Patient Records regulations: The Federal rules restrict any use of the information to criminally investigate or prosecute any alcohol or drug abuse patient.[facility] the event this information is protected by the Federal Confidentiality of Alcohol and Drug Abuse Patient Records regulations: The Federal rules restrict any use of the information to criminally investigate or prosecute any alcohol or drug abuse patient.[facility] the event this information is protected by the Federal Confidentiality of Alcohol and Drug Abuse Patient Records regulations: The Federal rules restrict any use of the information to criminally investigate or prosecute any alcohol or drug abuse patient.[facility] Reason for Visit (unrecogniz ed section and content) Reason Comments New Patient Reason Comments Smoking Cessation Reason Comments Procedure Reason Comments Abdominal Injury Transfer from [facility] for trauma consult. Fall from tree stand 15-17 feet. 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 Julio Cesar Alaniz MD [address] [address] [address] [facility] [address] [place] [address] Referral ID Status Reason Start Date Expiration Date Visits Re quested Visits Authorized [id number] 1 1 Care Teams (unrecognized sec tion [...] MD Attending Provider, Referring Pr ovider Active Film Recordist Relationship Specialty Start Date End Date Danilo Alvarado [address] [address] PCP - General Family Practice 08/31/21 Film Recordist Relationship Specialty Start Date End Date Danilo Alvarado [address] [phone] PCP - General Family Practice 08/31/21 Film Recordist Relationship Specialty Start Date End Date Danilo Alvarado DO [address] [place] [address] PCP - General Family Practice 08/31/21 Film Recordist Relationship Specialty Start Date End Date Danilo Alvarado DO [address] [place] [address] PCP - General Family Practice 08/31/21 Team Status: Active Member Role Status Dates Dr. Mark Alvarado MD Primary Care Provider Active Team Status: Active Member Role Status Dates Dr. Mark Alvarado MD Primary Care Provider Active Dr. Jonh Boyd MD Attending Provider, Referring Provider Active Team Status: Active Member Role Status Dates Dr. Jonh Boyd MD Referring Provider, Other Pro vider Active [facility] Primary Care Provider Active Dr. Bahman Alvarado DO Attending Provider Active Team Status: Inactive Member Role Status Dates Dr. Jonh Boyd MD Attending Provider, Referring Provider Active [facility] Primary Care Provider Active Team Status: Inactive Member Role Status Dates Dr. Mark Alvarado MD Referring Provider Active Dr. Jonh Boyd MD Attending Provider Active [facility] Primary Care Provider Active Team Status: Inactive Member Role Status Dates Dr. Bria Olsen MD Attending Provider Active [facility] Primary Care Provider Active Team Status: Inactive Member Role Status Dates Frances Fuchs CONTAMINATED LAND CONSULTANT, CONTAMINATED LAND CONSULTANT-C Attending Provider Active Team Status: Inactive Member Role Status Dates Frances Fuchs CONTAMINATED LAND CONSULTANT, CONTAMINATED LAND CONSULTANT-C Attending Provider Active Dr. Tim Alvarado DO Primary Care Provider, Referr ing Provider Active Team Status: Inactive Member Role Status Dates Dr. Bria Olsen MD Attending Provider Active Team Status: Active Member Role Status Dates Dr. Estevan Dixon MD Attending Provider Active Dr. Bria Oslen MD Referring Provider Active Team Status: Inactive Member Role Status Dates Out of [facility] Doctor Primary Care Provider, Referring Pr ovider Active Elda Villegas CONTAMINATED LAND CONSULTANT, CONTAMINATED LAND CONSULTANT-C Attending Provider Active Team Status: Inactive Member Role Status Dates Frances Fuchs CONTAMINATED LAND CONSULTANT, CONTAMINATED LAND CONSULTANT-C Attending Provider, Referrin g Provider Active [facility] Primary Care Provider Active Team Status: Inactive Member Role Status Dates Dr. Bria Olsen MD Attending Provider, Referring Pr ovider Active Team Status: Active Member Role Status Dates Elda Villegas CONTAMINATED LAND CONSULTANT, CONTAMINATED LAND CONSULTANT-C Attending Provider, Referring Pro vider Active [facility] Primary Care Provider Active Team Status: Inactive Member Role Status Dates Dr. Jose R Schmitz DO Emergency Provider Active [facility] Primary Care Provider Active Team Status: Inactive Member Role Status Dates Elda Villegas CONTAMINATED LAND CONSULTANT, CONTAMINATED LAND CONSULTANT-C Attending Provider, Referring Pro vider Active [facility] Primary Care Provider Active Team Status: Inactive Member Role Status Dates Out of [facility] Doctor Referring Provider Active Dr. Bahman Alvarado DO Attending Provider Active Team Status: Inactive Member Role Status Dates Out of [facility] Doctor Referring Provider Active Elda Villegas CONTAMINATED LAND CONSULTANT, CONTAMINATED LAND CONSULTANT-C Attending Provider Active [facility] Primary Care [...] Provide r, Attending Provider, Referring Provider Active Film Recordist Relationship Specialty Start Date End Date Dylan Magallon [address] [facility] [address] [place] [address] PCP - General 04/18/16 Care Team (unrecognized sect ion and content) Care Team Personnel Name: DANILO ALVARADO MD Member Role: Primary Care Physician Address: Address: [address] [place] [address]- Care Team Related Persons Name: KO CHOWDHURY [...] (Given - Provid er: Heydi Vallejo, Learning Services Coordinator) melatonin tablet 3 mg 3 mg, Oral, Nightly PRN, sleep, Starting on 12/01/23 at 0901 naloxone (Narcan) injection 0.4 mg 0.4 mg, IntraVENous, Every 5 min PRN, opioid reversal, respiratory depression, Starting on 12/01/23 at 0907, +++ For RR <10, pinpoint pupils, over sedation for opioid reversal - MUST notify contract associate manager provider immediately after first dose, may give [...] hours PRN, moderate pain (4-6), Starting on 10/12/24 at 0901 oxyCODONE (Roxicodone) immediate release tablet [...] BE BASED ON THE PRIMARY CLINICAL RECORDS. [employer] [facility]. provides no warranty or guarantee of the accuracy or completeness of information in this document.
[2025-01-17 20:51] VITALS: BP 141/81; PULSE 85; RESP 24; TEMP 36.8; O2SAT 97
[2025-01-17 21:00] LABS: Anion Gap 13 (5-15); BUN 13 mg/dL (4-19); BUN/Creat Ratio 11.4 RATIO (10-20); Calcium,Total 9.4 mg/dL (7.6-11.0); Carbon Dioxide 26.9 mmol/L (21.0-32.0); Chloride 100 mmol/L (98-108); Estimated Creatinine Clearance 97.15 ml/min (50-250); Glucose 106 mg/dL (70-99); Potassium 4.1 mmol/L (3.3-5.1); Troponin T High Sensitivity < 6 ng/L (<=22)
[2025-01-17] MEDS: Ketorolac 30 MG/ML Syringe IV (21:15)
[2025-01-17 22:00] VITALS: BP 101/62; PULSE 85; RESP 22; TEMP 37; O2SAT 95
[2025-01-17 22:27] LABS: Troponin T High Sens 2 HR < 6 ng/L (<=22)
[2025-01-17 22:54] VITALS: BP 118/73; PULSE 93; RESP 20; TEMP 37; O2SAT 97
== END 2025-01-17 23:01 | disposition home or self-care (01) ==
PROVIDERS: Emergency Provider Emergency Medicine; PCP Nurse Practitioner Family; Visit Provider Emergency Medicine
DX: R07.9 Chest pain, unspecified (principal); I11.0 Hypertensive heart disease with heart failure; I50.20 Unspecified systolic (congestive) heart failure; J44.9 Chronic obstructive pulmonary disease, unspecified; I25.10 Atherosclerotic heart disease of native coronary artery without angina pectoris; Z95.5 Presence of coronary angioplasty implant and graft; I25.2 Old myocardial infarction; Z86.73 Personal history of transient ischemic attack (TIA), and cerebral infarction without residual deficits; E78.00 Pure hypercholesterolemia, unspecified; Z99.81 Dependence on supplemental oxygen; Z79.82 Long term (current) use of aspirin; Z79.899 Other long term (current) drug therapy; K21.9 Gastro-esophageal reflux disease without esophagitis; Z79.02 Long term (current) use of antithrombotics/antiplatelets; Z79.51 Long term (current) use of inhaled steroids; F17.210 Nicotine dependence, cigarettes, uncomplicated; Z87.01 Personal history of pneumonia (recurrent); R06.02 Shortness of breath
CPT/HCPCS: 71046; 71275; 80048; 84484; 85025; 87631; 93005; 96374; 99284; Q9967; A4216